=== PATIENT | male | born 1955 | race Caucasian/White ===

== ENCOUNTER → 2018-08-11 06:55 | Outpatient (CLI) | payer OTHER, SELFPAY ==
--- NOTE | 2018-08-11 07:05 | CT_ITS ---
STUDY: LOW DOSE CT LUNG CANCER SCREENING REASON FOR EXAM: Male, 63 years old. Previous smoker. 30 pack year smoking history RADIATION DOSAGE (If Supplied By Facility): CTDIvol = ( 4.02 ) mGy, DLP = ( 146.97 ) mGycm TECHNIQUE: No contrast was administered. Low dose technique was utilized (average mAS-38 and kVp 120). 1.25 mm axial source images with a slice interval of 1.25-mm were reconstructed in lung windows. 2.5 mm axial source images with a slice interval of 2.5-mm were reconstructed in lung windows. 5.0 mm axial source images with a slice interval of 5.0-mm were reconstructed in soft tissue windows. Nodule measured using lung windows on PACS and/or independent workstation with automated measurement of minimum and maximum diameter. Nodule measurement reported as average diameter rounded to the nearest whole number. Growth is defined as an increase ins size of greater than 1.5 mm. COMPARISON: None. NODULES: There is a 2.2 cm x 1.2 cm slightly irregular nodular density in the anterior aspect of the left lower lobe as seen on axial image #202. This abuts the pleural surface. This most likely represents a focal area of scarring. Emphysema: Hyperinflation. Mild degree of emphysematous changes more prominent in the upper lobes. Aorta: Atherosclerotic plaques. Coronary arteries: Coronary artery calcification. Mediastinal nodes: Small mediastinal lymph nodes. Other chest and abdominal findings: Mildly dilated esophagus with the fluid or debris in the mid esophagus. CT/Low Dose CT Lung Screening IMPRESSION: Lung-RADS category 4A - Screening at 3 months with LDCT or evaluation with PET/CT may be used. IMPORTANT NOTES FOR USE: ACR Lung-RADS Version 1.0 Assessment Categories Release Date: November 15, 2013 Category: Coded 0-4 bases on nodule(s) with highest degree of suspicion. Negative screen is defined as categories 1 and 2; a positive screen is defined as categories 3 and 4. Category 3 and 4A nodules that are unchanged on interval CT should be coded as category 2, and individuals returned to screening in 12 months. Category 4X: Category 3 or 4 nodules with additional imaging findings that increase the suspicion of lung cancer, such as spiculation, GGN that doubles in size in 1 year, enlarged lymph notes, etc. Category Modifiers: S (significant finding unrelated to lung cancer) and C (prior history of treated lung cancer) may be added to the 0-4 Lung-RADS Electronically Signed: Pedro Finley MD at 9:40 EST Tel [phone], Service support ,
--- OUTSIDE RECORDS SUMMARY | 2018-10-13 07:10 | XMS RPT_ITS ---
:1955 Author Organization [facility] Care Team Providers Name Role Phone Tee Mahmood Attending Unavailable Tee Mahmood Referring Unavailable LJ TAYLOR Primary Care Unavailable PROBLEMS PROBLEMS No Problem Records FoundPROCEDURES PROCEDURES No Procedure Records FoundRESULTS RESULTS LOW DOSE CT LUNG Observed: 08/11/2018 Status: F Source: [place] SCREENING 7:05 AM [facility] REPOSITORY [facility] Imaging Services [address] [place] [address] Lung Screening MR#: [id number] Acct: [id number] Name: TL ANN Rep #: [id number] : 1955 M 63 From: Pedro Finley MD PCP: Lj Taylor MD Status: [facility] Study: Low Dose CT Lung Screening Date of Exam: 08/11/18 Exam# [id number] Ordering Dr: Tee Mahmood MD STUDY: LOW DOSE CT LUNG CANCER SCREENING REASON FOR EXAM: Male, 63 years old. Previous smoker. 30 pack year smoking history RADIATION DOSAGE (If Supplied By Facility): CTDIvol = ( 4.02 ) mGy, DLP = ( 146.97 ) mGycm TECHNIQUE: No contrast was administered. Low dose technique was utilized (average mAS-38 and kVp 120). 1.25 mm axial source images with a slice interval of 1.25- mm were reconstructed in lung windows. 2.5 mm axial source images with a slice interval of 2.5-mm were reconstructed in lung windows. 5.0 mm axial source images with a slice interval of 5.0-mm were reconstructed in soft tissue windows. Nodule measured using lung windows on PACS and/or independent workstation with automated measurement of minimum and maximum diameter. Nodule measurement reported as average diameter rounded to the nearest whole number. Growth is defined as an increase ins size of greater than 1.5 mm. COMPARISON: None. NODULES: There is a 2.2 cm x 1.2 cm slightly irregular nodular density in the anterior aspect of the left lower lobe as seen on axial image #202. This abuts the pleural surface. This most likely represents a focal area of scarring. Emphysema: Hyperinflation. Mild degree of emphysematous changes more prominent in the upper lobes. Aorta: Atherosclerotic plaques. Coronary arteries: Coronary artery calcification. Mediastinal nodes: Small mediastinal lymph nodes. Other chest and abdominal findings: Mildly dilated esophagus with the fluid or debris in the mid esophagus. CT/Low Dose CT Lung Screening IMPRESSION: Lung-RADS category 4A - Screening at 3 months with LDCT or evaluation with PET/CT may be used. IMPORTANT NOTES FOR USE: ACR Lung-RADS Version 1.0 Assessment Categories Release Date: November 15, 2013 Category: Coded 0-4 bases on nodule(s) with highest degree of suspicion. Negative screen is defined as categories 1 and 2; a positive screen is defined as categories 3 and 4. Category 3 and 4A nodules that are unchanged on interval CT should be coded as category 2, and individuals returned to screening in 12 months. Category 4X: Category 3 or 4 nodules with additional imaging findings that increase the suspicion of lung cancer, such as spiculation, GGN that doubles in size in 1 year, enlarged lymph notes, etc. Category Modifiers: S (significant finding unrelated to lung cancer) and C (prior history of treated lung cancer) may be added to the 0-4 Lung-RADS Electronically Signed: Pedro Finley MD at 9:40 EST Tel [phone], Service support , CC: Tee Mahmood MD; Lj Taylor MD Window Cutter: Signed ALLERGIES ALLERGIES DATE TYPE / CODE NAME / CODE REACTION SEVERITY SOURCE 05/05/2015 Drug Sulfa Rash Unknown [place] [facility] Allergy/416 ([facility] 299784(SNOM Antibiotics)/F[address]) 6274924(RXNORM) 05/05/2015 Drug shellfish Nausea/Vom/Diar Unknown [facility]/416 [id number] [facility] Repository ED CT) ENCOUNTERS ENCOUNTERS ADMIT/DISCHARGE ACCOUNT ADMITTING ENCOUNTER LOCATION SOURCE NUMBER CLASS 08/11/2018 [id number] Ambulatory [facility] [place] 3 [facility] ing:CT Repository PAYERS PAYERS ENCOUNTER GUARANTOR PAYER SUBSCRIBER SOURCE 08/11/2018 TL Martin Primary TL Miller [id number] Insurance:MEDICAL SETHDOB[id number] Number: [place]ository [place] [id number]: [id number] Date:[id number] [address] [address] [address]CU: 08/11/2018 Secondary NOT GIVENUNK [place] Insurance:SELF PAY [facility] Number: Effective Repository Date:2018-07-30
== END ==
PROVIDERS: Family Provider Family Medicine; PCP Family Medicine; Referring Provider Internal Medicine Pulmonary Disease; Visit Provider Internal Medicine Pulmonary Disease
DX: Z87.891 Personal history of nicotine dependence (principal); Z12.2 Encounter for screening for malignant neoplasm of respiratory organs
CPT/HCPCS: G0297

== ENCOUNTER → 2019-02-08 16:47 | Outpatient (CLI) | payer OTHER, SELFPAY ==
--- NOTE | 2019-02-08 16:51 | CT_ITS ---
STUDY: CT CHEST WITHOUT CONTRAST REASON FOR EXAM: Male, 63 years old. Lung nodule follow-up RADIATION DOSAGE (If Supplied By Facility): CTDIvol = ( 18.98 ) mGy, DLP = ( 692.30 ) mGycm TECHNIQUE: Transaxial imaging was performed without the administration of intravenous contrast material. Individualized dose optimization techniques were used for this CT. COMPARISON: 08/11/2018. FINDINGS: Lung windows show underlying emphysema with bleb formation in both upper lobes. Stable appearance of a previously described 2.2 x 1.2 cm irregular nodular density in the anterior aspect of the left lower lobe best seen on axial image 91. No other noncalcified mass or nodule noted. No organized infiltrate. There are scattered interstitial changes in the lung bases. Soft tissue windows show normal-appearing thyroid gland. There are scattered subcentimeter axillary and mediastinal lymph nodes. There are calcified coronary vessels. No pleural or pericardial effusions. There are multi-level degenerative changes of the thoracic spine. Cuts through the upper abdomen show fatty infiltration of the liver without a discrete lesion. CT/Chest without Contrast IMPRESSION: Stable appearance of a 2.2 x 1.2 cm irregular nodule in the anterior segment of the left lower lobe best seen on axial image 91. Another six-month follow-up is recommended to assure stability. No new suspicious mass or nodule. No organized infiltrate or effusion Calcified coronary vessels Degenerative bony changes Fatty liver Electronically Signed: Miles Mosley MD at 7:36 EDT , Service support ,
== END ==
PROVIDERS: Family Provider Family Medicine; PCP Family Medicine; Referring Provider Internal Medicine Pulmonary Disease; Visit Provider Internal Medicine Pulmonary Disease
DX: R91.1 Solitary pulmonary nodule (principal)
CPT/HCPCS: 71250

== ENCOUNTER → 2020-07-13 09:35 | Outpatient (CLI) | payer OTHER, SELFPAY ==
[2015-05-05 07:43] VITALS: BMI 29.0
[2020-07-13 12:05] LABS: Absolute Lymphocyte Count 1.88 X10^3/uL (0.83-4.51); Absolute Neutrophil Count 5.4 X10^3/uL (2.0-7.7); Basophil# 0.02 X10^3/uL; Basophil% 0.3 % (0-1); Eosinophil# 0.11 X10^3/uL; Eosinophils% 1.4 % (0-5); Hematocrit 39.3 % (40-54); Hemoglobin 12.6 g/dL (13.0-16.5); Lymphocyte # 1.88 X10^3/ul (4.0); Lymphocyte % 23.8 % (19-41); Mean Corp Hgb Conc 32.1 g/dL (32-36); Mean Corpuscular Hgb 30.1 pg (27.0-32.0); Mean Corpuscular Volume 93.8 fL (80-94); Monocyte% 6.3 % (0-10); NRBC Flagged by Analyzer 0 % (0-5); Neutrophil # 5.35 X10^3/uL (2.7-7.7); Neutrophil % 67.8 % (47-70); Platelet Count 320 K/mm3 (150-450); RBC Distribution Width CV 14.3 % (11.6-14.6); RBC Distribution Width SD 48.5 fl (35.1-43.9); Red Blood Count 4.19 M/mm3 (4.6-6.2); White Blood Count 7.9 K/mm3 (4.4-11.0)
[2020-07-13 12:11] LABS: ALB/GLOB Ratio 0.9 RATIO (0.9-2.4); AST(SGOT) 23 U/L (15-37); Alanine Aminotransfer ALT/SGPT 37 U/L (16-61); Albumin, Serum 3.6 g/dL (3.2-5.0); Alkaline Phosphatase 58 U/L (45-117); Anion Gap 4 (5-15); BUN 16 mg/dL (7-18); BUN/Creat Ratio 15.7 RATIO (10-20); Calcium,Total 8.7 mg/dL (8.5-10.1); Chloride 109 mmol/L (98-107); Cholesterol 180 mg/dL (200); Creatinine, Serum 1.02 mg/dL (0.70-1.30); EST Glomerular Filtration Rate 77 mL/min (>60); Est Glom Filt Rate - Afr Amer 94 mL/min (>60); Globulin 4.1 g/dL (2.2-4.2); Glucose 89 mg/dL (74-106); High Density Lipoprotein 36 mg/dL; Potassium 4.1 mmol/L (3.5-5.1); Protein, Total 7.7 g/dL (6.4-8.2); Sodium Level 139 mmol/L (136-145); Triglycerides 147 mg/dL; Very Low Density Lipoprotein 29 mg/dL (5-40)
[2020-07-13 12:21] LABS: Microalbumin,Random Urine 19.7 mg/L (NO RANGE EST.); Microalbumin:Creatinine Ratio 10.4 mg/g CRE (<30 mg/g CRE)
[2020-07-17 10:44] LABS: Ferritin 42 ng/mL (26-388)
== END ==
PROVIDERS: PCP Family Medicine; Referring Provider Family Medicine; Visit Provider Family Medicine
DX: I10 Essential (primary) hypertension (principal); K52.9 Noninfective gastroenteritis and colitis, unspecified; D64.9 Anemia, unspecified
CPT/HCPCS: 36415; 80053; 80061; 82043; 82570; 82728; 85025

== ENCOUNTER → 2020-08-24 07:04 | Outpatient (CLI) | payer OTHER, SELFPAY ==
--- NOTE | 2020-08-24 07:09 | CT_ITS ---
STUDY: CT MAXILLOFACIAL SINUSES REASON FOR EXAM: Male, 65 years old. --BENIGN NEOPLASM OF MAXILLARY SINUS RADIATION DOSAGE (If Supplied By Facility): CTDIvol = ( 33.06 ) mGy, DLP = ( 800.79 ) mGycm TECHNIQUE: The patient was scanned in a multi detector CT scanner. High resolution axial imaging was performed without the administration of intravenous contrast material. Sagittal and coronal images were reconstructed. Individualized dose optimization techniques were used for this CT. COMPARISON: None. FINDINGS: Calcified atherosclerotic plaques of the carotid bifurcations bilaterally. FRONTAL SINUSES: Normal aeration, without mucosal inflammatory disease. ETHMOIDAL SINUSES: Partial resection of the ethmoid sinuses with evidence of a partial opacification of the ethmoid sinuses more prominent superiorly. There is also evidence of a 2 cm x 1.8 cm x 1.8 cm rounded soft tissue mass in the superior anterior aspect of the right ethmoid sinus. MAXILLARY SINUSES: There is evidence of prior resection of the medial brown of the maxillary sinuses bilaterally. There is a 2.7 cm x 1.9 cm x 1.8 cm rounded soft tissue mass arising from the medial wall of the right maxillary sinus extending into the right nasal cavity. There is mucosal thickening of both maxillary sinuses. SPHENOIDAL SINUSES: Mucosal thickening of the right sphenoid sinus. There is patency of the bilateral maxillary infundibuli with normal uncinate processes, ethmoid bullae, and hiatus semilunaris. Normal bilateral middle turbinates. Normal bilateral inferior turbinates. There is a left sided nasal septal deviation, but without a nasal septal spur. There is patency of the bilateral nasal airways. The visualized bilateral orbital contents are normal. CT/Sinus/Facial Bone IMPRESSION: 2.7 cm x 1.9 cm 1.8 cm rounded soft tissue mass arising from the medial wall of the right maxillary sinus extending into the right nasal cavity. 2 cm x 1.8 cm x 1.8 cm soft tissue mass in the superior anterior aspect of the right ethmoid sinus. Electronically Signed: Pedro Finley MD at 8:37 EST , Service support ,
== END ==
PROVIDERS: PCP Family Medicine; Referring Provider Otolaryngology; Visit Provider Otolaryngology
DX: D14.0 Benign neoplasm of middle ear, nasal cavity and accessory sinuses (principal)
CPT/HCPCS: 70486

== ENCOUNTER → 2020-09-15 13:00 | Outpatient (CLI) | payer OTHER, SELFPAY ==
--- NOTE | 2020-09-20 09:28 | EKG12_ITS ---
Test Reason : PREOP Blood Pressure : / mmHG Vent. Rate : 073 BPM Atrial Rate : 073 BPM P-R Int : 152 ms QRS Dur : 134 ms QT Int : 434 ms P-R-T Axes : 067 049 068 degrees QTc Int : 478 ms Normal sinus rhythm Left bundle branch block Abnormal ECG Confirmed by YULIA BAY, CLAUS ([id number]), supervising film or videotape editor ANDRADE AVALOS ([id number]) on 09/21/2020 1:04:24 PM Referred By: Zechariah Ramey Confirmed By:CLAUS BENDER MD
[2020-09-20 10:51] LABS: Anion Gap 6 (5-15); BUN 15 mg/dL (7-18); BUN/Creat Ratio 13.2 RATIO (10-20); Calcium,Total 8.9 mg/dL (8.5-10.1); Chloride 108 mmol/L (98-107); Creatinine, Serum 1.14 mg/dL (0.70-1.30); EST Glomerular Filtration Rate 68 mL/min (>60); Est Glom Filt Rate - Afr Amer 82 mL/min (>60); Ferritin 37 ng/mL (26-388); Glucose 92 mg/dL (74-106); Sodium Level 142 mmol/L (136-145)
== END ==
PROVIDERS: PCP Family Medicine; Referring Provider Otolaryngology; Visit Provider Otolaryngology
DX: D14.0 Benign neoplasm of middle ear, nasal cavity and accessory sinuses (principal); D64.9 Anemia, unspecified; Z20.828 Contact with and (suspected) exposure to other viral communicable diseases
CPT/HCPCS: 36415; 80048; 82728; 87426; 93005; C9803

== ENCOUNTER → 2020-10-16 06:46 | Outpatient (CLI) | payer OTHER, SELFPAY ==
[2020-09-27 15:52] VITALS: BMI 34.5
--- NOTE | 2020-10-16 06:47 | ECHOD_ITS ---
Reason For Study: Arrhythmia Left Ventricle Normal LV size. Left ventricular systolic function is normal. The estimated ejection fraction is 55 %. Stage 1 diastolic dysfunction. No regional wall motion abnormalities noted. Right Ventricle Normal RV size. Normal systolic function. Atria Normal left atrium. Normal right atrium. Mitral Valve Normal mitral valve. Tricuspid Valve Normal tricuspid valve. Aortic Valve Normal aortic valve. Pulmonic Valve Normal pulmonic valve. Great Vessels Normal aortic root. The pulmonary artery is normal size. Normal inferior vena cava. Pericardium/Pleural No pericardial effusion. MMode/2D Measurements & Calculations LVIDd: 4.6 cm IVSd: 1.3 cm Ao root diam: 3.2 cm LVIDs: 3.1 cm LVPWd: 1.1 cm RVDd: 4.0 cm FS: 31.1 % LAV(MOD-bp): 58.0 ml LVAd ap4: 30.3 cm2 SV(MOD-sp4): 50.5 ml LAV(MOD-bp) Indexed: 26.1 ml/m2 EDV(MOD-sp4): 91.4 ml LAV(MOD-sp2): 56.4 ml EDV(sp4-el): 93.3 ml LAV(MOD-sp4): 53.6 ml LVAs ap4: 18.4 cm2 ESV(MOD-sp4): 40.9 ml ESV(sp4-el): 40.3 ml EF(MOD-sp4): 55.3 % EF(sp4-el): 56.8 % SV(sp4-el): 53.0 ml LA dimension(2D): 4.1 cm LA A4 area: 18.9 cm2 RA A4 area: 14.3 cm2 Doppler Measurements & Calculations MV E max aly: 85.6 cm/sec Lat Peak E' Aly: 7.6 cm/sec Med Peak E' Aly: 5.4 cm/sec MV A max aly: 102.6 cm/sec E/E' lat: 11.3 E/E' med: 16.0 MV E/A: 0.83 Ao V2 max: 165.6 cm/sec LV V1 max: 103.1 cm/sec PA V2 max: 121.3 cm/sec Ao max P.0 mmHg LV V1 max P.2 mmHg Ao V2 mean: 120.0 cm/sec Ao mean P.2 mmHg Ao V2 VTI: 37.5 cm ECHO/Echo Complete Interpretation Summary Normal LV size. Left ventricular systolic function is normal. The estimated ejection fraction is 55 %. Stage 1 diastolic dysfunction. Ordering Physician: Eric Buenrostro Referring Physician: Zechariah Vasquez Performed By: Hiral Hernandez, THERESA, RVT
--- NOTE | 2020-10-16 16:47 | STRESSREP ---
Stress Test Report Pharmacologic myocardial perfusion stress test. 65-year-old man with a history of left bundle branch block. Stress protocol: Resting EKG demonstrates normal sinus rhythm with a rate of 67 bpm and left bundle branch block noted. Resting blood pressure is 132/86 mmHg. 0.4 mg of regadenoson was infused per usual protocol followed by rapid intravenous saline flush injection continuous EKG monitoring was performed. The maximum heart rate attained was 90 bpm which was 58% of max impacted heart rate the maximum workload was 1 metabolic equivalent. At rest there were no ST or T wave changes noted to suggest abnormal flow reserve and at peak infusion nonspecific ST changes were noted with did not meet the criteria for ischemia. The final blood pressure was 118/80 mmHg. Myocardial perfusion protocol. 14.1 mCi of technetium 99m sestamibi was injected at rest. 0.4 mg of regadenoson was infused per usual protocol. At peak infusion 44.6 mCi of technetium 99m sestamibi was injected stress images were obtained stress and rest images were reconstructed and compared in the short axis vertical long and horizontal long axis. Gated images were also obtained per Perfusion SPECT analysis: Review of the images demonstrate normal uptake of tracer with a defect noted in the inferior wall on the stress images and present also on the rest images to a similar extent. On the stress images as well as the resting images there was normal perfusion noted in all areas namely the anterior wall septum and lateral wall. A previous inferior wall infarct cannot be completely excluded. Gated SPECT analysis: The gated ejection fraction was 49%. Conclusion: Pharmacologic myocardial perfusion stress test with no obvious ischemia noted. Previous inferior infarct cannot be completely excluded. Low normal ejection fraction.
== END ==
PROVIDERS: PCP Family Medicine; Referring Provider Internal Medicine Cardiovascular Disease; Visit Provider Internal Medicine Cardiovascular Disease
DX: Z01.810 Encounter for preprocedural cardiovascular examination (principal); I44.7 Left bundle-branch block, unspecified; R94.31 Abnormal electrocardiogram [ECG] [EKG]
CPT/HCPCS: 78452; 93017; 93306; A9500; A4216; J2785

== ENCOUNTER 2020-11-10 08:49 | Day surgery (SDC) | payer OTHER, SELFPAY ==
[2020-09-27 15:52] VITALS: BMI 34.5
[2020-11-10] VITALS (7 sets, daily range): BP systolic 101–143; BP diastolic 65–77; PULSE 84–99; RESP 16; TEMP 36.2–36.8; O2SAT 92–99; BMI 34.4
--- NOTE | 2020-11-10 | MASS_PTH ---
[id number] U#:[id number] AGE/SX: 65/M ROOM: RE11/10/[address]: Dr. Zechariah Ramey MD : 1955 BED: DIS: 11/10/2020 SPEC #: [id number] RECD: 11/10/20 11:13 STATUS: ARMIDA RE #: [id number] HERBER: 11/10/20 00:[address]: Zechariah Ramey DEPT: SURGICAL PATHOLOGY RECD BY: Marlin Norton ENTERED: 11/10/20 12:27 SP TYPE: Mass OTHR DR: Dr. Zechariah Vasquez MD Tissues: A - Maxilla, NOS B - Skin of face, NOS C - Skin of face, NOS D - Ethmoid sinus, NOS E - Ethmoid sinus, NOS F - LIPOMA OF CORD Procedures: Decalcification bone/plaque Frozen Section (charge) Frozen Section Add'l ([facility]) Surgery Specimen Level III Surgery Specimen Level IV HEADER OPERATION: Maxillectomy, excision lipoma PRE-OP DIAGNOSIS: Benign neoplasm of maxillary sinus; chronic ethmoid sinusitis; lipoma of head and neck; lesion left cheek TISSUE SUBMITTED: A - Right maxillary mass, FS, B - Left cheek lesion, FS, C - New deep margin, FS, D - Right sinus contents, E - Left sinus contents, F - Forehead lipoma FROZEN SECTION DIAGNOSIS A. Right maxillary mass, biopsy: Consistent with benign sinonasal polyp. AM:rohini 11/10/2020 B. Left cheek lesion, biopsy: Basal cell carcinoma. Deep margin is positive for tumor. :rohini 11/10/2020 C. New deep margin: New deep margin is negative for tumor. : 11/10/2020 Case has been reviewed in consultation with Dr. Olivo who concurs with the above diagnosis. IDC:AM MICROSCOPIC DIAGNOSIS A. Right maxillary mass, biopsy: Consistent with benign mucosal polyp. See comment. B. Left cheek lesion, biopsy: Basal cell carcinoma. See comment. C. New deep margin: Focal area of residual basal cell carcinoma. New deep margin is negative for tumor. D. Right sinus contents: Fragments of respiratory mucosa with mild chronic inflammation and bone. E. Left sinus contents: Fragments of respiratory mucosa with mild chronic inflammation and bone. F. Forehead lipoma, biopsy: Mature adipose tissue, consistent with lipoma. :rohini 11/14/2020 COMMENT A. The specimen also shows a portion of bone in the deeper portion of the polyp. B. The tumor is present at the deep resection margin. Case has been reviewed in consultation with Dr. Olivo who concurs with the above diagnosis. IDC:AM MICROSCOPIC DESCRIPTION Slides are reviewed. GROSS DESCRIPTION A - Received fresh for frozen section consultation labeled with the patient's name is a specimen designated right maxillary mass. The specimen consists of a polypoid fragment of glistening, valadez tissue measuring 3.5 x 3.5 x 1.5 cm. Digital Marketing Coordinator sections are submitted for frozen section consultation in two cassettes. The remainder of the specimen is submitted in its entirety in cassettes 3 & 4. / AM: 11/10/20 B - Received fresh for frozen section diagnosis labeled with the patient's name is a specimen designated left cheek lesion. The specimen consists of a piece of valadez-white skin ellipse measuring 1.5 x 0.6 x 0.3 cm. The specimen is inked, serially sectioned and submitted entirely for frozen section diagnosis in one cassette. / SJ: 11/10/20 C - Received fresh for frozen section diagnosis labeled with the patient's name is a specimen designated ink side is the margin, unmarked in deep margin. The specimen consists of a piece of valadez soft tissue measuring 1 x 0.7 x 0.2 cm. The deep margin is inked blue. The specimen is serially sectioned and submitted entirely for frozen section diagnosis in one cassette. / SJ: 11/10/20 D - Received in fixative is one container labeled with the patient's name and designated right sinus contents. The specimen consists of multiple irregular fragments of hemorrhagic soft tissue mixed with fragments of bone that in aggregate measure 4 x 4 x 1.5 cm. Digital Marketing Coordinator tissue is submitted in two cassettes after decalcification. / :rohini 11/13/20 E - Received in fixative is one container labeled with the patient's name and designated left sinus contents. The specimen consists of multiple fragments of hemorrhagic soft tissue mixed with possible fragments of bone that in aggregate measure 4 x 5 x 1 cm. Digital Marketing Coordinator tissue is submitted in two cassettes after short decalcification. / :rohini 11/13/20 F Received in fixative is one container labeled with the patient's name and designated forehead lipoma. The specimen consists of an ovoid piece of valadez-yellow adipose tissue measuring 2.5 x 2 x 0.6 cm. Sections reveal yellow adipose cut surfaces without area of hemorrhage, cystic degeneration or necrosis. The entire specimen is submitted in two cassettes. / SJ:rohini 11/13/20 TC:0 CPT: 36482 x3, 66362 x1, 47681 x5, 97722, 10476 x2
[2020-11-10] MEDS: Lactated Ringers 1,000 ML 100 ML IV (09:32)
[2020-11-10] MEDS: Lidocaine 1% /Epi 1:100 (20ml) 20 ML Vial ×2 (11:00→12:15)
[2020-11-10] MEDS: Oxymetazoline 0.05% 1 SPRAY SPRAY.BTL 15 SPRAY (11:00)
[2020-11-10] MEDS: Lidocaine 4% 50 ML Bottle (11:00)
--- NOTE | 2020-11-10 13:08 | PCM.OPRPT ---
Problem List (1) Chronic ethmoidal sinusitis Status: Chronic (2) Polyp of nasal cavity Status: Acute (3) Chronic maxillary sinusitis Status: Chronic (4) Benign lipomatous neoplasm of skin and subcutaneous tissue of head, face and neck Status: Acute (5) Basal cell carcinoma, face Status: Acute Report of Operation Date of Procedure: 11/10/20 Pre-Operative Diagnosis: Mass of right maxillary sinus, nasal polyps, chronic bilateral ethmoid sinusitis, lipoma right forehead, basal cell carcinoma of left cheek Post-Operative Diagnosis: Same Surgery/Procedure Performed:: Right maxillary antrostomy with tissue removal, bilateral endoscopic total ethmoidectomy with navigational guidance, excision of lipoma 3 x 4 cm of right forehead, excision of basal cell carcinoma of left cheek 1 x 2 cm Description of Surgical Findings:: Heber is a 65-year-old male with a distant history of nasal polyposis who presents with a CT finding showing a bone eroding mass of the right maxillary sinus as well as chronic ethmoid sinus disease. Additionally he was noted to have a lipoma of the right forehead and intraoperative notation of a suspicious skin lesion of the left cheek was noted and permission for excision from his was obtained which proved to be a basal cell carcinoma. Operative treatment was advised for alleviation of his chronic sinus disease as well as evaluation of his destructive sinus mass and he was agreeable to proceed. The risks, alternatives, potential complications, and benefits were discussed at length and any questions answered to the patient and/or caregiver's satisfaction. Witnessed informed consent was obtained in the office, and the patient and/or caregiver was agreeable to proceed. Procedure went as follows: The patient was identified in the preoperative holding and brought to the operating room, was placed under general anesthesia and intubated. When appropriate anesthesia was obtained, the navigational head gear was placed and confirmed to be operational in accordance with the nurse transplant's directions. Pledgets soaked in a 50-50 mixture of oxymetazoline and 4% topical lidocaine were placed to decongest the nasal mucosa. These were then removed and beginning on the left side using a 0? endoscope the nasal cavity examined. The insertion of the middle turbinate and uncinate process was then injected with 1% lidocaine with 100,000 epinephrine for a total of 2 mL, and a similar injection was then carried on the contralateral side. Beginning on the right side the mass obstructing the maxillary sinus ostia was gently freed using a [place] elevator and resected revealing a polypoid mass encompassing the fractured remnant of the middle turbinate and extending into the maxillary sinus ostium producing a 3 x 4 x 2 cm mass that was sent for pathologic evaluation. This was determined to be a benign polyp. During removal there was noted to be a mucocele within the substance of this mass which was evacuated of thick inspissated secretions. Attention was then turned to the left side for the ethmoidectomy. There was noted to be extensive scarring and obstruction of the ostiomeatal complex and the maxillary sinus ostia. Dense fibrotic bone and entrapped polyps were encountered and removed under navigation with the microdebrider. There is no to be obstruction of the frontal nasal recess and this was additionally opened and thick trapped secretions suctioned from the frontal sinus. Pledgets were then placed for hemostasis and attention returned to the right side. There is no to be similar dense sclerosis and polyps involving the ethmoid sinus which was then again opened. There was noted to be an old and healed dehiscence of periorbital fat high along the insertion of the middle turbinate and care was taken to avoid traumatic injury to this area and no operative treatment in this location was performed to reduce the risk of intraorbital hemorrhage. The frontal sinus was again then evaluated and determined to be patent once the inferior scarring and polyps were removed. The middle turbinate had been previously fractured and with scarred with dense sclerosis and this was removed to prevent further obstruction and the posterior vascular supply was then cauterized with suction electrocautery for hemostasis. A seal hemostatic agent was then applied bilaterally completing this portion of the procedure. A new sterile drape was then applied and the planned vision sites of the face were then injected with 1% lidocaine with 1 100,000 epinephrine for a total of 4 mL. Beginning with the suspicious left facial lesion this was then incised excised in an ellipse 1 x 2 cm in size and sent for frozen section evaluation. This revealed a basal cell carcinoma with a involved deep margin and secondary deeper resection was then carried out and confirmed to be negative for deeper disease. Hemostasis achieved with bipolar cautery. The wound was then closed deeply with interrupted 4-0 Vicryl sutures followed by interrupted 5-0 Monocryl to the skin. This completed the resection of the facial skin cancer. Finally the lipoma over the right forehead was then incised in a 4 cm incision. The skin was then undermined in the frontalis muscle transected to allow for visualization of the underlying lipomatous mass. This is noted to be directly over the periosteum and was then dissected from its surrounding capsule producing a large flat lipomatous that was disc-shaped 3 x 4 x 1.5 cm in size. Hemostasis was then achieved through the use of bipolar cautery. The frontalis muscle was then reapproximated with interrupted 4-0 Vicryl sutures as well as the skin. A 5-0 Monocryl subcuticular stitch was then placed followed by benzoin and Steri-Strips completing the closure. An NG tube was then placed to decompress the stomach and the patient returned to anesthesia, revived and extubated having tolerated the procedure well. Type of Anesthesia:: General Anesthesiologist: Percy Pillai Special Medications: none Specimen's removed: sinus mass and contents, skin lesion of face, lipoma of forehead Drains: none Estimated Blood Loss (mL): 400 mL Fluids Replaced: 1200 mL Grafts/Implants Used: none - Complications none - Admit VTE Documentation VTE Present on Admission: No VTE Mechan Device Prophylaxis: SCD's VTE Pharm Prophylaxis ordered?: No
--- NOTE | 2020-11-10 13:23 | DCINST_ITS ---
- Discharge Diagnoses Current Active Problems: Current Active and Chronic Problems (Last Reviewed 09/27/20 @ 16:[address] Eric Buenrostro MD) Chronic ethmoidal sinusitis (Chronic) Polyp of nasal cavity (Acute) Chronic maxillary sinusitis (Chronic) Benign lipomatous neoplasm of skin and subcutaneous tissue of head, face and neck (Acute) Basal cell carcinoma, face (Acute) You will use the following diet at home:: No restrictions Your food should be the consistency of: Regular Discharge Activity: Return to Normal Activity, May not drive while taking narcotic pain medications. Call your doctor if your incision/area has: Sudden Increased Bleeding, Foul Smelling Discharge Call your doctor if you observe: Fever of 101 or Higher, Uncontrolled pain Allergies/Adverse Reactions: Allergies shellfish derived Allergy (Verified 11/10/20 09:24) Nausea/Vom/Diarrhea Medications to take at Discharge Ascorbic Acid [Vitamin C] 2 g PO DAILY 05/05/15 Bisoprol/Hydrochlorothiazide [Ziac 5/6.25 MG Tablet] 1 tab PO DAILY 05/05/15 Multivit-Min/FA/Lycopen/Lutein [Centrum Silver Tablet] 1 ea PO DAILY 05/05/15 Cholecalciferol (Vitamin D3) [Vitamin D3] 2,000 unit PO DAILY 09/15/20 Gabapentin [Neurontin] 600 mg PO BIDCM 09/15/20 Sulfasalazine [Azulfidine] 1,000 mg PO BID 09/15/20 fluticasone fur. 100 mcg-umeclid 62.5 mcg-vilant 25 mcg inhalat.powder 1 ea INHALATION DAILY 09/27/20 Primary Care Physician: Zechariah Vasquez MD [Primary Care Provider] - Test Results: Test results from this visit will be discussed in further detail at your follow- up appointment, if applicable. Please Follow Up With: Zechariah Ramey MD When: 2 weeks
== END 2020-11-10 15:01 | disposition home or self-care (01) ==
LOC: SDC 08:54 → AC 08:59
PROVIDERS: PCP Family Medicine; Referring Provider Otolaryngology; Visit Provider Otolaryngology
PROC: (CPT 11642; principal; 2020-11-10 10:05)
DX: C44.319 Basal cell carcinoma of skin of other parts of face (principal); D14.0 Benign neoplasm of middle ear, nasal cavity and accessory sinuses; J32.2 Chronic ethmoidal sinusitis; D17.0 Benign lipomatous neoplasm of skin and subcutaneous tissue of head, face and neck; K58.0 Irritable bowel syndrome with diarrhea; J30.1 Allergic rhinitis due to pollen; F41.9 Anxiety disorder, unspecified; F32.9 Major depressive disorder, single episode, unspecified; I10 Essential (primary) hypertension; I44.7 Left bundle-branch block, unspecified; Z87.891 Personal history of nicotine dependence; G47.30 Sleep apnea, unspecified; Z79.899 Other long term (current) drug therapy; Z79.51 Long term (current) use of inhaled steroids; J34.1 Cyst and mucocele of nose and nasal sinus
CPT/HCPCS: 11642; 21012; 31255; 31267; 88304; 88305; 88311; 88331; 88332; J7120; J2405

== ENCOUNTER → 2021-01-15 11:30 | Outpatient (CLI) | payer OTHER, SELFPAY ==
[2020-11-10 09:26] VITALS: BMI 34.4
[2021-01-15 15:23] LABS: Absolute Lymphocyte Count 1.58 X10^3/uL (0.83-4.51); Absolute Neutrophil Count 5.4 X10^3/uL (2.0-7.7); Basophil# 0.03 X10^3/uL; Basophil% 0.4 % (0-1); Eosinophil# 0.24 X10^3/uL; Eosinophils% 3.1 % (0-5); Hematocrit 40.5 % (40-54); Hemoglobin 12.5 g/dL (13.0-16.5); Lymphocyte # 1.58 X10^3/ul (0.83-4.51); Lymphocyte % 20.4 % (19-41); Mean Corp Hgb Conc 30.9 g/dL (32-36); Mean Corpuscular Hgb 27.9 pg (27.0-32.0); Mean Corpuscular Volume 90.4 fL (80-94); Mean Platelet Vol. 11.2 fl (6.2-12.0); Monocyte# 0.51 X10^3/uL; Monocyte% 6.6 % (0-10); NRBC Flagged by Analyzer 0 % (0-5); Neutrophil # 5.35 X10^3/uL (2.7-7.7); Neutrophil % 69.2 % (47-70); Platelet Count 290 K/mm3 (150-450); RBC Distribution Width CV 15.3 % (11.6-14.6); RBC Distribution Width SD 51.1 fl (35.1-43.9); Red Blood Count 4.48 M/mm3 (4.6-6.2); White Blood Count 7.7 K/mm3 (4.4-11.0)
[2021-01-15 15:52] LABS: ALB/GLOB Ratio 0.9 RATIO (0.9-2.4); AST(SGOT) 40 U/L (15-37); Alanine Aminotransfer ALT/SGPT 50 U/L (16-61); Albumin, Serum 3.6 g/dL (3.2-5.0); Alkaline Phosphatase 69 U/L (45-117); Anion Gap 7 (5-15); BUN 21 mg/dL (7-18); BUN/Creat Ratio 17.9 RATIO (10-20); Calcium,Total 8.7 mg/dL (8.5-10.1); Chloride 107 mmol/L (98-107); Cholesterol 214 mg/dL (200); Creatinine, Serum 1.17 mg/dL (0.70-1.30); EST Glomerular Filtration Rate 66 mL/min (>60); Est Glom Filt Rate - Afr Amer 80 mL/min (>60); Ferritin 13 ng/mL (26-388); Globulin 4.2 g/dL (2.2-4.2); Glucose 90 mg/dL (74-106); High Density Lipoprotein 42 mg/dL; PSA,Total - Annual Screen 1.08 ng/mL (0.00-4.00); Potassium 4.1 mmol/L (3.5-5.1); Protein, Total 7.8 g/dL (6.4-8.2); Sodium Level 139 mmol/L (136-145); Triglycerides 137 mg/dL; Very Low Density Lipoprotein 27 mg/dL (5-40)
[2021-01-15 16:11] LABS: Hepatitis C Antibody Non-Reactive (Nonreactive); Vitamin B12 424 pg/mL (211-911)
== END ==
PROVIDERS: PCP Family Medicine; Visit Provider Family Medicine
DX: J43.9 Emphysema, unspecified (principal); I10 Essential (primary) hypertension; K52.9 Noninfective gastroenteritis and colitis, unspecified; Z11.59 Encounter for screening for other viral diseases; Z12.5 Encounter for screening for malignant neoplasm of prostate
CPT/HCPCS: 36415; 80053; 80061; 82607; 82728; 84153; 84443; 85025; 86803; G0103

== ENCOUNTER → 2021-02-09 12:51 | Outpatient (CLI) | payer OTHER, SELFPAY ==
[2020-11-10 09:26] VITALS: BMI 34.4
--- NOTE | 2021-02-09 12:58 | CT_ITS ---
STUDY: LOW DOSE CT LUNG CANCER SCREENING REASON FOR EXAM: Male, 65 years old. TOBACCO USE. The patient smoked 1 pack per day for 35 years. RADIATION DOSAGE (If Supplied By Facility): CTDIvol = ( 3.18 ) mGy, DLP = ( 108.01 ) mGycm TECHNIQUE: No contrast was administered. Low dose technique was utilized (average mAS-38 and kVp 120). 1.25 mm axial source images with a slice interval of 1.25-mm were reconstructed in lung windows. 2.5 mm axial source images with a slice interval of 2.5-mm were reconstructed in lung windows. 5.0 mm axial source images with a slice interval of 5.0-mm were reconstructed in soft tissue windows. Nodule measured using lung windows on PACS and/or independent workstation with automated measurement of minimum and maximum diameter. Nodule measurement reported as average diameter rounded to the nearest whole number. Growth is defined as an increase ins size of greater than 1.5 mm. COMPARISON: Comparison is made with prior study dated 02/08/2019. NODULES: No suspicious nodules seen. Emphysema: Hyperinflation. Emphysematous changes. Minimal scarring in the lateral anterior aspect of the lingular segment of the left upper lobe. This is essentially unchanged and most likely represents area of scarring rather than a true nodule. Mild scarring is also seen along the medial aspect of the right middle lobe. Endobronchial lesion: None Aorta: Atherosclerotic plaques. Coronary arteries: Coronary artery calcification. Mediastinal nodes: Small mediastinal benign appearing lymph nodes. Other chest and abdominal findings: CT/Low Dose CT Lung Screening IMPRESSION: Lung-RADS category 2 - Continue annual screening with LDCT in 12 months. IMPORTANT NOTES FOR USE: ACR Lung-RADS Version 1.1 Assessment Categories Release Date: 2018 Category: Coded 0-4 bases on nodule(s) with highest degree of suspicion. Negative screen is defined as categories 1 and 2; a positive screen is defined as categories 3 and 4. Category 3 and 4A nodules that are unchanged on interval CT should be coded as category 2, and individuals returned to screening in 12 months. Category 4X: Category 3 or 4 nodules with additional imaging findings that increase the suspicion of lung cancer, such as spiculation, GGN that doubles in size in 1 year, enlarged lymph notes, etc. Category Modifiers: S (significant finding unrelated to lung cancer) Electronically Signed: Pedro Finley MD at 13:49 EDT , Service support ,
== END ==
PROVIDERS: PCP Family Medicine; Referring Provider Internal Medicine Pulmonary Disease; Visit Provider Internal Medicine Pulmonary Disease
DX: Z87.891 Personal history of nicotine dependence (principal)
CPT/HCPCS: 71271

== ENCOUNTER → 2021-03-21 16:42 | Outpatient (CLI) | payer OTHER, SELFPAY | PROVIDERS: PCP Family Medicine; Visit Provider Family Medicine | DX: Z71.89 Other specified counseling (principal) | CPT/HCPCS: 87635; U0005; U0003 ==

== ENCOUNTER → 2022-02-14 | Outpatient (CLI) | payer MEDICARE, SELFPAY ==
--- NOTE | 2022-02-14 07:47 | CT_ITS ---
STUDY: LOW DOSE CT LUNG CANCER SCREENING REASON FOR EXAM: Male, 66 years old. Z87.891 RADIATION DOSAGE (If Supplied By Facility): CTDIvol = ( 4.02 ) mGy, DLP = ( 140.94 ) mGycm TECHNIQUE: No contrast was administered. Low dose technique was utilized (average mAS-38 and kVp 120). 1.25 mm axial source images with a slice interval of 1.25-mm were reconstructed in lung windows. 2.5 mm axial source images with a slice interval of 2.5-mm were reconstructed in lung windows. 5.0 mm axial source images with a slice interval of 5.0-mm were reconstructed in soft tissue windows. COMPARISON: Comparison is made with prior study dated 02/09/2021. NODULES: No suspicious nodules are seen. Emphysema: Stable linear scar in the right lung apex. Stable minimal linear scarring in the lingular segment of the left upper lobe. Stable linear scarring in the medial anterior aspect of the right middle lobe. Hyperinflation. Emphysematous changes. Endobronchial lesion: None Aorta: Atherosclerotic plaque calcification of the aortic arch is CORONARY ARTERIES: Coronary artery calcification is seen. Heart: Unremarkable Pulmonary artery: Unremarkable Mediastinal nodes: Small benign-appearing mediastinal lymph nodes. Other chest and abdominal findings: CT/Low Dose CT Lung Screening IMPRESSION: Lung-RADS category 2 - Continue annual screening with LDCT in 12 months. IMPORTANT NOTES FOR USE: ACR Lung-RADS Version 1.1 Assessment Categories Release Date: 2018 Category: Coded 0-4 bases on nodule(s) with highest degree of suspicion. Negative screen is defined as categories 1 and 2; a positive screen is defined as categories 3 and 4. Category 3 and 4A nodules that are unchanged on interval CT should be coded as category 2, and individuals returned to screening in 12 months. Category 4X: Category 3 or 4 nodules with additional imaging findings that increase the suspicion of lung cancer, such as spiculation, GGN that doubles in size in 1 year, enlarged lymph notes, etc. Category Modifiers: S (significant finding unrelated to lung cancer) Electronically Signed: Pedro Finley MD at 12:13 EDT ,
== END | disposition home or self-care (01) ==
PROVIDERS: PCP Family Medicine; Referring Provider Internal Medicine Pulmonary Disease; Visit Provider Internal Medicine Pulmonary Disease
DX: Z87.891 Personal history of nicotine dependence (principal)
CPT/HCPCS: 71271

== ENCOUNTER → 2023-01-09 | Outpatient (CLI) | payer MEDICARE, SELFPAY ==
--- NOTE | 2023-01-09 13:40 | RAD_ITS ---
INDICATION: COUGH EXAMINATION/TECHNIQUE: X-RAY - XR Chest 2 Views COMPARISON: FINDINGS: LINES/DEVICES: None. LUNGS: No consolidation. Minimal reticular opacities in the right lung base likely scarring. No pneumothorax. MEDIASTINUM: Aorta is atherosclerotic. CARDIAC SILHOUETTE: Not enlarged. BONES AND SOFT TISSUES: Degenerative changes dorsal spine. RAD/Chest PA and Lateral IMPRESSION: No evidence of active intrathoracic disease. Electronically Signed: Shaneka Eubanks MD at 16:26 EDT ,
== END | disposition home or self-care (01) ==
LOC: MTRAD 13:32
PROVIDERS: PCP Family Medicine; Referring Provider Internal Medicine Pulmonary Disease; Visit Provider Internal Medicine Pulmonary Disease
DX: R05.9 Cough, unspecified (principal)
CPT/HCPCS: 71046

== ENCOUNTER → 2023-01-28 | Outpatient (CLI) | payer MEDICARE, SELFPAY ==
[2023-01-28 17:41] LABS: Hematocrit 44.5 % (40-54); Hemoglobin 13.9 g/dL (13.0-16.5); Mean Corp Hgb Conc 31.2 g/dL (32-36); Mean Corpuscular Hgb 30.3 pg (27.0-32.0); Mean Corpuscular Volume 96.9 fL (80-94); Mean Platelet Vol. 11.1 fl (6.2-12.0); Platelet Count 237 K/mm3 (150-450); RBC Distribution Width CV 15.4 % (11.6-14.6); RBC Distribution Width SD 55.3 fl (35.1-43.9); Red Blood Count 4.59 M/mm3 (4.6-6.2); White Blood Count 11.3 K/mm3 (4.4-11.0)
[2023-01-28 18:18] LABS: ALB/GLOB Ratio 0.9 RATIO (0.9-2.4); AST(SGOT) 93 U/L (15-37); Alanine Aminotransfer ALT/SGPT 188 U/L (16-61); Albumin, Serum 3.4 g/dL (3.2-5.0); Alkaline Phosphatase 54 U/L (45-117); Anion Gap 6 (5-15); BUN 20 mg/dL (7-18); BUN/Creat Ratio 17.7 RATIO (10-20); Calcium,Total 8.4 mg/dL (8.5-10.1); Chloride 107 mmol/L (98-107); Creatinine, Serum 1.13 mg/dL (0.70-1.30); EST Glomerular Filtration Rate 68 mL/min (>60); Est Glom Filt Rate - Afr Amer 83 mL/min (>60); Globulin 3.6 g/dL (2.2-4.2); Glucose 91 mg/dL (74-106); Potassium 4.4 mmol/L (3.5-5.1); Sodium Level 138 mmol/L (136-145); Thyroid Stim Hormone (TSH) 1.87 uIU/mL (0.358-3.74)
== END | disposition home or self-care (01) ==
LOC: MFPLAB 15:14
PROVIDERS: PCP Family Medicine; Visit Provider Family Medicine
DX: I48.91 Unspecified atrial fibrillation (principal)
CPT/HCPCS: 36415; 80053; 83735; 84443; 85027

== ENCOUNTER → 2023-03-20 | Outpatient (CLI) | payer MEDICARE, SELFPAY ==
[2023-03-20 16:33] LABS: ALB/GLOB Ratio 0.8 RATIO (0.9-2.4); AST(SGOT) 36 U/L (15-37); Alanine Aminotransfer ALT/SGPT 44 U/L (16-61); Albumin, Serum 3.3 g/dL (3.2-5.0); Alkaline Phosphatase 61 U/L (45-117); Anion Gap 6 (5-15); BUN 19 mg/dL (7-18); BUN/Creat Ratio 17.3 RATIO (10-20); Calcium,Total 8.7 mg/dL (8.5-10.1); Chloride 109 mmol/L (98-107); EST Glomerular Filtration Rate 70 mL/min (>60); Est Glom Filt Rate - Afr Amer 85 mL/min (>60); Globulin 4.3 g/dL (2.2-4.2); Glucose 88 mg/dL (74-106); Protein, Total 7.6 g/dL (6.4-8.2); Sodium Level 138 mmol/L (136-145)
== END | disposition home or self-care (01) ==
LOC: MFPLAB 13:40
PROVIDERS: PCP Family Medicine; Visit Provider Physician Assistant Medical
DX: I10 Essential (primary) hypertension (principal); I48.0 Paroxysmal atrial fibrillation
CPT/HCPCS: 36415; 80053

== ENCOUNTER → 2023-04-17 | Outpatient (CLI) | payer MEDICARE, SELFPAY ==
--- NOTE | 2023-04-17 07:57 | ECHOD_ITS ---
Reason For Study: LBBB Procedure This was a 2D Doppler, Color Flow transthoracic echocardiogram. Exam performed in department. Left Ventricle Normal LV size. The left ventricular ejection fraction is 40 %. Septal motion consistent with bundle branch block. There is moderate global hypokinesis of the left ventricle. Right Ventricle Normal RV size. Normal systolic function. Atria Normal left atrium. Normal right atrium. Mitral Valve Normal mitral valve. Tricuspid Valve Normal tricuspid valve. Aortic Valve The aortic valve is not well visualized. Pulmonic Valve The pulmonic valve is not well visualized. Great Vessels Normal aortic root. The pulmonary artery is normal size. Normal inferior vena cava. Pericardium/Pleural No pericardial effusion. MMode/2D Measurements & Calculations LVIDd: 5.0 cm IVSd: 1.3 cm Ao root diam: 3.5 cm LVIDs: 3.6 cm LVPWd: 0.91 cm LA dimension: 4.5 cm RVDd: 4.0 cm FS: 27.6 % LAV(MOD-bp): 58.0 ml LA A4 area: 17.6 cm2 RA A4 area: 18.1 cm2 LAV(MOD-bp) Indexed: 25.5 ml/m2 LAV(MOD-sp2): 63.9 ml LAV(MOD-sp4): 47.1 ml Time Measurements MV dec time: 0.14 sec Doppler Measurements & Calculations MV E max aly: 92.5 cm/sec Lat Peak E' Aly: 9.2 cm/sec Med Peak E' Aly: 7.3 cm/sec MV A max aly: 83.2 cm/sec E/E' lat: 10.1 E/E' med: 12.6 MV E/A: 1.1 MV V2 max: 106.1 cm/sec MV P1/2t max aly: 105.1 cm/sec Ao V2 max: 158.5 cm/sec MV max P.5 mmHg MV P1/2t: 49.9 msec Ao max P.0 mmHg MV V2 mean: 63.2 cm/sec MV dec slope: 616.2 cm/sec2 Ao V2 mean: 114.4 cm/sec MV mean P.8 mmHg MVA(P1/2t): 4.4 cm2 Ao mean P.9 mmHg MV V2 VTI: 32.2 cm Ao V2 VTI: 38.9 cm AV (velocity ratio): 0.78 LV V1 max: 131.0 cm/sec PA V2 max: 102.5 cm/sec LV V1 max P.9 mmHg LV V1 mean P.1 mmHg LV V1 mean: 96.3 cm/sec LV V1 VTI: 30.4 cm ECHO/Echo Complete Interpretation Summary Normal LV size. There is moderate global hypokinesis of the left ventricle. The left ventricular ejection fraction is 40 %. Septal motion consistent with bundle branch block. Compared to previous study, the left ventricular systolic function has worsened .. Ordering Physician: Mariangel Rider Referring Physician: Zechariah Vasquez Performed By: Michael Wagner RCS
== END | disposition home or self-care (01) ==
PROVIDERS: PCP Family Medicine; Referring Provider Physician Assistant Medical; Visit Provider Physician Assistant Medical
DX: I44.7 Left bundle-branch block, unspecified (principal); I48.0 Paroxysmal atrial fibrillation
CPT/HCPCS: 93306

== ENCOUNTER → 2023-05-01 | Outpatient (CLI) | payer MEDICARE, SELFPAY ==
[2023-05-01 15:41] LABS: Anion Gap 5 (5-15); BUN 19 mg/dL (7-18); BUN/Creat Ratio 16.4 RATIO (10-20); Calcium,Total 8.8 mg/dL (8.5-10.1); Chloride 105 mmol/L (98-107); Creatinine, Serum 1.16 mg/dL (0.70-1.30); EST Glomerular Filtration Rate 66 mL/min (>60); Est Glom Filt Rate - Afr Amer 80 mL/min (>60); Glucose 100 mg/dL (74-106); Potassium 3.9 mmol/L (3.5-5.1); Sodium Level 137 mmol/L (136-145)
== END | disposition home or self-care (01) ==
LOC: MTLAB 11:57
PROVIDERS: PCP Family Medicine; Referring Provider Physician Assistant Medical; Visit Provider Physician Assistant Medical
DX: I48.0 Paroxysmal atrial fibrillation (principal)
CPT/HCPCS: 36415; 80048

== ENCOUNTER → 2023-10-24 | Outpatient (CLI) | payer MEDICARE, SELFPAY ==
[2023-10-24 15:59] LABS: Erythrocyte Sedimentation Rate 35 mm/hr (0-20)
[2023-10-24 16:01] LABS: Absolute Lymphocyte Count 1.65 X10^3/uL (0.83-4.51); Absolute Neutrophil Count 6.9 X10^3/uL (2.0-7.7); Basophil# 0.03 X10^3/uL; Basophil% 0.3 % (0-1); Eosinophil# 0.26 X10^3/uL; Eosinophils% 2.7 % (0-5); Hemoglobin 13.1 g/dL (13.0-16.5); Lymphocyte # 1.65 X10^3/ul (0.83-4.51); Lymphocyte % 16.9 % (19-41); Mean Corp Hgb Conc 30.5 g/dL (32-36); Mean Corpuscular Hgb 29.3 pg (27.0-32.0); Mean Corpuscular Volume 96.2 fL (80-94); Mean Platelet Vol. 11.2 fl (6.2-12.0); Monocyte# 0.87 X10^3/uL; Monocyte% 8.9 % (0-10); NRBC Flagged by Analyzer 0 % (0-5); Neutrophil # 6.91 X10^3/uL (2.7-7.7); Neutrophil % 70.8 % (47-70); Platelet Count 309 K/mm3 (150-450); RBC Distribution Width CV 14.6 % (11.6-14.6); RBC Distribution Width SD 51.8 fl (35.1-43.9); Red Blood Count 4.47 M/mm3 (4.6-6.2); White Blood Count 9.8 K/mm3 (4.4-11.0)
[2023-10-24 16:38] LABS: ALB/GLOB Ratio 0.9 RATIO (0.9-2.4); AST(SGOT) 32 U/L (15-37); Alanine Aminotransfer ALT/SGPT 41 U/L (16-61); Albumin, Serum 3.6 g/dL (3.2-5.0); Alkaline Phosphatase 49 U/L (45-117); Anion Gap 5 (5-15); BUN 22 mg/dL (7-18); BUN/Creat Ratio 17.7 RATIO (10-20); Chloride 107 mmol/L (98-107); Creatinine, Serum 1.24 mg/dL (0.70-1.30); EST Glomerular Filtration Rate 61 mL/min (>60); Est Glom Filt Rate - Afr Amer 74 mL/min (>60); Glucose 84 mg/dL (74-106); Magnesium 1.9 mg/dL (1.6-2.6); PSA,Total - Annual Screen 0.81 ng/mL (0.00-4.00); Potassium 4.3 mmol/L (3.5-5.1); Protein, Total 7.6 g/dL (6.4-8.2); Sodium Level 138 mmol/L (136-145)
[2023-10-27 09:07] LABS: ANTINUCLEAR ANTIBODIES DIRECT Negative (Negative)
== END | disposition home or self-care (01) ==
LOC: MFPLAB 12:13
PROVIDERS: PCP Family Medicine; Visit Provider Family Medicine
DX: I48.0 Paroxysmal atrial fibrillation (principal); K52.9 Noninfective gastroenteritis and colitis, unspecified; Z12.5 Encounter for screening for malignant neoplasm of prostate
CPT/HCPCS: 36415; 80053; 83735; 84153; 84443; 85025; 85652; 86038; 86140; G0103

== ENCOUNTER → 2024-04-29 | Outpatient (CLI) | payer MEDICARE, SELFPAY ==
[2024-04-29 15:51] LABS: Anion Gap 7 (5-15); BUN 16 mg/dL (7-18); BUN/Creat Ratio 16.9 RATIO (10-20); Calcium,Total 8.9 mg/dL (8.5-10.1); Chloride 107 mmol/L (98-107); Creatinine, Serum 0.94 mg/dL (0.70-1.30); EST Glomerular Filtration Rate 84 mL/min (>60); Est Glom Filt Rate - Afr Amer 101 mL/min (>60); Glucose 93 mg/dL (74-106); Potassium 3.8 mmol/L (3.5-5.1); Sodium Level 137 mmol/L (136-145)
[2024-04-29 18:05] LABS: Absolute Lymphocyte Count 1.38 X10^3/uL (0.83-4.51); Absolute Neutrophil Count 6.8 X10^3/uL (2.0-7.7); Basophil# 0.05 X10^3/uL; Basophil% 0.5 % (0-1); Eosinophil# 0.19 X10^3/uL; Hematocrit 39.2 % (40-54); Hemoglobin 12.1 g/dL (13.0-16.5); Lymphocyte # 1.38 X10^3/ul (0.83-4.51); Lymphocyte % 14.6 % (19-41); Mean Corp Hgb Conc 30.9 g/dL (32-36); Mean Corpuscular Hgb 28.9 pg (27.0-32.0); Mean Corpuscular Volume 93.6 fL (80-94); Mean Platelet Vol. 10.7 fl (6.2-12.0); Monocyte# 0.96 X10^3/uL; Monocyte% 10.1 % (0-10); NRBC Flagged by Analyzer 0 % (0-5); Platelet Count 321 K/mm3 (150-450); RBC Distribution Width CV 14.2 % (11.6-14.6); RBC Distribution Width SD 48.4 fl (35.1-43.9); Red Blood Count 4.19 M/mm3 (4.6-6.2); White Blood Count 9.5 K/mm3 (4.4-11.0)
== END | disposition home or self-care (01) ==
PROVIDERS: PCP Family Medicine; Referring Provider Family Medicine; Visit Provider Family Medicine
DX: J43.9 Emphysema, unspecified (principal); I10 Essential (primary) hypertension
CPT/HCPCS: 36415; 80048; 85025

== ENCOUNTER → 2024-08-12 | Outpatient (CLI) | payer MEDICARE, SELFPAY ==
[2024-08-12 12:26] LABS: ALB/GLOB Ratio 0.7 RATIO (0.9-2.4); AST(SGOT) 27 U/L (15-37); Alanine Aminotransfer ALT/SGPT 34 U/L (16-61); Albumin, Serum 3.3 g/dL (3.2-5.0); Alkaline Phosphatase 48 U/L (45-117); Anion Gap 9 (5-15); BUN 13 mg/dL (7-18); BUN/Creat Ratio 13.4 RATIO (10-20); Calcium,Total 8.5 mg/dL (8.5-10.1); Chloride 102 mmol/L (98-107); Creatinine, Serum 0.97 mg/dL (0.70-1.30); EST Glomerular Filtration Rate 81 mL/min (>60); Est Glom Filt Rate - Afr Amer 98 mL/min (>60); Globulin 4.5 g/dL (2.2-4.2); Glucose 130 mg/dL (74-106); Potassium 3.4 mmol/L (3.5-5.1); Protein, Total 7.8 g/dL (6.4-8.2); Sodium Level 137 mmol/L (136-145)
[2024-08-12 12:38] LABS: Erythrocyte Sedimentation Rate 40 mm/hr (0-20)
[2024-08-12 12:56] LABS: Absolute Lymphocyte Count 1.25 X10^3/uL (0.83-4.51); Absolute Neutrophil Count 12.5 X10^3/uL (2.0-7.7); Basophil# 0.01 X10^3/uL; Basophil% 0.1 % (0-1); Eosinophil# 0.14 X10^3/uL; Eosinophils% 0.9 % (0-5); Hemoglobin 12.4 g/dL (13.0-16.5); Lymphocyte # 1.25 X10^3/ul (0.83-4.51); Lymphocyte % 8.4 % (19-41); Mean Corpuscular Hgb 27.4 pg (27.0-32.0); Mean Corpuscular Volume 88.5 fL (80-94); Mean Platelet Vol. 10.1 fl (6.2-12.0); Monocyte# 0.89 X10^3/uL; NRBC Flagged by Analyzer 0 % (0-5); Neutrophil # 12.45 X10^3/uL (2.7-7.7); Platelet Count 351 K/mm3 (150-450); RBC Distribution Width CV 15.2 % (11.6-14.6); RBC Distribution Width SD 49.3 fl (35.1-43.9); Red Blood Count 4.52 M/mm3 (4.6-6.2); White Blood Count 14.8 K/mm3 (4.4-11.0)
== END | disposition home or self-care (01) ==
LOC: MFPLAB 10:04
PROVIDERS: PCP Family Medicine; Visit Provider Internal Medicine Gastroenterology
DX: K51.90 Ulcerative colitis, unspecified, without complications (principal)
CPT/HCPCS: 36415; 80053; 85025; 85652; 86140

== ENCOUNTER → 2024-08-20 | Outpatient (CLI) | payer MEDICARE, SELFPAY ==
--- NOTE | 2024-08-20 08:00 | CT_ITS ---
PROCEDURE: ABDOMEN/PELVIS WITH CONTRAST REASON FOR EXAM: Diagnosis of ulcerative colitis. TECHNIQUE: Abdomen and pelvis CT with intravenous contrast. Oral contrast was also used. IV CONTRAST: 100 mL of Isovue-300 was injected intravenously. COMPARISON: None. FINDINGS: Lung bases: Clear coronary artery calcification. Liver: Diffuse fatty infiltration. Hepatomegaly. Gallbladder: Unremarkable. Spleen: Unremarkable. Pancreas: Unremarkable. Adrenals: Unremarkable. Kidneys: Unremarkable. Bladder: Unremarkable. Reproductive Organs: Unremarkable. Bowel: Sigmoid colon diverticula with wall thickening and adjacent inflammatory changes. No evidence of perforation or abscess. Small hiatal hernia. Appendix: Normal. Lymph nodes: No suspicious lymph node enlargement. Vasculature: Mild diffuse atherosclerotic calcifications are noted. Peritoneum / Retroperitoneum: No ascites. No free air. Bones: Degenerative changes of the spine. There is evidence of a lower anterior abdominal wall hernia with a neck of the hernia measuring 3.9 cm. Fat is seen within it. CT/Abdomen/Pelvis WITH Contrast IMPRESSION: Fatty infiltration of the liver and hepatomegaly. Inflammatory changes with the diverticulosis seen in the sigmoid colon suggesti ve of acute non complicated sigmoid diverticulitis. One or more dose reduction techniques were used (e.g., Automated exposure contr ol, adjustment of the mA and/or kV according to patient size, use of iterative reconstruction technique). Reading Location: [place] [id number]
== END | disposition home or self-care (01) ==
LOC: CT 07:59
PROVIDERS: PCP Family Medicine; Referring Provider Internal Medicine Gastroenterology; Visit Provider Internal Medicine Gastroenterology
DX: K51.80 Other ulcerative colitis without complications (principal)
CPT/HCPCS: 74177; Q9967

== ENCOUNTER → 2024-10-29 | Outpatient (CLI) | payer MEDICARE, SELFPAY ==
[2024-10-29 17:53] LABS: Absolute Lymphocyte Count 1.23 X10^3/uL (0.83-4.51); Absolute Neutrophil Count 9.3 X10^3/uL (2.0-7.7); Basophil# 0.03 X10^3/uL; Basophil% 0.3 % (0-1); Eosinophil# 0.33 X10^3/uL; Eosinophils% 2.8 % (0-5); Erythrocyte Sedimentation Rate 123 mm/hr (0-20); Hematocrit 40.1 % (40-54); Hemoglobin 12.4 g/dL (13.0-16.5); Lymphocyte # 1.23 X10^3/ul (0.83-4.51); Lymphocyte % 10.3 % (19-41); Mean Corp Hgb Conc 30.9 g/dL (32-36); Mean Corpuscular Hgb 24.9 pg (27.0-32.0); Mean Corpuscular Volume 80.5 fL (80-94); Mean Platelet Vol. 10.8 fl (6.2-12.0); Monocyte# 0.98 X10^3/uL; Monocyte% 8.2 % (0-10); NRBC Flagged by Analyzer 0 % (0-5); Neutrophil # 9.34 X10^3/uL (2.7-7.7); Neutrophil % 78.1 % (47-70); Platelet Count 510 K/mm3 (150-450); RBC Distribution Width CV 16.1 % (11.6-14.6); RBC Distribution Width SD 46.7 fl (35.1-43.9); Red Blood Count 4.98 M/mm3 (4.6-6.2)
[2024-10-29 18:37] LABS: ALB/GLOB Ratio 0.8 RATIO (0.9-2.4); AST(SGOT) 29 U/L (<=37); Alanine Aminotransfer ALT/SGPT 17 U/L (<=46); Albumin, Serum 3.5 g/dL (3.4-4.8); Alkaline Phosphatase 49 U/L (40-129); Anion Gap 14 (5-15); BUN 22 mg/dL (4-19); Calcium,Total 8.9 mg/dL (7.6-11.0); Carbon Dioxide 21.1 mmol/L (21.0-32.0); Chloride 101 mmol/L (98-108); Creatinine, Serum 1.28 mg/dL (0.70-1.20); EST Glomerular Filtration Rate 60 (>60); Globulin 4.3 g/dL (2.2-4.2); Glucose 122 mg/dL (70-99); Lipase 29 U/L (13-75); Potassium 3.9 mmol/L (3.3-5.1); Protein, Total 7.9 g/dL (5.9-8.4); Sodium Level 136 mmol/L (133-145); Thyroid Stim Hormone (TSH) 0.812 uIU/mL (0.300-4.200); Total Bilirubin 0.55 mg/dL (0.00-1.30)
== END | disposition home or self-care (01) ==
PROVIDERS: PCP Family Medicine; Referring Provider Family Medicine; Visit Provider Family Medicine
DX: I48.0 Paroxysmal atrial fibrillation (principal); K50.10 Crohn's disease of large intestine without complications
CPT/HCPCS: 36415; 80053; 83690; 84439; 84443; 85025; 85652; 86140

== ENCOUNTER → 2024-11-04 | Outpatient (CLI) | payer MEDICARE, SELFPAY ==
[2024-11-08 02:07] LABS: Pancreatic Elastase, Fecal 335 (>200)
== END | disposition home or self-care (01) ==
LOC: LABSPEC 10:39
PROVIDERS: PCP Family Medicine; Referring Provider Family Medicine; Visit Provider Family Medicine
DX: R19.7 Diarrhea, unspecified (principal)
CPT/HCPCS: 82653

== ENCOUNTER → 2024-11-11 | Outpatient (CLI) | payer MEDICARE, SELFPAY ==
--- NOTE | 2024-11-11 16:15 | RAD_ITS ---
PROCEDURE: CHEST PA AND LATERAL 11/11/2024 REASON FOR EXAM: COPD TECHNIQUE: Frontal and lateral views of the chest. COMPARISON: 01/09/2023 FINDINGS: Cardiomediastinal silhouette is within normal limits. No focal consolidation, sizeable pleural effusion or pneumothorax. Mild prominence of the basilar interstitial lung markings. Emphysema. RAD/Chest PA and Lateral IMPRESSION: Bibasilar interstitial prominence, similar to prior. Findings may relate to mi ld interstitial edema, interstitial lung disease or less likely an infectious/inflammatory process. Findings could be further a ssessed with CT if indicated. Reading Location: [place]
== END | disposition home or self-care (01) ==
LOC: MTRAD 16:13
PROVIDERS: PCP Family Medicine; Referring Provider Internal Medicine Pulmonary Disease; Visit Provider Internal Medicine Pulmonary Disease
DX: J44.9 Chronic obstructive pulmonary disease, unspecified (principal)
CPT/HCPCS: 71046

== ENCOUNTER → 2024-11-30 | Outpatient (CLI) | payer MEDICARE, SELFPAY ==
[2024-11-30 15:25] LABS: Absolute Lymphocyte Count 1.25 X10^3/uL (0.83-4.51); Absolute Neutrophil Count 14.7 X10^3/uL (2.0-7.7); Basophil# 0.02 X10^3/uL; Basophil% 0.1 % (0-1); Eosinophil# 0.01 X10^3/uL; Eosinophils% 0.1 % (0-5); Hematocrit 40.4 % (40-54); Hemoglobin 12.3 g/dL (13.0-16.5); Lymphocyte # 1.25 X10^3/ul (0.83-4.51); Lymphocyte % 7.6 % (19-41); Mean Corp Hgb Conc 30.4 g/dL (32-36); Mean Corpuscular Hgb 24.6 pg (27.0-32.0); Monocyte# 0.39 X10^3/uL; Monocyte% 2.4 % (0-10); NRBC Flagged by Analyzer 0 % (0-5); Neutrophil # 14.68 X10^3/uL (2.7-7.7); Neutrophil % 89.3 % (47-70); POSITIVE MORPHOLOGY YES; Platelet Count 340 K/mm3 (150-450); RBC Distribution Width CV 21.6 % (11.6-14.6); RBC Distribution Width SD 58.6 fl (35.1-43.9); Red Blood Count 4.99 M/mm3 (4.6-6.2); White Blood Count 16.4 K/mm3 (4.4-11.0)
[2024-11-30 15:51] LABS: Differential Indicated SCAN CRITERIA MET
[2024-11-30 15:53] LABS: ALB/GLOB Ratio 1.1 RATIO (0.9-2.4); AST(SGOT) 39 U/L (<=37); Alanine Aminotransfer ALT/SGPT 42 U/L (<=46); Albumin, Serum 3.4 g/dL (3.4-4.8); Alkaline Phosphatase 63 U/L (40-129); Anion Gap 15 (5-15); BUN 38 mg/dL (4-19); BUN/Creat Ratio 31.7 RATIO (10-20); Calcium,Total 9.4 mg/dL (7.6-11.0); Carbon Dioxide 23.4 mmol/L (21.0-32.0); Chloride 104 mmol/L (98-108); EST Glomerular Filtration Rate 65 (>60); Glucose 133 mg/dL (70-99); Magnesium 1.7 mg/dL (1.5-2.2); Pro- Brain NATRIURETIC PEPTIDE 8363 pg/mL (<=900); Protein, Total 6.4 g/dL (5.9-8.4); Sodium Level 142 mmol/L (133-145); Total Bilirubin 0.63 mg/dL (0.00-1.30)
[2024-11-30 17:15] LABS: Anisocytosis 1+; Platelet Estimate A (ADEQ); Polychromasia 1+
[2024-12-02 12:08] LABS: CRP, High Sensitivity 32.52 mg/L (0.00-3.00)
== END | disposition home or self-care (01) ==
LOC: MTLAB 13:39
PROVIDERS: PCP Family Medicine; Referring Provider Family Medicine; Visit Provider Family Medicine
DX: I50.811 Acute right heart failure (principal); R60.0 Localized edema
CPT/HCPCS: 36415; 80053; 83735; 83880; 84443; 85025; 86141

== ENCOUNTER 2024-12-13 17:39 | Inpatient (IN) | payer MEDICARE, SELFPAY ==
[2024-12-13] VITALS (22 sets, daily range): BP systolic 93–126; BP diastolic 59–111; PULSE 117–153; RESP 16–34; TEMP 36.7–36.8; O2SAT 88–98; BMI 32.5
--- NOTE | 2024-12-13 17:50 | EKG12_ITS ---
Test Reason : AFIB Blood Pressure : */* mmHG Vent. Rate : 138 BPM Atrial Rate : * BPM P-R Int : * ms QRS Dur : 130 ms QT Int : 334 ms P-R-T Axes : * 78 225 degrees QTcB Int : 506 ms Atrial fibrillation with rapid ventricular response Non-specific intra-ventricular conduction block T wave abnormality, consider inferior ischemia Abnormal ECG Confirmed by Basil Hunter ([id number]), film editor CARTER AKINS ([id number]) on 12/20/2024 12:58:14 PM Referred By: Confirmed By: Basil Hunter
--- NOTE | 2024-12-13 17:51 | CT_ITS ---
PROCEDURE: CTA ABD/PELVIS W/WO CONTRAST 12/13/2024 REASON FOR EXAM: ABD PAIN TECHNIQUE: CTA imaging of the abdomen and pelvis with intravenous contrast. Multiplanar and multisequence images were obtained. 3D post processing was performed CONTRAST: Isovue 370 VOLUME: 100 cc mL Not Provided Gauge IV One or more dose reduction techniques were used (e.g., Automated exposure control, adjustment of the mA and/or kV according to patient size, use of iterative reconstruction technique). RADIATION DOSE SUMMARY: CTDlvol: 72 mGy DLP: 1242 mGycm COMPARISON: CT of the abdomen and pelvis dated 08/20/2024 FINDINGS: Aorta: Mild mixed calcified and soft plaque identified. No abdominal aortic aneurysm. Iliac Arteries: Scattered atherosclerotic plaque. No aneurysm or significant stenosis. Celiac: Normal. SMA: Mild mixed calcified and soft plaque identified. ABHAY : Normal. Right Renal: Mild mixed calcified and soft plaque identified. Left Renal: Mild mixed calcified and soft plaque identified. Other Findings: The liver, gallbladder, spleen, pancreas, bilateral adrenal glands and bilateral kidneys are grossly unremarkable. Urinary bladder and prostate gland are grossly unremarkable. Evaluation of the bowel loops are limited due to lack of oral contrast. Stomach is unremarkable. There is focal wall thickening of the proximal small bowel within the left mid abdomen with subtle adjacent stranding. Sigmoid diverticulosis with focal wall thickening and adjacent stranding, consistent with acute sigmoid diverticulitis. There is a adjacent air-fluid collection measuring approximately 3.9 x 4 cm in size, concerning for an abscess. This is best appreciated on series 2, image number 124. There is a small fat and fluid containing umbilical hernia. There are multilevel degenerative changes at the spine. CT/CTA Abd/Pelvis W/WO Contrast IMPRESSION: No evidence of abdominal aortic aneurysm or dissection. Acute sigmoid diverticulitis with an adjacent 4 cm abscess formation. Colonosc opy is recommended upon resolution to exclude malignancy. Prominent loop of proximal small bowel within the left abdomen with subtle wall thickening and adjacent stranding, this may represent reactive inflammation secondary to acute sigmoid diverticulitis versu s superimposed enteritis. Partial obstruction can not be completely excluded. Small fluid and fat containing umbilical hernia, similar in appearance to the p rior study. Red Alert: Acute sigmoid diverticulitis with abscess formation. The critical information above was relayed directly by me by telephone to Jesús Frances on 12/13/2024 at 7:29 pm with readback verification. Reading Location: [facility]
[2024-12-13] MEDS: Ondansetron 4 MG/2 ML Vial IV (17:56)
[2024-12-13] MEDS: HYDROmorphone 1 MG/ML Syringe IV (17:57)
[2024-12-13] MEDS: Metoprolol Tartrate 5 MG/5 ML Vial IV ×3 (17:58→18:18)
[2024-12-13] MEDS: 0.9% Normal Saline (500mL Bag) 500 ML 1000 ML IV (17:59)
[2024-12-13 18:14] LABS: Absolute Lymphocyte Count 1.89 X10^3/uL (0.83-4.51); Absolute Neutrophil Count 8.5 X10^3/uL (2.0-7.7); Basophil# 0.04 X10^3/uL; Basophil% 0.4 % (0-1); Eosinophil# 0.11 X10^3/uL; Hemoglobin 15.1 g/dL (13.0-16.5); Lymphocyte # 1.89 X10^3/ul (0.83-4.51); Lymphocyte % 16.7 % (19-41); Mean Corp Hgb Conc 30.2 g/dL (32-36); Mean Corpuscular Hgb 24.8 pg (27.0-32.0); Mean Platelet Vol. 10.4 fl (6.2-12.0); Monocyte# 0.75 X10^3/uL; Monocyte% 6.6 % (0-10); NRBC Flagged by Analyzer 0 % (0-5); Neutrophil # 8.46 X10^3/uL (2.7-7.7); Neutrophil % 74.8 % (47-70); POSITIVE MORPHOLOGY YES; Platelet Count 444 K/mm3 (150-450); RBC Distribution Width CV 21.9 % (11.6-14.6); RBC Distribution Width SD 61.8 fl (35.1-43.9); White Blood Count 11.3 K/mm3 (4.4-11.0)
--- NOTE | 2024-12-13 18:22 | ED.VIS.GI ---
HPI HPI - GI History of Present Illness Chief Complaint: Abd Pain Informant: patient and EMS Narrative Narrative: Presents worsening generalized abdominal pain for the past 3 hours. Nausea without vomiting. Had a bowel movement during this time that was normal. Denies fevers. Status post fentanyl by EMS pain still an 8. He denies any abdominal surgeries. Has known abdominal hernia followed by his PCP. He has not been referred to surgery. Has history of atrial fibrillation followed by electrophysiology in [place]. He is on Eliquis twice a day with compliance. He states this past week had cardioversion which lasted for 2 days. He does not feel the palpitations or racing heart. Denies lightheaded symptoms. He is on metoprolol. Denies chest pains or shortness of breath. Denies any back pain. Prior similar symptoms: No PFSH PFSH Medical History PAF (paroxysmal atrial fibrillation) Emphysema/COPD Obstructive sleep apnea Depression Essential (primary) hypertension Obesity Benign neoplasm of maxillary sinus Left bundle branch block (LBBB) Home Medications ?Medication ?Instructions ?Recorded ?Last Taken ?Type ascorbic acid (vitamin C) 500 mg 2 gm PO DAILY general health 05/05/15 05/04/15 08:00 History tablet fluticasone fur. 100 mcg-umeclid 1 ea inhalation DAILY breathing 09/27/20 Unknown History 62.5 mcg-vilant 25 mcg inhalat.powder apixaban 5 mg tablet (Eliquis) 5 mg PO BID blood thinner 03/20/23 Unknown History albuterol sulfate 2.5 mg/3 mL 2.5 mg inhalation TID PRN PRN 12/13/24 Unknown History (0.083 %) solution for nebulization bronchospasm balsalazide 750 mg capsule 2,250 mg PO TID ULCERATIVE COLITIS 12/13/24 Unknown History dofetilide 250 mcg capsule 250 mcg PO Q12H heart 12/13/24 12/13/24 09:00 History ipratropium bromide 21 mcg (0.03 1 - 2 spray intranasal Q6H PRN PRN 12/13/24 Unknown History %) nasal spray allergy symptoms metoprolol succinate 50 mg 50 mg PO Q12H blood pressure 12/13/24 Unknown History tablet,extended release 24 hr potassium chloride 20 mEq 40 meq PO DAILY potassium 12/13/24 Unknown History tablet,extended release(part/cryst) (Klor-Con M) sacubitril 24 mg-valsartan 26 mg 1 tab PO Q12.TCU heart 12/13/24 Unknown History tablet (Entresto) spironolactone 25 mg tablet 25 mg PO DAILY diuretic 12/13/24 Unknown History Allergy/AdvReac Type Severity Reaction Status Date / Time shellfish derived Allergy Nausea/Vom/ Verified 12/13/24 17:40 Diarrhea Family History Father Hypertension Colon cancer Mother Breast cancer Social History Smoking Status: Former smoker quit date: 07/21/06 pack-years: 30 alcohol intake: current alcohol intake frequency: holidays/special occasions only ROS ROS ED Constitutional Constitutional ED: Denies chills, fever(s) or sweats ENT ENT ED: Denies sore throat Cardiovascular Cardiovascular: Denies chest pain, leg edema, palpitations or racing heartbeat Respiratory/Chest Respiratory/Chest: Denies cough, dyspnea or dyspnea on exertion Gastrointestinal Gastrointestinal: Reports abdominal pain and nausea; Denies diarrhea or vomiting Genitourinary Genitourinary ED: Denies dysuria, hematuria or urinary frequency Musculoskeletal Musculoskeletal: Denies back pain, extremity pain or neck pain Integumentary Denies rash or wounds Neurologic Neurologic: Denies headache(s), paresthesias or weakness EXAM Physical Exam Const Vital Signs: 12/13/24 17:40 12/13/24 17:46 12/13/24 18:21 Temperature 98.3 F 98.3 F Temperature Source Oral Oral Pulse Rate 137 H 145 H 136 H Respiratory Rate 18 16 Blood Pressure 117/103 H 126/111 H Blood Pressure Mean 107 116 Pulse Ox 97 Oxygen Delivery Method Room Air Oxygen Flow Rate (L/min) 12/13/24 18:35 12/13/24 18:41 12/13/24 18:42 Temperature Temperature Source Pulse Rate 149 H 120 H Respiratory Rate 27 H Blood Pressure 114/89 H 114/89 H Blood Pressure Mean 97 97 Pulse Ox 88 95 Oxygen Delivery Method Room Air Nasal Cannula Oxygen Flow Rate (L/min) 2 12/13/24 18:43 12/13/24 18:59 12/13/24 19:29 Temperature 98.3 F 98.3 F Temperature Source Oral Oral Pulse Rate 117 H 134 H 142 H Respiratory Rate 27 H 17 22 H Blood Pressure 114/89 H 106/82 H 108/77 Blood Pressure Mean 97 90 87 Pulse Ox 95 98 97 Oxygen Delivery Method Nasal Cannula Room Air Oxygen Flow Rate (L/min) 2 2 12/13/24 20:00 12/13/24 20:06 Temperature 98.3 F Temperature Source Oral Pulse Rate 128 H 147 H Respiratory Rate 25 H 19 H Blood Pressure 109/86 H 109/86 H Blood Pressure Mean 93 93 Pulse Ox 97 Oxygen Delivery Method Room Air Oxygen Flow Rate (L/min) Positive well nourished and well developed Constitutional Narrative: Uncomfortable nontoxic. General Appearance ED: well developed HEENT Reports moist mucous membranes normocephalic and atraumatic Eyes General Eye ED: Yes normal appearance of both eyes Neck full ROM Chest Wall Chest: Negative for tenderness Resp normal respiratory effort and normal air movement Effort and Inspection: symmetric chest movement; Negative for respiratory distress Cardio no murmurs Rate: tachycardic Rhythm: abnormal rhythm Peripheral Pulses: pulses 2+ throughout GI normal to inspection, nondistended, normoactive bowel sounds GI Narrative: Generalized abdominal tenderness however seem to be more tender on the left side. There is a reducible umbilical hernia. Palpation: Negative for guarding or rebound tenderness present Extremity normal to inspection General Extremety ED: Negative for edema or tenderness General Extremity: Negative for edema Neuro oriented x3 and no sensory deficits noted Sensorium / Orientation: awake and alert Skin no rashes or lesions noted and no wounds MDM MDM MDM Narrative Medical decision making narrative: Interventions / MDM: Differential diagnosis: Complicated diverticulitis with abscess, A-fib with RVR, abdominal pain Diagnosis considered but do not suspect: Abdominal vascular occlusion however CT negative. Incarcerated hernia however CT negative. My EKG interpretation: A-fib RVR rate of 138, no ST changes. Imaging independently reviewed and interpreted by myself: CT angiogram abdomen pelvis: Acute complicated diverticulitis left lower quadrant with a 4 cm abscess and discussed with radiology. Fat-containing hernia. Reports some small bowel enteritis. No occlusion or dissection of the arteries. This was in discussion with radiology. External documents reviewed: CT abdomen pelvis July 2024 outpatient reported diverticulitis. Per patient and family ordered by GI Dr. Sevilla secondary to inability to complete colonoscopy. They suspected ulcerative colitis and not infectious. No pain at that time. He is treated with steroids. Since then intermittently been on steroids last till yesterday for pulmonary issue. Test considered but not ordered:N/A ED course: Patient A-fib RVR is asymptomatic with his no lightheaded symptoms. Compliant with his Eliquis. But sudden severe generalized abdominal pain. IV established IV Dilaudid Zofran ordered with fluids. IV Lopressor up to 3 doses also ordered for his RVR. He sent directly to CT for angiogram to rule out any thrombus. 1824: After 3 doses Lopressor per nursing heart rate still 130s. Blood pressure 120 systolic. Will dose with IV Cardizem bolus plan for drip if needed. Pain is improving per nursing. 1854: Pain is improving currently seems more in left lower quadrant. After Cardizem bolus heart rate 110s to 130s. Systolic pressure 106. I will order a Cardizem drip. Labs white count 11.3 normal lipase normal liver enzymes. Creatinine 1.41. Fluids were given. Lactic acid pending. CT results are pending. 1929: Lactic acid returned at 2.0. CT and discussed with radiologist concerns for complicated diverticulitis 4 cm abscess no perforations. Fat-containing abdominal hernia. No occlusion or dissection of the vessels. Zosyn will be ordered. 1947: I spoke with on-call surgeon Dr. Harris, discussed patient's history and findings. Discussed his A-fib with RVR on blood thinners. He reports admission to medicine plan on a drain tube when he is more stable and can be off anticoagulants. At this time with his RVR, agrees to start heparin drip and hold Eliquis at this time for planning. He will see him in the morning as a consult. Will discuss with hospitalist for admission. 1999: I spoke with hospitalist Dr. Hester updated. Patient be admitted to ICU. 2034: Awaiting transfer up to ICU. Nursing reporting patient want something to relax. I will order him 1 mg of IV Ativan. Re-evaluation: stable Disposition discussed with patient/family/significant other: Patient and family Case discussed with consulting clinician: General Surgery, hospitalist This note was generated with [employer]be[employer] software. It may contain incorrect words, spelling, and punctuation that were not noted in checking the note before signing. Lab Data Attestation: I reviewed the patient's lab results. Labs: Laboratory Results - last 24 hr 12/13/24 12/13/24 12/13/24 17:47 18:30 20:00 WBC 11.3 H RBC 6.10 Hgb 15.1 Hct 50.0 MCV 82.0 MCH 24.8 L MCHC 30.2 L RDW Std Deviation 61.8 H RDW Coeff of Sea 21.9 H Plt Count 444 MPV 10.4 Immature Gran % (Auto) 0.500 Neut % (Auto) 74.8 H Lymph % (Auto) 16.7 L [place] % (Auto) 6.6 Eos % (Auto) 1.0 Baso % (Auto) 0.4 Absolute Neuts (auto) 8.5 H Absolute Lymphs (auto) 1.89 Nucleated RBC % 0 Platelet Estimate SLT INC Anisocytosis 2+ PT 14.6 INR 1.1 APTT 30.7 Sodium 140 Potassium 4.8 Chloride 101 Carbon Dioxide 24.4 Anion Gap 15 BUN 36 H Creatinine 1.41 H Est GFR (MDRD) Non-Af 53 L BUN/Creatinine Ratio 25.2 H Glucose 133 H Lactic Acid 2.0 Calcium 10.4 Total Bilirubin 0.66 AST 30 ALT 29 Alkaline Phosphatase 61 Total Protein 7.5 Albumin 3.8 Globulin 3.7 Albumin/Globulin Ratio 1.0 Lipase 25 Radiography Diagnostic Testing: Clinical Impression(s) from Imaging Studies Abdomen/Pelvis CTA 12/13/24 17:51 IMPRESSION: No evidence of abdominal aortic aneurysm or dissection. Acute sigmoid diverticulitis with an adjacent 4 cm abscess formation. Colonoscopy is recommended upon resolution to exclude malignancy. Prominent loop of proximal small bowel within the left abdomen with subtle wall thickening and adjacent stranding, this may represent reactive inflammation secondary to acute sigmoid diverticulitis versus superimposed enteritis. Partial obstruction can not be completely excluded. Small fluid and fat containing umbilical hernia, similar in appearance to the prior study. Red Alert: Acute sigmoid diverticulitis with abscess formation. The critical information above was relayed directly by me by telephone to Oswaldo Frances on 12/13/2024 at 7:29 pm with readback verification. 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
[2024-12-13 18:26] LABS: Differential Indicated SCAN CRITERIA MET
[2024-12-13 18:30] LABS: AST(SGOT) 30 U/L (<=37); Alanine Aminotransfer ALT/SGPT 29 U/L (<=46); Albumin, Serum 3.8 g/dL (3.4-4.8); Alkaline Phosphatase 61 U/L (40-129); Anion Gap 15 (5-15); BUN 36 mg/dL (4-19); BUN/Creat Ratio 25.2 RATIO (10-20); Calcium,Total 10.4 mg/dL (7.6-11.0); Carbon Dioxide 24.4 mmol/L (21.0-32.0); Chloride 101 mmol/L (98-108); Creatinine, Serum 1.41 mg/dL (0.70-1.20); EST Glomerular Filtration Rate 53 (>60); Globulin 3.7 g/dL (2.2-4.2); Glucose 133 mg/dL (70-99); Lipase 25 U/L (13-75); Potassium 4.8 mmol/L (3.3-5.1); Protein, Total 7.5 g/dL (5.9-8.4); Sodium Level 140 mmol/L (133-145); Total Bilirubin 0.66 mg/dL (0.00-1.30)
[2024-12-13] MEDS: dilTIAZem 25 MG/5 ML Vial 20 MG IV BOLUS (18:32)
[2024-12-13 19:15] LABS: Anisocytosis 2+; Platelet Estimate SLT INC (ADEQ)
[2024-12-13] MEDS: Diltiazem 125 MG in Dextrose 5%-Water (100mL Bag) 100 ML IV (19:29)
[2024-12-13] MEDS: Piperacil/Tazobactam 4.5 GM in 0.9% Normal Saline (100mL MB+) 100 ML IV (20:04)
[2024-12-13] MEDS: 0.9% Normal Saline (1000mL) 1,000 ML 100 ML IV (20:04)
--- NOTE | 2024-12-13 20:06 | ED.RN ---
Unable to obtain patient weight d/t bed not working. Pharmacy called and asked for weight on pt for medication reasons, Dr. Frances stated to this RN that we can use patient's estimated weight d/t bed not working and patient weighing himself this morning.
--- NOTE | 2024-12-13 20:17 | PCM.HP.STD ---
HPI - General General Date of Admission: 12/13/24 Date of Service: 12/13/24 Chief Complaint: abdominal pain HPI Narrative TL ANN, is a 69 M who presents to the emergency room with chief complaint of left lower quadrant abdominal pain. Patient states it was the worst pain he has experienced. Patient has a recent past medical history of new onset atrial fibrillation and was in sinus rhythm for 2 days after this but is now in atrial fibrillation with rapid ventricular response. Patient admits to having nausea but no vomiting and has had a normal bowel movement earlier today his last oral intake was a hamburger earlier in the day. He states the onset of abdominal pain began around 1:00 this afternoon and has gotten worse since and he came to the emergency room for further evaluation. CT scan reveals a diverticulitis with a [address] Ford was consulted by ER physician and plans to do a drain procedure. Patient will be admitted to the intensive care unit for diverticulitis with abscess and atrial fibrillation with RVR. Currently pain is controlled after receiving Dilaudid in the emergency room and is on Cardizem drip and heparin drip. [facility] Medical History PAF (paroxysmal atrial fibrillation) Emphysema/COPD Obstructive sleep apnea Depression Essential (primary) hypertension Obesity Benign neoplasm of maxillary sinus Left bundle branch block (LBBB) Home Medications ?Medication ?Instructions ?Recorded ?Last Taken ?Type ascorbic acid (vitamin C) 500 mg 2 gm PO DAILY 05/05/15 05/04/15 08:00 History tablet tnzxcspw-[id number] acid 0.4 1 ea PO DAILY 05/05/15 05/04/15 08:00 History mg-lycopene 300 mcg-lutein 250 mcg tablet cholecalciferol (vitamin D3) 50 2,000 unit PO DAILY 09/15/20 Unknown History mcg (2,000 unit) capsule gabapentin 600 mg tablet 600 mg PO BIDCM 09/15/20 11/10/20 06:00 History sulfasalazine 500 mg tablet 1,000 mg PO BID IBS 09/15/20 Unknown History fluticasone fur. 100 mcg-umeclid 1 ea inhalation DAILY 09/27/20 Unknown History 62.5 mcg-vilant 25 mcg inhalat.powder apixaban 5 mg tablet (Eliquis) mg PO 03/20/23 Unknown History hydrochlorothiazide 12.5 mg tablet mg PO 03/20/23 Unknown History metoprolol tartrate 100 mg tablet mg PO 03/20/23 Unknown History Allergy/AdvReac Type Severity Reaction Status Date / Time shellfish derived Allergy Nausea/Vom/ Verified 12/13/24 17:40 Diarrhea Family History Father Hypertension Colon cancer Mother Breast cancer Social History Smoking Status: Former smoker quit date: 07/21/06 pack-years: 30 alcohol intake: current alcohol intake frequency: holidays/special occasions only ROS Constitutional Constitutional: Denies chills or fever(s) Eyes Eyes: Denies blurry vision ENT HEENT: Denies abnormal hearing Cardiovascular Cardiovascular: Denies chest pain Respiratory/Chest Respiratory/Chest: Reports shortness of breath with exertion Gastrointestinal Gastrointestinal: Reports abdominal pain and nausea; Denies constipation, diarrhea or vomiting Genitourinary Genitourinary: Denies dysuria Musculoskeletal Musculoskeletal: Denies back pain Integumentary Integumentary: Denies jaundice Neurologic Neurologic: Denies abnormal gait Psychiatric Psychiatric: Denies anxiety Vital Signs Vital Signs Vital Signs: 12/13/24 17:40 12/13/24 17:46 12/13/24 18:21 Temperature 98.3 F 98.3 F Temperature Source Oral Oral Pulse Rate 137 H 145 H 136 H Respiratory Rate 18 16 Blood Pressure 117/103 H 126/111 H Blood Pressure Mean 107 116 Pulse Ox 97 Oxygen Delivery Method Room Air Oxygen Flow Rate (L/min) 12/13/24 18:35 12/13/24 18:41 12/13/24 18:42 Temperature Temperature Source Pulse Rate 149 H 120 H Respiratory Rate 27 H Blood Pressure 114/89 H 114/89 H Blood Pressure Mean 97 97 Pulse Ox 88 95 Oxygen Delivery Method Room Air Nasal Cannula Oxygen Flow Rate (L/min) 2 12/13/24 18:43 12/13/24 18:59 12/13/24 19:29 Temperature 98.3 F 98.3 F Temperature Source Oral Oral Pulse Rate 117 H 134 H 142 H Respiratory Rate 27 H 17 22 H Blood Pressure 114/89 H 106/82 H 108/77 Blood Pressure Mean 97 90 87 Pulse Ox 95 98 97 Oxygen Delivery Method Nasal Cannula Room Air Oxygen Flow Rate (L/min) 2 2 12/13/24 20:00 12/13/24 20:06 Temperature 98.3 F Temperature Source Oral Pulse Rate 128 H 147 H Respiratory Rate 25 H 19 H Blood Pressure 109/86 H 109/86 H Blood Pressure Mean 93 93 Pulse Ox 97 Oxygen Delivery Method Room Air Oxygen Flow Rate (L/min) Physical Exam Const oriented x3 General Appearance: cooperative and well developed HEENT normocephalic and head/scalp atraumatic Eyes PERRL Neck no lymphadenopathy Lymph Lymphatic: no lymphadenopathy noted Resp normal respiratory effort, normal air movement and clear to auscultation bilaterally Cardio S1 normal heart sound and S2 normal heart sound Rate: tachycardic Rhythm: abnormal rhythm irregularly irregular GI Inspection: abdominal distention Palpation: tender LLQ Extremity normal capillary refill Skin General Skin Exam: turgor normal Neuro CN's II-XII intact bilaterally, no focal motor deficits and no sensory deficits noted Psych cooperative and affect normal Results Lab / Micro Data 12/13/24 17:47 12/13/24 17:47 Labs: Laboratory Results - last 24 hr 12/13/24 17:47: WBC 11.3 H, RBC 6.10, Hgb 15.1, Hct 50.0, MCV 82.0, MCH 24.8 L, MCHC 30.2 L, RDW Std Deviation 61.8 H, RDW Coeff of Sea 21.9 H, Plt Count 444, MPV 10.4, Immature Gran % (Auto) 0.500, Neut % (Auto) 74.8 H, Lymph % (Auto) 16.7 L, [place] % (Auto) 6.6, Eos % (Auto) 1.0, Baso % (Auto) 0.4, Absolute Neuts (auto) 8.5 H, Absolute Lymphs (auto) 1.89, Nucleated RBC % 0, Platelet Estimate SLT INC, Anisocytosis 2+, Sodium 140, Potassium 4.8, Chloride 101, Carbon Dioxide 24.4, Anion Gap 15, BUN 36 H, Creatinine 1.41 H, Est GFR (MDRD) Non-Af 53 L, BUN/Creatinine Ratio 25.2 H, Glucose 133 H, Calcium 10.4, Total Bilirubin 0.66, AST 30, ALT 29, Alkaline Phosphatase 61, Total Protein 7.5, Albumin 3.8, Globulin 3.7, Albumin/Globulin Ratio 1.0, Lipase 12/13/24 18:30: Lactic Acid 2.0 Imaging Radiology Impression Abdomen/Pelvis CTA 12/13/24 17:51 IMPRESSION: No evidence of abdominal aortic aneurysm or dissection. Acute sigmoid diverticulitis with an adjacent 4 cm abscess formation. Colonoscopy is recommended upon resolution to exclude malignancy. Prominent loop of proximal small bowel within the left abdomen with subtle wall thickening and adjacent stranding, this may represent reactive inflammation secondary to acute sigmoid diverticulitis versus superimposed enteritis. Partial obstruction can not be completely excluded. Small fluid and fat containing umbilical hernia, similar in appearance to the prior study. Red Alert: Acute sigmoid diverticulitis with abscess formation. The critical information above was relayed directly by me by telephone to Oswaldo Frances on 12/13/2024 at 7:29 pm with readback verification. Reading [facility] Assessment & Plan Assessment/Plan (1) Atrial fibrillation with RVR: (2) Abdominal pain: (3) Colonic diverticular abscess: (4) Diverticulitis: (5) Essential (primary) hypertension: PLAN: Plan 1 diverticulitis with abscess?admit patient to the intensive care unit-consult Dr. Harris for surgical management, continue IV Zosyn and Dilaudid 1 mg IV every 2 hours as needed pain, IV normal saline at a rate of 125 cc/h, repeat CBC, CMP and coag panel in the a.m. will maintain patient is n.p.o. except for oral medications for time being. Will add as needed Zofran for nausea 2. Atrial fibrillation with rapid ventricular response?patient has been on Tikosyn and was cardioverted last weekend at the [facility] in [place] but has only maintained sinus rhythm for 2 days. Currently will target rate control less than 120 bpm using Cardizem drip and consult cardiology for further cardiology management 3. Hypertension?we will continue home medications 4. History of sleep apnea patient will be on oxygen and may add CPAP if necessary 5. DVT prophylaxis?patient is heparinized Charges/Coding Visit Charges Inpatient E&M: 71974 Init Hosp L2
[2024-12-13 20:25] LABS: International Normalized Ratio 1.1; Prothrombin Time (Protime)PT. 14.6 SECONDS (11.7-14.9)
[2024-12-13 20:26] LABS: Partial Thromboplast Time 30.7 Seconds (24.1-36.2)
[2024-12-13] MEDS: Lorazepam 2 MG/ML WCH Syringe 1 MG IV (20:47)
[2024-12-13] MEDS: 0.9% Normal Saline (1000mL) 1,000 ML 125 ML IV (21:18)
[2024-12-13] MEDS: HEPARIN/D5w 25,000 UNITS 25,000 UNITS/250 ML IV.SOLN. 15 UNITS CONT INF (21:24)
[2024-12-13] MEDS: Metoprolol Tartrate 50 MG Tablet PO (21:28)
[2024-12-13 22:34] LABS: Reflex Lactate? Y
[2024-12-13] MEDS: Dofetilide 250 MCG Capsule PO (22:35)
[2024-12-13] MEDS: 0.9% Saline Lock 10 ML Syringe IV (22:42)
[2024-12-13 23:22] LABS: Lactic Acid 1.5 mmol/L (0.0-2.0)
[2024-12-14] VITALS (30 sets, daily range): BP systolic 86–153; BP diastolic 51–85; PULSE 73–147; RESP 16–96; TEMP 36.3–37.2; O2SAT 93–100; BMI 32.8
[2024-12-14] MEDS: HYDROmorphone 1 MG/ML Syringe IV ×2 (01:33→07:33)
[2024-12-14 03:44] LABS: Absolute Lymphocyte Count 1.23 X10^3/uL (0.83-4.51); Absolute Neutrophil Count 14.7 X10^3/uL (2.0-7.7); Basophil# 0.04 X10^3/uL; Basophil% 0.2 % (0-1); Hemoglobin 13.6 g/dL (13.0-16.5); Lymphocyte # 1.23 X10^3/ul (0.83-4.51); Lymphocyte % 7.4 % (19-41); Mean Corp Hgb Conc 30.9 g/dL (32-36); Mean Corpuscular Hgb 24.8 pg (27.0-32.0); Mean Corpuscular Volume 80.3 fL (80-94); Mean Platelet Vol. 10.1 fl (6.2-12.0); Monocyte# 0.62 X10^3/uL; Monocyte% 3.7 % (0-10); NRBC Flagged by Analyzer 0 % (0-5); Neutrophil # 14.66 X10^3/uL (2.7-7.7); Neutrophil % 88.2 % (47-70); POSITIVE MORPHOLOGY YES; Platelet Count 380 K/mm3 (150-450); RBC Distribution Width CV 21.5 % (11.6-14.6); RBC Distribution Width SD 60.3 fl (35.1-43.9); Red Blood Count 5.48 M/mm3 (4.6-6.2); White Blood Count 16.6 K/mm3 (4.4-11.0)
[2024-12-14 03:58] LABS: Differential Indicated SCAN CRITERIA MET
[2024-12-14 03:59] LABS: AST(SGOT) 26 U/L (<=37); Alanine Aminotransfer ALT/SGPT 25 U/L (<=46); Albumin, Serum 3.2 g/dL (3.4-4.8); Alkaline Phosphatase 45 U/L (40-129); Anion Gap 13 (5-15); BUN 32 mg/dL (4-19); BUN/Creat Ratio 21.7 RATIO (10-20); Calcium,Total 9.3 mg/dL (7.6-11.0); Carbon Dioxide 23.8 mmol/L (21.0-32.0); Chloride 104 mmol/L (98-108); Creatinine, Serum 1.47 mg/dL (0.70-1.20); EST Glomerular Filtration Rate 51 (>60); Estimated Creatinine Clearance 55.39 ml/min (50-250); Globulin 3.2 g/dL (2.2-4.2); Glucose 167 mg/dL (70-99); Potassium 5.3 mmol/L (3.3-5.1); Protein, Total 6.3 g/dL (5.9-8.4); Sodium Level 141 mmol/L (133-145); Total Bilirubin 1.05 mg/dL (0.00-1.30)
[2024-12-14 04:00] LABS: Partial Thromboplast Time 65.7 Seconds (24.1-36.2)
--- NOTE | 2024-12-14 04:03 | CPS ---
Patient requested CPAP use due to normally wearing one at home HS, family is to bring in patients home PAP 12/14/24
[2024-12-14 04:06] LABS: International Normalized Ratio 1.2; Prothrombin Time (Protime)PT. 15.8 SECONDS (11.7-14.9)
[2024-12-14 04:30] LABS: Anisocytosis 2+; Differential Comment SCANNED; Ovalocyte 1+; Platelet Estimate ADEQUATE (ADEQ); Target Cells RARE
[2024-12-14] MEDS: 0.9% Normal Saline (1000mL) 1,000 ML 125 ML IV (04:45)
[2024-12-14] MEDS: 0.9% Saline Lock 10 ML Syringe IV (04:46)
[2024-12-14] MEDS: Diltiazem 125 MG in Dextrose 5%-Water (100mL Bag) 100 ML 10 MG IV (04:46)
[2024-12-14] MEDS: Piperacil/Tazobactam 3.375 GM in 0.9% Normal Saline (50mL MB+) 50 ML IV ×3 (05:06→21:31)
[2024-12-14] MEDS: Ipratropium/Albuterol Sulfate 3 ML AMPUL.NEB INHALATION (06:53)
[2024-12-14] MEDS: Budesonide Respules 0.5 MG/2 ML AMPUL.NEB. INHALATION (06:53)
--- NOTE | 2024-12-14 07:22 | ECHOLC_ITS ---
Reason For Study Reason For Study: AFib/Flutter Procedure This was a limited 2D transthoracic echocardiogram. The study was technically difficult. Contrast injection was performed. Exam performed portable in ICU/CCU. Left Ventricle Moderately dilated left ventricle. The estimated ejection fraction is 35-40 %. Right Ventricle Normal right ventricle. Mitral Valve The mitral valve is structurally normal. No prolapse or stenosis seen. Tricuspid Valve Normal tricuspid valve. Aortic Valve Trisinus/trileaflet aortic valve. Pulmonic Valve The pulmonic valve is not well visualized. Great Vessels The aortic root is not well visualized. Pericardium/Pleural No pericardial effusion. Medication Diluted definity 1ml given slow IV push to enhance endocardial definition. MMode/2D Measurements & Calculations LVIDd: 4.9 cm IVSd: 0.98 cm LAV(MOD-sp4): 66.8 ml LVIDs: 4.1 cm LVPWd: 0.93 cm FS: 16.3 % LVAd ap4: 46.1 cm2 LVAd ap2: 41.0 cm2 SV(MOD-sp4): 77.5 ml LVLd ap4: 9.4 cm LVLd ap2: 8.4 cm SI(MOD-sp4): 35.1 ml/m2 EDV(MOD-sp4): 182.8 ml EDV(MOD-sp2): 165.1 ml EDV(sp4-el): 190.9 ml EDV(sp2-el): 169.6 ml LVAs ap4: 31.0 cm2 LVAs ap2: 28.9 cm2 LVLs ap4: 7.7 cm LVLs ap2: 7.4 cm ESV(MOD-sp4): 105.3 ml ESV(MOD-sp2): 93.0 ml ESV(sp4-el): 106.3 ml ESV(sp2-el): 95.5 ml EF(MOD-sp4): 42.4 % EF(MOD-sp2): 43.7 % EF(sp4-el): 44.3 % SV(MOD-sp2): 72.2 ml SV(sp4-el): 84.6 ml LA A4 area: 21.7 cm2 SI(MOD-sp2): 32.6 ml/m2 RA A4 area: 19.0 cm2 Doppler Measurements & Calculations MR max fuad: 508.6 cm/sec MR max P.5 mmHg ECHO/Echo Limited w/Contrast Interpretation Summary The estimated ejection fraction is 35-40 %. Moderate LV systolic dysfunction Paradoxical septal motion/secondary to left bundle branch block Limited study No significant valvular abnormality Overall similar EF in comparison to previous echocardiogram Definity used/contrast echo Ordering Physician: Jaziel Lundberg Performed By: Michael Wagner RCS
[2024-12-14] MEDS: Potassium Chloride Oral Tablet 20 MEQ 40 MEQ PO (07:33)
[2024-12-14] MEDS: SACUBITRIL/VALSARTAN 24/26 MG TABLET 1 EACH PO ×2 (07:33→21:31)
[2024-12-14] MEDS: Gabapentin 600 MG Tablet PO (07:33)
[2024-12-14] MEDS: Dofetilide 250 MCG Capsule PO ×2 (07:34→21:31)
[2024-12-14] MEDS: Spironolactone 25 MG Tablet PO (07:34)
[2024-12-14] MEDS: Metoprolol Tartrate 50 MG Tablet PO ×2 (07:34→21:31)
[2024-12-14] MEDS: Ondansetron 4 MG/2 ML Vial IV (07:42)
--- NOTE | 2024-12-14 09:44 | PCM.CONS.C ---
HPI Consult Data Date of Consult: 01/22/25 HPI Narrative HPI Narrative: TL ANN, is a 69 M who presents [facility] Medical History (Updated 12/30/24 @ 00:01 by Background Mike) LV dysfunction Chronic anticoagulation Abnormal electrocardiogram PAF (paroxysmal atrial fibrillation) Emphysema/COPD Obstructive sleep apnea Depression Essential (primary) hypertension Obesity Benign neoplasm of maxillary sinus Left bundle branch block (LBBB) Home Medications ?Medication ?Instructions ?Recorded ?Last Taken ?Type ascorbic acid (vitamin C) 500 mg 2 gm PO DAILY general health 05/05/15 05/04/15 08:00 History tablet fluticasone fur. 100 mcg-umeclid 1 ea inhalation DAILY breathing 09/27/20 Unknown History 62.5 mcg-vilant 25 mcg inhalat.powder apixaban 5 mg tablet (Eliquis) 5 mg PO BID blood thinner 03/20/23 Unknown History albuterol sulfate 2.5 mg/3 mL 2.5 mg inhalation TID PRN PRN 12/13/24 Unknown History (0.083 %) solution for nebulization bronchospasm balsalazide 750 mg capsule 2,250 mg PO TID ULCERATIVE COLITIS 12/13/24 Unknown History dofetilide 250 mcg capsule 250 mcg PO Q12H heart 12/13/24 12/13/24 09:00 History ipratropium bromide 21 mcg (0.03 1 - 2 spray intranasal Q6H PRN PRN 12/13/24 Unknown History %) nasal spray allergy symptoms metoprolol succinate 50 mg 50 mg PO Q12H blood pressure 12/13/24 Unknown History tablet,extended release 24 hr potassium chloride 20 mEq 40 meq PO DAILY potassium 12/13/24 Unknown History tablet,extended release(part/cryst) (Klor-Con M) sacubitril 24 mg-valsartan 26 mg 1 tab PO Q12.TCU heart 12/13/24 Unknown History tablet (Entresto) spironolactone 25 mg tablet 25 mg PO DAILY diuretic 12/13/24 Unknown History dapagliflozin propanediol 10 mg 10 mg PO DAILY Heart failure 12/18/24 Unknown History tablet (Farxiga) furosemide 40 mg tablet 40 mg PO BID diuretic 12/18/24 Unknown History Allergy/AdvReac Type Severity Reaction Status Date / Time shellfish derived Allergy Nausea/Vom/ Verified 12/13/24 17:40 Diarrhea Family History Father Hypertension Colon cancer Mother Breast cancer Surgical History (Updated 12/15/24 @ 12:[address] Gianfranco Oropeza MD) H/O sinus surgery Social History Smoking Status: Former smoker quit date: 07/21/06 pack-years: 30 alcohol intake: current alcohol intake frequency: holidays/special occasions only Risk Stratification Risk Stratification Applicable: No Objective Data Vital Signs: Vital Signs Temp Pulse Resp BP Pulse Ox O2 Del Method O2 Flow Rate 97.3 F L 85 22 H 111/82 H 99 Nasal Cannula 3 12/14/24 04:00 12/14/24 07:34 12/14/24 07:00 12/14/24 07:34 12/14/24 07:00 12/14/24 08:20 12/14/24 07:00 Oxygen Flow Rate (L/min) 3 Oxygen Delivery Method Nasal Cannula Weight: 229 lb 11.547 oz Body Mass Index (BMI) 32.8 Intake & Output: Intake and Output for Last 24 Hours 12/12/24 12/13/24 12/14/24 23:59 23:59 23:59 Intake Total 811.25 / 826.25 1181.08 / 1181.08 Output Total 200 / 200 Balance 811.25 / 826.25 981.08 / 981.08 Lab / Micro Data 12/22/24 05:39 12/22/24 05:39 Labs: Laboratory Results - last 24 hr 12/13/24 17:47: WBC 11.3 H, RBC 6.10, Hgb 15.1, Hct 50.0, MCV 82.0, MCH 24.8 L, MCHC 30.2 L, RDW Std Deviation 61.8 H, RDW Coeff of Sea 21.9 H, Plt Count 444, MPV 10.4, Immature Gran % (Auto) 0.500, Neut % (Auto) 74.8 H, Lymph % (Auto) 16.7 L, [place] % (Auto) 6.6, Eos % (Auto) 1.0, Baso % (Auto) 0.4, Absolute Neuts (auto) 8.5 H, Absolute Lymphs (auto) 1.89, Nucleated RBC % 0, Platelet Estimate SLT INC, Anisocytosis 2+, Sodium 140, Potassium 4.8, Chloride 101, Carbon Dioxide 24.4, Anion Gap 15, BUN 36 H, Creatinine 1.41 H, Est GFR (MDRD) Non-Af 53 L, BUN/Creatinine Ratio 25.2 H, Glucose 133 H, Calcium 10.4, Total Bilirubin 0.66, AST 30, ALT 29, Alkaline Phosphatase 61, Total Protein 7.5, Albumin 3.8, Globulin 3.7, Albumin/Globulin Ratio 1.0, Lipase 25 12/13/24 18:30: Lactic Acid 2.0 12/13/24 20:00: PT 14.6, INR 1.1, APTT 30.7 12/13/24 22:41: Lactic Acid 1.5 12/14/24 03:24: WBC 16.6 H, RBC 5.48, Hgb 13.6, Hct 44.0, MCV 80.3, MCH 24.8 L, MCHC 30.9 L, RDW Std Deviation 60.3 H, RDW Coeff of Sea 21.5 H, Plt Count 380, MPV 10.1, Immature Gran % (Auto) 0.500, Neut % (Auto) 88.2 H, Lymph % (Auto) 7.4 L, [place] % (Auto) 3.7, Eos % (Auto) 0.0, Baso % (Auto) 0.2, Absolute Neuts (auto) 14.7 H, Absolute Lymphs (auto) 1.23, Nucleated RBC % 0, Differential Comment SCANNED, Platelet Estimate ADEQUATE, Anisocytosis 2+, Target Cells RARE, Ovalocytes 1+, PT 15.8 H, INR 1.2, APTT 65.7 H, Sodium 141, Potassium 5.3 H, Chloride 104, Carbon Dioxide 23.8, Anion Gap 13, BUN 32 H, Creatinine 1.47 H, Estim Creat Clear Calc 55.39, Est GFR (MDRD) Non-Af 51 L, BUN/Creatinine Ratio 21.7 H, Glucose 167 H, Calcium 9.3, Total Bilirubin 1.05, AST 26, ALT 25, Alkaline Phosphatase 45, Total Protein 6.3, Albumin 3.2 L, Globulin 3.2, Albumin/Globulin Ratio 1.0 Cardiology Labs/Tests 12/13/24 17:47: WBC 11.3 H, RBC 6.10, Hgb 15.1, Hct 50.0, MCV 82.0, MCH 24.8 L, MCHC 30.2 L, Plt Count 444, MPV 10.4, Immature Gran % (Auto) 0.500, Neut % (Auto) 74.8 H, Lymph % (Auto) 16.7 L, [place] % (Auto) 6.6, Eos % (Auto) 1.0, Baso % (Auto) 0.4, Absolute Neuts (auto) 8.5 H, Nucleated RBC % 0, Sodium 140, Potassium 4.8, Chloride 101, Carbon Dioxide 24.4, Anion Gap 15, BUN 36 H, Creatinine 1.41 H, Est GFR (MDRD) Non-Af 53 L, BUN/Creatinine Ratio 25.2 H, Glucose 133 H, Calcium 10.4, Total Bilirubin 0.66 12/13/24 18:30: Lactic Acid 2.0 12/13/24 20:00: PT 14.6, INR 1.1, APTT 30.7 12/13/24 22:41: Lactic Acid 1.5 12/14/24 03:24: WBC 16.6 H, RBC 5.48, Hgb 13.6, Hct 44.0, MCV 80.3, MCH 24.8 L, MCHC 30.9 L, Plt Count 380, MPV 10.1, Immature Gran % (Auto) 0.500, Neut % (Auto) 88.2 H, Lymph % (Auto) 7.4 L, [place] % (Auto) 3.7, Eos % (Auto) 0.0, Baso % (Auto) 0.2, Absolute Neuts (auto) 14.7 H, Nucleated RBC % 0, PT 15.8 H, INR 1.2, APTT 65.7 H, Sodium 141, Potassium 5.3 H, Chloride 104, Carbon Dioxide 23.8, Anion Gap 13, BUN 32 H, Creatinine 1.47 H, Est GFR (MDRD) Non-Af 51 L, BUN/Creatinine Ratio 21.7 H, Glucose 167 H, Calcium 9.3, Total Bilirubin 1.05 Rhythm: EKG: ECHO: Stress Test: Cardiac Cath: PCI: CT Surgery: Holter monitor: EPS: PPM: CXR: Chest CT Scan: Radiography Diagnostic Testing: Radiology Impression Abdomen/Pelvis CTA 12/13/24 17:51 IMPRESSION: No evidence of abdominal aortic aneurysm or dissection. Acute sigmoid diverticulitis with an adjacent 4 cm abscess formation. Colonoscopy is recommended upon resolution to exclude malignancy. Prominent loop of proximal small bowel within the left abdomen with subtle wall thickening and adjacent stranding, this may represent reactive inflammation secondary to acute sigmoid diverticulitis versus superimposed enteritis. Partial obstruction can not be completely excluded. Small fluid and fat containing umbilical hernia, similar in appearance to the prior study. Red Alert: Acute sigmoid diverticulitis with abscess formation. The critical information above was relayed directly by me by telephone to Oswaldo Farnces on 12/13/2024 at 7:29 pm with readback verification. Reading Location: [facility]
--- NOTE | 2024-12-14 10:05 | CASEMGMT ---
RN?CM?ANIMAL CONTROL LICENSING WORKER?CM?to room to meet with patient for initial transition planning/care coordination?assessment.?RN?CM?introduced self and role at [facility].? Pt voices understanding and consents to?assessment?at this time.? Pt resting in bed in no distress at this time.? @ bedside. Pt is A/O at this time and answers all questions appropriately.?? Care providers, pharmacy, and demographics verified/updated at this time. Strata: 2 PCP: Dr Zechariah Vasquez Specialists: Dr Carreno-GI, Dr Mahmood-pulmonology, Dr Gillespie- claims support specialist @ [facility]. Pt also sees a energy advisor there for CHF. Pt plans to f/u @ [facility] after discharge. Preferred Pharmacy: [facility] Retail pharmacy @ discharge. Insurance: [employer] Prescription Benefit:?yes LNOK: Bridgette Living Arrangements: Lives w/ in 2-story home w/basement and 4 steps to enter. Does okay w/the stairs. Independent w/ADL's. and pt share home mgnt tasks. Transportation:?Pt states drives self and states no transportation concerns at this time. also drives. ? DME: States has the following DME:?cane, BP machine, CPAP, nebulizer. No home O2. If home o2 is needed @ dc, [employer] is 1st preference. ?Pt and state no need for further DME at this time.? Pt and wish for pt to return home and states has no concerns with going home at time of discharge.??CM?to follow for any discharge planning/needs.? Pt and voice no further concerns/needs at this time.? Advised them to ask for?CM?if any further questions/concerns/needs arise.? They voice understanding. PLAN: Home Follow for possible home o2 @ dc. ?? Dayday BSN?RN?CM
--- NOTE | 2024-12-14 10:22 | CON.PCM.CA_ITS ---
<Statement entered by Jaziel Lundberg MD - 12/17/24 15:34> Pt seen & evaluated w/DARA. I personally interviewed & exam the pt. I was involved in all aspects of pt's orders, interpretation of results & treatment Assessment & Plan Assessment/Plan (1) Colonic diverticular abscess: (2) PAF (paroxysmal atrial fibrillation): (3) Chronic anticoagulation: (4) Atrial fibrillation with RVR: PLAN: Cardiac care plan recommendation 69-year-old patient admitted with a left lower quadrant abdominal pain. Patient has acute sigmoid diverticulitis with abscess formation with the plan of drainage surgically From cardiac standpoint patient currently on heparin. In addition to dofetilide/Tikosyn for atrial fibrillation. Low-dose diuretic Lasix 20 mg. Apixaban has been on hold. Cardiac care plan will be to review the records from [facility] where he had an echocardiogram and seen by the stockholder. We also ordered limited echocardiogram to assess and evaluate for LV function. Patient and family would like to follow-up with the cardiology team following surgical drainage of the abscess and once he is stable Will continue to monitor and follow-up clinically. Jaziel Lundberg MD,[facility] HPI Consult Data Date of Consult: 12/19/24 HPI Narrative Reason for Consultation: Abdominal pain with diverticulitis/A-fib with RVR. HPI Narrative: TL ANN, is a 69 M who presents [facility] Medical History (Updated 12/18/24 @ 15:[address] Jaziel Lundberg MD) PAF (paroxysmal atrial fibrillation) Emphysema/COPD Obstructive sleep apnea Depression Essential (primary) hypertension Obesity Benign neoplasm of maxillary sinus Left bundle branch block (LBBB) Home Medications ?Medication ?Instructions ?Recorded ?Last Taken ?Type ascorbic acid (vitamin C) 500 mg 2 gm PO DAILY general health 05/05/15 05/04/15 08:00 History tablet fluticasone fur. 100 mcg-umeclid 1 ea inhalation DAILY breathing 09/27/20 Unknown History 62.5 mcg-vilant 25 mcg inhalat.powder apixaban 5 mg tablet (Eliquis) 5 mg PO BID blood thinn er 03/20/23 Unknown History albuterol sulfate 2.5 mg/3 mL 2.5 mg inhalation TID ND N PRN 12/13/24 Unknown History (0.083 %) solution for nebulization bronchospasm balsalazide 750 mg capsule 2,250 mg PO TID ULCERATIVE COLITIS 12/13/24 Unknown History dofetilide 250 mcg capsule 250 mcg PO Q12H heart 12/1312/13/24 09:00 History ipratropium bromide 21 mcg (0.03 1 - 2 spray intranasa l Q6H PRN PRN 12/13/24 Unknown History %) nasal spray allergy symptoms metoprolol succinate 50 mg 50 mg PO Q12H blood pressur e 12/13/24 Unknown History tablet,extended release 24 hr potassium chloride 20 mEq 40 meq PO DAILY potassium Unknown History tablet,extended release(part/cryst) (Klor-Con M) sacubitril 24 mg-valsartan 26 mg 1 tab PO Q12.TCU hear t 12/13/24 Unknown History tablet (Entresto) spironolactone 25 mg tablet 25 mg PO DAILY diuretic Unknown History dapagliflozin propanediol 10 mg 10 mg PO DAILY Heart f ailure 12/18/24 Unknown History tablet (Farxiga) furosemide 40 mg tablet 40 mg PO BID diuretic Unknown History Allergy/AdvReac Type Severity Reaction Status Date / Time shellfish derived Allergy Nausea/Vom/ Verified 12/13/24 17:40 Diarrhea Family History Father Hypertension Colon cancer Mother Breast cancer Surgical History (Updated 12/15/24 @ 12:[address] Gianfranco Oropeza MD) H/O sinus surgery Social History Smoking Status: Former smoker quit date: 07/21/06 pack-years: 30 alcohol intake: current alcohol intake frequency: holidays/special occasions only Physical Exam Cardio Cardio Narrative: Patient seen and evaluated at bedside family were at bedside as well as the nursing staff The underlying cardiac rhythm is sinus rhythm. And been stable hemodynamically Cardiac exam S1-S2 is regular Chest exam clear auscultation bilateral Abdomen distended with the diffuse generalized tenderness Examination of lower extremity no lower extremity edema. Risk Stratification Risk Stratification Applicable: No Objective Data Vital Signs: Vital Signs Temp Pulse Resp BP Pulse Ox O2 Del Method O2 Flow Rate 98.9 F 88 95 H 148/72 H 95 Nasal Cannula 3 12/14/24 08:00 12/14/24 10:00 12/14/24 10:00 12/14/24 10:00 12/14/24 10:00 12/14/24 10:00 12/14/24 10:00 Oxygen Flow Rate (L/min) 3 Oxygen Delivery Method Nasal Cannula Weight: 229 lb 11.547 oz Body Mass Index (BMI) 32.8 Intake & Output: Intake and Output for Last 24 Hours 12/12/24 12/13/24 12/14/24 23:59 23:59 23:59 Intake Total 811.25 / 826.25 1824.83 / 1824.83 Output Total 200 / 200 Balance 811.25 / 826.25 1624.83 / 1624.83 Lab / Micro Data 12/19/24 03:10 12/19/24 03:10 Labs: Laboratory Results - last 24 hr 12/13/24 17:47: WBC 11.3 H, RBC 6.10, Hgb 15.1, Hct 50.0, MCV 82.0, MCH 24.8 L, MCHC 30.2 L, RDW Std Deviation 61.8 H, RDW Coeff of Sea 21.9 H, Plt Count 444, MPV 10.4, Immature Gran % (Auto) 0.500, Neut % (Auto) 74.8 H, Lymph % (Auto) 16.7 L, [place] % (Auto) 6.6, Eos % (Auto) 1.0, Baso % (Auto) 0.4, Absolute Neuts (auto) 8.5 H, Absolute Lymphs (auto) 1.89, Nucleated RBC % 0, Platelet Estimate SLT INC, Anisocytosis 2+, Sodium 140, Potassium 4.8, Chloride 101, Carbon Dioxide 24.4, Anion Gap 15, BUN 36 H, Creatinine 1.41 H, Est GFR (MDRD) Non-Af 53 L, BUN/Creatinine Ratio 25.2 H, Glucose 133 H, Calcium 10.4, Total Bilirubin 0.66, AST 30, ALT 29, Alkaline Phosphatase 61, Total Protein 7.5, Albumin 3.8, Globulin 3.7, Albumin/Globulin Ratio 1.0, Lipase 12/13/24 18:30: Lactic Acid 2.0 12/13/24 20:00: PT 14.6, INR 1.1, APTT 30.7 12/13/24 22:41: Lactic Acid 1.5 12/14/24 03:24: WBC 16.6 H, RBC 5.48, Hgb 13.6, Hct 44.0, MCV 80.3, MCH 24.8 L, MCHC 30.9 L, RDW Std Deviation 60.3 H, RDW Coeff of Sea 21.5 H, Plt Count 380, MPV 10.1, Immature Gran % (Auto) 0.500, Neut % (Auto) 88.2 H, Lymph % (Auto) 7.4 L, [place] % (Auto) 3.7, Eos % (Auto) 0.0, Baso % (Auto) 0.2, Absolute Neuts (auto) 14.7 H, Absolute Lymphs (auto) 1.23, Nucleated RBC % 0, Differential Comment SCANNED, Platelet Estimate ADEQUATE, Anisocytosis 2+, Target Cells RARE, Ovalocytes 1+, PT 15.8 H, INR 1.2, APTT 65.7 H, Sodium 141, Potassium 5.3 H, Chloride 104, Carbon Dioxide 23.8, Anion Gap 13, BUN 32 H, Creatinine 1.47 H, Estim Creat Clear Calc 55.39, Est GFR (MDRD) Non-Af 51 L, BUN/Creatinine Ratio 21.7 H, Glucose 167 H, Calcium 9.3, Total Bilirubin 1.05, AST 26, ALT 25, Alkaline Phosphatase 45, Total Protein 6.3, Albumin 3.2 L, Globulin 3.2, Albumin/Globulin Ratio 1.0 Cardiology Labs/Tests 12/13/24 17:47: WBC 11.3 H, RBC 6.10, Hgb 15.1, Hct 50.0, MCV 82.0, MCH 24.8 L, MCHC 30.2 L, Plt Count 444, MPV 10.4, Immature Gran % (Auto) 0.500, Neut % (Auto) 74.8 H, Lymph % (Auto) 16.7 L, [place] % (Auto) 6.6, Eos % (Auto) 1.0, Baso % (Auto) 0.4, Absolute Neuts (auto) 8.5 H, Nucleated RBC % 0, Sodium 140, Potassium 4.8, Chloride 101, Carbon Dioxide 24.4, Anion Gap 15, BUN 36 H, C reatinine 1.41 H, Est GFR (MDRD) Non-Af 53 L, BUN/Creatinine Ratio 25.2 H, G lucose 133 H, Calcium 10.4, Total Bilirubin 0.66 12/13/24 18:30: Lactic Acid 2.0 12/13/24 20:00: PT 14.6, INR 1.1, APTT 30.7 12/13/24 22:41: Lactic Acid 1.5 12/14/24 03:24: WBC 16.6 H, RBC 5.48, Hgb 13.6, Hct 44.0, MCV 80.3, MCH 24.8 L, MCHC 30.9 L, Plt Count 380, MPV 10.1, Immature Gran % (Auto) 0.500, Neut % (Auto) 88.2 H, Lymph % (Auto) 7.4 L, [place] % (Auto) 3.7, Eos % (Auto) 0.0, Baso % (Auto) 0.2, Absolute Neuts (auto) 14.7 H, Nucleated RBC % 0, PT 15.8 H, INR 1.2, APTT 65.7 H, Sodium 141, Potassium 5.3 H, Chloride 104, Carbon Dioxide 23.8, Anion Gap 13, BUN 32 H, Creatinine 1.47 H, Est GFR (MDRD) Non-Af 51 L, B UN/Creatinine Ratio 21.7 H, Glucose 167 H, Calcium 9.3, Total Bilirubin 1.05 Rhythm: EKG: ECHO: Stress Test: Cardiac Cath: PCI: CT Surgery: Holter monitor: EPS: PPM: CXR: Chest CT Scan: Radiography Diagnostic Testing: Radiology Impression Abdomen/Pelvis CTA 12/13/24 17:51 IMPRESSION: No evidence of abdominal aortic aneurysm or dissection. Acute sigmoid diverticulitis with an adjacent 4 cm abscess formation. Colonoscopy is recommended upon resolution to exclude malignancy. Prominent loop of proximal small bowel within the left abdomen with subtle wall thickening and adjacent stranding, this may represent reactive inflammation secondary to acute sigmoid diverticulitis versus superimposed enteritis. Partial obstruction can not be completely excluded. Small fluid and fat containing umbilical hernia, similar in appearance to the prior study. Red Alert: Acute sigmoid diverticulitis with abscess formation. The critical information above was relayed directly by me by telephone to Oswaldo Frances on 12/13/2024 at 7:29 pm with readback verification. Reading Location: [facility]
[2024-12-14 10:27] LABS: Partial Thromboplast Time 64.8 Seconds (24.1-36.2)
[2024-12-14] MEDS: proCHLORPERazine 10 MG/2 ML Vial 5 MG IV (11:00)
[2024-12-14] MEDS: Pantoprazole Sodium 40 MG in 0.9% Normal Saline (100mL MB+) 100 ML 330 MG IV (11:00)
[2024-12-14] MEDS: HYDROmorphone 1 MG/ML Syringe 0.5 MG IV ×2 (11:11→21:40)
--- NOTE | 2024-12-14 11:33 | PCM.PN.HOSP ---
Reason for Visit Reason for Visit: Diagnoses Essential (primary) hypertension (12/13/24) Unspecified atrial fibrillation (12/13/24) Diverticulitis of large intestine with perforation and abscess without bleeding (12/13/24) Diverticulitis of intestine, part unspecified, without perforation or abscess without bleeding (12/13/24) Unspecified abdominal pain (12/13/24) Subjective Subjective Saw patient at bedside this morning, present. Patient was sitting back in bed fairly comfortably and conversing normally. He did have nausea noted during our encounter with intermittent belching. Noted that his left lower quadrant pain has been well-controlled with pain medication. Stated that Zofran has been helpful for his nausea. Denied any palpitations currently. No other new concerns today. Objective Data Objective Data Vital Signs: Vital Signs Temp Pulse Resp BP Pulse Ox O2 Del Method O2 Flow Rate 98.9 F 88 95 H 148/72 H 95 Nasal Cannula 3 12/14/24 08:00 12/14/24 10:00 12/14/24 10:00 12/14/24 10:00 12/14/24 10:00 12/14/24 10:00 12/14/24 10:00 Oxygen Flow Rate (L/min) 3 Oxygen Delivery Method Nasal Cannula Weight: 104.2 kg Body Mass Index (BMI) 32.8 Intake & Output: Intake and Output for Last 24 Hours 12/12/24 12/13/24 12/14/24 23:59 23:59 23:59 Intake Total 811.25 / 826.25 2028.08 / 2028.08 Output Total 200 / 200 Balance 811.25 / 826.25 1828.08 / 1828.08 Lab / Micro Data 12/14/24 03:24 12/14/24 03:24 Labs: Laboratory Results - last 24 hr 12/13/24 17:47: WBC 11.3 H, RBC 6.10, Hgb 15.1, Hct 50.0, MCV 82.0, MCH 24.8 L, MCHC 30.2 L, RDW Std Deviation 61.8 H, RDW Coeff of Sea 21.9 H, Plt Count 444, MPV 10.4, Immature Gran % (Auto) 0.500, Neut % (Auto) 74.8 H, Lymph % (Auto) 16.7 L, [place] % (Auto) 6.6, Eos % (Auto) 1.0, Baso % (Auto) 0.4, Absolute Neuts (auto) 8.5 H, Absolute Lymphs (auto) 1.89, Nucleated RBC % 0, Platelet Estimate SLT INC, Anisocytosis 2+, Sodium 140, Potassium 4.8, Chloride 101, Carbon Dioxide 24.4, Anion Gap 15, BUN 36 H, Creatinine 1.41 H, Est GFR (MDRD) Non-Af 53 L, BUN/Creatinine Ratio 25.2 H, Glucose 133 H, Calcium 10.4, Total Bilirubin 0.66, AST 30, ALT 29, Alkaline Phosphatase 61, Total Protein 7.5, Albumin 3.8, Globulin 3.7, Albumin/Globulin Ratio 1.0, Lipase 25 12/13/24 18:30: Lactic Acid 2.0 12/13/24 20:00: PT 14.6, INR 1.1, APTT 30.7 12/13/24 22:41: Lactic Acid 1.5 12/14/24 03:24: WBC 16.6 H, RBC 5.48, Hgb 13.6, Hct 44.0, MCV 80.3, MCH 24.8 L, MCHC 30.9 L, RDW Std Deviation 60.3 H, RDW Coeff of Sea 21.5 H, Plt Count 380, MPV 10.1, Immature Gran % (Auto) 0.500, Neut % (Auto) 88.2 H, Lymph % (Auto) 7.4 L, [place] % (Auto) 3.7, Eos % (Auto) 0.0, Baso % (Auto) 0.2, Absolute Neuts (auto) 14.7 H, Absolute Lymphs (auto) 1.23, Nucleated RBC % 0, Differential Comment SCANNED, Platelet Estimate ADEQUATE, Anisocytosis 2+, Target Cells RARE, Ovalocytes 1+, PT 15.8 H, INR 1.2, APTT 65.7 H, Sodium 141, Potassium 5.3 H, Chloride 104, Carbon Dioxide 23.8, Anion Gap 13, BUN 32 H, Creatinine 1.47 H, Estim Creat Clear Calc 55.39, Est GFR (MDRD) Non-Af 51 L, BUN/Creatinine Ratio 21.7 H, Glucose 167 H, Calcium 9.3, Total Bilirubin 1.05, AST 26, ALT 25, Alkaline Phosphatase 45, Total Protein 6.3, Albumin 3.2 L, Globulin 3.2, Albumin/Globulin Ratio 1.0 12/14/24 10:02: APTT 64.8 H Radiography Diagnostic Testing: Radiology Impression Abdomen/Pelvis CTA 12/13/24 17:51 IMPRESSION: No evidence of abdominal aortic aneurysm or dissection. Acute sigmoid diverticulitis with an adjacent 4 cm abscess formation. Colonoscopy is recommended upon resolution to exclude malignancy. Prominent loop of proximal small bowel within the left abdomen with subtle wall thickening and adjacent stranding, this may represent reactive inflammation secondary to acute sigmoid diverticulitis versus superimposed enteritis. Partial obstruction can not be completely excluded. Small fluid and fat containing umbilical hernia, similar in appearance to the prior study. Red Alert: Acute sigmoid diverticulitis with abscess formation. The critical information above was relayed directly by me by telephone to Oswaldo Frances on 12/13/2024 at 7:29 pm with readback verification. Reading Location: [facility] Physical Exam Const alert, oriented x3 and no apparent distress Constitutional Narrative: Pleasant elderly male, class I obesity, sitting back in bed fairly comfortably, intermittently nauseous during our encounter but otherwise conversing normally. General Appearance: cooperative and comfortable HEENT normocephalic, head/scalp atraumatic, hearing grossly normal bilaterally, nasal mucous membranes and turbinates normal and moist oral mucous membranes Eyes PERRL, EOMs intact bilaterally and conjunctivae normal Neck full ROM Chest inspection of chest normal Resp normal respiratory effort, normal air movement, no use of accessory muscles and clear to auscultation bilaterally Cardio regular rate, regular rhythm, no murmurs and peripheral pulses 2+ throughout GI GI Narrative: Mild to moderate LLQ tenderness to palpation. Abdomen otherwise soft and nondistended. No guarding or rebound tenderness. Back/Spine normal ROM Extremity normal to inspection, full ROM and no pedal edema Skin no rashes or lesions noted Psych mental status grossly normal Assessment & Plan Assessment/Plan (1) Diverticulitis: (2) Colonic diverticular abscess: (3) Atrial fibrillation with RVR: PLAN: Plan Patient is a 69-year-old male who presented to [facility] ED on 12/13/2024 with worsening abdominal pain. 1. Sigmoid diverticulitis with abscess ? General Surgery following. CT abdomen pelvis on admit showed acute sigmoid diverticulitis with an adjacent 4 cm abscess formation. Per surgery, planning for IR drain placement for the abscess tomorrow. Continue n.p.o. status and IV Zosyn for now. Continue symptom control with IV pain and nausea medications as needed. 2. Paroxysmal A-fib with RVR ? Cardiology following. Follows with cardiology EP in [place]; completed Tikosyn loading followed by cardioversion there last week. Unfortunately was only in sinus rhythm for 2 days before going back into A-fib. Was in A-fib with RVR on arrival here. Placed on Cardizem drip and converted back to normal sinus rhythm by morning of 12/14, Cardizem drip discontinued. Continue home Tikosyn. IV Lopressor added as needed for now. Continue heparin drip for anticoagulation. Per cardiology, limited echo ordered to assess and evaluate LV function. 3. History of HFrEF, hypertension ? Follows with cardiology in [place]. Last echo in 2022 showed EF 40%. Repeat limited echo ordered here as above. Continue home Tikosyn and Toprol as noted above. Other home BP medications on hold for now, will restart as able. 4. Mild acute hypoxia in setting of COPD ? Not on home oxygen, requiring up to 3 L nasal cannula to maintain appropriate oxygen saturations here. Breathing comfortably and lung sounds clear. Suspect primarily secondary to poor respiratory excursion in setting of abdominal pain from abscess as above. Continue incentive spirometry. Continue home inhalers. Wean supplemental oxygen as able. 5. Class I obesity with KIM ? BMI 33 on admit. Encouraged weight loss. Continue CPAP at night and with naps. DVT prophylaxis: Not indicated, on heparin drip CODE STATUS: Full code, verified Expected disposition: Home, TBD Total clinical time spent by myself addressing the patient's medical issues, reviewing all the data, and collaborating with patient's care team: 35 minutes. Charges/Coding Visit Charges Inpatient E&M: 27647 Subs Hosp L2
--- NOTE | 2024-12-14 11:43 | EX.PCM.CON.S ---
Assessment & Plan Assessment/Plan (1) Colonic diverticular abscess: PLAN: The patient has diverticulitis with an abscess that is 4 cm. He is on Eliquis and took this yesterday at 6 AM. He is currently on a heparin drip for anticoagulation due to the A-fib with RVR and he is also on a Cardizem drip. He is currently being rate controlled. I will order a IR drain of the abscess as soon as he can be off of his anticoagulation. Continue antibiotics and n.p.o. Delano Harris MD Pager: [facility] [address] [place] [address] [address] [place], [address] [place] [address] Office: HPI Consult Data Date of Consult: 12/14/24 HPI Narrative HPI Narrative: TL ANN, is a 69 M who presents with abdominal pain. Patient is abdominal pain is in left lower quadrant. He denies fevers or chills. He is also in A-fib with RVR. [facility] Medical History PAF (paroxysmal atrial fibrillation) Emphysema/COPD Obstructive sleep apnea Depression Essential (primary) hypertension Obesity Benign neoplasm of maxillary sinus Left bundle branch block (LBBB) Home Medications ?Medication ?Instructions ?Recorded ?Last Taken ?Type ascorbic acid (vitamin C) 500 mg 2 gm PO DAILY general health 05/05/15 05/04/15 08:00 History tablet fluticasone fur. 100 mcg-umeclid 1 ea inhalation DAILY breathing 09/27/20 Unknown History 62.5 mcg-vilant 25 mcg inhalat.powder apixaban 5 mg tablet (Eliquis) 5 mg PO BID blood thinner 03/20/23 Unknown History albuterol sulfate 2.5 mg/3 mL 2.5 mg inhalation TID PRN PRN 12/13/24 Unknown History (0.083 %) solution for nebulization bronchospasm balsalazide 750 mg capsule 2,250 mg PO TID ULCERATIVE COLITIS 12/13/24 Unknown History dofetilide 250 mcg capsule 250 mcg PO Q12H heart 12/13/24 12/13/24 09:00 History ipratropium bromide 21 mcg (0.03 1 - 2 spray intranasal Q6H PRN PRN 12/13/24 Unknown History %) nasal spray allergy symptoms metoprolol succinate 50 mg 50 mg PO Q12H blood pressure 12/13/24 Unknown History tablet,extended release 24 hr potassium chloride 20 mEq 40 meq PO DAILY potassium 12/13/24 Unknown History tablet,extended release(part/cryst) (Klor-Con M) sacubitril 24 mg-valsartan 26 mg 1 tab PO Q12.TCU heart 12/13/24 Unknown History tablet (Entresto) spironolactone 25 mg tablet 25 mg PO DAILY diuretic 12/13/24 Unknown History Allergy/AdvReac Type Severity Reaction Status Date / Time shellfish derived Allergy Nausea/Vom/ Verified 12/13/24 17:40 Diarrhea Family History Father Hypertension Colon cancer Mother Breast cancer Social History Smoking Status: Former smoker quit date: 07/21/06 pack-years: 30 alcohol intake: current alcohol intake frequency: holidays/special occasions only Physical Exam Const alert and oriented x3 HEENT normocephalic Eyes PERRL Lymph Lymphatic: no lymphadenopathy noted Resp normal respiratory effort Cardio Rate: tachycardic GI soft to palpation Palpation: tender LLQ; Negative for guarding Extremity normal to inspection Neuro CN's II-XII intact bilaterally Lab / Micro Data 12/14/24 03:24 12/14/24 03:24 Labs: Laboratory Results - last 24 hr 12/13/24 17:47: WBC 11.3 H, RBC 6.10, Hgb 15.1, Hct 50.0, MCV 82.0, MCH 24.8 L, MCHC 30.2 L, RDW Std Deviation 61.8 H, RDW Coeff of Sea 21.9 H, Plt Count 444, MPV 10.4, Immature Gran % (Auto) 0.500, Neut % (Auto) 74.8 H, Lymph % (Auto) 16.7 L, [place] % (Auto) 6.6, Eos % (Auto) 1.0, Baso % (Auto) 0.4, Absolute Neuts (auto) 8.5 H, Absolute Lymphs (auto) 1.89, Nucleated RBC % 0, Platelet Estimate SLT INC, Anisocytosis 2+, Sodium 140, Potassium 4.8, Chloride 101, Carbon Dioxide 24.4, Anion Gap 15, BUN 36 H, Creatinine 1.41 H, Est GFR (MDRD) Non-Af 53 L, BUN/Creatinine Ratio 25.2 H, Glucose 133 H, Calcium 10.4, Total Bilirubin 0.66, AST 30, ALT 29, Alkaline Phosphatase 61, Total Protein 7.5, Albumin 3.8, Globulin 3.7, Albumin/Globulin Ratio 1.0, Lipase 25 12/13/24 18:30: Lactic Acid 2.0 12/13/24 20:00: PT 14.6, INR 1.1, APTT 30.7 12/13/24 22:41: Lactic Acid 1.5 12/14/24 03:24: WBC 16.6 H, RBC 5.48, Hgb 13.6, Hct 44.0, MCV 80.3, MCH 24.8 L, MCHC 30.9 L, RDW Std Deviation 60.3 H, RDW Coeff of Sea 21.5 H, Plt Count 380, MPV 10.1, Immature Gran % (Auto) 0.500, Neut % (Auto) 88.2 H, Lymph % (Auto) 7.4 L, [place] % (Auto) 3.7, Eos % (Auto) 0.0, Baso % (Auto) 0.2, Absolute Neuts (auto) 14.7 H, Absolute Lymphs (auto) 1.23, Nucleated RBC % 0, Differential Comment SCANNED, Platelet Estimate ADEQUATE, Anisocytosis 2+, Target Cells RARE, Ovalocytes 1+, PT 15.8 H, INR 1.2, APTT 65.7 H, Sodium 141, Potassium 5.3 H, Chloride 104, Carbon Dioxide 23.8, Anion Gap 13, BUN 32 H, Creatinine 1.47 H, Estim Creat Clear Calc 55.39, Est GFR (MDRD) Non-Af 51 L, BUN/Creatinine Ratio 21.7 H, Glucose 167 H, Calcium 9.3, Total Bilirubin 1.05, AST 26, ALT 25, Alkaline Phosphatase 45, Total Protein 6.3, Albumin 3.2 L, Globulin 3.2, Albumin/Globulin Ratio 1.0 12/14/24 10:02: APTT 64.8 H Imaging Radiology Impression Abdomen/Pelvis CTA 05/26/25 17:51 IMPRESSION: No evidence of abdominal aortic aneurysm or dissection. Acute sigmoid diverticulitis with an adjacent 4 cm abscess formation. Colonoscopy is recommended upon resolution to exclude malignancy. Prominent loop of proximal small bowel within the left abdomen with subtle wall thickening and adjacent stranding, this may represent reactive inflammation secondary to acute sigmoid diverticulitis versus superimposed enteritis. Partial obstruction can not be completely excluded. Small fluid and fat containing umbilical hernia, similar in appearance to the prior study. Red Alert: Acute sigmoid diverticulitis with abscess formation. The critical information above was relayed directly by me by telephone to Oswaldo Frances on 12/13/2024 at 7:29 pm with readback verification. Reading Location: [facility]
[2024-12-14] MEDS: HEPARIN/D5w 25,000 UNITS 25,000 UNITS/250 ML IV.SOLN. 15 UNITS CONT INF (14:16)
[2024-12-15] VITALS (21 sets, daily range): BP systolic 86–140; BP diastolic 61–82; PULSE 79–160; RESP 17–25; TEMP 2.6–37.2; O2SAT 95–100; BMI 32.8
[2024-12-15 02:40] LABS: Hematocrit 43.6 % (40-54); Hemoglobin 13.1 g/dL (13.0-16.5); Mean Platelet Vol. 10.2 fl (6.2-12.0); POSITIVE MORPHOLOGY YES; Platelet Count 350 K/mm3 (150-450); RBC Distribution Width CV 21.6 % (11.6-14.6); RBC Distribution Width SD 63.8 fl (35.1-43.9); Red Blood Count 5.25 M/mm3 (4.6-6.2); White Blood Count 19.4 K/mm3 (4.4-11.0)
--- NOTE | 2024-12-15 02:44 | NURSING ---
Heparin gtt stopped at 0230 for drain placement this morning 12/15/24.
[2024-12-15 03:13] LABS: Anion Gap 10 (5-15); BUN 27 mg/dL (4-19); BUN/Creat Ratio 21.1 RATIO (10-20); Calcium,Total 9.3 mg/dL (7.6-11.0); Carbon Dioxide 26.4 mmol/L (21.0-32.0); Chloride 105 mmol/L (98-108); Creatinine, Serum 1.27 mg/dL (0.70-1.20); EST Glomerular Filtration Rate 60 (>60); Glucose 158 mg/dL (70-99); Potassium 5.1 mmol/L (3.3-5.1); Sodium Level 142 mmol/L (133-145)
[2024-12-15 03:20] LABS: Scan Indicated on CBC? Y/N YES- FLAGS NOTED
[2024-12-15 03:21] LABS: Partial Thromboplast Time 113.6 Seconds (24.1-36.2)
[2024-12-15] MEDS: Piperacil/Tazobactam 3.375 GM in 0.9% Normal Saline (50mL MB+) 50 ML IV ×3 (06:13→21:26)
--- NOTE | 2024-12-15 07:20 | PCM.PN.SRG ---
Subjective Subjective Patient reports pain is about the same as it was yesterday Objective Data Objective Data Vital Signs: Vital Signs Temp Pulse Resp BP Pulse Ox O2 Del Method O2 Flow Rate 96.8 F L 98 19 H 122/73 H 97 CPAP 3 12/15/24 05:00 12/15/24 05:00 12/15/24 05:00 12/15/24 05:00 12/15/24 05:00 12/15/24 05:00 12/15/24 05:00 FiO2 3 12/15/24 01:48 Oxygen Flow Rate (L/min) 3 Oxygen Delivery Method CPAP Weight: 228 lb 12.8 oz Body Mass Index (BMI) 32.8 Intake & Output: Intake and Output for Last 24 Hours 12/13/24 12/14/24 12/15/24 23:59 23:59 23:59 Intake Total 811.25 / 826.25 2125.83 / 2125.83 233.5 / 233.5 Output Total 1175 / 1575 600 / 600 Balance 811.25 / 826.25 950.83 / 550.83 -366.5 / -366.5 Lab / Micro Data 12/15/24 02:30 12/15/24 02:30 Labs: Laboratory Results - last 24 hr 12/14/24 10:02: APTT 64.8 H 12/15/24 02:30: WBC 19.4 H, RBC 5.25, Hgb 13.1, Hct 43.6, MCV 83.0, MCH 25.0 L, MCHC 30.0 L, RDW Std Deviation 63.8 H, RDW Coeff of Sea 21.6 H, Plt Count 350, MPV 10.2, APTT 113.6 H*, Sodium 142, Potassium 5.1, Chloride 105, Carbon Dioxide 26.4, Anion Gap 10, BUN 27 H, Creatinine 1.27 H, Estim Creat Clear Calc 64.50, Est GFR (MDRD) Non-Af 60, BUN/Creatinine Ratio 21.1 H, Glucose 158 H, Calcium 9.3 Radiography Diagnostic Testing: Radiology Impression Echocardiogram 12/14/24 07:22 Interpretation Summary The estimated ejection fraction is 35-40 %. Moderate LV systolic dysfunction Paradoxical septal motion/secondary to left bundle branch block Limited study No significant valvular abnormality Overall similar EF in comparison to previous echocardiogram Definity used/contrast echo Ordering Physician: Jaziel Lundberg Performed By: Michael Wagner RCS Physical Exam Const oriented x3 and no apparent distress Resp normal respiratory effort Cardio regular rhythm Rate: tachycardic GI soft to palpation Palpation: tender LLQ Assessment & Plan Assessment/Plan (1) Colonic diverticular abscess: PLAN: Patient reports the pain is about the same as yesterday. Heparin was stopped at 2 AM for drainage this morning. Patient is having an IR drain into his diverticular abscess. Continue antibiotics and n.p.o. Delano Harris MD Pager: [facility] [address] [place] [address] [address] [place] [address] Office:
[2024-12-15] MEDS: Diltiazem 125 MG in Dextrose 5%-Water (100mL Bag) 100 ML IV (08:44)
[2024-12-15] MEDS: Potassium Chloride Oral Tablet 20 MEQ 40 MEQ PO (08:52)
[2024-12-15] MEDS: Gabapentin 600 MG Tablet PO ×2 (08:55→17:24)
[2024-12-15] MEDS: Spironolactone 25 MG Tablet PO (09:00)
[2024-12-15] MEDS: SACUBITRIL/VALSARTAN 24/26 MG TABLET 1 EACH PO (09:00)
[2024-12-15] MEDS: Pantoprazole Sodium 40 MG in 0.9% Normal Saline (100mL MB+) 100 ML 330 MG IV (09:01)
[2024-12-15] MEDS: hydroCHLOROthiazide 25 MG Tablet PO (09:01)
[2024-12-15] MEDS: Metoprolol Tartrate 50 MG Tablet PO (09:01)
[2024-12-15] MEDS: Dofetilide 250 MCG Capsule PO (09:02)
[2024-12-15] MEDS: Metoprolol Tartrate 5 MG/5 ML Vial IV (09:13)
--- NOTE | 2024-12-15 09:40 | PN_ITS ---
Progress Note The patient was unable to have IR drain placed today due to bowel. I discussed performing a laparoscopic drainage of this abscess with washout. I also discussed performing a sigmoid colectomy with likely colostomy. I would like to take the patient and try to wash the abscess out and see if this will heal to try to avoid colostomy. If the abscess contains stool I may have to do a sigmoid resection today. Unfortunately the patient went into A-fib RVR with a heart rate of 170 so I am unable to take him to the OR immediately. He is starting back on his Cardizem drip and receiving a dose of metoprolol. Once his heart rate is reasonable I will take him for laparoscopic washout with possible bowel resection. I discussed having to perform a colostomy as well. I discussed the risks of the surgery such as bleeding, infection, injury other organs. I also discussed the possibility of having to place a colostomy. The patient is also only saturating 85% on room air and I informed the patient that he would likely return to the ICU intubated after surgery. The patient understands and is in agreement. The patient and his are both in agreement with surgery. Continue to hold the heparin for surgery Delano Harris MD Pager: [facility] [address] [place] [address], [address] [place] [address] Office:
[2024-12-15] MEDS: HYDROmorphone 1 MG/ML Syringe 0.5 MG IV (09:41)
[2024-12-15] MEDS: 0.9% Saline Lock 10 ML Syringe IV (09:45)
[2024-12-15] MEDS: Amiodarone 150 MG in Dextrose 5%-Water (100mL Bag) 100 ML 600 MG IV BOLUS (10:09)
[2024-12-15] MEDS: Amiodarone 360 MG in Dextrose 5% Viaflo Bag 192.8 ML 33.3 MG CONT INF (10:21)
[2024-12-15] MEDS: Lactated Ringers 1,000 ML 500 ML IV (10:43)
--- NOTE | 2024-12-15 11:15 | PCM.PN.HOSP ---
Reason for Visit Reason for Visit: Diagnoses Essential (primary) hypertension (12/13/24) Unspecified atrial fibrillation (12/13/24) Diverticulitis of large intestine with perforation and abscess without bleeding (12/13/24) Diverticulitis of intestine, part unspecified, without perforation or abscess without bleeding (12/13/24) Unspecified abdominal pain (12/13/24) Subjective Subjective Saw patient at bedside this morning, present. Patient was sitting back comfortably in bed, conversing normally and in no acute distress. He had some minimal lower abdominal pain this morning. Stated his belching and nausea were improved today from yesterday. However, he had gone back into A-fib with RVR and his heart rate was in the 130s to 140s when I saw him. He denied any palpitations or lightheadedness/dizziness. No other acute concerns at this time. Objective Data Objective Data Vital Signs: Vital Signs Temp Pulse Resp BP Pulse Ox O2 Del Method O2 Flow Rate 97 F L 148 H 20 H 86/73 L 96 CPAP 3 12/15/24 11:00 12/15/24 11:00 12/15/24 11:00 12/15/24 11:00 12/15/24 11:00 12/15/24 11:00 12/15/24 11:00 FiO2 3 12/15/24 01:48 Oxygen Flow Rate (L/min) 3 Oxygen Delivery Method CPAP Weight: 103.782 kg Body Mass Index (BMI) 32.8 Intake & Output: Intake and Output for Last 24 Hours 12/13/24 12/14/24 12/15/24 23:59 23:59 23:59 Intake Total 811.25 / 826.25 2125.83 / 2125.83 490.75 / 490.75 Output Total 1175 / 1575 600 / 600 Balance 811.25 / 826.25 950.83 / 550.83 -109.25 / -109.25 Lab / Micro Data 12/15/24 02:30 12/15/24 02:30 Labs: Laboratory Results - last 24 hr 12/15/24 02:30: WBC 19.4 H, RBC 5.25, Hgb 13.1, Hct 43.6, MCV 83.0, MCH 25.0 L, MCHC 30.0 L, RDW Std Deviation 63.8 H, RDW Coeff of Sea 21.6 H, Plt Count 350, MPV 10.2, APTT 113.6 H*, Sodium 142, Potassium 5.1, Chloride 105, Carbon Dioxide 26.4, Anion Gap 10, BUN 27 H, Creatinine 1.27 H, Estim Creat Clear Calc 64.50, Est GFR (MDRD) Non-Af 60, BUN/Creatinine Ratio 21.1 H, Glucose 158 H, Calcium 9.3 Radiography Diagnostic Testing: Radiology Impression Echocardiogram 12/14/24 07:22 Interpretation Summary The estimated ejection fraction is 35-40 %. Moderate LV systolic dysfunction Paradoxical septal motion/secondary to left bundle branch block Limited study No significant valvular abnormality Overall similar EF in comparison to previous echocardiogram Definity used/contrast echo Ordering Physician: Jaziel Lundberg Performed By: Michael Wagner, [facility] Physical Exam Const alert, oriented x3 and no apparent distress Constitutional Narrative: Pleasant elderly male, class I obesity, mildly fatigued appearing but otherwise sitting back comfortably in bed, conversing normally, in no acute distress. General Appearance: cooperative and comfortable HEENT normocephalic, head/scalp atraumatic, hearing grossly normal bilaterally, nasal mucous membranes and turbinates normal and moist oral mucous membranes Eyes PERRL, EOMs intact bilaterally and conjunctivae normal Neck full ROM Chest inspection of chest normal Resp normal respiratory effort, normal air movement, no use of accessory muscles and clear to auscultation bilaterally Cardio no murmurs and peripheral pulses 2+ throughout Cardio Narrative: A-fib with RVR. GI GI Narrative: Mild LLQ tenderness to palpation. Abdomen otherwise soft and nondistended. No guarding or rebound tenderness. Back/Spine normal ROM Extremity normal to inspection, full ROM and no pedal edema Skin no rashes or lesions noted Psych mental status grossly normal Assessment & Plan Assessment/Plan (1) Diverticulitis: (2) Colonic diverticular abscess: (3) Atrial fibrillation with RVR: PLAN: Plan Patient is a 69-year-old male who presented to [facility] ED on 12/13/2024 with worsening abdominal pain. 1. Sigmoid diverticulitis with abscess ? General Surgery following. CT abdomen pelvis on admit showed acute sigmoid diverticulitis with an adjacent 4 cm abscess formation. Per surgery, planning for IR drain placement for the abscess this afternoon. Continue n.p.o. status and IV Zosyn for now. Continue symptom control with IV pain and nausea medications as needed. 2. Paroxysmal A-fib with RVR ? Cardiology following. Follows with cardiology EP in [place]; completed Tikosyn loading followed by cardioversion there last week. Unfortunately was only in sinus rhythm for 2 days before going back into A-fib. Was in A-fib with RVR on arrival here. Placed on Cardizem drip and converted back to normal sinus rhythm by morning of 12/14. Echo 12/14 showed moderately dilated LV, EF 35 to 40%, no other abnormalities and stable from previous. Unfortunately went back into A-fib with RVR on morning of 12/15. Per cardiology, given amiodarone bolus and started on amiodarone drip. Tikosyn, Cardizem and metoprolol discontinued. Continue heparin drip for anticoagulation. Continue cardiac monitoring. 3. History of HFrEF, hypertension ? Follows with cardiology in [place]. Last echo in 2022 showed EF 40%. Repeat echo on 12/14 as noted above with no change from previous. Treated with amiodarone drip as above. Holding home Entresto and spironolactone. 4. Mild acute hypoxia in setting of COPD ? Global Sales Manager following. Not on home oxygen, requiring up to 3 L nasal cannula to maintain appropriate oxygen saturations here. Breathing comfortably and lung sounds clear. Suspect primarily secondary to poor respiratory excursion in setting of abdominal pain from abscess as above. Continue incentive spirometry. Continue home inhalers. Wean supplemental oxygen as able. 5. Class I obesity with KIM ? BMI 33 on admit. Encouraged weight loss. Continue CPAP at night and with naps. DVT prophylaxis: Not indicated, on heparin drip CODE STATUS: Full code, verified Expected disposition: Home, TBD Total clinical time spent by myself addressing the patient's medical issues, reviewing all the data, and collaborating with patient's care team: 35 minutes. Charges/Coding Visit Charges Inpatient E&M: 64566 Subs Hosp L2
--- NOTE | 2024-12-15 11:54 | EX.PCM.CONCC ---
Assessment & Plan Assessment/Plan (1) Atrial fibrillation with RVR: (2) Colonic diverticular abscess: PLAN: Plan RECOMMENDATIONS: 1. Continue antimicrobial therapy as ordered. 2. Tentative plans for surgical intervention at some point today. 3. Rate/rhythm control strategy per cardiology recommendations. 4. Supplemental oxygen, if needed, to maintain saturations at or above 90%. 5. Continue PAP therapy with naps and nightly. IMPRESSIONS: 1. Abdominal pain in the setting of diverticular abscess Tentative plans for surgical intervention. Maintain n.p.o. status for now. Continue empiric antibiotics. 2. Paroxysmal atrial fibrillation with RVR Continue rate/rhythm control strategy per cardiology recommendations. 3. History of COPD/obstructive sleep apnea Continue supplemental oxygen, if needed, to maintain saturations at or above 90%. Recommend continuing PAP therapy with naps and nightly. We will be available to assist with weaning from invasive mechanical ventilatory support, following surgery. 4. History of heart failure with reduced ejection fraction/obesity/hypertension Complicates care, management, recovery and prognosis. Continue to hold home antihypertensives. This note was generated with [employer] dictation software. It may contain incorrect words, spelling, and punctuation that were not noted in checking the note before signing. HPI Consult Data Date of Consult: 12/15/24 HPI Narrative Reason for Consultation: Critical care management HPI Narrative: The patient is a 69-year-old male, with a history as outlined below, who presented to the emergency department on December 13 with progressive abdominal discomfort, primarily in the left upper lower quadrant. The patient has a known history of COPD and obstructive sleep apnea, followed by Dr. Mahmood on an outpatient basis. The patient reported that he does not utilize supplemental oxygen on a regular basis. In addition to the aforementioned, the patient has a medical history significant for paroxysmal atrial fibrillation with RVR, heart failure with reduced ejection fraction and hypertension. On presentation to the emergency department, the patient was documented to be afebrile hemodynamically stable. He was, nevertheless, notably tachycardic. Laboratory evaluation revealed a white blood cell count of 11,000. Hemoglobin and platelet count were stable. Chemistry profile was notable for a creatinine of 1.4 with a lactate of 2.0. CT abdomen/pelvis demonstrated acute sigmoid diverticulitis with adjacent 4 cm abscess formation. The patient in the emergency department was noted to be in atrial fibrillation with RVR. In light of the aforementioned findings, cardiology was consulted along with general surgery. The patient has been placed on antimicrobial therapy. At the present time, the patient remains in atrial fibrillation with RVR. However, his hemodynamic status is stable. There are tentative plans for surgical intervention at some point today. [facility] Medical History PAF (paroxysmal atrial fibrillation) Emphysema/COPD Obstructive sleep apnea Depression Essential (primary) hypertension Obesity Benign neoplasm of maxillary sinus Left bundle branch block (LBBB) Home Medications ?Medication ?Instructions ?Recorded ?Last Taken ?Type ascorbic acid (vitamin C) 500 mg 2 gm PO DAILY general health 05/05/15 05/04/15 08:00 History tablet fluticasone fur. 100 mcg-umeclid 1 ea inhalation DAILY breathing 09/27/20 Unknown History 62.5 mcg-vilant 25 mcg inhalat.powder apixaban 5 mg tablet (Eliquis) 5 mg PO BID blood thinner 03/20/23 Unknown History albuterol sulfate 2.5 mg/3 mL 2.5 mg inhalation TID PRN PRN 12/13/24 Unknown History (0.083 %) solution for nebulization bronchospasm balsalazide 750 mg capsule 2,250 mg PO TID ULCERATIVE COLITIS 12/13/24 Unknown History dofetilide 250 mcg capsule 250 mcg PO Q12H heart 12/13/24 12/13/24 09:00 History ipratropium bromide 21 mcg (0.03 1 - 2 spray intranasal Q6H PRN PRN 12/13/24 Unknown History %) nasal spray allergy symptoms metoprolol succinate 50 mg 50 mg PO Q12H blood pressure 12/13/24 Unknown History tablet,extended release 24 hr potassium chloride 20 mEq 40 meq PO DAILY potassium 12/13/24 Unknown History tablet,extended release(part/cryst) (Klor-Con M) sacubitril 24 mg-valsartan 26 mg 1 tab PO Q12.TCU heart 12/13/24 Unknown History tablet (Entresto) spironolactone 25 mg tablet 25 mg PO DAILY diuretic 12/13/24 Unknown History Allergy/AdvReac Type Severity Reaction Status Date / Time shellfish derived Allergy Nausea/Vom/ Verified 12/13/24 17:40 Diarrhea Family History Father Hypertension Colon cancer Mother Breast cancer Social History Smoking Status: Former smoker quit date: 07/21/06 pack-years: 30 alcohol intake: current alcohol intake frequency: holidays/special occasions only ROS ROS Narrative 10 systems were reviewed with pertinent positives as noted in the HPI above. Physical Exam Const alert, oriented x3 and no apparent distress General Appearance: cooperative HEENT normocephalic, head/scalp atraumatic and moist oral mucous membranes Eyes PERRL, EOMs intact bilaterally and conjunctivae normal Neck supple General: trachea midline Chest inspection of chest normal Resp normal respiratory effort Auscultation: Negative for rales, rhonchi or wheezes Cardio S1 normal heart sound and S2 normal heart sound Rate: tachycardic Rhythm: abnormal rhythm GI soft to palpation GI Narrative: There is mild tenderness noted in the left upper lower quadrant. Extremity no clubbing, cyanosis or edema Skin no rashes or lesions noted Neuro CN's II-XII intact bilaterally, moves all extremities and no focal motor deficits Psych cooperative and affect normal Lab / Micro Data 12/15/24 02:30 12/15/24 02:30 Labs: Laboratory Results - last 24 hr 12/15/24 02:30: WBC 19.4 H, RBC 5.25, Hgb 13.1, Hct 43.6, MCV 83.0, MCH 25.0 L, MCHC 30.0 L, RDW Std Deviation 63.8 H, RDW Coeff of Sea 21.6 H, Plt Count 350, MPV 10.2, APTT 113.6 H*, Sodium 142, Potassium 5.1, Chloride 105, Carbon Dioxide 26.4, Anion Gap 10, BUN 27 H, Creatinine 1.27 H, Estim Creat Clear Calc 64.50, Est GFR (MDRD) Non-Af 60, BUN/Creatinine Ratio 21.1 H, Glucose 158 H, Calcium 9.3 Imaging Radiology Impression Echocardiogram 12/14/24 07:22 Interpretation Summary The estimated ejection fraction is 35-40 %. Moderate LV systolic dysfunction Paradoxical septal motion/secondary to left bundle branch block Limited study No significant valvular abnormality Overall similar EF in comparison to previous echocardiogram Definity used/contrast echo Ordering Physician: Jaziel Lundberg Performed By: Michael Wagner RCS Charges/Coding Visit Charges Inpatient E&M: 76056 Init Hosp L3
--- NOTE | 2024-12-15 12:22 | PCM.PRE.AN2 ---
ASA Classification* ASA Classification ASA Classification: 4 Assessment & Plan Anesthesia* Anesthesia Assessment Anesthesia Assessment: Discussed sedation and/or anesthesia options, risks, benefits, and alternatives with patient/parents/legal guardian/POA. Questions invited. The patient/parents/legal guardian/POA seems to understand and agrees to proceed with anesthesia plan. Reviewed the physical assessment, medical history, allergy history and patient home medications list prior to surgery/procedure/anesthetic and documented any changes. Performed airway and anesthesia risk assessments. Anesthesia Type Anesthesia Type: General History Source History Obtained from:: Patient and Chart Anesthesia Focused Assessment* Temperature: 98.0 F Pulse Rate: 135 Blood Pressure: 107/79 Respiratory Rate: 20 Pulse Ox: 99 Oxygen Flow Rate (L/min): 3 Fraction of Inspired Oxygen (FIO2): 98 Airway Assessment Mouth opens: >3 cm Mallampati Score: IV Teeth Condition: Partial (Upper partials out.) Neck Range of motion (ROM): Limited ROM (Slight decrease in extension) Focused Labs Anesthesia Preop lab: CBC WBC 19.4 K/mm3 (4.4-11.0) H 12/15/24 02:30 12/15/24 RBC 5.25 M/mm3 (4.6-6.2) 12/15/24 02:30 12/15/24 Hgb 13.1 g/dL (13.0-16.5) 12/15/24 02:30 12/15/24 Hct 43.6 % (40-54) 12/15/24 02:30 12/15/24 Plt Count 350 K/mm3 (150-450) 12/15/24 02:30 12/15/24 CHEMISTRY Potassium 5.1 mmol/L (3.3-5.1) 12/15/24 02:30 12/15/24 Sodium 142 mmol/L (133-145) 12/15/24 02:30 12/15/24 Magnesium 1.7 mg/dL (1.5-2.2) 11/30/24 13:42 11/30/24 BUN 27 mg/dL (4-19) H 12/15/24 02:30 12/15/24 Creatinine 1.27 mg/dL (0.70-1.20) H 12/15/24 02:30 12/15/24 Glucose 158 mg/dL (70-99) H 12/15/24 02:30 12/15/24 TSH 1.110 uIU/mL (0.300-4.200) 11/30/24 13:42 11/30/24 COAG PT 15.8 SECONDS (11.7-14.9) H 12/14/24 03:24 12/14/24 Pre-Assessment Diagnosis/Proposed Procedure Planned Operative Procedure(s): Laparoscopic washout of diverticular abscess. Possible bowel resection. Possible colostomy. Anesthesia History Anesthesia History - sizing sprayer: Anesthesia History - sizing sprayer Hx Hospitalization No 11/06/20 13:59 Any Problems With Anesthesia No 11/06/20 13:59 Cholinesterase deficiency No 11/06/20 13:59 You/Your Family Experience No 11/06/20 13:59 fever (hyperthermia) with Relationship Recent Exposure to Contagious No 11/10/20 09:26 Disease Does patient have nerve No 11/06/20 13:59 stimulator Patient instructed to have device shut off --Does patient have Pacemaker or ICD? When Was Last Pacemaker Check QUESTION #4 FULL TEXT: You/Your Family Experience fever (hyperthermia) with Anesthesia Last Oral Intake Last Oral intake: Last Oral Intake NPO since Meds taken in AM with sips of water? Meds patient instructed to take am of surgery Any additional information?: Yes NPO since: 00:00 Meds taken in AM with sips of water?: Yes PONV PONV - sizing sprayer: PONV - sizing sprayer Female HX of Motion Sickness HX of N/V After Surgery Non-Smoker Duration of Surgery greater than 60 minutes Number of Risk Factors PONV Score Height & Weight Height & Weight: Anesthesia: Height & Weight Height 5 ft 10 in 12/14/24 09:40 Weight: 103.782 kg 12/15/24 05:00 Body Mass Index (BMI) 32.8 12/15/24 05:00 Respiratory Assessment Respiratory Assessment - sizing sprayer: Respiratory Tract Infection Hx - sizing sprayer Hx Respiratory Tract Infection No 11/06/20 13:59 STOP Sleep Apnea STOP Sleep Apnea - sizing sprayer: STOP Sleep Apnea - sizing sprayer Hx Hypertension Yes 12/13/24 21:07 Hx Sleep Apnea Yes 12/13/24 21:07 CPAP Yes 12/13/24 21:07 BIPAP No 12/13/24 21:07 Do you snore loudly (louder than talking or can be heard Do you often feel tired/ fatigued/ sleepy during daytime? Has anyone observed you stop breathing during sleep? STOP Results Positive 12/13/24 21:07 QUESTION #5 FULL TEXT : Do you snore loudly (louder than talking or can be heard through closed doors)? Tobacco Use History Tobacco Use History - sizing sprayer: Tobacco Use History - sizing sprayer Tobacco Use Smoking Status Former smoker 12/13/24 21:07 Hx Tobacco Use No 12/13/24 21:07 Years Smoking Packs Smoked per Day Smoking Cessation Date was No - quit smoking greater 12/13/24 21:07 within the last 15 years than 15 years ago Hx Smoking Cessation Date Hx Smoking Cessation Counseling Hematologic Medial History Hematologic Hx - sizing sprayer: Hematologic Medical Hx - global mobility specialist Hx of Blood Transfusion No 12/13/24 21:07 Hx of Transfusion in last 3 No 12/13/24 21:07 Months Date of Last Transfusion (if within last 3 months) Ever experience any problems No 12/13/24 21:07 with transfusion(s)? Specify any problems Hx of Preganancy in last 3 N/A 12/13/24 21:07 Months Nurse Filling Out Transfusion [email or web address] 12/13/24 21:07 & Questions: Date: 12/13/24 12/13/24 21:07 Time: 21:12 12/13/24 21:07 Patient unable to answer at this time (ie. confused, unrespo /Reproduction History /Reproductive History - sizing sprayer: /Reproductive Hx- sizing sprayer Hx Now Gestational Age (in weeks): EDC: Hx Hx Para Hx Section SAB Active Medications Active Medications: Current Medications Generic Name Dose Route Start Last Admin Trade Name Freq PRN Reason Stop Dose Admin Albuterol/Ipratropium 3 ml 12/14/24 09:56 Ipratropium/Albuterol Sulfate 3 Ml Ampul.Neb INHALATION Q6H.RT PRN sob Budesonide 0.5 mg 12/14/24 06:00 12/14/24 06:53 Budesonide Respules 0.5 Mg/2 Ml Ampul.Neb. INHALATION 0.5 mg Q12H.RT ALDO Administration Gabapentin 600 mg 12/14/24 08:00 12/15/24 08:55 Gabapentin 600 Mg Tablet PO 600 mg BIDCM ALDO Administration Heparin Sodium (Porcine) 0 unit 12/13/24 21:20 Heparin Injection (Vial) 5,000 Unit/Ml Vial IV UD PRN dose adjustment Protocol Hydrochlorothiazide 25 mg 12/14/24 10:00 12/15/24 09:01 Hydrochlorothiazide 25 Mg Tablet PO 25 mg DAILY ALDO Administration Protocol Hydromorphone HCl 0.5 mg 12/14/24 07:47 12/15/24 09:41 Hydromorphone 1 Mg/Ml Syringe IV 0.5 mg Q3H PRN PRN Administration Pain Score 6-10 Heparin Sodium/Dextrose 25,000 units in 250 mls @ 15 mls/hr 12/13/24 19:50 12/15/24 05:53 CONT INF Not Given .[id number] ALDO Protocol As Directed Piperacillin Sod/Tazobactam 50 mls @ 12.5 mls/hr 12/14/24 06:00 12/15/24 09:52 Sod 3.375 gm/ Sodium Chloride IV Infused Q8 ALDO Infusion Sodium Chloride 250 mls @ 15 mls/hr 12/13/24 21:08 IV .[id number] PRN Saline Flush Sodium Chloride 250 mls @ 15 mls/hr 12/13/24 21:08 IV .[id number] PRN Additional IVPB Infusion Pantoprazole Sodium 40 mg/ 100 mls @ 330 mls/hr 12/14/24 10:00 12/15/24 09:20 Sodium Chloride IV Infused Q24 ALDO Infusion Amiodarone HCl 360 mg/ 200 mls @ 33.333 mls/hr 12/15/24 09:30 12/15/24 10:21 Dextrose CONT INF 12/15/24 15:29 1 mg/min .Q6H ALDO 33.3 mls/hr Administration 1 MG/MIN Amiodarone HCl 360 mg/ 200 mls @ 16.667 mls/hr 12/15/24 15:30 Dextrose CONT INF 12/16/24 09:29 .Q12H ALDO 0.5 MG/MIN Lactated Ringer's 1,000 mls @ 500 mls/hr 12/15/24 10:45 12/15/24 10:43 IV 12/15/24 12:44 500 mls/hr .Q2H ALDO Administration Metoprolol Tartrate 50 mg 12/13/24 22:00 12/15/24 09:01 Metoprolol Tartrate 50 Mg Tablet PO 50 mg BID ALDO Administration Protocol Metoprolol Tartrate 5 mg 12/14/24 09:55 12/15/24 09:13 Metoprolol Tartrate 5 Mg/5 Ml Vial IV 5 mg Q6H PRN Administration tachycardia Protocol Ondansetron HCl 4 mg 12/14/24 09:57 Ondansetron 4 Mg/2 Ml Vial IV Q6H PRN PRN NAUSEA/VOMITING Potassium Chloride 40 meq 12/14/24 08:00 12/15/24 08:52 Potassium Chloride Oral Tablet 20 Meq PO 40 meq DAILYCM ALDO Administration Prochlorperazine Edisylate 5 mg 12/14/24 09:56 12/14/24 11:00 Prochlorperazine 10 Mg/2 Ml Vial IV 5 mg Q6H PRN PRN Administration BREAKTHROUGH NAUSEA Sodium Chloride 10 - 40 ml 12/13/24 21:08 12/15/24 09:45 0.9% Saline Lock 10 Ml Syringe IV 20 ml UD PRN Administration SALINE FLUSH Spironolactone 25 mg 12/14/24 10:00 12/15/24 09:00 Spironolactone 25 Mg Tablet PO 25 mg DAILY ALDO Administration Protocol [facility] Medical History PAF (paroxysmal atrial fibrillation) Emphysema/COPD Obstructive sleep apnea Depression Essential (primary) hypertension Obesity Benign neoplasm of maxillary sinus Left bundle branch block (LBBB) Home Medications ?Medication ?Instructions ?Recorded ?Last Taken ?Type ascorbic acid (vitamin C) 500 mg 2 gm PO DAILY general health 05/05/15 05/04/15 08:00 History tablet fluticasone fur. 100 mcg-umeclid 1 ea inhalation DAILY breathing 09/27/20 Unknown History 62.5 mcg-vilant 25 mcg inhalat.powder apixaban 5 mg tablet (Eliquis) 5 mg PO BID blood thinner 03/20/23 Unknown History albuterol sulfate 2.5 mg/3 mL 2.5 mg inhalation TID PRN PRN 12/13/24 Unknown History (0.083 %) solution for nebulization bronchospasm balsalazide 750 mg capsule 2,250 mg PO TID ULCERATIVE COLITIS 12/13/24 Unknown History dofetilide 250 mcg capsule 250 mcg PO Q12H heart 12/13/24 12/13/24 09:00 History ipratropium bromide 21 mcg (0.03 1 - 2 spray intranasal Q6H PRN PRN 12/13/24 Unknown History %) nasal spray allergy symptoms metoprolol succinate 50 mg 50 mg PO Q12H blood pressure 12/13/24 Unknown History tablet,extended release 24 hr potassium chloride 20 mEq 40 meq PO DAILY potassium 12/13/24 Unknown History tablet,extended release(part/cryst) (Klor-Con M) sacubitril 24 mg-valsartan 26 mg 1 tab PO Q12.TCU heart 12/13/24 Unknown History tablet (Entresto) spironolactone 25 mg tablet 25 mg PO DAILY diuretic 12/13/24 Unknown History Allergy/AdvReac Type Severity Reaction Status Date / Time shellfish derived Allergy Nausea/Vom/ Verified 12/13/24 17:40 Diarrhea Family History Father Hypertension Colon cancer Mother Breast cancer Surgical History (Updated 12/15/24 @ 12:[address] Gianfranco Oropeza MD) H/O sinus surgery Social History Smoking Status: Former smoker quit date: 07/21/06 pack-years: 30 alcohol intake: current alcohol intake frequency: holidays/special occasions only Review of Systems (Anesthesia) ROS Narrative System reviewed and no additional complaints, except as documented.
[2024-12-15] MEDS: Bupiv/Epi 0.25% 30 ML Vial (13:45)
--- NOTE | 2024-12-15 13:59 | PCM.OPRPT ---
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: Yes Shank Maker: Andrei Feliciano Tasks completed by engineer first assistant: Opening and Closing Type of Anesthesia: General/Regional RN Documented Start/Stop Times: Operation Date: 12/15/24 13:00 Case Time Anesthesia Start 12/15/24 12:46 Into Room 12/15/24 12:46 Procedure Start 12/15/24 13:17 Procedure End 12/15/24 13:52 Procedure Start Time: 13:17 Procedure Stop Time: 13:52 Select all DRAINS/GRAFTS/IMPLANTS that apply: Drains Drain details: AMY to bulb suction Estimated Blood Loss: 10 Specimen collected: No Description of surgery: Patient was brought to the operating room and general anesthesia was induced. The patient converted into sinus rhythm during induction. Abraham catheter was placed into the bladder. The abdomen was prepped and draped in usual sterile fashion. A midline incision was made superior to the umbilicus and deepened to the fascia which was elevated and incised. A port was placed into the abdomen it was insufflated 15 mmHg. Another 5 mm port was placed in the right lower quadrant and right upper quadrant. Using atraumatic graspers the small bowel loops were fanned out of the way and released from the adhesions. This was all done bluntly. The abscess cavity was encountered and suctioned dry. It was inspected and it appeared to be walled off with no communication to the colon. There was no stool encountered. The purulent material was suctioned and the interloop abscesses were cleared and suctioned dry. The cavity was irrigated as well as the abdomen with several liters of fluid. Suction was applied and there was no stool leaking from the abscess cavity. A 15 [place] Citizen round drain was placed through the right lower quadrant incision and into the abscess cavity. It was sutured to the skin. Next the abdomen was allowed to desufflate and the ports were removed. The midline fascia was closed with interrupted 0 Vicryl sutures. The skin was injected with local anesthetic and closed with interrupted 4-0 Monocryl sutures. Steri-Strips and bandages were applied. Patient was taken back to ICU in stable condition. Surgical Findings: Diverticular abscess with purulent material. Complications Complications: No Admit VTE Documentation VTE Mechan Device Prophylaxis: SCD's
--- NOTE | 2024-12-15 14:26 | PCM.POST.ANE ---
Anesthesia: Postop Eval I Current Vital Signs Temperature: 36.7 F Pulse Rate: 82 Blood Pressure: 114/74 Respiratory Rate: 18 Pulse Ox: 100 Oxygen Delivery Method: Nasal Cannula Oxygen Flow Rate (L/min): 2 Assessment Airway patent: Yes Spontaneous unlabored respirations: Yes Mental status: Awake and Calm nausea: No Vomiting: No Anesthesia Complication: No Fluid Hydration Crystalloid volume administer (ml): 800 Total IV fluid infused: 800 Progress Note Anesthesia document: Postop Eval 1 completed: Yes
[2024-12-15] MEDS: Dextrose 5%-Lactated Ringers 1,000 ML 75 ML IV (15:05)
--- NOTE | 2024-12-15 17:18 | PN.CARD_ITS ---
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 I discussed in detail with the patient and family the finding of echocardiogram With EF in the range of 35-40% moderate left ventricular systolic dysfunction Patient has paradoxical septal motion secondary to chronic left bundle branch block As well I stopped the Tikosyn and will continue on anticoagulation with heparin as well surgical recommendation to start at night 8 hours post laparoscopy to minimize risk of bleeding. From cardiac standpoint we will review the records from [facility] Will review all his medication we will continue on amiodarone as well as Eliquis once he is stable and cleared by the vascular surgeon to resume the anticoagulation Also will set up to follow-up with EP for further plan of management of the A- fib. Objective Data Vital Signs: Vital Signs Temp Pulse Resp BP Pulse Ox O2 Del Method O2 Flow Rate 96.6 F L 79 18 119/65 98 Nasal Cannula 3 12/15/24 14:27 12/15/24 14:27 12/15/24 14:27 12/15/24 14:27 12/15/24 14:27 12/15/24 14:27 12/15/24 14:27 FiO2 98 12/15/24 12:25 Oxygen Flow Rate (L/min) 3 Oxygen Delivery Method Nasal Cannula Weight: 228 lb 12.8 oz Body Mass Index (BMI) 32.8 Intake & Output: Intake and Output for Last 24 Hours 12/13/24 12/14/24 12/15/24 23:59 23:59 23:59 Intake Total 811.25 / 826.25 2125.83 / 2125.83 1581.77 / 1581.77 Output Total 1175 / 1575 780 / 780 Balance 811.25 / 826.25 950.83 / 550.83 801.77 / 801.77 Lab / Micro Data 12/15/24 02:30 12/15/24 02:30 Labs: Laboratory Results - last 24 hr 12/15/24 02:30: WBC 19.4 H, RBC 5.25, Hgb 13.1, Hct 43.6, MCV 83.0, MCH 25.0 L, MCHC 30.0 L, RDW Std Deviation 63.8 H, RDW Coeff of Sea 21.6 H, Plt Count 350, MPV 10.2, APTT 113.6 H*, Sodium 142, Potassium 5.1, Chloride 105, Carbon Dioxide 26.4, Anion Gap 10, BUN 27 H, Creatinine 1.27 H, Estim Creat Clear Calc 64.50, Est GFR (MDRD) Non-Af 60, BUN/Creatinine Ratio 21.1 H, Glucose 158 H, Calcium 9.3 Cardiology Labs/Tests 12/15/24 02:30: WBC 19.4 H, RBC 5.25, Hgb 13.1, Hct 43.6, MCV 83.0, MCH 25.0 L, MCHC 30.0 L, Plt Count 350, MPV 10.2, APTT 113.6 H*, Sodium 142, Potassium 5.1, Chloride 105, Carbon Dioxide 26.4, Anion Gap 10, BUN 27 H, Creatinine 1.27 H, Est GFR (MDRD) Non-Af 60, BUN/Creatinine Ratio 21.1 H, Glucose 158 H, Calcium 9.3 Rhythm: EKG: ECHO: Stress Test: Cardiac Cath: PCI: CT Surgery: Holter monitor: EPS: PPM: CXR: Chest CT Scan: Radiography Diagnostic Testing: Radiology Impression Echocardiogram 12/14/24 07:22 Interpretation Summary The estimated ejection fraction is 35-40 %. Moderate LV systolic dysfunction Paradoxical septal motion/secondary to left bundle branch block Limited study No significant valvular abnormality Overall similar EF in comparison to previous echocardiogram Definity used/contrast echo Ordering Physician: Jaziel Lundberg Performed By: Michael Wagner RCS Physical Exam Cardio Cardio Narrative: Seen and evaluated at bedside along with the nursing staff Family were at bedside He had the drainage from the exploratory laparoscopic, drainage of the diverticular abscess Reviewed the urban redevelopment specialist, current lab result Cardiac exam S1-S2 is regular Chest exam is clear to auscultation bilaterally Abdomen mildly distended with diffuse tenderness Examination lower extremity no lower extremity edema. Assessment & Plan Assessment/Plan (1) Atrial fibrillation with RVR: (2) Abdominal pain: (3) Diverticulitis: (4) PAF (paroxysmal atrial fibrillation): (5) Essential (primary) hypertension: (6) Abnormal electrocardiogram: PLAN: Cardiac care plan and recommendations; 69-year-old patient with history of atrial fibrillation and RVR. Patient has diverticular abscess/colonic Underwent exploratory laparoscopic drainage of the diverticular abscess by the surgical team. Has atrial fibrillation, patient is on antibiotic with piperacillin He was on treatment with Tikosyn/dofetilide which he discontinued As his echocardiogram is abnormal with ejection fraction in the range of 35-40%. Would recommend sotalol for the paroxysmal A-fib In addition would recommend follow-up with EP to discuss further plan In regard to his anticoagulation long-term once he is stable and cleared by the surgical team to resume Eliquis 5 mg twice daily. Patient to follow-up with the cardiac team as an outpatient Also I requested the records from [facility] also requested the records from [facility] regarding the EP plan and follow-up. Jaziel Lundbreg MD,FACC,[facility]
--- NOTE | 2024-12-15 20:52 | CPS ---
Patient stated he will call if breathing tx is needed
[2024-12-15 22:40] LABS: Partial Thromboplast Time 28.9 Seconds (24.1-36.2)
[2024-12-16] VITALS (42 sets, daily range): BP systolic 80–117; BP diastolic 57–95; PULSE 89–159; RESP 13–32; TEMP 36.4–36.8; O2SAT 90–100; BMI 33.0
[2024-12-16] MEDS: Metoprolol Tartrate 5 MG/5 ML Vial IV ×2 (03:30→21:18)
[2024-12-16] MEDS: HEPARIN/D5w 25,000 UNITS 25,000 UNITS/250 ML IV.SOLN. 15 UNITS CONT INF (03:43)
[2024-12-16] MEDS: Dextrose 5%-Lactated Ringers 1,000 ML 75 ML IV (03:43)
[2024-12-16 03:47] LABS: Hematocrit 39.7 % (40-54); Hemoglobin 11.8 g/dL (13.0-16.5); Mean Corp Hgb Conc 29.7 g/dL (32-36); Mean Corpuscular Hgb 24.8 pg (27.0-32.0); Mean Corpuscular Volume 83.6 fL (80-94); Mean Platelet Vol. 10.3 fl (6.2-12.0); POSITIVE MORPHOLOGY YES; Platelet Count 311 K/mm3 (150-450); RBC Distribution Width CV 21.3 % (11.6-14.6); RBC Distribution Width SD 63.8 fl (35.1-43.9); Red Blood Count 4.75 M/mm3 (4.6-6.2); White Blood Count 14.8 K/mm3 (4.4-11.0)
[2024-12-16 03:58] LABS: Scan Indicated on CBC? Y/N YES- FLAGS NOTED
[2024-12-16 04:04] LABS: Anion Gap 12 (5-15); BUN 24 mg/dL (4-19); BUN/Creat Ratio 20.5 RATIO (10-20); Calcium,Total 8.8 mg/dL (7.6-11.0); Carbon Dioxide 23.1 mmol/L (21.0-32.0); Chloride 111 mmol/L (98-108); Creatinine, Serum 1.19 mg/dL (0.70-1.20); EST Glomerular Filtration Rate 65 (>60); Glucose 152 mg/dL (70-99); Potassium 4.2 mmol/L (3.3-5.1); Sodium Level 146 mmol/L (133-145)
[2024-12-16 04:17] LABS: Partial Thromboplast Time 98.3 Seconds (24.1-36.2)
[2024-12-16] MEDS: Piperacil/Tazobactam 3.375 GM in 0.9% Normal Saline (50mL MB+) 50 ML IV ×3 (05:48→21:10)
[2024-12-16] MEDS: Metoprolol Tartrate 50 MG Tablet PO (05:58)
--- NOTE | 2024-12-16 06:56 | PCM.PN.INT ---
Assessment & Plan Assessment/Plan (1) Atrial fibrillation with RVR: (2) Colonic diverticular abscess: PLAN: Plan RECOMMENDATIONS: 1. Continue antimicrobial therapy as ordered. 2. Continue routine postoperative care per general surgery recommendations. 3. Rate/rhythm control strategy per cardiology recommendations. 4. Supplemental oxygen, if needed, to maintain saturations at or above 90%. 5. Continue PAP therapy with naps and nightly. 6. We will follow peripherally and be available if any issues arise. IMPRESSIONS: 1. Abdominal pain in the setting of diverticular abscess The patient is postoperative day #1 following exploratory laparoscopy with drainage of abscess. The patient did well postoperatively and was able to be extubated. He is doing remarkably well from a respiratory perspective. Continue supplemental oxygen, if needed, along with PAP therapy with sleep, due to his history of sleep apnea. 2. Paroxysmal atrial fibrillation with RVR Continue rate/rhythm control strategy per cardiology recommendations. 3. History of COPD/obstructive sleep apnea Continue supplemental oxygen, if needed, to maintain saturations at or above 90%. Recommend continuing PAP therapy with naps and nightly. 4. History of heart failure with reduced ejection fraction/obesity/hypertension Complicates care, management, recovery and prognosis. Continue to hold home antihypertensives. This note was generated with [email or web address] dictation software. It may contain incorrect words, spelling, and punctuation that were not noted in checking the note before signing. Subjective Subjective The patient was seen and examined at the bedside this morning. Events from the last 24 hours have been reviewed. The patient is currently afebrile, hemodynamically stable and maintaining appropriate oxygen saturations on 2 L/min via nasal cannula. The patient was tolerant of his home PAP therapy overnight. He did quite well yesterday with surgery and was able to be extubated postprocedure. No overnight events were noted. The patient's, however, he is again in atrial fibrillation with RVR. White blood cell count is elevated at 15,000. Hemoglobin and platelet count are stable. Creatinine is within normal limits. Potassium is within normal limits at 4.2. Objective Data Objective Data The patient's most recent lab work, culture data and imaging studies have all been personally reviewed. Surface echocardiogram demonstrated a moderately dilated LV with an ejection fraction of 35 to 40%. Vital Signs: Vital Signs Temp Pulse Resp BP Pulse Ox O2 Del Method O2 Flow Rate 97.7 F L 124 H 16 104/66 94 CPAP 2 12/16/24 03:22 12/16/24 06:08 12/16/24 03:22 12/16/24 06:08 12/16/24 06:50 12/16/24 06:50 12/16/24 06:50 FiO2 98 12/15/24 12:25 Oxygen Flow Rate (L/min) 2 Oxygen Delivery Method CPAP Weight: 229 lb 14.4 oz Body Mass Index (BMI) 33.0 Intake & Output: Intake and Output for Last 24 Hours 12/14/24 12/15/24 12/16/24 23:59 23:59 23:59 Intake Total 2125.83 / 2125.83 1631.77 / 1631.77 1009.5 / 1009.5 Output Total 1175 / 1575 1740 / 2190 790 / 790 Balance 950.83 / 550.83 -108.23 / -558.23 219.5 / 219.5 Lab / Micro Data Attestation: I reviewed the patient's lab results. 12/16/24 03:40 12/16/24 03:40 Labs: Laboratory Results - last 24 hr 12/15/24 21:30: APTT 28.9 12/16/24 03:40: WBC 14.8 H, RBC 4.75, Hgb 11.8 L, Hct 39.7 L, MCV 83.6, MCH 24.8 L, MCHC 29.7 L, RDW Std Deviation 63.8 H, RDW Coeff of Sea 21.3 H, Plt Count 311, MPV 10.3, APTT 98.3 H*, Sodium 146 H, Potassium 4.2, Chloride 111 H, Carbon Dioxide 23.1, Anion Gap 12, BUN 24 H, Creatinine 1.19, Estim Creat Clear Calc 68.70, Est GFR (MDRD) Non-Af 65, BUN/Creatinine Ratio 20.5 H, Glucose 152 H, Calcium 8.8 Physical Exam Const alert, oriented x3 and no apparent distress General Appearance: cooperative HEENT normocephalic, head/scalp atraumatic and moist oral mucous membranes Eyes PERRL, EOMs intact bilaterally and conjunctivae normal Neck supple General: trachea midline Chest inspection of chest normal Resp normal respiratory effort Auscultation: Negative for rales, rhonchi or wheezes Cardio S1 normal heart sound and S2 normal heart sound Rate: tachycardic Rhythm: abnormal rhythm GI soft to palpation and non-tender Extremity no clubbing, cyanosis or edema Skin no rashes or lesions noted Neuro CN's II-XII intact bilaterally, moves all extremities and no focal motor deficits Psych cooperative and affect normal Charges/Coding Visit Charges Inpatient E&M: 58965 Subs Hosp L2
[2024-12-16] MEDS: Digoxin 250 MCG/ML Ampul 125 MCG IV ×3 (07:44→21:18)
[2024-12-16 08:42] LABS: Magnesium 2.1 mg/dL (1.5-2.2)
[2024-12-16] MEDS: Lactated Ringers 1,000 ML 500 ML IV (09:00)
[2024-12-16] MEDS: Amiodarone 150 MG in Dextrose 5%-Water (100mL Bag) 100 ML 600 MG IV BOLUS (09:23)
[2024-12-16] MEDS: Amiodarone 360 MG in Dextrose 5% Viaflo Bag 192.8 ML 16.7 MG CONT INF (09:59)
--- NOTE | 2024-12-16 10:00 | RAD_ITS ---
EXAM: XR Abdomen, 1 View CLINICAL INDICATION: R/O ILLEUS TECHNIQUE: Frontal supine view of the abdomen/pelvis. COMPARISON: No relevant prior studies available. FINDINGS: GASTROINTESTINAL TRACT: Unremarkable. No dilation. BONES/JOINTS: Unremarkable. No acute fracture. RAD/Abdomen Single View (Portable) IMPRESSION: Nonobstructive bowel gas pattern. Reading [facility]
--- NOTE | 2024-12-16 10:35 | PCM.PN.HOSP ---
Reason for Visit Reason for Visit: Diagnoses Essential (primary) hypertension (12/13/24) Paroxysmal atrial fibrillation (12/13/24) Unspecified atrial fibrillation (12/13/24) Diverticulitis of large intestine with perforation and abscess without bleeding (12/13/24) Diverticulitis of intestine, part unspecified, without perforation or abscess without bleeding (12/13/24) Unspecified abdominal pain (12/13/24) Abnormal electrocardiogram [ECG] [EKG] (12/13/24) Subjective Subjective Saw patient at bedside this morning. Dr. Ramírez also at bedside. Patient was sitting back comfortably in bed, conversing normally in no acute distress. Did report some abdominal distention but only mild abdominal pain currently. Denied any nausea. Heart rate continues to be in the 130s to 140s but he denies any palpitations. No other acute concerns at this time. Objective Data Objective Data Vital Signs: Vital Signs Temp Pulse Resp BP Pulse Ox O2 Del Method O2 Flow Rate 97.7 F L 142 H 23 H 103/70 98 Nasal Cannula 2 12/16/24 03:22 12/16/24 09:59 12/16/24 09:59 12/16/24 09:59 12/16/24 09:59 12/16/24 09:59 12/16/24 09:59 FiO2 98 12/15/24 12:25 Oxygen Flow Rate (L/min) 2 Oxygen Delivery Method Nasal Cannula Weight: 104.281 kg Body Mass Index (BMI) 33.0 Intake & Output: Intake and Output for Last 24 Hours 12/14/24 12/15/24 12/16/24 23:59 23:59 23:59 Intake Total 2125.83 / 2125.83 1631.77 / 1631.77 1059.5 / 1059.5 Output Total 1175 / 1575 1740 / 2190 790 / 790 Balance 950.83 / 550.83 -108.23 / -558.23 269.5 / 269.5 Lab / Micro Data 12/16/24 03:40 12/16/24 03:40 Labs: Laboratory Results - last 24 hr 12/15/24 21:30: APTT 28.9 12/16/24 03:40: WBC 14.8 H, RBC 4.75, Hgb 11.8 L, Hct 39.7 L, MCV 83.6, MCH 24.8 L, MCHC 29.7 L, RDW Std Deviation 63.8 H, RDW Coeff of Sea 21.3 H, Plt Count 311, MPV 10.3, APTT 98.3 H*, Sodium 146 H, Potassium 4.2, Chloride 111 H, Carbon Dioxide 23.1, Anion Gap 12, BUN 24 H, Creatinine 1.19, Estim Creat Clear Calc 68.70, Est GFR (MDRD) Non-Af 65, BUN/Creatinine Ratio 20.5 H, Glucose 152 H, Calcium 8.8, Magnesium 2.1 Radiography Diagnostic Testing: Radiology Impression KUB X-Ray 12/16/24 10:00 IMPRESSION: Nonobstructive bowel gas pattern. Reading Location: [facility] Physical Exam Const alert, oriented x3 and no apparent distress Constitutional Narrative: Pleasant elderly male, class I obesity, mildly fatigued appearing but otherwise sitting back comfortably in bed, conversing normally, in no acute distress. Stable. General Appearance: cooperative and comfortable HEENT normocephalic, head/scalp atraumatic, hearing grossly normal bilaterally, nasal mucous membranes and turbinates normal and moist oral mucous membranes Eyes PERRL, EOMs intact bilaterally and conjunctivae normal Neck full ROM Chest inspection of chest normal Resp normal respiratory effort and no use of accessory muscles Resp Narrative: Breathing comfortably on 2 L nasal cannula at rest. Mildly decreased breath sounds at bilateral lung bases, otherwise good air movement throughout with no wheezing or crackles noted. Cardio no murmurs and peripheral pulses 2+ throughout Cardio Narrative: A-fib with RVR. GI GI Narrative: Drain in place with serosanguineous fluid noted. Moderate abdominal distention but abdomen otherwise soft and only mildly tender to palpation. Back/Spine normal ROM Extremity normal to inspection, full ROM and no pedal edema Skin no rashes or lesions noted Psych mental status grossly normal Assessment & Plan Assessment/Plan (1) Diverticulitis: (2) Colonic diverticular abscess: (3) Atrial fibrillation with RVR: PLAN: Plan Patient is a 69-year-old male who presented to [facility] ED on 12/13/2024 with worsening abdominal pain. 1. Sigmoid diverticulitis with abscess ? General Surgery following. CT abdomen pelvis on admit showed acute sigmoid diverticulitis with an adjacent 4 cm abscess formation. S/p exploratory laparoscopy with drainage of abscess, washout and drain placement with surgery on 12/15. Patient tolerated procedure well. Per surgery, will remain n.p.o. for now and noted that patient will have poor bowel absorption at this point so will hold p.o. medications for now as well. Continue IV Zosyn. Continue symptom control with IV pain and nausea medications as needed. 2. Paroxysmal A-fib with RVR ? Cardiology following. Follows with cardiology EP in [place]; completed Tikosyn loading followed by cardioversion there last week. Unfortunately was only in sinus rhythm for 2 days before going back into A-fib. Was in A-fib with RVR on arrival here. Placed on Cardizem drip and converted back to normal sinus rhythm by morning of 12/14. Echo 12/14 showed moderately dilated LV, EF 35 to 40%, no other abnormalities and stable from previous. Unfortunately went back into A-fib with RVR on morning of 12/15. Per cardiology, given amiodarone bolus and started on amiodarone drip. Tikosyn, Cardizem and metoprolol discontinued. Patient unfortunately has remained in A-fib with RVR despite the amiodarone, so we will discontinue amiodarone today and restart Cardizem drip with Cardizem bolus. Continue heparin drip for anticoagulation. Continue cardiac monitoring. 3. History of HFrEF, hypertension ? Follows with cardiology in [place]. Last echo in 2022 showed EF 40%. Repeat echo on 12/14 as noted above with no change from previous. Treating with cardizem drip as above. Holding home Entresto and spironolactone. 4. Mild acute hypoxia in setting of COPD ? [employer] following. Not on home oxygen, requiring up to 3 L nasal cannula to maintain appropriate oxygen saturations here. Breathing comfortably and lung sounds clear. Suspect primarily secondary to poor respiratory excursion in setting of abdominal pain from abscess as above. Continue incentive spirometry. Continue home inhalers. Wean supplemental oxygen as able. 5. Class I obesity with KIM ? BMI 33 on admit. Encouraged weight loss. Continue CPAP at night and with naps. DVT prophylaxis: Not indicated, on heparin drip CODE STATUS: Full code, verified Expected disposition: Home, TBD Total clinical time spent by myself addressing the patient's medical issues, reviewing all the data, and collaborating with patient's care team: 35 minutes. Charges/Coding Visit Charges Inpatient E&M: 52086 Subs Hosp L2
[2024-12-16] MEDS: Pantoprazole Sodium 40 MG in 0.9% Normal Saline (100mL MB+) 100 ML 330 MG IV (10:49)
--- NOTE | 2024-12-16 11:14 | PN.SURG_ITS ---
Subjective Subjective Patient seen and evaluated during AM rounds. He is found resting in bed. A CPAP is initially in place but patient is able to remove his mask and his sats maintain in the mid 90s while conversing. Nursing reported increased abdominal distention which patient seems to agree with, however, he also remarks that his pain is much better today. He denies an appetite. Objective Data Objective Data Vital Signs: Vital Signs Temp Pulse Resp BP Pulse Ox O2 Del Method O2 Flow Rate 97.7 F L 142 H 23 H 103/70 98 Nasal Cannula 2 12/16/24 03:22 12/16/24 09:59 12/16/24 09:59 12/16/24 09:59 12/16/24 09:59 12/16/24 09:59 12/16/24 09:59 FiO2 98 12/15/24 12:25 Oxygen Flow Rate (L/min) 2 Oxygen Delivery Method Nasal Cannula Weight: 229 lb 14.4 oz Body Mass Index (BMI) 33.0 Intake & Output: Intake and Output for Last 24 Hours 12/14/24 12/15/24 12/16/24 23:59 23:59 23:59 Intake Total 2125.83 / 2125.83 1631.77 / 1631.77 2162.5 / 2162.5 Output Total 1175 / 1575 1740 / 2190 790 / 790 Balance 950.83 / 550.83 -108.23 / -558.23 1372.5 / 1372.5 Lab / Micro Data 12/16/24 03:40 12/16/24 03:40 Labs: Laboratory Results - last 24 hr 12/15/24 21:30: APTT 28.9 12/16/24 03:40: WBC 14.8 H, RBC 4.75, Hgb 11.8 L, Hct 39.7 L, MCV 83.6, MCH 24.8 L, MCHC 29.7 L, RDW Std Deviation 63.8 H, RDW Coeff of Sea 21.3 H, Plt Count 311, MPV 10.3, APTT 98.3 H*, Sodium 146 H, Potassium 4.2, Chloride 111 H, Carbon Dioxide 23.1, Anion Gap 12, BUN 24 H, Creatinine 1.19, Estim Creat Clear Calc 68.70, Est GFR (MDRD) Non-Af 65, BUN/Creatinine Ratio 20.5 H, Glucose 152 H, Calcium 8.8, Magnesium 2.1 Radiography Diagnostic Testing: Radiology Impression KUB X-Ray 12/16/24 10:00 IMPRESSION: Nonobstructive bowel gas pattern. Reading Location: [facility] Physical Exam Const oriented x3 Constitutional Narrative: Mild distress from abdominal distention Resp Resp Narrative: Mildly tachypneic Cardio Cardio Narrative: A-fib with RVR noted on telemetry GI GI Narrative: At least moderate abdominal distention with tympany on percussion of the epigastrium. Patient confirms mild tenderness about his port site incisions which remain covered with operative dressings. Nursing reports approximately 50 mL of seropurulent drainage from right lower quadrant abdominal drain. Assessment & Plan Assessment/Plan (1) Colonic diverticular abscess: PLAN: Patient is postoperative day 1 from diagnostic laparoscopy with peritoneal drainage secondary to not being amenable to percutaneous drainage by IR. Reportedly reverted to normal sinus rhythm during the case but once again this A-fib with RVR this morning. Actively receiving amiodarone bolus to try to cardiovert. From an abdominal standpoint patient appears to be manifesting a postoperative ileus which is unsurprising given both his intraoperative findings reported by Dr. Harris as well as the peritoneal contamination. Abdominal distention and tympany characterize patient's abdominal exam and while KUB was read as nonobstructive bowel gas pattern there is a significant gastric bubble shown on the plain film. Therefore I have asked for institution of aspiration precautions and will have a low threshold to place nasogastric tube if patient expresses severe nausea or vomiting. Also recommending transition/holding of any oral medications as enteral absorption will be variable if not questionable. Continue n.p.o. status, IV antibiotics, and mobilize as allowed by cardiopulmonary status. Basil Ramírez MD General Surgery Endocrine Surgery Pager: [facility] [address] [place] [address] Office: [phone] Charges/Coding Visit Charges Inpatient E&M: 41165 Subs Hosp L2
[2024-12-16] MEDS: Diltiazem 125 MG in Dextrose 5%-Water (100mL Bag) 100 ML IV (11:47)
[2024-12-16] MEDS: dilTIAZem 25 MG/5 ML Vial 10 MG IV BOLUS (11:47)
[2024-12-16 14:12] LABS: Partial Thromboplast Time 171.6 Seconds (24.1-36.2)
--- NOTE | 2024-12-16 15:41 | PCM.PN.CARD ---
Subjective Subjective Patient seen and evaluated at bedside and daughter were at bedside. He has diverticular abscess underwent laparoscopic drainage by the CTS Symptoms with abdominal pain with mild distention Objective Data Vital Signs: Vital Signs Temp Pulse Resp BP Pulse Ox O2 Del Method O2 Flow Rate 97.5 F L 149 H 24 H 91/76 92 Nasal Cannula 2 12/16/24 12:54 12/16/24 14:15 12/16/24 14:15 12/16/24 14:15 12/16/24 14:15 12/16/24 14:15 12/16/24 14:15 FiO2 98 12/15/24 12:25 Oxygen Flow Rate (L/min) 2 Oxygen Delivery Method Nasal Cannula Weight: 229 lb 14.4 oz Body Mass Index (BMI) 33.0 Intake & Output: Intake and Output for Last 24 Hours 12/14/24 12/15/24 12/16/24 23:59 23:59 23:59 Intake Total 2125.83 / 2125.83 1631.77 / 1631.77 2412.89 / 2412.89 Output Total 1175 / 1575 1740 / 2190 1144 / 1144 Balance 950.83 / 550.83 -108.23 / -558.23 1268.89 / 1268.89 Lab / Micro Data 12/16/24 03:40 12/16/24 03:40 Labs: Laboratory Results - last 24 hr 12/15/24 21:30: APTT 28.9 12/16/24 03:40: WBC 14.8 H, RBC 4.75, Hgb 11.8 L, Hct 39.7 L, MCV 83.6, MCH 24.8 L, MCHC 29.7 L, RDW Std Deviation 63.8 H, RDW Coeff of Sea 21.3 H, Plt Count 311, MPV 10.3, APTT 98.3 H*, Sodium 146 H, Potassium 4.2, Chloride 111 H, Carbon Dioxide 23.1, Anion Gap 12, BUN 24 H, Creatinine 1.19, Estim Creat Clear Calc 68.70, Est GFR (MDRD) Non-Af 65, BUN/Creatinine Ratio 20.5 H, Glucose 152 H, Calcium 8.8, Magnesium 2.1 12/16/24 13:30: APTT 171.6 H* Cardiology Labs/Tests 12/15/24 21:30: APTT 28.9 12/16/24 03:40: WBC 14.8 H, RBC 4.75, Hgb 11.8 L, Hct 39.7 L, MCV 83.6, MCH 24.8 L, MCHC 29.7 L, Plt Count 311, MPV 10.3, APTT 98.3 H*, Sodium 146 H, Potassium 4.2, Chloride 111 H, Carbon Dioxide 23.1, Anion Gap 12, BUN 24 H, Creatinine 1.19, Est GFR (MDRD) Non-Af 65, BUN/Creatinine Ratio 20.5 H, Glucose 152 H, Calcium 8.8, Magnesium 2.1 12/16/24 13:30: APTT 171.6 H* Rhythm: EKG: ECHO: Stress Test: Cardiac Cath: PCI: CT Surgery: Holter monitor: EPS: PPM: CXR: Chest CT Scan: Radiography Diagnostic Testing: Radiology Impression KUB X-Ray 12/16/24 10:00 IMPRESSION: Nonobstructive bowel gas pattern. Reading Location: [facility] Physical Exam Cardio Cardio Narrative: Cardiac rhythm is A-fib with RVR Cardiac exam S1-S2 is irregular Chest exam is clear to auscultation bilateral Abdomen distended. Examination lower extremity no lower extremity edema. Assessment & Plan Assessment/Plan (1) Diverticulitis: (2) Left bundle branch block (LBBB): (3) Atrial fibrillation with RVR: PLAN: Cardiac care plan recommendations 69-year-old patient with colonic diverticular abscess Underwent, exploratory laparoscopic drainage of abscess and washout. Patient seen and evaluated today at bedside daughter and nursing staff Complain of mild abdominal pain quality assurance monitor body showed underlying A-fib with RVR Has been on calcium channel kleber with Cardizem Patient is n.p.o. as per surgical team From cardiac standpoint we will continue the Cardizem, beta-kleber and added digoxin as IV. I reviewed the record from the EP/at [facility] Which showed EF in the range of 35%. Patient currently on heparin Will continue to monitor and follow-up clinically.
[2024-12-16] MEDS: 0.9% Saline Lock 10 ML Syringe IV (16:04)
[2024-12-16] MEDS: Diltiazem 125 MG in Dextrose 5%-Water (100mL Bag) 100 ML 10 MG IV (22:34)
[2024-12-16 22:56] LABS: Partial Thromboplast Time 34.5 Seconds (24.1-36.2)
[2024-12-16] MEDS: Heparin Injection (Vial) 5,000 UNIT/ML VIAL IV (23:06)
[2024-12-17] VITALS (36 sets, daily range): BP systolic 85–125; BP diastolic 51–107; PULSE 102–142; RESP 15–32; TEMP 36–37; O2SAT 85–99; BMI 33.6
[2024-12-17] MEDS: Dextrose 5%-Lactated Ringers 1,000 ML 75 ML IV ×2 (01:06→15:30)
[2024-12-17] MEDS: Digoxin 250 MCG/ML Ampul 125 MCG IV ×2 (03:33→09:28)
[2024-12-17 05:10] LABS: Hematocrit 38.7 % (40-54); Hemoglobin 11.6 g/dL (13.0-16.5); Mean Corpuscular Hgb 24.6 pg (27.0-32.0); Mean Corpuscular Volume 82.2 fL (80-94); Mean Platelet Vol. 10.3 fl (6.2-12.0); POSITIVE MORPHOLOGY YES; Platelet Count 288 K/mm3 (150-450); RBC Distribution Width CV 20.9 % (11.6-14.6); RBC Distribution Width SD 61.2 fl (35.1-43.9); Red Blood Count 4.71 M/mm3 (4.6-6.2)
[2024-12-17] MEDS: Piperacil/Tazobactam 3.375 GM in 0.9% Normal Saline (50mL MB+) 50 ML IV ×3 (05:20→22:10)
[2024-12-17] MEDS: 0.9% Saline Lock 10 ML Syringe IV (05:21)
[2024-12-17] MEDS: Metoprolol Tartrate 5 MG/5 ML Vial IV (05:25)
[2024-12-17 05:34] LABS: Partial Thromboplast Time 44.9 Seconds (24.1-36.2)
[2024-12-17 05:40] LABS: Anion Gap 9 (5-15); BUN 16 mg/dL (4-19); BUN/Creat Ratio 16.8 RATIO (10-20); Calcium,Total 8.5 mg/dL (7.6-11.0); Carbon Dioxide 22.2 mmol/L (21.0-32.0); Chloride 109 mmol/L (98-108); Creatinine, Serum 0.95 mg/dL (0.70-1.20); EST Glomerular Filtration Rate 86 (>60); Estimated Creatinine Clearance 86.26 ml/min (50-250); Glucose 125 mg/dL (70-99); Potassium 3.9 mmol/L (3.3-5.1); Sodium Level 140 mmol/L (133-145)
[2024-12-17 05:45] LABS: Scan Indicated on CBC? Y/N YES- FLAGS NOTED
--- NOTE | 2024-12-17 07:31 | PN.SURG_ITS ---
Subjective Subjective Patient is currently in A-fib with RVR. He reports he has passed flatus. He denies nausea or vomiting. Objective Data Objective Data Vital Signs: Vital Signs Temp Pulse Resp BP Pulse Ox O2 Del Method O2 Flow Rate 98.0 F 131 H 21 H 102/81 H 94 Nasal Cannula 2 12/17/24 03:00 12/17/24 07:00 12/17/24 07:00 12/17/24 07:00 12/17/24 07:00 12/17/24 07:00 12/17/24 07:00 FiO2 98 12/15/24 12:25 Oxygen Flow Rate (L/min) 2 Oxygen Delivery Method Nasal Cannula Weight: 234 lb 9.149 oz Body Mass Index (BMI) 33.6 Intake & Output: Intake and Output for Last 24 Hours 12/15/24 12/16/24 12/17/24 23:59 23:59 23:59 Intake Total 1631.77 / 1631.77 2625.41 / 2635.41 1207 / 1207 Output Total 1740 / 2190 1653 / 1653 800 / 800 Balance -108.23 / -558.23 972.41 / 982.41 407 / 407 Lab / Micro Data 12/17/24 04:59 12/17/24 04:59 Labs: Laboratory Results - last 24 hr 12/16/24 03:40: Magnesium 2.1 12/16/24 13:30: APTT 171.6 H* 12/16/24 22:32: APTT 34.5 12/17/24 04:59: WBC 13.0 H, RBC 4.71, Hgb 11.6 L, Hct 38.7 L, MCV 82.2, MCH 24.6 L, MCHC 30.0 L, RDW Std Deviation 61.2 H, RDW Coeff of Sea 20.9 H, Plt Count 288, MPV 10.3, APTT 44.9 H, Sodium 140, Potassium 3.9, Chloride 109 H, Carbon Dioxide 22.2, Anion Gap 9, BUN 16, Creatinine 0.95, Estim Creat Clear Calc 86.26, Est GFR (MDRD) Non-Af 86, BUN/Creatinine Ratio 16.8, Glucose 125 H, Calcium 8.5 Radiography Diagnostic Testing: Radiology Impression KUB X-Ray 12/16/24 10:00 IMPRESSION: Nonobstructive bowel gas pattern. Reading Location: [facility] Physical Exam Const oriented x3 and no apparent distress Resp normal respiratory effort GI soft to palpation Inspection: abdominal distention Assessment & Plan Assessment/Plan (1) Colonic diverticular abscess: PLAN: Patient is postoperative day 2 from laparoscopic drainage of abscess. Patient began to pass flatus. He went back into A-fib RVR yesterday. He does not report an appetite. His abdomen is softer than it was yesterday but still distended. I would like to wait until he becomes less distended before starting a diet. He is okay for p.o. meds. Continue antibiotics. Delano Harris MD Pager: [facility] [address] [place] [address], [address] [place] [address] Office:
[2024-12-17] MEDS: HEPARIN/D5w 25,000 UNITS 25,000 UNITS/250 ML IV.SOLN. 12 UNITS CONT INF (07:58)
[2024-12-17] MEDS: Pantoprazole Sodium 40 MG in 0.9% Normal Saline (100mL MB+) 100 ML 330 MG IV (09:26)
[2024-12-17] MEDS: Diltiazem 125 MG in Dextrose 5%-Water (100mL Bag) 100 ML 15 MG IV ×2 (10:26→18:31)
--- NOTE | 2024-12-17 11:51 | PCM.PN.HOSP ---
Reason for Visit Reason for Visit: Diagnoses Essential (primary) hypertension (12/13/24) Left bundle-branch block, unspecified (12/13/24) Paroxysmal atrial fibrillation (12/13/24) Unspecified atrial fibrillation (12/13/24) Diverticulitis of large intestine with perforation and abscess without bleeding (12/13/24) Diverticulitis of intestine, part unspecified, without perforation or abscess without bleeding (12/13/24) Unspecified abdominal pain (12/13/24) Abnormal electrocardiogram [ECG] [EKG] (12/13/24) Subjective Subjective Saw patient at bedside this morning, daughter present. Patient was sitting up comfortably in bedside chair, conversing normally, in no acute distress. Noted that he has been passing gas and his abdomen feels slightly less distended today than yesterday. Patient continues to be in A-fib with RVR though his heart rate was in the 100s to 120s more consistently when I saw him. He continues to deny any palpitations. No other new concerns today. Objective Data Objective Data Vital Signs: Vital Signs Temp Pulse Resp BP Pulse Ox O2 Del Method O2 Flow Rate 96.8 F L 102 H 22 H 96/66 97 Nasal Cannula 2 12/17/24 08:42 12/17/24 10:26 12/17/24 10:26 12/17/24 10:26 12/17/24 10:26 12/17/24 08:00 12/17/24 10:26 FiO2 98 12/15/24 12:25 Oxygen Flow Rate (L/min) 2 Oxygen Delivery Method Nasal Cannula Weight: 106.4 kg Body Mass Index (BMI) 33.6 Intake & Output: Intake and Output for Last 24 Hours 12/15/24 12/16/24 12/17/24 23:59 23:59 23:59 Intake Total 1631.77 / 1631.77 2625.41 / 2635.41 1418.52 / 1418.52 Output Total 1740 / 2190 1653 / 1653 800 / 800 Balance -108.23 / -558.23 972.41 / 982.41 618.52 / 618.52 Lab / Micro Data 12/17/24 04:59 12/17/24 04:59 Labs: Laboratory Results - last 24 hr 12/16/24 13:30: APTT 171.6 H* 12/16/24 22:32: APTT 34.5 12/17/24 04:59: WBC 13.0 H, RBC 4.71, Hgb 11.6 L, Hct 38.7 L, MCV 82.2, MCH 24.6 L, MCHC 30.0 L, RDW Std Deviation 61.2 H, RDW Coeff of Sea 20.9 H, Plt Count 288, MPV 10.3, APTT 44.9 H, Sodium 140, Potassium 3.9, Chloride 109 H, Carbon Dioxide 22.2, Anion Gap 9, BUN 16, Creatinine 0.95, Estim Creat Clear Calc 86.26, Est GFR (MDRD) Non-Af 86, BUN/Creatinine Ratio 16.8, Glucose 125 H, Calcium 8.5 Physical Exam Const alert, oriented x3 and no apparent distress Constitutional Narrative: Pleasant elderly male, class I obesity, mildly fatigued appearing but otherwise sitting back comfortably in bed, conversing normally, in no acute distress. Stable. General Appearance: cooperative and comfortable HEENT normocephalic, head/scalp atraumatic, hearing grossly normal bilaterally, nasal mucous membranes and turbinates normal and moist oral mucous membranes Eyes PERRL, EOMs intact bilaterally and conjunctivae normal Neck full ROM Chest inspection of chest normal Resp normal respiratory effort and no use of accessory muscles Resp Narrative: Breathing comfortably on 2 L nasal cannula at rest. Mildly decreased breath sounds at bilateral lung bases, otherwise good air movement throughout with no wheezing or crackles noted. Stable. Cardio no murmurs and peripheral pulses 2+ throughout Cardio Narrative: A-fib with RVR. GI GI Narrative: Drain in place with serosanguineous fluid noted. Mild to moderate abdominal distention but abdomen otherwise soft and only mildly tender to palpation. Improving. Back/Spine normal ROM Extremity normal to inspection, full ROM and no pedal edema Skin no rashes or lesions noted Psych mental status grossly normal Assessment & Plan Assessment/Plan (1) Diverticulitis: (2) Colonic diverticular abscess: (3) Atrial fibrillation with RVR: PLAN: Plan Patient is a 69-year-old male who presented to [facility] ED on 12/13/2024 with worsening abdominal pain. 1. Sigmoid diverticulitis with abscess ? General Surgery following. CT abdomen pelvis on admit showed acute sigmoid diverticulitis with an adjacent 4 cm abscess formation. S/p exploratory laparoscopy with drainage of abscess, washout and drain placement with surgery on 12/15. Patient tolerated procedure well. Slowly improving and is passing flatus. Will remain n.p.o. but patient is okay for p.o. medications at this time. Will continue IV Zosyn. Continue symptom control with IV pain and nausea medications as needed. 2. Paroxysmal A-fib/flutter with RVR ? Cardiology following. Follows with cardiology EP in [place]; completed Tikosyn loading followed by cardioversion there last week. Unfortunately was only in sinus rhythm for 2 days before going back into A-fib. Was in A-fib with RVR on arrival here. Echo 12/14 showed moderately dilated LV, EF 35 to 40%, no other abnormalities and stable from previous. Patient's heart rate has been difficult to control while here. Was on amiodarone for time but this was discontinued on 12/16 as it was ineffective. Patient currently on Cardizem drip and IV Lopressor every 8 hours, and he completed 4 doses of IV digoxin on 12/17. Remains in A-fib/flutter but rate is improved from previous days. Continue heparin drip for anticoagulation. Continue cardiac monitoring. Appreciate cardiology recommendations. 3. History of HFrEF, hypertension ? Follows with cardiology in [place]. Last echo in 2022 showed EF 40%. Repeat echo on 12/14 as noted above with no change from previous. Treating as above. Holding home Entresto and spironolactone. 4. Mild acute hypoxia in setting of COPD ? [employer] following. Not on home oxygen, requiring up to 3 L nasal cannula to maintain appropriate oxygen saturations here. Breathing comfortably and lung sounds clear. Suspect primarily secondary to poor respiratory excursion in setting of abdominal pain from abscess as above. Continue incentive spirometry. Continue home inhalers. Wean supplemental oxygen as able. 5. Class I obesity with KIM ? BMI 33 on admit. Encouraged weight loss. Continue CPAP at night and with naps. DVT prophylaxis: Not indicated, on heparin drip CODE STATUS: Full code, verified Expected disposition: Home, TBD Total clinical time spent by myself addressing the patient's medical issues, reviewing all the data, and collaborating with patient's care team: 35 minutes. Charges/Coding Visit Charges Inpatient E&M: 92082 Subs Hosp L2
[2024-12-17 12:52] LABS: Partial Thromboplast Time 60.5 Seconds (24.1-36.2)
--- NOTE | 2024-12-17 14:18 | CASEMGMT ---
Addendum entered by Ngoc Watkins 12/17/24 14:31: SEKOU COLBERT updated by hospitalist that patient will be here through the weekend. No green sheet placed on chart, CM to follow-up with patient on Friday for discharge planning. CM will continue to follow this patient and plan for a safe discharge. Original Note: SEKOU COLBERT reviewed therapy notes, patient ambulated 200ft SBA with FWW. SEKOU COLBERT in to discuss with patient and family. Patient states he prefers [employer] for DME and will decide if he would like walker at discharge. Will monitor for home oxygen at discharge. Patient denies need for HHC or outpatient therapy. Green sheet placed on chart for possible walker and home oxygen at discharge.
[2024-12-17 19:28] LABS: Partial Thromboplast Time 60.5 Seconds (24.1-36.2)
[2024-12-18] VITALS (34 sets, daily range): BP systolic 87–129; BP diastolic 55–117; PULSE 114–150; RESP 19–30; TEMP 36.4–36.9; O2SAT 86–100; BMI 33.1
[2024-12-18] MEDS: Diltiazem 125 MG in Dextrose 5%-Water (100mL Bag) 100 ML 15 MG IV ×2 (05:04→12:46)
[2024-12-18] MEDS: Piperacil/Tazobactam 3.375 GM in 0.9% Normal Saline (50mL MB+) 50 ML IV ×3 (05:20→21:46)
[2024-12-18 05:40] LABS: Hematocrit 39.7 % (40-54); Hemoglobin 11.8 g/dL (13.0-16.5); Mean Corp Hgb Conc 29.7 g/dL (32-36); Mean Corpuscular Hgb 24.5 pg (27.0-32.0); Mean Corpuscular Volume 82.4 fL (80-94); Mean Platelet Vol. 10.7 fl (6.2-12.0); POSITIVE MORPHOLOGY YES; Platelet Count 284 K/mm3 (150-450); RBC Distribution Width SD 61.9 fl (35.1-43.9); Red Blood Count 4.82 M/mm3 (4.6-6.2); White Blood Count 13.5 K/mm3 (4.4-11.0)
[2024-12-18 05:41] LABS: Scan Indicated on CBC? Y/N YES- FLAGS NOTED
--- NOTE | 2024-12-18 05:49 | PCM.PN.SRG ---
Subjective Subjective Patient seen and evaluated on rounds this morning. He states that he is doing well. He states that he had a bowel movement along with a significant amount of flatus. He states his belly seems much softer than yesterday. Otherwise he is doing well clinically Objective Data Objective Data Vital Signs: Vital Signs Temp Pulse Resp BP Pulse Ox O2 Del Method O2 Flow Rate 98.6 F 120 H 24 H 129/117 H 93 Bi-pap 3 12/17/24 17:00 12/18/24 03:00 12/18/24 03:00 12/18/24 01:00 12/18/24 03:00 12/18/24 01:00 12/18/24 01:00 FiO2 98 12/15/24 12:25 Oxygen Flow Rate (L/min) 3 Oxygen Delivery Method Bi-pap Weight: 231 lb 1.6 oz Body Mass Index (BMI) 33.1 Intake & Output: Intake and Output for Last 24 Hours 12/16/24 12/17/24 12/18/24 23:59 23:59 23:59 Intake Total 2625.41 / 2635.41 2761.62 / 2761.62 152.75 / 152.75 Output Total 1653 / 1653 1720 / 1720 Balance 972.41 / 982.41 1041.62 / 1041.62 152.75 / 152.75 Lab / Micro Data 12/18/24 05:30 12/17/24 04:59 Labs: Laboratory Results - last 24 hr 12/17/24 04:59: WBC 13.0 H, RBC 4.71, Hgb 11.6 L, Hct 38.7 L, MCV 82.2, MCH 24.6 L, MCHC 30.0 L, RDW Std Deviation 61.2 H, RDW Coeff of Sea 20.9 H, Plt Count 288, MPV 10.3 12/17/24 12:15: APTT 60.5 H 12/17/24 18:30: APTT 60.5 H 12/18/24 05:30: WBC 13.5 H, RBC 4.82, Hgb 11.8 L, Hct 39.7 L, MCV 82.4, MCH 24.5 L, MCHC 29.7 L, RDW Std Deviation 61.9 H, RDW Coeff of Sea 21.0 H, Plt Count 284, MPV 10.7 Physical Exam Narrative He is alert and oriented x 3. He is in no acute distress. Abdomen is soft and still somewhat distended. Minimal discomfort with palpation. AMY drain with serosanguineous output. Incisions appear to be clean dry and intact. Assessment & Plan Assessment/Plan (1) Colonic diverticular abscess: PLAN: Plan The patient is a 69-year-old male who presented with diverticulitis with abscess. This abscess was not amenable to percutaneous drainage and so a laparoscopic drainage procedure was performed several days ago. Patient seems to be improving clinically from a surgical standpoint. He has passed gas and had a bowel movement indicating the early return of bowel function. He is still somewhat distended. We will begin a trial of clear liquid diet. Our plan is to advance his diet slowly. Will continue AMY drain. Appreciate medical management. Will continue to follow.
[2024-12-18] MEDS: HEPARIN/D5w 25,000 UNITS 25,000 UNITS/250 ML IV.SOLN. 12 UNITS CONT INF (05:52)
[2024-12-18] MEDS: Dextrose 5%-Lactated Ringers 1,000 ML 75 ML IV ×2 (05:53→19:40)
[2024-12-18] MEDS: Metoprolol Tartrate 5 MG/5 ML Vial IV ×2 (05:53→21:52)
[2024-12-18 06:07] LABS: Anion Gap 9 (5-15); BUN 11 mg/dL (4-19); BUN/Creat Ratio 13.7 RATIO (10-20); Calcium,Total 7.6 mg/dL (7.6-11.0); Chloride 111 mmol/L (98-108); Creatinine, Serum 0.81 mg/dL (0.70-1.20); EST Glomerular Filtration Rate 94 (>60); Estimated Creatinine Clearance 101.43 ml/min (50-250); Glucose 124 mg/dL (70-99); Potassium 3.9 mmol/L (3.3-5.1); Sodium Level 141 mmol/L (133-145)
[2024-12-18 06:32] LABS: Partial Thromboplast Time 40.2 Seconds (24.1-36.2)
--- NOTE | 2024-12-18 09:44 | PCM.PN.HOSP ---
Reason for Visit Reason for Visit: Diagnoses Essential (primary) hypertension (12/13/24) Left bundle-branch block, unspecified (12/13/24) Paroxysmal atrial fibrillation (12/13/24) Unspecified atrial fibrillation (12/13/24) Diverticulitis of large intestine with perforation and abscess without bleeding (12/13/24) Diverticulitis of intestine, part unspecified, without perforation or abscess without bleeding (12/13/24) Unspecified abdominal pain (12/13/24) Abnormal electrocardiogram [ECG] [EKG] (12/13/24) Subjective Subjective Saw patient at bedside this morning. Patient sitting back comfortably in bed, conversing normally, in no acute distress. Was seen by general surgery this morning and started on a clear liquid diet. States he feels slightly improved from a bowel standpoint compared to yesterday. Continues to deny any palpitations. No other new concerns this morning. Objective Data Objective Data Vital Signs: Vital Signs Temp Pulse Resp BP Pulse Ox O2 Del Method O2 Flow Rate 98.4 F 121 H 23 H 89/59 L 91 CPAP 3 12/18/24 08:00 12/18/24 09:00 12/18/24 09:00 12/18/24 09:00 12/18/24 09:00 12/18/24 09:00 12/18/24 09:00 FiO2 98 12/15/24 12:25 Oxygen Flow Rate (L/min) 3 Oxygen Delivery Method CPAP Weight: 104.825 kg Body Mass Index (BMI) 33.1 Intake & Output: Intake and Output for Last 24 Hours 12/16/24 12/17/24 12/18/24 23:59 23:59 23:59 Intake Total 2625.41 / 2635.41 2761.62 / 2761.62 1253.15 / 1253.15 Output Total 1653 / 1653 1720 / 1720 800 / 800 Balance 972.41 / 982.41 1041.62 / 1041.62 453.15 / 453.15 Lab / Micro Data 12/18/24 05:30 12/18/24 05:30 Labs: Laboratory Results - last 24 hr 12/17/24 04:59: WBC 13.0 H, RBC 4.71, Hgb 11.6 L, Hct 38.7 L, MCV 82.2, MCH 24.6 L, MCHC 30.0 L, RDW Std Deviation 61.2 H, RDW Coeff of Sea 20.9 H, Plt Count 288, MPV 10.3 12/17/24 12:15: APTT 60.5 H 12/17/24 18:30: APTT 60.5 H 12/18/24 05:30: WBC 13.5 H, RBC 4.82, Hgb 11.8 L, Hct 39.7 L, MCV 82.4, MCH 24.5 L, MCHC 29.7 L, RDW Std Deviation 61.9 H, RDW Coeff of Sea 21.0 H, Plt Count 284, MPV 10.7, APTT 40.2 H, Sodium 141, Potassium 3.9, Chloride 111 H, Carbon Dioxide 21.0, Anion Gap 9, BUN 11, Creatinine 0.81, Estim Creat Clear Calc 101.43, Est GFR (MDRD) Non-Af 94, BUN/Creatinine Ratio 13.7, Glucose 124 H, Calcium 7.6 Physical Exam Const alert, oriented x3 and no apparent distress Constitutional Narrative: Pleasant elderly male, class I obesity, mildly fatigued appearing but otherwise sitting back comfortably in bed, conversing normally, in no acute distress. Stable. General Appearance: cooperative and comfortable HEENT normocephalic, head/scalp atraumatic, hearing grossly normal bilaterally, nasal mucous membranes and turbinates normal and moist oral mucous membranes Eyes PERRL, EOMs intact bilaterally and conjunctivae normal Neck full ROM Chest inspection of chest normal Resp normal respiratory effort and no use of accessory muscles Resp Narrative: Breathing comfortably on 3 L nasal cannula at rest. Mildly decreased breath sounds at bilateral lung bases, otherwise good air movement throughout with no wheezing or crackles noted. Stable. Cardio no murmurs and peripheral pulses 2+ throughout Cardio Narrative: A-fib with RVR. GI GI Narrative: Drain in place with serosanguineous fluid noted. Mild abdominal distention but abdomen otherwise soft and only mildly tender to palpation. Improving. Back/Spine normal ROM Extremity normal to inspection, full ROM and no pedal edema Skin no rashes or lesions noted Psych mental status grossly normal Assessment & Plan Assessment/Plan (1) Diverticulitis: (2) Colonic diverticular abscess: (3) Atrial fibrillation with RVR: PLAN: Plan Patient is a 69-year-old male who presented to [facility] ED on 12/13/2024 with worsening abdominal pain. 1. Sigmoid diverticulitis with abscess ? General Surgery following. CT abdomen pelvis on admit showed acute sigmoid diverticulitis with an adjacent 4 cm abscess formation. S/p exploratory laparoscopy with drainage of abscess, washout and drain placement with surgery on 12/15. Patient tolerated procedure well. Slowly improving and is passing flatus. Initiated on clear liquid diet on 12/18. Continue IV Zosyn. Continue symptom control with IV pain and nausea medications as needed. 2. Paroxysmal A-fib/flutter with RVR ? Cardiology following. Follows with cardiology EP in [place]; completed Tikosyn loading followed by cardioversion there last week. Unfortunately was only in sinus rhythm for 2 days before going back into A-fib. Was in A-fib with RVR on arrival here. Echo 12/14 showed moderately dilated LV, EF 35 to 40%, no other abnormalities and stable from previous. Patient's heart rate has been difficult to control while here. Was on amiodarone for time but this was discontinued on 12/16 as it was ineffective. Completed 4 doses of IV digoxin on 12/17. Patient currently on Cardizem drip, IV Lopressor every 8 hours and IV digoxin daily. Remains in A-fib/flutter but rate is somewhat improved from previous days. Continue heparin drip for anticoagulation. Continue cardiac monitoring. Appreciate cardiology recommendations. 3. History of HFrEF, hypertension ? Follows with cardiology in [place]. Last echo in 2022 showed EF 40%. Repeat echo on 12/14 as noted above with no change from previous. Treating as above. Holding home Entresto and spironolactone. 4. Mild acute hypoxia in setting of COPD ? [employer] following. Not on home oxygen, requiring up to 3 L nasal cannula to maintain appropriate oxygen saturations here. Breathing comfortably and lung sounds clear. Suspect primarily secondary to poor respiratory excursion in setting of abdominal pain from abscess as above. Continue incentive spirometry. Continue home inhalers. Wean supplemental oxygen as able. 5. Class I obesity with KIM ? BMI 33 on admit. Encouraged weight loss. Continue CPAP at night and with naps. DVT prophylaxis: Not indicated, on heparin drip CODE STATUS: Full code, verified Expected disposition: Home, TBD Total clinical time spent by myself addressing the patient's medical issues, reviewing all the data, and collaborating with patient's care team: 35 minutes. Charges/Coding Visit Charges Inpatient E&M: 50606 Subs Hosp L2
[2024-12-18] MEDS: Digoxin 250 MCG/ML Ampul 125 MCG IV (10:21)
[2024-12-18] MEDS: Ensure Plus High Protein 120 ML LIQUID PO (10:22)
[2024-12-18] MEDS: Pantoprazole Sodium 40 MG in 0.9% Normal Saline (100mL MB+) 100 ML 330 MG IV (10:22)
[2024-12-18 13:29] LABS: Partial Thromboplast Time 34.7 Seconds (24.1-36.2)
[2024-12-18] MEDS: Heparin Injection (Vial) 5,000 UNIT/ML VIAL IV ×2 (13:35→20:22)
[2024-12-18] MEDS: Furosemide 40 MG/4 ML Vial IV ×2 (13:47→18:08)
[2024-12-18] MEDS: 0.9% Saline Lock 10 ML Syringe IV ×4 (13:47→21:50)
--- NOTE | 2024-12-18 15:11 | PCM.PN.CARD ---
Subjective Subjective Patient seen and evaluated at bedside at bedside Lying in bed, abdomen still distended Less discomfort and less abdominal pain. Objective Data Vital Signs: Vital Signs Temp Pulse Resp BP Pulse Ox O2 Del Method O2 Flow Rate 98.0 F 128 H 22 H 113/81 H 98 Nasal Cannula 2 12/18/24 11:00 12/18/24 14:00 12/18/24 13:00 12/18/24 14:00 12/18/24 14:00 12/18/24 14:00 12/18/24 14:00 FiO2 98 12/15/24 12:25 Oxygen Flow Rate (L/min) 2 Oxygen Delivery Method Nasal Cannula Weight: 231 lb 1.6 oz Body Mass Index (BMI) 33.1 Intake & Output: Intake and Output for Last 24 Hours 12/16/24 12/17/24 12/18/24 23:59 23:59 23:59 Intake Total 2625.41 / 2635.41 2761.62 / 2761.62 1731.45 / 1731.45 Output Total 1653 / 1653 1720 / 1720 1130 / 1130 Balance 972.41 / 982.41 1041.62 / 1041.62 601.45 / 601.45 Lab / Micro Data 12/18/24 05:30 12/18/24 05:30 Labs: Laboratory Results - last 24 hr 12/17/24 18:30: APTT 60.5 H 12/18/24 05:30: WBC 13.5 H, RBC 4.82, Hgb 11.8 L, Hct 39.7 L, MCV 82.4, MCH 24.5 L, MCHC 29.7 L, RDW Std Deviation 61.9 H, RDW Coeff of Sea 21.0 H, Plt Count 284, MPV 10.7, APTT 40.2 H, Sodium 141, Potassium 3.9, Chloride 111 H, Carbon Dioxide 21.0, Anion Gap 9, BUN 11, Creatinine 0.81, Estim Creat Clear Calc 101.43, Est GFR (MDRD) Non-Af 94, BUN/Creatinine Ratio 13.7, Glucose 124 H, Calcium 7.6 12/18/24 12:56: APTT 34.7 Cardiology Labs/Tests 12/17/24 18:30: APTT 60.5 H 12/18/24 05:30: WBC 13.5 H, RBC 4.82, Hgb 11.8 L, Hct 39.7 L, MCV 82.4, MCH 24.5 L, MCHC 29.7 L, Plt Count 284, MPV 10.7, APTT 40.2 H, Sodium 141, Potassium 3.9, Chloride 111 H, Carbon Dioxide 21.0, Anion Gap 9, BUN 11, Creatinine 0.81, Est GFR (MDRD) Non-Af 94, BUN/Creatinine Ratio 13.7, Glucose 124 H, Calcium 7.6 12/18/24 12:56: APTT 34.7 Rhythm: EKG: ECHO: Stress Test: Cardiac Cath: PCI: CT Surgery: Holter monitor: EPS: PPM: CXR: Chest CT Scan: Physical Exam Cardio Cardio Narrative: Cardiac examination; review of cardiac telemetry showed atrial flutter with rapid ventricular rate On cardiac exam S1-S2 is irregular Chest exam mildly diminished air entry bilateral Examination of the abdomen distended with mild generalized tenderness on palpation. Examination lower extremity no lower extremity edema. Assessment & Plan Assessment/Plan (1) PAF (paroxysmal atrial fibrillation): (2) Essential (primary) hypertension: (3) Diverticulitis: (4) Atrial flutter with rapid ventricular response: PLAN: 69-year-old patient with history of diverticulitis With abscess underwent exploratory laparoscopic drainage and washout by the surgical team. Patient has atrial flutter with variable ventricular rate and has been seen by the EP And was on Tikosyn on which I discontinued due to reduced LV function Ejection fraction in the range of 35-40% Patient has a chronic left bundle branch block Paroxysmal atrial fibrillation He has been on rate control using Cardizem beta-kleber and digoxin still he had a very fast ventricular rate of around 120?130. Cardiac care plan; I discontinued the Cardizem I started on amiodarone IV as per protocol Will continue on the Lopressor IV as well as the digoxin. Patient has a distended abdomen with diverticulitis and abscess. Will not be a good candidate for a TAYLOR at this point we will continue for rate control In addition I discussed guideline directed medical therapy for the reduced EF he had a moderate LV dysfunction ejection fraction the range of 35-40% To start on Entresto he has been on Entresto before in addition to Aldactone and Farxiga. Once he is stable and completed treatment for the diverticular abscess patient to follow-up with the EP for continuation of cardiac care. I explained this in detail to the patient and the family his daughter is a ICU nurse.
[2024-12-18] MEDS: Amiodarone 150 MG in Dextrose 5%-Water (100mL Bag) 100 ML 600 MG IV BOLUS (15:30)
[2024-12-18] MEDS: Amiodarone 360 MG in Dextrose 5% Viaflo Bag 192.8 ML 33.3 MG CONT INF (15:51)
[2024-12-18 19:56] LABS: Partial Thromboplast Time 32.2 Seconds (24.1-36.2)
[2024-12-18] MEDS: Amiodarone 360 MG in Dextrose 5% Viaflo Bag 192.8 ML 16.7 MG CONT INF (21:45)
[2024-12-19] VITALS (31 sets, daily range): BP systolic 91–133; BP diastolic 56–100; PULSE 109–160; RESP 16–33; TEMP 36.4–36.6; O2SAT 90–99; BMI 32.5
[2024-12-19 03:23] LABS: Hematocrit 36.6 % (40-54); Hemoglobin 11.2 g/dL (13.0-16.5); Mean Corp Hgb Conc 30.6 g/dL (32-36); Mean Corpuscular Hgb 24.6 pg (27.0-32.0); Mean Corpuscular Volume 80.4 fL (80-94); Mean Platelet Vol. 10.2 fl (6.2-12.0); POSITIVE MORPHOLOGY YES; Platelet Count 290 K/mm3 (150-450); RBC Distribution Width CV 20.3 % (11.6-14.6); RBC Distribution Width SD 58.8 fl (35.1-43.9); Red Blood Count 4.55 M/mm3 (4.6-6.2); White Blood Count 14.6 K/mm3 (4.4-11.0)
[2024-12-19 03:42] LABS: Partial Thromboplast Time 62.5 Seconds (24.1-36.2)
[2024-12-19 03:45] LABS: Scan Indicated on CBC? Y/N YES- FLAGS NOTED
[2024-12-19 04:02] LABS: Anion Gap 11 (5-15); BUN 9 mg/dL (4-19); BUN/Creat Ratio 10.3 RATIO (10-20); Calcium,Total 7.9 mg/dL (7.6-11.0); Carbon Dioxide 23.9 mmol/L (21.0-32.0); Chloride 100 mmol/L (98-108); Creatinine, Serum 0.91 mg/dL (0.70-1.20); EST Glomerular Filtration Rate 90 (>60); Estimated Creatinine Clearance 90.28 ml/min (50-250); Glucose 135 mg/dL (70-99); Potassium 3.2 mmol/L (3.3-5.1); Sodium Level 135 mmol/L (133-145)
[2024-12-19] MEDS: HEPARIN/D5w 25,000 UNITS 25,000 UNITS/250 ML IV.SOLN. 16 UNITS CONT INF (04:10)
[2024-12-19] MEDS: Piperacil/Tazobactam 3.375 GM in 0.9% Normal Saline (50mL MB+) 50 ML IV ×3 (05:10→20:44)
[2024-12-19] MEDS: Metoprolol Tartrate 5 MG/5 ML Vial IV ×3 (05:13→20:41)
--- NOTE | 2024-12-19 08:43 | PCM.PN.HOSP ---
Reason for Visit Reason for Visit: Diagnoses Essential (primary) hypertension (12/13/24) Left bundle-branch block, unspecified (12/13/24) Paroxysmal atrial fibrillation (12/13/24) Unspecified atrial fibrillation (12/13/24) Unspecified atrial flutter (12/13/24) Diverticulitis of large intestine with perforation and abscess without bleeding (12/13/24) Diverticulitis of intestine, part unspecified, without perforation or abscess without bleeding (12/13/24) Unspecified abdominal pain (12/13/24) Abnormal electrocardiogram [ECG] [EKG] (12/13/24) Subjective Subjective Saw patient at bedside this morning. Patient was about to work with therapy when I saw him. Stated he a bit better today than yesterday after eating some fluid off with the IV Lasix. Has been tolerating the clear liquid diet well. No other new concerns today. Objective Data Objective Data Vital Signs: Vital Signs Temp Pulse Resp BP Pulse Ox O2 Del Method O2 Flow Rate 97.8 F 133 H 26 H 131/91 H 97 Nasal Cannula 2 12/19/24 03:00 12/19/24 08:00 12/19/24 08:00 12/19/24 08:00 12/19/24 08:00 12/19/24 08:00 12/19/24 08:00 FiO2 98 12/15/24 12:25 Oxygen Flow Rate (L/min) 2 Oxygen Delivery Method Nasal Cannula Weight: 103.328 kg Body Mass Index (BMI) 32.5 Intake & Output: Intake and Output for Last 24 Hours 12/17/24 12/18/24 12/19/24 23:59 23:59 23:59 Intake Total 2761.62 / 2761.62 3367.05 / 3383.75 245.83 / 245.83 Output Total 1720 / 1720 4710 / 4740 387 / 387 Balance 1041.62 / 1041.62 -1342.95 / -1356.25 -141.17 / -141.17 Lab / Micro Data 12/19/24 03:10 12/19/24 03:10 Labs: Laboratory Results - last 24 hr 12/18/24 12:56: APTT 34.7 12/18/24 19:35: APTT 32.2 12/19/24 03:10: WBC 14.6 H, RBC 4.55 L, Hgb 11.2 L, Hct 36.6 L, MCV 80.4, MCH 24.6 L, MCHC 30.6 L, RDW Std Deviation 58.8 H, RDW Coeff of Sea 20.3 H, Plt Count 290, MPV 10.2, APTT 62.5 H, Sodium 135, Potassium 3.2 L, Chloride 100, Carbon Dioxide 23.9, Anion Gap 11, BUN 9, Creatinine 0.91, Estim Creat Clear Calc 90.28, Est GFR (MDRD) Non-Af 90, BUN/Creatinine Ratio 10.3, Glucose 135 H, Calcium 7.9 Physical Exam Const alert, oriented x3 and no apparent distress Constitutional Narrative: Pleasant elderly male, class I obesity, mildly fatigued appearing but otherwise sitting back comfortably in bed, conversing normally, in no acute distress. Stable. General Appearance: cooperative and comfortable HEENT normocephalic, head/scalp atraumatic, hearing grossly normal bilaterally, nasal mucous membranes and turbinates normal and moist oral mucous membranes Eyes PERRL, EOMs intact bilaterally and conjunctivae normal Neck full ROM Chest inspection of chest normal Resp normal respiratory effort and no use of accessory muscles Resp Narrative: Breathing comfortably on 2 L nasal cannula at rest. Mildly decreased breath sounds at bilateral lung bases, otherwise good air movement throughout with no wheezing or crackles noted. Stable. Cardio no murmurs and peripheral pulses 2+ throughout Cardio Narrative: A-fib with RVR. GI GI Narrative: Drain in place with serosanguineous fluid noted. Mild abdominal distention but abdomen otherwise soft and only mildly tender to palpation. Improving. Back/Spine normal ROM Extremity normal to inspection, full ROM and no pedal edema Skin no rashes or lesions noted Psych mental status grossly normal Assessment & Plan Assessment/Plan (1) Diverticulitis: (2) Colonic diverticular abscess: (3) Atrial fibrillation with RVR: PLAN: Plan Patient is a 69-year-old male who presented to [facility] ED on 12/13/2024 with worsening abdominal pain. 1. Sigmoid diverticulitis with abscess ? General Surgery following. CT abdomen pelvis on admit showed acute sigmoid diverticulitis with an adjacent 4 cm abscess formation. S/p exploratory laparoscopy with drainage of abscess, washout and drain placement with surgery on 12/15. Patient tolerated procedure well. Slowly improving and is passing flatus. Initiated on clear liquid diet on 12/18. Continue IV Zosyn. Continue symptom control with IV pain and nausea medications as needed. 2. Paroxysmal A-fib/flutter with RVR ? Cardiology following. Follows with cardiology EP in [place]; completed Tikosyn loading followed by cardioversion there last week. Unfortunately was only in sinus rhythm for 2 days before going back into A-fib. Was in A-fib with RVR on arrival here. Echo 12/14 showed moderately dilated LV, EF 35 to 40%, no other abnormalities and stable from previous. Patient's heart rate has been difficult to control while here. Completed 4 doses of IV digoxin on 12/17. Currently treating with IV amiodarone, IV Lopressor every 8 hours and IV digoxin daily. Remains in A-fib/flutter but rate is somewhat improved from previous days. Continue heparin drip for anticoagulation. Continue cardiac monitoring. Appreciate cardiology recommendations. 3. History of HFrEF, hypertension ? Follows with cardiology in [place]. Last echo in 2022 showed EF 40%. Repeat echo on 12/14 as noted above with no change from previous. Lasix had been held for several days with borderline low blood pressures but patient weight was increasing and she appeared more volume overloaded with slightly worsening oxygen requirements. Started on IV Lasix 40 mg twice daily on 12/18 with good urine output; will continue this through 12/19 and plan to resume home p.o. Lasix 40 mg daily on 12/20. Per cardiology recommendations, will start Entresto at low-dose on 12/19. Continue to monitor closely. 4. Mild acute hypoxia in setting of COPD ? 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 Not on home oxygen, requiring up to 3 L nasal cannula to maintain appropriate oxygen saturations here. Breathing comfortably and lung sounds clear. Suspect primarily secondary to poor respiratory excursion in setting of abdominal pain from abscess as above. Continue incentive spirometry. Continue home inhalers. Wean supplemental oxygen as able. 5. Class I obesity with KIM ? BMI 33 on admit. Encouraged weight loss. Continue CPAP at night and with naps. DVT prophylaxis: Not indicated, on heparin drip CODE STATUS: Full code, verified Expected disposition: Home, TBD Total clinical time spent by myself addressing the patient's medical issues, reviewing all the data, and collaborating with patient's care team: 35 minutes. Charges/Coding Visit Charges Inpatient E&M: 18964 Subs Hosp L2
[2024-12-19] MEDS: Potassium Chloride Oral Tablet 20 MEQ 40 MEQ PO (09:22)
[2024-12-19] MEDS: SACUBITRIL/VALSARTAN 24/26 MG TABLET 1 EACH PO ×2 (09:23→20:41)
[2024-12-19] MEDS: Digoxin 250 MCG/ML Ampul 125 MCG IV (09:23)
[2024-12-19] MEDS: Furosemide 40 MG/4 ML Vial IV ×2 (09:23→17:42)
[2024-12-19] MEDS: Pantoprazole Sodium 40 MG in 0.9% Normal Saline (100mL MB+) 100 ML 330 MG IV (09:25)
[2024-12-19] MEDS: Amiodarone 360 MG in Dextrose 5% Viaflo Bag 192.8 ML 16.7 MG CONT INF ×2 (09:26→20:22)
[2024-12-19 10:52] LABS: Partial Thromboplast Time 54.7 Seconds (24.1-36.2)
--- NOTE | 2024-12-19 13:23 | PN.CARD_ITS ---
Subjective Subjective Seen and evaluated at bedside Discussed with the nursing staff his abdominal pain and distention is improving gradually. However on the monitor and storage bin tender he still had an atrial flutter with RVR. Rate of around 140s. Objective Data Vital Signs: Vital Signs Temp Pulse Resp BP Pulse Ox O2 Del Method O2 Flow Rate 97.8 F 147 H 21 H 98/82 H 90 Room Air 2.5 12/19/24 09:00 12/19/24 10:00 12/19/24 10:00 12/19/24 10:00 12/19/24 10:40 12/19/24 10:00 12/19/24 10:40 FiO2 98 12/15/24 12:25 Oxygen Flow Rate (L/min) 2.5 Oxygen Delivery Method Room Air Weight: 227 lb 12.8 oz Body Mass Index (BMI) 32.5 Intake & Output: Intake and Output for Last 24 Hours 12/17/24 12/18/24 12/19/24 23:59 23:59 23:59 Intake Total 2761.62 / 2761.62 3367.05 / 3383.75 1544.47 / 1544.47 Output Total 1720 / 1720 4710 / 4740 387 / 387 Balance 1041.62 / 1041.62 -1342.95 / -1356.25 1157.47 / 1157.47 Lab / Micro Data 12/19/24 03:10 12/19/24 03:10 Labs: Laboratory Results - last 24 hr 12/18/24 12:56: APTT 34.7 12/18/24 19:35: APTT 32.2 12/19/24 03:10: WBC 14.6 H, RBC 4.55 L, Hgb 11.2 L, Hct 36.6 L, MCV 80.4, MCH 24.6 L, MCHC 30.6 L, RDW Std Deviation 58.8 H, RDW Coeff of Sea 20.3 H, Plt Count 290, MPV 10.2, APTT 62.5 H, Sodium 135, Potassium 3.2 L, Chloride 100, Carbon Dioxide 23.9, Anion Gap 11, BUN 9, Creatinine 0.91, Estim Creat Clear Calc 90.28, Est GFR (MDRD) Non-Af 90, BUN/Creatinine Ratio 10.3, Glucose 135 H, Calcium 7.9 12/19/24 09:47: APTT Cancelled 12/19/24 10:35: APTT 54.7 H Cardiology Labs/Tests 12/18/24 12:56: APTT 34.7 12/18/24 19:35: APTT 32.2 12/19/24 03:10: WBC 14.6 H, RBC 4.55 L, Hgb 11.2 L, Hct 36.6 L, MCV 80.4, MCH 24.6 L, MCHC 30.6 L, Plt Count 290, MPV 10.2, APTT 62.5 H, Sodium 135, Potassium 3.2 L, Chloride 100, Carbon Dioxide 23.9, Anion Gap 11, BUN 9, Creatinine 0.91, Est GFR (MDRD) Non-Af 90, BUN/Creatinine Ratio 10.3, Glucose 135 H, Calcium 7.9 12/19/24 09:47: APTT Cancelled 12/19/24 10:35: APTT 54.7 H Rhythm: EKG: ECHO: Stress Test: Cardiac Cath: PCI: CT Surgery: Holter monitor: EPS: PPM: CXR: Chest CT Scan: Physical Exam Cardio Cardio Narrative: Cardiac rhythm revealed atrial flutter with rapid ventricular rate Cardiac exam S1-S2 is regular Chest exam diminished air entry bilateral Observation abdomen abdomen is still distended With mild tenderness Examination lower extremity no lower extremity edema noted. Assessment & Plan Assessment/Plan (1) Atrial flutter with rapid ventricular response: (2) Colonic diverticular abscess: (3) Diverticulitis: (4) Left bundle branch block (LBBB): PLAN: 69-year-old patient seen and evaluated today at bedside in ICU Patient had sigmoid diverticulitis with abscess Seen and followed by surgery Status post exploratory laparoscopy with drainage of the abscess and washout. From cardiac standpoint patient has paroxysmal atrial flutter/A-fib with RVR. And it was difficult to control the ventricular rate on multiple medication Patient does have a history of moderate LV dysfunction. He received IV digoxin, amiodarone as well as IV Lopressor. Prior to that he did not respond well to the IV Cardizem. Not a good choice due to the negative inotropic effect. Patient also has chronic left bundle branch block. EF in the range of 35-40% and has been seen and followed by the distributor publications here in [place] where he had synchronized cardioversion. And has been on Tikosyn. Tikosyn discontinued due to reduced LV function moderate. Patient currently on IV beta-kleber, IV digoxin and IV amiodarone in addition to heparin. Cardiac care plan; Will consider TAYLOR guided synchronized cardioversion Patient to be transferred back to the distributor publications to discuss further plan Also will need evaluation and workup for myocardial ischemia possible Lexiscan sestamibi which can be set up following discharge as an outpatient. In regards to the atrial fibrillation Will continue the current medication.
--- NOTE | 2024-12-19 14:09 | PCM.PN.SRG ---
Subjective Subjective Patient seen and evaluated on rounds earlier today. Patient states that he has been tolerating a clear liquid diet thus far. He does admit that he has been pretty cautious in terms of eating/drinking. He denies any nausea or vomiting. He does admit to passing flatus to a fairly sizable extent. He denies any other symptoms or problems. Objective Data Objective Data Vital Signs: Vital Signs Temp Pulse Resp BP Pulse Ox O2 Del Method O2 Flow Rate 97.8 F 147 H 21 H 98/82 H 90 Room Air 2.5 12/19/24 09:00 12/19/24 10:00 12/19/24 10:00 12/19/24 10:00 12/19/24 10:40 12/19/24 10:12/19/24 10:40 FiO2 98 12/15/24 12:25 Oxygen Flow Rate (L/min) 2.5 Oxygen Delivery Method Room Air Weight: 227 lb 12.8 oz Body Mass Index (BMI) 32.5 Intake & Output: Intake and Output for Last 24 Hours 12/17/24 12/18/24 12/19/24 23:59 23:59 23:59 Intake Total 2761.62 / 2761.62 3367.05 / 3383.75 1544.47 / 1544.47 Output Total 1720 / 1720 4710 / 4740 387 / 387 Balance 1041.62 / 1041.62 -1342.95 / -1356.25 1157.47 / 1157.47 Lab / Micro Data 12/19/24 03:10 12/19/24 03:10 Labs: Laboratory Results - last 24 hr 12/18/24 19:35: APTT 32.2 12/19/24 03:10: WBC 14.6 H, RBC 4.55 L, Hgb 11.2 L, Hct 36.6 L, MCV 80.4, MCH 24.6 L, MCHC 30.6 L, RDW Std Deviation 58.8 H, RDW Coeff of Sea 20.3 H, Plt Count 290, MPV 10.2, APTT 62.5 H, Sodium 135, Potassium 3.2 L, Chloride 100, Carbon Dioxide 23.9, Anion Gap 11, BUN 9, Creatinine 0.91, Estim Creat Clear Calc 90.28, Est GFR (MDRD) Non-Af 90, BUN/Creatinine Ratio 10.3, Glucose 135 H, Calcium 7.9 12/19/24 09:47: APTT Cancelled 12/19/24 10:35: APTT 54.7 H Physical Exam Narrative He is alert and oriented x 3. He is in no acute distress. Abdomen is soft, nontender and nondistended. Incision dressings clean dry and intact. Assessment & Plan Assessment/Plan (1) Colonic diverticular abscess: PLAN: Plan The patient is a 69-year-old male who presented with diverticulitis with abscess. This abscess was not amenable to percutaneous drainage and so a laparoscopic drainage procedure was performed several days ago. Patient seems to be improving clinically from a surgical standpoint. He has continued to pass flatus indicating the early return of bowel function. He has tolerated clear liquid diet thus far. Our plan is to advance his diet slowly. Will advance to full liquid diet. Will continue AMY drain. Appreciate medical management. Will continue to follow.
[2024-12-19] MEDS: 0.9% Saline Lock 10 ML Syringe IV (17:42)
[2024-12-19 18:03] LABS: Partial Thromboplast Time 49.8 Seconds (24.1-36.2)
[2024-12-19] MEDS: HEPARIN/D5w 25,000 UNITS 25,000 UNITS/250 ML IV.SOLN. 17 UNITS CONT INF (22:04)
[2024-12-20] VITALS (21 sets, daily range): BP systolic 95–123; BP diastolic 61–100; PULSE 117–146; RESP 18–36; TEMP 36.5–36.6; O2SAT 94–98; BMI 33.2
[2024-12-20 00:59] LABS: Partial Thromboplast Time 61.6 Seconds (24.1-36.2)
[2024-12-20 04:15] LABS: Hematocrit 38.9 % (40-54); Hemoglobin 11.6 g/dL (13.0-16.5); Mean Corp Hgb Conc 29.8 g/dL (32-36); Mean Corpuscular Hgb 24.3 pg (27.0-32.0); Mean Corpuscular Volume 81.4 fL (80-94); Mean Platelet Vol. 10.6 fl (6.2-12.0); POSITIVE MORPHOLOGY YES; Platelet Count 338 K/mm3 (150-450); RBC Distribution Width CV 20.7 % (11.6-14.6); RBC Distribution Width SD 59.7 fl (35.1-43.9); Red Blood Count 4.78 M/mm3 (4.6-6.2); White Blood Count 15.1 K/mm3 (4.4-11.0)
[2024-12-20 04:34] LABS: Partial Thromboplast Time 52.9 Seconds (24.1-36.2)
[2024-12-20 04:39] LABS: Scan Indicated on CBC? Y/N YES- FLAGS NOTED
[2024-12-20 04:47] LABS: Anion Gap 14 (5-15); BUN 12 mg/dL (4-19); BUN/Creat Ratio 11.5 RATIO (10-20); Calcium,Total 8.1 mg/dL (7.6-11.0); Carbon Dioxide 21.5 mmol/L (21.0-32.0); Chloride 100 mmol/L (98-108); Creatinine, Serum 1.02 mg/dL (0.70-1.20); EST Glomerular Filtration Rate 79 (>60); Estimated Creatinine Clearance 79.98 ml/min (50-250); Glucose 96 mg/dL (70-99); Potassium 3.3 mmol/L (3.3-5.1); Sodium Level 136 mmol/L (133-145)
[2024-12-20] MEDS: Piperacil/Tazobactam 3.375 GM in 0.9% Normal Saline (50mL MB+) 50 ML IV ×3 (05:23→21:25)
[2024-12-20] MEDS: Metoprolol Tartrate 5 MG/5 ML Vial IV ×2 (05:26→17:02)
--- NOTE | 2024-12-20 05:26 | EKG12_ITS ---
Test Reason : AM EKG Blood Pressure : */* mmHG Vent. Rate : 151 BPM Atrial Rate : * BPM P-R Int : * ms QRS Dur : 126 ms QT Int : 316 ms P-R-T Axes : * 72 244 degrees QTcB Int : 500 ms Critical Test Result: High HR Atrial fibrillation with rapid ventricular response Left bundle branch block Abnormal ECG When compared with ECG of 15-Dec-2024 07:25, MANUAL COMPARISON REQUIRED DATA IS UNCONFIRMED Confirmed by Basil Hunter [id number]), script editor BILL LÓPEZ ([id number]) on 12/21/2024 8:06:25 AM Referred By: JOANNE Confirmed By: Basil Hunter
--- NOTE | 2024-12-20 05:55 | EKG12_ITS ---
Test Reason : Blood Pressure : */* mmHG Vent. Rate : 156 BPM Atrial Rate : * BPM P-R Int : * ms QRS Dur : 124 ms QT Int : 324 ms P-R-T Axes : * 67 220 degrees QTcB Int : 522 ms Critical Test Result: High HR Atrial fibrillation with rapid ventricular response Non-specific intra-ventricular conduction delay Minimal voltage criteria for LVH, may be normal variant ( [place] product ) ST & T wave abnormality, consider inferolateral ischemia Abnormal ECG When compared with ECG of 14-Dec-2024 01:22, MANUAL COMPARISON REQUIRED DATA IS UNCONFIRMED Confirmed by Basil Hunter ([id number]), editorial assistant CARTER AKINS ([id number]) on 12/20/2024 1:21:57 PM Referred By: Toño Confirmed By: Basil Hunter
--- NOTE | 2024-12-20 08:16 | NURSING ---
Patient had IV infiltrate overnight with amiodarone. Warm compress was given by no hyaluronidase was ordered or given. IV removed at 0544 and area marked with skin marker. Dayswoody BAY notified to see if we should still order hyaluronidase since it has been longer than one hour since infiltration. MD asked RN to contact pharmacist for further instructions. Pharmacist, Madeline, looked into it and stated that since it's been longer than one hour, it doesn't seem to show any benefit of giving hyaluronidase. Pharmacist stated to continue warm compresses.
--- NOTE | 2024-12-20 08:36 | PN.CARD_ITS ---
Subjective Subjective Patient resting comfortably in bed. Reports he has been passing gas for 3 days but has not had a bowel movement. He has not taking oral by his report. Patient's heart rate remains in the 120?140 range on IV amiodarone at 0.5 and dig 0.125 daily IV. He is also receiving IV Lopressor every 8 hours 5 mg. I did discuss treatment options with the hospitalist team. Objective Data Vital Signs: Vital Signs Temp Pulse Resp BP Pulse Ox O2 Del Method O2 Flow Rate 98 F 136 H 18 98/61 97 CPAP 2 12/19/24 23:00 12/20/24 05:26 12/20/24 03:00 12/20/24 03:00 12/20/24 03:00 12/20/24 04:00 12/19/24 19:20 FiO2 98 12/15/24 12:25 Oxygen Flow Rate (L/min) 2 Oxygen Delivery Method CPAP Weight: 231 lb 11.293 oz Body Mass Index (BMI) 33.2 Intake & Output: Intake and Output for Last 24 Hours 12/18/24 12/19/24 12/20/24 23:59 23:59 23:59 Intake Total 3367.05 / 3383.75 2729.83 / 2746.53 230.42 / 230.42 Output Total 4710 / 4740 1087 / 1587 700 / 700 Balance -1342.95 / -1356.25 1642.83 / 1159.53 -469.58 / -469.58 Lab / Micro Data 12/20/24 04:05 12/20/24 04:05 Labs: Laboratory Results - last 24 hr 12/19/24 09:47: APTT Cancelled 12/19/24 10:35: APTT 54.7 H 12/19/24 17:20: APTT 49.8 H 12/20/24 00:12: APTT 61.6 H 12/20/24 04:05: WBC 15.1 H, RBC 4.78, Hgb 11.6 L, Hct 38.9 L, MCV 81.4, MCH 24.3 L, MCHC 29.8 L, RDW Std Deviation 59.7 H, RDW Coeff of Sea 20.7 H, Plt Count 338, MPV 10.6, Differential Comment , APTT 52.9 H, Sodium 136, Potassium 3.3, Chloride 100, Carbon Dioxide 21.5, Anion Gap 14, BUN 12, Creatinine 1.02, Estim Creat Clear Calc 79.98, Est GFR (MDRD) Non-Af 79, BUN/Creatinine Ratio 11.5, Glucose 96, Calcium 8.1 Rhythm Strip Rhythm Strip: A-fib Rate: 130 Cardiology Labs/Tests 12/19/24 09:47: APTT Cancelled 12/19/24 10:35: APTT 54.7 H 12/19/24 17:20: APTT 49.8 H 12/20/24 00:12: APTT 61.6 H 12/20/24 04:05: WBC 15.1 H, RBC 4.78, Hgb 11.6 L, Hct 38.9 L, MCV 81.4, MCH 24.3 L, MCHC 29.8 L, Plt Count 338, MPV 10.6, APTT 52.9 H, Sodium 136, Potassium 3.3, Chloride 100, Carbon Dioxide 21.5, Anion Gap 14, BUN 12, Creatinine 1.02, Est GFR (MDRD) Non-Af 79, BUN/Creatinine Ratio 11.5, Glucose 96, Calcium 8.1 Rhythm: EKG: ECHO: Stress Test: Cardiac Cath: PCI: CT Surgery: Holter monitor: EPS: PPM: CXR: Chest CT Scan: Physical Exam Const alert and oriented x3 HEENT normocephalic Eyes EOMs intact bilaterally Neck no JVD Resp normal respiratory effort Auscultation: diminished lung sounds bilateral lower Cardio Cardio Narrative: Distant heart tones Rate: tachycardic Rhythm: abnormal rhythm irregularly irregular Heart Sounds: S1 normal and S2 normal; Negative for click, gallop or murmur GI GI Narrative: Mildly distended with faint bowel sounds. Extremity no pedal edema Neuro Neuro Narrative: Alert and oriented x 3 Psych Memory / Cognition: cognition grossly intact Assessment & Plan Assessment/Plan (1) Atrial fibrillation with RVR: PLAN: Patient's heart rate remains elevated. He reports to me he was recently cardioverted in the last 2 weeks after being on Tikosyn for [address] [facility]. He had been on Eliquis until his admission and was converted over to full dose IV heparin. The patient was not able to take p.o. medical therapy he was placed on IV amiodarone and the Tikosyn was discontinued. Patient's heart rate remains in the 120?140 range he reports that intermittently in his home environment it gets up to 150 and he notices it at that point in time and catches it on a [employer] mobile device. The patient also carries a history of mild LV dysfunction EF 35 to 40% he is on Entresto. At this point in time the patient is not on oral anticoagulant therapy due to his recent abscess and diverticulitis surgical intervention. Hemodynamically he is stable he is expected to have a heart rate in the 0100- 0120 range given his overall situation. I would recommend we defer elective direct-current cardioversion until he has recovered from his abdominal surgery, his white count has returned to normal, and he is back on oral anticoagulation therapy. (2) Chronic anticoagulation: PLAN: Patient is on IV heparin at this point in time. He should be converted back to his Eliquis 5 mg twice daily when he is able to take oral medical therapy and it is cleared by the surgical team. (3) LV dysfunction: PLAN: Patient is he is known to be in the 35 to 40% range by echo. 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 He should be continued on the Entresto as blood pressure will tolerate. Should also be continued on beta- kleber therapy and should be placed back on oral metoprolol once he is able to take oral meds. PLAN: Plan 1. We will continue to monitor with you. 2. Once able to take oral medications we will need to start to transition him back to oral metoprolol, oral amiodarone or switch him back to his Tikosyn dose, and reinstitute Eliquis when cleared by the surgical team. Charges/Coding Visit Charges Inpatient E&M: 66105 [facility] L3
[2024-12-20] MEDS: Amiodarone 360 MG in Dextrose 5% Viaflo Bag 192.8 ML 16.7 MG CONT INF (08:46)
--- NOTE | 2024-12-20 08:51 | PN.HOSP_ITS ---
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 HR has remained consistently in the 140s. Patient states that it normally is in the 140s when he checks in the AM at home. Denies chest pain, palpitations. Objective Data Objective Data Vital Signs: Vital Signs Temp Pulse Resp BP Pulse Ox O2 Del Method O2 Flow Rate 36.6 C 136 H 18 98/61 95 Room Air 2 12/19/24 23:00 12/20/24 05:26 12/20/24 03:00 12/20/24 03:00 12/20/24 08:32 12/20/24 08:32 12/19/24 19:20 FiO2 98 12/15/24 12:25 Oxygen Flow Rate (L/min) 2 Oxygen Delivery Method Room Air Weight: 105.1 kg Body Mass Index (BMI) 33.2 Intake & Output: Intake and Output for Last 24 Hours 12/18/24 12/19/24 12/20/24 23:59 23:59 23:59 Intake Total 3367.05 / 3383.75 2729.83 / 2746.53 319.64 / 319.64 Output Total 4710 / 4740 1087 / 1587 700 / 700 Balance -1342.95 / -1356.25 1642.83 / 1159.53 -380.36 / -380.36 Lab / Micro Data 12/20/24 04:05 12/20/24 04:05 Labs: Laboratory Results - last 24 hr 12/19/24 09:47: APTT Cancelled 12/19/24 10:35: APTT 54.7 H 12/19/24 17:20: APTT 49.8 H 12/20/24 00:12: APTT 61.6 H 12/20/24 04:05: WBC 15.1 H, RBC 4.78, Hgb 11.6 L, Hct 38.9 L, MCV 81.4, MCH 24.3 L, MCHC 29.8 L, RDW Std Deviation 59.7 H, RDW Coeff of Sea 20.7 H, Plt Count 338, MPV 10.6, Differential Comment , APTT 52.9 H, Sodium 136, Potassium 3.3, Chloride 100, Carbon Dioxide 21.5, Anion Gap 14, BUN 12, Creatinine 1.02, Estim Creat Clear Calc 79.98, Est GFR (MDRD) Non-Af 79, BUN/Creatinine Ratio 11.5, Glucose 96, Calcium 8.1 Rhythm Strip Rhythm Strip: A-fib Rate: 130 Physical Exam Const alert and no apparent distress HEENT head/scalp atraumatic and moist oral mucous membranes Resp normal respiratory effort, no retractions, no use of accessory muscles and clear to auscultation bilaterally Cardio Cardio Narrative: irregularly irregular. GI non-tender Auscultation: hypoactive bowel sounds Extremity normal to inspection and full ROM Neuro Sensorium / Orientation: awake and alert Psych affect normal Assessment & Plan Assessment/Plan (1) Diverticulitis: PLAN: Sigmoid diverticulitis with abscess General Surgery following. CT abdomen pelvis on admit showed acute sigmoid diverticulitis with an adjacent 4 cm abscess formation. S/p exploratory laparoscopy with drainage of abscess, washout and drain placement with surgery on 12/15. Patient tolerated procedure well. Slowly improving and is passing flatus. Initiated on clear liquid diet on 12/18. Continue IV Zosyn. Continue symptom control with IV pain and nausea medications as needed. on Full liquid diet. (2) Atrial fibrillation with RVR: PLAN: Cardiology following. Follows with cardiology EP in [place]; completed Tikosyn loading followed by cardioversion there last week. Unfortunately was only in sinus rhythm for 2 days before going back into A-fib. Was in A-fib with RVR on arrival here. Echo 12/14 showed moderately dilated LV, EF 35 to 40%, no other abnormalities and stable from previous. DW Dr. Hunter, continue amiodarone gtt, add PO amiodarone, resume metoprolol and start at 25 PO q6h (metoprolol 50 BID had not been given since 12/16) on heparin gtt PLAN: Plan Chronic conditions: * History of HFrEF, hypertension? Follows with cardiology in [place]. Last echo in 2022 showed EF 40%. Repeat echo on 12/14 as noted above with no change from previous. Lasix had been held for several days with borderline low blood pressures but patient weight was increasing and she appeared more volume overloaded with slightly worsening oxygen requirements. Started on IV Lasix 40 mg twice daily on 12/18 with good urine output; will continue this through 12/19 and plan to resume home p.o. Lasix 40 mg daily on 12/20. Per cardiology recommendations, will start Entresto at low-dose on 12/19. Continue to monitor closely. * Mild acute hypoxia in setting of COPD? 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 Not on home oxygen, requiring up to 3 L nasal cannula to maintain appropriate oxygen saturations here. Breathing comfortably and lung sounds clear. Suspect primarily secondary to poor respiratory excursion in setting of abdominal pain from abscess as above. Continue incentive spirometry. Continue home inhalers. Wean supplemental oxygen as able. * Class I obesity with KIM? BMI 33 on admit. Encouraged weight loss. Continue CPAP at night and with naps. DVT prophylaxis: Not indicated, on heparin drip
[2024-12-20] MEDS: SACUBITRIL/VALSARTAN 24/26 MG TABLET 1 EACH PO ×2 (10:19→21:19)
[2024-12-20] MEDS: Furosemide 40 MG Tablet PO ×2 (10:19→18:40)
[2024-12-20] MEDS: Potassium Chloride Oral Tablet 20 MEQ 40 MEQ PO (10:19)
[2024-12-20] MEDS: 0.9% Saline Lock 10 ML Syringe IV ×3 (10:20→17:02)
[2024-12-20] MEDS: Digoxin 250 MCG/ML Ampul 125 MCG IV (10:22)
--- NOTE | 2024-12-20 10:26 | PN.SURG_ITS ---
Subjective Subjective Patient seen and evaluated on rounds this morning. He denies any new issues or complaints. He states that he is still passing flatus and has tolerated a full liquid diet. He states that he has been up and ambulating. He remains with A- fib with elevated heart rate Objective Data Objective Data Vital Signs: Vital Signs Temp Pulse Resp BP Pulse Ox O2 Del Method O2 Flow Rate 98 F 145 H 22 H 104/71 96 Room Air 2 12/19/24 23:00 12/20/24 10:12/20/24 10:12/20/24 10:12/20/24 10:12/20/24 10:00 12/19/24 19:20 FiO2 98 12/15/24 12:25 Oxygen Flow Rate (L/min) 2 Oxygen Delivery Method Room Air Weight: 231 lb 11.293 oz Body Mass Index (BMI) 33.2 Intake & Output: Intake and Output for Last 24 Hours 12/18/24 12/19/24 12/20/24 23:59 23:59 23:59 Intake Total 3367.05 / 3383.75 2729.83 / 2746.53 390.24 / 390.24 Output Total 4710 / 4740 1087 / 1587 700 / 700 Balance -1342.95 / -1356.25 1642.83 / 1159.53 -309.76 / -309.76 Lab / Micro Data 12/20/24 04:05 12/20/24 04:05 Labs: Laboratory Results - last 24 hr 12/19/24 10:35: APTT 54.7 H 12/19/24 17:20: APTT 49.8 H 12/20/24 00:12: APTT 61.6 H 12/20/24 04:05: WBC 15.1 H, RBC 4.78, Hgb 11.6 L, Hct 38.9 L, MCV 81.4, MCH 24.3 L, MCHC 29.8 L, RDW Std Deviation 59.7 H, RDW Coeff of Sea 20.7 H, Plt Count 338, MPV 10.6, Differential Comment , APTT 52.9 H, Sodium 136, Potassium 3.3, Chloride 100, Carbon Dioxide 21.5, Anion Gap 14, BUN 12, Creatinine 1.02, Estim Creat Clear Calc 79.98, Est GFR (MDRD) Non-Af 79, BUN/Creatinine Ratio 11.5, Glucose 96, Calcium 8.1 Rhythm Strip Rhythm Strip: A-fib Rate: 130 Physical Exam Narrative He is alert and oriented x 3. He is in no acute distress. Abdomen is soft and still somewhat distended. Mild appropriate tenderness to palpation. AMY drain with mostly serous output although after stripping the drain there was some purulent tinged output in the tubing Assessment & Plan Assessment/Plan (1) Colonic diverticular abscess: PLAN: Plan The patient is a 69-year-old male who presented with diverticulitis with abscess. This abscess was not amenable to percutaneous drainage and so a laparoscopic drainage procedure was performed several days ago. Patient seems to be improving clinically from a surgical standpoint. He has continued to pass flatus indicating the early return of bowel function. He has tolerated clear liquid diet thus far. Our plan is to advance his diet slowly. Will keep diet at a full liquid diet per patient request. Will continue AMY drain. Appreciate medical management. Will continue to follow.
[2024-12-20] MEDS: Pantoprazole Sodium 40 MG in 0.9% Normal Saline (100mL MB+) 100 ML 330 MG IV (10:29)
[2024-12-20 10:55] LABS: Partial Thromboplast Time 34.4 Seconds (24.1-36.2)
[2024-12-20] MEDS: Heparin Injection (Vial) 5,000 UNIT/ML VIAL IV (11:10)
[2024-12-20] MEDS: HEPARIN/D5w 25,000 UNITS 25,000 UNITS/250 ML IV.SOLN. 20 UNITS CONT INF (12:52)
[2024-12-20] MEDS: Metoprolol Tartrate 25 MG Tablet PO ×3 (14:33→23:19)
[2024-12-20] MEDS: Amiodarone 200 MG Tablet PO (15:33)
[2024-12-20 17:52] LABS: Partial Thromboplast Time 30.7 Seconds (24.1-36.2)
[2024-12-20] MEDS: APIXABAN 5 MG TABLET PO (18:41)
[2024-12-20] MEDS: traZODone 50 MG Tablet PO (23:19)
[2024-12-21] VITALS (16 sets, daily range): BP systolic 93–135; BP diastolic 61–105; PULSE 94–139; RESP 18–21; TEMP 36.1–36.6; O2SAT 93–98; BMI 34.4
--- NOTE | 2024-12-21 02:36 | PCM.HOSP.N ---
Hospitalist Note Patient with persistent RVR recurrence. BP low normal range. Will give an additional digoxin IV x 1 now.
[2024-12-21] MEDS: Digoxin 250 MCG/ML Ampul IV (02:57)
[2024-12-21] MEDS: 0.9% Saline Lock 10 ML Syringe IV ×5 (03:08→13:00)
[2024-12-21] MEDS: Metoprolol Tartrate 25 MG Tablet PO (05:04)
[2024-12-21] MEDS: Amiodarone 200 MG Tablet PO (05:04)
[2024-12-21] MEDS: Piperacil/Tazobactam 3.375 GM in 0.9% Normal Saline (50mL MB+) 50 ML IV ×3 (05:06→23:21)
[2024-12-21 05:44] LABS: Absolute Lymphocyte Count 1.13 X10^3/uL (0.83-4.51); Absolute Neutrophil Count 11.9 X10^3/uL (2.0-7.7); Basophil# 0.01 X10^3/uL; Basophil% 0.1 % (0-1); Eosinophil# 0.06 X10^3/uL; Eosinophils% 0.4 % (0-5); Hematocrit 40.5 % (40-54); Hemoglobin 12.4 g/dL (13.0-16.5); Lymphocyte # 1.13 X10^3/ul (0.83-4.51); Lymphocyte % 8.2 % (19-41); Mean Corp Hgb Conc 30.6 g/dL (32-36); Mean Corpuscular Hgb 24.5 pg (27.0-32.0); Mean Corpuscular Volume 79.9 fL (80-94); Mean Platelet Vol. 10.4 fl (6.2-12.0); Monocyte# 0.55 X10^3/uL; NRBC Flagged by Analyzer 0 % (0-5); Neutrophil # 11.88 X10^3/uL (2.7-7.7); Neutrophil % 85.8 % (47-70); POSITIVE MORPHOLOGY YES; Platelet Count 399 K/mm3 (150-450); RBC Distribution Width CV 20.7 % (11.6-14.6); RBC Distribution Width SD 57.9 fl (35.1-43.9); Red Blood Count 5.07 M/mm3 (4.6-6.2); White Blood Count 13.8 K/mm3 (4.4-11.0)
[2024-12-21 05:49] LABS: Differential Indicated SCAN CRITERIA MET
[2024-12-21 06:29] LABS: Anion Gap 14 (5-15); BUN 12 mg/dL (4-19); BUN/Creat Ratio 11.5 RATIO (10-20); Calcium,Total 8.1 mg/dL (7.6-11.0); Carbon Dioxide 22.1 mmol/L (21.0-32.0); Chloride 102 mmol/L (98-108); Creatinine, Serum 1.03 mg/dL (0.70-1.20); EST Glomerular Filtration Rate 78 (>60); Estimated Creatinine Clearance 81.21 ml/min (50-250); Glucose 108 mg/dL (70-99); Potassium 3.6 mmol/L (3.3-5.1); Sodium Level 138 mmol/L (133-145)
[2024-12-21 06:35] LABS: Anisocytosis 2+; Differential Comment SCANNED
[2024-12-21] MEDS: Metoprolol Tartrate 5 MG/5 ML Vial IV ×2 (06:47→13:00)
--- NOTE | 2024-12-21 08:09 | PCM.PN.HOSP ---
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 Has been tolerating some liquids, but had not had any yet today. Objective Data Objective Data Vital Signs: Vital Signs Temp Pulse Resp BP Pulse Ox O2 Del Method O2 Flow Rate 36.3 C L 135 H 20 H 121/105 H 95 CPAP 2 12/21/24 05:01 12/21/24 06:47 12/21/24 05:01 12/21/24 06:47 12/21/24 06:45 12/21/24 06:45 12/21/24 06:45 FiO2 98 12/15/24 12:25 Oxygen Flow Rate (L/min) 2 Oxygen Delivery Method CPAP Weight: 108.7 kg Body Mass Index (BMI) 34.4 Intake & Output: Intake and Output for Last 24 Hours 12/19/24 12/20/24 12/21/24 23:59 23:59 23:59 Intake Total 2729.83 / 2746.53 1059.58 / 1059.58 170 / 170 Output Total 1087 / 1587 2325 / 2325 400 / 400 Balance 1642.83 / 1159.53 -1265.42 / -1265.42 -230 / -230 Lab / Micro Data 12/21/24 05:30 12/21/24 05:30 Labs: Laboratory Results - last 24 hr 12/20/24 10:35: APTT 34.4 12/20/24 17:30: APTT 30.7 12/21/24 05:30: WBC 13.8 H, RBC 5.07, Hgb 12.4 L, Hct 40.5, MCV 79.9 L, MCH 24.5 L, MCHC 30.6 L, RDW Std Deviation 57.9 H, RDW Coeff of Sea 20.7 H, Plt Count 399, MPV 10.4, Immature Gran % (Auto) 1.500 H, Neut % (Auto) 85.8 H, Lymph % (Auto) 8.2 L, [place] % (Auto) 4.0, Eos % (Auto) 0.4, Baso % (Auto) 0.1, Absolute Neuts (auto) 11.9 H, Absolute Lymphs (auto) 1.13, Nucleated RBC % 0, Differential Comment SCANNED, Anisocytosis 2+, Sodium 138, Potassium 3.6, Chloride 102, Carbon Dioxide 22.1, Anion Gap 14, BUN 12, Creatinine 1.03, Estim Creat Clear Calc 81.21, Est GFR (MDRD) Non-Af 78, BUN/Creatinine Ratio 11.5, Glucose 108 H, Calcium 8.1 Rhythm Strip Rhythm Strip: A-fib Rate: 130 Physical Exam Const alert and no apparent distress HEENT head/scalp atraumatic and moist oral mucous membranes Neck no lymphadenopathy Resp normal respiratory effort, no retractions, no use of accessory muscles and clear to auscultation bilaterally Cardio regular rate, regular rhythm, S1 normal heart sound and S2 normal heart sound GI non-tender GI Narrative: distended. Auscultation: hypoactive bowel sounds Assessment & Plan Assessment/Plan (1) Diverticulitis: PLAN: Sigmoid diverticulitis with abscess General Surgery following. CT abdomen pelvis on admit showed acute sigmoid diverticulitis with an adjacent 4 cm abscess formation. S/p exploratory laparoscopy with drainage of abscess, washout and drain placement with surgery on 12/15. Patient tolerated procedure well. Slowly improving and is passing flatus. Initiated on full liquid diet Continue IV pip/tazo. Continue symptom control with IV pain and nausea medications as needed. on Full liquid diet. AXR showing SBO, however, patient endorses flatus. Continue FLD, unless needs changed by GS. (2) Atrial fibrillation with RVR: PLAN: Cardiology following. Follows with cardiology EP in [place]; completed Tikosyn loading followed by cardioversion there last week. Unfortunately was only in sinus rhythm for 2 days before going back into A-fib. Was in A-fib with RVR on arrival here. Echo 12/14 showed moderately dilated LV, EF 35 to 40%, no other abnormalities and stable from previous. Cardiology DC digoxin, change metoprolol tartrate to succinate 50 BID, continue amiodarone 400 BID. Now off amiodarone gtt. on Apixaban PLAN: Plan Chronic conditions: History of HFrEF, hypertension? Follows with cardiology in [place]. Last echo in 2022 showed EF 40%. Repeat echo on 12/14 as noted above with no change from previous. Lasix had been held for several days with borderline low blood pressures but patient weight was increasing and she appeared more volume overloaded with slightly worsening oxygen requirements. Started on IV Lasix 40 mg twice daily on 12/18 with good urine output; will continue this through 12/19 and plan to resume home p.o. Lasix 40 mg daily on 12/20. Per cardiology recommendations, will start Entresto at low-dose on 12/19. Continue to monitor closely. Class I obesity with KIM? BMI 33 on admit. Encouraged weight loss. Continue CPAP at night and with naps. DVT prophylaxis: Not indicated, as already anticoagulated. Charges/Coding Visit Charges Inpatient E&M: 27757 Subs Hosp L2
--- NOTE | 2024-12-21 08:21 | PCM.PN.CARD ---
Subjective Subjective I was called early this morning the patient's heart rate began in the 140 range. We gave him an additional 200 mg of amiodarone and his heart rate has now come down in the 105?110 range still remaining in atrial fibrillation. The patient was sleeping with his CPAP machine in place. Upon awakening he denies any shortness of breath or palpitations. I did have a discussion with his yesterday concerning his evaluation and treatment options discussed at [facility]. They are to follow-up there with his EP physician Dr. Gillespie after he is discharged from [facility]. Objective Data Vital Signs: Vital Signs Temp Pulse Resp BP Pulse Ox O2 Del Method O2 Flow Rate 97.4 F L 135 H 20 H 121/105 H 95 CPAP 2 12/21/24 05:01 12/21/24 06:47 12/21/24 05:01 12/21/24 06:47 12/21/24 06:45 12/21/24 06:45 12/21/24 06:45 FiO2 98 12/15/24 12:25 Oxygen Flow Rate (L/min) 2 Oxygen Delivery Method CPAP Weight: 239 lb 10.279 oz Body Mass Index (BMI) 34.4 Intake & Output: Intake and Output for Last 24 Hours 12/19/24 12/20/24 12/21/24 23:59 23:59 23:59 Intake Total 2729.83 / 2746.53 1059.58 / 1059.58 170 / 170 Output Total 1087 / 1587 2325 / 2325 400 / 400 Balance 1642.83 / 1159.53 -1265.42 / -1265.42 -230 / -230 Lab / Micro Data Attestation: I reviewed the patient's lab results. 12/21/24 05:30 12/21/24 05:30 Labs: Laboratory Results - last 24 hr 12/20/24 10:35: APTT 34.4 12/20/24 17:30: APTT 30.7 12/21/24 05:30: WBC 13.8 H, RBC 5.07, Hgb 12.4 L, Hct 40.5, MCV 79.9 L, MCH 24.5 L, MCHC 30.6 L, RDW Std Deviation 57.9 H, RDW Coeff of Sea 20.7 H, Plt Count 399, MPV 10.4, Immature Gran % (Auto) 1.500 H, Neut % (Auto) 85.8 H, Lymph % (Auto) 8.2 L, [place] % (Auto) 4.0, Eos % (Auto) 0.4, Baso % (Auto) 0.1, Absolute Neuts (auto) 11.9 H, Absolute Lymphs (auto) 1.13, Nucleated RBC % 0, Differential Comment SCANNED, Anisocytosis 2+, Sodium 138, Potassium 3.6, Chloride 102, Carbon Dioxide 22.1, Anion Gap 14, BUN 12, Creatinine 1.03, Estim Creat Clear Calc 81.21, Est GFR (MDRD) Non-Af 78, BUN/Creatinine Ratio 11.5, Glucose 108 H, Calcium 8.1 Rhythm Strip Rhythm Strip: A-fib Rate: 110 Cardiology Labs/Tests 12/20/24 10:35: APTT 34.4 12/20/24 17:30: APTT 30.7 12/21/24 05:30: WBC 13.8 H, RBC 5.07, Hgb 12.4 L, Hct 40.5, MCV 79.9 L, MCH 24.5 L, MCHC 30.6 L, Plt Count 399, MPV 10.4, Immature Gran % (Auto) 1.500 H, Neut % (Auto) 85.8 H, Lymph % (Auto) 8.2 L, [place] % (Auto) 4.0, Eos % (Auto) 0.4, Baso % (Auto) 0.1, Absolute Neuts (auto) 11.9 H, Nucleated RBC % 0, Sodium 138, Potassium 3.6, Chloride 102, Carbon Dioxide 22.1, Anion Gap 14, BUN 12, Creatinine 1.03, Est GFR (MDRD) Non-Af 78, BUN/Creatinine Ratio 11.5, Glucose 108 H, Calcium 8.1 Rhythm: EKG: ECHO: Stress Test: Cardiac Cath: PCI: CT Surgery: Holter monitor: EPS: PPM: CXR: Chest CT Scan: Physical Exam Const alert and oriented x3 HEENT normocephalic Eyes EOMs intact bilaterally Neck no JVD Resp normal respiratory effort and clear to auscultation bilaterally Cardio Rate: tachycardic Rhythm: abnormal rhythm irregularly irregular Heart Sounds: S1 normal and S2 normal; Negative for click, gallop or murmur Extremity no pedal edema Neuro Neuro Narrative: Alert and oriented x 3 Psych mental status grossly normal Assessment & Plan Assessment/Plan (1) Atrial fibrillation with RVR: PLAN: Patient remains in atrial fibrillation. He had an episode last evening where his heart rate was up in the 140 range. We gave an additional dose of Lanoxin and amiodarone which brought his heart rate down in the 105-110 bpm range. The patient continues to have elevated white blood cell count suggesting he still has yet to clear his infection from his diverticular abscess. This will drive his heart rate. At this point in time we will continue amiodarone at 400 mg twice daily. The patient was reinstituted on Eliquis 5 mg twice daily which he appears to be tolerating without incident. Given his blood pressures improved I would recommend we discontinue the Lanoxin due to the potential interaction with amiodarone. He needs beta-kleber therapy to treat his LV dysfunction. In his home environment he is on metoprolol succinate 50 mg p.o. twice daily we will reinstitute this dose today. I did discuss this plan with the patient's yesterday. She informed me that Dr. Gillespie, his EP physician at [facility], was planning on radiofrequency ablation for his atrial fibrillation at some point in time in the future. (2) LV dysfunction: PLAN: Will reinstitute metoprolol tartrate 50 mg twice daily today. Continue his Entresto. The patient was not on spironolactone in his home environment he however he was on furosemide 40 mg twice daily. 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 The patient is being evaluated through the [facility] heart center. (3) Colonic diverticular abscess: PLAN: The patient continues on IV antibiotic therapy. Long-term treatment and management per the surgical team and primary service. PLAN: Plan 1. Recommend discontinue the Lanoxin. 2. Will change metoprolol to tartrate to metoprolol succinate 50 mg twice daily to get back on his home dose. 3. Continue with amiodarone 400 mg twice daily until day of discharge. At that time we will decrease amiodarone to 200 mg twice daily. 4. Patient will follow-up with his EP service at [facility] after discharge. Charges/Coding Visit Charges Inpatient E&M: 40700 Subs Hosp L2
--- NOTE | 2024-12-21 08:45 | PN.SURG_ITS ---
Subjective Subjective Patient evaluated resting comfortably in bed. He has been passing flatus. His last bowel movement he believes was on Friday. He states he does not have much of an appetite. He notes the food is too sweet. He denies abdominal pain. AMY drain continues to put out thick purulent material. Objective Data Objective Data Vital Signs: Vital Signs Temp Pulse Resp BP Pulse Ox O2 Del Method O2 Flow Rate 97.4 F L 135 H 20 H 121/105 H 95 CPAP 2 12/21/24 05:01 12/21/24 06:47 12/21/24 05:01 12/21/24 06:47 12/21/24 06:45 12/21/24 06:45 12/21/24 06:45 FiO2 98 12/15/24 12:25 Oxygen Flow Rate (L/min) 2 Oxygen Delivery Method CPAP Weight: 239 lb 10.279 oz Body Mass Index (BMI) 34.4 Intake & Output: Intake and Output for Last 24 Hours 12/19/24 12/20/24 12/21/24 23:59 23:59 23:59 Intake Total 2729.83 / 2746.53 1059.58 / 1059.58 170 / 170 Output Total 1087 / 1587 2325 / 2325 400 / 400 Balance 1642.83 / 1159.53 -1265.42 / -1265.42 -230 / -230 Lab / Micro Data 12/21/24 05:30 12/21/24 05:30 Labs: Laboratory Results - last 24 hr 12/20/24 10:35: APTT 34.4 12/20/24 17:30: APTT 30.7 12/21/24 05:30: WBC 13.8 H, RBC 5.07, Hgb 12.4 L, Hct 40.5, MCV 79.9 L, MCH 24.5 L, MCHC 30.6 L, RDW Std Deviation 57.9 H, RDW Coeff of Sea 20.7 H, Plt Count 399, MPV 10.4, Immature Gran % (Auto) 1.500 H, Neut % (Auto) 85.8 H, Lymph % (Auto) 8.2 L, [place] % (Auto) 4.0, Eos % (Auto) 0.4, Baso % (Auto) 0.1, Absolute Neuts (auto) 11.9 H, Absolute Lymphs (auto) 1.13, Nucleated RBC % 0, Differential Comment SCANNED, Anisocytosis 2+, Sodium 138, Potassium 3.6, Chloride 102, Carbon Dioxide 22.1, Anion Gap 14, BUN 12, Creatinine 1.03, Estim Creat Clear Calc 81.21, Est GFR (MDRD) Non-Af 78, BUN/Creatinine Ratio 11.5, G lucose 108 H, Calcium 8.1 Rhythm Strip Rhythm Strip: A-fib Rate: 110 Physical Exam GI GI Narrative: Abdomen- distended, nontender. AMY drain intact with minimal amount of purulent fluid noted within the bulb. Incisions c/d/i. No erythema or infection noted. Assessment & Plan Assessment/Plan (1) Colonic diverticular abscess: PLAN: I am following this patient in conjunction with Dr. Ramírez in Dr. Rivera's absence. He has independently evaluated this patient. Labs reviewed. WBC decreasing. Continue IV antibiotics Obtain KUB Recommend ambulating in the hallways at least 3 times if not contraindicated from cardiology. Possible repeat CT scan of the ab/pel prior to discharge We will continue to monitor this patient Charges/Coding Visit Charges Inpatient E&M: 24741 Subs Hosp L1 (no charge; post-op)
--- NOTE | 2024-12-21 09:36 | RAD_ITS ---
PROCEDURE: ABD INC DECUB AND/OR ERECT 12/21/2024 REASON FOR EXAM: ABDOMINAL DISTENTION. TECHNIQUE: Supine and upright. COMPARISON: KUB dated 12/16/2024. CTA abdomen and pelvis dated 12/13/2024. FINDINGS: Bowel gas: Multiple dilated loops of small bowel with air-fluid levels are demonstrated. No signs of free air. Calcifications: Unremarkable Bones: Multilevel spondylosis. Mild scoliosis. Other: No other significant findings. RAD/Abd Inc Decub and/or Erect IMPRESSION: Findings consistent with small-bowel obstruction. Reading Location: [place] [id number]
[2024-12-21] MEDS: Potassium Chloride Oral Tablet 20 MEQ 40 MEQ PO (10:09)
[2024-12-21] MEDS: Furosemide 40 MG Tablet PO ×2 (10:09→18:35)
[2024-12-21] MEDS: SACUBITRIL/VALSARTAN 24/26 MG TABLET 1 EACH PO ×2 (10:09→23:23)
[2024-12-21] MEDS: Amiodarone 200 MG Tablet 400 MG PO ×2 (10:09→23:23)
[2024-12-21] MEDS: Metoprolol(XL)Succ 50 MG Tablet PO ×2 (10:09→23:23)
[2024-12-21] MEDS: APIXABAN 5 MG TABLET PO ×2 (10:10→23:23)
[2024-12-21] MEDS: Pantoprazole Sodium 40 MG in 0.9% Normal Saline (100mL MB+) 100 ML 330 MG IV (10:10)
[2024-12-21] MEDS: 0.9% Normal Saline (250mL Bag) 250 ML 15 ML IV (10:15)
--- NOTE | 2024-12-21 14:52 | EKG12_ITS ---
Test Reason : A-FIB RVR Blood Pressure : */* mmHG Vent. Rate : 140 BPM Atrial Rate : * BPM P-R Int : * ms QRS Dur : 140 ms QT Int : 350 ms P-R-T Axes : * 76 265 degrees QTcB Int : 534 ms Critical Test Result: High HR Atrial fibrillation with rapid ventricular response Non-specific intra-ventricular conduction block Minimal voltage criteria for LVH, may be normal variant ( Ambia product ) NS T WAVE ABNORMALITY Abnormal ECG When compared with ECG of 21-Dec-2024 15:08, MANUAL COMPARISON REQUIRED DATA IS UNCONFIRMED Confirmed by Basil Hunter ([id number]), editorial clerk CARTER AKINS ([id number]) on 12/22/2024 8:12:35 AM Referred By: Confirmed By: Basil Hunter
--- NOTE | 2024-12-21 15:01 | CT_ITS ---
PROCEDURE: ABDOMEN/PELVIS WITH CONTRAST 12/21/2024 REASON FOR EXAM: F/U GASTRIC AND SMALL BOWEL DISTENTION TECHNIQUE: Abdomen and pelvis CT with intravenous and oral contrast. Coronal and Sagittal reconstruction series were provided. PATIENT PREPARATION: Per protocol CONTRAST: 97 mL Isovue 370 One or more dose reduction techniques were used (e.g., Automated exposure control, adjustment of the mA and/or kV according to patient size, use of iterative reconstruction technique. RADIATION DOSE SUMMARY: CTDlvol: 20.1 mGy DLP: 1093 mGycm COMPARISON: Abdominal radiographs 12/21/2024, CTA abdomen and pelvis on 12/13/2024 FINDINGS: Lung bases: Bibasilar consolidation with volume loss. There is linear scarring or atelectasis at the lung bases. Multivessel coronary calcifications. Liver: Unremarkable Gallbladder: Unremarkable Spleen: Unremarkable Pancreas: Mildly atrophic. Adrenals: Unremarkable Kidneys: No hydronephrosis or stone. There is a 1.1 cm hypodensity at the upper pole of the left kidney which measures 35 Hounsfield units in attenuation. Bladder: Unremarkable Reproductive Organs: Unremarkable Bowel: Prominent loops of small bowel measure up to 4.0 cm in diameter. There is no abrupt focal transition point. The cecum measures up to 7.0 cm in diameter and rectum measures 5.5 cm in diameter. Appendix appears unremarkable. Colonic diverticulosis. Peritoneal cavity: There is a drain entering at the right abdominal wall and terminating in the left anterior pelvis. The drain traverses in close proximity and potentially through a loop of small bowel (series 2, images 86-90). There is a heterogeneous collection containing air just proximal to the tip of the drain measuring 2.8 x 3.1 x 1.9 cm (AP x TR x CC; series 2, image 98), in similar location to a collection which measured 4.0 x 3.[address] dated 12/13/2024. There are additional foci of extraluminal air lateral to the drain tip. Additionally, there are new hypodense collections with peripheral enhancement in the mid abdomen. There appears to be communication between these collections with a narrow neck measuring 8 mm in diameter (sagittal image 105). Overall this collection measures 8.2 x 3.0 x 3.2 cm (AP x TR x CC). The anterior aspect of this collection is approximately 2.0 cm from the traversing drain tube (sagittal image 100). Lymph nodes: No significant lymphadenopathy. Vasculature: Diffuse atherosclerotic calcifications are noted. Bones: Degenerative changes of the spine. Abdominal wall: Unchanged fat and fluid containing umbilical hernia. Fat containing inguinal hernias, [id number]-[id number]-right. CT/Abdomen/Pelvis WITH Contrast IMPRESSION: 1. Interval placement of a surgical drain, with slight decrease in size of the abscess near the drain tip, which now measures up to 3.1 cm (previously 4.0 cm on 12/13/2024). Of note, the drain tip is located slightly lateral to the residual collection. Additionally, the drain courses in close proximity and potentially through a lo op of small bowel, though indentation on the bowel wall could appear similar. Correlate with drain output and consider short inte rval repeat CT or fluoroscopy. 2. There is a new hypodense collection with rim enhancement in the mid abdomen measuring up to 8.2 cm in size, concerning for a new developing abscess. The drain tube traverses 2 cm anterior to this collect ion. 3. Mild dilation of the small bowel and prominent distention of the large stan l, without abrupt transition point. Findings are favored to be the result of ileus. 4. Indeterminate lesion at the upper pole of the left kidney measuring 1.1 cm. Recommend dedicated renal CT or MRI when clinically appropriate. 5. Bibasilar consolidation may be the result of atelectasis or infection. [place] Alert: New fluid collection, concern for tube coursing through small bow el The critical information above was relayed directly by me by telephone to Basil Ramírez on 12/21/2024 at 11:44 pm with readback verification. Reading Location: [id number]
[2024-12-22] VITALS (7 sets, daily range): BP systolic 96–121; BP diastolic 69–100; PULSE 122–149; RESP 16–18; TEMP 36.5–36.6; O2SAT 94–95; BMI 33.1
--- NOTE | 2024-12-22 00:23 | PN.HOSP_ITS ---
Hospitalist Note RN updated that Dr. Ramírez is reviewing imaging that they had ordered with concerns for new abscess. 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
--- NOTE | 2024-12-22 02:47 | EKG12_ITS ---
Test Reason : ARRYTH Blood Pressure : */* mmHG Vent. Rate : 92 BPM Atrial Rate : 92 BPM P-R Int : 144 ms QRS Dur : 138 ms QT Int : 398 ms P-R-T Axes : 63 73 -59 degrees QTcB Int : 492 ms Normal sinus rhythm Left bundle branch block Abnormal ECG When compared with ECG of 20-Dec-2024 05:26, Sinus rhythm has replaced Atrial fibrillation Vent. rate has decreased by 59 bpm Inverted T waves have replaced nonspecific T wave abnormality in Inferior leads Confirmed by Basil Hunter ([id number]), business editor CARTER AKINS ([id number]) on 12/22/2024 8:13:06 AM Referred By: Confirmed By: Basil Hunter
--- NOTE | 2024-12-22 03:05 | PCM.HOSP.N ---
Hospitalist Note Patient with recurrent PAF RVR, from Cardiology last note had been effective to administer additional dose amiodarone, will trial.
[2024-12-22] MEDS: Amiodarone 200 MG Tablet PO (03:23)
[2024-12-22] MEDS: Piperacil/Tazobactam 3.375 GM in 0.9% Normal Saline (50mL MB+) 50 ML IV ×2 (05:16→15:28)
[2024-12-22 06:25] LABS: Absolute Lymphocyte Count 1.21 X10^3/uL (0.83-4.51); Absolute Neutrophil Count 14.1 X10^3/uL (2.0-7.7); Basophil# 0.05 X10^3/uL; Basophil% 0.3 % (0-1); Eosinophil# 0.04 X10^3/uL; Eosinophils% 0.2 % (0-5); Hematocrit 39.2 % (40-54); Hemoglobin 11.9 g/dL (13.0-16.5); Lymphocyte # 1.21 X10^3/ul (0.83-4.51); Lymphocyte % 7.5 % (19-41); Mean Corp Hgb Conc 30.4 g/dL (32-36); Mean Corpuscular Hgb 24.6 pg (27.0-32.0); Mean Corpuscular Volume 81.2 fL (80-94); Mean Platelet Vol. 10.7 fl (6.2-12.0); Monocyte# 0.56 X10^3/uL; Monocyte% 3.5 % (0-10); NRBC Flagged by Analyzer 0 % (0-5); Neutrophil # 14.08 X10^3/uL (2.7-7.7); Neutrophil % 87.1 % (47-70); POSITIVE MORPHOLOGY YES; Platelet Count 449 K/mm3 (150-450); RBC Distribution Width CV 20.3 % (11.6-14.6); RBC Distribution Width SD 59.3 fl (35.1-43.9); Red Blood Count 4.83 M/mm3 (4.6-6.2); White Blood Count 16.2 K/mm3 (4.4-11.0)
[2024-12-22 06:26] LABS: Differential Indicated SCAN CRITERIA MET
[2024-12-22 06:48] LABS: Anion Gap 14 (5-15); BUN 15 mg/dL (4-19); BUN/Creat Ratio 13.5 RATIO (10-20); Calcium,Total 8.2 mg/dL (7.6-11.0); Carbon Dioxide 22.6 mmol/L (21.0-32.0); Chloride 100 mmol/L (98-108); Creatinine, Serum 1.11 mg/dL (0.70-1.20); EST Glomerular Filtration Rate 71 (>60); Estimated Creatinine Clearance 74.04 ml/min (50-250); Glucose 115 mg/dL (70-99); Potassium 3.8 mmol/L (3.3-5.1); Sodium Level 136 mmol/L (133-145)
[2024-12-22 06:58] LABS: Anisocytosis 1+
--- NOTE | 2024-12-22 08:54 | PCM.PN.HOSP ---
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 Abdomen feeling worse, especially when he has a gas bubble. Concerned about swelling and redness in right antecubital fossa. Objective Data Objective Data Vital Signs: Vital Signs Temp Pulse Resp BP Pulse Ox O2 Del Method O2 Flow Rate 36.5 C L 145 H 16 110/69 95 Room Air 2 12/22/24 03:22 12/22/24 03:27 12/22/24 03:22 12/22/24 03:22 12/22/24 03:22 12/22/24 03:22 12/21/24 06:45 FiO2 98 12/15/24 12:25 Oxygen Flow Rate (L/min) 2 Oxygen Delivery Method Room Air Weight: 104.893 kg Body Mass Index (BMI) 33.1 Intake & Output: Intake and Output for Last 24 Hours 12/20/24 12/21/24 12/22/24 23:59 23:59 23:59 Intake Total 1059.58 / 1059.58 385.00 / 385.00 Output Total 2325 / 2325 900 / 900 Balance -1265.42 / -1265.42 -515.00 / -515.00 Lab / Micro Data 12/22/24 05:39 12/22/24 05:39 Labs: Laboratory Results - last 24 hr 12/22/24 05:39: WBC 16.2 H, RBC 4.83, Hgb 11.9 L, Hct 39.2 L, MCV 81.2, MCH 24.6 L, MCHC 30.4 L, RDW Std Deviation 59.3 H, RDW Coeff of Sea 20.3 H, Plt Count 449, MPV 10.7, Immature Gran % (Auto) 1.400 H, Neut % (Auto) 87.1 H, Lymph % (Auto) 7.5 L, [place] % (Auto) 3.5, Eos % (Auto) 0.2, Baso % (Auto) 0.3, Absolute Neuts (auto) 14.1 H, Absolute Lymphs (auto) 1.21, Nucleated RBC % 0, Anisocytosis 1+, Sodium 136, Potassium 3.8, Chloride 100, Carbon Dioxide 22.6, Anion Gap 14, BUN 15, Creatinine 1.11, Estim Creat Clear Calc 74.04, Est GFR (MDRD) Non-Af 71, BUN/Creatinine Ratio 13.5, Glucose 115 H, Calcium 8.2 Radiography Diagnostic Testing: Radiology Impression Abdomen X-Ray 12/21/24 09:36 IMPRESSION: Findings consistent with small-bowel obstruction. Reading Location: [facility] Abdomen/Pelvis CT 12/21/24 15:01 IMPRESSION: 1. Interval placement of a surgical drain, with slight decrease in size of the abscess near the drain tip, which now measures up to 3.1 cm (previously 4.0 cm on 12/13/2024). Of note, the drain tip is located slightly lateral to the residual collection. Additionally, the drain courses in close proximity and potentially through a loop of small bowel, though indentation on the bowel wall could appear similar. Correlate with drain output and consider short interval repeat CT or fluoroscopy. 2. There is a new hypodense collection with rim enhancement in the mid abdomen measuring up to 8.2 cm in size, concerning for a new developing abscess. The drain tube traverses 2 cm anterior to this collection. 3. Mild dilation of the small bowel and prominent distention of the large bowel, without abrupt transition point. Findings are favored to be the result of ileus. 4. Indeterminate lesion at the upper pole of the left kidney measuring 1.1 cm. Recommend dedicated renal CT or MRI when clinically appropriate. 5. Bibasilar consolidation may be the result of atelectasis or infection. [place] Alert: New fluid collection, concern for tube coursing through small bowel The critical information above was relayed directly by me by telephone to Basil Ramírez on 12/21/2024 at 11:44 pm with readback verification. Reading Location: [facility] Rhythm Strip Rhythm Strip: A-fib Rate: 110 Physical Exam Const alert and no apparent distress HEENT head/scalp atraumatic and moist oral mucous membranes Resp normal respiratory effort, no retractions, no use of accessory muscles and clear to auscultation bilaterally Cardio regular rate, regular rhythm, S1 normal heart sound and S2 normal heart sound GI GI Narrative: distended. TTP Auscultation: hypoactive bowel sounds Extremity Extremity Narrative: redness and palpable cord in right antecubital fossa. Neuro Sensorium / Orientation: awake and alert Psych affect normal Assessment & Plan Assessment/Plan (1) Diverticulitis: PLAN: Sigmoid diverticulitis with abscess General Surgery following. CT abdomen pelvis on admit showed acute sigmoid diverticulitis with an adjacent 4 cm abscess formation. S/p exploratory laparoscopy with drainage of abscess, washout and drain placement with surgery on 12/15. Patient tolerated procedure well. Slowly improving and is passing flatus. Repeat CT showed that the previous abscess slightly decrease and drain tip slightly lateral to abscess. Now new hypodense collection w rim enhance in the mid abdomen measuring up to 8.2cm Continue IV pip/tazo. Continue symptom control with IV pain and nausea medications as needed. NPO. TPN and PICC ordered. Reviewed CXR post PICC placement, Left sided PICC above the RA. OK to use PICC line. DW Dr. Rivera, pt needs surgery. He discussed with the patient, and given the complexity and potential for colostomy reversal, pt would prefer to go to tertiary facility. Patient requesting [facility] given his history and previously established at [facility]. I recommended Dr. Rivera initiate the transfer to more easily discuss the findings with the surgical service. He agreed and would initiate the calls. (2) Atrial fibrillation with RVR: PLAN: Cardiology following. Follows with cardiology EP in [place]; completed Tikosyn loading followed by cardioversion there last week. Unfortunately was only in sinus rhythm for 2 days before going back into A-fib. Was in A-fib with RVR on arrival here. Echo 12/14 showed moderately dilated LV, EF 35 to 40%, no other abnormalities and stable from previous. Cardiology DC digoxin, change metoprolol tartrate to succinate 50 BID, continue amiodarone 400 BID. Now off amiodarone gtt. Stop apixaban and restart heparin gtt given new findings of (3) Superficial venous thrombosis of arm: PLAN: in RUE. Preliminary US confirms this (formal read pending) Supportive mgmt. PLAN: Plan Chronic conditions: History of HFrEF, hypertension? Follows with cardiology in [place]. Last echo in 2022 showed EF 40%. Repeat echo on 12/14 as noted above with no change from previous. Lasix had been held for several days with borderline low blood pressures but patient weight was increasing and she appeared more volume overloaded with slightly worsening oxygen requirements. Started on IV Lasix 40 mg twice daily on 12/18 with good urine output; will continue this through 12/19 and plan to resume home p.o. Lasix 40 mg daily on 12/20. Per cardiology recommendations, will start Entresto at low-dose on 12/19. Continue to monitor closely. Class I obesity with KIM? BMI 33 on admit. Encouraged weight loss. Continue CPAP at night and with naps. DVT prophylaxis: Not indicated, as already anticoagulated. Greater than 60 minutes of which greater than 50 the time was discussing with the patient at bedside about CAT scan findings, need for n.p.o. status, SVT, need for TPN and PICC line. Also, remainder of the time was discussing with specialists (cardiology and surgery). Charges/Coding Visit Charges Inpatient E&M: 48844 Subs Hosp L3
--- NOTE | 2024-12-22 09:15 | PCM.PN.CARD ---
Subjective Subjective Patient transiently reverted into sinus rhythm yesterday. Early this a.m. he developed diarrhea and rereverted back into atrial fibrillation. Currently his atrial fibs on telemetry with a heart rate heart rate of 112. Heart rates have been running as high as 130?140. The patient reports this is common for him he has been going in and out of atrial fibrillation for 2 years. The heart rate is uncommon for him. However he is currently infected and there is still a lot of inflammation in his abdominal cavity. I did discuss this with the surgical team this morning. And we will switch him from Eliquis back to heparin in anticipation of some potential procedure need to be done. The patient has evidence of small bowel obstruction on x-ray. Objective Data Vital Signs: Vital Signs Temp Pulse Resp BP Pulse Ox O2 Del Method O2 Flow Rate 97.7 F L 145 H 16 110/69 95 Room Air 2 12/22/24 03:22 12/22/24 03:27 12/22/24 03:22 12/22/24 03:22 12/22/24 03:22 12/22/24 03:22 12/21/24 06:45 FiO2 98 12/15/24 12:25 Oxygen Flow Rate (L/min) 2 Oxygen Delivery Method Room Air Weight: 231 lb 4 oz Body Mass Index (BMI) 33.1 Intake & Output: Intake and Output for Last 24 Hours 12/20/24 12/21/24 12/22/24 23:59 23:59 23:59 Intake Total 1059.58 / 1059.58 385.00 / 385.00 50 / 50 Output Total 2325 / 2325 900 / 900 Balance -1265.42 / -1265.42 -515.00 / -515.00 50 / 50 Lab / Micro Data 12/22/24 05:39 12/22/24 05:39 Labs: Laboratory Results - last 24 hr 12/22/24 05:39: WBC 16.2 H, RBC 4.83, Hgb 11.9 L, Hct 39.2 L, MCV 81.2, MCH 24.6 L, MCHC 30.4 L, RDW Std Deviation 59.3 H, RDW Coeff of Sea 20.3 H, Plt Count 449, MPV 10.7, Immature Gran % (Auto) 1.400 H, Neut % (Auto) 87.1 H, Lymph % (Auto) 7.5 L, [place] % (Auto) 3.5, Eos % (Auto) 0.2, Baso % (Auto) 0.3, Absolute Neuts (auto) 14.1 H, Absolute Lymphs (auto) 1.21, Nucleated RBC % 0, Anisocytosis 1+, Sodium 136, Potassium 3.8, Chloride 100, Carbon Dioxide 22.6, Anion Gap 14, BUN 15, Creatinine 1.11, Estim Creat Clear Calc 74.04, Est GFR (MDRD) Non-Af 71, BUN/Creatinine Ratio 13.5, Glucose 115 H, Calcium 8.2 Rhythm Strip Rhythm Strip: A-fib Rate: 112 Cardiology Labs/Tests 12/22/24 05:39: WBC 16.2 H, RBC 4.83, Hgb 11.9 L, Hct 39.2 L, MCV 81.2, MCH 24.6 L, MCHC 30.4 L, Plt Count 449, MPV 10.7, Immature Gran % (Auto) 1.400 H, Neut % (Auto) 87.1 H, Lymph % (Auto) 7.5 L, [place] % (Auto) 3.5, Eos % (Auto) 0.2, Baso % (Auto) 0.3, Absolute Neuts (auto) 14.1 H, Nucleated RBC % 0, Sodium 136, Potassium 3.8, Chloride 100, Carbon Dioxide 22.6, Anion Gap 14, BUN 15, Creatinine 1.11, Est GFR (MDRD) Non-Af 71, BUN/Creatinine Ratio 13.5, Glucose 115 H, Calcium 8.2 Rhythm: EKG: ECHO: Stress Test: Cardiac Cath: PCI: CT Surgery: Holter monitor: EPS: PPM: CXR: Chest CT Scan: Radiography Diagnostic Testing: Radiology Impression Abdomen X-Ray 12/21/24 09:36 IMPRESSION: Findings consistent with small-bowel obstruction. Reading Location: [facility]--1 Abdomen/Pelvis CT 12/21/24 15:01 IMPRESSION: 1. Interval placement of a surgical drain, with slight decrease in size of the abscess near the drain tip, which now measures up to 3.1 cm (previously 4.0 cm on 12/13/2024). Of note, the drain tip is located slightly lateral to the residual collection. Additionally, the drain courses in close proximity and potentially through a loop of small bowel, though indentation on the bowel wall could appear similar. Correlate with drain output and consider short interval repeat CT or fluoroscopy. 2. There is a new hypodense collection with rim enhancement in the mid abdomen measuring up to 8.2 cm in size, concerning for a new developing abscess. The drain tube traverses 2 cm anterior to this collection. 3. Mild dilation of the small bowel and prominent distention of the large bowel, without abrupt transition point. Findings are favored to be the result of ileus. 4. Indeterminate lesion at the upper pole of the left kidney measuring 1.1 cm. Recommend dedicated renal CT or MRI when clinically appropriate. 5. Bibasilar consolidation may be the result of atelectasis or infection. [place] Alert: New fluid collection, concern for tube coursing through small bowel The critical information above was relayed directly by me by telephone to Basil Ramírez on 12/21/2024 at 11:44 pm with readback verification. Reading Location: [id number] Physical Exam Const alert and oriented x3 HEENT normocephalic Eyes EOMs intact bilaterally Resp normal respiratory effort Auscultation: diminished lung sounds bilateral lower Cardio Cardio Narrative: Distant heart tones Rate: tachycardic Rhythm: abnormal rhythm irregularly irregular Heart Sounds: S1 normal and S2 normal; Negative for click, gallop or murmur Extremity General Extremity: edema Neuro Neuro Narrative: Alert and oriented x 3 Psych mental status grossly normal Assessment & Plan Assessment/Plan (1) LV dysfunction: PLAN: Patient's EF known to be in the 35 to 40% range. Currently his primary issue is his tachycardia up in the 130-140 range. His blood pressure is borderline and therefore we will hold his Entresto temporarily so that we can increase his metoprolol for better rate control. He will continue on the amiodarone. (2) Chronic anticoagulation: PLAN: Patient has been on Eliquis long-term. However despite restarting it he has now developed an ileus so we will discontinue the oral Eliquis and put him back on IV heparin in case further intervention is needed from a surgical perspective. (3) Atrial fibrillation with RVR: PLAN: Patient transiently went into sinus rhythm yesterday. He is now back in atrial fibrillation with a rapid ventricular response. I would recommend that given his rapid ventricular response it is more important for his LV function that we control the rate then it is for him to be on Entresto. By stopping the Entresto we should have blood pressure enough to be able to increase his metoprolol. PLAN: Plan 1. Hold Entresto. 2. Increase metoprolol to metoprolol tartrate 50 mg every 6 hours with hold parameters for blood pressure and heart rate. 3. Will hold Eliquis and replace with heparin IV. 4. Once hemodynamics stabilized would recommend decreasing metoprolol back to metoprolol succinate 50 mg twice daily and reinstituting of the Entresto. 5. Continue amiodarone 400 mg p.o. twice daily. At discharge the dose will need to be decreased to 200 mg twice daily. 6. 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 7. Dr. June will be taken over the inpatient service tomorrow. Charges/Coding Visit Charges Inpatient E&M: 05277 [facility] Hosp L3
[2024-12-22] MEDS: Potassium Chloride Oral Tablet 20 MEQ 40 MEQ PO (10:29)
[2024-12-22] MEDS: Furosemide 40 MG Tablet PO ×2 (10:30→17:45)
[2024-12-22] MEDS: Amiodarone 200 MG Tablet 400 MG PO ×2 (10:30→20:05)
[2024-12-22] MEDS: SACUBITRIL/VALSARTAN 24/26 MG TABLET 1 EACH PO (10:30)
[2024-12-22] MEDS: Pantoprazole Sodium 40 MG in 0.9% Normal Saline (100mL MB+) 100 ML 330 MG IV (10:31)
--- NOTE | 2024-12-22 11:41 | VDUE_ITS ---
Reason For Study Reason For Study: Right antecubital pain Right Proximal Left Proximal Right jugular vein is spontaneous, widely patent, Left subclavian vein is spontaneous, widely patent, phasic, with no intraluminal echogenicity noted. phasic, with no intraluminal echogenicity noted. Right subclavian vein is spontaneous, widely patent, phasic, with no intraluminal echogenicity noted. Right Lower Arm Right radial vein is compressible. Right ulnar vein is compressible. Right Arm Right axillary vein is spontaneous, patent, phasic, competent, compressible and demonstrates augmentation. Right brachial vein is compressible. Acute superfical vein thrombosis is noted in the right cephalic vein from prox bicep to antecube. Right basilic vein is compressible. Procedure This was a unilateral right upper extremity venous doppler examination. Exam performed portable in patient room. A preliminary report was called and/or faxed to Tami SAPP. VL/Venous Duplex US, Unilateral Interpretation Summary Deep veins of the right upper extremity are patent and compressible segmentally . There is no evidence of deep vein thrombosis. Acute superficial thrombophlebitis is noted in the right cephalic v ein from the proximal bicep to the antecubital space. The right basilic vein is patent and compressible. The left subclavian vein is patent. Ordering Physician: Zechariah Plasencia Referring Physician: Zechariah Vasquez MD Performed By: Ngoc Cortez RVT ???
[2024-12-22] MEDS: Metoprolol(XL)Succ 50 MG Tablet PO (12:46)
--- NOTE | 2024-12-22 14:15 | RAD_ITS ---
PROCEDURE: CXR FOR PICC LINE PLACEMENT 12/22/2024 REASON FOR EXAM: PICC LINE PLACEMENT TECHNIQUE: 1 views of the chest, AP upright portable. COMPARISON: 11/11/2024 chest. FINDINGS: Lungs: Subsegmental atelectasis and/or infiltrate in the lower lobes. Pleura: No pleural effusions, thickening, or pneumothorax. Heart: Normal in size and configuration. Mediastinum/[place]: Unremarkable. Great vessels: Unremarkable. Bones/soft tissues: Unremarkable. Therapeutic devices: A left PICC line has been inserted, tip projecting over the superior vena cava. Cardiac monitoring leads overlie the chest wall. RAD/CXR for Line Placement IMPRESSION: Successful placement of left PICC line. Concern for subsegmental atelectasis and/or infiltrate in the bilateral lower l obes. Reading Location: [place] [id number]
--- NOTE | 2024-12-22 14:49 | PN.SURG_ITS ---
Subjective Subjective Events of the past [address] scan obtained late yesterday afternoon because of increasing white count and abdominal distention and this showed further progression of intra-abdominal abscess. He now has 2 abscesses each measuring about 4-4 and half centimeters each. Apparently yesterday the output was somewhat purulent and then overnight nursing noted that this became more feculent in its appearance. Patient denies any significant clinical change from his standpoint. He still complaining of pain but this is not been any worse than previous few days Objective Data Objective Data Vital Signs: Vital Signs Temp Pulse Resp BP Pulse Ox O2 Del Method O2 Flow Rate 97.7 F L 132 H 18 121/100 H 95 Room Air 2 12/22/24 10:24 12/22/24 12:46 12/22/24 10:24 12/22/24 12:43 12/22/24 10:24 12/22/24 10:39 12/21/24 06:45 FiO2 98 12/15/24 12:25 Oxygen Flow Rate (L/min) 2 Oxygen Delivery Method Room Air Weight: 231 lb 4 oz Body Mass Index (BMI) 33.1 Intake & Output: Intake and Output for Last 24 Hours 12/20/24 12/21/24 12/22/24 23:59 23:59 23:59 Intake Total 1059.58 / 1059.58 385.00 / 385.00 200 / 200 Output Total 2325 / 2325 900 / 900 Balance -1265.42 / -1265.42 -515.00 / -515.00 200 / 200 Lab / Micro Data 12/22/24 05:39 12/22/24 05:39 Labs: Laboratory Results - last 24 hr 12/22/24 05:39: WBC 16.2 H, RBC 4.83, Hgb 11.9 L, Hct 39.2 L, MCV 81.2, MCH 24.6 L, MCHC 30.4 L, RDW Std Deviation 59.3 H, RDW Coeff of Sea 20.3 H, Plt Count 449, MPV 10.7, Immature Gran % (Auto) 1.400 H, Neut % (Auto) 87.1 H, Lymph % (Auto) 7.5 L, [place] % (Auto) 3.5, Eos % (Auto) 0.2, Baso % (Auto) 0.3, Absolute Neuts (auto) 14.1 H, Absolute Lymphs (auto) 1.21, Nucleated RBC % 0, Anisocytosis 1+, Sodium 136, Potassium 3.8, Chloride 100, Carbon Dioxide 22.6, Anion Gap 14, BUN 15, Creatinine 1.11, Estim Creat Clear Calc 74.04, Est GFR (MDRD) Non-Af 71, BUN/Creatinine Ratio 13.5, Glucose 115 H, Calcium 8.2 Radiography Diagnostic Testing: Radiology Impression Abdomen/Pelvis CT 12/21/24 15:01 IMPRESSION: 1. Interval placement of a surgical drain, with slight decrease in size of the abscess near the drain tip, which now measures up to 3.1 cm (previously 4.0 cm on 12/13/2024). Of note, the drain tip is located slightly lateral to the residual collection. Additionally, the drain courses in close proximity and potentially through a loop of small bowel, though indentation on the bowel wall could appear similar. Correlate with drain output and consider short interval repeat CT or fluoroscopy. 2. There is a new hypodense collection with rim enhancement in the mid abdomen measuring up to 8.2 cm in size, concerning for a new developing abscess. The drain tube traverses 2 cm anterior to this collection. 3. Mild dilation of the small bowel and prominent distention of the large bowel, without abrupt transition point. Findings are favored to be the result of ileus. 4. Indeterminate lesion at the upper pole of the left kidney measuring 1.1 cm. Recommend dedicated renal CT or MRI when clinically appropriate. 5. Bibasilar consolidation may be the result of atelectasis or infection. Davis Alert: New fluid collection, concern for tube coursing through small bowel The critical information above was relayed directly by me by telephone to Basil Ramírez on 12/21/2024 at 11:44 pm with readback verification. Reading Location: [id number] Chest X-Ray 12/22/24 14:15 IMPRESSION: Successful placement of left PICC line. Concern for subsegmental atelectasis and/or infiltrate in the bilateral lower lobes. Reading Location: [facility] Rhythm Strip Rhythm Strip: A-fib Rate: 112 Physical Exam Narrative He is alert and oriented x 3. He has no acute distress. Abdomen is soft and distended. No erythema. Incisions appear clean dry and intact. He does have an umbilical hernia that is unremarkable. AMY drain with feculent output. Assessment & Plan Assessment/Plan (1) Colonic diverticular abscess: PLAN: Plan The patient is a 69-year-old male with a history of Crohn's disease who presented with sigmoid diverticulitis with colonic abscess. This was not amenable to percutaneous drainage. Patient underwent a laparoscopic washout procedure with Dr. Harris. Over the weekend patient was doing fairly well and was regaining bowel function. However, patient has been having a slowly increasing white count and abdomen seemed more distended yesterday. A CT scan was obtained. This showed progression of his abscesses despite recent drainage procedure. AMY drain output now becoming feculent. Patient received Eliquis yesterday. Due to the feculent output we felt that surgery would be most definitive by way of Venkat procedure. We discussed that his surgery may be quite complex given the amount of inflammation and his history of Crohn's disease as well as recent steroid use. We did discuss option of transfer to a tertiary center/colorectal surgeon. Patient has well-established with [facility] and the patient, his and myself all felt that mutually this may be in his best interest. I discussed this with hospitalist. I reached out to [facility] transfer line and began the transfer process. I am currently awaiting a callback from one of their surgeons. In the meantime we are recommending starting TPN through PICC line for nutrition.
--- NOTE | 2024-12-22 15:34 | CASEMGMT ---
Tertiary Insurance review for hospitals In-network with?[employer] [facility] insurance if transfer is recommended is as follows: [facility], [facility], [facility], [facility], [facility], , [place], [facility], [facility], and [place]. Liz Pulliam, Discharge Planning Asst.
[2024-12-22] MEDS: [UNRECOGNIZED DRUG - OTHER] IV (16:46)
[2024-12-22] MEDS: TRACE ELEMENTS IV (16:46)
[2024-12-22] MEDS: MULTIVITAMINS IV (16:46)
[2024-12-22] MEDS: 0.9% Saline Lock 10 ML Syringe IV ×2 (16:56→20:28)
--- NOTE | 2024-12-22 17:47 | PCM.DC.SUM ---
Providers Date of Admission: 12/13/24 Primary Care Physician: Dr. Zechariah Vasquez MD Consultations 12/13/24 21:01 Consult: General Surgery Routine Consulting Provider: Delano Harris Reason for Consult: Diverticulitis with abscess EMERGENT Consult: Yes MD Notified: Yes Date Notified: 12/13/24 Time Notified: 20:31 Method of Notification: ED Physician Initiated 12/14/24 06:36 Consult: Cardiology Routine Consulting Provider: [facility] Reason for Consult: afib RVR EMERGENT Consult: No MD Notified: Yes Date Notified: 12/14/24 Time Notified: 06:36 Method of Notification: Verbal 12/15/24 11:23 Consult: [employer] / Pulmonary Medicine Routine Consulting Provider: [employer]/Pulmonary Med Reason for Consult: diverticulitis w/ abscess, afib w/ rvr w/ borderline BP EMERGENT Consult: No Notified: Yes Date Notified: 12/15/24 Time Notified: 11:23 Method of Notification: Verbal Reason For Visit: DIVERTICULITIS WITH ABSCESS AFIB RVR Diagnosis Discharge Diagnosis (1) Diverticulitis: Status: Acute Code(s): K57.92 - Diverticulitis of intestine, part unspecified, without perforation or abscess without bleeding Plan: Sigmoid diverticulitis with abscess General Surgery following. CT abdomen pelvis on admit showed acute sigmoid diverticulitis with an adjacent 4 cm abscess formation. S/p exploratory laparoscopy with drainage of abscess, washout and drain placement with surgery on 12/15. Patient tolerated procedure well. Slowly improving and is passing flatus. Repeat CT showed that the previous abscess slightly decrease and drain tip slightly lateral to abscess. Now new hypodense collection w rim enhance in the mid abdomen measuring up to 8.2cm Continue IV pip/tazo. Continue symptom control with IV pain and nausea medications as needed. NPO. TPN and PICC ordered. Reviewed CXR post PICC placement, Left sided PICC above the RA. OK to use PICC line. DW Dr. Rivera, pt needs surgery. He discussed with the patient, and given the complexity and potential for colostomy reversal, pt would prefer to go to tertiary facility. Patient requesting [facility] given his history and previously established at [facility]. I recommended Dr. Rivera initiate the transfer to more easily discuss the findings with the surgical service. He agreed and would initiate the calls. (2) Atrial fibrillation with RVR: Status: Acute Code(s): I48.91 - Unspecified atrial fibrillation Plan: Cardiology following. Follows with cardiology EP in [place]; completed Tikosyn loading followed by cardioversion there last week. Unfortunately was only in sinus rhythm for 2 days before going back into A-fib. Was in A-fib with RVR on arrival here. Echo 12/14 showed moderately dilated LV, EF 35 to 40%, no other abnormalities and stable from previous. Cardiology DC digoxin, change metoprolol tartrate to succinate 50 BID, continue amiodarone 400 BID. Now off amiodarone gtt. Stop apixaban and restart heparin gtt given new findings of (3) Superficial venous thrombosis of arm: Status: Acute Code(s): I82.619 - Acute embolism and thrombosis of superficial veins of unspecified upper extremity Plan: in RUE. Preliminary US confirms this (formal read pending) Supportive mgmt. Plan Chronic conditions: History of HFrEF, hypertension? Follows with cardiology in [place]. Last echo in 2022 showed EF 40%. Repeat echo on 12/14 as noted above with no change from previous. Lasix had been held for several days with borderline low blood pressures but patient weight was increasing and she appeared more volume overloaded with slightly worsening oxygen requirements. Started on IV Lasix 40 mg twice daily on 12/18 with good urine output; will continue this through 12/19 and plan to resume home p.o. Lasix 40 mg daily on 12/20. Per cardiology recommendations, will start Entresto at low-dose on 12/19. Continue to monitor closely. Class I obesity with KIM? BMI 33 on admit. Encouraged weight loss. Continue CPAP at night and with naps. DVT prophylaxis: Not indicated, as already anticoagulated. Greater than 60 minutes of which greater than 50 the time was discussing with the patient at bedside about CAT scan findings, need for n.p.o. status, SVT, need for TPN and PICC line. Also, remainder of the time was discussing with specialists (cardiology and surgery). Medications at Discharge Home Medications ascorbic acid (vitamin C) 500 mg tablet 2 gm PO DAILY general health 05/05/15 fluticasone fur. 100 mcg-umeclid 62.5 mcg-vilant 25 mcg inhalat.powder 1 ea inhalation DAILY breathing 09/27/20 apixaban 5 mg tablet (Eliquis) 5 mg PO BID blood thinner 03/20/23 albuterol sulfate 2.5 mg/3 mL (0.083 %) solution for nebulization 2.5 mg inhalation TID PRN PRN bronchospasm 12/13/24 balsalazide 750 mg capsule 2,250 mg PO TID ULCERATIVE COLITIS 12/13/24 dofetilide 250 mcg capsule 250 mcg PO Q12H heart 12/13/24 ipratropium bromide 21 mcg (0.03 %) nasal spray 1 - 2 spray intranasal Q6H PRN PRN allergy symptoms 12/13/24 metoprolol succinate 50 mg tablet,extended release 24 hr 50 mg PO Q12H blood pressure 12/13/24 potassium chloride 20 mEq tablet,extended release(part/cryst) (Klor-Con M) 40 meq PO DAILY potassium 12/13/24 sacubitril 24 mg-valsartan 26 mg tablet (Entresto) 1 tab PO Q12.TCU heart 12/13/24 spironolactone 25 mg tablet 25 mg PO DAILY diuretic 12/13/24 dapagliflozin propanediol 10 mg tablet (Farxiga) 10 mg PO DAILY Heart failure 12/18/24 furosemide 40 mg tablet 40 mg PO BID diuretic 12/18/24 Hospital Course Operations - (Exploratory laparoscopy with drainage of abscess and washout) Procedures 2-D Echocardiogram and PICC line placement Summary of Care Provided Minutes Spent on Discharge: 60 Hospital Course: This is a 69-year-old male presents with abdominal pain. Was found to have diverticulitis with an abscess. Patient admitted to the intensive care unit started on IV pip-tazo. Patient underwent an exploratory laparoscopy with drainage of the abscess and washout 2 days later on 15 December. While he was here did develop atrial fibrillation with RVR and was seen by cardiology. Heart rate remained difficult to control then cardiology was further managing that. Did have some success with rhythm control on the third but then he reverted back to atrial fibrillation. Patient had a subsequent CAT scan that showed improvement of the abscess but missed placement of the drain as it was no longer in the abscess and the fluid being drained from the AMY appeared brown and feculent in appearance. Patient also noted to have a larger abscess. Patient had a conversation with surgery and elected to be transferred because of concern for eventual reversal of what ever surgery he could potentially have such as having a colostomy. Patient was excepted at [facility] where he has been well-established with his the cardiology team they are aware he is had very difficult to control atrial elation previously on Tikosyn. They were able to get him up the same day so patient will be discharged to their in stable condition. Additionally why he was here he had an infiltration of his right antecubital IV and subsequent imaging showed an SVT. Discussed with he and his that is conservative management for that. And patient was started on TPN and had a PICC line placed because of him not having much eaten currently being NPO. Weight / BMI Weight Weight: 104.893 kg Body Mass Index (BMI) 33.1 ABG / Lab / Microbiology Data 12/22/24 05:39 12/22/24 05:39 Laboratory: Laboratory Results - last 24 hr 12/22/24 05:39: WBC 16.2 H, RBC 4.83, Hgb 11.9 L, Hct 39.2 L, MCV 81.2, MCH 24.6 L, MCHC 30.4 L, RDW Std Deviation 59.3 H, RDW Coeff of Sea 20.3 H, Plt Count 449, MPV 10.7, Immature Gran % (Auto) 1.400 H, Neut % (Auto) 87.1 H, Lymph % (Auto) 7.5 L, [place]rentiss % (Auto) 3.5, Eos % (Auto) 0.2, Baso % (Auto) 0.3, Absolute Neuts (auto) 14.1 H, Absolute Lymphs (auto) 1.21, Nucleated RBC % 0, Anisocytosis 1+, Sodium 136, Potassium 3.8, Chloride 100, Carbon Dioxide 22.6, Anion Gap 14, BUN 15, Creatinine 1.11, Estim Creat Clear Calc 74.04, Est GFR (MDRD) Non-Af 71, BUN/Creatinine Ratio 13.5, Glucose 115 H, Calcium 8.2 Radiography Diagnostic Testing: Radiology Impression Abdomen/Pelvis CT 12/21/24 15:01 IMPRESSION: 1. Interval placement of a surgical drain, with slight decrease in size of the abscess near the drain tip, which now measures up to 3.1 cm (previously 4.0 cm on 12/13/2024). Of note, the drain tip is located slightly lateral to the residual collection. Additionally, the drain courses in close proximity and potentially through a loop of small bowel, though indentation on the bowel wall could appear similar. Correlate with drain output and consider short interval repeat CT or fluoroscopy. 2. There is a new hypodense collection with rim enhancement in the mid abdomen measuring up to 8.2 cm in size, concerning for a new developing abscess. The drain tube traverses 2 cm anterior to this collection. 3. Mild dilation of the small bowel and prominent distention of the large bowel, without abrupt transition point. Findings are favored to be the result of ileus. 4. Indeterminate lesion at the upper pole of the left kidney measuring 1.1 cm. Recommend dedicated renal CT or MRI when clinically appropriate. 5. Bibasilar consolidation may be the result of atelectasis or infection. [place]inkler Alert: New fluid collection, concern for tube coursing through small bowel The critical information above was relayed directly by me by telephone to Basil Ramírez on 12/21/2024 at 11:44 pm with readback verification. Reading Location: [id number] Chest X-Ray 12/22/24 14:15 IMPRESSION: Successful placement of left PICC line. Concern for subsegmental atelectasis and/or infiltrate in the bilateral lower lobes. Reading Location: [facility] D/C Instructions DC O2, CPAP, BIPAP Needs Home O2 Discharge instructions: No Meaningful Use Info Meaningful Use Meaningful Use Diagnoses (Choose all that apply): None applicable Ischemic Stroke Statin Dosing Therapy Reference: STATIN DOSE THERAPY REFERENCE: * Patients > 75 years receive moderate or high dose statin therapy. * Patients 75 years or YOUNGER should receive HIGH intensity statin dose unless contraindicated. You will be required to document reason for non-treatment if statin daily dose does not meet guidelines. HIGH DOSE STATIN THERAPY DAILY Atorvastatin > than or = to 40 mg Rosuvastatin > than or = to 20 mg Amlodipine + Atorvastatin > than or = to 2.5/40 mg Ezetimibe + Simvastatin 10/80 mg Simvastatin 80mg Discharge Plan Admission Admit Date/Time: 12/13/24 20:27 Primary Reason for Your Visit: Diverticulitis Attending Provider: Zechariah Plasencia Primary Care Provider: Zechariah Vasquez Consulting Providers: Delano Harris; Zhang Hester; Leyda Moore; Harrison Morris; Joss Cooper; Kareem Tellez; Pancho Costa; Eric Buenrostro; Jaziel Lundberg; Basil Hunter; Cecile June; Bharathi Gray; Ike Dawkins; Etienne Hernandez NP; Mariangel Rider; Ciro Benson; Aaron Hardin; Almas Casanova; Ramana Ford; Montana Leone; Greg Lennon; Gibran Huizar; Hugh Doss; Ani Smith; Jak Corrigan; Alfie Loyola; Danny Prescott; Jagruti Bunch; Renee Hrenandez; Danyell Yang; Clemente Chao; Charles Carrington; Jesus Sheffield; Tyrell Vasquez; Kelly Mix; Fabiola Markham; Scooby Beasley; Varinder Medel; Leno Scherer; Eric Gutierrez Discharge Orders/Prescriptions Prescriptions: No Action Eliquis 5 mg tablet 5 mg PO BID Patient Comments: TAKE 1 TABLET BY MOUTH TWICE A DAY FOR 90 DAYS ascorbic acid (vitamin C) 500 MG tablet 2 gm PO DAILY [id number] 100-62.5-25 mcg blister with device 1 ea INHALATION DAILY albuterol sulfate 2.5 mg /3 mL (0.083 %) solution for nebulization 2.5 mg inhalation TID PRN PRN (Reason: bronchospasm) dofetilide 250 mcg capsule 250 mcg PO Q12H metoprolol succinate 50 mg tablet extended release 24 hr 50 mg PO Q12H potassium chloride [Klor-Con M20] 20 mEq tablet,ER particles/crystals 40 meq PO DAILY Entresto 24-26 mg tablet 1 tab PO Q12.TCU spironolactone 25 mg tablet 25 mg PO DAILY ipratropium bromide 21 mcg (0.03 %) spray,non-aerosol 1 - 2 spray INTRANASAL Q6H PRN PRN (Reason: allergy symptoms) balsalazide 750 mg capsule 2,250 mg PO TID dapagliflozin propanediol [Farxiga] 10 mg tablet 10 mg PO DAILY furosemide 40 mg tablet 40 mg PO BID Referrals / Follow Up: Zechariah Vasquez MD [Primary Care Provider] - Disposition Disposition (needs filled in before D/C Order can be placed): Acute Care Hospital Charges/Coding Visit Charges Inpatient E&M: 91867 Disch Hosp >30min
[2024-12-22 18:01] LABS: International Normalized Ratio 1.4; Prothrombin Time (Protime)PT. 17.9 SECONDS (11.7-14.9)
[2024-12-22 18:02] LABS: Partial Thromboplast Time 34.4 Seconds (24.1-36.2)
== END 2024-12-22 20:50 | disposition short-term general hospital (02) | DRG 357 ==
LOC: ED 19:18 → ICU 20:28 → PCU 12-20 06:56 → ICU 12-21 14:54 → PCU 12-21 14:57
PROVIDERS: Family Medicine; Hospitalist; Internal Medicine Cardiovascular Disease; Internal Medicine Critical Care Medicine; Internal Medicine Interventional Cardiology; Surgery; Admitting Provider Family Medicine; Emergency Provider Emergency Medicine; PCP Family Medicine
PROC: 0DTJ4ZZ Resection of Appendix, Percutaneous Endoscopic Approach (ICD-10-PCS; CPT 44970; principal; 2024-12-15 12:40)
DX: K57.20 Diverticulitis of large intestine with perforation and abscess without bleeding (principal); I48.92 Unspecified atrial flutter; K56.7 Ileus, unspecified; K91.89 Other postprocedural complications and disorders of digestive system; J44.9 Chronic obstructive pulmonary disease, unspecified; I10 Essential (primary) hypertension; E66.811 Obesity, class 1; G47.33 Obstructive sleep apnea (adult) (pediatric); I48.0 Paroxysmal atrial fibrillation; Z79.01 Long term (current) use of anticoagulants; Z79.51 Long term (current) use of inhaled steroids; Z68.33 Body mass index [BMI] 33.0-33.9, adult; Z79.899 Other long term (current) drug therapy; Z87.891 Personal history of nicotine dependence
CPT/HCPCS: 36415; 36569; 71045; 74018; 74019; 74174; 74177; 80048; 80053; 83605; 83690; 83735; 85025; 85027; 85610; 85730; 93005; 93308; 93971; 94640; 94660; 94762; 97116; 97162; 97166; 97530; 97535; 97803; 99285; Q9957; Q9967; A4216; C8924; J1938; J2405

== ENCOUNTER → 2025-03-28 | Outpatient (CLI) | payer MEDICARE, SELFPAY ==
--- NOTE | 2025-03-28 10:04 | CDU_ITS ---
Reason For Study Reason For Study: Bilateral Carotid Bruits Rt. Velocities/BP Lt. Velocities/BP Prox CCA 123.4/30.1 cm/sec. Prox CCA 157.8/28.3 cm/sec. Mid CCA 177.8/30.1 cm/sec. Mid CCA 176.0/30.8 cm/sec. Dist CCA 221.9/35.2 cm/sec. Dist CCA 165.6/28.3 cm/sec. Prox ICA 171.0/32.0 cm/sec. Prox ICA 223.2/42.8 cm/sec. Mid ICA 224.5/43.0 cm/sec. Mid ICA 142.3/33.4 cm/sec. Dist ICA 78.5/17.1 cm/sec. Dist ICA 113.8/33.4 cm/sec. Rt. ICA/CCA = 1.3. Lt. ICA/CCA = 1.3. Prox ECA 159.7/14.5 cm/sec. Prox ECA 235.0/19.2 cm/sec. Rt. Vert. 41.6/13.4 cm/sec. Lt. Vert. 91.1/27.2 cm/sec. Right Extracranial There is heterogeneous, irregular atherosclerotic plaque noted in the right common carotid artery. There is heterogeneous, irregular atherosclerotic plaque noted in the right internal carotid artery. There is heterogeneous, irregular atherosclerotic plaque noted in the right external carotid artery. Antegrade flow is noted in the right vertebral artery. Left Extracranial There is heterogeneous, irregular atherosclerotic plaque noted in the left common carotid artery. There is heterogeneous, irregular atherosclerotic plaque noted in the left internal carotid artery. There is heterogeneous, irregular atherosclerotic plaque noted in the left external carotid artery. Abnormal waveform morphology noted. Procedure Carotid Duplex [id number]. This is a Carotid Duplex examination using B-mode, color flow and specral Doppler. The exam was diagnostic. Exam performed in department. VL/Carotid Duplex Ultrasound Interpretation Summary Moderate (50-69%) stenosis right extracranial internal carotid. Moderate (50-69%) stenosis left extracranial internal carotid. Patent and antegrade vertebrals bilaterally. Abnormal waveforms bilateral. Ordering Physician: Basil Hunter Referring Physician: Zechariah Vasquez Performed By: Roger Shearer RVT and Student
== END | disposition home or self-care (01) ==
PROVIDERS: PCP Family Medicine; Referring Provider Internal Medicine Cardiovascular Disease; Visit Provider Internal Medicine Cardiovascular Disease
DX: R09.89 Other specified symptoms and signs involving the circulatory and respiratory systems (principal)
CPT/HCPCS: 93880

== ENCOUNTER → 2025-04-06 | Outpatient (CLI) | payer MEDICARE, SELFPAY ==
--- NOTE | 2025-04-06 10:41 | ECHOLC_ITS ---
Reason For Study Reason For Study: AFib/Flutter Procedure This was a limited 2D transthoracic echocardiogram. Contrast injection was performed. Exam performed in department. Left Ventricle Normal LV size. Left ventricular systolic function is normal. The estimated ejection fraction is 53 %. No regional wall motion abnormalities noted. Right Ventricle Normal RV size. Normal systolic function. Atria Normal left atrium. Normal right atrium. Mitral Valve Normal mitral valve. Tricuspid Valve Normal tricuspid valve. Aortic Valve The aortic valve is not well visualized. Great Vessels Normal aortic root. Pericardium/Pleural No pericardial effusion. Medication 22 gauge I.V. with prn adaptor inserted into right arm. Diluted definity 1ml given slow IV push to enhance endocardial definition. MMode/2D Measurements & Calculations LVIDd: 4.5 cm IVSd: 0.97 cm LAV(MOD- bp): 65.8 ml LVIDs: 3.6 cm LVPWd: 1.2 cm LAV(MOD- bp) Indexed: 30.8 ml/m2 FS: 18.6 % LAV(MOD- sp2): 78.5 ml LAV(MOD- sp4): 54.9 ml SV(MOD- sp4): 73.5 ml LVAd ap4: 41.3 cm2 LVAd ap2: 42.1 cm2 LVLd ap4: 9.3 cm LVLd ap2: 9.0 cm SI(MOD- sp4): 34.4 ml/m2 EDV(MOD-sp4): 149.3 ml EDV(MOD-sp2): 163.1 ml EDV(sp4-el): 156.1 ml EDV(sp2-el): 167.0 ml LVAs ap4: 26.5 cm2 LVAs ap2: 26.9 cm2 LVLs ap4: 7.7 cm LVLs ap2: 7.8 cm ESV(MOD-sp4): 75.8 ml ESV(MOD-sp2): 74.6 ml ESV(sp4-el): 77.8 ml ESV(sp2-el): 78.4 ml EF(MOD-sp4): 49.2 % EF(MOD-sp2): 54.2 % EF(sp4-el): 50.2 % SV(MOD-sp2): 88.4 ml SV(sp4-el): 78.4 ml LA A4 area: 20.1 cm2 SI(MOD-sp2): 41.4 ml/m2 RA A4 area: 18.6 cm2 ECHO/Echo Limited w/Contrast Interpretation Summary Normal LV size. Left ventricular systolic function is normal. The estimated ejection fraction is 53 %. Contrast injection was performed. Structurally normal valves. Ordering Physician: Basil Hunter Referring Physician: Basil Hunter Performed By: Michael Wagner RCS
== END | disposition home or self-care (01) ==
LOC: CVS 10:37
PROVIDERS: PCP Family Medicine; Referring Provider Internal Medicine Cardiovascular Disease; Visit Provider Internal Medicine Cardiovascular Disease
DX: R60.0 Localized edema (principal)
CPT/HCPCS: 93308; Q9957; A4216; C8924

== ENCOUNTER → 2025-06-03 | Outpatient (CLI) | payer MEDICARE, SELFPAY ==
[2025-06-03 18:04] LABS: Hematocrit 37.7 % (40-54); Hemoglobin 11.7 g/dL (13.0-16.5); Immature Granulocytes Count 0.020 X10^3/uL (0.0-0.0); Mean Corp Hgb Conc 31.0 g/dL (32-36); Mean Corpuscular Volume 83.2 fL (80-94); Mean Platelet Vol. 11.0 fl (6.2-12.0); NRBC Flagged by Analyzer 0 % (0-5); Platelet Count 291 K/mm3 (150-450); RBC Distribution Width CV 18.6 % (11.6-14.6); RBC Distribution Width SD 56.6 fl (35.1-43.9); Red Blood Count 4.53 M/mm3 (4.6-6.2); White Blood Count 8.2 K/mm3 (4.4-11.0)
--- OUTSIDE RECORDS SUMMARY | 2025-06-03 18:05 | XMS RPT_ITS | CCD ---
Author Organization [facility] Care Team Providers Care [place] Name Role Phone Adeline Zambrano MD Primary Care Provider MELYSSA MAGDALENO Referring Unavailable ADELINE ZAMBRANO Primary Care Unavailable MELYSSA MAGDALENO Attending Unavailable MELYSSA MAGDALENO Attending Unavailable MELYSSA MAGDALENO Referring Unavailable ADELINE ZAMBRANO Primary Care Unavailable MELYSSA MAGDALENO Attending Unavailable MELYSSA MAGDALENO Referring Unavailable ADELINE ZAMBRANO Primary Care Unavailable Dr. Zechariah Siddiqui Primary Care Provider Dr. Zechariah Siddiqui Referring Provider Adry ROTH, PA Mariangel Kendrick Attending Provider Dr. Eric Buenrostro Attending Provider Dr. Eric Buenrostro Referring Provider Adeline Zambrano MD Primary Care Provider Dr. Zechariah Siddiqui MD Primary Care Provider Dr. Samuel Carreno MD Attending Provider Dr. Samuel Carreno MD Referring Provider Dr. Zechariah Siddiqui MD Attending Provider Dr. Zechariah Siddiqui MD Referring Provider Dr. Tee Mahmood MD, V Attending Provider Dr. Tee Mahmood MD, V Referring Provider [phone] Dr. Zechariah Siddiqui MD Primary Care Provider Dr. Samuel Carreno MD Attending Provider Dr. Oswaldo Frances DO Emergency Provider Kacie BAY, Dr. Holcomb Admit Provider Kacie BAY, Dr. Holcomb Attending Provider Kacie BAY, Dr. Holcomb Other Provider Pdero BAY, Dr. Apple Primary Care Provider Pedro BAY, Dr. Apple Attending Provider Pedro BAY, Dr. Apple Referring Provider Ela BAY, Dr. Tee Bro Attending Provider Ela BAY, Dr. Tee Bro Referring Provider Yvrose GILLIS, Dr. Chacon Emergency Provider Kacie BAY, Dr. Holcomb Admit Provider Kacie BAY, Dr. Holcomb Attending Provider Kacie BAY, Dr. Holcomb Other Provider Steven BAY, Dr. Wick Other Provider Teresa BAY, Dr. Crabtree Other Provider Unavailable Arturo BAY, Dr. Terry Other Provider Kenneth BAY, Dr. Coreas Other Provider Geoff BAY, Dr. Serna Other Provider Julissa BAY, Dr. Deleon Other Provider Unavailable Porter BAY, Dr. Reyes Other Provider Toño BAY, Dr. Sheriff Other Provider Dale BAY, Dr. Gracia Other Provider Slade BAY, Dr. Huber Other Provider Isaac BAY, Dr. Garvin Other Provider Juancho BAY, Dr. Ramires Other Provider Mary RECORDS MANAGEMENT MANAGER-C, Etienne Nguyen Other Provider Mariangel Salazar Other Provider Ciro Cheney Other Provider Lashawn BAY, Dr. Walker Other Provider Jocelyne BAY, Dr. Coburn Other Provider Logan BAY, Dr. Boles Other Provider Vasu GILLSI, Dr. Boyle Other Provider Citlalli BAY, Dr. Greg Coffey Other Provider Bhupendra BAY, Dr. Leary Other Provider Selam BAY, Dr. Reese Other Provider Sarah BAY, Dr. Law Other Provider [phone] Shekhar BAY, Dr. Benedict Other Provider Nir BAY, Dr. Judge Other Provider Kenyon BAY, Dr. Delgado Other Provider [phone] Alivia BAY, Dr. Chand Other Provider Mary BAY, Dr. Duran Other Provider Unavailabl emma Yang MD, Dr. Child Other Provider [phone] Jeremie BAY, Dr. Cornejo Other Provider Zeb BAY, Dr. Soto Other Provider [phone] Yohannes BAY, Dr. Lee Other Provider Pedro GILLIS, Dr. Santillan Other Provider [phone] Maria Del Rosario BAY, Dr. Mendoza Other Provider [phone] Shahrzad BAY, Dr. Hicks Other Provider Dr. Scooby Beasley DO Other Provider Gianfranco BAY, Dr. Reeder Other Provider Gilmer BAY, Dr. Burr Other Provider Dr. Eric Gutierrez DO Other Provider [phone] Dr. Zechariah Plasencia DO Attending Provider Toño BAY, Dr. Sheriff Attending Provider Dr. Eric Gutierrez DO Attending Provider Steven BAY, Dr. Wick Attending Provider Dr. Montana Leone DO Attending Provider [phone] Desiree BAY, Dr. Gracia Attending Provider Nicole BAY, Dr. Adeline Viramontes Attending Provider Dale BAY, Dr. Gracia Attending Provider Dr. Zechariah Plasencia DO Other Provider 1([facility])[phone] Perfecto BAY, Dr. Marie James Attending Provider Mariposa KAM, Bianka Attending Provider Self, Self Primary Care Provider Unavailabl e SELF, SELF Primary Care Unavailable SIRINVARAVONG, NATEE Referring Unavailable HARZMAN, BARBARA E Admitting Unavailable HARZMAN, BARBARA E Attending Unavailable ADELINE RIVERA Referring Unavailable CONSULT, SICU Consulting Unavailable HARZMAN, BARBARA E Admitting Unavailable HARZMAN, BARBARA E Attending Unavailable ERNESTO SANTAMARIA Attending Unavailable ERIK, BAR R Admitting Unavailable CONSULT, CARDIOLOGY - HEART FAILURE Consulting Unavailable SELF, SELF Primary Care Unavailable ERIK, BAR R Referring Unavailable SELF, SELF Referring Unavailable ESTEFANIA PENA Attending Unavailable ZECHARIAH SIDDIQUI Primary Care Unavailable SELF, SELF Referring Unavailable ERIK, BAR R Attending Unavailable Unavailable Primary Care Provider UnavailDr. Zechariah Wagoner MD Primary Care Provider 1([facility])[phone] Dr. Zechariah Siddiqui MD Attending Provider Dr. Zechariah Siddiqui MD Referring Provider [phone] Jaziel Lundberg MD Other Provider 1([facility])[phone] Jaziel Lundberg MD Attending Provider 1([facility])[phone] Dr. Zechariah Plasencia DO Referring Provider 1([facility])[phone] Dr. Delano Harris MD Referring Provider Catherine BAY, Dr. Dedrick Viramontes Attending Provider 1([facility])[phone] Pedro BAY, Dr. Apple Primary Care Physician Yvrose GILLIS, Dr. Chacon Emergency Department Physician Kacie BAY, Dr. Holcomb Admitting Physician Kacie BAY, Dr. Holcomb Nurse Practitioner Steven BAY, Dr. Wick Nurse Practitioner Teresa BAY, Dr. Crabtree Nurse Practitioner Unavailabl e Arturo BAY, Dr. Terry Nurse Practitioner Kenneth BAY, Dr. Coreas Nurse Practitioner Geoff BAY, Dr. Serna Nurse Practitioner Julissa BAY, Dr. Deleon Nurse Practitioner Unavaila milo Buenrostro MD, Dr. Reyes Nurse Practitioner Toño BAY, Dr. Sheriff Nurse Practitioner Dale BAY, Dr. Gracia Nurse Practitioner Slade BAY, Dr. Huber Nurse Practitioner Isaac BAY, Dr. Garvin Nurse Practitioner Juancho BAY, Dr. Ramires Nurse Practitioner [facility] RECORDS MANAGEMENT MANAGER-C, Etienne Nguyen Nurse Practitioner Mariangel Salazar Nurse Practitioner Ciro Cheney Nurse Practitioner Lashawn BAY, Dr. Walker Nurse Practitioner Jocelyne BAY, Dr. Coburn Nurse Practitioner Logan BAY, Dr. Boles Nurse Practitioner Vasu GILLIS, Dr. Boyle Nurse Practitioner [phone] Citlalli BAY, Dr. Greg Coffey Nurse Practitioner Bhupendra BAY, Dr. Leary Nurse Practitioner Selam BAY, Dr. Reese Nurse Practitioner Sarah BAY, Dr. Law Nurse Practitioner Shekhar BAY, Dr. Benedict Nurse Practitioner Nir BAY, Dr. Judge Nurse Practitioner [phone] Kenyon BAY, Dr. Delgado Nurse Practitioner Alivia BAY, Dr. Chand Nurse Practitioner Mary BAY, Dr. Duran Nurse Practitioner Unavail able Celia BAY, Dr. Child Nurse Practitioner Jeremie BAY, Dr. Cornejo Nurse Practitioner Zeb BAY, Dr. Soto Nurse Practitioner Yohannes BAY, Dr. Lee Nurse Practitioner Pedro GILLIS, Dr. Santillan Nurse Practitioner Maria Del Rosario BAY, Dr. Mendoza Nurse Practitioner Shahrzad BAY, Dr. Hicks Nurse Practitioner Ramos GILLIS, Dr. Almodovar Nurse Practitioner [phone] Gianfranco BAY, Dr. Reeder Nurse Practitioner Gilmer BAY, Dr. Burr Nurse Practitioner Matt GILLIS, Dr. Reyes Nurse Practitioner Erinn GILLIS, Dr. Apple Attending Physician Dr. Zechariah Plasencia DO Nurse Practitioner Dr. Basil Hunter MD Attending Physician Bianka Monge PA-C Attending Physician Nicole BAY, Dr. Adeline Viramontes Attending Physician Catherine BAY, Dr. Dedrick Viramontes Attending Physician Dr. Zechariah Plasencia DO Referring Provider Dr. Zechariah Siddiqui MD Referring Provider [phone] Dale BAY, Dr. Gracia Referring Provider Dr. Zechariah Kline MD Attending Physician Porter BAY, Dr. Reyes Attending Physician Sibilia, Tee V Attending Unavailable Sibilia, Tee V Referring Unavailable Siddiqui, Zechariah Primary Care Unavailable Siddiqui, Zechariah Primary Care Unavailable Siddiqui, Zechariah Referring Unavailable Siddiqui, Zechariah Attending Unavailable Siddiqui, Zechariah Primary Care Unavailable Jaziel Lundberg Attending Unavailable Siddiqui, Zechariah Primary Care Unavailable Raisa, Zechariah Attending Unavailable Dale, Basil Referring Unavailable Siddiqui, Zechariah Referring Unavailable Siddiqui, Zechariah Attending Unavailable Siddiqui, Zechariah Primary Care Unavailable Dale, Basil Referring Unavailable Dale, Basil Attending Unavailable Siddiqui, Zechariah Primary Care Unavailable Samuel Carreno Attending Unavailable Siddiqui, Zechariah Primary Care Unavailable Jabour, Vincent Referring Unavailable Zechariah Plasencia Attending Unavailable Delano Harris Consulting Unavailable Siddiqui, Zechariah Primary Care Unavailable Zhang Hester Admitting Unavailable Zhang Hester Consulting Unavailable Leyda Moore Consulting Unavailable Harrison Morris Consulting Unavailable Joss Cooper Consulting Unavailable Kareem Tellez Consulting Unavailable Pancho Costa Consulting Unavailable Eric Buenrostro Consulting Unavailable Jaziel Lundberg Consulting Unavailable Basil Hunter Consulting Unavailable Cecile June Consulting UnavailBharathi Shipley Consulting Unavailable Ike Dawkins Consulting Unavailable Mary RECORDS MANAGEMENT MANAGER, Etienne Nguyen Consulting Unavailable Mariangel Salazar Consulting Unavail able Ciro Benson Consulting Unavailable Aaron Hardin Consulting Unavailable Almas Casanova Consulting Unavailable Ramana Ford Consulting Unavailable Montana Leone Consulting Unavailable Greg Lennon Consulting Unavailable Gibran Huizar Consulting Unavailable Hugh Doss Consulting Unavailable Ani Smith Consulting UnavailJak Martin Consulting Unavailable Alfie Loyola Consulting Unavailable Danny Prescott Consulting Unavailable Jagruti Bunch Consulting Unavailable Renee Hernandez Consulting Unavailable Danyell Yang Consulting Unavailable Jeremie Cleemnte Consulting Unavailable Charles Carrington Consulting Unavailable Jesus Sheffield Consulting Unavailable Tyrell Vasquez Consulting Unavailable Kelly Mix Consulting Unavailable Fabiola Markham Consulting Unavailable Scooby Beasley Consulting Unavailable Varinder Medel Consulting Unavailable Leno Scherer Consulting Unavailable Eric Gutierrez Consulting Unavailable Siddiqui, Zechariah Primary Care Unavailable Siddiqui, Zechariah Referring Unavailable Siddiqui, Zechariah Attending Unavailable Delano Harris Consulting Unavailable Siddiqui, Zechariah Primary Care Unavailable Belal, Farouk Attending Unavailable Zhang Hester Admitting Unavailable Zhang Hester Consulting Unavailable Leyda Moore Consulting Unavailable Harrison Morris Consulting Unavailable Joss Cooper Consulting Unavailable Kareem Tellez Consulting Unavailable Pancho Costa Consulting Unavailable Porter, Hardesty Consulting Unavailable Toño, Demiank Consulting Unavailable Basil Hunter Consulting Unavailable Cecile June Consulting UnavailBharathi Shipley Consulting Unavailable Ike Dawknis Consulting Unavailable Mary ORELLANA, Etienne Nguyen Consulting Unavailable Mariangel Salazar Consulting Unavail able Ciro Benson Consulting Unavailable Aaron Hardin Consulting Unavailable Almas Casanova Consulting Unavailable Ramana Ford Consulting Unavailable Montana Leone Consulting Unavailable Greg Lennon Consulting Unavailable Gibran Huizar Consulting Unavailable Hugh Doss Consulting Unavailable Ani Smith Consulting UnavailJak Martin Consulting Unavailable Alfie Loyola Consulting Unavailable Danny Prescott Consulting Unavailable Jagruti Bunch Consulting Unavailable Renee Hernandez Consulting Unavailable Danyell Yang Consulting Unavailable Clemente Chao Consulting Unavailable Charles Carrington Consulting Unavailable Jesus Sheffield Consulting Unavailable Tyrell Vasquez Consulting Unavailable Kelly Mix Consulting Unavailable Fabiola Markham Consulting Unavailable Scooby Beasley Consulting Unavailable Varinder Medel Consulting Unavailable Leno Scherer Consulting Unavailable Eric Gutierrez Consulting Unavailable Eric Gutierrez Attending Unavailable Basil Hunter Referring Unavailable Park Newton Attending Unavailable Siddiqui, Zechariah Primary Care Unavailable Zechariah Plasencia Attending Unavailable Erinn, Zechariah Consulting Unavailable Adeline Rivera Attending Unavailable Basil Hunter Attending Unavailable Siddiqui, Zechariah Primary Care Unavailable Siddiqui, Zechariah Referring Unavailable Eric Buenrostro Attending Unavailable Siddiqui, Zechariah Primary Care Unavailable Basil Hunter Attending Unavailable Samuel Carreno Attending Unavailable Siddiqui, Zechariah Primary Care Unavailable Bianka Roberts Attending Unavailable Zhang Hester Attending Unavailable Zhang Hester Consulting Unavailable Siddiqui, Zechariah Primary Care Unavailable Kacie, Zhang Admitting Unavailable Delano Harris Attending Unavailable Montana Leone Attending Unavailable Delano Harris Referring Unavailable Basil Ramírez Attending Unavailable Erinn, Zechariah Referring Unavailable Basil Hunter Referring Unavailable Basil Hunter Attending Unavailable Zechariah Siddiqui Primary Care Unavailable Pedro BAY, Dr. Apple Primary Care Physician Dr. Basil Hunter MD Attending Physician Park Junior Attending Physician Allergies Allergy Classification Reported Allergen(s) Allergy Type Date of Onset Reaction(s) Facility (3 sources) Shellfish; Translations: [shellfish derived] Allergy to substance Nausea/Vom/Diar [facility] Medications Current Medications Medication Drug Class(es) Dates Sig (Normalized) Sig (Original) acetaminophen 325 mg oral tablet (17 sources) Start: 12-24-2024 End: 01-08-2025 take 650 mg by mouth every six hours as needed Start: 11-10-2020 End: 03-20-2023 take 1 tablet by mouth every four hours as needed for pain Acetaminophen 500 MG tablet Discontinued 500 mg PO EVERY 4 HOURS NEEDED as needed for Pain Score 1-5/10 0 November 10, 2020 12:00am March 20, 2023 11:54am albuterol 0.83 mg/ml inhalat ion solution (15 sources) beta2-Adrenergic Agonist Start: 12-13-2024 End: 01-08-2025 Start: 12-13-2024 Albuterol Sulf ate 2.5 mg /3 mL (0.083 %) solution for nebulization Active 1 INHALATION 3 TIMES DAILY NEEDED as needed for bronchospasm December 13, 2024 12:00am Start: 12-13-2024 End: 12-13-2024 Albuterol Sulfate 90 mcg/act uation HFA aerosol inhaler Discontinued INHALATION December 13, 2024 12:00am December 13, 2024 9:32pm SOB Start: 11-11-2024 take 2.5 mg by inhal ation three times daily as needed Albuterol Sulfate 2.5 mg /3 mL (0.083 %) solution for nebulization Active 2.5 mg INHALATION 3 TIMES DAILY NEEDED as needed for bronchospasm December 13, 2024 12:00am Complies with drug therapy amiodarone hydrochloride 200 mg oral tablet (14 sources) Antiarrhythmic Start: 03-03-2025 End: 03-07-2025 take 1 tablet by mouth once daily Amiodarone 200 mg tablet Active 200 mg PO daily 90 3 March 07, 2025 9:53am Complies with drug therapy Start: 01-08-2025 End: 01-07-2025 Start: 12-31-2024 End: 03-09-2025 Start: 12-24-2024 End: 12-31-2024 Start: 12-23-2024 End: 12-24-2024 apixaban 5 mg oral tablet (15 sources) Factor Xa Inhibitor Start: 03-20-2023 End: 01-08-2025 take 1 tablet by mouth twice daily Apixaban (Eliquis) 5 mg tablet Active 5 mg PO TWICE A DAY March 20, 2023 12:00am blood thinner Complies with drug therapy ascorbic acid 500 mg oral tablet (19 sources) Vitamin C Start: 05-05-2015 Ascorbic Acid (Vitamin C) 500 MG tablet Active 2 NMA PO DAILY May 05, 2015 12:00am general health Complies with drug therapy Start: 05-05-2015 take 2 g by mouth once daily A scorbic Acid (Vitamin C) Active 2 G PO DAILY May 05, 2015 12:00am Ascorbic Acid 10 0 mg tablet Take 2,000 mg by mouth once daily. 0 Active Comment on above: Take 2,000 mg by dilcia th once daily. calcium polycarbophil 625 mg oral tablet (2 sources) Start: End: dapagliflozin 10 mg oral tablet (7 sources) Sodium-Glucose Cotransporter 2 Inhibitor Start: take 1 tablet by mouth once daily Dapagliflozin Propanediol (Farxiga) 10 mg tablet Active 10 mg PO DAILY December 18, 2024 12:00am Heart failure Complies with drug therapy Drug or medicament (substance) (2 sources) 30 actuat fluticasone furoate 0.1 mg/actuat / umeclidinium 0.0625 mg/actuat / vilanterol 0.025 mg/actuat dry powder inhaler (20 sources) Anticholinergic, Corticosteroid, beta2-Adrenergic Agonist Start: take 1 puff(s) by inhalation once daily Trelegy Ellipta 100-62.5-25 MCG/ACT Aerosol Powder, breath activated inhaler Inhale 1 puff daily. 10/25/2024 Active Start: 10-25-2024 Start: 05-06-2022 take 1 puff(s) by in halation once daily TREKAREN ELLIPTA 100-62.5-25 mcg inhalation powder Inhale 1 Puff as instructed once daily. 0 05/06/2022 Active Start: 09-27-2020 Fluticasone-Um eclidin-Vilanter 100-62.5-25 mcg blister with device Active 1 NMA INHALATION DAILY September 27, 2020 4:55pm breathing Complies with drug therapy Start: 09-27-2020 Start: 09-27-2020 Start: 09-27-2020 Fluticasone-Um eclidin-Vilanter 100-62.5-25 mcg blister with device Active 1 NMA INHALATION DAILY September 27, 2020 4:55pm Start: 09-27-2020 Fluticasone-Um eclidin-Vilanter Active 1 EACH INHALATION DAILY September 27, 2020 4:55pm Start: 09-27-2020 Fluticasone-Um eclidin-Vilanter Active 1 EA INHALATION DAILY September 27, 2020 4:55pm Start: 09-15-2020 End: 09-27-2020 Start: 09-15-2020 End: 09-27-2020 take 1 dose by inhalation once daily Srtvgayqhoe-Azfdqulnp-Fgmzcidr 1 EACH blister with device Discontinued 1 NMA IH DAILY September 15, 2020 1:00am September 27, 2020 4:56pm Start: 09-15-2020 End: 09-27-2020 Nlirwagtfez-Xdsbfzjjt-Ghhlul er Discontinued 1 EACH IH DAILY September 15, 2020 1:00am September 27, 2020 4:56pm Comment on above: Inhale 1 Puff as ins tructed once daily. gabapentin 100 mg oral capsule (20 sources) Anti-epileptic Agent Start: take 2 capsules by mouth three times daily Gabapentin 100 mg capsule Active 200 mg PO THREE TIMES A DAY March 03, 2025 12:00am Complies with drug therapy Start: 12-24-2024 End: 01-08-2025 Start: 09-15-2020 End: 12-13-2024 take 1 tablet by mouth twice daily at mealtime Gabapentin 600 MG tablet Discontinued 600 mg PO TWICE DAILY WITH MEALS September 15, 2020 1:00am December 13, 2024 9:35pm take 1 tablet by dilcia th once daily gabapentin (NEURONTIN) 600 mg tablet Take 600 mg by mouth once daily. 0 Active Comment on above: Take 600 mg by mouth once daily. ipratropium bromide 0.021 mg/actuat metered dose nasal spray (9 sources) Anticholinergic Start: 12-13-2024 Ipratropium [place] 21 mcg (0.03 %) spray,non-aerosol Active 1 - 2 NMA INTRANASAL EVERY 6 HOURS NEEDED as needed for allergy symptoms December 13, 2024 12:00am Complies with drug therapy Start: 05-27-2024 End: 01-08-2025 loperamide hydrochloride 2 mg oral capsule (6 sources) Opioid Agonist Start: 03-03-2025 take 1 mg by mouth once daily as needed Loperamide 2 mg capsule Active mg PO DAILY as needed March 03, 2025 12:00am Complies with drug therapy Start: 01-07-2025 End: 01-07-2025 Turgehfq-Fni-Zw-Lycopen-Lute in (7 sources) Start: 05-05-2015 Cwogdugv-Aig-Hu-Lycopen-Lute in Active 1 EACH PO DAILY May 05, 2015 12:00am Start: 05-05-2015 Bhwmtvog-Psi-J e-Vsxpjyn-Btkvjr Active 1 EA PO DAILY May 05, 2015 12:00am microencapsulated potassium chloride 20 meq extended release oral tablet (8 sources) Start: 12-09-2024 Potassium Chlo ride (Klor-Con M20) 20 mEq tablet,ER particles/crystals Active 40 meq PO DAILY December 13, 2024 12:00am potassium Complies with drug therapy Start: 12-09-2024 rosuvastatin calcium 40 mg oral tablet (1 source) HMG-CoA Reductase Inhibitor Start: 05-06-2025 take 1 tablet by mouth once daily Rosuvastatin 40 mg tablet Active 40 mg PO daily 30 5 May 06, 2025 12:00am Complies with drug therapy sacubitril 24 mg / valsartan 26 mg oral tablet (9 sources) Angiotensin 2 Receptor Kleber Start: 12-13-2024 End: 10-13-2025 Sacubitril-Valsart an (Entresto) 24-26 mg tablet Active 1 {tbl} PO Q12 180 3 May 02, 2025 3:22pm heart Complies with drug therapy Start: 12-09-2024 Start: 12-09-2024 take 1 tablet by dilcia th every twelve hours sacubitril-valsartan 24-26 MG tablet Take 1 tablet by mouth every 12 hours. 60 tablet 3 12/09/2024 Active Completed/Discontinued Medications Medication Drug Class(es) Dates Sig (Normalized) Sig (Original) acetaminophen 325 mg / HYDROcodone bitartrate 5 mg oral tablet (15 sources) Opioid Agonist Start: 11-10-2020 End: 11-15-2020 Hydrocodone-Acetami nophen 1 TABLET tablet Discontinued 1 {tbl} PO EVERY 6 HOURS NEEDED as needed for Pain Score 6-10 10 5 0 November 10, 2020 November 14, 2020 12:00am November 15, 2020 12:03am Chronic ethmoidal sinusitis Chronic maxillary sinusitis Chronic ethmoidal sinusitis Chronic maxillary sinusitis Start: 11-10-2020 End: 11-15-2020 Start: 11-10-2020 End: 11-15-2020 take 1 tablet by mouth every six hours as needed Hydrocodone-Acetaminophen Discontinued 1 TABLET PO EVERY 6 HOURS NEEDED 10 5 November 10, 2020 November 15, 2020 12:03am aspirin 81 mg chewable tablet (3 sources) Platelet Aggregation Inhibitor, Nonsteroidal Anti-inflammatory Drug take 1 tablet by mouth once daily aspirin 81 mg chewable tablet Take 81 mg by mouth once daily. 0 Active Comment on above: Take 81 mg by mouth once daily. balsalazide disodium 750 mg oral capsule (8 sources) Aminosalicylate Start: 11-16-19 End: 03-03-20 take 1 capsule by mouth three times daily Balsalazide 750 mg capsule Discontinued 2250 mg PO THREE TIMES A DAY December 13, 2024 12:00am March 03, 2025 10:16am ULCERATIVE COLITIS Start: 11-15-2024 End: 03-03-2025 bisoprolol fumarate 10 mg / hydroCHLOROthiazide 6.25 mg oral tablet (18 sources) Thiazide Diuretic, beta-Adrenergic Kleber Start: 05-06-2022 take 1 tablet by mouth once daily bisoprolol-hydroCHLOROthiazide (ZIAC) 10-6.25 mg per tablet Take 1 tablet by mouth once daily. 0 05/06/2022 Active Start: 05-05-2015 End: 03-20-2023 Bisoprolol-Hydrochlorothiazi de 1 TAB tablet Discontinued 1 NMA PO DAILY May 05, 2015 12:00am March 20, 2023 11:54am Start: 05-05-2015 End: 03-20-2023 Start: 05-05-2015 End: 03-20-2023 take 1 tablet by mouth once daily Bisoprolol-Hydrochlorothiazide Discontin ued 1 TAB PO DAILY May 05, 2015 12:00am March 20, 2023 11:54am Comment on above: Take 1 tablet by dilcia th once daily. budesonide 3 mg delayed release oral capsule (3 sources) Corticosteroid Start: 12-23-2024 End: 12-30-2024 Start: 11-10-2024 End: 01-04-2025 take 3 capsules by mouth once daily budesonide [address] Particles capsule EC Take 3 capsules by mouth daily. 11/10/2024 01/04/2025 Discontinued (Stop Taking at Discharge) 120 actuat budesonide 0.16 mg/actuat / formoterol fumarate 0.0048 mg/actuat / glycopyrrolate 0.009 mg/actuat metered dose inhaler (1 source) Corticosteroid, beta2-Adrenergic Agonist Start: 01-04-2025 End: 01-08-2025 calcium chloride 0.0014 meq/ ml / potassium chloride 0.004 meq/ml / sodium chloride 0.103 meq/ml / sodium lactate 0.028 meq/ml injectable solution (10 sources) Start: 01-05-2025 End: 01-07-2025 Start: 12-28-2024 End: 12-28-2024 Start: 12-22-2024 End: 12-26-2024 cefepime 2000 mg injection (4 sources) Cephalosporin Antibacterial Start: 01-02-2025 End: 01-04-2025 take 2 g intravenously every eight hours Start: 12-29-2024 End: 12-30-2024 take 2 g intravenously every eight hours cefTRIAXone 2000 mg injection (1 source) Cephalosporin Antibacterial Start: 12-30-2024 End: 01-02-2025 take 2 g intravenously every twenty-four hours cholecalciferol 0.05 mg oral capsule (18 sources) Vitamin D Start: 09-15-2020 End: 12-13-2024 take 1 capsule by mouth once daily Cholecalciferol (Vitamin D3) 2,000 UNIT capsule Discontinued 2000 U PO DAILY September 15, 2020 1:00am December 13, 2024 9:33pm Comment on above: Take 50 capsules by mouth once daily. ciprofloxacin 500 mg oral tablet (1 source) Quinolone Antimicrobial Start: 01-04-2025 End: 01-07-2025 CPAP (3 sources) CPAP daily at bedtime. 0 Active Comment on above: daily at bedtime. cyclobenzaprine hydrochloride 10 mg oral tablet (1 source) Muscle Relaxant Start: 01-04-2025 End: 01-08-2025 1 ml diphenhydrAMINE hydrochloride 50 mg/ml cartridge (2 sources) Histamine-1 Receptor Antagonist Start: 12-28-2024 End: 12-28-2024 Start: 12-23-2024 End: 12-24-2024 take 25 mg intravenously every six hours as needed dofetilide 0.25 mg oral capsule (8 sources) Antiarrhythmic Start: 12-09-2024 End: 03-03-2025 take 1 capsule by mouth every twelve hours Dofetilide 250 mcg capsule Discontinued 250 ug PO Q12H December 13, 2024 12:00am March 03, 2025 10:16am heart FOLIC ACID/MULTIVIT-MIN/ LUTEIN (CENTRUM SILVER ORAL) (3 sources) FOLIC ACID/MULTIVIT-MIN/L UTEIN (CENTRUM SILVER ORAL) Take by mouth. 0 Active Comment on above: Take by mouth. furosemide 40 mg oral tablet (9 sources) Loop Diuretic Start: 05-06-2025 take 1 tablet by mouth once Furosemide 40 mg tablet Discontinued 40 mg PO ONCE May 06, 2025 2:02pm diuretic Start: 12-09-2024 End: 05-06-2025 take 1 tablet by mouth twice daily Furosemide 40 mg tablet Discontinued 40 mg PO TWICE A DAY 180 3 May 02, 2025 3:22pm May 06, 2025 2:03pm diuretic 1000 ml glucose 100 mg/ml injection (1 source) Start: 12-24-2024 End: 01-08-2025 250 ml glucose 50 mg/ml / sodium chloride 4.5 mg/ml injection (1 source) Start: 12-23-2024 End: 12-24-2024 250 ml heparin sodium, porcine 100 unt/ml injection (1 source) Unfractionated Heparin, Anti-coagulant Start: 12-23-2024 End: 01-03-2025 hydroCHLOROthiazide 12.5 mg oral tablet (12 sources) Thiazide Diuretic Start: 03-20-2023 End: 12-13-2024 Hydrochlorothiazide 12.5 mg tablet Discontinued mg PO March 20, 2023 12:00am December 13, 2024 9:35pm Start: 03-20-2023 End: 12-13-2024 Start: 03-20-2023 Hydrochlorothi azide Active MG PO March 20, 2023 12:00am 1 ml HYDROmorphone hydrochloride 1 mg/ml cartridge (1 source) Opioid Agonist Start: 12-27-2024 End: 01-02-2025 take 0.5 mg intravenously every four hours as needed ibuprofen 200 mg oral tablet (15 sources) Nonsteroidal Anti-inflammatory Drug Start: 11-10-2020 End: 03-20-2023 take 2 tablets by mouth every six hours as needed for pain Ibuprofen 200 MG tablet Discontinued 400 mg PO EVERY 6 HOURS NEEDED as needed for Pain Score 4-10/10 0 November 10, 2020 12:00am March 20, 2023 11:55am Start: 11-10-2020 End: 03-20-2023 take 400 mg by mouth every six hours as needed Ibuprofen Discontinued 400 MG PO EVERY 6 HOURS NEEDED November 10, 2020 12:00am March 20, 2023 11:55am lidocaine 0.04 mg/mg medicated patch (1 source) Antiarrhythmic, Amide Local Anesthetic Start: 01-02-2025 End: 01-08-2025 50 ml magnesium sulfate 80 mg/ml injection (4 sources) Start: 01-03-2025 End: 01-03-2025 Start: 01-02-2025 End: 01-02-2025 Start: 12-24-2024 End: 12-31-2024 MEDICATION, NON-DATABASE (3 sources) take 1 tablet by mouth once daily MEDICATION, NON-DATABASE Take 1 tablet by mouth once daily. Pt states takes a BP med daily-unsure name 0 Active Comment on above: Take 1 tablet by dilcia th once daily. Pt states takes a BP med daily-unsure name 24 hr metoprolol succinate 25 mg extended release oral tablet (20 sources) beta-Adrenergic Kleber Start: take 2 tablets by mouth every twenty-four hours Metoprolol Succinate 25 mg tablet extended release 24 hr Discontinued 12.5 mg PO ONCE May 06, 2025 2:03pm Start: 03-03-2025 End: 05-06-2025 take 1 tablet by mouth twice daily Metoprolol Succinate 25 mg tablet extended release 24 hr Discontinued 25 mg PO TWICE A DAY March 03, 2025 12:00am May 06, 2025 2:03pm Start: 01-05-2025 End: 01-08-2025 Start: 12-31-2024 End: 01-05-2025 Start: 12-28-2024 End: 01-08-2025 Start: 12-28-2024 End: 12-28-2024 Start: 12-28-2024 End: 12-29-2024 Start: 12-23-2024 End: 12-24-2024 Start: 12-23-2024 End: 12-23-2024 Start: 12-23-2024 End: 12-23-2024 Start: 12-09-2024 End: 03-03-2025 take 1 tablet by mouth every twelve hours Metoprolol Succinate 50 mg tablet extended release 24 hr Discontinued 50 mg PO Q12H December 13, 2024 12:00am March 03, 2025 10:17am blood pressure Start: 03-20-2023 End: 12-13-2024 Metoprolol Tartrate 100 mg t ablet Discontinued mg PO March 20, 2023 12:00am December 13, 2024 9:36pm Start: 03-20-2023 End: 12-13-2024 Start: 03-20-2023 Metoprolol Tar trate Active MG PO March 20, 2023 12:00am metroNIDAZOLE 500 mg oral ta blet (2 sources) Nitroimidazole Antimicrobial Start: 01-04-2025 End: 01-07-2025 Start: 12-29-2024 End: 01-02-2025 Xgtdlnbc-Nyv-Rw-Lycopen-Lute in 1 EACH tablet (6 sources) Start: 05-05-2015 End: 12-13-2024 Yxjptpqd-Hpx-Kb-Lycopen-Lute in 1 EACH tablet Discontinued 1 NMA PO DAILY May 05, 2015 12:00am December 13, 2024 9:36pm Start: 05-05-2015 Vyoonlfe-Brg-O n-Lnceqka-Hyhzrm 1 EACH tablet Active 1 NMA PO DAILY May 05, 2015 12:00am oxyCODONE hydrochloride 5 mg oral tablet (2 sources) Opioid Agonist Start: 12-24-2024 End: 01-08-2025 take 5 mg by mouth every four hours as needed pantoprazole 40 mg delayed release oral tablet (2 sources) Proton Pump Inhibitor Start: 12-31-2024 End: 01-08-2025 Start: 12-30-2024 End: 12-31-2024 piperacillin 4000 mg / tazobactam 500 mg injection (1 source) Penicillin-class Antibacterial, beta Lactamase Inhibitor Start: 12-23-2024 End: 12-28-2024 PNV/iron/folic acid ( WOEERES-AZHL-IZ ORAL) (3 sources) take 1 tablet by mouth once daily PNV/iron/folic acid ( PIZZZVI-IWON-MN ORAL) Take 1 tablet by mouth once daily. 0 Active Comment on above: Take 1 tablet by dilcia th once daily. polyethylene glycol 3350 936973 mg / potassium chloride 2970 mg / sodium bicarbonate 6740 mg / sodium chloride 5860 mg / sodium sulfate 08815 mg powder for oral solution (1 source) Osmotic Laxative Start: 05-24-2022 End: 05-24-2022 peg 3350-Electrolytes (GOLYTELY) 236-22.74-6.74 -5.86 gram suspension Indications: History of colonic polyps Take 4,000 mL by mouth one time only for 1 dose. Refer to printed prep instructions from your provider. 4000 mL 0 05/24/2022 05/24/2022 Comment on above: Take 4,000 mL by dilcia th one time only for 1 dose. Refer to printed prep instructions from your provider. potassium citrate 15 meq extended release oral tablet (6 sources) Start: 12-13-2024 End: 12-13-2024 Potassium Citrate 15 mEq tablet extended release Discontinued meq PO December 13, 2024 12:00am December 13, 2024 9:36pm potassium Start: 12-13-2024 End: 12-13-2024 predniSONE 10 mg oral tablet (3 sources) Start: 11-10-2024 End: 12-30-2024 20 ml sodium chloride 9 mg/m l injection (4 sources) Start: 01-07-2025 End: 01-07-2025 Start: 12-29-2024 End: 12-29-2024 Start: 12-22-2024 End: 01-08-2025 spironolactone 25 mg oral tablet (8 sources) Aldosterone Antagonist Start: 12-10-2024 End: 05-06-2025 take 1 tablet by mouth once daily Spironolactone 25 mg tablet Discontinued 25 mg PO DAILY December 13, 2024 12:00am May 06, 2025 2:02pm diuretic sulfaSALAzine 500 mg oral tablet (19 sources) Aminosalicylate Start: 12-23-2024 End: 12-23-2024 Start: 09-15-2020 End: 12-13-2024 take 1 tablet by mouth twice daily Sulfasalazine 500 MG tablet Discontinued 1000 mg PO TWICE A DAY September 15, 2020 1:00am December 13, 2024 9:37pm IBS Start: 09-15-2020 take 1000 mg by mout h twice daily Sulfasalazine Active 1000 MG PO TWICE A DAY September 15, 2020 1:00am Start: 07-02-2016 take 1 tablet by dilcia th four times daily sulfaSALAzine (AZULFIDINE) 500 mg tablet Take 1 tablet by mouth four times daily. 120 tablet 11 07/02/2016 Active Comment on above: Take 1 tablet by dilcia th four times daily. thiamine hydrochloride 100 m g/ml injectable solution (1 source) Start: 12-25-2024 End: 12-31-2024 tiZANidine 4 mg oral tablet (1 source) Central alpha-2 Adrenergic Agonist Start: 01-02-2025 End: 01-04-2025 (20 sources) Start: 01-04-2025 End: 01-05-2025 Start: 01-03-2025 End: 01-04-2025 Start: 01-03-2025 End: 01-03-2025 Start: 01-02-2025 End: 01-03-2025 Start: 01-01-2025 End: 01-02-2025 Start: 12-31-2024 End: 01-01-2025 Start: 12-30-2024 End: 12-31-2024 Start: 12-29-2024 End: 12-30-2024 Start: 12-29-2024 End: 12-29-2024 Start: 12-28-2024 End: 12-28-2024 Start: 12-28-2024 End: 12-29-2024 Start: 12-28-2024 End: 12-28-2024 Start: 12-28-2024 End: 12-28-2024 Start: 12-27-2024 End: 12-28-2024 Start: 12-26-2024 End: 12-27-2024 Start: 12-25-2024 End: 12-26-2024 Start: 12-24-2024 End: 12-25-2024 Start: 12-24-2024 End: 12-24-2024 Start: 12-24-2024 End: 01-08-2025 take 10 mg intravenously every four hours as needed [Order 1 Start] Name: Prochlorperazine (COMPAZINE) injection 10 mg Signed Summary: 10 mg, Intravenous, EVERY 4 HOURS NEEDED, Starting on Fri12/24/24 at 0831, Until 01/08/25 at 0054, Nausea / Vomiting, 2nd line, Maximum 40mg/day. For IV route: Give undiluted by slow IV push at a rate of 5 mg/min. [Order 1 End] [Order 2 Start] Name: Prochlorperazine (COMPAZINE) tablet 10 mg Signed Summary: 10 mg, Oral, EVERY 4 HOURS NEEDED, Starting on Fri12/24/24 at 0831, Until 01/08/25 at 0054, Nausea / Vomiting, 2nd line, Max dose 40 mg/day. [Order 2 End] Start: 12-24-2024 End: 01-08-2025 [Order 1 Start] Name: Naloxo ne (NARCAN) injection 0.1 mg Signed Summary: 0.1 mg, Intravenous, SEE ADMIN INSTRUCTIONS, Starting on Fri12/24/24 at 0831, Until 01/08/25 at 0054, If RR 8/min and/or drowsiness abates. Contact provider. If no response is noted after 2 doses, consider other causes of respiratory depression. [Order 1 End] [Order 2 Start] Name: Naloxone (NARCAN) injection 0.4 mg Signed Summary: 0.4 mg, Intravenous, SEE ADMIN INSTRUCTIONS, Starting on Fri12/24/24 at 0831, Until Fri01/08/25 at 0054, If patient APNEIC and difficult to arouse: Give naloxone 0.4 mg q2 minutes until RR> 8/min and call a 'code blue'. If no response is noted after 2 doses, consider other causes of respiratory depression. [Order 2 End] Start: 12-24-2024 End: 12-24-2024 Start: 12-24-2024 End: 01-08-2025 apply 7.5 g by subcutaneous injection once [Order 1 Start] Name: Insulin regular (HUMULIN R;NOVOLIN R) injection Signed Summary: Subcutaneous, EVERY 6 HOURS, First dose on Fri12/24/24 at 0600, Until Discontinued, Correction factor parameters most appropriate for NPO or tube feeding patients: Blood glucose under 60 = call H.O.; 151 - 200 = 2 units; 201 - 250 = 4 units; 251 - 300 = 6 units; 301 - 350 = 8 units; 351 - 400 = 10 units; Over 400 = call H.O. An initial vial will be sent from the pharmacy without prompting. Replacement vials require a MAR request when needed. Call pharmacy to coordinate expedited delivery if an emergent dose is needed for hyperglycemia treatment. [Order 1 End] [Order 2 Start] Name: BLOOD GLUCOSE (POC DEVICE) Signed Summary: Routine, EVERY 6 HOURS, First occurrence on Fri12/24/24 at 0600, If any Blood Glucose (POC) is greater than 300mg/dl, then repeat Blood Glucose (POC) in 2 hours. If the initial blood glucose was greater than 300mg/dl and if second blood glucose is greater than 200mg/dl, then notify Second Rigger. [Order 2 End] [Order 3 Start] Name: BLOOD GLUCOSE (POC DEVICE) UDPRN Signed Summary: Routine, PRN, Starting on Fri12/24/24 at 0355, Until Specified, For all Blood Glucose LESS THAN 80 mg/dL, treat per Hypoglycemia in Non- Adults Clinical Practice Guideline (CPG) and recheck glucose 15 min after treatment. Repeat per CPG until glucose GREATER THAN 80 mg/dL. Once glucose IS GREATER THAN 80 mg/dL, recheck Blood Glucose every 1 hour x2, then resume as previously ordered. For Blood Glucose LESS THAN 80 mg/dL on admission OR LESS than 45 mg/dL at any time, obtain POC Blood Glucose every 4 hours for 6 occurrences AFTER treating per CPG. Obtain blood glucose for symptoms of hypoglycemia: sweating, shaking, fatigue, rapid pulse, slow thinking & dizziness. Notify physician w/results. Obtain blood glucose for symptoms of hyperglycemia: excessive thirst, blurred vision, excessive urination & tiredness. Notify physician w/results. If patient NPO, obtain POC Blood Glucose prior to administration of any insulin products. [Order 3 End] [Order 4 Start] Name: COMMUNICATION ORDER FOR NURSING CARE: For Blood Glucose LESS THAN 80 mg/dl Signed Summary: Routine, CONTINUOUS, Starting on Fri12/24/24 at 0356, Until Specified, For Blood Glucose LESS THAN 80 mg/dl, follow Hypoglycemia in Non- Adults Clinical Practice Guideline (CPG) [Order 4 End] [Order 5 Start] Name: Dextrose 50% injection 7.5-25 g Signed Summary: 7.5-25 g, Intravenous, ADMINISTER DIRECTED, Starting on Fri12/24/24 at 0355, Until 01/08/25 at 0054, Blood glucose <80 mg/dL, For patients who are not alert, are NPO, or are on IV insulin infusion administer as directed per Hypoglycemia in Non- Adults Clinical Practice Guideline. For Blood Glucose: 60-79 mg/dL administer 7.5 gm (15ml); 45-59 mg/dL administer 12.5 gm (25ml); less than 45mg/dL administer 25gm (50ml). ++ If additional dextrose 50% needed, contact pharmacy or obtain from [facility] cart ++ [Order 5 End] [Order 6 Start] Name: glucose (GLUTOSE) 40 % oral gel 1-2 Tube Signed Summary: 1-2 Tube, Oral, ADMINISTER DIRECTED, Starting on Fri12/24/24 at 0355, Until 01/08/25 at 0054, Blood glucose <80 mg/dL, For patients who are alert, able to tolerate PO intake and with intact cognitive status administer as directed per Hypoglycemia in Non- Adults Clinical Practice Guideline. For Blood Glucose: 60-79 mg/dL administer 1 tube; 45-59 mg/dl administer 1.5 tubes; less than 45 mg/dL administer 2 tubes. Each tube of 37.5g delivers 15g of carbohydrate. [Order 6 End] [Order 7 Start] Name: NOTIFY PHYSICIAN, Blood Glucose LESS THAN 80 mg/dl Signed Summary: Routine, CONTINUOUS, Starting on Fri12/24/24 at 0356, Until Specified, Who to Notify: Second Rigger, For all Blood Glucose LESS THAN 80 mg/dl, notify Second Rigger after treatment per Hypoglycemia in Non- Adults Clinical Practice Guideline [Order 7 End] Start: 12-24-2024 End: 12-24-2024 Start: 12-23-2024 End: 12-23-2024 Start: 12-22-2024 End: 01-08-2025 take 4 mg intravenously every six hours as needed [Order 1 Start] Name: Ondansetron 4mg/2ml (ZOFRAN) injection 4 mg Signed Summary: 4 mg, Intravenous, EVERY 6 HOURS NEEDED, Starting on Fri12/22/24 at 2326, Until 01/08/25 at 0054, Nausea / Vomiting [Order 1 End] [Order 2 Start] Name: Ondansetron (ZOFRAN) tablet 4 mg Signed Summary: 4 mg, Oral, EVERY 6 HOURS NEEDED, Starting on Fri12/22/24 at 2326, Until 01/08/25 at 0054, Nausea / Vomiting [Order 2 End] Start: 05-05-2015 End: 12-13-2024 (2 sources) Start: 01-07-2025 End: 01-07-2025 Start: 12-29-2024 End: 12-29-2024 (1 source) Start: 12-24-2024 End: 12-25-2024 take 250 mL intravenously every twenty-four hours (1 source) Start: 12-24-2024 End: 12-26-2024 Problems Active Problems Problem Classification Problem Date Documented Da te Episodic/Chronic Cardiac dysrhythmias (20 sources) Paroxysmal atrial fibrillation; Translations: [Paroxysmal atrial fibrillation] Onset: 12-07-2024 03-20-2023 Chronic Chronic obstructive pulmonary disease and bronchiectasis (3 sources) Chronic obstructive lung disease; Translations: [Chronic obstructive pulmonary disease, unspecified] Onset: 11-16-2024 12-08-2024 Chronic Conduction disorders (20 sources) Left bundle branch block; Translations: [Left bundle-branch block, unspecified] Onset: 01-11-2025 09-26-2020 Chronic Congestive heart failure; nonhypertensive (11 sources) Heart failure with reduced ejection fraction; Translations: [Unspecified systolic (congestive) heart failure] Onset: 12-04-2024 12-08-2024 Chronic Diverticulosis and diverticulitis (20 sources) Diverticulitis; Translations: [Diverticulitis of intestine, part unspecified, without perforation or abscess without bleeding] Onset: 12-22-2024 12-13-2024 Chronic Essential hypertension (20 sources) Essential hypertension; Translations: [Essential (primary) hypertension] Onset: 12-07-2024 11-10-2020 Chronic Noninfectious gastroenteritis (1 source) Idiopathic colitis; Translations: [Noninfective gastroenteritis and colitis, unspecified] Episodic Occlusion or stenosis of precerebral arteries (4 sources) Bilateral stenosis of carotid arteries; Translations: [Occlusion and stenosis of bilateral carotid arteries] 03-29-2025 Chronic Other aftercare (11 sources) Long-term current use of anticoagulant; Translations: [patient flow coordinator (current) use of anticoagulants] 12-13-2024 Episodic Other aftercare (2 sources) Taking high risk medication; Translations: [Other opera singer (current) drug therapy] Onset: 12-07-2024 12-08-2024 Episodic Other aftercare (2 sources) Patient encounter status; Translations: [Encounter for therapeutic drug level monitoring] Onset: 12-08-2024 12-08-2024 Episodic Other aftercare (2 sources) Other opera singer (current) drug therapy; Translations: [Other opera singer (current) drug therapy] Onset: 12-07-2024 Episodic Other and ill-defined heart disease (9 sources) Left ventricular cardiac dysfunction; Translations: [Heart disease, unspecified] 12-20-2024 Chronic Other and ill-defined heart disease (1 source) Heart disease, unspecified; Translations: [Heart disease, unspecified] Onset: 01-11-2025 Chronic Other and unspecified benign neoplasm (7 sources) Benign neoplasm of skin of head and neck; Translations: [Benign lipomatous neoplasm of skin and subcutaneous tissue of head, face and neck] 11-10-2020 Episodic Other and unspecified benign neoplasm (15 sources) Benign neoplasm of maxillary sinus; Translations: [Benign neoplasm of middle ear, nasal cavity and accessory sinuses] 09-26-2020 Episodic Other and unspecified benign neoplasm (2 sources) History of polyp of colon; Translations: [Personal history of colonic polyps] Episodic Other and unspecified benign neoplasm (1 source) Personal history of colonic polyps; Translations: [History of colonic polyps] Onset: 07-26-2022 Episodic Other and unspecified benign neoplasm (8 sources) Lipoma of head and neck; Translations: [Benign lipomatous neoplasm of skin and subcutaneous tissue of head, face and neck] 11-10-2020 Episodic Other circulatory disease (6 sources) Carotid bruit; Translations: [Other specified symptoms and signs involving the circulatory and respiratory systems] 03-03-2025 Episodic Other circulatory disease (1 source) Other specified symptoms and signs involving the circulatory and respiratory systems; Translations: [Other specified symptoms and signs involving the circulatory and respiratory systems] Onset: 04-12-2025 Episodic Other gastrointestinal disorders (3 sources) Perforation of colon; Translations: [Perforation of intestine (nontraumatic)] Onset: 12-24-2024 01-04-2025 Episodic Other gastrointestinal disorders (2 sources) Perforation of intestine (nontraumatic); Translations: [Perforation of intestine (nontraumatic)] Onset: 12-22-2024 Episodic Other infections; including parasitic (1 source) Disorder due to infection; Translations: [Unspecified infectious disease] 01-04-2025 Episodic Other infections; including parasitic (2 sources) Unspecified infectious disease; Translations: [Unspecified infectious disease] Onset: 12-22-2024 Episodic Other non-epithelial cancer of skin (15 sources) Basal cell carcinoma of face; Translations: [Basal cell carcinoma of skin of unspecified parts of face] 11-10-2020 Episodic Other upper respiratory disease (15 sources) Polyp of nasal cavity; Translations: [Polyp of nasal cavity] 11-10-2020 Episodic Other upper respiratory infections (20 sources) Chronic maxillary sinusitis; Translations: [Chronic maxillary sinusitis] 11-10-2020 Chronic Phlebitis; thrombophlebitis and thromboembolism (9 sources) Thrombosis of vein of upper limb; Translations: [Acute embolism and thrombosis of superficial veins of unspecified upper extremity] 12-22-2024 Episodic Regional enteritis and ulcerative colitis (7 sources) Ulcerative pancolitis; Translations: [Ulcerative (chronic) pancolitis without complications] Onset: 08-30-2024 Chronic Residual codes; unclassified (1 source) Family history of cancer of colon; Translations: [Family history of malignant neoplasm of digestive organs] Episodic Residual codes; unclassified (2 sources) Acquired absence of other specified parts of digestive tract; Translations: [Acquired absence of other specified parts of digestive tract] Onset: 01-26-2025 Episodic Residual codes; unclassified (1 source) Localized edema; Translations: [Localized edema] Onset: 04-19-2025 Episodic Past or Other Problems Problem Classification Problem Date Documented Da te Episodic/Chronic Abdominal pain (12 sources) Abdominal pain; Translations: [Unspecified abdominal pain] Onset: 5 12-13-2024 Episodic Other aftercare (1 source) patient flow coordinator (current) use of anticoagulants; Translations: [patient flow coordinator (current) use of anticoagulants] Onset: 5 Episodic Other gastrointestinal disorders (1 source) Diarrhea, unspecified; Translations: [Diarrhea, unspecified] Onset: 5 Episodic Other screening for suspected conditions (not mental disorders or infectious disease) (20 sources) Electrocardiogram abnormal; Translations: [Abnormal electrocardiogram [ECG] [EKG]] Onset: 3 09-26-2020 Episodic Results Test Name Value Interpretation Reference Range Facility MR/[facility] 05-05-2025 MR/BMS.BVS Normal [facility] Echo Limited w/Contraston Echo Limited w/Contrast Normal [facility] Limited echocardiogram repor tOrdered By: Eric Buenrostro on 04-06-2025 Study report [facility] [address] [place] [address] Echo Limited w/Contrast 04/06/25 1046 MR#: [id number] Acct: [id number] Name: CONRAD OCONNELL Rep #:[id number] : 1955 [id number] From: Eric Montejo Attending Dr: Dr. Basil Hunter MD Status: REG CLI Ordering Dr: Basil Hunter MD Date: 04/06/25 Location: [facility] Sex: M C Admitted: Reason For Study Reason For Study: AFib/Flutter Procedure This was a limited 2D transthoracic echocardiogram. Contrast injection was performed. Exam performed in department. Left Ventricle Normal LV size. Left ventricular systolic function is normal. The estimated ejection fraction is 53 %. No regional wall motion abnormalities noted. Right Ventricle Normal RV size. Normal systolic function. Atria Normal left atrium. Normal right atrium. Mitral Valve Normal mitral valve. Tricuspid Valve Normal tricuspid valve. Aortic Valve The aortic valve is not well visualized. Great Vessels Normal aortic root. Pericardium/Pleural No pericardial effusion. Medication 22 gauge I.V. with prn adaptor inserted into right arm. Diluted definity 1ml given slow IV push to enhance endocardial definition. MMode/2D Measurements & Calculations LVIDd: 4.5 cm IVSd: 0.97 cm LAV(MOD-bp): 65.8 ml LVIDs: 3.6 cm LVPWd: 1.2 cm LAV(MOD-bp) Indexed: 30.8 ml/m2 FS: 18.6 % LAV(MOD-sp2): 78.5 ml LAV(MOD-sp4): 54.9 ml SV(MOD-sp4): 73.5 ml LVAd ap4: 41.3 cm2 LVAd ap2: 42.1 cm2 LVLd ap4: 9.3 cm LVLd ap2: 9.0 cm SI(MOD-sp4): 34.4 ml/m2 EDV(MOD-sp4): 149.3 ml EDV(MOD-sp2): 163.1 ml EDV(sp4-el): 156.1 ml EDV(sp2-el): 167.0 ml LVAs ap4: 26.5 cm2 LVAs ap2: 26.9 cm2 LVLs ap4: 7.7 cm LVLs ap2: 7.8 cm ESV(MOD-sp4): 75.8 ml ESV(MOD-sp2): 74.6 ml ESV(sp4-el): 77.8 ml ESV(sp2-el): 78.4 ml EF(MOD-sp4): 49.2 % EF(MOD-sp2): 54.2 % EF(sp4-el): 50.2 % SV(MOD-sp2): 88.4 ml SV(sp4-el): 78.4 ml LA A4 area: 20.1 cm2 SI(MOD-sp2): 41.4 ml/m2 RA A4 area: 18.6 cm2 ECHO/Echo Limited w/Contrast Interpretation Summary Normal LV size. Left ventricular systolic function is normal. The estimated ejection fraction is 53 %. Contrast injection was performed. Structurally normal valves. Ordering Physician: Basil Hunter Referring Physician: Basil Hunter Performed By: Michael Wagner RCS 04/06/25 1135 Date _ Eric Buenrostro MD CC: Dr. Zechariah Siddiqui MD; Dr. Basil Hunter MD ~ Date Dictated: 04/06/25 1046 Date Transcribed: 04/06/25 113 Physician Anesthesiologist: Signed [facility] Work Phone: Carotid Duplex Ultrasoundon 03-28-2025 Carotid Duplex Ultrasound Normal [facility] Duplex ultrasound of carotid artery reportOrdered By: Zechariah Kline on 03-28-2025 Study report [facility] [address] [place] [address] Carotid Duplex Ultrasound 03/28/25 1005 MR#: [id number] Acct: [id number] Name: CONRAD OCONNELL Rep #:[id number] : 1955 69 From: Zechariah Montejo Attending Dr: Dr. Basil Hunter MD Status: REG CLI Ordering Dr: Basil Hunter MD Date: 03/28/25 Location: [facility] Sex: M C Admitted: Reason For Study Reason For Study: Bilateral Carotid Bruits Rt. Velocities/BP Lt. Velocities/BP Prox CCA 123.4/30.1 cm/sec. Prox CCA 157.8/28.3 cm/sec. Mid CCA 177.8/30.1 cm/sec. Mid CCA 176.0/30.8 cm/sec. Dist CCA 221.9/35.2 cm/sec. Dist CCA 165.6/28.3 cm/sec. Prox ICA 171.0/32.0 cm/sec. Prox ICA 223.2/42.8 cm/sec. Mid ICA 224.5/43.0 cm/sec. Mid ICA 142.3/33.4 cm/sec. Dist ICA 78.5/17.1 cm/sec. Dist ICA 113.8/33.4 cm/sec. Rt. ICA/CCA = 1.3. Lt. ICA/CCA = 1.3. Prox ECA 159.7/14.5 cm/sec. Prox ECA 235.0/19.2 cm/sec. Rt. Vert. 41.6/13.4 cm/sec. Lt. Vert. 91.1/27.2 cm/sec. Right Extracranial There is heterogeneous, irregular atherosclerotic plaque noted in the right common carotid artery. There is heterogeneous, irregular atherosclerotic plaque noted in the right internal carotid artery. There is heterogeneous, irregular atherosclerotic plaque noted in the right external carotid artery. Antegrade flow is noted in the right vertebral artery. Left Extracranial There is heterogeneous, irregular atherosclerotic plaque noted in the left common carotid artery. There is heterogeneous, irregular atherosclerotic plaque noted in the left internal carotid artery. There is heterogeneous, irregular atherosclerotic plaque noted in the left external carotid artery. Abnormal waveform morphology noted. Procedure Carotid Duplex 61655. This is a Carotid Duplex examination using B-mode, color flow and specral Doppler. The exam was diagnostic. Exam performed in department. VL/Carotid Duplex Ultrasound Interpretation Summary Moderate (50-69%) stenosis right extracranial internal carotid. Moderate (50-69%) stenosis left extracranial internal carotid. Patent and antegrade vertebrals bilaterally. Abnormal waveforms bilateral. Ordering Physician: Basil Hunter Referring Physician: Zechariah Siddiqui Performed By: Roger Shearer RVT and Student 03/28/25 1403 Date _ Zechariah Kline MD CC: Dr. Zechariah Siddiqui MD; Dr. Basil Hunter MD ~ Date Dictated: 03/28/25 1005 Date Transcribed: 03/28/25 140 Physician Anesthesiologist: Signed [facility] Work Phone: Cardiology Visit Reporton Cardiology Visit Report Normal [facility] GLUCOSE POCon 01-08-2025 Glucose [Mass/Vol] 80 mg/dL 70 - 179 mg/dL [facility] POC Sample Type CAPBL [facility] CARDIAC RHYTHMon 01-07-2025 [facility] CBC,PLATELETSon 01-07-2025 Erythrocyte distribution width (RBC) [Ratio] 19.6 % High 10.9 - 14.3 % [facility] Hematocrit (Bld) [Volume fraction] 27.8 % Low 39.6 - 48.8 % [facility] Hemoglobin (Bld) [Mass/Vol] 8.1 g/dL Low 13.4 - 16.8 g/dL [facility] Interpretation and review of laboratory results Abnormal [facility] MCH (RBC) [Entitic mass] 23.8 pg Low 26. 1 - 33.[address] [facility] MCHC (RBC) [Mass/Vol] 29.1 g/dL Low 31.9 - 36.5 g/dL [facility] MCV (RBC) [Entitic vol] 81.8 fL 79.0 - 94.[address] [facility] Platelet mean volume (Bld) [Entitic vol] 10.3 fL 8.7 - 12.[address] [facility] Platelets (Bld) [#/Vol] 454 10*3/uL High 146 - 337 K/uL [facility] RBC (Bld) [#/Vol] 3.4 10*6/uL Low [facility] WBC (Bld) [#/Vol] 8.69 10*3/uL 3.73 - 10. 10 K/uL [facility] Hematocrit (Bld) [Volume fraction] 27.8 % Low 39.6-48.[address] [facility] Comment on above: Performed By: #### X M #### [facility] (DEFAULT) [address] [place] [address] Hemoglobin (Bld) [Mass/Vol] 8.1 g/dL Low 13.4-16.[address] [facility] Comment on above: Performed By: #### X M #### [facility] (DEFAULT) [address] [address] MCV (RBC) [Entitic vol] 81.8 fL Normal 79.0-94.[address] [facility] Comment on above: Performed By: #### X M #### [facility] (DEFAULT) [address] [address] Mean Cell Hgb 23.8 pg Low 26.1-33.[address] [facility] Comment on above: Performed By: #### X M #### [facility] (DEFAULT) [address] [address] Mean Cell Hgb Conc 29.1 g/dL Low 31.9-36.5 [facility] Comment on above: Performed By: #### X M #### [facility] (DEFAULT) [address] [address] Platelet mean volume (Bld) [Entitic vol] 10.3 fL Normal 8.7-12.[address] [facility] Comment on above: Performed By: #### X M #### [facility] (DEFAULT) [address] [address] Platelets (Bld) [#/Vol] 454 10*3/uL High 146-[address] [facility] Comment on above: Performed By: #### X M #### [facility] (DEFAULT) [address] [address] RBC (Bld) [#/Vol] 3.40 10*6/uL Low 4.38-5.[address] [facility] Comment on above: Performed By: #### X M #### [facility] (DEFAULT) [address] [address] RBC Distribution 19.6 % High 10.9-14.3 [facility] Comment on above: Performed By: #### X M #### [facility] (DEFAULT) [address] [place] [address] WBC (Bld) [#/Vol] 8.69 10*3/uL Normal 3.73-10.[address] [facility] Comment on above: Performed By: #### X M #### [facility] (DEFAULT) [address] [place] [address] CHEM 7 (LYTES,BUN,CREA,GLUC) on 01-07-2025 Anion gap [Moles/Vol] 11 mmol/L 7 - 17 mmol/L [facility] Chloride [Moles/Vol] 109 mmol/L High 98 - 10 8 mmol/L [facility] CO2 [Moles/Vol] 23 mmol/L 21 - 31 mmol/L [facility] Creatinine [Mass/Vol] 0.88 mg/dL 0.70 - 1.30 mg/dL [facility] eGFR, CKD-EPI, Male - PINF [facility] Glucose [Mass/Vol] 93 mg/dL 70 - 179 mg/dL [facility] Interpretation and review of laboratory results Abnormal [facility] Osmolality Calc [Osmolality] 294 [facility] Potassium [Moles/Vol] 4.2 mmol/L 3.5 - 5.0 mmol/L [facility] Sodium [Moles/Vol] 139 mmol/L 135 - 145 mmol/L [facility] Urea nitrogen [Mass/Vol] 22 mg/dL 7 - 25 mg/d L [facility] Urea nitrogen/Creatinine [Mass ratio] 25 mg/mg [facility] Anion gap [Moles/Vol] 11 mmol/L Normal 7-17 [facility] Comment on above: Performed By: #### T RXN, TRXNP #### [facility] (DEFAULT) [address] [place] [address] Chloride [Moles/Vol] 109 mmol/L High 98-[address] [facility] Comment on above: Performed By: #### T RXN, TRXNP #### [facility] (DEFAULT) [address] [place] [address] CO2 [Moles/Vol] 23 mmol/L Normal 21-31 [facility] Comment on above: Performed By: #### T RXN, TRXNP #### [facility] (DEFAULT) [address] [place] [address] Creatinine [Mass/Vol] 0.88 mg/dL Normal 0.70-1.30 [facility] Comment on above: Performed By: #### T RXN, TRXNP #### [facility] (DEFAULT) [address] [place] [address] eGFR, CKD-EPI, Male > Normal >=[address] [facility] Comment on above: Result Comment: Repo rted eGFR is based on the CKD-EPI 2020 equation using creatinine, age, and sex. Performed By: #### T RXN, TRXNP #### [facility] (DEFAULT) [address] [place] [address] Glucose [Mass/Vol] 93 mg/dL Normal Nonfastin -179 mg/dL; Fastin-[address] [facility] Comment on above: Performed By: #### T RXN, TRXNP #### [facility] (DEFAULT) [address] [place] [address] Osmolality [Osmolality] 294 mosm/kg Normal 278-[address] [facility] Comment on above: Performed By: #### T RXN, TRXNP #### [facility] (DEFAULT) [address] [place] [address] Potassium [Moles/Vol] 4.2 mmol/L Normal 3.5-5.0 [facility] Comment on above: Performed By: #### T RXN, TRXNP #### [facility] (DEFAULT) [address] [place] [address] Sodium [Moles/Vol] 139 mmol/L Normal 135-145 [facility] Comment on above: Performed By: #### T RXN, TRXNP #### [facility] (DEFAULT) [address] [place] [address] Urea nitrogen [Mass/Vol] 22 mg/dL Normal 02-[address] [facility] Comment on above: Performed By: #### T RXN, TRXNP #### [facility] (DEFAULT) [address] [place] [address] Urea nitrogen/Creatinine [Mass ratio] 25 mg/mg Normal [facility] Comment on above: Performed By: #### T RXN, TRXNP #### [facility] (DEFAULT) [address] [address] [address] CARDIAC PULMONARY VENOGRA [facility] 01-07-2025 CT CARDIAC PULMONARY VENOGRAM [facility] CT Report Name: CONRAD OCONNELL : 1955 Scan Date: 2025-01-07 11:52:44 Electronically signed by Yaneth Cosby 13:03:05 VITALS = HEIGHT: 69 in (175.26 cm) WEIGHT: 230.00 lbs (104.33 kgs) BSA: 2.19 m^2 BMI: 34 kg/m^2 BP: 97 / 67 mmHg BASELINE HR: 103 BPM FINAL = PULMONARY VEIN CT 69yoM with atrial arrhythmias referred for CT pulmonary venogram to assess left atrial (LA) and pulmonary vein (PV) anatomy prior to cardioversion. 1. No LA, RA or KATINA thrombus by first pass or delayed images. 2. Normal pulmonary venous anatomy with 4 PV draining to the LA. No evidence of PV stenosis. 3. Additional incidental findings noted below. Cardiac Findings: -\X09\Coronary calcification is seen. However, the study is not optimized for coronary calcification detection or for luminal stenosis evaluation. -\X09\No aortic valve or mitral annular calcification. -\X09\Moderate atherosclerosis of the thoracic descending aorta. -\X09\The ascending aorta is normal in size measuring 34 x 34 mm at the pulmonary artery (PA) bifurcation. -\X09\The main PA measures 28 mm in diameter which is normal. -\X09\No pericardial thickening, effusion or calcification. Extra-Cardiac Findings (Limited Field of View): -\X09\Chest Wall/Bone: Degenerative disease of thoracic spine. -\X09\Mediastinum/Hil a: No adenopathy. -\X09\Pleural Spaces: Right pleural effusion. -\X09\Lung Parenchyma: No large nodules or masses. STUDY QUALITY: Study quality is good. SCAN INFO = TEST TYPE: Venogram SCANNER IT SPECIALIST: [employer] SCANNER MODEL: NAEOTOM Enmotus DOSE REDUCTION ALGORITHM: Helical with dose modulation SCAN COVERAGE ZONE: Pulmonary Veins/KATINA EKG GATED: No GENERAL ---- CONTRAST AGENT ---- CONTRAST AGENT USED?: Yes TYPE: Omnipaque 350 DOSE: 50 ml RATE: 4 ml/s ROUTE: IV BOLUS TECHNIQUE: Biphasic SCAN DELAY TIME METHOD: Bolus Track SERUM CREATININE: 0.88 mg/dL GFR: 90.73 ml/min/1.73m^2 CREATININE DATE: CT CONTRAST REACTION: None RADIATION DOSE ---- DLP: 99 SETUP ---- DATE OF EVENT: SCAN TYPE: Clinical PATIENT TYPE: Inpatient REASON(S) FOR SCAN: EP procedure planning REFERRING PHYSICIAN: 1) Bianka Bunch ATTENDING PHYSICIAN: YANETH COSBY TECHNOLOGIST: Swathi Doty = Patient Account [id number] CPT Codes 78191 ICD10 Codes I48.0 Report generated by [employer], a product of [employer] Normal [facility] Chest>Heart.atrium.left+Pulm onary veins CT angiogram and 3D reconstruction W contrast Stone 01-07-[address] [facility] Radiology Study observation (narrative) [facility] Chest>Heart.atrium.left+Pulm onary veins CT angiogram and 3D reconstruction W contrast IVOrdered By: Yaneth Cosby on 01-07-2025 [facility] Work Phone: GLUCOSE POCon 01-07-2025 Glucose [Mass/Vol] 79 mg/dL 70 - 179 mg/dL [facility] Glucose [Mass/Vol] 122 mg/dL 70 - 179 mg/dL [facility] Glucose [Mass/Vol] 88 mg/dL 70 - 179 mg/dL [facility] POC Sample Type CAPBL [facility] Glucose [Mass/Vol] 100 mg/dL 70 - 179 mg/dL [facility] POC Sample Type CAPBL [facility] IONIZED CALCIUM, WHOLE BLOOD on 01-07-2025 Calcium.ionized (Bld) [Moles/Vol] 4.69 mg/dL 4.60 - 5.30 mg/dL [facility] Interpretation and review of laboratory results Normal [facility] ICA 4.69 mg/dL Normal 4.60-5.[address] [facility] Comment on above: Performed By: #### X M #### [facility] (DEFAULT) [address] [address] MAGNESIUMon 01-07-2025 Magnesium [Mass/Vol] 1.9 mg/dL 1.6 - 2 .6 mg/dL [facility] Magnesium [Mass/Vol] 1.9 mg/dL Normal 1.6-2.[address] [facility] Comment on above: Performed By: #### T RXN, TRXNP #### [facility] (DEFAULT) [address] [place] [address] No Panel Informationon 01-07 POC Sample Type CAPBL [facility] Interpretation and review of laboratory results Normal [facility] PHOSPHATE, INORGANICon 01-07 Phosphate [Mass/Vol] 3.6 mg/dL 2.2 - 4 .6 mg/dL [facility] Phosphorous 3.6 mg/dL Normal 2.2-4.[address] [facility] Comment on above: Performed By: #### T RXN, TRXNP #### [facility] (DEFAULT) [address] [place] [address] PT,INR,PTTon 01-07-2025 aPTT Coag (PPP) [Time] 43.5 s High [facility] INR Coag (Bld) [Relative time] 1.6 {INR} High 0.9 - 1.1 [facility] Interpretation and review of laboratory results Abnormal [facility] PT Coag (PPP) [Time] 19 s High [facility] aPTT Coag (Bld) [Time] 43.5 s High 24.0-34.3 [facility] Comment on above: Performed By: #### X M #### [facility] (DEFAULT) [address] [place] [address] INR Coag (PPP) [Relative time] 1.6 {INR} High 0.9-1.[address] [facility] Comment on above: Performed By: #### X M #### [facility] (DEFAULT) [address] [place] [address] PT Coag (PPP) [Time] 19.0 s High 11.9-14.[address] [facility] Comment on above: Performed By: #### X M #### [facility] (DEFAULT) [address] [place] [address] CBC,PLATELETSon 01-06-2025 Erythrocyte distribution width (RBC) [Ratio] 19.8 % High 10.9 - 14.3 % [facility] Hematocrit (Bld) [Volume fraction] 25.4 % Low 39.6 - 48.8 % [facility] Hemoglobin (Bld) [Mass/Vol] 7.6 g/dL Low 13.4 - 16.8 g/dL [facility] Interpretation and review of laboratory results Abnormal [facility] MCH (RBC) [Entitic mass] 24.2 pg Low 26. 1 - 33.[address] [facility] MCHC (RBC) [Mass/Vol] 29.9 g/dL Low 31.9 - 36.5 g/dL [facility] MCV (RBC) [Entitic vol] 80.9 fL 79.0 - 94.[address] [facility] Platelet mean volume (Bld) [Entitic vol] 10.3 fL 8.7 - 12.[address] [facility] Platelets (Bld) [#/Vol] 417 10*3/uL High 146 - 337 K/uL [facility] RBC (Bld) [#/Vol] 3.14 10*6/uL Low [facility] WBC (Bld) [#/Vol] 10.61 10*3/uL High 3.73 - 10 .10 K/uL [facility] Hematocrit (Bld) [Volume fraction] 25.4 % Low 39.6-48.[address] [facility] Comment on above: Performed By: #### X M #### [facility] (DEFAULT) [address] [place] [address] Hemoglobin (Bld) [Mass/Vol] 7.6 g/dL Low 13.4-16.[address] [facility] Comment on above: Performed By: #### X M #### [facility] (DEFAULT) [address] [place] [address] MCV (RBC) [Entitic vol] 80.9 fL Normal 79.0-94.5 [facility] Comment on above: Performed By: #### X M #### [facility] (DEFAULT) [address] [place] [address] Mean Cell Hgb 24.2 pg Low 26.1-33.[address] [facility] Comment on above: Performed By: #### X M #### [facility] (DEFAULT) [address] [place] [address] Mean Cell Hgb Conc 29.9 g/dL Low 31.9-36.5 [facility] Comment on above: Performed By: #### X M #### [facility] (DEFAULT) [address] [place] [address] Platelet mean volume (Bld) [Entitic vol] 10.3 fL Normal 8.7-12.[address] [facility] Comment on above: Performed By: #### X M #### [facility] (DEFAULT) [address] [place] [address] Platelets (Bld) [#/Vol] 417 10*3/uL High 146-[address] [facility] Comment on above: Performed By: #### X M #### [facility] (DEFAULT) [address] [place] [address] RBC (Bld) [#/Vol] 3.14 10*6/uL Low 4.38-5.[address] [facility] Comment on above: Performed By: #### X M #### [facility] (DEFAULT) [address] [place] [address] RBC Distribution 19.8 % High 10.9-14.3 [facility] Comment on above: Performed By: #### X M #### [facility] (DEFAULT) [address] [place] [address] WBC (Bld) [#/Vol] 10.61 10*3/uL High 3.73-10.[address] [facility] Comment on above: Performed By: #### X M #### [facility] (DEFAULT) [address] [place] [address] CHEM 7 (LYTES,BUN,CREA,GLUC) on 01-06-2025 Anion gap [Moles/Vol] 11 mmol/L 7 - 17 mmol/L [facility] Chloride [Moles/Vol] 108 mmol/L 98 - 10 8 mmol/L [facility] CO2 [Moles/Vol] 22 mmol/L 21 - 31 mmol/L [facility] Creatinine [Mass/Vol] 0.75 mg/dL 0.70 - 1.30 mg/dL [facility] eGFR, CKD-EPI, [facility] - [facility] Glucose [Mass/Vol] 91 mg/dL 70 - 179 mg/dL [facility] Osmolality Calc [Osmolality] [facility] Potassium [Moles/Vol] 4.4 mmol/L 3.5 - 5.0 mmol/L [facility] Sodium [Moles/Vol] 137 mmol/L 135 - 145 mmol/L [facility] Urea nitrogen [Mass/Vol] 21 mg/dL 7 - 25 mg/d [facility] Urea nitrogen/Creatinine [Mass ratio] 28 mg/mg [facility] Anion gap [Moles/Vol] 11 mmol/L Normal 7-17 [facility] Comment on above: Performed By: #### T RXN, TRXNP #### [facility] (DEFAULT) [address] [place] [address] Chloride [Moles/Vol] 108 mmol/L Normal 98-[address] [facility] Comment on above: Performed By: #### T RXN, TRXNP #### [facility] (DEFAULT) [address] [place] [address] CO2 [Moles/Vol] 22 mmol/L Normal 21-31 [facility] Comment on above: Performed By: #### T RXN, TRXNP #### [facility] (DEFAULT) [address] [place] [address] Creatinine [Mass/Vol] 0.75 mg/dL Normal 0.70-1.30 [facility] Comment on above: Performed By: #### T RXN, TRXNP #### [facility] (DEFAULT) [address] [place] [address] eGFR, CKD-EPI, Male > Normal >=[address] [facility] Comment on above: Result Comment: Repo rted eGFR is based on the CKD-EPI 2020 equation using creatinine, age, and sex. Performed By: #### T RXN, TRXNP #### [facility] (DEFAULT) [address] [place] [address] Glucose [Mass/Vol] 91 mg/dL Normal Nonfastin -179 mg/dL; Fastin-[address] [facility] Comment on above: Performed By: #### T RXN, TRXNP #### [facility] (DEFAULT) [address] [place] [address] Osmolality [Osmolality] 290 mosm/kg Normal 278-[address] [facility] Comment on above: Performed By: #### T RXN, TRXNP #### [facility] (DEFAULT) [address] [place] [address] Potassium [Moles/Vol] 4.4 mmol/L Normal 3.5-5.0 [facility] Comment on above: Performed By: #### T RXN, TRXNP #### [facility] (DEFAULT) [address] [place] [address]76 Sodium [Moles/Vol] 137 mmol/L Normal 135-145 [facility] Comment on above: Performed By: #### T RXN, TRXNP #### [facility] (DEFAULT) [address] [place] [address] Urea nitrogen [Mass/Vol] 21 mg/dL Normal 7-[address] [facility] Comment on above: Performed By: #### T RXN, TRXNP #### [facility] (DEFAULT) [address] [place] [address]776 Urea nitrogen/Creatinine [Mass ratio] 28 mg/mg Normal [facility] Comment on above: Performed By: #### T RXN, TRXNP #### [facility] (DEFAULT) [address] [place] [address] GLUCOSE POCon 01-06-2025 Glucose [Mass/Vol] 77 mg/dL 70 - 179 mg/dL [facility] POC Sample Type [facility] Glucose [Mass/Vol] 93 mg/dL 70 - 179 mg/dL [facility] Glucose [Mass/Vol] 95 mg/dL 70 - 179 mg/dL [facility]OC [facility] Glucose [Mass/Vol] 86 mg/dL 70 - 179 mg/dL [facility] POC Sample Type CAPBL [facility] Glucose [Mass/Vol] 73 mg/dL 70 - 179 mg/dL [facility] POC Sample Type CAPBL [facility] IONIZED CALCIUM, WHOLE BLOOD on 01-06-2025 Calcium.ionized (Bld) [Moles/Vol] 4.74 mg/dL 4.60 - 5.30 mg/dL [facility] Interpretation and review of laboratory results Normal [facility] ICA 4.74 mg/dL Normal 4.60-5.[address] [facility] Comment on above: Performed By: #### X M #### [facility] (DEFAULT) [address] [place] [address] MAGNESIUMon 01-06-2025 Magnesium [Mass/Vol] 1.8 mg/dL 1.6 - 2 .6 mg/dL [facility] Magnesium [Mass/Vol] 1.8 mg/dL Normal 1.6-2.[address] [facility] Comment on above: Performed By: #### T RXN, TRXNP #### [facility] (DEFAULT) [address] [place] [address]341 No Panel Informationon 01-06 Interpretation and review of laboratory results Normal [facility] PHOSPHATE, INORGANICon 01-06 Phosphate [Mass/Vol] 3.6 mg/dL 2.2 - 4 .6 mg/dL [facility] Phosphorous 3.6 mg/dL Normal 2.2-4.[address] [facility] Comment on above: Performed By: #### T RXN, TRXNP #### [facility] (DEFAULT) [address] [place] [address]658 PT,INR,PTTon 01-06-2025 aPTT Coag (PPP) [Time] 48.2 s High [facility] INR Coag (Bld) [Relative time] 1.7 {INR} High 0.9 - 1.1 [facility] Interpretation and review of laboratory results Abnormal [facility] PT Coag (PPP) [Time] 19.9 s High [facility] aPTT Coag (Bld) [Time] 48.2 s High 24.0-34.3 [facility] Comment on above: Performed By: #### X M #### [facility] (DEFAULT) [address] [place] [address]345 INR Coag (PPP) [Relative time] 1.7 {INR} High 0.9-1.[address] [facility] Comment on above: Performed By: #### X M #### [facility] (DEFAULT) [address] [place] [address]131 PT Coag (PPP) [Time] 19.9 s High 11.9-14.[address] [facility] Comment on above: Performed By: #### X M #### [facility] (DEFAULT) [address] [place] [address] 38052 ANAEROBE CULTUREOrdered By: Diana Siddiqui on 01-05-2025 Bacteria identified Cx Nom (Unsp spec) No anaerobic growth [facility] CBC,PLATELETSon 01-05-2025 Erythrocyte distribution width (RBC) [Ratio] 19.9 % High 10.9 - 14.3 % [facility] Hematocrit (Bld) [Volume fraction] 24.5 % Low 39.6 - 48.8 % [facility] Hemoglobin (Bld) [Mass/Vol] 7.3 g/dL Low 13.4 - 16.8 g/dL [facility] Interpretation and review of laboratory results Abnormal [facility] MCH (RBC) [Entitic mass] 24.1 pg Low 26. 1 - 33.[address] [facility] MCHC (RBC) [Mass/Vol] 29.8 g/dL Low 31.9 - 36.5 g/dL [facility] MCV (RBC) [Entitic vol] 80.9 fL 79.0 - 94.[address] [facility] Platelet mean volume (Bld) [Entitic vol] 10.8 fL 8.7 - 12.[address] [facility] Platelets (Bld) [#/Vol] 417 10*3/uL High 146 - 337 K/uL [facility] RBC (Bld) [#/Vol] 3.03 10*6/uL Low [facility] WBC (Bld) [#/Vol] 13.47 10*3/uL High 3.73 - 10 .10 K/uL [facility] Hematocrit (Bld) [Volume fraction] 24.5 % Low 39.6-48.[address] [facility] Comment on above: Performed By: #### C UMA SMART TRIG IPB #### [facility] (DEFAULT) [address] [place] [address] Hemoglobin (Bld) [Mass/Vol] 7.3 g/dL Low 13.4-16.[address] [facility] Comment on above: Performed By: #### C HM7UMA TRIG, IPB #### [facility] (DEFAULT) [address] [place] [address] MCV (RBC) [Entitic vol] 80.9 fL Normal 79.0-94.[address] [facility] Comment on above: Performed By: #### C HM7, MGO, TRIG, IPB #### [facility] (DEFAULT) [address] [place] [address]111 Mean Cell Hgb 24.1 pg Low 26.1-33.[address] [facility] Comment on above: Performed By: #### C HM7, MGO, TRIG, IPB #### [facility] (DEFAULT) [address] [place] [address] 27133 Mean Cell Hgb Conc 29.8 g/dL Low 31.9-36.5 [facility] Comment on above: Performed By: #### C HM7, MGO, TRIG, IPB #### [facility] (DEFAULT) [address] [place] [address] 19977 Platelet mean volume (Bld) [Entitic vol] 10.8 fL Normal 8.7-12.[address] [facility] Comment on above: Performed By: #### C HM7, MGO, TRIG, IPB #### [facility] (DEFAULT) [address] [place] [address] Platelets (Bld) [#/Vol] 417 10*3/uL High 146-[address] [facility] Comment on above: Performed By: #### C HM7, MGO, TRIG, IPB #### [facility] (DEFAULT) [address] [place] [address] RBC (Bld) [#/Vol] 3.03 10*6/uL Low 4.38-5.[address] [facility] Comment on above: Performed By: #### C HM7, MGO, TRIG, IPB #### [facility] (DEFAULT) [address] [place] [address] 35857 RBC Distribution 19.9 % High 10.9-14.3 [facility] Comment on above: Performed By: #### C HM7, MGO, TRIG, IPB #### [facility] (DEFAULT) [address] [place] [address] WBC (Bld) [#/Vol] 13.47 10*3/uL High 3.73-10.[address] [facility] Comment on above: Performed By: #### C HM7, MGO, TRIG, IPB #### [facility] (DEFAULT) [address] [place] [address] CHEM 7 (LYTES,BUN,CREA,GLUC) on 01-05-2025 Anion gap [Moles/Vol] 14 mmol/L 7 - 17 mmol/L [facility] Chloride [Moles/Vol] 108 mmol/L 98 - 10 8 mmol/L [facility] CO2 [Moles/Vol] 20 mmol/L Low 21 - 31 mmol/L [facility] Creatinine [Mass/Vol] 0.81 mg/dL 0.70 - 1.30 mg/dL [facility] eGFR, CKD-EPI, Male - PINF [facility] Glucose [Mass/Vol] 108 mg/dL 70 - 179 mg/dL [facility] Interpretation and review of laboratory results Abnormal [facility] Osmolality Calc [Osmolality] 291 [facility] Potassium [Moles/Vol] 4.6 mmol/L 3.5 - 5.0 mmol/L [facility] Sodium [Moles/Vol] 137 mmol/L 135 - 145 mmol/L [facility] Urea nitrogen [Mass/Vol] 20 mg/dL 7 - 25 mg/d L [facility] Urea nitrogen/Creatinine [Mass ratio] 25 mg/mg [facility] Anion gap [Moles/Vol] 14 mmol/L Normal 7-17 [facility] Comment on above: Performed By: #### I PB, MGO, CHM7 ####[facility] (DEFAULT)[address] [place] [address] Chloride [Moles/Vol] 108 mmol/L Normal 98-[address] [facility] Comment on above: Performed By: #### I UMA MOISE CHM7 ####[facility] (DEFAULT)[address] [place] [address] CO2 [Moles/Vol] 20 mmol/L Low 21-31 [facility] Comment on above: Performed By: #### UMA BLACKMAN CHM7 ####[facility] (DEFAULT)[address] [place] [address] Creatinine [Mass/Vol] 0.81 mg/dL Normal 0.70-1.30 [facility] Comment on above: Performed By: #### I UMA MOISE CHM7 ####[facility] (DEFAULT)[address] [place] [address], [place] [address] eGFR, CKD-EPI, Male > Normal >=[address] [facility] Comment on above: Result Comment: Repo rted eGFR is based on the CKD-EPI 2020 equation using creatinine, age, and sex. Performed By: #### I UMA MOISE CHM7 ####[facility] (DEFAULT)[address] [place] [address] Glucose [Mass/Vol] 108 mg/dL Normal Nonfastin -179 mg/dL; Fastin-[address] [facility] Comment on above: Performed By: #### UMA BLACKMAN CHM7 ####[facility] (DEFAULT)[address] [place] [address] Osmolality [Osmolality] 291 mosm/kg Normal 278-[address] [facility] Comment on above: Performed By: #### UMA BLACKMAN CHM7 ####[facility] (DEFAULT)[address] [place] [address] Potassium [Moles/Vol] 4.6 mmol/L Normal 3.5-5.0 [facility] Comment on above: Performed By: #### I UMA MOISE CHM7 ####[facility] (DEFAULT)[address] [facility] [place] [address] Sodium [Moles/Vol] 137 mmol/L Normal 135-145 [facility] Comment on above: Performed By: #### I PB, MGO, CHM7 ####[facility] (DEFAULT)[address] [facility] [place] [address] Urea nitrogen [Mass/Vol] 20 mg/dL Normal 7-[address] [facility] Comment on above: Performed By: #### I PB, MGO, CHM7 ####[facility] (DEFAULT)[address] [facility] [place] [address] Urea nitrogen/Creatinine [Mass ratio] 25 mg/mg Normal [facility] Comment on above: Performed By: #### I PB, MGO, CHM7 ####[facility] (DEFAULT)[address] [place] [address] GLUCOSE POCon 01-05-2025 Glucose [Mass/Vol] 116 mg/dL 70 - 179 mg/dL [facility] POC Sample Type [facility] Glucose [Mass/Vol] 115 mg/dL 70 - 179 mg/dL [facility] POC Sample Type [facility] Glucose [Mass/Vol] 96 mg/dL 70 - 179 mg/dL [facility] Glucose [Mass/Vol] 101 mg/dL 70 - 179 mg/dL [facility] IONIZED CALCIUM, WHOLE BLOOD on 01-05-2025 Calcium.ionized (Bld) [Moles/Vol] 4.31 mg/dL Low 4.60 - 5.30 mg/dL [facility] Interpretation and review of laboratory results Abnormal [facility] ICA 4.31 mg/dL Low 4.60-5.[address] [facility] Comment on above: Performed By: #### X M #### [facility] (DEFAULT) [address] [place] [address] MAGNESIUMon 01-05-2025 Magnesium [Mass/Vol] 1.9 mg/dL 1.6 - 2 .6 mg/dL [facility] Magnesium [Mass/Vol] 1.9 mg/dL Normal 1.6-2.[address] [facility] Comment on above: Performed By: #### I UMA MOISE CHM7 ####[facility] (DEFAULT)[address] [place] [address] No Panel Informationon 01-05 Interpretation and review of laboratory results Normal [facility] POC Sample Type [facility] PHOSPHATE, INORGANICon 01-05 Phosphate [Mass/Vol] 3.5 mg/dL 2.2 - 4 .6 mg/dL [facility] Phosphorous 3.5 mg/dL Normal 2.2-4.[address] [facility] Comment on above: Performed By: #### I UMA MOISE CHM7 ####[facility] (DEFAULT)[address] [place] [address] PT,INR,PTTon 01-05-2025 aPTT Coag (PPP) [Time] 38.4 s High [facility] INR Coag (Bld) [Relative time] 1.2 {INR} High 0.9 - 1.1 [facility] Interpretation and review of laboratory results Abnormal [facility] PT Coag (PPP) [Time] 15.5 s High [facility] aPTT Coag (Bld) [Time] 38.4 s High 24.0-34.3 [facility] Comment on above: Performed By: #### G AS5L #### [facility] (DEFAULT) [address] [place] [address] INR Coag (PPP) [Relative time] 1.2 {INR} High 0.9-1.[address] [facility] Comment on above: Performed By: #### G AS5L #### [facility] (DEFAULT) [address] [address] PT Coag (PPP) [Time] 15.5 s High 11.9-14.[address] [facility] Comment on above: Performed By: #### G AS5L #### [facility] (DEFAULT) [address] [address] SURG PATH REQUESTOrdered By: Pricilla Mckenna on 01-05-[address] [facility] Work Phone: Clinical History w3bsxTHwFLDqqFGiHVXx N vapxgZyGHJiaYRbM2Krck krCIljCC4lTT6heWngyMO xoFMaGTRbSmIdf5pvs325 rSYsk5cxGEJDghemhOl5l UoxD08ws1A4TekeO0prNW QwXGdyZWVuMFxibHVlMDt 9XHBhcGVydzEyMjQwXHBh fVCgrQI6VYIuXL9ecgfrL XxnEQocUNUoeeY7BTUppO HfK7PcTQYnLC1sudtoEPY 4HUrtDWOaNDH3AmGuGTKe p7Dcxpy5AcQgwEq8x3glX OSgZQCbsVnqi0jhGMZ5SI TwrWRrA9ssbY3fMKSlPC9 fnbrnm2mfJNihSZtwIXWa vLG9giS3UQGqbGKrL5Ewf V5vULGmLSRfphYtnYqqfC 6eIvHmZCgxGzNuGIOvNE8 fVlGyD31ez83yaUQmFb1t BJQzm12qEVAHBEGrZNewP SezwK0vfEehZJ6sF6E1CX 2vfX9qYIHzmpWid5MpayH gYXRyaWFsIGZpYnJpbGxh aAukpp1fH48BYN7mA0NWD pDDZZ5jY91mRUFfUX78lL TzZIe3eWJxgWCqf2dpgd8 kM02sN1BozJj7EOCtJAYf dCBmYWlsdXJlLiBVbGNlc oX9nYCnLUQjeLb5sAHlKS xwYXJ9 [facility] Work Phone: For Immediate Release to Patient's MyChart? Yes Yes [facility] Work Phone: Gross Description h7zzeEPwRSRzp9qmQXCj b GFuZzEwMzNcZnRuYmpcdW MxIHtccnRmMVxlcGljMTE zGMFlUC8mwUozaHe7cPwr UNSjkwP6qSFkSUjry9izZ YG4m8pcyhfgUUVgSWrvTz 9udHRibHtcZjAgQXJpYWw 0vI96XXXgjK4knIOlYZg2 XHBhcGVydzEyMjQwXHBhc NHzxEF3HFIdEY8sanotAJ egVCojBCRbqgU1QJRxfWV eE0BiYVPiDC3dfzrzZBS8 RStcSNNrPDK5YlGuQFCmb 7Hncng2KiKxfLLrGJyfdY FpblxmczIwICAgIFRoZSB xoKOmxD7drzWkYPNeLLYs A9OkjoXdBBhjPZNiquZvP ZQfj4Mictz8JDcfWgByIE CiL11rrWHdlfCgyhV1vVI iDBYrYGNpTUYqOI15Y5Dk bmFtZSBhbmQgYWNjZXNza M2rEP50tCVbcx5qEPAeyg stGYWnSJ9eULf3GMQkWMb lIHNwZWNpbWVuIGlzIGRl s3dfarK6BEOmValcidRgo U7nSVYiMNWiy02rxHH4sq BvZiBhIDEyLjMgeCAzLjQ mY09uqM4pJNmtmCE3BBYa p0SsxPReyOElJvMtpRNsw BNuy4alcVPnahDzuVfqKE Plsa1cVEgnf3WnHmDmJWM pcyBkaWZmdXNlbHkgZGFy ulPfpeR6TQLjg5rtXRCgb 79cSWK0XOVmf4n3gEPbLL yck3bfjzNrWPIQdUXyh1R oT3fyVJ5kpOUbs2VmnqNu QXHkZPN0vAArjEQak0DeK GlzIGdyYXktdGFuLCBnbG hmlMMoiM8pRZmulLdvxeI nlJ2xYL50FXAdcgG0bXMz sjStfPtxoWSgb5nsoqSmu aZair1nGDbfS5BtyDOznU OkzS9dPKvjUKbnBF65kZW pZWQuICBSUyAzXHBhclxw GOCfrNe9XmIauVinJfAjT DCyf0YylHOddsdmbDPdCU TcNSPwSQJxI3Iyk32xxRA vG3zimiJjhWQvOOIaTNSk UQFoLL9oi76ud8RrkGeew nRlMrJzaPEbuZTcl9kxeG AgXHBhclxsaTBcbGluMFx pWCVaRc7xSPv9FVKqWDij IHNwZWNpbWVuIGlzIGRlc 2tqizO0ZOJjUjcwGIRnFc QrbcJyJ07xu2cxmNLqb9L dDXHdGz65QSsfBy2xRJTc OWyiMZTwKK9dkDAxINRvD 32lfrAyj9Hjh25yuBxcBm 43HDnlRAAQlHKan3Hbe4W hbCBzdXJmYWNlIGlzIGdy PWhiMkTly81iSDPoLlR3f 7TakOKzy20fKHI3DQWik1 g8jIKmA5G6oYXaYUVjLSH fMEHkf28iYZRtFJO4xHGb HCTiipXdLXMcTiI9IFVqG YEheSX9jyBka631mpBrWX GkRlJydGI6kAvplGKoejF fHxNlY18pVnUaoWK3gVPl bmVhcmVzdCBzdGFwbGUgb NLfC9wcGuEzPEebKBAwNX QqlWDuFOytLC5aMH2uTGS yZXZlYWxpbmcgYSBncmF5 QTWywhlwU7gaf0AqiodjX hJowlZrxcQocQ8lJC27XM QwcSZgJGHumLJcz6BqZXY SUyAzXHBhclxwYXJcbGk3 XcAxfKoyGmNrHCZpo2Czy HRlczpccGFyIEIxLCByZX SiG5Ola17xlGKrG6zersD rfNMvSLLkLPY7uuXde405 cmFsIGRlZmVjdFxwYXIgQ vSmKGPqulDzhYJfWII7uG 9genJgEjJujJDuxGYuo8f lbCAgXHBhclxsaTBcbGlu FKhnWNQeZy1gtHFkZNRdX DXhyOZusM6swtTsnqCgGW YmI24lsVQbVZHpt7djycC nNH5wDEZcgbSoy9YgVW6r SDRitN83IZayR78gLLR1j 215IGNvbXByaXNlZCBvZi IoFZQsRNO3EKPtVuSipWW iLKafXJ14AE5eHYZppw5o qkJcTWauFBGhUWX9FU1jU EknTO51JWYiMLDhIfAhwG DxkwXgoOMgLEZveeGdk6j wfxC7eKLpDLA9yGCpkSAw JSXcgBJyXZd5DQPuWPIhM SEsD90lt65zVeBvTZeie0 GxMTMsb4G3IM8mTPXcSRB qQSKur5MyUNN9idUvM5Zv hTUqL9HemI83BR2iECuxg XM8QB1irvctFJ6gRZ5iZW GmnVknHIRhq8MmoQPsPEZ cRK1ehO0mJTUmbH8lWHVg NUWwFSHap1VkqXGgVFgeT wMsADi6XJZsoueax2XmXX U7lMUrHKzqmUYfNIapQSO hVLG6iTOgtUKrUX5qRYbn XTTwAGTnFZBtAGVqG33rc 44rXzIwYRuvx4JiRPUpd5 H6FZ4xQTAePKOolZInlS1 xmyYslwSgfPEjAITjKO2u UJXjOWBuPCcwgpy1dANwV aQ2kCCsxIMkm1YnPXtsQF dyYXktdGFuLCBnbGlzdGV nvB2iQKecbEoxwtUbcA3c QY19QWKdcfV6sYRvqzQec VvtxHXoz8oldzOjlfXky6 UnoEiwlnyqJdZ5xCRvyWf fLYNzCKCreJA3IIfrcM9k cZIlfNFtUBXha5VtbrOyl udkS38pc22oacO4SPIqfv BkaWZmdXNlIGRpdmVydGl etVgkONewbFtptC4sPCEs dCnwYlIyCnDiLFXfKEZ8m GVuZGluZyBpbnRvIHRoZS OzyjJ2qnK8NUQxIMdihIA jSJllfBtonpWgMQiob4Ju OQPly0A5GG4lTNIfHJLur HBlbmRpeCBpcyAzLjggeC OvCqGgL73sDU8dELAcR7X gm33gAMW0nhLdECGmXGtx XN4boQ91HYL8IHYjsBKlM YmmWUFuFHjlpUzoz7f4mF MuUHFzphWvqO84ATj5hGK jLnIwP7m0rDqdHHMzOPPo oPP8PMxdlYBccBNceJ8uy ZDlOjB5JAE1jpkyLX38RU LwWVaxCEjrxTLpUIOjk8B kXffjCRd2qOBdMB6pVSZg IGFyZSBpZGVudGlmaWVkL iAgUlMgOFxwYXJccGFyXG xpNzIwXGxpbjcyMCBDYXN jMYX1HFN7SYLzcwLBDSic wuGoAOT9yP6cHM5fgufvb iBccGFyIEMyLUMzLCBhYn AmLEGgWCVeqgIYNU9MNTv fFWs0TLA1cES5eWHfFABv vfGQClweuqKmUG4tAWHgd A11m8z9WYTuQ75jh86mZO UgjcCHZrpiJQUeCB8ejXq gXHBhciBDOCwgdHdvIGx5 tORlFZ5qHYPaVRIhjUAaL YimDUxygN2sTOSzwyTNCR QsLTEhPY7jbTk9UWjcKtm LVLCzWbS3TAYzQeIhINIr ia29XVR6GuIdw6Y9IJWaV sBrQPDyPL3jhZkgHZPxBR 3cYUThN1kkbI6zywe1QdU fESTbXdR5GHSgtbY4Jzk0 XNBgSPdnr8uob3YfYJFdV Ma0dWrzCfRqFUOno7cmym BcZmNoYXJzZXQwIEFyaWF hW977i9kda9efiaOikDF7 CXNoXCB3MSynfaHjmeX8P YkekNGtDnI3QIzjzcEjOE qiopBdmcKlOqk2ARCoK85 1NTZ1tSqxj6mhHRM9SIQj OPSfAhKfCi4vgGEqS607L VMyEOQCWQWynPc1KYPsxc QvgiVzqENTm782O407a6w iPGIsgcChbSlHppqhf1rr V989WOAkqBPthvJlSlZgO QQyyGJxjWX5RUWsMM3xyi bdHUyqMUibYBPfmmJ0PSP glVZgK0FhFOOgQQ8prbvm VHB5RLfzMJMeVSH0GzEuB KIht4Pwdbr5XkBmib8beu 68TZF8f9JxlTdsECE3XIB 8NnSdNj8ftVIwGPQgTV9i DlJzjLKrEVDnjh86lTudD WgkglNpaU9eXsBzFXKdwO LbVTHnIT5zsDArDKMcuP4 ucmxjXHBnYnJkcmhlYWRc dJubpnTsSv1qzDycZUU6M LpgR9nylZ8tFbP8CGylW3 zrkX6jYQq9PMcafCK4SFB rzI8hRC8olagoi9mzIDbc QKkiXPQwedL8brG5TLNjt QYpH4QxpT7tBLUvNW1mzc irq3efVTB6OSxfWJNtMEH 0FvXvKWAhx9Lrqui4CiSo c4WizQHmTUtsI60pi369N UYlvqPuJ0eykVKotbuhbZ ItfbxhFZgaarG9QCMhHNI sYWluXGYxXGZzMjJcbGFu ZzEwMzNcaGljaFxmMVxkY ySxNUOhKRusE3suDmQyXr MgWtPRio9tn2MuLTTwhbL 4rHhlHDOaz5Jff9SpZiOC X343fCWIDA31eS2rLGTgv GFyfX0= [facility] Work Phone: Microscopic Description d2xaoNOoJIEnkSXd ZjIyM FUnDNCyw6czLKZhfYFaIg EwMzNcZnRuYmpcdWMxXGR rFkUhh4huh814oDZpl9ho KKCaFmC9oJWzJYGorCXqF 580KYKvAGsrp3vnz8SnME IjnITdy2N4BINZbjeqnPw 4fLshX98cz9Y8MvtpG4vg EIZoNKXxP8YpJZ3hURRgL wb7BUA3UFC3LBCgRRIlH8 TsCL5cXGNasJTkXGu4y5g dmQyoZXUtYVV8z0zvNUfs xuYbPY0ffz1fqVk5a2aoz zEgRGVmYXVsdCBQYXJhZ3 RwuDalMb5elNs3eWbkJiz wKTB7Cyw2SH5tcd13pfx0 cHtiFTLzwnoxIiZ6KDzeD XBfyxjwYCp0CKoiMOZgvI U0BAPukYSzT7FlJDLiNK9 acxt2EXL7EOadAKItOdS2 NDBcaGVhZGVyeTcyMFxmb 769JYK9RrOqKY2lF3Bub0 F9tV8hqIKuLPLmsKWbZlF yUIBtjl0aoIJiCEijl0Yz PAW4bwA1kSZukQQjFASvG P40Iydzo9EzNxlwZVQ9BK OrduRpe1Bdi7rbLhMwfaT dR7jmV4FzNNCiEECrICHm EzAfkmDdt8Gxd7DjlBQrx Kh7t0biEZKaXVWrfPjcx9 njDXG5KVImF4Y5rWJzc0l rIPseLANxzWY9tnP5BPSh gARiL8CduK0bUTRkRY4lw pg5z1rdBPP1PRfwMAYlOs R0prV1XOWsaTYzXYLdaPr sFFxaq741KYQ1LbFbUOKg d6HjB1BbfLvnX91arJajG 66gPSSqpUregL9duAnjiB 5cZjBcZnMyNFxxbFxwbGF pblxmMVxmczIwXGxhbmcx QFMdEZshV1kxNoBjOVFfu FfmOLzof0OxAKCnCADvBz NmGDQwjICnq0Hme8WaOlU fiXRimR7ceZrfwzG6BLXy uJGrXy6hrCQkHkEygBIuc Q== [facility] Work Phone: Pathologic Diagnosis n6aivZXrJWXnxRMcWDY wN ejpquObWBNkvNBmY6Pjlh hzYLidXI0cSK5buPqdkBB uqQJlXDWcEsOff9fjs560 aVTwf7xbTQLLroyqyAz0x 9jbQHMBjI1ht7g3lO06TU JadL0eeAZjWYwfriZqZRm tyvPempSiTre6BDZ3oIkl ZuysyJM7iXHxwPM7IFymd 6SgiQkusOfkEMP6YVZ8AM S1SfhneLP2rBLkoZxgtBY fUN6sj8enlLG6qlXoKYE3 hCvexSH6nAxeecwbv0nug LS7rUE0AMjroPZ3XAiyLj AyO0qzNEIsaA9xD55yU0i sZXZlbGpjMFxsZXZlbHN0 BAB5QXPtl1glFUNryEPnh NIiZaCdZNekCvd5e4ezPC MszK44iYLfoiK4sDbiCOl mczIwXGxpMzYwXGZpMTgw fXtcbGlzdGxldmVsXGxld eAchqDoPgSbzAJ7RXazQy HeYbVcoDR9WCuzYkDhaQR 7HOvneOEeuDR0BSrmpPX9 ROc7BQh2TRewKPqzKaq1r QklwTD2GKtleH1iEWAbA3 4qGbGqPvRnGP81ZAulp4P gWJMpnPsuFIFnuA3sMiBc XGxldmVsbmZjbjIzXGxld zMheyIiFIiojtSzb1Esoz PvrXN2SVczqpMcfNR2hDx dJRAjR1C0Y535VNsxsmMj lhWaXjEoaot7BHRhSYFiX fS9c9kuzDQ8kPB6URuhqM B3IBchRyPuV6wcFDOvaM8 sW16kJ7ivITKkfFewWFyy TOUcaKN3YBY9KADyk7zuL XZlbHRleHRcJzAxXCdiNz e1b5fkZSLquJ90mZBwtwK 7fVxmMVxmczIwfXtcbGlz dGxldmVsXGxldmVsbmZjM jTzjYR2PDqkReSsBmEyeZ L2BHyvRcLawXW3VUocnDB apAQ6NEjntVE2ZLn4VQh7 BTgfSNsiUdz5xMjgxKI7X WscyJ7tXGVkD12wQpZoUh VoYY36FWwwf3DlAFHtvEz mHNCvnY2jQaJeJOaflkBg bmZjbjIzXGxldmVsamMwX KplzaJzo0DvnmYfkDD7LK nvewTdzAS9jPgpPOOeB8L 7U278VOmbnpAoddMePjKp cot4JKTxHNUyTqD3c1zbv AQ5pPM0PZkyxLZ6BTyuVv EeS3zrMSVvmD3lA11oN1i sZXZlbGpjMFxsZXZlbHN0 HRO3SLNlh9gwAIYcvKApg SYgOjVySWbzUyy0a8wlJE WhwP55hNOojtG9xVbnKMl mczIwfXtcbGlzdGxldmVs UEmpswNraqYnUeQeaJF7T AipHlPzRzDfxYW6YCugIx GiyPY1UMjzlIGduTA7JMk ezZF6DWa1QFg2IXtzNNsm Rtx0vEzpmRH9LGxowS7mM AUgD20xWbOpYfKyKQ20MS diy5UiAPKtfRknPJImtX8 mYzIzXGxldmVsbmZjbjIz XGxldmVsamMwXGxldmVsc 5NaarFtbEF8AZqtygUysF M0iNxpURMcK8G4I891JBk wldHpqtXqJsSfikt1DRHd ISKyPfN0gRjhgWoeoNury LD9fTM5EEI8TGT3WKuhjW lzdHRlbXBsYXRlaWQtMXt xnCpdvL4zlELpZ78srMfu dZb4SoGtGEanuPoupPzue mVsXGxldmVsbmZjMjNcbG U8CRbwKgDcVhEpqLR9TCq gGnVqtIN7DNsdzLQecXM9 IOqfsMC6GQh4AOe1MZjzM EqtVfq9iRyiiHP0WCodoG 8gWCJxX13lClXvYfXdTGp hdUE7BXxpcJY7RF10LNli l3RhSARmiCnnSGKtvQ2uH zIzXGxldmVsbmZjbjIzXG cujlBlphHtAWoeulHjc3L hlgIfmSS3NJlllwYaiKI0 uFqmPVGgW0Q3R858KNxud jBolzMhSdJicwu1HAPeUG ClTzG6e2otzFI7oWE6MYk erBN5XZhtNtFnN6ljHUNj kO0sV59tC0agHXWyqBcpJ SykEXYjlLX2VOY1FRWaf1 xsZXZlbHRleHRcJzAxXCd nSza8m4mhXGTelC67dWZf knG8mDhbFXrldaTrsWrif GlzdGxldmVsXGxldmVsbm HwSgXnpGT6AMunLxMiJtQ ibAA8ZTylEbVkvVM4JVxk iEEmkNJ1OZrrmDY3WPm8H Ud0LPpyLBrdWjj7cVgouO V8ITiboU1gAYSxQ16vUvV lMrPzSZ61CLskf7JeSFCn oVtrABRpoG1rKtRxEQlsn mVsbmZjbjIzXGxldmVsam ScCVxajaFax0BpdhNylUO 2FJaircWpvPA5lNxaCECj G2T7G436SEgstqMrfiIuR pMytyu1VNAiKXKtYsR9x6 hkdZP0mNR6QZunaXT3RHp vZkTrL0sjFIKccD7sR94t V9hcOBNyeWscVYwnRXRim OP2RJA9VVAvt6heUFGekC UaaJJtBvGnFLwdNfh1f7j rFROaeR12vHPqydV1lQov MVxmczIwfXtcbGlzdGxld mVsXGxldmVsbmZjMjNcbG U3FDtuGgSuMwVglEK4JIk vYvMdmTO1XCproGVfdGA9 JMzmmTO9OHt1CTm6DKivP MooHvh7wDyorPL2VMvvuG 6qHCUbX37eLvJcFiFpJG3 9URtkw2XeGADxyTmsGCWj cP1jXwEhWIrqcuFvfgAqt jIzXGxldmVsamMwXGxldm Ogg9IvclXgsFH3GAckbxI xwCT4zBiqAQZtB4K7J786 PVqufnMvxpKmXfCrsnu1A QOaJGYkMfT3h8lemYL3lL R1QJrllKS3GAjvBwImA8x kSASexP2xU47qS6nfGICw kTypWFaeWOTxrJF0UJY1J AJrv3plKXIkqUSkdPSyYr PiUHiwClm2o6gwUVThpH4 7oLXvwoT5qOxrTZxndqPi bD09OTecw7SuyLnbmXbqB Cx2VTZpIMzpEYsxc7V7VV 0sgGV8CAqsNFN7EZkvc6A eDZ6oZBo8DHeus3LklBVv fMW4XFznp7KuRVQgiSatC NTvzO9wOxCeZJbwlgVqbc ZjbjIzXGxldmVsamMwXGx gyrMie6OqpaKmvLB2XWdz nuWuxAM3eLeuRXNpE6C8D 317XGxldmVsbnVtYmVycz k8VROvPHPeZfWkmCssWwL uItqqMWP5k4abwSK8yQP6 QUgocPF2YDkbYwUnB3plZ DQynF3dP86sH1lqBQYzfN tbEHsvGEXkuEU0WIB3BCT ii2hbCTGkqBKttZWpEsGq PChsRqm3u2cbZGFweK50e GBkpvG0sFlpOJmtdpVbhN tcbGlzdGxldmVsXGxldmV mcuNgDzVuhAE9UAhrWcSj IkNgiNY7XMuyXyJwmVU5W WkbeXXjvGK9DCvxfKK4HS o9LUi3KKraZXbjJxx7aYh gsEW0FFrvnM8qDTEfC85c UfQqYhTgMT95AZuni6PuN QYzpAiuOSMhtM5mFsKdOD xldmVsbmZjbjIzXGxldmV dymSpJRimhbQsx8HxnzBw oXM8ZVpzxlDfmJF0sEerC AQbG5N5H431GFdslqGqut RfZmMvcwn6BMItTTMwTiH 1u5qhjSD5jSJ7WNvykKW3 IVxjEmSkA3kzJEKnnH1yP 92dZ2coMBPrlDqgADorQJ XhvFQ3IOM1HMCsb0hkLYD lbHRleHRcJzAxXCdiNzt9 f5kgXJUddW05xBRbpzC4s VxmMVxmczIwfXtcbGlzdG xldmVsXGxldmVsbmZjMjN epVT9JRbuQaPwGyHsbDB2 SMyiHxZopHI8ZHmghQRdm HS2KBieqKB1IXe8TZj5UJ kpBUodGvh5oAkepTQ7DQn xaT3nCDCmN48tOiVhNkMr HA93JEmlm7FhJWClvVamQ BZbcV7rSdHgBXpvpfQqog ZjbjIzXGxldmVsamMwXGx sxsNyh9KztcSgjJX2QEaz dyHyfLR4uOxtXVThQ5J3E 317XGxldmVsbnVtYmVycz p7JMXqCNQjJnH4d7olxIR 1oHN9QVyenWB4KFphGvIv W7ezCZWnvB5iY24bN5nnR TDjxIvpMYklNOScgVO2PP C7XJAbz7usFMErnKZbtYP hLqMeBAzjEbi4e3afVVXf vV60fZOpfaR1kCsgVTugd zIwfXtcbGlzdGxldmVsXG sxqyGdzcJpReEcfRH7JMh tLoQlNzIvxIB7BZyqGvSu hLH5CCfdnNWbrEW4WHodq IY0ZPg2FAp6QRoqYPgoEc d5gTppxNZ9QQeikA7oVPM lH28vMbHbYfNjXR93bBez KnropFP3k5ZchsVnGCW8C INoJQjyYeokoFZ6q2Whyz EnKMKggOdrvVpqKKM5TEA 4VRH2PrtlzWG5o4AahhKc NWRnw1EumQZusUUrsBmfD ayvsZX6z3BdrmFvLBTyrZ joyMcpNVDcOSQoHJH4APm pw8TsvvYhcqypPTGbnC46 JZccjhE4o3kwXGyng0Thu aHysbcoRNtbyRG3eKT9Im z2YpQ5TTEljNntiP46REW usDFiV387edWoTVldR690 XHBhcGVydzEyMjQwXHBhc BUwjIX3MPAxDC4zklvmCI pmVSozPFNgxfG0JHSjkIZ iU0FdDERxQJ4kccpjGBL3 SZjfCIUpJTQ2UwQhWEMhi 0Mlsny0CqIpdCHlPMpehO YocqbaKOMbGaAoJ9KeHRF tBMFqQTrxCTBfj3PiCEDl FOp7hjUzFOQfjOSkk6oyd jpccGFyXGxpMzYwXGZpMT lmGFbvesK9DMgbdzBeeLw 1aLRpaAexuU5jYyozdrMd HDUvZCUPk9Z3oU5nEG4bZ NcqacFapK6wr7t4bTAclQ Gwz8YwYPQvmd3qLLubBQT aRTGmo46uCHLcskGbGIN7 uXIjPJ0iPA5zS1EbyFoqy spln4Huj3Dgh7FxoPQqfg DlGE9nVNNjz89nAN9dLYM zEdIey8brYNPzwcIYt7Ig cCllJVLsHNpfN8pobnHcP 2VsbCByZWFjdGlvblxwYX JmSe2inOLdx2CkmSBfIx1 dvq1fuDf0jWIjNVIsxsWG SUoepEt7CDQnr5DzYJfti Vcay5sqFQ8nAN4yeCdjze RfK9dukEVdZSwwIOUyWup wXGxpbjkwXGxzMFxwYXJc tBrhRWlsqaCoUz0gF18qw DqoEb44JCpnBBpqCMOvXS VsjUOdw2kauqpxkZSsGSo pMzYwXGZpMTgwXGxpbjM2 FKcxmyNsnMf9fEGywGuax A6vWwtsqwVlGPAoPPMVj3 U4gH4hMN1zITacPTZcAFe xwKlcYllmaq33aoSvOVKe o0NzDQXxhASgqL7epipeB VE8oTAvXL7lIN3hB4OnmR tnvbvqt6Zke2Swk1YeeMF jvcVpVS5sGQIud58wDL7x GZBmWwLek2kbLTStntPCh GSkyUNms6ZyFAEtCB1dEM JytxJVthUvnGBsv8RiFJY upy2yoNSxbOVtUQDwaWBt SO5vO6L7rDZcDRNsirRir STpaVNzrCPvu7RqmRQjcN srOA2rvMazWLRuaNi7YVv maTBcbGluOTBcbHMwXHBh clxsaTBcbGluMCBDLiBDb 8tinjrphQ06ZKbdN74fGX E7q309ThjxHCHleVbfJuK cZmkxODBcbGluMzYwXGxz Z8hdtSMfAFbgwXRbfjlmL ADwIhUmG4PqNBOcdxWsn0 7ef6UnU50me13bb3j2rNV ylLWzxyYaO0OeNBMwCSpw ZWFzZSwgcnVwdHVyZWQgZ Yj6ZKT2nRI6kBa3pNFvw8 w7rSEuQIAsDGFajZ3dkOQ zNEUpU7BcazheMIhqIwGr yyUoVrrksu69xsZmDMCzb 9UxBJLfdKIuyA4wq1qkHt FccGFyXGNmMCBTbWFsbCB zm8xymJW9pSNiUIJjxBRg EBIavl7zjVCrxcHnokVvB pxkso33zoGfXXOqz0ZdSL ZrdMGkvP3uo3ruKcItfHI yXGNmMCBBcHBlbmRpeCB3 dFXyNLNnNeFhTCBwyC5wA MAmVzbsgQUcVKCyi59ad3 YgdGhlIHRpcFxjZjFccGF eGNIkVQVHbxPfkAXpm3Ns FKVroc4dnHLraGHhESThS 2YxXHBhclxjZjAgVHdvIC hbTGGsGM4vH69vzIfhsAc yny5lXFOfE9YiUWGgia6= [facility] Work Phone: Professional Interpretation Performed at: a1vcpZElWMIrpOUlVcDeH WJaXVNmx0ocPMIpxYQhVw EwMzNcZnRuYmpcdWMxXGR eVwYve4scd763yGNmm5ua WIOtOxR6zQJhEURapCOqZ 391FXAiQSxna8fns8IgYA CekBEcz0E0VCKIyscrtPr 7sPnuT49ui3V1BpzqP5ht ZCGhQXVqN5GaBD1jVNQxJ vy4XFU3MIH5LBOfNAXaN6 YbKR6qJXKtuKUjRMv6g8d htCteZCXbXOU1q9vrJRso leIgFH2owj5rnXe0k9rfj zEgRGVmYXVsdCBQYXJhZ3 NeaUmrVl8ztPw1rEahFbu dEVO9Hhz0KT8tfj52hlk1 eZvsWETpgrfpQfK8VWmjY ZNznsegRUb3WPnqPXWgoL L7WJHgiDAbU1UtVQMvSB3 kgvb2FVP5PMkfCWGfNcD3 NDBcaGVhZGVyeTcyMFxmb 174MQH3VmDiYY0wW6Qpe2 Z6aM3gdTRoUGVsbSLvQvE wSXEysi3bxQNvKSmdh9Mq AGM1kaH3yMSxcSJfUAAuD X51Qzbql4IsMrxdHRM4CA GqjyHqe3Tze5qgPtUilwR iX6taH4DaYJRzVNQiVFBc DmYxcgVbo8Dvn4ApaADzn Re1q9erYDWzQERnsLiai3 odLPD5NEWbI2N0wFVck8r rZNrjJLTdyZI9gvM6WCAf zKBoC4KpnS8lRBTpJW4xj no8h8kaDDW2XXlpPKTzFg Z5akL0KGFpoLQcFAByeKe iJWyjr490DFL5IuTxAEUn t6TsQ1LlbYijE77ozGgtQ 14iOLWppMdpqO4laJsvzH 5cZjBcZnMyNFxwYXJkXHB sYWluXGYxXGZzMjJcbGFu ZzEwMzNcaGljaFxmMVxkY gLrYCSkHEabI6ftMgHqDe BxEjEAG8UyO7UHWvDMJB9 ZPMhZXGvmQ7XIJFFVDAUI BS9HH6SXLNiPRd6XRWXGB xxhrMGiAHCqSHEDBPH9MC JkyBkaEXVrBCMmrdMIq5l 5cOD5zdnqU5uprkQ6KbVh MFxwYXJ9 [facility] Work Phone: [facility] Work Phone: TRANSFUSION RXN - PATH INTER PRETATIONOrdered By: Jonaatn Perry on 01-05-2025 BKR DX CODE See Comment [facility] Work Phone: Interpreted By Jonatan Perry MD [facility] Work Phone: Laboratory Results [facility] Work Phone: Pathophysiology Circulatory overload is at least, in part, secondary to infusion of blood products resulting in cardiogenic pulmonary edema. [facility] Work Phone: Recommendations TACO may be moderate d by slow infusion of blood products, limiting the infusion of oncotic fluids such as plasma, and the judicious use of diuretics. [facility] Work Phone: Signs and Symptoms The signs and symptoms are suggestive of Transfusion-Associate d Circulatory Overload (TACO). [facility] Work Phone: [facility] Work Phone: [facility] Work Phone: CBC,PLATELETSon 01-04-2025 Erythrocyte distribution width (RBC) [Ratio] 20 % High 10.9 - 14.3 % [facility] Hematocrit (Bld) [Volume fraction] 25.8 % Low 39.6 - 48.8 % [facility] Hemoglobin (Bld) [Mass/Vol] 7.6 g/dL Low 13.4 - 16.8 g/dL [facility] Interpretation and review of laboratory results Abnormal [facility] MCH (RBC) [Entitic mass] 24.4 pg Low 26. 1 - 33.[address] [facility] MCHC (RBC) [Mass/Vol] 29.5 g/dL Low 31.9 - 36.5 g/dL [facility] MCV (RBC) [Entitic vol] 83 fL 79.0 - 94.[address] [facility] Platelet mean volume (Bld) [Entitic vol] 10.5 fL 8.7 - 12.[address] [facility] Platelets (Bld) [#/Vol] 432 10*3/uL High 146 - 337 K/uL [facility] RBC (Bld) [#/Vol] 3.11 10*6/uL Low [facility] WBC (Bld) [#/Vol] 15.4 10*3/uL High 3.73 - 10. 10 K/uL [facility] Hematocrit (Bld) [Volume fraction] 25.8 % Low 39.6-48.[address] [facility] Comment on above: Performed By: #### X M #### [facility] (DEFAULT) [address] [address] Hemoglobin (Bld) [Mass/Vol] 7.6 g/dL Low 13.4-16.[address] [facility] Comment on above: Performed By: #### X M #### [facility] (DEFAULT) [address] [address] MCV (RBC) [Entitic vol] 83.0 fL Normal 79.0-94.5 [facility] Comment on above: Performed By: #### X M #### [facility] (DEFAULT) [address] [place] [address] Mean Cell Hgb 24.4 pg Low 26.1-33.[address] [facility] Comment on above: Performed By: #### X M #### [facility] (DEFAULT) [address] [place] [address] 9[address] Mean Cell Hgb Conc 29.5 g/dL Low 31.9-36.5 [facility] Comment on above: Performed By: #### X M #### [facility] (DEFAULT) [address] [place] [address] Platelet mean volume (Bld) [Entitic vol] 10.5 fL Normal 8.7-12.[address] [facility] Comment on above: Performed By: #### X M #### [facility] (DEFAULT) [address] [place] [address] Platelets (Bld) [#/Vol] 432 10*3/uL High 146-[address] [facility] Comment on above: Performed By: #### X M #### [facility] (DEFAULT) [address] [place] [address] RBC (Bld) [#/Vol] 3.11 10*6/uL Low 4.38-5.[address] [facility] Comment on above: Performed By: #### X M #### [facility] (DEFAULT) [address] [place] [address] RBC Distribution 20.0 % High 10.9-14.3 [facility] Comment on above: Performed By: #### X M #### [facility] (DEFAULT) [address] [place] [address] WBC (Bld) [#/Vol] 15.40 10*3/uL High 3.73-10.[address] [facility] Comment on above: Performed By: #### X M #### [facility] (DEFAULT) [address] [place] [address] Erythrocyte distribution width (RBC) [Ratio] 19.9 % High 10.9 - 14.3 % [facility] Hematocrit (Bld) [Volume fraction] 23.8 % Low 39.6 - 48.8 % [facility] Hemoglobin (Bld) [Mass/Vol] 6.9 g/dL Critically low 13.4 - 16.8 g/dL [facility] Interpretation and review of laboratory results Abnormal [facility] MCH (RBC) [Entitic mass] 23.9 pg Low 26. 1 - 33.[address] [facility] MCHC (RBC) [Mass/Vol] 29 g/dL Low 31.9 - 36.5 g/dL [facility] MCV (RBC) [Entitic vol] 82.4 fL 79.0 - 94.[address] [facility] Platelet mean volume (Bld) [Entitic vol] 10.4 fL 8.7 - 12.[address] [facility] Platelets (Bld) [#/Vol] 371 10*3/uL High 146 - 337 K/uL [facility] RBC (Bld) [#/Vol] 2.89 10*6/uL Low [facility] WBC (Bld) [#/Vol] 13.82 10*3/uL High 3.73 - 10 .10 K/uL [facility] Hematocrit (Bld) [Volume fraction] 23.8 % Low 39.6-48.[address] [facility] Comment on above: Performed By: #### X M #### [facility] (DEFAULT) [address] [address] Hemoglobin (Bld) [Mass/Vol] 6.9 g/dL Critically low 13.4-16.[address] [facility] Comment on above: Result Comment: This result has been called to Joshua Sanchez RN by [email or web address] on 01/04/2025 04:18:00, and has been read back. Performed By: #### X M #### [facility] (DEFAULT) [address] [address] MCV (RBC) [Entitic vol] 82.4 fL Normal 79.0-94.[address] [facility] Comment on above: Performed By: #### X M #### [facility] (DEFAULT) [address] [address] Mean Cell Hgb 23.9 pg Low 26.1-33.[address] [facility] Comment on above: Performed By: #### X M #### [facility] (DEFAULT) [address] [address] Mean Cell Hgb Conc 29.0 g/dL Low 31.9-36.5 [facility] Comment on above: Performed By: #### X M #### [facility] (DEFAULT) [address] [address] Platelet mean volume (Bld) [Entitic vol] 10.4 fL Normal 8.7-12.[address] [facility] Comment on above: Performed By: #### X M #### [facility] (DEFAULT) [address] [address] Platelets (Bld) [#/Vol] 371 10*3/uL High 146-[address] [facility] Comment on above: Performed By: #### X M #### [facility] (DEFAULT) [address] [address] RBC (Bld) [#/Vol] 2.89 10*6/uL Low 4.38-5.[address] [facility] Comment on above: Performed By: #### X M #### [facility] (DEFAULT) [address] [address] RBC Distribution 19.9 % High 10.9-14.3 [facility] Comment on above: Performed By: #### X M #### [facility] (DEFAULT) [address] [address] WBC (Bld) [#/Vol] 13.82 10*3/uL High 3.73-10.[address] [facility] Comment on above: Performed By: #### X M #### [facility] (DEFAULT) [address] [place] [address] CHEM 7 (LYTES,BUN,CREA,GLUC) on 01-04-2025 Anion gap [Moles/Vol] 13 mmol/L 7 - 17 mmol/L [facility] Chloride [Moles/Vol] 109 mmol/L High 98 - 10 8 mmol/L [facility] CO2 [Moles/Vol] 18 mmol/L Low 21 - 31 mmol/L [facility] Creatinine [Mass/Vol] 0.69 mg/dL Low 0.70 - 1.30 mg/dL [facility] eGFR, CKD-EPI, Male - PINF [facility] Glucose [Mass/Vol] 100 mg/dL 70 - 179 mg/dL [facility] Interpretation and review of laboratory results Abnormal [facility] Osmolality Calc [Osmolality] 289 [facility] Potassium [Moles/Vol] 4.9 mmol/L 3.5 - 5.0 mmol/L [facility] Sodium [Moles/Vol] 135 mmol/L 135 - 145 mmol/L [facility] Urea nitrogen [Mass/Vol] 24 mg/dL 7 - 25 mg/d L [facility] Urea nitrogen/Creatinine [Mass ratio] 35 mg/mg [facility] Anion gap [Moles/Vol] 13 mmol/L Normal -17 [facility] Comment on above: Performed By: #### H [facility] #### [facility] (DEFAULT) [address] [place] [address] Chloride [Moles/Vol] 109 mmol/L High 98-[address] [facility] Comment on above: Performed By: #### H [facility] #### [facility] (DEFAULT) [address] [place] [address] CO2 [Moles/Vol] 18 mmol/L Low 21-31 [facility] Comment on above: Performed By: #### H [facility] #### [facility] (DEFAULT) [address] [address] Creatinine [Mass/Vol] 0.69 mg/dL Low 0.70-1.30 [facility] Comment on above: Performed By: #### H EMO #### [facility] (DEFAULT) [address] [place] [address] eGFR, CKD-EPI, Male > Normal >=[address] [facility] Comment on above: Result Comment: Repo rted eGFR is based on the CKD-EPI 2020 equation using creatinine, age, and sex. Performed By: #### H EMOGC #### [facility] (DEFAULT) [address] [place] [address] Glucose [Mass/Vol] 100 mg/dL Normal Nonfastin -179 mg/dL; Fastin-[address] [facility] Comment on above: Performed By: #### H EMO #### [facility] (DEFAULT) [address] [place] [address] Osmolality [Osmolality] 289 mosm/kg Normal 278-[address] [facility] Comment on above: Performed By: #### H EMOGC #### [facility] (DEFAULT) [address] [address] Potassium [Moles/Vol] 4.9 mmol/L Normal 3.5-5.0 [facility] Comment on above: Performed By: #### H EMO #### [facility] (DEFAULT) [address] [address] Sodium [Moles/Vol] 135 mmol/L Normal 135-145 [facility] Comment on above: Performed By: #### H EMOGC #### [facility] (DEFAULT) [address] [address] Urea nitrogen [Mass/Vol] 24 mg/dL Normal 7-[address] [facility] Comment on above: Performed By: #### H EMOGC #### [facility] (DEFAULT) [address] [address] Urea nitrogen/Creatinine [Mass ratio] 35 mg/mg Normal [facility] Comment on above: Performed By: #### H [facility] #### [facility] (DEFAULT) [address] [place] [address] GLUCOSE POCon 01-04-2025 Glucose [Mass/Vol] 108 mg/dL 70 - 179 mg/dL [facility] POC Sample Type CAPBL [facility] Glucose [Mass/Vol] 93 mg/dL 70 - 179 mg/dL [facility] POC Sample Type CAPBL [facility] Glucose [Mass/Vol] 99 mg/dL 70 - 179 mg/dL [facility] POC Sample [facility] Glucose [Mass/Vol] 108 mg/dL 70 - 179 mg/dL [facility] POC Sample Type [facility] HEMOGLOBIN & HEMATOCRITon Hematocrit (Bld) [Volume fraction] 23.8 % Low 39.6 - 48.8 % [facility] Hemoglobin (Bld) [Mass/Vol] 6.9 g/dL Critically low 13.4 - 16.8 g/dL [facility] Interpretation and review of laboratory results Abnormal [facility] Hematocrit (Bld) [Volume fraction] 23.8 % Low 39.6-48.[address] [facility] Comment on above: Performed By: #### X M #### [facility] (DEFAULT) [address] [place] [address] Hemoglobin (Bld) [Mass/Vol] 6.9 g/dL Critically low 13.4-16.[address] [facility] Comment on above: Result Comment: This result has been called to Joshua Sanchez RN by [email or web address] on 01/04/2025 05:12:17, and has been read back. Performed By: #### X M #### [facility] (DEFAULT) [address] [place] [address] IONIZED CALCIUM, WHOLE BLOOD on 01-04-2025 Calcium.ionized (Bld) [Moles/Vol] 4.64 mg/dL 4.60 - 5.30 mg/dL [facility] Interpretation and review of laboratory results Normal [facility] ICA 4.64 mg/dL Normal 4.60-5.[address] [facility] Comment on above: Performed By: #### G AS5L #### [facility] (DEFAULT) [address] [place] [address] MAGNESIUMon 01-04-2025 Magnesium [Mass/Vol] 2.3 mg/dL 1.6 - 2 .6 mg/dL [facility] Magnesium [Mass/Vol] 2.3 mg/dL Normal 1.6-2.[address] [facility] Comment on above: Performed By: #### H [facility] #### [facility] (DEFAULT) [address] [place] [address] NT-PRO B-TYPE NATRIURETIC PE PTIDEon 01-04-2025 Interpretation and review of laboratory results Abnormal [facility] Natriuretic peptide.B prohormone N-Terminal IA [Mass/Vol] 1435 pg/mL High NINF - 540 pg/mL [facility] Natriuretic peptide B (Bld) [Mass/Vol] 1435 pg/mL High <=[address] [facility] Comment on above: Performed By: #### X M #### [facility] (DEFAULT) [address] [place] [address] No Panel Informationon 01-04 Interpretation and review of laboratory results Normal [facility] PHOSPHATE, INORGANICon 01-04 Phosphate [Mass/Vol] 3.9 mg/dL 2.2 - 4 .6 mg/dL [facility] Phosphorous 3.9 mg/dL Normal 2.2-4.[address] [facility] Comment on above: Performed By: #### H [facility] #### [facility] (DEFAULT) [address] [place] [address] PREPARE TO TRANSFUSE RED BLO OD CELLSon 01-04-2025 ABO/RH(D) TYPE Positive [facility] BLOOD COMPONENT TYPE Red Cells, Leukoreduced [facility] EXPIRATION DATE [id number] [facility] Product ABO/RH(D) Positive [facility] Product ABO/RH(D) NUMBER 5100 [facility] PRODUCT CODE [id number] [facility] UNIT NUMBER [id number] [facility] UNIT STATUS transfused [facility] PT,INR,PTTon 01-04-2025 aPTT Coag (PPP) [Time] 47.1 s High [facility] INR Coag (Bld) [Relative time] 1.4 {INR} High 0.9 - 1.1 [facility] Interpretation and review of laboratory results Abnormal [facility] PT Coag (PPP) [Time] 17.2 s High [facility] aPTT Coag (Bld) [Time] 47.1 s High 24.0-34.3 [facility] Comment on above: Performed By: #### T RXSonia TRXNP #### [facility] (DEFAULT) [address] [place] [address] INR Coag (PPP) [Relative time] 1.4 {INR} High 0.9-1.[address] [facility] Comment on above: Performed By: #### T RXSonia, TRXNP #### [facility] (DEFAULT) [address] [place] [address] PT Coag (PPP) [Time] 17.2 s High 11.9-14.[address] [facility] Comment on above: Performed By: #### T RXSonia, TRXNP #### [facility] (DEFAULT) [address] [place] [address] Portable XR Chest Viewson RADIOLOGY RADIOLOGY [facility] Radiology Study observation (narrative) [facility] Portable XR Chest ViewsOrder ed By: Ursula Toney on 01-04-2025 [facility] Work Phone: TRANSFUSION REACTION BATTERY on 01-04-2025 ABO/RH(D) TYPE Positive [facility] BKR HEMOLYSIS CHECK Negative [facility] CLERICAL CHECK PASS [facility] ANDRES, POLY Negative [facility] ABO/RH(D) TYPE Positive Normal [facility] Comment on above: Result Comment: @ 13:15 by PW: [id number] called to and read back by Dr. Mahnaz Oneil 01/04/25 1305 Renée Warren Performed By: #### T RXN, TRXNP #### [facility] (DEFAULT) [address] [place] [address] BKR HEMOLYSIS CHECK Negative Normal [facility] Comment on above: Performed By: #### T RXN, TRXNP #### [facility] (DEFAULT) [address] [place] [address] CLERICAL CHECK PASS Normal [facility] Comment on above: Performed By: #### T RXN, TRXNP #### [facility] (DEFAULT) [address] [place] [address] ANDRES, POLY Negative Normal [facility] Comment on above: Performed By: #### T RXN, TRXNP #### [facility] (DEFAULT) [address] [place] [address] TRANSFUSION RXN - PATH INTER PRETATIONon 01-04-2025 BKR DX CODE See Comment Normal [facility] Comment on above: Order Comment: E87.7 1 Result Comment: E87. 71 Performed By: #### T RXN, TRXNP #### [facility] (DEFAULT) [address] [place] [address] Interpreted By Jonatan Perry MD [facility] Comment on above: Order Comment: E87.7 1 Performed By: #### T RXN, TRXNP #### [facility] (DEFAULT) [address] [place] [address] Laboratory Results [facility] Comment on above: Order Comment: E87.7 1 Result Comment: The clerical check showed no errors, no hemolysis was observed, and the direct antiglobulin test was negative. There is no laboratory evidence of acute hemolytic transfusion reaction. \X09\ Performed By: #### T RXN, TRXNP #### [facility] (DEFAULT) [address] [place] [address] Pathophysiology Circulatory overload is at least, in part, secondary to infusion of blood products resulting in cardiogenic pulmonary edema. [facility] Comment on above: Order Comment: E87.7 1 Performed By: #### T RXN, TRXNP #### [facility] (DEFAULT) [address] [place] [address] Recommendations TACO may be moderate d by slow infusion of blood products, limiting the infusion of oncotic fluids such as plasma, and the judicious use of diuretics. [facility] Comment on above: Order Comment: E87.7 1 Performed By: #### T RXN, TRXNP #### [facility] (DEFAULT) [address] [place] [address] Signs and Symptoms The signs and symptoms are suggestive of Transfusion-Associate d Circulatory Overload (TACO). [facility] Comment on above: Order Comment: E87.7 1 Performed By: #### T RXN, TRXNP #### [facility] (DEFAULT) [address] [place] [address] TYPE AND SCREENon 01-04-2025 ABO/RH(D) TYPE Positive [facility] Specimen Expiration 01/07/2025 23:59 [facility] ABO/RH(D) TYPE Positive Normal [facility] Comment on above: Performed By: #### A CARMEN #### [facility] (DEFAULT) [address] [place] [address] Specimen Expiration 01/07/2025 23:[address] [facility] Comment on above: Performed By: #### A CARMEN #### [facility] (DEFAULT) [address] [place], [place] [id number] XR CHEST 1 VIEW PORTABLEon 0 01-04-2025 XR CHEST 1 VIEW PORTABLE EXAM: XR CHEST 1 VIEW PORTABLE, 01/04/2025 10:48 AM COMPARISON: 01/02/2025 CLINICAL INDICATIONS: dyspnea RELEVANT CLINICAL HISTORY: FINDINGS: (Adequate technique) Implanted Devices: Stable left PICC. Thorax: No acute findings in the chest. IMPRESSION: No acute cardiopulmonary disease Normal [facility] CBC,PLATELETSon 01-03-2025 Erythrocyte distribution width (RBC) [Ratio] 19.8 % High 10.9 - 14.3 % [facility] Hematocrit (Bld) [Volume fraction] 24.2 % Low 39.6 - 48.8 % [facility] Hemoglobin (Bld) [Mass/Vol] 7.2 g/dL Low 13.4 - 16.8 g/dL [facility] Interpretation and review of laboratory results Abnormal [facility] MCH (RBC) [Entitic mass] 24.2 pg Low 26. 1 - 33.[address] [facility] MCHC (RBC) [Mass/Vol] 29.8 g/dL Low 31.9 - 36.5 g/dL [facility] MCV (RBC) [Entitic vol] 81.5 fL 79.0 - 94.[address] [facility] Platelet mean volume (Bld) [Entitic vol] 10.6 fL 8.7 - 12.[address] [facility] Platelets (Bld) [#/Vol] 397 10*3/uL High 146 - 337 K/uL [facility] RBC (Bld) [#/Vol] 2.97 10*6/uL Low [facility] WBC (Bld) [#/Vol] 14.25 10*3/uL High 3.73 - 10 .10 K/uL [facility] Hematocrit (Bld) [Volume fraction] 24.2 % Low 39.6-48.[address] [facility] Comment on above: Performed By: #### X M #### [facility] (DEFAULT) [address] [place] [address] Hemoglobin (Bld) [Mass/Vol] 7.2 g/dL Low 13.4-16.[address] [facility] Comment on above: Performed By: #### X M #### [facility] (DEFAULT) [address] [place] [address] MCV (RBC) [Entitic vol] 81.5 fL Normal 79.0-94.5 [facility] Comment on above: Performed By: #### X M #### [facility] (DEFAULT) [address] [place] [address] Mean Cell Hgb 24.2 pg Low 26.1-33.[address] [facility] Comment on above: Performed By: #### X M #### [facility] (DEFAULT) [address] [place] [address]35[address] Mean Cell Hgb Conc 29.8 g/dL Low 31.9-36.5 [facility] Comment on above: Performed By: #### X M #### [facility] (DEFAULT) [address] [place] [address] Platelet mean volume (Bld) [Entitic vol] 10.6 fL Normal 8.7-12.[address] [facility] Comment on above: Performed By: #### X M #### [facility] (DEFAULT) [address] [place] [address] Platelets (Bld) [#/Vol] 397 10*3/uL High 146-[address] [facility] Comment on above: Performed By: #### X M #### [facility] (DEFAULT) [address] [place] [address] RBC (Bld) [#/Vol] 2.97 10*6/uL Low 4.38-5.[address] [facility] Comment on above: Performed By: #### X M #### [facility] (DEFAULT) [address] [place] [address] RBC Distribution 19.8 % High 10.9-14.3 [facility] Comment on above: Performed By: #### X M #### [facility] (DEFAULT) [address] [place] [address] WBC (Bld) [#/Vol] 14.25 10*3/uL High 3.73-10.[address] [facility] Comment on above: Performed By: #### X M #### [facility] (DEFAULT) [address] [place] [address] CHEM 7 (LYTES,BUN,CREA,GLUC) on 01-03-2025 Anion gap [Moles/Vol] 11 mmol/L 7 - 17 mmol/L [facility] Chloride [Moles/Vol] 109 mmol/L High 98 - 10 8 mmol/L [facility] CO2 [Moles/Vol] 21 mmol/L 21 - 31 mmol/L [facility] Creatinine [Mass/Vol] 0.66 mg/dL Low 0.70 - 1.30 mg/dL [facility] eGFR, CKD-EPI, Male - PINF [facility] Glucose [Mass/Vol] 114 mg/dL 70 - 179 mg/dL [facility] Osmolality Calc [Osmolality] 291 [facility] Potassium [Moles/Vol] 4.7 mmol/L 3.5 - 5.0 mmol/L [facility] Sodium [Moles/Vol] 136 mmol/L 135 - 145 mmol/L [facility] Urea nitrogen [Mass/Vol] 22 mg/dL 7 - 25 mg/d L [facility] Urea nitrogen/Creatinine [Mass ratio] 33 mg/mg [facility] Anion gap [Moles/Vol] 11 mmol/L Normal 7-17 [facility] Comment on above: Performed By: #### T RIG, CHM7, MGO, PALB, IPB ####[facility] (DEFAULT)[address] [facility] [place] [address] Chloride [Moles/Vol] 109 mmol/L High 98-[address] [facility] Comment on above: Performed By: #### T RIG, CHM7, MGO, PALB, IPB ####[facility] (DEFAULT)[address] [facility] [place] [address] CO2 [Moles/Vol] 21 mmol/L Normal 21-31 [facility] Comment on above: Performed By: #### T RIG, CHM7, MGO, PALB, IPB ####[facility] (DEFAULT)[address] [place] [address] Creatinine [Mass/Vol] 0.66 mg/dL Low 0.70-1.30 [facility] Comment on above: Performed By: #### T RIG, CHM7, MGO, PALB, IPB ####[facility] (DEFAULT)[address] [place] [address] eGFR, CKD-EPI, Male > Normal >=[address] [facility] Comment on above: Result Comment: Repo rted eGFR is based on the CKD-EPI 2020 equation using creatinine, age, and sex. Performed By: #### T RIG, CHM7, MGO, PALB, IPB ####[facility] (DEFAULT)[address] [place] [address] Glucose [Mass/Vol] 114 mg/dL Normal Nonfastin -179 mg/dL; Fastin-[address] [facility] Comment on above: Performed By: #### T RIG, CHM7, MGO, PALB, IPB ####[facility] (DEFAULT)[address] [place] [address] Osmolality [Osmolality] 291 mosm/kg Normal 278-[address] [facility] Comment on above: Performed By: #### T RIG, CHM7, MGO, PALB, IPB ####[facility] (DEFAULT)[address] [place] [address] Potassium [Moles/Vol] 4.7 mmol/L Normal 3.5-5.0 [facility] Comment on above: Performed By: #### T RIG, CHM7, MGO, PALB, IPB ####[facility] (DEFAULT)[address] [place] [address] Sodium [Moles/Vol] 136 mmol/L Normal 135-145 [facility] Comment on above: Performed By: #### T RIG, CHM7, MGO, PALB, IPB ####[facility] (DEFAULT)[address] [place] [address] Urea nitrogen [Mass/Vol] 22 mg/dL Normal 7-[address] [facility] Comment on above: Performed By: #### T RIG, CHM7, MGO, PALB, IPB ####[facility] (DEFAULT)[address] [place] [address] Urea nitrogen/Creatinine [Mass ratio] 33 mg/mg Normal [facility] Comment on above: Performed By: #### T RIG, CHM7, MGO, PALB, IPB ####[facility] (DEFAULT)[address] [place] [address] GLUCOSE POCon 01-03-2025 Glucose [Mass/Vol] 133 mg/dL 70 - 179 mg/dL [facility] POC Sample Type [facility] Glucose [Mass/Vol] 126 mg/dL 70 - 179 mg/dL [facility] POC Sample Type [facility] Glucose [Mass/Vol] 103 mg/dL 70 - 179 mg/dL [facility] POC Sample Type [facility] Glucose [Mass/Vol] 126 mg/dL 70 - 179 mg/dL [facility] POC Sample Type [facility] IONIZED CALCIUM, WHOLE BLOOD on 01-03-2025 Calcium.ionized (Bld) [Moles/Vol] 4.61 mg/dL 4.60 - 5.30 mg/dL [facility] Interpretation and review of laboratory results Normal [facility] ICA 4.61 mg/dL Normal 4.60-5.[address] [facility] Comment on above: Performed By: #### A CARMEN #### [facility] (DEFAULT) [address] [place] [address] MAGNESIUMon 01-03-2025 Magnesium [Mass/Vol] 2.2 mg/dL 1.6 - 2 .6 mg/dL [facility] Magnesium [Mass/Vol] 2.2 mg/dL Normal 1.6-2.[address] [facility] Comment on above: Performed By: #### G AS5L #### [facility] (DEFAULT) [address] [id number] No Panel Informationon 01-03 Interpretation and review of laboratory results Abnormal [facility] Interpretation and review of laboratory results Normal [facility] PHOSPHATE, INORGANICon 01-03 Phosphate [Mass/Vol] 2.6 mg/dL 2.2 - 4 .6 mg/dL [facility] Phosphorous 2.6 mg/dL Normal 2.2-4.[address] [facility] Comment on above: Performed By: #### T RIG, CHM7, MGO, PALB, IPB ####[facility] (DEFAULT)[address] [place] [address] PREALBUMINon 01-03-2025 Prealbumin [Mass/Vol] 18 mg/dL 17 - 3 4 mg/dL [facility] Prealbumin [Mass/Vol] 18 mg/dL Normal 17-34 [facility] Comment on above: Performed By: #### G AS5L #### [facility] (DEFAULT) [address] [place] [address] PT,INR,PTTon 01-03-2025 aPTT Coag (PPP) [Time] 43.3 s High [facility] INR Coag (Bld) [Relative time] 1.2 {INR} High 0.9 - 1.1 [facility] Interpretation and review of laboratory results Abnormal [facility] PT Coag (PPP) [Time] 15.1 s High [facility] aPTT Coag (Bld) [Time] 43.3 s High 24.0-34.3 [facility] Comment on above: Performed By: #### S URGP #### [facility] (DEFAULT) [address] [place] [address] INR Coag (PPP) [Relative time] 1.2 {INR} High 0.9-1.[address] [facility] Comment on above: Performed By: #### S URGP #### [facility] (DEFAULT) [address] [place] [address] PT Coag (PPP) [Time] 15.1 s High 11.9-14.[address] [facility] Comment on above: Performed By: #### S URGP #### [facility] (DEFAULT) [address] [place] [address] TRIGLYCERIDEon 01-03-2025 Triglyceride [Mass/Vol] 155 mg/dL High NINF - 150 mg/dL [facility] Triglyceride [Mass/Vol] 155 mg/dL High <[address] [facility] Comment on above: Result Comment: [<15 0 mg/dL: Desirable] [150-199 mg/dL: Borderline] [200-499 mg/dL: High] [>500 mg/dL: Very High] Performed By: #### T CECILIA, MACOM7, MGO, PALB, IPB ####[facility] (DEFAULT)[address] [place] [address] CBC,PLATELETSon 01-02-2025 Erythrocyte distribution width (RBC) [Ratio] 19.9 % High 10.9 - 14.3 % [facility] Hematocrit (Bld) [Volume fraction] 27.4 % Low 39.6 - 48.8 % [facility] Hemoglobin (Bld) [Mass/Vol] 8.2 g/dL Low 13.4 - 16.8 g/dL [facility] Interpretation and review of laboratory results Abnormal [facility] MCH (RBC) [Entitic mass] 24.3 pg Low 26. 1 - 33.[address] [facility] MCHC (RBC) [Mass/Vol] 29.9 g/dL Low 31.9 - 36.5 g/dL [facility] MCV (RBC) [Entitic vol] 81.3 fL 79.0 - 94.[address] [facility] Platelet mean volume (Bld) [Entitic vol] 10.2 fL 8.7 - 12.[address] [facility] Platelets (Bld) [#/Vol] 462 10*3/uL High 146 - 337 K/uL [facility] RBC (Bld) [#/Vol] 3.37 10*6/uL Low [facility] WBC (Bld) [#/Vol] 17.83 10*3/uL High 3.73 - 10 .10 K/uL [facility] Hematocrit (Bld) [Volume fraction] 27.4 % Low 39.6-48.[address] [facility] Comment on above: Performed By: #### X M #### [facility] (DEFAULT) [address] [place] [address] Hemoglobin (Bld) [Mass/Vol] 8.2 g/dL Low 13.4-16.[address] [facility] Comment on above: Performed By: #### X M #### [facility] (DEFAULT) [address] [address] MCV (RBC) [Entitic vol] 81.3 fL Normal 79.0-94.5 [facility] Comment on above: Performed By: #### X M #### [facility] (DEFAULT) [address] [address] Mean Cell Hgb 24.3 pg Low 26.1-33.[address] [facility] Comment on above: Performed By: #### X M #### [facility] (DEFAULT) [address] [address] Mean Cell Hgb Conc 29.9 g/dL Low 31.9-36.5 [facility] Comment on above: Performed By: #### X M #### [facility] (DEFAULT) [address] [address] Platelet mean volume (Bld) [Entitic vol] 10.2 fL Normal 8.7-12.[address] [facility] Comment on above: Performed By: #### X M #### [facility] (DEFAULT) [address] [address] Platelets (Bld) [#/Vol] 462 10*3/uL High 146-[address] [facility] Comment on above: Performed By: #### X M #### [facility] (DEFAULT) [address] [address] RBC (Bld) [#/Vol] 3.37 10*6/uL Low 4.38-5.[address] [facility] Comment on above: Performed By: #### X M #### [facility] (DEFAULT) [address] [address] RBC Distribution 19.9 % High 10.9-14.3 [facility] Comment on above: Performed By: #### X M #### [facility] (DEFAULT) [address] [place] [address] WBC (Bld) [#/Vol] 17.83 10*3/uL High 3.73-10.[address] [facility] Comment on above: Performed By: #### X M #### [facility] (DEFAULT) [address] [place] [address] CHEM 7 (LYTES,BUN,CREA,GLUC) on 01-02-2025 Anion gap [Moles/Vol] 12 mmol/L 7 - 17 mmol/L [facility] Chloride [Moles/Vol] 109 mmol/L High 98 - 10 8 mmol/L [facility] CO2 [Moles/Vol] 20 mmol/L Low 21 - 31 mmol/L [facility] Creatinine [Mass/Vol] 0.74 mg/dL 0.70 - 1.30 mg/dL [facility] eGFR, CKD-EPI, Male - PINF [facility] Glucose [Mass/Vol] 120 mg/dL 70 - 179 mg/dL [facility] Interpretation and review of laboratory results Abnormal [facility] Osmolality Calc [Osmolality] 292 [facility] Potassium [Moles/Vol] 4.4 mmol/L 3.5 - 5.0 mmol/L [facility] Sodium [Moles/Vol] 137 mmol/L 135 - 145 mmol/L [facility] Urea nitrogen [Mass/Vol] 20 mg/dL 7 - 25 mg/d L [facility] Urea nitrogen/Creatinine [Mass ratio] 27 mg/mg [facility] Anion gap [Moles/Vol] 12 mmol/L Normal 7-17 [facility] Comment on above: Performed By: #### X M #### [facility] (DEFAULT) [address] [place] [address] Chloride [Moles/Vol] 109 mmol/L High 98-[address] [facility] Comment on above: Performed By: #### X M #### [facility] (DEFAULT) [address] [place] [address] CO2 [Moles/Vol] 20 mmol/L Low 21-31 [facility] Comment on above: Performed By: #### X M #### [facility] (DEFAULT) [address] [place] [address] Creatinine [Mass/Vol] 0.74 mg/dL Normal 0.70-1.30 [facility] Comment on above: Performed By: #### X M #### [facility] (DEFAULT) [address] [place] [address]285 eGFR, CKD-EPI, Male > Normal >=[address] [facility] Comment on above: Result Comment: Repo rted eGFR is based on the CKD-EPI 2020 equation using creatinine, age, and sex. Performed By: #### X M #### [facility] (DEFAULT) [address] [place] [address] Glucose [Mass/Vol] 120 mg/dL Normal Nonfastin -179 mg/dL; Fastin-[address] [facility] Comment on above: Performed By: #### X M #### [facility] (DEFAULT) [address] [place] [address] Osmolality [Osmolality] 292 mosm/kg Normal 278-[address] [facility] Comment on above: Performed By: #### X M #### [facility] (DEFAULT) [address] [place] [address] Potassium [Moles/Vol] 4.4 mmol/L Normal 3.5-5.0 [facility] Comment on above: Performed By: #### X M #### [facility] (DEFAULT) [address] [place] [address] Sodium [Moles/Vol] 137 mmol/L Normal 135-145 [facility] Comment on above: Performed By: #### X M #### [facility] (DEFAULT) [address] [place] [address] Urea nitrogen [Mass/Vol] 20 mg/dL Normal 7-[address] [facility] Comment on above: Performed By: #### X M #### [facility] (DEFAULT) [address] [place] [address] Urea nitrogen/Creatinine [Mass ratio] 27 mg/mg Normal [facility] Comment on above: Performed By: #### X M #### [facility] (DEFAULT) [address] [place] [address] GLUCOSE POCon 01-02-2025 Glucose [Mass/Vol] 130 mg/dL 70 - 179 mg/dL [facility] POC Sample Type [facility] Glucose [Mass/Vol] 148 mg/dL 70 - 179 mg/dL [facility] POC Sample Type [facility] Glucose [Mass/Vol] 128 mg/dL 70 - 179 mg/dL [facility] Glucose [Mass/Vol] 81 mg/dL 70 - 179 mg/dL [facility] IONIZED CALCIUM, WHOLE BLOOD on 01-02-2025 Calcium.ionized (Bld) [Moles/Vol] 4.44 mg/dL Low 4.60 - 5.30 mg/dL [facility] Interpretation and review of laboratory results Abnormal [facility] ICA 4.44 mg/dL Low 4.60-5.[address] [facility] Comment on above: Performed By: #### A CARMEN #### [facility] (DEFAULT) [address] [place] [address] MAGNESIUMon 01-02-2025 Magnesium [Mass/Vol] 1.7 mg/dL 1.6 - 2 .6 mg/dL [facility] Magnesium [Mass/Vol] 1.7 mg/dL Normal 1.6-2.[address] [facility] Comment on above: Performed By: #### X M #### [facility] (DEFAULT) [address] [place] [address] No Panel Informationon 01-02 POC Sample Type [facility] Interpretation and review of laboratory results Normal [facility] PHOSPHATE, INORGANICon 01-02 Phosphate [Mass/Vol] 2.5 mg/dL 2.2 - 4 .6 mg/dL [facility] Phosphorous 2.5 mg/dL Normal 2.2-4.[address] [facility] Comment on above: Performed By: #### X M #### [facility] (DEFAULT) [address] [place] [address] PT,INR,PTTOrdered By: Janeth Nguyen on 01-02-2025 aPTT Coag (PPP) [Time] 80.1 s High [facility] INR Coag (Bld) [Relative time] 1.2 {INR} High 0.9 - 1.1 [facility] Interpretation and review of laboratory results Abnormal [facility] PT Coag (PPP) [Time] 15.1 s High [facility] PT,INR,PTTon 01-02-2025 aPTT Coag (Bld) [Time] 80.1 s High 24.0-34.3 [facility] Comment on above: Performed By: #### X M #### [facility] (DEFAULT) [address] [place] [address] INR Coag (PPP) [Relative time] 1.2 {INR} High 0.9-1.[address] [facility] Comment on above: Performed By: #### X M #### [facility] (DEFAULT) [address] [place] [address] PT Coag (PPP) [Time] 15.1 s High 11.9-14.[address] [facility] Comment on above: Performed By: #### X M #### [facility] (DEFAULT) [address] [place] [phone] PTTOrdered By: Hiral gold on 01-02-2025 aPTT Coag (PPP) [Time] 131.4 s High [facility] Interpretation and review of laboratory results Abnormal [facility] PTTon 01-02-2025 aPTT Coag (Bld) [Time] 131.4 s High 24.0-34.3 [facility] Comment on above: Order Comment: Colle ct fluids or tissues in a sterile container. If collecting swabs, must be collected in a Port-A-Cul tube. Please add to specimen [id number] Performed By: #### A CARMEN #### [facility] (DEFAULT) [address] [address] aPTT Coag (PPP) [Time] 92.8 s High [facility] Interpretation and review of laboratory results Abnormal [facility] aPTT Coag (Bld) [Time] 92.8 s High 24.0-34.3 [facility] Comment on above: Order Comment: After initiation a PTT should be checked every 6 hours from time of last dose change or, if dose has not changed, 6 hours after last PTT result posted.? The frequent monitoring should occur until PTT in goal range for two consecutive lab draws without dose changes at which time PTTs may be checked no less frequently than every 12 hours.? If dose requires a change, PTT should be monitored at least every 6 hours until titration is no longer indicated, then as directed above.? If PTT above goal range refer to medication administration instructions. Performed By: #### S URGP #### [facility] (DEFAULT) [address] [address] Portable XR Chest Viewson RADIOLOGY RADIOLOGY [facility] Radiology Study observation (narrative) [facility] Portable XR Chest ViewsOrder ed By: Chris Lora on 01-02-2025 [facility] Work Phone: XR CHEST 1 VIEW PORTABLEon 0 01-02-2025 XR CHEST 1 VIEW PORTABLE EXAM: XR CHEST 1 VIEW PORTABLE, 01/02/2025 10:27 AM COMPARISON: November 11, 2024 CLINICAL INDICATIONS: Cough with increasing WBC RELEVANT CLINICAL HISTORY: FINDINGS: (Adequate technique) Implanted Devices: Left upper extremity PICC with tip in the lower SVC. Thorax: The lungs are generally well-aerated with no consolidation. No significant pleural effusion. No pneumothorax. Heart size is within normal limits. No other change compared to the prior study. IMPRESSION: No consolidation. Normal [facility] BACTERIAL CULTURE AND DIRECT SMEAR, LESION, TISSUE, DEVICEOrdered By: Yolanda Moore on 01-01-2025 Bacteria identified Cx Nom (Unsp spec) NO GROWTH DAY [address] [facility] Bacteria identified Cx Nom ( Unsp spec)Ordered By: Yolanda Moore on 01-01-2025 Microscopic observation Other stain Nom (Unsp spec) Neutrophils, Rare [facility] Microscopic observation Other stain Nom (Unsp spec) No organisms seen [facility] CBC,PLATELETSon 01-01-2025 Erythrocyte distribution width (RBC) [Ratio] 19.9 % High 10.9 - 14.3 % [facility] Hematocrit (Bld) [Volume fraction] 25.7 % Low 39.6 - 48.8 % [facility] Hemoglobin (Bld) [Mass/Vol] 7.5 g/dL Low 13.4 - 16.8 g/dL [facility] Interpretation and review of laboratory results Abnormal [facility] MCH (RBC) [Entitic mass] 24.1 pg Low 26. 1 - 33.[address] [facility] MCHC (RBC) [Mass/Vol] 29.2 g/dL Low 31.9 - 36.5 g/dL [facility] MCV (RBC) [Entitic vol] 82.6 fL 79.0 - 94.[address] [facility] Platelet mean volume (Bld) [Entitic vol] 10.3 fL 8.7 - 12.[address] [facility] Platelets (Bld) [#/Vol] 408 10*3/uL High 146 - 337 K/uL [facility] RBC (Bld) [#/Vol] 3.11 10*6/uL Low [facility] WBC (Bld) [#/Vol] 14.58 10*3/uL High 3.73 - 10 .10 K/uL [facility] Hematocrit (Bld) [Volume fraction] 25.7 % Low 39.6-48.[address] [facility] Comment on above: Performed By: #### S URGP #### [facility] (DEFAULT) [address] [place] [address] Hemoglobin (Bld) [Mass/Vol] 7.5 g/dL Low 13.4-16.[address] [facility] Comment on above: Performed By: #### S URGP #### [facility] (DEFAULT) [address] [place] [address] MCV (RBC) [Entitic vol] 82.6 fL Normal 79.0-94.5 [facility] Comment on above: Performed By: #### S URGP #### [facility] (DEFAULT) [address] [place] [address] Mean Cell Hgb 24.1 pg Low 26.1-33.[address] [facility] Comment on above: Performed By: #### S URGP #### [facility] (DEFAULT) [address] [place] [address] Mean Cell Hgb Conc 29.2 g/dL Low 31.9-36.5 [facility] Comment on above: Performed By: #### S URGP #### [facility] (DEFAULT) [address] [place] [address] Platelet mean volume (Bld) [Entitic vol] 10.3 fL Normal 8.7-12.[address] [facility] Comment on above: Performed By: #### S URGP #### [facility] (DEFAULT) [address] [place] [address] Platelets (Bld) [#/Vol] 408 10*3/uL High 146-[address] [facility] Comment on above: Performed By: #### S URGP #### [facility] (DEFAULT) [address] [place] [address] RBC (Bld) [#/Vol] 3.11 10*6/uL Low 4.38-5.[address] [facility] Comment on above: Performed By: #### S URGP #### [facility] (DEFAULT) [address] [place] [address]83 RBC Distribution 19.9 % High 10.9-14.3 [facility] Comment on above: Performed By: #### S URGP #### [facility] (DEFAULT) [address] [place] [address] WBC (Bld) [#/Vol] 14.58 10*3/uL High 3.73-10.[address] [facility] Comment on above: Performed By: #### S URGP #### [facility] (DEFAULT) [address] [place] [address] CHEM 7 (LYTES,BUN,CREA,GLUC) on 01-01-2025 Anion gap [Moles/Vol] 11 mmol/L 7 - 17 mmol/L [facility] Chloride [Moles/Vol] 110 mmol/L High 98 - 10 8 mmol/L [facility] CO2 [Moles/Vol] 20 mmol/L Low 21 - 31 mmol/L [facility] Creatinine [Mass/Vol] 0.89 mg/dL 0.70 - 1.30 mg/dL [facility] eGFR, CKD-EPI, Male - PINF [facility] Glucose [Mass/Vol] 97 mg/dL 70 - 179 mg/dL [facility] Interpretation and review of laboratory results Abnormal [facility] Osmolality Calc [Osmolality] 292 [facility] Potassium [Moles/Vol] 4.3 mmol/L 3.5 - 5.0 mmol/L [facility] Sodium [Moles/Vol] 137 mmol/L 135 - 145 mmol/L [facility] Urea nitrogen [Mass/Vol] 24 mg/dL 7 - 25 mg/d L [facility] Urea nitrogen/Creatinine [Mass ratio] 27 mg/mg [facility] Anion gap [Moles/Vol] 11 mmol/L Normal 7-17 [facility] Comment on above: Performed By: #### X M #### [facility] (DEFAULT) [address] [place] [address] Chloride [Moles/Vol] 110 mmol/L High 98-[address] [facility] Comment on above: Performed By: #### X M #### [facility] (DEFAULT) [address] [address] CO2 [Moles/Vol] 20 mmol/L Low 21-31 [facility] Comment on above: Performed By: #### X M #### [facility] (DEFAULT) [address] [place] [address] Creatinine [Mass/Vol] 0.89 mg/dL Normal 0.70-1.30 [facility] Comment on above: Performed By: #### X M #### [facility] (DEFAULT) [address] [place] [address]16 eGFR, CKD-EPI, Male > Normal >=[address] [facility] Comment on above: Result Comment: Repo rted eGFR is based on the CKD-EPI 2020 equation using creatinine, age, and sex. Performed By: #### X M #### [facility] (DEFAULT) [address] [place] [address] Glucose [Mass/Vol] 97 mg/dL Normal Nonfastin -179 mg/dL; Fastin-[address] [facility] Comment on above: Performed By: #### X M #### [facility] (DEFAULT) [address] [place] [address]09 Osmolality [Osmolality] 292 mosm/kg Normal 278-[address] [facility] Comment on above: Performed By: #### X M #### [facility] (DEFAULT) [address] [place] [address] Potassium [Moles/Vol] 4.3 mmol/L Normal 3.5-5.0 [facility] Comment on above: Performed By: #### X M #### [facility] (DEFAULT) [address] [place] [address] Sodium [Moles/Vol] 137 mmol/L Normal 135-145 [facility] Comment on above: Performed By: #### X M #### [facility] (DEFAULT) [address] [place] [address] Urea nitrogen [Mass/Vol] 24 mg/dL Normal 7-[address] [facility] Comment on above: Performed By: #### X M #### [facility] (DEFAULT) [address] [place] [address] Urea nitrogen/Creatinine [Mass ratio] 27 mg/mg Normal [facility] Comment on above: Performed By: #### X M #### [facility] (DEFAULT) [address] [place] [address] GLUCOSE POCon 01-01-2025 Glucose [Mass/Vol] 107 mg/dL 70 - 179 mg/dL [facility] Glucose [Mass/Vol] 112 mg/dL 70 - 179 mg/dL [facility] Glucose [Mass/Vol] 104 mg/dL 70 - 179 mg/dL [facility] POC Sample Type [facility] Glucose [Mass/Vol] 103 mg/dL 70 - 179 mg/dL [facility] POC Sample Type [facility] IONIZED CALCIUM, WHOLE BLOOD on 01-01-2025 Calcium.ionized (Bld) [Moles/Vol] 4.4 mg/dL Low 4.60 - 5.30 mg/dL [facility] Interpretation and review of laboratory results Abnormal [facility] ICA 4.40 mg/dL Low 4.60-5.[address] [facility] Comment on above: Performed By: #### X M #### [facility] (DEFAULT) [address] [place] [address] MAGNESIUMon 01-01-2025 Magnesium [Mass/Vol] 2 mg/dL 1.6 - 2 .6 mg/dL [facility] Magnesium [Mass/Vol] 2.0 mg/dL Normal 1.6-2.[address] [facility] Comment on above: Performed By: #### X M #### [facility] (DEFAULT) [address] [place] [address] No Panel Informationon 01-01 POC Sample Type [facility] Interpretation and review of laboratory results Normal [facility] PHOSPHATE, INORGANICon 01-01 Phosphate [Mass/Vol] 3.1 mg/dL 2.2 - 4 .6 mg/dL [facility] Phosphorous 3.1 mg/dL Normal 2.2-4.[address] [facility] Comment on above: Performed By: #### X M #### [facility] (DEFAULT) [address] [place] [address] PT,INR,PTTon 01-01-2025 aPTT Coag (PPP) [Time] 102.1 s High [facility] INR Coag (Bld) [Relative time] 1.2 {INR} High 0.9 - 1.1 [facility] Interpretation and review of laboratory results Abnormal [facility] PT Coag (PPP) [Time] 15.1 s High [facility] aPTT Coag (Bld) [Time] 102.1 s High 24.0-34.3 [facility] Comment on above: Performed By: #### P TPTT ####[facility] (DEFAULT)[address] [place] [address] [place] [address] INR Coag (PPP) [Relative time] 1.2 {INR} High 0.9-1.[address] [facility] Comment on above: Performed By: #### P TPTT ####[facility] (DEFAULT)[address] [place] [address] PT Coag (PPP) [Time] 15.1 s High 11.9-14.[address] [facility] Comment on above: Performed By: #### P TPTT ####[facility] (DEFAULT)[address] [place] [id number] PTTOrdered By: Basil Pena on 01-01-2025 aPTT Coag (PPP) [Time] 43.3 s High [facility] Interpretation and review of laboratory results Abnormal [facility] PTTon 01-01-2025 aPTT Coag (Bld) [Time] 43.3 s High 24.0-34.3 [facility] Comment on above: Order Comment: After initiation a PTT should be checked every 6 hours from time of last dose change or, if dose has not changed, 6 hours after last PTT result posted.? The frequent monitoring should occur until PTT in goal range for two consecutive lab draws without dose changes at which time PTTs may be checked no less frequently than every 12 hours.? If dose requires a change, PTT should be monitored at least every 6 hours until titration is no longer indicated, then as directed above.? If PTT above goal range refer to medication administration instructions. Performed By: #### X M #### [facility] (DEFAULT) [address] [place] [address] aPTT Coag (PPP) [Time] 109.8 s High [facility] Interpretation and review of laboratory results Abnormal [facility] aPTT Coag (Bld) [Time] 109.8 s High 24.0-34.3 [facility] Comment on above: Order Comment: After initiation a PTT should be checked every 6 hours from time of last dose change or, if dose has not changed, 6 hours after last PTT result posted.? The frequent monitoring should occur until PTT in goal range for two consecutive lab draws without dose changes at which time PTTs may be checked no less frequently than every 12 hours.? If dose requires a change, PTT should be monitored at least every 6 hours until titration is no longer indicated, then as directed above.? If PTT above goal range refer to medication administration instructions. Performed By: #### X M #### [facility] (DEFAULT) [address] [place] [address] CBC,PLATELETSon 12-31-2024 Erythrocyte distribution width (RBC) [Ratio] 20.3 % High 10.9 - 14.3 % [facility] Hematocrit (Bld) [Volume fraction] 22.5 % Low 39.6 - 48.8 % [facility] Hemoglobin (Bld) [Mass/Vol] 6.6 g/dL Critically low 13.4 - 16.8 g/dL [facility] Interpretation and review of laboratory results Abnormal [facility] MCH (RBC) [Entitic mass] 23.9 pg Low 26. 1 - 33.[address] [facility] MCHC (RBC) [Mass/Vol] 29.3 g/dL Low 31.9 - 36.5 g/dL [facility] MCV (RBC) [Entitic vol] 81.5 fL 79.0 - 94.[address] [facility] Platelet mean volume (Bld) [Entitic vol] 10.5 fL 8.7 - 12.[address] [facility] Platelets (Bld) [#/Vol] 475 10*3/uL High 146 - 337 K/uL [facility] RBC (Bld) [#/Vol] 2.76 10*6/uL Low [facility] WBC (Bld) [#/Vol] 12.72 10*3/uL High 3.73 - 10 .10 K/uL [facility] Hematocrit (Bld) [Volume fraction] 22.5 % Low 39.6-48.[address] [facility] Comment on above: Performed By: #### C HM7, MGO, TRIG, IPB #### [facility] (DEFAULT) [address] [place] [address] Hemoglobin (Bld) [Mass/Vol] 6.6 g/dL Critically low 13.4-16.[address] [facility] Comment on above: Result Comment: This result has been called to Isrrael Judge RN by [email or web address] on 12/31/2024 06:12:57, and has been read back. Performed By: #### C HM7, MGO, TRIG, IPB #### [facility] (DEFAULT) [address] [place] [address]26 MCV (RBC) [Entitic vol] 81.5 fL Normal 79.0-94.[address] [facility] Comment on above: Performed By: #### C HM7, MGO, TRIG, IPB #### [facility] (DEFAULT) [address] [place] [address] 31437 Mean Cell Hgb 23.9 pg Low 26.1-33.[address] [facility] Comment on above: Performed By: #### C HM7, MGO, TRIG, IPB #### [facility] (DEFAULT) [address] [place] [address] 54020 Mean Cell Hgb Conc 29.3 g/dL Low 31.9-36.5 [facility] Comment on above: Performed By: #### C HM7, MGO, TRIG, IPB #### [facility] (DEFAULT) [address] [place] [address] 30744 Platelet mean volume (Bld) [Entitic vol] 10.5 fL Normal 8.7-12.[address] [facility] Comment on above: Performed By: #### C HM7, MGO, TRIG, IPB #### [facility] (DEFAULT) [address] [place] [address] 76303 Platelets (Bld) [#/Vol] 475 10*3/uL High 146-[address] [facility] Comment on above: Performed By: #### C HM7, MGO, TRIG, IPB #### [facility] (DEFAULT) [address] [place] [address] 05094 RBC (Bld) [#/Vol] 2.76 10*6/uL Low 4.38-5.[address] [facility] Comment on above: Performed By: #### C HM7, MGO, TRIG, IPB #### [facility] (DEFAULT) [address] [place] [address] 38381 RBC Distribution 20.3 % High 10.9-14.3 [facility] Comment on above: Performed By: #### C HM7, MGO, TRIG, IPB #### [facility] (DEFAULT) [address] [place] [address] 75901 WBC (Bld) [#/Vol] 12.72 10*3/uL High 3.73-10.[address] [facility] Comment on above: Performed By: #### C HM7, MGO, TRIG, IPB #### [facility] (DEFAULT) [address] [place] [address] 52461 CHEM 7 (LYTES,BUN,CREA,GLUC) on 12-31-2024 Anion gap [Moles/Vol] 13 mmol/L 7 - 17 mmol/L [facility] Chloride [Moles/Vol] 106 mmol/L 98 - 10 8 mmol/L [facility] CO2 [Moles/Vol] 24 mmol/L 21 - 31 mmol/L [facility] Creatinine [Mass/Vol] 0.88 mg/dL 0.70 - 1.30 mg/dL [facility] eGFR, CKD-EPI, Male - PINF [facility] Glucose [Mass/Vol] 139 mg/dL 70 - 179 mg/dL [facility] Interpretation and review of laboratory results Abnormal [facility] Osmolality Calc [Osmolality] 298 [facility] Potassium [Moles/Vol] 3.9 mmol/L 3.5 - 5.0 mmol/L [facility] Sodium [Moles/Vol] 139 mmol/L 135 - 145 mmol/L [facility] Urea nitrogen [Mass/Vol] 26 mg/dL High 7 - 25 mg/d L [facility] Urea nitrogen/Creatinine [Mass ratio] 30 mg/mg [facility] Anion gap [Moles/Vol] 13 mmol/L Normal 7-17 [facility] Comment on above: Performed By: #### H EMO #### [facility] (DEFAULT) [address] [place] [address] 56392 Chloride [Moles/Vol] 106 mmol/L Normal 98-[address] [facility] Comment on above: Performed By: #### H EMO #### [facility] (DEFAULT) [address] [place] [address] 85939 CO2 [Moles/Vol] 24 mmol/L Normal 21-31 [facility] Comment on above: Performed By: #### H EMO #### [facility] (DEFAULT) [address] [place] [address] 48847 Creatinine [Mass/Vol] 0.88 mg/dL Normal 0.70-1.30 [facility] Comment on above: Performed By: #### H EMO #### [facility] (DEFAULT) [address] [place] [address] 17579 eGFR, CKD-EPI, Male > Normal >=[address] [facility] Comment on above: Result Comment: Repo rted eGFR is based on the CKD-EPI 2020 equation using creatinine, age, and sex. Performed By: #### H EMOGC #### [facility] (DEFAULT) [address] [place] [address] 51119 Glucose [Mass/Vol] 139 mg/dL Normal Nonfastin -179 mg/dL; Fastin-[address] [facility] Comment on above: Performed By: #### H EMOGC #### [facility] (DEFAULT) [address] [place] [address] 62082 Osmolality [Osmolality] 298 mosm/kg Normal 278-[address] [facility] Comment on above: Performed By: #### H EMOKYLE #### [facility] (DEFAULT) [address] [place] [address] Potassium [Moles/Vol] 3.9 mmol/L Normal 3.5-5.0 [facility] Comment on above: Performed By: #### H EMOGC #### [facility] (DEFAULT) [address] [place] [address] Sodium [Moles/Vol] 139 mmol/L Normal 135-145 [facility] Comment on above: Performed By: #### H EMOGC #### [facility] (DEFAULT) [address] [place] [address] Urea nitrogen [Mass/Vol] 26 mg/dL High 7-[address] [facility] Comment on above: Performed By: #### H EMOGC #### [facility] (DEFAULT) [address] [place] [address] Urea nitrogen/Creatinine [Mass ratio] 30 mg/mg Normal [facility] Comment on above: Performed By: #### H EMO #### [facility] (DEFAULT) [address] [place] [address] 94135 GLUCOSE POCon 12-31-2024 Glucose [Mass/Vol] 115 mg/dL 70 - 179 mg/dL [facility] POC Sample Type [facility] Glucose [Mass/Vol] 108 mg/dL 70 - 179 mg/dL [facility] POC Sample Type [facility] Glucose [Mass/Vol] 107 mg/dL 70 - 179 mg/dL [facility] POC Sample Type [facility] IONIZED CALCIUM, WHOLE BLOOD on 12-31-2024 Calcium.ionized (Bld) [Moles/Vol] 4.57 mg/dL Low 4.60 - 5.30 mg/dL [facility] Interpretation and review of laboratory results Abnormal [facility] ICA 4.57 mg/dL Low 4.60-5.[address] [facility] Comment on above: Performed By: #### S URGP #### [facility] (DEFAULT) [address] [place] [address] MAGNESIUMon 12-31-2024 Magnesium [Mass/Vol] 2 mg/dL 1.6 - 2 .6 mg/dL [facility] Magnesium [Mass/Vol] 2.0 mg/dL Normal 1.6-2.[address] [facility] Comment on above: Performed By: #### H EMOGC #### [facility] (DEFAULT) [address] [place] [address] No Panel InformationOrdered By: System Discharge on 12-31-2024 [facility] No Panel Informationon 12-31 Interpretation and review of laboratory results Normal [facility] PHOSPHATE, INORGANICon 12-31 Phosphate [Mass/Vol] 3.5 mg/dL 2.2 - 4 .6 mg/dL [facility] Phosphorous 3.5 mg/dL Normal 2.2-4.[address] [facility] Comment on above: Performed By: #### H EMO #### [facility] (DEFAULT) [address] [place] [address] PREPARE TO TRANSFUSE RED BLO OD CELLSon 12-31-2024 ABO/RH(D) TYPE Positive [facility] BLOOD COMPONENT TYPE Red Cells, Leukoreduced [facility] EXPIRATION DATE [id number] [facility] Product ABO/RH(D) Positive [facility] Product ABO/RH(D) NUMBER 5100 [facility] PRODUCT CODE [id number] [facility] UNIT NUMBER [id number] [facility] UNIT STATUS transfused [facility] PT,INR,PTTOrdered By: Chris Rios on 06-13-2025 aPTT Coag (PPP) [Time] 89.6 s High [facility] INR Coag (Bld) [Relative time] 1.2 {INR} High 0.9 - 1.1 [facility] Interpretation and review of laboratory results Abnormal [facility] PT Coag (PPP) [Time] 15 s High [facility] PT,INR,PTTon 12-31-2024 aPTT Coag (Bld) [Time] 89.6 s High 24.0-34.3 [facility] Comment on above: Performed By: #### S URGP #### [facility] (DEFAULT) [address] [place] [address] 21403 INR Coag (PPP) [Relative time] 1.2 {INR} High 0.9-1.[address] [facility] Comment on above: Performed By: #### S URGP #### [facility] (DEFAULT) [address] [place] [address] 99463 PT Coag (PPP) [Time] 15.0 s High 11.9-14.[address] [facility] Comment on above: Performed By: #### S URGP #### [facility] (DEFAULT) [address] [place] [address] 51219 PTTOrdered By: Jayden Hope on 12-31-2024 aPTT Coag (PPP) [Time] 122.2 s High [facility] Interpretation and review of laboratory results Abnormal [facility] PTTon 12-31-2024 aPTT Coag (Bld) [Time] 122.2 s High 24.0-34.3 [facility] Comment on above: Order Comment: After initiation a PTT should be checked every 6 hours from time of last dose change or, if dose has not changed, 6 hours after last PTT result posted.? The frequent monitoring should occur until PTT in goal range for two consecutive lab draws without dose changes at which time PTTs may be checked no less frequently than every 12 hours.? If dose requires a change, PTT should be monitored at least every 6 hours until titration is no longer indicated, then as directed above.? If PTT above goal range refer to medication administration instructions. Performed By: #### H EMO #### [facility] (DEFAULT) [address] [place] [address] 16929 aPTT Coag (PPP) [Time] 63.9 s High [facility] Interpretation and review of laboratory results Abnormal [facility] aPTT Coag (Bld) [Time] 63.9 s High 24.0-34.3 [facility] Comment on above: Order Comment: After initiation a PTT should be checked every 6 hours from time of last dose change or, if dose has not changed, 6 hours after last PTT result posted.? The frequent monitoring should occur until PTT in goal range for two consecutive lab draws without dose changes at which time PTTs may be checked no less frequently than every 12 hours.? If dose requires a change, PTT should be monitored at least every 6 hours until titration is no longer indicated, then as directed above.? If PTT above goal range refer to medication administration instructions. Performed By: #### X M #### [facility] (DEFAULT) [address] [address] ANAEROBE CULTUREon Bacteria identified Cx Nom (Unsp spec) No anaerobic growth Normal [facility] Comment on above: Order Comment: Colle ct fluids or tissues in a sterile container. If collecting swabs, must be collected in a Port-A-Cul tube. Please add to specimen [id number] Performed By: #### A CARMEN #### [facility] (DEFAULT) [address] [place] [address] 17192 BACTERIAL CULTURE AND DIRECT SMEAR, LESION, TISSUE, DEVICEon 12-30-2024 Bacteria identified Cx Nom (Unsp spec) NO GROWTH DAY 2 OF [address] [facility] Comment on above: Performed By: #### X M #### [facility] (DEFAULT) [address] [place] [address] 33026 Microscopic observation Gram stain Nom (Unsp spec) Normal [facility] Comment on above: Result Comment: Neut rophils, Rare No organisms seen Performed By: #### X M #### [facility] (DEFAULT) [address] [place] [address] CBC,PLATELETSon 12-30-2024 Erythrocyte distribution width (RBC) [Ratio] 20 % High 10.9 - 14.3 % [facility] Hematocrit (Bld) [Volume fraction] 24.8 % Low 39.6 - 48.8 % [facility] Hemoglobin (Bld) [Mass/Vol] 7.5 g/dL Low 13.4 - 16.8 g/dL [facility] Interpretation and review of laboratory results Abnormal [facility] MCH (RBC) [Entitic mass] 24.4 pg Low 26. 1 - 33.[address] [facility] MCHC (RBC) [Mass/Vol] 30.2 g/dL Low 31.9 - 36.5 g/dL [facility] MCV (RBC) [Entitic vol] 80.5 fL 79.0 - 94.[address] [facility] Platelet mean volume (Bld) [Entitic vol] 10.3 fL 8.7 - 12.[address] [facility] Platelets (Bld) [#/Vol] 544 10*3/uL High 146 - 337 K/uL [facility] RBC (Bld) [#/Vol] 3.08 10*6/uL Low [facility] WBC (Bld) [#/Vol] 13.36 10*3/uL High 3.73 - 10 .10 K/uL [facility] CHEM 7 (LYTES,BUN,CREA,GLUC) on 12-30-2024 Anion gap [Moles/Vol] 13 mmol/L 7 - 17 mmol/L [facility] Chloride [Moles/Vol] 104 mmol/L 98 - 10 8 mmol/L [facility] CO2 [Moles/Vol] 27 mmol/L 21 - 31 mmol/L [facility] Creatinine [Mass/Vol] 0.92 mg/dL 0.70 - 1.30 mg/dL [facility] eGFR, CKD-EPI, Male 89 - PINF [facility] Glucose [Mass/Vol] 102 mg/dL 70 - 179 mg/dL [facility] Osmolality Calc [Osmolality] 297 [facility] Potassium [Moles/Vol] 3.7 mmol/L 3.5 - 5.0 mmol/L [facility] Sodium [Moles/Vol] 140 mmol/L 135 - 145 mmol/L [facility] Urea nitrogen [Mass/Vol] 25 mg/dL 7 - 25 mg/d L [facility] Urea nitrogen/Creatinine [Mass ratio] 27 mg/mg [facility] DRAINAGE BY CATHETER PERITON EAL/RETROPERITONEAL PERCUTANEOUS W/ IMAGINon 12-30-2024 DRAINAGE BY CATHETER PERITONEAL/RETROPERITONE AL PERCUTANEOUS W/ IMAGIN EXAM: IR DRAINAGE BY CATHETER PERITONEAL/RETROPERIT GARCIA PERCUTANEOUS W/ IMAGIN, 12/30/2024 16:22 PM CLINICAL INDICATIONS: Abdominal collection. B99.9:Infection MEDICATIONS: 4:01 PM 12/30/24 midazolam (VERSED) injection 10 mg Ordered and Given 0.5 mg Given Rate: 0 Route: Intravenous; 4:01 PM 12/30/24 fentaNYL (SUBLIMAZE) injection 300 mcg Ordered and Given 25 mcg Given Rate: 0 Route: Intravenous; 4:08 PM 12/30/24 midazolam (VERSED) injection 10 mg Given 0.5 mg Given Rate: 0 Route: Intravenous; 4:08 PM 12/30/24 fentaNYL (SUBLIMAZE) injection 300 mcg Given 25 mcg Given Rate: 0 Route: Intravenous; OPERATORS: Oc Smith M.D. (Attending) and Isak Thompson DO (Resident) CONSENT: Following discussion of the risks, benefits and alternatives of the procedure, written informed consent was obtained. SEDATION: I performed Moderate Sedation which included the presence of a nurse that assisted in monitoring the patient's level of consciousness and physiologic status. After administration of sedative medication(s), I spent 15 minutes of continuous mwyw-bp-eley time with the patient. TIME OUT: Prior to the procedure a time out was performed in the presence of the patient and all personnel involved in this case. The patient identity, procedure type, procedure side/site, and allergies were verified. TECHNIQUE: Position: The patient was placed on the CT table in supine position, and initial axial images through the region of interest in abdomen were obtained. A radiopaque marker was then placed, and the patient rescanned to confirm position. Preparation: Time out was performed. The patient was then prepped and draped in sterile fashion. Local anesthesia was provided using 2% Lidocaine. Procedure/Findings: A 5Fx7cm Cook Yueh trocar needle was advanced using CT fluoroscopic guidance into the collection. An aspirate was obtained from the collection and sent to the laboratory for culture. A guidewire was then passed through the needle, and the tract was dilated over the wire. An 8 Salvadorean drain was then placed over the wire, and additional images were obtained to confirm positioning of the catheter within the collection. The catheter was sutured to the skin with a single stitch, and connected to a straight drain. Post-Procedure: Post-procedure images demonstrate the pigtail of the catheter within the collection. The patient tolerated the procedure well, with no immediate complications. IMPRESSION: Successful CT-guided placement of an 8-Salvadorean drain into an abdominal collection. Oc Smith M.D. was in the room and participated during all ngo portions of this procedure. Table formatting from the original result was not included. TabSyss TabSyss Time Date Event Details User 3:37 PM 12/30/24 Timeout: Sign-in Signed by Pamela Laboy RN at 12/30/2024 3:37 PM KM 3:59 PM 12/30/24 Timeout: TimeOut Signed by Pamela Laboy RN at 12/30/2024 3:59 PM KM 4:01 PM 12/30/24 midazolam (VERSED) injection 10 mg Ordered and Given 0.5 mg Given Rate: 0 Route: Intravenous KM 4:01 PM 12/30/24 fentaNYL (SUBLIMAZE) injection 300 mcg Ordered and Given 25 mcg Given Rate: 0 Route: Intravenous KM 4:08 PM 12/30/24 midazolam (VERSED) injection 10 mg Given 0.5 mg Given Rate: 0 Route: Intravenous KM 4:08 PM 12/30/24 fentaNYL (SUBLIMAZE) injection 300 mcg Given 25 mcg Given Rate: 0 Route: Intravenous KM 4:13 PM 12/30/24 Timeout: Sign-out Signed by Pamela Laboy RN at 12/30/2024 4:24 PM KM Physician Physician Time Date Event Details User 3:31 PM 12/30/24 Oc Smith MD - Arrived Role: Primary Service: Interventional Radiology (Panel 1) 3:37 PM 12/30/24 Timeout: Sign-in Signed by Pamela Laboy RN at 12/30/2024 3:37 PM KM 3:59 PM 12/30/24 Timeout: TimeOut Signed by Pamela Laboy RN at 12/30/2024 3:59 PM KM 4:13 PM 12/30/24 Oc Smith MD - Departed Role: Primary Service: Interventional Radiology (Panel 1) 4:13 PM 12/30/24 Timeout: Sign-out Signed by Pamela Laboy RN at 12/30/2024 4:24 PM KM Normal [facility] RADIOLOGY RADIOLOGY [facility] Rad[facility] 12-31-19 [facility] GLUCOSE POCon 12-30-2024 Glucose [Mass/Vol] 113 mg/dL 70 - 179 mg/dL [facility] POC Sample Type [facility] Glucose [Mass/Vol] 126 mg/dL 70 - 179 mg/dL [facility] POC Sample Type [facility] Glucose [Mass/Vol] 137 mg/dL 70 - 179 mg/dL [facility] POC Sample Type [facility] IONIZED CALCIUM, WHOLE BLOOD Ordered By: Andres Ramsey on 12-30-2024 Calcium.ionized (Bld) [Moles/Vol] 4.53 mg/dL Low 4.60 - 5.30 mg/dL [facility] Interpretation and review of laboratory results Abnormal [facility] MAGNESIUMon 12-30-2024 Magnesium [Mass/Vol] 2.5 mg/dL 1.6 - 2 .6 mg/dL [facility] No Panel Informationon 12-30 Interpretation and review of laboratory results Normal [facility] PHOSPHATE, INORGANICon 12-30 Phosphate [Mass/Vol] 3.3 mg/dL 2.2 - 4 .6 mg/dL [facility] PT,INR,PTTon 12-30-2024 aPTT Coag (PPP) [Time] 119.6 s High [facility] INR Coag (Bld) [Relative time] 1.2 {INR} High 0.9 - 1.1 [facility] Interpretation and review of laboratory results Abnormal [facility] PT Coag (PPP) [Time] 14.9 s High [facility] PTTOrdered By: Michelle clarke on 12-30-2024 aPTT Coag (PPP) [Time] 66.2 s High [facility] Interpretation and review of laboratory results Abnormal [facility] PTTon 12-30-2024 aPTT Coag (Bld) [Time] 66.2 s High 24.0-34.3 [facility] Comment on above: Order Comment: After initiation a PTT should be checked every 6 hours from time of last dose change or, if dose has not changed, 6 hours after last PTT result posted.? The frequent monitoring should occur until PTT in goal range for two consecutive lab draws without dose changes at which time PTTs may be checked no less frequently than every 12 hours.? If dose requires a change, PTT should be monitored at least every 6 hours until titration is no longer indicated, then as directed above.? If PTT above goal range refer to medication administration instructions. Performed By: #### P TT ####[facility] (DEFAULT)[address] [place] [address] CBC,PLATELETSon 12-29-2024 Hematocrit (Bld) [Volume fraction] 24.8 % Low 39.6-48.[address] [facility] Comment on above: Performed By: #### G AS5L #### [facility] (DEFAULT) [address] [place] [address]275 Hemoglobin (Bld) [Mass/Vol] 7.5 g/dL Low 13.4-16.[address] [facility] Comment on above: Performed By: #### G AS5L #### [facility] (DEFAULT) [address] [place] [address] 48664 MCV (RBC) [Entitic vol] 80.5 fL Normal 79.0-94.[address] [facility] Comment on above: Performed By: #### G AS5L #### [facility] (DEFAULT) [address] [place] [address] 80694 Mean Cell Hgb 24.4 pg Low 26.1-33.[address] [facility] Comment on above: Performed By: #### G AS5L #### [facility] (DEFAULT) [address] [place] [address] 65713 Mean Cell Hgb Conc 30.2 g/dL Low 31.9-36.5 [facility] Comment on above: Performed By: #### G AS5L #### [facility] [facility] (DEFAULT) [address] [place] [address] 84641 Platelet mean volume (Bld) [Entitic vol] 10.3 fL Normal 8.7-12.[address] [facility] Comment on above: Performed By: #### G AS5L #### [facility] (DEFAULT) [address] [place] [address] 26007 Platelets (Bld) [#/Vol] 544 10*3/uL High 146-[address] [facility] Comment on above: Performed By: #### G AS5L #### [facility] (DEFAULT) [address] [place] [address] 56248 RBC (Bld) [#/Vol] 3.08 10*6/uL Low 4.38-5.[address] [facility] Comment on above: Performed By: #### G AS5L #### [facility] (DEFAULT) [address] [place] [address] 77008 RBC Distribution 20.0 % High 10.9-14.3 [facility] Comment on above: Performed By: #### G AS5L #### [facility] (DEFAULT) [address] [place] [address] 97950 WBC (Bld) [#/Vol] 13.36 10*3/uL High 3.73-10.[address] [facility] Comment on above: Performed By: #### G AS5L #### [facility] (DEFAULT) [address] [place] [address] 14215 Erythrocyte distribution width (RBC) [Ratio] 20 % High 10.9 - 14.3 % [facility] Hematocrit (Bld) [Volume fraction] 24.2 % Low 39.6 - 48.8 % [facility] Hemoglobin (Bld) [Mass/Vol] 7.2 g/dL Low 13.4 - 16.8 g/dL [facility] Interpretation and review of laboratory results Abnormal [facility] MCH (RBC) [Entitic mass] 24.3 pg Low 26. 1 - 33.[address] [facility] MCHC (RBC) [Mass/Vol] 29.8 g/dL Low 31.9 - 36.5 g/dL [facility] MCV (RBC) [Entitic vol] 81.8 fL 79.0 - 94.[address] [facility] Platelet mean volume (Bld) [Entitic vol] 10.5 fL 8.7 - 12.[address] [facility] Platelets (Bld) [#/Vol] 476 10*3/uL High 146 - 337 K/uL [facility] RBC (Bld) [#/Vol] 2.96 10*6/uL Low [facility] WBC (Bld) [#/Vol] 12.91 10*3/uL High 3.73 - 10 .10 K/uL [facility] Hematocrit (Bld) [Volume fraction] 24.2 % Low 39.6-48.[address] [facility] Comment on above: Performed By: #### S URGP #### [facility] (DEFAULT) [address] [place] [address] 18477 Hemoglobin (Bld) [Mass/Vol] 7.2 g/dL Low 13.4-16.[address] [facility] Comment on above: Performed By: #### S URGP #### [facility] (DEFAULT) [address] [place] [address] 11383 MCV (RBC) [Entitic vol] 81.8 fL Normal 79.0-94.[address] [facility] Comment on above: Performed By: #### S URGP #### [facility] (DEFAULT) [address] [place] [address] 51085 Mean Cell Hgb 24.3 pg Low 26.1-33.[address] [facility] Comment on above: Performed By: #### S URGP #### [facility] (DEFAULT) [address] [place] [address] 64619 Mean Cell Hgb Conc 29.8 g/dL Low 31.9-36.5 [facility] Comment on above: Performed By: #### S URGP #### [facility] (DEFAULT) [address] [place] [address] 07178 Platelet mean volume (Bld) [Entitic vol] 10.5 fL Normal 8.7-12.[address] [facility] Comment on above: Performed By: #### S URGP #### [facility] (DEFAULT) [address] [place] [address] 36329 Platelets (Bld) [#/Vol] 476 10*3/uL High 146-[address] [facility] Comment on above: Performed By: #### S URGP #### [facility] (DEFAULT) [address] [place] [address] 44781 RBC (Bld) [#/Vol] 2.96 10*6/uL Low 4.38-5.[address] [facility] Comment on above: Performed By: #### S URGP #### [facility] (DEFAULT) [address] [address] RBC Distribution 20.0 % High 10.9-14.3 [facility] Comment on above: Performed By: #### S URGP #### [facility] (DEFAULT) [address] [address] WBC (Bld) [#/Vol] 12.91 10*3/uL High 3.73-10.[address] [facility] Comment on above: Performed By: #### S URGP #### [facility] (DEFAULT) [address] [place] [address] 57545 CHEM 7 (LYTES,BUN,CREA,GLUC) on 12-29-2024 Anion gap [Moles/Vol] 13 mmol/L Normal 7-17 [facility] Comment on above: Performed By: #### X M #### [facility] (DEFAULT) [address] [place] [address] 66601 Chloride [Moles/Vol] 104 mmol/L Normal 98-[address] [facility] Comment on above: Performed By: #### X M #### [facility] (DEFAULT) [address] [place] [address] 78150 CO2 [Moles/Vol] 27 mmol/L Normal 21-31 [facility] Comment on above: Performed By: #### X M #### [facility] (DEFAULT) [address] [place] [address] 83790 Creatinine [Mass/Vol] 0.92 mg/dL Normal 0.70-1.30 [facility] Comment on above: Performed By: #### X M #### [facility] (DEFAULT) [address] [place] [address] 74953 GFR/1.73 sq M.predicted among non-blacks MDRD (S/P/Bld) [Vol rate/Area] 89 mL/min/{1.73_m2} Normal >=[address] [facility] Comment on above: Result Comment: Repo rted eGFR is based on the CKD-EPI 2020 equation using creatinine, age, and sex. Performed By: #### X M #### [facility] (DEFAULT) [address] [place] [address] 44700 Glucose [Mass/Vol] 102 mg/dL Normal Nonfastin -179 mg/dL; Fastin-[address] [facility] Comment on above: Performed By: #### X M #### [facility] (DEFAULT) [address] [place] [address] 10272 Osmolality [Osmolality] 297 mosm/kg Normal 278-[address] [facility] Comment on above: Performed By: #### X M #### [facility] (DEFAULT) [address] [place] [address] 03255 Potassium [Moles/Vol] 3.7 mmol/L Normal 3.5-5.0 [facility] Comment on above: Performed By: #### X M #### [facility] (DEFAULT) [address] [place] [address] 33594 Sodium [Moles/Vol] 140 mmol/L Normal 135-145 [facility] Comment on above: Performed By: #### X M #### [facility] (DEFAULT) [address] [place] [address] 82874 Urea nitrogen [Mass/Vol] 25 mg/dL Normal 7-[address] [facility] Comment on above: Performed By: #### X M #### [facility] (DEFAULT) [address] [place] [address] 20537 Urea nitrogen/Creatinine [Mass ratio] 27 mg/mg Normal [facility] Comment on above: Performed By: #### X M #### [facility] (DEFAULT) [address] [place] [address] 23804 Anion gap [Moles/Vol] 13 mmol/L 7 - 17 mmol/L [facility] Chloride [Moles/Vol] 105 mmol/L 98 - 10 8 mmol/L [facility] CO2 [Moles/Vol] 25 mmol/L 21 - 31 mmol/L [facility] Creatinine [Mass/Vol] 0.95 mg/dL 0.70 - 1.30 mg/dL [facility] eGFR, CKD-EPI, Male 86 - PINF [facility] Glucose [Mass/Vol] 138 mg/dL 70 - 179 mg/dL [facility] Osmolality Calc [Osmolality] 296 [facility] Potassium [Moles/Vol] 3.8 mmol/L 3.5 - 5.0 mmol/L [facility] Sodium [Moles/Vol] 139 mmol/L 135 - 145 mmol/L [facility] Urea nitrogen [Mass/Vol] 21 mg/dL 7 - 25 mg/d L [facility] Urea nitrogen/Creatinine [Mass ratio] 22 mg/mg [facility] Anion gap [Moles/Vol] 13 mmol/L Normal 7-17 [facility] Comment on above: Performed By: #### X M #### [facility] (DEFAULT) [address] [place] [address] 14221 Chloride [Moles/Vol] 105 mmol/L Normal 98-[address] [facility] Comment on above: Performed By: #### X M #### [facility] (DEFAULT) [address] [place] [address] CO2 [Moles/Vol] 25 mmol/L Normal 21-31 [facility] Comment on above: Performed By: #### X M #### [facility] (DEFAULT) [address] [place] [address] Creatinine [Mass/Vol] 0.95 mg/dL Normal 0.70-1.30 [facility] Comment on above: Performed By: #### X M #### [facility] (DEFAULT) [address] [place] [address] GFR/1.73 sq M.predicted among non-blacks MDRD (S/P/Bld) [Vol rate/Area] 86 mL/min/{1.73_m2} Normal >=[address] [facility] Comment on above: Result Comment: Repo rted eGFR is based on the CKD-EPI 2020 equation using creatinine, age, and sex. Performed By: #### X M #### [facility] (DEFAULT) [address] [place] [address] 45982 Glucose [Mass/Vol] 138 mg/dL Normal Nonfastin -179 mg/dL; Fastin-[address] [facility] Comment on above: Performed By: #### X M #### [facility] (DEFAULT) [address] [place] [address] 41773 Osmolality [Osmolality] 296 mosm/kg Normal 278-[address] [facility] Comment on above: Performed By: #### X M #### [facility] (DEFAULT) [address] [place] [address] 37715 Potassium [Moles/Vol] 3.8 mmol/L Normal 3.5-5.0 [facility] Comment on above: Performed By: #### X M #### [facility] (DEFAULT) [address] [place] [address] 35398 Sodium [Moles/Vol] 139 mmol/L Normal 135-145 [facility] Comment on above: Performed By: #### X M #### [facility] (DEFAULT) [address] [place] [address] 42177 Urea nitrogen [Mass/Vol] 21 mg/dL Normal 7-[address] [facility] Comment on above: Performed By: #### X M #### [facility] (DEFAULT) [address] [place] [address] 76851 Urea nitrogen/Creatinine [Mass ratio] 22 mg/mg Normal [facility] Comment on above: Performed By: #### X M #### [facility] (DEFAULT) [address] [place] [address] ABDOMEN/PELVIS WITH CONTR Madhu 12-29-2024 CT ABDOMEN/PELVIS WITH CONTRAST EXAM: CT ABDOMEN/PELVIS WITH CONTRAST, 12/29/2024 15:03 PM COMPARISON: CT abdomen pelvis dated December 13, 2024. CLINICAL INDICATIONS: assess for intra abominal abscess. IV contrast TECHNIQUE: CT scanning was performed of the abdomen and pelvis following the administration of intravenous contrast. PROTOCOL: Standard. CONTRAST: iohexol (OMNIPAQUE) 350 MG/ML injection 1-171 mL; Route of Administration: Intravenous; Dose: 110 mL. FINDINGS: Lung Bases: Small bilateral pleural effusions and compressive basilar atelectasis. Liver: Normal. Gallbladder: Normal. Bile Ducts: Normal in caliber. Spleen: Normal. Pancreas: Normal. Adrenals: Normal. Right Kidney: Normal size and enhancement without hydronephrosis. Left Kidney: Normal size and enhancement without hydronephrosis. Gastrointestinal: Normal stomach. Enteric tube terminates within the distal gastric body. 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 No evidence of anastomotic dehiscence or leak. Surgical drain extends through the left mid abdomen terminating in the right lower quadrant. Multiple dilated inflamed small bowel loops scattered throughout the abdomen. Moderate edema and inflammation scattered throughout the abdomen with multiple peripheral enhancing fluid collections. Notable collections described below: * Dominant collection in the anterior right mid abdomen measuring 7 x 4 x 2.8 cm (series 2, image 58 and series 4, image 30). * Partially organized peripheral enhancing mesenteric fluid collections measuring up to 3.2 x 4.8 x 3.6 cm (series 6, image 135). Peritoneum/retroperit oneum: Mild ascites. Fluid collections described above. Minimal pneumoperitoneum. Lymph nodes: No abdominopelvic adenopathy. Vasculature: Nonaneurysmal abdominal aorta with moderate calcified atherosclerosis. Patent portal, splenic, and superior mesenteric veins. Bladder: Moderate distention with internal air likely related to recent catheterization. Pelvic Organs: Normal. Body Wall: Ventral abdominal wall surgical changes. Bones: No suspicious osseous lesions. IMPRESSION: Moderate abdominal inflammation with multiple peripheral enhancing fluid collections concerning for abscesses. Surgical drain does not traverse or terminate within the fluid collections. No apparent anastomotic dehiscence or perforation. Reactive small bowel inflammation and ileus. Normal [facility] CT Abdomen and Pelvis W cont rast Stone 12-29-2024 RADIOLOGY RADIOLOGY [facility] Radiology Study observation (narrative) [facility] ECHOCARDIOGRAM LIMITED/FOLLO WUPon 12-29-2024 ECHOCARDIOGRAM LIMITED/FOLLOWUP Normal left ventricular size. Global LV dysfunction. EF 35%. Normal right ventricular size and function. No significant valvular disease identified. Table formatting from the original result was not included. Images from the original result were not included. [facility] Facility [facility] Patient Information Patient Name Conrad Oconnell Legal Sex Male Indication for Exam Priority: Routine Dx: Atrial fibrillation, unspecified type [I48.91 (ICD-10-CM)] Order Question Reason for Exam worsening A-fib Interpretation Summary Result History is available. Normal left ventricular size. Global LV dysfunction. EF 35%. Normal right ventricular size and function. No significant valvular disease identified. Findings Left Ventricle Chamber size is normal. Normal wall thickness. Global hypokinesis. Abnormal septal motion consistent with left bundle branch block. Ejection fraction is moderately reduced (30 - 35%). Diastolic function could not be determined. Right Ventricle Chamber size is normal. Systolic function is normal. Left Atrium Chamber size is normal. Right Atrium Chamber size is normal. Septum The atrial septum is normal. Mitral Valve Normal appearing leaflets. Leaflet mobility is normal. No regurgitation. No valve stenosis. Aortic Valve Trileaflet valve. Leaflet mobility is normal. No regurgitation. No stenosis. Tricuspid Valve Normal leaflets. Leaflet mobility is normal. Trace regurgitation. No stenosis. Pulmonic Valve Trace regurgitation. No stenosis. Aorta No dilation to extent seen. Pericardium No pericardial effusion. IVC/SVC The inferior vena cava is normal in size. The inferior vena cava structure is normal. Reading Providers Reading Role Read Date Jonatan Rogers MD [facility] [place] 12/29/2024 Left Heart Measurements LV - Systole LVIDD 4.54 cm IVS 0.8 cm LVIDS 3.75 cm PW 0.99 cm LV RWT 0.44 LV Mass Index 61.4 g/m2 LV EDV BP 155 mL LV ESV BP 99 mL BP EF 36 % LV stroke volume BP (ml) 56 mL LV stroke volume index BP 25.69 mL/m2 LV - Diastole MV pk E faud 1.08 m/s e' septal pk fuad 0.09 m/s e' lateral pk fuad 0.17 m/s Avg e' pk fuad 0.13 m/s E/e' septal ratio 12.05 E/e' lateral ratio 6.55 Avg E/e' ratio 9.3 Doppler Measurements - Mitral Valve Stenosis MV pk E fuad 1.08 m/s PISA-MS MV pk E fuad 1.08 m/s Vitals Height Weight BSA (Calculated - sq m) BP Pulse 1.753 m (5' 9.02) 103.4 kg (227 lb 15.3 oz) 2.18 m2 131/63 118 Performing Staff Ngoc Shi RDCS Study Details A limited echocardiography study (including limited spectral Doppler and microbubbles) was performed. Contrast indication: evaluation of left ventricle contiguous segments and evaluation of left ventricle apex. Imaging system used: Tapomat. Indications Indications for study: atrial fib / atrial flutter. Exam Details Performed Procedure Technologist Supporting Staff Performing Physician ECHOCARDIOGRAM LIMITED/FOLLOWUP STUDY DETAILS BILLING Ngoc Shi RDCS Appointment Date/Status Modality Department 12/29/2024 Arrived ECHO TESTING, [facility] ECHOCARDIOGRAPHY ROSS Begin Exam End Exam Begin Exam Questionnaires 12/29/2024 10:44 AM 12/29/2024 11:21 AM [facility] CARD TIMEOUT CHECKLIST Signed at 1138 EDT External Results Report There is an external results report available. Patient Release Status: This result is viewable by the patient in [employer] [facility] ECHOCARDIOGRAM LIMITED/FOLLOWUP: Patient Communication Released Not seen ABN Associated with this Order There is no ABN associated with this order. Normal [facility] GLUCOSE POCon 12-29-2024 Glucose [Mass/Vol] 126 mg/dL 70 - 179 mg/dL [facility] POC Sample Type [facility] Glucose [Mass/Vol] 128 mg/dL 70 - 179 mg/dL [facility] POC Sample Type [facility] Glucose [Mass/Vol] 135 mg/dL 70 - 179 mg/dL [facility] POC Sample Type [facility] Glucose [Mass/Vol] 124 mg/dL 70 - 179 mg/dL [facility] POC Sample Type [facility] Glucose [Mass/Vol] 151 mg/dL 70 - 179 mg/dL [facility] POC Sample Type [facility] IONIZED CALCIUM, WHOLE BLOOD on 12-29-2024 ICA 4.53 mg/dL Low 4.60-5.[address] [facility] Comment on above: Performed By: #### A CARMEN #### [facility] (DEFAULT) [address] [place] [address] 98186 ICA 4.67 mg/dL Normal 4.60-5.[address] [facility] Comment on above: Performed By: #### I CA ####[facility] (DEFAULT)[address] [place] [address] 65594 IONIZED CALCIUM, WHOLE BLOOD Ordered By: Elaine Castillo on 12-29-2024 Calcium.ionized (Bld) [Moles/Vol] 4.67 mg/dL 4.60 - 5.30 mg/dL [facility] Interpretation and review of laboratory results Normal [facility] MAGNESIUMon 12-29-2024 Magnesium [Mass/Vol] 2.5 mg/dL Normal 1.6-2.[address] [facility] Comment on above: Performed By: #### X M #### [facility] (DEFAULT) [address] [place] [address] 86789 Interpretation and review of laboratory results Abnormal [facility] Magnesium [Mass/Vol] 2.9 mg/dL High 1.6 - 2 .6 mg/dL [facility] Magnesium [Mass/Vol] 2.9 mg/dL High 1.6-2.[address] [facility] Comment on above: Performed By: #### C HM7, MGO, TRIG, IPB #### [facility] (DEFAULT) [address] [place] [address] 78115 No Panel Informationon 12-29 Interpretation and review of laboratory results Normal [facility] PHOSPHATE, INORGANICon 12-29 Phosphorous 3.3 mg/dL Normal 2.2-4.[address] [facility] Comment on above: Performed By: #### X M #### [facility] (DEFAULT) [address] [place] [address] 25595 Phosphate [Mass/Vol] 2.8 mg/dL 2.2 - 4 .6 mg/dL [facility] Phosphorous 2.8 mg/dL Normal 2.2-4.[address] [facility] Comment on above: Performed By: #### X M #### [facility] (DEFAULT) [address] [place] [address] 82424 PT,INR,PTTon 12-29-2024 aPTT Coag (Bld) [Time] 119.6 s High 24.0-34.3 [facility] Comment on above: Performed By: #### A CARMEN #### [facility] (DEFAULT) [address] [place] [address] 38215 INR Coag (PPP) [Relative time] 1.2 {INR} High 0.9-1.[address] [facility] Comment on above: Performed By: #### A CARMEN #### [facility] (DEFAULT) [address] [place] [address] 70905 PT Coag (PPP) [Time] 14.9 s High 11.9-14.[address] [facility] Comment on above: Performed By: #### A CARMEN #### [facility] (DEFAULT) [address] [place] [address] 50862 aPTT Coag (Bld) [Time] 108.3 s High 24.0-34.3 [facility] Comment on above: Performed By: #### X M #### [facility] (DEFAULT) [address] [place] [address] 18134 INR Coag (PPP) [Relative time] 1.2 {INR} High 0.9-1.[address] [facility] Comment on above: Result Comment: Resu lts inconsistent with previous results Performed By: #### X M #### [facility] (DEFAULT) [address] [place] [address] PT Coag (PPP) [Time] 14.9 s High 11.9-14.[address] [facility] Comment on above: Performed By: #### X M #### [facility] (DEFAULT) [address] [place] [address] 33004 PT,INR,PTTOrdered By: Gena Magdaleno on 12-29-2024 aPTT Coag (PPP) [Time] 108.3 s High [facility] INR Coag (Bld) [Relative time] 1.2 {INR} High 0.9 - 1.1 [facility] Interpretation and review of laboratory results Abnormal [facility] PT Coag (PPP) [Time] 14.9 s High [facility] PTTon 12-29-2024 aPTT Coag (PPP) [Time] 84 s High [facility] Interpretation and review of laboratory results Abnormal [facility] aPTT Coag (Bld) [Time] 84.0 s High 24.0-34.3 [facility] Comment on above: Order Comment: After initiation a PTT should be checked every 6 hours from time of last dose change or, if dose has not changed, 6 hours after last PTT result posted.? The frequent monitoring should occur until PTT in goal range for two consecutive lab draws without dose changes at which time PTTs may be checked no less frequently than every 12 hours.? If dose requires a change, PTT should be monitored at least every 6 hours until titration is no longer indicated, then as directed above.? If PTT above goal range refer to medication administration instructions. Performed By: #### X M #### [facility] (DEFAULT) [address] [place] [address] 67770 aPTT Coag (PPP) [Time] 87.8 s High [facility] Interpretation and review of laboratory results Abnormal [facility] aPTT Coag (Bld) [Time] 87.8 s High 24.0-34.3 [facility] Comment on above: Order Comment: After initiation a PTT should be checked every 6 hours from time of last dose change or, if dose has not changed, 6 hours after last PTT result posted.? The frequent monitoring should occur until PTT in goal range for two consecutive lab draws without dose changes at which time PTTs may be checked no less frequently than every 12 hours.? If dose requires a change, PTT should be monitored at least every 6 hours until titration is no longer indicated, then as directed above.? If PTT above goal range refer to medication administration instructions. Performed By: #### S URGP #### [facility] (DEFAULT) [address] [place] [address] 16068 TRIGLYCERIDEon 12-29-2024 Triglyceride [Mass/Vol] 145 mg/dL NINF - 150 mg/dL [facility] Triglyceride [Mass/Vol] 145 mg/dL Normal <[address] [facility] Comment on above: Result Comment: [<15 0 mg/dL: Desirable] [150-199 mg/dL: Borderline] [200-499 mg/dL: High] [>500 mg/dL: Very High] Performed By: #### X M #### [facility] (DEFAULT) [address] [place] [address] 57014 TYPE AND SCREENon 12-29-2024 ABO/RH(D) TYPE Positive [facility] Specimen Expiration 01/01/2025 23:59 [facility] ABO/RH(D) TYPE Positive Normal [facility] Comment on above: Performed By: #### A CARMEN #### [facility] (DEFAULT) [address] [place] [address] 64319 Specimen Expiration 01/01/2025 23:[address] [facility] Comment on above: Performed By: #### A CARMEN #### [facility] (DEFAULT) [address] Heart limitedOrdered By: Jonatan Rogers on 12-29-2024 Avg e' pk fuad 0.13 m/s [facility] Work Phone: [phone] Avg E/e' ratio 9.3 [facility] Work Phone: [phone] Body surface area Derived from formula 2.[address] [facility] Work Phone: [phone] BP EF 36 % [facility] Work Phone: [phone] E wave decelartion time 157 msec O [facility] Work Phone: [phone] e' lateral pk fuad 0.165 m/s [facility] Work Phone: [phone] e' lateral pk fuad 0.17 m/s [facility] [facility] Work Phone: [phone] e' septal pk fuad 0.0896 m/s [facility] Work Phone: [phone] e' septal pk fuad 0.09 m/s [facility] Work Phone: [phone] E/e' lateral ratio 6.55 [facility] Work Phone: [phone] E/e' septal ratio 12.05 [facility] Work Phone: [phone] EF SP [address]CH 38 [facility] Work Phone: [phone] FS 17 % [facility] Work Phone: [phone] [facility] Work Phone: [phone] LV EDV BP [address] [facility] Work Phone: [phone] LV EDV SP 2CH [address] [facility] Work Phone: [phone] LV EDV SP 4CH [address] [facility] Work Phone: LV ESV BP 99 mL [facility] Work Phone: LV ESV SP 2CH [facility]: [facility] 133.[facility]: LV Mass Index 61.4 g/m2 [facility] Work Phone: LV RWT 0.44 [facility] Work Phone: LV stroke volume BP (ml) 56 mL [facility] Work Phone: LV stroke volume index BP 25.69 mL/m2 [facility] Work Phone: LVIDD 4.54 cm [facility] Work Phone: LVIDS 3.[address] [facility] Work Phone: MV pk E fuad 1.08 m/s [facility] Work Phone: [facility] ECHO LV BIPLANE SYSTOLIC VOLUME INDEX 45.41 mL/m2 [facility] Work Phone: [facility] LV BP DIASTOLIC VOLUME INDEX 71.1 mL/m2 [facility] Work Phone: PW 0.[address] [facility] Work Phone: [facility] Work Phone: US Heart limitedon [facility] Radiology Study observation (narrative) [facility] BASIC METABOLIC PANELon 12-19 Anion gap [Moles/Vol] 12 mmol/L 7 - 17 mmol/L [facility] Calcium [Mass/Vol] 8 mg/dL Low 8.6 - 10. 5 mg/dL [facility] Chloride [Moles/Vol] 106 mmol/L 98 - 10 8 mmol/L [facility] CO2 [Moles/Vol] 27 mmol/L 21 - 31 mmol/L [facility] Creatinine [Mass/Vol] 0.83 mg/dL 0.70 - 1.30 mg/dL [facility] eGFR, CKD-EPI, Male - PINF [facility] Glucose [Mass/Vol] 131 mg/dL 70 - 179 mg/dL [facility] Interpretation and review of laboratory results Abnormal [facility] Osmolality Calc [Osmolality] 299 [facility] Potassium [Moles/Vol] 3.8 mmol/L 3.5 - 5.0 mmol/L [facility] Sodium [Moles/Vol] 141 mmol/L 135 - 145 mmol/L [facility] Urea nitrogen [Mass/Vol] 20 mg/dL 7 - 25 mg/d L [facility] Urea nitrogen/Creatinine [Mass ratio] 24 mg/mg [facility] Anion gap [Moles/Vol] 12 mmol/L Normal 7-17 [facility] Comment on above: Performed By: #### X M #### [facility] (DEFAULT) [address] [place] [address] 34080 Calcium [Mass/Vol] 8.0 mg/dL Low 8.6-10.5 [facility] Comment on above: Performed By: #### X M #### [facility] (DEFAULT) [address] [place] [address] 45433 Chloride [Moles/Vol] 106 mmol/L Normal 98-[address] [facility] Comment on above: Performed By: #### X M #### [facility] (DEFAULT) [address] [place] [address] 79776 CO2 [Moles/Vol] 27 mmol/L Normal 21-31 [facility] Comment on above: Performed By: #### X M #### [facility] (DEFAULT) [address] [place] [address] 24062 Creatinine [Mass/Vol] 0.83 mg/dL Normal 0.70-1.30 [facility] Comment on above: Performed By: #### X M #### [facility] (DEFAULT) [address] [place] [address] 34505 eGFR, CKD-EPI, Male > Normal >=[address] [facility] Comment on above: Result Comment: Repo rted eGFR is based on the CKD-EPI 2020 equation using creatinine, age, and sex. Performed By: #### X M #### [facility] (DEFAULT) [address] [place] [address] 03815 Glucose [Mass/Vol] 131 mg/dL Normal Nonfastin -179 mg/dL; Fastin-[address] [facility] Comment on above: Performed By: #### X M #### [facility] (DEFAULT) [address] [place] [address] 23918 Osmolality [Osmolality] 299 mosm/kg Normal 278-[address] [facility] Comment on above: Performed By: #### X M #### [facility] (DEFAULT) [address] [place] [address] 81433 Potassium [Moles/Vol] 3.8 mmol/L Normal 3.5-5.0 [facility] Comment on above: Performed By: #### X M #### [facility] (DEFAULT) [address] [place] [address] 59207 Sodium [Moles/Vol] 141 mmol/L Normal 135-145 [facility] Comment on above: Performed By: #### X M #### [facility] (DEFAULT) [address] [place] [address] 46045 Urea nitrogen [Mass/Vol] 20 mg/dL Normal 7-[address] [facility] Comment on above: Performed By: #### X M #### [facility] (DEFAULT) [address] [place] [address] 12747 Urea nitrogen/Creatinine [Mass ratio] 24 mg/mg Normal [facility] Comment on above: Performed By: #### X M #### [facility] (DEFAULT) [address] [place] [address] CBC,PLATELETSon 12-28-2024 Erythrocyte distribution width (RBC) [Ratio] 19.9 % High 10.9 - 14.3 % [facility] Hematocrit (Bld) [Volume fraction] 24.9 % Low 39.6 - 48.8 % [facility] Hemoglobin (Bld) [Mass/Vol] 7.4 g/dL Low 13.4 - 16.8 g/dL [facility] Interpretation and review of laboratory results Abnormal [facility] MCH (RBC) [Entitic mass] 24.5 pg Low 26. 1 - 33.[address] [facility] MCHC (RBC) [Mass/Vol] 29.7 g/dL Low 31.9 - 36.5 g/dL [facility] MCV (RBC) [Entitic vol] 82.5 fL 79.0 - 94.[address] [facility] Platelet mean volume (Bld) [Entitic vol] 10.3 fL 8.7 - 12.[address] [facility] Platelets (Bld) [#/Vol] 480 10*3/uL High 146 - 337 K/uL [facility] RBC (Bld) [#/Vol] 3.02 10*6/uL Low [facility] WBC (Bld) [#/Vol] 13.91 10*3/uL High 3.73 - 10 .10 K/uL [facility] CHEM 7 (LYTES,BUN,CREA,GLUC) on 12-28-2024 Anion gap [Moles/Vol] 12 mmol/L 7 - 17 mmol/L [facility] Chloride [Moles/Vol] 104 mmol/L 98 - 10 8 mmol/L [facility] CO2 [Moles/Vol] 31 mmol/L 21 - 31 mmol/L [facility] Creatinine [Mass/Vol] 0.96 mg/dL 0.70 - 1.30 mg/dL [facility] eGFR, CKD-EPI, Male 85 - PINF [facility] Glucose [Mass/Vol] 114 mg/dL 70 - 179 mg/dL [facility] Osmolality Calc [Osmolality] 302 [facility] Potassium [Moles/Vol] 3.9 mmol/L 3.5 - 5.0 mmol/L [facility] Sodium [Moles/Vol] 143 mmol/L 135 - 145 mmol/L [facility] Urea nitrogen [Mass/Vol] 21 mg/dL 7 - 25 mg/d L [facility] Urea nitrogen/Creatinine [Mass ratio] 22 mg/mg [facility] COPPERon 12-28-2024 Copper [Mass/Vol] 87 [facility] GLUCOSE POCon 12-28-2024 Glucose [Mass/Vol] 142 mg/dL 70 - 179 mg/dL [facility] POC [facility]ucose [Mass/Vol] 120 mg/dL 70 - 179 mg/dL [facility] POC Sample Type [facility] Glucose [Mass/Vol] 131 mg/dL 70 - 179 mg/dL [facility] POC Sample Type [facility] HIGH SENSITIVITY TROPONIN I - SINGLE ORDERon 12-28-2024 Interpretation and review of laboratory results Normal [facility] Troponin I.cardiac High sensitivity method [Mass/Vol] 5 ng/L NINF - 53 ng/L [facility] hs-Troponin I 5 ng/L Normal <[address] [facility] Comment on above: Order Comment: Acute Coronary Syndrome (ACS): Initial Evaluation and Management:[email or web address] Performed By: #### L [email or web address] ####[facility] (DEFAULT)[address] [place] [address]57 IONIZED CALCIUM, WHOLE BLOOD on 12-28-2024 Calcium.ionized (Bld) [Moles/Vol] 4.79 mg/dL 4.60 - 5.30 mg/dL [facility] Interpretation and review of laboratory results Normal [facility] MAGNESIUMon 12-28-2024 Interpretation and review of laboratory results Normal [facility] Magnesium [Mass/Vol] 1.8 mg/dL 1.6 - 2 .6 mg/dL [facility] Magnesium [Mass/Vol] 1.8 mg/dL Normal 1.6-2.[address] [facility] Comment on above: Performed By: #### X M #### [facility] (DEFAULT) [address] [place] [address] 23285 Interpretation and review of laboratory results Normal [facility] Magnesium [Mass/Vol] 2.2 mg/dL 1.6 - 2 .6 mg/dL [facility] No Panel Informationon 12-28 [facility] PHOSPHATE, INORGANICon 12-28 Interpretation and review of laboratory results Normal [facility] Phosphate [Mass/Vol] 3 mg/dL 2.2 - 4 .6 mg/dL [facility] Phosphorous 3.0 mg/dL Normal 2.2-4.[address] [facility] Comment on above: Performed By: #### X M #### [facility] (DEFAULT) [address] [address] Interpretation and review of laboratory results Abnormal [facility] Phosphate [Mass/Vol] 2 mg/dL Low 2.2 - 4 .6 mg/dL [facility] PT,INR,PTTon 12-28-2024 aPTT Coag (PPP) [Time] 67.1 s High [facility] INR Coag (Bld) [Relative time] 1.1 {INR} 0.9 - 1.1 [facility] Interpretation and review of laboratory results Abnormal [facility] PT Coag (PPP) [Time] 14.3 s High [facility] PTTon 12-28-2024 aPTT Coag (PPP) [Time] 67.4 s High [facility] Interpretation and review of laboratory results Abnormal [facility] aPTT Coag (Bld) [Time] 67.4 s High 24.0-34.3 [facility] Comment on above: Order Comment: After initiation a PTT should be checked every 6 hours from time of last dose change or, if dose has not changed, 6 hours after last PTT result posted.? The frequent monitoring should occur until PTT in goal range for two consecutive lab draws without dose changes at which time PTTs may be checked no less frequently than every 12 hours.? If dose requires a change, PTT should be monitored at least every 6 hours until titration is no longer indicated, then as directed above.? If PTT above goal range refer to medication administration instructions. Performed By: #### X M #### [facility] (DEFAULT) [address] [address] aPTT Coag (Bld) [Time] 84.6 s High 24.0-34.3 [facility] Comment on above: Order Comment: E87.7 1 Performed By: #### T RXN, TRXNP #### [facility] (DEFAULT) [address] [address] aPTT Coag (PPP) [Time] 50.4 s High [facility] Interpretation and review of laboratory results Abnormal [facility] aPTT Coag (Bld) [Time] 50.4 s High 24.0-34.3 [facility] Comment on above: Order Comment: After initiation a PTT should be checked every 6 hours from time of last dose change or, if dose has not changed, 6 hours after last PTT result posted.? The frequent monitoring should occur until PTT in goal range for two consecutive lab draws without dose changes at which time PTTs may be checked no less frequently than every 12 hours.? If dose requires a change, PTT should be monitored at least every 6 hours until titration is no longer indicated, then as directed above.? If PTT above goal range refer to medication administration instructions. Performed By: #### X M #### [facility] (DEFAULT) [address] [place] [address] PTTOrdered By: Niyah Montgomery on 12-28-2024 aPTT Coag (PPP) [Time] 84.6 s High [facility] Interpretation and review of laboratory results Abnormal [facility]BDOMEN 1 VIEW PORTABLEon 12-28-2024 XR ABDOMEN 1 VIEW PORTABLE EXAM: XR ABDOMEN 1 VIEW PORTABLE, 12/28/2024 11:25 AM COMPARISON: XR ABDOMEN 1 VIEW PORTABLE December 28, 2024 CLINICAL INDICATIONS: eval for change in gastric bubble FINDINGS: Tubes: NG tube in the stomach with its tip and sidehole in the mid gastric body Bowel gas pattern: Interval decompression of the stomach since the prior exam. No dilated loops of small or large bowel seen on this study. No visible free air. Abnormal calcifications/Radiop acities: None. Bones: Osseous structures reveal degenerative changes in the visualized spine and the pelvic bones. Other findings: None. IMPRESSION: 1. Interval decompression of the stomach. NG tube in the stomach with its tip and sidehole in the gastric body in an appropriate position Normal [facility] XR ABDOMEN 1 VIEW PORTABLE EXAM: XR ABDOMEN 1 VIEW PORTABLE, 12/28/2024 05:49 AM COMPARISON: XR ABDOMEN 1 VIEW PORTABLE December 27, 2024 CLINICAL INDICATIONS: NG placement FINDINGS: Tubes: Gastric tube tip terminates in the expected region of the mid stomach. Bowel gas pattern: Gaseous distention of the stomach. Nonobstructive bowel gas pattern. No visible free air. Abnormal calcifications/Radiop acities: None. Bones: No acute abnormality. Other findings: None. IMPRESSION: 1. Gastric tube tip terminates in the expected region of the mid stomach. 2. Gaseous distention of the stomach. Normal [facility] XR Abdomen Single viewon RADIOLOGY RADIOLOGY [facility]) [facility] Radiology Study [facility] (narrative) [facility] Abdomen Single viewOrdere d By: Arun Chatterjee on 12-28-2024 [facility] Work Phone: XR Abdomen Single viewOrdere d By: Basil Wagner on 12-28-2024 [facility] ZINC, SERUMon 12-28-2024 Interpretation and review of laboratory results Abnormal [facility] Zinc [Mass/Vol] 52 Low [facility] CBC,PLATELETSon 12-27-2024 Hematocrit (Bld) [Volume fraction] 24.9 % Low 39.6-48.[address] [facility] Comment on above: Performed By: #### T RXSonia, TRXNP #### [facility] (DEFAULT) [address] [place] [address] 35791 Hemoglobin (Bld) [Mass/Vol] 7.4 g/dL Low 13.4-16.[address] [facility] Comment on above: Performed By: #### T RXN, TRXNP #### [facility] (DEFAULT) [address] [place] [address] 10359 MCV (RBC) [Entitic vol] 82.5 fL Normal 79.0-94.[address] [facility] Comment on above: Performed By: #### T RXN, TRXNP #### [facility] (DEFAULT) [address] [place] [address] 29811 Mean Cell Hgb 24.5 pg Low 26.1-33.[address] [facility] Comment on above: Performed By: #### T RXN, TRXNP #### [facility] (DEFAULT) [address] [place] [address] 37660 Mean Cell Hgb Conc 29.7 g/dL Low 31.9-36.5 [facility] Comment on above: Performed By: #### T RXN, TRXNP #### [facility] (DEFAULT) [address] [place] [address] 97327 Platelet mean volume (Bld) [Entitic vol] 10.3 fL Normal 8.7-12.[address] [facility] Comment on above: Performed By: #### T RXN, TRXNP #### [facility] (DEFAULT) [address] [place] [address] 81095 Platelets (Bld) [#/Vol] 480 10*3/uL High 146-[address] [facility] Comment on above: Performed By: #### T RXN, TRXNP #### [facility] (DEFAULT) [address] [place] [address] 60589 RBC (Bld) [#/Vol] 3.02 10*6/uL Low 4.38-5.[address] [facility] Comment on above: Performed By: #### T RXN, TRXNP #### [facility] (DEFAULT) [address] [place] [address] 21926 RBC Distribution 19.9 % High 10.9-14.3 [facility] Comment on above: Performed By: #### T RXN, TRXNP #### [facility] (DEFAULT) [address] [place] [address] 98406 WBC (Bld) [#/Vol] 13.91 10*3/uL High 3.73-10.[address] [facility] Comment on above: Performed By: #### T RXN, TRXNP #### [facility] (DEFAULT) [address] [place] [address] 55627 Erythrocyte distribution width (RBC) [Ratio] 20 % High 10.9 - 14.3 % [facility] Hematocrit (Bld) [Volume fraction] 23.5 % Low 39.6 - 48.8 % [facility] Hemoglobin (Bld) [Mass/Vol] 7.3 g/dL Low 13.4 - 16.8 g/dL [facility] Interpretation and review of laboratory results Abnormal [facility] MCH (RBC) [Entitic mass] 25.9 pg Low 26. 1 - 33.[address] [facility] MCHC (RBC) [Mass/Vol] 31.1 g/dL Low 31.9 - 36.5 g/dL [facility] MCV (RBC) [Entitic vol] 83.3 fL 79.0 - 94.[address] [facility] Platelet mean volume (Bld) [Entitic vol] 10.8 fL 8.7 - 12.[address] [facility] Platelets (Bld) [#/Vol] 393 10*3/uL High 146 - 337 K/uL [facility] RBC (Bld) [#/Vol] 2.82 10*6/uL Low [facility] WBC (Bld) [#/Vol] 14.13 10*3/uL High 3.73 - 10 .10 K/uL [facility] Hematocrit (Bld) [Volume fraction] 23.5 % Low 39.6-48.[address] [facility] Comment on above: Performed By: #### X M #### [facility] (DEFAULT) [address] [address] Hemoglobin (Bld) [Mass/Vol] 7.3 g/dL Low 13.4-16.[address] [facility] Comment on above: Performed By: #### X M #### [facility] (DEFAULT) [address] [place] [address] 29047 MCV (RBC) [Entitic vol] 83.3 fL Normal 79.0-94.[address] [facility] Comment on above: Performed By: #### X M #### [facility] (DEFAULT) [address] [place] [address] 00447 Mean Cell Hgb 25.9 pg Low 26.1-33.[address] [facility] Comment on above: Performed By: #### X M #### [facility] (DEFAULT) [address] [place] [address] 81518 Mean Cell Hgb Conc 31.1 g/dL Low 31.9-36.5 [facility] Comment on above: Performed By: #### X M #### [facility] (DEFAULT) [address] [place] [address] 00958 Platelet mean volume (Bld) [Entitic vol] 10.8 fL Normal 8.7-12.[address] [facility] Comment on above: Performed By: #### X M #### [facility] (DEFAULT) [address] [place] [address] 42905 Platelets (Bld) [#/Vol] 393 10*3/uL High 146-[address] [facility] Comment on above: Performed By: #### X M #### [facility] (DEFAULT) [address] [place] [address] 11145 RBC (Bld) [#/Vol] 2.82 10*6/uL Low 4.38-5.[address] [facility] Comment on above: Performed By: #### X M #### [facility] (DEFAULT) [address] [place] [address] 24850 RBC Distribution 20.0 % High 10.9-14.3 [facility] Comment on above: Performed By: #### X M #### [facility] (DEFAULT) [address] [place] [address] 18455 WBC (Bld) [#/Vol] 14.13 10*3/uL High 3.73-10.[address] [facility] Comment on above: Performed By: #### X M #### [facility] (DEFAULT) [address] [place] [address] 58606 CHEM 7 (LYTES,BUN,CREA,GLUC) on 12-27-2024 Anion gap [Moles/Vol] 12 mmol/L Normal 7-17 [facility] Comment on above: Performed By: #### X M #### [facility] (DEFAULT) [address] [place] [address] 74254 Chloride [Moles/Vol] 104 mmol/L Normal 98-[address] [facility] Comment on above: Performed By: #### X M #### [facility] (DEFAULT) [address] [place] [address] 86479 CO2 [Moles/Vol] 31 mmol/L Normal 21-31 [facility] Comment on above: Performed By: #### X M #### [facility] (DEFAULT) [address] [place] [address] 15980 Creatinine [Mass/Vol] 0.96 mg/dL Normal 0.70-1.30 [facility] Comment on above: Performed By: #### X M #### [facility] (DEFAULT) [address] [place] [address] 14903 GFR/1.73 sq M.predicted among non-blacks MDRD (S/P/Bld) [Vol rate/Area] 85 mL/min/{1.73_m2} Normal >=[address] [facility] Comment on above: Result Comment: Repo rted eGFR is based on the CKD-EPI 2020 equation using creatinine, age, and sex. Performed By: #### X M #### [facility] (DEFAULT) [address] [place] [address] 09559 Glucose [Mass/Vol] 114 mg/dL Normal Nonfastin -179 mg/dL; Fastin-[address] [facility] Comment on above: Performed By: #### X M #### [facility] (DEFAULT) [address] [place] [address] 62323 Osmolality [Osmolality] 302 mosm/kg Normal 278-[address] [facility] Comment on above: Performed By: #### X M #### [facility] (DEFAULT) [address] [place] [address] 23406 Potassium [Moles/Vol] 3.9 mmol/L Normal 3.5-5.0 [facility] Comment on above: Performed By: #### X M #### [facility] (DEFAULT) [address] [place] [address] 42445 Sodium [Moles/Vol] 143 mmol/L Normal 135-145 [facility] Comment on above: Performed By: #### X M #### [facility] (DEFAULT) [address] [place] [address] Urea nitrogen [Mass/Vol] 21 mg/dL Normal 7-[address] [facility] Comment on above: Performed By: #### X M #### [facility] (DEFAULT) [address] [place] [address] Urea nitrogen/Creatinine [Mass ratio] 22 mg/mg Normal [facility] Comment on above: Performed By: #### X M #### [facility] (DEFAULT) [address] [place] [address] Anion gap [Moles/Vol] 11 mmol/L 7 - 17 mmol/L [facility] Chloride [Moles/Vol] 103 mmol/L 98 - 10 8 mmol/L [facility] CO2 [Moles/Vol] 31 mmol/L 21 - 31 mmol/L [facility] Creatinine [Mass/Vol] 1.05 mg/dL 0.70 - 1.30 mg/dL [facility] eGFR, CKD-EPI, Male 76 - PINF [facility] Glucose [Mass/Vol] 121 mg/dL 70 - 179 mg/dL [facility] Osmolality Calc [Osmolality] 299 [facility] Potassium [Moles/Vol] 4.2 mmol/L 3.5 - 5.0 mmol/L [facility] Sodium [Moles/Vol] 141 mmol/L 135 - 145 mmol/L [facility] Urea nitrogen [Mass/Vol] 20 mg/dL 7 - 25 mg/d L [facility] Urea nitrogen/Creatinine [Mass ratio] 19 mg/mg [facility] Anion gap [Moles/Vol] 11 mmol/L Normal 7-17 [facility] Comment on above: Performed By: #### X M #### [facility] (DEFAULT) [address] [place] [address] 18250 Chloride [Moles/Vol] 103 mmol/L Normal 98-[address] [facility] Comment on above: Performed By: #### X M #### [facility] (DEFAULT) [address] [place] [address] 47252 CO2 [Moles/Vol] 31 mmol/L Normal 21-31 [facility] Comment on above: Performed By: #### X M #### [facility] (DEFAULT) [address] [place] [address] 62710 Creatinine [Mass/Vol] 1.05 mg/dL Normal 0.70-1.30 [facility] Comment on above: Performed By: #### X M #### [facility] (DEFAULT) [address] [place] [address] 68987 GFR/1.73 sq M.predicted among non-blacks MDRD (S/P/Bld) [Vol rate/Area] 76 mL/min/{1.73_m2} Normal >=[address] [facility] Comment on above: Result Comment: Repo rted eGFR is based on the CKD-EPI 2020 equation using creatinine, age, and sex. Performed By: #### X M #### [facility] (DEFAULT) [address] [place] [address] 14696 Glucose [Mass/Vol] 121 mg/dL Normal Nonfastin -179 mg/dL; Fastin-[address] [facility] Comment on above: Performed By: #### X M #### [facility] (DEFAULT) [address] [place] [address] Osmolality [Osmolality] 299 mosm/kg Normal 278-[address] [facility] Comment on above: Performed By: #### X M #### [facility] (DEFAULT) [address] [address] Potassium [Moles/Vol] 4.2 mmol/L Normal 3.5-5.0 [facility] Comment on above: Performed By: #### X M #### [facility] (DEFAULT) [address] [place] [address] 51487 Sodium [Moles/Vol] 141 mmol/L Normal 135-145 [facility] Comment on above: Performed By: #### X M #### [facility] (DEFAULT) [address] [place] [address] 80948 Urea nitrogen [Mass/Vol] 20 mg/dL Normal 7-[address] [facility] Comment on above: Performed By: #### X M #### [facility] (DEFAULT) [address] [place] [address] 76117 Urea nitrogen/Creatinine [Mass ratio] 19 mg/mg Normal [facility] Comment on above: Performed By: #### X M #### [facility] (DEFAULT) [address] [address] GLUCOSE POCon 12-27-2024 Glucose [Mass/Vol] 121 mg/dL 70 - 179 mg/dL [facility] POC Sample Type CAPBL [facility] Glucose [Mass/Vol] 118 mg/dL 70 - 179 mg/dL [facility] POC Sample Type CAPBL [facility] Glucose [Mass/Vol] 112 mg/dL 70 - 179 mg/dL [facility] POC Sample Type VENO [facility] Glucose [Mass/Vol] 115 mg/dL 70 - 179 mg/dL [facility] POC Sample Type CAPBL [facility] IONIZED CALCIUM, WHOLE BLOOD on 12-27-2024 ICA 4.79 mg/dL Normal 4.60-5.[address] [facility] Comment on above: Performed By: #### H [facility] #### [facility] (DEFAULT) [address] [place] [address]39 ICA 4.36 mg/dL Low 4.60-5.[address] [facility] Comment on above: Performed By: #### X M #### [facility] (DEFAULT) [address] [place] [address]151 IONIZED CALCIUM, WHOLE BLOOD Ordered By: Bryan Andrade on 12-27-2024 Calcium.ionized (Bld) [Moles/Vol] 4.36 mg/dL Low 4.60 - 5.30 mg/dL [facility] Interpretation and review of laboratory results Abnormal [facility] MAGNESIUMon 12-27-2024 Magnesium [Mass/Vol] 2.2 mg/dL Normal 1.6-2.[address] [facility] Comment on above: Performed By: #### X M #### [facility] (DEFAULT) [address] [place] [address] Magnesium [Mass/Vol] 2.5 mg/dL 1.6 - 2 .6 mg/dL [facility] Magnesium [Mass/Vol] 2.5 mg/dL Normal 1.6-2.[address] [facility] Comment on above: Performed By: #### C HM7, MGO, TRIG, IPB #### [facility] (DEFAULT) [address] [place] [address] No Panel Informationon 12-27 Interpretation and review of laboratory results Normal [facility] PHOSPHATE, INORGANICon 12-27 Phosphorous 2.0 mg/dL Low 2.2-4.[address] [facility] Comment on above: Performed By: #### X M #### [facility] (DEFAULT) [address] [place] [address]57 Phosphate [Mass/Vol] 3.6 mg/dL 2.2 - 4 .6 mg/dL [facility] Phosphorous 3.6 mg/dL Normal 2.2-4.[address] [facility] Comment on above: Performed By: #### C HM7, MGO, TRIG, IPB #### [facility] (DEFAULT) [address] [place] [address] PREALBUMINon 12-27-2024 Interpretation and review of laboratory results Abnormal [facility] Prealbumin [Mass/Vol] 8 mg/dL Low 17 - 3 4 mg/dL [facility] Prealbumin [Mass/Vol] 8 mg/dL Low 17-34 [facility] Comment on above: Performed By: #### X M #### [facility] (DEFAULT) [address] [place] [address]31 PT,INR,PTTon 12-27-2024 aPTT Coag (Bld) [Time] 67.1 s High 24.0-34.3 [facility] Comment on above: Performed By: #### X M #### [facility] (DEFAULT) [address] [place] [address]84 INR Coag (PPP) [Relative time] 1.1 {INR} Normal 0.9-1.[address] [facility] Comment on above: Performed By: #### X M #### [facility] (DEFAULT) [address] [place] [address] 87356 PT Coag (PPP) [Time] 14.3 s High 11.9-14.[address] [facility] Comment on above: Performed By: #### X M #### [facility] (DEFAULT) [address] [place] [address] 44664 aPTT Coag (PPP) [Time] 120.8 s High [facility] INR Coag (Bld) [Relative time] 1.2 {INR} High 0.9 - 1.1 [facility] Interpretation and review of laboratory results Abnormal [facility] PT Coag (PPP) [Time] 15.2 s High [facility] aPTT Coag (Bld) [Time] 120.8 s High 24.0-34.3 [facility] Comment on above: Performed By: #### H EMOGC #### [facility] (DEFAULT) [address] [place] [address]79 INR Coag (PPP) [Relative time] 1.2 {INR} High 0.9-1.[address] [facility] Comment on above: Performed By: #### H EMOGC #### [facility] (DEFAULT) [address] [place] [address] 92372 PT Coag (PPP) [Time] 15.2 s High 11.9-14.[address] [facility] Comment on above: Performed By: #### H EMOGC #### [facility] (DEFAULT) [address] [place] [address] PTTOrdered By: Andres Meade on on 12-27-2024 aPTT Coag (PPP) [Time] 117.3 s High [facility] Interpretation and review of laboratory results Abnormal [facility] PTTon 12-27-2024 aPTT Coag (Bld) [Time] 117.3 s High 24.0-34.3 [facility] Comment on above: Order Comment: E87.7 1 Performed By: #### T RXN, TRXNP #### [facility] (DEFAULT) [address] [place] [address] 61544 aPTT Coag (PPP) [Time] 69.6 s High [facility] Interpretation and review of laboratory results Abnormal [facility] aPTT Coag (Bld) [Time] 69.6 s High 24.0-34.3 [facility] Comment on above: Order Comment: After initiation a PTT should be checked every 6 hours from time of last dose change or, if dose has not changed, 6 hours after last PTT result posted.? The frequent monitoring should occur until PTT in goal range for two consecutive lab draws without dose changes at which time PTTs may be checked no less frequently than every 12 hours.? If dose requires a change, PTT should be monitored at least every 6 hours until titration is no longer indicated, then as directed above.? If PTT above goal range refer to medication administration instructions. Performed By: #### X M #### [facility] (DEFAULT) [address] [address] aPTT Coag (Bld) [Time] 74.9 s High 24.0-34.3 [facility] Comment on above: Order Comment: After initiation a PTT should be checked every 6 hours from time of last dose change or, if dose has not changed, 6 hours after last PTT result posted.? The frequent monitoring should occur until PTT in goal range for two consecutive lab draws without dose changes at which time PTTs may be checked no less frequently than every 12 hours.? If dose requires a change, PTT should be monitored at least every 6 hours until titration is no longer indicated, then as directed above.? If PTT above goal range refer to medication administration instructions. Performed By: #### X M #### [facility] (DEFAULT) [address] [place] [address] PTTOrdered By: Geovanni Hoffman on 12-27-2024 aPTT Coag (PPP) [Time] 74.9 s High [facility] Interpretation and review of laboratory results Abnormal [facility] SELENIUMon 12-27-2024 Selenium (Bld) [Mass/Vol] 156 ng/mL 150 - 241 ng/mL [facility] TRIGLYCERIDEon 12-27-2024 Interpretation and review of laboratory results Abnormal [facility] Triglyceride [Mass/Vol] 487 mg/dL High NINF - 150 mg/dL [facility] Triglyceride [Mass/Vol] 487 mg/dL High <[address] [facility] Comment on above: Result Comment: [<15 0 mg/dL: Desirable] [150-199 mg/dL: Borderline] [200-499 mg/dL: High] [>500 mg/dL: Very High] Performed By: #### C HM7, MGO, TRIG, IPB #### [facility] (DEFAULT) [address] [address] VITAMIN D (25-HYDROXY,TOTAL) on 12-27-2024 Interpretation and review of laboratory results Normal [facility] Vitamin D+Metabolites [Mass/Vol] 31.7 ng/mL 30.0 - 100.0 ng/mL [facility] XR ABDOMEN 1 VIEW PORTABLEon 12-27-2024 XR ABDOMEN 1 VIEW PORTABLE EXAM: XR ABDOMEN 1 VIEW PORTABLE, 12/27/2024 12:33 PM COMPARISON: XR ABDOMEN 1 VIEW PORTABLE December 26, 2024 CLINICAL INDICATIONS: high NGT output, eval position FINDINGS: Tubes: Enteric tube terminates within the gastric body. Bowel gas pattern: No abnormal bowel dilatation. No visible free air. Abnormal calcifications/Radiop acities: None. Bones: No acute abnormality. Other findings: None. IMPRESSION: Enteric tube terminates in the gastric body. Normal [facility] XR Abdomen Single viewon RADIOLOGY RADIOLOGY [facility] Radiology Study observation (narrative) [facility] XR Abdomen Single viewOrdere d By: Lisa Mckeon on 12-27-2024 [facility] Work Phone: C REACTIVE PROTEINOrdered By : Delano Hughes on 12-26-2024 CRP High sensitivity method [Mass/Vol] 299.7 mg/L High NINF - 10.00 mg/L [facility] Interpretation and review of laboratory results Abnormal [facility] C REACTIVE PROTEINon 025 CRP [Mass/Vol] 299.70 mg/L High <10.00 [facility] Comment on above: Performed By: #### X M #### [facility] (DEFAULT) [address] [address] CALCIUMon 12-26-2024 Calcium [Mass/Vol] 7.7 mg/dL Low 8.6 - 10. 5 mg/dL [facility] Calcium [Mass/Vol] 7.7 mg/dL Low 8.6-10.5 [facility] Comment on above: Performed By: #### X M #### [facility] (DEFAULT) [address] [address] CBC,PLATELETSon 12-26-2024 Erythrocyte distribution width (RBC) [Ratio] 19.9 % High 10.9 - 14.3 % [facility] Hematocrit (Bld) [Volume fraction] 29.1 % Low 39.6 - 48.8 % [facility] Hemoglobin (Bld) [Mass/Vol] 8.8 g/dL Low 13.4 - 16.8 g/dL [facility] Interpretation and review of laboratory results Abnormal [facility] MCH (RBC) [Entitic mass] 24.6 pg Low 26. 1 - 33.[address] [facility] MCHC (RBC) [Mass/Vol] 30.2 g/dL Low 31.9 - 36.5 g/dL [facility] MCV (RBC) [Entitic vol] 81.3 fL 79.0 - 94.[address] [facility] Platelet mean volume (Bld) [Entitic vol] 10.4 fL 8.7 - 12.[address] [facility] Platelets (Bld) [#/Vol] 412 10*3/uL High 146 - 337 K/uL [facility] RBC (Bld) [#/Vol] 3.58 10*6/uL Low [facility] WBC (Bld) [#/Vol] 20.39 10*3/uL High 3.73 - 10 .10 K/uL [facility] Hematocrit (Bld) [Volume fraction] 29.1 % Low 39.6-48.[address] [facility] Comment on above: Performed By: #### X M #### [facility] (DEFAULT) [address] [place] [address] Hemoglobin (Bld) [Mass/Vol] 8.8 g/dL Low 13.4-16.[address] [facility] Comment on above: Performed By: #### X M #### [facility] (DEFAULT) [address] [place] [address] MCV (RBC) [Entitic vol] 81.3 fL Normal 79.0-94.[address] [facility] Comment on above: Performed By: #### X M #### [facility] (DEFAULT) [address] [address] Mean Cell Hgb 24.6 pg Low 26.1-33.[address] [facility] Comment on above: Performed By: #### X M #### [facility] (DEFAULT) [address] [address] Mean Cell Hgb Conc 30.2 g/dL Low 31.9-36.5 [facility] Comment on above: Performed By: #### X M #### [facility] (DEFAULT) [address] [address] Platelet mean volume (Bld) [Entitic vol] 10.4 fL Normal 8.7-12.[address] [facility] Comment on above: Performed By: #### X M #### [facility] (DEFAULT) [address] [address] Platelets (Bld) [#/Vol] 412 10*3/uL High 146-[address] [facility] Comment on above: Performed By: #### X M #### [facility] (DEFAULT) [address] [address] RBC (Bld) [#/Vol] 3.58 10*6/uL Low 4.38-5.[address] [facility] Comment on above: Performed By: #### X M #### [facility] (DEFAULT) [address] [address] RBC Distribution 19.9 % High 10.9-14.3 [facility] Comment on above: Performed By: #### X M #### [facility] (DEFAULT) [address] [address] WBC (Bld) [#/Vol] 20.39 10*3/uL High 3.73-10.[address] [facility] Comment on above: Performed By: #### X M #### [facility] (DEFAULT) [address] [place] [address] CHEM 7 (LYTES,BUN,CREA,GLUC) on 12-26-2024 Anion gap [Moles/Vol] 14 mmol/L 7 - 17 mmol/L [facility] Chloride [Moles/Vol] 100 mmol/L 98 - 10 8 mmol/L [facility] CO2 [Moles/Vol] 25 mmol/L 21 - 31 mmol/L [facility] Creatinine [Mass/Vol] 1.48 mg/dL High 0.70 - 1.30 mg/dL [facility] eGFR, CKD-EPI, Male 50 Low - [facility]F [facility] Glucose [Mass/Vol] 130 mg/dL 70 - 179 mg/dL [facility] Osmolality Calc [Osmolality] 288 [facility] Potassium [Moles/Vol] 3.8 mmol/L 3.5 - 5.0 mmol/L [facility] Sodium [Moles/Vol] 135 mmol/L 135 - 145 mmol/L [facility] Urea nitrogen [Mass/Vol] 21 mg/dL 7 - 25 mg/d L [facility] Urea nitrogen/Creatinine [Mass ratio] 14 mg/mg [facility] Anion gap [Moles/Vol] 14 mmol/L Normal 7-17 [facility] Comment on above: Performed By: #### X M #### [facility] (DEFAULT) [address] [place] [address] Chloride [Moles/Vol] 100 mmol/L Normal 98-[address] [facility] Comment on above: Performed By: #### X M #### [facility] (DEFAULT) [address] [place] [address] CO2 [Moles/Vol] 25 mmol/L Normal 21-31 [facility] Comment on above: Performed By: #### X M #### [facility] (DEFAULT) [address] [place] [address] Creatinine [Mass/Vol] 1.48 mg/dL High 0.70-1.30 [facility] Comment on above: Performed By: #### X M #### [facility] (DEFAULT) [address] [place] [address] GFR/1.73 sq M.predicted among non-blacks MDRD (S/P/Bld) [Vol rate/Area] 50 mL/min/{1.73_m2} Low >=[address] [facility] Comment on above: Result Comment: Repo rted eGFR is based on the CKD-EPI 2020 equation using creatinine, age, and sex. Performed By: #### X M #### [facility] (DEFAULT) [address] [place] [address]168 Glucose [Mass/Vol] 130 mg/dL Normal Nonfastin -179 mg/dL; Fastin-[address] [facility] Comment on above: Performed By: #### X M #### [facility] (DEFAULT) [address] [place] [address]234 Osmolality [Osmolality] 288 mosm/kg Normal 278-[address] [facility] Comment on above: Performed By: #### X M #### [facility] (DEFAULT) [address] [place] [address] Potassium [Moles/Vol] 3.8 mmol/L Normal 3.5-5.0 [facility] Comment on above: Performed By: #### X M #### [facility] (DEFAULT) [address] [place] [address] 10982 Sodium [Moles/Vol] 135 mmol/L Normal 135-145 [facility] Comment on above: Performed By: #### X M #### [facility] (DEFAULT) [address] [place] [address] 12094 Urea nitrogen [Mass/Vol] 21 mg/dL Normal 7-[address] [facility] Comment on above: Performed By: #### X M #### [facility] (DEFAULT) [address] [place] [address] 66037 Urea nitrogen/Creatinine [Mass ratio] 14 mg/mg Normal [facility] Comment on above: Performed By: #### X M #### [facility] (DEFAULT) [address] [place] [address]68 GLUCOSE POCon 12-26-2024 Glucose [Mass/Vol] 119 mg/dL 70 - 179 mg/dL [facility] POC Sample Type CAPBL [facility] Glucose [Mass/Vol] 140 mg/dL 70 - 179 mg/dL [facility]OC [facility] Glucose [Mass/Vol] 149 mg/dL 70 - 179 mg/dL [facility] POC Sample Type CAPBL [facility] MAGNESIUMon 12-26-2024 Magnesium [Mass/Vol] 2.1 mg/dL 1.6 - 2 .6 mg/dL [facility] Magnesium [Mass/Vol] 2.1 mg/dL Normal 1.6-2.[address] [facility] Comment on above: Performed By: #### X M #### [facility] (DEFAULT) [address] [place], [place] [id number] No Panel Informationon 12-26 Interpretation and review of laboratory results Abnormal [facility] Interpretation and review of laboratory results Normal [facility] PHOSPHATE, INORGANICon 12-26 Phosphate [Mass/Vol] 3 mg/dL 2.2 - 4 .6 mg/dL [facility] Phosphorous 3.0 mg/dL Normal 2.2-4.[address] [facility] Comment on above: Performed By: #### X M #### [facility] (DEFAULT) [address] [place] [address] PTTon 12-26-2024 aPTT Coag (PPP) [Time] 96.5 s High [facility] Interpretation and review of laboratory results Abnormal [facility] aPTT Coag (Bld) [Time] 96.5 s High 24.0-34.3 [facility] Comment on above: Order Comment: After initiation a PTT should be checked every 6 hours from time of last dose change or, if dose has not changed, 6 hours after last PTT result posted.? The frequent monitoring should occur until PTT in goal range for two consecutive lab draws without dose changes at which time PTTs may be checked no less frequently than every 12 hours.? If dose requires a change, PTT should be monitored at least every 6 hours until titration is no longer indicated, then as directed above.? If PTT above goal range refer to medication administration instructions. Performed By: #### X M #### [facility] (DEFAULT) [address] [address] aPTT Coag (PPP) [Time] 89.8 s High [facility] Interpretation and review of laboratory results Abnormal [facility] aPTT Coag (Bld) [Time] 89.8 s High 24.0-34.3 [facility] Comment on above: Order Comment: After initiation a PTT should be checked every 6 hours from time of last dose change or, if dose has not changed, 6 hours after last PTT result posted.? The frequent monitoring should occur until PTT in goal range for two consecutive lab draws without dose changes at which time PTTs may be checked no less frequently than every 12 hours.? If dose requires a change, PTT should be monitored at least every 6 hours until titration is no longer indicated, then as directed above.? If PTT above goal range refer to medication administration instructions. Performed By: #### X M #### [facility] (DEFAULT) [address] [place] [address] aPTT Coag (PPP) [Time] 72.3 s High [facility] Interpretation and review of laboratory results Abnormal [facility] aPTT Coag (Bld) [Time] 72.3 s High 24.0-34.3 [facility] Comment on above: Order Comment: After initiation a PTT should be checked every 6 hours from time of last dose change or, if dose has not changed, 6 hours after last PTT result posted.? The frequent monitoring should occur until PTT in goal range for two consecutive lab draws without dose changes at which time PTTs may be checked no less frequently than every 12 hours.? If dose requires a change, PTT should be monitored at least every 6 hours until titration is no longer indicated, then as directed above.? If PTT above goal range refer to medication administration instructions. Performed By: #### X M #### [facility] (DEFAULT) [address] [address] aPTT Coag (PPP) [Time] 51.1 s High [facility] Interpretation and review of laboratory results Abnormal [facility] aPTT Coag (Bld) [Time] 51.1 s High 24.0-34.3 [facility] Comment on above: Order Comment: After initiation a PTT should be checked every 6 hours from time of last dose change or, if dose has not changed, 6 hours after last PTT result posted.? The frequent monitoring should occur until PTT in goal range for two consecutive lab draws without dose changes at which time PTTs may be checked no less frequently than every 12 hours.? If dose requires a change, PTT should be monitored at least every 6 hours until titration is no longer indicated, then as directed above.? If PTT above goal range refer to medication administration instructions. Performed By: #### S URGP #### [facility] (DEFAULT) [address] [place] [address] XR ABDOMEN 1 VIEW PORTABLEon 12-26-2024 XR ABDOMEN 1 VIEW PORTABLE EXAM: XR ABDOMEN 1 VIEW PORTABLE, 12/26/2024 11:46 AM COMPARISON: CT ANGIO ABDOMEN/PELVIS (OUTSIDE IMAGE) December 13, 2024 CLINICAL INDICATIONS: confirm NGT FINDINGS: Tubes: NG tube tip and sidehole are in the stomach. Bowel gas pattern: Normal. No visible free air. Abnormal calcifications/Radiop acities: None. Bones: No acute abnormality. Other findings: None. IMPRESSION: Gastric drainage tube tip and sidehole in the stomach. Normal [facility] XR Abdomen Single viewon RADIOLOGY RADIOLOGY [facility] Radiology Study observation (narrative) [facility] XR Abdomen Single viewOrdere d By: Iris Resendez on 12-26-2024 [facility] Work Phone: C REACTIVE PROTEINon 025 CRP [Mass/Vol] 168.42 mg/L High <10.00 [facility] Comment on above: Performed By: #### T RXN, TRXNP #### [facility] (DEFAULT) [address] [address] CALCIUMon 12-25-2024 Calcium [Mass/Vol] 7.6 mg/dL Low 8.6-10.5 [facility] Comment on above: Performed By: #### T RXN, TRXNP #### [facility] (DEFAULT) [address] [address] LORAINE AURIS SCREEN BY PCRO rdered By: Lv Diaz on 12-25-2024 Loraine auris Screen by PCR Not detected Not Detected [facility] Interpretation and review of laboratory results Normal [facility] CBC,PLATELETSon 12-25-2024 Hematocrit (Bld) [Volume fraction] 34.1 % Low 39.6-48.[address] [facility] Comment on above: Performed By: #### A CARMEN #### [facility] (DEFAULT) [address] [place] [address] Hemoglobin (Bld) [Mass/Vol] 10.4 g/dL Low 13.4-16.[address] [facility] Comment on above: Performed By: #### A CARMEN #### [facility] (DEFAULT) [address] [place] [address] MCV (RBC) [Entitic vol] 81.2 fL Normal 79.0-94.5 [facility] Comment on above: Performed By: #### A CARMEN #### [facility] (DEFAULT) [address] [place] [address] Mean Cell Hgb 24.8 pg Low 26.1-33.[address] [facility] Comment on above: Performed By: #### A CARMEN #### [facility] (DEFAULT) [address] [place] [address] Mean Cell Hgb Conc 30.5 g/dL Low 31.9-36.5 [facility] Comment on above: Performed By: #### A CARMEN #### [facility] [facility] (DEFAULT) [address] [place] [address] 81825 Platelet mean volume (Bld) [Entitic vol] 10.2 fL Normal 8.7-12.[address] [facility] Comment on above: Performed By: #### A CARMEN #### [facility] (DEFAULT) [address] [place] [address] 00693 Platelets (Bld) [#/Vol] 476 10*3/uL High 146-[address] [facility] Comment on above: Performed By: #### A CARMEN #### [facility] (DEFAULT) [address] [address] RBC (Bld) [#/Vol] 4.20 10*6/uL Low 4.38-5.[address] [facility] Comment on above: Performed By: #### A CARMEN #### [facility] (DEFAULT) [address] [place] [address] 77162 RBC Distribution 20.2 % High 10.9-14.3 [facility] Comment on above: Performed By: #### A CARMEN #### [facility] (DEFAULT) [address] [place] [address] 48259 WBC (Bld) [#/Vol] 20.88 10*3/uL High 3.73-10.[address] [facility] Comment on above: Performed By: #### A CARMEN #### [facility] (DEFAULT) [address] [place] [address] 80353 CHEM 7 (LYTES,BUN,CREA,GLUC) on 12-25-2024 Anion gap [Moles/Vol] 13 mmol/L Normal 7-17 [facility] Comment on above: Performed By: #### T RXN, TRXNP #### [facility] (DEFAULT) [address] [place] [address] 12978 Chloride [Moles/Vol] 103 mmol/L Normal 98-[address] [facility] Comment on above: Performed By: #### T RXN, TRXNP #### [facility] (DEFAULT) [address] [place] [address] 50568 CO2 [Moles/Vol] 24 mmol/L Normal 21-31 [facility] Comment on above: Performed By: #### T RXN, TRXNP #### [facility] (DEFAULT) [address] [place] [address] 15479 Creatinine [Mass/Vol] 1.43 mg/dL High 0.70-1.30 [facility] Comment on above: Performed By: #### T RXN, TRXNP #### [facility] (DEFAULT) [address] [place] [address] 23785 GFR/1.73 sq M.predicted among non-blacks MDRD (S/P/Bld) [Vol rate/Area] 52 mL/min/{1.73_m2} Low >=[address] [facility] Comment on above: Result Comment: Repo rted eGFR is based on the CKD-EPI 2020 equation using creatinine, age, and sex. Performed By: #### T RXN, TRXNP #### [facility] (DEFAULT) [address] [place] [address] 34945 Glucose [Mass/Vol] 150 mg/dL Normal Nonfastin -179 mg/dL; Fastin-[address] [facility] Comment on above: Performed By: #### T RXN, TRXNP #### [facility] (DEFAULT) [address] [place] [address] 72011 Osmolality [Osmolality] 290 mosm/kg Normal 278-[address] [facility] Comment on above: Performed By: #### T RXN, TRXNP #### [facility] (DEFAULT) [address] [address] Potassium [Moles/Vol] 3.7 mmol/L Normal 3.5-5.0 [facility] Comment on above: Performed By: #### T RXN, TRXNP #### [facility] (DEFAULT) [address] [address] Sodium [Moles/Vol] 136 mmol/L Normal 135-145 [facility] Comment on above: Performed By: #### T RXN, TRXNP #### [facility] (DEFAULT) [address] [address] Urea nitrogen [Mass/Vol] 18 mg/dL Normal 7-[address] [facility] Comment on above: Performed By: #### T RXN, TRXNP #### [facility] (DEFAULT) [address] [address] Urea nitrogen/Creatinine [Mass ratio] 13 mg/mg Normal [facility] Comment on above: Performed By: #### T RXN, TRXNP #### [facility] (DEFAULT) [address] [address] COPPERon 12-25-2024 Copper 87 mcg/dL Normal 73-[address] [facility] Comment on above: Result Comment: ADDITIONAL INFORMATION This test was developed and its performance characteristics determined by [facility] in a manner consistent with CLIA requirements. This test has not been cleared or approved by the U.S. Food and Drug Administration. Test Performed by: [facility] [address] [place] [address] Assessment Director: Tahmina Mosquera Ph.D.; CLIA# [id number] Performed By: #### X M #### [facility] (DEFAULT) [address] [place] [address] 27050 GLUCOSE POCon 12-25-2024 Glucose [Mass/Vol] 99 mg/dL 70 - 179 mg/dL [facility] POC Sample Type CAPBL [facility] Glucose [Mass/Vol] 132 mg/dL 70 - 179 mg/dL [facility] POC Sample Type [facility] Glucose [Mass/Vol] 138 mg/dL 70 - 179 mg/dL [facility] POC Sample Type CAPBL [facility] MAGNESIUMon 12-25-2024 Magnesium [Mass/Vol] 2.2 mg/dL Normal 1.6-2.[address] [facility] Comment on above: Performed By: #### T RXN, TRXNP #### [facility] (DEFAULT) [address] [place] [address]15 PHOSPHATE, INORGANICon 12-25 Phosphorous 4.4 mg/dL Normal 2.2-4.[address] [facility] Comment on above: Performed By: #### T RXN, TRXNP #### [facility] (DEFAULT) [address] [place] [address] 31475 PREALBUMINon 12-25-2024 Prealbumin [Mass/Vol] 8 mg/dL Low 17-34 [facility] Comment on above: Order Comment: If no t done in last 48 hours. Performed By: #### X M #### [facility] (DEFAULT) [address] [place] [address] 56261 PT,INR,PTTon 12-25-2024 aPTT Coag (PPP) [Time] 49.1 s High [facility] INR Coag (Bld) [Relative time] 1.2 {INR} High 0.9 - 1.1 [facility] Interpretation and review of laboratory results Abnormal [facility] PT Coag (PPP) [Time] 15.1 s High [facility] aPTT Coag (Bld) [Time] 49.1 s High 24.0-34.3 [facility] Comment on above: Performed By: #### X M #### [facility] (DEFAULT) [address] [place] [address] 95886 INR Coag (PPP) [Relative time] 1.2 {INR} High 0.9-1.[address] [facility] Comment on above: Performed By: #### X M #### [facility] (DEFAULT) [address] [place] [address] 26931 PT Coag (PPP) [Time] 15.1 s High 11.9-14.[address] [facility] Comment on above: Performed By: #### X M #### [facility] (DEFAULT) [address] [place] [address] 08637 aPTT Coag (Bld) [Time] 67.7 s High 24.0-34.3 [facility] Comment on above: Performed By: #### X M #### [facility] (DEFAULT) [address] [place] [address] 70052 INR Coag (PPP) [Relative time] 1.4 {INR} High 0.9-1.[address] [facility] Comment on above: Performed By: #### X M #### [facility] (DEFAULT) [address] [place] [address] 15344 PT Coag (PPP) [Time] 16.7 s High 11.9-14.[address] [facility] Comment on above: Performed By: #### X M #### [facility] (DEFAULT) [address] [place] [address] 49782 PTTOrdered By: Bakari barone 12-25-2024 aPTT Coag (PPP) [Time] 121.7 s High [facility] Interpretation and review of laboratory results Abnormal [facility] PTTon 12-25-2024 aPTT Coag (Bld) [Time] 121.7 s High 24.0-34.3 [facility] Comment on above: Order Comment: After initiation a PTT should be checked every 6 hours from time of last dose change or, if dose has not changed, 6 hours after last PTT result posted.? The frequent monitoring should occur until PTT in goal range for two consecutive lab draws without dose changes at which time PTTs may be checked no less frequently than every 12 hours.? If dose requires a change, PTT should be monitored at least every 6 hours until titration is no longer indicated, then as directed above.? If PTT above goal range refer to medication administration instructions. Performed By: #### X M #### [facility] (DEFAULT) [address] [address] aPTT Coag (PPP) [Time] 80 s High [facility] Interpretation and review of laboratory results Abnormal [facility] aPTT Coag (Bld) [Time] 80.0 s High 24.0-34.3 [facility] Comment on above: Order Comment: After initiation a PTT should be checked every 6 hours from time of last dose change or, if dose has not changed, 6 hours after last PTT result posted.? The frequent monitoring should occur until PTT in goal range for two consecutive lab draws without dose changes at which time PTTs may be checked no less frequently than every 12 hours.? If dose requires a change, PTT should be monitored at least every 6 hours until titration is no longer indicated, then as directed above.? If PTT above goal range refer to medication administration instructions. Performed By: #### X M #### [facility] (DEFAULT) [address] [address] SELENIUMon 12-25-2024 SELENIUM 156 ng/mL Normal 150-[address] [facility] Comment on above: Result Comment: ADDITIONAL INFORMATION This test was developed and its performance characteristics determined by [facility] in a manner consistent with CLIA requirements. This test has not been cleared or approved by the U.S. Food and Drug Administration. Test Performed by: [facility] [employer] [address] Assessment Director: Tahmina Mosquera Ph.D.; CLIA# [id number] Performed By: #### S URGP #### [facility] (DEFAULT) [address] [address] TRIGLYCERIDEon 12-25-2024 Triglyceride [Mass/Vol] 120 mg/dL Normal <[address] [facility] Comment on above: Result Comment: [<15 0 mg/dL: Desirable] [150-199 mg/dL: Borderline] [200-499 mg/dL: High] [>500 mg/dL: Very High] Performed By: #### T RXN, TRXNP #### [facility] (DEFAULT) [address] [place] [address] 27040 VITAMIN D (25-HYDROXY,TOTAL) on 12-25-2024 25-OH Vitamin D Total 31.7 ng/mL Normal 30.0-100.0 [facility] Comment on above: Order Comment: Vitam in D values have been shown to be falsely decreased in lipemic samples and should be interpreted with caution. Result Comment: <10 Deficiency 10-29 Insufficiency 30-100 Optimal Level >100 Possible Toxicity Performed By: #### X M #### [facility] (DEFAULT) [address] [place] [address] 67486 ZINC, SERUMon 12-25-2024 ZINC, SERUM 52 mcg/dL Low 60-[address] [facility] Comment on above: Result Comment: ADDITIONAL INFORMATION This test was developed and its performance characteristics determined by [facility] in a manner consistent with CLIA requirements. This test has not been cleared or approved by the U.S. Food and Drug Administration. Test Performed by: [facility] [employer] [address] Assessment Director: Tahmina Mosquera Ph.D.; CLIA# [id number] Performed By: #### X M #### [facility] (DEFAULT) [address] [place] [address] 58470 ARTERIAL BLOOD GAS (FULL CELESTE EL)on 12-24-2024 Base Excess -3.0 mmol/L Normal -3.0-3.[address] [facility] Comment on above: Performed By: #### X M #### [facility] (DEFAULT) [address] [place] [address] 08642 Carboxyhemoglobin 1.5 % Normal <=1.5 [facility] Comment on above: Performed By: #### X M #### [facility] (DEFAULT) [address] [place] [address] 59479 Glucose [Mass/Vol] 137 mg/dL Normal Nonfastin g Glucose: 70-[address] [facility] Comment on above: Performed By: #### X M #### [facility] (DEFAULT) [address] [place] [address] 44891 HCO3 (Bld) [Moles/Vol] 24 mmol/L Normal 22-28 [facility] Comment on above: Performed By: #### X M #### [facility] (DEFAULT) [address] [place] [address] 07260 Hematocrit (Bld) [Volume fraction] 39 % Low 40-[address] [facility] Comment on above: Performed By: #### X M #### [facility] (DEFAULT) [address] [place] [address] 73508 Hemoglobin (Bld) [Mass/Vol] 12.5 g/dL Low 13.4-16.[address] [facility] Comment on above: Performed By: #### X M #### [facility] (DEFAULT) [address] [place] [address] 06761 Ionized Calcium, Whole Blood 4.48 mg/dL Low 4.60-5.[address] [facility] Comment on above: Performed By: #### X M #### [facility] (DEFAULT) [address] [place] [address] 42409 Lactate, Whole Blood 0.5 mmol/L Normal 0.5-1.[address] [facility] Comment on above: Performed By: #### X M #### [facility] (DEFAULT) [address] [place] [address] 22116 Methemoglobin 1.1 % Normal <=1.[address] [facility] Comment on above: Performed By: #### X M #### [facility] (DEFAULT) [address] [place] [address] 82306 Oxygen saturation in Blood 94 % Normal 94-[address] [facility] Comment on above: Performed By: #### X M #### [facility] (DEFAULT) [address] [place] [address] 24927 Oxyhemoglobin 91 % Low 94-[address] [facility] Comment on above: Performed By: #### X M #### [facility] (DEFAULT) [address] [place] [address] 06381 pCO2 52 mm Hg High 32-[address] [facility] Comment on above: Performed By: #### X M #### [facility] (DEFAULT) [address] [place] [address] 20757 pH, Arterial 7.28 Low 7.35-7.[address] [facility] Comment on above: Performed By: #### X M #### [facility] (DEFAULT) [address] [place] [address] 36877 pO2 84 mm Hg Normal 83-[address] [facility] Comment on above: Performed By: #### X M #### [facility] (DEFAULT) [address] [place] [address] 56582 Potassium [Moles/Vol] 4.1 mmol/L Normal 3.5-5.0 [facility] Comment on above: Performed By: #### X M #### [facility] (DEFAULT) [address] [place] [address] 99623 Sodium [Moles/Vol] 139 mmol/L Normal 135-145 [facility] Comment on above: Performed By: #### X M #### [facility] (DEFAULT) [address] [place] [address] 65247 Specimen type Nom (Spec) Arterial Normal [facility] Comment on above: Performed By: #### X M #### [facility] (DEFAULT) [address] [place] [address] 30061 Base Excess -0.9 mmol/L Normal -3.0-3.[address] [facility] Comment on above: Performed By: #### X M #### [facility] (DEFAULT) [address] [place] [address] 81139 Carboxyhemoglobin 1.5 % Normal <=1.5 [facility] Comment on above: Performed By: #### X M #### [facility] (DEFAULT) [address] [place] [address] 09186 Glucose [Mass/Vol] 101 mg/dL Normal Nonfastin g Glucose: 70-[address] [facility] Comment on above: Performed By: #### X M #### [facility] (DEFAULT) [address] [place] [address] 96395 HCO3 (Bld) [Moles/Vol] 24 mmol/L Normal 22-28 [facility] Comment on above: Performed By: #### X M #### [facility] (DEFAULT) [address] [place] [address] 73211 Hematocrit (Bld) [Volume fraction] 35 % Low 40-[address] [facility] Comment on above: Performed By: #### X M #### [facility] (DEFAULT) [address] [place] [address] 40525 Hemoglobin (Bld) [Mass/Vol] 11.2 g/dL Low 13.4-16.[address] [facility] Comment on above: Performed By: #### X M #### [facility] (DEFAULT) [address] [place] [address] 57560 Ionized Calcium, Whole Blood 4.64 mg/dL Normal 4.60-5.[address] [facility] Comment on above: Performed By: #### X M #### [facility] (DEFAULT) [address] [place] [address] 05125 Lactate, Whole Blood 0.7 mmol/L Normal 0.5-1.[address] [facility] Comment on above: Performed By: #### X M #### [facility] (DEFAULT) [address] [place] [address] 77015 Methemoglobin 1.1 % Normal <=1.[address] [facility] Comment on above: Performed By: #### X M #### [facility] (DEFAULT) [address] [place] [address] 62170 Oxygen saturation in Blood 99 % High 94-[address] [facility] Comment on above: Performed By: #### X M #### [facility] (DEFAULT) [address] [place] [address] 63660 Oxyhemoglobin 97 % Normal 94-[address] [facility] Comment on above: Performed By: #### X M #### [facility] (DEFAULT) [address] [place] [address] 87556 pCO2 41 mm Hg Normal 32-[address] [facility] Comment on above: Performed By: #### X M #### [facility] (DEFAULT) [address] [place] [address] 03932 pH, Arterial 7.38 Normal 7.35-7.[address] [facility] Comment on above: Performed By: #### X M #### [facility] (DEFAULT) [address] [place] [address] 62897 pO2 194 mm Hg High 83-[address] [facility] Comment on above: Performed By: #### X M #### [facility] (DEFAULT) [address] [place] [address] 27006 Potassium [Moles/Vol] 3.7 mmol/L Normal 3.5-5.0 [facility] Comment on above: Performed By: #### X M #### [facility] (DEFAULT) [address] [place] [address] 92021 Sodium [Moles/Vol] 139 mmol/L Normal 135-145 [facility] Comment on above: Performed By: #### X M #### [facility] (DEFAULT) [address] [place] [address] 92756 Specimen type Nom (Spec) Arterial Normal [facility] Comment on above: Performed By: #### X M #### [facility] (DEFAULT) [address] [place] [address] 99261 ARTERIAL BLOOD GAS PLUS LACT ATEon 12-24-2024 Base Excess -5.6 mmol/L Low -3.0-3.[address] [facility] Comment on above: Performed By: #### X M #### [facility] (DEFAULT) [address] [place] [address] 32396 HCO3 (Bld) [Moles/Vol] 20 mmol/L Low 22-28 [facility] Comment on above: Performed By: #### X M #### [facility] (DEFAULT) [address] [place] [address] 49635 Lactate, Whole Blood 1.1 mmol/L Normal 0.5-1.[address] [facility] Comment on above: Performed By: #### X M #### [facility] (DEFAULT) [address] [place] [address] 82530 Oxygen saturation in Blood 97 % Normal 94-[address] [facility] Comment on above: Performed By: #### X M #### [facility] (DEFAULT) [address] [address] pCO2 35 mm Hg Normal 32-[address] [facility] Comment on above: Performed By: #### X M #### [facility] (DEFAULT) [address] [address] pH, Arterial 7.36 Normal 7.35-7.[address] [facility] Comment on above: Performed By: #### X M #### [facility] (DEFAULT) [address] [address] pO2 85 mm Hg Normal 83-[address] [facility] Comment on above: Performed By: #### X M #### [facility] (DEFAULT) [address] [place] [address] 71648 Specimen type Nom (Spec) Arterial Normal [facility] Comment on above: Performed By: #### X M #### [facility] (DEFAULT) [address] [place] [address] 10186 Base Excess -3.9 mmol/L Low -3.0-3.[address] [facility] Comment on above: Performed By: #### G AS5L #### [facility] (DEFAULT) [address] [place] [address] 88971 HCO3 (Bld) [Moles/Vol] 22 mmol/L Normal 22-28 [facility] Comment on above: Performed By: #### G AS5L #### [facility] (DEFAULT) [address] [place] [address] 14191 Lactate, Whole Blood 1.1 mmol/L Normal 0.5-1.[address] [facility] Comment on above: Performed By: #### G AS5L #### [facility] (DEFAULT) [address] [place] [address] 58598 Oxygen saturation in Blood 93 % Low 94-[address] [facility] Comment on above: Performed By: #### G AS5L #### [facility] (DEFAULT) [address] [place] [address] 56207 pCO2 43 mm Hg Normal 32-[address] [facility] Comment on above: Performed By: #### G AS5L #### [facility] (DEFAULT) [address] [place] [address] 71029 pH, Arterial 7.32 Low 7.35-7.[address] [facility] Comment on above: Performed By: #### G AS5L #### [facility] (DEFAULT) [address] [place] [address] 62338 pO2 73 mm Hg Low 83-[address] [facility] Comment on above: Performed By: #### G AS5L #### [facility] (DEFAULT) [address] [address] Specimen type Nom (Spec) Arterial Normal [facility] Comment on above: Performed By: #### G AS5L #### [facility] (DEFAULT) [address] [address] LORAINE AURIS SCREEN BY PCRo n 12-24-2024 Loraine auris Screen by PCR Not detected Normal Not Detected [facility] Comment on above: Order Comment: This test was performed using a real-time PCR assay. This test was developed, and its performance characteristics determined by [facility]. It has not been cleared or approved by the FDA. The laboratory is regulated under CLIA as qualified to perform high-complexity testing. This test is used for clinical purposes. It should not be regarded as investigational or for research. Performed By: #### X M #### [facility] (DEFAULT) [address] [address] CBC,PLATELETSon 12-24-2024 Hematocrit (Bld) [Volume fraction] 42.5 % Normal 39.6-48.[address] [facility] Comment on above: Performed By: #### X M #### [facility] (DEFAULT) [address] [address] Hemoglobin (Bld) [Mass/Vol] 12.6 g/dL Low 13.4-16.[address] [facility] Comment on above: Performed By: #### X M #### [facility] (DEFAULT) [address] [address] MCV (RBC) [Entitic vol] 82.2 fL Normal 79.0-94.[address] [facility] Comment on above: Performed By: #### X M #### [facility] (DEFAULT) [address] [address] Mean Cell Hgb 24.4 pg Low 26.1-33.[address] [facility] Comment on above: Performed By: #### X M #### [facility] (DEFAULT) [address] [place] [address] 89582 Mean Cell Hgb Conc 29.6 g/dL Low 31.9-36.5 [facility] Comment on above: Performed By: #### X M #### [facility] (DEFAULT) [address] [place] [address] 25997 Platelet mean volume (Bld) [Entitic vol] 10.7 fL Normal 8.7-12.[address] [facility] Comment on above: Performed By: #### X M #### [facility] (DEFAULT) [address] [place] [address] 18665 Platelets (Bld) [#/Vol] 663 10*3/uL High 146-[address] [facility] Comment on above: Performed By: #### X M #### [facility] (DEFAULT) [address] [place] [address] 36253 RBC (Bld) [#/Vol] 5.17 10*6/uL Normal 4.38-5.[address] [facility] Comment on above: Performed By: #### X M #### [facility] (DEFAULT) [address] [place] [address] 11602 RBC Distribution 20.9 % High 10.9-14.3 [facility] Comment on above: Performed By: #### X M #### [facility] (DEFAULT) [address] [place] [address] 07468 WBC (Bld) [#/Vol] 27.10 10*3/uL High 3.73-10.[address] [facility] Comment on above: Performed By: #### X M #### [facility] (DEFAULT) [address] [place] [address] 64232 CHEM 7 (LYTES,BUN,CREA,GLUC) on 12-24-2024 Anion gap [Moles/Vol] 14 mmol/L Normal 7-17 [facility] Comment on above: Performed By: #### X M #### [facility] (DEFAULT) [address] [place] [address] 79685 Chloride [Moles/Vol] 106 mmol/L Normal 98-[address] [facility] Comment on above: Performed By: #### X M #### [facility] (DEFAULT) [address] [place] [address] 80185 CO2 [Moles/Vol] 22 mmol/L Normal 21-31 [facility] Comment on above: Performed By: #### X M #### [facility] (DEFAULT) [address] [place] [address] 17270 Creatinine [Mass/Vol] 1.05 mg/dL Normal 0.70-1.30 [facility] Comment on above: Performed By: #### X M #### [facility] (DEFAULT) [address] [place] [address] 72362 GFR/1.73 sq M.predicted among non-blacks MDRD (S/P/Bld) [Vol rate/Area] 76 mL/min/{1.73_m2} Normal >=[address] [facility] Comment on above: Result Comment: Repo rted eGFR is based on the CKD-EPI 2020 equation using creatinine, age, and sex. Performed By: #### X M #### [facility] (DEFAULT) [address] [place] [address] 46632 Glucose [Mass/Vol] 156 mg/dL Normal Nonfastin -179 mg/dL; Fastin-[address] [facility] Comment on above: Performed By: #### X M #### [facility] (DEFAULT) [address] [place] [address] 83104 Osmolality [Osmolality] 293 mosm/kg Normal 278-[address] [facility] Comment on above: Performed By: #### X M #### [facility] (DEFAULT) [address] [place] [address] 20470 Potassium [Moles/Vol] 4.2 mmol/L Normal 3.5-5.0 [facility] Comment on above: Performed By: #### X M #### [facility] (DEFAULT) [address] [place] [address] Sodium [Moles/Vol] 138 mmol/L Normal 135-145 [facility] Comment on above: Performed By: #### X M #### [facility] (DEFAULT) [address] [place] [address] Urea nitrogen [Mass/Vol] 13 mg/dL Normal 7-[address] [facility] Comment on above: Performed By: #### X M #### [facility] (DEFAULT) [address] [place] [address] Urea nitrogen/Creatinine [Mass ratio] 12 mg/mg Normal [facility] Comment on above: Performed By: #### X M #### [facility] (DEFAULT) [address] [place] [address] ECHOCARDIOGRAM LIMITED/FOLLO Fletcher 12-24-2024 ECHOCARDIOGRAM LIMITED/FOLLOWUP ? Limited to reassess EF. ? Rhythm is sinus. ? Left Ventricle: Chamber size is normal. Wall motion abnormality: Anteroseptal wall. Inferoseptal wall. The ejection fraction is 40 - 45% by visual estimate. Ejection fraction is mildly reduced. ? Right ventricle not well visualized. Chamber size is normal. Systolic function is normal. ? Valves not assessed. ? In direct comparison to the TTE from 12/07/24, the LVEF has improved. Table formatting from the original result was not included. Images from the original result were not included. [facility] Facility [facility] Patient Information Patient Name Conrad Oconnell Legal Sex Male Indication for Exam Priority: STAT Dx: Atrial fibrillation, unspecified type [I48.91 (ICD-10-CM)] Order Question Reason for Exam currently in Afib RVR, history of HFrEF, last know EF 35% in 11/2024 Interpretation Summary Result History is available. ? Limited to reassess EF. ? Rhythm is sinus. ? Left Ventricle: Chamber size is normal. Wall motion abnormality: Anteroseptal wall. Inferoseptal wall. The ejection fraction is 40 - 45% by visual estimate. Ejection fraction is mildly reduced. ? Right ventricle not well visualized. Chamber size is normal. Systolic function is normal. ? Valves not assessed. ? In direct comparison to the TTE from 12/07/24, the LVEF has improved. Findings Left Ventricle Chamber size is normal. Wall motion abnormality: Anteroseptal wall. Inferoseptal wall. The ejection fraction is 44%. Ejection fraction by modified Leger's rule is mildly reduced. Unable to assess diastolic function. Right Ventricle Right ventricle not well visualized. Chamber size is normal. Systolic function is normal. Left Atrium Chamber size is normal. Right Atrium Chamber size is normal. Septum Atrial septum not assessed. Mitral Valve Normal appearing leaflets. Leaflet mobility is normal. Annular calcification. Mitral valve function not assessed. Aortic Valve Aortic valve not well visualized. Trileaflet valve. Leaflet mobility is normal. Aortic valve function not assessed. Tricuspid Valve Tricuspid valve not well visualized. Tricuspid valve function not assessed. Pulmonic Valve Pulmonic valve not assessed. Aorta Aorta not assessed. Pericardium No pericardial effusion. IVC/SVC Inferior vena cava not assessed. Pulmonary Artery Pulmonary artery not assessed. Reading Providers Reading Role Read Date Greg Justice MD [facility] [place] 12/24/2024 Wall Scoring Score Index: 1.56 The following segments are akinetic: basal anteroseptal, basal inferoseptal, mid anteroseptal and mid inferoseptal. The following segments are hypokinetic: apical septal. The following segments are normal: basal anterior, basal inferior, basal inferolateral, basal anterolateral, mid anterior, mid inferior, mid inferolateral, mid anterolateral, apical anterior, apical inferior and apical lateral. Other segments could not be evaluated. Left Heart Measurements LV - Systole LV EDV BP 162 mL LV ESV BP 90 mL BP EF 44 % LV stroke volume BP (ml) 72 mL LV stroke volume index BP 33.49 mL/m2 LV - Diastole MV pk E fuad 0.79 m/s e' septal pk fuad 0.09 m/s e' lateral pk fuad 0.09 m/s Avg e' pk fuad 0.09 m/s E/e' septal ratio 8.86 E/e' lateral ratio 8.64 Avg E/e' ratio 8.75 Left Atrium LA ESV SP 4CH (MOD) 44 mL LA ESV SP 2CH (MOD) 75 mL LA ESV BP (MOD) index 27 mL/m2 Right Heart Measurements RV - Doppler TAPSE 2.36 cm RV S' 13.5 cm/s Right Atrium RA vol index 4CH (MOD) 20 mL/m2 Doppler Measurements - Mitral Valve Stenosis MV pk E fuad 0.79 m/s MV stenosis pressure 1/2 time 25 ms MV valve area p 1/2 method 8.8 cm2 PISA-MS MV pk E fuad 0.79 m/s Vitals Height Weight BSA (Calculated - sq m) BP Pulse 1.753 m (5' 9.02) 99.8 kg (220 lb) 2.15 m2 116/59 98 Performing Staff Di Pettit RDCS Study Details A limited echocardiography study (including microbubbles) was performed. Overall study quality was fair. Contrast indication: evaluation of left ventricle apex. Imaging system used: [employer]. Indications Indications for study: atrial fib / atrial flutter. Exam Details Performed Procedure Technologist Supporting Staff Performing Physician ECHOCARDIOGRAM LIMITED/FOLLOWUP STUDY DETAILS BILLING Di Pettit RDCS Appointment Date/Status Modality Department 12/24/2024 Arrived ECHO TESTING, [facility] ECHOCARDIOGRAPHY ROSS Begin Exam End Exam Begin Exam Questionnaires 12/24/2024 11:48 AM 12/24/2024 12:19 PM [facility] CARD TIMEOUT CHECKLIST Signed at 1310 EDT External Results Report There is an external results report available. Patient Release Status: This result is viewable by the patient (more content not included)... Normal [facility] HEPATIC FUNCTION PANELon Albumin [Mass/Vol] 2.6 g/dL Low 3.5-5.0 [facility] Comment on above: Performed By: #### X M #### [facility] (DEFAULT) [address] [place] [address] 98132 ALP [Catalytic activity/Vol] 49 U/L Normal 32-[address] [facility] Comment on above: Performed By: #### X M #### [facility] (DEFAULT) [address] [place] [address] 52734 ALT [Catalytic activity/Vol] 15 U/L Normal 10-[address] [facility] Comment on above: Performed By: #### X M #### [facility] (DEFAULT) [address] [place] [address] 94767 AST [Catalytic activity/Vol] 25 U/L Normal 10-[address] [facility] Comment on above: Performed By: #### X M #### [facility] (DEFAULT) [address] [place] [address] 26594 Bilirubin [Mass/Vol] 0.6 mg/dL Normal <1.[address] [facility] Comment on above: Performed By: #### X M #### [facility] (DEFAULT) [address] [place] [address] 65576 Bilirubin.indirect [Mass/Vol] 0.3 mg/dL High <0.[address] [facility] Comment on above: Performed By: #### X M #### [facility] (DEFAULT) [address] [place] [address] 51763 Protein [Mass/Vol] 6.0 g/dL Low 6.4-8.3 [facility] Comment on above: Performed By: #### X M #### [facility] (DEFAULT) [address] [place] [address] 87823 IONIZED CALCIUM, WHOLE BLOOD on 12-24-2024 ICA 4.76 mg/dL Normal 4.60-5.[address] [facility] Comment on above: Performed By: #### H EMO #### [facility] (DEFAULT) [address] [place] [address] 72032 MAGNESIUMon 12-24-2024 Magnesium [Mass/Vol] 2.8 mg/dL High 1.6-2.[address] [facility] Comment on above: Performed By: #### X M #### [facility] (DEFAULT) [address] [place] [address] 24424 PHOSPHATE, INORGANICon 12-24 Phosphorous 5.3 mg/dL High 2.2-4.[address] [facility] Comment on above: Performed By: #### X M #### [facility] (DEFAULT) [address] [place] [address] 68699 PT,INR,PTTon 12-24-2024 aPTT Coag (Bld) [Time] 23.3 s Low 24.0-34.3 [facility] Comment on above: Result Comment: Spec imen integrity checked. Results inconsistent with previous results Performed By: #### X M #### [facility] (DEFAULT) [address] [place] [address] 67460 INR Coag (PPP) [Relative time] 1.2 {INR} High 0.9-1.[address] [facility] Comment on above: Performed By: #### X M #### [facility] (DEFAULT) [address] [place] [address] 32843 PT Coag (PPP) [Time] 15.1 s High 11.9-14.[address] [facility] Comment on above: Performed By: #### X M #### [facility] (DEFAULT) [address] [place] [address] 87260 PTTon 12-24-2024 aPTT Coag (Bld) [Time] 62.1 s High 24.0-34.3 [facility] Comment on above: Order Comment: After initiation a PTT should be checked every 6 hours from time of last dose change or, if dose has not changed, 6 hours after last PTT result posted.? The frequent monitoring should occur until PTT in goal range for two consecutive lab draws without dose changes at which time PTTs may be checked no less frequently than every 12 hours.? If dose requires a change, PTT should be monitored at least every 6 hours until titration is no longer indicated, then as directed above.? If PTT above goal range refer to medication administration instructions. Result Comment: Resu lts inconsistent with previous results Performed By: #### C HM7, MGO, TRIG, IPB #### [facility] (DEFAULT) [address] [place] [address] 60346 SURG PATH REQUESTon 12-25-19 25 Case Report Normal [facility] Comment on above: Result Comment: Surg ical Pathology Report Case: [id number] Authorizing Provider: Barbara Call MD Collected: 12/24/2024 01:44 AM Ordering Location: [facility] Received: 12/24/2024 10:20 AM Pathologist: Pricilla Mckenna MD Specimens: A) - SURG PATH, Jejunum B) - SURG PATH, Ileum C) - SURG PATH, Colon Performed By: #### S URGP #### [facility] (DEFAULT) [address] [place] [address] Clinical History Pre-Op. Colon perforation. Medial History: Longstanding persistent atrial fibrillation. COPD. KIM. Benign essential hypertension. Congestive heart failure. Ulcerative colitis. Normal [facility] Comment on above: Performed By: #### S URGP #### [facility] (DEFAULT) [address] [place] [address] Gross Description Normal [facility] Comment on above: Result Comment: The specimens are received in three properly labeled containers with the patient's name and accession number. A. The specimen is designated jejunum and consists of a 12.3 x 3.4 cm in diameter segment of small bowel and the serosal surface is diffusely dark cardoso-brown, congested with adhesions. The specimen is opened and the mucosa is cardoso-valadez, glistening with redundant circumferential folds and no discrete lesion is identified. RS 3 Cassettes: A1, resection margins A2-A3, random section of small bowel B. The specimen is designated ileum and consists of a 13.5 x 3.3 cm in diameter segment of small bowel. The serosal surface is cardoso-brown, diffusely congested with scattered adhesions and there is a 1.3 x 0.8 cm transmural defect which is 3.5 cm from the nearest staple margin. The specimen is opened revealing a cardoso-valadez, glistening and redundant folded mucosa. RS 3 Cassettes: B1, resection margins B2, transmural defect B3, random sections of small bowel C. The specimen is designated colon and consists of a total colectomy comprised of a 5.8 x 3.2 cm segment of terminal ileum, 84.0 x 4.5 to 6.7 cm in diameter colon with attached appendix and pericolonic adipose tissue. The serosal surface is cardoso-valadez, glistening and near the distal descending colon the serosa is diffusely congested with white-green exudate and indurated pericolonic adipose tissue. The specimen is opened and the majority of the mucosa is cardoso-valadez, glistening with redundant circumferential folds and sectioning through the distal indurated descending colon reveals diffuse diverticula with underlying abscess extending into the indurated, white-yellow adipose tissue. The appendix is 3.8 x 0.6 cm and sectioned to reveal an intact appendiceal wall with a pinpoint lumen. Within the distal pericolonic fat two, 0.6 cm cardoso-valadez possible lymph nodes are identified. RS 8 Cassettes: C1, resection margin C2-C3, abscess C4-C5, diverticula C6, random uninvolved colon C7, appendix C8, two lymph nodes Lab Use Only: JobID [id number] Grosser for this case was: Jonatan Alexander Performed By: #### S URGP #### [facility] (DEFAULT) [address] [place] [address] Microscopic Description A microscopic examination was performed. [facility] Comment on above: Performed By: #### S URGP #### [facility] (DEFAULT) [address] [place] [address] Pathologic Diagnosis [facility] Comment on above: Result Comment: A. S mall bowel, jejunum, excision: Portion of jejunum with fibrous serosal adhesions, and acute and organizing subserosal inflammation and fibrosis Foreign body giant cell reaction No mucosal abnormalities Negative for dysplasia or malignancy B. Small bowel, ileum, excision: Portion of ileum with fibrous serosal adhesions, acute and organizing subserosal inflammation and fibrosis Submucosal edema No mucosal abnormalities Negative for dysplasia or malignancy C. Colon, total colectomy: Portion of colon with diverticular disease, ruptured diverticulitis with shayna-colonic abscess, and fibrous serosal adhesions Small bowel with acute serositis and fibrous serosal adhesions Appendix with fibroadipose obliteration of the tip No mucosal abnormalities Two (2) benign lymph nodes at 1836 EDT Performed By: #### S URGP #### [facility] (DEFAULT) [address] [address] Professional Interpretation Performed at: [facility] Comment on above: Result Comment: [facility] For Immediate Release to [facility] Yes [address] [address] Performed By: #### S URGP #### [facility] (DEFAULT) [address] [place] [address] 20796 ABORH TYPE RECONFIRMATIONon 12-23-2024 ABO/RH(D) TYPE Positive Normal [facility] Comment on above: Performed By: #### T YPEC #### [facility] (DEFAULT) [address] [place] [address] 48578 Basic Metabolic Profile (BMP )on 12-23-2024 BUN Normal 4-19 [facility] Comment on above: Result Comment: Canc elled via OM: Order cancelled - Patient discharged Performed By: #### L 500.2500, L100.0100 ####[facility] [address] [place], [address] BUN/CRE Normal 10-20 [facility] Comment on above: Result Comment: Canc elled via OM: Order cancelled - Patient discharged Performed By: #### L 500.2500, L100.0100 ####[facility] [address] [place], [address] Calcium Normal 7.6-11.0 [facility] Comment on above: Result Comment: Canc elled via OM: Order cancelled - Patient discharged Performed By: #### L 500.2500, L100.0100 ####[facility] [address] [place], [address] CL Normal 98-108 [facility] Comment on above: Result Comment: Canc elled via OM: Order cancelled - Patient discharged Performed By: #### L 500.2500, L100.0100 ####[facility] [address] [place], [address] CO2 Normal 21.0-32.0 [facility] Comment on above: Result Comment: Canc elled via OM: Order cancelled - Patient discharged Performed By: #### L 500.2500, L100.0100 ####[facility] [address] [place], [address] CREAT,SERUM Normal 0.70-1.20 [facility] Comment on above: Result Comment: Canc elled via OM: Order cancelled - Patient discharged Performed By: #### L 500.2500, L100.0100 ####[facility] [address] [place], [address] eGFR Normal >60 [facility] Comment on above: Result Comment: Canc elled via OM: Order cancelled - Patient discharged Performed By: #### L 500.2500, L100.0100 ####[facility] [address] [place], [address] GAP Normal 5-15 [facility] Comment on above: Result Comment: Canc elled via OM: Order cancelled - Patient discharged Performed By: #### L 500.2500, L100.0100 ####[facility] [address] [place], [address] GLU Normal 70-99 [facility] Comment on above: Result Comment: Canc elled via OM: Order cancelled - Patient discharged Performed By: #### L 500.2500, L100.0100 ####[facility] [address] [place], [address] Potassium Normal 3.3-5.1 [facility] Comment on above: Result Comment: Canc elled via OM: Order cancelled - Patient discharged Performed By: #### L 500.2500, L100.0100 ####[facility] [address] [place], [address] Basic Metabolic Profile (BMP) Normal 133-145 [facility] Comment on above: Result Comment: Canc elled via OM: Order cancelled - Patient discharged Performed By: #### L 500.2500, L100.0100 ####[facility] [address] [place], [address] C REACTIVE PROTEINon 12-23- 025 CRP [Mass/Vol] 160.67 mg/L High <10.00 [facility] Comment on above: Performed By: #### G AS5L #### [facility] (DEFAULT) [address] [place] [address] CALCIUMon 12-23-2024 Calcium [Mass/Vol] 7.8 mg/dL Low 8.6-10.5 [facility] Comment on above: Performed By: #### G AS5L #### [facility] (DEFAULT) [address] [place] [address] CBC W/Diff, Automatedon Absolute Neut Normal 2.0-7.7 [facility] Comment on above: Result Comment: Canc elled via OM: Order cancelled - Patient discharged Performed By: #### L 500.2500, L100.0100 ####[facility] [address] [place], [address] HCT Normal 40-54 [facility] Comment on above: Result Comment: Canc elled via OM: Order cancelled - Patient discharged Performed By: #### L 500.2500, L100.0100 ####[facility] [address] [place], [address] HGB Normal 13.0-16.5 [facility] Comment on above: Result Comment: Canc elled via OM: Order cancelled - Patient discharged Performed By: #### L 500.2500, L100.0100 ####[facility] [address] [place], [address] MCH Normal 27.0-32.0 [facility] Comment on above: Result Comment: Canc elled via OM: Order cancelled - Patient discharged Performed By: #### L 500.2500, L100.0100 ####[facility] [address] [place], [address] MCHC Normal 32-36 [facility] Comment on above: Result Comment: Canc elled via OM: Order cancelled - Patient discharged Performed By: #### L 500.2500, L100.0100 ####[facility] [address] [place], [address] MCV Normal 80-94 [facility] Comment on above: Result Comment: Canc elled via OM: Order cancelled - Patient discharged Performed By: #### L 500.2500, L100.0100 ####[facility] [address] [place], [address] NEUT% Normal 47-70 [facility] Comment on above: Result Comment: Canc elled via OM: Order cancelled - Patient discharged Performed By: #### L 500.2500, L100.0100 ####[facility] [address] [place], [address] PLT Normal 150-450 [facility] Comment on above: Result Comment: Canc elled via OM: Order cancelled - Patient discharged Performed By: #### L 500.2500, L100.0100 ####[facility] [address] [place], [address] RBC Normal 4.6-6.2 [facility] Comment on above: Result Comment: Canc elled via OM: Order cancelled - Patient discharged Performed By: #### L 500.2500, L100.0100 ####[facility] [address] [place], [address] RDW CV Normal 11.6-14.6 [facility] Comment on above: Result Comment: Canc elled via OM: Order cancelled - Patient discharged Performed By: #### L 500.2500, L100.0100 ####[facility] [address] [place], [address] RDW SD Normal 35.1-43.9 [facility] Comment on above: Result Comment: Canc elled via OM: Order cancelled - Patient discharged Performed By: #### L 500.2500, L100.0100 ####[facility] [address] [place], [address] WBC Normal 4.4-11.0 [facility] Comment on above: Result Comment: Canc elled via OM: Order cancelled - Patient discharged Performed By: #### L 500.2500, L100.0100 ####[facility] [facility] [address] [place], [address] CBC,PLATELETSon 12-23-2024 Hematocrit (Bld) [Volume fraction] 36.7 % Low 39.6-48.[address] [facility] Comment on above: Performed By: #### X M #### [facility] (DEFAULT) [address] [place] [address] 58371 Hemoglobin (Bld) [Mass/Vol] 10.8 g/dL Low 13.4-16.[address] [facility] Comment on above: Performed By: #### X M #### [facility] (DEFAULT) [address] [place] [address] 96216 MCV (RBC) [Entitic vol] 81.4 fL Normal 79.0-94.[address] [facility] Comment on above: Performed By: #### X M #### [facility] (DEFAULT) [address] [place] [address] 98088 Mean Cell Hgb 23.9 pg Low 26.1-33.[address] [facility] Comment on above: Performed By: #### X M #### [facility] (DEFAULT) [address] [place] [address] 82102 Mean Cell Hgb Conc 29.4 g/dL Low 31.9-36.5 [facility] Comment on above: Performed By: #### X M #### [facility] (DEFAULT) [address] [place] [address] 29259 Platelet mean volume (Bld) [Entitic vol] 10.3 fL Normal 8.7-12.[address] [facility] Comment on above: Performed By: #### X M #### [facility] (DEFAULT) [address] [place] [address] 03050 Platelets (Bld) [#/Vol] 398 10*3/uL High 146-[address] [facility] Comment on above: Performed By: #### X M #### [facility] (DEFAULT) [address] [place] [address] 01244 RBC (Bld) [#/Vol] 4.51 10*6/uL Normal 4.38-5.[address] [facility] Comment on above: Performed By: #### X M #### [facility] (DEFAULT) [address] [place] [address] 76902 RBC Distribution 20.1 % High 10.9-14.3 [facility] Comment on above: Performed By: #### X M #### [facility] (DEFAULT) [address] [place] [address] 12205 WBC (Bld) [#/Vol] 11.94 10*3/uL High 3.73-10.[address] [facility] Comment on above: Performed By: #### X M #### [facility] (DEFAULT) [address] [place] [address] 31685 CHEM 7 (LYTES,BUN,CREA,GLUC) on 12-23-2024 Anion gap [Moles/Vol] 15 mmol/L Normal 7-17 [facility] Comment on above: Performed By: #### G AS5L #### [facility] (DEFAULT) [address] [place] [address] 17554 Chloride [Moles/Vol] 103 mmol/L Normal 98-[address] [facility] Comment on above: Performed By: #### G AS5L #### [facility] (DEFAULT) [address] [place] [address] 30241 CO2 [Moles/Vol] 24 mmol/L Normal 21-31 [facility] Comment on above: Performed By: #### G AS5L #### [facility] (DEFAULT) [address] [place] [address] 36554 Creatinine [Mass/Vol] 0.88 mg/dL Normal 0.70-1.30 [facility] Comment on above: Performed By: #### G AS5L #### [facility] (DEFAULT) [address] [place] [address] 77467 eGFR, CKD-EPI, Male > Normal >=[address] [facility] Comment on above: Result Comment: Repo rted eGFR is based on the CKD-EPI 2020 equation using creatinine, age, and sex. Performed By: #### G AS5L #### [facility] (DEFAULT) [address] [place] [address] 90782 Glucose [Mass/Vol] 81 mg/dL Normal Nonfastin -179 mg/dL; Fastin-[address] [facility] Comment on above: Performed By: #### G AS5L #### [facility] (DEFAULT) [address] [place] [address] 68436 Osmolality [Osmolality] 288 mosm/kg Normal 278-[address] [facility] Comment on above: Performed By: #### G AS5L #### [facility] (DEFAULT) [address] [place] [address] 07202 Potassium [Moles/Vol] 3.6 mmol/L Normal 3.5-5.0 [facility] Comment on above: Performed By: #### G AS5L #### [facility] (DEFAULT) [address] [place] [address] 67170 Sodium [Moles/Vol] 138 mmol/L Normal 135-145 [facility] Comment on above: Performed By: #### G AS5L #### [facility] (DEFAULT) [address] [place] [address] 13072 Urea nitrogen [Mass/Vol] 15 mg/dL Normal 7-[address] [facility] Comment on above: Performed By: #### G AS5L #### [facility] (DEFAULT) [address] [place] [address] 98549 Urea nitrogen/Creatinine [Mass ratio] 17 mg/mg Normal [facility] Comment on above: Performed By: #### G AS5L #### [facility] (DEFAULT) [address] [place] [address] 66261 MAGNESIUMon 12-23-2024 Magnesium [Mass/Vol] 2.0 mg/dL Normal 1.6-2.[address] [facility] Comment on above: Performed By: #### G AS5L #### [facility] (DEFAULT) [address] [place] [address] 83792 PHOSPHATE, INORGANICon 12-23 Phosphorous 2.7 mg/dL Normal 2.2-4.[address] [facility] Comment on above: Performed By: #### G AS5L #### [facility] (DEFAULT) [address] [place] [address] 01164 PTTon 12-23-2024 aPTT Coag (Bld) [Time] 35.5 s High 24.0-34.3 [facility] Comment on above: Order Comment: After initiation a PTT should be checked every 6 hours from time of last dose change or, if dose has not changed, 6 hours after last PTT result posted.? The frequent monitoring should occur until PTT in goal range for two consecutive lab draws without dose changes at which time PTTs may be checked no less frequently than every 12 hours.? If dose requires a change, PTT should be monitored at least every 6 hours until titration is no longer indicated, then as directed above.? If PTT above goal range refer to medication administration instructions. Performed By: #### X M #### [facility] (DEFAULT) [address] [place] [address] 56976 aPTT Coag (Bld) [Time] 31.4 s Normal 24.0-34.3 [facility] Comment on above: Order Comment: Colle ct fluids or tissues in a sterile container. If collecting swabs, must be collected in a Port-A-Cul tube. Please add to specimen [id number] Performed By: #### A CARMEN #### [facility] (DEFAULT) [address] [place] [address] 73423 SEDIMENTATION RATE, AUTOMATE Don 12-23-2024 ESR Westergren 115 mm/hr High <[address] [facility] Comment on above: Performed By: #### X M #### [facility] (DEFAULT) [address] [place] [address] 23478 TYPE AND SCREENon 12-23-2024 ABO/RH(D) TYPE Positive Normal [facility] Comment on above: Performed By: #### X M #### [facility] (DEFAULT) [address] [place] [address] 53877 Specimen Expiration 12/26/2024 23:[address] [facility] Comment on above: Performed By: #### X M #### [facility] (DEFAULT) [address] [place] [address] 80226 12 Lead EKGon 12-22-2024 12 Lead EKG Normal [facility] Absolute lymphocyte countOrd ered By: Zechariah Plasencia on 12-22-2024 Lymphocytes Auto (Unsp spec) [#/Vol] 1.21 10*3/uL 0.83-4.51 [facility] Absolute neutrophil countOrd ered By: Zechariah Plasencia on 12-22-2024 Neutrophils (Bld) [#/Vol] 14.1 10*3/uL High 2.0-7.7 [facility] Activated partial thrombopla stin time (aPTT) in platelet poor plasma by coagulation aOrdered By: Zechariah Plasencia on 12-22-2024 aPTT Coag (PPP) [Time] 34.4 s 24.1-36.2 [facility] Anion gap in Serum or Plasma Ordered By: Zechariah Plasencia on 12-22-2024 Anion gap [Moles/Vol] 14 mmol/L 5-15 [facility] Automated lymphocyte count a s percentage of total leukocytesOrdered By: Zechariah Plasencia on 12-22-2024 Lymphocytes/100 WBC Auto (Unsp spec) 7.5 % Low 19-41 [facility] BUN/creatinine ratioOrdered By: Zechariah Plasencia on 12-22-2024 Urea nitrogen/Creatinine [Mass ratio] 13.5 mg/mg 10- [facility] Basic Metabolic Profile (BMP )on 12-22-2024 BUN/CRE 13.5 RATIO Normal 10-20 [facility] Comment on above: Performed By: #### L 500.2500, L100.0100 ####[facility] [address] [place], [address] Calcium [Mass/Vol] 8.2 mg/dL Normal 7.6-11.0 [facility] Comment on above: Performed By: #### L 500.2500, L100.0100 ####[facility] [address] [place], [address] Chloride [Moles/Vol] 100 mmol/L Normal 98-[address] [facility] Comment on above: Performed By: #### L 500.2500, L100.0100 ####[facility] [address] [place], [address] CO2 [Moles/Vol] 22.6 mmol/L Normal 21.0-32.0 [facility] Comment on above: Performed By: #### L 500.2500, L100.0100 ####[facility] [address] [place], [address] Creatinine [Mass/Vol] 1.11 mg/dL Normal 0.70-1.20 [facility] Comment on above: Performed By: #### L 500.2500, L100.0100 ####[facility] [address] [place], [address] ECRCL 74.04 ml/min Normal 50-250 [facility] Comment on above: Performed By: #### L 500.2500, L100.0100 ####[facility] [address] [place], [address] GAP 14 Normal 5-15 [facility] Comment on above: Performed By: #### L 500.2500, L100.0100 ####[facility] [address] [place], [address] GFR/1.73 sq M.predicted among non-blacks MDRD (S/P/Bld) [Vol rate/Area] 71 mL/min/{1.73_m2} Normal >60 [facility] Comment on above: Result Comment: mL/m in/1.73m2 CKD-EPI Creatinine Equation (2020) Performed By: #### L 500.2500, L100.0100 ####[facility] [address] [place], [address] Glucose [Mass/Vol] 115 mg/dL High 70-99 [facility] Comment on above: Performed By: #### L 500.2500, L100.0100 ####[facility] [address] [place], [address] Potassium [Moles/Vol] 3.8 mmol/L Normal 3.3-5.1 [facility] Comment on above: Performed By: #### L 500.2500, L100.0100 ####[facility] [address] [place], [address] Sodium [Moles/Vol] 136 mmol/L Normal 133-145 [facility] Comment on above: Performed By: #### L 500.2500, L100.0100 ####[facility] [address] [place], [address] Urea nitrogen [Mass/Vol] 15 mg/dL Normal 4-19 [facility] Comment on above: Performed By: #### L 500.2500, L100.0100 ####[facility] [address] [place], [address] Basophil percentageOrdered B y: Zechariah Plasencia on 12-22-2024 Basophils/100 WBC (Bld) 0.3 % 0-1 [facility] CALCIUMon 12-22-2024 Calcium [Mass/Vol] 8.2 mg/dL Low 8.6-10.5 [facility] Comment on above: Performed By: #### X M #### [facility] (DEFAULT) [address] [place] [address] 87911 CBC W/Diff, Automatedon Anisocytosis Ql (Bld) 1+ Normal [facility] Comment on above: Performed By: #### L 500.2500, L100.0100 ####[facility] [address] [place], [place], [address] CBC,PLATELETSon 12-22-2024 Hematocrit (Bld) [Volume fraction] 38.0 % Low 39.6-48.[address] [facility] Comment on above: Performed By: #### H EMOGC #### [facility] (DEFAULT) [address] [place] [address] 06022 Hemoglobin (Bld) [Mass/Vol] 11.4 g/dL Low 13.4-16.[address] [facility] Comment on above: Performed By: #### H EMO #### [facility] (DEFAULT) [address] [place] [address] 05221 MCV (RBC) [Entitic vol] 81.7 fL Normal 79.0-94.[address] [facility] Comment on above: Performed By: #### H EMOGC #### [facility] (DEFAULT) [address] [place] [address] 24145 Mean Cell Hgb 24.5 pg Low 26.1-33.[address] [facility] Comment on above: Performed By: #### H EMOGC #### [facility] (DEFAULT) [address] [place] [address] 36070 Mean Cell Hgb Conc 30.0 g/dL Low 31.9-36.5 [facility] Comment on above: Performed By: #### H EMOGC #### [facility] (DEFAULT) [address] [place] [address] 70160 Platelet mean volume (Bld) [Entitic vol] 10.4 fL Normal 8.7-12.[address] [facility] Comment on above: Performed By: #### H EMOGC #### [facility] (DEFAULT) [address] [place] [address] 76800 Platelets (Bld) [#/Vol] 421 10*3/uL High 146-[address] [facility] Comment on above: Performed By: #### H EMOGC #### [facility] (DEFAULT) [address] [place] [address] 36210 RBC (Bld) [#/Vol] 4.65 10*6/uL Normal 4.38-5.[address] [facility] Comment on above: Performed By: #### H EMOGC #### [facility] (DEFAULT) [address] [place] [address] 89944 RBC Distribution 20.2 % High 10.9-14.3 [facility] Comment on above: Performed By: #### H EMOGC #### [facility] (DEFAULT) [address] [place] [address] 31114 WBC (Bld) [#/Vol] 13.08 10*3/uL High 3.73-10.[address] [facility] Comment on above: Performed By: #### H EMOGC #### [facility] (DEFAULT) [address] [place] [address] 43657 CHEM 7 (LYTES,BUN,CREA,GLUC) on 12-22-2024 Anion gap [Moles/Vol] 17 mmol/L Normal 7-17 [facility] Comment on above: Performed By: #### X M #### [facility] (DEFAULT) [address] [place] [address] 43307 Chloride [Moles/Vol] 103 mmol/L Normal 98-[address] [facility] Comment on above: Performed By: #### X M #### [facility] (DEFAULT) [address] [place] [address] 11717 CO2 [Moles/Vol] 23 mmol/L Normal 21-31 [facility] Comment on above: Performed By: #### X M #### [facility] (DEFAULT) [address] [place] [address] 94033 Creatinine [Mass/Vol] 0.99 mg/dL Normal 0.70-1.30 [facility] Comment on above: Performed By: #### X M #### [facility] (DEFAULT) [address] [place] [address] 87066 GFR/1.73 sq M.predicted among non-blacks MDRD (S/P/Bld) [Vol rate/Area] 81 mL/min/{1.73_m2} Normal >=[address] [facility] Comment on above: Result Comment: Repo rted eGFR is based on the CKD-EPI 2020 equation using creatinine, age, and sex. Performed By: #### X M #### [facility] (DEFAULT) [address] [place] [address] 24334 Glucose [Mass/Vol] 81 mg/dL Normal Nonfastin -179 mg/dL; Fastin-[address] [facility] Comment on above: Performed By: #### X M #### [facility] (DEFAULT) [address] [place] [address] 11116 Osmolality [Osmolality] 290 mosm/kg Normal 278-[address] [facility] Comment on above: Performed By: #### X M #### [facility] (DEFAULT) [address] [place] [address] 64755 Potassium [Moles/Vol] 3.6 mmol/L Normal 3.5-5.0 [facility] Comment on above: Performed By: #### X M #### [facility] (DEFAULT) [address] [place] [address] 91918 Sodium [Moles/Vol] 139 mmol/L Normal 135-145 [facility] Comment on above: Performed By: #### X M #### [facility] (DEFAULT) [address] [place] [address] Urea nitrogen [Mass/Vol] 16 mg/dL Normal 7-[address] [facility] Comment on above: Performed By: #### X M #### [facility] (DEFAULT) [address] [place] [address] Urea nitrogen/Creatinine [Mass ratio] 16 mg/mg Normal [facility] Comment on above: Performed By: #### X M #### [facility] (DEFAULT) [address] [place] [address] CXR for Line Placementon CXR for Line Placement Normal [facility] Carbon dioxide, total [Moles /volume] in Central venous bloodOrdered By: Zechariah Plasencia on 12-22-2024 CO2 [Moles/Vol] 22.6 mmol/L 21.0-32.0 [facility] Chloride assayOrdered By: Shady Plasencia on 12-22-2024 Chloride [Moles/Vol] 100 mmol/L 98-[address] [facility] Electrocardiogram reportOrde red By: Basil Hunter on 12-22-2024 EKG study [facility] Work Phone: [phone] EKG study [facility] Work Phone: [phone] Eosinophil percentageOrdered By: Zechariah Plasencia on 12-22-2024 Eosinophils/100 WBC (Bld) 0.2 % 0-5 [facility] Erythrocyte distribution wid th ratioOrdered By: Zechariah Plasencia on 12-22-2024 Erythrocyte distribution width (RBC) [Ratio] 20.3 % High 11.6-14.6 [facility] Erythrocyte distribution wid th standard deviationOrdered By: Zechariah lPasencia on 12-22-2024 Erythrocyte distribution width (RBC) [Ratio] 59.3 fl High 35.1-43.9 [facility] Glomerular filtration rate ( GFR) estimation/1.73 sq m using serum, plasma, or whole bOrdered By: Zechariah Plasencia on 12-22-2024 GFR/1.73 sq M.predicted among non-blacks MDRD (S/P/Bld) [Vol rate/Area] 71 mL/min/{1.73_m2} >60 [facility] Comment on above: mL/min/1.73m2 CKD-EP I Creatinine Equation (2020) Hematocrit Auto (Bld) [Volum e fraction]Ordered By: Zechariah Plasencia on 12-22-2024 Hematocrit (Bld) [Volume fraction] 39.2 % Low 40-54 [facility] Hemoglobin measurementOrdere d By: Zechariah Plasencia on 12-22-2024 Hemoglobin (Bld) [Mass/Vol] 11.9 g/dL Low 13.0-16.5 [facility] Immature granulocytes/100 WB C Auto (Bld)Ordered By: Zechariah Plasencia on 12-22-2024 Immature granulocytes/100 WBC (Bld) 1.400 % High 0.0-0.9 [facility] Comment on above: IG% - Immature Granu locytes (promyelocytes, myelocytes and metamyelocytes) > 1% indicates that a LEFT SHIFT is Present. International normalized rat io (INR) calculationOrdered By: Zechariah Plasencia on 12-22-2024 INR Coag (Bld) [Relative time] 1.4 {INR} [facility] Laboratory - Hematology and Cell countsOrdered By: Zechariah Plasencia on 12-22-2024 Anisocytosis Ql (Bld) 1+ [facility] MAGNESIUMon 12-22-2024 Magnesium [Mass/Vol] 2.0 mg/dL Normal 1.6-2.[address] [facility] Comment on above: Performed By: #### X M #### [facility] (DEFAULT) [address] [place] [address] 59187 MCV (mean corpuscular volume ) determinationOrdered By: Zechariah Plasencia on 12-22-2024 MCV (RBC) [Entitic vol] 81.2 fL 80-94 [facility] Mean corpuscular hemoglobin (MCH) determinationOrdered By: Zechariah Plasencia on 12-22-2024 MCH (RBC) [Entitic mass] 24.6 pg Low 27.0-32.0 [facility] Mean corpuscular hemoglobin concentration (MCHC) determinationOrdered By: Zechariah Plasencia on 12-22-2024 MCHC (RBC) [Mass/Vol] 30.4 g/dL Low 32-36 [facility] Mean platelet volume determi nationOrdered By: Zechariah Plasencia on 12-22-2024 Platelet mean volume (Bld) [Entitic vol] 10.7 fL 6.2-12.0 [facility] Monocyte percentageOrdered B y: Zechariah Plasencia on 12-22-2024 Monocytes/100 WBC (Bld) 3.5 % 0-10 [facility] Neutrophil percentageOrdered By: Zechariah Plasencia on 12-22-2024 Neutrophils/100 WBC (Bld) 87.1 % High 47-70 [facility] No Panel InformationOrdered By: Zechariah Plasencia on 12-22-2024 1+ [facility] Nucleated red blood cell per centageOrdered By: Zechariah Plasencia on 12-22-2024 Nucleated RBC/100 WBC (Bld) [Ratio] 0 % 0-5 [facility] PHOSPHATE, INORGANICon 12-22 Phosphorous 2.5 mg/dL Normal 2.2-4.[address] [facility] Comment on above: Performed By: #### X M #### [facility] (DEFAULT) [address] [address] PT,INR,PTTon 12-22-2024 aPTT Coag (Bld) [Time] 30.7 s Normal 24.0-34.3 [facility] Comment on above: Performed By: #### X M #### [facility] (DEFAULT) [address] [place] [address] 93630 INR Coag (PPP) [Relative time] 1.4 {INR} High 0.9-1.[address] [facility] Comment on above: Performed By: #### X M #### [facility] (DEFAULT) [address] [place] [address] 31256 PT Coag (PPP) [Time] 17.3 s High 11.9-14.[address] [facility] Comment on above: Performed By: #### X M #### [facility] (DEFAULT) [address] [place] [address] Partial Thromboplast Timeon 12-22-2024 aPTT Coag (Bld) [Time] 34.4 s Normal 24.1-36.2 [facility] Comment on above: Performed By: #### L 300.3900, L300.4310 ####[facility] [address] [place], [address] Platelet countOrdered By: Shady Plasencia on 12-22-2024 Platelets (Bld) [#/Vol] 449 10*3/uL 150-450 [facility] Potassium measurement (mass/ volume)Ordered By: Zechariah Plasencia on 12-22-2024 Potassium (Unsp spec) [Mass/Vol] 3.8 mmol/L 3.3-5.1 [facility] Prothrombin Time w/INRon INR Coag (PPP) [Relative time] 1.4 {INR} Normal [facility] Comment on above: Performed By: #### L 300.3900, L300.4310 ####[facility] [address] [place], [address] PT Coag (PPP) [Time] 17.9 s High 11.7-14.[address] [facility] Comment on above: Performed By: #### L 300.3900, L300.4310 ####[facility] [address] [place], [address] Prothrombin timeOrdered By: Zechariah Plasencia on 12-22-2024 PT Coag (PPP) [Time] 17.9 s High 11.7-14.[address] [facility] RBC Auto (Bld) [#/Vol]Ordere d By: Zechariah Plasencia on 12-22-2024 RBC (Bld) [#/Vol] 4.83 10*6/uL 4.6-6.2 [facility] Serum creatinine measurement (mass/volume)Ordered By: Zechariah Plasencia on 12-22-2024 Creatinine [Mass/Vol] 1.11 mg/dL 0.70-1.20 [facility] Serum glucose measurement (m ass/volume)Ordered By: Zechariah Plasencia on 12-22-2024 Glucose [Mass/Vol] 115 mg/dL High 70-99 [facility] Serum or plasma calcium tremayne urement (mass/volume)Ordered By: Zechariah Plasencia on 12-22-2024 Calcium [Mass/Vol] 8.2 mg/dL 7.6-11.0 [facility] Serum or plasma urea nitroge n measurement (mass/volume)Ordered By: Zechariah Plasencia on 12-22-2024 Urea nitrogen [Mass/Vol] 15 mg/dL 4-19 [facility] Sodium levelOrdered By: Zechariah Plasencia on 12-22-2024 Sodium [Moles/Vol] 136 mmol/L 133-145 [facility] Venous Duplex US, Unilateral on 12-22-2024 Venous Duplex US, Unilateral Normal [facility] [facility] Venous duplex ultrasound rep ortOrdered By: Dedrick Alexander on 12-22-2024 US Vein [facility] Other Phone: White blood cell (WBC) count Ordered By: Zechariah Plasencia on 12-22-2024 WBC (Bld) [#/Vol] 16.2 10*3/uL High 4.4-11.0 [facility] 12 Lead EKGon 12-21-2024 12 Lead EKG Normal [facility] Abd Inc Decub and/or Erecton 12-21-2024 Abd Inc Decub and/or Erect Normal [facility] Abdomen/Pelvis WITH Contrast on 12-21-2024 Abdomen/Pelvis WITH Contrast Normal [facility] Basic Metabolic Profile (BMP )on 12-21-2024 BUN/CRE 11.5 RATIO Normal 10-20 [facility] Comment on above: Performed By: #### L 500.2500, L100.0100 ####[facility] [address] [place], [address] Calcium [Mass/Vol] 8.1 mg/dL Normal 7.6-11.0 [facility] Comment on above: Performed By: #### L 500.2500, L100.0100 ####[facility] [address] [place], [address] Chloride [Moles/Vol] 102 mmol/L Normal 98-[address] [facility] Comment on above: Performed By: #### L 500.2500, L100.0100 ####[facility] [address] [place], [address] CO2 [Moles/Vol] 22.1 mmol/L Normal 21.0-32.0 [facility] Comment on above: Performed By: #### L 500.2500, L100.0100 ####[facility] [address] [place], [address] Creatinine [Mass/Vol] 1.03 mg/dL Normal 0.70-1.20 [facility] Comment on above: Performed By: #### L 500.2500, L100.0100 ####[facility] [address] [place], [address] ECRCL 81.21 ml/min Normal 50-250 [facility] Comment on above: Performed By: #### L 500.2500, L100.0100 ####[facility] [address] [place], [address] GAP 14 Normal 5-15 [facility] Comment on above: Performed By: #### L 500.2500, L100.0100 ####[facility] [address] [place], [address] GFR/1.73 sq M.predicted among non-blacks MDRD (S/P/Bld) [Vol rate/Area] 78 mL/min/{1.73_m2} Normal >60 [facility] Comment on above: Result Comment: mL/m in/1.73m2 CKD-EPI Creatinine Equation (2020) Performed By: #### L 500.2500, L100.0100 ####[facility] [address] [place], [address] Glucose [Mass/Vol] 108 mg/dL High 70-99 [facility] Comment on above: Performed By: #### L 500.2500, L100.0100 ####[facility] [address] [place], [address] Potassium [Moles/Vol] 3.6 mmol/L Normal 3.3-5.1 [facility] Comment on above: Performed By: #### L 500.2500, L100.0100 ####[facility] [address] [place], [address] Sodium [Moles/Vol] 138 mmol/L Normal 133-145 [facility] Comment on above: Performed By: #### L 500.2500, L100.0100 ####[facility] [address] [place], [address] Urea nitrogen [Mass/Vol] 12 mg/dL Normal 4-19 [facility] Comment on above: Performed By: #### L 500.2500, L100.0100 ####[facility] [address] [place], [address] Blood manual differential co mment interpretation (narrative result)Ordered By: Zechariah Plasencia on 12-21-2024 Manual differential comment Kwasi (Bld) [Interp] SCANNED [facility] CBC W/Diff, Automatedon 06- Anisocytosis Ql (Bld) 2+ Normal [facility] Comment on above: Performed By: #### L 500.2500, L100.0100 ####[facility] [address] [place], [address] SMEAR COMMENT SCANNED Normal [facility] Comment on above: Performed By: #### L 500.2500, L100.0100 ####[facility] [address] [place], [address] Electrocardiogram reportOrde red By: Basil Hunter on 12-21-2024 EKG study [facility] Work Phone: [phone] Lead EKGon 12-20-2024 12 Lead EKG Normal [facility] 12 Lead EKG Normal [facility] Basic Metabolic Profile (BMP )on 12-20-2024 BUN/CRE 11.5 RATIO Normal 10-20 [facility] Comment on above: Performed By: #### L 500.2500, L100.0500, L100.4500 ####[facility] [address] [place], [address] Calcium [Mass/Vol] 8.1 mg/dL Normal 7.6-11.0 [facility] Comment on above: Performed By: #### L 500.2500, L100.0500, L100.4500 ####[facility] [address] [place], [address] Chloride [Moles/Vol] 100 mmol/L Normal 98-[address] [facility] Comment on above: Performed By: #### L 500.2500, L100.0500, L100.4500 ####[facility] [address] [place], [address] CO2 [Moles/Vol] 21.5 mmol/L Normal 21.0-32.0 [facility] Comment on above: Performed By: #### L 500.2500, L100.0500, L100.4500 ####[facility] [address] [place], [address] Creatinine [Mass/Vol] 1.02 mg/dL Normal 0.70-1.20 [facility] Comment on above: Performed By: #### L 500.2500, L100.0500, L100.4500 ####[facility] [address] [place], [address] ECRCL 79.98 ml/min Normal 50-250 [facility] Comment on above: Performed By: #### L 500.2500, L100.0500, L100.4500 ####[facility] [address] [place], [address] GAP 14 Normal 5-15 [facility] Comment on above: Performed By: #### L 500.2500, L100.0500, L100.4500 ####[facility] [address] [place], [address] GFR/1.73 sq M.predicted among non-blacks MDRD (S/P/Bld) [Vol rate/Area] 79 mL/min/{1.73_m2} Normal >60 [facility] Comment on above: Result Comment: mL/m in/1.73m2 CKD-EPI Creatinine Equation (2020) Performed By: #### L 500.2500, L100.0500, L100.4500 ####[facility] [address] [place], [address] Glucose [Mass/Vol] 96 mg/dL Normal 70-99 [facility] Comment on above: Performed By: #### L 500.2500, L100.0500, L100.4500 ####[facility] [address] [place], [address] Potassium [Moles/Vol] 3.3 mmol/L Normal 3.3-5.1 [facility] Comment on above: Performed By: #### L 500.2500, L100.0500, L100.4500 ####[facility] [address] [place], [address] Sodium [Moles/Vol] 136 mmol/L Normal 133-145 [facility] Comment on above: Performed By: #### L 500.2500, L100.0500, L100.4500 ####[facility] [address] [place], [address] Urea nitrogen [Mass/Vol] 12 mg/dL Normal 4-19 [facility] Comment on above: Performed By: #### L 500.2500, L100.0500, L100.4500 ####[facility] [address] [place], [address] CBC-Complete Blood Cnt No Di ffon 12-20-2024 Erythrocyte distribution width (RBC) [Ratio] 20.7 % High 11.6-14.6 [facility] Comment on above: Performed By: #### L 500.2500, L100.0500, L100.4500 ####[facility] [address] [place], [address] Hematocrit (Bld) [Volume fraction] 38.9 % Low 40-54 [facility] Comment on above: Performed By: #### L 500.2500, L100.0500, L100.4500 ####[facility] [address] [place], [address] Hemoglobin (Bld) [Mass/Vol] 11.6 g/dL Low 13.0-16.5 [facility] Comment on above: Performed By: #### L 500.2500, L100.0500, L100.4500 ####[facility] [address] [place], [address] MCH (RBC) [Entitic mass] 24.3 pg Low 27.0-32.0 [facility] Comment on above: Performed By: #### L 500.2500, L100.0500, L100.4500 ####[facility] [address] [place], [address] MCHC (RBC) [Mass/Vol] 29.8 g/dL Low 32-36 [facility] Comment on above: Performed By: #### L 500.2500, L100.0500, L100.4500 ####[facility] [address] [place], [address] MCV (RBC) [Entitic vol] 81.4 fL Normal 80-94 [facility] Comment on above: Performed By: #### L 500.2500, L100.0500, L100.4500 ####[facility] [address] [place], [address] Platelet mean volume (Bld) [Entitic vol] 10.6 fL Normal 6.2-12.0 [facility] Comment on above: Performed By: #### L 500.2500, L100.0500, L100.4500 ####[facility] [address] [place], [address] Platelets (Bld) [#/Vol] 338 10*3/uL Normal 150-450 [facility] Comment on above: Performed By: #### L 500.2500, L100.0500, L100.4500 ####[facility] [address] [place], [address] RBC (Bld) [#/Vol] 4.78 10*6/uL Normal 4.6-6.2 [facility] Comment on above: Performed By: #### L 500.2500, L100.0500, L100.4500 ####[facility] [address] [place], [address] RDW SD 59.7 fl High 35.1-43.9 [facility] Comment on above: Performed By: #### L 500.2500, L100.0500, L100.4500 ####[facility] [address] [place], [address] WBC (Bld) [#/Vol] 15.1 10*3/uL High 4.4-11.0 [facility] Comment on above: Performed By: #### L 500.2500, L100.0500, L100.4500 ####[facility] [address] [place], [address] Differential Commenton 12-20 SMEAR COMMENT Normal [facility] Comment on above: Result Comment: 2+ A NISOCYTOSIS1+ POLYCHROMASIARARE TEAR DROP CELLS Performed By: #### L 500.2500, L100.0500, L100.4500 ####[facility] [address] [place], [address] Electrocardiogram reportOrde red By: Basil Hunter on 12-20-2024 EKG study [facility] Work Phone: [phone] EKG study [facility] Work Phone: [phone] Partial Thromboplast Timeon 12-20-2024 aPTT Coag (Bld) [Time] 30.7 s Normal 24.1-36.2 [facility] Comment on above: Order Comment: Comme nts: heparin drip Performed By: #### L 300.4310 ####[facility] [address] [place], [address] aPTT Coag (Bld) [Time] 34.4 s Normal 24.1-36.2 [facility] Comment on above: Performed By: #### L 300.4310 ####[facility] [address] [place], [address] aPTT Coag (Bld) [Time] 52.9 s High 24.1-36.2 [facility] Comment on above: Performed By: #### L 300.4310 ####[facility] [address] [place], [address] aPTT Coag (Bld) [Time] 61.6 s High 24.1-36.2 [facility] Comment on above: Order Comment: Comme nts: Heparin gtt Performed By: #### L 300.4310 ####[facility] [address] [place], [address] Amiodaroneon 12-19-2024 AMIODARONE Normal [facility] Comment on above: Result Comment: Canc elled via OM: Ordered/Entered in error Performed By: #### L 3300.1150 ####[facility] [address] [place], [address] Noramiodarone Normal [facility] Comment on above: Result Comment: Canc elled via OM: Ordered/Entered in error Performed By: #### L 3300.1150 ####[facility] [address] [place], [address] Basic Metabolic Profile (BMP )on 12-19-2024 BUN/CRE 10.3 RATIO Normal 10-20 [facility] Comment on above: Performed By: #### L 100.0500, L500.2500 ####[facility] [address] [place], [address] Calcium [Mass/Vol] 7.9 mg/dL Normal 7.6-11.0 [facility] Comment on above: Performed By: #### L 100.0500, L500.2500 ####[facility] [address] [place], [address] Chloride [Moles/Vol] 100 mmol/L Normal 98-[address] [facility] Comment on above: Performed By: #### L 100.0500, L500.2500 ####[facility] [address] [place], [address] CO2 [Moles/Vol] 23.9 mmol/L Normal 21.0-32.0 [facility] Comment on above: Performed By: #### L 100.0500, L500.2500 ####[facility] [address] [place], [address] Creatinine [Mass/Vol] 0.91 mg/dL Normal 0.70-1.20 [facility] Comment on above: Performed By: #### L 100.0500, L500.2500 ####[facility] [address] [place], [address] ECRCL 90.28 ml/min Normal 50-250 [facility] Comment on above: Performed By: #### L 100.0500, L500.2500 ####[facility] [address] [place], [address] GAP 11 Normal 5-15 [facility] Comment on above: Performed By: #### L 100.0500, L500.2500 ####[facility] [address] [place], [address] GFR/1.73 sq M.predicted among non-blacks MDRD (S/P/Bld) [Vol rate/Area] 90 mL/min/{1.73_m2} Normal >60 [facility] Comment on above: Result Comment: mL/m in/1.73m2 CKD-EPI Creatinine Equation (2020) Performed By: #### L 100.0500, L500.2500 ####[facility] [address] [place], [address] Glucose [Mass/Vol] 135 mg/dL High 70-99 [facility] Comment on above: Performed By: #### L 100.0500, L500.2500 ####[facility] [address] [place], [address] Potassium [Moles/Vol] 3.2 mmol/L Low 3.3-5.1 [facility] Comment on above: Performed By: #### L 100.0500, L500.2500 ####[facility] [address] [place], [address] Sodium [Moles/Vol] 135 mmol/L Normal 133-145 [facility] Comment on above: Performed By: #### L 100.0500, L500.2500 ####[facility] [address] [place], [address] Urea nitrogen [Mass/Vol] 9 mg/dL Normal 4-19 [facility] Comment on above: Performed By: #### L 100.0500, L500.2500 ####[facility] [address] [place], [address] CBC-Complete Blood Cnt No Di ffon 12-19-2024 Erythrocyte distribution width (RBC) [Ratio] 20.3 % High 11.6-14.6 [facility] Comment on above: Performed By: #### L 100.0500, L500.2500 ####[facility] [address] [place], [address] Hematocrit (Bld) [Volume fraction] 36.6 % Low 40-54 [facility] Comment on above: Performed By: #### L 100.0500, L500.2500 ####[facility] [address] [place], [address] Hemoglobin (Bld) [Mass/Vol] 11.2 g/dL Low 13.0-16.5 [facility] Comment on above: Performed By: #### L 100.0500, L500.2500 ####[facility] [address] [place], [address] MCH (RBC) [Entitic mass] 24.6 pg Low 27.0-32.0 [facility] Comment on above: Performed By: #### L 100.0500, L500.2500 ####[facility] [address] [place], [address] MCHC (RBC) [Mass/Vol] 30.6 g/dL Low 32-36 [facility] Comment on above: Performed By: #### L 100.0500, L500.2500 ####[facility] [address] [place], [address] MCV (RBC) [Entitic vol] 80.4 fL Normal 80-94 [facility] Comment on above: Performed By: #### L 100.0500, L500.2500 ####[facility] [address] [place], [address] Platelet mean volume (Bld) [Entitic vol] 10.2 fL Normal 6.2-12.0 [facility] Comment on above: Performed By: #### L 100.0500, L500.2500 ####[facility] [address] [place], [address] Platelets (Bld) [#/Vol] 290 10*3/uL Normal 150-450 [facility] Comment on above: Performed By: #### L 100.0500, L500.2500 ####[facility] [address] [place], [address] RBC (Bld) [#/Vol] 4.55 10*6/uL Low 4.6-6.2 [facility] Comment on above: Performed By: #### L 100.0500, L500.2500 ####[facility] [address] [place], [address] RDW SD 58.8 fl High 35.1-43.9 [facility] Comment on above: Performed By: #### L 100.0500, L500.2500 ####[facility] [address] [place], [address] WBC (Bld) [#/Vol] 14.6 10*3/uL High 4.4-11.0 [facility] Comment on above: Performed By: #### L 100.0500, L500.2500 ####[facility] [address] [place], [address] Partial Thromboplast Timeon 12-19-2024 aPTT Coag (Bld) [Time] 49.8 s High 24.1-36.2 [facility] Comment on above: Performed By: #### L 300.4310 ####[facility] [address] [place], [address] aPTT Coag (Bld) [Time] 54.7 s High 24.1-36.2 [facility] Comment on above: Order Comment: RYAN Dooley PREVIOUS SPECIMEN REJECTED DUE TOQNS. 12/19/24 1004 Performed By: #### L 300.4310 ####[facility] [address] [place], [address] aPTT Coag (Bld) [Time] 62.5 s High 24.1-36.2 [facility] Comment on above: Performed By: #### L 300.4310 ####[facility] [address] [place], [address] Basic Metabolic Profile (BMP )on 12-18-2024 BUN/CRE 13.7 RATIO Normal 10-20 [facility] Comment on above: Performed By: #### L 100.0500, L500.2500 ####[facility] [address] [place], [address] Calcium [Mass/Vol] 7.6 mg/dL Normal 7.6-11.0 [facility] Comment on above: Performed By: #### L 100.0500, L500.2500 ####[facility] [address] [place], [address] Chloride [Moles/Vol] 111 mmol/L High 98-[address] [facility] Comment on above: Performed By: #### L 100.0500, L500.2500 ####[facility] [address] [place], [address] CO2 [Moles/Vol] 21.0 mmol/L Normal 21.0-32.0 [facility] Comment on above: Performed By: #### L 100.0500, L500.2500 ####[facility] [address] [place], [address] Creatinine [Mass/Vol] 0.81 mg/dL Normal 0.70-1.20 [facility] Comment on above: Performed By: #### L 100.0500, L500.2500 ####[facility] [address] [place], [address] ECRCL 101.43 ml/min Normal 50-250 [facility] Comment on above: Performed By: #### L 100.0500, L500.2500 ####[facility] [address] [place], [address] GAP 9 Normal 5-15 [facility] Comment on above: Performed By: #### L 100.0500, L500.2500 ####[facility] [address] [place], [address] GFR/1.73 sq M.predicted among non-blacks MDRD (S/P/Bld) [Vol rate/Area] 94 mL/min/{1.73_m2} Normal >60 [facility] Comment on above: Result Comment: mL/m in/1.73m2 CKD-EPI Creatinine Equation (2020) Performed By: #### L 100.0500, L500.2500 ####[facility] [address] [place], [address] Glucose [Mass/Vol] 124 mg/dL High 70-99 [facility] Comment on above: Performed By: #### L 100.0500, L500.2500 ####[facility] [address] [place], [address] Potassium [Moles/Vol] 3.9 mmol/L Normal 3.3-5.1 [facility] Comment on above: Result Comment: Hemo lysis present, Results??could be affected.?? Performed By: #### L 100.0500, L500.2500 ####[facility] [address] [place], [address] Sodium [Moles/Vol] 141 mmol/L Normal 133-145 [facility] Comment on above: Performed By: #### L 100.0500, L500.2500 ####[facility] [address] [place], [address] Urea nitrogen [Mass/Vol] 11 mg/dL Normal 4-19 [facility] Comment on above: Performed By: #### L 100.0500, L500.2500 ####[facility] [address] [place], [address] CBC-Complete Blood Cnt No Di ffon 12-18-2024 Erythrocyte distribution width (RBC) [Ratio] 21.0 % High 11.6-14.6 [facility] Comment on above: Performed By: #### L 100.0500, L500.2500 ####[facility] [address] [place], [address] Hematocrit (Bld) [Volume fraction] 39.7 % Low 40-54 [facility] Comment on above: Performed By: #### L 100.0500, L500.2500 ####[facility] [address] [place], [address] Hemoglobin (Bld) [Mass/Vol] 11.8 g/dL Low 13.0-16.5 [facility] Comment on above: Performed By: #### L 100.0500, L500.2500 ####[facility] [address] [place], [address] MCH (RBC) [Entitic mass] 24.5 pg Low 27.0-32.0 [facility] Comment on above: Performed By: #### L 100.0500, L500.2500 ####[facility] [address] [place], [address] MCHC (RBC) [Mass/Vol] 29.7 g/dL Low 32-36 [facility] Comment on above: Performed By: #### L 100.0500, L500.2500 ####[facility] [address] [place], [place], [address] MCV (RBC) [Entitic vol] 82.4 fL Normal 80-94 [facility] Comment on above: Performed By: #### L 100.0500, L500.2500 ####[facility] [address] [place], [address] Platelet mean volume (Bld) [Entitic vol] 10.7 fL Normal 6.2-12.0 [facility] Comment on above: Performed By: #### L 100.0500, L500.2500 ####[facility] [address] [place], [address] Platelets (Bld) [#/Vol] 284 10*3/uL Normal 150-450 [facility] Comment on above: Performed By: #### L 100.0500, L500.2500 ####[facility] [address] [place], [address] RBC (Bld) [#/Vol] 4.82 10*6/uL Normal 4.6-6.2 [facility] Comment on above: Performed By: #### L 100.0500, L500.2500 ####[facility] [address] [place], [address] RDW SD 61.9 fl High 35.1-43.9 [facility] Comment on above: Performed By: #### L 100.0500, L500.2500 ####[facility] [address] [place], [address] WBC (Bld) [#/Vol] 13.5 10*3/uL High 4.4-11.0 [facility] Comment on above: Performed By: #### L 100.0500, L500.2500 ####[facility] [address] [place], [address] Partial Thromboplast Timeon 12-18-2024 aPTT Coag (Bld) [Time] 32.2 s Normal 24.1-36.2 [facility] Comment on above: Performed By: #### L 300.4310 ####[facility] [address] [place], [address] aPTT Coag (Bld) [Time] 34.7 s Normal 24.1-36.2 [facility] Comment on above: Order Comment: Comme nts: Heparin gtt Performed By: #### L 300.4310 ####[facility] [address] [place], [address] aPTT Coag (Bld) [Time] 40.2 s High 24.1-36.2 [facility] Comment on above: Performed By: #### L 300.4310 ####[facility] [address] [place], [address] Basic Metabolic Profile (BMP )on 12-17-2024 BUN/CRE 16.8 RATIO Normal 10-20 [facility] Comment on above: Performed By: #### L 100.0500, L500.2500 ####[facility] [address] [place], [address] Calcium [Mass/Vol] 8.5 mg/dL Normal 7.6-11.0 [facility] Comment on above: Performed By: #### L 100.0500, L500.2500 ####[facility] [address] [place], [address] Chloride [Moles/Vol] 109 mmol/L High 98-[address] [facility] Comment on above: Performed By: #### L 100.0500, L500.2500 ####[facility] [address] [place], [address] CO2 [Moles/Vol] 22.2 mmol/L Normal 21.0-32.0 [facility] Comment on above: Performed By: #### L 100.0500, L500.2500 ####[facility] [address] [place], [address] Creatinine [Mass/Vol] 0.95 mg/dL Normal 0.70-1.20 [facility] Comment on above: Performed By: #### L 100.0500, L500.2500 ####[facility] [address] [place], [address] ECRCL 86.26 ml/min Normal 50-250 [facility] Comment on above: Performed By: #### L 100.0500, L500.2500 ####[facility] [address] [place], [address] GAP 9 Normal 5-15 [facility] Comment on above: Performed By: #### L 100.0500, L500.2500 ####[facility] [address] [place], [address] GFR/1.73 sq M.predicted among non-blacks MDRD (S/P/Bld) [Vol rate/Area] 86 mL/min/{1.73_m2} Normal >60 [facility] Comment on above: Result Comment: mL/m in/1.73m2 CKD-EPI Creatinine Equation (2020) Performed By: #### L 100.0500, L500.2500 ####[facility] [address] [place], [address] Glucose [Mass/Vol] 125 mg/dL High 70-99 [facility] Comment on above: Performed By: #### L 100.0500, L500.2500 ####[facility] [address] [place], [address] Potassium [Moles/Vol] 3.9 mmol/L Normal 3.3-5.1 [facility] Comment on above: Performed By: #### L 100.0500, L500.2500 ####[facility] [address] [place], [address] Sodium [Moles/Vol] 140 mmol/L Normal 133-145 [facility] Comment on above: Performed By: #### L 100.0500, L500.2500 ####[facility] [address] [place], [address] Urea nitrogen [Mass/Vol] 16 mg/dL Normal 4-19 [facility] Comment on above: Performed By: #### L 100.0500, L500.2500 ####[facility] [address] [place], [address] CBC-Complete Blood Cnt No Di ffon 12-17-2024 Erythrocyte distribution width (RBC) [Ratio] 20.9 % High 11.6-14.6 [facility] Comment on above: Performed By: #### L 100.0500, L500.2500 ####[facility] [address] [place], [address] Hematocrit (Bld) [Volume fraction] 38.7 % Low 40-54 [facility] Comment on above: Performed By: #### L 100.0500, L500.2500 ####[facility] [address] [place], [address] Hemoglobin (Bld) [Mass/Vol] 11.6 g/dL Low 13.0-16.5 [facility] Comment on above: Performed By: #### L 100.0500, L500.2500 ####[facility] [address] [place], [address] MCH (RBC) [Entitic mass] 24.6 pg Low 27.0-32.0 [facility] Comment on above: Performed By: #### L 100.0500, L500.2500 ####[facility] [address] [place], [address] MCHC (RBC) [Mass/Vol] 30.0 g/dL Low 32-36 [facility] Comment on above: Performed By: #### L 100.0500, L500.2500 ####[facility] [address] [place], [address] MCV (RBC) [Entitic vol] 82.2 fL Normal 80-94 [facility] Comment on above: Performed By: #### L 100.0500, L500.2500 ####[facility] [address] [place], [address] Platelet mean volume (Bld) [Entitic vol] 10.3 fL Normal 6.2-12.0 [facility] Comment on above: Performed By: #### L 100.0500, L500.2500 ####[facility] [address] [place], [address] Platelets (Bld) [#/Vol] 288 10*3/uL Normal 150-450 [facility] Comment on above: Performed By: #### L 100.0500, L500.2500 ####[facility] [address] [place], [address] RBC (Bld) [#/Vol] 4.71 10*6/uL Normal 4.6-6.2 [facility] Comment on above: Performed By: #### L 100.0500, L500.2500 ####[facility] [address] [place], [address] RDW SD 61.2 fl High 35.1-43.9 [facility] Comment on above: Performed By: #### L 100.0500, L500.2500 ####[facility] [address] [place], [address] WBC (Bld) [#/Vol] 13.0 10*3/uL High 4.4-11.0 [facility] Comment on above: Performed By: #### L 100.0500, L500.2500 ####[facility] [address] [place], [address] Partial Thromboplast Timeon 12-17-2024 aPTT Coag (Bld) [Time] 60.5 s High 24.1-36.2 [facility] Comment on above: Order Comment: This specimen has been REJECTED due to Laboratory criteria:Quanity Not Sufficient.ICU has been notified of need of recollection.12/17/242033 Luis M R Canchola Result Comment: This specimen has been REJECTED due to Laboratory criteria:Quanity Not Sufficient.ICU has been notified of need of recollection.12/17/242033 Luis M R Canchola Performed By: #### L 300.4310 ####[facility] [address] [place], [address] aPTT Coag (Bld) [Time] 60.5 s High 24.1-36.2 [facility] Comment on above: Performed By: #### L 300.4310 ####[facility] [address] [place], [address] aPTT Coag (Bld) [Time] 44.9 s High 24.1-36.2 [facility] Comment on above: Performed By: #### L 300.4310 ####[facility] [address] [place], [address] Abdomen Single View (Portabl e)on 12-16-2024 Abdomen Single View (Portable) Normal [facility] Basic Metabolic Profile (BMP )on 12-16-2024 BUN/CRE 20.5 RATIO High 10-20 [facility] Comment on above: Performed By: #### L 100.0500, L500.2500 ####[facility] [address] [place], [address] Calcium [Mass/Vol] 8.8 mg/dL Normal 7.6-11.0 [facility] Comment on above: Performed By: #### L 100.0500, L500.2500 ####[facility] [address] [place], [address] Chloride [Moles/Vol] 111 mmol/L High 98-[address] [facility] Comment on above: Performed By: #### L 100.0500, L500.2500 ####[facility] [address] [place], [address] CO2 [Moles/Vol] 23.1 mmol/L Normal 21.0-32.0 [facility] Comment on above: Performed By: #### L 100.0500, L500.2500 ####[facility] [address] [place], [address] Creatinine [Mass/Vol] 1.19 mg/dL Normal 0.70-1.20 [facility] Comment on above: Performed By: #### L 100.0500, L500.2500 ####[facility] [address] [place], [address] ECRCL 68.70 ml/min Normal 50-250 [facility] Comment on above: Performed By: #### L 100.0500, L500.2500 ####[facility] [address] [place], [address] GAP 12 Normal 5-15 [facility] Comment on above: Performed By: #### L 100.0500, L500.2500 ####[facility] [address] [place], [address] GFR/1.73 sq M.predicted among non-blacks MDRD (S/P/Bld) [Vol rate/Area] 65 mL/min/{1.73_m2} Normal >60 [facility] Comment on above: Result Comment: mL/m in/1.73m2 CKD-EPI Creatinine Equation (2020) Performed By: #### L 100.0500, L500.2500 ####[facility] [address] [place], [address] Glucose [Mass/Vol] 152 mg/dL High 70-99 [facility] Comment on above: Performed By: #### L 100.0500, L500.2500 ####[facility] [address] [place], [address] Potassium [Moles/Vol] 4.2 mmol/L Normal 3.3-5.1 [facility] Comment on above: Performed By: #### L 100.0500, L500.2500 ####[facility] [address] [place], [address] Sodium [Moles/Vol] 146 mmol/L High 133-145 [facility] Comment on above: Performed By: #### L 100.0500, L500.2500 ####[facility] [address] [place], [address] Urea nitrogen [Mass/Vol] 24 mg/dL High 4-19 [facility] Comment on above: Performed By: #### L 100.0500, L500.2500 ####[facility] [address] [place], [address] CBC-Complete Blood Cnt No Di ffon 12-16-2024 Erythrocyte distribution width (RBC) [Ratio] 21.3 % High 11.6-14.6 [facility] Comment on above: Performed By: #### L 100.0500, L500.2500 ####[facility] [address] [place], [address] Hematocrit (Bld) [Volume fraction] 39.7 % Low 40-54 [facility] Comment on above: Performed By: #### L 100.0500, L500.2500 ####[facility] [address] [place], [address] Hemoglobin (Bld) [Mass/Vol] 11.8 g/dL Low 13.0-16.5 [facility] Comment on above: Performed By: #### L 100.0500, L500.2500 ####[facility] [address] [place], [address] MCH (RBC) [Entitic mass] 24.8 pg Low 27.0-32.0 [facility] Comment on above: Performed By: #### L 100.0500, L500.2500 ####[facility] [address] [place], [address] MCHC (RBC) [Mass/Vol] 29.7 g/dL Low 32-36 [facility] Comment on above: Performed By: #### L 100.0500, L500.2500 ####[facility] [address] [place], [address] MCV (RBC) [Entitic vol] 83.6 fL Normal 80-94 [facility] Comment on above: Performed By: #### L 100.0500, L500.2500 ####[facility] [address] [place], [address] Platelet mean volume (Bld) [Entitic vol] 10.3 fL Normal 6.2-12.0 [facility] Comment on above: Performed By: #### L 100.0500, L500.2500 ####[facility] [address] [place], [address] Platelets (Bld) [#/Vol] 311 10*3/uL Normal 150-450 [facility] Comment on above: Performed By: #### L 100.0500, L500.2500 ####[facility] [address] [place], [address] RBC (Bld) [#/Vol] 4.75 10*6/uL Normal 4.6-6.2 [facility] Comment on above: Performed By: #### L 100.0500, L500.2500 ####[facility] [address] [place], [address] RDW SD 63.8 fl High 35.1-43.9 [facility] Comment on above: Performed By: #### L 100.0500, L500.2500 ####[facility] [address] [place], [address] WBC (Bld) [#/Vol] 14.8 10*3/uL High 4.4-11.0 [facility] Comment on above: Performed By: #### L 100.0500, L500.2500 ####[facility] [address] [place], [address] Magnesiumon 12-16-2024 Magnesium [Mass/Vol] 2.1 mg/dL Normal 1.5-2.[address] [facility] Comment on above: Performed By: #### L 501.5200 ####[facility] [address] [place], [address] Magnesium measurement (mass/ volume)Ordered By: Montana Leone on 12-16-2024 Magnesium (Unsp spec) [Mass/Vol] 2.1 mg/dL 1.5-2.2 [facility] Partial Thromboplast Timeon 12-16-2024 aPTT Coag (Bld) [Time] 34.5 s Normal 24.1-36.2 [facility] Comment on above: Performed By: #### L 300.4310 ####[facility] [address] [place], [address] aPTT Coag (Bld) [Time] 171.6 s Invalid Interpretation Code 24.1-36.2 [facility] Comment on above: Result Comment: CRIT ICAL VALUE CALLED TO FELIPE MUNOZ12/16/24 Gabrielle Goldman.RESULTS READ BACK BY SAME. Performed By: #### L 300.4310 ####[facility] [address] [place], [address] aPTT Coag (Bld) [Time] 98.3 s Invalid Interpretation Code 24.1-36.2 [facility] Comment on above: Result Comment: CRIT ICAL VALUE CALLED TO EMMIE DILLON12/16/24 0417 [place].RESULTS READ BACK BY SAME. Performed By: #### L 300.4310 ####[facility] [address] [place], [address] Basic Metabolic Profile (BMP )on 12-15-2024 BUN/CRE 21.1 RATIO High 10-20 [facility] Comment on above: Performed By: #### L 100.0500, L500.2500 ####[facility] [address] [place], [address] Calcium [Mass/Vol] 9.3 mg/dL Normal 7.6-11.0 [facility] Comment on above: Performed By: #### L 100.0500, L500.2500 ####[facility] [address] [place], [address] Chloride [Moles/Vol] 105 mmol/L Normal 98-[address] [facility] Comment on above: Performed By: #### L 100.0500, L500.2500 ####[facility] [address] [place], [address] CO2 [Moles/Vol] 26.4 mmol/L Normal 21.0-32.0 [facility] Comment on above: Performed By: #### L 100.0500, L500.2500 ####[facility] [address] [place], [address] Creatinine [Mass/Vol] 1.27 mg/dL High 0.70-1.20 [facility] Comment on above: Performed By: #### L 100.0500, L500.2500 ####[facility] [address] [place], [address] ECRCL 64.50 ml/min Normal 50-250 [facility] Comment on above: Performed By: #### L 100.0500, L500.2500 ####[facility] [address] [place], [address] GAP 10 Normal 5-15 [facility] Comment on above: Performed By: #### L 100.0500, L500.2500 ####[facility] [address] [place], [address] GFR/1.73 sq M.predicted among non-blacks MDRD (S/P/Bld) [Vol rate/Area] 60 mL/min/{1.73_m2} Normal >60 [facility] Comment on above: Result Comment: mL/m in/1.73m2 CKD-EPI Creatinine Equation (2020) Performed By: #### L 100.0500, L500.2500 ####[facility] [address] [place], [address] Glucose [Mass/Vol] 158 mg/dL High 70-99 [facility] Comment on above: Performed By: #### L 100.0500, L500.2500 ####[facility] [address] [place], [address] Potassium [Moles/Vol] 5.1 mmol/L Normal 3.3-5.1 [facility] Comment on above: Result Comment: Hemo lysis present, Results??could be affected.?? Performed By: #### L 100.0500, L500.2500 ####[facility] [address] [place], [address] Sodium [Moles/Vol] 142 mmol/L Normal 133-145 [facility] Comment on above: Performed By: #### L 100.0500, L500.2500 ####[facility] [address] [place], [address] Urea nitrogen [Mass/Vol] 27 mg/dL High 4-19 [facility] Comment on above: Performed By: #### L 100.0500, L500.2500 ####[facility] [address] [place], [address] CBC-Complete Blood Cnt No Di ffon 12-15-2024 Erythrocyte distribution width (RBC) [Ratio] 21.6 % High 11.6-14.6 [facility] Comment on above: Performed By: #### L 100.0500, L500.2500 ####[facility] [address] [place], [address] Hematocrit (Bld) [Volume fraction] 43.6 % Normal 40-54 [facility] Comment on above: Performed By: #### L 100.0500, L500.2500 ####[facility] [address] [place], [address] Hemoglobin (Bld) [Mass/Vol] 13.1 g/dL Normal 13.0-16.5 [facility] Comment on above: Performed By: #### L 100.0500, L500.2500 ####[facility] [address] [place], [address] MCH (RBC) [Entitic mass] 25.0 pg Low 27.0-32.0 [facility] Comment on above: Performed By: #### L 100.0500, L500.2500 ####[facility] [address] [place], [address] MCHC (RBC) [Mass/Vol] 30.0 g/dL Low 32-36 [facility] Comment on above: Performed By: #### L 100.0500, L500.2500 ####[facility] [address] [place], [address] MCV (RBC) [Entitic vol] 83.0 fL Normal 80-94 [facility] Comment on above: Performed By: #### L 100.0500, L500.2500 ####[facility] [address] [place], [address] Platelet mean volume (Bld) [Entitic vol] 10.2 fL Normal 6.2-12.0 [facility] Comment on above: Performed By: #### L 100.0500, L500.2500 ####[facility] [address] [place], [address] Platelets (Bld) [#/Vol] 350 10*3/uL Normal 150-450 [facility] Comment on above: Performed By: #### L 100.0500, L500.2500 ####[facility] [address] [place], [address] RBC (Bld) [#/Vol] 5.25 10*6/uL Normal 4.6-6.2 [facility] Comment on above: Performed By: #### L 100.0500, L500.2500 ####[facility] [address] [place], [address] RDW SD 63.8 fl High 35.1-43.9 [facility] Comment on above: Performed By: #### L 100.0500, L500.2500 ####[facility] [address] [place], [address] WBC (Bld) [#/Vol] 19.4 10*3/uL High 4.4-11.0 [facility] Comment on above: Performed By: #### L 100.0500, L500.2500 ####[facility] [address] [place], [address] Consultation - Intensiviston 12-15-2024 Consultation - Manager Occupational Normal [facility] MR/POSTOP.ANEon 12-15-2024 MR/POSTOP.ANE Normal [facility] Operative Reporton Operative Report Normal [facility] Partial Thromboplast Timeon 12-15-2024 aPTT Coag (Bld) [Time] 28.9 s Normal 24.1-36.2 [facility] Comment on above: Performed By: #### L 300.4310 ####[facility] [address] [place], [address] aPTT Coag (Bld) [Time] 113.6 s Invalid Interpretation Code 24.1-36.2 [facility] Comment on above: Result Comment: CRIT ICAL VALUE CALLED TO [id number]/28/25 0321 [place] Johnson.RESULTS READ BACK BY SAME. Performed By: #### L 300.4310 ####[facility] [address] [place], [address] Bilirubin, totalOrdered By: Zhang Hester on 12-14-2024 Bilirubin [Mass/Vol] 1.05 mg/dL 0.00-1.[address] [facility] CBC W/Diff, Automatedon 11-19 Anisocytosis Ql (Bld) 2+ Normal [facility] Comment on above: Performed By: #### L 500.4050, L100.0100, L300.3900 ####[facility] [address] [place], [address] OVALOCYTE 1+ Normal [facility] Comment on above: Performed By: #### L 500.4050, L100.0100, L300.3900 ####[facility] [address] [place], [address] PLT EST ADEQUATE Normal ADEQ [facility] Comment on above: Performed By: #### L 500.4050, L100.0100, L300.3900 ####[facility] [address] [place], [address] SMEAR COMMENT SCANNED Normal [facility] Comment on above: Performed By: #### L 500.4050, L100.0100, L300.3900 ####[facility] [address] [place], [address] TARGET CELLS RARE Normal [facility] Comment on above: Performed By: #### L 500.4050, L100.0100, L300.3900 ####[facility] [address] [place], [address] Comprehensive Metabolic Prof oron 12-14-2024 Albumin [Mass/Vol] 3.2 g/dL Low 3.4-4.8 [facility] Comment on above: Performed By: #### L 500.4050, L100.0100, L300.3900 ####[facility] [address] [place], [address] Albumin/Globulin [Mass ratio] 1.0 {ratio} Normal 0.9-2.4 [facility] Comment on above: Performed By: #### L 500.4050, L100.0100, L300.3900 ####[facility] [address] [place], [address] ALK PHOS 45 U/L Normal 40-129 [facility] Comment on above: Performed By: #### L 500.4050, L100.0100, L300.3900 ####[facility] [address] [place], [address] ALT [Catalytic activity/Vol] 25 U/L Normal <=46 [facility] Comment on above: Performed By: #### L 500.4050, L100.0100, L300.3900 ####[facility] [address] [place], [address] AST [Catalytic activity/Vol] 26 U/L Normal <=37 [facility] Comment on above: Performed By: #### L 500.4050, L100.0100, L300.3900 ####[facility] [address] [place], [address] Bilirubin [Mass/Vol] 1.05 mg/dL Normal 0.00-1.[address] [facility] Comment on above: Performed By: #### L 500.4050, L100.0100, L300.3900 ####[facility] [address] [place], [address] BUN/CRE 21.7 RATIO High 10-20 [facility] Comment on above: Performed By: #### L 500.4050, L100.0100, L300.3900 ####[facility] [address] [place], [address] Calcium [Mass/Vol] 9.3 mg/dL Normal 7.6-11.0 [facility] Comment on above: Performed By: #### L 500.4050, L100.0100, L300.3900 ####[facility] [address] [place], [address] Chloride [Moles/Vol] 104 mmol/L Normal 98-[address] [facility] Comment on above: Performed By: #### L 500.4050, L100.0100, L300.3900 ####[facility] [address] [place], [address] CO2 [Moles/Vol] 23.8 mmol/L Normal 21.0-32.0 [facility] Comment on above: Performed By: #### L 500.4050, L100.0100, L300.3900 ####[facility] [address] [place], [address] Creatinine [Mass/Vol] 1.47 mg/dL High 0.70-1.20 [facility] Comment on above: Performed By: #### L 500.4050, L100.0100, L300.3900 ####[facility] [address] [place], [address] ECRCL 55.39 ml/min Normal 50-250 [facility] Comment on above: Performed By: #### L 500.4050, L100.0100, L300.3900 ####[facility] [address] [place], [address] GAP 13 Normal 5-15 [facility] Comment on above: Performed By: #### L 500.4050, L100.0100, L300.3900 ####[facility] [address] [place], [address] GFR/1.73 sq M.predicted among non-blacks MDRD (S/P/Bld) [Vol rate/Area] 51 mL/min/{1.73_m2} Low >60 [facility] Comment on above: Result Comment: mL/m in/1.73m2 CKD-EPI Creatinine Equation (2020) Performed By: #### L 500.4050, L100.0100, L300.3900 ####[facility] [address] [place], [address] Globulin (S) [Mass/Vol] 3.2 g/dL Normal 2.2-4.2 [facility] Comment on above: Performed By: #### L 500.4050, L100.0100, L300.3900 ####[facility] [address] [place], [address] Glucose [Mass/Vol] 167 mg/dL High 70-99 [facility] Comment on above: Performed By: #### L 500.4050, L100.0100, L300.3900 ####[facility] [address] [place], [address] Potassium [Moles/Vol] 5.3 mmol/L High 3.3-5.1 [facility] Comment on above: Performed By: #### L 500.4050, L100.0100, L300.3900 ####[facility] [address] [place], [address] Sodium [Moles/Vol] 141 mmol/L Normal 133-145 [facility] Comment on above: Performed By: #### L 500.4050, L100.0100, L300.3900 ####[facility] [address] [place], [address] T PROT 6.3 g/dL Normal 5.9-8.4 [facility] Comment on above: Performed By: #### L 500.4050, L100.0100, L300.3900 ####[facility] [address] [place], [address] Urea nitrogen [Mass/Vol] 32 mg/dL High 4-19 [facility] Comment on above: Performed By: #### L 500.4050, L100.0100, L300.3900 ####[facility] [address] [place], [address] Consultation - Cardiologyon 12-14-2024 Consultation - Cardiology Normal [facility] Consultation - Cardiology Normal [facility] Consultation - Surgicalon Consultation - Surgical Normal [facility] Echo Limited w/Contraston Echo Limited w/Contrast Normal [facility] - Chemistry and C hemistry - challengeOrdered By: Zhang Hester on 12-14-2024 AST [Catalytic activity/Vol] 26 U/L <38 [facility] Limited echocardiogram repor tOrdered By: Jaziel Lundberg on 12-14-2024 Study report [facility] Work Phone: No Panel InformationOrdered By: Zhang Hester on 12-14-2024 26 U/L <38 [facility] Ovalocyte detectionOrdered B y: Zhang Hester on 12-14-2024 Ovalocytes LM Ql (Bld) 1+ [facility] Partial Thromboplast Timeon 12-14-2024 aPTT Coag (Bld) [Time] 64.8 s High 24.1-36.2 [facility] Comment on above: Performed By: #### L 300.4310 ####[facility] [address] [place], [address] aPTT Coag (Bld) [Time] 65.7 s High 24.1-36.2 [facility] Comment on above: Performed By: #### L 300.4310 ####[facility] [address] [place], [address] Platelet estimateOrdered By: Zhang Hester on 12-14-2024 Platelets LM Ql (Bld) ADEQUATE ADEQ [facility] Prothrombin Time w/INRon INR Coag (PPP) [Relative time] 1.2 {INR} Normal [facility] Comment on above: Performed By: #### L 500.4050, L100.0100, L300.3900 ####[facility] [address] [place], [address] PT Coag (PPP) [Time] 15.8 s High 11.7-14.[address] [facility] Comment on above: Performed By: #### L 500.4050, L100.0100, L300.3900 ####[facility] [address] [place], [address] Serum globulin measurementOr dered By: Zhang Hester on 12-14-2024 Globulin (S) [Mass/Vol] 3.2 g/dL 2.2-4.2 [facility] Serum or plasma alanine pitt otransferase (ALT) measurementOrdered By: Zhang Hester on 12-14-2024 ALT [Catalytic activity/Vol] 25 U/L <47 [facility] Serum or plasma albumin tremayne urement (mass/volume)Ordered By: Zhang Hester on 12-14-2024 Albumin [Mass/Vol] 3.2 g/dL Low 3.4-4.8 [facility] Serum or plasma albumin/glob ulin mass ratioOrdered By: Zhang Hester on 12-14-2024 Albumin/Globulin [Mass ratio] 1.0 {ratio} 0.9-2.4 [facility] Serum or plasma alkaline david sphatase measurementOrdered By: Zhang Hester on 12-14-2024 ALP [Catalytic activity/Vol] 45 U/L 40-129 [facility] Target cell detectionOrdered By: Zhang Hester on 12-14-2024 Target cells LM Ql (Bld) RARE [facility] Total proteinOrdered By: Andie Hester on 12-14-2024 Protein [Mass/Vol] 6.3 g/dL 5.9-8.4 [facility] 12 Lead EKGon 12-13-2024 12 Lead EKG Normal [facility] Absolute lymphocyte countOrd ered By: Oswaldo Frances on 12-13-2024 Lymphocytes Auto (Unsp spec) [#/Vol] 1.89 10*3/uL 0.83-4.51 [facility] Absolute neutrophil countOrd ered By: Oswaldo Frances on 12-13-2024 Neutrophils (Bld) [#/Vol] 8.5 10*3/uL High 2.0-7.7 [facility] Activated partial thrombopla stin time (aPTT) in platelet poor plasma by coagulation aOrdered By: Oswaldo Frances on 12-13-2024 aPTT Coag (PPP) [Time] 30.7 s 24.1-36.2 [facility] Anion gap in Serum or Plasma Ordered By: Oswaldo Frances on 12-13-2024 Anion gap [Moles/Vol] 15 mmol/L 5-15 [facility] Automated lymphocyte count a s percentage of total leukocytesOrdered By: Oswaldo Frances on 12-13-2024 Lymphocytes/100 WBC Auto (Unsp spec) 16.7 % Low 19-41 [facility] BUN/creatinine ratioOrdered By: Oswaldo Frances on 12-13-2024 Urea nitrogen/Creatinine [Mass ratio] 25.2 mg/mg High 10-20 [facility] Basophil percentageOrdered B y: Oswaldo Frances on 12-13-2024 Basophils/100 WBC (Bld) 0.4 % 0-1 [facility] Bilirubin, totalOrdered By: Oswaldo Frances on 12-13-2024 Bilirubin [Mass/Vol] 0.66 mg/dL 0.00-1.[address] [facility] CBC W/Diff, Automatedon 11-19 Anisocytosis Ql (Bld) 2+ Normal [facility] Comment on above: Performed By: #### L 501.2450, L100.0100, L500.4050, L503.6005 ####[facility] [address] [place], [address] PLT EST SLT INC Normal ADEQ [facility] Comment on above: Performed By: #### L 501.2450, L100.0100, L500.4050, L503.6005 ####[facility] [address] [place], [address] CTA Abd/Pelvis W/WO Contrast on 12-13-2024 CTA Abd/Pelvis W/WO Contrast Normal [facility] Carbon dioxide, total [Moles /volume] in Central venous bloodOrdered By: Oswaldo Frances on 12-13-2024 CO2 [Moles/Vol] 24.4 mmol/L 21.0-32.0 [facility] Chloride assayOrdered By: Joo Frances on 12-13-2024 Chloride [Moles/Vol] 101 mmol/L 98-[address] [facility] Comprehensive Metabolic Prof ilon 12-13-2024 Albumin [Mass/Vol] 3.8 g/dL Normal 3.4-4.8 [facility] Comment on above: Performed By: #### L 501.2450, L100.0100, L500.4050, L503.6005 ####[facility] [address] [place], [address] Albumin/Globulin [Mass ratio] 1.0 {ratio} Normal 0.9-2.4 [facility] Comment on above: Performed By: #### L 501.2450, L100.0100, L500.4050, L503.6005 ####[facility] [address] [place], [address] ALK PHOS 61 U/L Normal 40-129 [facility] Comment on above: Performed By: #### L 501.2450, L100.0100, L500.4050, L503.6005 ####[facility] [address] [place], [address] ALT [Catalytic activity/Vol] 29 U/L Normal <=46 [facility] Comment on above: Performed By: #### L 501.2450, L100.0100, L500.4050, L503.6005 ####[facility] [address] [place], [address] AST [Catalytic activity/Vol] 30 U/L Normal <=37 [facility] Comment on above: Performed By: #### L 501.2450, L100.0100, L500.4050, L503.6005 ####[facility] [address] [place], [address] Bilirubin [Mass/Vol] 0.66 mg/dL Normal 0.00-1.[address] [facility] Comment on above: Performed By: #### L 501.2450, L100.0100, L500.4050, L503.6005 ####[facility] [address] [place], [address] BUN/CRE 25.2 RATIO High 10-20 [facility] Comment on above: Performed By: #### L 501.2450, L100.0100, L500.4050, L503.6005 ####[facility] [address] [place], [address] Calcium [Mass/Vol] 10.4 mg/dL Normal 7.6-11.0 [facility] Comment on above: Performed By: #### L 501.2450, L100.0100, L500.4050, L503.6005 ####[facility] [address] [place], [address] Chloride [Moles/Vol] 101 mmol/L Normal 98-[address] [facility] Comment on above: Performed By: #### L 501.2450, L100.0100, L500.4050, L503.6005 ####[facility] [address] [place], [address] CO2 [Moles/Vol] 24.4 mmol/L Normal 21.0-32.0 [facility] Comment on above: Performed By: #### L 501.2450, L100.0100, L500.4050, L503.6005 ####[facility] [address] [place], [address] Creatinine [Mass/Vol] 1.41 mg/dL High 0.70-1.20 [facility] Comment on above: Performed By: #### L 501.2450, L100.0100, L500.4050, L503.6005 ####[facility] [address] [place], [address] GAP 15 Normal 5-15 [facility] Comment on above: Performed By: #### L 501.2450, L100.0100, L500.4050, L503.6005 ####[facility] [address] [place], [address] GFR/1.73 sq M.predicted among non-blacks MDRD (S/P/Bld) [Vol rate/Area] 53 mL/min/{1.73_m2} Low >60 [facility] Comment on above: Result Comment: mL/m in/1.73m2 CKD-EPI Creatinine Equation (2020) Performed By: #### L 501.2450, L100.0100, L500.4050, L503.6005 ####[facility] [address] [place], [address] Globulin (S) [Mass/Vol] 3.7 g/dL Normal 2.2-4.2 [facility] Comment on above: Performed By: #### L 501.2450, L100.0100, L500.4050, L503.6005 ####[facility] [address] [place], [address] Glucose [Mass/Vol] 133 mg/dL High 70-99 [facility] Comment on above: Performed By: #### L 501.2450, L100.0100, L500.4050, L503.6005 ####[facility] [address] [place], [address] Potassium [Moles/Vol] 4.8 mmol/L Normal 3.3-5.1 [facility] Comment on above: Performed By: #### L 501.2450, L100.0100, L500.4050, L503.6005 ####[facility] [address] [place], [address] Sodium [Moles/Vol] 140 mmol/L Normal 133-145 [facility] Comment on above: Performed By: #### L 501.2450, L100.0100, L500.4050, L503.6005 ####[facility] [address] [place], [address] T PROT 7.5 g/dL Normal 5.9-8.4 [facility] Comment on above: Performed By: #### L 501.2450, L100.0100, L500.4050, L503.6005 ####[facility] [address] [place], [address] Urea nitrogen [Mass/Vol] 36 mg/dL High 4-19 [facility] Comment on above: Performed By: #### L 501.2450, L100.0100, L500.4050, L503.6005 ####[facility] [address] [place], [address] Emergency Department Summary on 12-13-2024 Emergency Department Summary Normal [facility] Eosinophil percentageOrdered By: Oswaldo Frances on 12-13-2024 Eosinophils/100 WBC (Bld) 1.0 % 0-5 [facility] Erythrocyte distribution wid th ratioOrdered By: Oswaldo Frances on 12-13-2024 Erythrocyte distribution width (RBC) [Ratio] 21.9 % High 11.6-14.6 [facility] Erythrocyte distribution wid th standard deviationOrdered By: Oswaldo Frances on 12-13-2024 Erythrocyte distribution width (RBC) [Ratio] 61.8 fl High 35.1-43.9 [facility] Glomerular filtration rate ( GFR) estimation/1.73 sq m using serum, plasma, or whole bOrdered By: Oswaldo Frances on 12-13-2024 GFR/1.73 sq M.predicted among non-blacks MDRD (S/P/Bld) [Vol rate/Area] 53 mL/min/{1.73_m2} Low >60 [facility] Comment on above: mL/min/1.73m2 CKD-EP I Creatinine Equation (2020) Hematocrit Auto (Bld) [Volum e fraction]Ordered By: Oswaldo Frances on 12-13-2024 Hematocrit (Bld) [Volume fraction] 50.0 % 40-54 [facility] Hemoglobin measurementOrdere d By: Oswaldo Frances on 12-13-2024 Hemoglobin (Bld) [Mass/Vol] 15.1 g/dL 13.0-16.5 [facility] Immature granulocytes/100 WB C Auto (Bld)Ordered By: Oswaldo Frances on 12-13-2024 Immature granulocytes/100 WBC (Bld) 0.500 % 0.0-0.9 [facility] Comment on above: IG% - Immature Granu locytes (promyelocytes, myelocytes and metamyelocytes) > 1% indicates that a LEFT SHIFT is Present. International normalized rat io (INR) calculationOrdered By: Oswaldo Frances on 12-13-2024 INR Coag (Bld) [Relative time] 1.1 {INR} [facility] Laboratory - Chemistry and C hemistry - challengeOrdered By: Oswaldo Frances on 12-13-2024 AST [Catalytic activity/Vol] 30 U/L <38 [facility] Laboratory - Hematology and Cell countsOrdered By: Oswaldo Frances on 12-13-2024 Anisocytosis Ql (Bld) 2+ [facility] Lactic Acidon 12-13-2024 Lactate [Moles/Vol] 1.5 mmol/L Normal 0.0-2.0 [facility] Comment on above: Performed By: #### L 503.6005 ####[facility] [address] [place], [address] Lactate [Moles/Vol] 2.0 mmol/L Normal 0.0-2.0 [facility] Comment on above: Order Comment: Y Result Comment: Crit ical Result(s) Called at: 1910 by:??GRAZYNA AGUIRRE Results read back by same. Performed By: #### L 501.2450, L100.0100, L500.4050, L503.6005 ####[facility] [address] [place], [address] Lactic acid measurementOrder ed By: Oswaldo Frances on 12-13-2024 Lactate [Moles/Vol] 1.5 mmol/L 0.0-2.0 [facility] Lactate [Moles/Vol] 2.0 mmol/L 0.0-2.0 [facility] Comment on above: Critical Result(s) C alled at: 1910 by: GRAZYNA MCKEON TO DAVE FLORES Results read back by same. Lipaseon 12-13-2024 Lipase [Catalytic activity/Vol] 25 U/L Normal 13-75 [facility] Comment on above: Result Comment: Plea se note:LIPASE revised reference range effective 22.New Lipase methodology. Expected to produce lower valuesthan the previous assay method.NEW Reference Range: 13 - 75 U/L Performed By: #### L 501.2450, L100.0100, L500.4050, L503.6005 ####[facility] [address] [place], [address] Lipase measurementOrdered By : Oswaldo Frances on 12-13-2024 Lipase [Catalytic activity/Vol] 25 U/L 13-75 [facility] Comment on above: Please note:LIPASE r evised reference range effective 22. New Lipase methodology. Expected to produce lower values than the previous assay method. NEW Reference Range: 13 - 75 U/L MCV (mean corpuscular volume ) determinationOrdered By: Oswaldo Frances on 12-13-2024 MCV (RBC) [Entitic vol] 82.0 fL 80-94 [facility] Mean corpuscular hemoglobin (MCH) determinationOrdered By: Oswaldo Frances on 12-13-2024 MCH (RBC) [Entitic mass] 24.8 pg Low 27.0-32.0 [facility] Mean corpuscular hemoglobin concentration (MCHC) determinationOrdered By: Oswaldo Frances on 12-13-2024 MCHC (RBC) [Mass/Vol] 30.2 g/dL Low 32-36 [facility] Mean platelet volume determi nationOrdered By: Oswaldo Frances on 12-13-2024 Platelet mean volume (Bld) [Entitic vol] 10.4 fL 6.2-12.0 [facility] Monocyte percentageOrdered B y: Oswaldo Frances on 12-13-2024 Monocytes/100 WBC (Bld) 6.6 % 0-10 [facility] Neutrophil percentageOrdered By: Oswaldo Frances on 12-13-2024 Neutrophils/100 WBC (Bld) 74.8 % High 47-70 [facility] Nucleated red blood cell per centageOrdered By: Oswaldo Frances on 12-13-2024 Nucleated RBC/100 WBC (Bld) [Ratio] 0 % 0-5 [facility] Partial Thromboplast Timeon 12-13-2024 aPTT Coag (Bld) [Time] 30.7 s Normal 24.1-36.2 [facility] Comment on above: Performed By: #### L 300.3900, L300.4310 ####[facility] [address] [facility] [place], [place], [address] Platelet countOrdered By: Joo Frances on 12-13-2024 Platelets (Bld) [#/Vol] 444 10*3/uL 150-450 [facility] Platelet estimateOrdered By: Oswaldo Frances on 12-13-2024 Platelets LM Ql (Bld) SLT INC ADEQ [facility] Potassium measurement (mass/ volume)Ordered By: Oswaldo Frances on 12-13-2024 Potassium (Unsp spec) [Mass/Vol] 4.8 mmol/L 3.3-5.1 [facility] Prothrombin Time w/INRon INR Coag (PPP) [Relative time] 1.1 {INR} Normal [facility] Comment on above: Performed By: #### L 300.3900, L300.4310 ####[facility] [address] [place], [address] Prothrombin timeOrdered By: Oswaldo Frances on 12-13-2024 PT Coag (PPP) [Time] 14.6 s Normal 11.7-14.[address] [facility] Comment on above: Performed By: #### L 300.3900, L300.4310 ####[facility] [address] [place], [place], [address] RBC Auto (Bld) [#/Vol]Ordere d By: Oswaldo Frances on 12-13-2024 RBC (Bld) [#/Vol] 6.10 10*6/uL 4.6-6.2 [facility] Serum creatinine measurement (mass/volume)Ordered By: Oswaldo Frances on 12-13-2024 Creatinine [Mass/Vol] 1.41 mg/dL High 0.70-1.20 [facility] Serum globulin measurementOr dered By: Oswaldo Frances on 12-13-2024 Globulin (S) [Mass/Vol] 3.7 g/dL 2.2-4.2 [facility] Serum glucose measurement (m ass/volume)Ordered By: Oswaldo Frances on 12-13-2024 Glucose [Mass/Vol] 133 mg/dL High 70-99 [facility] Serum or plasma alanine pitt otransferase (ALT) measurementOrdered By: Oswaldo Frances on 12-13-2024 ALT [Catalytic activity/Vol] 29 U/L <47 [facility] Serum or plasma albumin tremayne urement (mass/volume)Ordered By: Oswaldo Frances on 12-13-2024 Albumin [Mass/Vol] 3.8 g/dL 3.4-4.8 [facility] Serum or plasma albumin/glob ulin mass ratioOrdered By: Oswaldo Frances on 12-13-2024 Albumin/Globulin [Mass ratio] 1.0 {ratio} 0.9-2.4 [facility] Serum or plasma alkaline david sphatase measurementOrdered By: Oswaldo Le on 12-13-2024 ALP [Catalytic activity/Vol] 61 U/L 40-129 [facility] Serum or plasma calcium tremayne urement (mass/volume)Ordered By: Oswaldo Frances on 12-13-2024 Calcium [Mass/Vol] 10.4 mg/dL 7.6-11.0 [facility] Serum or plasma urea nitroge n measurement (mass/volume)Ordered By: Oswaldo Frances on 12-13-2024 Urea nitrogen [Mass/Vol] 36 mg/dL High 4-19 [facility] Sodium levelOrdered By: Oswaldo Frances on 12-13-2024 Sodium [Moles/Vol] 140 mmol/L 133-145 [facility] Total proteinOrdered By: Edilberto Frances on 12-13-2024 Protein [Mass/Vol] 7.5 g/dL 5.9-8.4 [facility] White blood cell (WBC) count Ordered By: Oswaldo Frances on 12-13-2024 WBC (Bld) [#/Vol] 11.3 10*3/uL High 4.4-11.0 [facility] CBC,PLATELETSon 12-09-2024 Hematocrit (Bld) [Volume fraction] 41.5 % Normal 39.6-48.[address] [facility] Comment on above: Performed By: #### UMA HENRY TRIG, IPB #### [facility] (DEFAULT) [address] [address] Hemoglobin (Bld) [Mass/Vol] 12.4 g/dL Low 13.4-16.[address] [facility] Comment on above: Performed By: #### UMA HENRY TRIG IPB #### [facility] (DEFAULT) [address] [address] MCV (RBC) [Entitic vol] 82.0 fL Normal 79.0-94.[address] [facility] Comment on above: Performed By: #### Dillon HMCristhian MGO TRIG, IPB #### [facility] (DEFAULT) [address] [place] [address] Mean Cell Hgb 24.5 pg Low 26.1-33.[address] [facility] Comment on above: Performed By: #### C HM7, MGO, TRIG, IPB #### U [facility] (DEFAULT) [address] [place] [address] 57497 Mean Cell Hgb Conc 29.9 g/dL Low 31.9-36.5 [facility] Comment on above: Performed By: #### C HM7, MGO, TRIG, IPB #### [facility] (DEFAULT) [address] [place] [address] Platelet mean volume (Bld) [Entitic vol] 9.9 fL Normal 8.7-12.[address] [facility] Comment on above: Performed By: #### C HM7, MGO, TRIG, IPB #### [facility] (DEFAULT) [address] [place] [address] 27678 Platelets (Bld) [#/Vol] 297 10*3/uL Normal 146-[address] [facility] Comment on above: Performed By: #### C HM7, MGO, TRIG, IPB #### [facility] (DEFAULT) [address] [place] [address]60 RBC (Bld) [#/Vol] 5.06 10*6/uL Normal 4.38-5.[address] [facility] Comment on above: Performed By: #### C HM7, MGO, TRIG, IPB #### U [facility] (DEFAULT) [address] [place] [address] 13301 RBC Distribution 21.6 % High 10.9-14.3 [facility] Comment on above: Performed By: #### C HM7, MGO, TRIG, IPB #### U [facility] (DEFAULT) [address] [place] [address] 56596 WBC (Bld) [#/Vol] 12.14 10*3/uL High 3.73-10.[address] [facility] Comment on above: Performed By: #### C HM7, MGO, TRIG, IPB #### U [facility] (DEFAULT) [address] [place] [address] 32067 CHEM 6 (LYTES, BUN CREA)on 0 - Anion gap [Moles/Vol] 17 mmol/L Normal 7-17 [facility] Comment on above: Performed By: #### X M #### [facility] (DEFAULT) [address] [place] [address] 55065 Chloride [Moles/Vol] 99 mmol/L Normal 98-[address] [facility] Comment on above: Performed By: #### X M #### [facility] (DEFAULT) [address] [place] [address] 62057 CO2 [Moles/Vol] 27 mmol/L Normal 21-31 [facility] Comment on above: Performed By: #### X M #### [facility] (DEFAULT) [address] [place] [address] 53285 Creatinine [Mass/Vol] 1.27 mg/dL Normal 0.70-1.30 [facility] Comment on above: Performed By: #### X M #### U [facility] (DEFAULT) [address] [place] [address] 03562 GFR/1.73 sq M.predicted among non-blacks MDRD (S/P/Bld) [Vol rate/Area] 60 mL/min/{1.73_m2} Normal >=[address] [facility] Comment on above: Result Comment: Repo rted eGFR is based on the CKD-EPI 2020 equation using creatinine, age, and sex. Performed By: #### X M #### U [facility] (DEFAULT) [address] [place] [address]1582 Potassium [Moles/Vol] 3.9 mmol/L Normal 3.5-5.0 [facility] Comment on above: Performed By: #### X M #### [facility] (DEFAULT) [address] [place] [address] 74268 Sodium [Moles/Vol] 139 mmol/L Normal 135-145 [facility] Comment on above: Performed By: #### X M #### [facility] (DEFAULT) [address] [place] [address] 45083 Urea nitrogen [Mass/Vol] 34 mg/dL High 7-[address] [facility] Comment on above: Performed By: #### X M #### [facility] (DEFAULT) [address] [place] [address] 13930 Urea nitrogen/Creatinine [Mass ratio] 27 mg/mg Normal [facility] Comment on above: Performed By: #### X M #### [facility] (DEFAULT) [address] [place] [address] 70876 FERRITINon 12-09-2024 Ferritin [Mass/Vol] 36.8 ng/mL Normal 10.5-307.[address] [facility] Comment on above: Performed By: #### X M #### [facility] (DEFAULT) [address] [place] [address] 57705 IRON/IRON BINDING/TRANSFERRI Non 12-09-2024 Iron [Mass/Vol] 32 ug/dL Low 40-174 [facility] Comment on above: Performed By: #### C HM7, MGO, TRIG, IPB #### [facility] (DEFAULT) [address] [place] [address] 37151 Iron Saturation 8 % Low 20-55 [facility] Comment on above: Performed By: #### C HM7, MGO, TRIG, IPB #### [facility] (DEFAULT) [address] [place] [address] 55473 Total Iron Binding Capacity 390 mcg/dL Normal 250-[address] [facility] Comment on above: Performed By: #### C HM7, MGO, TRIG, IPB #### [facility] (DEFAULT) [address] [place] [address] 28083 Transferrin [Mass/Vol] 312 mg/dL Normal 200-400 [facility] Comment on above: Performed By: #### C HM7, MGO, TRIG, IPB #### U [facility] (DEFAULT) [address] [place] [address] 33888 MAGNESIUMon - Magnesium [Mass/Vol] 2.2 mg/dL Normal 1.6-2.[address] [facility] Comment on above: Performed By: #### C HM7, MGO, TRIG, IPB #### U [facility] (DEFAULT) [address] [place] [address]404 CHEM 6 (LYTES, BUN CREA)on 0 - Anion gap [Moles/Vol] 14 mmol/L Normal 7-17 [facility] Comment on above: Performed By: #### X M #### [facility] (DEFAULT) [address] [place] [address]001 Chloride [Moles/Vol] 100 mmol/L Normal 98-[address] [facility] Comment on above: Performed By: #### X M #### [facility] (DEFAULT) [address] [place] [address] 67655 CO2 [Moles/Vol] 30 mmol/L Normal 21-31 [facility] Comment on above: Performed By: #### X M #### [facility] (DEFAULT) [address] [place] [address]187 Creatinine [Mass/Vol] 1.29 mg/dL Normal 0.70-1.30 [facility] Comment on above: Performed By: #### X M #### [facility] (DEFAULT) [address] [place] [address]64 GFR/1.73 sq M.predicted among non-blacks MDRD (S/P/Bld) [Vol rate/Area] 59 mL/min/{1.73_m2} Low >=[address] [facility] Comment on above: Result Comment: Repo rted eGFR is based on the CKD-EPI 2020 equation using creatinine, age, and sex. Performed By: #### X M #### [facility] (DEFAULT) [address] [place] [address] Potassium [Moles/Vol] 3.9 mmol/L Normal 3.5-5.0 [facility] Comment on above: Performed By: #### X M #### [facility] (DEFAULT) [address] [place] [address] 36053 Sodium [Moles/Vol] 140 mmol/L Normal 135-145 [facility] Comment on above: Performed By: #### X M #### U [facility] (DEFAULT) [address] [place] [address] 52599 Urea nitrogen [Mass/Vol] 34 mg/dL High 7-[address] [facility] Comment on above: Performed By: #### X M #### U [facility] (DEFAULT) [address] [place] [address] 9[address]25 Urea nitrogen/Creatinine [Mass ratio] 26 mg/mg Normal [facility] Comment on above: Performed By: #### X M #### U [facility] (DEFAULT) [address] [place] [address] ANGIO CARDIAC WITH SARAVIA RY ARTERIESon 12-08-2024 CT ANGIO CARDIAC WITH CORONARY ARTERIES [facility] CT Report Name: CONRAD OCONNELL : 1955 Scan Date: 2024-12-08 16:05:42 Electronically signed by Cesar Spivey 18:37:51 VITALS = HEIGHT: 69.02 in (175.30 cm) WEIGHT: 230.91 lbs (104.74 kgs) BSA: 2.20 m^2 BMI: 34 kg/m^2 BP: 113 / 60 mmHg BASELINE HR: 64 BPM HEART RHYTHM: PACs FINAL = Mild-moderate non-obstructive coronary artery disease. === 69 yo M hx UC, HTN, LBBB, AF/AFL s/p DCCV, with HFrEF CORONARY CT === STUDY QUALITY: Study quality is adequate. CALCIUM SCORING: Total coronary artery calcium score 411. FLETCHER percentile based on age, gender, and race is 67. DOMINANCE: Right dominant coronary artery system. LM: The LM is normal. LAD: Scattered calcific plaque <25% stenosis along the mid segment. LCX: Luminal irregularities. Mild intramyocardial bridging of the distal segment. RCA: Partially calcified plaque most notably along the mid segment 25-49% stenosis. RIGHT PDA: Luminal irregularities. OTHER FINDINGS: Aortic atherosclerosis/calci fications. Trivial pericardial effusion. Mediastinal adenopathy. CALCIUM SCORING TABLE = . ---------. Number of Lesions Pattern of Calcium Volume Total Score +-------+ -------+ -------+--------+---- ---------+ LM 0 LAD 135 LCx 0 RCA 276 Ramus '-------+ -------+ -------+--------+---- ---------' SCAN INFO = TEST TYPE: Calcium score, Coronary CT Angiography SCANNER IT SPECIALIST: [employer] SCANNER MODEL: NAEOTOM Alpha DOSE REDUCTION ALGORITHM: Helical with dose modulation, Other... OTHER, SPECIFY:: High Resolution SCAN COVERAGE ZONE: Coronary Arteries EKG GATED: Yes GENERAL ---- CONTRAST AGENT ---- CONTRAST AGENT USED?: Yes TYPE: Omnipaque 350 DOSE: 120 ml RATE: 7 ml/s ROUTE: IV BOLUS TECHNIQUE: Triphasic SCAN DELAY TIME METHOD: Bolus Track SERUM CREATININE: 1.29 mg/dL GFR: 58.36 ml/min/1.73m^2 CREATININE DATE: CT CONTRAST REACTION: None MEDICATION ADMINISTERED DURING SCAN ---- TYPE: Nitroglycerin, sublingual NITROGLYCERIN, TOTAL DOSE: 0.4 mg RADIATION DOSE ---- DLP: 1139 SETUP ---- DATE OF EVENT: SCAN TYPE: Clinical PATIENT TYPE: Inpatient REASON(S) FOR SCAN: Suspected symptomatic CAD REFERRING PHYSICIAN: 1) DIPIKA VALENCIA FELLOW: Meño Mathis NURSE: Liz Jacobs ATTENDING PHYSICIAN: CESAR SPIVEY TECHNOLOGIST: Tri Canchola = Patient Account [id number] CPT Codes 03153, 69892 ICD10 Codes I42.9 Report generated by [employer], a product of [employer] Normal [facility] EP CARDIOVERSION EXTERNALon 12-08-2024 EP CARDIOVERSION EXTERNAL Conrad Oconnell is a 69 y.o. male who presented to EP lab for DCCV of persistent Atrial fibrillation. he is currently anticoagulated with eliquis, no missed doses. EF by Echo is 35%. Successful DCCV of afib with 200J x1. No complications. Brevital 40mg was used for the procedure. Recommendations: Continue anticoagulation without break for at least 4 weeks or longer as indicated Continue inpatient tikosyn load. If EF does not improve with GDMT and sinus rhythm, consider BUSINESS INTEGRATION MANAGER-D. Table formatting from the original result was not included. Conrad Oconnell EP Procedure - EPS/Ablation/Device Ordering Physician: HOLLY VENEGAS Order #: [id number] Study Date: 12/08/2024 Patient Information Name MRN Description Heber Oconnell [id number] 69 y.o. male Physicians Panel Physicians Referring Physician Case Authorizing Physician Ike Dawkins MD (Primary) Holly Venegas APRN-OFFSET LABEL REWINDER Procedures Cardioversion Pre Procedure Diagnosis Paroxysmal A-fib [I48.0] Post Procedure Diagnosis Paroxysmal A-fib [I48.0] Indications Persistent atrial fibrillation [I48.19 (ICD-10-CM)] Conclusion Conrad Oconnell is a 69 y.o. male who presented to EP lab for DCCV of persistent Atrial fibrillation. he is currently anticoagulated with eliquis, no missed doses. EF by Echo is 35%. Successful DCCV of afib with 200J x1. No complications. Brevital 40mg was used for the procedure. Recommendations: Continue anticoagulation without break for at least 4 weeks or longer as indicated Continue inpatient tikosyn load. If EF does not improve with GDMT and sinus rhythm, consider BUSINESS INTEGRATION MANAGER-D. Consent The procedure was explained including the potential risks of infection, heart perforation, re-operation, and other risks pertinent to procedure. Informed consent and permission to proceed was given. Cardioversion/Defibri llation Arrhythmia Type: atrial fibrillation. Method of Cardioversion: synchronous cardioversion. The arrhythmia was terminated. Energy shock delivered: 200 joules. Time shock delivered: 09:56 EDT. Post cardioversion rhythm: sinus rhythm. *junctional beats occasionally Implants No implant documentation for this case. Measurements BSA: 2.22 m2 Complications Complications documented before study signed (12/08/2024 8:28 PM) No complications were associated with this study. Documented by Ike Dawkins MD - 12/08/2024 10:00 AM Electrophysiology Lab Attending Physician Statement and Signature I personally preformed and/or personally supervised and was present for this entire procedure, including the review and interpretation of all electrophysiologic tracings acquired during the course of this study. The medications listed have been ordered by me, and have been administered under my direct supervision. Signed at 1000 EDT ABN Associated with this Order There is no ABN associated with this order. Normal [facility] MAGNESIUMon 12-08-2024 Magnesium [Mass/Vol] 2.1 mg/dL Normal 1.6-2.[address] [facility] Comment on above: Performed By: #### X M #### [facility] (DEFAULT) [address] [address] CBC,PLATELETSon 12-07-2024 Hematocrit (Bld) [Volume fraction] 43.7 % Normal 39.6-48.[address] [facility] Comment on above: Performed By: #### S URGP #### U [facility] (DEFAULT) [address] [place] [address] 08493 Hemoglobin (Bld) [Mass/Vol] 12.8 g/dL Low 13.4-16.[address] [facility] Comment on above: Performed By: #### S URGP #### [facility] (DEFAULT) [address] [address] MCV (RBC) [Entitic vol] 83.4 fL Normal 79.0-94.[address] [facility] Comment on above: Performed By: #### S URGP #### U [facility] (DEFAULT) [address] [place] [address] 48021 Mean Cell Hgb 24.4 pg Low 26.1-33.[address] [facility] Comment on above: Performed By: #### S URGP #### [facility] (DEFAULT) [address] [place] [address] 77149 Mean Cell Hgb Conc 29.3 g/dL Low 31.9-36.5 [facility] Comment on above: Performed By: #### S URGP #### [facility] (DEFAULT) [address] [place] [address] 72219 Platelet mean volume (Bld) [Entitic vol] 10.5 fL Normal 8.7-12.[address] [facility] Comment on above: Performed By: #### S URGP #### [facility] (DEFAULT) [address] [place] [address] 28659 Platelets (Bld) [#/Vol] 323 10*3/uL Normal 146-[address] [facility] Comment on above: Performed By: #### S URGP #### [facility] (DEFAULT) [address] [place] [address] 37540 RBC (Bld) [#/Vol] 5.24 10*6/uL Normal 4.38-5.[address] [facility] Comment on above: Performed By: #### S URGP #### [facility] (DEFAULT) [address] [place] [address] 04321 RBC Distribution 22.3 % High 10.9-14.3 [facility] Comment on above: Performed By: #### S URGP #### [facility] (DEFAULT) [address] [place] [address] 74434 WBC (Bld) [#/Vol] 14.34 10*3/uL High 3.73-10.[address] [facility] Comment on above: Performed By: #### S URGP #### [facility] (DEFAULT) [address] [place] [address] 00623 CHEM 6 (LYTES, BUN CREA)on 0 12-07-2024 Anion gap [Moles/Vol] 16 mmol/L Normal 7-17 [facility] Comment on above: Performed By: #### T RXN, TRXNP #### [facility] (DEFAULT) [address] [place] [address] 54882 Chloride [Moles/Vol] 99 mmol/L Normal 98-[address] [facility] Comment on above: Performed By: #### T RXN, TRXNP #### [facility] (DEFAULT) [address] [place] [address] 97116 CO2 [Moles/Vol] 32 mmol/L High 21-31 [facility] Comment on above: Performed By: #### T RXN, TRXNP #### [facility] (DEFAULT) [address] [place] [address] 52689 Creatinine [Mass/Vol] 1.37 mg/dL High 0.70-1.30 [facility] Comment on above: Performed By: #### T RXN, TRXNP #### [facility] (DEFAULT) [address] [place] [address] 87403 GFR/1.73 sq M.predicted among non-blacks MDRD (S/P/Bld) [Vol rate/Area] 55 mL/min/{1.73_m2} Low >=[address] [facility] Comment on above: Result Comment: Repo rted eGFR is based on the CKD-EPI 2020 equation using creatinine, age, and sex. Performed By: #### T RXN, TRXNP #### [facility] (DEFAULT) [address] [place] [address] 26824 Potassium [Moles/Vol] 4.5 mmol/L Normal 3.5-5.0 [facility] Comment on above: Performed By: #### T RXN, TRXNP #### [facility] (DEFAULT) [address] [place] [address] 34197 Sodium [Moles/Vol] 142 mmol/L Normal 135-145 [facility] Comment on above: Performed By: #### T RXN, TRXNP #### [facility] (DEFAULT) [address] [place] [address] Urea nitrogen [Mass/Vol] 35 mg/dL High 7-[address] [facility] Comment on above: Performed By: #### T RXN, TRXNP #### [facility] (DEFAULT) [address] [place] [address] Urea nitrogen/Creatinine [Mass ratio] 26 mg/mg Normal [facility] Comment on above: Performed By: #### T RXN, TRXNP #### [facility] (DEFAULT) [address] [place] [address]129 ECHOCARDIOGRAMon 12-07-2024 Echocardiography Rhythm is afib. The left ventricular chamber size is normal. There is moderate global hypokinesis. Estimated LVEF 35%. Abnormal septal motion consistent with LBBB. The right ventricular chamber size is normal. RV systolic function is mildly reduced. Mild mitral regurgitation. Table formatting from the original result was not included. Images from the original result were not included. [facility] Facility [facility] Patient Information Patient Name Conrad Oconnell Legal Sex Male Indication for Exam Priority: Routine Dx: Acute on chronic systolic heart failure [I50.23 (ICD-10-CM)] Order Question Reason for Exam acute on chronic heart failure Interpretation Summary Result History is available. Rhythm is afib. The left ventricular chamber size is normal. There is moderate global hypokinesis. Estimated LVEF 35%. Abnormal septal motion consistent with LBBB. The right ventricular chamber size is normal. RV systolic function is mildly reduced. Mild mitral regurgitation. Findings Left Ventricle Chamber size is normal. Normal wall thickness. Global hypokinesis. Abnormal septal motion consistent with left bundle branch block. The ejection fraction is 35%. Ejection fraction is moderately reduced. Supraventricular dysrhythmias hamper diastology evaluation. Right Ventricle Chamber size is normal. Systolic function is mildly reduced. Left Atrium Chamber size is mildly enlarged. Right Atrium Chamber size is enlarged. Septum The atrial septum is normal. Mitral Valve Normal appearing leaflets. Leaflet mobility is normal. Mild regurgitation. No valve stenosis. Aortic Valve Trileaflet valve. Leaflet mobility is normal. No regurgitation. No stenosis. Tricuspid Valve Normal leaflets. Leaflet mobility is normal. Trace regurgitation. No stenosis. Pulmonary artery systolic pressure (PASP) is unable to be estimated. Pulmonic Valve Trace regurgitation. No stenosis. Aorta No dilation to extent seen. SOV: 2.79 cm. STJ: 2.57 cm. Ascendin.49 cm. Pericardium No pericardial effusion. IVC/SVC The inferior vena cava is normal in size. The inferior vena cava structure is normal. The diameter is >21 mm and decreases <50% during inspiration. Reading Providers Reading Role Read Date Otis Alicia MD Echo [place] 12/07/2024 Wall Scoring Score Index: 2.00 The left ventricular wall motion is globally hypokinetic. Left Heart Measurements LV - Systole LVIDD 4.98 cm IVS 1.11 cm LVIDS 4.01 cm PW 0.89 cm LV RWT 0.36 LV Mass Index 81.4 g/m2 LV EDV BP 136 mL LV ESV BP 89 mL BP EF 35 % LV stroke volume BP (ml) 47 mL LV stroke volume index BP 21.17 mL/m2 LV - Diastole MV pk E fuad 0.92 m/s e' septal pk fuad 0.04 m/s E/e' septal ratio 24.21 LV - HCM AV LVOT peak gradient 3 mmHg Left Atrium LA ESV SP 4CH (MOD) 63 mL LA ESV SP 2CH (MOD) 83 mL LA ESV BP (MOD) index 35 mL/m2 Right Heart Measurements RV - 2D RV basal diam 3.93 cm RV mid diam 2.69 cm RV long diam 7.69 cm RV - Doppler TAPSE 1.04 cm RV S' 9.63 cm/s Right Atrium RA vol index 4CH (MOD) 35.14 mL/m2 EST RAP 8 mmHg RA area 4CH (MOD) 24.75 cm2 Great Vessels Aortic Root - End Diastolic Sinus 2.79 cm STJ 2.57 cm Ascending aorta 2.49 cm Inferior Vena Cava IVC ostium 2.11 cm Doppler Measurements - Aortic Valve Stenosis LVOT diameter 1.99 cm LVOT area 3.11 cm2 LVOT peak fuad 0.8 m/s LVOT peak VTI 14.98 cm Stroke Volume 47 cm/mL Stroke volume index 21 Ao peak fuad 0.97 m/s Ao VTI 17.98 cm AV peak gradient 4 mmHG AV mean gradient 2 mmHg DI (VTI) 0.83 m/2 DI (Vmax) 0.82 NIALL (continuity Vmax) 2.56 cm2 NIALL index (continuity Vmax) 1.15 m/s NIALL (continuity VTI) 2.59 cm2 NIALL index (continuity VTI) 1.17 cm2/m2 LVOT stroke volume 47 cm3 LVOT stroke volume index 20.98 ml/m2 Doppler Measurements - Mitral Valve Stenosis MV pk E fuad 0.92 m/s MV VTI 17.38 cm MV peak gradient 5 mmHg MV mean gradient 2 mmHg MV valve area by continuity eq 2.68 cm2 PISA-MS MV pk E fuad 0.92 m/s Doppler Measurements - Tricuspid Valve Stenosis IVC ostium 2.11 cm Regurgitation EST RAP 8 mmHg Doppler Measurements - Pulmonic Valve Stenosis PV PK FUAD 0.76 m/s PV peak gradient 2 mmHg PV mean gradient 1 mmHg RVOT peak fuad 0.54 m/s RVOT peak VTI 8.95 cm RVOT peak gradient 1 mmHg Vitals Height Weight BSA (Calculated - sq m) BP Pulse 1.753 m (5' 9) 107.5 kg (237 lb) 2.22 m2 112/71 120 Performing Staff ABELINO Mccullough Study Details A complete echocardiography study (including color flow Doppler, spectral Doppler and M-mode) was pe (more content not included)... Normal [facility] HEMOGLOBIN A1Con 12-07-2024 Glucose [Mass/Vol] 128 mg/dL Normal [facility] Comment on above: Performed By: #### A CARMEN #### [facility] (DEFAULT) [address] [place] [address] Hemoglobin A1C HPLC 6.1 % High 4.7-5.[address] [facility] Comment on above: Performed By: #### A CARMEN #### [facility] [facility] (DEFAULT) [address] [id number] HEPATIC FUNCTION PANELon Albumin [Mass/Vol] 3.5 g/dL Normal 3.5-5.0 [facility] Comment on above: Performed By: #### C HM7, MGO, TRIG, IPB #### [facility] (DEFAULT) [address] [place] [address] [id number] ALP [Catalytic activity/Vol] 46 U/L Normal 32-[address] [facility] Comment on above: Performed By: #### C HM7, MGO, TRIG, IPB #### [facility] (DEFAULT) [address] [place] [address] 79581 ALT [Catalytic activity/Vol] 31 U/L Normal 10-[address] [facility] Comment on above: Performed By: #### C HM7, MGO, TRIG, IPB #### [facility] (DEFAULT) [address] [place] [address] 70534 AST [Catalytic activity/Vol] 32 U/L Normal 10-[address] [facility] Comment on above: Performed By: #### C HM7, MGO, TRIG, IPB #### [facility] (DEFAULT) [address] [place] [address] 61533 Bilirubin [Mass/Vol] 1.0 mg/dL Normal <1.[address] [facility] Comment on above: Performed By: #### C HM7, MGO, TRIG, IPB #### [facility] (DEFAULT) [address] [place] [address] 58291 Bilirubin.indirect [Mass/Vol] 0.3 mg/dL High <0.[address] [facility] Comment on above: Performed By: #### C HM7, MGO, TRIG, IPB #### [facility] (DEFAULT) [address] [place] [address] 11462 Protein [Mass/Vol] 6.3 g/dL Low 6.4-8.3 [facility] Comment on above: Performed By: #### C HM7, MGO, TRIG, IPB #### [facility] (DEFAULT) [address] [place] [address] 53901 LIPID PANEL W CALCULATED LDL on 12-07-2024 Calculated LDL Cholesterol 74 mg/dL Normal 0-[address] [facility] Comment on above: Result Comment: [<10 0 mg/dL: Optimal] [100-129 mg/dL: Near Optimal] [130-159 mg/dL: Borderline High] [160-189 mg/dL: High] [>189 mg/dL: Very High] Performed By: #### T RXN, TRXNP #### [facility] (DEFAULT) [address] [place] [address] 36514 Cholesterol [Mass/Vol] 142 mg/dL Normal <200 [facility] Comment on above: Result Comment: [<20 0 mg/dL: Desirable] [200-239 mg/dL: Borderline High] [>239 mg/dL: High] Performed By: #### T RXN, TRXNP #### [facility] (DEFAULT) [address] [place] [address] 78044 Cholesterol in HDL [Mass/Vol] 34 mg/dL Low >=[address] [facility] Comment on above: Result Comment: [<40 mg/dL: Low (High Risk)] [>59 mg/dL: High (Low Risk)] Performed By: #### T RXN, TRXNP #### [facility] (DEFAULT) [address] [place] [address] 75756 Non HDL Cholesterol 108 mg/dL Normal <[address] [facility] Comment on above: Performed By: #### T RXN, TRXNP #### [facility] (DEFAULT) [address] [place] [address] 80971 Total Cholesterol/HDL Ratio 4.2 Normal <4.[address] [facility] Comment on above: Performed By: #### T RXN, TRXNP #### [facility] (DEFAULT) [address] [place] [address] 13227 Triglyceride [Mass/Vol] 169 mg/dL High <150 [facility] Comment on above: Result Comment: [<15 0 mg/dL: Desirable] [150-199 mg/dL: Borderline] [200-499 mg/dL: High] [>500 mg/dL: Very High] Performed By: #### T RXN, TRXNP #### [facility] (DEFAULT) [address] [place] [address] 24404 MAGNESIUMon 12-07-2024 Magnesium [Mass/Vol] 2.2 mg/dL Normal 1.6-2.[address] [facility] Comment on above: Performed By: #### T RXN, TRXNP #### [facility] (DEFAULT) [address] [place] [address] 86134 NT-PRO B-TYPE NATRIURETIC PE PTIDEon 12-07-2024 Natriuretic peptide B (Bld) [Mass/Vol] 6725 pg/mL High <=[address] [facility] Comment on above: Performed By: #### T RXN, TRXNP #### [facility] (DEFAULT) [address] [place] [address] 94084 TSHon 12-07-2024 TSH 1.587 uIU/mL Normal 0.550-4.[address] [facility] Comment on above: Performed By: #### X M #### U [facility] (DEFAULT) [address] [place] [address] 58287 CRP, High Sensitivity [id number] on 12-02-2024 CRP, HIGH SENS 32.52 mg/L High 0.00-3.00 [facility] Comment on above: Result Comment: Resu lts confirmed ondilution. Relative Risk for Future Cardiovascular Event Low <1.00 Average 1.00 - 3.00 High >3.00Performed at: CB - [facility] [address] [id number] Director: Samuel Page PhD, Phone: [phone] Performed By: #### L 6345.3888, P278.9668 ####[facility] [address] [place], [address] Absolute lymphocyte countOrd ered By: Zechariah Siddiqui on 11-30-2024 Lymphocytes Auto (Unsp spec) [#/Vol] 1.25 10*3/uL 0.83-4.51 [facility] Absolute neutrophil countOrd ered By: Zechariah Siddiqui on 11-30-2024 Neutrophils (Bld) [#/Vol] 14.7 10*3/uL High 2.0-7.7 [facility] Anion gap in Serum or Plasma Ordered By: Zechariah Siddiqui on 11-30-2024 Anion gap [Moles/Vol] 15 mmol/L 5-15 [facility] Automated lymphocyte count a s percentage of total leukocytesOrdered By: Zechariah Siddiqui on 11-30-2024 Lymphocytes/100 WBC Auto (Unsp spec) 7.6 % Low 19-41 [facility] BUN/creatinine ratioOrdered By: Zechariah Siddiqui on 11-30-2024 Urea nitrogen/Creatinine [Mass ratio] 31.7 mg/mg High 10-20 [facility] Basophil percentageOrdered B y: Zechariah Siddiqui on 11-30-2024 Basophils/100 WBC (Bld) 0.1 % 0-1 [facility] Bilirubin, totalOrdered By: Zechariah Siddiqui on 11-30-2024 Bilirubin [Mass/Vol] 0.63 mg/dL 0.00-1.[address] [facility] Blood polychromasia detectio n by light microscopyOrdered By: Zechariah Siddiqui on 11-30-2024 Polychromasia LM Ql (Bld) 1+ [facility] C-reactive protein measureme nt by high sensitivity methodOrdered By: Zechariah Siddiqui on 11-30-2024 C-reactive protein measurement by high sensitivity method 32.52 mg/L High 0.00-3.00 [facility] Comment on above: Results confirmed on dilution. Relative Risk for Future Cardiovascular Event Low <1.00 Average 1.00 - 3.00 High >3.00Performed at: [facility] [address] [id number] Director: Samuel Page PhD, Phone: [phone] CBC W/Diff, Automatedon 11-18 Anisocytosis Ql (Bld) 1+ Normal [facility] Comment on above: Order Comment: Order Date: 11/30/24Order Info: [id number] - CBCDComments: cc copy all to cardiollogist to Dr. Carbone at [facility] Performed By: #### L 501.5200, L100.0100, L500.4050 ####[facility] [address] [place], [address] PLT EST A Normal ADEQ [facility] Comment on above: Order Comment: Order Date: 11/30/24Order Info: [id number] - CBCDComments: cc copy all to cardiollogist to Dr. Carbone at [facility] Performed By: #### L 501.5200, L100.0100, L500.4050 ####[facility] [address] [place], [address] POLYCHROMASIA 1+ Normal [facility] Comment on above: Order Comment: Order Date: 11/30/24Order Info: [id number] - CBCDComments: cc copy all to cardiollogist to Dr. Carbone at [facility] Performed By: #### L 501.5200, L100.0100, L500.4050 ####[facility] [address] [place], [address] Carbon dioxide, total [Moles /volume] in Central venous bloodOrdered By: Zechariah Siddiqui on 11-30-2024 CO2 [Moles/Vol] 23.4 mmol/L 21.0-32.0 [facility] Chloride assayOrdered By: Shady Siddiqui on 11-30-2024 Chloride [Moles/Vol] 104 mmol/L 98-[address] [facility] Comprehensive Metabolic Prof ilon 11-30-2024 Albumin [Mass/Vol] 3.4 g/dL Normal 3.4-4.8 [facility] Comment on above: Order Comment: Order Date: 11/30/24Order Info: [id number] - CMPOrder Info: [id number] - MGComments: cc [facility] Info: 3016-3 - TSHcc copy all to cardiollogist to Dr. Carbone at [facility] Performed By: #### L 501.5200, L100.0100, L500.4050 ####[facility] [address] [place], [address] Albumin/Globulin [Mass ratio] 1.1 {ratio} Normal 0.9-2.4 [facility] Comment on above: Order Comment: Order Date: 11/30/24Order Info: [id number] - CMPOrder Info: [id number] - MGComments: [facility] - TSHcc copy all to cardiollogist to Dr. Carbone at [facility] Performed By: #### L 501.5200, L100.0100, L500.4050 ####[facility] [address] [place], [address] ALK PHOS 63 U/L Normal 40-129 [facility] Comment on above: Order Comment: Order Date: 11/30/24Order Info: [id number] - CMPOrder Info: - MGComments: cc copy all [facility] Info: 3 - TSHcc copy all to cardiollogist to Dr. Carbone at [facility] Performed By: #### L 501.5200, L100.0100, L500.4050 ####[facility] [address] [place], [address] ALT [Catalytic activity/Vol] 42 U/L Normal <=46 [facility] Comment on above: Order Comment: Order Date: 11/30/24Order Info: [id number] - CMPOrder Info: - MGComments: cc copy [facility]: 3 - TSHcc copy all to cardiollogist to Dr. Carbone at [facility] Performed By: #### L 501.5200, L100.0100, L500.4050 ####[facility] [address] [place], [address] AST [Catalytic activity/Vol] 39 U/L High <=37 [facility] Comment on above: Order Comment: Order Date: 11/30/24Order Info: [id number] - CMPOrder Info: - MGComments: cc copy all [facility] Info: 3015-09 - TSHcc copy all to cardiollogist to Dr. Carbone at [facility] Performed By: #### L 501.5200, L100.0100, L500.4050 ####[facility] [address] [place], [address] Bilirubin [Mass/Vol] 0.63 mg/dL Normal 0.00-1.[address] [facility] Comment on above: Order Comment: Order Date: 11/30/24Order Info: [id number] - CMPOrder Info: - MGComments: cc copy all to cardiollogist to Dr[facility] Carbone at [facility] Info: 3015-09 - TSHcc copy all to cardiollogist to Dr. Carbone at [facility] Performed By: #### L 501.5200, L100.0100, L500.4050 ####[facility] [address] [place], [address] BUN/CRE 31.7 RATIO High 10-20 [facility] Comment on above: Order Comment: Order Date: 11/30/24Order Info: [id number] - CMPOrder Info: - MGComments: cc copy all to cardiollogist to Dr. Carbone at [facility] Info: 3015-09 - TSHcc copy all to cardiollogist to Dr. Carbone at [facility] Performed By: #### L 501.5200, L100.0100, L500.4050 ####[facility] [address] [place], [address] Calcium [Mass/Vol] 9.4 mg/dL Normal 7.6-11.0 [facility] Comment on above: Order Comment: Order Date: 11/30/24Order Info: [id number] - CMPOrder Info: - MGComments: cc copy all to cardiollogist to Dr. Carbone at [facility] Info: [id number] copy all to cardiollogist to Dr. Carbone at [facility] Performed By: #### L 501.5200, L100.0100, L500.4050 ####[facility] [address] [place], [address] Chloride [Moles/Vol] 104 mmol/L Normal 98-[address] [facility] Comment on above: Order Comment: Order Date: 11/30/24Order Info: 07 - CMPOrder Info: - MGComments: cc copy all [facility] Info: [id number] [facility] copy all to cardiollogist to Dr. Carbone at [facility] Performed By: #### L 501.5200, L100.0100, L500.4050 ####[facility] [address] [place], [address] CO2 [Moles/Vol] 23.4 mmol/L Normal 21.0-32.0 [facility] Comment on above: Order Comment: Order Date: 11/30/24Order Info: [id number] - CMPOrder Info: - MGComments: cc copy all [facility] Info: [id number] [facility] copy all to cardiollogist to Dr. Carbone at [facility] Performed By: #### L 501.5200, L100.0100, L500.4050 ####[facility] [address] [place], [address] Creatinine [Mass/Vol] 1.20 mg/dL Normal 0.70-1.20 [facility] Comment on above: Order Comment: Order Date: 11/30/24Order Info: [id number] - CMPOrder Info: - MGComments: cc copy all [facility] Info: 3015-09 - TSHcc copy all to cardiollogist to Dr. Carbone at [facility] Performed By: #### L 501.5200, L100.0100, L500.4050 ####[facility] [address] [place], [address] GAP 15 Normal 5-15 [facility] Comment on above: Order Comment: Order Date: 11/30/24Order Info: [id number] - CMPOrder Info: - MGComments: cc copy all [facility]ollog[facility] Info: 3016-3 - TSHcc copy all to cardiollogist to Dr. Carbone at [facility] Performed By: #### L 501.5200, L100.0100, L500.4050 ####[facility] [address] [place], [address] GFR/1.73 sq M.predicted among non-blacks MDRD (S/P/Bld) [Vol rate/Area] 65 mL/min/{1.73_m2} Normal >60 [facility] Comment on above: Order Comment: Order Date: 11/30/24Order Info: [id number] - CMPOrder Info: - MGComments: cc copy all to cardiollogist to Dr. Carbone at [facility] Info: 30112-21 - TSHcc copy all to cardiollogist to Dr. Carbone at [facility] Result Comment: mL/m in/1.73m2 CKD-EPI Creatinine Equation (2020) Performed By: #### L 501.5200, L100.0100, L500.4050 ####[facility] [address] [place], [address] Globulin (S) [Mass/Vol] 3.0 g/dL Normal 2.2-4.2 [facility] Comment on above: Order Comment: Order Date: 11/30/24Order Info: [id number] - CMPOrder Info: - MGComments: cc copy all [facility]ollog[facility] Info: 3016-3 - TSHcc copy all to cardiollogist to Dr. Carbone at [facility] Performed By: #### L 501.5200, L100.0100, L500.4050 ####[facility] [address] [place], [address] Glucose [Mass/Vol] 133 mg/dL High 70-99 [facility] Comment on above: Order Comment: Order Date: 11/30/24Order Info: [id number] - CMPOrder Info: - MGComments: cc copy all [facility] Info: [id number] TSHcc copy all to cardiollogist to Dr. Carbone at [facility] Performed By: #### L 501.5200, L100.0100, L500.4050 ####[facility] [address] [place], [address] Potassium [Moles/Vol] 4.0 mmol/L Normal 3.3-5.1 [facility] Comment on above: Order Comment: Order Date: 11/30/24Order Info: [id number] - CMPOrder Info: - MGComments: cc copy all [facility] Info: [id number] TSHcc copy all to cardiollogist to Dr. Carbone at [facility] Performed By: #### L 501.5200, L100.0100, L500.4050 ####[facility] [address] [place], [address] Sodium [Moles/Vol] 142 mmol/L Normal 133-145 [facility] Comment on above: Order Comment: Order Date: 11/30/24Order Info: [id number] - CMPOrder Info: - MGComments: cc copy all [facility] Info: 3015-09 TSHcc copy all to cardiollogist to Dr. Carbone at [facility] Performed By: #### L 501.5200, L100.0100, L500.4050 ####[facility] [address] [place], [place], [address] T PROT 6.4 g/dL Normal 5.9-8.4 [facility] Comment on above: Order Comment: Order Date: 11/30/24Order Info: [id number] - CMPOrder Info: - MGComments: cc copy all to cardiollogist to Dr[facility] Info: 3016-3 - TSHcc copy all to cardiollogist to Dr[facility] Carbone at [facility] Performed By: #### L 501.5200, L100.0100, L500.4050 ####[facility] [address] [place], [place], [address] Urea nitrogen [Mass/Vol] 38 mg/dL High 4-19 [facility] Comment on above: Order Comment: Order Date: 11/30/24Order Info: [id number] - CMPOrder Info: - MGComments: cc copy all [facility] Info: 3016-3 - TSHcc copy all to cardiollogist to Dr. Carbone at [facility] Performed By: #### L 501.5200, L100.0100, L500.4050 ####[facility] [address] [place], [place], [address] Eosinophil percentageOrdered By: Zechariah Siddiqui on 11-30-2024 Eosinophils/100 WBC (Bld) 0.1 % 0-5 [facility] Erythrocyte distribution wid th ratioOrdered By: Zechariah Siddiqui on 11-30-2024 Erythrocyte distribution width (RBC) [Ratio] 21.6 % High 11.6-14.6 [facility] Erythrocyte distribution wid th standard deviationOrdered By: Zechariah Siddiqui on 11-30-2024 Erythrocyte distribution width (RBC) [Ratio] 58.6 fl High 35.1-43.9 [facility] Glomerular filtration rate ( GFR) estimation/1.73 sq m using serum, plasma, or whole bOrdered By: Zechariah Siddiqui on 11-30-2024 GFR/1.73 sq M.predicted among non-blacks MDRD (S/P/Bld) [Vol rate/Area] 65 mL/min/{1.73_m2} >60 [facility] Comment on above: mL/min/1.73m2 CKD-EP I Creatinine Equation (2020) Hematocrit Auto (Bld) [Volum e fraction]Ordered By: Zechariah Siddiqui on 11-30-2024 Hematocrit (Bld) [Volume fraction] 40.4 % 40-54 [facility] Hemoglobin measurementOrdere d By: Zechariah Siddiqui on 11-30-2024 Hemoglobin (Bld) [Mass/Vol] 12.3 g/dL Low 13.0-16.5 [facility] Immature granulocytes/100 WB C Auto (Bld)Ordered By: Zechariah Siddiqui on 11-30-2024 Immature granulocytes/100 WBC (Bld) 0.500 % 0.0-0.9 [facility] Comment on above: IG% - Immature Granu locytes (promyelocytes, myelocytes and metamyelocytes) > 1% indicates that a LEFT SHIFT is Present. L503.7505on 11-30-2024 Natriuretic peptide B (Bld) [Mass/Vol] 8363 pg/mL High <=900 [facility] Comment on above: Order Comment: Order Date: 11/30/24Order Info: [id number] - CMPOrder Info: [id number] - MGComments: cc copy all [facility] Info: 3016-3 - TSH Result Comment: Hear t Failure Unlikely: < 300 pg/mLHeart Failure Likely< 50 Years: > 450 pg/mL50-75 Years: > 900 pg/mL>75 Years: > 1800 pg/mL Performed By: #### L 3100.7870, L503.7505 ####[facility] [address] [place], [place], [id number] Laboratory - Chemistry and C hemistry - challengeOrdered By: Zechariah Siddiqui on 11-30-2024 AST [Catalytic activity/Vol] 39 U/L High <38 [facility] Laboratory - Hematology and Cell countsOrdered By: Zechariah Siddiqui on 11-30-2024 Anisocytosis Ql (Bld) 1+ [facility] MCV (mean corpuscular volume ) determinationOrdered By: Zechariah Siddiqui on 11-30-2024 MCV (RBC) [Entitic vol] 81.0 fL 80-94 [facility] Magnesiumon 11-30-2024 Magnesium [Mass/Vol] 1.7 mg/dL Normal 1.5-2.[address] [facility] Comment on above: Order Comment: Order Date: 11/30/24Order Info: [id number] - CMPOrder Info: [id number] - MGComments: cc copy all [facility] Info: 3016-3 - TSH Performed By: #### L 501.5200, L100.0100, L500.4050 ####[facility] [address] [place], [address] Magnesium measurement (mass/ volume)Ordered By: Zechariah Siddiqui on 11-30-2024 Magnesium (Unsp spec) [Mass/Vol] 1.7 mg/dL 1.5-2.2 [facility] Mean corpuscular hemoglobin (MCH) determinationOrdered By: Zechariah Siddiqui on 11-30-2024 MCH (RBC) [Entitic mass] 24.6 pg Low 27.0-32.0 [facility] Mean corpuscular hemoglobin concentration (MCHC) determinationOrdered By: Zechariah Siddiqui on 11-30-2024 MCHC (RBC) [Mass/Vol] 30.4 g/dL Low 32-36 [facility] Mean platelet volume determi nationOrdered By: Zechariah Siddiqui on 11-30-2024 Platelet mean volume (Bld) [Entitic vol] 11.0 fL 6.2-12.0 [facility] Monocyte percentageOrdered B y: Zechariah Siddiqui on 11-30-2024 Monocytes/100 WBC (Bld) 2.4 % 0-10 [facility] Natriuretic peptide.B prohor kt N-Terminal [Mass/volume] in Serum or PlasmaOrdered By: Zechariah Siddiqui on 11-30-2024 Natriuretic peptide.B prohormone N-Terminal [Mass/Vol] 8363 pg/mL High <900 [facility] Comment on above: Heart Failure Unlike ly: < 300 pg/mLHeart Failure Likely< 50 Years: > 450 pg/mL50-75 Years: > 900 pg/mL>75 Years: > 1800 pg/mL Neutrophil percentageOrdered By: Zechariah Siddiqui on 11-30-2024 Neutrophils/100 WBC (Bld) 89.3 % High 47-70 [facility] No Panel InformationOrdered By: Zechariah Siddiqui on 11-30-2024 1+ [facility] 39 U/L High <38 [facility] Nucleated red blood cell per centageOrdered By: Zechariah Siddiqui on 11-30-2024 Nucleated RBC/100 WBC (Bld) [Ratio] 0 % 0-5 [facility] Platelet countOrdered By: Shady Siddiqui on 11-30-2024 Platelets (Bld) [#/Vol] 340 10*3/uL 150-450 [facility] Platelet estimateOrdered By: Zechariah Siddiqui on 11-30-2024 Platelets LM Ql (Bld) A ADEQ [facility] Potassium measurement (mass/ volume)Ordered By: Zechariah Siddiqui on 11-30-2024 Potassium (Unsp spec) [Mass/Vol] 4.0 mmol/L 3.3-5.1 [facility] RBC Auto (Bld) [#/Vol]Ordere d By: Zechariah Siddiqui on 11-30-2024 RBC (Bld) [#/Vol] 4.99 10*6/uL 4.6-6.2 [facility] Serum creatinine measurement (mass/volume)Ordered By: Zechariah Siddiqui on 11-30-2024 Creatinine [Mass/Vol] 1.20 mg/dL 0.70-1.20 [facility] Serum globulin measurementOr dered By: Zechariah Siddiqui on 11-30-2024 Globulin (S) [Mass/Vol] 3.0 g/dL 2.2-4.2 [facility] Serum glucose measurement (m ass/volume)Ordered By: Zechariah Siddiqui on 11-30-2024 Glucose [Mass/Vol] 133 mg/dL High 70-99 [facility] Serum or plasma alanine pitt otransferase (ALT) measurementOrdered By: Zechariah Siddiqui on 11-30-2024 ALT [Catalytic activity/Vol] 42 U/L <47 [facility] Serum or plasma albumin tremayne urement (mass/volume)Ordered By: Zechariah Siddiqui on 11-30-2024 Albumin [Mass/Vol] 3.4 g/dL 3.4-4.8 [facility] Serum or plasma albumin/glob ulin mass ratioOrdered By: Zechariah Siddiqui on 11-30-2024 Albumin/Globulin [Mass ratio] 1.1 {ratio} 0.9-2.4 [facility] Serum or plasma alkaline david sphatase measurementOrdered By: Zechariah Siddiqui on 11-30-2024 ALP [Catalytic activity/Vol] 63 U/L 40-129 [facility] Serum or plasma calcium tremayne urement (mass/volume)Ordered By: Zechariah Siddiqui on 11-30-2024 Calcium [Mass/Vol] 9.4 mg/dL 7.6-11.0 [facility] Serum or plasma urea nitroge n measurement (mass/volume)Ordered By: Zechariah Siddiqui on 11-30-2024 Urea nitrogen [Mass/Vol] 38 mg/dL High 4-19 [facility] Sodium levelOrdered By: Zechariah Siddiqui on 11-30-2024 Sodium [Moles/Vol] 142 mmol/L 133-145 [facility] TSH DL <= 0.005 mIU/L QnOrde red By: Zechariah Siddiqui on 11-30-2024 TSH Qn 1.110 uIU/mL 0.300-4.200 [facility] Thyroid Stim Hormone (TSH)on 11-30-2024 TSH 1.110 uIU/mL Normal 0.300-4.200 [facility] Comment on above: Order Comment: Order Date: 11/30/24Order Info: [id number] - CMPOrder Info: [id number] - MGComments: cc copy all to cardiollogist to Dr. Carbone at [facility] Info: 3016-3 - TSH Performed By: #### L 501.9520 ####[facility] [address] [place], [address] Total proteinOrdered By: Carolyn Siddiqui on 11-30-2024 Protein [Mass/Vol] 6.4 g/dL 5.9-8.4 [facility] White blood cell (WBC) count Ordered By: Zechariah Siddiqui on 11-30-2024 WBC (Bld) [#/Vol] 16.4 10*3/uL High 4.4-11.0 [facility] Misc.on 11-21-2024 [facility] Misc. 4 COMMENT Normal . [facility] Comment on above: Result Comment: Test Ordered: 192603 OmegaCheck(TM) (EPA+DPA+DHA)OmegaCheck(TM) 4.8 [L ] % by wt CLHRT Reference Range: >5.4Relative Risk: MODIncreasing blood levels of long-chain n-3 fatty acids areassociated with a lower risk of sudden cardiac (1).Based on the top (75th percentile) and bottom (25thpercentile) quartiles of the CHL reference population, thefollowing risk categories were established for OmegaCheck:A cut-off of >=5.5% by wt defines a population at lowrelative risk, 3.8-5.4% by wt defines a population atmoderate relative risk, and <=3.7% by wt defines apopulation at high relative risk of sudden cardiac .The totality of the scientific evidence demonstrates thatwhen consumption of fish oils is limited to 3 g/day or lessof EPA and DHA, there is no significant risk for increasedbleeding time beyond the normal range. A daily dosage of 1gram of EPA and DHA lowers the circulating triglycerides byabout 7-10% within 2 to 3 weeks. (Reference: 1-Paulino et al.NEJ. 2002; 346: 1841-4897).Effective November 12, 2024, 209789 OmegaCheck(TM) (EPA+DPA+DHA) will be made non-orderable. No replacement number is available. For further information, please contact your local [facility] Student Counselor.Arachidonic Acid/EPA Ratio 22.6 CLHRT Reference Range: 3.7-40.7Omega-6/[place]-3 Ratio 8.3 CLHRT Reference Range: 3.7-14.4Omega-3 total 4.8 % by wt CLHRT Reference Range: .EPA 0.6 % by wt CLHRT Reference Range: 0.2-2.3DPA 1.3 % by wt CLHRT Reference Range: 0.8-1.8DHA 3.0 % by wt CLHRT Reference Range: 1.4-5.1Omega-6 total 39.9 % by wt CLHRT Reference Range: .[facility] measures a number of omega-6 fatty acidswith AA and LA being the two most abundant forms reported.Arachidonic Acid 13.3 % by wt CLHRT Reference Range: 8.6-15.6Linoleic Acid 22.3 % by wt CLHRT Reference Range: 18.6-29.5This test is performed by a Liquid Chromatography-TandemMass Spectrometry (LC/MS/MS) method. This test was developedand its performance characteristics determined by the[facility] It has not been cleared or approvedby the U.S. FDA. The [facility] is regulated underClinical Laboratory Improvement Amendments (CLIA) asqualified to perform high-complexity testing. This test isused for clinical purposes. It should not be regarded asinvestigational or for research.Performed at: [address] [id number] Director: Angelo Lau MD, Phone: [phone] at: [address] [id number] Director: Samuel Page PhD, Phone: [phone] Performed By: #### L 501.5825, H147.0098, L101.6281, L3410.9997 ####[facility] [address] [place], [place], [id number] Chest PA and Lateralon 11-11 Chest PA and Lateral Normal [facility] L7000.0750on 11-08-2024 P ELASTASE,FECA 335 Normal >200 [facility] Comment on above: Result Comment: Resu lt Units: ug Elast./g Severe Pancreatic Insufficiency: <100 Moderate Pancreatic Insufficiency: 100 - 200 Normal: >200Performed at: [facility] [address] [id number] Director: Jaden Sofia MD, Phone: [phone] Performed By: #### L 7000.0750 ####[facility] [address] [place], [place], [id number] Stool pancreatic elastase me asurement (mass/mass)Ordered By: Zechariah Siddiqui on 11-04-2024 Elastase.pancreatic (Stl) [Mass/Mass] 335 >200 [facility] Comment on above: Result Units: ug Jannet st./g Severe Pancreatic Insufficiency: <100 Moderate Pancreatic Insufficiency: 100 - 200 Normal: >200Performed at: [facility] - [facility] [address] [id number] Director: Jaden Sofia MD, Phone: [phone] Absolute lymphocyte countOrd ered By: Zechariah Siddiqui on 10-29-2024 Lymphocytes Auto (Unsp spec) [#/Vol] 1.23 10*3/uL 0.83-4.51 [facility] Absolute neutrophil countOrd ered By: Zechariah Siddiqui on 10-29-2024 Neutrophils (Bld) [#/Vol] 9.3 10*3/uL High 2.0-7.7 [facility] Anion gap in Serum or Plasma Ordered By: Zechariah Siddiqui on 10-29-2024 Anion gap [Moles/Vol] 14 mmol/L 5-15 [facility] Automated lymphocyte count a s percentage of total leukocytesOrdered By: Zechariah Siddiqui on 10-29-2024 Lymphocytes/100 WBC Auto (Unsp spec) 10.3 % Low 19-41 [facility] BUN/creatinine ratioOrdered By: Zechariah Siddiqui on 10-29-2024 Urea nitrogen/Creatinine [Mass ratio] 17.0 mg/mg 10-20 [facility] Basophil percentageOrdered B y: Zechariah Siddiqui on 10-29-2024 Basophils/100 WBC (Bld) 0.3 % 0-1 [facility] Bilirubin, totalOrdered By: Zechariah Siddiqui on 10-29-2024 Bilirubin [Mass/Vol] 0.55 mg/dL 0.00-1.[address] [facility] CBC W/Diff, Automatedon 10-19 Absolute Neut 9.3 X10 3/uL High 2.0-7.7 [facility] Comment on above: Order Comment: Order Date: 10/29/24Order Info: [id number] - CBCD Performed By: #### L 100.0100, L501.9520, L506.0400, L500.4050 ####[facility] [address] [place], [address] Erythrocyte distribution width (RBC) [Ratio] 16.1 % High 11.6-14.6 [facility] Comment on above: Order Comment: Order Date: 10/29/24Order Info: [id number] - CBCD Performed By: #### L 100.0100, L501.9520, L506.0400, L500.4050 ####[facility] [address] [place], [address] Hematocrit (Bld) [Volume fraction] 40.1 % Normal 40-54 [facility] Comment on above: Order Comment: Order Date: 10/29/24Order Info: [id number] - CBCD Performed By: #### L 100.0100, L501.9520, L506.0400, L500.4050 ####[facility] [address] [place], [address] Hemoglobin (Bld) [Mass/Vol] 12.4 g/dL Low 13.0-16.5 [facility] Comment on above: Order Comment: Order Date: 10/29/24Order Info: [id number] - CBCD Performed By: #### L 100.0100, L501.9520, L506.0400, L500.4050 ####[facility] [address] [place], [address] MCH (RBC) [Entitic mass] 24.9 pg Low 27.0-32.0 [facility] Comment on above: Order Comment: Order Date: 10/29/24Order Info: [id number] - CBCD Performed By: #### L 100.0100, L501.9520, L506.0400, L500.4050 ####[facility] [address] [place], [address] MCHC (RBC) [Mass/Vol] 30.9 g/dL Low 32-36 [facility] Comment on above: Order Comment: Order Date: 10/29/24Order Info: 0184-1 - CBCD Performed By: #### L 100.0100, L501.9520, L506.0400, L500.4050 ####[facility] [address] [place], [address] MCV (RBC) [Entitic vol] 80.5 fL Normal 80-94 [facility] Comment on above: Order Comment: Order Date: 10/29/24Order Info: 018-1 - CBCD Performed By: #### L 100.0100, L501.9520, L506.0400, L500.4050 ####[facility] [address] [place], [address] Neutrophils/100 WBC (Bld) 78.1 % High 47-70 [facility] Comment on above: Order Comment: Order Date: 10/29/24Order Info: 018- - CBCD Performed By: #### L 100.0100, L501.9520, L506.0400, L500.4050 ####[facility] [address] [place], [address] Platelets (Bld) [#/Vol] 510 10*3/uL High 150-450 [facility] Comment on above: Order Comment: Order Date: 10/29/24Order Info: [id number] - CBCD Performed By: #### L 100.0100, L501.9520, L506.0400, L500.4050 ####[facility] [address] [place], [address] RBC (Bld) [#/Vol] 4.98 10*6/uL Normal 4.6-6.2 [facility] Comment on above: Order Comment: Order Date: 10/29/24Order Info: [id number] - CBCD Performed By: #### L 100.0100, L501.9520, L506.0400, L500.4050 ####[facility] [address] [place], [address] RDW SD 46.7 fl High 35.1-43.9 [facility] Comment on above: Order Comment: Order Date: 10/29/24Order Info: [id number] - CBCD Performed By: #### L 100.0100, L501.9520, L506.0400, L500.4050 ####[facility] [address] [place], [address] WBC (Bld) [#/Vol] 12.0 10*3/uL High 4.4-11.0 [facility] Comment on above: Order Comment: Order Date: 10/29/24Order Info: [id number] - CBCD Performed By: #### L 100.0100, L501.9520, L506.0400, L500.4050 ####[facility] [address] [place], [address] CRPon 10-29-2024 C-REACTIVE PROT 171.00 mg/L High 0.0-3.0 [facility] Comment on above: Order Comment: Order Date: 10/29/24Order Info: [id number] - CMPOrder Info: [id number] - TSHOrder Info: 3024-7 - T4F Performed By: #### L 501.2450, L501.6710, L101.9900, L3410.9998 ####[facility] [address] [place], [address] CRP [Mass/Vol]Ordered By: Shady Siddiqui on 10-29-2024 C-Reactive Protein Extended Range 171.00 mg/L High 0.0-3.0 [facility] Carbon dioxide, total [Moles /volume] in Central venous bloodOrdered By: Zechariah Siddiqui on 10-29-2024 CO2 [Moles/Vol] 21.1 mmol/L 21.0-32.0 [facility] Chloride assayOrdered By: Shady Siddiqui on 10-29-2024 Chloride [Moles/Vol] 101 mmol/L 98-[address] [facility] Comprehensive Metabolic Prof ilon 10-29-2024 Albumin [Mass/Vol] 3.5 g/dL Normal 3.4-4.8 [facility] Comment on above: Order Comment: Order Date: 10/29/24Order Info: [id number] - CMPOrder Info: 3 - TSHOrder Info: 302-7 - T4F Performed By: #### L 100.0100, L501.9520, L506.0400, L500.4050 ####[facility] [address] [place], [address] Albumin/Globulin [Mass ratio] 0.8 {ratio} Low 0.9-2.4 [facility] Comment on above: Order Comment: Order Date: 10/29/24Order Info: 0786-1 - CMPOrder Info: [id number] - TSHOrder Info: 3024-7 - T4F Performed By: #### L 100.0100, L501.9520, L506.0400, L500.4050 ####[facility] [address] [place], [address] ALK PHOS 49 U/L Normal 40-129 [facility] Comment on above: Order Comment: Order Date: 10/29/24Order Info: [id number] - CMPOrder Info: [id number] - TSHOrder Info: 3024-7 - T4F Performed By: #### L 100.0100, L501.9520, L506.0400, L500.4050 ####[facility] [address] [place], [address] ALT [Catalytic activity/Vol] 17 U/L Normal <=46 [facility] Comment on above: Order Comment: Order Date: 10/29/24Order Info: [id number] - CMPOrder Info: [id number] - TSHOrder Info: 3024-7 - T4F Performed By: #### L 100.0100, L501.9520, L506.0400, L500.4050 ####[facility] [address] [place], [address] AST [Catalytic activity/Vol] 29 U/L Normal <=37 [facility] Comment on above: Order Comment: Order Date: 10/29/24Order Info: [id number] - CMPOrder Info: 3 - TSHOrder Info: 3024-7 - T4F Performed By: #### L 100.0100, L501.9520, L506.0400, L500.4050 ####[facility] [address] [place], [address] Bilirubin [Mass/Vol] 0.55 mg/dL Normal 0.00-1.[address] [facility] Comment on above: Order Comment: Order Date: 10/29/24Order Info: [id number] - CMPOrder Info: 3 - TSHOrder Info: 3027 - T4F Performed By: #### L 100.0100, L501.9520, L506.0400, L500.4050 ####[facility] [address] [place], [address] BUN/CRE 17.0 RATIO Normal 10-20 [facility] Comment on above: Order Comment: Order Date: 10/29/24Order Info: [id number] - CMPOrder Info: 3 - TSHOrder Info: 3024-7 - T4F Performed By: #### L 100.0100, L501.9520, L506.0400, L500.4050 ####[facility] [address] [place], [address] Calcium [Mass/Vol] 8.9 mg/dL Normal 7.6-11.0 [facility] Comment on above: Order Comment: Order Date: 10/29/24Order Info: 0786-1 - CMPOrder Info: 3 - TSHOrder Info: 3024-7 - T4F Performed By: #### L 100.0100, L501.9520, L506.0400, L500.4050 ####[facility] [address] [place], [address] Chloride [Moles/Vol] 101 mmol/L Normal 98-[address] [facility] Comment on above: Order Comment: Order Date: 10/29/24Order Info: 0786-1 - CMPOrder Info: [id number] - TSHOrder Info: 3027 - T4F Performed By: #### L 100.0100, L501.9520, L506.0400, L500.4050 ####[facility] [address] [place], [address] CO2 [Moles/Vol] 21.1 mmol/L Normal 21.0-32.0 [facility] Comment on above: Order Comment: Order Date: 10/29/24Order Info: [id number] - CMPOrder Info: 3 - TSHOrder Info: 3027 - T4F Performed By: #### L 100.0100, L501.9520, L506.0400, L500.4050 ####[facility] [address] [place], [address] Creatinine [Mass/Vol] 1.28 mg/dL High 0.70-1.20 [facility] Comment on above: Order Comment: Order Date: 10/29/24Order Info: [id number] - CMPOrder Info: 3 - TSHOrder Info: 3024-7 - T4F Performed By: #### L 100.0100, L501.9520, L506.0400, L500.4050 ####[facility] [address] [place], [address] GAP 14 Normal 5-15 [facility] Comment on above: Order Comment: Order Date: 10/29/24Order Info: 0786-1 - CMPOrder Info: [id number] - TSHOrder Info: 3024-7 - T4F Performed By: #### L 100.0100, L501.9520, L506.0400, L500.4050 ####[facility] [address] [place], [address] GFR/1.73 sq M.predicted among non-blacks MDRD (S/P/Bld) [Vol rate/Area] 60 mL/min/{1.73_m2} Normal >60 [facility] Comment on above: Order Comment: Order Date: 10/29/24Order Info: 785- - CMPOrder Info: [id number] - TSHOrder Info: 3024-7 - T4F Result Comment: mL/m in/1.73m2 CKD-EPI Creatinine Equation (2020) Performed By: #### L 100.0100, L501.9520, L506.0400, L500.4050 ####[facility] [address] [place], [address] Globulin (S) [Mass/Vol] 4.3 g/dL High 2.2-4.2 [facility] Comment on above: Order Comment: Order Date: 10/29/24Order Info: 785- - CMPOrder Info: 3 - TSHOrder Info: 3024-7 - T4F Performed By: #### L 100.0100, L501.9520, L506.0400, L500.4050 ####[facility] [address] [place], [address] Glucose [Mass/Vol] 122 mg/dL High 70-99 [facility] Comment on above: Order Comment: Order Date: 10/29/24Order Info: 07- - CMPOrder Info: [id number] - TSHOrder Info: 3024-7 - T4F Performed By: #### L 100.0100, L501.9520, L506.0400, L500.4050 ####[facility] [address] [place], [address] Potassium [Moles/Vol] 3.9 mmol/L Normal 3.3-5.1 [facility] Comment on above: Order Comment: Order Date: 10/29/24Order Info: [id number] - CMPOrder Info: 3 - TSHOrder Info: 3024-7 - T4F Performed By: #### L 100.0100, L501.9520, L506.0400, L500.4050 ####[facility] [address] [place], [address] Sodium [Moles/Vol] 136 mmol/L Normal 133-145 [facility] Comment on above: Order Comment: Order Date: 10/29/24Order Info: 07- - CMPOrder Info: [id number] - TSHOrder Info: 3024-7 - T4F Performed By: #### L 100.0100, L501.9520, L506.0400, L500.4050 ####[facility] [address] [place], [address] T PROT 7.9 g/dL Normal 5.9-8.4 [facility] Comment on above: Order Comment: Order Date: 10/29/24Order Info: 07 - CMPOrder Info: 3 - TSHOrder Info: 3024-7 - T4F Performed By: #### L 100.0100, L501.9520, L506.0400, L500.4050 ####[facility] [address] [place], [address] Urea nitrogen [Mass/Vol] 22 mg/dL High 4-19 [facility] Comment on above: Order Comment: Order Date: 10/29/24Order Info: [id number] - CMPOrder Info: 3 - TSHOrder Info: 3024-7 - T4F Performed By: #### L 100.0100, L501.9520, L506.0400, L500.4050 ####[facility] [address] [place], [place], [address] Eosinophil percentageOrdered By: Zechariah Siddiqui on 10-29-2024 Eosinophils/100 WBC (Bld) 2.8 % 0-5 [facility] Erythrocyte Sed Rateon 10-29 SED RATE 123 mm/hr High 0-20 [facility] Comment on above: Order Comment: Order Date: 10/29/24Order Info: 0184-1 - CBCD Performed By: #### L 501.2450, L501.6710, L101.9900, L3410.9998 ####[facility] [address] [place], [place], [id number] Erythrocyte distribution wid th (RBC) [Ratio]Ordered By: Zechariah Siddiqui on 10-29-2024 Erythrocyte distribution width (RBC) [Entitic vol] 46.7 fL High 35.1-43.9 [facility] Erythrocyte distribution wid th ratioOrdered By: Zechariah Siddiqui on 10-29-2024 Erythrocyte distribution width (RBC) [Ratio] 16.1 % High 11.6-14.6 [facility] Erythrocyte distribution wid th standard deviationOrdered By: Zechariah Siddiqui on 10-29-2024 Erythrocyte distribution width (RBC) [Ratio] 46.7 fl High 35.1-43.9 [facility] Erythrocyte sedimentation ra teOrdered By: Zechariah Siddiqui on 10-29-2024 ESR (Bld) [Velocity] 123 mm/h High 0-[address] [facility] GFR/1.73 sq M.predicted aparna g non-blacks MDRD (S/P/Bld) [Vol rate/Area]Ordered By: Zechariah Siddiqui on 10-29-2024 Estimated GFR (MDRD) Non-Af Amer 60 >60 [facility] Comment on above: mL/min/1.73m2 CKD-EP I Creatinine Equation (2020) Glomerular filtration rate ( GFR) estimation/1.73 sq m using serum, plasma, or whole bOrdered By: Zechariah Siddiqui on 10-29-2024 GFR/1.73 sq M.predicted among non-blacks MDRD (S/P/Bld) [Vol rate/Area] 60 mL/min/{1.73_m2} >60 [facility] Comment on above: mL/min/1.73m2 CKD-EP I Creatinine Equation (2020) Hematocrit Auto (Bld) [Volum e fraction]Ordered By: Zechariah Siddiqui on 10-29-2024 Hematocrit (Bld) [Volume fraction] 40.1 % 40-54 [facility] Hemoglobin measurementOrdere d By: Zechariah Siddiqui on 10-29-2024 Hemoglobin (Bld) [Mass/Vol] 12.4 g/dL Low 13.0-16.5 [facility] Immature granulocytes/100 WB C Auto (Bld)Ordered By: Zechariah Siddiqui on 10-29-2024 Immature granulocytes/100 WBC (Bld) 0.300 % 0.0-0.9 [facility] Comment on above: IG% - Immature Granu locytes (promyelocytes, myelocytes and metamyelocytes) > 1% indicates that a LEFT SHIFT is Present. Laboratory - Chemistry and C hemistry - challengeOrdered By: Zechariah Siddiqui on 10-29-2024 AST [Catalytic activity/Vol] 29 U/L <38 [facility] Lipaseon 10-29-2024 Lipase [Catalytic activity/Vol] 29 U/L Normal 13-75 [facility] Comment on above: Order Comment: Order Date: 10/29/24Order Info: [id number] - CMPOrder Info: [id number] - TSHOrder Info: 3024-7 - T4F Result Comment: Liliana zhu note:LIPASE revised reference range effective 22.New Lipase methodology. Expected to produce lower valuesthan the previous assay method.NEW Reference Range: 13 - 75 U/L Performed By: #### L 501.2450, L501.6710, L101.9900, L3410.9998 ####[facility] [address], [place], [id number] Lipase measurementOrdered By : Zechariah Siddiqui on 10-29-2024 Lipase [Catalytic activity/Vol] 29 U/L 13-75 [facility] Comment on above: Please note:LIPASE r evised reference range effective 22. New Lipase methodology. Expected to produce lower values than the previous assay method. NEW Reference Range: 13 - 75 U/L Lymphocytes Auto (Unsp spec) [#/Vol]Ordered By: Zechariah Siddiqui on 10-29-2024 Lymphocytes (Bld) [#/Vol] 1.23 10*3/uL 0.83-4.51 [facility] Lymphocytes/100 WBC Auto (Un sp spec)Ordered By: Zechariah Siddiqui on 10-29-2024 Lymphocytes/100 WBC (Bld) 10.3 % Low 19-41 [facility] MCV (mean corpuscular volume ) determinationOrdered By: Zechariah Siddiqui on 10-29-2024 MCV (RBC) [Entitic vol] 80.5 fL 80-94 [facility] Mean corpuscular hemoglobin (MCH) determinationOrdered By: Zechariah Siddiqui on 10-29-2024 MCH (RBC) [Entitic mass] 24.9 pg Low 27.0-32.0 [facility] Mean corpuscular hemoglobin concentration (MCHC) determinationOrdered By: Zechariah Siddiqui on 10-29-2024 MCHC (RBC) [Mass/Vol] 30.9 g/dL Low 32-36 [facility] Mean platelet volume determi nationOrdered By: Zechariah Siddiqui on 10-29-2024 Platelet mean volume (Bld) [Entitic vol] 10.8 fL 6.2-12.0 [facility] Monocyte percentageOrdered B y: Zechariah Siddiqui on 10-29-2024 Monocytes/100 WBC (Bld) 8.2 % 0-10 [facility] Neutrophil percentageOrdered By: Zechariah Siddiqui on 10-29-2024 Neutrophils/100 WBC (Bld) 78.1 % High 47-70 [facility] No Panel InformationOrdered By: Zechariah Siddiqui on 10-29-2024 29 U/L <38 [facility] Nucleated red blood cell per centageOrdered By: Zechariah Siddiqui on 10-29-2024 Nucleated RBC/100 WBC (Bld) [Ratio] 0 % 0-5 [facility] Platelet countOrdered By: Shady Siddiqui on 10-29-2024 Platelets (Bld) [#/Vol] 510 10*3/uL High 150-450 [facility] Potassium (Unsp spec) [Mass/ Vol]Ordered By: Zechariah Siddiqui on 10-29-2024 Potassium [Moles/Vol] 3.9 mmol/L 3.3-5.1 [facility] Potassium measurement (mass/ volume)Ordered By: Zechariah Siddiqui on 10-29-2024 Potassium (Unsp spec) [Mass/Vol] 3.9 mmol/L 3.3-5.1 [facility] RBC Auto (Bld) [#/Vol]Ordere d By: Zechariah Siddiqui on 10-29-2024 RBC (Bld) [#/Vol] 4.98 10*6/uL 4.6-6.2 [facility] Serum creatinine measurement (mass/volume)Ordered By: Zechariah Siddiqui on 10-29-2024 Creatinine [Mass/Vol] 1.28 mg/dL High 0.70-1.20 [facility] Serum globulin measurementOr dered By: Zechariah Siddiqui on 10-29-2024 Globulin (S) [Mass/Vol] 4.3 g/dL High 2.2-4.2 [facility] Serum glucose measurement (m ass/volume)Ordered By: Zechariah Siddiqui on 10-29-2024 Glucose [Mass/Vol] 122 mg/dL High 70-99 [facility] Serum or plasma C reactive p rotein measurement (mass/volume)Ordered By: Zechariah Siddiqui on 10-29-2024 CRP [Mass/Vol] 171.00 mg/L High 0.0-3.0 [facility] Serum or plasma alanine pitt otransferase (ALT) measurementOrdered By: Zechariah Siddiqui on 10-29-2024 ALT [Catalytic activity/Vol] 17 U/L <47 [facility] Serum or plasma albumin tremayne urement (mass/volume)Ordered By: Zechariah Siddiqui on 10-29-2024 Albumin [Mass/Vol] 3.5 g/dL 3.4-4.8 [facility] Serum or plasma albumin/glob ulin mass ratioOrdered By: Zechariah Siddiqui on 10-29-2024 Albumin/Globulin [Mass ratio] 0.8 {ratio} Low 0.9-2.4 [facility] Serum or plasma alkaline david sphatase measurementOrdered By: Zechariah Siddiqui on 10-29-2024 ALP [Catalytic activity/Vol] 49 U/L 40-129 [facility] Serum or plasma calcium tremayne urement (mass/volume)Ordered By: Zechariah Siddiqui on 10-29-2024 Calcium [Mass/Vol] 8.9 mg/dL 7.6-11.0 [facility] Serum or plasma urea nitroge n measurement (mass/volume)Ordered By: Zechariah Siddiqui on 10-29-2024 Urea nitrogen [Mass/Vol] 22 mg/dL High 4-19 [facility] Sodium levelOrdered By: Zechariah Siddiqui on 10-29-2024 Sodium [Moles/Vol] 136 mmol/L 133-145 [facility] T4 Free Directon 10-29-2024 T4 FREE DIRECT 1.20 ng/dL Normal 0.76-1.46 [facility] Comment on above: Order Comment: Order Date: 10/29/24Order Info: [id number] - CMPOrder Info: [id number] - TSHOrder Info: [id number] - T4F Performed By: #### L 100.0100, L501.9520, L506.0400, L500.4050 ####[facility] [address] [place], [place], [address] T4 freeOrdered By: Zechariah nguyen on 10-29-2024 Free T4 [Mass/Vol] 1.20 ng/dL 0.76-1.46 [facility] TSH DL <= 0.005 mIU/L QnOrde red By: Zechariah Siddiqui on 10-29-2024 Thyroid Stimulating Hormone (TSH) 0.812 uIU/mL 0.300-4.200 [facility] TSH Qn 0.812 uIU/mL 0.300-4.200 [facility] Thyroid Stim Hormone (TSH)on 10-29-2024 TSH 0.812 uIU/mL Normal 0.300-4.200 [facility] Comment on above: Order Comment: Order Date: 10/29/24Order Info: [id number] - CMPOrder Info: [id number] - TSHOrder Info: [id number] - T4F Performed By: #### L 100.0100, L501.9520, L506.0400, L500.4050 ####[facility] [address] [place], [place], [id number] Total proteinOrdered By: Carolyn Siddiqui on 10-29-2024 Protein [Mass/Vol] 7.9 g/dL 5.9-8.4 [facility] White blood cell (WBC) count Ordered By: Zechariah Siddiqui on 10-29-2024 WBC (Bld) [#/Vol] 12.0 10*3/uL High 4.4-11.0 [facility] Abdomen/Pelvis WITH Contrast on 08-20-2024 Abdomen/Pelvis WITH Contrast Normal [facility] Absolute lymphocyte countOrd ered By: Samuel Carreno on 08-12-2024 Lymphocytes Auto (Unsp spec) [#/Vol] 1.25 10*3/uL 0.83-4.51 [facility] Absolute neutrophil countOrd ered By: Samuel Carreno on 08-12-2024 Neutrophils (Bld) [#/Vol] 12.5 10*3/uL High 2.0-7.7 [facility] Albumin to globulin ratioOrd ered By: Samuel Carreno on 08-12-2024 Albumin/Globulin [Mass ratio] 0.7 {ratio} Low 0.9-2.4 [facility] Automated lymphocyte count a s percentage of total leukocytesOrdered By: Samuel Carreno on 08-12-2024 Lymphocytes/100 WBC Auto (Unsp spec) 8.4 % Low 19-41 [facility] Basophil percentageOrdered B y: Samuel Carreno on 08-12-2024 Basophils/100 WBC (Bld) 0.1 % 0-1 [facility] Bilirubin, totalOrdered By: Samuel Carreno on 08-12-2024 Bilirubin [Mass/Vol] 0.40 mg/dL 0.20-1.[address] [facility] Comment on above: For patients on eltr ombopag therapy, use of Dimension Dittmer TBIL is not recommended. Blood urea nitrogen (BUN)/cr eatinine ratioOrdered By: Samuel Carreno on 08-12-2024 Urea nitrogen/Creatinine [Mass ratio] 13.4 mg/mg 10-20 [facility] C-reactive protein measureme nt by high sensitivity methodOrdered By: Samuel Carreno on 08-12-2024 C-Reactive Protein Extended Range 41.80 mg/L High 0.0-3.0 [facility] Comment on above: C-Reactive Protein ( CRP) provides useful information for thediagnosis, therapy and monitoring of inflammatory processesand associated diseases. For the evaluation of Relative Riskfor Cardiovascular Disease, a High Sensitivity CRP (HSCRP)should be ordered. C-reactive protein measurement by high sensitivity method 41.80 mg/L High 0.0-3.0 [facility] Comment on above: C-Reactive Protein ( CRP) provides useful information for thediagnosis, therapy and monitoring of inflammatory processesand associated diseases. For the evaluation of Relative Riskfor Cardiovascular Disease, a High Sensitivity CRP (HSCRP)should be ordered. CBC W/Diff, Automatedon 07-22 Absolute Lymph 1.25 X10 3/uL Normal 0.83-4.51 [facility] Comment on above: Performed By: #### L 100.0100, L500.4050, L501.6710, L101.9900 ####[facility] [address] [place], [address] Absolute Neut 12.5 X10 3/uL High 2.0-7.7 [facility] Comment on above: Performed By: #### L 100.0100, L500.4050, L501.6710, L101.9900 ####[facility] [address] [place], [address] Basophils/100 WBC (Bld) 0.1 % Normal 0-1 [facility] Comment on above: Performed By: #### L 100.0100, L500.4050, L501.6710, L101.9900 ####[facility] [address] [place], [address] Eosinophils/100 WBC (Bld) 0.9 % Normal 0-5 [facility] Comment on above: Performed By: #### L 100.0100, L500.4050, L501.6710, L101.9900 ####[facility] [address] [place], [address] Erythrocyte distribution width (RBC) [Ratio] 15.2 % High 11.6-14.6 [facility] Comment on above: Performed By: #### L 100.0100, L500.4050, L501.6710, L101.9900 ####[facility] [address] [place], [address] Hematocrit (Bld) [Volume fraction] 40.0 % Normal 40-54 [facility] Comment on above: Performed By: #### L 100.0100, L500.4050, L501.6710, L101.9900 ####[facility] [address] [place], [address] Hemoglobin (Bld) [Mass/Vol] 12.4 g/dL Low 13.0-16.5 [facility] Comment on above: Performed By: #### L 100.0100, L500.4050, L501.6710, L101.9900 ####[facility] [address] [place], [address] IG% 0.600 Normal 0.0-0.9 [facility] Comment on above: Result Comment: IG% - Immature Granulocytes (promyelocytes, myelocytes andmetamyelocytes) > 1% indicates that a LEFT SHIFT is Present. Performed By: #### L 100.0100, L500.4050, L501.6710, L101.9900 ####[facility] [address] [place], [address] Lymphocytes/100 WBC (Bld) 8.4 % Low 19-41 [facility] Comment on above: Performed By: #### L 100.0100, L500.4050, L501.6710, L101.9900 ####[facility] [address] [place], [address] MCH (RBC) [Entitic mass] 27.4 pg Normal 27.0-32.0 [facility] Comment on above: Performed By: #### L 100.0100, L500.4050, L501.6710, L101.9900 ####[facility] [address] [place], [address] MCHC (RBC) [Mass/Vol] 31.0 g/dL Low 32-36 [facility] Comment on above: Performed By: #### L 100.0100, L500.4050, L501.6710, L101.9900 ####[facility] [address] [place], [address] MCV (RBC) [Entitic vol] 88.5 fL Normal 80-94 [facility] Comment on above: Performed By: #### L 100.0100, L500.4050, L501.6710, L101.9900 ####[facility] [address] [place], [address] Monocytes/100 WBC (Bld) 6.0 % Normal 0-10 [facility] Comment on above: Performed By: #### L 100.0100, L500.4050, L501.6710, L101.9900 ####[facility] [address] [place], [address] Neutrophils/100 WBC (Bld) 84.0 % High 47-70 [facility] Comment on above: Performed By: #### L 100.0100, L500.4050, L501.6710, L101.9900 ####[facility] [address] [place], [address] Nucleated RBC (Bld) [#/Vol] 0 10*3/uL Normal 0-5 [facility] Comment on above: Performed By: #### L 100.0100, L500.4050, L501.6710, L101.9900 ####[facility] [address] [place], [address] Platelet mean volume (Bld) [Entitic vol] 10.1 fL Normal 6.2-12.0 [facility] Comment on above: Performed By: #### L 100.0100, L500.4050, L501.6710, L101.9900 ####[facility] [address] [place], [address] Platelets (Bld) [#/Vol] 351 10*3/uL Normal 150-450 [facility] Comment on above: Performed By: #### L 100.0100, L500.4050, L501.6710, L101.9900 ####[facility] [address] [place], [address] RBC (Bld) [#/Vol] 4.52 10*6/uL Low 4.6-6.2 [facility] Comment on above: Performed By: #### L 100.0100, L500.4050, L501.6710, L101.9900 ####[facility] [address] [place], [address] RDW SD 49.3 fl High 35.1-43.9 [facility] Comment on above: Performed By: #### L 100.0100, L500.4050, L501.6710, L101.9900 ####[facility] [address] [place], [address] WBC (Bld) [#/Vol] 14.8 10*3/uL High 4.4-11.0 [facility] Comment on above: Performed By: #### L 100.0100, L500.4050, L501.6710, L101.9900 ####[facility] [address] [place], [address] CRPon 08-12-2024 C-REACTIVE PROT 41.80 mg/L High 0.0-3.0 [facility] Comment on above: Result Comment: C-Re active Protein (CRP) provides useful information for thediagnosis, therapy and monitoring of inflammatory processesand associated diseases. For the evaluation of Relative Riskfor Cardiovascular Disease, a High Sensitivity CRP (HSCRP)should be ordered. Performed By: #### L 100.0100, L500.4050, L501.6710, L101.9900 ####[facility] [address] [place], [address] Carbon dioxide measurementOr dered By: Samuel Carreno on 08-12-2024 CO2 [Moles/Vol] 26.0 mmol/L 21.0-32.0 [facility] Chloride measurementOrdered By: Samuel Carreno on 08-12-2024 Chloride [Moles/Vol] 102 mmol/L 98-[address] [facility] Comprehensive Metabolic Prof ilon 08-12-2024 Albumin [Mass/Vol] 3.3 g/dL Normal 3.2-5.0 [facility] Comment on above: Performed By: #### L 100.0100, L500.4050, L501.6710, L101.9900 ####[facility] [address] [place], [address] Albumin/Globulin [Mass ratio] 0.7 {ratio} Low 0.9-2.4 [facility] Comment on above: Performed By: #### L 100.0100, L500.4050, L501.6710, L101.9900 ####[facility] [address] [place], [address] ALK P 48 U/L Normal 45-117 [facility] Comment on above: Performed By: #### L 100.0100, L500.4050, L501.6710, L101.9900 ####[facility] [address] [place], [address] ALT [Catalytic activity/Vol] 34 U/L Normal 16-61 [facility] Comment on above: Performed By: #### L 100.0100, L500.4050, L501.6710, L101.9900 ####[facility] [address] [place], [address] AST [Catalytic activity/Vol] 27 U/L Normal 15-37 [facility] Comment on above: Performed By: #### L 100.0100, L500.4050, L501.6710, L101.9900 ####[facility] [address] [place], [address] Bilirubin [Mass/Vol] 0.40 mg/dL Normal 0.20-1.[address] [facility] Comment on above: Result Comment: For patients on eltrombopag therapy, use of Dimension Dittmer TBIL is not recommended. Performed By: #### L 100.0100, L500.4050, L501.6710, L101.9900 ####[facility] [address] [place], [address] BUN/CRE 13.4 RATIO Normal 10-20 [facility] Comment on above: Performed By: #### L 100.0100, L500.4050, L501.6710, L101.9900 ####[facility] [address] [place], [address] CA,Total 8.5 mg/dL Normal 8.5-10.1 [facility] Comment on above: Performed By: #### L 100.0100, L500.4050, L501.6710, L101.9900 ####[facility] [address] [place], [address] Chloride [Moles/Vol] 102 mmol/L Normal 98-[address] [facility] Comment on above: Performed By: #### L 100.0100, L500.4050, L501.6710, L101.9900 ####[facility] [address] [place], [address] CO2 [Moles/Vol] 26.0 mmol/L Normal 21.0-32.0 [facility] Comment on above: Performed By: #### L 100.0100, L500.4050, L501.6710, L101.9900 ####[facility] [address] [place], [address] Creatinine [Mass/Vol] 0.97 mg/dL Normal 0.70-1.30 [facility] Comment on above: Result Comment: The validity of the calculated GFR GFRAA in patients over70 years has not been determined. Clinical correlation isessential. Performed By: #### L 100.0100, L500.4050, L501.6710, L101.9900 ####[facility] [address] [place], [address] EST GFR - AA 98 mL/min Normal >60 [facility] Comment on above: Result Comment: Afri can Kosovan GFR Calc Performed By: #### L 100.0100, L500.4050, L501.6710, L101.9900 ####[facility] [address] [place], [address] GAP 9 Normal 5-15 [facility] Comment on above: Performed By: #### L 100.0100, L500.4050, L501.6710, L101.9900 ####[facility] [address] [place], [address] GFR/1.73 sq M.predicted among non-blacks MDRD (S/P/Bld) [Vol rate/Area] 81 mL/min/{1.73_m2} Normal >60 [facility] Comment on above: Result Comment: Non- GFR Calc Performed By: #### L 100.0100, L500.4050, L501.6710, L101.9900 ####[facility] [address] [place], [address] Globulin (S) [Mass/Vol] 4.5 g/dL High 2.2-4.2 [facility] Comment on above: Performed By: #### L 100.0100, L500.4050, L501.6710, L101.9900 ####[facility] [address] [place], [address] Glucose [Mass/Vol] 130 mg/dL High 74-106 [facility] Comment on above: Result Comment: Fast ing Glucose result greater than or equal to 126 mg/dLsuggests DIABETES MELLITUS per A.D.A. criteria. Performed By: #### L 100.0100, L500.4050, L501.6710, L101.9900 ####[facility] [address] [place], [address] Potassium [Moles/Vol] 3.4 mmol/L Low 3.5-5.1 [facility] Comment on above: Performed By: #### L 100.0100, L500.4050, L501.6710, L101.9900 ####[facility] [address] [place], [address] Sodium [Moles/Vol] 137 mmol/L Normal 136-145 [facility] Comment on above: Performed By: #### L 100.0100, L500.4050, L501.6710, L101.9900 ####[facility] [address] [place], [address] T PROT 7.8 g/dL Normal 6.4-8.2 [facility] Comment on above: Performed By: #### L 100.0100, L500.4050, L501.6710, L101.9900 ####[facility] [address] [place], [address] Urea nitrogen [Mass/Vol] 13 mg/dL Normal 7-18 [facility] Comment on above: Performed By: #### L 100.0100, L500.4050, L501.6710, L101.9900 ####[facility] [address] [place], [address] Eosinophil percentageOrdered By: Samuel Carreno on 08-12-2024 Eosinophils/100 WBC (Bld) 0.9 % 0-5 [facility] Erythrocyte Sed Rateon 08-12 SED RATE 40 mm/hr High 0-20 [facility] Comment on above: Performed By: #### L 100.0100, L500.4050, L501.6710, L101.9900 ####[facility] [address] [place], [address] Erythrocyte distribution wid th (RBC) [Ratio]Ordered By: Samuel Carreno on 08-12-2024 Erythrocyte distribution width (RBC) [Entitic vol] 49.3 fL High 35.1-43.9 [facility] Erythrocyte distribution wid th ratioOrdered By: Samuel Carreno on 08-12-2024 Erythrocyte distribution width (RBC) [Ratio] 15.2 % High 11.6-14.6 [facility] Erythrocyte distribution wid th standard deviationOrdered By: Samuel Carreno on 08-12-2024 Erythrocyte distribution width (RBC) [Ratio] 49.3 fl High 35.1-43.9 [facility] Erythrocyte sedimentation ra teOrdered By: Samuel Carreno on 08-12-2024 ESR (Bld) [Velocity] 40 mm/h High 0-[address] [facility] Estimated glomerular filtrat ion rate (GFR) AmericanOrdered By: Samuel Carreno on 08-12-2024 Estimated GFR (MDRD) Amer 98 mL/min >60 [facility] Comment on above: GFR Calc Glomerular filtration rate ( GFR) estimationOrdered By: Samuel Carreno on 08-12-2024 Estimated GFR (MDRD) Non-Af Amer 81 mL/min >60 [facility] Comment on above: Non- GFR Calc GFR/1.73 sq M.predicted among non-blacks MDRD (S/P/Bld) [Vol rate/Area] 81 mL/min/{1.73_m2} >60 [facility] Comment on above: Non- GFR Calc Glucose measurementOrdered B y: Samuel Carreno on 08-12-2024 Glucose [Mass/Vol] 130 mg/dL High 74-106 [facility] Comment on above: Fasting Glucose resu lt greater than or equal to 126 mg/dL suggests DIABETES MELLITUS per A.D.A. criteria. Hematocrit Auto (Bld) [Volum e fraction]Ordered By: Samuel Carreno on 08-12-2024 Hematocrit (Bld) [Volume fraction] 40.0 % 40-54 [facility] Hemoglobin measurementOrdere d By: Samuel Carreno on 08-12-2024 Hemoglobin (Bld) [Mass/Vol] 12.4 g/dL Low 13.0-16.5 [facility] Immature granulocytes/100 WB C Auto (Bld)Ordered By: Samuel Carreno on 08-12-2024 Immature granulocytes/100 WBC (Bld) 0.600 % 0.0-0.9 [facility] Comment on above: IG% - Immature Granu locytes (promyelocytes, myelocytes and metamyelocytes) > 1% indicates that a LEFT SHIFT is Present. Laboratory - Chemistry and C hemistry - challengeOrdered By: Samuel Carreno on 08-12-2024 AST [Catalytic activity/Vol] 27 U/L 15-37 [facility] Lymphocytes Auto (Unsp spec) [#/Vol]Ordered By: Samuel Carreno on 08-12-2024 Lymphocytes (Bld) [#/Vol] 1.25 10*3/uL 0.83-4.51 [facility] Lymphocytes/100 WBC Auto (Un sp spec)Ordered By: Samuel Carreno on 08-12-2024 Lymphocytes/100 WBC (Bld) 8.4 % Low 19-41 [facility] MCV (mean corpuscular volume ) determinationOrdered By: Samuel Carreno on 08-12-2024 MCV (RBC) [Entitic vol] 88.5 fL 80-94 [facility] Mean corpuscular hemoglobin (MCH) determinationOrdered By: Samuel Carreno on 08-12-2024 MCH (RBC) [Entitic mass] 27.4 pg 27.0-32.0 [facility] Mean corpuscular hemoglobin concentration (MCHC) determinationOrdered By: Samuel Carreno on 08-12-2024 MCHC (RBC) [Mass/Vol] 31.0 g/dL Low 32-36 [facility] Mean platelet volume determi nationOrdered By: Samuel Carreno on 08-12-2024 Platelet mean volume (Bld) [Entitic vol] 10.1 fL 6.2-12.0 [facility] Monocyte percentageOrdered B y: Samuel Carreno on 08-12-2024 Monocytes/100 WBC (Bld) 6.0 % 0-10 [facility] Neutrophil percentageOrdered By: Samuel Carreno on 08-12-2024 Neutrophils/100 WBC (Bld) 84.0 % High 47-70 [facility] Nucleated red blood cell per centageOrdered By: Samuel Carreno on 08-12-2024 Nucleated RBC/100 WBC (Bld) [Ratio] 0 % 0-5 [facility] Platelet countOrdered By: Indira Carreno on 08-12-2024 Platelets (Bld) [#/Vol] 351 10*3/uL 150-450 [facility] Potassium measurementOrdered By: Samuel Carreno on 08-12-2024 Potassium [Moles/Vol] 3.4 mmol/L Low 3.5-5.1 [facility] RBC Auto (Bld) [#/Vol]Ordere d By: Samuel Carreno on 08-12-2024 RBC (Bld) [#/Vol] 4.52 10*6/uL Low 4.6-6.2 [facility] Serum anion gap measurementO rdered By: Samuel Carreno on 08-12-2024 Anion gap [Moles/Vol] 9 mmol/L 5-15 [facility] Serum globulin measurementOr dered By: Samuel Carreno on 08-12-2024 Globulin (S) [Mass/Vol] 4.5 g/dL High 2.2-4.2 [facility] Serum or plasma alanine pitt otransferase (ALT) measurementOrdered By: Samuel Carreno on 08-12-2024 ALT [Catalytic activity/Vol] 34 U/L 16-61 [facility] [facility] Serum or plasma albumin tremayne urement (mass/volume)Ordered By: Samuel Carreno on 08-12-2024 Albumin [Mass/Vol] 3.3 g/dL 3.2-5.0 [facility] Serum or plasma alkaline david sphatase measurementOrdered By: Samuel Carreno on 08-12-2024 ALP [Catalytic activity/Vol] 48 U/L 45-117 [facility] Serum or plasma calcium tremayne urement (mass/volume)Ordered By: Samuel Carreno on 08-12-2024 Calcium [Mass/Vol] 8.5 mg/dL 8.5-10.1 [facility] Serum or plasma creatinine m easurement (mass/volume)Ordered By: Samuel Carreno on 08-12-2024 Creatinine [Mass/Vol] 0.97 mg/dL 0.70-1.30 [facility] Comment on above: The validity of the calculated GFR & GFRAA in patients over 70 years has not been determined. Clinical correlation is essential. Serum or plasma urea nitroge n measurement (mass/volume)Ordered By: Samuel Carreno on 08-12-2024 Urea nitrogen [Mass/Vol] 13 mg/dL 7-18 [facility] Sodium levelOrdered By: Chris Carreno on 08-12-2024 Sodium [Moles/Vol] 137 mmol/L 136-145 [facility] Total proteinOrdered By: Michael Carreno on 08-12-2024 Protein [Mass/Vol] 7.8 g/dL 6.4-8.2 [facility] White blood cell (WBC) count Ordered By: Samuel Carreno on 08-12-2024 WBC (Bld) [#/Vol] 14.8 10*3/uL High 4.4-11.0 [facility] Absolute lymphocyte countOrd ered By: Zechariah Siddiqui on 10-24-2023 Lymphocytes Auto (Unsp spec) [#/Vol] 1.65 10*3/uL 0.83-4.51 [facility] Automated lymphocyte count a s percentage of total leukocytesOrdered By: Zechariah Siddiqui on 10-24-2023 Lymphocytes/100 WBC Auto (Unsp spec) 16.9 % 19-41 [facility] Basophil percentageOrdered B y: Zechariah Siddiqui on 10-24-2023 Basophils/100 WBC (Bld) 0.3 % 0-1 [facility] Bilirubin [Mass/Vol] 0.50 mg/dL 0.20-1.[address] [facility] Comment on above: For patients on eltr ombopag therapy, use of Dimension Dittmer TBIL is not recommended. Chloride [Moles/Vol] 107 mmol/L 98-[address] [facility] Eosinophils/100 WBC (Bld) 2.7 % 0-5 [facility] Glucose [Mass/Vol] 84 mg/dL 74-106 [facility] Hemoglobin (Bld) [Mass/Vol] 13.1 g/dL 13.0-16.5 [facility] Monocytes/100 WBC (Bld) 8.9 % 0-10 [facility] Neutrophils (Bld) [#/Vol] 6.9 10*3/uL 2.0-7.7 [facility] Neutrophils/100 WBC (Bld) 70.8 % 47-70 [facility] Potassium [Moles/Vol] 4.3 mmol/L 3.5-5.1 [facility] Protein [Mass/Vol] 7.6 g/dL 6.4-8.2 [facility] Sodium [Moles/Vol] 138 mmol/L 136-145 [facility] WBC (Bld) [#/Vol] 9.8 10*3/uL 4.4-11.0 [facility] Determination of erythrocyte mean corpuscular volume (MCV)Ordered By: Zechariah Siddiqui on 10-24-2023 MCV (RBC) [Entitic vol] 96.2 fL 80-94 [facility] Erythrocyte distribution wid th ratioOrdered By: Zechariah Siddiqui on 10-24-2023 Erythrocyte distribution width (RBC) [Ratio] 14.6 % 11.6-14.6 [facility] Erythrocyte distribution wid th standard deviationOrdered By: Zechariah Siddiqui on 10-24-2023 Erythrocyte distribution width (RBC) [Entitic vol] 51.8 fL 35.1-43.9 [facility] Erythrocyte sedimentation ra teOrdered By: Zechariah Siddiqui on 10-24-2023 ESR (Bld) [Velocity] 35 mm/h 0-[address] [facility] Hematocrit Auto (Bld) [Volum e fraction]Ordered By: Zechariah Siddiqui on 10-24-2023 Hematocrit (Bld) [Volume fraction] 43.0 % 40-54 [facility] Immature granulocytes/100 WB C Auto (Bld)Ordered By: Zechariah Siddiqui on 10-24-2023 Immature granulocytes/100 WBC (Bld) 0.400 % 0.0-0.9 [facility] Comment on above: IG% - Immature Granu locytes (promyelocytes, myelocytes and metamyelocytes) > 1% indicates that a LEFT SHIFT is Present. Laboratory - Chemistry and C hemistry - challengeOrdered By: Zechariah Siddiqui on 10-24-2023 Albumin/Globulin [Mass ratio] 0.9 {ratio} 0.9-2.4 [facility] ALP [Catalytic activity/Vol] 49 U/L 45-117 [facility] ALT [Catalytic activity/Vol] 41 U/L 16-61 [facility] CO2 [Moles/Vol] 26.0 mmol/L 21.0-32.0 [facility] Globulin (S) [Mass/Vol] 4.0 g/dL 2.2-4.2 [facility] Magnesium [Mass/Vol] 1.9 mg/dL 1.6-2.[address] [facility] Urea nitrogen/Creatinine [Mass ratio] 17.7 mg/mg 10-20 [facility] Laboratory - Hematology and Cell countsOrdered By: Zechariah Siddiqui on 10-24-2023 MCH (RBC) [Entitic mass] 29.3 pg 27.0-32.0 [facility] MCHC (RBC) [Mass/Vol] 30.5 g/dL 32-36 [facility] Nucleated RBC/100 WBC (Bld) [Ratio] 0 % 0-5 [facility] Platelet mean volume (Bld) [Entitic vol] 11.2 fL 6.2-12.0 [facility] Platelets (Bld) [#/Vol] 309 10*3/uL 150-450 [facility] No Panel InformationOrdered By: Zechariah Siddiqui on 10-24-2023 Anti-Nuclear Antibody Screen Negative Negative [facility] Comment on above: Performed at: [address] [id number] Director: Samuel Page PhD, Phone: [phone] C-Reactive Protein Extended Range 15.00 mg/L 0.0-3.0 [facility] Comment on above: C-Reactive Protein ( CRP) provides useful information for thediagnosis, therapy and monitoring of inflammatory processesand associated diseases. For the evaluation of Relative Riskfor Cardiovascular Disease, a High Sensitivity CRP (HSCRP)should be ordered. Estimated GFR (MDRD) Amer 74 mL/min >60 [facility] Comment on above: GFR Calc Estimated GFR (MDRD) Non-Af Amer 61 mL/min >60 [facility] Comment on above: Non- GFR Calc Prostate Specific Antigen Screen 0.81 ng/mL 0.00-4.00 [facility] Comment on above: This test was perfor med using the TPSA assay method for [employer] chemistry system. Values obtained with differentassay methods cannot be used interchangably.When changing PSA assays in the course of monitoring apatient, additional sequential testing should be carriedout to confirm baseline values. RBC Auto (Bld) [#/Vol]Ordere d By: Zechariah Siddiqui on 10-24-2023 RBC (Bld) [#/Vol] 4.47 10*6/uL 4.6-6.2 [facility] Serum or plasma calcium tremayne urement (mass/volume)Ordered By: Zechariah Siddiqui on 10-24-2023 Calcium [Mass/Vol] 9.0 mg/dL 8.5-10.1 [facility] Serum or plasma creatinine m easurement (mass/volume)Ordered By: Zechariah Siddiqui on 10-24-2023 Creatinine [Mass/Vol] 1.24 mg/dL 0.70-1.30 [facility] Comment on above: The validity of the calculated GFR & GFRAA in patients over 70 years has not been determined. Clinical correlation is essential. Serum or plasma thyroid stim ulating hormone (TSH) measurement (units/volume)Ordered By: Zechariah Siddiqui on 10-24-2023 TSH Qn 3.60 uIU/mL 0.358-3.74 [facility] Serum or plasma urea nitroge n measurement (mass/volume)Ordered By: Zechariah Siddiqui on 10-24-2023 Urea nitrogen [Mass/Vol] 22 mg/dL 7-18 [facility] Thin prep Papanicolaou smear with manual screeningOrdered By: Zechariah Siddiqui on 10-24-2023 Thin prep Papanicolaou smear with manual screening 3.6 g/dL 3.2-5.0 [facility] Thin prep Papanicolaou smear with manual screening 32 U/L 15-37 [facility] Thin prep Papanicolaou smear with manual screening 5 5-15 [facility] Basophil percentageOrdered B y: Mariangel Rider on 05-01-2023 Chloride [Moles/Vol] 105 mmol/L 98-[address] [facility] Glucose [Mass/Vol] 100 mg/dL 74-106 [facility] Comment on above: Fasting Glucose resu lt from 100 to 125 mg/dL suggests IMPAIRED HOMEOSTASIS per A.D.A. criteria. Potassium [Moles/Vol] 3.9 mmol/L 3.5-5.1 [facility] Sodium [Moles/Vol] 137 mmol/L 136-145 [facility] Laboratory - Chemistry and C hemistry - challengeOrdered By: Mariangel Rider on 05-01-2023 CO2 [Moles/Vol] 27.0 mmol/L 21.0-32.0 [facility] Urea nitrogen/Creatinine [Mass ratio] 16.4 mg/mg 10- [facility] No Panel InformationOrdered By: Mariangel Rider on 05-01-2023 Estimated GFR (MDRD) Amer 80 mL/min >60 [facility] Comment on above: GFR Calc Estimated GFR (MDRD) Non-Af Amer 66 mL/min >60 [facility] Comment on above: Non- GFR Calc Serum or plasma calcium tremayne urement (mass/volume)Ordered By: Mariangel Rider on 05-01-2023 Calcium [Mass/Vol] 8.8 mg/dL 8.5-10.1 [facility] Serum or plasma creatinine m easurement (mass/volume)Ordered By: Mariangel Rider on 05-01-2023 Creatinine [Mass/Vol] 1.16 mg/dL 0.70-1.30 [facility] Comment on above: The validity of the calculated GFR & GFRAA in patients over 70 years has not been determined. Clinical correlation is essential. Serum or plasma urea nitroge n measurement (mass/volume)Ordered By: Mariangel Rider on 05-01-2023 Urea nitrogen [Mass/Vol] 19 mg/dL 7-18 [facility] Thin prep Papanicolaou smear with manual screeningOrdered By: Mariangel Rider on 05-01-2023 Thin prep Papanicolaou smear with manual screening 5 5-15 [facility] Basophil percentageOrdered B y: Mariangel Rider on 03-20-2023 Bilirubin [Mass/Vol] 0.50 mg/dL 0.20-1.[address] [facility] Comment on above: For patients on eltr ombopag therapy, use of Dimension Dittmer TBIL is not recommended. Chloride [Moles/Vol] 109 mmol/L 98-[address] [facility] Glucose [Mass/Vol] 88 mg/dL 74-106 [facility] Potassium [Moles/Vol] 4.0 mmol/L 3.5-5.1 [facility] Protein [Mass/Vol] 7.6 g/dL 6.4-8.2 [facility] Sodium [Moles/Vol] 138 mmol/L 136-145 [facility] Laboratory - Chemistry and C hemistry - challengeOrdered By: Mariangel Rider on 03-20-2023 ALP [Catalytic activity/Vol] 61 U/L 45-117 [facility] ALT [Catalytic activity/Vol] 44 U/L 16-61 [facility] CO2 [Moles/Vol] 23.0 mmol/L 21.0-32.0 [facility] Globulin (S) [Mass/Vol] 4.3 g/dL 2.2-4.2 [facility] Urea nitrogen/Creatinine [Mass ratio] 17.3 mg/mg 10-20 [facility] No Panel InformationOrdered By: Mariangel Rider on 03-20-2023 Estimated GFR (MDRD) Amer 85 mL/min >60 [facility] Comment on above: GFR Calc Estimated GFR (MDRD) Non-Af Amer 70 mL/min >60 [facility] Comment on above: Non- GFR Calc Serum or plasma albumin tremayne urement (mass/volume)Ordered By: Mariangel Rider on 03-20-2023 Albumin [Mass/Vol] 3.3 g/dL 3.2-5.0 [facility] Serum or plasma albumin/glob ulin mass ratioOrdered By: Mariangel Rider on 03-20-2023 Albumin/Globulin [Mass ratio] 0.8 {ratio} 0.9-2.4 [facility] Serum or plasma calcium tremayne urement (mass/volume)Ordered By: Mariangel Rider on 03-20-2023 Calcium [Mass/Vol] 8.7 mg/dL 8.5-10.1 [facility] Serum or plasma creatinine m easurement (mass/volume)Ordered By: Mariangel Rider on 03-20-2023 Creatinine [Mass/Vol] 1.10 mg/dL 0.70-1.30 [facility] Comment on above: The validity of the calculated GFR & GFRAA in patients over 70 years has not been determined. Clinical correlation is essential. Serum or plasma urea nitroge n measurement (mass/volume)Ordered By: Mariangel Rider on 03-20-2023 Urea nitrogen [Mass/Vol] 19 mg/dL 7-18 [facility] Thin prep Papanicolaou smear with manual screeningOrdered By: Mariangel Rider on 03-20-2023 Thin prep Papanicolaou smear with manual screening 36 U/L 15-37 [facility] Thin prep Papanicolaou smear with manual screening 6 5-15 [facility] Basophil percentageOrdered B y: Zechariah Siddiqui on 01-28-2023 Bilirubin [Mass/Vol] 0.40 mg/dL 0.20-1.[address] [facility] Comment on above: For patients on eltr ombopag therapy, use of Dimension Dittmer TBIL is not recommended. Chloride [Moles/Vol] 107 mmol/L 98-[address] [facility] Glucose [Mass/Vol] 91 mg/dL 74-106 [facility] Potassium [Moles/Vol] 4.4 mmol/L 3.5-5.1 [facility] Protein [Mass/Vol] 7.0 g/dL 6.4-8.2 [facility] Sodium [Moles/Vol] 138 mmol/L 136-145 [facility] WBC (Bld) [#/Vol] 11.3 10*3/uL 4.4-11.0 [facility] Blood erythrocytes count (nu mber/volume)Ordered By: Zechariah Siddiqui on 01-28-2023 RBC (Bld) [#/Vol] 4.59 10*6/uL 4.6-6.2 [facility] Blood hemoglobin measurement (mass/volume)Ordered By: Zechariah Siddiqui on 01-28-2023 Hemoglobin (Bld) [Mass/Vol] 13.9 g/dL 13.0-16.5 [facility] Blood platelet mean volumeOr dered By: Zechariah Siddiqui on 01-28-2023 Platelet mean volume (Bld) [Entitic vol] 11.1 fL 6.2-12.0 [facility] Determination of erythrocyte mean corpuscular volume (MCV)Ordered By: Zechariah Siddiqui on 01-28-2023 MCV (RBC) [Entitic vol] 96.9 fL 80-94 [facility] Hematocrit Auto (Bld) [Volum e fraction]Ordered By: Zechariah Siddiqui on 01-28-2023 Hematocrit (Bld) [Volume fraction] 44.5 % 40-54 [facility] Laboratory - Chemistry and C hemistry - challengeOrdered By: Zechariah Siddiqui on 01-28-2023 ALP [Catalytic activity/Vol] 54 U/L 45-117 [facility] ALT [Catalytic activity/Vol] 188 U/L 16-61 [facility] CO2 [Moles/Vol] 25.0 mmol/L 21.0-32.0 [facility] Globulin (S) [Mass/Vol] 3.6 g/dL 2.2-4.2 [facility] Magnesium [Mass/Vol] 2.0 mg/dL 1.6-2.[address] [facility] Urea nitrogen/Creatinine [Mass ratio] 17.7 mg/mg 10-20 [facility] Laboratory - Hematology and Cell countsOrdered By: Zechariah Siddiqui on 01-28-2023 Erythrocyte distribution width (RBC) [Entitic vol] 55.3 fL 35.1-43.9 [facility] Erythrocyte distribution width (RBC) [Ratio] 15.4 % 11.6-14.6 [facility] MCH (RBC) [Entitic mass] 30.3 pg 27.0-32.0 [facility] MCHC Auto (RBC) [Mass/Vol]Or dered By: Zechariah Siddiqui on 01-28-2023 MCHC (RBC) [Mass/Vol] 31.2 g/dL 32-36 [facility] No Panel InformationOrdered By: Zechariah Siddiqui on 01-28-2023 Estimated GFR (MDRD) Amer 83 mL/min >60 [facility] Comment on above: GFR Calc Estimated GFR (MDRD) Non-Af Amer 68 mL/min >60 [facility] Comment on above: Non- GFR Calc Thyroid Stimulating Hormone (TSH) 1.87 uIU/mL 0.358-3.74 [facility] Platelets bldOrdered By: Carolyn Siddiqui on 01-28-2023 Platelets (Bld) [#/Vol] 237 10*3/uL 150-450 [facility] Serum or plasma albumin tremayne urement (mass/volume)Ordered By: Zechariah Siddiqui on 01-28-2023 Albumin [Mass/Vol] 3.4 g/dL 3.2-5.0 [facility] Serum or plasma albumin/glob ulin mass ratioOrdered By: Zechariah Siddiqui on 01-28-2023 Albumin/Globulin [Mass ratio] 0.9 {ratio} 0.9-2.4 [facility] Serum or plasma calcium tremayne urement (mass/volume)Ordered By: Zechariah Siddiqui on 01-28-2023 Calcium [Mass/Vol] 8.4 mg/dL 8.5-10.1 [facility] Serum or plasma creatinine m easurement (mass/volume)Ordered By: Zechariah Siddiqui on 01-28-2023 Creatinine [Mass/Vol] 1.13 mg/dL 0.70-1.30 [facility] Comment on above: The validity of the calculated GFR & GFRAA in patients over 70 years has not been determined. Clinical correlation is essential. Serum or plasma urea nitroge n measurement (mass/volume)Ordered By: Zechariah Siddiqui on 01-28-2023 Urea nitrogen [Mass/Vol] 20 mg/dL 7-18 [facility] Thin prep Papanicolaou smear with manual screeningOrdered By: Zechariah Siddiqui on 01-28-2023 Thin prep Papanicolaou smear with manual screening 93 U/L 15-37 [facility] Thin prep Papanicolaou smear with manual screening 6 5-15 [facility] CNOVon 08-02-2022 CNOV Office Visit (GENSWS ) CONRAD OCONNELL ([id number]) 1955 [place] Date Time Provider Department 08/02/22 3:45 PM MELYSSA MAGDALENO During your visit today, we recorded the following information about you: Temperature Pulse Blood pressure Weight 97.9 degrees 91/minute 122/72 113.4 kg Height 1.727 m Melyssa Magdaleno MD 08/03/2022 3:36 PM Signed Conrad Oconnell 1955 REFERRING PHYSICIAN: Melyssa Magdaleno MD CHIEF COMPLAINT: Follow Up (colonoscopy) HPI: The patient is a 67 year old male is s/p colonoscopy on 07/26/2022. He was noted to have an area of erythema of sigmoid colon. Pathology reveals - FINAL DIAGNOSIS A. Colon, cecal polyp, biopsy: -Tubular adenoma. B. Colon, sigmoid polyps (x4), biopsy: -Tubular adenoma. -Fragments of inflammatory type polyp. C. Colon, sigmoid, biopsy: -Colonic mucosa with no diagnostic abnormality. D. Colon, sigmoid mass, biopsy: -Fragments of colonic mucosa with granulation tissue and hyperplastic change, see comment. 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 He denies abdominal pain, he denies diarrhea. PAST MEDICAL HISTORY Diagnosis Date Anal or rectal pain Cellulitis and abscess of leg, except foot Emphysema/COPD (HCC) Hypertension IBD (inflammatory bowel disease) Sleep apnea PAST SURGICAL HISTORY Procedure Laterality Date COLONOSCOPY FLX DX W/COLLJ SPEC WHEN PFRMD 05/05/2015 Colonoscopy COLONOSCOPY FLX DX W/COLLJ SPEC WHEN PFRMD 06/08/2021 repeat in 1 year COLONOSCOPY SCREENING 07/26/2022 SINUS SURGERY HX 10/2020 SKIN BIOPSY HX Current Outpatient Medications Medication Sig TRELEGY ELLIPTA 100-62.5-25 mcg inhalation powder Inhale 1 Puff as instructed once daily. bisoprolol-hydroCHLOR Othiazide (ZIAC) 10-6.25 mg per tablet Take 1 tablet by mouth once daily. Cholecalciferol, Vitamin D3, 50 mcg (2,000 unit) cap Take 50 capsules by mouth once daily. gabapentin (NEURONTIN) 600 mg tablet Take 600 mg by mouth once daily. PNV/iron/folic acid ( [id number] ORAL) Take 1 tablet by mouth once daily. CPAP daily at bedtime. sulfaSALAzine (AZULFIDINE) 500 mg tablet Take 1 tablet by mouth four times daily. Ascorbic Acid 100 mg tablet Take 2,000 mg by mouth once daily. MEDICATION, NON-DATABASE Take 1 tablet by mouth once daily. Pt states takes a BP med daily-unsure name FOLIC ACID/MULTIVIT-MIN/LUT EIN (CENTRUM SILVER ORAL) Take by mouth. aspirin 81 mg chewable tablet Take 81 mg by mouth once daily. ALLERGIES: Patient has no known allergies. REVIEW OF SYSTEMS: Denies fevers PHYSICAL EXAMINATION: General: The patient is 67 year old male, well nourished, well hydrated in no acute distress. The patient is oriented to time, place, and person. VITALS: Blood pressure 122/72, pulse 91, temperature 36.6 ?C (97.9 ?F), height 172.7 cm (5' 8), weight 113.4 kg (250 lb), SpO2 98 %. Body mass index is 38.01 kg/m?. Head: Normal cephalic, atraumatic Eyes: pupils are equally round, sclera are clear/anicteric Neck is supple with no tracheal deviation Respiratory: Normal respiratory excursion and pattern. Abdominal exam: benign Extremities: no clubbing, cyanosis or edema. Neuro: non focal Psych: normal mood Assessment IMPRESSION: segmental colitis in sigmoid colon only PLAN: I have discussed the above with the patient. Patient to follow up with Dr. Emery for his colitis. The patient acknowledges the above I have answered all questions to the patient?s satisfaction and the patient has no further questions. I have confirmed and edited as necessary, the PFSH and ROS obtained by others. . Diagnoses: (K52.9) Idiopathic colitis (primary encounter diagnosis) Return to Clinic: The patient will require follow up surveillance colonoscopy in 5 years. HM updated and recall letter generated. Medical Decision Making: Problems: Low: Stable chronic illness Medical Decision Making Level: 2 - Straightforward Melyssa Magdaleno MD Referring Provider: MELYSSA MAGDALENO [[id number]] Allergies As of Date: 08/02/2022 (No Known Allergies) Date Reviewed: 08/02/2022 Reviewed by: Sandra Mera LPN - Fully Assessed Reason for Visit: Follow Up [171] Cmt: colonoscopy Primary Visit Diagnosis:Idiopathic colitis [K52.9] Prescriptions as of 08/03/2022 - TRELEGY ELLIPTA 100-62.5-25 mcg inhalation powder Inhale 1 Puff as instructed once daily. - bisoprolol-hydroCHLOR Othiazide (ZIAC) 10-6.25 mg per tablet Take 1 tablet by mouth once daily. - Cholecalciferol, Vitamin D3, 50 mcg (2,000 unit) cap Take 50 capsules by mouth once daily. - gabapentin (NEURONTIN) 600 mg tablet Take 600 mg by mouth once daily. - PNV/iron/folic acid ( [id number] ORAL) Take 1 tablet by mouth once daily. - CPAP d (more content not included)... Normal [facility] SURGICAL PATHOLOGYon 023 Case Report Surgical Pathology Report Case: [id number] Authorizing Provider: Melyssa Magdaleno MD Collected: 07/26/2022 09:07 AM Ordering Location: Ambulatory Surgery Received: 07/26/2022 02:01 PM Pathologist: Geovanni Liz MD Specimens: A) - CECUM POLYP B) - SIGMOID COLON POLYP, Sigmoid colon Polyp'S x4 C) - SIGMOID COLON BIOPSY, bx of mucosa of the sigmoid colon D) - SIGMOID COLON BIOPSY, bx of mass of the sigmoid colon [facility] Diagnosis Comment D. The changes seen in the biopsy are non-specific but may represent an inflammatory type polyp in the appropriate setting. No neoplasm is seen. The endoscopic impression of moderately erythematous mucosa, inflammatory changes, and a questionable mass lesion is noted. The specimen may not be treasury representative of the clinically suspected lesion; clinical and endoscopic correlation is recommended. [facility] FINAL DIAGNOSIS A. Colon, cecal polyp, biopsy: -Tubular adenoma. B. Colon, sigmoid polyps (x4), biopsy: -Tubular adenoma. -Fragments of inflammatory type polyp. C. Colon, sigmoid, biopsy: -Colonic mucosa with no diagnostic abnormality. D. Colon, sigmoid mass, biopsy: -Fragments of colonic mucosa with granulation tissue and hyperplastic change, see comment. [facility] Gross Description A. CECUM POLYP Received in formalin is one segment of valadez polypoid tissue measuring 0.8 x 0.6 x 0.3 cm. No stalk is noted. The line of resection is noted. The specimen is bisected and totally submitted in formalin in one cassette. B. SIGMOID COLON POLYP Received in formalin are multiple segments of valadez-red polypoid tissue ranging in size from 0.7 x 0.5 x 0.4 cm to 0.2 x 0.2 x 0.2 cm. No stalks are noted. The lines of resection are noted. The larger specimens are bisected. The remaining specimens are not sectioned. Totally submitted in formalin and one cassette. C. SIGMOID COLON BIOPSY Received in formalin is one piece of valadez, soft tissue measuring 0.3 x 0.2 x 0.2 cm. Totally submitted in one cassette. D. SIGMOID COLON BIOPSY Received in formalin are multiple pieces of valadez, soft tissue aggregating to 1.1 x 0.2 x 0.2 cm. Totally submitted in one cassette. Gross examination performed at [facility] [place] [address] TTN 07/26/2022 11:20 PM [facility] Performing Lab Diagnostic interpretation performed at [facility] [place] [address] CLIA# [id number] Body Work Auto Trimmer: Louie Lewis M.D. [facility] COLONOSCOPY SCREENINGon [facility] Colonoscopyon 07-26-2022 Colonoscopy [facility] Gastrointestinal Endoscopy Patient Name: Conrad Oconnell Procedure Date: 07/26/2022 7:50 AM Date of : 1955 Admit Type: Outpatient Age: 67 Gender: Male Note Status: Finalized Procedure: Colonoscopy Indications: High risk colon cancer surveillance: Personal history of colonic polyps Providers: Melyssa Magdaleno MD Patient Profile: Refer to note in patient chart for documentation of history and physical. Last Colonoscopy: 2019. Referring Physician: Melyssa Magdaleno MD Medicines: Midazolam 9 mg IV, Fentanyl 175 micrograms IV, Diphenhydramine 50 mg IV Complications: No immediate complications. Requesting Provider: Procedure: Pre-Anesthesia Assessment: - Prior to the procedure, a History and Physical was performed, and patient medications and allergies were reviewed. The patient is competent. The risks and benefits of the procedure and the sedation options and risks were discussed with the patient. All questions were answered and informed consent was obtained. Patient identification and proposed procedure were verified by the physician in the pre-procedure area. Mental Status Examination: alert and oriented. Airway Examination: normal oropharyngeal airway and neck mobility. Respiratory Examination: clear to auscultation. CV Examination: normal. Prophylactic Antibiotics: The patient does not require prophylactic antibiotics. Prior Anticoagulants: The patient has taken no anticoagulant or antiplatelet agents. ASA Grade Assessment: II - A patient with mild systemic disease. After reviewing the risks and benefits, the patient was deemed in satisfactory condition to undergo the procedure. The anesthesia plan was to use moderate sedation / analgesia (conscious sedation). Immediately prior to administration of medications, the patient was re-assessed for adequacy to receive sedatives. The heart rate, respiratory rate, oxygen saturations, blood pressure, adequacy of pulmonary ventilation, and response to care were monitored throughout the procedure. The physical status of the patient was re-assessed after the procedure. After I obtained informed consent, the scope was passed under direct vision. Throughout the procedure, the patient's blood pressure, pulse, and oxygen saturations were monitored continuously.The colonoscopy was performed without difficulty. The patient tolerated the procedure well. The appendiceal orifice and the rectum were photographed. The Colonoscope was introduced through the anus and advanced to the cecum, identified by the appendiceal orifice, ileocecal valve and palpation. The colonoscopy was performed without difficulty. The patient tolerated the procedure well. The quality of the bowel preparation was adequate to identify polyps 6 mm and larger in size and suboptimal. There was still retained fecal material which required lavage and aspiration to visualize the brown adequately. This was done, but took some time, however, the brown were visualized adequately. Moderate Sedation: The administration of moderate sedation was initiated at 08:58 AM. Moderate (conscious) sedation was personally administered by the endoscopist. The following parameters were monitored: oxygen saturation, heart rate, blood pressure, respiratory rate, EKG, adequacy of pulmonary ventilation, and response to care. Total physician intraservice time was 50 minutes. Findings: The perianal and digital rectal examinations were normal. Non-bleeding internal hemorrhoids were found. A localized area of moderately erythematous mucosa was found in the sigmoid colon. There were inflammatory changes with congested mucosa. Difficult to determine if mucosa was a mass or not due to the inflamed nature and therefore biopsies were taken with cold grasper forceps. This was biopsied with a cold jumbo forceps for histology. Verification of patient identification for the specimen was done by the nurse. Estimated blood loss was minimal. Four sessile and semi-pendunculated polyps were found in the sigmoid colon. The polyps were 3 to 15 mm in size. These polyps were removed with a hot snare. Resection and retrieval were complete. Verification of patient identification for the specimen was done by the nurse. Estimated blood loss was minimal. A 7 to 10 mm polyp was found in the cecum. The polyp was sessile. The polyp was removed with a hot snare. Resection and retrieval were complete. Verification of patient identification for the specimen was done by the nurse. Estimated blood loss was minimal. Impression: - Non-bleeding internal hemorrhoids. - One 8 to 11 mm polyp in the sigmoid colon, removed with a cold snare. Resected and retrieved. Clip (MR conditional) was placed. Clip safety belt installer: Camalize SL. Recommendation: - Repeat colonoscopy date to be determined after pending pathology results are reviewed for surveillance. (more content not included)... [facility] HISTORY PHYSICALon HISTORY PHYSICAL HNO ID: [id number] Author: Melyssa Magdaleno MD Service: General Surgery Author Type: Physician Type: HANDP Filed: 07/26/2022 7:57 AM Note Text: HISTORY AND PHYSICAL Conrad Oconnell 1955 REFERRING PHYSICIAN: Melyssa Magdaleno MD CHIEF COMPLAINT: Consult (Colonoscopy ) HPI: The patient is a 67 year old male referred for endoscopy. Conrad notes history of ulcerative colitis, diagnosed around 2014. He is presently on sulfasalazine He has a colonoscopy last year, but he had a poor colon cleansing preparation. He was found to have multiple tubular adenomas. The patient denies blood in stools, denies abdominal pain, and denies changes in bowel habits. The patient states that his father had colon cancer, diagnosed around the age of 60. PAST MEDICAL HISTORY Diagnosis Date Anal or rectal pain Cellulitis and abscess of leg, except foot Emphysema/COPD (HCC) Hypertension IBD (inflammatory bowel disease) Sleep apnea PAST SURGICAL HISTORY Procedure Laterality Date COLONOSCOPY FLX DX W/COLLJ SPEC WHEN PFRMD 05/05/2015 Colonoscopy COLONOSCOPY FLX DX W/COLLJ SPEC WHEN PFRMD 06/08/2021 repeat in 1 year SINUS SURGERY HX 10/2020 SKIN BIOPSY HX Current Outpatient Medications Medication Sig TRELEGY ELLIPTA 100-62.5-25 mcg inhalation powder Inhale 1 Puff as instructed once daily. bisoprolol-hydroCHLOR Othiazide (ZIAC) 10-6.25 mg per tablet Take 1 tablet by mouth once daily. Cholecalciferol, Vitamin D3, 50 mcg (2,000 unit) cap Take 50 capsules by mouth once daily. gabapentin (NEURONTIN) 600 mg tablet Take 600 mg by mouth once daily. PNV/iron/folic acid ( NNVZLML-PIVE-WW ORAL) Take 1 tablet by mouth once daily. CPAP daily at bedtime. sulfaSALAzine (AZULFIDINE) 500 mg tablet Take 1 tablet by mouth four times daily. Ascorbic Acid 100 mg tablet Take 2,000 mg by mouth once daily. MEDICATION, NON-DATABASE Take 1 tablet by mouth once daily. Pt states takes a BP med daily-unsure name FOLIC ACID/MULTIVIT-MIN/LUT EIN (CENTRUM SILVER ORAL) Take by mouth. aspirin 81 mg chewable tablet Take 81 mg by mouth once daily. ALLERGIES: Patient has no known allergies. PERSONAL HISTORY: Social History Tobacco Use Smoking status: Former Packs/day: 1.00 Years: 35.00 Pack years: 35.00 Types: Cigarettes Smokeless tobacco: Never Vaping Use Vaping Use: Never used Substance Use Topics Alcohol use: Yes Comment: occasionally FAMILY HISTORY Problem Relation Age of Onset other (lung cancer) Mother Colon Cancer Father The review of systems data was entered by the nurse and reviewed by nj Nursing Notes: Sandra Mera LPN 05/24/2022 3:18 PM Signed REVIEW OF SYSTEMS: General: The patient denies fatigue, denies weight loss, denies weight gain, denies feeling hot, and denies feelings of cold. Eyes: The patient denies glaucoma, denies eye injury/surgery, wears glasses or contacts. Ear/Nose/Throat: The patient notes allergies, denies hayfever, denies ear infections, and denies bloody noses. Cardiovascular: The patient denies chest pain, denies heart disease, denies high blood pressure,denies cardiac stent, denies prior heart attack, denies irregular heart beat, denies high cholesterol, denies poor circulation, denies heart failure, other cardiac issues, denies claudication, denies cold feet, denies peripheral arterial stent. Respiratory: The patient denies tuberculosis, denies pneumonia, denies frequent cough, denies pulmonary embolism, denies shortness of breath, and denies coughing up blood, notes other lung problems. Gastrointestinal: The patient denies difficulty swallowing, denies acid reflux, denies ulcers, denies vomiting, denies jaundice/hepatitis, denies gallbladder problems, denies black or tarry stools, denies hemorrhoids, denies bleeding from rectum, denies diverticulitis, denies constipation, denies diarrhea, denies loss of stool control, and denies hernias. Kidney/Bladder: The patient denies kidney stones, denies urine infections, and denies bloody urine. Skin: The patient denies a history of skin cancer, denies bleeding/changing moles, and denies a history of skin rash. Neurologic: The patient denies a history of epilepsy/convulsions, denies headaches, denies head/spinal injuries, and denies stroke/TIA. Psychiatric: The patient denies psychiatric medications, denies depression, and denies voices, denies substance abuse. Endocrine: The patient denies thyroid disorders, denies diabetes, and denies hormonal problems. Hematologic: The patient denies a history of bruising, denies bleeding, and denies anemia, denies blood clots. Infections: The patient denies a history of measles and mumps, denies rheumatic fever, and denies sexually transmitted diseases. Musculoskeletal: The patient denies back pain/injury, denies back problems, denies sciatica, denies knee/foot trouble, denies arthritis, or denies gout. When was patient's l (more content not included)... [facility] NURSING PROGon 07-26-2022 NURSING PROG HNO ID: [id number] Author: Opal Pandey RN Service: ? Author Type: Registered Nurse Type: Nursing Progress Note Filed: 07/26/2022 10:29 AM Note Text: No air passed in restroom either, return to [place] 2, sitting on edge of bed, given water to sip due to complaint of dry mouth. Denies pain at this time. [facility] NURSING PROG HNO ID: [id number] Author: Opal Pandey RN Service: ? Author Type: Registered Nurse Type: Nursing Progress Note Filed: 07/26/2022 10:25 AM Note Text: Ambulated without difficulty, no air was passed. Will try sitting on toilet for a few minutes. Still no pain or cramping reported. [facility] NURSING PROG HNO ID: [id number] Author: Opal Pandey RN Service: ? Author Type: Registered Nurse Type: Nursing Progress Note Filed: 07/26/2022 10:24 AM Note Text: Abdomen remains distended and firm to light palpation, patient denies pain but has not passed any air rectally yet. Patient alert and awake, will ambulate in hallway and stop and sit on toilet to see if movement or change of positions aids in air removal. [facility] NURSING PROG HNO ID: [id number] Author: Opal Pandey RN Service: ? Author Type: Registered Nurse Type: Nursing Progress Note Filed: 07/26/2022 10:12 AM Note Text: Arrived in phase II via cart left lateral position eyes open alert to event and self, skin warm and dry, respirations regular and unlabored, abdomen is rounded, firm and distended, warm blanket was applied in procedure room, patient denies pain, reports abdomen feels tight only, encouraged to pass air rectally as able, continues to lay on left side. [facility] SURGICAL PATHOLOGYon 023 CASE REPORT Normal [facility] Comment on above: Order Comment: Speci men Type: TISSUE SPECIMEN Ordering Facility: [facility] Address: [address] [place] [id number] Result Comment: Surg [facility] Pathology Report Case: [id number] Authorizing Provider: Melyssa Magdaleno MD Collected: 07/26/2022 09:07 AM Ordering Location: Ambulatory Surgery Received: 07/26/2022 02:01 PM Pathologist: Geovanni Liz MD Specimens: A) - CECUM POLYP B) - SIGMOID COLON POLYP, Sigmoid colon Polyp'S x4 C) - SIGMOID COLON BIOPSY, bx of mucosa of the sigmoid colon D) - SIGMOID COLON BIOPSY, bx of mass of the sigmoid colon Performed By: #### S #### [facility] CLIA [id number] [address] [place] [address] DIAGNOSIS COMMENT D. The changes seen in the biopsy are non-specific but may represent an inflammatory type polyp in the appropriate setting. No neoplasm is seen. The endoscopic impression of moderately erythematous mucosa, inflammatory changes, and a questionable mass lesion is noted. The specimen may not be treasury representative of the clinically suspected lesion; clinical and endoscopic correlation is recommended. [facility] Comment on above: Order Comment: Speci men Type: TISSUE SPECIMEN Ordering Facility: [facility] Address: [address] [place] [address] Performed By: #### S #### [facility] CLIA [id number] [address] [place] [address] FINAL DIAGNOSIS Normal [facility] Comment on above: Order Comment: Speci men Type: TISSUE SPECIMEN Ordering Facility: [facility] Address: [address] [address] Result Comment: A. C olon, cecal polyp, biopsy: -Tubular adenoma. B. Colon, sigmoid polyps (x4), biopsy: -Tubular adenoma. -Fragments of inflammatory type polyp. C. Colon, sigmoid, biopsy: -Colonic mucosa with no diagnostic abnormality. D. Colon, sigmoid mass, biopsy: -Fragments of colonic mucosa with granulation tissue and hyperplastic change, see comment. Performed By: #### S #### [facility] CLIA [id number] [address] [place] [address] FINAL PERFORMING LAB Normal [facility] Comment on above: Order Comment: Speci men Type: TISSUE SPECIMEN Ordering Facility: [facility] Address: [address] [address] Result Comment: Diag nostic interpretation performed at [facility], [address] [place], [place] [id number] CLIA# [id number] Body Work Auto Trimmer: Louie Lewis M.D. Performed By: #### S #### [facility] [place] [id number] [address] [place] [address] OF [facility] GROSS DESCRIPTION A. CECUM POLYP Normal [facility] Comment on above: Order Comment: Speci men Type: TISSUE SPECIMEN Ordering Facility: [facility] Address: [address] [facility] [id number] Result Comment: Rece ived in formalin is one segment of valdaez polypoid tissue measuring 0.8 x 0.6 x 0.3 cm. No stalk is noted. The line of resection is noted. The specimen is bisected and totally submitted in formalin in one cassette. B. SIGMOID COLON POLYP Received in formalin are multiple segments of valadez-red polypoid tissue ranging in size from 0.7 x 0.5 x 0.4 cm to 0.2 x 0.2 x 0.2 cm. No stalks are noted. The lines of resection are noted. The larger specimens are bisected. The remaining specimens are not sectioned. Totally submitted in formalin and one cassette. C. SIGMOID COLON BIOPSY Received in formalin is one piece of valadez, soft tissue measuring 0.3 x 0.2 x 0.2 cm. Totally submitted in one cassette. D. SIGMOID COLON BIOPSY Received in formalin are multiple pieces of valadez, soft tissue aggregating to 1.1 x 0.2 x 0.2 cm. Totally submitted in one cassette. Gross examination performed at [facility], [address] [place] [address] TTN 07/26/2022 11:20 PM Performed By: #### S #### [facility] IA [id number] [address] [place] [address] OF [facility] Pamela 05-24-2022 CNOV Office Visit (GENSWS ) CONRAD OCONNELL ([id number]) 1955 M Date Time Provider Department 05/24/22 3:15 PM MELYSSA MAGDALENO During your visit today, we recorded the following information about you: Temperature Pulse Blood pressure Weight 97.5 degrees 110/minute 138/78 113.9 kg Height 1.753 m Sandra Mera LPN 05/24/2022 3:18 PM Signed REVIEW OF SYSTEMS: General: The patient denies fatigue, denies weight loss, denies weight gain, denies feeling hot, and denies feelings of cold. Eyes: The patient denies glaucoma, denies eye injury/surgery, wears glasses or contacts. Ear/Nose/Throat: The patient notes allergies, denies hayfever, denies ear infections, and denies bloody noses. Cardiovascular: The patient denies chest pain, denies heart disease, denies high blood pressure,denies cardiac stent, denies prior heart attack, denies irregular heart beat, denies high cholesterol, denies poor circulation, denies heart failure, other cardiac issues, denies claudication, denies cold feet, denies peripheral arterial stent. Respiratory: The patient denies tuberculosis, denies pneumonia, denies frequent cough, denies pulmonary embolism, denies shortness of breath, and denies coughing up blood, notes other lung problems. Gastrointestinal: The patient denies difficulty swallowing, denies acid reflux, denies ulcers, denies vomiting, denies jaundice/hepatitis, denies gallbladder problems, denies black or tarry stools, denies hemorrhoids, denies bleeding from rectum, denies diverticulitis, denies constipation, denies diarrhea, denies loss of stool control, and denies hernias. Kidney/Bladder: The patient denies kidney stones, denies urine infections, and denies bloody urine. Skin: The patient denies a history of skin cancer, denies bleeding/changing moles, and denies a history of skin rash. Neurologic: The patient denies a history of epilepsy/convulsions, denies headaches, denies head/spinal injuries, and denies stroke/TIA. Psychiatric: The patient denies psychiatric medications, denies depression, and denies voices, denies substance abuse. Endocrine: The patient denies thyroid disorders, denies diabetes, and denies hormonal problems. Hematologic: The patient denies a history of bruising, denies bleeding, and denies anemia, denies blood clots. Infections: The patient denies a history of measles and mumps, denies rheumatic fever, and denies sexually transmitted diseases. Musculoskeletal: The patient denies back pain/injury, denies back problems, denies sciatica, denies knee/foot trouble, denies arthritis, or denies gout. When was patient's last Mammogram screening? N/A Last Colonoscopy: 2020 GABY Thurston MD 05/24/2022 3:31 PM Signed Bowel Preparation Instructions for: Golytely, Nulytely, Trilyte or Colyte (polyethylene glycol 3350 and electrolytes) IF YOU DO NOT FOLLOW THESE DIRECTIONS, YOUR COLONOSCOPY WILL BE CANCELLED. Ngo Instructions: Your bowel must be empty so that your doctor can clearly view your colon. Follow all of the instructions in this handout EXACTLY as they are written. Do NOT eat any solid food the ENTIRE day before your colonoscopy. Drink only clear liquids. Buy your bowel preparation at least 5 days before your colonoscopy. TRANSPORTATION on the Day of Your Exam A responsible person MUST be present with you at Check In prior to your colonoscopy and REMAIN in the endoscopy area until you are discharged. You are NOT ALLOWED to drive, take a taxi or bus, or leave the Endoscopy Center ALONE. If you do not have a responsible cement mixer driver (family member or friend) with you to take you home, your exam cannot be done with sedation and will be cancelled. Please bring a list of all of your current medications, including any Over-the Counter medications with you. Medications If you take insulin, diabetic medications or blood thinners such as Coumadin (warfarin), Plavix (clopidogrel), Ticlid (ticlopidine hydrochloride), Agrylin (anagrelide), Xarelto (Rivaroxaban), Pradaxa (Dabigatran), Eliquis (Apixaban), and Effient (Prasugrel). You MUST call the doctors who orders those medicines for instructions on altering the dosage before your colonoscopy. All other medications should be taken the day of the exam with a sip of water including ASPIRIN. Five (5) Days Before Your Colonoscopy Do NOT take medicines that stop diarrhea - such as Imodium, Kaopectate, or Pepto Bismol. Do NOT take fiber supplements - such as Metamucil, Citrucel, or Perdiem. Do NOT take products that contain iron - such as multi-vitamins (the label lists what is in the products). Do NOT take Vitamin E. Buy the prescription bowel preparation solution at your local pharmacy or drugstore pharmacy. 06/2019 Bowel Preparation Instructions for: Golytely, Nulytely, Trilyte or Colyte (polyethylene g (more content not included)... Normal [facility] Vital Signs Date Time Vital Sign Value Performing Clinician Facility 05-06-2025 14:07-0400 Body temperature 98.2 [degF] Dr. Zechariah Siddiqui MD Work Phone: [phone] [place] [address] 05-06-2025 14:07-0400 Body weight 99.[address] Zechariah Siddiqui MD Work Phone: [phone] [place] [address] 05-06-2025 14:07-0400 Diastolic blood pressure 67 mm[Hg] Dr. Zechariah Siddiqui MD Work Phone: [facility] 05-06-2025 14:07-0400 Heart rate 71 /min Dr. Zechariah Siddiqui MD Work Phone: [facility] 05-06-2025 14:07-0400 Respiratory rate 16 /min Dr. Zechariah Siddiqui MD Work Phone: [phone] [place] [address] 05-06-2025 14:07-0400 SaO2% (BldA) [Mass fraction] 97 % Dr. Zechariah Siddiqui MD Work Phone: [facility] 05-06-2025 14:07-0400 Systolic blood pressure 119 mm[Hg] Dr. Zechariah Siddiqui MD Work Phone: [facility] 03-03-2025 10:14-0400 Body height 177.[address] Zechariah Siddiqui MD Work Phone: [facility] 03-03-2025 10:14-0400 Body mass index (BMI) [Ratio] 31.4 kg/m2 Dr. Zechariah Siddiqui MD Work Phone: [facility] 03-03-2025 10:14-0400 Body weight 99.[address] Zechariah Siddiqui MD Work Phone: [facility] 03-03-2025 10:14-0400 Diastolic blood pressure 68 mm[Hg] Dr. Zechariah Siddiqui MD Work Phone: [facility] 03-03-2025 10:14-0400 Heart rate 63 /min Dr. Zechariah Siddiqui MD Work Phone: [facility] 03-03-2025 10:14-0400 Respiratory rate 18 /min Dr. Zechariah Siddiqui MD Work Phone: [facility] 03-03-2025 10:14-0400 SaO2% (BldA) [Mass fraction] 94 % Dr. Zechariah Siddiqui MD Work Phone: [facility] 03-03-2025 10:14-0400 Systolic blood pressure 112 mm[Hg] Dr. Zechariah Siddiqui MD Work Phone: [facility] 01-07-2025 16:38-0400 Body temperature 97.5 [degF] Barbara Call MD Work Phone: [facility] 01-07-2025 16:38-0400 Diastolic blood pressure 56 mm[Hg] Barbara Call MD Work Phone: [facility] 01-07-2025 16:38-0400 Heart rate 72 /min Barbara Call MD Work Phone: [facility] 01-07-2025 16:38-0400 Respiratory rate 18 /min Barbara Call MD Work Phone: [facility] 01-07-2025 16:38-0400 SaO2% (BldA) [Mass fraction] 97 % Barbara Call MD Work Phone: [facility] 01-07-2025 16:38-0400 Systolic blood pressure 114 mm[Hg] Barbara Call MD Work Phone: [facility] 01-04-2025 17:00-0400 Body mass index (BMI) [Ratio] 33.95 kg/m2 Barbara Call MD Work Phone: [facility] 01-04-2025 17:00-0400 Body weight 104.33 kg Barbara Call MD Work Phone: [facility] 12-29-2024 10:00-0400 Body height 175.3 cm Barbara Call MD Work Phone: [facility] 12-22-2024 20:01-0400 Body temperature 97.8 [degF] Dr. Zechariah Siddiqui MD Work Phone: [facility] 12-22-2024 20:01-0400 Diastolic blood pressure 78 mm[Hg] Dr. Zechariah Siddiqui MD Work Phone: [facility] 12-22-2024 20:01-0400 Heart rate 123 /min Dr. Zechariah Siddiqui MD Work Phone: [facility] 12-22-2024 20:01-0400 Respiratory rate 17 /min Dr. Zechariah Siddiqui MD Work Phone: [facility] 12-22-2024 20:01-0400 SaO2% (BldA) [Mass fraction] 95 % Dr. Zechariah Siddiqui MD Work Phone: [facility] 12-22-2024 20:01-0400 Systolic blood pressure 96 mm[Hg] Dr. Zechariah Siddiqui MD Work Phone: [facility] 12-22-2024 11:55-0400 Body height 177.[address] Zechariah Siddiqui MD Work Phone: [facility] 12-22-2024 11:55-0400 Body weight 104.[address] Zechariah Siddiqui MD Work Phone: [facility] 12-22-2024 06:00-0400 Body mass index (BMI) [Ratio] 33.1 kg/m2 Dr. Zechariah Siddiqui MD Work Phone: 9(749)210-288470 [place] [address] 12-21-2024 06:45-0400 Inhaled oxygen flow rate 2 L/min Dr. Zechariah Siddiqui MD Work Phone: 7(168)[phone] [place] [address] 12-15-2024 12:25-0400 Inhaled oxygen concentration 98 % Dr. Zechariah Siddiqui MD Work Phone: 3(083)195-350702 [place] [address] 12-13-2024 20:32-0400 Body temperature 98.3 [degF] Dr. Zechariah Siddiqui MD Work Phone: 8(345)046-435202 [place] [address] 12-13-2024 20:32-0400 Diastolic blood pressure 68 mm[Hg] Dr. Zechariah Siddiqui MD Work Phone: 7(636)320-223602 [place] [address] 12-13-2024 20:32-0400 Heart rate 149 /min Dr. Zechariah Siddiqui MD Work Phone: 6(951)285-264202 [place] [address] 12-13-2024 20:32-0400 Respiratory rate 23 /min Dr. Zechariah Siddiqui MD Work Phone: 3(217)250-675302 [place] [address] 12-13-2024 20:32-0400 SaO2% (BldA) [Mass fraction] 95 % Dr. Zechariah Siddiqui MD Work Phone: 4(566)764-129602 [place] [address] 12-13-2024 20:32-0400 Systolic blood pressure 93 mm[Hg] Dr. Zechariah Siddiqui MD Work Phone: 9(658)951-725802 [place] [address] 12-13-2024 20:06-0400 Body height 175.[address] Zechariah Siddiqui MD Work Phone: 5(487)443-709702 [place] [address] 12-13-2024 18:59-0400 Inhaled oxygen flow rate 2 L/min Dr. Zechariah Siddiqui MD Work Phone: 4(292)641-232602 [place] [address] 03-20-2023 11:35-0400 Body height 175.[address] Zechariah Siddiqui Work Phone: 9(991)737-710502 [place] [address] 03-20-2023 11:35-0400 Body mass index (BMI) [Ratio] 35.9 kg/m2 Dr. Zechariah Siddiqui Work Phone: [facility] 03-20-2023 11:35-0400 Body weight 110.[address] Zechariah Siddiqui Work Phone: [facility] 03-20-2023 11:35-0400 Diastolic blood pressure 85 mm[Hg] Dr. Zechariah Siddiqui Work Phone: [facility] 03-20-2023 11:35-0400 Heart rate 128 /min Dr. Zechariah Siddiqui Work Phone: [facility] 03-20-2023 11:35-0400 Respiratory rate 22 /min Dr. Zechariah Siddiqui Work Phone: [facility] 03-20-2023 11:35-0400 SaO2% (BldA) [Mass fraction] 97 % Dr. Zechariah Siddiqui Work Phone: [facility] 03-20-2023 11:35-0400 Systolic blood pressure 146 mm[Hg] Dr. Zechariah Siddiqui Work Phone: [facility] 08-02-2022 15:37-0500 Body height 172.7 cm Melyssa Magdaleno MD Work Phone: [facility] 08-02-2022 15:37-0500 Body temperature 97.9 [degF] Melyssa Magdaleno MD Work Phone: [facility] 08-02-2022 15:37-0500 Body weight 113.4 kg Melyssa Magdaleno MD Work Phone: [facility] 08-02-2022 15:37-0500 Diastolic blood pressure 72 mm[Hg] Melyssa Magdaleno MD Work Phone: [facility] 08-02-2022 15:37-0500 Heart rate 91 /min Melyssa Magdalneo MD Work Phone: [facility] 08-02-2022 15:37-0500 SaO2% (BldA) [Mass fraction] 98 % Melyssa Magdaleno MD Work Phone: [facility] 01-13-2023 15:37-0500 Systolic blood pressure 122 mm[Hg] Melyssa Magdaleno MD Work Phone: [facility] 07-26-2022 10:43-0500 Diastolic blood pressure 76 mm[Hg] Melyssa Magdaleno MD Work Phone: [facility] 07-26-2022 10:43-0500 Heart rate 68 /min Melyssa Magdaleno MD Work Phone: [facility] 07-26-2022 10:43-0500 Respiratory rate 16 /min Melyssa Magdaleno MD Work Phone: [facility] 07-26-2022 10:43-0500 SaO2% (BldA) [Mass fraction] 96 % Melyssa Magdaleno MD Work Phone: [facility] 07-26-2022 10:43-0500 Systolic blood pressure 162 mm[Hg] Melyssa Magdaleno MD Work Phone: [facility] 07-26-2022 08:01-0500 Body temperature 97.59 [degF] Melsysa Magdaleno MD Work Phone: [facility] 07-26-2022 08:01-0500 Body weight 113.9 kg Melyssa Magdaleno MD Work Phone: [facility] 05-24-2022 15:16-0400 Body height 175.3 cm Melyssa Magdaleno MD Work Phone: [facility] 05-24-2022 15:16-0400 Body temperature 97.5 [degF] Melyssa Magdaleno MD Work Phone: [facility] 05-24-2022 15:16-0400 Body weight 113.85 kg Melyssa Magdaleno MD Work Phone: [facility] 05-24-2022 15:16-0400 Diastolic blood pressure 78 mm[Hg] Melyssa Magdaleno MD Work Phone: [facility] 05-24-2022 15:16-0400 Heart rate 110 /min Melyssa Magdaleno MD Work Phone: [facility] 05-24-2022 15:16-0400 SaO2% (BldA) [Mass fraction] 94 % Melyssa Magdaleno MD Work Phone: [facility] 05-24-2022 15:16-0400 Systolic blood pressure 138 mm[Hg] Melyssa Magdaleno MD Work Phone: [facility] Encounters Encounter Date Encounter Type Care Provider Facility Start: 05-06-2025 End: 05-06-2025 Patient encounter procedure Park ROTH -[facility] Work Phone: Start: 05-06-2025 End: 05-06-2025 ambulatory [facility] Facility:[facility] Start: 04-06-2025 Non-patient / Non-visit Dr. Pasha BAY -[facility] Start: 04-06-2025 End: 04-06-[address] Zechariah Siddiqui MD Work Phone: -Cardiovascular Services Start: 04-06-2025 End: 04-06-[address] Basil Hunter MD -Cardiovascular Services Work Phone: Start: 04-06-2025 End: 04-06-2025 ambulatory Basil Hunter Facility:[facility] Start: 03-28-2025 Non-patient / Non-visit Dr. Zechariah amin MD -[facility] Start: 03-28-2025 End: 03-28-[address] Zechariah Siddiqui MD Work Phone: -Cardiovascular Services Start: 03-28-2025 End: 03-28-[address] Basil Hunter MD -Cardiovascular Services Work Phone: Start: 03-28-2025 End: 03-28-2025 ambulatory Basil Hunter Facility:[facility] Start: 03-03-2025 End: 03-03-[address] Basil Hunter MD -[facility] Work Phone: Start: 03-03-2025 End: 03-03-2025 Dr. Basil Hunter MD -[facility] Work Phone: Start: 03-03-2025 End: 03-03-[address] Zechariah Siddiqui MD Work Phone: -[facility] Start: 01-26-2025 ambulatory SELF SELF Facility:[facility] Start: 01-10-2025 ambulatory SELF SELF Facility:[facility] Start: 12-27-2024 Evaluation and management of inpatient SELF SELF Facility:[facility] Start: 12-22-2024 End: 01-07-2025 Evaluation and management of inpatient Barbara Call MD Work Phone: [id number] Start: 12-22-2024 Non-patient / Non-visit Dr. Adeline Rivera MD [facility] Start: 12-22-2024 Dr. Adeline Rivera MD [facility] Start: 12-22-2024 Non-patient / Non-visit Dr. Basil Hunter MD [facility] Start: 12-22-2024 Dr. Basil Hunter MD [facility] Start: 12-22-2024 Non-patient / Non-visit Dr. Zechariah darnell [facility] Work Phone: Start: 12-22-2024 Dr. Marie Grove MD [facility] Work Phone: Start: 12-21-2024 Non-patient / Non-visit Bianka sepulveda PA-C -[facility]: [facility]-21-[facility] Start: 12-21-2024 Non-patient / Non-visit Dr. Zechariah darnell [facility] Work Phone: Start: 12-21-2024 Dr. Marie Grove MD [facility] Work Phone: Start: 12-20-2024 Dr. Adeline Rivera MD [facility] Start: 12-20-2024 Dr. Zechariah Plasencia [facility] Work Phone: Start: 12-19-2024 Dr. Adeline Rivera MD [facility] Start: 12-19-2024 Dr. Eric Gutierrez [facility] Work Phone: Start: 12-18-2024 Dr. Jaziel Lundberg MD [facility] Start: 12-18-2024 Dr. Eric Gutierrez [facility] Work Phone: Start: 12-18-2024 Dr. Adeline Rivera MD [facility] Start: 12-17-2024 Dr. Eric Gutierrez [facility] Work Phone: Start: 12-17-2024 Dr. Delano Harris MD -[facility] Start: 12-16-2024 Dr. Jaziel Lundberg MD [facility] Start: 12-16-2024 Dr. Basil Ramírez MD [facility] Start: 12-16-2024 Dr. Montana Leone DO [facility] Start: 12-15-2024 Dr. Jaizel Lundberg MD [facility] Start: 12-15-2024 Dr. Montana Leone DO [facility] Start: 12-15-2024 Dr. Del[address] Harris MD [facility] Start: 12-14-2024 Dr. Del[address] Harris MD [facility] Start: 12-14-2024 End: 12-16-2024 ambulatory Home Lea RN [employer] [facility] Start: 12-14-2024 Dr. Jaziel Lundberg MD [facility] Start: 12-13-2024 End: 12-22-2024 Evaluation and management of inpatient Dr. Zhang Hester MD -Intensive Care Unit Work Phone: Start: 12-13-2024 Non-patient / Non-visit Dr. Zhang malik MD [facility] Work Phone: Start: 12-13-2024 End: 12-22-2024 Dr. Zechariah Plasencia DO -[facility] Work Phone: Start: 12-13-2024 ambulatory Delano Smith lity:[facility] Start: 12-07-2024 End: 12-09-2024 Evaluation and management of inpatient ERNESTO A MENDOTA Facility:[facility] Start: 12-02-2024 ambulatory SELF SELF Facility:[facility] Start: 11-30-2024 End: 11-30-[address] Zechariah Siddiqui MD Work Phone: [facility] Work Phone: Start: 11-30-2024 End: 11-30-[address] Zechariah Siddiqui MD -Laboratory [place] Work Phone: Start: 11-30-2024 End: 11-30-2024 Dr. Zechariah Siddiqui MD -[facility] [place] Work Phone: Start: 11-30-2024 End: 11-30-2024 ambulatory Zechariah Madison Facility:[facility] Start: 11-11-2024 End: 11-11-[address] Tee Mahmood MD -Radiology [place] Work Phone: Start: 11-11-2024 End: 11-11-2024 Dr. Tee Mahmood MD -Radiology [facility] Work Phone: Start: 11-11-2024 End: 11-11-2024 ambulatory Tee Mahmood Facility:[facility] Start: 11-04-2024 End: 11-04-[address] Zechariah Siddiqui MD -[facility]atory [place] Work Phone: Start: 11-04-2024 End: 11-04-2024 Dr. Zechariah Siddiqui MD -Laboratory [facility] Work Phone: Start: 11-04-2024 End: 11-04-2024 ambulatory Zechariah Siddiqui Facility:[facility] Start: 10-29-2024 End: 10-29-[address] Zechariah Siddiqui MD Work Phone: [facility] Work Phone: Start: 10-29-2024 End: 10-29-[address] Zechariah Siddiqui MD -Laboratory, [facility] Start: 10-29-2024 End: 10-29-2024 Dr. Zechariah Siddiqui MD -Laboratory [facility] Start: 10-29-2024 End: 10-29-2024 ambulatory Zechariah Siddiqui Facility:[facility] Start: 08-20-2024 End: 08-20-[address] Samuel Carreno MD -Cat Scan, [facility] Work Phone: Start: 08-20-2024 End: 08-20-2024 ambulatory Samuel Carreno Facility:[facility] Start: 08-12-2024 End: 08-12-[address] [facility] Start: 08-12-2024 End: 08-12-2024 [facility] Start: 10-24-2023 End: 10-24-2023 ambulatory [facility] Work Phone: Start: 10-24-2023 End: 10-24-2023 Patient encounter procedure [facility] Start: 05-01-2023 End: 05-01-[address] Zechariah Siddiqui Work Phone: [facility] Work Phone: Start: 05-01-2023 End: 05-01-[address] Zechariah Siddiqui Work Phone: [facility] Work Phone: Start: 04-17-2023 Non-patient / Non-visit Dr. Shady Siddiqui Work Phone: [facility] Start: 04-17-2023 End: 04-17-[address] Zechariah Siddiqui Work Phone: [facility] Work Phone: Start: 04-17-2023 End: 04-17-[address] Zechariah Siddiqui Work Phone: [facility] Work Phone: Start: 03-20-2023 End: 03-20-[address] Zechariah Siddiqui Work Phone: [facility] Work Phone: Start: 03-20-2023 End: 03-20-[address] Zechariah Siddiqui Work Phone: [facility] Start: 03-20-2023 End: 03-20-[address] Zechariah Siddiqui Work Phone: [facility] Work Phone: Start: 01-28-2023 End: 01-28-2023 ambulatory [facility] Work Phone: Start: 01-28-2023 End: 01-28-2023 Patient encounter procedure [facility] Start: 01-09-2023 End: 01-09-2023 ambulatory [facility] Work Phone: Start: 01-09-2023 End: 01-09-2023 Patient encounter procedure [facility] Start: 08-02-2022 End: 08-02-2022 ambulatory MELYSSA MAGDALENO Facility:[facility] Start: 08-02-2022 End: 08-02-2022 Patient encounter procedure Melyssa Magdaleno MD Work Phone: General Surgery Comment on above: Idiopathic colitis ( Primary Dx) Start: 07-26-2022 End: 07-26-2022 ambulatory MELYSSA MAGDALENO Facility:[facility] Start: 07-26-2022 End: 07-26-2022 Subsequent hospital visit by physician Melyssa Magadleno MD Work Phone: Ambulatory Surgery Comment on above: History of colonic p olyps [Z86.010] Start: 05-24-2022 End: 05-24-2022 ambulatory MELYSSA MAGDALENO Facility:[facility] Start: 05-24-2022 End: 05-24-2022 Patient encounter procedure Melyssa Magdaleno MD Work Phone: General Surgery Comment on above: History of colonic p olyps; Ulcerative pancolitis without complication (HCC); Family history of colon cancer in father Start: 02-14-2022 End: 02-14-2022 Patient encounter procedure [facility]-Cat Scan, [facility] Start: 09-26-2020 Patient encounter status [facility] Start: 09-26-[address] Zechariah sepulveda MD Work Phone: [facility] Procedures Date Procedure Procedure Detail Performing Clinician Start: 01-07-2025 Glucose measurement, reed Call MD Work Phone: Start: 01-07-2025 CARDIAC RHYTHM (SCANNED) Other Other OT Start: 01-07-2025 End: 01-07-2025 Glucose measurement, blood Barbara barone MD Work Phone: Start: 01-07-2025 Ct heart contrast ev al cardiac structure&morph Bianka Bunch ANTHROPOLOGY AND ARCHEOLOGY INSTRUCTOR-OFFSET LABEL REWINDER Work Phone: Start: 01-07-2025 Glucose measurement, blood Barbara Call MD Work Phone: Start: 01-07-2025 Assay of magnesium Gayathri Mejia [facility] Work Phone: Start: 01-06-2025 Glucose measurement, blood Barbara Call MD Work Phone: Start: 01-06-2025 End: 01-06-2025 Glucose measurement, blood Barbara barone MD Work Phone: Start: 01-06-2025 Glucose measurement, blood Barbara Call MD Work Phone: Start: 01-06-2025 Assay of magnesium Gayathri Mejia [facility] Work Phone: Start: 01-06-2025 Glucose measurement, blood Barbara Call MD Work Phone: Start: 01-05-2025 Glucose measurement, blood Barbara Call MD Work Phone: Start: 01-05-2025 Glucose measurement, reed Call MD Work Phone: Start: 01-05-2025 Glucose measurement, blood Barbara Call MD Work Phone: Start: 01-05-2025 Glucose measurement, blood Barbara Call MD Work Phone: Start: 01-05-2025 Assay of magnesium Gayathri Mejia [facility] Work Phone: Start: 01-05-2025 Glucose measurement, blood Barbara Call MD Work Phone: Start: 01-04-2025 Glucose measurement, blood Barbara Call MD Work Phone: Start: 01-04-2025 Glucose measurement, blood Barbara Call MD Work Phone: Start: 01-04-2025 Blood count complete automated Mahnaz A Boxwell ANTHROPOLOGY AND ARCHEOLOGY INSTRUCTOR-OFFSET LABEL REWINDER Work Phone: Start: 01-04-2025 Radiologic exam ches t single view Mahnaz Wander Boxwell ANTHROPOLOGY AND ARCHEOLOGY INSTRUCTOR-OFFSET LABEL REWINDER Work Phone: Start: 01-04-2025 Bld bank phys svcs i nvstgj tfuj rxn reprt Mahnaz Wander Boxwell ANTHROPOLOGY AND ARCHEOLOGY INSTRUCTOR-OFFSET LABEL REWINDER Work Phone: Start: 01-04-2025 End: 01-04-2025 Transfusion of packed red blood cells Mahnaz Viramontes Boxwell ANTHROPOLOGY AND ARCHEOLOGY INSTRUCTOR-OFFSET LABEL REWINDER Work Phone: Start: 01-04-2025 Antibody screen Barbara perez MD Work Phone: Start: 01-04-2025 Antibody screen SELF SE LF Comment on above: Performed By: #### A CARMEN #### [facility] ([facility]) [address] [place] [address] Start: 01-04-2025 Blood typing serologic abo Italo Rasmussen MD Work Phone: Start: 01-04-2025 Glucose measurement, blood Barbara Call MD Work Phone: Start: 01-04-2025 PREPARE TO TRANSFUSE RED BLOOD CELLS Mahnazjulee Espinalwell ANTHROPOLOGY AND ARCHEOLOGY INSTRUCTOR-OFFSET LABEL REWINDER Work Phone: Start: 01-04-2025 End: 01-04-2025 Assay of magnesium Daniela R Aristeo [facility] Work Phone: Start: 01-03-2025 Glucose measurement, blood Barbara Call MD Work Phone: Start: 01-03-2025 End: 01-03-2025 Glucose measurement, blood Barbara barone MD Work Phone: Start: 01-03-2025 Glucose measurement, blood Barbara Call MD Work Phone: Start: 01-03-2025 Assay of magnesium Gayathri Mejia [facility] Work Phone: Start: 01-02-2025 Glucose measurement, blood Barbara Call MD Work Phone: Start: 01-02-2025 Thromboplastin time partial plasma/whole blood Armen Cortes MD Work Phone: Start: 01-02-2025 Glucose measurement, blood Barbara Call MD Work Phone: Start: 01-02-2025 Glucose measurement, blood Barbara Call MD Work Phone: Start: 01-02-2025 Radiologic exam ches t single view Lisbeth Aly MD Work Phone: Start: 01-02-2025 Thromboplastin time partial plasma/whole blood Armen Cortes MD Work Phone: Start: 01-02-2025 Glucose measurement, blood Barbara Call MD Work Phone: Start: 01-02-2025 Assay of magnesium Gayathri Mejia [facility] Work Phone: Start: 01-02-2025 Glucose measurement, blood Barbara Call MD Work Phone: Start: 01-01-2025 Thromboplastin time partial plasma/whole blood Armen Cortes MD Work Phone: Start: 01-01-2025 Glucose measurement, blood Barbara Call MD Work Phone: Start: 01-01-2025 Glucose measurement, blood Barbara Call MD Work Phone: Start: 01-01-2025 Thromboplastin time partial plasma/whole blood Armen Cortes MD Work Phone: Start: 01-01-2025 Glucose measurement, blood Barbara Call MD Work Phone: Start: 01-01-2025 Assay of magnesium Gayathri Mejia [facility] Work Phone: Start: 12-31-2024 Glucose measurement, blood Barbara Call MD Work Phone: Start: 12-31-2024 Thromboplastin time partial plasma/whole blood Armen Cortes MD Work Phone: Start: 12-31-2024 Glucose measurement, blood Barbara Call MD Work Phone: Start: 12-31-2024 Glucose measurement, blood Barbara Call MD Work Phone: Start: 12-31-2024 Thromboplastin time partial plasma/whole blood Armen Cortes MD Work Phone: Start: 12-31-2024 End: 12-31-2024 Transfusion of packed red blood cells Mahnaz Valadez ANTHROPOLOGY AND ARCHEOLOGY INSTRUCTOR-OFFSET LABEL REWINDER Work Phone: Start: 12-31-2024 Glucose measurement, blood Barbara Call MD Work Phone: Start: 12-31-2024 Assay of magnesium Gayathri Mejia [facility] Work Phone: Start: 12-30-2024 Glucose measurement, blood Barbara Call MD Work Phone: Start: 12-30-2024 End: 12-30-2024 Culture bacterial any source anaerobic iso&id Mahnaz Valadez ANTHROPOLOGY AND ARCHEOLOGY INSTRUCTOR-OFFSET LABEL REWINDER Work Phone: Start: 12-30-2024 Img-guide fluid mckay xn drainag cath periton perpati Smith MD Work Phone: Start: 12-30-2024 GENERAL PROCEDURE Isak Thompson DO Work Phone: Start: 12-30-2024 Glucose measurement, blood Barbara Call MD Work Phone: Start: 12-30-2024 Thromboplastin time partial plasma/whole blood Armen Cortes MD Work Phone: Start: 12-29-2024 Assay of magnesium Gayathri Mejia [facility] Work Phone: Start: 12-29-2024 Glucose measurement, blood Barbara Call MD Work Phone: Start: 12-29-2024 Glucose measurement, blood Barbara Call MD Work Phone: Start: 12-29-2024 Ct abdomen & pelvis w/contrast material Anselmo Galeana MD Work Phone: Start: 12-29-2024 Thromboplastin time partial plasma/whole blood Armen Cortes MD Work Phone: Start: 12-29-2024 Glucose measurement, blood Barbara Call MD Work Phone: Start: 12-29-2024 Transthoracic echocardiography Tori Steen MD Start: 12-29-2024 Antibody screen Barbara perez MD Work Phone: Start: 12-29-2024 Antibody screen SELF SE LF Comment on above: Performed By: #### A CARMEN #### [facility] ([facility]) [address] [place] [address] Start: 12-29-2024 Blood typing serologic abo Anselmo Galeana MD Work Phone: Start: 12-29-2024 PREPARE TO TRANSFUSE RED BLOOD CELLS Mahnaz Valadez ANTHROPOLOGY AND ARCHEOLOGY INSTRUCTOR-OFFSET LABEL REWINDER Work Phone: Start: 12-29-2024 Thromboplastin time partial plasma/whole blood Armen Cortes MD Work Phone: Start: 12-29-2024 Glucose measurement, blood Barbara Call MD Work Phone: Start: 12-29-2024 Assay of magnesium Gayathri la R Aristeo [facility] Work Phone: Start: 12-29-2024 Glucose measurement, blood Barbara Call MD Work Phone: Start: 12-28-2024 Assay of magnesium Sukhwinder Dominguez MD Start: 12-28-2024 Glucose measurement, blood Barbara Call MD Work Phone: Start: 12-28-2024 Thromboplastin time partial plasma/whole blood Armen Cortes MD Work Phone: Start: 12-28-2024 Basic metabolic pane l calcium total Tori Steen MD Start: 12-28-2024 Radiologic exam abdo men 1 view Marily Hill MD, MPH Work Phone: Start: 12-28-2024 Assay of troponin quantitative Tori Steen MD Start: 12-28-2024 Glucose measurement, blood Barbara Call MD Work Phone: Start: 12-28-2024 Thromboplastin time partial plasma/whole blood Armen Cortes MD Work Phone: Start: 12-28-2024 Glucose measurement, blood Barbara Call MD Work Phone: Start: 12-28-2024 Radiologic exam abdo men 1 view Italo Rasmussen MD Work Phone: Start: 12-28-2024 Thromboplastin time partial plasma/whole blood Armen Cortes MD Work Phone: Start: 12-27-2024 Assay of magnesium Gayathri Mejia [facility] Work Phone: Start: 12-27-2024 Glucose measurement, blood Barbara Call MD Work Phone: Start: 12-27-2024 Thromboplastin time partial plasma/whole blood Armen Cortes MD Work Phone: Start: 12-27-2024 Glucose measurement, blood Barbara Call MD Work Phone: Start: 12-27-2024 Radiologic exam abdo men 1 view Marily Hill MD, MPH Work Phone: Start: 12-27-2024 Thromboplastin time partial plasma/whole blood Armen Cortes MD Work Phone: Start: 12-27-2024 Glucose measurement, blood Barbara Call MD Work Phone: Start: 12-27-2024 Glucose measurement, blood Barbara Call MD Work Phone: Start: 12-27-2024 Thromboplastin time partial plasma/whole blood Armen oCrtes MD Work Phone: Start: 12-27-2024 Prealbumin Daniela R W adriana [facility] Work Phone: Start: 12-27-2024 Assay of magnesium Gayathri donell Alberts [facility] Work Phone: Start: 12-26-2024 Glucose measurement, blood Barbara Call MD Work Phone: Start: 12-26-2024 Thromboplastin time partial plasma/whole blood Armen Cortes MD Work Phone: Start: 12-26-2024 Glucose measurement, blood Barbara Call MD Work Phone: Start: 12-26-2024 Thromboplastin time partial plasma/whole blood Armen Cortes MD Work Phone: Start: 12-26-2024 Radiologic exam abdo men 1 view Marisabel Sanders MD Work Phone: Start: 12-26-2024 Glucose measurement, blood Barbara Call MD Work Phone: Start: 12-26-2024 Thromboplastin time partial plasma/whole blood Armen Crotes MD Work Phone: Start: 12-26-2024 Glucose measurement, blood Barbara Call MD Work Phone: Start: 12-26-2024 Assay of magnesium Gayathri donell Alberts [facility] Work Phone: Start: 12-26-2024 C-reactive protein Rosita Fields MD Work Phone: Start: 12-25-2024 Glucose measurement, blood Barbara Call MD Work Phone: Start: 12-25-2024 Prothrombin time Mauilk Solano MD Work Phone: Start: 12-25-2024 Glucose measurement, blood Barbara Call MD Work Phone: Start: 12-25-2024 Thromboplastin time partial plasma/whole blood Armen Cortes MD Work Phone: Start: 12-25-2024 Glucose measurement, blood Barbara Call MD Work Phone: Start: 12-25-2024 Thromboplastin time partial plasma/whole blood Armen Cortes MD Work Phone: Start: 12-25-2024 Glucose measurement, blood Barbara Call MD Work Phone: Start: 12-25-2024 Assay of magnesium Gayathri Mejia [facility] Work Phone: Start: 12-25-2024 C-reactive protein Rosita Fields MD Work Phone: Start: 12-25-2024 Glucose measurement, blood Barbara Call MD Work Phone: Start: 12-24-2024 Thromboplastin time partial plasma/whole blood Armen Cortes MD Work Phone: Start: 12-24-2024 Glucose measurement, blood Barbara Call MD Work Phone: Start: 12-24-2024 Transthoracic echocardiography Marisabel Cheema ANTHROPOLOGY AND ARCHEOLOGY INSTRUCTOR-OFFSET LABEL REWINDER Work Phone: Start: 12-24-2024 Glucose measurement, blood Barbara Call MD Work Phone: Start: 12-24-2024 Gases blood ph direc t tremayne xcpt pulse oximitry Di Lovett MD Work Phone: Start: 12-24-2024 Gases blood ph direc t tremayne xcpt pulse oximitry Rosita Fields MD Work Phone: Start: 12-24-2024 Assay of magnesium Leni Solano MD Work Phone: Start: 12-24-2024 LORAINE AURIS SCREEN BY PCR Maulik Solano MD Work Phone: Start: 12-24-2024 Hepatic function panel Maulik Solano MD Work Phone: Start: 12-24-2024 Glucose measurement, blood Barbara Call MD Work Phone: Start: 12-24-2024 Calcium ionized Paresh Elizondo MD Work Phone: Start: 12-24-2024 Level v surg patholo gy gross&microscopic exam Barbara Call MD Work Phone: Start: 12-24-2024 Calcium ionized Casa Cazares MD Work Phone: Start: 12-24-2024 End: 12-24-2024 Colct tot abdl w/o prctect w/ileost/ileopxts Barbara Call MD Work Phone: Start: 12-23-2024 Glucose measurement, blood Barbara Call MD Work Phone: Start: 12-23-2024 Glucose measurement, blood Barbara Call MD Work Phone: Start: 12-23-2024 Glucose measurement, blood Barbara Call MD Work Phone: Start: 12-23-2024 Thromboplastin time partial plasma/whole blood Armen Cortes MD Work Phone: Start: 12-23-2024 ABORH TYPE RECONFIRMATION Alanna Willson DO Work Phone: Start: 12-23-2024 Glucose measurement, blood Barbara Call MD Work Phone: Start: 12-23-2024 Antibody screen SELF SE LF Comment on above: Performed By: #### X M #### [facility] (DEFAULT) [address] [place] [address] Start: 12-23-2024 Blood typing serologic abo Jordana Magdaleno MD Work Phone: Start: 12-23-2024 Sedimentation rate r bc automated Mahnaz A [employer] ANTHROPOLOGY AND ARCHEOLOGY INSTRUCTOR-OFFSET LABEL REWINDER Work Phone: Start: 12-23-2024 Assay of magnesium Armen caballero MD Work Phone: Start: 12-23-2024 C-reactive protein Ivett ica A [employer] ANTHROPOLOGY AND ARCHEOLOGY INSTRUCTOR-OFFSET LABEL REWINDER Work Phone: Start: 12-22-2024 Assay of magnesium Armen caballero MD Work Phone: Start: 12-22-2024 Calculation of inter national normalized ratio Dr. Zechariah Siddiqui MD Work Phone: Start: 12-22-2024 Plain chest X-ray Dr. Emma Siddiqui MD Work Phone: Start: 12-22-2024 Blood count smear mc rscp w/mnl difrntl wbc count Dr. Zechariah Siddiqui MD Work Phone: Start: 12-22-[address] Zechariah Siddiqui MD Work Phone: Start: 12-22-2024 Mean corpuscular hem oglobin concentration determination Dr. Zechariah Siddiqui MD Work Phone: Start: 12-22-2024 Nucleated red blood cell count procedure Dr. Zechariah Siddiqui MD Work Phone: Start: 12-22-2024 Platelet mean volume determination Dr. Zechariah Siddiqui MD Work Phone: Start: 12-21-2024 Computed tomography of abdomen and pelvis with contrast Dr. Zechariah Siddiqui MD Work Phone: Start: 12-21-2024 Plain X-ray abdomen Dr. Zechariah Siddiqui MD Work Phone: Start: 12-16-2024 Plain X-ray abdomen Dr. Zechariah Siddiqui MD Work Phone: Start: 12-15-[address] Zechariah Siddiqui MD Work Phone: Start: 12-13-[address] Shady Siddiqui MD Work Phone: Start: 12-13-2024 Computed tomography of abdomen and pelvis with contrast Dr. Zechariah Siddiqui MD Work Phone: Start: 12-13-2024 Triacylglycerol lipa se measurement Dr. Zechariah Siddiqui MD Work Phone: Start: 12-07-2024 Lipid 1996 panel - S deysi or Plasma Home Lea RN Start: 11-30-2024 Blood count smear mc rscp w/mnl difrntl wbc count Dr. Zechariah Siddiqui MD Work Phone: Start: 11-30-2024 Mean corpuscular hem oglobin concentration determination Dr. Zechariah Siddiqui MD Work Phone: Start: 11-30-2024 Nucleated red blood cell count procedure Dr. Zechariah Siddiqui MD Work Phone: Start: 11-30-2024 Platelet mean volume determination Dr. Zechariah Siddiqui MD Work Phone: Start: 11-11-2024 X-ray of chest, PA a nd lateral views Dr. Zechariah Siddiqui MD Work Phone: Start: 10-29-2024 Blood count smear mc rscp w/mnl difrntl wbc count Dr. Zechariah Siddiqui MD Work Phone: Start: 10-29-2024 Mean corpuscular hem oglobin concentration determination Dr. Zechariah Siddiqui MD Work Phone: Start: 10-29-2024 Nucleated red blood cell count procedure Dr. Zechariah Siddiqui MD Work Phone: Start: 10-29-2024 Platelet mean volume determination Dr. Zechariah Siddiqui MD Work Phone: Start: 10-29-[address] Zechariah watkins MD Work Phone: Comment on above: Test Ordered: [id number] OmegaCheck(TM) (EPA+DPA+DHA)OmegaCheck(TM) 4.8 [L ] % by wt CLHRT Reference Range: >5.4Relative Risk: MODIncreasing blood levels of long-chain n-3 fatty acids areassociated with a lower risk of sudden cardiac (1).Based on the top (75th percentile) and bottom (25thpercentile) quartiles of the CHL reference population, thefollowing risk categories were established for OmegaCheck:A cut-off of >=5.5% by wt defines a population at lowrelative risk, 3.8-5.4% by wt defines a population atmoderate relative risk, and <=3.7% by wt defines apopulation at high relative risk of sudden cardiac .The totality of the scientific evidence demonstrates thatwhen consumption of fish oils is limited to 3 g/day or lessof EPA and DHA, there is no significant risk for increasedbleeding time beyond the normal range. A daily dosage of 1gram of EPA and DHA lowers the circulating triglycerides byabout 7-10% within 2 to 3 weeks. (Reference: 1-Paulino et al.NE. 2002; 346: 1150-0231).Effective November 12, 2024, 501621 OmegaCheck(TM) (EPA+DPA+DHA) will be made non-orderable. No replacement number is available. For further information, please contact your local [facility] Student Counselor.Arachidonic Acid/EPA Ratio 22.6 CLHRT Reference Range: 3.7-40.7Omega-6/[place]-3 Ratio 8.3 CLHRT Reference Range: 3.7-14.4Omega-3 total 4.8 % by wt CLHRT Reference Range: .EPA 0.6 % by wt CLHRT Reference Range: 0.2-2.3DPA 1.3 % by wt CLHRT Reference Range: 0.8-1.8DHA 3.0 % by wt CLHRT Reference Range: 1.4-5.1Omega-6 total 39.9 % by wt CLHRT Reference Range: .[facility] measures a number of omega-6 fatty acidswith AA and LA being the two most abundant forms reported.Arachidonic Acid 13.3 % by wt CLHRT Reference Range: 8.6-15.6Linoleic Acid 22.3 % by wt CLHRT Reference Range: 18.6-29.5This test is performed by a Liquid Chromatography-TandemMass Spectrometry (LC/MS/MS) method. This test was developedand its performance characteristics determined by the[facility] It has not been cleared or approvedby the U.S. FDA. The [facility] is regulated underClinical Laboratory Improvement Amendments (CLIA) asqualified to perform high-complexity testing. This test isused for clinical purposes. It should not be regarded asinvestigational or for research.Performed at: [facility] [address] [place] [address] [id number] Director: Angelo Lau MD, Phone: [phone] at: [address] [id number] Director: Samuel Page PhD, Phone: [phone] Start: 10-29-2024 Tri[address]ol lipa se measurement Dr. Zechariah Siddiqui MD Work Phone: Start: 08-20-2024 Computed tomography of abdomen and pelvis with contrast Dr. Zechariah Siddiqui MD Work Phone: Start: 08-12-2024 Measurement of renal function Dr. Zechariah Siddiqui MD Work Phone: Comment on above: GFR Calc Start: 01-09-2023 Plain chest X-ray Start: 07-26-2022 Level iv surg pathol ogy gross&microscopic exam Melyssa Magdaleno MD Work Phone: Start: 07-26-2022 Colonoscopy flx dx w /collj spec when pfrmd Melyssa Magdaleno MD Work Phone: Start: 07-26-2022 Colonoscopy Melyssa Magdaleno MD Work Phone: Start: 02-14-2022 CT of chest Start: 06-08-2021 Colonoscopy Melyssa Magdaleno MD Work Phone: Plan of Treatment Date Care Activity Detail Author Start: 12-07-2029 [facility] Start: 07-26-2027 Colonoscopy COLONOSCOPY [facility] Start: 07-26-2027 COLORECTAL CANCER SCREENING COLORECTAL CANCER SCREENING [facility] Start: 01-07-2026 Finding of potassium level (finding) [facility] Start: 06-15-2025 End: 06-15-2025 ambulatory [facility] Start: 06-15-2025 End: 06-15-2025 Patient encounter procedure 06/15/2025 10:00 AM EST Office Visit [facility] [address] [place] [phone] [facility] Start: 05-06-2025 Hepatic function panel [facility] Start: 04-19-2025 End: 04-19-2025 ambulatory [facility] Start: 04-19-2025 End: 04-19-2025 Patient encounter procedure 04/19/2025 9:30 AM EDT Office Visit [facility] [address] [place] [phone] Mahnaz Lovett, ANTHROPOLOGY AND ARCHEOLOGY INSTRUCTOR-OFFSET LABEL REWINDER [address] [place] [id number] [facility] Start: 03-21-[address] [facility] Start: 03-03-2025 Evaluation of diagnostic study results [facility] Start: 01-26-2025 End: 01-26-2025 ambulatory [facility] Start: 01-07-2025 End: 01-07-2026 HOLTER MONITOR - ANNEALER HELPER [facility] Start: 12-22-2024 Patient discharge [facility] Start: 12-22-2024 [facility] Start: 12-22-2024 Administration of total parenteral nutrition [facility] Start: 12-22-2024 Patient referral to dietitian [facility] Start: 12-21-2024 [facility] Start: 12-20-2024 Care planning and problem solving actions [facility] Start: 12-20-2024 [facility] Start: 12-19-2024 [facility] Start: 12-18-2024 Care planning and problem solving actions [facility] Start: 12-18-2024 Care planning and problem solving actions [facility] Start: 12-18-2024 [facility] Start: 12-17-2024 [facility] Start: 12-16-2024 Referral for physical therapy [facility] Start: 12-16-2024 Referral to occupational therapist [facility] Start: 12-16-2024 Referral to service [facility] Start: 12-16-2024 Care planning and problem solving actions [facility] Start: 12-16-2024 Inhalation therapy procedure [facility] Start: 12-15-2024 End: 12-16-2024 [facility] Start: 12-15-2024 Consultation [facility] Start: 12-14-2024 Care planning and problem solving actions [facility] Start: 12-14-2024 Referral to rn float [facility] Start: 12-14-2024 Continuous positive airway pressure ventilation treatment [facility] Start: 12-13-2024 Following clinical pathway protocol [facility] Start: 12-13-2024 Ambulation without limitation [facility] Start: 12-13-2024 Assessment of risk of venous thromboembolism [facility] Start: 12-13-2024 Insertion of catheter into peripheral vein [facility] Start: 12-13-2024 Measuring intake and output [facility] Start: 12-13-2024 Providing care according to standard [facility] Start: 12-13-2024 Referral to general surgeon [facility] Start: 12-13-2024 Vital signs measurements [facility] Start: 12-13-2024 [facility] Start: 12-13-2024 Verification routine [facility] Start: 12-13-2024 Admission procedure [facility] Start: 12-13-2024 Hospital admission, emergency, from emergency room, medical nature [facility] Start: 12-13-2024 End: 12-14-2024 [facility] Start: 03-21-2024 COVID-19 VACCINE () COVID-19 VACCINE () [facility] Start: 03-21-2024 [facility] Start: 03-21-2023 Covid-19 Vaccine ( season) Covid-19 Vaccine ( season) [facility] Start: 03-21-2023 Influenza vaccination Influenza Vaccine (#1) [facility] Start: 07-21-2022 ADVANCE DIRECTIVE DISCUSSION ADVANCE DIRECTIVE DISCUSSION [facility] Start: 07-21-2022 DEPRESSION ASSESSMENT DEPRESSION ASSESSMENT [facility] Start: 06-08-2022 Colonoscopy COLONOSCOPY [facility] Start: 06-08-2022 COLORECTAL CANCER SCREENING COLORECTAL CANCER SCREENING [facility] Start: 06-08-2022 Screening for malignant neoplasm of colon [facility] Start: 07-21-2021 ADVANCE DIRECTIVE DISCUSSION ADVANCE DIRECTIVE DISCUSSION [facility] Start: 07-21-2021 DEPRESSION ASSESSMENT DEPRESSION ASSESSMENT [facility] Start: 2018 Abdominal aortic aneurysm screening [facility] Start: 2013 RSV Vaccine (1 - 1-dose 60+ series) RSV Vaccine (1 - 1-dose 60+ series) [facility] Start: 2013 RSV VACCINE (1 - Risk 60-74 years 1-dose series) RSV VACCINE (1 - Risk 60-74 years 1-dose series) [facility] Start: 2013 [facility] Start: 2003 Zoster vaccine hzv live for subcutaneous use ZOSTER (SHINGLES) VACCINE (1 of 2) [facility] Start: 2003 [facility] Start: 1998 COLOGUARD (FIT-DNA) COLOGUARD (FIT-DNA) [facility] Start: [address] COLONOGRAPHY [facility] Start: 1998 DIABETES SCREEN DIABETES SCREEN [facility] Start: 1998 Diabetes Screening Diabetes Screening [facility] Start: 1998 FECAL OCCULT BLOOD FECAL OCCULT BLOOD [facility] Start: 1998 SIGMOIDOSCOPY SIGMOIDOSCOPY [facility] Start: 1988 Lipid 1996 panel - Serum or Plasma Lipid Screening [facility] Start: 1988 LIPID SCREEN LIPID SCREEN [facility] Start: 1972 Pneumococcal vaccination [facility] Start: 1972 SHINGRIX VACCINE (1 of 2) SHINGRIX VACCINE (1 of 2) [facility] Start: 1972 Third diphtheria, tetanus and acellular pertussis (DTaP) vaccination [facility] Start: 1972 Urine microalbumin profile [facility] Start: 1971 HEPATITIS C SCREENING HEPATITIS C SCREENING [facility] Start: 1959 PNEUMOCOCCAL: 65+ (1 - PCV) PNEUMOCOCCAL: 65+ (1 - PCV) [facility] Start: 1953 ABDOMINAL AORTIC ANEURYSM SCREENING ABDOMINAL AORTIC ANEURYSM SCREENING [facility] Start: [address] [facility] Start: [address] [facility] Ephys evl trnsptl tx atrial fib isolat pulm vein ABLATION SCHED INTERCARDIAC A-FIB TRANSEPTAL BY PULM VEIN ISOLATION W/EP EVAL (31612) Atrial fibrillation, unspecified type OS ROSS EP End: 01-07-[address] [facility] Patient referral [facility] Work Phone: End: 05-24-2023 Screening colonoscopy COLONOSCOPY SCREENING Endoscopy Routine History of colonic polyps 1 Occurrences starting 05/24/2022 until 05/24/2023 [facility] Work Phone: Comment on above: 1 Occurrences starting 05/24/2022 until 05/24/2023 End: 01-04-2025 Standard ECG [facility] Carotid arteries [facility] Carotid [facility] Heart [facility] Heart limited [facility] Immunizations Immunization Date Immunization Notes Care Provider Fa cility 05-17-2022 influenza virus vacc ine, unspecified formulation Melyssa Magdaleno MD Work Phone: [facility] Payers Date Payer Category Payer Self-pay [id number] 2022 Medicare (Managed Care) 1.2. [id number] 2021 Medicare [id number] 2021 Private Health Insurance [id number] 1953 Unknown [id number] 2.16.840.1.163064.3.579.2.5 94 1953 Unknown [id number] 2.16.840.1.220336.3.579.2.5 94 1953 Unknown [id number] 2..840.1.320076.3.579.2.5 94 1953 Unknown [id number] 2.840.1.095766.3.579.2.5 94 1953 Unknown [id number] 2.840.1.999642.3.579.2.5 94 1953 Unknown [id number] 2.16.840.1.073232.3.579.2.5 94 Medicare [id number] Private Health Insurance [facility] [id number] Unknown [id number] Unknown [id number] 2.16.840.1.991823.3.579.2.4 62 Unknown [id number] 2.16.840.1.473522.3.579.2.4 62 Unknown [id number] 2.16.840.1.984115.3.579.2.4 62 Unknown [id number] 2.16.840.1.623022.3.579.2.4 62 Unknown [id number] 2.16.840.1.438592.3.579.2.4 62 Unknown [id number] 2.16.840.1.992830.3.579.2.4 62 Unknown [id number] 2.16.840.1.260350.3.579.2.4 62 Unknown [id number] 2.16.840.1.668633.3.579.2.4 62 Unknown [id number] 2.16.840.1.659475.3.579.2.4 62 Unknown [id number] 2.16.840.1.390224.3.579.2.4 62 Unknown [id number] 2.16.840.1.014280.3.579.2.4 62 Unknown [id number] 2.16.840.1.109315.3.579.2.4 62 Unknown [id number] 2.16.840.1.442984.3.579.2.4 62 Unknown [id number] 2.16.840.1.317691.3.579.2.4 62 Unknown [id number] 2.16.840.1.922581.3.579.2.4 62 Unknown [id number] 2.16.840.1.117059.3.579.2.4 62 Unknown [id number] 2.16.840.1.617060.3.579.2.4 62 Unknown [id number] 2.16.840.1.277566.3.579.2.4 62 Unknown [id number] 2.16.840.1.893591.3.579.2.4 62 Unknown [id number] 2.16.840.1.332463.3.579.2.4 62 Unknown [id number] 2.16.840.1.931565.3.579.2.4 62 Unknown [id number] 2.16.840.1.520180.3.579.2.4 62 Unknown [id number] 2.16.840.1.562304.3.579.2.4 62 Unknown [id number] 2.16.840.1.693173.3.579.2.4 62 Unknown [id number] 2.16.840.1.079775.3.579.2.4 62 Unknown [id number] 2.16.840.1.191136.3.579.2.4 62 Unknown [id number] 2.16.840.1.210497.3.579.2.4 62 Unknown [id number] 2.16.840.1.561199.3.579.2.4 62 Unknown [id number] 2.16.840.1.134401.3.579.2.4 62 Unknown [id number] 2.16.840.1.081752.3.579.2.4 62 Unknown [id number] 2.16.840.1.041094.3.579.2.4 62 Unknown [id number] 2.16.840.1.343798.3.579.2.4 62 Unknown [id number] 2.16.840.1.605364.3.579.2.4 62 Unknown [id number] 2.16.840.1.898127.3.579.2.4 62 Unknown [id number] 2.16.840.1.385953.3.579.2.4 62 Unknown [id number] 2.16.840.1.018119.3.579.2.4 62 Unknown [id number] 2.16.840.1.681189.3.579.2.4 62 Unknown [id number] 2.16.840.1.317544.3.579.2.4 62 Unknown [id number] 2.16.840.1.555971.3.579.2.4 62 Unknown [id number] 2.16.840.1.195295.3.579.2.4 62 Unknown [id number] 2.16.840.1.691556.3.579.2.4 62 Unknown [id number] 2.16.840.1.647380.3.579.2.4 62 Social History Date Type Detail Facility Start: 11-06-2020 End: 03-20-2023 Tobacco smoking status DCIS Unknown if ever smoked [facility] Start: 11-06-[address] [facility] Start: 1955 Sex Assigned At Male [facility] Start: 05-24-2022 End: 12-13-2024 Tobacco smoking status NHIS Ex-smoker [facility] End: 07-21-2005 History of tobacco use Current smoker [facility] End: 07-21-2005 History of tobacco use Cigarette Smoker [facility] Start: 05-24-2022 End: 12-07-2024 Cigarettes smoked current (pack per day) - Reported 1 [facility] Start: 05-24-2022 End: 12-07-2024 Tobacco use and exposure Smokeless tobacco non-user [facility] Start: 05-24-2022 End: 07-26-2022 Alcohol intake Current drinker of alcohol (finding) [facility] Start: 06-08-2021 [facility] Start: 1955 Sex Assigned At Not on file [facility] Start: 05-14-2022 End: 05-24-2022 Exposure to SARS-CoV-2 (event) Not sure [facility] Start: 07-26-2022 End: 12-07-[address] [facility] National Score (1-10 0), lower number is lower risk Not on file [facility] Start: 11-04-2024 End: 11-23-2024 Sex Male (finding) [facility] Start: 12-07-2024 End: 01-04-2025 Alcoholic beverage intake Ex-drinker (finding) [facility] Start: 12-01-2024 Gender identity Identifies as male gender (finding) [facility] Start: 12-01-2024 Sexual orientation Heterosexual (fin david) [facility] Medical Equipment Procedure Code Equipment Code Equipment Origin al Text Equipment Identifier Dates FESS (functional endoscopic sinus surgery) SEALANT,FLOSEAL HEMOSTATIC 5ML FDA Start: 11-10-2020 FESS (functional endoscopic sinus surgery) SEALANT,FLOSEAL HEMOSTATIC 5ML FDA Start: 11-10-2020 FESS (functional endoscopic sinus surgery) SEALANT,FLOSEAL HEMOSTATIC 5ML FDA Start: 11-10-2020 FESS (functional endoscopic sinus surgery) SEALANT,FLOSEAL HEMOSTATIC 5ML FDA Start: 11-10-2020 FESS (functional endoscopic sinus surgery) SEALANT,FLOSEAL HEMOSTATIC 5ML FDA Start: 11-10-2020 FESS (functional endoscopic sinus surgery) SEALANT,FLOSEAL HEMOSTATIC 5ML FDA Start: 11-10-2020 FESS (functional endoscopic sinus surgery) SEALANT,FLOSEAL HEMOSTATIC 5ML FDA Start: 11-10-2020 FESS (functional endoscopic sinus surgery) SEALANT,FLOSEAL HEMOSTATIC 5ML FDA Start: 11-10-2020 FESS (functional endoscopic sinus surgery) SEALANT,FLOSEAL HEMOSTATIC 5ML FDA Start: 11-10-2020 FESS (functional endoscopic sinus surgery) SEALANT,FLOSEAL HEMOSTATIC 5ML FDA Start: 11-10-2020 FESS (functional endoscopic sinus surgery) FDA Start: 11-10-2020 FESS (functional endoscopic sinus surgery) FDA Start: 11-10-2020 FESS (functional endoscopic sinus surgery) SEALANT,FLOSEAL HEMOSTATIC 5ML FDA Start: 11-10-2020 FESS (functional endoscopic sinus surgery) SEALANT,FLOSEAL HEMOSTATIC 5ML FDA Start: 11-10-2020 FESS (functional endoscopic sinus surgery) SEALANT,FLOSEAL HEMOSTATIC 5ML FDA Start: 11-10-2020 Goals Date Patient Goal Desired Activity /State Functional Status Date Assessment Result Facility 12-22-2024 Are you deaf, or do you have serious difficulty hearing No [facility] 12-22-2024 Are you blind, or do you have serious difficulty seeing, even when wearing glasses No [facility] 12-22-2024 Do you have serious difficulty walking or climbing stairs No [facility] 12-22-2024 Do you have difficul ty dressing or bathing No [facility] 12-22-2024 Because of a physica l, mental, or emotional condition, do you have difficulty doing errands alone such as visiting a physician's office or shopping No [facility] 12-22-2024 Functional status With Assist of 1 [facility] Work Phone: 12-22-2024 Functional status Ambulates;Bath room Privilege [facility] Work Phone: 12-07-2024 Are you deaf, or do you have serious difficulty hearing No 12/07/2024 11:00 AM Machelle Sandhu, SEKOU No [facility] 12-07-2024 Are you blind, or do you have serious difficulty seeing, even when wearing glasses No 12/07/2024 11:00 AM Machelle Sandhu, SEKOU No [facility] 12-07-2024 Do you have serious difficulty walking or climbing stairs No 12/07/2024 11:00 AM Machelle Sandhu, SEKOU No [facility] 12-07-2024 Do you have difficul ty dressing or bathing No 12/07/2024 11:00 AM Machelle Sandhu, SEKOU [facility] 12-07-2024 Because of a physica l, mental, or emotional condition, do you have difficulty doing errands alone such as visiting a physician's office or shopping No 12/07/2024 11:00 AM Machelle Sandhu, SEKOU No [facility] Mental Status Date Assessment Result Facility 12-22-2024 Because of a physica l, mental, or emotional condition, do you have serious difficulty concentrating, remembering, or making decisions No [facility] 12-22-2024 Cognitive function Voice/Name [facility] Work Phone: 12-07-2024 Because of a physica l, mental, or emotional condition, do you have serious difficulty concentrating, remembering, or making decisions No 12/07/2024 11:00 AM Machelle Sandhu, SEKOU No [facility] Clinical Notes 05-24-2022 to 05-06-2025 Note Date & Type Note Facility 05-06-2025 Progress note [facility] 05-06-2025 Progress note Note Date/Time May 06, 2025 2:37pm [facility] [address] [place] [address] OFFICE VISIT Date of Service: 05/06/25 MR#: [id number] Acct: [id number] Name: CONRAD OCONNELL Rep #: [id number] : [id number] Provider: IRA Joyner Age/Sex: 70/M Location[place] [facility] [place] Status: Signed Intake Vital Signs 03/03/25 10:14 05/06/25 14:07 Height 5 ft 10 in Weight: 219 lb BP 119/67 Blood Pressure Location Lt brachial Position Sitting Respiration 16 Pulse 71 Pulse Source Monitor Temp 98.2 F Temp Source Temporal Pulse Oximetry (%) 97 Oxygen Delivery Method room air Intake Visit Reasons: Carotid Artery Stenosis Is patient in pain?: No Allergies shellfish derived Allergy (Verified 05/06/25 14:08) Nausea/Vom/Diarrhea Medications ?Medication ?Instructions ?Recorded ?Confirmed ?Type ascorbic acid (vitamin C) 500 mg 2 gm PO DAILY general health 05/05/15 05/06/25 History tablet fluticasone fur. 100 mcg-umeclid 1 ea inhalation DAILY breathing 09/27/20 05/06/25 History 62.5 mcg-vilant 25 mcg inhalat.powder apixaban 5 mg tablet (Eliquis) 5 mg PO BID blood thinn er 03/20/23 05/06/25 History albuterol sulfate 2.5 mg/3 mL 2.5 mg inhalation TID [place] N PRN 12/13/24 05/06/25 History (0.083 %) solution for nebulization bronchospasm ipratropium bromide 21 mcg (0.03 1 - 2 spray intranasa l Q6H PRN PRN 12/13/24 05/06/25 History %) nasal spray allergy symptoms potassium chloride 20 mEq 40 meq PO DAILY potassium 05/06/25 History tablet,extended release(part/cryst) (Klor-Con M) dapagliflozin propanediol 10 mg 10 mg PO DAILY Heart f ailure 12/18/24 05/06/25 History tablet (Farxiga) gabapentin 100 mg capsule 200 mg PO TID 03/03/2505/06 History loperamide 2 mg capsule mg PO DAILY PRN 03/03/25 History amiodarone 200 mg tablet 200 mg PO QDAY #90 tabs 02/1805/06/25 Rx sacubitril 24 mg-valsartan 26 mg 1 tab PO Q12.TCU hear t #180 tabs 05/02/25 05/06/25 Rx tablet (Entresto) furosemide 40 mg tablet 40 mg PO ONCE diuretic 05/0605/06/25 History metoprolol succinate 25 mg 12.5 mg PO ONCE 05/06/25 History tablet,extended release 24 hr rosuvastatin 40 mg tablet 40 mg PO QDAY #30 tabs 05/0605/06/25 Rx Have you fallen in the past year?: No PFSH Medical History LV dysfunction Chronic anticoagulation Abnormal electrocardiogram PAF (paroxysmal atrial fibrillation) Emphysema/COPD Obstructive sleep apnea Depression Essential (primary) hypertension Obesity Benign neoplasm of maxillary sinus Left bundle branch block (LBBB) Surgical History H/O sinus surgery Family History Father Hypertension Colon cancer Mother Breast cancer Social History Smoking Status: Former smoker quit date: 07/21/06 pack-years: 30 alcohol intake: current alcohol intake frequency: holidays/special occasions only HPI HPI HPI: CONRAD OCONNELL, is a 70 M who presents to the office today for evaluation of carotid artery disease as referred from the [facility]. He had carotid duplex 03/28/25 which demonstrated moderate 50-69% stenosis bilaterally. He reports no history of CVA/TIA and does not endorse any concerning focal neurologic symptoms within the last year. He denies any prior knowledge of carotid disease or prior carotid interventions. He also denies any upper or lower extremity claudication and any vertigo, syncope/presyncope, vision changesor other symptoms with upper extremity activity. He does currently take Eliquis due to Afib though notes he has been in NSR sinceAugust so he is hoping to get off the Eliquis pending discussion with cardiology. He had colectomy secondary to Crohn's disease and recurrent abscesses at [facility] in December, and overall he has been feeling and doing much better since then. ROS General General: No weight change, appetite, fatigue, colon cancer, breast cancer or weakness HEENT HEENT: No difficulty swallowing, eye injury, eye surgery, swollen glands or hoarseness Endo Endocrine: No thyroid disease, diabetes mellitus, thyroid cancer, Hair loss, heat intolerance or cold intolerance Skin Skin: No rash or changing moles Musc Musculoskeletal: No back problems, arthritis, rheumatoid arthritis, gout or joint pain Cardio Cardiovascular: Yes heart disease and high blood pressure; No murmur, pacemaker, atrial fibrillation, heart attack, heart stent, palpitations, shortness of breath with exertion or chest pain Psych Psychiatric: No depression, anxiety or hearing voices Resp Respiratory: No shortness of breath, Yes sleep apnea, No cough, Yes COPD, No asthma, Yes emphysema and No wheezing Gastro Gastrointestinal: No abdominal pain, No nausea or vomiting, No diarrhea, No constipation, No blood in stool, No acid reflux, No hemorrhoids, No ulcers, No gallbladder problem and No black,tarry stools Chris Hematologic: Yes blood thinners, No blood disorders, No bleeding, No anemia and No blood clots Neuro Neurologic: No system reviewed and no additional complaints, except as documented, No as per HPI, No abnormal gait, No abnormal hearing, No abnormal movements, No abnormal speech, No behavioral changes, No burning sensations, No confusion, No convulsions, No disequilibrium, No dizziness, No localized weakness, No frequent falls, No headache(s), No lack of coordination, No loss ofvision, No memory loss, Yes numbness, No other visual disturbances, No radicularpain, No restless legs, No sensory deficit, No syncope, Yes tingling, No tremor(s), No weakness and No other Exam Const General: cooperative, healthy appearing, comfortable and no acute distress Orientation: alert, awake and oriented x3 HENMT Head: normocephalic and atraumatic Ears: hearing grossly normal bilaterally and external ears normal Nose: external nose normal Eyes General: appearance normal, both eyes and all related structures EOM: EOM intact bilaterally Neck Neck: normal visual inspection and trachea midline Resp Effort & Inspection: normal respiratory effort, able to speak in complete sentences, no grunting, not labored, no respiratory distress and no retractions Cardio Rate: regular rate Rhythm: regular rhythm Bruits: carotid bruit bilaterally Skin General: no rashes or lesions noted Wounds: no wounds Neuro General: moves all extremities, no focal motor deficits and CN's II-XI intact bilaterally Speech: speech normal Psych Appearance: grossly normal Mental Status: mental status grossly normal Affect: normal affect Speech and Movement: speech and movement normal Attitude: cooperative Coding Level of Care Code Off vis,new,level 3 Diagnoses Bilateral carotid artery stenosis I65.23 Assessment and Plan Assessment and Plan (1) Bilateral carotid artery stenosis: Status: Acute Plan: He has asymptomatic moderate 50-69% bilateral internal carotid stenosis which isbelow the threshold for surgical intervention. Recommend continued surveillance with repeat carotid ultrasound every 6 months. He is currently anticoagulated with Eliquis; if this is discontinued, I recommend starting ASA 81mg daily. I also recommend initiating a high-intensity statin, we discussed the benefits with respect to arterial disease as well as the possible adverse effects and he is agreeable to try. Will start [id number] daily. Will check LFTs in 6 weeks. Plan for return to the office in 1 year, sooner as needed. Orders: Orders Carotid Duplex Ultrasound 6 Months IRA Joyner I65.23 - Occlusion and stenosis of bilateral carotid arteries Liver Profile Today IRA Joyner R94.39 - Abnormal result of other cardiovascular function study Medications: New rosuvastatin 40 mg PO QDAY 30 tabs 5RF IRA Joyner Changed From furosemide 40 mg PO BID 180 tabs 3RF diuretic To furosemide 40 mg PO ONCE IRA Mullen Clinical Quality Measures Falls Risk Screening/Assistive Devices Have you fallen in the past year?: No 05/06/25 1601 <Electronically signed by Park ROTH> Date _ Park ROTH 05/09/25 1109<Electronically signed by Zechariah Kline MD> Cosigner Signature: Date (if applicable) Zechariah Kline MD CC: Dr. Zechariah Siddiqui MD; Dr. Basil Hunter MD ~ [facility] Work Phone: 1(578) 788-519308-14-2025 Evaluation note* Diagnosis Onset Date Resolution Status Admit Date Atrial fibrillation with RVR acute March 03, 2025 10:09am Bilateral carotid bruits acute March 03, 2025 10:09am HFrEF (heart failure with reduced ejection fraction) acute Augus t 2024 10:09am Bilateral carotid artery stenosis acute May 06 1:45pm Elma Osen [facility] Work Phone: 1(206) 672-758206-20-2025 Miscellaneous Notes* Nursing Notes - Rhiannon Doshi RN - 01/07/2025 10:22 PM EDT AVS reviewed with patient and . All questions answered at this time with patient and stating understanding. Pt to crab picker medications from home pharmacy, [facility] in [place]. Reinforced with patient need to contact rn float outpatient as soon as possible to discuss long-term follow-up. Patient discharged to home with home health care. SUKHJINDER faxed to [facility] and report called. * Nursing Notes - Bianka Ann RN - 01/07/2025 6:14 PM EDT PICC line removed per protocol, no bleeding from site. * Plan of Care - Bianka Ann RN - 01/07/2025 6:14 PM EDT Problem: Adult Inpatient Plan of Care Goal: Plan of Care Review 01/07/20251813 by Bianka Ann RN Outcome: Adequate for Discharge 01/07/2025 0916 by Bianka Ann RN Outcome: Progressing Goal: Patient-Specific Goal (Individualized) 01/07/20251813 by Bianka Ann RN Outcome: Adequate for Discharge 01/07/2025 0916 by Bianka Ann RN Outcome: Progressing Goal: Absence of Hospital-Acquired Illness or Injury Outcome: Adequate for Discharge Goal: Optimal Comfort and Wellbeing 01/07/2025 1814 by Bianka Ann RN Outcome: Adequate for Discharge 01/07/2025 0916 by Bianka Ann RN Outcome: Progressing Goal: Readiness for Transition of Care Outcome: Adequate for Discharge Problem: OT - ADLs Goal: Lower Body Dressing - Patient will complete lower body dressing tasks with standby assistanceusing adaptive equipment/compensatory strategies as needed for improved ability to complete self-care activities. Outcome: Adequate for Discharge Goal: Grooming - Patient will complete grooming in standing with contact guard assistance for improved ability to safely complete ADLs. Outcome: Adequate for Discharge Goal: Toileting - Patient will complete toileting task with minimal assistance and adaptive equipment as needed for improved ability to safely complete self- care activities. Outcome: Adequate for Discharge Problem: OT - Transfers Goal: Transfers Supine -> Sit - Patient will perform supine to/from sit with flat bed & no rail and minimal assistance to improve participation in ADLs. Outcome: Adequate for Discharge Goal: Transfers Toilet/ Bedside Commode - Patient will transfer to/from toilet/bedside commode withminimal assistance for improved ability to safely complete ADLs. Outcome: Adequate for Discharge Problem: OT - Endurance Goal: Endurance Functional Task Standing - Patient will engage in standing functional task for 6-8 minutes with contact guard assistance to improve activity tolerance necessary for safe ADL completion at recommended discharge destination. Outcome: Adequate for Discharge Problem: PT - General Goals Goal: Supine <-> Sit Transfers - Patient will perform supine to/from sit transfers with modified independence and with use of hospital bed features in order to improve functional mobility and safety. Outcome: Adequate for Discharge Goal: Sit <-> Stand Transfers - Patient will perform sit to/from stand transfers with modified independence and least restrictive device in order to improve functional mobility and safety. Outcome: Adequate for Discharge Goal: Ambulation - Patient will ambulate 150 feet with modified independence and least restrictive device to improve ability to safely navigate home and community. Outcome: Adequate for Discharge Goal: Stairs - Patient will ascend/descend 3 stairs with modified independence, least restrictive device, and single railing(s) to improve ability to safely navigate home and community. Outcome: Adequate for Discharge Problem: Infection Goal: Absence of Infection Signs and Symptoms 01/07/2025 1814 by Bianka Ann RN Outcome: Adequate for Discharge 01/07/2025 0916 by Bianka Ann RN Outcome: Progressing Problem: Anemia Goal: Anemia Symptom Improvement 01/07/2025 1814 by Bianka Ann RN Outcome: Adequate for Discharge 01/07/2025 0916 by Bianka Ann RN Outcome: Progressing Problem: Dysrhythmia Goal: Normalized Cardiac Rhythm Outcome: Adequate for Discharge * Nursing Notes - Alejandro Ventura RN - 01/07/2025 2:28 PM EDT 01/07/25 1428 Patient Choice for Post-Acute Providers Resumption of care? No Establishing care? Yes Level of care for choice Home Health Care Preferred geographic region Discussed and honored Source of list Aidin Method of delivery In Person Is the provider part of a joint venture or have a financial relationship with discharging hospital?No [facility] Devin Sutton RN, BSN, ACM Clinical Imaging Science Professor * Nursing Notes - Alejandro Ventura RN - 01/07/2025 2:24 PM EDT 01/07/25 1423 Final Discharge Planning Discharge Disposition Nursing Home Facility Services at Discharge DME Final DME Other (comment) CM/SW AVS Portion Completed Yes Community Agency Name(s) For Handoff [facility] Phone For Handoff Fax For Handoff Additional Community Agency Name(s) no Plan Plan Discharge to home with home health. Patient will follow up with Dr. Call as an outpatient. Patient will arrange for transportation at [facility]. Nursing will call report. Walter vac deliveredto the bedside on 01/06/2025. Patient/Family In Agreement With Plan yes Devin Sutton RN, BSN, ACM Clinical Imaging Science Professor * Nursing Notes - Daniela Martines RN - 01/07/2025 2:00 PM EDT Images from the original note were not included. WOC/ET Nursing Consult/Evaluation Note Evaluated Conrad Oconnell for wounds located on midline surgical wound with wound vac therapy and RUQIleostomy with teaching. 69 yo M with h/o HTN, HPL, CAD, HFrEF (EF 40-45%), obesity (BMI 33.6), AF s/p DCCV on tikosyn and eliquis, KIM, COPD, and UC on prednisone 10 mg daily who presented with perforated diverticulitis, s/p washout and drain placement 12/15, c/b c/f uncontrolled perforation/leak, s/p open TAC/end ileostomy, SBR x 2, and UHR 12/24. Postop course c/b AF RVR leading to ICU re-admission 12/27. Description of stoma: Pouch intact from 01/05/25 with no signs of leakage. 100 ml of dark brown thin liquid effluent emptied from pouch. Pouch removed with adhesive remover. Stoma is round, pink and moist, protruding from skin level. Measures 35 mm. MCJ intact. Peristomal skin dry and intact. Cleansed with warm water andclothes. Instruction given during whole procedure with patient. Patient asking appropriate questions. Questions answered. Convatec soft convex pouch cut to fit per patient and applied with heat of hand. Date Date INTRODUCTION / POD 12/27/2412/28 Introduce self and role of WOC team 12/28 12/31 12/30 01/07 Assess pouch and stoma, change pouch if leaking. If ileal conduit, make sure urine is being produced from both stents 12/28 12/31 12/30 01/07 Drop off supplies, teaching information-remove food chart from folder for urostomy patients Set up time/appt for pouch change and lesson POD 2- patient and/or family Date Date LESSON ONE / POD 12/27/2401/07 Pouch change with lesson 12/27/2401/07 Assess stoma, skin and muco cutaneous junction 12/27/2401/07 Demonstrate and teach back how to empty pouch 12/30 revised 12/29 Prescription typed-take image for chart 12/28 01/07 12/29 Signs and symptoms of problems, Interventions, when to call MD 01/07 12/30 Review factors related to medication 12/28 01/07 12/30 Instruct patient on HHC, WOC contact information 12/28 01/07 12/29 12/31 Discuss dietary and fluid guidelines for ostomy Review how to order supplies Date Date LESSON TWO / POD 12/30 01/07 12/29 12/31 Assess pouch adherence and stoma 01/07 12/29 Review signs and symptoms of problems, interventions, when to call MD 01/07 12/31 Review prescription, ordering supplies, WOC follow up (clinic or with MD) Review night drainage connection (urostomy) 01/07 12/29 12/31 Discuss management of gas and odor- 01/07 12/29 Review dietary and fluid guideline 12/30 01/07 12/29 12/31 Discuss convexity and belt if needed Date Date LESSON THREE / POD 01/03 01/07 01/05/ Pouch change with lesson, patient/family assisting 01/03 01/05 Have patient perform most aspects of pouch change-removing, cleansing, cutting, applying if possible 01/03 01/05 Review night drainage, dietary guidelines, signs and symptoms of problems, in If patient has questions regarding ostomies, can call the [place] WO / ET nursing office, . If patient needs to schedule an outpatient appointment with the WO/ ET nurse, they can call at the outpatient ostomy clinic at the [facility]. Ileostomy: Change pouch 1-2x week and as needed. Remove pouch with water moistened wash cloth (do not use bath wipes) or adhesive remover. Cleanse around stoma with water moistened wash cloth and gently pat dry. Apply a Convatec soft convex #[id number]. Pre-warm pouch in hands. Cut pouch to fit stoma. Use heat of the hand for 1 minute over pouch to ensure seal. Please check pouch often and empty of flatus or stool when 1/3-1/2 full. Empty and measure output. Change pouch when leaking- DO NOT REINFORCE WITH TAPE. Ostomy appliance belt fit: Once the hooks are fastened, the belt should be adjusted so that there'sapprox. enough room to fit two fingers between the belt and the skin. It can be removed while patient is resting or sleeping but is okay to be worn at all times. Supplies are in the room. Description of wound: Removed dressing with adhesive remover and normal saline. All components accounted for. Wound base with moist, red granulation tissue with small area of brown necrosed tissue surrounding intact sutures found centrally. Shayna-wound skin is dry intact. Wound edges open with scant serosanguinous drainage, no odor. Wound and periwound cleansed with Vashe and gauze. Skin barrier film to shayna-wound skin. Transparent tape to superior wound edges to frame wound to protect skin. Stoma ring to distal wound edges and to fill umbilical area to protect skin and assist with seal. Restore silver contact layer x 1 to fill wound bed to protect sutures and for antimicrobial properties. Green home vac foam x 2to fill. Secured with transparent drape. NPWT @-125mmHg. Good seal, no alarms or leaks present. Newcannister changed 01/07, change every 7 days. Patient tolerated the dressing change with PO premedication. Recommendation: continue VAC dressing change MWF per WOC team. Next dressing change 01/10/25. Supply list- - med Black foam - skin barrier spray - silver contact layer - Adhesive remover spray - 2 stoma ring - Vashe wound cleanser ( at bedside) When patient discharges home with a home wound vac, change management manager to home vac immediately prior to discharge. Send patient home with box of supplies including fuel quality tech. Home vac is delivered fully charged. VAC SAFETY ALERT: 1. If wound vac is not functioning greater than 2 hours, remove wound vac dressing and replace withwet to moist gauze until wound can be seen / vac replaced by WOC/RN, RECORDS MANAGEMENT MANAGER or M.D. (heavy moist foam can destroy vital wound bed tissue) 2. If note fresh bright blood (sanguineous drainage) in vac tubing or canister, remove wound vac dressing, contact physician and apply pressure, do not reapply wound vac until wound no longer bleeds (wound vac suction will not allow a clot to form) Optimize nutrition to improve skin and wound outcomes. Increase protein intake as tolerated. Consider supplemental zinc, vitamin C (or multivitamin) to promote wound healing. Bed Surface: Standard mattress Discharge Recommendations: Patient may continue care as described above at discharge. See image(s) below: Luis Skin Assessment: Luis Risk Assessment Sensory Perception: 4-->no impairment Moisture: 3-->occasionally moist Activity: 3-->walks occasionally Mobility: 3-->slightly limited Nutrition: 3-->adequate Friction and Shear: 3-->no apparent problem Luis Score: 19 Luis Score: Luis Score: 19 Body mass index is 33.95 kg/m . Total time spent in assessment and treatment of patient: 90 minutes spent providing patient care. LABS: Albumin Date Value Ref Range Status 12/24/2024 2.6 (L) 3.5 - 5.0 g/dL Final Prealbumin Date Value Ref Range Status 01/03/2025 18 17 - 34 mg/dL Final Wound Documentation: 01/07/25 1000 General Pain Documentation (Adult, OB, Peds) Presence of Pain not present: non-verbal indicator of pain/discomfort Presence of Pain Score (Auto-calculated) 0 Wound Surgical Open Surgical Incision 12/24/24 011 Anterior;Midline Abdomen Date First Assessed/Time First Assessed: 12/24/24112 Primary Wound Type: Surgical Secondary WoundType - Surgical: Open Surgical Incision Incision Type: midline Incision Closure/Dressing: Gauze;ABDWound Description: Fascia closed skin open an... Wound Image Dressing Status Changed/New Closure Sutures Assessment Moist;Red;Granulating Shayna-Wound Assessment Blanchable;Dry;Intact Non-staged Wound Description Full thickness Drainage Amount Small Drainage Characteristics/Odor Bleeding Controlled;Sanguinous;No Odor Treatment Applied wound cleanser, cleansed with $$ Dressing Applied silver contact layer;foam;transparent film Periwound Care Applied wound cleanser, cleansed with;barrier film;hydrocolloid barrier Date Dressing Changed 01/07/25 Negative Pressure Wound Therapy 12/28/24 113 Midline Abdomen Placement Date/Time: 12/28/241134 Inserted by: charmaine Wound Location Orientation: Midline Location: Abdomen Dressing Type foam, black;transparent dressing;other (see comments) (green home wound vac foam) Number of Foam Pieces Used 2 (1 silver contact layer) Cycle Continuous;On Target Pressure (mmHg) 125 Date Dressing Changed 01/07/25 Canister Changed Yes Output (mL) 0 mL Ostomy 12/24/24313 RLQ ileostomy Placement Date/Time: 12/24/24313 Present On Admission : no Ostomy Type: ileostomy Location: RLQ Ileostomy Type: ileostomy Wound Image Stoma Appearance moist;pink;protruding above skin level Peristomal Assessment clean;dry;intact Stomal Appliance changed;1-piece;intact;per protocol/policy Date Appliance Changed 01/07/25 Treatment cleansed with water;convex wafer Stoma Function stool;flatus Tolerance no signs/symptoms of discomfort Stool Output (mL) 100 Plan Problem ileostomy, marked;surgical wound Current Plan home NPWT;lesson, fourth;silver contact;WOC to change Supportive Measures optimize nutrition WOCT Visit Frequency Mon;Fri;Fri Last Date Seen 01/07/25 RN notified of assessment and plan. Please page #[phone] or reconsult with any further needs. Daniela Martines RN * Nursing Notes - Bianka Ann RN - 01/07/2025 10:24 AM EDT paged and messaged via [facility] re: tele orders. * Plan of Care - Bianka Ann RN - 01/07/2025 9:16 AM EDT Problem: Adult Inpatient Plan of Care Goal: Plan of Care Review Outcome: Progressing Goal: Patient-Specific Goal (Individualized) Outcome: Progressing Goal: Optimal Comfort and Wellbeing Outcome: Progressing Problem: Infection Goal: Absence of Infection Signs and Symptoms Outcome: Progressing Problem: Anemia Goal: Anemia Symptom Improvement Outcome: Progressing * Nursing Notes - Rhiannon Doshi RN - 01/07/2025 3:39 AM EDT Patient blood pressure 83/61 MAP 68 and HR 116. Patient asymptomatic at this time. Italo Rasmussen MD notified of vital signs. * Plan of Care - Rhiannon Doshi RN - 01/07/2025 2:35 AM EDT Problem: Adult Inpatient Plan of Care Goal: Plan of Care Review Outcome: Progressing Flowsheets (Taken 01/07/2025 0235) Progress: improving Plan of Care Reviewed With: patient Goal: Absence of Hospital-Acquired Illness or Injury Outcome: Progressing Goal: Optimal Comfort and Wellbeing Outcome: Progressing Goal: Readiness for Transition of Care Outcome: Progressing Problem: Infection Goal: Absence of Infection Signs and Symptoms Outcome: Progressing Problem: Dysrhythmia Goal: Normalized Cardiac Rhythm Outcome: Not Progressing * Plan of Care - Meghan Beltran Mba, RN - 01/06/2025 5:20 PM EDT Problem: Adult Inpatient Plan of Care Goal: Plan of Care Review Outcome: Progressing Goal: Patient-Specific Goal (Individualized) Outcome: Progressing Goal: Absence of Hospital-Acquired Illness or Injury Outcome: Progressing Goal: Optimal Comfort and Wellbeing Outcome: Progressing Goal: Readiness for Transition of Care Outcome: Progressing Problem: Infection Goal: Absence of Infection Signs and Symptoms Outcome: Progressing Intervention: Prevent or Manage Infection Flowsheets (Taken 01/06/2025 0837) Fever Reduction/Comfort Measures: lightweight bedding lightweight clothing Problem: Dysrhythmia Goal: Normalized Cardiac Rhythm Outcome: Not Progressing Intervention: Monitor and Manage Cardiac Rhythm Effect Flowsheets Taken 01/06/2025 1719 Dysrhythmia Management: (Cardioversion and CT scheduled for tomorrow) other (see comments) Taken 01/06/2025 0837 VTE Prevention/Management: On - SCD N/A - Pt. Ambulating (NO orders for mechanical/pharmacological VTE prophylaxis) * Plan of Care - Fausto Carvajal MD - 01/06/2025 12:49 PM EDT ELECTROPHYSIOLOGY PLAN OF CARE: The patient remains in atrial fibrillation this morning with poorly controlled rates to the 140s and some soft blood pressures overnight. The patient states that he has been feeling OK but endorsessome lightheadedness, mainly with changes in position. He attributes this to the metoprolol. He is anxious to get home, but is willing to stay in house for cardioversion. Briefly, the patient was admitted on 12/22 for colonic perforation in the setting of underlying UC. He had been seen by our team on 12/23 regarding his home dofetilide dosing. At the time of our initial assessment, the patient was in atrial fibrillation, after having brief quaker of sinus rhythms/p DCCV and tikosyn loading on 12/[address] Valencia. At the time of our team's initial assessment, we had recommended that his home dofetilide be switched to amiodarone 200mg for rate control in the setting of contraindications to additional AV adriana blockers with upcoming surgery and anticipated temporary discontinuation of his anticoagulation. 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 During his ICU stay, the patient had atrial fibrillation with RVR and received several amiodarone boluses with eventual conversion to normal sinus rhythm as of 12/27.He had a recurrence of atrial fibrillation with RVR overnight on 12/28, treated with amiodarone gtt and eventually converted to sinus rhythm. It appears that he had converted to sinus rhythm before 12/31 and was off of telemetry from 12/31 until recurrence was noted on 01/05. The patient's anticoagulation had been resumed with heparin on the and transitioned to his home eliquis on the . Given that this patient has had several recurrent episodes of atrial fibrillation with intermittentdisruption in his anticoagulation during his hospitalization, we will need clearance of his left atrial appendage prior to cardioversion. I discussed with the patient that, since he has been loaded on amiodarone and is recovered from his acute illness, it would be reasonable to attempt to restore sinus rhythm at this time. Ultimately, he will likely need ablation, which can only be performed as an outpatient. The patient and his voiced understanding and he is willing to undergo attempted DCCV tomorrow if his appendage is clear of thrombus. All questions answered. -- CTPV in the AM -- DCCV if no KATINA thrombus -- Continue amiodarone 200mg daily -- Continue eliquis 5mg BID -- 2 week monitor on discharge -- EP follow up for a fib ablation -- Remainder of care per primary team Fausto Carvajal MD, [facility] Cardiovascular Medicine Fellow [facility] [email or web address] * Plan of Care - Zhang Zelaya RN - 01/06/2025 1:29 AM EDT Problem: Adult Inpatient Plan of Care Goal: Plan of Care Review Outcome: Progressing Goal: Patient-Specific Goal (Individualized) Outcome: Progressing Goal: Absence of Hospital-Acquired Illness or Injury Outcome: Progressing Goal: Optimal Comfort and Wellbeing Outcome: Progressing Goal: Readiness for Transition of Care Outcome: Progressing Problem: Infection Goal: Absence of Infection Signs and Symptoms Outcome: Progressing Problem: Anemia Goal: Anemia Symptom Improvement Outcome: Progressing * Nursing Notes - Zhang Zelaya RN - 01/06/2025 12:27 AM EDT Valery Puckett MD K10E, 1038/A, Anish, Info: Patient has a BP of 75/56 and HR of 130 but a recheck of 82/54 and a HR of 106. Patient denied chest pain, SOB or any other symptoms, Zhang Zelaya RN, Ph: [phone] Zhang Zelaya RN * Plan of Care - Meghan Beltran Mba, RN - 01/05/2025 7:39 PM EDT Problem: Adult Inpatient Plan of Care Goal: Plan of Care Review Outcome: Progressing Goal: Patient-Specific Goal (Individualized) Outcome: Progressing Goal: Absence of Hospital-Acquired Illness or Injury Outcome: Progressing Goal: Optimal Comfort and Wellbeing Outcome: Progressing Goal: Readiness for Transition of Care Outcome: Progressing Problem: Infection Goal: Absence of Infection Signs and Symptoms Outcome: Progressing Intervention: Prevent or Manage Infection Flowsheets (Taken 01/05/2025 1938) Fever Reduction/Comfort Measures: lightweight bedding lightweight clothing Problem: Dysrhythmia Goal: Normalized Cardiac Rhythm Intervention: Monitor and Manage Cardiac Rhythm Effect Flowsheets (Taken 01/05/2025 0845) VTE Prevention/Management: On - SCD N/A - Pt. Ambulating (NO orders for mechanical/pharmacological VTE prophylaxis) Note: Metoprolol given as directed per provider. * Nursing Notes - Meghan Beltran Mba, RN - 01/05/2025 7:36 PM EDT Images from the original note were not included. A dual assessment of skin condition was performed by this keno writer / runner and SEKOU Mcfadden. Skin Assessment: Skin not within defined limits. - Photo taken and uploaded into notes in [facility]: Yes Incisions from surgery, Buttocks red, blanchable Luis Score: 19 LDA Added:No Meghan Beltran Mba, RN * Nursing Notes - Nadeen Frias RN - 01/05/2025 6:28 PM EDT Leena BAY:K10E, 1038 Anish, Afib with RVR, HR fluctuates 110-140's, BP 98/58, bedside nurse has beenpushing Lopressor as ordered, not improved, are we doing anything like drips, does he need close monitoring? please advise. Thanks [phone] * Plan of Care - Yamilka Zambrano RD - 01/05/2025 1:25 PM EDT Problem: Parenteral Nutrition Goal: Effective Intravenous Nutrition Therapy Delivery Outcome: Completed Nutrition Recommendations and Plan of Care: Continue with Regular/Low Fiber Diet as tolerated. Pt declines any further ONS at this time. Monitor/encourage PO intake. Monitor GI function, skin integrity, weight changes, and labs. RD to continue to follow. * Nursing Notes - Meghan Beltran Mba, RN - 01/05/2025 11:45 AM EDT Patient's VS at 11:21 01/05/25 1121 Vital Signs Temp 97.4 F (36.3 C) Temp source Oral Pulse (Heart Rate) 113 Heart Rate Source Monitor Resp Rate 16 BP 97/66 MAP (mmHg) 77 mmHg BP Method Automatic BP Location Right arm BP Position Lying O2 Sat (%) 95 % LOC/Significant Event RASS (Cruz Agitation-Sedation Scale) 0-->alert and calm Re-checked after 15 minutes 01/05/25 1137 Vital Signs Pulse (Heart Rate) 118 BP 100/59 MAP (mmHg) 73 mmHg Patient asymptomatic at the moment. Denies any pain, nausea or SOB. Provider notified. Patient VS re-checked at 1314: 01/05/25 1314 Vital Signs Temp 99 F (37.2 C) Temp source Oral Pulse (Heart Rate) 146 Heart Rate Source Monitor Resp Rate 16 BP 104/80 MAP (mmHg) 88 mmHg BP Method Automatic BP Location Right arm BP Position Lying O2 Sat (%) 96 % Provider notified. EKG showcased Afib with RVR. Patient asymptomatic. Tele started for the patient. 5mg of Metoprolol IV given at 13:33. HR at around 14:00 currently at the 120s. Provider notified. Patient's VS [id number]: 01/05/25 1425 Vital Signs Temp 98.4 F (36.9 C) Temp source Oral Pulse (Heart Rate) 127 Heart Rate Source Monitor Resp Rate 18 BP 102/63 MAP (mmHg) 77 mmHg BP Method Automatic BP Location Right arm BP Position Lying O2 Sat (%) 96 % Provider notified. Another 5 mg of IV metoprolol given at 1434 per provider's request. Current VS at 1511 01/05/25 1511 Vital Signs Pulse (Heart Rate) 135 Heart Rate Source Monitor BP 91/58 MAP (mmHg) 68 mmHg Provider notified. * Nursing Notes - Yessica Martinez RN - 01/05/2025 10:15 AM EDT Images from the original note were not included. WOC/ET Nursing Consult/Evaluation Note Evaluated Conrad Oconnell for wound vac placement to midline abdominal incision. Patient currently being followed for RLQ Ileostomy established on 12/23/24. See H&P and surgery notes for more information. Description of wound: Removed dressing with adhesive remover and normal saline. All components accounted for. Wound base with moist, red granulation tissue with small area of brown necrosed tissue surrounding intact sutures found centrally. Shayna-wound skin is dry intact. Wound edges open with scant serosanguinous drainage, no odor. Wound and periwound cleansed with Vashe and gauze. Skin barrier film to shayna-wound skin. Transparent tape to superior wound edges to frame wound to protect skin. Stoma ring to distal wound edges and to fill umbilical area to protect skin and assist with seal. Restore silver contact layer x 1 to fill wound bed to protect sutures and for antimicrobial properties. Black foam x 2 to fill.Secured with transparent drape. NPWT @-125mmHg. Good seal, no alarms or leaks present. New cannister changed 01/03, change every 7 days. Patient tolerated the dressing change with PO premedication. Recommendation: continue VAC dressing change MWF per WOC team. Next dressing change 01/07/25. Supply list- - med Black foam - skin barrier spray - silver contact layer - Adhesive remover spray - 2 stoma ring - Vashe wound cleanser ( at bedside) Patient and educated on wound vac application and indications/therapies. When patient discharges home with a home wound vac, change management manager to home vac immediately prior to discharge. Send patient home with box of supplies including fuel quality tech. Home vac is delivered fully charged. Patient was approved for Rotec vac. To switch to home vac bedside RN will need to change track pad of dressing and apply track pad from supplies in home vac box. Page [phone] for assistance if needed. VAC SAFETY ALERT: 1. If wound vac is not functioning greater than 2 hours, remove wound vac dressing and replace withwet to moist gauze until wound can be seen / vac replaced by WOC/RN, RECORDS MANAGEMENT MANAGER or M.D. (heavy moist foam can destroy vital wound bed tissue) 2. If note fresh bright blood (sanguineous drainage) in vac tubing or canister, remove wound vac dressing, contact physician and apply pressure, do not reapply wound vac until wound no longer bleeds (wound vac suction will not allow a clot to form) Description of stoma: Pouch intact from 01/03/25 with no signs of leakage. Pouch with small amount of mushy brown effluentpresent, flatus present in pouch. Patient participated in pouch emptying this date. Pouch removed with adhesive remover. Stoma is round, pink and moist, protruding from skin level. Measures 38 mm. MCJ intact, small area of slough to distal portion. Peristomal skin dry and intact. Cleansed with warmwater and dried .Patient hands on with pouch change this date, had some trouble with pouch placement due to not being able to see. Patient asking appropriate questions. Convatec soft convex pouch cutto fit per patient and applied with heat of hand. Patient given a traced pouch to practice cutting with ostomy scissors, patient able to cut pouch with ostomy scissors. Patient states he feels comfortable with ostomy care in future. WOC team to follow. Date Date INTRODUCTION / POD 12/27/2412/28 Introduce self and role of WOC team 12/28 12/31 12/30 Assess pouch and stoma, change pouch if leaking. If ileal conduit, make sure urine is being produced from both stents 12/28 12/31 12/30 Drop off supplies, teaching information-remove food chart from folder for urostomy patients Set up time/appt for pouch change and lesson POD 2- patient and/or family Date Date LESSON ONE / POD 12/27/2412/29 Pouch change with lesson 12/27/2412/29 Assess stoma, skin and muco cutaneous junction 12/27/2412/30 Demonstrate and teach back how to empty pouch 12/30 revised 12/29 Prescription typed-take image for chart 12/28 12/29 Signs and symptoms of problems, Interventions, when to call MD 12/30 Review factors related to medication 12/28 12/30 Instruct patient on HHC, WOC contact information 12/28 12/29 12/31 Discuss dietary and fluid guidelines for ostomy Review how to order supplies Date Date LESSON TWO / POD 12/30 12/29 12/31 Assess pouch adherence and stoma 12/29 Review signs and symptoms of problems, interventions, when to call MD 12/31 Review prescription, ordering supplies, WOC follow up (clinic or with MD) Review night drainage connection (urostomy) 12/29 12/31 Discuss management of gas and odor- 12/29 Review dietary and fluid guideline 12/30 12/29 12/31 Discuss convexity and belt if needed Date Date LESSON THREE / POD 01/03 01/05/ Pouch change with lesson, patient/family assisting 01/03 01/05 Have patient perform most aspects of pouch change-removing, cleansing, cutting, applying if possible 01/03 01/05 Review night drainage, dietary guidelines, signs and symptoms of problems, in If patient has questions regarding ostomies, can call the [place] WO / ET nursing office, . If patient needs to schedule an outpatient appointment with the WOC/ ET nurse, they can call at the outpatient ostomy clinic at the [facility]. Ileostomy: Change pouch 1-2x week and as needed. Remove pouch with water moistened wash cloth (do not use bath wipes) or adhesive remover. Cleanse around stoma with water moistened wash cloth and gently pat dry. Apply a Convatec soft convex #[id number]. Pre-warm pouch in hands. Cut pouch to fit stoma. Use heat of the hand for 1 minute over pouch to ensure seal. Please check pouch often and empty of flatus or stool when 1/3-1/2 full. Empty and measure output. Change pouch when leaking- DO NOT REINFORCE WITH TAPE. Ostomy appliance belt fit: Once the hooks are fastened, the belt should be adjusted so that there'sapprox. enough room to fit two fingers between the belt and the skin. It can be removed while patient is resting or sleeping but is okay to be worn at all times. Supplies are in the room. Optimize nutrition to improve skin and wound outcomes. Increase protein intake as tolerated. Consider supplemental zinc, vitamin C (or multivitamin) to promote wound healing. Bed Surface: Standard mattress Discharge Recommendations: Patient may continue care as described above at discharge. See image(s) below: Luis Skin Assessment: Luis Risk Assessment Sensory Perception: 4-->no impairment Moisture: 3-->occasionally moist Activity: 3-->walks occasionally Mobility: 3-->slightly limited Nutrition: 3-->adequate Friction and Shear: 3-->no apparent problem Luis Score: 19 Luis Score: Luis Score: 19 Body mass index is 33.95 kg/m . Total time spent in assessment and treatment of patient: 65 minutes spent providing patient care. LABS: Albumin Date Value Ref Range Status 12/24/2024 2.6 (L) 3.5 - 5.0 g/dL Final Prealbumin Date Value Ref Range Status 01/03/2025 18 17 - 34 mg/dL Final Wound Documentation: 01/05/25 0930 Wound Surgical Open Surgical Incision 12/24/24 011 Anterior;Midline Abdomen Date First Assessed/Time First Assessed: 12/24/24112 Primary Wound Type: Surgical Secondary WoundType - Surgical: Open Surgical Incision Incision Type: midline Incision Closure/Dressing: Gauze;ABDWound Description: Fascia closed skin open an... Wound Image Dressing Status Changed/New;New drainage Assessment Bleeding;Drainage;Granulating;Moist;[place];Red;Slough Shayna-Wound Assessment Blanchable;Clean;Dry;Intact Non-staged Wound Description Full thickness Drainage Amount Small Drainage Characteristics/Odor Serosanguinous;No Odor;Bleeding Controlled Treatment Applied wound cleanser, cleansed with $$ Dressing Applied foam;transparent film Periwound Care Applied wound cleanser, cleansed with;barrier film;hydrocolloid barrier Date Dressing Changed 01/05/25 Negative Pressure Wound Therapy 12/28/24 1135 Midline Abdomen Placement Date/Time: 12/28/24 113 Inserted by: charmaine Wound Location Orientation: Midline Location: Abdomen NPWT Unit Type subsequent non-disposable >50 sq cm Dressing Type foam, black;transparent dressing Number of Foam Pieces Used 2 (2 black 1 silver contact layer) Cycle Continuous;On Target Pressure (mmHg) 125 Date Dressing Changed 01/05/25 Canister Changed No Ostomy 12/24/24313 RLQ ileostomy Placement Date/Time: 12/24/24313 Present On Admission : no Ostomy Type: ileostomy Location: RLQ Ileostomy Type: ileostomy Wound Image Stoma Appearance moist;pink;protruding above skin level Peristomal Assessment clean;dry;intact Stomal Appliance 1-piece;intact;changed;per protocol/policy Date Appliance Changed 01/05/25 Treatment cleansed with water;convex wafer;skin barrier ring Stoma Function flatus;stool Tolerance no signs/symptoms of discomfort;assisted with application change;assisted with stoma care Stool Output (mL) 50 Plan WOCT Visit Frequency Mon;Wed;Fri Last Date Seen 01/05/25 RN notified of assessment and plan. Please page [phone] or reconsult with any further needs. Yessica Martinez RN * Plan of Care - Lesa Barboza RN - 01/05/2025 6:05 AM EDT Problem: Parenteral Nutrition Goal: Effective Intravenous Nutrition Therapy Delivery Outcome: Progressing Problem: Infection Goal: Absence of Infection Signs and Symptoms Outcome: Progressing * Plan of Care - Meghan Beltran Mba, RN - 01/04/2025 7:31 PM EDT Problem: Adult Inpatient Plan of Care Goal: Plan of Care Review Outcome: Progressing Goal: Patient-Specific Goal (Individualized) Outcome: Progressing Goal: Absence of Hospital-Acquired Illness or Injury Outcome: Progressing Goal: Optimal Comfort and Wellbeing Outcome: Progressing Goal: Readiness for Transition of Care Outcome: Progressing Problem: Parenteral Nutrition Goal: Effective Intravenous Nutrition Therapy Delivery Outcome: Progressing Intervention: Optimize Intravenous Nutrition Delivery Flowsheets (Taken 01/04/2025 0850) Medication Review/Management: medications reviewed Intervention: Optimize Nutrition, Fluid and Electrolyte Intake Flowsheets (Taken 01/04/2025 1930) Fluid/Electrolyte Management: fluids provided Glycemic Management: blood glucose monitored Problem: Infection Goal: Absence of Infection Signs and Symptoms Outcome: Not Progressing Intervention: Prevent or Manage Infection Flowsheets Taken 01/04/2025 1930 Infection Management: aseptic technique maintained Taken 01/04/2025 0850 Fever Reduction/Comfort Measures: lightweight bedding lightweight clothing Problem: Anemia Goal: Anemia Symptom Improvement Outcome: Progressing Intervention: Monitor and Manage Anemia Flowsheets (Taken 01/04/2025 0850) Safety Promotion/Fall Prevention: assistive device/personal items within reach clutter-free environment maintained fall prevention program maintained nonskid shoes/slippers when out of bed room organization consistent safety round/check completed mobility aid in reach Note: 1 unit of blood attempted to be administered. Hgb re-checked and back WDL * Nursing Notes - Ramya Farrell RN - 01/04/2025 2:34 PM EDT 01/04/25 1434 Patient Choice for Post-Acute Providers Resumption of care? No Establishing care? Yes Level of care for choice Home Health Care Preferred geographic region Discussed and honored Source of list Aidin List was provided to Patient Method of delivery In Person Is the provider part of a joint venture or have a financial relationship with discharging hospital?No Met with patient at bedside to discuss Aidin generated list of available home healthcare providers.Discussed HH services to be provided, expectation of HH services, confirmed pt is homebound and answered all questions. Patient agreeable to have the below agency provide SN/PT/OT services: [address] [place] [address] SNOW Calle, RN Post-Acute Associate Professor Of History * Nursing Notes - Alejandro Ventura RN - 01/04/2025 1:43 PM EDT 01/04/25 1341 Outlier Review Reviewing for: Outlier Meeting Medical Necessity: Yes Medical Necessity Summary: Per primary team today: Notified by Nursing of subjective dyspnea without hypoxia during first 45 minutes of blood transfusion. Nursing stopped transfusion, supplemental oxygen was applied, EKG and CXR ordered. I arrived to bedside as EKG being initiated. He was hemodynamically stable and 98% on 2lnc. Exam, as documented above, was notable for expiratory wheezing. Pt had just received prn albuterol and was already feeling some symptomatic relief. Home maintenance inhaler was noted to be discontinued on 12/28, reordered. Sent blood/labs for eval transfusion reaction. CXR with no acute process. EKG NSR. Repeat CBC with Hgb >7. Pro-BNP pending. Dispo planning is likely home with HH. Wound vac is ordered. HH referrals are pending. DME referral for ostomy supplies is pending. Barrier(s) Comments: No barriers Intervention: Discussion with team Devin Sutton RN, BSN, ACM Clinical Imaging Science Professor * Plan of Care - Mahnaz Valadez APRN-OFFSET LABEL REWINDER - 01/04/2025 11:49 AM EDT COLORECTAL SURGERY UPDATED PLAN OF CARE NOTE Patient Name: Conrad Oconnell 69 y.o. male Date of Evaluation: 01/04/2025, 11:50 AM ASSESSMENT: Vital Signs: Reviewed: BP 125/59 (BP Location: Right arm, BP Position: Lying) Pulse 86 Temp 98.3 F (36.8 C) (Oral) Resp 18 Ht 1.753 m (5' 9.02) Wt 102.3 kg (225 lb 8 oz) SpO2 98% BMI 33.29 kg/m Smoking Status Former Constitutional: Lying in bed in no acute distress HEENT: Normocephalic, atraumatic, anicteric sclera Neck: Supple Neurological: Awake, alert, follows commands, moves all extremities spontaneously, no gross motor or sensory deficits Cardiovascular: Regular pulse, bilateral radial pulses +2, well perfused with warm extremities, no peripheral edema Pulmonary: Respirations easy and regular, no accessory muscle use, expiratory wheezing noted to auscultation bilaterally GI: Abdomen rounded, soft, non-distended, non-tender to palpation - no rebound, guarding or peritonitis. Stoma pink and above skin level, brown stool in pouch Integumentary: Skin, pink, warm and dry, no obvious rashes or lesions UPDATED PLAN OF CARE: Notified by Nursing of subjective dyspnea without hypoxia during first 45 minutes of blood transfusion. Nursing stopped transfusion, supplemental oxygen was applied, EKG and CXR ordered. I arrived tobedside as EKG being initiated. He was hemodynamically stable and 98% on 2lnc. Exam, as documented above, was notable for expiratory wheezing. Pt had just received prn albuterol and was already feeling some symptomatic relief. Home maintenance inhaler was noted to be discontinued on 12/28, reordered. Sent blood/labs for eval transfusion reaction. CXR with no acute process. EKG NSR. Repeat CBC withHgb >7. Pro-BNP pending. Patient discussed with colorectal team, plan of care discussed, and they are in agreement. Eli Valadez CNP Department of Surgery, Division of Colorectal Surgery For patients located in or [facility] please page [phone] * Nursing Notes - Meghan Beltran Mba, RN - 01/04/2025 10:40 AM EDT Patient had blood products given starting at 0751AM, at around 0815 AM Patient started developing SOB-,Transfusion stopped. RT called for breathing treatment. Provider notified. Charge nurse at the moment notified. VS at 0815 AM after stopping the transfusion: 01/04/25 0815 Vital Signs Temp 97.7 F (36.5 C) Temp source Oral Pulse (Heart Rate) 104 Resp Rate 22 BP (!) 174/92 MAP (mmHg) (!) 125 mmHg BP Method Automatic BP Location Right arm BP Position Lying O2 Sat (%) 98 % Patient stated they felt better after the breathing treatment. EKG started- NSR. VS at 0845 AM: 01/04/25 0845 Vital Signs Pulse (Heart Rate) 93 Resp Rate 20 BP 130/64 MAP (mmHg) 89 mmHg BP Method Automatic BP Location Right arm BP Position Lying O2 Sat (%) 98 % Flow (L/min) 0 Patient appears asymptomatic at the moment. Blood, Post-transfusion reaction paper and labs for post-transfusion reaction returned to the bloodbank. * Plan of Care - Vipin Nguyen OT - 01/04/2025 10:21 AM EDT Problem: OT - ADLs Goal: Grooming - Patient will complete grooming in standing with contact guard assistance for improved ability to safely complete ADLs. Outcome: Progressing Problem: OT - Transfers Goal: Transfers Supine -> Sit - Patient will perform supine to/from sit with flat bed & no rail and minimal assistance to improve participation in ADLs. Outcome: Progressing Goal: Transfers Toilet/ Bedside Commode - Patient will transfer to/from toilet/bedside commode withminimal assistance for improved ability to safely complete ADLs. Outcome: Progressing Problem: OT - Endurance Goal: Endurance Functional Task Standing - Patient will engage in standing functional task for 6-8 minutes with contact guard assistance to improve activity tolerance necessary for safe ADL completion at recommended discharge destination. Outcome: Progressing * Plan of Care - Alfie Carmona PT - 01/03/2025 11:26 AM EDT Problem: PT - General Goals Goal: Supine <-> Sit Transfers - Patient will perform supine to/from sit transfers with modified independence and with use of hospital bed features in order to improve functional mobility and safety. Outcome: Progressing Goal: Sit <-> Stand Transfers - Patient will perform sit to/from stand transfers with modified independence and least restrictive device in order to improve functional mobility and safety. Outcome: Progressing Goal: Ambulation - Patient will ambulate 150 feet with modified independence and least restrictive device to improve ability to safely navigate home and community. Outcome: Progressing Problem: PT - General Goals Goal: Stairs - Patient will ascend/descend 3 stairs with modified independence, least restrictive device, and single railing(s) to improve ability to safely navigate home and community. Outcome: Ongoing * Plan of Care - Vipin Nguyen OT - 01/03/2025 11:07 AM EDT Problem: OT - Transfers Goal: Transfers Supine -> Sit - Patient will perform supine to/from sit with flat bed & no rail and minimal assistance to improve participation in ADLs. Outcome: Progressing Problem: OT - Endurance Goal: Endurance Functional Task Standing - Patient will engage in standing functional task for 6-8 minutes with contact guard assistance to improve activity tolerance necessary for safe ADL completion at recommended discharge destination. Outcome: Progressing * Nursing Notes - Yessica Martinez RN - 01/03/2025 11:00 AM EDT Images from the original note were not included. WOC/ET Nursing Consult/Evaluation Note Evaluated Conrad Oconnell for wound vac placement to midline abdominal incision. Patient currently being followed for RLQ Ileostomy established on 12/23/24. See H&P and surgery notes for more information. Description of wound: Removed dressing with adhesive remover and normal saline. All components accounted for. Wound base with moist, red granulation tissue with small area of brown necrosed tissue surrounding intact sutures found centrally. Shayna-wound skin is dry intact. Wound edges open with scant serosanguinous drainage, no odor. Of note cannister with creamy brown drainage not consistent with cleansed wound. Wound and periwound cleansed with Vashe and gauze. Skin barrier film to shayna-wound skin. Transparent tape to superior wound edges to frame wound to protect skin. Stoma ring to distal wound edges and to fillumbilical area to protect skin and assist with seal. Restore silver contact layer x 1 to fill woundbed to protect sutures and for antimicrobial properties. Black foam x 2 to fill. Secured with transparent drape. NPWT @-125mmHg. Good seal, no alarms or leaks present. New cannister today, change every 7 days. Patient tolerated the dressing change with PO premedication. Recommendation: continue VAC dressing change MWF per WOC team. Next dressing change 01/05/25. Supply list- - med Black foam - skin barrier spray - silver contact layer - Adhesive remover spray - 2 stoma ring - Vashe wound cleanser ( at bedside) Patient and educated on wound vac application and indications/therapies. When patient discharges home with a home wound vac, change management manager to home vac prior to discharge. Send patient home with box of supplies including fuel quality tech. Home vac is delivered fully charged. VAC SAFETY ALERT: 1. If wound vac is not functioning greater than 2 hours, remove wound vac dressing and replace withwet to moist gauze until wound can be seen / vac replaced by WOC/RN, RECORDS MANAGEMENT MANAGER or M.D. (heavy moist foam can destroy vital wound bed tissue) 2. If note fresh bright blood (sanguineous drainage) in vac tubing or canister, remove wound vac dressing, contact physician and apply pressure, do not reapply wound vac until wound no longer bleeds (wound vac suction will not allow a clot to form) Description of stoma: Pouch intact from 12/31/24 with no signs of leakage. Pouch with small amount of mushy brown effluentpresent. Pouch removed with adhesive remover. Stoma is round, pink and moist, protruding from skin level. Measures 38 mm. MCJ intact, small area of slough tp distal portion. Peristomal skin dry and intact. Cleansed with warm water and clothes.Patient hands on with pouch change this date, had some trouble with pouch placement due to not being able to see. Patient asking appropriate questions. Convate soft convex pouch cut to fit per patient and applied with heat of hand. Patient given a traced pouch to practice cutting with ostomy scissors, patient fingers too large for scissors. Patient states he feels comfortable with ostomy care in future. WOC team to follow. Date Date INTRODUCTION / POD 12/27/2412/28 Introduce self and role of WOC team 12/28 12/31 12/30 Assess pouch and stoma, change pouch if leaking. If ileal conduit, make sure urine is being produced from both stents 12/28 12/31 12/30 Drop off supplies, teaching information-remove food chart from folder for urostomy patients Set up time/appt for pouch change and lesson POD 2- patient and/or family Date Date LESSON ONE / POD 12/27/2412/29 Pouch change with lesson 12/27/2412/29 Assess stoma, skin and muco cutaneous junction 12/27/2412/30 Demonstrate and teach back how to empty pouch 12/30 revised 12/29 Prescription typed-take image for chart 12/28 12/29 Signs and symptoms of problems, Interventions, when to call MD 12/30 Review factors related to medication 12/28 12/30 Instruct patient on HHC, WOC contact information 12/28 12/29 12/31 Discuss dietary and fluid guidelines for ostomy Review how to order supplies Date Date LESSON TWO / POD 12/30 12/29 12/31 Assess pouch adherence and stoma 12/29 Review signs and symptoms of problems, interventions, when to call MD 12/31 Review prescription, ordering supplies, WOC follow up (clinic or with MD) Review night drainage connection (urostomy) 12/29 12/31 Discuss management of gas and odor- 12/29 Review dietary and fluid guideline 12/30 12/29 12/31 Discuss convexity and belt if needed Date Date LESSON THREE / POD 01/03 Pouch change with lesson, patient/family assisting 01/03 Have patient perform most aspects of pouch change-removing, cleansing, cutting, applying if possible 01/03 Review night drainage, dietary guidelines, signs and symptoms of problems, in If patient has questions regarding ostomies, can call the [place] WO / ET nursing office, . If patient needs to schedule an outpatient appointment with the WO/ ET nurse, they can call [phone] at the outpatient ostomy clinic at the [facility]. Ileostomy: Change pouch 1-2x week and as needed. Remove pouch with water moistened wash cloth (do not use bath wipes) or adhesive remover. Cleanse around stoma with water moistened wash cloth and gently pat dry. Apply a Convatec soft convex #[id number]. Pre-warm pouch in hands. Cut pouch to fit stoma. Use heat of the hand for 1 minute over pouch to ensure seal. Please check pouch often and empty of flatus or stool when 1/3-1/2 full. Empty and measure output. Change pouch when leaking- DO NOT REINFORCE WITH TAPE. Ostomy appliance belt fit: Once the hooks are fastened, the belt should be adjusted so that there'sapprox. enough room to fit two fingers between the belt and the skin. It can be removed while patient is resting or sleeping but is okay to be worn at all times. Supplies are in the room. Optimize nutrition to improve skin and wound outcomes. Increase protein intake as tolerated. Consider supplemental zinc, vitamin C (or multivitamin) to promote wound healing. Bed Surface: Standard mattress Discharge Recommendations: Patient may continue care as described above at discharge. See image(s) below: Luis Skin Assessment: Luis Risk Assessment Sensory Perception: 3-->slightly limited Moisture: 3-->occasionally moist Activity: 3-->walks occasionally Mobility: 3-->slightly limited Nutrition: 3-->adequate Friction and Shear: 3-->no apparent problem Luis Score: 18 Luis Score: Luis Score: 18 Body mass index is 33.29 kg/m . Total time spent in assessment and treatment of patient: 65 minutes spent providing patient care. LABS: Albumin Date Value Ref Range Status 12/24/2024 2.6 (L) 3.5 - 5.0 g/dL Final Prealbumin Date Value Ref Range Status 01/03/2025 18 17 - 34 mg/dL Final Wound Documentation: 01/03/25 1030 Wound Surgical Open Surgical Incision 12/24/24 011 Anterior;Midline Abdomen Date First Assessed/Time First Assessed: 12/24/24112 Primary Wound Type: Surgical Secondary WoundType - Surgical: Open Surgical Incision Incision Type: midline Incision Closure/Dressing: Gauze;ABDWound Description: Fascia closed skin open an... Wound Image Dressing Status Changed/New Assessment Bleeding;Drainage;Granulating;Moist;[place];Red;Slough Shayna-Wound Assessment Blanchable;Clean;Dry;Intact Non-staged Wound Description Full thickness Wound Length (cm) 14 cm Wound Width (cm) 6 cm Wound Surface Area (cm^2) 84 cm^2 Wound Depth (cm) 2 cm Wound Volume (cm^3) 168 cm^3 Drainage Amount Small Drainage Characteristics/Odor Serosanguinous;No Odor Treatment Applied wound cleanser, cleansed with $$ Dressing Applied foam;silver contact layer;transparent film Periwound Care Applied wound cleanser, cleansed with;barrier film;hydrocolloid barrier Date Dressing Changed 01/03/25 Negative Pressure Wound Therapy 12/28/24 1135 Midline Abdomen Placement Date/Time: 12/28/24 113 Inserted by: charmaine Wound Location Orientation: Midline Location: Abdomen NPWT Unit Type subsequent non-disposable >50 sq cm Dressing Type foam, black;transparent dressing Number of Foam Pieces Used 2 (2 black 1 siver contact layer) Cycle Continuous;On Target Pressure (mmHg) 125 Date Dressing Changed 01/03/25 Canister Changed Yes Output (mL) 50 mL Ostomy 12/24/24313 RLQ ileostomy Placement Date/Time: 12/24/24313 Present On Admission : no Ostomy Type: ileostomy Location: RLQ Ileostomy Type: ileostomy Wound Image Stoma Appearance moist;pink;protruding above skin level Peristomal Assessment clean;dry;intact Stomal Appliance 1-piece;changed;per protocol/policy Date Appliance Changed 01/03/25 Treatment cleansed with water;convex wafer Stoma Function flatus;stool Tolerance no signs/symptoms of discomfort;assisted with application change;assisted with stoma care Stool Output (mL) 25 Plan Current Plan lesson, fourth;ostomy prescription done;NPWT;silver contact;WOC to change Visit Type Consult with RN Supportive Measures optimize nutrition Teaching Material Provided NPWT;wet to moint gauze WOCT Visit Frequency Mon;Fri;Fri Last Date Seen 01/03/25 RN notified of assessment and plan. Please page #[phone] or reconsult with any further needs. Yessica Martinez RN * Nursing Notes - Bonita Campos RN - 01/02/2025 5:42 AM EDT Pt with alert from Sepsis BPA. Had increase in WBC, has had increased pain in R abd/flank area overnight, rating pain 5-6/10, improved with oxycodone and heat packs. Pt associated pain with possiblemuscle strain with increasing activity. Dr Aly notified. Will be coming to bedside to see pt with rounds soon. * Plan of Care - Alfie Carmona, PT - 01/01/2025 9:07 AM EDT Problem: PT - General Goals Goal: Supine <-> Sit Transfers - Patient will perform supine to/from sit transfers with modified independence and with use of hospital bed features in order to improve functional mobility and safety. Outcome: Progressing Goal: Sit <-> Stand Transfers - Patient will perform sit to/from stand transfers with modified independence and least restrictive device in order to improve functional mobility and safety. Outcome: Progressing Goal: Ambulation - Patient will ambulate 150 feet with modified independence and least restrictive device to improve ability to safely navigate home and community. Outcome: Progressing Problem: PT - General Goals Goal: Stairs - Patient will ascend/descend 3 stairs with modified independence, least restrictive device, and single railing(s) to improve ability to safely navigate home and community. Outcome: Ongoing * Plan of Care - Vipin Ngyuen OT - 01/01/2025 9:00 AM EDT Problem: OT - Transfers Goal: Transfers Supine -> Sit - Patient will perform supine to/from sit with flat bed & no rail and minimal assistance to improve participation in ADLs. Outcome: Progressing Goal: Transfers Toilet/ Bedside Commode - Patient will transfer to/from toilet/bedside commode withminimal assistance for improved ability to safely complete ADLs. Outcome: Progressing Problem: OT - Endurance Goal: Endurance Functional Task Standing - Patient will engage in standing functional task for 6-8 minutes with contact guard assistance to improve activity tolerance necessary for safe ADL completion at recommended discharge destination. Outcome: Progressing * Nursing Notes - Aleena Levy RN - 12/31/2024 1:29 PM EDT 1329 Attempted to call report to Yonis Mora. Pt has not yet been assigned an RN for this patient.This RN left name and phone number for someone to call. * Nursing Notes - Daniela Martines RN - 12/31/2024 12:07 PM EDT Images from the original note were not included. WOC/ET Nursing Consult/Evaluation Note Evaluated Conrad Oconnell for wounds located on midline abdomen and LUQ Ileostomy. 69 yo M with h/o HTN, HPL, CAD, HFrEF (EF 40-45%), obesity (BMI 33.6), AF s/p DCCV on tikosyn and eliquis, KIM, COPD, and UC on prednisone 10 mg daily who presented with perforated diverticulitis, s/p washout and drain placement 12/15, c/b c/f uncontrolled perforation/leak, s/p open TAC/end ileostomy, SBR x 2, and UHR 12/24. Postop course c/b AF RVR leading to ICU re-admission 12/27. Description of stoma: Pouch intact from 12/29/24 with no signs of leakage. However, pouch is starting to lift near midlinedue to recent drainage tube placement. 150 ml of dark brown thin liquid effluent emptied from pouch. Pouch removed wit adhesive remover.Stoma is round, pink and moist, protruding from skin level. Measures 38 mm. MCJ intact. Peristomal skin dry and intact. Cleansed with warm water and clothes. Instruction given during whole procedure with patient. Patient asking appropriate questions. Convate soft convex pouch cut to fit per patient and applied with heat of hand. Patient given a traced pouch to practice cutting with ostomy scissors, patient does not like scissors. Patient states he feels comfortable with ostomy care in future. WOC team to follow. Date Date INTRODUCTION / POD 12/27/2412/28 Introduce self and role of WOC team 12/28 12/31 12/30 Assess pouch and stoma, change pouch if leaking. If ileal conduit, make sure urine is being produced from both stents 12/28 12/31 12/30 Drop off supplies, teaching information-remove food chart from folder for urostomy patients Set up time/appt for pouch change and lesson POD 2- patient and/or family Date Date LESSON ONE / POD 12/27/2412/29 Pouch change with lesson 12/27/2412/29 Assess stoma, skin and muco cutaneous junction 12/27/2412/30 Demonstrate and teach back how to empty pouch 12/30 revised 12/29 Prescription typed-take image for chart 12/28 12/29 Signs and symptoms of problems, Interventions, when to call MD 12/30 Review factors related to medication 12/28 12/30 Instruct patient on C, WOC contact information 12/28 12/29 12/31 Discuss dietary and fluid guidelines for ostomy Review how to order supplies Date Date LESSON TWO / POD 12/30 12/29 12/31 Assess pouch adherence and stoma 12/29 Review signs and symptoms of problems, interventions, when to call MD 12/31 Review prescription, ordering supplies, WOC follow up (clinic or with MD) Review night drainage connection (urostomy) 12/29 12/31 Discuss management of gas and odor- 12/29 Review dietary and fluid guideline 12/30 12/29 12/31 Discuss convexity and belt if needed Date Date LESSON THREE / POD Pouch change with lesson, patient/family assisting Have patient perform most aspects of pouch change-removing, cleansing, cutting, applying if possible Review night drainage, dietary guidelines, signs and symptoms of problems, in If patient has questions regarding ostomies, can call the [place] WO / ET nursing office, . If patient needs to schedule an outpatient appointment with the WO/ ET nurse, they can call at the outpatient ostomy clinic at the [facility]. Ileostomy: Change pouch 1-2x week and as needed. Remove pouch with water moistened wash cloth (do not use bath wipes) or adhesive remover. Cleanse around stoma with water moistened wash cloth and gently pat dry. Apply a Convatec soft convex #[id number]. Pre-warm pouch in hands. Cut pouch to fit stoma. Use heat of the hand for 1 minute over pouch to ensure seal. Please check pouch often and empty of flatus or stool when 1/3-1/2 full. Empty and measure output. Change pouch when leaking- DO NOT REINFORCE WITH TAPE. Ostomy appliance belt fit: Once the hooks are fastened, the belt should be adjusted so that there'sapprox. enough room to fit two fingers between the belt and the skin. It can be removed while patient is resting or sleeping but is okay to be worn at all times. Supplies are in the room. Description of wound: Midline abdomen: wound vac removed with adhesive remover. Cleansed wound with VASHE wound cleanser and gauze. Wound bed moist, red/pink. Black sutures noticed in base centrally intact. Granulating and subcutaneous fat noted. Periwound dry and intact. Cavilon skin barrier to periwound. 2 stoma ringapplied to umbilical area to assist with seal. Transparent tape to wound edges to protect skin. Silv er contact layer to base to cover sutures. Black foam x 2 to fill depth and cover wound base. Covered with transparent tape. Trac pad attached, good seal obtained. Therapy initiated at 125 mmHg. Recommend MWF dressing changes. Next dressing change Friday, January 03, 2025. 1 med black foam 1silver contact layer Wound cleanser 2 stoma ring Barrier film Adhesive remover VAC SAFETY ALERT: 1. If wound vac is not functioning greater than 2 hours, remove wound vac dressing and replace withwet to moist gauze until wound can be seen / vac replaced by WOC/RN, RECORDS MANAGEMENT MANAGER or M.D. (heavy moist foam can destroy vital wound bed tissue) 2. If note fresh bright blood (sanguineous drainage) in vac tubing or canister, remove wound vac dressing, contact physician and apply pressure, do not reapply wound vac until wound no longer bleeds (wound vac suction will not allow a clot to form) Bed Surface: Standard mattress with KALANI pump Discharge Recommendations: Patient may continue care as described above at discharge. See image(s) below: Luis Skin Assessment: Luis Risk Assessment Sensory Perception: 3-->slightly limited Moisture: 3-->occasionally moist Activity: 2-->chairfast Mobility: 3-->slightly limited Nutrition: 3-->adequate Friction and Shear: 3-->no apparent problem Luis Score: 17 Luis Score: Luis Score: 17 Body mass index is 33.29 kg/m . Total time spent in assessment and treatment of patient: 50 minutes spent providing patient care. LABS: Albumin Date Value Ref Range Status 12/24/2024 2.6 (L) 3.5 - 5.0 g/dL Final Prealbumin Date Value Ref Range Status 12/27/2024 8 (L) 17 - 34 mg/dL Final Wound Documentation: 12/31/24 1109 Wound Surgical 12/24/24 0113 Anterior;Midline Abdomen Date First Assessed/Time First Assessed: 12/24/24 011 Primary Wound Type: Surgical Incision Type: midline Incision Closure/Dressing: Gauze;ABD Wound Description: Fascia closed skin open and packed with 1 kerlex roll damp Wound Location Orientat... Wound Image Dressing Status Changed/New Closure Sutures Assessment Moist;[place];Red;Painful;Subcutaneous Fat;Granulating Shayna-Wound Assessment Clean;Dry;Intact Non-staged Wound Description Full thickness Drainage Amount Scant Drainage Characteristics/Odor Serosanguinous;No Odor Treatment Applied wound cleanser, cleansed with;other (see comment) (VASHE) $$ Dressing Applied silver contact layer;foam;transparent film Periwound Care Applied wound cleanser, cleansed with;barrier film Date Dressing Changed 12/31/24 Negative Pressure Wound Therapy 12/28/24 113 Midline Abdomen Placement Date/Time: 12/28/241134 Inserted by: charmaine Wound Location Orientation: Midline Location: Abdomen Dressing Type foam, black;transparent dressing Number of Foam Pieces Used 2 (2 black, 1 Ag) Cycle Continuous Target Pressure (mmHg) 125 Date Dressing Changed 12/31/24 Canister Changed No Ostomy 12/24/24313 RLQ ileostomy Placement Date/Time: 12/24/24313 Present On Admission : no Ostomy Type: ileostomy Location: RLQ Ileostomy Type: ileostomy Wound Image Stoma Appearance moist;protruding above skin level;pink;[place] appearance;round Peristomal Assessment dry;intact Stomal Appliance changed;1-piece;intact;per protocol/policy Date Appliance Changed 12/31/24 Treatment cleansed with water Stoma Function stool Tolerance no signs/symptoms of discomfort Stool Output (mL) 175 Plan Problem ileostomy, marked;surgical wound Current Plan lesson, third;needs teaching;NPWT;silver contact;WOC to change Supportive Measures optimize nutrition;turn every 2 hours Teaching Material Provided other (see comment) (reviewed dietary, emptying and changing) WOCT Visit Frequency Mon;Wed;Fri Last Date Seen 12/31/24 RN notified of assessment and plan. Please page #[phone] or reconsult with any further needs. Daniela Martines RN * Nursing Notes - Daniela Maritnes RN - 12/31/2024 10:18 AM EDT WOC/ET Nursing Consult Note: attempted visit, patient needs to be premedicated for wound vac dressing change. Will see at later time after medicated. * Plan of Care - Isrrael Judge RN - 12/31/2024 4:52 AM EDT Problem: Adult Inpatient Plan of Care Goal: Plan of Care Review Outcome: Progressing Goal: Patient-Specific Goal (Individualized) Outcome: Progressing Goal: Absence of Hospital-Acquired Illness or Injury Outcome: Progressing Goal: Optimal Comfort and Wellbeing Outcome: Progressing Goal: Readiness for Transition of Care Outcome: Progressing * Nursing Notes - Barbara Martinez RN - 12/30/2024 6:50 PM EDT On admission to [facility], from another [facility] inpatient unit a dual RN initial assessment of skin conditionwas performed by Barbara Martinez RN and Fe Dorado RN. Skin Assessment: Skin not within defined limits. - Photo taken and uploaded into notes in [facility]IS: Existing LDA on Drains/tubes/surgical wound Luis Score: 16 LDA Added:No Barbara Martinez RN * Nursing Notes - Barbara Martinez RN - 12/30/2024 6:45 PM EDT Received patient from SICU. Alert and oriented x4. Drains secured. NG to LWS. Cont. TPN/IV Amio infusing. VSS. Denies needs at this time.Barbara Martinez RN * Plan of Care - Virginia White RD - 12/30/2024 6:30 PM EDT Problem: Parenteral Nutrition Goal: Effective Intravenous Nutrition Therapy Delivery Outcome: Progressing Note: Recommendation and POC Recommend to continue with current TPN regimen. Tolerating well. Continue with current additives Discussed with iCU team and discontinued accu checks and SSI Will cont to monitor return of GI function. Recommend to transition to EN when appropriate along with p.o diet since pt may not be able to meet nutritional needs just with p.o diet. Recommend to start @ 20 mL/h and advance as tolerated to goal regimen of : EN formula: Vital AF 1.2 @ 80 mL/h to provide 2304 kcal/d ~ 30 kcal/kg and 144 G/d protein ~ 1.9 G/kg - 77 kg. Recommend adding MVI with minerals, 2000 units vitamin D when off PN Add Calcium citrate ~ 1200 mg ( in divided doses) prior to discharge Ileostomy diet education prior to discharge Monitor Vitamin B 12 status and treat as needed * Nursing Notes - Pamela Laboy RN - 12/30/2024 4:22 PM EDT Procedure completed with IR Attending Luis of CT guided peritoneal/retroperitoneal drain placement. Samples obtained intra-procedure and sent to lab for analysis. Post procedure patient to travel to [facility] for post procedure monitoring. See post procedure orders for nursing care and drain care. * Nursing Notes - Daniela Martines RN - 12/30/2024 2:56 PM EDT WOC/ET Nursing Consult/Evaluation Note Evaluated Conrad Oconnell for Ileostomy located in RLQ. 69 yo M with h/o HTN, HPL, CAD, HFrEF (EF 40-45%), obesity (BMI 33.6), AF s/p DCCV on tikosyn and eliquis, KIM, COPD, and UC on prednisone 10 mg daily who presented with perforated diverticulitis, s/p washout and drain placement 12/15, c/b c/f uncontrolled perforation/leak, s/p open TAC/end ileostomy, SBR x 2, and UHR 12/24. Postop course c/b AF RVR leading to ICU re-admission 12/27. Description of stoma: Pouch intact from 12/29/24 with no signs of leakage. 50 ml of dark red/brown thick liquid effluent noted in pouch. Stoma is round, pink and moist, protruding from skin level. Patient states he prefers the Convatec closure on pouch. Patient given a traced pouch to practice cutting with ostomy scissors, patient states he does not like scissors. Given another pouch to cut with hospital scissors. Patient states he prefers. Patient states he feels comfortable with ostomy care in future. WOC team to follow. Date Date INTRODUCTION / POD 12/27/2412/28 Introduce self and role of WOC team 12/28 12/30 Assess pouch and stoma, change pouch if leaking. If ileal conduit, make sure urine is being produced from both stents 12/28 12/30 Drop off supplies, teaching information-remove food chart from folder for urostomy patients Set up time/appt for pouch change and lesson POD 2- patient and/or family Date Date LESSON ONE / POD 12/27/2412/29 Pouch change with lesson 12/27/2412/29 Assess stoma, skin and muco cutaneous junction 12/27/2412/30 Demonstrate and teach back how to empty pouch 12/30 revised 12/29 Prescription typed-take image for chart 12/28 12/29 Signs and symptoms of problems, Interventions, when to call MD 12/30 Review factors related to medication 12/28 12/30 Instruct patient on HHC, WOC contact information 12/28 12/29 Discuss dietary and fluid guidelines for ostomy Review how to order supplies Date Date LESSON TWO / POD 12/30 12/29 Assess pouch adherence and stoma 12/29 Review signs and symptoms of problems, interventions, when to call MD Review prescription, ordering supplies, WOC follow up (clinic or with MD) Review night drainage connection (urostomy) 12/29 Discuss management of gas and odor- 12/29 Review dietary and fluid guideline 12/30 12/29 Discuss convexity and belt if needed Date Date LESSON THREE / POD Pouch change with lesson, patient/family assisting Have patient perform most aspects of pouch change-removing, cleansing, cutting, applying if possible Review night drainage, dietary guidelines, signs and symptoms of problems, in If patient has questions regarding ostomies, can call the [place] WO / ET nursing office, . If patient needs to schedule an outpatient appointment with the WOC/ ET nurse, they can call at the outpatient ostomy clinic at the [facility]. Ileostomy: Change pouch 1-2x week and as needed. Remove pouch with water moistened wash cloth (do not use bath wipes) or adhesive remover. Cleanse around stoma with water moistened wash cloth and gently pat dry. Apply a Convatec soft convex #[id number]. Pre-warm pouch in hands. Cut pouch to fit stoma. Use heat of the hand for 1 minute over pouch to ensure seal. Please check pouch often and empty of flatus or stool when 1/3-1/2 full. Empty and measure output. Change pouch when leaking- DO NOT REINFORCE WITH TAPE. Ostomy appliance belt fit: Once the hooks are fastened, the belt should be adjusted so that there'sapprox. enough room to fit two fingers between the belt and the skin. It can be removed while patient is resting or sleeping but is okay to be worn at all times. Supplies are in the room. Luis Skin Assessment: Luis Risk Assessment Sensory Perception: 3-->slightly limited Moisture: 3-->occasionally moist Activity: 2-->chairfast Mobility: 3-->slightly limited Nutrition: 3-->adequate Friction and Shear: 2-->potential problem Luis Score: 16 Luis Score: Luis Score: 16 Body mass index is 33.65 kg/m . Total time spent in assessment and treatment of patient: 30 minutes spent providing patient care. LABS: Albumin Date Value Ref Range Status 12/24/2024 2.6 (L) 3.5 - 5.0 g/dL Final Prealbumin Date Value Ref Range Status 12/27/2024 8 (L) 17 - 34 mg/dL Final Ostomy Documentation: 12/30/24 1415 Ostomy 12/24/24313 RLQ ileostomy Placement Date/Time: 12/24/24313 Present On Admission : no Ostomy Type: ileostomy Location: RLQ Ileostomy Type: ileostomy Stoma Appearance moist;pink;protruding above skin level Peristomal Assessment TRISTAN Stomal Appliance 1-piece;intact;not leaking Stoma Function stool;other (see comments) (dark bloody) Tolerance no signs/symptoms of discomfort Stool Output (mL) 50 Plan Problem ileostomy, marked;surgical wound Current Plan lesson, third;silver contact;WOC to change;NPWT Supportive Measures optimize nutrition;turn every 2 hours;position off wound WOCT Visit Frequency Fri Last Date Seen 12/30/24 RN notified of assessment and plan. Please page #[phone] or reconsult with any further needs. Daniela Martines RN * Plan of Care - Bonita Coronado RN - 12/30/2024 11:02 AM EDT Patient has been placed on IR's CT schedule for today 12/30, time:TBD. Please turn off heparin drip and continue to keep patient NPO. Thanks * Plan of Care - Nicole Moreno RN - 12/30/2024 12:29 AM EDT Problem: Adult Inpatient Plan of Care Goal: Plan of Care Review Outcome: Progressing Goal: Patient-Specific Goal (Individualized) Outcome: Progressing Goal: Absence of Hospital-Acquired Illness or Injury Outcome: Progressing Goal: Optimal Comfort and Wellbeing Outcome: Progressing Goal: Readiness for Transition of Care Outcome: Progressing Problem: Parenteral Nutrition Goal: Effective Intravenous Nutrition Therapy Delivery Outcome: Progressing * Nursing Notes - Daniela Martines RN - 12/29/2024 1:01 PM EDT Images from the original note were not included. WOC/ET Nursing Consult/Evaluation Note Evaluated Conrad Oconnell for ostomy located in RLQ Ileostomy. 69 yo M with h/o HTN, HPL, CAD, HFrEF (EF 40-45%), obesity (BMI 33.6), AF s/p DCCV on tikosyn and eliquis, KIM, COPD, and UC on prednisone 10 mg daily who presented with perforated diverticulitis, s/p washout and drain placement 12/15, c/b c/f uncontrolled perforation/leak, s/p open TAC/end ileostomy, SBR x 2, and UHR 12/24. Postop course c/b AF RVR leading to ICU re-admission 12/27. Description of stoma: Pouch intact from 12/27/24 with no signs of leakage. 25 ml of dark red/brown liquid effluent noted inpouch. Removed pouch with adhesive remover. Cleansed stoma and peristomal skin with warm water and wash cloth. Stoma measures 38 mm. Stoma is round, pink and moist, protruding from skin level. MCJ intact. Peristomal skin dry and intact. [facility] soft convex #[id number] cut off center to fitdue to midline wound and applied with heat of hand. Reviewed new Ileostomy book with patient. Highlighted areas regarding ostomy clinic and information, when to call doctor, s/s of dehydration, high ileostomy output and diet modifications/restrictions. Demonstrated pouch change with patient and reviewed when to change and empty pouch. Answered all patient questions to the best of this nurses ability. Left a traced pouch for patient to cut at bedside as homework. Patient given a few samples and practiced opening and closing pouches. Patient states he prefers the [facility] closure on pouch. WOC team to follow. Date Date INTRODUCTION / POD 12/27/2412/28 Introduce self and role of WOC team 12/28 Assess pouch and stoma, change pouch if leaking. If ileal conduit, make sure urine is being produced from both stents 12/28 Drop off supplies, teaching information-remove food chart from folder for urostomy patients Set up time/appt for pouch change and lesson POD 2- patient and/or family Date Date LESSON ONE / POD 12/27/2412/29 Pouch change with lesson 12/27/2412/29 Assess stoma, skin and muco cutaneous junction 12/27/24 Demonstrate and teach back how to empty pouch 12/29 Prescription typed-take image for chart 12/28 12/29 Signs and symptoms of problems, Interventions, when to call MD Review factors related to medication 12/28 Instruct patient on HHC, WOC contact information 12/28 12/29 Discuss dietary and fluid guidelines for ostomy Review how to order supplies Date Date LESSON TWO / POD 12/29 Assess pouch adherence and stoma 12/29 Review signs and symptoms of problems, interventions, when to call MD Review prescription, ordering supplies, WOC follow up (clinic or with MD) Review night drainage connection (urostomy) 12/29 Discuss management of gas and odor- 12/29 Review dietary and fluid guideline 12/29 Discuss convexity and belt if needed Date Date LESSON THREE / POD Pouch change with lesson, patient/family assisting Have patient perform most aspects of pouch change-removing, cleansing, cutting, applying if possible Review night drainage, dietary guidelines, signs and symptoms of problems, in If patient has questions regarding ostomies, can call the [place] WO / ET nursing office, . If patient needs to schedule an outpatient appointment with the WO/ ET nurse, they can call [phone] at the outpatient ostomy clinic at the [facility]. Ileostomy: Change pouch 1-2x week and as needed. Remove pouch with water moistened wash cloth (do not use bath wipes) or adhesive remover. Cleanse around stoma with water moistened wash cloth and gently pat dry. Apply a Convatec soft convex #[id number]. Pre-warm pouch in hands. Cut pouch to fit stoma. Use heat of the hand for 1 minute over pouch to ensure seal. Please check pouch often and empty of flatus or stool when 1/3-1/2 full. Empty and measure output. Change pouch when leaking- DO NOT REINFORCE WITH TAPE. Ostomy appliance belt fit: Once the hooks are fastened, the belt should be adjusted so that there'sapprox. enough room to fit two fingers between the belt and the skin. It can be removed while patient is resting or sleeping but is okay to be worn at all times. Supplies are in the room. See image(s) below: Luis Skin Assessment: Luis Risk Assessment Sensory Perception: 4-->no impairment Moisture: 4-->rarely moist Activity: 2-->chairfast Mobility: 3-->slightly limited Nutrition: 2-->probably inadequate Friction and Shear: 2-->potential problem Luis Score: 17 Luis Score: Luis Score: 17 Body mass index is 33.65 kg/m . Total time spent in assessment and treatment of patient: 30 minutes spent providing patient care. LABS: Albumin Date Value Ref Range Status 12/24/2024 2.6 (L) 3.5 - 5.0 g/dL Final Prealbumin Date Value Ref Range Status 12/27/2024 8 (L) 17 - 34 mg/dL Final Ostomy Documentation: 12/29/24 1000 Ostomy 12/24/24313 RLQ ileostomy Placement Date/Time: 06/06/25 0314 Present On Admission : no Ostomy Type: ileostomy Location: RLQ Ileostomy Type: ileostomy Stoma Appearance moist;pink;protruding above skin level Peristomal Assessment TRISTAN Stomal Appliance 1-piece;intact;not leaking Stoma Function bowel sweat;stool;other (see comments) (dark red/brown effluent) Tolerance no signs/symptoms of discomfort Stool Output (mL) 25 Plan Problem ileostomy, marked Current Plan lesson, second;needs teaching;NPWT;pouched;WOC to change;Convexity Supportive Measures optimize nutrition;turn every 2 hours;position off wound;bed therapy Teaching Material Provided other (see comment) (reviewed new ileostomy book) WOCT Visit Frequency Mary;Fri Last Date Seen 12/29/24 RN notified of assessment and plan. Please page #[phone] or reconsult with any further needs. Daniela Martines RN * Plan of Care - Justo Oates MD, PhD - 12/28/2024 6:35 PM EDT Cardiology/EP plan of care: Briefly, patient is 69M with history of long-standing persistent AF, HFrEF/?NICM (?tachycardia-mediated), UC, HTN, KIM, currently admitted to SICU on the colorectal surgery service, with multiple acute surgical issues including admission for perforated sigmoid diverticulitis, now s/p exploratory laparotomy, washout, AMY drain placement on 12/15, S/p exploratory laparotomy, TAC/EI, SBR x2, serosal injury repair, AMY placement 12/24. EP has been following for management of AF and were treating with amiodarone gtt with plan to transition to PO amiodarone, when able. Patient converted to NSR on 12/27 and our team signed off, but I have been re-engaged this evening due to recurrence of AF. Patient's HRs ~120s, he is on RA, with labs significant for Hgb 7.4 (appears to have down-trended throughout the recent course of this hospitalization). His telemetry is suggestive of AF. Primary team has increased his amiodarone gtt rate to 1 mg/min, which is reasonable. I would treat AF RVR as a bystander to his acute illness. - For now, would make no further changes; will defer to surgical team to identify and treat underlying causes (e.g. pain, anxiety, anemia, hypovolemia, infection, etc.) - Can check Mg and try IV Mg 4g bolus, which the literature has shown can have some rate-controlling properties - If HRs sustained >140s but otherwise hemodynamically stable, could consider IV metoprolol 5mg - If HRs >140s and he becomes hemodynamically unstable, would follow ACLS algorithms - EP will touch base again tomorrow - If questions or concerns, feel free to reach out to on-call business manager college or university Justo Oates MD, PhD Cardiovascular Medicine Fellow, PGY-[address] [facility] * Nursing Notes - Daniela Martines RN - 12/28/2024 3:24 PM EDT Images from the original note were not included. WOC/ET Nursing Consult/Evaluation Note Evaluated Conrad Oconnell for wound vac placement to midline abdominal incision. Patient currently being followed for RLQ Ileostomy established on 12/23/24. See H&P and surgery notes for more information. Description of wound: Removed dressing with adhesive remover and normal saline. All components accounted for. Wound measures 14.5 x 5.5 x 4 cm. Wound base moist, red with small area of brown necrosed tissue surrounding intact sutures found centrally. Shayna-wound skin is dry / intact. Wound edges open with scant serosanguinous drainage, no odor. Wound cleansed with normal saline and gauze. Skin barrier film to shayna-wound skin. Transparent tape to superior wound edges to frame wound to protect skin. Stoma ring to distal wound edges and to fill umbilical area to protect skin and assist with seal. Restore silver contact layer x 1 to fill wound bed to protect sutures and for antimicrobial properties. Black foam x 1 to fill. Secured with transparent drape. Continuous suction @125mmHg. Good seal. New cannister today, change every 7 days. Patient tolerated the dressing change with IV premedication. Recommendation: VAC dressing change Friday and Friday. Change next week to [facility] changed per WO nursing team. Next dressing change 12/31/24. Continuous suction @ 125 mmHg Supply list- - med Black foam -skin barrier spray -Adhesive remover spray -2 stoma ring -Normal saline OR Anasept Patient and educated on wound vac application and indications/therapies. When patient discharges home with a home wound vac, change management manager to home vac prior to discharge. Send patient home with box of supplies including fuel quality tech. Home vac is delivered fully charged. VAC SAFETY ALERT: 1. If wound vac is not functioning greater than 2 hours, remove wound vac dressing and replace withwet to moist gauze until wound can be seen / vac replaced by WOC/RN, RECORDS MANAGEMENT MANAGER or M.D. (heavy moist foam can destroy vital wound bed tissue) 2. If note fresh bright blood (sanguineous drainage) in vac tubing or canister, remove wound vac dressing, contact physician and apply pressure, do not reapply wound vac until wound no longer bleeds (wound vac suction will not allow a clot to form) RLQ Ileostomy: pouch intact from 12/27/24 with no signs of leakage. Stoma is pink and moist, protruding from skin level. Scant serosanguinous bowel sweat noted in bag. Reviewed new Ileostomy book with patient and . Highlighted areas regarding ostomy clinic and information, when to call doctor, s/s of dehydration, high ileostomy output and diet modifications/restrictions. Also reviewed when to change and empty pouch. Answered all patient and questions to the best of this nurses ability. WOC team to follow. Date Date INTRODUCTION / POD 12/27/2412/28 Introduce self and role of WOC team 12/28 Assess pouch and stoma, change pouch if leaking. If ileal conduit, make sure urine is being produced from both stents 12/28 Drop off supplies, teaching information-remove food chart from folder for urostomy patients Set up time/appt for pouch change and lesson POD 2- patient and/or family Date Date LESSON ONE / POD 12/27/24 Pouch change with lesson 12/27/24 Assess stoma, skin and muco cutaneous junction 12/27/24 Demonstrate and teach back how to empty pouch Prescription typed-take image for chart 12/28 Signs and symptoms of problems, Interventions, when to call MD Review factors related to medication 12/28 Instruct patient on HHC, WOC contact information 12/28 Discuss dietary and fluid guidelines for ostomy Review how to order supplies Date Date LESSON TWO / POD Assess pouch adherence and stoma Review signs and symptoms of problems, interventions, when to call MD Review prescription, ordering supplies, WOC follow up (clinic or with MD) Review night drainage connection (urostomy) Discuss management of gas and odor- Review dietary and fluid guideline Discuss convexity and belt if needed Date Date LESSON THREE / POD Pouch change with lesson, patient/family assisting Have patient perform most aspects of pouch change-removing, cleansing, cutting, applying if possible Review night drainage, dietary guidelines, signs and symptoms of problems, in If patient has questions regarding ostomies, can call the [place] WO / ET nursing office, . If patient needs to schedule an outpatient appointment with the WOC/ ET nurse, they can call [phone] at the outpatient ostomy clinic at the [facility]. Ileostomy: Change pouch 1-2x week and as needed. Remove pouch with water moistened wash cloth (do not use bath wipes). Cleanse around stoma with water moistened wash cloth and gently pat dry. Can useColoplast flat unfiltered pouch with 2 stoma ring until patient starts having flatus and stool. Once he has flatus and stool use a Coloplast soft convex 1 piece pouch #[id number]. Pre-warm pouch in hands. Cut pouch to fit stoma. Use heat of the hand for 1 minute over pouch to ensure seal. Please check pouch often and empty of flatus or stool when 1/3-1/2 full. Empty and measure output. Change pouch when leaking- DO NOT REINFORCE WITH TAPE. Ostomy appliance belt fit: Once the hooks are fastened, the belt should be adjusted so that there'sapprox. enough room to fit two fingers between the belt and the skin. It can be removed while patient is resting or sleeping but is okay to be worn at all times. Supplies are in the room. Bed Surface: Standard ICU mattress Discharge Recommendations: Patient may continue care as described above at discharge. See image(s) below: Luis Skin Assessment: Luis Risk Assessment Sensory Perception: 4-->no impairment Moisture: 3-->occasionally moist Activity: 2-->chairfast Mobility: 3-->slightly limited Nutrition: 2-->probably inadequate Friction and Shear: 2-->potential problem Luis Score: 16 Luis Score: Luis Score: 16 Body mass index is 33.65 kg/m . Total time spent in assessment and treatment of patient: 50 minutes spent providing patient care. LABS: Albumin Date Value Ref Range Status 12/24/2024 2.6 (L) 3.5 - 5.0 g/dL Final Prealbumin Date Value Ref Range Status 12/27/2024 8 (L) 17 - 34 mg/dL Final Wound Documentation: 12/28/24 1133 Wound Surgical 12/24/24 011 Anterior;Midline Abdomen Date First Assessed/Time First Assessed: 12/24/24112 Primary Wound Type: Surgical Incision Type: midline Incision Closure/Dressing: Gauze;ABD Wound Description: Fascia closed skin open and packed with 1 kerlex roll damp Wound Location Orientat... Wound Image Dressing Status Changed/New Closure Sutures Assessment Moist;Subcutaneous Fat;[place] Shayna-Wound Assessment Clean;Dry;Intact Non-staged Wound Description Full thickness Drainage Amount Scant Drainage Characteristics/Odor Serosanguinous;No Odor Treatment Applied saline, irrigated/cleansed with $$ Dressing Applied silver contact layer;foam;transparent film Periwound Care Applied saline, cleansed with;barrier film Date Dressing Changed 12/28/24 Negative Pressure Wound Therapy 12/28/241134 Midline Abdomen Placement Date/Time: 12/28/241134 Inserted by: charmaine Wound Location Orientation: Midline Location: Abdomen NPWT Unit Type initial non-disposable >50 sq cm $$ Initial Non- Disposable Unit > 50 initial non-disposable >50 sq cm Dressing Type foam, black;transparent dressing Number of Foam Pieces Used 1 (1 Ag, 1 black) Cycle Continuous;On Target Pressure (mmHg) 125 Date Dressing Changed 12/28/24 Canister Changed Yes Ostomy 12/24/24313 RLQ ileostomy Placement Date/Time: 12/24/24313 Present On Admission : no Ostomy Type: ileostomy Location: RLQ Ileostomy Type: ileostomy Stoma Appearance moist;pink;protruding above skin level Peristomal Assessment TRISTAN Stomal Appliance 1-piece;intact;not leaking Stoma Function bowel sweat Tolerance no signs/symptoms of discomfort Plan Problem ileostomy, marked;surgical wound Current Plan lesson, second;needs teaching;NPWT;silver contact;WOC to change Visit Type Consult with RN Supportive Measures bed therapy;position off wound;turn every 2 hours;optimize nutrition Teaching Material Provided other (see comment) ( and patient educated on wound vac placement and Ileostomy care) WOCT Visit Frequency Wed;Mary;Fri Last Date Seen 12/28/24 RN notified of assessment and plan. Please page [phone] or reconsult with any further needs. Daniela Martines RN * Plan of Care - Yuliya Saavedra RN - 12/27/2024 7:27 PM EDT Problem: Adult Inpatient Plan of Care Goal: Plan of Care Review Outcome: Progressing Goal: Patient-Specific Goal (Individualized) Outcome: Progressing Goal: Absence of Hospital-Acquired Illness or Injury Outcome: Progressing Goal: Optimal Comfort and Wellbeing Outcome: Progressing Goal: Readiness for Transition of Care Outcome: Progressing Problem: Parenteral Nutrition Goal: Effective Intravenous Nutrition Therapy Delivery Outcome: Progressing Problem: OT - ADLs Goal: Lower Body Dressing - Patient will complete lower body dressing tasks with standby assistanceusing adaptive equipment/compensatory strategies as needed for improved ability to complete self-care activities. Outcome: Progressing Goal: Grooming - Patient will complete grooming in standing with contact guard assistance for improved ability to safely complete ADLs. Outcome: Progressing Goal: Toileting - Patient will complete toileting task with minimal assistance and adaptive equipment as needed for improved ability to safely complete self- care activities. Outcome: Progressing Problem: OT - Transfers Goal: Transfers Supine -> Sit - Patient will perform supine to/from sit with flat bed & no rail and minimal assistance to improve participation in ADLs. Outcome: Progressing Goal: Transfers Toilet/ Bedside Commode - Patient will transfer to/from toilet/bedside commode withminimal assistance for improved ability to safely complete ADLs. Outcome: Progressing Problem: OT - Endurance Goal: Endurance Functional Task Standing - Patient will engage in standing functional task for 6-8 minutes with contact guard assistance to improve activity tolerance necessary for safe ADL completion at recommended discharge destination. Outcome: Progressing Problem: PT - General Goals Goal: Supine <-> Sit Transfers - Patient will perform supine to/from sit transfers with modified independence and with use of hospital bed features in order to improve functional mobility and safety. Outcome: Progressing Goal: Sit <-> Stand Transfers - Patient will perform sit to/from stand transfers with modified independence and least restrictive device in order to improve functional mobility and safety. Outcome: Progressing Goal: Ambulation - Patient will ambulate 150 feet with modified independence and least restrictive device to improve ability to safely navigate home and community. Outcome: Progressing Goal: Stairs - Patient will ascend/descend 3 stairs with modified independence, least restrictive device, and single railing(s) to improve ability to safely navigate home and community. Outcome: Progressing * Nursing Notes - Markel Martines RN - 12/27/2024 2:25 PM EDT Images from the original note were not included. WOC/ET Nursing Consult/Evaluation Note Evaluated Conrad Oconenll for ileostomy located in RLQ. Description of stoma: Stoma, measuring 1 1/2, moist, pink and budded. MCJ intact. Small amount of serosanguinous drainage in pouch. Shayna stomal skin intact. Pouch removed, area cleansed with water. Coloplast flat pouch applied and cut off center to accommodate midline wound.Pouch affixed with heat of hand. Patient daughter at bedside. Reviewed ostomy education with patient and family. Discussed pouch emptying, stoma measuring and pouch change frequency. WOC service will continue to follow. Recommendation and/or education: Date Date INTRODUCTION / POD 12/27/24 Introduce self and role of WOC team Assess pouch and stoma, change pouch if leaking. If ileal conduit, make sure urine is being produced from both stents Drop off supplies, teaching information-remove food chart from folder for urostomy patients Set up time/appt for pouch change and lesson POD 2- patient and/or family Date Date LESSON ONE / POD 12/27/24 Pouch change with lesson 12/27/24 Assess stoma, skin and muco cutaneous junction 12/27/24 Demonstrate and teach back how to empty pouch Prescription typed-take image for chart Signs and symptoms of problems, Interventions, when to call MD Review factors related to medication Instruct patient on HHC, WOC contact information Discuss dietary and fluid guidelines for ostomy Review how to order supplies Date Date LESSON TWO / POD Assess pouch adherence and stoma Review signs and symptoms of problems, interventions, when to call MD Review prescription, ordering supplies, WOC follow up (clinic or with MD) Review night drainage connection (urostomy) Discuss management of gas and odor- Review dietary and fluid guideline Discuss convexity and belt if needed Date Date LESSON THREE / POD Pouch change with lesson, patient/family assisting Have patient perform most aspects of pouch change-removing, cleansing, cutting, applying if possible Review night drainage, dietary guidelines, signs and symptoms of problems, interventions, when to call MD See image(s) below: Luis Skin Assessment: Luis Risk Assessment Sensory Perception: 4-->no impairment Moisture: 3-->occasionally moist Activity: 2-->chairfast Mobility: 2-->very limited Nutrition: 3-->adequate Friction and Shear: 2-->potential problem Luis Score: 16 Luis Score: Luis Score: 16 Body mass index is 33.55 kg/m . Total time spent in assessment and treatment of patient: 40 minutes spent providing patient care. LABS: Albumin Date Value Ref Range Status 12/24/2024 2.6 (L) 3.5 - 5.0 g/dL Final Prealbumin Date Value Ref Range Status 12/27/2024 8 (L) 17 - 34 mg/dL Final Ostomy Documentation: 12/27/24 1424 Ostomy 12/24/244 RLQ ileostomy Placement Date/Time: 12/24/24313 Present On Admission : no Ostomy Type: ileostomy Location: RLQ Ileostomy Type: ileostomy Wound Image Stoma Appearance moist;pink;round Peristomal Assessment intact Stomal Appliance 1-piece;changed Date Appliance Changed 12/27/24 Treatment cleansed with water;wafer barrier over peristomal skin Stoma Function serosanguineous Tolerance no signs/symptoms of discomfort Plan WOCT Visit Frequency Fri;Fri;Mary;Fri Last Date Seen 12/27/24 RN notified of assessment and plan. Please page [phone] or reconsult with any further needs. Markel Martines RN * Plan of Care - Renaldo Salinas MD - 12/27/2024 12:13 PM EDT Pt is currently in SICU with multiple acute surgical issues including S/p exploratory laparotomy, washout, AMY drain placement on 12/15, S/p exploratory laparotomy, TAC/EI, SBR x2, serosal injury repair, AMY placement 12/24 and pressor requirement. Tele reviewed, he is currently in NSR. Recommend that amiodarone be continued and transitioned to oral 200mg whenever feasible. Tikosyn will be discontinued. Recommend starting AC with heparin whenever feasible. This should be transitioned back to his home eliquis prior to discharge. Pt can undergo 14 day MCT and EP follow-up after discharge. We have placed these orders. EP will sign off. Reengage if needed. * Nursing Notes - Markel Martines RN - 12/27/2024 11:20 AM EDT WOC/ET Nursing Consult Note: attempted visit, patient up in chair at this time. Will see at later time. * Plan of Care - Ngoc Lozada OT - 12/27/2024 9:20 AM EDT Problem: OT - ADLs Goal: Lower Body Dressing - Patient will complete lower body dressing tasks with standby assistanceusing adaptive equipment/compensatory strategies as needed for improved ability to complete self-care activities. Outcome: Ongoing Goal: Grooming - Patient will complete grooming in standing with contact guard assistance for improved ability to safely complete ADLs. Outcome: Ongoing Goal: Toileting - Patient will complete toileting task with minimal assistance and adaptive equipment as needed for improved ability to safely complete self- care activities. Outcome: Ongoing Problem: OT - Transfers Goal: Transfers Supine -> Sit - Patient will perform supine to/from sit with flat bed & no rail and minimal assistance to improve participation in ADLs. Outcome: Ongoing Goal: Transfers Toilet/ Bedside Commode - Patient will transfer to/from toilet/bedside commode withminimal assistance for improved ability to safely complete ADLs. Outcome: Ongoing Problem: OT - Endurance Goal: Endurance Functional Task Standing - Patient will engage in standing functional task for 6-8 minutes with contact guard assistance to improve activity tolerance necessary for safe ADL completion at recommended discharge destination. Outcome: Ongoing * Plan of Care - Di Leon PT - 12/27/2024 9:20 AM EDT Problem: PT - General Goals Goal: Supine <-> Sit Transfers - Patient will perform supine to/from sit transfers with modified independence and with use of hospital bed features in order to improve functional mobility and safety. Outcome: Ongoing Goal: Sit <-> Stand Transfers - Patient will perform sit to/from stand transfers with modified independence and least restrictive device in order to improve functional mobility and safety. Outcome: Ongoing Goal: Ambulation - Patient will ambulate 150 feet with modified independence and least restrictive device to improve ability to safely navigate home and community. Outcome: Ongoing Goal: Stairs - Patient will ascend/descend 3 stairs with modified independence, least restrictive device, and single railing(s) to improve ability to safely navigate home and community. Outcome: Ongoing * Plan of Care - Shereen Vines RN - 12/27/2024 7:20 AM EDT Problem: Adult Inpatient Plan of Care Goal: Plan of Care Review Outcome: Progressing Goal: Patient-Specific Goal (Individualized) Outcome: Progressing Goal: Absence of Hospital-Acquired Illness or Injury Outcome: Progressing Goal: Optimal Comfort and Wellbeing Outcome: Progressing Goal: Readiness for Transition of Care Outcome: Progressing * Plan of Care - Moses Llanos RN - 12/27/2024 2:01 AM EDT Problem: Adult Inpatient Plan of Care Goal: Plan of Care Review Outcome: Progressing Goal: Patient-Specific Goal (Individualized) Outcome: Progressing Goal: Absence of Hospital-Acquired Illness or Injury Outcome: Progressing Goal: Optimal Comfort and Wellbeing Outcome: Progressing Goal: Readiness for Transition of Care Outcome: Progressing Problem: Parenteral Nutrition Goal: Effective Intravenous Nutrition Therapy Delivery Outcome: Progressing * Plan of Care - Shereen Vines RN - 12/26/2024 7:35 AM EDT Problem: Adult Inpatient Plan of Care Goal: Plan of Care Review Outcome: Progressing Goal: Patient-Specific Goal (Individualized) Outcome: Progressing Goal: Absence of Hospital-Acquired Illness or Injury Outcome: Progressing Goal: Optimal Comfort and Wellbeing Outcome: Progressing Goal: Readiness for Transition of Care Outcome: Progressing Problem: Parenteral Nutrition Goal: Effective Intravenous Nutrition Therapy Delivery Outcome: Progressing * Plan of Care - Shereen Vines RN - 12/25/2024 7:15 AM EDT Problem: Adult Inpatient Plan of Care Goal: Plan of Care Review Outcome: Progressing Goal: Patient-Specific Goal (Individualized) Outcome: Progressing Goal: Absence of Hospital-Acquired Illness or Injury Outcome: Progressing Goal: Optimal Comfort and Wellbeing Outcome: Progressing Goal: Readiness for Transition of Care Outcome: Progressing Problem: Parenteral Nutrition Goal: Effective Intravenous Nutrition Therapy Delivery Outcome: Progressing * Plan of Care - Virginia White RD - 12/24/2024 4:25 PM EDT Problem: Parenteral Nutrition Goal: Effective Intravenous Nutrition Therapy Delivery Outcome: Progressing Note: Recommendations and Plan of Care: Recommend to initiate ClinimixE using Clinimix E 4.25/10 @ 40mL/hr + 250mL Clinolipid (990kcal, 41gprotein, 96g CHO) PN Calculator Base formula: Day 2 Day 3 Goal Dextrose 70% 100 g 200 g 275 g Amino Acid (Travasol 10%) 55 g 100 g 130 g Fish Oil Fat Emulsion (SMOFLIPID) 20% 25 g 55 g 65 g Daily Total Volume 960 mL 1920 mL 95 mL Infusion Rate 40 mL/hr 80 mL/hr 2280 mL/hr Energy: 2105 Kcal/day 27 Kcal/kg/day - 77 kg Protein: 130 Gms/day 1.7 Gms/kg/day - 77 kg IVF + PN @ 100 ml/h Pl add 10 mg Zinc and 80 mcg Se to custom TPN daily. Will add 100 mg Thiamine x 7 days. Monitor for refeeding Add Zn, Se, Cu and Vitamin D levels with am labs Will monitor return of bowel function and assist with transition as indicated * Nursing Notes - Alejandro Landeros RN - 12/24/2024 11:22 AM EDT Images from the original note were not included. WOC/ET Nursing Consult/Evaluation Note Evaluated Conrad Oconnell for new right upper quadrant end ileostomy. Patient visited at bedside and is in significant pain. Primary nurse present, as is operating room surgical technologist. Patient and , Bridgette, agreeable to ostomy site assessment and pouch change. Description of stoma: Existing pouch is removed and skin cleansed with water, then pat dry. Stoma is protuberant, edematous, and pink in color. Mucocutaneous junction is approximated, without signs of separation. Os is slightly medial facing. Stoma measures 1 3/8 round. A one-piece Coloplast flat pouch were cut to size and applied with ostomy paste ring. Warm blanket provided. Patient too uncomfortable to participate in education at this time, patient's acting as teachable co-learner. Recommendation and/or education: Discussed the following topics with patient and : -Frequency of pouch changes. -When to empty and how frequently. -Normal vs abnormal stomal findings -Stool quality / quantity. -Steps for ostomy pouch change. -How to measure the stoma, and cut a new pouch to size. Date Date INTRODUCTION / POD 12/24 Introduce self and role of WOC team 12/24 Assess pouch and stoma, change pouch if leaking. If ileal conduit, make sure urine is being produced from both stents 12/24 Drop off supplies, teaching information-remove food chart from folder for urostomy patients 12/24 Set up time/appt for pouch change and lesson POD 2- patient and/or family Date Date LESSON ONE / POD 6/6 Pouch change with lesson 12/24 Assess stoma, skin and muco cutaneous junction Demonstrate and teach back how to empty pouch Prescription typed-take image for chart Signs and symptoms of problems, Interventions, when to call MD Review factors related to medication Instruct patient on HHC, WOC contact information Discuss dietary and fluid guidelines for ostomy Review how to order supplies Date Date LESSON TWO / POD Assess pouch adherence and stoma Review signs and symptoms of problems, interventions, when to call MD Review prescription, ordering supplies, WOC follow up (clinic or with MD) Review night drainage connection (urostomy) Discuss management of gas and odor- Review dietary and fluid guideline Discuss convexity and belt if needed Date Date LESSON THREE / POD Pouch change with lesson, patient/family assisting Have patient perform most aspects of pouch change-removing, cleansing, cutting, applying if possible Review night drainage, dietary guidelines, signs and symptoms of problems, interventions, when to call MD See image(s) below: Luis Skin Assessment: Luis Risk Assessment Sensory Perception: 4-->no impairment Moisture: 4-->rarely moist Activity: 1-->bedfast Mobility: 3-->slightly limited Nutrition: 2-->probably inadequate Friction and Shear: 3-->no apparent problem Luis Score: 17 Luis Score: Luis Score: 17 Body mass index is 32.59 kg/m . Total time spent in assessment and treatment of patient: 30 minutes spent providing patient care. LABS: Albumin Date Value Ref Range Status 12/24/2024 2.6 (L) 3.5 - 5.0 g/dL Final No results found for: PREALBUMIN Ostomy Documentation: 12/24/24 1104 Ostomy 12/24/24313 RLQ ileostomy Placement Date/Time: 12/24/24313 Present On Admission : no Ostomy Type: ileostomy Location: RLQ Ileostomy Type: ileostomy Wound Image Stoma Appearance pink;moist;protruding above skin level Peristomal Assessment clean;dry;intact Stomal Appliance (S) 1-piece;changed Date Appliance Changed 12/24/24 Treatment cleansed with water Stoma Function serosanguineous (Bowel Sweat) Tolerance signs/symptoms of discomfort;did not assist with appliance change;did not assist with stoma care Stool Output (mL) 5 Plan Problem ileostomy, marked Current Plan needs teaching Visit Type Consult with RN Supportive Measures bed therapy;elevate extremitiy;position off wound;optimize nutrition;turn every2 hours Teaching Material Provided about your dressing change;other (see comment) (Introductory lesson provided to patient and Bridgette; Patient's pain precluded effective teaching. Requires reinforcement.) WOCT Visit Frequency Mon;Mary Last Date Seen 12/24/24 RN notified of assessment and plan. Please page #[phone] or reconsult with any further needs. * Op Note - Barbara Call MD - 12/24/2024 7:29 AM EDT Pre-op Diagnosis: History of ulcerative colitis with perforation of the sigmoid colon from ulcerative colitis versus diverticulitis Post-op Diagnosis: History of ulcerative colitis with perforation of the sigmoid colon from ulcerative colitis versus diverticulitis Procedure: Open total abdominal colectomy with end ileostomy Small bowel resection x2 Small bowel serosal defect repair x1 Primary umbilical hernia repair AMY drain placement Staff: Barbara Call MD, who was present and scrubbed throughout the procedure Assist: Dr. ARMEN Cortes, resident Service: Colorectal Surgery Anesthesia: General endotracheal Anesthesiologist: Tomás Joiner DO Wrecker Operator Assisting: Chris Cazares MD; Katherine Elizondo MD EBL: Minimal Complication: None Counts: Reported as correct. No foreign bodies identified on inspection of the anus Specimens: Colon, ileum, jejunum INTRAOPERATIVE FINDINGS Significantly inflamed sigmoid colon with contained perforation involving small bowel leading to enterotomy x3 requiring SBR x2. Serosal defect repaired. AMY drain in pelvis. Statement of Medical Necessity Mr. Oconnell is a 69 y.o. male with a history of ulcerative colitis for several years. It sounds like he has not been on biologic therapy. He presented to an outside facility about a week ago with concern for perforated sigmoid diverticulitis. He underwent laparoscopy and washout with drain placement.In the last couple of days the drain became feculent and they requested transfer to [facility].. Deya also had a history of cardiac disease including atrial fibrillation with rapid ventricular response which he has been in at the time of transfer and at the time of surgery. We did have Cardiologysee him after his arrival here and then proceeded to surgery. Given his ulcerative colitis we recommended total colectomy. The risks, benefits and alternatives of surgery were explained to him and he desired to proceed. Operation After informed consent was obtained, Mr. Oconnell was brought to the operating room. he was put to sleep and then positioned supine on the operating table. Pressure points were padded. Sequential compression devices were applied. The abdomen was prepped and draped in the usual sterile fashion. We created a midline incision carried this down sharply through the fascia. On entering the abdomenthere was not feculent nor purulent diffuse peritonitis. He did have multiple loops of small bowel stuck in the left lower quadrant which we mobilized. Two of these were very adherent to the area of inflammation over the sigmoid. In mobilizing the bluntly off the sigmoid we did I identified the pus within the abscess cavity. We did remove his existing AMY drain. Once we had completely mobilized the small bowel there were two areas of extensive inflammation with serosal defects and small enterotomies which were incidental and inherent to the procedure . Afterthe colectomy portion we resected these with PRETTY staplers and then performed a epfi-yc-eiys functional end-to-end stapled anastomosis and closed the mesenteric defect of each with 3-0 Vicryl suture. There was also one small area of serosal defect which was again was incidental and inherent to the lysis of adhesions which we oversewed with 3- 0 Vicryl. Once we had freed the small bowel we proceeded with the dissection of the colon. We were able to reach her hand down the right side of the pelvis and identify normal upper rectum. We divided that with a green load of the PRETTY 80 stapler. We then proceeded with medial to lateral mobilization of the very inflamed sigmoid colon which was stuck to the left anterior lower abdominal sidewall. We also inc ised the white line of Toldt and came from that proximally as well. Eventually we are able to mobilize this off of the sidewall. We took down its mesentery using the LigaSure device. We came through the midpoint of the very inflamed mesentery. We left about an inch of inflamed mesentery in the retroperitoneum as well. We then proceeded with the total colectomy taking down the splenic flexure in the mesentery of the descending colon. We then took the omentum off the transverse colon and completely mobilized the right colon as well. We divided all the mesentery of the colon at roughly its midpoint and then divided the ileum with a blue load of the Endo-PRETTY stapler just proximal to the ileocecal valve. We took care to leave the ileocolic vessels intact in case he is able to have a proctectomy and J-pouch in the future. I think that will depend substantially on how he recovers but also on what the final pathology as from today's resection. We then irrigated the abdomen. We placed a 19 [place] Surya drain in the pelvis given the existing infection. We created a opening in the right upper quadrant at a previously marked stoma site and brought out the terminal ileum through this taking care not to twist it. We then switched to the closing tray and closed the fascia with running 1. PDS suture. We left the skin open given the contamination. We then matured the ileostomy as an end ileostomy with interrupted 3-0 Vicryl sutures in an everted fashion. The patient tolerated the procedure well. he was covered with dry dressings and taken to the recovery room. * Plan of Care - Rosita Fields MD - 12/24/2024 4:36 AM EDT SICU Handoff Conrad Oconnell is a 69 y.o. male who was admitted to the SICU 12/24/24 at 0400 (specify time). Primary Team: CRS Transfer from location: [] Floor [] OSH [] ED [x] OR [] PACU Was patient triaged with the fellow or DARA prior to transfer: [x] Yes [] No Was primary provider or surgeon present: [x] Yes [] No If transferring from OR, was anesthesia provider present: [x] Yes [] No [] N/a Was checklist used: [x] Yes [] No Mode of handoff: [x] Bedside Patient's family or NOK has been notified patient has been transferred to the SICU w/in one hour oftransfer: [x] Yes: If yes, by who - CRS (primary team) [] No: If no, please enter reason and plan for notification Rosita Fields MD Surgical ICU Provider Department of Surgery Division of Critical Care, Trauma and Burn * Plan of Care - Armen Cortes MD - 12/24/2024 4:08 AM EDT Plan of care update - Now s/p open TAC w/ EI, SBRx2 w/ serosal injury repair x1 and primary UHR - AMY drain in pelvis - Abraham to remain overnight - Fascia closed, skin open packed with dry dressing and ABD w/ tape - WTD dressing changes BID - Remain NPO overnight, IVF - Abx for at least 4 days - OK to resume heparin gtt in 6 hrs - Continue prednisone 10mg daily for now - if remains hypotensive, consider stress dose steroids ARMEN Cortes MD PGY4 General Surgery *[id number] * Brief Op Note - Armen Cortes MD - 12/24/2024 4:05 AM EDT Conrad Oconnell ([id number]) PRE OPERATIVE DIAGNOSIS Colon perforation [K63.1] POST OPERATIVE DIAGNOSIS Colon perforation [K63.1] PROCEDURE PERFORMED Open total abdominal colectomy with end ileostomy Small bowel resection x2 Small bowel serosal injury repair x1 Primary umbilical hernia repair AMY drain placement PRIMARY CLOSURE No - fascia closed INTRAOPERATIVE FINDINGS Significantly inflamed sigmoid colon with contained perforation involving small bowel leading to enterotomy x3 requiring SBR x2. Serosal injury repaired. AMY drain in pelvis. SURGEON Surgeons and Role: * Barbara Call MD - Primary ANESTHESIOLOGIST Anesthesiologist: Tomás Joiner DO Wrecker Operator Assisting: Chris Cazares MD; Katherine Elizondo MD SURGICAL STAFF Heavy Truck Mechanic: Amita Westbrook RN Resident Assisting: Di Early MD; Armen Cortes MD Underground Utility Locator: Carla Mejia COMPLICATIONS None ESTIMATED BLOOD LOSS 100 ml SPECIMENS ID Type Source Tests Collected by Time Destination 1 : Jejunum Permanent SURG PATH SURG PATH REQUEST Barbara Call MD 12/24/2024 0144 2 : Ileum Permanent SURG PATH SURG PATH REQUEST Barbara Call MD 12/24/2024 0146 3 : Colon Permanent SURG PATH SURG PATH REQUEST Barbara Call MD 12/24/2024 0238 No, this procedure was not performed with the intent to treat rectal cancer. ARMEN Cortes MD December 24, 2024 4:05 AM Cosigned by Barbara Call MD at 12/25/2024 10:42 AM EDT * Plan of Care - Yaneth Mena RN - 12/23/2024 11:23 PM EDT Problem: Adult Inpatient Plan of Care Goal: Plan of Care Review Outcome: Progressing Goal: Patient-Specific Goal (Individualized) Outcome: Progressing Goal: Absence of Hospital-Acquired Illness or Injury Outcome: Progressing Goal: Optimal Comfort and Wellbeing Outcome: Progressing Goal: Readiness for Transition of Care Outcome: Progressing * Plan of Care - Lisbeth Aguilera RN - 12/23/2024 4:33 PM EDT Problem: Adult Inpatient Plan of Care Goal: Plan of Care Review Outcome: Progressing Goal: Patient-Specific Goal (Individualized) Outcome: Progressing Goal: Absence of Hospital-Acquired Illness or Injury Outcome: Progressing Goal: Optimal Comfort and Wellbeing Outcome: Progressing Goal: Readiness for Transition of Care Outcome: Progressing * Nursing Notes - Agatha Orta RN - 12/23/2024 10:04 AM EDT WOC/ET Nursing Note: Patient seen for pre-op stoma marking. Assessed in sitting and lying positions. Marked with an X using a permanent marker. Marked in patients upper quadrants; within rectus muscle, within field of vision, and on flat pouching surfaces. Patient would prefer a higher location so it can be under his shirt and not in the way of his pants or where he can't see. Marked on the highest portion of the rounding so patient could see the castellano. Patient with appropriate questions about what it would entail after, discussed pouching, frequency, emptying and basic information. Patientwith a better understanding. Patient mentioned he had been searching on [employer] for information, reiterated that patient is getting an ileostomy not to be confused with a colostomy when doing research. Patient very kind and thankful. Will follow for teaching after ostomy created. 30 minutes spent providing patient care. * Plan of Care - Armen Cortes MD - 12/23/2024 12:18 AM EDT Plan of Care 69M HTN/HLD, CAD c/b HFrEF (EF 35%), persistent afib/aflutter s/p DCCV (12/08/24) on tikosyn and Eliquis, KIM, COPD, UC (on budesonide and pred 10mg daily) who presents with perforated diverticulitis s/p dx lap, washout, AMY drain placement on 12/15. Patient initially presented to the OSH ED on 12/13 with acute diffuse abd pain. Imaging was concerning for acute diverticulitis with an adjacent 4cm abscess. IR was unable to place a drain given location, so patient was subsequently taken to the OR on 12/15 for lap washout with AMY drain placement. Patient was admitted to the SICU for a few days thereafter where abd pain worsened with onset of flatus. Patient was also noted to have worsening leukocytosis and abd distension. Repeat CTAP on 12/21 showed a decreased 3.1 from 4cm abscess but a new 8.2cm abscess adjacent to the pre-existing AMY (however, upon imaging review, unclear whether adjacent inflammation vs well-formed abscess). AMY output was also noted to be feculent. Given patient's comorbidit ies, patient was transferred to [facility] for further evaluation. Patient currently denies any symptoms including fevers, nausea, vomiting. Reports minimal pain. Continues to pass flatus and is now having diarrhea. Last Eliquis dose was ~36 hrs ago (6/3 PM). UC waspreviously controlled with sulfasalazine alone, but patient was started on budesonide and prednisone 10mg daily in Jul this year after incomplete colonoscopy showed severe UC (per patient) requiring of the remainder of the procedure. Last full colon[facility] per chart review in 2022 ([facility] with tubular adenomas noted from a localized area of erythematous mucosa and 3-15mm sessile/semi- pedunculated sigmoid polyps x4 with a 7-10mm cecal polyp. Reports family history of CRC. Denies any additional prior intraabd surgical history. Patient afebrile, initially w/ normal HR but since been in afib w/ RVR w/ HR in 110-130s, but normotensive. Well-appearing, abd minimally tender or distended. RLQ AMY w/ feculent drainage. Lap incisions covered w/ steri strips, c/d/I. PLAN: - NPO, gentle IVF given EF 35% - Zosyn - Cardiology consult given ongoing afib w/ RVR and recent admission for RVR. In meantime, will resume OSH cards recs: - Metoprolol increased to tartrate 50mg q6h with hold parameters - decrease back to home dose once HR improves - Started on amio load - was on 400mg BID with plans to discharge on 200mg BID - Hold Eliquis, start hep gtt in meantime but will need to hold prior to OR - Will likely need OR this admission - sigmoidectomy vs TAC pending further investigation of UC Patient discussed with CRS attending product consultant, Dr. Call. ARMEN Cortes MD PGY4 General Surgery Pager [phone] * Nursing Notes - Gaurang Coombs RN - 12/23/2024 12:00 AM EDT On admission to [facility], from outside facility a dual RN initial assessment of skin condition was performed by Gaurang Coombs RN and Ilda Brody RN. Skin Assessment: Skin not within defined limits. - Pressure Injury suspected: Yes Bruises, laparoscopic sites and AMY drainage noted. Luis Score: 20 LDA Added:No Gaurang Coombs RN [facility] History of Present illness Narrative* Alejandro Ventura RN - 01/07/2025 2:27 PM EDT Care Management Progress Note Uploaded AVS, SUKHJINDER, HH order and wound vac order to HH referral. * Lisbeth Aly MD - 01/07/2025 11:10 AM EDT Colorectal Surgery Daily Progress Note Attending: Barbara Call MD Length of Stay: 16 Surgery: s/p open total abdominal colectomy with EI, SBR x2, repair of serosal tear, umbilical hernia repair with AMY placement on 12/24 Subjective/Interval events: AFHDS, tolerating a regular diet and having appropriate ileostomy output. Remains in afib with RVR (HR 110's). O:BP 97/67 (BP Location: Right arm, BP Position: Lying) Pulse 103 Temp 98 F (36.7 C) (Oral) Resp 18 Ht 1.753 m (5' 9.02) Wt 104.3 kg (230 lb) Comment: bed SpO2 96% BMI 33.95 kg/m Smoking Status Former 01/06 0700 - 01/07 0659 In: 1100.7 [P.O.:200; I.V.:900.7] Out: 1275 [Urine:900] PE: General: NAD, lying in bed Pulm: Respirations easy and non labored Abd: soft, nontender, non distended. Stoma pink and protruding above skin level with brown stool inostomy appliance, midline abdominal incision with wound vac with adequate seal Labs: WBC/Hgb/Hct/Plts: 8.69/8.1/27.8/454 (01/08 332) Bun/Creat/Cl/CO2/Glucose: 22/0.88/109/23/88 (01/08 332-01/07 605) Na/K+/Phos/Mg/Ca: 139/4.2/3.6/1.9/-- (01/08 332) A/P: Conrad Oconnell is a 69 y.o. male with a PMH of long-standing persistent Afib (on metop 50 BID), HFrEF 2/2 rate uncontrolled Afib (LVEF reportedly 40% at OSH echo), COPD, Ulcerative Colitis, HTN, and KIM. He was admitted to an OSH on 12/13/24 with perforated sigmoid diverticulitis s/p underwent exp lap with drainage of abscess, washout and drain placement on 12/15 c/b Afib with RVR requiring an ICU admission. On 12/17, he developed worsening abdominal pain with distention and CT showed a new hypodense rim enhancing collection c/f new abscess & feculent output from AMY drain. He was transferred to [facility] for further management in the setting of worsening intra-abdominal abscesses and is now s/p open total abdominal colectomy with EI, SBR x2, repair of serosal tear, unbilical hernia repair with AMY placement on 12/24. Today's Plan Plan for CTPV f/b cardioversion per EP Holter monitor x 2 weeks ordered for discharge Follow-up EP for plan post-cardioversion Continue amiodarone 200mg and Eliquis 5mg BID and metoprolol XR 50mg daily Will go home with home wound vac Ulcerative colitis: not on biologics, stop home prednisone, no indication for home budesonide Colonic perforation: 2/2 sigmoid diverticulitis vs Ulcerative colitis Intra-abdominal abscess: likely 2/2 the above. S/p surgery (see above) Path pending +ROBF DIET NPO with meds Calorie counts, encourage po intake Stop TPN tonight CT A/P (12/30) abscesses with adjacent inflammation, surgical drain not in place to the collections,no c/f perforation, reactive small bowel inflammation and ileus IR consulted, appreciate assistance: s/p drain placement 12/30 Cultures: (IR aspirate 12/30): gram stain negative ATB (empiric): zosyn (12/23-12/28), cefepime (12/30, 01/02-01/04) Ceftriaxone (12/30- 01/01), flagyl (12/30- 01/07), PO cipro/flagyl (01/04-current). Original EoT was 01/07 Ceftriaxone changed back to cefepime given worsening WBC count Wound care: wound vac (MWF) WOCN consult for new ostomy AMY drain removed 01/04 Discontinue IR drain 01/05 Protein calorie malnutrition: Lining Layer consulted, appreciate recommendations DIET NPO with meds Add oral supplements with calorie counts Discontinue TPN 01/05 Thiamine for risk of refeeding EoT 12/31 NICM (POA): per chart review possibly 2/2 afib tachycardia mediated Chronic systolic HFrEF (POA) HTN (POA) Non obstructive CAD (POA) Persistent A fib (POA) s/p DCCV 12/08 on eliquis, chadsvasc 3 Coagulopathy: 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 EP consulted, appreciate recommendations - signed off Previously on amiodarone infusion, transitioned to po Home metoprolol dosin mg BID Metoprolol 25mg BID initiated - will discharge on this dosage Troponin negative Echo: Normal left ventricular size. Global LV dysfunction. EF 35%. Normal right ventricular size and function. No significant valvular disease identified. Home Tikosyn discontinued Holding home furosemide & Aldactone Heparin gtt discontinued 01/03, transitioned to home Eliquis Can undergo 14day MCT and EP follow up after discharge (orders placed) Acute pain: multimodal pain regimen: scheduled tylenol, gabapentin, lidocaine patch Prn Oxycodone, Shock: possibly septic 2/2 intra-abdominal abscess r/t colonic perforation with diverticulitis vs cardiogenic given hx of heart failure - resolved Weaned off pressors, HDS, lactate normalized. TTE as discussed above Fluid resuscitation as needed. Acute respiratory failure - resolved. COPD: not on home oxygen. Continue home trelegy ellipta (TI) with prn albuterol. RT please do not discontinue KIM: nocturnal Cpap MJ: resolved, baseline sCr 0.9, peaked at 1.48, now trending down. Urine output adequate. Monitor. Diabetes, type 2: Hgb A1c 6.1 (12/07), holding Dapagliflozin (for cardiac GDMT), will resume closer to discharge. SSI as needed, accuchecks Q6h Acute Blood Loss Anemia vs Precipitous Drop in Hemoglobin Likely Secondary to Fluid Resuscitation: baseline hgb 12.4, minimal EBL, likely related to ongoing resuscitation and fluid shifting. Possible Transfusion Associated Circulatory overload: Hgb 6.9 on 01/04, started blood transfusion but developed subjective SOB with expiratory wheezing. Transfusion stopped, sent to lab for evaluation Current hgb stable. Low concern for active bleeding. Daily CBC. Complexity. Obesity, class I Body mass index is 33.95 kg/m . - Follow with PCP for dietary and lifestyle modifications. Malnutrition - Severe Protein-Calorie Malnutrition (01/05/2025 1:18 PM) secondary to Acute Illness / Injury (01/05/2025 1:18 PM) - Reviewed and agree with police commissioner's recommendations. Wound Documentation Wound Surgical Open Surgical Incision 12/24/24 011 Anterior;Midline Abdomen (Active) Date First Assessed/Time First Assessed: 12/24/24112 Primary Wound Type: Surgical Secondary WoundType - Surgical: Open Surgical Incision Incision Type: midline Incision Closure/Dressing: Gauze;ABDWound Description: Fascia closed skin open an... Any conditions listed below are present on admission unless otherwise specified. .None Routine Hospital Care Fall Risk: Assessed for patient fall risk and discussed safety measures during rounding. Diet: DIET NPO with meds DVT prophylaxis: Lazara Abraham: None Code status: Full CENTRAL LINES: Central Line LDAs Active Central Line Access Devices Name Placement date Placement time Site Days PICC Line - Double Lumen 12/22/24520 basilic vein (medial side of arm), left 12/22/24 05 -- 16 Central Line Indications: TPN If patient has multiple lines, please choose the answers of the next two questions to correlate with the lines listed above in descending order Can line/s be removed today? Select all that apply Line 1, no cannot be removed Dressing/s Clean/Dry/Intact?: Select all that apply Line 1, Dressing clean, dry, intact and No line currently in place Patient seen with colorectal team, plan of care discussed, and they are in agreement. Lisbeth Aly MD For patients located in or [facility] please page [phone] * Arturo Thao MD - 01/06/2025 9:55 AM EDT Colorectal Surgery Daily Progress Note Attending: Barbara Call MD Length of Stay: 15 Surgery: s/p open total abdominal colectomy with EI, SBR x2, repair of serosal tear, umbilical hernia repair with AMY placement on 12/24 Subjective/Interval events: HDS, AF. He went into afib RVR last night. He is on amiodarone and metop. EP is following O:BP 105/60 (BP Location: Right arm, BP Position: Lying) Pulse 115 Temp 97.8 F (36.6 C) (Oral) Resp 18 Ht 1.753 m (5' 9.02) Wt 104.3 kg (230 lb) Comment: bed SpO2 95% BMI 33.95 kg/m Smoking Status Former 01/05 07 - 01/06 659 In: 1407.3 [P.O.:300; I.V.:15.6] Out: 1945 [Urine:1625] PE: General: NAD, lying in bed Pulm: Respirations easy and non labored Abd: soft, nontender, non distended. Stoma pink and protruding above skin level with brown stool inostomy appliance, IR drain with serous drainage, midline abdominal incision with wound vac with adequate seal Labs: WBC/Hgb/Hct/Plts: 10.61/7.6/25.4/417 (01/07 548) Bun/Creat/Cl/CO2/Glucose: 21/0.75/108/22/91 (01/07 548) Na/K+/Phos/Mg/Ca: 137/4.4/3.6/1.8/-- (01/07 548) A/P: Conrad Oconnell is a 69 y.o. male with a PMH of long-standing persistent Afib (on metop 50 BID), HFrEF 2/2 rate uncontrolled Afib (LVEF reportedly 40% at OSH echo), COPD, Ulcerative Colitis, HTN, and KIM. He was admitted to an OSH on 12/13/24 with perforated sigmoid diverticulitis s/p underwent exp lap with drainage of abscess, washout and drain placement on 12/15 c/b Afib with RVR requiring an ICU admission. On 12/17, he developed worsening abdominal pain with distention and CT showed a new hypodense rim enhancing collection c/f new abscess & feculent output from AMY drain. He was transferred to [facility] for further management in the setting of worsening intra-abdominal abscesses and is now s/p open total abdominal colectomy with EI, SBR x2, repair of serosal tear, unbilical hernia repair with AMY placement on 12/24. Today's Plan NPO Please be careful with IV fluids. He has hx of heart failure Follow-up EP plan for the afib RVR Dispo planning Ulcerative colitis: not on biologics, stop home prednisone, no indication for home budesonide Colonic perforation: 2/2 sigmoid diverticulitis vs Ulcerative colitis Intra-abdominal abscess: likely 2/2 the above. S/p surgery (see above) Path pending +ROBF DIET NPO with meds Calorie counts, encourage po intake Stop TPN tonight CT A/P (12/30) abscesses with adjacent inflammation, surgical drain not in place to the collections,no c/f perforation, reactive small bowel inflammation and ileus IR consulted, appreciate assistance: s/p drain placement 12/30 Cultures: (IR aspirate 12/30): gram stain negative ATB (empiric): zosyn (12/23-12/28), cefepime (12/30, 01/02-01/04) Ceftriaxone (12/30- 01/01), flagyl (12/30- 01/07), PO cipro/flagyl (01/04-current). Original EoT was 01/07 Ceftriaxone changed back to cefepime given worsening WBC count Wound care: wound vac (MWF) WOCN consult for new ostomy AMY drain removed 01/04 Discontinue IR drain 01/05 Protein calorie malnutrition: Lining Layer consulted, appreciate recommendations DIET NPO with meds Add oral supplements with calorie counts Discontinue TPN 01/05 Thiamine for risk of refeeding EoT 12/31 NICM (POA): per chart review possibly 2/2 afib tachycardia mediated Chronic systolic HFrEF (POA) HTN (POA) Non obstructive CAD (POA) Persistent A fib (POA) s/p DCCV 12/08 on eliquis, chadsvasc 3 Coagulopathy: on 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 EP consulted, appreciate recommendations - signed off Previously on amiodarone infusion, transitioned to po Home metoprolol dosin mg BID Metoprolol 25mg BID initiated - will discharge on this dosage Troponin negative Echo: Normal left ventricular size. Global LV dysfunction. EF 35%. Normal right ventricular size and function. No significant valvular disease identified. Home Tikosyn discontinued Holding home furosemide & Aldactone Heparin gtt discontinued 01/03, transitioned to home Eliquis Can undergo 14day MCT and EP follow up after discharge (orders placed) Acute pain: multimodal pain regimen: scheduled tylenol, gabapentin, lidocaine patch Prn Oxycodone, Shock: possibly septic 2/2 intra-abdominal abscess r/t colonic perforation with diverticulitis vs cardiogenic given hx of heart failure - resolved Weaned off pressors, HDS, lactate normalized. TTE as discussed above Fluid resuscitation as needed. Acute respiratory failure - resolved. COPD: not on home oxygen. Continue home trelegy ellipta (TI) with prn albuterol. RT please do not discontinue KIM: nocturnal Cpap MJ: resolved, baseline sCr 0.9, peaked at 1.48, now trending down. Urine output adequate. Monitor. Diabetes, type 2: Hgb A1c 6.1 (12/07), holding Dapagliflozin (for cardiac GDMT), will resume closer to discharge. SSI as needed, accuchecks Q6h Acute Blood Loss Anemia vs Precipitous Drop in Hemoglobin Likely Secondary to Fluid Resuscitation: baseline hgb 12.4, minimal EBL, likely related to ongoing resuscitation and fluid shifting. Possible Transfusion Associated Circulatory overload: Hgb 6.9 on 01/04, started blood transfusion but developed subjective SOB with expiratory wheezing. Transfusion stopped, sent to lab for evaluation Current hgb stable. Low concern for active bleeding. Daily CBC. Complexity. Obesity, class I Body mass index is 33.95 kg/m . - Follow with PCP for dietary and lifestyle modifications. Malnutrition - Severe Protein-Calorie Malnutrition (01/05/2025 1:18 PM) secondary to Acute Illness / Injury (01/05/2025 1:18 PM) - Reviewed and agree with police commissioner's recommendations. Wound Documentation Wound Surgical Open Surgical Incision 12/24/24112 Anterior;Midline Abdomen (Active) Date First Assessed/Time First Assessed: 12/24/24112 Primary Wound Type: Surgical Secondary WoundType - Surgical: Open Surgical Incision Incision Type: midline Incision Closure/Dressing: Gauze;ABDWound Description: Fascia closed skin open an... Any conditions listed below are present on admission unless otherwise specified. .None Routine Hospital Care Fall Risk: Assessed for patient fall risk and discussed safety measures during rounding. Diet: DIET NPO with meds DVT prophylaxis: Jacquelinequis Abraham: None Code status: Full CENTRAL LINES: Central Line LDAs Active Central Line Access Devices Name Placement date Placement time Site Days PICC Line - Double Lumen 12/22/24520 basilic vein (medial side of arm), left 12/22/24 0521 -- 15 Central Line Indications: TPN If patient has multiple lines, please choose the answers of the next two questions to correlate with the lines listed above in descending order Can line/s be removed today? Select all that apply Line 1, no cannot be removed Dressing/s Clean/Dry/Intact?: Select all that apply Line 1, Dressing clean, dry, intact and No line currently in place Patient seen with colorectal team, plan of care discussed, and they are in agreement. Arturo Thao MD For patients located in or [facility] please page [phone] * Alejandro Ventura RN - 01/05/2025 2:24 PM EDT Care Management Progress Note Received message back from [employer] [facility] who advised they received the order but not supporting documentation. Faxed supporting documentation to [phone] and faxed documentation to Thanh at [email or web address] per his request. Per Thanh, he received the documentation and uploaded the documents to the order. * Alejandro Ventura RN - 01/05/2025 1:19 PM EDT Care Management Progress Note Sent message to [employer] [facility] Thanh requesting an update on the status of home wound vac, awaiting response. * Yamilka Zambrano, RD - 01/05/2025 10:12 AM EDT NUTRITION FOLLOW-UP Nutrition Recommendations and Plan of Care: Continue with Regular/Low Fiber Diet as tolerated. Pt declines any further ONS at this time. Monitor/encourage PO intake. Monitor GI function, skin integrity, weight changes, and labs. RD to continue to follow. Per A/P, Conrad Oconnell is a 69 y.o. male with a PMH of long-standing persistent Afib (on metop 50 BID), HFrEF 2/2 rate uncontrolled Afib (LVEF reportedly 40% at OSH echo), COPD, Ulcerative Colitis, HTN, and KIM. He was admitted to an OSH on 12/13/24 with perforated sigmoid diverticulitis s/p underwent exp lap with drainage of abscess, washout and drain placement on 12/15 c/b Afib with RVR requiringan ICU admission. On 12/17, he developed worsening abdominal pain with distention and CT showed a new hypodense rim enhancing collection c/f new abscess & feculent output from AMY drain. He was transferred to [facility] for further management in the setting of worsening intra-abdominal abscesses and is now s/p open total abdominal colectomy with EI, SBR x2, repair of serosal tear, unbilical hernia repair with AMY placement on 12/24. Nutrition History/Assessment: Diet advanced to clear liquids 12/31 and regular 01/01. TPN halved 01/03. Plans to stop PN today. Visited pt at bedside this afternoon. Pt endorses weight loss 2/2 acute illness and frequent periods of NPO status. Reports he went at least a week without any nutrition (including PN). Per review of previous RD notes, appears pt had close to nothing to eat 12/13-12/24 (~10 days). Pt reports UBW of 254#. Per 's previous reports, pt's UBW is ~227-228# when without fluid. Pt reports any issues with appetite/intake prior to initial admission. Reports he has a good appetite now. Declines ONS stating heis going home tomorrow. Reports he will eat lots of protein at home (I.e., fish). Nutrition Focused Physical Exam: Nutrition Focused Physical Exam Completed?: completed Subcutaneous Fat Loss: Orbital Region (Orbital Fat Pads): mild Cheek Region (Buccal Fat Pads): mild Upper Arm Region (Triceps): moderate Thoracic and Lumbar Region (Ribs, Lower Back, Midaxillary Line): WDL Muscle Wasting: Hinduism Region (Temporalis Muscle): mild Clavicle Bone Region (Pectoralis Major, Trapezius Muscles): mild Shoulder and Acromion Process Region (Deltoid Muscle): moderate Dorsal Hand (Interosseous Muscle): deferred Scapular Bone Region (Trapezius, Supraspinatus, Infraspinatus Muscles): deferred Anterior Thigh and Patellar Region (Quadriceps Muscles): mild Posterior Calf Region (Gastrocnemius Muscle): moderate % PO Intake per docflowsheets: Breakfast Lunch Dinner 01/01 --- 0% 50% 01/02 25% 25% 25% 01/03 25% 75% --- 01/04 --- 100% --- has no known allergies. Current Diet Orders Procedures DIET REGULAR No Carbonated Beverages; Low Fiber Standing Status: Standing Number of Occurrences: 1 Additional Modifier:: No Carbonated Beverages Additional Modifier:: Low Fiber Ht: 5' 9 Current Wt: 104.3 kg (230#) Admit Wt: 102 kg (224 lb 14.4 oz) IBW: 72.7 kg (160#) %IBW: 143% BMI: 33.95 Weight History: Using admit wt, pt with significant 8% weight loss x 1 month. Using CBW, pt with significant 6% weight loss x 1 month. However, pt's reports the higher weight is r/t fluid. Wt Readings from Last 20 Encounters: 01/04/25 104.3 kg (230 lb) 12/22/24 104.9 kg - OSH 12/09/24 103.1 kg (227 lb 6.4 oz) 12/02/24 110.7 kg (244 lb 1.6 oz) meds reviewed: Scheduled: Reviewed, includes Cipro, insulin, Protonix Continuous: Reviewed, includes TPN Labs reviewed: Sodium Date Value Ref Range Status 01/05/2025 137 135 - 145 mmol/L Final Potassium Date Value Ref Range Status 01/05/2025 4.6 3.5 - 5.0 mmol/L Final Chloride Date Value Ref Range Status 01/05/2025 108 98 - 108 mmol/L Final CO2 Date Value Ref Range Status 01/05/2025 20 (L) 21 - 31 mmol/L Final BUN Date Value Ref Range Status 01/05/2025 20 7 - 25 mg/dL Final Creatinine Date Value Ref Range Status 01/05/2025 0.81 0.70 - 1.30 mg/dL Final Magnesium Date Value Ref Range Status 01/05/2025 1.9 1.6 - 2.6 mg/dL Final Phosphorous Date Value Ref Range Status 01/05/2025 3.5 2.2 - 4.6 mg/dL Final Albumin Date Value Ref Range Status 12/24/2024 2.6 (L) 3.5 - 5.0 g/dL Final Prealbumin Date Value Ref Range Status 01/03/2025 18 17 - 34 mg/dL Final C Reactive Protein Date Value Ref Range Status 12/26/2024 299.70 (H) <10.00 mg/L Final Glucose (POC Device) Date Value Ref Range Status 01/05/2025 101 Nonfasting Glucose: 70-179 mg/dL Final Hemoglobin A1C HPLC Date Value Ref Range Status 12/07/2024 6.1 (H) 4.7 - 5.6 % Final WBC/Hgb/Hct/Plts: 13.47/7.3/24.5/417 (01/05 534) Lab Results Component Value Date GLUCOSE 101 01/05/2025 GLUCOSE 108 01/05/2025 GLUCOSE 96 01/05/2025 GLUCOSE 93 01/04/2025 GLUCOSE 99 01/04/2025 GLUCOSE 108 01/04/2025 Lab Results Component Value Date HGBA1C 6.1 (H) 12/07/2024 Lab Results Component Value Date VCHQ14YHS 31.7 12/25/2024 Lab Results Component Value Date ZNCSERUM 52 (L) 12/25/2024 Lab Results Component Value Date SELENIUM 156 12/25/2024 GI: Last bm: 01/03 (Type 6-- fluffy pieces); hypoactive bowel sounds; tender abdomen +ileostomy; output past 3 24 hours: 525/435/355 mL/day Enteral access: none Skin: Luis Score: 19 Edema- 1+(trace): L/R hand, generalized and 2+(mild): BLE, L arm Active Wounds: Wound Surgical Open Surgical Incision 12/24/24 0113 Anterior;Midline Abdomen (12) I/O: +5.5L net since admit Estimated Nutrition Needs: Weight Used: 73 kg (IBW) EEN: 8710-8660 kcal/day (28-33 kcal/kg) EPN: 102-131 g/day (1.4-1.8 g/kg) EFN: 2190 mL/day (30 mL/kg) Malnutrition Statement: Does the patient meet criteria for malnutrition: Yes Etiology of Malnutrition: Acute Illness / Injury Malnutrition Severity: Severe Protein-Calorie Malnutrition as evidenced by clinical characteristics: Energy intake: Less than or equal to 50% energy intake compared to estimated needs for greater thanor equal to 5 days Loss of Subcutaneous Fat Loss: Mild Loss of Muscle Mass Loss: Moderate *Based on The Academy and ASPEN Indicators to Diagnose Malnutrition (AAIM) criteria (2012) Yamilka Zambrano MS, RD, LD, [facility] Pager #[phone] * Alejandro Ventura RN - 01/05/2025 8:47 AM EDT Care Management Progress Note Submitted wound vac order to [facility] provider. Met with patient to review discharge and needs. Advised patient of wound vac order. Discussed otherdischarge needs. Reviewed choice of DME providers for ostomy supplies, patient has no preference. Reserved [facility] and advised [facility] of likely discharge plan. Patient also had no preference of DME providers for walker. Ordered walker from [facility]. No other needs identified at this time. Placed my contact information in patients AVS with instructions for the patient to call this CM if he has any issues after discharge with ostomy supplies, wound vac or HH. * Daniela Alberts [facility] - 01/05/2025 8:37 AM EDT Department of Pharmacy TPN Consult Note Patient: Conrad Oconnell Room/Bed: 1038/A TPN will stop on 01/05 PM. Please contact pharmacy with any questions. Name: Daniela Alberts RPH Phone: [phone] Date/Time: 01/05/2025 8:37 AM * Bianka Bunch, ANTHROPOLOGY AND ARCHEOLOGY INSTRUCTOR-OFFSET LABEL REWINDER - 01/05/2025 7:03 AM EDT Colorectal Surgery Daily Progress Note Attending: Barbara Call MD Length of Stay: 14 Surgery: s/p open total abdominal colectomy with EI, SBR x2, repair of serosal tear, umbilical hernia repair with AMY placement on 12/24 Subjective/Interval events: HDS, AF. Hgb dropped yesterday morning, received blood transfusion but developed SOB with expiratory wheezing and no hypoxia.EKG obtained, CXR w/o acute process. Wheezing relieved with prn albuterol. RBC discontinued, sent to blood bank for evaluation. Feeling good this morning. Frustrated and anxious to go home. Tolerating PO without NV, states appetite is good and heis taking in good po intake. Having ostomy function, pain controlled on current regimen. O:BP 139/65 (BP Location: Right arm, BP Position: Lying) Pulse 85 Temp 97.7 F (36.5 C) (Oral) Resp 16 Ht 1.753 m (5' 9.02) Wt 104.3 kg (230 lb) Comment: bed SpO2 96% BMI 33.95 kg/m Smoking Status Former 01/04 0700 - 01/05 0659 In: 1061.4 [P.O.:600] Out: 3080 [Urine:2725] PE: General: NAD, lying in bed Pulm: Respirations easy and non labored Abd: soft, nontender, non distended. Stoma pink and protruding above skin level with brown stool inostomy appliance, IR drain with serous drainage, midline abdominal incision with wound vac with adequate seal Labs: WBC/Hgb/Hct/Plts: 13.47/7.3/24.5/417 (01/05 534) Bun/Creat/Cl/CO2/Glucose: 20/0.81/108/20/101 (01/05 534-01/05 0545) Na/K+/Phos/Mg/Ca: 137/4.6/3.5/1.9/-- (01/05 1648) A/P: Conrad Oconnell is a 69 y.o. male with a PMH of long-standing persistent Afib (on metop 50 BID), HFrEF 2/2 rate uncontrolled Afib (LVEF reportedly 40% at OSH echo), COPD, Ulcerative Colitis, HTN, and KIM. He was admitted to an OSH on 12/13/24 with perforated sigmoid diverticulitis s/p underwent exp lap with drainage of abscess, washout and drain placement on 12/15 c/b Afib with RVR requiring an ICU admission. On 12/17, he developed worsening abdominal pain with distention and CT showed a new hypodense rim enhancing collection c/f new abscess & feculent output from AMY drain. He was transferred to [facility] for further management in the setting of worsening intra-abdominal abscesses and is now s/p open total abdominal colectomy with EI, SBR x2, repair of serosal tear, unbilical hernia repair with AMY placement on 12/24. Today's Plan Continue regular diet Continue calorie counts, encourage po intake Stop TPN Discontinue IR drain Continue ATB Dispo planning Ulcerative colitis: not on biologics, stop home prednisone, no indication for home budesonide Colonic perforation: 2/2 sigmoid diverticulitis vs Ulcerative colitis Intra-abdominal abscess: likely 2/2 the above. S/p surgery (see above) Path pending +ROBF DIET REGULAR No Carbonated Beverages; Low Fiber Parenteral Nutrition Custom +/- Lipids (Central TPN) Calorie counts, encourage po intake Stop TPN tonight CT A/P (12/30) abscesses with adjacent inflammation, surgical drain not in place to the collections,no c/f perforation, reactive small bowel inflammation and ileus IR consulted, appreciate assistance: s/p drain placement 12/30 Cultures: (IR aspirate 12/30): gram stain negative ATB (empiric): zosyn (12/23-12/28), cefepime (12/30, 01/02-01/04) Ceftriaxone (12/30- 01/01), flagyl (12/30- 01/07), PO cipro/flagyl (6/17-current). Original EoT was 01/07 Ceftriaxone changed back to cefepime given worsening WBC count Wound care: wound vac (MWF) WOCN consult for new ostomy AMY drain removed 01/04 Discontinue IR drain 01/05 Protein calorie malnutrition: Lining Layer consulted, appreciate recommendations DIET REGULAR No Carbonated Beverages; Low Fiber Parenteral Nutrition Custom +/- Lipids (Central TPN) Add oral supplements with calorie counts Discontinue TPN 01/05 Thiamine for risk of refeeding EoT 12/31 NICM (POA): per chart review possibly 2/2 afib tachycardia mediated Chronic systolic HFrEF (POA) HTN (POA) Non obstructive CAD (POA) Persistent A fib (POA) s/p DCCV 12/08 on eliquis, chadsvasc 3 Coagulopathy: on alf anticoagulation (POA) Long-standing persistent Atrial fibrillation (POA): s/p DCCV on 11/18, on eliquis and tikosyn at home, [id number] = 3. EP consulted, appreciate recommendations - signed off Previously on amiodarone infusion, transitioned to po Home metoprolol dosin mg BID Metoprolol 25mg BID initiated - will discharge on this dosage Troponin negative Echo: Normal left ventricular size. Global LV dysfunction. EF 35%. Normal right ventricular size and function. No significant valvular disease identified. Home Tikosyn discontinued Holding home furosemide & Aldactone Heparin gtt discontinued 01/03, transitioned to home Eliquis Can undergo 14day MCT and EP follow up after discharge (orders placed) Acute pain: multimodal pain regimen: scheduled tylenol, gabapentin, lidocaine patch Prn Oxycodone, Shock: possibly septic 2/2 intra-abdominal abscess r/t colonic perforation with diverticulitis vs cardiogenic given hx of heart failure - resolved Weaned off pressors, HDS, lactate normalized. TTE as discussed above Fluid resuscitation as needed. Acute respiratory failure - resolved. COPD: not on home oxygen. Continue home trelegy ellipta (TI) with prn albuterol. RT please do not discontinue KIM: nocturnal Cpap MJ: resolved, baseline sCr 0.9, peaked at 1.48, now trending down. Urine output adequate. Monitor. Diabetes, type 2: Hgb A1c 6.1 (12/07), holding Dapagliflozin (for cardiac GDMT), will resume closer to discharge. SSI as needed, accuchecks Q6h Acute Blood Loss Anemia vs Precipitous Drop in Hemoglobin Likely Secondary to Fluid Resuscitation: baseline hgb 12.4, minimal EBL, likely related to ongoing resuscitation and fluid shifting. Possible Transfusion Associated Circulatory overload: Hgb 6.9 on 01/04, started blood transfusion but developed subjective SOB with expiratory wheezing. Transfusion stopped, sent to lab for evaluation Current hgb stable. Low concern for active bleeding. Daily CBC. Complexity. Hypocalcemia - Continue to monitor and replete. Obesity, class I Body mass index is 33.95 kg/m . - Follow with PCP for dietary and lifestyle modifications. Wound Documentation Wound Surgical Open Surgical Incision 12/24/24 011 Anterior;Midline Abdomen (Active) Date First Assessed/Time First Assessed: 12/24/24112 Primary Wound Type: Surgical Secondary WoundType - Surgical: Open Surgical Incision Incision Type: midline Incision Closure/Dressing: Gauze;ABDWound Description: Fascia closed skin open an... Any conditions listed below are present on admission unless otherwise specified. .None Routine Hospital Care Fall Risk: Assessed for patient fall risk and discussed safety measures during rounding. Diet: DIET REGULAR No Carbonated Beverages; Low Fiber Parenteral Nutrition Custom +/- Lipids (Central TPN) DVT prophylaxis: Lazara Abraham: None Code status: Full CENTRAL LINES: Central Line LDAs Active Central Line Access Devices Name Placement date Placement time Site Days PICC Line - Double Lumen 12/22/24 05 basilic vein (medial side of arm), left 12/22/24 05 -- 14 Central Line Indications: TPN If patient has multiple lines, please choose the answers of the next two questions to correlate with the lines listed above in descending order Can line/s be removed today? Select all that apply Line 1, no cannot be removed Dressing/s Clean/Dry/Intact?: Select all that apply Line 1, Dressing clean, dry, intact and No line currently in place Patient seen with colorectal team, plan of care discussed, and they are in agreement. DANIAL Carballo For patients located in or [facility] please page [phone] * Alejandro Ventura RN - 01/04/2025 3:15 PM EDT Care Management Progress Note Received message that [facility] is out of network for patients home wound vac. Updated primary team. Checking with [facility] about them being in network. * Alejandro Ventura RN - 01/04/2025 12:44 PM EDT Care Management Progress Note Submitted wound vac order via [facility] along with supporting documentation * Daniela Alberts [facility] - 01/04/2025 12:01 PM EDT Department of Pharmacy TPN Consult Note Patient: Conrad Oconnell Room/Bed: [facility] Recommendation: Chemistries, intake/output, glycemic control, and medications reviewed. Electrolytes replacement outside TPN ordered: Not applicable. Current maintenance IV fluids: None Will continue decreased TPN today with the plan to stop TPN tomorrow if tolerating diet. With potassium and phosphate continuing to trend up, I will decrease the potassium phosphate in the TPN from 40 mmol to 20 mmol. I will also balance the chloride:acetate by increasing sodium acetate to 50 mEq from 25 mEq. Pharmacy will continue to follow. TPN Formula: Current Rate: continuous TPN at 50 mL/hr. (volume 1200 mL) Rate for new bag this evening at 2200: cycled TPN over 50 hours. (volume 1200 mL) TPN Goal Volume: 1200 mL Lipid: SMOFlipid given daily See current IS order for electrolyte components and administration details. Please refer to most recent dietitian consult note for nutritional assessment and formula including macronutrient recommendations. . Assessment: Lab Values: Albumin Date Value Ref Range Status 12/24/2024 2.6 (L) 3.5 - 5.0 g/dL Final Prealbumin Date Value Ref Range Status 01/03/2025 18 17 - 34 mg/dL Final BUN Date Value Ref Range Status 01/04/2025 24 7 - 25 mg/dL Final Creatinine Date Value Ref Range Status 01/04/2025 0.69 (L) 0.70 - 1.30 mg/dL Final Glucose Date Value Ref Range Status 01/04/2025 100 Nonfastin-179 mg/dL; Fastin-99 mg/dL Final Glucose (POC Device) Date Value Ref Range Status 01/04/2025 108 Nonfasting Glucose: 70-179 mg/dL Final 01/03/2025 103 Nonfasting Glucose: 70-179 mg/dL Final Hemoglobin A1C HPLC Date Value Ref Range Status 12/07/2024 6.1 (H) 4.7 - 5.6 % Final Sodium Date Value Ref Range Status 01/04/2025 135 135 - 145 mmol/L Final 01/03/2025 136 135 - 145 mmol/L Final Chloride Date Value Ref Range Status 01/04/2025 109 (H) 98 - 108 mmol/L Final 01/03/2025 109 (H) 98 - 108 mmol/L Final Potassium Date Value Ref Range Status 01/04/2025 4.9 3.5 - 5.0 mmol/L Final 01/03/2025 4.7 3.5 - 5.0 mmol/L Final CO2 Date Value Ref Range Status 01/04/2025 18 (L) 21 - 31 mmol/L Final 01/03/2025 21 21 - 31 mmol/L Final Phosphorous Date Value Ref Range Status 01/04/2025 3.9 2.2 - 4.6 mg/dL Final 01/03/2025 2.6 2.2 - 4.6 mg/dL Final Calcium Date Value Ref Range Status 12/28/2024 8.0 (L) 8.6 - 10.5 mg/dL Final 12/26/2024 7.7 (L) 8.6 - 10.5 mg/dL Final ICA Date Value Ref Range Status 01/04/2025 4.64 4.60 - 5.30 mg/dL Final 01/03/2025 4.61 4.60 - 5.30 mg/dL Final Magnesium Date Value Ref Range Status 01/04/2025 2.3 1.6 - 2.6 mg/dL Final 01/03/2025 2.2 1.6 - 2.6 mg/dL Final Triglycerides Date Value Ref Range Status 01/03/2025 155 (H) <150 mg/dL Final Comment: [<150 mg/dL: Desirable] [150-199 mg/dL: Borderline] [200-499 mg/dL: High] [>500 mg/dL: Very High] 12/29/2024 145 <150 mg/dL Final Comment: [<150 mg/dL: Desirable] [150-199 mg/dL: Borderline] [200-499 mg/dL: High] [>500 mg/dL: Very High] Bilirubin Total Date Value Ref Range Status 12/24/2024 0.6 <1.5 mg/dL Final 12/07/2024 1.0 <1.5 mg/dL Final Fluid Management (24 hrs): I/O last 3 completed shifts: In: 2971.5 [P.O.:686; I.V.:28.2; TPN:1833.9; IV Piggyback:423.4] Out: 2064 [Urine:1530; Drains:50; Other:50] Pharmacy will continue to follow. Name: Daniela Alberts RPH Phone: [phone] Date/Time: 01/04/2025 12:01 PM * Alejandro Ventura RN - 01/04/2025 10:51 AM EDT Care Management Progress Note Initiated wound vac order. Requested wound measurements from [facility]. HH choice still pending. * Vipin Nguyen OT - 01/04/2025 10:21 AM EDT Acute Occupational Therapy Treatment Prior Gross Functional Mobility: independent Current AM-PAC score(s): CURRENT AM-PAC Activity Raw Score: 16 Based on the above AM-PAC score(s), and OT clinical judgment, discharge destination recommendation is: Home with Home Health Barriers to discharge home: Patient needs assistance with functional mobility, Patient needs assistance with ADLs Mobility equipment available at home: straight cane ADL equipment available at home: Equipment recommendations for discharge: to be determined Equipment issued: Current therapy frequency recommendation(s) in acute: 5 times a week Precautions and Weightbearing Status: Wound vac, AMY drain (ostomy) Patient Safety Communication Prior to Visit: Nursing Subjective: Patient agreeable to all therapy directed tasks this date but reports had a breathing issue this AM Pain: General Pain Documentation (Adult, OB, Peds) Presence of Pain: denies pain/discomfort Presence of Pain Score (Auto-calculated): 0 Objective/Observation: Vitals/Vitals Responses to Treatment: WNL O2 Device: room air Cognition Overall Cognitive Status: Within Functional Limits Arousal/Alertness: Appropriate responses to stimuli Orientation Level: Oriented X4 ADL Assessment/Intervention: ADLs: Grooming Assistance: Stand by Grooming Location: edge of bed Grooming Deficit: Increased time to complete, Activity tolerance, Oral care Grooming Skilled Rationale (Verbal/Tactile/Visual/Demonstration): Facilitate positioning, Supervision, Setup Extremity Assessments: See OT Evaluation flowsheet for Extremity Measurement updates. Balance: Sitting Balance Static Sitting-Level of Assistance: Modified independent Dynamic Sitting-Level of Assistance: Supervision Sitting Balance Skilled Intervention/Details: pt sat EOB for ~15 minutes with no LOB Standing Balance Static Standing-Level of Assistance: Stand-by assist, Supervision Dynamic Standing-Level of Assistance: Stand-by assist Standing-Balance Support: Gait belt, Front-wheeled walker Skilled Rationale: Verbal cues, Hand placement Standing Balance Skilled Intervention/Details: pt tolerated standing for ~4 minutes this date before requiring a seated rest break Skin and Edema: Mobility Assessment/Intervention: Supine to Sit Mobility Treasure Level: Supine->Sit: stand-by assist Bed Features/Set-up: Supine->Sit: Head of bed elevated, Use of bed rail Skilled Rationale: Verbal cues, Hand placement, Positioning, Sequencing Transfer Assessment/Intervention: Sit to Stand Transfer Treasure Level: Sit->Stand: contact guard assist Assistive Device: Sit->Stand: gait belt, front-wheeled walker Skilled Rationale: Verbal cues, Hand placement Skilled Intervention/Details: Sit->Stand: x 2 from EOB Outcome Score(s): CURRENT AM-PAC Daily Activity Inpatient Short Form Putting on/Taking Off Lower Body Clothin - A Lot of Assistance Bathin - A Lot of Assistance Toiletin - A Lot of Assistance Putting on/Taking Off Upper Body Clothin - A Little Assistance Groomin - A Little Assistance Eatin - No Assistance CURRENT AM-PAC Activity Raw Score: 16 CURRENT AM-PAC Activity Functional Limitation/Modifier: 53.32% Currently Impaired in Daily Activity- CK Interventions: Assessment & Plan: Pt continues to present with deficits in self care, functional mobility, balance, endurance and requires continued skilled OT services to address functional deficits and maximize safety and independence in ADLs for optimal independence in self care and functional mobility. Patient Instruction/Education this session: Learners: Patient Education provided: Activity outside of therapy Teaching method: Audiovisual Learner response: Applies knowledge Learning preferences: Auditory Plan for next session: standing tolerance, LB dressing tasks and training Acute OT Goals Plan of Care by Vipin Nguyen OT at 01/04/2025 10:21 AM Version 1 of 1 Problem: OT - ADLs Goal: Grooming - Patient will complete grooming in standing with contact guard assistance for improved ability to safely complete ADLs. Outcome: Progressing Problem: OT - Transfers Goal: Transfers Supine -> Sit - Patient will perform supine to/from sit with flat bed & no rail and minimal assistance to improve participation in ADLs. Outcome: Progressing Goal: Transfers Toilet/ Bedside Commode - Patient will transfer to/from toilet/bedside commode withminimal assistance for improved ability to safely complete ADLs. Outcome: Progressing Problem: OT - Endurance Goal: Endurance Functional Task Standing - Patient will engage in standing functional task for 6-8 minutes with contact guard assistance to improve activity tolerance necessary for safe ADL completion at recommended discharge destination. Outcome: Progressing OT treatment consisted of the following to work and progress towards the above goal(s): OT Evaluation and Treatment Time Therapeutic Activity Time Entry: 25 Treating Therapist: Vipin Nguyen OT Additional Details: OT Co-Eval/Treatment Information Co-evaluation/co-treatment performed?: No simultaneous skilled care performed PPE used during patient interaction: gloves Patient location at end of session: edge of bed Alarms on at end of session: RN aware Needs in reach. Time In: 1021 Time Out: 1055 Total Visit Time: 34 minutes Total Treatment Time (skilled, billable minutes): 25 minutes Upon discontinuation of Acute Care Occupational Therapy Services or patient discharge from the hospital this note represents the current Occupational Therapy Discharge Summary. * Mahnaz Valadez ANTHROPOLOGY AND ARCHEOLOGY INSTRUCTOR-OFFSET LABEL REWINDER - 01/04/2025 7:40 AM EDT Colorectal Surgery Daily Progress Note Attending: Barbara Call MD Length of Stay: 13 Surgery: s/p open total abdominal colectomy with EI, SBR x2, repair of serosal tear, umbilical hernia repair with AMY placement on 12/24 Subjective/Interval events: HDS, AF. Pain controlled. Tolerating PO without NV, poor appetite, calorie counts not available. Ostomy output 435 ml, brown stool. O:BP 137/66 (BP Location: Right arm, BP Position: Lying) Pulse 77 Temp 97.8 F (36.6 C) (Oral) Resp 18 Ht 1.753 m (5' 9.02) Wt 102.3 kg (225 lb 8 oz) SpO2 98% BMI 33.29 kg/m Smoking Status Former 01/03 0700 - 01/04 0659 In: 2971.5 [P.O.:686; I.V.:28.2] Out: 2064 [Urine:1530; Drains:50] PE: General: NAD, lying in bed Pulm: Respirations easy and non labored Abd: soft, nontender, non distended. Stoma pink and protruding above skin level with brown stool inostomy appliance, AMY with serosanguineous drainage, midline abdominal incision with wound vac with adequate seal Labs: WBC/Hgb/Hct/Plts: 13.82/6.9/23.8/371 (01/04 0402-01/04 453) Bun/Creat/Cl/CO2/Glucose: --/--/--/--/108 (01/04 453) A/P: Conrad Oconnell is a 69 y.o. male with a PMH of long-standing persistent Afib (on metop 50 BID), HFrEF 2/2 rate uncontrolled Afib (LVEF reportedly 40% at OSH echo), COPD, Ulcerative Colitis, HTN, and KIM. He was admitted to an OSH on 12/13/24 with perforated sigmoid diverticulitis s/p underwent exp lap with drainage of abscess, washout and drain placement on 12/15 c/b Afib with RVR requiring an ICU admission. On 12/17, he developed worsening abdominal pain with distention and CT showed a new hypodense rim enhancing collection c/f new abscess & feculent output from AMY drain. He was transferred to [facility] for further management in the setting of worsening intra-abdominal abscesses and is now s/p open total abdominal colectomy with EI, SBR x2, repair of serosal tear, unbilical hernia repair with AMY placement on 12/24. Today's Plan Follow up AM labs not resulted by time of rounds TPN: continue at reduced dose Calorie counts Antibiotics: change to PO cipro/flagyl. Discontinue cefepime Hold tizanadine while on cipro 2/2 drug interactions. Start flexeril instead Transfuse 1 prbc Remove AMY, continue IR drain Ulcerative colitis: not on biologics, stop home prednisone, no indication for home budesonide Colonic perforation: 2/2 sigmoid diverticulitis vs Ulcerative colitis Intra-abdominal abscess: likely 2/2 the above. S/p surgery (see above) Path pending +ROBF DIET REGULAR No Carbonated Beverages; Low Fiber Parenteral Nutrition Custom +/- Lipids (Central TPN) CT A/P (12/30) abscesses with adjacent inflammation, surgical drain not in place to the collections,no c/f perforation, reactive small bowel inflammation and ileus IR consulted, appreciate assistance: s/p drain placement 12/30 Cultures: (IR aspirate 12/30): gram stain negative ATB (empiric): zosyn (12/23-12/28), cefepime (12/30, 01/02-01/04) Ceftriaxone (12/30- 01/01), flagyl (12/30- 01/07), PO cipro/flagyl (01/04-current). Original EoT was 01/07 Ceftriaxone changed back to cefepime given worsening WBC count Wound care: wound vac (MWF) WOCN consult for new ostomy AMY drain to bulb suction IR drain (12/30) Protein calorie malnutrition: Lining Layer consulted, appreciate recommendations DIET REGULAR No Carbonated Beverages; Low Fiber Parenteral Nutrition Custom +/- Lipids (Central TPN) Add oral supplements with calorie counts Continue TPN until adequate PO - will half this evening 01/03 with goal to stop tomorrow with good po intake. 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 EP consulted, appreciate recommendations - signed off Previously on amiodarone infusion, transitioned to po Home metoprolol dosin mg BID Metoprolol 25mg BID initiated - will discharge on this dosage Troponin negative Echo: Normal left ventricular size. Global LV dysfunction. EF 35%. Normal right ventricular size and function. No significant valvular disease identified. Home Tikosyn discontinued Holding home furosemide & Aldactone Heparin gtt discontinued 01/03, transitioned to home Eliquis Can undergo 14day MCT and EP follow up after discharge (orders placed) Acute pain: multimodal pain regimen: scheduled tylenol, gabapentin, lidocaine patch Prn Oxycodone, Shock: possibly septic 2/2 intra-abdominal abscess r/t colonic perforation with diverticulitis vs cardiogenic given hx of heart failure - resolved Weaned off pressors, HDS, lactate normalized. TTE as discussed above Fluid resuscitation as needed. Acute respiratory failure - resolved. COPD: not on home oxygen. Continue home trelegy ellipta (TI) with prn albuterol. RT please do not discontinue KIM: nocturnal Cpap MJ: resolved, baseline sCr 0.9, peaked at 1.48, now trending down. Urine output adequate. Monitor. Diabetes, type 2: Hgb A1c 6.1 (12/07), holding Dapagliflozin (for cardiac GDMT), will resume closer to discharge. SSI as needed, accuchecks Q6h Acute Blood Loss Anemia vs Precipitous Drop in Hemoglobin Likely Secondary to Fluid Resuscitation: baseline hgb 12.4, minimal EBL, likely related to ongoing resuscitation and fluid shifting. Last transfusion 12/31. Current hgb stable. Low concern for active bleeding. Daily CBC. Complexity. Obesity, class I Body mass index is 33.29 kg/m . - Follow with PCP for dietary and lifestyle modifications. Wound Documentation Wound Surgical 12/24/24 011 Anterior;Midline Abdomen (Active) Date First Assessed/Time First Assessed: 12/24/24112 Primary Wound Type: Surgical Incision Type: midline Incision Closure/Dressing: Gauze;ABD Wound Description: Fascia closed skin open and packed with 1 kerlex roll damp Wound Location Orientat... Any conditions listed below are present on admission unless otherwise specified. .None Routine Hospital Care Fall Risk: Assessed for patient fall risk and discussed safety measures during rounding. Diet: DIET REGULAR No Carbonated Beverages; Low Fiber Parenteral Nutrition Custom +/- Lipids (Central TPN) DVT prophylaxis: Eliquis Abraham: None Code status: Full CENTRAL LINES: Central Line LDAs Active Central Line Access Devices Name Placement date Placement time Site Days PICC Line - Double Lumen 12/22/24 05 basilic vein (medial side of arm), left 12/22/24 0521 -- 13 Central Line Indications: TPN If patient has multiple lines, please choose the answers of the next two questions to correlate with the lines listed above in descending order Can line/s be removed today? Select all that apply Line 1, no cannot be removed Dressing/s Clean/Dry/Intact?: Select all that apply Line 1, Dressing clean, dry, intact and No line currently in place Patient seen with colorectal team, plan of care discussed, and they are in agreement. DANIAL Farah For patients located in or [facility] please page [phone] * DANIAL Carballo - 01/03/2025 1:57 PM EDT Colorectal Surgery Daily Progress Note Attending: Barbara Call MD Length of Stay: 12 Surgery: s/p open total abdominal colectomy with EI, SBR x2, repair of serosal tear, umbilical hernia repair with AMY placement on 12/24 Subjective/Interval events: AFHDS, pain improved this morning. Tolerating a low fiber diet w/o nausea or vomiting. C/o decreased appetite and does not like the food choices he has been given. Ileostomy functioning. O:BP 96/52 (BP Location: Right arm, BP Position: Lying) Pulse 65 Temp 98.1 F (36.7 C) (Oral) Resp 16 Ht 1.753 m (5' 9.02) Wt 102.3 kg (225 lb 8 oz) SpO2 95% BMI 33.29 kg/m Smoking Status Former 01/02 0700 - 01/03 0659 In: 3419.2 [P.O.:350; I.V.:342.7] Out: 1765 [Urine:1175; Drains:25] PE: General: NAD, lying in bed Pulm: Respirations easy and non labored Abd: soft, nontender, non distended. Stoma pink and protruding above skin level with stool in ostomy appliance, AMY with serosanguineous drainage, midline abdominal incision with wound vac with good seal and serous output Labs: WBC/Hgb/Hct/Plts: 14.25/7.2/24.2/397 (01/03 139) Bun/Creat/Cl/CO2/Glucose: 22/0.66/109/21/114 (01/03 139) Na/K+/Phos/Mg/Ca: 136/4.7/2.6/2.2/-- (01/03 139) A/P: Conrad Oconnell is a 69 y.o. male with a PMH of long-standing persistent Afib (on metop 50 BID), HFrEF 2/2 rate uncontrolled Afib (LVEF reportedly 40% at OSH echo), COPD, Ulcerative Colitis, HTN, and KIM. He was admitted to an OSH on 12/13/24 with perforated sigmoid diverticulitis s/p underwent exp lap with drainage of abscess, washout and drain placement on 12/15 c/b Afib with RVR requiring an ICU admission. On 12/17, he developed worsening abdominal pain with distention and CT showed a new hypodense rim enhancing collection c/f new abscess & feculent output from AMY drain. He was transferred to [facility] for further management in the setting of worsening intra-abdominal abscesses and is now s/p open total abdominal colectomy with EI, SBR x2, repair of serosal tear, unbilical hernia repair with AMY placement on 12/24. Today's Plan Low fiber diet Add oral supplements, calorie counts Wean TPN this evening - will consider stopping tomorrow if better po intake Discontinue heparin gtt Resume home Eliquis Continue cefepime Ulcerative colitis: not on biologics, stop home prednisone, no indication for home budesonide Colonic perforation: 2/2 sigmoid diverticulitis vs Ulcerative colitis Intra-abdominal abscess: likely 2/2 the above. S/p surgery (see above) Path pending +ROBF Parenteral Nutrition Custom +/- Lipids (Central TPN) DIET REGULAR No Carbonated Beverages; Low Fiber Parenteral Nutrition Custom +/- Lipids (Central TPN) CT A/P (12/30) abscesses with adjacent inflammation, surgical drain not in place to the collections,no c/f perforation, reactive small bowel inflammation and ileus IR consulted, appreciate assistance: s/p drain placement 12/30 Cultures: (IR aspirate 12/30): gram stain NGTD ATB: zosyn (12/23-12/28), cefepime (12/30, 01/02-current) Ceftriaxone (12/30-01/01), flagyl (12/30- 01/07) Ceftriaxone changed back to cefepime given worsening WBC count Wound care: wound vac WOCN consult for new ostomy AMY drain to bulb suction Protein calorie malnutrition: Lining Layer consulted, appreciate recommendations Parenteral Nutrition Custom +/- Lipids (Central TPN) DIET REGULAR No Carbonated Beverages; Low Fiber Parenteral Nutrition Custom +/- Lipids (Central TPN) Add oral supplements with calorie counts Continue TPN until adequate PO - will half this evening 01/03 with goal to stop tomorrow with good po intake. Thiamine for risk of refeeding EoT 12/31 NICM (POA): per chart review possibly 2/2 afib tachycardia mediated Chronic systolic HFrEF (POA) HTN (POA) Non obstructive CAD (POA) Persistent A fib (POA) s/p DCCV 12/08 on eliquis, chadsvasc 3 Coagulopathy: on alf anticoagulation (POA) Long-standing persistent Atrial fibrillation (POA): s/p DCCV on 11/18, on eliquis and tikosyn at home, [id number] = 3. EP consulted, appreciate recommendations - signed off Previously on amiodarone infusion, transitioned to po Home metoprolol dosin mg BID Metoprolol 25mg BID initiated - will discharge on this dosage Troponin negative Echo: Normal left ventricular size. Global LV dysfunction. EF 35%. Normal right ventricular size and function. No significant valvular disease identified. Home Tikosyn discontinued Holding home furosemide & Aldactone Heparin gtt discontinued 01/03, transitioned to home Lazara Can undergo 14day MCT and EP follow up after discharge (orders placed) Acute pain: multimodal pain regimen: scheduled tylenol, gabapentin, lidocaine patch Prn Oxycodone, Shock: possibly septic 2/2 intra-abdominal abscess r/t colonic perforation with diverticulitis vs cardiogenic given hx of heart failure - resolved Weaned off pressors, HDS, lactate normalized. TTE as discussed above Fluid resuscitation as needed. Acute respiratory failure - resolved. COPD: not on home oxygen. Continue home trelegy ellipta with prn albuterol KIM: nocturnal Cpap MJ: resolved, baseline sCr 0.9, peaked at 1.48, now trending down. Urine output adequate. Monitor. Diabetes, type 2: Hgb A1c 6.1 (12/07), holding Dapagliflozin (for cardiac GDMT), will resume closer to discharge. SSI as needed, accuchecks Q6h Acute Blood Loss Anemia vs Precipitous Drop in Hemoglobin Likely Secondary to Fluid Resuscitation: baseline hgb 12.4, minimal EBL, likely related to ongoing resuscitation and fluid shifting. Last transfusion 12/31. Current hgb stable. Low concern for active bleeding. Daily CBC. Complexity. Obesity, class I Body mass index is 33.29 kg/m . - Follow with PCP for dietary and lifestyle modifications. Wound Documentation Wound Surgical 12/24/24 0113 Anterior;Midline Abdomen (Active) Date First Assessed/Time First Assessed: 12/24/24 011 Primary Wound Type: Surgical Incision Type: midline Incision Closure/Dressing: Gauze;ABD Wound Description: Fascia closed skin open and packed with 1 kerlex roll damp Wound Location Orientat... Any conditions listed below are present on admission unless otherwise specified. .None Routine Hospital Care Fall Risk: Assessed for patient fall risk and discussed safety measures during rounding. Diet: Parenteral Nutrition Custom +/- Lipids (Central TPN) DIET REGULAR No Carbonated Beverages; Low Fiber Parenteral Nutrition Custom +/- Lipids (Central TPN) DVT prophylaxis: Eliquis Abraham: None Code status: Full CENTRAL LINES: Central Line LDAs Active Central Line Access Devices Name Placement date Placement time Site Days PICC Line - Double Lumen 12/22/24 0521 basilic vein (medial side of arm), left 12/22/24 0521 -- 12 Central Line Indications: TPN If patient has multiple lines, please choose the answers of the next two questions to correlate with the lines listed above in descending order Can line/s be removed today? Select all that apply Line 1, no cannot be removed Dressing/s Clean/Dry/Intact?: Select all that apply Line 1, Dressing clean, dry, intact and No line currently in place Patient seen with colorectal team, plan of care discussed, and they are in agreement. DANIAL Carballo For patients located in or [facility] please page [phone] * Yamilka Zambrano RD - 01/03/2025 11:27 AM EDT Brief Nutrition Note: Pt last assessed by RD 12/30. Please refer to RD note 12/30 for full nutrition assessment. Pt remainson full PN to meet 100% of needs. Diet advanced to clear liquids 12/31 and regular 01/01. Pt consuming 25% of most meals. Putting 225-560 mL/day out of ileostomy in past 3 days. Per discussion with team, plans to order kcal counts and ONS. Team would like to start weaning PN. This RD has discussed recommendations to not completely stop PN until pt eating adequately. Please change current PN regimen to 140/65/30 SMOF in 1200 mL to provide 1036 kcal and 65 g PRO, meeting ~50% pt's minimum kcal needs and ~65% of pt's minimum PRO needs. This RD to follow-up on PO intake and ability to further wean PN as able. Estimated Nutrition Needs: Weight Used: 73 kg (IBW) EEN: 4854-6077 kcal/day (28-33 kcal/kg) EPN: 102-131 g/day (1.4-1.8 g/kg) EFN: 2190 mL/day (30 mL/kg) + ileostomy output Yamilka Zambrano MS, RD, LD, CSNC Pager #[phone] * Alfie Carmona, PT - 01/03/2025 11:27 AM EDT Acute Physical Therapy Treatment Prior Gross Functional Mobility: independent Current AM-PAC score(s): CURRENT AM-PAC Mobility Raw Score: 18 Based on the above AM-PAC score(s) and PT clinical judgment, patient is a good candidate for discharge to Home with Home Health (initial 24/ supervision/assist, pt stated works from home and available to help as needed and daughter an ICU nurse) Barriers to discharge home: Patient needs assistance with functional mobility Mobility equipment available at home: straight cane ADL equipment available at home: Equipment needed for discharge: 2 wheeled walker Current therapy frequency recommendation in acute: PT Therapy Frequency: 5 times a week Activity Recommendations for outside of rehab session: x1 with 2ww/gait belt to chair/toilet Precautions and Weightbearing Status: Existing Precautions/Restrictions: abdominal, fall Wound vac, AMY drain Patient Safety Communication Prior to Visit: Nursing Subjective: Pt working with OT in the hallway upon PT arrival, agreeable to PT Pain: General Pain Documentation (Adult, OB, Peds) Presence of Pain: reports pain/discomfort Pain Location: abdomen, flank, right DVPRS (Defense and Veterans Pain Rating Scale) DVPRS: Rest: 5- moderate pain DVPRS: Activity: 8- severe pain Objective/Observation: Vitals/Vitals Responses to Treatment: no adverse reaction to session spo2 98% HR 75 Cognition Overall Cognitive Status: Within Functional Limits Arousal/Alertness: Appropriate responses to stimuli Orientation Level: Oriented X4 Following Commands: Follows all commands and directions without difficulty Safety Judgment: Good awareness of safety precautions Awareness of Errors: Assistance required to correct errors made Deficits: Fully aware of deficits Cognition Comments: cooperative with tx, cues for pacing Extremity Assessments: See PT Evaluation flowsheet for Extremity Measurement updates. Skin and Edema: Balance: Sitting Balance Static Sitting-Level of Assistance: Modified independent Dynamic Sitting-Level of Assistance: Supervision Skilled Rationale: Positioning, Full extension to upright positioning/posture Sitting Balance Skilled Intervention/Details: no lob EOB Standing Balance Static Standing-Level of Assistance: Contact guard, Stand-by assist Dynamic Standing-Level of Assistance: Minimum assistance Standing-Balance Support: Gait belt, Front-wheeled walker Skilled Rationale: Positioning, Sequencing, Hand placement, Full extension to upright positioning/posture Standing Balance Skilled Intervention/Details: challenged standing balance with ue support, cues for posture, wt shifting and stepping strategies Mobility Assessment/Intervention: Rolling/Turning Mobility Treasure Level: Rolling/Turning: contact guard assist Bed Features/Set-up: Rolling/Turning: Head of bed elevated, Use of bed rail Skilled Rationale: Positioning, Hand placement, Sequencing Skilled Intervention/Details: Rolling/Turning: cues for log rolling Scooting Bridging Mobility Treasure Level: Scooting/Bridging: moderate assist (50% patient effort) Bed Features/Set-up: Scooting/Bridging: Flat, Friction reducing device Skilled Rationale: Sequencing, Hand placement, Positioning Skilled Intervention/Details: Scooting/Bridging: pt able to help with LE and cues for techniques toboost hob Sit to Supine Mobility Treasure Level: Sit->Supine: contact guard assist Bed Features/Set-up: Sit->Supine: Head of bed elevated, Use of bed rail Skilled Rationale: Positioning, Sequencing, Hand placement Skilled Intervention/Details: Sit->Supine: cues for reverse log roll Transfer Assessment/Intervention: Sit to Stand Transfer Treasure Level: Sit->Stand: minimum assist (75% patient effort) (Min/Cga) Assistive Device: Sit->Stand: gait belt, front-wheeled walker Skilled Rationale: Hand placement, Sequencing, Positioning Skilled Intervention/Details: Sit->Stand: x 2 from EOB Stand to Sit Transfer Treasure Level: Stand->Sit: contact guard assist Assistive Device: Stand->Sit: gait belt, front-wheeled walker Skilled Rationale: Controlled descent for sitting, Hand placement Gait/Functional Mobility Assessment/Intervention: Gait Assessment Treasure Level: Gait: (Min/Cga) Assistive Device: Gait: gait belt, front-wheeled walker Ambulation Distance (Feet): 95 Gait Deviations Identified: decreased zachery, decreased gait speed, decreased weight shifting, flexed posture, decreased step length Gait Skilled Rationale: verbal, upright posture, reduce lateral weight shift, increase step length Skilled Intervention/Details - Gait: cues for posture, pacing, standing rest breaks, no overt lob noted Stairs Assessment/Intervention: Outcome Score(s): CURRENT AM-PAC Basic Mobility Inpatient Short Form Turning over in bed: 3 - A Little Assistance Moving from lying on back to sittin - A Little Assistance Moving to and from bed to chair: 3 - A Little Assistance Sitting/standing from chair: 3 - A Little Assistance Walk in hospital room: 3 - A Little Assistance Climbing 3-5 steps with a railin - A Little Assistance [facility]RENT [facility] Mobility Raw Score: 18 [facility]RENT [facility] Mobility Functional Limitation: 46.58% Impaired in Basic Mobility Interventions: Intervention 1 Intervention Name: Performed seated and supine ther ex mandy LE, seated leg ext, ankle PF/DF, hip abd, hip flexion x 10, supine quads set, ankle pumps, gluteal sets as tolerated with verbal cues for form and rest breaks to improve ROM, mobility and strength Assessment & Plan: Today's PT treatment session focused on: Balance, Posture, Transfers, Gait/Locomotion, Aerobic capacity/endurance. Pt demonstrates progression towards goals and PT POC adjusted to allow for progression. At this time, patient's deficits that contribute to impaired functional mobility include: Decreased ambulation distance/endurance, Limited standing tolerance, Difficulty with transfers, Decreased functional mobility. Pt would benefit from continued skilled PT to address noted deficits,improve safe functional mobility and return to prior level of function. Patient Instruction/Education this session: Learners: Patient Education provided: Adaptive equipment use, Activity outside of therapy, Balance training, Bed mobility, Discharge recommendations, Energy conservation strategies, Fall precautions, Gait training safety, Home exercise program Teaching method: Verbal Education/Instruction, Demonstration Learner response: Applies knowledge Learning preferences: Auditory, Visual Learning considerations: Pain/discomfort Plan for next session: gait, balance, stairs as able Acute PT Goals Plan of Care by Alfie Carmona PT at 01/03/2025 11:26 AM Version 1 of 1 Problem: PT - General Goals Goal: Supine <-> Sit Transfers - Patient will perform supine to/from sit transfers with modified independence and with use of hospital bed features in order to improve functional mobility and safety. Outcome: Progressing Goal: Sit <-> Stand Transfers - Patient will perform sit to/from stand transfers with modified independence and least restrictive device in order to improve functional mobility and safety. Outcome: Progressing Goal: Ambulation - Patient will ambulate 150 feet with modified independence and least restrictive device to improve ability to safely navigate home and community. Outcome: Progressing Problem: PT - General Goals Goal: Stairs - Patient will ascend/descend 3 stairs with modified independence, least restrictive device, and single railing(s) to improve ability to safely navigate home and community. Outcome: Ongoing PT treatment consisted of the following to progress towards the above goal(s): PT Evaluation and Treatment Time Therapeutic Exercise Time Entry: 10 Therapeutic Activity Time Entry: 4 Gait Training Time Entry: 9 Treating Therapist: Alfie Carmona PT Additional Details: PT Co-Eval/Treatment Information Co-evaluation/co-treatment performed?: Yes, combination of simultaneous billable and individual billable skilled care was necessary due to medical complexity and functional deficits Other discipline: OT Rationale for need to co-eval/treat: postural control Co-treatment goal focus: balance, mobility, transfer, endurance PPE used during patient interaction: gloves Patient location at end of session: bed with head of bed elevated Alarms on at end of session: none, RN aware Needs in reach. Time In: 1125 Time Out: 1148 Total Visit Time: 23 minutes Total Treatment Time (skilled, billable minutes): 23 minutes Upon discontinuation of Acute Care Physical Therapy Services or patient discharge from the hospitalthis note represents the current Physical Therapy Discharge Summary. * Vipin Nguyen OT - 01/03/2025 11:07 AM EDT Acute Occupational Therapy Treatment Prior Gross Functional Mobility: independent Current AM-PAC score(s): CURRENT AM-PAC Activity Raw Score: 16 Based on the above AM-PAC score(s), and OT clinical judgment, discharge destination recommendation is: Home with Home Health Barriers to discharge home: Patient needs assistance with functional mobility, Patient needs assistance with ADLs Mobility equipment available at home: straight cane ADL equipment available at home: Equipment recommendations for discharge: to be determined Equipment issued: Current therapy frequency recommendation(s) in acute: 5 times a week Precautions and Weightbearing Status: Wound vac, AMY drain Patient Safety Communication Prior to Visit: Nursing Subjective: Patient agreeable to all therapy directed tasks this date Pain: General Pain Documentation (Adult, OB, Peds) Presence of Pain: reports pain/discomfort Pain Location: abdomen, flank, right DVPRS (Defense and Veterans Pain Rating Scale) DVPRS: Rest: 5- moderate pain DVPRS: Activity: 5- moderate pain Objective/Observation: Vitals/Vitals Responses to Treatment: WNL O2 Device: room air Cognition Overall Cognitive Status: Within Functional Limits Arousal/Alertness: Appropriate responses to stimuli Orientation Level: Oriented X4 Following Commands: Follows all commands and directions without difficulty Extremity Assessments: See OT Evaluation flowsheet for Extremity Measurement updates. Balance: Sitting Balance Static Sitting-Level of Assistance: Modified independent Dynamic Sitting-Level of Assistance: Supervision Skilled Rationale: Positioning, Full extension to upright positioning/posture Standing Balance Static Standing-Level of Assistance: Contact guard Dynamic Standing-Level of Assistance: Minimum assistance Standing-Balance Support: Gait belt, Front-wheeled walker Skilled Rationale: Positioning, Sequencing Skin and Edema: Mobility Assessment/Intervention: Supine to Sit Mobility Treasure Level: Supine->Sit: minimum assist (75% patient effort) Bed Features/Set-up: Supine->Sit: Head of bed elevated, Use of bed rail Transfer Assessment/Intervention: Sit to Stand Transfer Treasure Level: Sit->Stand: minimum assist (75% patient effort) Assistive Device: Sit->Stand: gait belt, front-wheeled walker Skilled Rationale: Verbal cues, Hand placement, Sequencing Skilled Intervention/Details: Sit->Stand: x 1 from EOB Functional Mobility: Functional Mobility Treasure Level: Functional Mobility/Gait: contact guard assist Assistive Device: Functional Mobility/Gait: gait belt, front-wheeled walker Functional Mobility Distance: Distance needed for common household mobility Functional Mobility Deficits: Activity tolerance, Balance, Pain Outcome Score(s): [facility] Daily Activity Inpatient Short Form Putting on/Taking Off Lower Body Clothin - A Lot of Assistance Bathin - A Lot of Assistance Toiletin - A Lot of Assistance Putting on/Taking Off Upper Body Clothin - A Little Assistance Groomin - A Little Assistance Eatin - No Assistance [facility] Activity Raw Score: 16 [facility] Activity Functional Limitation/Modifier: 53.32% Currently Impaired in Daily Activity- CK Interventions: Assessment & Plan: Pt continues to present with deficits in self care, functional mobility, balance, endurance and requires continued skilled OT services to address functional deficits and maximize safety and independence in ADLs for optimal independence in self care and functional mobility. Patient Instruction/Education this session: Learners: Patient Education provided: Activity outside of therapy Plan for next session: functional transfers Acute OT Goals Plan of Care by Vipin Nguyen OT at 01/03/2025 11:07 AM Version 1 of 1 Problem: OT - Transfers Goal: Transfers Supine -> Sit - Patient will perform supine to/from sit with flat bed & no rail and minimal assistance to improve participation in ADLs. Outcome: Progressing Problem: OT - Endurance Goal: Endurance Functional Task Standing - Patient will engage in standing functional task for 6-8 minutes with contact guard assistance to improve activity tolerance necessary for safe ADL completion at recommended discharge destination. Outcome: Progressing OT treatment consisted of the following to work and progress towards the above goal(s): OT Evaluation and Treatment Time Therapeutic Activity Time Entry: 23 Treating Therapist: Vipin Nguyen OT Additional Details: OT Co-Eval/Treatment Information Co-evaluation/co-treatment performed?: No simultaneous skilled care performed PPE used during patient interaction: gloves Patient location at end of session: edge of bed Alarms on at end of session: (PT present in room) Needs in reach. Time In: 1107 Time Out: 1130 Total Visit Time: 23 minutes Total Treatment Time (skilled, billable minutes): 23 minutes Upon discontinuation of Acute Care Occupational Therapy Services or patient discharge from the hospital this note represents the current Occupational Therapy Discharge Summary. * DANIAL Dong - 01/03/2025 10:40 AM EDT Interventional Radiology Progress Note: Procedure: Percutaneous image guided intra-abdominal drain placement on 12/30/24 (Dr. Smith) Pertinent IR History: Patient is a 69 y.o. male with a pertinent past medical history of HTN, HPL, CAD, HFrEF, AF, KIM, COPD, and UC who presented with perforated diverticulitis, s/p washout and drain placement 12/15, c/b c/f uncontrolled perforation/leak, s/p open TAC/end ileostomy, SBR x 2, and UHR 12/24. Postop course c/b AF RVR leading to ICU re-admission 12/27. IR consulted for intraabdominal abscess aspiration and drain placement. Subjective: Patient resting in bed with Cpap on, denies pain at drain site. Output in drainage bag is serous colored. Educated that once output is less than 15 ml per day for a couple days it can be considered for removal. Past Medical History: Diagnosis Date Congestive heart failure COPD (chronic obstructive pulmonary disease) Essential hypertension, benign Longstanding persistent atrial fibrillation KIM (obstructive sleep apnea) Ulcerative colitis No Known Allergies ROS: General: Denies fevers or confusion Cardiac: Denies chest pain and heart palpitations Pulmonary: Denies SOB GI: Denies nausea, vomiting and abdominal pain : Denies flank pain, dysuria and hematuria MSK: Denies neuropathy Objective: Blood pressure 96/52, pulse 65, temperature 98.1 F (36.7 C), temperature source Oral, resp. rate 16, height 1.753 m (5' 9.02), weight 102.3 kg (225 lb 8 oz), SpO2 95%. Exam: General: no acute distress, alert and oriented Chest: Symmetric expansion, non-labored Abdomen: soft, mildly tender Drains: abdominal drain with dressing dry and intact, draining serous colored fluid into the collection bag Skin: intact, dry, normal color Intake/Output Summary (Last 24 hours) at 01/03/2025 1322 Last data filed at 01/03/2025 1216 Gross per 24 hour Intake 3626.93 ml Output 1695 ml Net 1931.93 ml Drain Output: 30 ml Laboratory: Lab Results Component Value Date/Time INR 1.2 (H) 01/03/2025 01:39 AM WBC 14.25 (H) 01/03/2025 01:39 AM PLATELET 397 (H) 01/03/2025 01:39 AM HGB 7.2 (L) 01/03/2025 01:39 AM CREATSERUM 0.66 (L) 01/03/2025 01:39 AM GFR >90 01/03/2025 01:39 AM Fluid Culture: pending, NGTD Impression and Plan: Day 4 post percutaneous drain placement for intra-abdominal fluid collection posterior to colostomy. We recommend continued routine drain care to include the following: Flush the drain with 10 cc of sterile saline q 8hrs. Change the dressing at least qod. Recommend repeat imaging when output is <15 ml a day for 48 hours to assure clearance of the collection and evaluate for removal. Recommend follow up for management/removal with primary surgical team, if not planning to follow recommend placing an AMB Referral for IR at discharge for drain management. Please send patient home with extra bags - these can be obtained from Distribution WD#[id number] Please send patient home with rx for all needed tube site care supplies. This includes split gauze 4x4 #30, Paper tape #3, Saline syringes #30, refills #3. We encourage primary team to notify IR should we be of further assistance in the care of this patient. DANIAL Dong 01/03/2025 1:22 PM Please contact VIR resident product consultant for questions * Alejandro Ventura RN - 01/03/2025 10:18 AM EDT Care Management Progress Note Initiated DME referral for ostomy supplies. Requested [facility] initiate HH referrals for wound vac dressing changes. * Daniela Alberts [facility] - 01/03/2025 9:27 AM EDT Department of Pharmacy TPN Consult Note Patient: Conrad Oconnell Room/Bed: [facility] Recommendation: Chemistries, intake/output, glycemic control, and medications reviewed. Electrolytes replacement outside TPN ordered: Magnesium 4 gm IVPB and sodium phosphate 15 mmol IVPBalready ordered by team Current maintenance IV fluids: None Patient is tolerating ~ 25% of his meals. Calorie counts and oral supplements will be added today. I will start weaning the TPN per surgery and RD recs (see note on 01/03). I will reduce the sodium tomaintain the same concentration and will remove 20 mEq of potassium chloride with the upward trend in potassium. Pharmacy will continue to follow. TPN Formula: Current Rate: continuous TPN at 95 mL/hr. (volume 2280 mL) Rate for new bag this evening at 2200: continuous TPN at 50 mL/hr. (volume 1200 mL) TPN Goal Volume: 1200 mL Lipid: SMOFlipid given daily See current IHIS order for electrolyte components and administration details. Please refer to most recent dietitian consult note for nutritional assessment and formula including macronutrient recommendations. . Assessment: Lab Values: Albumin Date Value Ref Range Status 12/24/2024 2.6 (L) 3.5 - 5.0 g/dL Final Prealbumin Date Value Ref Range Status 01/03/2025 18 17 - 34 mg/dL Final BUN Date Value Ref Range Status 01/03/2025 22 7 - 25 mg/dL Final Creatinine Date Value Ref Range Status 01/03/2025 0.66 (L) 0.70 - 1.30 mg/dL Final Glucose Date Value Ref Range Status 01/03/2025 114 Nonfastin-179 mg/dL; Fastin-99 mg/dL Final Glucose (POC Device) Date Value Ref Range Status 01/02/2025 148 Nonfasting Glucose: 70-179 mg/dL Final 01/02/2025 130 Nonfasting Glucose: 70-179 mg/dL Final Hemoglobin A1C HPLC Date Value Ref Range Status 12/07/2024 6.1 (H) 4.7 - 5.6 % Final Sodium Date Value Ref Range Status 01/03/2025 136 135 - 145 mmol/L Final 01/02/2025 137 135 - 145 mmol/L Final Chloride Date Value Ref Range Status 01/03/2025 109 (H) 98 - 108 mmol/L Final 01/02/2025 109 (H) 98 - 108 mmol/L Final Potassium Date Value Ref Range Status 01/03/2025 4.7 3.5 - 5.0 mmol/L Final 01/02/2025 4.4 3.5 - 5.0 mmol/L Final CO2 Date Value Ref Range Status 01/03/2025 21 21 - 31 mmol/L Final 01/02/2025 20 (L) 21 - 31 mmol/L Final Phosphorous Date Value Ref Range Status 01/03/2025 2.6 2.2 - 4.6 mg/dL Final 01/02/2025 2.5 2.2 - 4.6 mg/dL Final Calcium Date Value Ref Range Status 12/28/2024 8.0 (L) 8.6 - 10.5 mg/dL Final 12/26/2024 7.7 (L) 8.6 - 10.5 mg/dL Final ICA Date Value Ref Range Status 01/03/2025 4.61 4.60 - 5.30 mg/dL Final 01/02/2025 4.44 (L) 4.60 - 5.30 mg/dL Final Magnesium Date Value Ref Range Status 01/03/2025 2.2 1.6 - 2.6 mg/dL Final 01/02/2025 1.7 1.6 - 2.6 mg/dL Final Triglycerides Date Value Ref Range Status 01/03/2025 155 (H) <150 mg/dL Final Comment: [<150 mg/dL: Desirable] [150-199 mg/dL: Borderline] [200-499 mg/dL: High] [>500 mg/dL: Very High] 12/29/2024 145 <150 mg/dL Final Comment: [<150 mg/dL: Desirable] [150-199 mg/dL: Borderline] [200-499 mg/dL: High] [>500 mg/dL: Very High] Bilirubin Total Date Value Ref Range Status 12/24/2024 0.6 <1.5 mg/dL Final 12/07/2024 1.0 <1.5 mg/dL Final Fluid Management (24 hrs): I/O last 3 completed shifts: In: 3419.2 [P.O.:350; I.V.:342.7; TPN:2250.4; IV Piggyback:476.2] Out: 1765 [Urine:1175; Drains:25; Other:40] Pharmacy will continue to follow. Name: Daniela Alberts RPH Phone: [phone] Date/Time: 01/03/2025 9:54 AM * Lisbeth Aly MD - 01/02/2025 9:59 AM EDT Colorectal Surgery Daily Progress Note Attending: Barbara Call MD Length of Stay: 11 Surgery: s/p open total abdominal colectomy with EI, SBR x2, repair of serosal tear, umbilical hernia repair with AMY placement on 12/24 Subjective/Interval events: AFHDS, feeling well this morning overall. Reports having sharp R-sided abdominal pain that feels like muscle strain. Also notes having a dry cough, no chest pain or difficulty breathing. No nausea. Ileostomy functioning. WBC increased to 17.8 from 14.6 yesterday after narrowing abx to Ceftriaxone/Flagyl. O:BP 114/58 (BP Location: Right arm, BP Position: Lying) Pulse 78 Temp 99 F (37.2 C) (Oral) Resp 20 Ht 1.753 m (5' 9.02) Wt 102.3 kg (225 lb 8 oz) SpO2 97% BMI 33.29 kg/m Smoking Status Former 01/01 07 - 01/02 0659 In: 3791.4 [P.O.:530; I.V.:400.6] Out: 2209 [Urine:1625] PE: General: NAD, lying in bed Pulm: Respirations easy and non labored Abd: soft, appropriately tender, non distended. Stoma pink and protruding above skin level with stool in ostomy appliance, AMY with serosanguineous drainage, midline abdominal incision with wound vac with good seal and serous output Labs: WBC/Hgb/Hct/Plts: 17.83/8.2/27.4/462 (01/02 413) Bun/Creat/Cl/CO2/Glucose: 20/0.74/109/20/128 (01/02 413-01/02 509) Na/K+/Phos/Mg/Ca: 137/4.4/2.5/1.7/-- (01/02 413) A/P: Conrad Oconnell is a 69 y.o. male with a PMH of long-standing persistent Afib (on metop 50 BID), HFrEF 2/2 rate uncontrolled Afib (LVEF reportedly 40% at OSH echo), COPD, Ulcerative Colitis, HTN, and KIM. He was admitted to an OSH on 12/13/24 with perforated sigmoid diverticulitis s/p underwent exp lap with drainage of abscess, washout and drain placement on 12/15 c/b Afib with RVR requiring an ICU admission. On 12/17, he developed worsening abdominal pain with distention and CT showed a new hypodense rim enhancing collection c/f new abscess & feculent output from AMY drain. He was transferred to [facility] for further management in the setting of worsening intra-abdominal abscesses and is now s/p open total abdominal colectomy with EI, SBR x2, repair of serosal tear, unbilical hernia repair with AMY placement on 12/24. Today's Plan Continue regular diet, will wean TPN when PO intake adequate (anticipate tomorrow) CXR to evaluate cough/leukocytosis Broaden antibiotics back to Cefepime Lidocaine patch for R-sided abdominal pain Ulcerative colitis: not on biologics, stop home prednisone, no indication for home budesonide Colonic perforation: 2/2 sigmoid diverticulitis vs Ulcerative colitis Intra-abdominal abscess: likely 2/2 the above. S/p surgery (see above) Path pending +ROBF NG discontinued POD 7 Parenteral Nutrition Custom +/- Lipids (Central TPN) DIET REGULAR No Carbonated Beverages Parenteral Nutrition Custom +/- Lipids (Central TPN) CT A/P (12/30) abscesses with adjacent inflammation, surgical drain not in place to the collections,no c/f perforation, reactive small bowel inflammation and ileus IR consulted, appreciate assistance: s/p drain placement 12/30 Cultures: (IR aspirate 12/30): gram stain NGTD ATB: zosyn (12/23-12/28), cefepime (12/30-12/30) Ceftriaxone/flagyl (12/31-01/07 7d) Wound care: wound vac WOCN consult for new ostomy AMY drain to bulb suction Protein calorie malnutrition: Lining Layer consulted, appreciate recommendations Parenteral Nutrition Custom +/- Lipids (Central TPN) DIET REGULAR No Carbonated Beverages Parenteral Nutrition Custom +/- Lipids (Central TPN) Continue TPN until adequate PO Thiamine for risk of refeeding EoT 12/31 NICM (POA): per chart review possibly 2/2 afib tachycardia mediated Chronic systolic HFrEF (POA) HTN (POA) Non obstructive CAD (POA) Persistent A fib (POA) s/p DCCV 12/08 on eliquis, chadsvasc 3 Coagulopathy: on alf anticoagulation (POA) Long-standing persistent Atrial fibrillation (POA): s/p DCCV on 11/18, on eliquis and tikosyn at home, [id number] = 3. EP consulted, appreciate recommendations - signed off Back in RVR overnight 12/28, transferred back to ICU - received additional amio boluses and gtt increased to 1mg/min - continue infusion Troponin negative Echo: Normal left ventricular size. Global LV dysfunction. EF 35%. Normal right ventricular size and function. No significant valvular disease identified. Transitioned to PO amiodarone and metoprolol on 12/31 Home Tikosyn discontinued Holding home furosemide & Aldactone Resume home metoprolol at 25mg BID at discharge Continue heparin gtt for anticoagulation, will resume home Eliquis closer to discharge. Can undergo 14day MCT and EP follow up after discharge (orders placed) Acute pain: multimodal pain regimen: Prn Oxycodone, prn dilaudid for breakthrough (will dc once taking PO) Shock: possibly septic 2/2 intra-abdominal abscess r/t colonic perforation with diverticulitis vs cardiogenic given hx of heart failure - resolved Weaned off pressors, HDS, lactate normalized. TTE as discussed above Fluid resuscitation as needed. Acute respiratory failure - resolved. COPD: not on home oxygen. Continue home trelegy ellipta with prn albuterol KIM: nocturnal Cpap MJ: resolved, baseline sCr 0.9, peaked at 1.48, now trending down. Urine output adequate. Monitor. Diabetes, type 2: Hgb A1c 6.1 (12/07), holding Dapagliflozin (for cardiac GDMT), will resume closer to discharge. SSI as needed, accuchecks Q6h Acute Blood Loss Anemia vs Precipitous Drop in Hemoglobin Likely Secondary to Fluid Resuscitation: baseline hgb 12.4, minimal EBL, likely related to ongoing resuscitation and fluid shifting. Current hgb stable. Low concern for active bleeding. Daily CBC. Continue heparin gtt Last transfusion 12/31 Complexity. Hypocalcemia - Continue to monitor and replete. Obesity, class I Body mass index is 33.29 kg/m . - Follow with PCP for dietary and lifestyle modifications. Wound Documentation Wound Surgical 12/24/24 0113 Anterior;Midline Abdomen (Active) Date First Assessed/Time First Assessed: 12/24/24 011 Primary Wound Type: Surgical Incision Type: midline Incision Closure/Dressing: Gauze;ABD Wound Description: Fascia closed skin open and packed with 1 kerlex roll damp Wound Location Orientat... Any conditions listed below are present on admission unless otherwise specified. .None Routine Hospital Care Fall Risk: Assessed for patient fall risk and discussed safety measures during rounding. Diet: Parenteral Nutrition Custom +/- Lipids (Central TPN) DIET REGULAR No Carbonated Beverages Parenteral Nutrition Custom +/- Lipids (Central TPN) DVT prophylaxis: heparin gtt Abraham: None Code status: Full CENTRAL LINES: Central Line LDAs Active Central Line Access Devices Name Placement date Placement time Site Days PICC Line - Double Lumen 12/22/24520 basilic vein (medial side of arm), left 12/22/24520 -- 11 Central Line Indications: TPN If patient has multiple lines, please choose the answers of the next two questions to correlate with the lines listed above in descending order Can line/s be removed today? Select all that apply Line 1, no cannot be removed Dressing/s Clean/Dry/Intact?: Select all that apply Line 1, Dressing clean, dry, intact and No line currently in place Patient seen with colorectal team, plan of care discussed, and they are in agreement. Lisbeth Aly MD For patients located in or [facility] please page [phone] * Amanda Meza, [facility] - 01/02/2025 9:27 AM EDT Department of Pharmacy TPN Consult Note Patient: Conrad Oconnell Room/Bed: [facility]/ Recommendation: Chemistries, intake/output, glycemic control, and medications reviewed. Electrolytes replacement outside TPN ordered: Not applicable. Current maintenance IV fluids: None No changes made to next TPN bag starting tonight at 2200. Pharmacy will continue to follow. TPN Formula: Current Rate: continuous TPN at 95 mL/hr. (volume 2280 mL) Rate for new bag this evening at 2200: continuous TPN at 95 mL/hr. (volume 2280 mL) TPN Goal Volume: 2280 mL Lipid: SMOFlipid given daily See current IHIS order for electrolyte components and administration details. Please refer to most recent dietitian consult note for nutritional assessment and formula including macronutrient recommendations. . Assessment: Lab Values: Albumin Date Value Ref Range Status 12/24/2024 2.6 (L) 3.5 - 5.0 g/dL Final Prealbumin Date Value Ref Range Status 12/27/2024 8 (L) 17 - 34 mg/dL Final BUN Date Value Ref Range Status 01/02/2025 20 7 - 25 mg/dL Final Creatinine Date Value Ref Range Status 01/02/2025 0.74 0.70 - 1.30 mg/dL Final Glucose Date Value Ref Range Status 01/02/2025 120 Nonfastin-179 mg/dL; Fastin-99 mg/dL Final Glucose (POC Device) Date Value Ref Range Status 01/02/2025 128 Nonfasting Glucose: 70-179 mg/dL Final 01/02/2025 81 Nonfasting Glucose: 70-179 mg/dL Final Hemoglobin A1C HPLC Date Value Ref Range Status 12/07/2024 6.1 (H) 4.7 - 5.6 % Final Sodium Date Value Ref Range Status 01/02/2025 137 135 - 145 mmol/L Final 01/01/2025 137 135 - 145 mmol/L Final Chloride Date Value Ref Range Status 01/02/2025 109 (H) 98 - 108 mmol/L Final 01/01/2025 110 (H) 98 - 108 mmol/L Final Potassium Date Value Ref Range Status 01/02/2025 4.4 3.5 - 5.0 mmol/L Final 01/01/2025 4.3 3.5 - 5.0 mmol/L Final CO2 Date Value Ref Range Status 01/02/2025 20 (L) 21 - 31 mmol/L Final 01/01/2025 20 (L) 21 - 31 mmol/L Final Phosphorous Date Value Ref Range Status 01/02/2025 2.5 2.2 - 4.6 mg/dL Final 01/01/2025 3.1 2.2 - 4.6 mg/dL Final Calcium Date Value Ref Range Status 12/28/2024 8.0 (L) 8.6 - 10.5 mg/dL Final 12/26/2024 7.7 (L) 8.6 - 10.5 mg/dL Final ICA Date Value Ref Range Status 01/02/2025 4.44 (L) 4.60 - 5.30 mg/dL Final 01/01/2025 4.40 (L) 4.60 - 5.30 mg/dL Final Magnesium Date Value Ref Range Status 01/02/2025 1.7 1.6 - 2.6 mg/dL Final 01/01/2025 2.0 1.6 - 2.6 mg/dL Final Triglycerides Date Value Ref Range Status 12/29/2024 145 <150 mg/dL Final Comment: [<150 mg/dL: Desirable] [150-199 mg/dL: Borderline] [200-499 mg/dL: High] [>500 mg/dL: Very High] 12/27/2024 487 (H) <150 mg/dL Final Comment: [<150 mg/dL: Desirable] [150-199 mg/dL: Borderline] [200-499 mg/dL: High] [>500 mg/dL: Very High] Bilirubin Total Date Value Ref Range Status 12/24/2024 0.6 <1.5 mg/dL Final 12/07/2024 1.0 <1.5 mg/dL Final Fluid Management (24 hrs): I/O last 3 completed shifts: In: 3791.4 [P.O.:530; I.V.:400.6; TPN:2468; IV Piggyback:392.8] Out: 2208 [Urine:1625; Other:24] Pharmacy will continue to follow. Name: Amanda Meza RPH Date/Time: 01/02/2025 9:27 AM * Arturo Thao MD - 01/01/2025 7:36 PM EDT Colorectal Surgery Daily Progress Note Attending: Barbara Call MD Length of Stay: 10 Surgery: s/p open total abdominal colectomy with EI, SBR x2, repair of serosal tear, umbilical hernia repair with AMY placement on 12/24 Subjective/Interval events: NAEON O:BP 109/51 (BP Location: Right arm, BP Position: Lying) Pulse 75 Temp 97.5 F (36.4 C) (Axillary) Resp 20 Ht 1.753 m (5' 9.02) Wt 102.3 kg (225 lb 8 oz) SpO2 98% BMI 33.29 kg/m Smoking Status Former 12/31 07 - 01/01 0659 In: 3782.6 [P.O.:250; I.V.:495.8] Out: 2009 [Urine:1210; Drains:15] PE: General: NAD, lying in bed Pulm: Respirations easy and non labored Abd:soft, appropriately tender, non distended. Stoma pink and protruding above skin level with melenic stool in ostomy appliance, AMY with serosanguineous drainage, midline abdominal incision with wound vac with good seal, NG to LWS with rust/ thin bilious output Labs: WBC/Hgb/Hct/Plts: 14.58/7.5/25.7/408 (01/01 358) Bun/Creat/Cl/CO2/Glucose: 24/0.89/110/20/112 (01/01 358-01/02 1708) Na/K+/Phos/Mg/Ca: 137/4.3/3.1/2.0/-- (01/01 358) A/P: Conrad Oconnell is a 69 y.o. male with a PMH of long-standing persistent Afib (on metop 50 BID), HFrEF 2/2 rate uncontrolled Afib (LVEF reportedly 40% at OSH echo), COPD, Ulcerative Colitis, HTN, and KIM. He was admitted to an OSH on 12/13/24 with perforated sigmoid diverticulitis s/p underwent exp lap with drainage of abscess, washout and drain placement on 12/15 c/b Afib with RVR requiring an ICU admission. On 12/17, he developed worsening abdominal pain with distention and CT showed a new hypodense rim enhancing collection c/f new abscess & feculent output from AMY drain. He was transferred to [facility] for further management in the setting of worsening intra-abdominal abscesses and is now s/p open total abdominal colectomy with EI, SBR x2, repair of serosal tear, unbilical hernia repair with AMY placement on 12/24. Today's Plan REGULAR DIET HOLD ON TRANSITIONING TO ELIQUIS Ulcerative colitis: not on biologics, stop home prednisone, no indication for home budesonide Colonic perforation: 2/2 sigmoid diverticulitis vs Ulcerative colitis Intra-abdominal abscess: likely 2/2 the above. S/p surgery (see above) Path pending +ROBF NG discontinued POD 7 Parenteral Nutrition Custom +/- Lipids (Central TPN) Parenteral Nutrition Custom +/- Lipids (Central TPN) DIET REGULAR No Carbonated Beverages CT A/P (12/30) abscesses with adjacent inflammation, surgical drain not in place to the collections,no c/f perforation, reactive small bowel inflammation and ileus IR consulted, appreciate assistance: s/p drain placement 12/30 Cultures: (IR aspirate 12/30): gram stain NGTD ATB: zosyn (12/23-12/28), cefepime (12/30-12/30) Ceftriaxone/flagyl (12/31-01/07 7d) Wound care: wound vac WOCN consult for new ostomy AMY drain to bulb suction Protein calorie malnutrition: Lining Layer consulted, appreciate recommendations Parenteral Nutrition Custom +/- Lipids (Central TPN) Parenteral Nutrition Custom +/- Lipids (Central TPN) DIET REGULAR No Carbonated Beverages Continue TPN until ROBF Thiamine for risk of refeeding EoT 12/31 NICM (POA): per chart review possibly 2/2 afib tachycardia mediated Chronic systolic HFrEF (POA) HTN (POA) Non obstructive CAD (POA) Persistent A fib (POA) s/p DCCV 12/08 on eliquis, chadsvasc 3 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 EP consulted, appreciate recommendations - signed off Back in RVR overnight 12/28, transferred back to ICU - received additional amio boluses and gtt increased to 1mg/min - continue infusion Troponin negative Echo: Normal left ventricular size. Global LV dysfunction. EF 35%. Normal right ventricular size and function. No significant valvular disease identified. Transitioned to PO amiodarone and metoprolol on 12/31 Home Tikosyn discontinued Holding home furosemide & Aldactone Resume home metoprolol at 25mg BID at discharge Continue heparin gtt for anticoagulation, will resume home Eliquis closer to discharge. Can undergo 14day MCT and EP follow up after discharge (orders placed) Acute pain: multimodal pain regimen: Prn Oxycodone, prn dilaudid for breakthrough (will dc once taking PO) Shock: possibly septic 2/2 intra-abdominal abscess r/t colonic perforation with diverticulitis vs cardiogenic given hx of heart failure - resolved Weaned off pressors, HDS, lactate normalized. TTE as discussed above Fluid resuscitation as needed. Acute respiratory failure - resolved. COPD: not on home oxygen. Continue home trelegy ellipta with prn albuterol KIM: nocturnal Cpap MJ: resolved, baseline sCr 0.9, peaked at 1.48, now trending down. Urine output adequate. Monitor. Diabetes, type 2: Hgb A1c 6.1 (12/07), holding Dapagliflozin (for cardiac GDMT), will resume closer to discharge. SSI as needed, accuchecks Q6h Acute Blood Loss Anemia vs Precipitous Drop in Hemoglobin Likely Secondary to Fluid Resuscitation: baseline hgb 12.4, minimal EBL, likely related to ongoing resuscitation and fluid shifting. Current hgb stable. Low concern for active bleeding. Daily CBC. Continue heparin gtt Last transfusion 12/31 Complexity. Hypocalcemia - Continue to monitor and replete. Obesity, class I Body mass index is 33.29 kg/m . - Follow with PCP for dietary and lifestyle modifications. Wound Documentation Wound Surgical 12/24/24 011 Anterior;Midline Abdomen (Active) Date First Assessed/Time First Assessed: 12/24/24112 Primary Wound Type: Surgical Incision Type: midline Incision Closure/Dressing: Gauze;ABD Wound Description: Fascia closed skin open and packed with 1 kerlex roll damp Wound Location Orientat... Any conditions listed below are present on admission unless otherwise specified. .None Routine Hospital Care Fall Risk: Assessed for patient fall risk and discussed safety measures during rounding. Diet: Parenteral Nutrition Custom +/- Lipids (Central TPN) Parenteral Nutrition Custom +/- Lipids (Central TPN) DIET REGULAR No Carbonated Beverages DVT prophylaxis: heparin gtt Abraham: None Code status: Full CENTRAL LINES: Central Line LDAs Active Central Line Access Devices Name Placement date Placement time Site Days PICC Line - Double Lumen 12/22/24 05 basilic vein (medial side of arm), left 12/22/24 05 -- 10 Central Line Indications: TPN If patient has multiple lines, please choose the answers of the next two questions to correlate with the lines listed above in descending order Can line/s be removed today? Select all that apply Line 1, no cannot be removed Dressing/s Clean/Dry/Intact?: Select all that apply Line 1, Dressing clean, dry, intact and No line currently in place Patient seen with colorectal team, plan of care discussed, and they are in agreement. Arturo Thao MD For patients located in or [facility] please page [phone] * Alfie Carmona, PT - 01/01/2025 9:07 AM EDT Acute Physical Therapy Treatment Prior Gross Functional Mobility: independent Current AM-PAC score(s): CURRENT AM-PAC Mobility Raw Score: 17 Based on the above AM-PAC score(s) and PT clinical judgment, patient is a good candidate for discharge to Home with Home Health (initial 10/02 supervision/assist, pt stated works from home and available to help as needed and daughter an ICU nurse) Barriers to discharge home: Patient needs assistance with functional mobility Mobility equipment available at home: straight cane ADL equipment available at home: Equipment needed for discharge: 2 wheeled walker Current therapy frequency recommendation in acute: PT Therapy Frequency: 5 times a week Activity Recommendations for outside of rehab session: x1 with 2ww/gait belt to chair/toilet Precautions and Weightbearing Status: Existing Precautions/Restrictions: abdominal, fall Wound vac, AMY drain Patient Safety Communication Prior to Visit: Nursing Subjective: Pt supine in bed, stated hasn't been up, agreeable to PT Pain: General Pain Documentation (Adult, OB, Peds) Presence of Pain: reports pain/discomfort Pain Location: abdomen DVPRS (Defense and Veterans Pain Rating Scale) DVPRS: Rest: 5- moderate pain DVPRS: Activity: 5- moderate pain Objective/Observation: Vitals/Vitals Responses to Treatment: no adverse reaction to session Cognition Overall Cognitive Status: Within Functional Limits Arousal/Alertness: Appropriate responses to stimuli Orientation Level: Oriented X4 Following Commands: Follows multistep commands without difficulty Safety Judgment: Good awareness of safety precautions Awareness of Errors: Assistance required to correct errors made Deficits: Fully aware of deficits Cognition Comments: cues for pacing/safety, cooperative with tx Extremity Assessments: See PT Evaluation flowsheet for Extremity Measurement updates. Skin and Edema: Balance: Sitting Balance Static Sitting-Level of Assistance: Supervision Dynamic Sitting-Level of Assistance: Standby Skilled Rationale: Positioning, Hand placement, Full extension to upright positioning/posture Sitting Balance Skilled Intervention/Details: no lob EOB and armed chair Standing Balance Static Standing-Level of Assistance: Contact guard Dynamic Standing-Level of Assistance: Minimum assistance Standing-Balance Support: Gait belt, Front-wheeled walker Skilled Rationale: Positioning, Sequencing, Hand placement, Full extension to upright positioning/posture Standing Balance Skilled Intervention/Details: challenged standing balance with ue support, cues for posture, wt shifting and stepping strategies Mobility Assessment/Intervention: Rolling/Turning Mobility Treasure Level: Rolling/Turning: contact guard assist Bed Features/Set-up: Rolling/Turning: Head of bed elevated, Use of bed rail Skilled Rationale: Positioning, Sequencing, Hand placement Skilled Intervention/Details: Rolling/Turning: cues for log rolling Supine to Sit Mobility Treasure Level: Supine->Sit: contact guard assist Bed Features/Set-up: Supine->Sit: Head of bed elevated, Use of bed rail Skilled Rationale: Technique of activity, Hand placement, Sequencing, Positioning Skilled Intervention/Details: Supine->Sit: x1 L side cues for log roll Sit to Supine Mobility Skilled Intervention/Details: Sit->Supine: Pt sitting in armed chair at end of session Transfer Assessment/Intervention: Sit to Stand Transfer Treasure Level: Sit->Stand: minimum assist (75% patient effort) Assistive Device: Sit->Stand: gait belt, front-wheeled walker Skilled Rationale: Hand placement, Sequencing, Positioning Skilled Intervention/Details: Sit->Stand: x2 EOB cues for hand placement Stand to Sit Transfer Treasure Level: Stand->Sit: contact guard assist Assistive Device: Stand->Sit: gait belt, front-wheeled walker Skilled Rationale: Controlled descent for sitting, Hand placement Bed-Chair Transfer Treasure Level: Bed<->Chair: minimum assist (75% patient effort) Physical Assist: Bed<->Chair: 1 person + 1 person to manage equipment Assistive Device: Bed<->Chair: gait belt, front-wheeled walker Skilled Rationale: Sequencing, Positioning, Hand placement Gait/Functional Mobility Assessment/Intervention: Gait Assessment Treasure Level: Gait: minimum assist (75% patient effort) Physical Assist: Gait: 1 person + 1 person to manage equipment Assistive Device: Gait: gait belt, front-wheeled walker Ambulation Distance (Feet): 50 Gait Deviations Identified: decreased zachery, decreased gait speed, flexed posture, decreased weight shifting, decreased step length Gait Skilled Rationale: verbal, reduce lateral weight shift, upright posture, increase step length Skilled Intervention/Details - Gait: cues for posture, pacing, standing rest break and safety with turning with lines Stairs Assessment/Intervention: Outcome Score(s): CURRENT AM-PAC Basic Mobility Inpatient Short Form Turning over in bed: 3 - A Little Assistance Moving from lying on back to sittin - A Little Assistance Moving to and from bed to chair: 3 - A Little Assistance Sitting/standing from chair: 3 - A Little Assistance Walk in hospital room: 3 - A Little Assistance Climbing 3-5 steps with a railin - A Lot of Assistance [facility] Mobility Raw Score: 17 [facility] Mobility Functional Limitation: 50.57% Impaired in Basic Mobility Interventions: Assessment & Plan: Pt has been showing improvement with functional mobility/transfers this date and able to demonstrate improvement in sit to stand and progressed ambulation with wheeled walker up to 50 ft with gait belt and Min A with cues, no lob noted. Pt would benefit with cont skilled PT to continue to work on strengthening, balance/gait/steps training to maximize safety and return to PLOF and decrease risk offalling Patient Instruction/Education this session: Learners: Patient Education provided: Adaptive equipment use, Activity outside of therapy, Balance training, Bed mobility, Discharge recommendations, Energy conservation strategies, Fall precautions, Gait training safety, Home exercise program, Precautions/weight bearing status Teaching method: Verbal Education/Instruction, Demonstration Learner response: Applies knowledge Learning preferences: Auditory, Visual Learning considerations: Pain/discomfort Plan for next session: gait training, functional transfers, balance/stairs Acute PT Goals Plan of Care by Alfie Carmona PT at 01/01/2025 9:07 AM Version 1 of 1 Problem: PT - General Goals Goal: Supine <-> Sit Transfers - Patient will perform supine to/from sit transfers with modified independence and with use of hospital bed features in order to improve functional mobility and safety. Outcome: Progressing Goal: Sit <-> Stand Transfers - Patient will perform sit to/from stand transfers with modified independence and least restrictive device in order to improve functional mobility and safety. Outcome: Progressing Goal: Ambulation - Patient will ambulate 150 feet with modified independence and least restrictive device to improve ability to safely navigate home and community. Outcome: Progressing Problem: PT - General Goals Goal: Stairs - Patient will ascend/descend 3 stairs with modified independence, least restrictive device, and single railing(s) to improve ability to safely navigate home and community. Outcome: Ongoing PT treatment consisted of the following to progress towards the above goal(s): PT Evaluation and Treatment Time Therapeutic Activity Time Entry: 14 Gait Training Time Entry: 13 Treating Therapist: Alfie Carmona PT Additional Details: PT Co-Eval/Treatment Information Co-evaluation/co-treatment performed?: Yes, simultaneous billable skilled care was necessary due tomedical complexity and functional deficits Other discipline: OT Rationale for need to co-eval/treat: postural control (pain) Co-treatment goal focus: balance, mobility, transfer PPE used during patient interaction: gloves Patient location at end of session: chair Alarms on at end of session: none, RN aware Needs in reach. Time In: 899 Time Out: 926 Total Visit Time: 27 minutes Total Treatment Time (skilled, billable minutes): 27 minutes Upon discontinuation of Acute Care Physical Therapy Services or patient discharge from the hospitalthis note represents the current Physical Therapy Discharge Summary. * Vipin Nguyen OT - 01/01/2025 9:00 AM EDT Acute Occupational Therapy Treatment Prior Gross Functional Mobility: independent Current AM-PAC score(s): CURRENT AM-PAC Activity Raw Score: 16 Based on the above AM-PAC score(s), and OT clinical judgment, discharge destination recommendation is: Home with Home Health Barriers to discharge home: Patient needs assistance with functional mobility, Patient needs assistance with ADLs Mobility equipment available at home: straight cane ADL equipment available at home: Equipment recommendations for discharge: to be determined Equipment issued: Current therapy frequency recommendation(s) in acute: 5 times a week Precautions and Weightbearing Status: OT Existing Precautions/Restrictions: abdominal Wound vac, AMY drain Patient Safety Communication Prior to Visit: Nursing Subjective: Pt motivated to participate Pain: General Pain Documentation (Adult, OB, Peds) Presence of Pain: reports pain/discomfort Pain Location: abdomen DVPRS (Defense and Veterans Pain Rating Scale) DVPRS: Rest: 5- moderate pain DVPRS: Activity: 5- moderate pain Objective/Observation: Vitals/Vitals Responses to Treatment: WNL O2 Device: room air Cognition Overall Cognitive Status: Within Functional Limits Arousal/Alertness: Appropriate responses to stimuli Orientation Level: Oriented X4 Extremity Assessments: See OT Evaluation flowsheet for Extremity Measurement updates. Balance: Sitting Balance Static Sitting-Level of Assistance: Supervision Dynamic Sitting-Level of Assistance: Standby Standing Balance Static Standing-Level of Assistance: Contact guard Dynamic Standing-Level of Assistance: Minimum assistance Standing-Balance Support: Gait belt, Front-wheeled walker Skilled Rationale: Verbal cues, Hand placement, Sequencing Skin and Edema: Mobility Assessment/Intervention: Supine to Sit Mobility Treasure Level: Supine->Sit: stand-by assist Bed Features/Set-up: Supine->Sit: Head of bed elevated, Use of bed rail Skilled Rationale: Verbal cues, Hand placement Skilled Intervention/Details: Supine->Sit: cues for log roll Transfer Assessment/Intervention: Sit to Stand Transfer Treasure Level: Sit->Stand: minimum assist (75% patient effort) Assistive Device: Sit->Stand: gait belt, front-wheeled walker Skilled Rationale: Verbal cues, Hand placement, Sequencing Skilled Intervention/Details: Sit->Stand: x 2 from EOB Bed-Chair Transfer Treasure Level: Bed<->Chair: minimum assist (75% patient effort) Assistive Device: Bed<->Chair: gait belt, front-wheeled walker, armed chair Skilled Rationale: Sequencing, Verbal cues, Hand placement Skilled Intervention/Details: Bed<->Chair: cues for navigating environment with lines and walker Functional Mobility: Functional Mobility Treasure Level: Functional Mobility/Gait: contact guard assist Assistive Device: Functional Mobility/Gait: gait belt, front-wheeled walker Functional Mobility Distance: Distance needed for common household mobility Functional Mobility Deficits: Activity tolerance, Balance Functional Mobility Skilled Rationale: Cues for increased safety Skilled Intervention/Details - Functional Mobility/Gait: pt able to walk short distance but took 3 standing rest breaks during Outcome Score(s): [facility]RENT [facility] Daily Activity Inpatient Short Form Putting on/Taking Off Lower Body Clothin - A Lot of Assistance Bathin - A Lot of Assistance Toiletin - A Lot of Assistance Putting on/Taking Off Upper Body Clothin - A Little Assistance Groomin - A Little Assistance Eatin - No Assistance [facility] Activity Raw Score: 16 CURRENT [facility] Activity Functional Limitation/Modifier: 53.32% Currently Impaired in Daily Activity- CK Interventions: Assessment & Plan: Pt continues to present with deficits in self care, functional mobility, balance, endurance and requires continued skilled OT services to address functional deficits and maximize safety and independence in ADLs for optimal independence in self care and functional mobility. Patient Instruction/Education this session: Learners: Patient Education provided: Activity outside of therapy Plan for next session: functional transfers, standing tolerance Acute OT Goals Plan of Care by Vipin Nguyen OT at 01/01/2025 9:00 AM Version 1 of 1 Problem: OT - Transfers Goal: Transfers Supine -> Sit - Patient will perform supine to/from sit with flat bed & no rail and minimal assistance to improve participation in ADLs. Outcome: Progressing Goal: Transfers Toilet/ Bedside Commode - Patient will transfer to/from toilet/bedside commode withminimal assistance for improved ability to safely complete ADLs. Outcome: Progressing Problem: OT - Endurance Goal: Endurance Functional Task Standing - Patient will engage in standing functional task for 6-8 minutes with contact guard assistance to improve activity tolerance necessary for safe ADL completion at recommended discharge destination. Outcome: Progressing OT treatment consisted of the following to work and progress towards the above goal(s): OT Evaluation and Treatment Time Therapeutic Activity Time Entry: 27 Treating Therapist: Vipin Nguyen OT Additional Details: OT Co-Eval/Treatment Information Co-evaluation/co-treatment performed?: Yes, simultaneous billable skilled care was necessary due tomedical complexity and functional deficits Other discipline: PT Rationale for need to co-eval/treat: coordination Co-treatment goal focus: endurance PPE used during patient interaction: gloves Patient location at end of session: chair, RN aware Alarms on at end of session: none Needs in reach. Time In: 0900 Time Out: 926 Total Visit Time: 27 minutes Total Treatment Time (skilled, billable minutes): 27 minutes Upon discontinuation of Acute Care Occupational Therapy Services or patient discharge from the hospital this note represents the current Occupational Therapy Discharge Summary. * Amanda Meza [facility] - 01/01/2025 8:21 AM EDT Department of Pharmacy TPN Consult Note Patient: Conrad Oconnell Room/Bed: [facility]/A Recommendation: Chemistries, intake/output, glycemic control, and medications reviewed. Electrolytes replacement outside TPN ordered: Not applicable. Current maintenance IV fluids: None Chloride up to 110 today. Will decrease sodium chloride 120>100 and increase sodium acetate 25>45. Pharmacy will continue to follow. TPN Formula: Current Rate: continuous TPN at 95 mL/hr. (volume 2280 mL) Rate for new bag this evening at 2200: continuous TPN at 95 mL/hr. (volume 2280 mL) TPN Goal Volume: 2280 mL Lipid: SMOFlipid given daily See current IHIS order for electrolyte components and administration details. Please refer to most recent dietitian consult note for nutritional assessment and formula including macronutrient recommendations. . Assessment: Lab Values: Albumin Date Value Ref Range Status 12/24/2024 2.6 (L) 3.5 - 5.0 g/dL Final Prealbumin Date Value Ref Range Status 12/27/2024 8 (L) 17 - 34 mg/dL Final BUN Date Value Ref Range Status 01/01/2025 24 7 - 25 mg/dL Final Creatinine Date Value Ref Range Status 01/01/2025 0.89 0.70 - 1.30 mg/dL Final Glucose Date Value Ref Range Status 01/01/2025 97 Nonfastin-179 mg/dL; Fastin-99 mg/dL Final Glucose (POC Device) Date Value Ref Range Status 01/01/2025 104 Nonfasting Glucose: 70-179 mg/dL Final 12/31/2024 103 Nonfasting Glucose: 70-179 mg/dL Final Hemoglobin A1C HPLC Date Value Ref Range Status 12/07/2024 6.1 (H) 4.7 - 5.6 % Final Sodium Date Value Ref Range Status 01/01/2025 137 135 - 145 mmol/L Final 12/31/2024 139 135 - 145 mmol/L Final Chloride Date Value Ref Range Status 01/01/2025 110 (H) 98 - 108 mmol/L Final 12/31/2024 106 98 - 108 mmol/L Final Potassium Date Value Ref Range Status 01/01/2025 4.3 3.5 - 5.0 mmol/L Final 12/31/2024 3.9 3.5 - 5.0 mmol/L Final CO2 Date Value Ref Range Status 01/01/2025 20 (L) 21 - 31 mmol/L Final 12/31/2024 24 21 - 31 mmol/L Final Phosphorous Date Value Ref Range Status 01/01/2025 3.1 2.2 - 4.6 mg/dL Final 12/31/2024 3.5 2.2 - 4.6 mg/dL Final Calcium Date Value Ref Range Status 12/28/2024 8.0 (L) 8.6 - 10.5 mg/dL Final 12/26/2024 7.7 (L) 8.6 - 10.5 mg/dL Final ICA Date Value Ref Range Status 01/01/2025 4.40 (L) 4.60 - 5.30 mg/dL Final 12/31/2024 4.57 (L) 4.60 - 5.30 mg/dL Final Magnesium Date Value Ref Range Status 01/01/2025 2.0 1.6 - 2.6 mg/dL Final 12/31/2024 2.0 1.6 - 2.6 mg/dL Final Triglycerides Date Value Ref Range Status 12/29/2024 145 <150 mg/dL Final Comment: [<150 mg/dL: Desirable] [150-199 mg/dL: Borderline] [200-499 mg/dL: High] [>500 mg/dL: Very High] 12/27/2024 487 (H) <150 mg/dL Final Comment: [<150 mg/dL: Desirable] [150-199 mg/dL: Borderline] [200-499 mg/dL: High] [>500 mg/dL: Very High] Bilirubin Total Date Value Ref Range Status 12/24/2024 0.6 <1.5 mg/dL Final 12/07/2024 1.0 <1.5 mg/dL Final Fluid Management (24 hrs): I/O last 3 completed shifts: In: 3782.6 [P.O.:250; I.V.:495.8; Blood:1387.5; TPN:1391.1; IV Piggyback:258.3] Out: 2009 [Urine:1210; Emesis:300; Drains:15; Other:260] Pharmacy will continue to follow. Name: Amanda Meza [facility] Date/Time: 01/01/2025 8:21 AM * Mahnaz Valadez, ANTHROPOLOGY AND ARCHEOLOGY INSTRUCTOR-OFFSET LABEL REWINDER - 12/31/2024 1:03 PM EDT Colorectal Surgery Daily Progress Note Attending: Barbara Call MD Length of Stay: 9 Surgery: s/p open total abdominal colectomy with EI, SBR x2, repair of serosal tear, umbilical hernia repair with AMY placement on 12/24 Subjective/Interval events: HDS, AF. Pain controlled. NPO with TPN and NG, output 700 ml. No N/V orprn antiemetics. Ostomy output 600 ml. Drain placed in IR yesterday, cultures sent. Hgb slow downward trend 6.6 from 7.5 O:BP 116/58 Pulse 70 Temp 98.3 F (36.8 C) (Oral) Resp 23 Ht 1.753 m (5' 9.02) Wt 102.3 kg (225 lb 8 oz) SpO2 96% BMI 33.29 kg/m Smoking Status Former 12/30 0700 - 12/31 0559 In: 3782.3 [I.V.:1007.1] Out: 2850 [Urine:1450; Drains:50] PE: General: NAD, lying in bed Pulm: Respirations easy and non labored Abd:soft, appropriately tender, non distended. Stoma pink and protruding above skin level with melenic stool in ostomy appliance, AMY with serosanguineous drainage, midline abdominal incision with wound vac with good seal, NG to LWS with rust/ thin bilious output Labs: WBC/Hgb/Hct/Plts: 12.72/6.6/22.5/475 (12/31 526) Bun/Creat/Cl/CO2/Glucose: 26/0.88/106/24/108 (12/31 526-12/31 1236) Na/K+/Phos/Mg/Ca: 139/3.9/3.5/2.0/-- (12/31 526) A/P: Conrad Oconnell is a 69 y.o. male with a PMH of long-standing persistent Afib (on metop 50 BID), HFrEF 2/2 rate uncontrolled Afib (LVEF reportedly 40% at OSH echo), COPD, Ulcerative Colitis, HTN, and KIM. He was admitted to an OSH on 12/13/24 with perforated sigmoid diverticulitis s/p underwent exp lap with drainage of abscess, washout and drain placement on 12/15 c/b Afib with RVR requiring an ICU admission. On 12/17, he developed worsening abdominal pain with distention and CT showed a new hypodense rim enhancing collection c/f new abscess & feculent output from AMY drain. He was transferred to [facility] for further management in the setting of worsening intra-abdominal abscesses and is now s/p open total abdominal colectomy with EI, SBR x2, repair of serosal tear, unbilical hernia repair with AMY placement on 12/24. Today's Plan Remove NG Clear liquid diet Convert IV medications to PO where able: converted amiodarone and metoprolol to PO Follow up cultures PTOT Transfuse 1 prbc Antibiotic stop date placed Ulcerative colitis: not on biologics, stop home prednisone, no indication for home budesonide Colonic perforation: 2/2 sigmoid diverticulitis vs Ulcerative colitis Intra-abdominal abscess: likely 2/2 the above. S/p surgery (see above) Path pending +ROBF NG discontinued POD 7 Parenteral Nutrition Custom +/- Lipids (Central TPN) DIET CLEAR LIQUID No Carbonated Beverages; Oral Supplement Parenteral Nutrition Custom +/- Lipids (Central TPN) CT A/P (12/30) abscesses with adjacent inflammation, surgical drain not in place to the collections,no c/f perforation, reactive small bowel inflammation and ileus IR consulted, appreciate assistance: s/p drain placement 12/30 Cultures: (IR aspirate 12/30): gram stain NGTD ATB: zosyn (12/23-12/28), cefepime (12/30-12/30) Ceftriaxone/flagyl (12/31-01/07 7d) Wound care: wound vac WOCN consult for new ostomy AMY drain to bulb suction Protein calorie malnutrition: Lining Layer consulted, appreciate recommendations Parenteral Nutrition Custom +/- Lipids (Central TPN) DIET CLEAR LIQUID No Carbonated Beverages; Oral Supplement Continue TPN until ROBF Thiamine for risk of refeeding EoT 12/31 NICM (POA): per chart review possibly 2/2 afib tachycardia mediated Chronic systolic HFrEF (POA) HTN (POA) Non obstructive CAD (POA) Persistent A fib (POA) s/p DCCV 12/08 on eliquis, chadsvasc 3 Coagulopathy: on alf anticoagulation (POA) Long-standing persistent Atrial fibrillation (POA): s/p DCCV on 11/18, on eliquis and tikosyn at home, [id number] = 3. EP consulted, appreciate recommendations - signed off Back in RVR overnight 12/28, transferred back to ICU - received additional amio boluses and gtt increased to 1mg/min - continue infusion Troponin negative Echo: Normal left ventricular size. Global LV dysfunction. EF 35%. Normal right ventricular size and function. No significant valvular disease identified. Transitioned to PO amiodarone and metoprolol on 12/31 Home Tikosyn discontinued Holding home furosemide & Aldactone Resume home metoprolol at 25mg BID at discharge Continue heparin gtt for anticoagulation, will resume home Eliquis closer to discharge. Can undergo 14day MCT and EP follow up after discharge (orders placed) Acute pain: multimodal pain regimen: Prn Oxycodone, prn dilaudid for breakthrough (will dc once taking PO) Shock: possibly septic 2/2 intra-abdominal abscess r/t colonic perforation with diverticulitis vs cardiogenic given hx of heart failure - resolved Weaned off pressors, HDS, lactate normalized. TTE as discussed above Fluid resuscitation as needed. Acute respiratory failure - resolved. COPD: not on home oxygen. Continue home trelegy ellipta with prn albuterol KIM: nocturnal Cpap MJ: resolved, baseline sCr 0.9, peaked at 1.48, now trending down. Urine output adequate. Monitor. Diabetes, type 2: Hgb A1c 6.1 (12/07), holding Dapagliflozin (for cardiac GDMT), will resume closer to discharge. SSI as needed, accuchecks Q6h Acute Blood Loss Anemia vs Precipitous Drop in Hemoglobin Likely Secondary to Fluid Resuscitation: baseline hgb 12.4, minimal EBL, likely related to ongoing resuscitation and fluid shifting. Current hgb stable. Low concern for active bleeding. Daily CBC. Continue heparin gtt Last transfusion 12/31 Complexity. Hypocalcemia - Continue to monitor and replete. Obesity, class I Body mass index is 33.29 kg/m . - Follow with PCP for dietary and lifestyle modifications. Wound Documentation Wound Surgical 12/24/24 011 Anterior;Midline Abdomen (Active) Date First Assessed/Time First Assessed: 12/24/24112 Primary Wound Type: Surgical Incision Type: midline Incision Closure/Dressing: Gauze;ABD Wound Description: Fascia closed skin open and packed with 1 kerlex roll damp Wound Location Orientat... Any conditions listed below are present on admission unless otherwise specified. .None Routine Hospital Care Fall Risk: Assessed for patient fall risk and discussed safety measures during rounding. Diet: Parenteral Nutrition Custom +/- Lipids (Central TPN) DIET CLEAR LIQUID No Carbonated Beverages; Oral Supplement DVT prophylaxis: heparin gtt Abraham: None Code status: Full CENTRAL LINES: Central Line LDAs Active Central Line Access Devices Name Placement date Placement time Site Days PICC Line - Double Lumen 12/22/24520 basilic vein (medial side of arm), left 12/22/24 05 -- 9 Central Line Indications: TPN If patient has multiple lines, please choose the answers of the next two questions to correlate with the lines listed above in descending order Can line/s be removed today? Select all that apply Line 1, no cannot be removed Dressing/s Clean/Dry/Intact?: Select all that apply Line 1, Dressing clean, dry, intact and No line currently in place Patient seen with colorectal team, plan of care discussed, and they are in agreement. DANIAL Farah For patients located in or [facility] please page [phone] * Darius Acosta - 12/31/2024 9:51 AM EDT Progression of Care Note Expected Discharge Date: Medical Milestones Remaining: Patient underwent open total abdominal colectomy with end ileostomy 12/24/24. Protein calorie malnutrition-Patient remains on TPN Assessment and Discharge Plan as of 12/31/2024 9:51 AM CM will continue to follow the medical team in planning discharge. Patient's discharge disposition pending PT/OT evaluation. Anticipated Services at Discharge: DME, Outpatient infusion/line care Barriers to Discharge: Other Explanation of Barriers: Medical Stability. Patient is currently on IV antibiotics. Darius KEVIN (Ed.) RN Clinical Imaging Science Professor * Chano Santiago OT - 12/31/2024 8:13 AM EDT Occupational Therapy Attempt Note 12/31/2024 OT Therapy Completed: Attempted Attempted Reason: Patient is not medically optimized to tolerate therapy program (low Hgb) Chano Santiago OT Time In: 0812 Time Out: 08 Total Visit Time: 0 minutes Total Treatment Time (skilled, billable minutes): 0 minutes * Zina Diaen PT - 12/31/2024 7:55 AM EDT Physical Therapy Attempt Note 12/31/2024 PT Therapy Completed: Attempted Attempted Reason: Patient is not medically optimized to tolerate therapy program (hgb 6.6) Zina Diane PT Time In: 0755 Time Out: 0755 Total Visit Time: 0 minutes Total Treatment Time (skilled, billable minutes): 0 minutes * Virginia White RD - 12/30/2024 6:13 PM EDT Nutrition Support F/U Recommendation and POC Recommend to continue with current TPN regimen. Tolerating well. Continue with current additives Discussed with iCU team and discontinued accu checks and SSI Will cont to monitor return of GI function. Recommend to transition to EN when appropriate along with p.o diet since pt may not be able to meet nutritional needs just with p.o diet. Recommend to start @ 20 mL/h and advance as tolerated to goal regimen of : EN formula: Vital AF 1.2 @ 80 mL/h to provide 2304 kcal/d ~ 30 kcal/kg and 144 G/d protein ~ 1.9 G/kg - 77 kg. Recommend adding MVI with minerals, 2000 units vitamin D when off PN Add Calcium citrate ~ 1200 mg ( in divided doses) prior to discharge Ileostomy diet education prior to discharge Monitor Vitamin B 12 status and treat as needed 69 y.o. with a history of HTN/HLD, CAD c/b HFrEF (EF 35%), persistent afib/aflutter s/p DCCV (12/08/24) on tikosyn and eliquis, KIM, COPD, UC (on budesonide and pred 10mg daily) who presents with perforated diverticulitis s/p ex lap, washout, AMY drain placement on 12/15, briefly admitted to SICU for a few days afterwards for close hemodynamic monitoring. Repeat CTAP 12/21 demonstrated decreased 3.1 from 4cm abscess but a new 8.2cm abscess adjacent to AMY tract. In afib w/ RVR, normotensive earlier today. Now s/p exploratory laparotomy, TAC/EI, SBR x2, serosal injury repair, AMY placement 12/24 Current TPN order: 275 g/d dextrose /130 g/d AA /65 g/d IVFE SMOF @ 95 mL/h to provide 2105 kcal/d ~ 27 Kcal/kg and 130 G/d protein 1.7 G/kg 77 kg Additives: MVI 10 mL, TE 1 mL, Zn 10 mg and Se 80 mcg Diet : NPO, plan for IR for abscess drainage today GI: Last Bowel Movement: 12/30/24 Ileostomy output for past three 24 hours: 0/0/275 mL NG output for past three 24 hour periods: 3800/2250/2500 mL I/O: UOP for past three 24 hour periods: 2850/2600/2285 mL Skin: Luis Score: 16 Labs: Na/K+/Phos/Mg/Ca: 140/3.7/3.3/2.5/-- (12/30 2355) Bun/Creat/Cl/CO2/Glucose: 25/0.92/104/27/126 (12/30 2355-12/30 1153) WBC/Hgb/Hct/Plts: 13.36/7.5/24.8/544 (12/30 2355) Lab Results Component Value Date GLUCOSE 126 12/30/2024 GLUCOSE 102 12/29/2024 GLUCOSE 137 12/29/2024 GLUCOSE 126 12/29/2024 GLUCOSE 128 12/29/2024 GLUCOSE 135 12/29/2024 Lab Results Component Value Date PREALBUMIN 8 (L) 12/27/2024 PREALBUMIN 8 (L) 12/25/2024 Lab Results Component Value Date CRP 299.70 (H) 12/26/2024 CRP 168.42 (H) 12/25/2024 CRP 160.67 (H) 12/23/2024 Lab Results Component Value Date TRIG 145 12/29/2024 TRIG 487 (H) 12/27/2024 Lab Results Component Value Date ALT 15 12/24/2024 AST 25 12/24/2024 ALKPHOS 49 12/24/2024 BILITOTAL 0.6 12/24/2024 BILIDIRECT 0.3 (H) 12/24/2024 Lab Results Component Value Date ZNCSERUM 52 (L) 12/25/2024 Scheduled Meds: Acetaminophen 650 mg Oral Q8H cefTRIAXone 2 g Intravenous Q24H Gabapentin 200 mg Oral TID Insulin regular Subcutaneous Q6H Iohexol 50 mL Intravenous Once Ipratropium 2 spray Nasal BID metoprolol 5 mg Intravenous Q6H metroNIDAZOLE 500 mg Intravenous Q8H Naloxone 0.1 mg Intravenous See admin instructions Or Naloxone 0.4 mg Intravenous See admin instructions Pantoprazole 40 mg Intravenous Daily thiamine 100 mg Intravenous Daily Continuous Infusions: amiodarone 1 mg/min (12/30/24 1751) heparin Stopped (12/30/24 1057) Parenteral Nutrition Custom +/- Lipids (Central TPN) 95 mL/hr at 12/30/24 1751 Parenteral Nutrition Custom +/- Lipids (Central TPN) Nutrition Focused Physical Exam: Nutrition Focused Physical Exam Completed?: deferred Reason For Deferral: Pt just came back from procedure and is asleep Malnutrition Statement: Does the patient meet criteria for malnutrition: Unable to assess *Based on [employer] and [employer] Indicators to Diagnose Malnutrition (AAIM) criteria (2012) RD to follow Virginia White MS, RD [facility] [phone] * Cristina Mendoza V, [facility] - 12/30/2024 11:36 AM EDT Department of Pharmacy TPN Consult Note Patient: Conrad Oconnell Room/Bed: [facility] Recommendation: Chemistries, intake/output, glycemic control, and medications reviewed. Electrolytes replacement outside TPN ordered: Potassium chloride IV 40 meq given Current maintenance IV fluids: None Increased potassium in TPn with addition of KCl 20 meq. Pharmacy will continue to follow. TPN Formula: Current Rate: continuous TPN at 95 mL/hr. (volume 2280 mL) Rate for new bag this evening at 2200: continuous TPN at 95 mL/hr. (volume 2280 mL) TPN Goal Volume: 2280 mL Lipid: SMOFlipid given daily See current IHIS order for electrolyte components and administration details. Please refer to most recent dietitian consult note for nutritional assessment and formula including macronutrient recommendations. . Assessment: Lab Values: Albumin Date Value Ref Range Status 12/24/2024 2.6 (L) 3.5 - 5.0 g/dL Final Prealbumin Date Value Ref Range Status 12/27/2024 8 (L) 17 - 34 mg/dL Final BUN Date Value Ref Range Status 12/29/2024 25 7 - 25 mg/dL Final Creatinine Date Value Ref Range Status 12/29/2024 0.92 0.70 - 1.30 mg/dL Final Glucose Date Value Ref Range Status 12/29/2024 102 Nonfastin-179 mg/dL; Fastin-99 mg/dL Final Glucose (POC Device) Date Value Ref Range Status 12/29/2024 137 Nonfasting Glucose: 70-179 mg/dL Final 12/29/2024 126 Nonfasting Glucose: 70-179 mg/dL Final Hemoglobin A1C HPLC Date Value Ref Range Status 12/07/2024 6.1 (H) 4.7 - 5.6 % Final Sodium Date Value Ref Range Status 12/29/2024 140 135 - 145 mmol/L Final 12/29/2024 139 135 - 145 mmol/L Final Chloride Date Value Ref Range Status 12/29/2024 104 98 - 108 mmol/L Final 12/29/2024 105 98 - 108 mmol/L Final Potassium Date Value Ref Range Status 12/29/2024 3.7 3.5 - 5.0 mmol/L Final 12/29/2024 3.8 3.5 - 5.0 mmol/L Final CO2 Date Value Ref Range Status 12/29/2024 27 21 - 31 mmol/L Final 12/29/2024 25 21 - 31 mmol/L Final Phosphorous Date Value Ref Range Status 12/29/2024 3.3 2.2 - 4.6 mg/dL Final 12/29/2024 2.8 2.2 - 4.6 mg/dL Final Calcium Date Value Ref Range Status 12/28/2024 8.0 (L) 8.6 - 10.5 mg/dL Final 12/26/2024 7.7 (L) 8.6 - 10.5 mg/dL Final ICA Date Value Ref Range Status 12/29/2024 4.53 (L) 4.60 - 5.30 mg/dL Final 12/29/2024 4.67 4.60 - 5.30 mg/dL Final Magnesium Date Value Ref Range Status 12/29/2024 2.5 1.6 - 2.6 mg/dL Final 12/29/2024 2.9 (H) 1.6 - 2.6 mg/dL Final Triglycerides Date Value Ref Range Status 12/29/2024 145 <150 mg/dL Final Comment: [<150 mg/dL: Desirable] [150-199 mg/dL: Borderline] [200-499 mg/dL: High] [>500 mg/dL: Very High] 12/27/2024 487 (H) <150 mg/dL Final Comment: [<150 mg/dL: Desirable] [150-199 mg/dL: Borderline] [200-499 mg/dL: High] [>500 mg/dL: Very High] Bilirubin Total Date Value Ref Range Status 12/24/2024 0.6 <1.5 mg/dL Final 12/07/2024 1.0 <1.5 mg/dL Final Fluid Management (24 hrs): I/O last 3 completed shifts: In: 3738.5 [I.V.:1153.4; NG/GT:80; TPN:2278.3; IV Piggyback:226.8] Out: 5115 [Urine:2285; Drains:25; Other:2530] Pharmacy will continue to follow. Name: Cristina Mendoza RPH Phone: [phone] Date/Time: 12/30/2024 11:37 AM * Mahnaz Valadez, ANTHROPOLOGY AND ARCHEOLOGY INSTRUCTOR-OFFSET LABEL REWINDER - 12/30/2024 8:07 AM EDT Colorectal Surgery Daily Progress Note Attending: Barbara Call MD Length of Stay: 8 Surgery: s/p open total abdominal colectomy with EI, SBR x2, repair of serosal tear, umbilical hernia repair with AMY placement on 12/24 Subjective/Interval events: HDS, AF. HR 120's yesterday, was given additional dose of IV metoprololovernight now with HR 70's NSR. Pain controlled. Remains NPO with NG in place: 2.5L output. On TPN.No N/V or prn antiemetics. AROBF: ostomy output: [address] completed yesterday noting abscesses with adjacent inflammation, surgical drain not in place to the collections, no c/f perforation, reactive small bowel inflammation and ileus O:BP 126/57 Pulse 79 Temp 97.7 F (36.5 C) (Oral) Resp 17 Ht 1.753 m (5' 9.02) Wt 103.4 kg (227 lb 15.3 oz) SpO2 100% BMI 33.65 kg/m Smoking Status Former 12/29 0700 - 12/30 0659 In: 3738.5 [I.V.:1153.4] Out: 5115 [Urine:2285; Drains:25] PE: General: NAD, lying in bed Pulm: Respirations easy and non labored Abd:soft, appropriately tender, mildly distended. Stoma pink and protruding above skin level with melenic stool in ostomy appliance, AMY with serosanguineous drainage, midline abdominal incision with wound vac with good seal, NG to LWS with rust/bilious output Labs: WBC/Hgb/Hct/Plts: 13.36/7.5/24.8/544 (12/30 2355) Bun/Creat/Cl/CO2/Glucose: 25/0.92/104/27/102 (12/30 2355) Na/K+/Phos/Mg/Ca: 140/3.7/3.3/2.5/-- (12/30 2355) A/P: Cnorad Oconnell is a 69 y.o. male with a PMH of long-standing persistent Afib (on metop 50 BID), HFrEF 2/2 rate uncontrolled Afib (LVEF reportedly 40% at OSH echo), COPD, Ulcerative Colitis, HTN, and KIM. He was admitted to an OSH on 12/13/24 with perforated sigmoid diverticulitis s/p underwent exp lap with drainage of abscess, washout and drain placement on 12/15 c/b Afib with RVR requiring an ICU admission. On 12/17, he developed worsening abdominal pain with distention and CT showed a new hypodense rim enhancing collection c/f new abscess & feculent output from AMY drain. He was transferred to [facility] for further management in the setting of worsening intra-abdominal abscesses and is now s/p open total abdominal colectomy with EI, SBR x2, repair of serosal tear, unbilical hernia repair with AMY placement on 12/24. Today's Plan AROBF IR c/s eval for drain vs aspiration of abscess Continue antibiotics- could de escalate to ceftriaxone/flagyl, stop date TBD PPI for GI ppx and melena Discontinue prednisone OK to downgrade to PCU Ulcerative colitis: not on biologics, stop home prednisone, no indication for home budesonide Colonic perforation: 2/2 sigmoid diverticulitis vs Ulcerative colitis Intra-abdominal abscess: likely 2/2 the above. S/p surgery (see above) Path pending +ROBF NG for decompression: continue given high output and until more consistent ROBF. Confirmed gastric position on KUB 12/28 CT A/P (12/30) abscesses with adjacent inflammation, surgical drain not in place to the collections,no c/f perforation, reactive small bowel inflammation and ileus DIET NPO with meds Parenteral Nutrition Custom +/- Lipids (Central TPN) ATB: zosyn (12/23-12/28), cefepime (12/30-current)- de escalate where able Wound care: wound vac WOCN consult for new ostomy AMY drain to bulb suction IR consulted, appreciate assistance Protein calorie malnutrition: Lining Layer consulted, appreciate recommendations DIET NPO with meds Parenteral Nutrition Custom +/- Lipids (Central TPN) Continue TPN until ROBF Thiamine for risk of refeeding EoT 12/31 NICM (POA): per chart review possibly 2/2 afib tachycardia mediated Chronic systolic HFrEF (POA) HTN (POA) Non obstructive CAD (POA) Persistent A fib (POA) s/p DCCV 12/08 on eliquis, chadsvasc 3 Coagulopathy: on alf anticoagulation (POA) Long-standing persistent Atrial fibrillation (POA): s/p DCCV on 11/18, on eliquis and tikosyn at home, [id number] = 3. EP consulted, appreciate recommendations - signed off Back in RVR overnight 12/28, transferred back to ICU - received additional amio boluses and gtt increased to 1mg/min - continue infusion Continue scheduled IV metoprolol Troponin negative Echo: Normal left ventricular size. Global LV dysfunction. EF 35%. Normal right ventricular size and function. No significant valvular disease identified. Will transition to oral amio when feasible Home Tikosyn discontinued Resume home metoprolol at 25mg BID at discharge Continue heparin gtt for anticoagulation, will resume home Eliquis closer to discharge. Can undergo 14day MCT and EP follow up after discharge (orders placed) Holding home furosemide & Aldactone Acute pain: multimodal pain regimen: Prn Oxycodone, prn dilaudid for breakthrough Shock: possibly septic 2/2 intra-abdominal abscess r/t colonic perforation with diverticulitis vs cardiogenic given hx of heart failure - resolved Weaned off pressors, HDS, lactate normalized. TTE as discussed above Fluid resuscitation as needed. Acute respiratory failure - resolved. COPD: not on home oxygen. Continue home trelegy ellipta with prn albuterol KIM: nocturnal Cpap MJ: resolved, baseline sCr 0.9, peaked at 1.48, now trending down. Urine output adequate. Monitor. Diabetes, type 2: Hgb A1c 6.1 (12/07), holding Dapagliflozin (for cardiac GDMT), will resume closer to discharge. SSI as needed, accuchecks Q6h Acute Blood Loss Anemia vs Precipitous Drop in Hemoglobin Likely Secondary to Fluid Resuscitation: baseline hgb 12.4, minimal EBL, likely related to ongoing resuscitation and fluid shifting. Current hgb stable. Low concern for active bleeding. Daily CBC. Complexity. Hypocalcemia - Continue to monitor and replete. Obesity, class I Body mass index is 33.65 kg/m . - Follow with PCP for dietary and lifestyle modifications. Wound Documentation Wound Surgical 12/24/24 0113 Anterior;Midline Abdomen (Active) Date First Assessed/Time First Assessed: 12/24/24 0113 Primary Wound Type: Surgical Incision Type: midline Incision Closure/Dressing: Gauze;ABD Wound Description: Fascia closed skin open and packed with 1 kerlex roll damp Wound Location Orientat... Any conditions listed below are present on admission unless otherwise specified. .None Routine Hospital Care Fall Risk: Assessed for patient fall risk and discussed safety measures during rounding. Diet: DIET NPO with meds Parenteral Nutrition Custom +/- Lipids (Central TPN) DVT prophylaxis: SQH/Lovenox Abraham: None Code status: Full CENTRAL LINES: Central Line LDAs Active Central Line Access Devices Name Placement date Placement time Site Days PICC Line - Double Lumen 12/22/24520 basilic vein (medial side of arm), left 12/22/24520 -- 8 Central Line Indications: TPN If patient has multiple lines, please choose the answers of the next two questions to correlate with the lines listed above in descending order Can line/s be removed today? Select all that apply Line 1, no cannot be removed Dressing/s Clean/Dry/Intact?: Select all that apply Line 1, Dressing clean, dry, intact and No line currently in place Patient seen with colorectal team, plan of care discussed, and they are in agreement. DANIAL Farah For patients located in or [facility] please page [phone] * Kary Lewiselisha Bella - 12/30/2024 7:45 AM EDT SICU Daily Progress Note CURRENT ADMISSION/HOSPITALIZATION SUMMARY: SICU Attending Today: Marily Hill MD, MPH SICU Team: CARDOSO: 1st call [phone] [facility] Code status: Full Code Hospital days: LOS: 8 days HOSPITAL COURSE [place]: Conrad Oconnell is a 69 y.o. with a history of HTN/HLD, CAD c/b HFrEF (EF 35%), persistent afib/aflutter s/p DCCV (12/08/24) on tikosyn and eliquis, KIM, COPD, UC (on budesonide and pred 10mg daily) whopresents with perforated diverticulitis s/p ex lap, washout, AMY drain placement on 12/15, briefly admitted to SICU for a few days afterwards for close hemodynamic monitoring. Repeat CTAP 12/21 demonstrated decreased 3.1 from 4cm abscess but a new 8.2cm abscess adjacent to AMY tract. In afib w/ RVR, normotensive earlier today. Now s/p exploratory laparotomy, TAC/EI, SBR x2, serosal injury repair, AMY placement 12/24 She/he was admitted to the [facility] on 12/24/24 from OR d/t pressor requirements SICU ADMISSION: Conrad Oconnell was admitted to the SICU on 12/24/25 due to pressor requirements. His admission was complicated by post-operative ileus. He was briefly stepped down from the ICU (12/27) for clinical improvement, but was re-admitted (12/28) for Afib with RVR. LAST 24 HOURS Afib w/RVR Touched base with EP Ok to switch amiodarone and metoprolol to PO once able to tolerate meds PO Aim to keep Mg at 3.0 Keep Afib meds IV until able to tolerate PO Back in NSR Plan to be net -500 mL or less to prevent hypovolemia NGT to wall suction Monitor Ostomy output CT A/P showed worsening Abscesses Started Cefepime and Metronidazole Replete Mg (goal 3.0) SUMMARY OF PLAN FOR 12/30/2024 Downgrade to PCU status today Plan for IR today for abscess drainage Converted to NSR Stop Prednisone 10mg 4mg IV mg bolus to keep Mg >= 3.0 Switch to Ceftriaxone/Flagyl Discontinue Accuchecks Start IV PPI Fluid Balance goal: Net 0 to -500 ACTIVE CRITICAL CARE PROBLEMS SURGICAL: S/p exploratory laparotomy, washout, AMY drain placement on 12/15 S/p exploratory laparotomy, TAC/EI, SBR x2, serosal injury repair, AMY placement 12/24 6 Days Post-Op AMY to bulb suction, empty q8hr Completed 4 days postop Zosyn (12/24-12/28) NEURO: Acute post-operative pain Scheduled Tylenol Gabapentin 200 mg TID 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 Cardiogenic Septic likely 2/2 intraabdominal abscesses related to colonic perforation with diverticulitis v. UC, now resolving Weaned off levo, hemodynamically stable Continue to monitor Gentle resuscitation if needed given low EF AFIB (chronic s/p DCCV 11/18, on eliquis and tikosyn) Intermittent Afib with RVR thought to be secondary to Hypovolemia in s/o large NGT output and UOP (net negative 3.5 L on 12/27). Plan to treat manage with amiodarone, IVF, IV metoprolol. Fluid Balance goal: Net 0 to -500 mL per day. Currently in NSR (12/30) [id number] Score: 3 EP Recs Outpatient follow up for AF ablation. Amiodarone ggt to 1 mg/min PRN: 5 mg IV metoprolol push Keep Magnesium at 3.0 OK to switch med to PO when pt can tolerate PO meds If unstable, follow ACLS Hold home entresto, tikosyn, SGLT Continue hep gtt 12/28: Cardiac workup Troponin normal Echo consistent w/prior HFrEF Most recent TTE (12/24/2024)- improved EF compared to previous scan (40-45%) Hold home furosemide, aldactone Repeat echo 12/28 consistent with prior RESPIRATORY: Acute hypoxia, resolved Most recent ABG: pH/PCO2/PO2/HCO3: 7.36/35/85/20 (12/24 06) Room air unless sats drop COPD (POA) Continue home trelegy ellipta Continue home PRN albuterol KIM (POA) On nocturnal CPAP GI: Intra abdominal Abscesses Intra abdominal fluid collection seen on CT A/P on 12/29. Consult IR for Drainage Ceftriaxone and Flagyl (EOT ?) Risk for protein calorie malnutrition Diet:DIET NPO with meds Parenteral Nutrition Clinimix Prealbumin: 8 Nutrition plan: TPN @ 95 mL/hr No tube feeds for now given lack of bowel function Post-operative Ileus, improving Holding TF NGT for gastric decompression Abdominal XR showed NGT crossing midline (post-pyloric) Repositioned NGT (12/27) NGT to wall suction - ~2.5L out overnight Start IV PPI CTM Last Bowel Movement: 12/23/24 Bowel regimen: Pending ROBF Ulcerative Colitis 12/30- Hold home prednisone Hold home budesonide RENAL/: MJ, improved: Baseline creatinine: 0.9, current Cr 0.92 UOP at 0.9 cc/kg/hr; continue to monitor LABS Recent Labs 12/28/24 1250 12/28/24 1955 12/29/24 00112/29/24 2356 SODIUM 141 -- 139 140 POTASSIUM 3.8 -- 3.8 3.7 CHLORIDE 106 -- 105 104 CO2 27 -- 25 27 BUN 20 -- 21 25 CREATSERUM 0.83 -- 0.95 0.92 CALCIUM 8.0* -- -- -- MAGNESIUM -- < > 2.9* 2.5 PHOSPHORUS 3.0 -- 2.8 3.3 ICA -- -- 4.67 4.53* < > = values in this interval not displayed. ENDO: Risk for Stress Hyperglycemia: SSI Pre-diabetes - Hgba1c 6.1 (12/07/24) Hold home dapagliflozin LABS Recent Labs 12/29/24 1139 12/29/24 1724 12/29/24 2340 12/29/24 2356 GLUCOSE 128 126 137 102 HEME: Acute blood loss anemia superimposed on anemia of chronic disease Baseline HgB: 12.4 (12/09) Currently 7.5 no concern for active bleeding Will monitor for now Transfuse for HgB<7 LABS Recent Labs 12/29/241412/29/24 2356 HGB 7.2* 7.5* HCT 24.2* 24.8* PLATELET 476* 544* INR 1.2* 1.2* ID: Intra-Abdominal Abscesses IR today for potential Drainage Started Cefepime/Flagyl - 12/29 Switched to Ceftriaxone/Flagyl - EOT per Primary Septic Shock, resolved Secondary to intraabdominal abscesses related to colonic perforation WBC downtrending Completed 4 days course on 12/28 LABS Recent Labs 12/27/24 2345 12/29/24 0015 12/29/24 2356 WBC 13.91* 12.91* 13.36* Temp (24hrs), Av.8 F (36.6 C), Min:97.6 F (36.4 C), Max:98.3 F (36.8 C) Antibiotic Time Out Completed [x] Yes [] No [] N/a Cultures: None Antibiotics: Zosyn (12/22-12/28) Cefepime (12/29) Ceftriaxone/Flagyl (12/30-?) CHRONIC MEDICAL PROBLEMS Complexity. Hypocalcemia - Continue to monitor and replete. Obesity, class I Body mass index is 33.65 kg/m . - Follow with PCP for dietary and lifestyle modifications. Wound Documentation Wound Surgical 12/24/24 0113 Anterior;Midline Abdomen (Active) Date First Assessed/Time First Assessed: 12/24/24 011 Primary Wound Type: Surgical Incision Type: midline Incision Closure/Dressing: Gauze;ABD Wound Description: Fascia closed skin open and packed with 1 kerlex roll damp Wound Location Orientat... Any conditions listed below are present on admission unless otherwise specified. COPD Without Exacerbation Anemia of Chronic Disease ICU CENTRAL LINES & CHECKLIST ICU Checklist: Stress Ulcer Prophylaxis: IV protonix DVT Prophylaxis: Heparin gtt for A-Fib Type/Screen Current: Yes Fall Risk: Assessed for patient fall risk and discussed safety measures during rounding. Labs to be discontinued 12/30/2024 : None Advanced Care Planning: Full code A-G Bundle: [x] Assess pain Presence of Pain: denies pain/discomfort Presence of Pain Score (Auto-calculated): 0 [] Both SAT & SBT B = SAT/SBT Eligibility, Safety Screen & Outcomes (Document Daily in ICU) Is/Was patient receiving continuous sedative/opioid IV medications today?: No - Only receiving medsfor analgesia (Not for sedation) Is/Was patient receiving mechanical ventilation today?: No [x] Choice of analgesia/ sedation See neuro [x] Delirium Overall CAM-ICU: Negative [x] Early mobility PT/OT consulted?: Yes CURRENT AM-PAC Mobility Raw Score: 13 CURRENT AM-PAC Mobility Functional Limitation: 64.91% Impaired in Basic Mobility [x] Family Engagement Primary Emergency Contact: Bridegtte Oconnell Last updated: 12/30 per CRS [x] Get lines out Paula: no Abraham: none Rectal tube: None Enteral access: NGT (placed 12/26) Drains: AMY Drain (placed postop) CENTRAL LINES: Central Line LDAs Active Central Line Access Devices Name Placement date Placement time Site Days PICC Line - Double Lumen 12/22/24 05 basilic vein (medial side of arm), left 12/22/24 05 -- 8 Central Line Daily Indication(s) and Daily Review of Necessity 12/30/2024: If multiple lines, pleaseuse order shown above as reference when selecting line to be removed Invasive hemodynamic monitoring and Medication requiring central venous administration Central Line De-escalation Plan: TPN PHYSICAL EXAM Physical Exam Constitutional: General: He is not in acute distress. Appearance: Normal appearance. HENT: Head: Normocephalic and atraumatic. Eyes: Pupils: Pupils are equal, round, and reactive to light. Cardiovascular: Rate and Rhythm: Normal rate and regular rhythm. Comments: Afib with RVR Pulmonary: Effort: Pulmonary effort is normal. Breath sounds: Normal breath sounds. Abdominal: General: Abdomen is flat. There is no distension. Palpations: Abdomen is soft. Tenderness: There is no abdominal tenderness. Comments: Midline dressing without strikethrough RUQ ileostomy pink at level of skin RLQ AMY SS RLQ tenderness to palpation Musculoskeletal: General: Normal range of motion. Skin: General: Skin is warm and dry. Capillary Refill: Capillary refill takes less than 2 seconds. Neurological: Mental Status: He is alert and oriented to person, place, and time. Psychiatric: Mood and Affect: Mood normal. Behavior: Behavior normal. Heber Oconnell has a high probability of clinically significant imminent life- threatening deteriorationwhich could result in multi-organ failure. I have personally spent 35 minutes exclusive of procedures providing critical care services, including obtaining history, reviewing clinical history, active mediations, outreach consultant recommendations, interpreting vital signs, laboratory and microbiology results, and radiographic studies, developing and discussing management plan with other providers, as well as frequent evaluations to assess response to treatment. Kary Bella [facility] Department of Surgery Division of Critical Care, Trauma, and Burn Phone number: [phone] [facility] and [facility] [employer] Link Cosigned by Marily Hill MD, MPH at 12/30/2024 4:23 PM EDT Associated attestation - Marily Hill MD, MPH - 12/30/2024 4:23 PM EDT Images from the original note were not included. I have seen and examined this patient with the medical student on 12/30/2024. I personally obtained ngo and critical portions of the history and physical exam. I reviewed the medical student's documentation and discussed the patient with them. I agree with the medical decision making as documented below. I personally read and reviewed any images obtained in the last 24 hours. In brief, this is a 69 yo M with h/o HTN, HPL, CAD, HFrEF (EF 40-45%), obesity (BMI 33.6), AF s/p DCCV on tikosyn and eliquis, KIM, COPD, and UC on prednisone 10 mg daily who presented with perforated diverticulitis, s/p washout and drain placement 12/15, c/b c/f uncontrolled perforation/leak, s/p open TAC/end ileostomy, SBR x 2, and UHR 12/24. Postop course c/b AF RVR leading to ICU re- admission 12/27. Summary of plans for the day: -- Downgrade to PCU today -- Awaiting IR procedure today -- Minimizing PO meds in setting of ileus, NGT to LIWS Neuro: -- Multimodal management of acute pain -- Delirium precautions for metabolic encephalopathy Pulm: -- On RA - routine pulmonary toilet -- Home breztri and ipratropium for h/o COPD -- Nocturnal CPAP for h/o KIM CV: -- Converted to NSR with metop this morning - cardiology EP following, on amio and IV metop, hep gtt, goal Mg > 3; holding home eliquis, dofetilide -- Holding home sacubitril-valsartan for h/o HTN and CAD -- Holding home lasix and spirinolactone for h/o HFrEF GI: -- Perforated diverticulitis, s/p washout and drain placement 12/15, c/b c/f uncontrolled perforation/leak, s/p open TAC/end ileostomy, SBR x 2, and UHR 12/24 - c/b ileus with NGT OP 2.5L/24 hours, AROBF in ostomy (only sweat in bag) -- CT A/P yesterday with multiple intraabdominal abscesses - IR consulted -- Holding home prednisone and budesonide for h/o UC -- TPN for nutritional support in s/o severe protein calorie malnutrition (prealbumin 8) and postoperative ileus : -- Urinating spontaneously, UOP adequate, Cr WNL, net neg 1.3L/24 hours -- Hypocalcemia repletion (iCa 4.5) H: -- Systemic AC as above -- Hgb 7.5 (7.2) - CTM acute blood loss anemia E: -- SSI for stress hyperglycemia ID: -- AF, WBC 13.3 (12.9), CT A/P yesterday with multiple intraabdominal abscesses - IR drainage pending, cefepime/flagyl started yesterday Marily Hill MD MPH invoice control clerk Division of Trauma, Critical Care, Burn * Anselmo Galeana Jr., MD - 12/29/2024 2:59 PM EDT SICU Daily Progress Note CURRENT ADMISSION/HOSPITALIZATION SUMMARY: SICU Attending Today: Marily Hill MD, MPH SICU Team: CARDOSO: 1st call [phone] [facility] Code status: Full Code Hospital days: LOS: 7 days [facility] [place]: Conrad Oconnell is a 69 y.o. with a history of HTN/HLD, CAD c/b HFrEF (EF 35%), persistent afib/aflutter s/p DCCV (12/08/24) on tikosyn and eliquis, KIM, COPD, UC (on budesonide and pred 10mg daily) whopresents with perforated diverticulitis s/p ex lap, washout, AMY drain placement on 12/15, briefly admitted to SICU for a few days afterwards for close hemodynamic monitoring. Repeat CTAP 12/21 demonstrated decreased 3.1 from 4cm abscess but a new 8.2cm abscess adjacent to AMY tract. In afib w/ RVR, normotensive earlier today. Now s/p exploratory laparotomy, TAC/EI, SBR x2, serosal injury repair, AMY placement 12/24 She/he was admitted to the [facility] on 12/24/24 from OR d/t pressor requirements SICU ADMISSION: Conrad Oconnell was admitted to the SICU on 12/24/25 due to pressor requirements. His admission was complicated by post-operative ileus. He was briefly stepped down from the ICU (12/27) for clinical improvement, but was re-admitted (12/28) for Afib with RVR. LAST 24 HOURS Afib w/RVR Increased amiodarone ggt to 1 mg/min 2x amiodarone bolus Net -178 mL (Goal between 0 and -500) Amiodarone bolus overnight 8 mg IV Mg per EP NGT to wall suction Thin, dark ostomy output Normal Troponin Echo showed EF 35% consistent with prior on (12/07/2024) Repleted Mg: Goal 3.0 SUMMARY OF PLAN FOR 12/29/2024 Afib w/RVR Discuss plan for Amiodarone titration with EP Keep IV Metoprolol Plan to be net -500 mL or less today NGT to wall suction Monitor Ostomy output CTM ileus CT A/P Per CRS Replete Mg (goal 3.0) ACTIVE CRITICAL CARE PROBLEMS SURGICAL: S/p exploratory laparotomy, washout, AMY drain placement on 12/15 S/p exploratory laparotomy, TAC/EI, SBR x2, serosal injury repair, AMY placement 12/24 4 Days Post-Op AMY to bulb suction, empty q8hr Continue zosyn 4d EOT 12/28 NEURO: Acute post-operative pain Scheduled Tylenol Gabapentin 200 mg TID 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 Cardiogenic Septic likely 2/2 intraabdominal abscesses related to colonic perforation with diverticulitis v. UC, now resolving Weaned off levo, hemodynamically stable Continue to monitor Gentle resuscitation if needed given low EF AFIB (chronic s/p DCCV 11/18, on eliquis and tikosyn) Afib with RVR thought to be secondary to Hypovolemia in s/o large NGT output and UOP (net negative 3.5 L on 12/27). Plan to treat manage with amiodarone, IVF, IV metoprolol. [id number] Score: 3 Most recent ECG: Atrial fibrillation EP consulted Received amio 150mg in OR, addl amio 150mg ordered postop Outpatient follow up for AF ablation. Was in NSR until 12/28 Afib w/RVR 12/28 Overnight gave 25 mg PO metoprolol, no change Amiodarone Bolus Increase amiodarone ggt to 1 mg/min Fluid bolus 5 mg IV metoprolol Hold home entresto, tikosyn, SGLT Hold home metoprolol in the setting of requiring pressors Continue hep gtt Echo EF - 35% Trop wnl Follow up medications with EP HFrEF Most recent TTE (12/24/2024)- improved EF compared to previous scan (40-45%) Hold home furosemide, aldactone Limit IVF if possible Repeat echo 12/28 in s/o Hypovolemia causing Afib with RVR RESPIRATORY: Acute hypoxia, resolved Most recent ABG: pH/PCO2/PO2/HCO3: 7.36/35/85/20 (12/24 613) Room air unless sats drop COPD (POA) Continue home trelegy ellipta Continue home PRN albuterol KIM (POA) On nocturnal CPAP GI: Risk for protein calorie malnutrition Diet:DIET NPO with meds Parenteral Nutrition Clinimix Prealbumin: 8 Nutrition plan: TPN @ 95 mL/hr No tube feeds for now given lack of bowel function Post-operative Ileus Holding TF NGT for gastric decompression Abdominal XR showed NGT crossing midline (post-pyloric) Repositioned NGT (12/27) NGT to wall suction - ~2.9L out overnight CTM Last Bowel Movement: 12/23/24 Bowel regimen: Pending ROBF Ulcerative Colitis Continue home prednisone Hold home budesonide RENAL/: MJ, improved: Baseline creatinine: 0.9, current Cr 0.96 UOP at 1.1 cc/kg/hr; continue to monitor LABS Recent Labs 12/27/24 2345 12/28/24 1250 12/28/24 1955 12/29/24 0015 SODIUM 143 141 -- 139 POTASSIUM 3.9 3.8 -- 3.8 CHLORIDE 104 106 -- 105 CO2 31 27 -- 25 BUN 21 20 -- 21 CREATSERUM 0.96 0.83 -- 0.95 CALCIUM -- 8.0* -- -- MAGNESIUM 2.2 -- 1.8 2.9* PHOSPHORUS 2.0* 3.0 -- 2.8 ICA 4.79 -- -- 4.67 ENDO: Risk for Stress Hyperglycemia: SSI Pre-diabetes - Hgba1c 6.1 (12/07/24) Hold home dapagliflozin LABS Recent Labs 12/29/24 0013 12/29/24 0015 12/29/24 0610 12/29/24 1139 GLUCOSE 151 138 135 128 HEME: Acute blood loss anemia superimposed on anemia of chronic disease Baseline HgB: 12.4 (12/09) Currently 7.4 no concern for active bleeding Will monitor for now Transfuse for HgB<7 LABS Recent Labs 12/27/24 2345 12/29/24 0015 HGB 7.4* 7.2* HCT 24.9* 24.2* PLATELET 480* 476* INR 1.1 1.2* ID: Septic Shock, resolved Secondary to intraabdominal abscesses related to colonic perforation WBC downtrending Continue zosyn, now with source control, stop date of 12/28 LABS Recent Labs 12/27/24 0024 12/27/24 2345 12/29/24 0015 WBC 14.13* 13.91* 12.91* Temp (24hrs), Av.8 F (36.6 C), Min:97.6 F (36.4 C), Max:98.1 F (36.7 C) Antibiotic Time Out Completed [x] Yes [] No [] N/a Cultures: None Antibiotics: Zosyn (12/22-12/28) CHRONIC MEDICAL PROBLEMS Complexity. Obesity, class I Body mass index is 33.65 kg/m . - Follow with PCP for dietary and lifestyle modifications. Wound Documentation Wound Surgical 12/24/24 0113 Anterior;Midline Abdomen (Active) Date First Assessed/Time First Assessed: 12/24/24 011 Primary Wound Type: Surgical Incision Type: midline Incision Closure/Dressing: Gauze;ABD Wound Description: Fascia closed skin open and packed with 1 kerlex roll damp Wound Location Orientat... Any conditions listed below are present on admission unless otherwise specified. COPD Without Exacerbation Anemia of Chronic Disease ICU CENTRAL LINES & CHECKLIST ICU Checklist: Stress Ulcer Prophylaxis: n/a DVT Prophylaxis: Heparin gtt for A-Fib Type/Screen Current: No, order pended 12/27 Fall Risk: Assessed for patient fall risk and discussed safety measures during rounding. Labs to be discontinued 12/29/2024 : None Advanced Care Planning: Full code A-G Bundle: [x] Assess pain Presence of Pain: reports pain/discomfort Presence of Pain Score (Auto-calculated): 0 [] Both SAT & SBT B = SAT/SBT Eligibility, Safety Screen & Outcomes (Document Daily in ICU) Is/Was patient receiving continuous sedative/opioid IV medications today?: No - Only receiving medsfor analgesia (Not for sedation) Is/Was patient receiving mechanical ventilation today?: No [x] Choice of analgesia/ sedation See neuro [x] Delirium Overall CAM-ICU: Negative [x] Early mobility PT/OT consulted?: Yes CURRENT AM-PAC Mobility Raw Score: 17 CURRENT AM-PAC Mobility Functional Limitation: 50.57% Impaired in Basic Mobility [x] Family Engagement Primary Emergency Contact: Bridgette Oconnell Last updated: 12/24, primary team [x] Get lines out Paula: no Abraham: none Rectal tube: None Enteral access: NGT (placed 12/26) Drains: AMY Drain (placed postop) CENTRAL LINES: Central Line LDAs Active Central Line Access Devices Name Placement date Placement time Site Days PICC Line - Double Lumen 12/22/24520 basilic vein (medial side of arm), left 12/22/24520 -- 7 Central Line Daily Indication(s) and Daily Review of Necessity 12/29/2024: If multiple lines, pleaseuse order shown above as reference when selecting line to be removed Invasive hemodynamic monitoring and Medication requiring central venous administration Central Line De-escalation Plan: TPN PHYSICAL EXAM Physical Exam Constitutional: General: He is not in acute distress. Appearance: Normal appearance. HENT: Head: Normocephalic and atraumatic. Eyes: Pupils: Pupils are equal, round, and reactive to light. Cardiovascular: Rate and Rhythm: Tachycardia present. Rhythm irregular. Comments: Afib with RVR Pulmonary: Effort: Pulmonary effort is normal. Breath sounds: Normal breath sounds. Abdominal: General: Abdomen is flat. There is distension. Palpations: Abdomen is soft. Tenderness: There is no abdominal tenderness. Comments: Midline dressing without strikethrough RUQ ileostomy pink at level of skin RLQ AMY SS RLQ tenderness to palpation Musculoskeletal: General: Normal range of motion. Skin: General: Skin is warm and dry. Capillary Refill: Capillary refill takes less than 2 seconds. Neurological: Mental Status: He is alert and oriented to person, place, and time. Psychiatric: Mood and Affect: Mood normal. Behavior: Behavior normal. Heber Oconnell has a high probability of clinically significant imminent life- threatening deteriorationwhich could result in multi-organ failure. I have personally spent 35 minutes exclusive of procedures providing critical care services, including obtaining history, reviewing clinical history, active mediations, outreach consultant recommendations, interpreting vital signs, laboratory and microbiology results, and radiographic studies, developing and discussing management plan with other providers, as well as frequent evaluations to assess response to treatment. Anselmo Galeana Jr., MD SICU Department of Surgery Division of Critical Care, Trauma, and Burn Phone number: [phone] SICU and [facility] [employer] Link Cosigned by Marily Hill MD, MPH at 12/29/2024 5:54 PM EDT Associated attestation - Marily Hill MD, MPH - 12/29/2024 5:54 PM EDT Images from the original note were not included. I have seen and examined this patient with the medical student on 12/29/2024. I personally obtained ngo and critical portions of the history and physical exam. I reviewed the medical student's documentation and discussed the patient with them. I agree with the medical decision making as documented below. I personally read and reviewed any images obtained in the last 24 hours. In brief, this is a 69 yo M with h/o HTN, HPL, CAD, HFrEF (EF 40-45%), obesity (BMI 33.6), AF s/p DCCV on tikosyn and eliquis, KIM, COPD, and UC on prednisone 10 mg daily who presented with perforated diverticulitis, s/p washout and drain placement 12/15, c/b c/f uncontrolled perforation/leak, s/p open TAC/end ileostomy, SBR x 2, and UHR 12/24. Postop course c/b AF RVR leading to ICU re- admission 12/27. Summary of plans for the day: -- If HR > 120 then increase IV metop, maintain amio gtt and discuss transition off gtt with cards EP -- CT A/P with IV per CRS Neuro: -- Multimodal management of acute pain -- Delirium precautions for metabolic encephalopathy Pulm: -- On RA - routine pulmonary toilet -- Home breztri and ipratropium for h/o COPD -- Nocturnal CPAP for h/o KIM CV: -- Worsening AF RVR prompting ICU re-admission 12/27 - cardiology EP re-engaged, on amio and IV metop, hep gtt, goal Mg > 3; holding home eliquis, dofetilide -- Holding home sacubitril-valsartan for h/o HTN and CAD -- Holding home lasix and spirinolactone for h/o HFrEF GI: -- Perforated diverticulitis, s/p washout and drain placement 12/15, c/b c/f uncontrolled perforation/leak, s/p open TAC/end ileostomy, SBR x 2, and UHR 12/24 - c/b ileus with NGT OP 2.3 from 3.8L/24 hours, AROBF in ostomy (only sweat in bag), CT A/P with IV per CRS today -- Home prednisone for h/o UC, holding budesonide -- TPN for nutritional support in s/o severe protein calorie malnutrition (prealbumin 8) and postoperative ileus : -- Urinating spontaneously, UOP adequate, Cr normalized, net neg 178/24 hours - goal net even to -500 H: -- Systemic AC as above -- Hgb 7.2 (7.4) - CTM acute blood loss anemia E: -- SSI for stress hyperglycemia ID: -- AF, WBC 12.9 (13.9) - CT A/P as above Conrad Oconnell has a high probability of clinically significant imminent life- threatening deterioration which could result in multi-organ failure. I have personally spent 35 minutes (CPT code(s) 98375) exclusive of procedures and teaching providing critical care services, including obtaining history, reviewing clinical history, active mediations, outreach consultant recommendations, interpreting vital signs, laboratory and microbiology results, and radiographic studies, developing and discussing management plan with other providers, as well as frequent evaluations to assess response to treatment. Marily Hill MD MPH invoice control clerk Division of Trauma, Critical Care, Burn * Cristina Mendoza V, [facility] - 12/29/2024 1:11 PM EDT Department of Pharmacy TPN Consult Note Patient: Conrad Oconnell Room/Bed: [facility]/A Recommendation: Chemistries, intake/output, glycemic control, and medications reviewed. Electrolytes replacement outside TPN ordered: Potassium 40 meq given Current maintenance IV fluids: None No changes made to next TPN bag starting tonight at 2200. Pharmacy will continue to follow. TPN Formula: Current Rate: continuous TPN at 95 mL/hr. (volume 2280mL) Rate for new bag this evening at 2200: continuous TPN at 95 mL/hr. (volume 2280 mL) TPN Goal Volume: 2280 mL Lipid: SMOFlipid given daily See current IHIS order for electrolyte components and administration details. Please refer to most recent dietitian consult note for nutritional assessment and formula including macronutrient recommendations. . Assessment: Lab Values: Albumin Date Value Ref Range Status 12/24/2024 2.6 (L) 3.5 - 5.0 g/dL Final Prealbumin Date Value Ref Range Status 12/27/2024 8 (L) 17 - 34 mg/dL Final BUN Date Value Ref Range Status 12/29/2024 21 7 - 25 mg/dL Final Creatinine Date Value Ref Range Status 12/29/2024 0.95 0.70 - 1.30 mg/dL Final Glucose Date Value Ref Range Status 12/29/2024 138 Nonfastin-179 mg/dL; Fastin-99 mg/dL Final Glucose (POC Device) Date Value Ref Range Status 12/29/2024 128 Nonfasting Glucose: 70-179 mg/dL Final 12/29/2024 135 Nonfasting Glucose: 70-179 mg/dL Final Hemoglobin A1C HPLC Date Value Ref Range Status 12/07/2024 6.1 (H) 4.7 - 5.6 % Final Sodium Date Value Ref Range Status 12/29/2024 139 135 - 145 mmol/L Final 12/28/2024 141 135 - 145 mmol/L Final Chloride Date Value Ref Range Status 12/29/2024 105 98 - 108 mmol/L Final 12/28/2024 106 98 - 108 mmol/L Final Potassium Date Value Ref Range Status 12/29/2024 3.8 3.5 - 5.0 mmol/L Final 12/28/2024 3.8 3.5 - 5.0 mmol/L Final CO2 Date Value Ref Range Status 12/29/2024 25 21 - 31 mmol/L Final 12/28/2024 27 21 - 31 mmol/L Final Phosphorous Date Value Ref Range Status 12/29/2024 2.8 2.2 - 4.6 mg/dL Final 12/28/2024 3.0 2.2 - 4.6 mg/dL Final Calcium Date Value Ref Range Status 12/28/2024 8.0 (L) 8.6 - 10.5 mg/dL Final 12/26/2024 7.7 (L) 8.6 - 10.5 mg/dL Final ICA Date Value Ref Range Status 12/29/2024 4.67 4.60 - 5.30 mg/dL Final 12/27/2024 4.79 4.60 - 5.30 mg/dL Final Magnesium Date Value Ref Range Status 12/29/2024 2.9 (H) 1.6 - 2.6 mg/dL Final 12/28/2024 1.8 1.6 - 2.6 mg/dL Final Triglycerides Date Value Ref Range Status 12/29/2024 145 <150 mg/dL Final Comment: [<150 mg/dL: Desirable] [150-199 mg/dL: Borderline] [200-499 mg/dL: High] [>500 mg/dL: Very High] 12/27/2024 487 (H) <150 mg/dL Final Comment: [<150 mg/dL: Desirable] [150-199 mg/dL: Borderline] [200-499 mg/dL: High] [>500 mg/dL: Very High] Bilirubin Total Date Value Ref Range Status 12/24/2024 0.6 <1.5 mg/dL Final 12/07/2024 1.0 <1.5 mg/dL Final Fluid Management (24 hrs): I/O last 3 completed shifts: In: 4691.8 [I.V.:2065.1; NG/GT:20; TPN:2105.2; IV Piggyback:499.6] Out: 4870 [Urine:2600; Other:2270] Pharmacy will continue to follow. Name: Cristina Mendoza [facility] Phone: [phone] Date/Time: 12/29/2024 1:11 PM * Kary Bella - 12/29/2024 6:52 AM EDT SICU Daily Progress Note CURRENT ADMISSION/HOSPITALIZATION SUMMARY: SICU Attending Today: Marily Hill MD, MPH SICU Team: CARDOSO: 1st call [phone] SICU and [facility] QGenda Link Code status: Full Code Hospital days: LOS: 7 days [facility]PITAL COURSE [place]: Conrad Oconnell is a 69 y.o. with a history of HTN/HLD, CAD c/b HFrEF (EF 35%), persistent afib/aflutter s/p DCCV (12/08/24) on tikosyn and eliquis, KIM, COPD, UC (on budesonide and pred 10mg daily) whopresents with perforated diverticulitis s/p ex lap, washout, AMY drain placement on 12/15, briefly admitted to SICU for a few days afterwards for close hemodynamic monitoring. Repeat CTAP 12/21 demonstrated decreased 3.1 from 4cm abscess but a new 8.2cm abscess adjacent to AMY tract. In afib w/ RVR, normotensive earlier today. Now s/p exploratory laparotomy, TAC/EI, SBR x2, serosal injury repair, AMY placement 12/24 She/he was admitted to the [facility] on 12/24/24 from OR d/t pressor requirements SICU ADMISSION: Conrad Oconnell was admitted to the SICU on 12/24/25 due to pressor requirements. His admission was complicated by post-operative ileus. He was briefly stepped down from the ICU (12/27) for clinical improvement, but was re-admitted (12/28) for Afib with RVR. LAST 24 HOURS Afib w/RVR Increased amiodarone ggt to 1 mg/min 2x amiodarone bolus Net -178 mL (Goal between 0 and -500) Amiodarone bolus overnight 8 mg IV Mg per EP NGT to wall suction Thin, dark ostomy output Normal Troponin Echo showed EF 35% consistent with prior on (12/07/2024) Repleted Mg: Goal 3.0 SUMMARY OF PLAN FOR 12/29/2024 Afib w/RVR Discuss plan for Amiodarone titration with EP Keep IV Metoprolol Plan to be net -500 mL or less today NGT to wall suction Monitor Ostomy output CT A/P Per CRS Replete Mg (goal 3.0) ACTIVE CRITICAL CARE PROBLEMS SURGICAL: S/p exploratory laparotomy, washout, AMY drain placement on 12/15 S/p exploratory laparotomy, TAC/EI, SBR x2, serosal injury repair, AMY placement 12/24 5 Days Post-Op AMY to bulb suction, empty q8hr Completed Zosyn 12/24-12/28 NEURO: Acute post-operative pain Scheduled Tylenol Gabapentin 200 mg TID 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 Plan to treat manage with amiodarone, IVF, IV metoprolol. [id number] Score: 3 Most recent ECG: Atrial fibrillation EP consulted Received amio 150mg in OR, addl amio 150mg ordered postop Outpatient follow up for AF ablation. Was in NSR until 12/28 Afib w/RVR 12/28 Plan to continue metoprolol IV 2x Amiodarone Bolus Keep amiodarone ggt to 1 mg/min 5 mg IV metoprolol prn Titrate IVF to net 0 to -500 Normal troponin 12/28 Hold home entresto, tikosyn, SGLT Continue hep gtt [place] back with EP to discuss amiodarone wean HFrEF, EF 35% Most recent TTE (12/24/2024)- improved EF compared to previous scan (40-45%) Repeat echo 12/28 in s/o Hypovolemia causing Afib with RVR Echo showed EF 35%, consistent with scan (12/07/2024) Hold home furosemide, aldactone Titrate IVF to net 0 or -500 Shock: Septic v. Cardiogenic, Resolved Septic likely 2/2 intraabdominal abscesses related to colonic perforation with diverticulitis v. UC Weaned off levo, hemodynamically stable Continue to monitor RESPIRATORY: Acute hypoxia, resolved Most recent ABG: pH/PCO2/PO2/HCO3: 7.36/35/85/20 (12/24 613) Room air unless sats drop COPD (POA) Continue home trelegy ellipta Continue home PRN albuterol KIM (POA) On nocturnal CPAP GI: Risk for protein calorie malnutrition Diet:DIET NPO with meds Parenteral Nutrition Clinimix Prealbumin: 8 Nutrition plan: TPN @ 95 mL/hr No tube feeds for now given lack of bowel function Post-operative Ileus Holding TF NGT for gastric decompression Abdominal XR showed NGT crossing midline (post-pyloric) Repositioned NGT (12/27) CT A/P 12/29 per primary NGT to wall suction Last Bowel Movement: 12/23/24 Bowel regimen: Pending ROBF Ulcerative Colitis Continue home prednisone Hold home budesonide RENAL/: MJ, improved: Baseline creatinine: 0.9, current Cr 0.95 UOP at 1.1 cc/kg/hr; continue to monitor LABS Recent Labs 12/27/24 2345 12/28/24 1250 12/28/24 1955 12/29/24 0015 SODIUM 143 141 -- 139 POTASSIUM 3.9 3.8 -- 3.8 CHLORIDE 104 106 -- 105 CO2 31 27 -- 25 BUN 21 20 -- 21 CREATSERUM 0.96 0.83 -- 0.95 CALCIUM -- 8.0* -- -- MAGNESIUM 2.2 -- 1.8 2.9* PHOSPHORUS 2.0* 3.0 -- 2.8 ICA 4.79 -- -- 4.67 Electrolyte disturbances Hypomagnesemia Hypophosphatemia Replete as needed IV Mg to maintain Mg >3.0 ENDO: Risk for Stress Hyperglycemia: SSI Pre-diabetes - Hgba1c 6.1 (12/07/24) Hold home dapagliflozin LABS Recent Labs 12/29/24 0013 12/29/24 0015 12/29/24 0610 12/29/24 1139 GLUCOSE 151 138 135 128 HEME: Acute blood loss anemia superimposed on anemia of chronic disease Baseline HgB: 12.4 (12/09) Currently 7.2 no concern for active bleeding Type and screen ordered Transfuse for HgB<7 LABS Recent Labs 12/27/24 2345 12/29/24 0015 HGB 7.4* 7.2* HCT 24.9* 24.2* PLATELET 480* 476* INR 1.1 1.2* ID: Septic Shock, resolved Secondary to intraabdominal abscesses related to colonic perforation WBC downtrending Continue zosyn, now with source control, stop date of 12/28 LABS Recent Labs 12/27/24 0024 12/27/24 2345 12/29/24 0015 WBC 14.13* 13.91* 12.91* Temp (24hrs), Av.8 F (36.6 C), Min:97.6 F (36.4 C), Max:98.1 F (36.7 C) Antibiotic Time Out Completed [x] Yes [] No [] N/a Cultures: None Antibiotics: Zosyn (12/22-12/28) CHRONIC MEDICAL PROBLEMS Complexity. Obesity, class I Body mass index is 33.65 kg/m . - Follow with PCP for dietary and lifestyle modifications. Wound Documentation Wound Surgical 12/24/24 0113 Anterior;Midline Abdomen (Active) Date First Assessed/Time First Assessed: 12/24/24 0113 Primary Wound Type: Surgical Incision Type: midline Incision Closure/Dressing: Gauze;ABD Wound Description: Fascia closed skin open and packed with 1 kerlex roll damp Wound Location Orientat... Any conditions listed below are present on admission unless otherwise specified. COPD Without Exacerbation Anemia of Chronic Disease ICU CENTRAL LINES & CHECKLIST ICU Checklist: Stress Ulcer Prophylaxis: n/a DVT Prophylaxis: Heparin gtt for A-Fib Type/Screen Current: Yes Fall Risk: Assessed for patient fall risk and discussed safety measures during rounding. Labs to be discontinued 12/29/2024 : None Advanced Care Planning: Full code A-G Bundle: [x] Assess pain Presence of Pain: reports pain/discomfort Presence of Pain Score (Auto-calculated): 0 [x] Both SAT & SBT B = SAT/SBT Eligibility, Safety Screen & Outcomes (Document Daily in ICU) Is/Was patient receiving continuous sedative/opioid IV medications today?: No - Only receiving medsfor analgesia (Not for sedation) Is/Was patient receiving mechanical ventilation today?: No [x] Choice of analgesia/ sedation See neuro [x] Delirium Overall CAM-ICU: Negative [x] Early mobility PT/OT consulted?: Yes CURRENT AM-PAC Mobility Raw Score: 17 CURRENT AM-PAC Mobility Functional Limitation: 50.57% Impaired in Basic Mobility [x] Family Engagement Primary Emergency Contact: Bridgette Oconnell Last updated: 12/29, during rounds [x] Get lines out [place]: no Abraham: none Rectal tube: None Enteral access: NGT (placed 12/26) Drains: AMY Drain (placed postop) CENTRAL LINES: Central Line LDAs Active Central Line Access Devices Name Placement date Placement time Site Days PICC Line - Double Lumen 12/22/24520 basilic vein (medial side of arm), left 12/22/24 05 -- 7 Central Line Daily Indication(s) and Daily Review of Necessity 12/29/2024: If multiple lines, pleaseuse order shown above as reference when selecting line to be removed Invasive hemodynamic monitoring and Medication requiring central venous administration Central Line De-escalation Plan: TPN PHYSICAL EXAM Physical Exam Vitals reviewed. Constitutional: General: He is not in acute distress. Appearance: Normal appearance. HENT: Head: Normocephalic and atraumatic. Eyes: Pupils: Pupils are equal, round, and reactive to light. Cardiovascular: Rate and Rhythm: Tachycardia present. Rhythm irregular. Comments: Afib with RVR Pulmonary: Effort: Pulmonary effort is normal. Breath sounds: Normal breath sounds. Abdominal: General: Abdomen is flat. There is distension. Palpations: Abdomen is soft. Tenderness: There is abdominal tenderness. Comments: Midline dressing without strikethrough RUQ ileostomy pink at level of skin Dark red output in ostomy bag RLQ AMY SS LLQ and LUQ tenderness to palpation Left side of abdomen is more tense than right Musculoskeletal: General: Normal range of motion. Skin: General: Skin is warm and dry. Capillary Refill: Capillary refill takes less than 2 seconds. Neurological: Mental Status: He is alert and oriented to person, place, and time. Psychiatric: Mood and Affect: Mood normal. Behavior: Behavior normal. Heber Oconnell has a high probability of clinically significant imminent life- threatening deteriorationwhich could result in multi-organ failure. I have personally spent 35 minutes exclusive of procedures providing critical care services, including obtaining history, reviewing clinical history, active mediations, outreach consultant recommendations, interpreting vital signs, laboratory and microbiology results, and radiographic studies, developing and discussing management plan with other providers, as well as frequent evaluations to assess response to treatment. Kary Bella [facility] Department of Surgery Division of Critical Care, Trauma, and Burn Phone number: [phone] [facility] and Enio [facility] Kevona Link Cosigned by Marily Hill MD, MPH at 12/29/2024 5:54 PM EDT Associated attestation - Marily Hill MD, MPH - 12/29/2024 5:54 PM EDT Images from the original note were not included. See attestation from same-day resident note. Marily Hill MD MPH invoice control clerk Division of Trauma, Critical Care, Burn Pager [phone] * Bianka Aroldo Bunch, [facility] - 12/29/2024 5:51 AM EDT Colorectal Surgery Daily Progress Note Attending: Barbara Call MD Length of Stay: 7 Surgery: s/p open total abdominal colectomy with EI, SBR x2, repair of serosal tear, umbilical hernia repair with AMY placement on 12/24 Subjective/Interval events: Transferred back to ICU level of care yesterday due to RVR. HR better controlled overnight. Received amio boluses x2 and gtt increased back to 1 mg/min. Remains HDS. Feeling ok this morning. NG remains in place. 2.2L in 24h. No gas, scant amount of stool in ostomy appliance. AROBF. NPO with TPN. Pain well controlled on current regimen. O:BP 113/65 Pulse 121 Temp 97.9 F (36.6 C) (Oral) Resp 21 Ht 1.753 m (5' 9.02) Wt 103.4 kg (227 lb 15.3 oz) SpO2 97% BMI 33.65 kg/m Smoking Status Former 12/28 0700 - 12/29 0659 In: 4691.8 [I.V.:6.1] Out: 4870 [Urine:2600] PE: General: NAD, lying in bed Pulm: Respirations easy and non labored Abd:soft, appropriately tender, mildly distended. Stoma pink and protruding above skin level with serosanguineous drainage in ostomy appliance, AMY with serosanguineous drainage, midline abdominal dressing D/I. Labs: WBC/Hgb/Hct/Plts: 12.91/7.2/24.2/476 (12/29 14) Bun/Creat/Cl/CO2/Glucose: 21/0.95/105/25/138 (12/29 001) Na/K+/Phos/Mg/Ca: 139/3.8/2.8/2.9/8.0 (12/28 1250-12/29 14) A/P: Conrad Oconnell is a 69 y.o. male with a PMH of long-standing persistent Afib (on metop 50 BID), HFrEF 2/2 rate uncontrolled Afib (LVEF reportedly 40% at OSH echo), COPD, Ulcerative Colitis, HTN, and KIM. He was admitted to an OSH on 12/13/24 with perforated sigmoid diverticulitis s/p underwent exp lap with drainage of abscess, washout and drain placement on 12/15 c/b Afib with RVR requiring an ICU admission. On 12/17, he developed worsening abdominal pain with distention and CT showed a new hypodense rim enhancing collection c/f new abscess & feculent output from AMY drain. He was transferred to [facility] for further management in the setting of worsening intra-abdominal abscesses and is now s/p open total abdominal colectomy with EI, SBR x2, repair of serosal tear, unbilical hernia repair with AMY placement on 12/24. Today's Plan AROBF Initiate metoprolol IV Q6h CT A/P w/ contrast to r/o abscess OK to downgrade to PCU Ulcerative colitis: not on biologics, continue home prednisone, holding home budesonide Bowel perforation: 2/2 sigmoid diverticulitis vs Ulcerative colitis Intra-abdominal abscess: 2/2 bowel perforation, unclear etiology S/p surgery (see above) Path pending AROBF NG for decompression, resuscitation if needed for high output CT A/P with contrast pending DIET NPO with meds Parenteral Nutrition Custom +/- Lipids (Central TPN) ATB: zosyn (12/23-12/28) Wound care: BID WTD dressing change, wound vac placement today WOCN consult for new ostomy AMY drain to bulb suction Protein calorie malnutrition: Lining Layer consulted, appreciate recommendations DIET NPO with meds Parenteral Nutrition Custom +/- Lipids (Central TPN) Continue TPN until ROBF Thiamine for risk of refeeding Long-standing persistent Atrial fibrillation (POA): s/p DCCV on 11/18, on eliquis and tikosyn at home, [id number] = 3. EP consulted, appreciate recommendations - signed off Back in RVR overnight 12/28, transferred back to ICU - received additional amio boluses and gtt increased to 1mg/min - continue infusion Add scheduled IV metoprolol Troponin negative Echo pending Will transition to oral amio 200 mg daily when feasible Discontinue home Tikosyn resume home metoprolol at 25mg BID at discharge Continue heparin gtt for anticoagulation, will resume home Eliquis closer to discharge. Can undergo 14day MCT and EP follow up after discharge (orders placed) Acute pain: multimodal pain regimen: scheduled tylenol, gabapentin Prn Oxycodone, prn dilaudid for breakthrough Shock: possibly septic 2/2 intra-abdominal abscess r/t colonic perforation with diverticulitis vs cardiogenic given hx of heart failure - resolved Weaned off pressors, HDS, lactate normalized. Most recent TTE with improvement in EF Fluid resuscitation as needed. Acute respiratory failure - resolved. COPD: continue home trelegy ellipta with prn albuterol KIM: nocturnal Cpap MJ: resolved, baseline sCr 0.9, peaked at 1.48, now trending down. Urine output adequate. Monitor. Diabetes, type 2: Hgb A1c 6.1 (12/07), holding Dapagliflozin, will resume closer to discharge. SSI as needed, accuchecks Q6h Acute Blood Loss Anemia vs Precipitous Drop in Hemoglobin Likely Secondary to Fluid Resuscitation: baseline hgb 12.4, minimal EBL, likely related to ongoing resuscitation and fluid shifting. Current hgb stable. Low concern for active bleeding. Daily CBC. Complexity. Obesity, class I Body mass index is 33.65 kg/m . - Follow with PCP for dietary and lifestyle modifications. Wound Documentation Wound Surgical 12/24/24 0113 Anterior;Midline Abdomen (Active) Date First Assessed/Time First Assessed: 12/24/24 0113 Primary Wound Type: Surgical Incision Type: midline Incision Closure/Dressing: Gauze;ABD Wound Description: Fascia closed skin open and packed with 1 kerlex roll damp Wound Location Orientat... Any conditions listed below are present on admission unless otherwise specified. .None Other Co-morbidities HFrEF: TTE (12/24/2024) with improvement in EF (40-45%) Holding home furosemide & Aldactone Monitor Fall Risk: Assessed for patient fall risk and discussed safety measures during rounding. Diet: DIET NPO with meds Parenteral Nutrition Custom +/- Lipids (Central TPN) DVT prophylaxis: SQH/Lovenox Abraham: None Code status: Full Central lines: Yes or No CENTRAL LINES: Central Line LDAs Active Central Line Access Devices Name Placement date Placement time Site Days PICC Line - Double Lumen 12/22/24520 basilic vein (medial side of arm), left 12/22/24 05 -- 7 Central Line Indications: TPN If patient has multiple lines, please choose the answers of the next two questions to correlate with the lines listed above in descending order Can line/s be removed today? Select all that apply No line in place at this time Dressing/s Clean/Dry/Intact?: Select all that apply No line currently in place Patient seen with colorectal team, plan of care discussed, and they are in agreement. DANIAL Carballo Please be aware there has been a pager change. Please page #[phone] for [facility] patients and #[phone] for and [facility]. * Kary Bella - 12/28/2024 8:04 AM EDT SICU Daily Progress Note CURRENT ADMISSION/HOSPITALIZATION SUMMARY: SICU Attending Today: Marily Hill MD, MPH SICU Team: CARDOSO: 1st call [phone] SICU and [facility] SICU QGenda Link Code status: Full Code Hospital days: LOS: 6 days HOSPITAL COURSE [place]: Conrad Oconnell is a 69 y.o. with a history of HTN/HLD, CAD c/b HFrEF (EF 35%), persistent afib/aflutter s/p DCCV (12/08/24) on tikosyn and eliquis, KIM, COPD, UC (on budesonide and pred 10mg daily) whopresents with perforated diverticulitis s/p ex lap, washout, AMY drain placement on 12/15, briefly admitted to SICU for a few days afterwards for close hemodynamic monitoring. Repeat CTAP 12/21 demonstrated decreased 3.1 from 4cm abscess but a new 8.2cm abscess adjacent to AMY tract. In afib w/ RVR, normotensive earlier today. Now s/p exploratory laparotomy, TAC/EI, SBR x2, serosal injury repair, AMY placement 12/24 She/he was admitted to the [facility] on 12/24/24 from OR d/t pressor requirements SICU ADMISSION: Conrad Oconnell was admitted to the SICU on 12/24/25 due to pressor requirements. His admission was complicated by post-operative ileus. He was briefly stepped down from the ICU (12/27) for clinical improvement, but was re-admitted (12/28) for Afib with RVR. LAST 24 HOURS Pain is much better controlled No ostomy output or gas NGT for post-operative Ileus: net out 3.8 L Abdominal XR 0800 showed large gastric bubble Went back into Afib with RVR overnight Received 25 mg PO Metoprolol with no improvement Repleted Phosphorous SUMMARY OF PLAN FOR 12/28/2024 Afib w/RVR Increased amiodarone ggt to 1 mg/min Amiodarone bolus (check with pharmacy on loading dose) Fluid bolus titrated base on NGT output Plan to be net -500 mL or less today NGT to wall suction Fluid bolus prn based on NGT output AROBF: keep NPO EOT (12/28) for Zosyn Add troponin and Echo Re-check Phos in PM ACTIVE CRITICAL CARE PROBLEMS SURGICAL: S/p exploratory laparotomy, washout, AMY drain placement on 12/15 S/p exploratory laparotomy, TAC/EI, SBR x2, serosal injury repair, AMY placement 12/24 4 Days Post-Op AMY to bulb suction, empty q8hr Continue zosyn 4d EOT 12/28 NEURO: Acute post-operative pain Scheduled Tylenol Gabapentin 200 mg TID 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 Cardiogenic Septic likely 2/2 intraabdominal abscesses related to colonic perforation with diverticulitis v. UC, now resolving Weaned off levo, hemodynamically stable Continue to monitor Gentle resuscitation if needed given low EF AFIB (chronic s/p DCCV 11/18, on eliquis and tikosyn) Afib with RVR thought to be secondary to Hypovolemia in s/o large NGT output and UOP (net negative 3.5 L on 12/27). Plan to treat manage with amiodarone, IVF, IV metoprolol. [id number] Score: 3 Most recent ECG: Atrial fibrillation EP consulted Received amio 150mg in OR, addl amio 150mg ordered postop Outpatient follow up for AF ablation. Was in NSR until 12/28 Afib w/RVR 12/28 Overnight gave 25 mg PO metoprolol, no change Amiodarone Bolus Increase amiodarone ggt to 1 mg/min Fluid bolus 5 mg IV metoprolol Hold home entresto, tikosyn, SGLT Hold home metoprolol in the setting of requiring pressors Continue hep gtt Get Echo Follow troponin HFrEF Most recent TTE (12/24/2024)- improved EF compared to previous scan (40-45%) Hold home furosemide, aldactone Limit IVF if possible Repeat echo 12/28 in s/o Hypovolemia causing Afib with RVR RESPIRATORY: Acute hypoxia, resolved Most recent ABG: pH/PCO2/PO2/HCO3: 7.36/35/85/20 (12/24 06) Room air unless sats drop COPD (POA) Continue home trelegy ellipta Continue home PRN albuterol KIM (POA) On nocturnal CPAP GI: Risk for protein calorie malnutrition Diet:DIET NPO with meds Parenteral Nutrition Clinimix Prealbumin: 8 Nutrition plan: TPN @ 95 mL/hr No tube feeds for now given lack of bowel function Post-operative Ileus Holding TF NGT for gastric decompression Abdominal XR showed NGT crossing midline (post-pyloric) Repositioned NGT (12/27) NGT to wall suction Last Bowel Movement: 12/23/24 Bowel regimen: Pending ROBF Ulcerative Colitis Continue home prednisone Hold home budesonide RENAL/: MJ, improved: Baseline creatinine: 0.9, current Cr 0.96 UOP at 1.1 cc/kg/hr; continue to monitor LABS Recent Labs 12/26/24 0008 12/27/24 0024 12/27/24 0142 12/27/24 2345 SODIUM 135 -- 141 143 POTASSIUM 3.8 -- 4.2 3.9 CHLORIDE 100 -- 103 104 CO2 25 -- 31 31 BUN 21 -- 20 21 CREATSERUM 1.48* -- 1.05 0.96 CALCIUM 7.7* -- -- -- MAGNESIUM 2.1 2.5 -- 2.2 PHOSPHORUS 3.0 3.6 -- 2.0* ICA -- 4.36* -- 4.79 ENDO: Risk for Stress Hyperglycemia: SSI Pre-diabetes - Hgba1c 6.1 (12/07/24) Hold home dapagliflozin LABS Recent Labs 12/27/24 1731 12/27/24 2326 12/27/24 2345 12/28/24 0615 GLUCOSE 118 121 114 131 HEME: Acute blood loss anemia superimposed on anemia of chronic disease Baseline HgB: 12.4 (12/09) Currently 7.4 no concern for active bleeding Will monitor for now Transfuse for HgB<7 LABS Recent Labs 12/27/24 0024 12/27/24 0142 12/27/24 2345 HGB 7.3* -- 7.4* HCT 23.5* -- 24.9* PLATELET 393* -- 480* INR -- 1.2* 1.1 ID: Septic Shock, resolved Secondary to intraabdominal abscesses related to colonic perforation WBC downtrending Continue zosyn, now with source control, stop date of 12/28 LABS Recent Labs 12/26/24 0008 12/27/24 0024 12/27/24 2345 WBC 20.39* 14.13* 13.91* Temp (24hrs), Av.9 F (36.6 C), Min:97.3 F (36.3 C), Max:99.2 F (37.3 C) Antibiotic Time Out Completed [x] Yes [] No [] N/a Cultures: None Antibiotics: Zosyn (12/22-12/28) CHRONIC MEDICAL PROBLEMS Complexity. Hypophosphatemia - Continue to monitor and replete. Obesity, class I Body mass index is 33.65 kg/m . - Follow with PCP for dietary and lifestyle modifications. Wound Documentation Wound Surgical 12/24/24 0113 Anterior;Midline Abdomen (Active) Date First Assessed/Time First Assessed: 12/24/24 0113 Primary Wound Type: Surgical Incision Type: midline Incision Closure/Dressing: Gauze;ABD Wound Description: Fascia closed skin open and packed with 1 kerlex roll damp Wound Location Orientat... Any conditions listed below are present on admission unless otherwise specified. COPD Without Exacerbation Anemia of Chronic Disease ICU CENTRAL LINES & CHECKLIST ICU Checklist: Stress Ulcer Prophylaxis: n/a DVT Prophylaxis: Heparin gtt for A-Fib Type/Screen Current: No, order pended 12/27 Fall Risk: Assessed for patient fall risk and discussed safety measures during rounding. Labs to be discontinued 12/28/2024 : None Advanced Care Planning: Full code A-G Bundle: [x] Assess pain Presence of Pain: reports pain/discomfort Presence of Pain Score (Auto-calculated): 0 [] Both SAT & SBT B = SAT/SBT Eligibility, Safety Screen & Outcomes (Document Daily in ICU) Is/Was patient receiving continuous sedative/opioid IV medications today?: No - Only receiving medsfor analgesia (Not for sedation) Is/Was patient receiving mechanical ventilation today?: No [x] Choice of analgesia/ sedation See neuro [x] Delirium Overall CAM-ICU: Negative [x] Early mobility PT/OT consulted?: Yes CURRENT AM-PAC Mobility Raw Score: 17 CURRENT AM-PAC Mobility Functional Limitation: 50.57% Impaired in Basic Mobility [x] Family Engagement Primary Emergency Contact: Bridgette Oconnell Last updated: 12/24, primary team [x] Get lines out [place]: no Abraham: none Rectal tube: None Enteral access: NGT (placed 12/26) Drains: AMY Drain (placed postop) CENTRAL LINES: Central Line LDAs Active Central Line Access Devices Name Placement date Placement time Site Days PICC Line - Double Lumen 12/22/24 05 basilic vein (medial side of arm), left 12/22/24 0521 -- 6 Central Line Daily Indication(s) and Daily Review of Necessity 12/28/2024: If multiple lines, pleaseuse order shown above as reference when selecting line to be removed Invasive hemodynamic monitoring and Medication requiring central venous administration Central Line De-escalation Plan: TPN PHYSICAL EXAM Physical Exam Constitutional: General: He is not in acute distress. Appearance: Normal appearance. HENT: Head: Normocephalic and atraumatic. Eyes: Pupils: Pupils are equal, round, and reactive to light. Cardiovascular: Rate and Rhythm: Tachycardia present. Rhythm irregular. Comments: Afib with RVR Pulmonary: Effort: Pulmonary effort is normal. Breath sounds: Normal breath sounds. Abdominal: General: Abdomen is flat. There is distension. Palpations: Abdomen is soft. Tenderness: There is no abdominal tenderness. Comments: Midline dressing without strikethrough RUQ ileostomy pink at level of skin RLQ AMY SS RLQ tenderness to palpation Musculoskeletal: General: Normal range of motion. Skin: General: Skin is warm and dry. Capillary Refill: Capillary refill takes less than 2 seconds. Neurological: Mental Status: He is alert and oriented to person, place, and time. Psychiatric: Mood and Affect: Mood normal. Behavior: Behavior normal. Heber Oconnell has a high probability of clinically significant imminent life- threatening deteriorationwhich could result in multi-organ failure. I have personally spent 35 minutes exclusive of procedures providing critical care services, including obtaining history, reviewing clinical history, active mediations, outreach consultant recommendations, interpreting vital signs, laboratory and microbiology results, and radiographic studies, developing and discussing management plan with other providers, as well as frequent evaluations to assess response to treatment. Kary Bella [facility] Department of Surgery Division of Critical Care, Trauma, and Burn Phone number: [phone] [facility] Link Cosigned by Marily Hill MD, MPH at 12/29/2024 10:41 AM EDT Associated attestation - Marily Hill MD, MPH - 12/29/2024 10:41 AM EDT Images from the original note were not included. I have seen and examined this patient with the medical student on 12/28/2024. I personally obtained ngo and critical portions of the history and physical exam. I reviewed the medical student's documentation and discussed the patient with them. I agree with the medical decision making as documented below. I personally read and reviewed any images obtained in the last 24 hours. In brief, this is a 69 yo M with h/o HTN, HPL, CAD, HFrEF (EF 40-45%), obesity (BMI 33.6), AF s/p DCCV on tikosyn and eliquis, KIM, COPD, and UC on prednisone 10 mg daily who presented with perforated diverticulitis, s/p washout and drain placement 12/15, c/b c/f uncontrolled perforation/leak, s/p open TAC/end ileostomy, SBR x 2, and UHR 12/24. Postop course c/b AF RVR leading to ICU re- admission 12/27. Summary of plans for the day: -- Worsening AF RVR prompting ICU re-admission yesterday, likely 2/2 hypovolemia (-3L negative) andmassive gastric distension when NGT off suction - re-bolus amio and increase rate, continue hep gtt, send Tn and TTE as well as repeat electrolytes Neuro: -- Multimodal management of acute pain -- Delirium precautions for metabolic encephalopathy Pulm: -- On CPAP - wean O2 as able in s/o AHRF and COPD, aggressive pulmonary toilet, home breztri and ipratropium -- Nocturnal CPAP for h/o KIM CV: -- Worsening AF RVR prompting ICU re-admission yesterday, likely 2/2 hypovolemia (-3.5 L negative) and massive gastric distension when NGT off suction - re- bolus amio and increase rate, continue hep gtt, send Tn and TTE as well as repeat electrolytes; holding home eliquis, dofetilide, BB -- Holding home sacubitril-valsartan for h/o HTN and CAD -- Holding home lasix and spirinolactone for h/o HFrEF GI: -- Perforated diverticulitis, s/p washout and drain placement 12/15, c/b c/f uncontrolled perforation/leak, s/p open TAC/end ileostomy, SBR x 2, and UHR 12/24 - c/b ileus with NGT OP 3.8L/24 hours, AROBF in ostomy -- Home prednisone for h/o UC, holding budesonide -- TPN for nutritional support in s/o severe protein calorie malnutrition (prealbumin 8) and postoperative ileus : -- Urinating spontaneously, UOP adequate, Cr normalized -- Hypophosphatemia (P 2.0) repletion H: -- Systemic AC as above -- Hgb 7.4 (7.3) - CTM acute blood loss anemia E: -- SSI for stress hyperglycemia ID: -- AF, WBC 13.9 (14.1) on prednisone, zosyn (-12/28) for empiric enteric coverage Conrad Oconnell has a high probability of clinically significant imminent life- threatening deterioration which could result in multi-organ failure. I have personally spent 35 minutes (CPT code(s) 57178) exclusive of procedures and teaching providing critical care services, including obtaining history, reviewing clinical history, active mediations, outreach consultant recommendations, interpreting vital signs, laboratory and microbiology results, and radiographic studies, developing and discussing management plan with other providers, as well as frequent evaluations to assess response to treatment. Marily Hill MD MPH invoice control clerk Division of Trauma, Critical Care, Burn * Delaon Lal, [facility] - 12/28/2024 7:09 AM EDT Department of Pharmacy TPN Consult Note Patient: Conrad Oconnell Room/Bed: [facility]/ Recommendation: Chemistries, intake/output, glycemic control, and medications reviewed. Electrolytes replacement outside TPN ordered: Per ordered electrolyte protocol Current maintenance IV fluids: None Increasase Kphos to 40 mmol and stopped KCL. Pharmacy will continue to follow. TPN Formula: Current Rate: continuous TPN at 95 mL/hr. (volume 2280 mL) Rate for new bag this evening at 2200: continuous TPN at 95 mL/hr. (volume 2280 mL) TPN Goal Volume: 2280 mL Lipid: SMOFlipid given daily See current IHIS order for electrolyte components and administration details. Please refer to most recent dietitian consult note for nutritional assessment and formula including macronutrient recommendations. . Assessment: Lab Values: Albumin Date Value Ref Range Status 12/24/2024 2.6 (L) 3.5 - 5.0 g/dL Final Prealbumin Date Value Ref Range Status 12/27/2024 8 (L) 17 - 34 mg/dL Final BUN Date Value Ref Range Status 12/27/2024 21 7 - 25 mg/dL Final Creatinine Date Value Ref Range Status 12/27/2024 0.96 0.70 - 1.30 mg/dL Final Glucose Date Value Ref Range Status 12/27/2024 114 Nonfastin-179 mg/dL; Fastin-99 mg/dL Final Glucose (POC Device) Date Value Ref Range Status 12/28/2024 131 Nonfasting Glucose: 70-179 mg/dL Final 12/27/2024 121 Nonfasting Glucose: 70-179 mg/dL Final Hemoglobin A1C HPLC Date Value Ref Range Status 12/07/2024 6.1 (H) 4.7 - 5.6 % Final Sodium Date Value Ref Range Status 12/27/2024 143 135 - 145 mmol/L Final 12/27/2024 141 135 - 145 mmol/L Final Chloride Date Value Ref Range Status 12/27/2024 104 98 - 108 mmol/L Final 12/27/2024 103 98 - 108 mmol/L Final Potassium Date Value Ref Range Status 12/27/2024 3.9 3.5 - 5.0 mmol/L Final 12/27/2024 4.2 3.5 - 5.0 mmol/L Final CO2 Date Value Ref Range Status 12/27/2024 31 21 - 31 mmol/L Final 12/27/2024 31 21 - 31 mmol/L Final Phosphorous Date Value Ref Range Status 12/27/2024 2.0 (L) 2.2 - 4.6 mg/dL Final 12/27/2024 3.6 2.2 - 4.6 mg/dL Final Calcium Date Value Ref Range Status 12/26/2024 7.7 (L) 8.6 - 10.5 mg/dL Final 12/25/2024 7.6 (L) 8.6 - 10.5 mg/dL Final ICA Date Value Ref Range Status 12/27/2024 4.79 4.60 - 5.30 mg/dL Final 12/27/2024 4.36 (L) 4.60 - 5.30 mg/dL Final Magnesium Date Value Ref Range Status 12/27/2024 2.2 1.6 - 2.6 mg/dL Final 12/27/2024 2.5 1.6 - 2.6 mg/dL Final Triglycerides Date Value Ref Range Status 12/27/2024 487 (H) <150 mg/dL Final Comment: [<150 mg/dL: Desirable] [150-199 mg/dL: Borderline] [200-499 mg/dL: High] [>500 mg/dL: Very High] 12/25/2024 120 <150 mg/dL Final Comment: [<150 mg/dL: Desirable] [150-199 mg/dL: Borderline] [200-499 mg/dL: High] [>500 mg/dL: Very High] Bilirubin Total Date Value Ref Range Status 12/24/2024 0.6 <1.5 mg/dL Final 12/07/2024 1.0 <1.5 mg/dL Final Fluid Management (24 hrs): I/O last 3 completed shifts: In: 3149.9 [I.V.:753.5; NG/GT:50; TPN:2030.2; IV Piggyback:316.2] Out: 6650 [Urine:2850; Other:3800] Pharmacy will continue to follow. Name: Delano Lal RPH Phone: [phone] Date/Time: 12/28/2024 7:09 AM * Bianka Bunch, ANTHROPOLOGY AND ARCHEOLOGY INSTRUCTOR-OFFSET LABEL REWINDER - 12/28/2024 6:32 AM EDT Colorectal Surgery Daily Progress Note Attending: Barbara Call MD Length of Stay: 6 Surgery: s/p open total abdominal colectomy with EI, SBR x2, repair of serosal tear, umbilical hernia repair with AMY placement on 12/24 Subjective/Interval events: Back in RVR overnight with HR in the 130-140s. Given 25mg of metoprololpo but no change in heart rate. Remains HDS. Feels ok this morning but having more pain. C/o insomnia overnight. NG remains in place. Output 2.5L. NPO with TPN. No gas or stool in ostomy appliance. AROBF. O:BP 116/64 Pulse 135 Temp 97.7 F (36.5 C) (Oral) Resp 20 Ht 1.753 m (5' 9.02) Wt 103.4 kg (227 lb 15.3 oz) SpO2 95% BMI 33.65 kg/m Smoking Status Former 12/27 699 - 12/28 0559 In: 3149.9 [I.V.:753.5] Out: 5250 [Urine:2700] PE: General: NAD, lying in bed Pulm: Respirations easy and non labored Abd:soft, appropriately tender, mildly distended. Stoma pink and protruding above skin level with serosanguineous drainage in ostomy appliance, AMY with serosanguineous drainage, midline abdominal dressing D/I. Labs: WBC/Hgb/Hct/Plts: 13.91/7.4/24.9/480 (12/27 2344) Bun/Creat/Cl/CO2/Glucose: 21/0.96/104/31/131 (12/27 2344-12/28 614) Na/K+/Phos/Mg/Ca: 143/3.9/2.0/2.2/-- (12/27 2344) A/P: Conrad Oconnell is a 69 y.o. male with a PMH of long-standing persistent Afib (on metop 50 BID), HFrEF 2/2 rate uncontrolled Afib (LVEF reportedly 40% at OSH echo), COPD, Ulcerative Colitis, HTN, and KIM. He was admitted to an OSH on 12/13/24 with perforated sigmoid diverticulitis s/p underwent exp lap with drainage of abscess, washout and drain placement on 12/15 c/b Afib with RVR requiring an ICU admission. On 12/17, he developed worsening abdominal pain with distention and CT showed a new hypodense rim enhancing collection c/f new abscess & feculent output from AMY drain. He was transferred to [facility] for further management in the setting of worsening intra-abdominal abscesses and is now s/p open total abdominal colectomy with EI, SBR x2, repair of serosal tear, unbilical hernia repair with AMY placement on 12/24. Today's Plan [facility] for vac placement Transfer back to ICU for Afib with RVR - management per SICU team Monitor NG output, fluid replacements as needed Ulcerative colitis: not on biologics, continue home prednisone, holding home budesonide Bowel perforation: 2/2 sigmoid diverticulitis vs Ulcerative colitis S/p surgery (see above) Path pending [facility] NG for decompression, resuscitation if needed for high output DIET NPO with meds Parenteral Nutrition Custom +/- Lipids (Central TPN) ATB: zosyn (12/23-12/28) Wound care: BID WTD dressing change, wound vac placement today WOCN consult for new ostomy AMY drain to bulb suction Protein calorie malnutrition: Lining Layer consulted, appreciate recommendations DIET NPO with meds Parenteral Nutrition Custom +/- Lipids (Central TPN) Continue TPN until ROBF Thiamine for risk of refeeding Long-standing persistent Atrial fibrillation (POA): s/p DCCV on 11/18, on eliquis and tikosyn at home, [id number] = 3. EP consulted, appreciate recommendations - signed off Back in RVR overnight 12/28, received 25 mg of po metorprolol, transferred back to ICU Currently on amiodarone infusion at 0.5mg/min Additional amiodarone bolus with gtt increase to 1 mg/min - continue infusion until taking adequatepo Troponin pending Echo pending Will transition to oral 200 mg daily when feasible Discontinue home Tikosyn resume home metoprolol at 25mg BID at discharge Continue heparin gtt for anticoagulation, will resume home Eliquis closer to discharge. Can undergo 14day MCT and EP follow up after discharge (orders placed) Acute pain: multimodal pain regimen: scheduled tylenol, gabapentin Prn Oxycodone, prn dilaudid for breakthrough Shock: possibly septic 2/2 intra-abdominal abscess r/t colonic perforation with diverticulitis vs cardiogenic given hx of heart failure - resolved Weaned off pressors, HDS, lactate normalized. Most recent TTE with improvement in EF Fluid resuscitation as needed. Acute respiratory failure - resolved. COPD: continue home trelegy ellipta with prn albuterol KIM: nocturnal Cpap MJ: resolved, baseline sCr 0.9, peaked at 1.48, now trending down. Urine output adequate. Monitor. Diabetes, type 2: Hgb A1c 6.1 (12/07), holding Dapagliflozin, will resume closer to discharge. SSI as needed, accuchecks Q6h Acute Blood Loss Anemia vs Precipitous Drop in Hemoglobin Likely Secondary to Fluid Resuscitation: baseline hgb 12.4, minimal EBL, likely related to ongoing resuscitation and fluid shifting. Current hgb stable. Low concern for active bleeding. Daily CBC. Complexity. Hypophosphatemia - Continue to monitor and replete. Obesity, class I Body mass index is 33.65 kg/m . - Follow with PCP for dietary and lifestyle modifications. Wound Documentation Wound Surgical 12/24/24112 Anterior;Midline Abdomen (Active) Date First Assessed/Time First Assessed: 12/24/24112 Primary Wound Type: Surgical Incision Type: midline Incision Closure/Dressing: Gauze;ABD Wound Description: Fascia closed skin open and packed with 1 kerlex roll damp Wound Location Orientat... Any conditions listed below are present on admission unless otherwise specified. .None Other Co-morbidities HFrEF: TTE (12/24/2024) with improvement in EF (40-45%) Holding home furosemide & Aldactone Monitor Fall Risk: Assessed for patient fall risk and discussed safety measures during rounding. Diet: DIET NPO with meds Parenteral Nutrition Custom +/- Lipids (Central TPN) DVT prophylaxis: SQH/Lovenox Abraham: None Code status: Full Central lines: Yes or No CENTRAL LINES: Central Line LDAs Active Central Line Access Devices Name Placement date Placement time Site Days PICC Line - Double Lumen 12/22/24520 basilic vein (medial side of arm), left 12/22/24520 -- 6 Central Line Indications: TPN If patient has multiple lines, please choose the answers of the next two questions to correlate with the lines listed above in descending order Can line/s be removed today? Select all that apply No line in place at this time Dressing/s Clean/Dry/Intact?: Select all that apply No line currently in place Patient seen with colorectal team, plan of care discussed, and they are in agreement. DANIAL Carballo Please be aware there has been a pager change. Please page #[phone] for [place] patients and #[phone] for and BAS. * Ramya Herrmann RN - 12/27/2024 10:32 AM EDT Care Management Progress Note Treatment Updates: Underwent open total abdominal colectomy with end ileostomy 12/24/24. Remains on TPN. He is on nasal cannula during the day and home cpap at night. Discharge updates: PT/OT/Ostomy recs pending. Will continue to follow and start dispo planning when appropriate. Prior to admission, lived w/his and was independent at home. Pamela Jaimes RN Clinical Corporate Compliance Officer Please note that I am a float care process manager and may not cover the same service every day. Please call the main Care Management office at [phone] for up-to-date coverage. * Cristina Mendoza V [facility] - 12/27/2024 9:47 AM EDT Department of Pharmacy TPN Consult Note Patient: Conrad Oconnell Room/Bed: [facility]/ Recommendation: Chemistries, intake/output, glycemic control, and medications reviewed. Electrolytes replacement outside TPN ordered: Calcium gluconate IV 2g given Current maintenance IV fluids: None Advance to final goal rate and formula per RD recs. Increased calcium gluconate to 2g in TPN. Triglycerides 487 today, recheck ordered for Friday 12/29 with AM labs. Pharmacy will continue to follow. TPN Formula: Current Rate: continuous TPN at 80 mL/hr. (volume 1920 mL) Rate for new bag this evening at 2200: continuous TPN at 95 mL/hr. (volume 2280 mL) TPN Goal Volume: 2280 mL Lipid: SMOFlipid given daily See current IHIS order for electrolyte components and administration details. Please refer to most recent dietitian consult note for nutritional assessment and formula including macronutrient recommendations. . Assessment: Lab Values: Albumin Date Value Ref Range Status 12/24/2024 2.6 (L) 3.5 - 5.0 g/dL Final Prealbumin Date Value Ref Range Status 12/27/2024 8 (L) 17 - 34 mg/dL Final BUN Date Value Ref Range Status 12/27/2024 20 7 - 25 mg/dL Final Creatinine Date Value Ref Range Status 12/27/2024 1.05 0.70 - 1.30 mg/dL Final Glucose Date Value Ref Range Status 12/27/2024 121 Nonfastin-179 mg/dL; Fastin-99 mg/dL Final Glucose (POC Device) Date Value Ref Range Status 12/27/2024 115 Nonfasting Glucose: 70-179 mg/dL Final 12/26/2024 119 Nonfasting Glucose: 70-179 mg/dL Final Hemoglobin A1C HPLC Date Value Ref Range Status 12/07/2024 6.1 (H) 4.7 - 5.6 % Final Sodium Date Value Ref Range Status 12/27/2024 141 135 - 145 mmol/L Final 12/26/2024 135 135 - 145 mmol/L Final Chloride Date Value Ref Range Status 12/27/2024 103 98 - 108 mmol/L Final 12/26/2024 100 98 - 108 mmol/L Final Potassium Date Value Ref Range Status 12/27/2024 4.2 3.5 - 5.0 mmol/L Final 12/26/2024 3.8 3.5 - 5.0 mmol/L Final CO2 Date Value Ref Range Status 12/27/2024 31 21 - 31 mmol/L Final 12/26/2024 25 21 - 31 mmol/L Final Phosphorous Date Value Ref Range Status 12/27/2024 3.6 2.2 - 4.6 mg/dL Final 12/26/2024 3.0 2.2 - 4.6 mg/dL Final Calcium Date Value Ref Range Status 12/26/2024 7.7 (L) 8.6 - 10.5 mg/dL Final 12/25/2024 7.6 (L) 8.6 - 10.5 mg/dL Final ICA Date Value Ref Range Status 12/27/2024 4.36 (L) 4.60 - 5.30 mg/dL Final 12/24/2024 4.76 4.60 - 5.30 mg/dL Final Magnesium Date Value Ref Range Status 12/27/2024 2.5 1.6 - 2.6 mg/dL Final 12/26/2024 2.1 1.6 - 2.6 mg/dL Final Triglycerides Date Value Ref Range Status 12/27/2024 487 (H) <150 mg/dL Final Comment: [<150 mg/dL: Desirable] [150-199 mg/dL: Borderline] [200-499 mg/dL: High] [>500 mg/dL: Very High] 12/25/2024 120 <150 mg/dL Final Comment: [<150 mg/dL: Desirable] [150-199 mg/dL: Borderline] [200-499 mg/dL: High] [>500 mg/dL: Very High] Bilirubin Total Date Value Ref Range Status 12/24/2024 0.6 <1.5 mg/dL Final 12/07/2024 1.0 <1.5 mg/dL Final Fluid Management (24 hrs): I/O last 3 completed shifts: In: 3298.7 [P.O.:50; I.V.:1751.5; NG/GT:10; TPN:1233.2; IV Piggyback:253.9] Out: 5315 [Urine:2000; Other:3315] Pharmacy will continue to follow. Name: Cristina Mendoza RPH Phone: [phone] Date/Time: 12/27/2024 9:47 AM * Bianka Bunch, ANTHROPOLOGY AND ARCHEOLOGY INSTRUCTOR-OFFSET LABEL REWINDER - 12/27/2024 9:25 AM EDT Colorectal Surgery Daily Progress Note Attending: Barbara Call MD Length of Stay: 5 Surgery: s/p open total abdominal colectomy with EI, SBR x2, repair of serosal tear, umbilical hernia repair with AMY placement on 12/24 Subjective/Interval events: HDS, off pressors. Remains in sinus rhythm on amiodarone infusion. Afebrile. Feeling better this morning after NG was placed, remains bloated. Feeling more alert. NPO withTPN. NG output 2.7L in 24h. No gas in ostomy appliance, AROBF. Pain well controlled on current regimen. O:BP 119/59 Pulse 86 Temp 98.1 F (36.7 C) (Oral) Resp 20 Ht 1.753 m (5' 9.02) Wt 103.1 kg (227 lb 4.7 oz) SpO2 97% BMI 33.55 kg/m Smoking Status Former 12/26 07 - 12/27 0659 In: 3298.7 [P.O.:50; I.V.:1751.5] Out: 5315 [Urine:2000] PE: General: NAD, lying in bed Pulm: Respirations easy and non labored Abd:soft, appropriately tender, mildly distended. Stoma pink and protruding above skin level with serosanguineous drainage in ostomy appliance, AMY with serosanguineous drainage, midline abdominal dressing D/I. Labs: WBC/Hgb/Hct/Plts: 14.13/7.3/23.5/393 (12/274) Bun/Creat/Cl/CO2/Glucose: 20/1.05/103/31/115 (12/27 141-12/28 619) Na/K+/Phos/Mg/Ca: 141/4.2/3.6/2.5/-- (12/27 0024-12/27 141) A/P: Conrad Oconnell is a 69 y.o. male with a PMH of long-standing persistent Afib (on metop 50 BID), HFrEF 2/2 rate uncontrolled Afib (LVEF reportedly 40% at OSH echo), COPD, Ulcerative Colitis, HTN, and KIM. He was admitted to an OSH on 12/13/24 with perforated sigmoid diverticulitis s/p underwent exp lap with drainage of abscess, washout and drain placement on 12/15 c/b Afib with RVR requiring an ICU admission. On 12/17, he developed worsening abdominal pain with distention and CT showed a new hypodense rim enhancing collection c/f new abscess & feculent output from AMY drain. He was transferred to [facility] for further management in the setting of worsening intra-abdominal abscesses and is now s/p open total abdominal colectomy with EI, SBR x2, repair of serosal tear, unbilical hernia repair with AMY placement on 12/24. Today's Plan [facility] for vac placement Transfer to med-surg Cardiology consult Ulcerative colitis: not on biologics, continue home prednisone, holding home budesonide Bowel perforation: 2/2 sigmoid diverticulitis vs Ulcerative colitis S/p surgery (see above) Path pending Intra-op cultures ARO NG for decompression, resuscitation if needed for high output DIET NPO with meds Parenteral Nutrition Custom +/- Lipids (Central TPN) Parenteral Nutrition Custom +/- Lipids (Central TPN) ATB: zosyn (12/23-12/28) Wound care: BID WTD dressing change, possible wound vac placement today WOCN consult for new ostomy AMY drain to bulb suction Protein calorie malnutrition: Lining Layer consulted, appreciate recommendations DIET NPO with meds Parenteral Nutrition Custom +/- Lipids (Central TPN) Parenteral Nutrition Custom +/- Lipids (Central TPN) Continue TPN until ROBF Thiamine for risk of refeeding Long-standing persistent Atrial fibrillation (POA): s/p DCCV on 11/18, on eliquis and tikosyn at home, [id number] = 3. EP consulted, appreciate recommendations Currently on amiodarone infusion - continue infusion until taking adequate po Will transition to oral 200 mg daily when feasible Discontinue home Tikosyn Holding home metoprolol given recent shock, will resume at 25mg BID at discharge Continue heparin gtt for anticoagulation, will resume home Eliquis closer to discharge. 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 Most recent TTE with improvement in EF Fluid resuscitation as needed. Acute respiratory failure - resolved. COPD: continue home trelegy ellipta with prn albuterol KIM: nocturnal Cpap MJ: resolved, baseline sCr 0.9, peaked at 1.48, now trending down. Urine output adequate. Monitor. Diabetes, type 2: Hgb A1c 6.1 (12/07), holding Dapagliflozin, will resume closer to discharge. SSI as needed, accuchecks Q6h Acute Blood Loss Anemia vs Precipitous Drop in Hemoglobin Likely Secondary to Fluid Resuscitation: baseline hgb 12.4, minimal EBL, likely related to ongoing resuscitation and fluid shifting. Current hgb stable. Low concern for active bleeding. Daily CBC. Complexity. Hypocalcemia - Continue to monitor and replete. Obesity, class I Body mass index is 33.55 kg/m . - Follow with PCP for dietary and lifestyle modifications. Wound Documentation Wound Surgical 12/24/24112 Anterior;Midline Abdomen (Active) Date First Assessed/Time First Assessed: 12/24/24112 Primary Wound Type: Surgical Incision Type: midline Incision Closure/Dressing: Gauze;ABD Wound Description: Fascia closed skin open and packed with 1 kerlex roll damp Wound Location Orientat... Any conditions listed below are present on admission unless otherwise specified. .None Other Co-morbidities HFrEF: TTE (12/24/2024) with improvement in EF (40-45%) Holding home furosemide & Aldactone Monitor Fall Risk: Assessed for patient fall risk and discussed safety measures during rounding. Diet: DIET NPO with meds Parenteral Nutrition Custom +/- Lipids (Central TPN) DVT prophylaxis: SQH/Lovenox Abraham: Code status: Full Central lines: Yes or No CENTRAL LINES: Central Line LDAs Active Central Line Access Devices Name Placement date Placement time Site Days PICC Line - Double Lumen 12/22/24520 basilic vein (medial side of arm), left 12/22/24520 -- 5 Central Line Indications: TPN If patient has multiple lines, please choose the answers of the next two questions to correlate with the lines listed above in descending order Can line/s be removed today? Select all that apply No line in place at this time Dressing/s Clean/Dry/Intact?: Select all that apply No line currently in place Patient seen with colorectal team, plan of care discussed, and they are in agreement. DANIAL Carballo Please be aware there has been a pager change. Please page #[phone] for [facility] patients and #[phone] for and BASH. * Ngoc Lozada OT - 12/27/2024 9:20 AM EDT Acute Occupational Therapy Evaluation Prior Gross Functional Mobility: independent Current AM-PAC score(s): CURRENT AM-PAC Activity Raw Score: 16 Based on the above AM-PAC score(s) and OT clinical judgment, discharge destination recommendation is: Nursing Home Facility Barriers to discharge home: Patient needs assistance with functional mobility, Patient needs assistance with ADLs Mobility equipment available at home: straight cane ADL equipment available at home: Equipment recommendations for discharge: to be determined Equipment issued: Current therapy frequency recommendation(s) in acute: 5 times a week Precautions and Weightbearing Status: OT Existing Precautions/Restrictions: fall, abdominal Patient Safety Communication Prior to Visit: Nursing Subjective: Pt agreeable to session, reports sitting EOB yesterday. Pain: General Pain Documentation (Adult, OB, Peds) Presence of Pain: reports pain/discomfort Pain Location: abdomen DVPRS (Defense and Veterans Pain Rating Scale) DVPRS: Rest: 2- mild pain DVPRS: Activity: 7- severe pain Home Setting Residence: House Lives With: spouse First floor setup: bedroom, walk-in shower Number of stairs to enter home: 4 Stair Railings at Home: entry - with rail Mobility Equipment Available: straight cane Previous Level of Function Gross Functional Mobility: independent Assistive Device: none used Dominant Hand: Right Bed Mobility: independent Transfers: independent Stairs: independent Ambulation: independent with all needs Prior Level of Function Details: Pt reports independent up until recent illness Objective/Observation: Vitals/Vitals Responses to Treatment: VSS O2 Device: nasal cannula Flow (L/min): 2 Vision Screen Currently wearing corrective lenses: Yes Speech Speech: no gross deficits noted ADLs: Eating Assistance: Modified independent Grooming Assistance: Minimal Bathing Assistance: Maximal UE Dressing Assistance: Minimal LE Dressing Assistance: Maximal Toilet Assistance: Maximal (Min A for placement of urinal when seated in chair) Toileting Location: urinal Toileting Deficit: Increased time to complete, Balance, Generalized weakness Toilet Skilled Rationale (Verbal/Tactile/Visual/Demonstration): Facilitate positioning, Technique of activity, Setup Toileting Intervention/Details: placement of urinal in chair Assistance levels as outlined above are based on clinical judgement of anticipated performance unless details of performance noted. Extremity Assessments: RUE Assessment RUE Assessment: Within Functional Limits Right UE Assessment Details: 3+/5 LUE Assessment LUE Assessment: Within Functional Limits Left UE Assessment Details: 3+/5 Balance: Sitting Balance Static Sitting-Level of Assistance: Contact guard Dynamic Sitting-Level of Assistance: Minimum assistance Skilled Rationale: Positioning, Sequencing, Hand placement, Verbal cues, Tactile cues Sitting Balance Skilled Intervention/Details: cues for anterior lean Standing Balance Static Standing-Level of Assistance: Minimum assistance, 2-person assist Dynamic Standing-Level of Assistance: Moderate assistance, 2-person assist Standing-Balance Support: Hand-held assist Skilled Rationale: Positioning, Hand placement, Sequencing, Verbal cues, Tactile cues Neuro: Sensation Overall Sensation: Intact Proprioception Proprioception: intact Gross Coordination Gross Coordination: bilat UE intact Fine Motor Coordination Additional Documentation: (WFL for ADL task performance) Mobility Assessment: Supine to Sit Mobility Treasure Level: Supine->Sit: moderate assist (50% patient effort) Physical Assist: Supine->Sit: 2 person assist Bed Features/Set-up: Supine->Sit: Head of bed elevated Skilled Rationale: Sequencing, Positioning, Hand placement, Tactile cues, Verbal cues Skilled Intervention/Details: Supine->Sit: cues for log roll Transfer Assessment: Sit to Stand Transfer Treasure Level: Sit->Stand: moderate assist (50% patient effort) Physical Assist: Sit->Stand: 2 person assist Assistive Device: Sit->Stand: hand held assist Skilled Rationale: Positioning, Sequencing, Verbal cues, Hand placement, Tactile cues Skilled Intervention/Details: Sit->Stand: cues for full extension to upright Stand to Sit Transfer Treasure Level: Stand->Sit: moderate assist (50% patient effort) Physical Assist: Stand->Sit: 2 person assist Assistive Device: Stand->Sit: armed chair Skilled Rationale: Positioning, Sequencing, Hand placement, Verbal cues Skilled Intervention/Details: Stand->Sit: cues for controlled descent Bed-Chair Transfer Treasure Level: Bed<->Chair: moderate assist (50% patient effort) Physical Assist: Bed<->Chair: 2 person assist Assistive Device: Bed<->Chair: armed chair, hand held assist Skilled Rationale: Positioning, Sequencing, Hand placement, Verbal cues, Arm in arm Outcome Score(s): CURRENT AM-PAC Daily Activity Inpatient Short Form Putting on/Taking Off Lower Body Clothin - A Lot of Assistance Bathin - A Lot of Assistance Toiletin - A Lot of Assistance Putting on/Taking Off Upper Body Clothin - A Little Assistance Groomin - A Little Assistance Eatin - No Assistance CURRENT AM-PAC Activity Raw Score: 16 CURRENT AM-PAC Activity Functional Limitation/Modifier: 53.32% Currently Impaired in Daily Activity- CK Assessment & Plan: Patient was admitted for perforated diverticulitis s/p ex lap, washout, AMY drain placement on 12/15,briefly admitted to SICU for a few days afterwards for close hemodynamic monitoring. Repeat CTAP 12/21 demonstrated decreased 3.1 from 4cm abscess but a new 8.2cm abscess adjacent to AMY tract. In afib w/ RVR, normotensive earlier today. Now s/p exploratory laparotomy, TAC/EI, SBR x2, serosal injury repair, AMY placement 12/24 and seen for therapy evaluation related to assessment of self care tasks andfunctional mobility post op. Exam findings include impairments in: aerobic capacity, balance, endurance, motor function, muscle performance, pain, pain with movement, strength, transfers. These impairments contribute to occupational performance limitations including bathing, dressing, toileting, grooming, ADL transfers, functional mobility. Patient will benefit from skilled occupational therapy to address these impairments, occupational performance limitations, and participation restrictions. Patient's rehab potential is: good. Planned Therapy Interventions (OT Eval): ADL retraining, balance training, functional activity tolerance, strengthening, transfer training Patient Instruction/Education this session: Learners: Patient Education provided: Activity outside of therapy, Balance training, Bed mobility, Functional transfers, Plan of care, Positioning Teaching method: Verbal Education/Instruction Learner response: States/Identifies/Teaches back Plan for next session: standing tolerance, LB dressing tasks and training Acute OT Goals Plan of Care by Ngoc Lozada OT at 12/27/2024 9:20 AM Version 1 of 1 Problem: OT - ADLs Goal: Lower Body Dressing - Patient will complete lower body dressing tasks with standby assistanceusing adaptive equipment/compensatory strategies as needed for improved ability to complete self-care activities. Outcome: Ongoing Goal: Grooming - Patient will complete grooming in standing with contact guard assistance for improved ability to safely complete ADLs. Outcome: Ongoing Goal: Toileting - Patient will complete toileting task with minimal assistance and adaptive equipment as needed for improved ability to safely complete self- care activities. Outcome: Ongoing Problem: OT - Transfers Goal: Transfers Supine -> Sit - Patient will perform supine to/from sit with flat bed & no rail and minimal assistance to improve participation in ADLs. Outcome: Ongoing Goal: Transfers Toilet/ Bedside Commode - Patient will transfer to/from toilet/bedside commode withminimal assistance for improved ability to safely complete ADLs. Outcome: Ongoing Problem: OT - Endurance Goal: Endurance Functional Task Standing - Patient will engage in standing functional task for 6-8 minutes with contact guard assistance to improve activity tolerance necessary for safe ADL completion at recommended discharge destination. Outcome: Ongoing OT treatment consisted of the following to work and progress towards the above goal(s): OT Evaluation and Treatment Time OT Evaluation (High) Time Entry: Evaluating Therapist: Ngoc Lozada OT Additional Details: OT Co-Eval/Treatment Information Co-evaluation/co-treatment performed?: Yes, simultaneous billable skilled care was necessary due tomedical complexity and functional deficits Other discipline: PT Rationale for need to co-eval/treat: postural control Co-treatment goal focus: balance, self-care OT Evaluation Complexity Occupational Profile and Client History: High - extensive history Assessment of Occupational Performance: High (5 or more performance deficits) Clinical Decision/Performance Deficits: High (comprehensive assessments w/multiple treatment options) Time In: 857 Time Out: 919 Total Visit Time: 22 minutes Total Treatment Time (skilled, billable minutes): 22 minutes Patient location at end of session: chair, RN aware Alarms on at end of session: none Needs in reach. Upon discontinuation of Acute Care Occupational Therapy Services or patient discharge from the hospital this note represents the current Occupational Therapy Discharge Summary. * Di Leon PT - 12/27/2024 9:20 AM EDT Acute Physical Therapy Evaluation Prior Gross Functional Mobility: independent Current AM-PAC score(s): CURRENT AM-PAC Mobility Raw Score: 17 Based on the above AM-PAC score(s) and PT clinical judgment, patient is a good candidate for discharge to Nursing Home Facility (pt may progress to home) Barriers to discharge home: Patient needs assistance with functional mobility Mobility equipment available at home: straight cane ADL equipment available at home: Equipment needed for discharge: none Current therapy frequency recommendation in acute: PT Therapy Frequency: 5 times a week Activity Recommendations for outside of rehab session: OOB to chair with 1 person assist Precautions and Weightbearing Status: Existing Precautions/Restrictions: fall Patient Safety Communication Prior to Visit: Nursing Subjective: Pt agreeable and eager for OOB activity. Pain: General Pain Documentation (Adult, OB, Peds) Presence of Pain: reports pain/discomfort Pain Location: generalized DVPRS (Defense and Veterans Pain Rating Scale) DVPRS: Rest: 2- mild pain DVPRS: Activity: 7- severe pain Home Setting Residence: House Lives With: spouse First floor setup: bedroom, walk-in shower Number of stairs to enter home: 4 Stair Railings at Home: entry - with rail Mobility Equipment Available: straight cane Previous Level of Function Gross Functional Mobility: independent Assistive Device: none used Dominant Hand: Right Bed Mobility: independent Transfers: independent Stairs: independent Ambulation: independent with all needs Prior Level of Function Details: Pt reports independent up until recent illness Objective/Observation: Vitals/Vitals Responses to Treatment: stable O2 Device: nasal cannula Flow (L/min): 2 Cognition Overall Cognitive Status: Within Functional Limits Arousal/Alertness: Appropriate responses to stimuli Orientation Level: Oriented X4 Following Commands: Follows one step commands without difficulty Safety Judgment: Good awareness of safety precautions Vision Screen Currently wearing corrective lenses: Yes Speech Speech: no gross deficits noted Extremity Assessments: bilat LE grossly 4+5, limited by pain Mobility Assessment: Rolling/Turning Mobility Treasure Level: Rolling/Turning: minimum assist (75% patient effort) Bed Features/Set-up: Rolling/Turning: Head of bed elevated, Use of bed rail Skilled Rationale: Positioning, Sequencing Skilled Intervention/Details: Rolling/Turning: log roll Supine to Sit Mobility Treasure Level: Supine->Sit: minimum assist (75% patient effort) Bed Features/Set-up: Supine->Sit: Head of bed elevated Skilled Rationale: Positioning, Sequencing, Hand placement Skilled Intervention/Details: Supine->Sit: log roll Balance: Sitting Balance Static Sitting-Level of Assistance: Contact guard Dynamic Sitting-Level of Assistance: Minimum assistance Skilled Rationale: Positioning, Hand placement, Verbal cues Sitting Balance Skilled Intervention/Details: cueing for scooting to EOB, progressing to SBA at EOB Standing Balance Static Standing-Level of Assistance: Minimum assistance Dynamic Standing-Level of Assistance: Minimum assistance Standing-Balance Support: Hand-held assist Skilled Rationale: Positioning, Hand placement, Verbal cues Transfer Assessment: Sit to Stand Transfer Treasure Level: Sit->Stand: minimum assist (75% patient effort) Assistive Device: Sit->Stand: hand held assist Skilled Rationale: Positioning, Hand placement, Verbal cues Stand to Sit Transfer Treasure Level: Stand->Sit: contact guard assist Assistive Device: Stand->Sit: armed chair Skilled Rationale: Positioning, Hand placement, Verbal cues Gait/Functional Mobility: Gait Assessment Treasure Level: Gait: minimum assist (75% patient effort) Assistive Device: Gait: hand held assist Ambulation Distance (Feet): 3 Gait Deviations Identified: decreased zachery, decreased step length, flexed posture, shuffling Gait Skilled Rationale: verbal, increase step length, upright posture Stairs: Outcome Score(s): [facility]RENT [facility] Basic Mobility Inpatient Short Form Turning over in bed: 3 - A Little Assistance Moving from lying on back to sittin - A Little Assistance Moving to and from bed to chair: 3 - A Little Assistance Sitting/standing from chair: 3 - A Little Assistance Walk in hospital room: 3 - A Little Assistance Climbing 3-5 steps with a railin - A Lot of Assistance [facility]RENT [facility] Mobility Raw Score: 17 [facility]RENT [facility] Mobility Functional Limitation: 50.57% Impaired in Basic Mobility Interventions: Assessment & Plan: Patient was admitted for ICD-10-CM 1. Atrial fibrillation, unspecified type I48.91 2. 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 Exam findings include impairments in: Strength, Balance, Pain, Transfers, Gait/Locomotion, Posture,Cognition/Arousal/Attention, Aerobic capacity/endurance. These impairments contribute to functionallimitations including Ambulation/locomotion pain, Decreased ambulation distance/endurance, Decreased functional mobility. Current clinical presentation is Unstable - unstable and unpredictable characteristics - safety risk (High). Patient history factors impacting Plan Of Care include Past Medical History: Diagnosis Date Congestive heart failure COPD (chronic obstructive pulmonary disease) Essential hypertension, benign Longstanding persistent atrial fibrillation KIM (obstructive sleep apnea) Ulcerative colitis . Patient will benefit from skilled physical therapy to address these impairments, functional limitations, and participation restrictions and has good rehab potential to achieve therapy goals. Planned Therapy Interventions: balance training, bed mobility training, endurance, functional activity tolerance, gait training, neuromuscular re- education, postural re-education, strengthening, transfer training Patient Instruction/Education this session: Learners: Patient Education provided: Functional transfers Teaching method: Verbal Education/Instruction Learner response: States/Identifies/Teaches back Plan for next session: progress ambulation distance Acute PT Goals Plan of Care by Di Leon PT at 12/27/2024 9:20 AM Version 1 of 1 Problem: PT - General Goals Goal: Supine <-> Sit Transfers - Patient will perform supine to/from sit transfers with modified independence and with use of hospital bed features in order to improve functional mobility and safety. Outcome: Ongoing Goal: Sit <-> Stand Transfers - Patient will perform sit to/from stand transfers with modified independence and least restrictive device in order to improve functional mobility and safety. Outcome: Ongoing Goal: Ambulation - Patient will ambulate 150 feet with modified independence and least restrictive device to improve ability to safely navigate home and community. Outcome: Ongoing Goal: Stairs - Patient will ascend/descend 3 stairs with modified independence, least restrictive device, and single railing(s) to improve ability to safely navigate home and community. Outcome: Ongoing PT treatment consisted of the following to progress towards the above goal(s): PT Evaluation and Treatment Time PT Evaluation (High) Time Entry: Evaluating Therapist: Di Leon PT Additional Details: PT Co-Eval/Treatment Information Co-evaluation/co-treatment performed?: Yes, simultaneous billable skilled care was necessary due tomedical complexity and functional deficits Other discipline: OT Rationale for need to co-eval/treat: postural control Co-treatment goal focus: balance, transfer, endurance Evaluation Complexity Components History: High (3 personal factors and/or comorbidities) Body Systems Review: High (Addressing a total of 4 or more elements) Clinical Presentation: Unstable - unstable and unpredictable characteristics - safety risk (High) Clinical Decision Making Complexity: High Time In: 857 Time Out: 919 Total Visit Time: 22 minutes Total Treatment Time (skilled, billable minutes): 22 minutes Patient location at end of session: chair, RN aware Alarms on at end of session: none Needs in reach. Upon discontinuation of Acute Care Physical Therapy Services or patient discharge from the hospitalthis note represents the current Physical Therapy Discharge Summary. * Kary Bella - 12/27/2024 7:14 AM EDTSdevonte: Medical Student SICU note SICU Daily Progress Note CURRENT ADMISSION/HOSPITALIZATION SUMMARY: SICU Attending Today: Marily Hill MD, MPH SICU Team: CARDOSO: 1st call [phone] [facility] Code status: Full Code Hospital days: LOS: 5 days [facility] [place]: Conrad Oconnell is a 69 y.o. with a history of HTN/HLD, CAD c/b HFrEF (EF 35%), persistent afib/aflutter s/p DCCV (12/08/24) on tikosyn and eliquis, KIM, COPD, UC (on budesonide and pred 10mg daily) whopresents with perforated diverticulitis s/p ex lap, washout, AMY drain placement on 12/15, briefly admitted to SICU for a few days afterwards for close hemodynamic monitoring. Repeat CTAP 12/21 demonstrated decreased 3.1 from 4cm abscess but a new 8.2cm abscess adjacent to AMY tract. In afib w/ RVR, normotensive earlier today. Now s/p exploratory laparotomy, TAC/EI, SBR x2, serosal injury repair, AMY placement 12/24 She/he was admitted to the [facility] on 12/24/24 from OR d/t pressor requirements SICU ADMISSION: Conrad Oconnell was admitted to the SICU on 12/24/25 due to pressor requirements. His admission was complicated by post-operative ileus. 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 Cardiogenic Septic likely 2/2 intraabdominal abscesses related to colonic perforation with diverticulitis v. UC, now resolving Weaned off levo, hemodynamically stable Continue to monitor Gentle resuscitation if needed given low EF AFIB (chronic s/p DCCV 11/18, on eliquis and tikosyn) [id number] Score: 3 Most recent ECG: Atrial fibrillation EP consulted Received amio 150mg in OR, addl amio 150mg ordered postop Outpatient follow up for AF ablation Awaiting formal recs but likely to continue amio gtt for now Hold home entresto, tikosyn, SGLT Hold home metoprolol in the setting of requiring pressors Continue hep gtt HFrEF Most recent TTE (12/24/2024)- improved EF compared to previous scan (40-45%) Hold home furosemide, aldactone Limit IVF if possible RESPIRATORY: Acute hypoxia requiring 2 L NC Most recent ABG: pH/PCO2/PO2/HCO3: 7.36/35/85/20 (12/24 06) Per nursing, pt desats when off of NC Consider CXR tomorrow AM if NC requirement persists COPD (POA) Continue home trelegy ellipta Continue home PRN albuterol KIM (POA) On nocturnal CPAP GI: Risk for protein calorie malnutrition Diet:DIET NPO with meds Parenteral Nutrition Clinimix Prealbumin: Pending Nutrition plan: TPN consult No tube feeds for now given lack of bowel function Post-operative Ileus Holding TF NGT for gastric decompression Abdominal XR showed NGT crossing midline (post-pyloric) Repositioned NGT (12/27) Last Bowel Movement: 12/23/24 Bowel regimen: Pending ROBF Ulcerative Colitis Continue home prednisone Hold home budesonide RENAL/: MJ, improved: Baseline creatinine: 0.9, current Cr 1.05 UOP at 0.8 cc/kg/hr; continue to monitor LABS Recent Labs 12/25/24 0041 12/26/24 0008 12/27/24 0024 12/27/24 0142 SODIUM 136 135 -- 141 POTASSIUM 3.7 3.8 -- 4.2 CHLORIDE 103 100 -- 103 CO2 24 25 -- 31 BUN 18 21 -- 20 CREATSERUM 1.43* 1.48* -- 1.05 CALCIUM 7.6* 7.7* -- -- MAGNESIUM 2.2 2.1 2.5 -- PHOSPHORUS 4.4 3.0 3.6 -- ICA -- -- 4.36* -- ENDO: Risk for Stress Hyperglycemia: SSI Pre-diabetes - Hgba1c 6.1 (12/07/24) Hold home dapagliflozin LABS Recent Labs 12/26/24 1758 12/27/24 0142 12/27/24 0620 12/27/24 1044 GLUCOSE 119 121 115 112 HEME: Acute blood loss anemia superimposed on anemia of chronic disease Baseline Hgb: 12.4 (12/09) Currently 7.3; no concern for active bleeding Will monitor for now Transfuse for HgB<7 LABS Recent Labs 12/25/246 12/26/24 0008 12/27/24 0024 12/27/24 0142 HGB -- 8.8* 7.3* -- HCT -- 29.1* 23.5* -- PLATELET -- 412* 393* -- INR 1.2* -- -- 1.2* ID: Septic Shock, resolved Secondary to intraabdominal abscesses related to colonic perforation WBC downtrending 14.13 Continue zosyn, now with source control, stop date of 12/28 LABS Recent Labs 12/25/24 0041 12/26/24 0008 12/27/24 0024 WBC 20.88* 20.39* 14.13* Temp (24hrs), Av.9 F (36.1 C), Min:96.4 F (35.8 C), Max:98.1 F (36.7 C) Antibiotic Time Out Completed [x] Yes [] No [] N/a Cultures: None Antibiotics: Zosyn (12/22-12/28) CHRONIC MEDICAL PROBLEMS Complexity. Hypocalcemia - Continue to monitor and replete. Obesity, class I Body mass index is 33.55 kg/m . - Follow with PCP for dietary and lifestyle modifications. Wound Documentation Wound Surgical 12/24/24 0113 Anterior;Midline Abdomen (Active) Date First Assessed/Time First Assessed: 12/24/24 011 Primary Wound Type: Surgical Incision Type: midline Incision Closure/Dressing: Gauze;ABD Wound Description: Fascia closed skin open and packed with 1 kerlex roll damp Wound Location Orientat... Any conditions listed below are present on admission unless otherwise specified. COPD Without Exacerbation Anemia of Chronic Disease ICU CENTRAL LINES & CHECKLIST ICU Checklist: Stress Ulcer Prophylaxis: n/a DVT Prophylaxis: Heparin gtt for A-Fib Type/Screen Current: No, order pended 12/27 Fall Risk: Assessed for patient fall risk and discussed safety measures during rounding. Labs to be discontinued 12/27/2024 : None Advanced Care Planning: Full code A-G Bundle: [x] Assess pain Presence of Pain: denies pain/discomfort Presence of Pain Score (Auto-calculated): 0 [] Both SAT & SBT B = SAT/SBT Eligibility, Safety Screen & Outcomes (Document Daily in ICU) Is/Was patient receiving continuous sedative/opioid IV medications today?: No - Only receiving medsfor analgesia (Not for sedation) [x] Choice of analgesia/ sedation See neuro [x] Delirium Overall CAM-ICU: Negative [x] Early mobility PT/OT consulted?: Yes CURRENT AM-PAC Mobility Raw Score: 10 CURRENT AM-PAC Mobility Functional Limitation: 76.75% Impaired in Basic Mobility [x] Family Engagement Primary Emergency Contact: Bridgette Oconnell Last updated: 12/24, primary team [x] Get lines out [place]: no Abraham: none Rectal tube: None Enteral access: NGT (placed 12/26) Drains: AMY Drain (placed postop) CENTRAL LINES: Central Line LDAs Active Central Line Access Devices Name Placement date Placement time Site Days PICC Line - Double Lumen 12/22/24 05 basilic vein (medial side of arm), left 12/22/24 0521 -- 5 Central Line Daily Indication(s) and Daily Review of Necessity 12/27/2024: If multiple lines, please use order shown above as reference when selecting line to be removed Invasive hemodynamic monitoring and Medication requiring central venous administration Central Line De-escalation Plan: TPN PHYSICAL EXAM Physical Exam Constitutional: Appearance: Normal appearance. HENT: Head: Normocephalic and atraumatic. Eyes: Pupils: Pupils are equal, round, and reactive to light. Cardiovascular: Rate and Rhythm: Normal rate and regular rhythm. Comments: Intermittent Afib Pulmonary: Effort: Pulmonary effort is normal. Breath sounds: Normal breath sounds. Abdominal: General: Abdomen is flat. There is no distension. Palpations: Abdomen is soft. Comments: Midline dressing without strikethrough RUQ ileostomy pink at level of skin RLQ AMY SS Musculoskeletal: General: Normal range of motion. Skin: General: Skin is warm and dry. Capillary Refill: Capillary refill takes less than 2 seconds. Neurological: Mental Status: He is alert and oriented to person, place, and time. Psychiatric: Mood and Affect: Mood normal. Behavior: Behavior normal. Heber Oconnell has a high probability of clinically significant imminent life- threatening deteriorationwhich could result in multi-organ failure. I have personally spent 35 minutes exclusive of procedures providing critical care services, including obtaining history, reviewing clinical history, active mediations, outreach consultant recommendations, interpreting vital signs, laboratory and microbiology results, and radiographic studies, developing and discussing management plan with other providers, as well as frequent evaluations to assess response to treatment. Kary Bella [facility] Department of Surgery Division of Critical Care, Trauma, and Burn Phone number: [phone] [facility] and [facility] Qgenda Link Cosigned by Marily Hill MD, MPH at 12/28/2024 8:39 AM EDT Associated attestation - Marily Hill MD, MPH - 12/28/2024 8:39 AM EDT Images from the original note were not included. I have seen and examined this patient with the medical student on 12/27/2024. I personally obtained ngo and critical portions of the history and physical exam. I reviewed the medical student's documentation and discussed the patient with them. I agree with the medical decision making as documented below. I personally read and reviewed any images obtained in the last 24 hours. In brief, this is a 69 yo M with h/o HTN, HPL, CAD, HFrEF (EF 40-45%), obesity (BMI 33.6), AF s/p DCCV on tikosyn and eliquis, KIM, COPD, and UC on prednisone 10 mg daily who presented with perforated diverticulitis, s/p washout and drain placement 12/15, c/b c/f uncontrolled perforation/leak, s/p open TAC/end ileostomy, SBR x 2, and UHR 12/24. 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 -- Delirium precautions for metabolic encephalopathy Pulm: -- On 2L NC - wean O2 as able in s/o AHRF and COPD, aggressive pulmonary toilet, home breztri and ipratropium -- Nocturnal CPAP for h/o KIM CV: -- Amio and hep gtt for AF; holding home eliquis, dofetilide, BB; EP consulted -- Holding home sacubitril-valsartan for h/o HTN and CAD -- Holding home lasix and spirinolactone for h/o HFrEF GI: -- Perforated diverticulitis, s/p washout and drain placement 12/15, c/b c/f uncontrolled perforation/leak, s/p open TAC/end ileostomy, SBR x 2, and UHR /6 - c/b ileus, AROBF in ostomy, NGT OP 3.3L, AXR with adequately re-positioned NGT -- Home prednisone for h/o UC, holding budesonide -- TPN for nutritional support in s/o severe protein calorie malnutrition (prealbumin 8) and postoperative ileus : -- Urinating spontaneously, UOP adequate, Cr normalized -- Hypocalcemia (iCa 4.3) repletion H: -- VTE chemoppx -- Hgb 7.3 (8.8, 10.4) - CTM acute blood loss anemia E: -- SSI for stress hyperglycemia ID: -- AF, WBC 14.1 (20.3) on prednisone, zosyn (-12/28) for empiric enteric coverage Conrad Oconnell has a high probability of clinically significant imminent life- threatening deterioration which could result in multi-organ failure. I have personally spent 35 minutes (CPT code(s) 08273) exclusive of procedures and teaching providing critical care services, including obtaining history, reviewing clinical history, active mediations, outreach consultant recommendations, interpreting vital signs, laboratory and microbiology results, and radiographic studies, developing and discussing management plan with other providers, as well as frequent evaluations to assess response to treatment. Marily Hill MD MPH invoice control clerk Division of Trauma, Critical Care, Burn * Amita Richards RCP - 12/27/2024 4:59 AM EDT Patient rested comfortably on Home CPAP on Homes settings, all night. Signed: Amita Richards RCP 12/27/2024 5:00 AM * Tori Steen MD - 12/26/2024 12:09 PM EDT SICU Daily Progress Note CURRENT ADMISSION/HOSPITALIZATION SUMMARY: SICU Attending Today: Aaron Su MD SICU Team: CARDOSO: 1st call [phone] SICU and Enio DICKEY QGenda Link Code status: Full Code Hospital days: LOS: 4 days [facility] [place]: Conrad Oconnell is a 69 y.o. with a history of HTN/HLD, CAD c/b HFrEF (EF 35%), persistent afib/aflutter s/p DCCV (12/08/24) on tikosyn and eliquis, KIM, COPD, UC (on budesonide and pred 10mg daily) whopresents with perforated diverticulitis s/p ex lap, washout, AMY drain placement on 12/15, briefly admitted to SICU for a few days afterwards for close hemodynamic monitoring. Repeat CTAP 12/21 demonstrated decreased 3.1 from 4cm abscess but a new 8.2cm abscess adjacent to AMY tract. In afib w/ RVR, normotensive earlier today. Now s/p exploratory laparotomy, TAC/EI, SBR x2, serosal injury repair, AMY placement 12/24 She/he was admitted to the [facility] on 12/24/24 from OR d/t pressor requirements SICU ADMISSION: Conrad Oconnell was admitted to the SICU on 12/24/25 due to pressor requirements LAST 24 HOURS Nausea and belching reported this morning, NG inserted with an initial 2.5L output Two 250cc LR bolus for mild hypotension SUMMARY OF PLAN FOR 12/26/2024 Afib- HR currently WNL, EP consulted; will continue amio gtt for now and hold home meds NGT to LCS- monitor output AROBF Continue zosyn ACTIVE CRITICAL CARE PROBLEMS SURGICAL: S/p exploratory laparotomy, washout, AMY drain placement on 12/15 S/p exploratory laparotomy, TAC/EI, SBR x2, serosal injury repair, AMY placement 12/24 1 Day Post-Op AMY to bulb suction, empty q8hr, 5ml/since OR Continue zosyn 4d EOT 12/28 NEURO: Acute post-operative pain Scheduled Tylenol 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 Cardiogenic Septic likely 2/2 intraabdominal abscesses related to colonic perforation with diverticulitis v. UC, now resolving Weaned off levo, hemodynamically stable Continue to monitor Gentle resuscitation if needed given low EF Small episode of hypotension, responsive to fluids. Continue to monitor AFIB (chronic s/p DCCV 11/18, on eliquis and tikosyn) [id number] Score: 3 Most recent ECG: Atrial fibrillation EP consulted Received amio 150mg in OR, addl amio 150mg ordered postop Outpatient follow up for AF ablation Awaiting formal recs but likely to continue amio gtt for now Hold home entresto, tikosyn, SGLT Hold home metoprolol in the setting of requiring pressors Continue hep gtt HFrEF Most recent TTE (12/24/2024)- improved EF compared to previous scan (40-45%) Hold home furosemide, aldactone Limit IVF if possible RESPIRATORY: No acute concerns Most recent ABG: pH/PCO2/PO2/HCO3: 7.36/35/85/20 (12/24 613) COPD (POA) Continue home trelegy ellipta Continue home PRN albuterol KIM (POA) On nocturnal CPAP GI: Risk for protein calorie malnutrition Diet:DIET NPO with meds Parenteral Nutrition Clinimix Prealbumin: Pending Nutrition plan: TPN consult No tube feeds for now given lack of bowel function Last Bowel Movement: 12/23/24 Bowel regimen: Pending ROBF Ulcerative Colitis Continue home prednisone Hold home budesonide RENAL/: MJ: Baseline creatinine: 0.9, current Cr 11.48 Marginal UOP at 50 cc/hr; continue to monitor LABS Recent Labs 12/24/24 0229 12/24/24 0405 12/24/24 0405 12/25/24 0041 12/26/24 0008 SODIUM 139 138 < > 136 135 POTASSIUM 4.1 4.2 < > 3.7 3.8 CHLORIDE -- 106 < > 103 100 CO2 -- 22 < > 24 25 BUN -- 13 < > 18 21 CREATSERUM -- 1.05 < > 1.43* 1.48* CALCIUM -- -- -- 7.6* 7.7* MAGNESIUM -- 2.8* < > 2.2 2.1 PHOSPHORUS -- 5.3* < > 4.4 3.0 ICA 4.48* 4.76 -- -- -- < > = values in this interval not displayed. ENDO: Risk for Stress Hyperglycemia: SSI Pre-diabetes - Hgba1c 6.1 (12/07/24) Hold home dapagliflozin LABS Recent Labs 12/25/24 2320 12/26/24 0008 12/26/24 0607 12/26/24 1138 GLUCOSE 99 130 149 140 HEME: Acute blood loss anemia superimposed on anemia of chronic disease Baseline Hgb: 12.4 (12/09) Currently 8.8; no concern for active bleeding Will monitor for now LABS Recent Labs 12/25/24 0041 12/25/246 12/26/24 0008 HGB 10.4* -- 8.8* HCT 34.1* -- 29.1* PLATELET 476* -- 412* INR 1.4* 1.2* -- ID: Septic Shock, resolving Secondary to intraabdominal abscesses related to colonic perforation WBC downtrending 20.39 Continue zosyn, now with source control, stop date of 12/28 LABS Recent Labs 12/24/24 0405 12/25/24 0041 12/26/24 0008 WBC 27.10* 20.88* 20.39* Temp (24hrs), Av.2 F (36.8 C), Min:97.4 F (36.3 C), Max:99 F (37.2 C) Antibiotic Time Out Completed [x] Yes [] No [] N/a Cultures: None Antibiotics: Zosyn (12/22-12/28) CHRONIC MEDICAL PROBLEMS Complexity. Obesity, class I Body mass index is 33.71 kg/m . - Follow with PCP for dietary and lifestyle modifications. Wound Documentation Wound Surgical 12/24/24 011 Anterior;Midline Abdomen (Active) Date First Assessed/Time First Assessed: 12/24/24 011 Primary Wound Type: Surgical Incision Type: midline Incision Closure/Dressing: Gauze;ABD Wound Description: Fascia closed skin open and packed with 1 kerlex roll damp Wound Location Orientat... Any conditions listed below are present on admission unless otherwise specified. COPD Without Exacerbation Anemia of Chronic Disease ICU CENTRAL LINES & CHECKLIST ICU Checklist: Stress Ulcer Prophylaxis: DVT Prophylaxis: Heparin gtt for A-Fib Type/Screen Current: Yes Fall Risk: Assessed for patient fall risk and discussed safety measures during rounding. Labs to be discontinued 12/26/2024 : None Advanced Care Planning: Full code A-G Bundle: [x] Assess pain Presence of Pain: reports pain/discomfort Presence of Pain Score (Auto-calculated): 0 [] Both SAT & SBT B = SAT/SBT Eligibility, Safety Screen & Outcomes (Document Daily in ICU) Is/Was patient receiving continuous sedative/opioid IV medications today?: No - Only receiving medsfor analgesia (Not for sedation) [x] Choice of analgesia/ sedation See neuro [x] Delirium Overall CAM-ICU: Negative [x] Early mobility PT/OT consulted?: Yes CURRENT AM-PAC Mobility Raw Score: 8 CURRENT AM-PAC Mobility Functional Limitation: 86.62% Impaired in Basic Mobility [x] Family Engagement Primary Emergency Contact: Bridgette Oconnell Last updated: 12/24, primary team [x] Get lines out [place]: inserted 12/24, (indication:hemodynamic monitoring) Abraham: inserted 12/22, (indication:postop from colorectal surgery) Rectal tube: None Enteral access: None CENTRAL LINES: Central Line LDAs Active Central Line Access Devices Name Placement date Placement time Site Days PICC Line - Double Lumen 12/22/24 0521 basilic vein (medial side of arm), left 12/22/24 0521 -- 4 Central Line Daily Indication(s) and Daily Review of Necessity 12/26/2024: If multiple lines, please use order shown above as reference when selecting line to be removed Invasive hemodynamic monitoring and Medication requiring central venous administration Central Line De-escalation Plan: TPN PHYSICAL EXAM Physical Exam Constitutional: Appearance: Normal appearance. HENT: Head: Normocephalic and atraumatic. Eyes: Pupils: Pupils are equal, round, and reactive to light. Cardiovascular: Rate and Rhythm: Rhythm irregular. Comments: Intermittent Afib Pulmonary: Effort: Pulmonary effort is normal. Breath sounds: Normal breath sounds. Abdominal: General: Abdomen is flat. There is distension. Palpations: Abdomen is soft. Comments: Midline dressing without strikethrough RUQ ileostomy pink at level of skin RLQ AMY SS Musculoskeletal: General: Normal range of motion. Skin: General: Skin is warm and dry. Capillary Refill: Capillary refill takes less than 2 seconds. Neurological: Mental Status: He is alert and oriented to person, place, and time. Psychiatric: Mood and Affect: Mood normal. Behavior: Behavior normal. Heber Oconnell has a high probability of clinically significant imminent life- threatening deteriorationwhich could result in multi-organ failure. I have personally spent 35 minutes exclusive of procedures providing critical care services, including obtaining history, reviewing clinical history, active mediations, outreach consultant recommendations, interpreting vital signs, laboratory and microbiology results, and radiographic studies, developing and discussing management plan with other providers, as well as frequent evaluations to assess response to treatment. Tori Steen MD [facility] Department of Surgery Division of Critical Care, Trauma, and Burn Phone number: [phone] [facility] and Enio [facility] Qgenda Link Cosigned by Aaron Su MD at 12/26/2024 3:58 PM EDT Associated attestation - Aaron Su MD - 12/26/2024 3:58 PM EDT Surgical Critical Care Attending Attestation I have personally seen and examined Conrad Oconnell on 12/26/2024. I agree with the resident physician's documentation and have discussed my assessment and plan with the resident physician: Nausea belching overnight NGT Assessment/Plan Neuro GCS 15 Multimodal pain control, dPCA CV A fib, RVR-hx of afib-amio drip HR now 90-100s, much improved throughout the day Discuss w EP re: resuming his home meds (particularly his dofetilide), will continue amio drip while ileus per EP Septic shock resolved, came off pressor overnight EF 40-45% on repeat echo Pulm Extubated post op NC, wean as able Hx COPD- home inhalers Hx KIM-home CPAP HS GI Hx UC, perforated diverticulitis s/p Ex lap TAC/EI / TPN started at OSH, will resume here Holding tube feeds Ileostomy looks ok-no real output, no gas Now w belching and nausea, CRS wants an NGT for presumed ileus HX UC-continue prednisone 10 Renal Cr 1.48, MJ Abraham DC today, trend uop LR@20 for now, also getting his TPN No indication for HD Endo ISS Heme Hgb 8.8 Plt 412 Heparin drip ID Perforated diverticulitis s/p ex lap, TAC Zosyn /- Wbc 20, downtrending Disp ICU, a fib, rvr, improving, no longer hypotensive, will discuss dowgrade Conrad Oconnell has a high probability of clinically significant imminent life- threatening deterioration which could result in multi-organ failure. I have personally spent 35 minutes (CPT code(s) 44440) exclusive of procedures and teaching providing critical care services, including obtaining history, reviewing clinical history, active mediations, outreach consultant recommendations, interpreting vital signs, laboratory and microbiology results, and radiographic studies, developing and discussing management plan with other providers, as well as frequent evaluations to assess response to treatment. Aaron Su MD Division of Trauma, Critical Care, Burn 12/26/2024 * Jordana Magdaleno MD - 12/26/2024 10:48 AM EDT CRS 69M hx afib (eliquis), HF (EF 35%), COPD, UC, htn. OSH perf sigmoid divertic s/p lap washout/drainage 12/15 -> worse, afib RVR 12/24 open TAC EI + SBRx2 S: pain controlled. Nauseated, no emesis but feels like he might need to. No gas in bag. No pressors, on heparin gtt O: Temp: [97.4 F (36.3 C)-99 F (37.2 C)] 98 F (36.7 C) Pulse (Heart Rate): [101-111] 104 Resp Rate: [12-23] 15 BP: (89-143)/(50-65) 111/55 Arterial Line (1) BP: (100)/(57) 100/57 O2 Sat (%): [89 %-99 %] 99 % Weight: [103.6 kg (228 lb 6.3 oz)] 103.6 kg (228 lb 6.3 oz) I/O last 3 completed shifts: In: 3513.3 [P.O.:50; I.V.:2178.7; TPN:1020.4; IV Piggyback:264.2] Out: 1342 [Urine:1332; Other:10] WBC/Hgb/Hct/Plts: 20.39/8.8/29.1/412 (12/26 0008) Bun/Creat/Cl/CO2/Glucose: 21/1.48/100/25/149 (12/26 0008-12/26 606) PE: General: NAD, lying in bed HEENT: CPAP on Pulm: Respirations easy and non labored Abd: soft, distended, stoma pink, bowel sweat only in bag. Midlline laparotomy incision base pink/healthy A: Conrad Oconnell is a 69 y.o. male with history of NICM, HFrEF 35%, COPD no home oxygen, KIM on CPAP, HTN, A fib s/p DCCV 12/08 on eliquis, and ulcerative colitis. Pt presented to OSH on 12/13 with abdominal pain where imaging was c/f acute diverticulitis with adjacent abscess. Pt underwent ex lap, abscess drainage, washout, and drain placement on 12/15. Interval CT on 12/21 obtained for continued abdpain was c/f new abscess and decreased size of prior abscess from 4 to 3.1cm. [facility]. He underwent open TAC, SBR x 2, small bowel serosal injury repair x 1, primary repair of umbilical hernia, EI formation on 12/24 and was admitted to SICU post operatively for hemodynamic monitoring/pressor requirements. P: Today's plan -NGT, AROBF -TPN, heparin gtt -WTD BID to midline incision -nonurgent wound vac consult Colon perforation Ulcerative colitis (POA): current management balsalazide. Previously: budesonide. Last prednisone: 11/22. Intra abdominal abscess: likely 2/2 colonic perforation, perforation etiology unclear- diverticulitis vs UC. Clinical exam reassuring, will proceed to OR within 12 hours, pending Cardiology input. Last colonoscopy in chart from 2022 with tubular adenomas noted from a localized area of erythematous mucosa and 3- 15mm sessile/semi-pedunculated sigmoid polyps x4 with a 7-10mm cecal polyp. Pt reports repeat cscope 07/2024 he was told noted severe colitis for which he completed a prednisone course. Complexity. Obesity, class I Body mass index is 33.71 kg/m . - Follow with PCP for dietary and lifestyle modifications. Wound Documentation Wound Surgical 12/24/24 0113 Anterior;Midline Abdomen (Active) Date First Assessed/Time First Assessed: 12/24/24 011 Primary Wound Type: Surgical Incision Type: midline Incision Closure/Dressing: Gauze;ABD Wound Description: Fascia closed skin open and packed with 1 kerlex roll damp Wound Location Orientat... Any conditions listed below are present on admission unless otherwise specified. . CENTRAL LINES: Central Line LDAs Active Central Line Access Devices Name Placement date Placement time Site Days PICC Line - Double Lumen 12/22/24520 basilic vein (medial side of arm), left 12/22/24520 -- 4 Central Line Indications: No line currently in place If patient has multiple lines, please choose the answers of the next two questions to correlate with the lines listed above in descending order Can line/s be removed today? Select all that apply No line in place at this time Dressing/s Clean/Dry/Intact?: Select all that apply No line currently in place Patient seen with colorectal team, plan of care discussed, and they are in agreement. Jordana Magdaleno MD For patients located in or [facility] please page [phone] * Aaron Su MD - 12/26/2024 10:38 AM EDT Surgical Critical Care Attending Attestation I have personally seen and examined Conrad Oconnell on 12/26/2024. I agree with the resident physician's documentation and have discussed my assessment and plan with the resident physician: Nausea belching overnight NGT Assessment/Plan Neuro GCS 15 Multimodal pain control, dPCA CV A fib, RVR-hx of afib-amio drip HR now 90-100s, much improved throughout the day Discuss w EP re: resuming his home meds (particularly his dofetilide), will continue amio drip while ileus per EP Septic shock resolved, came off pressor overnight EF 40-45% on repeat echo Pulm Extubated post op NC, wean as able Hx COPD- home inhalers Hx KIM-home CPAP HS GI Hx UC, perforated diverticulitis s/p Ex lap TAC/EI / TPN started at OSH, will resume here Holding tube feeds Ileostomy looks ok-no real output, no gas Now w belching and nausea, CRS wants an NGT for presumed ileus HX UC-continue prednisone 10 Renal Cr 1.48, MJ RAGHU Abraham today, trend uop LR@20 for now, also getting his TPN No indication for HD Endo ISS Heme Hgb 8.8 Plt 412 Heparin drip ID Perforated diverticulitis s/p ex lap, TAC Zosyn /- Wbc 20, downtrending Disp ICU, a fib, rvr, improving, no longer hypotensive, will discuss dowgrade Conrad Oconnell has a high probability of clinically significant imminent life- threatening deterioration which could result in multi-organ failure. I have personally spent 35 minutes (CPT code(s) 18651) exclusive of procedures and teaching providing critical care services, including obtaining history, reviewing clinical history, active mediations, outreach consultant recommendations, interpreting vital signs, laboratory and microbiology results, and radiographic studies, developing and discussing management plan with other providers, as well as frequent evaluations to assess response to treatment. Aaron Su MD Division of Trauma, Critical Care, Burn 12/26/2024 * Cristina Mendoza V, [facility] - 12/26/2024 9:33 AM EDT Department of Pharmacy TPN Consult Note Patient: Conrad Oconnell Room/Bed: [facility] Recommendation: Chemistries, intake/output, glycemic control, and medications reviewed. Electrolytes replacement outside TPN ordered: Potassium chloride 40meq already given Current maintenance IV fluids: LR at 60 ml/hr. Adjusted to LR at 20 mL/hr when the next TPN bag starts this evening. Advance TPN to Day [address] per RD recs (see below). Ordered daily iCa and discontinued dailycalcium lab order. Pharmacy will continue to follow. TPN Formula: Current Rate: continuous TPN at 40 mL/hr. (volume 960 mL) Rate for new bag this evening at 2200: continuous TPN at 80 mL/hr. (volume 1920 mL) TPN Goal Volume: 2280 mL Lipid: SMOFlipid given daily Base formula: Day 2 Day 3 Goal Dextrose 70% 100 g 200 g 275 g Amino Acid (Travasol 10%) 55 g 100 g 130 g Fish Oil Fat Emulsion (SMOFLIPID) 20% 25 g 55 g 65 g Daily Total Volume 960 mL 1920 mL 95 mL Infusion Rate 40 mL/hr 80 mL/hr 2280 mL/hr See current IHIS order for electrolyte components and administration details. Please refer to most recent dietitian consult note for nutritional assessment and formula including macronutrient recommendations. . Assessment: Lab Values: Albumin Date Value Ref Range Status 12/24/2024 2.6 (L) 3.5 - 5.0 g/dL Final Prealbumin Date Value Ref Range Status 12/25/2024 8 (L) 17 - 34 mg/dL Final BUN Date Value Ref Range Status 12/26/2024 21 7 - 25 mg/dL Final Creatinine Date Value Ref Range Status 12/26/2024 1.48 (H) 0.70 - 1.30 mg/dL Final Glucose Date Value Ref Range Status 12/26/2024 130 Nonfastin-179 mg/dL; Fastin-99 mg/dL Final Glucose (POC Device) Date Value Ref Range Status 12/26/2024 149 Nonfasting Glucose: 70-179 mg/dL Final 12/25/2024 99 Nonfasting Glucose: 70-179 mg/dL Final Hemoglobin A1C HPLC Date Value Ref Range Status 12/07/2024 6.1 (H) 4.7 - 5.6 % Final Sodium Date Value Ref Range Status 12/26/2024 135 135 - 145 mmol/L Final 12/25/2024 136 135 - 145 mmol/L Final Chloride Date Value Ref Range Status 12/26/2024 100 98 - 108 mmol/L Final 12/25/2024 103 98 - 108 mmol/L Final Potassium Date Value Ref Range Status 12/26/2024 3.8 3.5 - 5.0 mmol/L Final 12/25/2024 3.7 3.5 - 5.0 mmol/L Final CO2 Date Value Ref Range Status 12/26/2024 25 21 - 31 mmol/L Final 12/25/2024 24 21 - 31 mmol/L Final Phosphorous Date Value Ref Range Status 12/26/2024 3.0 2.2 - 4.6 mg/dL Final 12/25/2024 4.4 2.2 - 4.6 mg/dL Final Calcium Date Value Ref Range Status 12/26/2024 7.7 (L) 8.6 - 10.5 mg/dL Final 12/25/2024 7.6 (L) 8.6 - 10.5 mg/dL Final Ionized Calcium, Whole Blood Date Value Ref Range Status 12/24/2024 4.48 (L) 4.60 - 5.30 mg/dL Final ICA Date Value Ref Range Status 12/24/2024 4.76 4.60 - 5.30 mg/dL Final Magnesium Date Value Ref Range Status 12/26/2024 2.1 1.6 - 2.6 mg/dL Final 12/25/2024 2.2 1.6 - 2.6 mg/dL Final Triglycerides Date Value Ref Range Status 12/25/2024 120 <150 mg/dL Final Comment: [<150 mg/dL: Desirable] [150-199 mg/dL: Borderline] [200-499 mg/dL: High] [>500 mg/dL: Very High] 12/07/2024 169 (H) <150 mg/dL Final Comment: [<150 mg/dL: Desirable] [150-199 mg/dL: Borderline] [200-499 mg/dL: High] [>500 mg/dL: Very High] Bilirubin Total Date Value Ref Range Status 12/24/2024 0.6 <1.5 mg/dL Final 12/07/2024 1.0 <1.5 mg/dL Final Fluid Management (24 hrs): I/O last 3 completed shifts: In: 3513.3 [P.O.:50; I.V.:2178.7; TPN:1020.4; IV Piggyback:264.2] Out: 1342 [Urine:1332; Other:10] Pharmacy will continue to follow. Name: Cristina Mendoza RPH Phone: [phone] Date/Time: 12/26/2024 9:33 AM * Rogelio Hoover MD - 12/25/2024 4:13 PM EDT CRS 12/24: ex lap, tac, EI for UC S: Pain controlled. Requiring prn anti emetics x1 this AM. Awaiting bowel function per ileostomy- no flatus or stool. O: Temp: [97.4 F (36.3 C)-98.2 F (36.8 C)] 97.4 F (36.3 C) Pulse (Heart Rate): [96-107] 103 Resp Rate: [10-23] 15 BP: (89-143)/(50-66) 143/65 Arterial Line (1) BP: (99-136)/(34-71) 100/57 O2 Sat (%): [95 %-100 %] 97 % I/O last 3 completed shifts: In: 4253.2 [P.O.:100; I.V.:2968.3; TPN:849.2; IV Piggyback:335.7] Out: 1217 [Urine:1097; Other:120] WBC/Hgb/Hct/Plts: 20.88/10.4/34.1/476 (12/25 004) Bun/Creat/Cl/CO2/Glucose: 18/1.43/103/24/138 (12/25 0041-12/25 1222) PE: General: NAD, lying in bed Pulm: Respirations easy and non labored Abd: soft and appropriately tender, non distended, stoma above skin level, no flatus or stool in appliance A: Conrad Oconnell is a 69 y.o. male with history of NICM, HFrEF 35%, COPD no home oxygen, KIM on CPAP, HTN, A fib s/p DCCV 12/08 on eliquis, and ulcerative colitis. Pt presented to OSH on 12/13 with abdominal pain where imaging was c/f acute diverticulitis with adjacent abscess. Pt underwent ex lap, abscess drainage, washout, and drain placement on 12/15. Interval CT on 12/21 obtained for continued abdpain was c/f new abscess and decreased size of prior abscess from 4 to 3.1cm. Pt was transferred toO for further care. He underwent open TAC, SBR x 2, small bowel serosal injury repair x 1, primary repair of umbilical hernia, EI formation on 12/24 and was admitted to SICU post operatively for hemodynamic monitoring/pressor requirements. P: Today's plan Wean pressors as able AROBF NPO Okay with TPN and heparin gtt Follow up EP recs Nonurgent wound vac consult Colon perforation Ulcerative colitis (POA): current management balsalazide. Previously: budesonide. Last prednisone: 11/22. Intra abdominal abscess: likely 2/2 colonic perforation, perforation etiology unclear- diverticulitis vs UC. Clinical exam reassuring, will proceed to OR within 12 hours, pending Cardiology input. Last colonoscopy in chart from 2022 with tubular adenomas noted from a localized area of erythematous mucosa and 3- 15mm sessile/semi-pedunculated sigmoid polyps x4 with a 7-10mm cecal polyp. Pt reports repeat cscope 07/2024 he was told noted severe colitis for which he completed a prednisone course. Complexity. Obesity, class I Body mass index is 32.47 kg/m . - Follow with PCP for dietary and lifestyle modifications. Wound Documentation Wound Surgical 12/24/24 0113 Anterior;Midline Abdomen (Active) Date First Assessed/Time First Assessed: 12/24/24112 Primary Wound Type: Surgical Incision Type: midline Incision Closure/Dressing: Gauze;ABD Wound Description: Fascia closed skin open and packed with 1 kerlex roll damp Wound Location Orientat... Any conditions listed below are present on admission unless otherwise specified. . CENTRAL LINES: Central Line LDAs Active Central Line Access Devices Name Placement date Placement time Site Days PICC Line - Double Lumen 12/22/24520 basilic vein (medial side of arm), left 12/22/24520 -- 3 Central Line Indications: No line currently in place If patient has multiple lines, please choose the answers of the next two questions to correlate with the lines listed above in descending order Can line/s be removed today? Select all that apply No line in place at this time Dressing/s Clean/Dry/Intact?: Select all that apply No line currently in place Patient seen with colorectal team, plan of care discussed, and they are in agreement. Rogelio Hoover MD For patients located in or [facility] please page [phone] Cosigned by Barbara Call MD at 12/27/2024 2:36 PM EDT * Tori Steen MD - 12/25/2024 1:33 PM EDT SICU Daily Progress Note CURRENT ADMISSION/HOSPITALIZATION SUMMARY: SICU Attending Today: Aaron Su MD SICU Team: CARDOSO: 1st call [phone] SICU and Enio [facility]TRAN[facility] QGenda Link Code status: Full Code Hospital days: LOS: 3 days [facility]PITAL [facility]RSE [place]: Conrad Oconnell is a 69 y.o. with a history of HTN/HLD, CAD c/b HFrEF (EF 35%), persistent afib/aflutter s/p DCCV (12/08/24) on tikosyn and eliquis, KIM, COPD, UC (on budesonide and pred 10mg daily) whopresents with perforated diverticulitis s/p ex lap, washout, AMY drain placement on 12/15, briefly admitted to SICU for a few days afterwards for close hemodynamic monitoring. Repeat CTAP 12/21 demonstrated decreased 3.1 from 4cm abscess but a new 8.2cm abscess adjacent to AMY tract. In afib w/ RVR, normotensive earlier today. Now s/p exploratory laparotomy, TAC/EI, SBR x2, serosal injury repair, AMY placement 12/24 She/he was admitted to the [facility] on 12/24/24 from OR d/t pressor requirements SICU ADMISSION: Conrad Oconnell was admitted to the SICU on 12/24/25 due to pressor requirements LAST 24 HOURS Restarted hep gtt Weaned off levo, currently hemodynamically stable Started TPN SUMMARY OF PLAN FOR 12/25/2024 Discontinue A-line Afib- HR currently WNL, EP consulted; will continue amio gtt for now and hold home meds AROBF Continue zosyn ACTIVE CRITICAL CARE PROBLEMS SURGICAL: S/p exploratory laparotomy, washout, AMY drain placement on 12/15 S/p exploratory laparotomy, TAC/EI, SBR x2, serosal injury repair, AMY placement 12/24 1 Day Post-Op AMY to bulb suction, empty q8hr, 5ml/since OR Continue zosyn 4d EOT 12/28 NEURO: Acute post-operative pain Scheduled Tylenol 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 Cardiogenic Septic likely 2/2 intraabdominal abscesses related to colonic perforation with diverticulitis v. UC, now resolving Weaned off levo, hemodynamically stable Continue to monitor Gentle resuscitation if needed given low EF AFIB (chronic s/p DCCV 11/18, on eliquis and tikosyn) [id number] Score: 3 Most recent ECG: Atrial fibrillation EP consulted Received amio 150mg in OR, addl amio 150mg ordered postop Outpatient follow up for AF ablation Awaiting formal recs but likely to continue amio gtt for now Hold home entresto, tikosyn, SGLT Hold home metoprolol in the setting of requiring pressors Continue hep gtt HFrEF Most recent TTE (12/24/2024)- improved EF compared to previous scan (40-45%) Hold home furosemide, aldactone Limit IVF if possible RESPIRATORY: No acute concerns Most recent ABG: pH/PCO2/PO2/HCO3: 7.36/35/85/20 (12/24 613) COPD (POA) Continue home trelegy ellipta Continue home PRN albuterol KIM (POA) On nocturnal CPAP GI: Risk for protein calorie malnutrition Diet:DIET NPO with meds Parenteral Nutrition Clinimix Prealbumin: Pending Nutrition plan: TPN consult Last Bowel Movement: 12/23/24 Bowel regimen: Pending ROBF Ulcerative Colitis Continue home prednisone Hold home budesonide RENAL/: At risk for MJ: Baseline creatinine: 0.9 Continue MIVF at 100 ml/hr Marginal UOP, 500 ml LR bolus LABS Recent Labs 12/23/24 0315 12/24/24 0105 12/24/24 0229 12/24/24 0405 12/25/24 0041 SODIUM 138 < > 139 138 136 POTASSIUM 3.6 < > 4.1 4.2 3.7 CHLORIDE 103 -- -- 106 103 CO2 24 -- -- 22 24 BUN 15 -- -- 13 18 CREATSERUM 0.88 -- -- 1.05 1.43* CALCIUM 7.8* -- -- -- 7.6* MAGNESIUM 2.0 -- -- 2.8* 2.2 PHOSPHORUS 2.7 -- -- 5.3* 4.4 ICA -- < > 4.48* 4.76 -- < > = values in this interval not displayed. ENDO: Risk for Stress Hyperglycemia: SSI Pre-diabetes - Hgba1c 6.1 (12/07/24) Hold home dapagliflozin LABS Recent Labs 12/25/24 0037 12/25/24 0041 12/25/24 0602 12/25/24 1222 GLUCOSE 159 150 154 138 HEME: Acute blood loss anemia superimposed on anemia of chronic disease Baseline Hgb: 12.4 (12/09) LABS Recent Labs 12/24/24 0405 12/25/24 0041 HGB 12.6* 10.4* HCT 42.5 34.1* PLATELET 663* 476* INR 1.2* 1.4* ID: Septic Shock: Secondary to intraabdominal abscesses related to colonic perforation Worsening leukocytosis, requiring low dose pressors Continue zosyn, now with source control, stop date of 12/28 LABS Recent Labs 12/23/24 0315 12/24/24 0405 12/25/24 0041 WBC 11.94* 27.10* 20.88* Temp (24hrs), Av.8 F (36.6 C), Min:97.1 F (36.2 C), Max:98.2 F (36.8 C) Antibiotic Time Out Completed [x] Yes [] No [] N/a Cultures: None Antibiotics: Zosyn (12/22-12/28) CHRONIC MEDICAL PROBLEMS Complexity. Obesity, class I Body mass index is 32.47 kg/m . - Follow with PCP for dietary and lifestyle modifications. Wound Documentation Wound Surgical 12/24/24112 Anterior;Midline Abdomen (Active) Date First Assessed/Time First Assessed: 12/24/24112 Primary Wound Type: Surgical Incision Type: midline Incision Closure/Dressing: Gauze;ABD Wound Description: Fascia closed skin open and packed with 1 kerlex roll damp Wound Location Orientat... Any conditions listed below are present on admission unless otherwise specified. COPD Without Exacerbation Anemia of Chronic Disease ICU CENTRAL LINES & CHECKLIST ICU Checklist: Stress Ulcer Prophylaxis: DVT Prophylaxis: Heparin gtt for A-Fib Type/Screen Current: Yes Fall Risk: Assessed for patient fall risk and discussed safety measures during rounding. Labs to be discontinued 12/25/2024 : None Advanced Care Planning: Full code A-G Bundle: [x] Assess pain Presence of Pain: not present: non-verbal indicator of pain/discomfort Presence of Pain Score (Auto-calculated): 0 [] Both SAT & SBT B = SAT/SBT Eligibility, Safety Screen & Outcomes (Document Daily in ICU) Is/Was patient receiving continuous sedative/opioid IV medications today?: No - Only receiving medsfor analgesia (Not for sedation) [x] Choice of analgesia/ sedation See neuro [x] Delirium Overall CAM-ICU: Negative [x] Early mobility PT/OT consulted?: Yes CURRENT AM-PAC Mobility Raw Score: 8 CURRENT AM-PAC Mobility Functional Limitation: 86.62% Impaired in Basic Mobility [x] Family Engagement Primary Emergency Contact: Bridgette Oconnell Last updated: 12/24, primary team [x] Get lines out [place]: inserted 12/24, (indication:hemodynamic monitoring) Abraham: inserted 12/22, (indication:postop from colorectal surgery) Rectal tube: None Enteral access: None CENTRAL LINES: Central Line LDAs Active Central Line Access Devices Name Placement date Placement time Site Days PICC Line - Double Lumen 12/22/24 05 basilic vein (medial side of arm), left 12/22/24 0521 -- 3 Central Line Daily Indication(s) and Daily Review of Necessity 12/25/2024: If multiple lines, please use order shown above as reference when selecting line to be removed Invasive hemodynamic monitoring and Medication requiring central venous administration Central Line De-escalation Plan: TPN PHYSICAL EXAM Physical Exam Constitutional: Appearance: Normal appearance. HENT: Head: Normocephalic and atraumatic. Eyes: Pupils: Pupils are equal, round, and reactive to light. Cardiovascular: Rate and Rhythm: Rhythm irregular. Comments: Afib w/RVR Pulmonary: Effort: Pulmonary effort is normal. Breath sounds: Normal breath sounds. Abdominal: General: Abdomen is flat. There is distension. Palpations: Abdomen is soft. Comments: Midline dressing without strikethrough RUQ ileostomy pink at level of skin RLQ AMY SS Musculoskeletal: General: Normal range of motion. Skin: General: Skin is warm and dry. Capillary Refill: Capillary refill takes less than 2 seconds. Neurological: Mental Status: He is alert and oriented to person, place, and time. Psychiatric: Mood and Affect: Mood normal. Behavior: Behavior normal. Heber Oconnell has a high probability of clinically significant imminent life- threatening deteriorationwhich could result in multi-organ failure. I have personally spent 35 minutes exclusive of procedures providing critical care services, including obtaining history, reviewing clinical history, active mediations, outreach consultant recommendations, interpreting vital signs, laboratory and microbiology results, and radiographic studies, developing and discussing management plan with other providers, as well as frequent evaluations to assess response to treatment. Tori Steen MD [facility] Department of Surgery Division of Critical Care, Trauma, and Burn Phone number: [phone] [facility] and [facility] Qgenda Link Cosigned by Aaron Su MD at 12/25/2024 4:26 PM EDT Associated attestation - Aaron Su MD - 12/25/2024 4:26 PM EDT Surgical Critical Care Attending Attestation I have personally seen and examined Conrad Oconnell on 12/25/2024. I agree with the resident physician's documentation and have discussed my assessment and plan with the resident physician: CARMEN HR improved, still a fib Came off pressor last night Assessment/Plan Neuro GCS 15 Multimodal pain control, add dPCA CV A fib, RVR-hx of afib-amio drip HR now 90-100s, much improved throughout the day Discuss w EP re: resuming his home meds Septic shock resolved, came off pressor overnight EF 40-45% on repeat echo Pulm Extubated post op NC, wean as able Hx COPD- home inhalers Hx KIM-home CPAP HS GI Hx UC, perforated diverticulitis s/p Ex lap TAC/EI 12/24 TPN started at OSH, will resume here Holding tube feeds Ileostomy looks ok-no real output, no gas HX UC-continue prednisone 10 Renal Cr 1.43, MJ Abraham, keep, trend uop LR@60 for now No indication for HD Endo ISS Heme Hgb 10.4 Plt 476 Heparin drip back on ID Perforated diverticulitis s/p ex lap, TAC Zosyn 12/24- Wbc 20, downtrending Disp ICU Conrad Oconnell has a high probability of clinically significant imminent life- threatening deterioration which could result in multi-organ failure. I have personally spent 35 minutes (CPT code(s) 59946) exclusive of procedures and teaching providing critical care services, including obtaining history, reviewing clinical history, active mediations, outreach consultant recommendations, interpreting vital signs, laboratory and microbiology results, and radiographic studies, developing and discussing management plan with other providers, as well as frequent evaluations to assess response to treatment. Aaron Su MD Division of Trauma, Critical Care, Burn 12/25/2024 * Aaron Su MD - 12/25/2024 10:01 AM EDT Surgical Critical Care Attending Attestation I have personally seen and examined Conrad Oconnell on 12/25/2024. I agree with the resident physician's documentation and have discussed my assessment and plan with the resident physician: CARMEN HR improved, still a fib Came off pressor last night Assessment/Plan Neuro GCS 15 Multimodal pain control, add dPCA CV A fib, RVR-hx of afib-amio drip HR now 90-100s, much improved throughout the day Discuss w ДМИТРИЙ re: resuming his home meds Septic shock resolved, came off pressor overnight EF 40-45% on repeat echo Pulm Extubated post op NC, wean as able Hx COPD- home inhalers Hx KIM-home CPAP HS GI Hx UC, perforated diverticulitis s/p Ex lap TAC/EI / TPN started at OSH, will resume here Holding tube feeds Ileostomy looks ok-no real output, no gas HX UC-continue prednisone 10 Renal Cr 1.43, MJ Abraham, keep, trend uop LR@60 for now No indication for HD Endo ISS Heme Hgb 10.4 Plt 476 Heparin drip back on ID Perforated diverticulitis s/p ex lap, TAC Zosyn 12/24- Wbc 20, downtrending Disp ICU Conrad Oconnell has a high probability of clinically significant imminent life- threatening deterioration which could result in multi-organ failure. I have personally spent 35 minutes (CPT code(s) 64753) exclusive of procedures and teaching providing critical care services, including obtaining history, reviewing clinical history, active mediations, outreach consultant recommendations, interpreting vital signs, laboratory and microbiology results, and radiographic studies, developing and discussing management plan with other providers, as well as frequent evaluations to assess response to treatment. Aaron Su MD Division of Trauma, Critical Care, Burn 12/25/2024 * Ewa Garcia [facility] - 12/25/2024 8:09 AM EDT Department of Pharmacy TPN Consult Note Patient: Conrad Oconnell Room/Bed: [facility]/A Recommendation: Chemistries, intake/output, glycemic control, and medications reviewed. Electrolytes replacement outside TPN ordered: Per ordered electrolyte protocol Current maintenance IV fluids: LR @ 60 mL/hr. Will maintain same rate when the next TPN bag starts this evening (TPN rate will remain 40 mL/hr). Clinimix E started last night; will switch to custom TPN with tonight's bag with macronutrients per Day 2 recommendations (Dextrose 100 g, AA 55 g, SMOFlipid 25 g). Added zinc 10 mg and selenium [address] recommendations. Noted MJ (Scr 1.4 mg/dL from 1 mg/dL yesterday). Pharmacy will continue to follow. TPN Formula: Current Rate: continuous TPN at 40 mL/hr. (volume 1000 mL) Rate for new bag this evening at 2200: continuous TPN at 40 mL/hr. (volume 960 mL) TPN Goal Volume: 2280 mL Lipid: SMOFlipid given daily See current IHIS order for electrolyte components and administration details. Please refer to most recent dietitian consult note for nutritional assessment and formula including macronutrient recommendations. . Assessment: Lab Values: Albumin Date Value Ref Range Status 12/24/2024 2.6 (L) 3.5 - 5.0 g/dL Final Prealbumin Date Value Ref Range Status 12/25/2024 8 (L) 17 - 34 mg/dL Final BUN Date Value Ref Range Status 12/25/2024 18 7 - 25 mg/dL Final Creatinine Date Value Ref Range Status 12/25/2024 1.43 (H) 0.70 - 1.30 mg/dL Final Glucose Date Value Ref Range Status 12/25/2024 150 Nonfastin-179 mg/dL; Fastin-99 mg/dL Final Glucose (POC Device) Date Value Ref Range Status 12/25/2024 154 Nonfasting Glucose: 70-179 mg/dL Final 12/25/2024 159 Nonfasting Glucose: 70-179 mg/dL Final Hemoglobin A1C HPLC Date Value Ref Range Status 12/07/2024 6.1 (H) 4.7 - 5.6 % Final Sodium Date Value Ref Range Status 12/25/2024 136 135 - 145 mmol/L Final 12/24/2024 138 135 - 145 mmol/L Final Chloride Date Value Ref Range Status 12/25/2024 103 98 - 108 mmol/L Final 12/24/2024 106 98 - 108 mmol/L Final Potassium Date Value Ref Range Status 12/25/2024 3.7 3.5 - 5.0 mmol/L Final 12/24/2024 4.2 3.5 - 5.0 mmol/L Final CO2 Date Value Ref Range Status 12/25/2024 24 21 - 31 mmol/L Final 12/24/2024 22 21 - 31 mmol/L Final Phosphorous Date Value Ref Range Status 12/25/2024 4.4 2.2 - 4.6 mg/dL Final 12/24/2024 5.3 (H) 2.2 - 4.6 mg/dL Final Calcium Date Value Ref Range Status 12/25/2024 7.6 (L) 8.6 - 10.5 mg/dL Final 12/23/2024 7.8 (L) 8.6 - 10.5 mg/dL Final Ionized Calcium, Whole Blood Date Value Ref Range Status 12/24/2024 4.48 (L) 4.60 - 5.30 mg/dL Final ICA Date Value Ref Range Status 12/24/2024 4.76 4.60 - 5.30 mg/dL Final Magnesium Date Value Ref Range Status 12/25/2024 2.2 1.6 - 2.6 mg/dL Final 12/24/2024 2.8 (H) 1.6 - 2.6 mg/dL Final Triglycerides Date Value Ref Range Status 12/25/2024 120 <150 mg/dL Final Comment: [<150 mg/dL: Desirable] [150-199 mg/dL: Borderline] [200-499 mg/dL: High] [>500 mg/dL: Very High] 12/07/2024 169 (H) <150 mg/dL Final Comment: [<150 mg/dL: Desirable] [150-199 mg/dL: Borderline] [200-499 mg/dL: High] [>500 mg/dL: Very High] Bilirubin Total Date Value Ref Range Status 12/24/2024 0.6 <1.5 mg/dL Final 12/07/2024 1.0 <1.5 mg/dL Final Fluid Management (24 hrs): I/O last 3 completed shifts: In: 4319.9 [P.O.:50; I.V.:3425.6; TPN:468.5; IV Piggyback:375.9] Out: 1390 [Urine:1265; Other:120] Pharmacy will continue to follow. Name: Ewa Garcia [facility] Phone: [phone] Date/Time: 12/25/2024 8:09 AM * Kary Espinozaealba - 12/24/2024 12:10 PM EDT SICU Daily Progress Note CURRENT ADMISSION/HOSPITALIZATION SUMMARY: SICU Attending Today: Dr. Su SICU Team: CARDOSO: 1st call [phone] [facility] Code status: Full Code Hospital days: LOS: 2 days HOSPITAL COURSE [place]: Conrad Oconnell is a 69 y.o. with a history of HTN/HLD, CAD c/b HFrEF (EF 35%), persistent afib/aflutter s/p DCCV (12/08/24) on tikosyn and eliquis, KIM, COPD, UC (on budesonide and pred 10mg daily) whopresents with perforated diverticulitis s/p ex lap, washout, AMY drain placement on 12/15, briefly admitted to SICU for a few days afterwards for close hemodynamic monitoring. Repeat CTAP 12/21 demonstrated decreased 3.1 from 4cm abscess but a new 8.2cm abscess adjacent to AMY tract. In afib w/ RVR, normotensive earlier today. Now s/p exploratory laparotomy, TAC/EI, SBR x2, serosal injury repair, AMY placement 12/24 He was admitted to the [facility] on 12/24/24 from OR d/t pressor requirements. Hospital course has been complicated by Septic shock requiring pressors. SICU ADMISSION: Conrad Oconnell was admitted to the SICU on 12/24/25 due to pressor requirements LAST 24 HOURS - OR for LAVINIA with end ileostomy, SBRx2, [address] - Admitted to SICU - Poor pain control - receive 2 x 150 amiodarone bolus - started Levophed - Zosyn (end 12/28) SUMMARY OF PLAN FOR 12/24/2024 Add gabapentin Follow up with EP team for new pressor requirement Restarted heparin Restarted TPN 500 mL bolus EKG Echo Midline dressing WTD change BID Discontinue IV Protonix Abraham to stay ACTIVE CRITICAL CARE PROBLEMS SURGICAL: S/p exploratory laparotomy, washout, AMY drain placement on 12/15 S/p exploratory laparotomy, TAC/EI, SBR x2, serosal injury repair, AMY placement 12/24 1 Day Post-Op AMY to bulb suction, empty q8hr Continue zosyn 4d EOT 12/28 NEURO: Acute post-operative pain Multimodal pain control 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 Cardiogenic Septic likely 2/2 intraabdominal abscesses related to colonic perforation with diverticulitis v. UC Continue zosyn 4d EOT 12/28 Levophed 500 mL LR bolus Unstable AFIB w/RVR (chronic s/p DCCV 11/18, on eliquis and tikosyn) [id number] Score: 3 Systemic anticoagulation: restarted Heparin gtt 12/24 Most recent TTE (12/07/24): LVEF 35%, normal LV size, normal RV size with mildly reduced RV function Most recent ECG: Atrial fibrillation Cardiology consulted Received amio 150mg in OR, addl amio 150mg ordered postop Start amiodarone 200mg BID Continue metoprolol XL 50mg daily Outpatient follow up for AF ablation Hold home entresto Hold home tikosyn Hold home aldactone Hold home SGLT Hold home lasix 40mg BID Consult EP: recommended treated reversible causes RESPIRATORY: Acute on Chronic Respiratory Failure: (specify hypoxic, hypercapnic, or combination)-hx of respiratory failure w/worsening respiratory symptoms Most recent CXR: Pending Most recent ABG: pH/PCO2/PO2/HCO3: 7.36/35/85/20 (12/24 0614) COPD (POA) Continue home trelegy ellipta Continue home PRN albuterol KIM (POA) On nocturnal CPAP GI: Risk for protein calorie malnutrition Diet:DIET NPO with meds Parenteral Nutrition Clinimix Prealbumin: Pending Nutrition plan: Pending Last Bowel Movement: 12/23/24 Bowel regimen: Pending ROBF Ulcerative Colitis Continue home prednisone Hold home budesonide RENAL/: At risk for MJ: Baseline creatinine: 0.[address] LABS Recent Labs 12/22/24 2352 12/23/24 0315 12/24/24 0105 12/24/24 0229 12/24/24 0405 SODIUM 139 138 < > 139 138 POTASSIUM 3.6 3.6 < > 4.1 4.2 CHLORIDE 103 103 -- -- 106 CO2 23 24 -- -- 22 BUN 16 15 -- -- 13 CREATSERUM 0.99 0.88 -- -- 1.05 CALCIUM 8.2* 7.8* -- -- -- MAGNESIUM 2.0 2.0 -- -- 2.8* PHOSPHORUS 2.5 2.7 -- -- 5.3* ICA -- -- < > 4.48* 4.76 < > = values in this interval not displayed. ENDO: Risk for Stress Hyperglycemia: SSI Pre-diabetes - Hgba1c 6.1 (12/07/24) Hold home dapagliflozin LABS Recent Labs 12/24/2422812/24/24 04012/24/24 0405 12/24/24 1105 GLUCOSE 137 155 156 172 HEME: Acute blood loss anemia superimposed on anemia of chronic disease Baseline Hgb: 12.4 (12/09) Transfuse for hgb<7 LABS Recent Labs 12/22/24235112/23/2431412/24/24 0105 12/24/249 12/24/24 0405 HGB 11.4* 10.8* -- -- 12.6* HCT 38.0* 36.7* < > 39* 42.5 PLATELET 421* 398* -- -- 663* INR 1.4* -- -- -- 1.2* < > = values in this interval not displayed. ID: LABS Recent Labs 12/22/24235112/23/2431412/24/24 0405 WBC 13.08* 11.94* 27.10* Temp (24hrs), Av.9 F (36.6 C), Min:97.1 F (36.2 C), Max:98.6 F (37 C) Leukocytosis Likely 2/2 Intra-abdominal abscesses s/p OR 12/15 and 12/24 Zosyn (end date 12/28) Trend WBCs Antibiotic Time Out Completed [x] Yes [] No [] N/a Cultures: None Antibiotics: Zosyn (12/22-12/28) CHRONIC MEDICAL PROBLEMS Complexity. Obesity, class I Body mass index is 32.47 kg/m . - Follow with PCP for dietary and lifestyle modifications. Wound Documentation Wound Surgical 12/24/24 0113 Anterior;Midline Abdomen (Active) Date First Assessed/Time First Assessed: 12/24/243 Primary Wound Type: Surgical Incision Type: midline Incision Closure/Dressing: Gauze;ABD Wound Description: Fascia closed skin open and packed with 1 kerlex roll damp Wound Location Orientat... Any conditions listed below are present on admission unless otherwise specified. COPD Without Exacerbation Anemia of Chronic Disease ICU CENTRAL LINES & CHECKLIST ICU Checklist: Stress Ulcer Prophylaxis: IV protonix DVT Prophylaxis: Heparin gtt Type/Screen Current: Yes Fall Risk: Assessed for patient fall risk and discussed safety measures during rounding. Labs to be discontinued 12/24/2024 : None Advanced Care Planning: Full code A-G Bundle: [x] Assess pain Presence of Pain: reports pain/discomfort Presence of Pain Score (Auto-calculated): 0 [x] Both SAT & SBT [x] Choice of analgesia/ sedation See neuro [x] Delirium Overall CAM-ICU: Negative [x] Early mobility PT/OT consulted?: Yes CURRENT AM-PAC Mobility Raw Score: 9 CURRENT AM-PAC Mobility Functional Limitation: 81.38% Impaired in Basic Mobility [x] Family Engagement Primary Emergency Contact: Bridgette Oconnell Last updated: 12/24, primary team [x] Get lines out [place]: inserted 12/24, (indication:hemodynamic monitoring) Abraham: inserted 12/22, (indication:postop from colorectal surgery) Rectal tube: None Enteral access: None CENTRAL LINES: Central Line LDAs Active Central Line Access Devices Name Placement date Placement time Site Days PICC Line - Double Lumen 12/22/24520 basilic vein (medial side of arm), left 12/22/24 05 -- 2 Central Line Daily Indication(s) and Daily Review of Necessity 12/24/2024: If multiple lines, please use order shown above as reference when selecting line to be removed Invasive hemodynamic monitoring and Insufficient peripheral venous access for planned therapy Central Line De-escalation Plan: Pending PHYSICAL EXAM Physical Exam Constitutional: Comments: Uncomfortable appearing HENT: Head: Normocephalic and atraumatic. Eyes: Pupils: Pupils are equal, round, and reactive to light. Cardiovascular: Rate and Rhythm: Tachycardia present. Rhythm irregular. Comments: Afib Pulmonary: Effort: Pulmonary effort is normal. Breath sounds: Normal breath sounds. Abdominal: General: Abdomen is flat. There is no distension. Palpations: Abdomen is soft. Tenderness: There is abdominal tenderness. Comments: Midline dressing without strikethrough RUQ ileostomy pink at level of skin RLQ AMY SS Musculoskeletal: General: Normal range of motion. Skin: General: Skin is warm and dry. Capillary Refill: Capillary refill takes less than 2 seconds. Coloration: Skin is not pale. Neurological: Mental Status: He is alert and oriented to person, place, and time. Psychiatric: Mood and Affect: Mood normal. Behavior: Behavior normal. Kary Bella [facility] Department of Surgery Division of Critical Care, Trauma, and Burn Phone number: [phone] [facility] and [facility] Qgenda Link Cosigned by Aaron Su MD at 12/24/2024 12:48 PM EDT * Claudine Merchant, Pharm Student - 12/24/2024 10:53 AM EDT Department of Pharmacy Admission Medication Reconciliation Note Patient: Conrad [facility] I have reviewed the patient's home medication list with the following sources Patient's family member/caregiver (). I have also reviewed this list with the pharmacist. A call to the pharmacy was not needed because the information compiled from listed sources corroborates the patient/caregiver interview. I am recommending the following changes to the home medication list. These recommendationsare considered preliminary until attestation of this note by a pharmacist. Added to Home Medications: Vitamin C 1000 mg tab: 1 po qday Fish oil: 1 po qday : 1 po qday Deleted from Home Medications: Prednisone 10 mg tab: take 1 tablet by mouth daily Other Comments: The patient's allergies have been reviewed with Patient's family member/caregiver. Albuterol 0.083% inhalation solution: Patient caregiver stated the PRN albuterol solution was not needed before this admission (12/22/24). Ipratropium 0.03% nasal solution: Patient caregiver stated patient was using it to help with his cough and that the patient was asking for this medication during this admission (12/22/24) to help with his cough. Prednisone 10 mg tabs: Patient caregiver stated that patient was put on prednisone by GI doctor andthen the pts metal tile lather upped the dose before tapering patient off. So patient no longer uses. and Fish Oil: Patient caregiver stated patients PCP recommended he take these OTCs. Please feel free to contact me with any further questions. Name: Kei Dominguez Student Preceptor: Daniela Alberts Phone #: Date/Time: 12/24/2024 10:55 AM Time Spent: 30 minutes Cosigned by Daniela Alberts RP at 12/24/2024 3:27 PM EDT Associated attestation - Daniela Alberts RPH - 12/24/2024 3:27 PM EDT Department of Pharmacy Admission Medication Reconciliation Note Patient: Conrad Oconnell Room[facility]Bed: [facility] I have reviewed the home medication list with the Student. The home medication list status is: complete. A call to the pharmacy was not needed because the information compiled from listed sources corroborates the patient/caregiver interview. All changes to the home medication list have been updatedin IS. Updated [employer]PRENTICE Med List: Prior to Admission Medications Prescriptions Albuterol (2.5 MG/3ML) 0.083% inhalation solution Sig: NEEDED 1 VIAL PER NEBULIZER 3 TIMES A DAY NEEDED Ascorbic Acid (Vitamin C) 1000 MG tablet Sig: Take 1 tablet by mouth daily. Dofetilide 250 MCG capsule Sig: Take 1 capsule by mouth every 12 hours. If 3 doses are missed, contact the prescribing rn float as soon as possible. Eliquis 5 MG tablet Sig: Take 1 tablet by mouth 2 times daily. Ipratropium 0.03 % Solution Si sprays by Nasal route 2 times daily. Metoprolol succinate 50 MG tablet XL Sig: Take 1 tablet by mouth every 12 hours. [place]-3 Fatty Acids (FISH OIL PO) Sig: Take 1 capsule by mouth daily. Potassium chloride 20 MEQ Tab CR tablet Sig: Take 2 tablets by mouth daily. Vit-Fe Fumarate-FA (CVS PO) Sig: Take 1 tablet by mouth daily. Spironolactone 25 MG tablet Sig: Take 1 tablet by mouth daily. Trelegy Ellipta 100-62.5-25 MCG/ACT Aerosol Powder, breath activated inhaler Sig: Inhale 1 puff daily. balsalazide 750 MG capsule Sig: Take 3 capsules by mouth 3 (three) times a day. budesonide [address] Particles capsule EC Sig: Take 3 capsules by mouth daily. dapagliflozin 10 MG tablet Sig: Take 1 tablet by mouth daily. furOSEmide 40 MG tablet Sig: Take 1 tablet by mouth 2 times daily (take before meals). sacubitril-valsartan 24-26 MG tablet Sig: Take 1 tablet by mouth every 12 hours. Facility-Administered Medications: None Please feel free to contact me with any further questions. Name: Daniela Alberts [facility] Phone #: [phone] Date/Time: 12/24/2024 3:27 PM * Marisabel Cheema APRN-[facility] - 12/24/2024 10:23 AM EDT SICU Daily Progress Note CURRENT ADMISSION/HOSPITALIZATION SUMMARY: SICU Attending Today: Aaron Su MD SICU Team: CARDOSO: 1st call [phone] SICU and [facility] QGenda Link Code status: Full Code Hospital days: LOS: 2 days [facility] [place]: Conrad Oconnell is a 69 y.o. with a history of HTN/HLD, CAD c/b HFrEF (EF 35%), persistent afib/aflutter s/p DCCV (12/08/24) on tikosyn and eliquis, KIM, COPD, UC (on budesonide and pred 10mg daily) whopresents with perforated diverticulitis s/p ex lap, washout, AMY drain placement on 12/15, briefly admitted to SICU for a few days afterwards for close hemodynamic monitoring. Repeat CTAP 12/21 demonstrated decreased 3.1 from 4cm abscess but a new 8.2cm abscess adjacent to AMY tract. In afib w/ RVR, normotensive earlier today. 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 If we need further recs can consider consulting cardiology Repeat Echo, last known EF 35%, in November 2024 TPN consult, colorectal in agreement Hypovolemia, plan for 500 ml LR bolus, gently resuscitating given know HFrEF ACTIVE CRITICAL CARE PROBLEMS SURGICAL: S/p exploratory laparotomy, washout, AMY drain placement on 12/15 S/p exploratory laparotomy, TAC/EI, SBR x2, serosal injury repair, AMY placement 12/24 1 Day Post-Op AMY to bulb suction, empty q8hr, 5ml/since OR Continue zosyn 4d EOT 12/28 NEURO: Acute post-operative pain Scheduled Tylenol Gabapentin 200 mg TID Dc PRN hydromorphone Add 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 Cardiogenic Septic likely 2/2 intraabdominal abscesses related to colonic perforation with diverticulitis v. UC MAP goal >65 Continue norepinephrine, currently at 0.03 mcg/kr/hr Lactate normal Appears hypovolemic, 500 ml LR bolus given. Cautiously resuscitate given EF of 35% Continue MIVF AFIB (chronic s/p DCCV 11/18, on eliquis and tikosyn) [id number] Score: 3 Most recent ECG: Atrial fibrillation EP consulted Received amio 150mg in OR, addl amio 150mg ordered postop Outpatient follow up for AF ablation Hold home entresto, tikosyn, SGLT Continue Amiodarone gtt Reach out to EP for further recs. Can consider a Cardiology consult if further recommendations needed Hold home metoprolol in the setting of requiring pressors Restart Heparin gtt at 10AM HFrEF Most recent TTE (12/07/24): LVEF 35%, normal LV size, normal RV size with mildly reduced RV function Hold home furosemide, aldactone Repeat Echo RESPIRATORY: No acute concerns Most recent ABG: pH/PCO2/PO2/HCO3: 7.36/35/85/20 (12/24 613) COPD (POA) Continue home trelegy ellipta Continue home PRN albuterol KIM (POA) On nocturnal CPAP GI: Risk for protein calorie malnutrition Diet:DIET NPO with meds Parenteral Nutrition Clinimix Prealbumin: Pending Nutrition plan: TPN consult Last Bowel Movement: 12/23/24 Bowel regimen: Pending ROBF Ulcerative Colitis Continue home prednisone Hold home budesonide RENAL/: At risk for MJ: Baseline creatinine: 0.9 Continue MIVF at 100 ml/hr Marginal UOP, 500 ml LR bolus LABS Recent Labs 12/22/24 23512/23/2431412/24/2410412/24/24 0229 12/24/24 0405 SODIUM 139 138 < > 139 138 POTASSIUM 3.6 3.6 < > 4.1 4.2 CHLORIDE 103 103 -- -- 106 CO2 23 24 -- -- 22 BUN 16 15 -- -- 13 CREATSERUM 0.99 0.88 -- -- 1.05 CALCIUM 8.2* 7.8* -- -- -- MAGNESIUM 2.0 2.0 -- -- 2.8* PHOSPHORUS 2.5 2.7 -- -- 5.3* ICA -- -- < > 4.48* 4.76 < > = values in this interval not displayed. ENDO: Risk for Stress Hyperglycemia: SSI Pre-diabetes - Hgba1c 6.1 (12/07/24) Hold home dapagliflozin LABS Recent Labs 12/24/2422812/24/24 0403 12/24/24 0405 12/24/24 1105 GLUCOSE 137 155 156 172 HEME: Acute blood loss anemia superimposed on anemia of chronic disease Baseline Hgb: 12.4 (12/09) LABS Recent Labs 12/22/24 2352 12/23/24 0315 12/24/24 01012/24/24 0229 12/24/24 0405 HGB 11.4* 10.8* -- -- 12.6* HCT 38.0* 36.7* < > 39* 42.5 PLATELET 421* 398* -- -- 663* INR 1.4* -- -- -- 1.2* < > = values in this interval not displayed. ID: Septic Shock: Secondary to intraabdominal abscesses related to colonic perforation Worsening leukocytosis, requiring low dose pressors Continue zosyn, now with source control, stop date of 12/28 LABS Recent Labs 12/22/242 12/23/24 0315 12/24/24 0405 WBC 13.08* 11.94* 27.10* Temp (24hrs), Av.9 F (36.6 C), Min:97.1 F (36.2 C), Max:98.6 F (37 C) Antibiotic Time Out Completed [x] Yes [] No [] N/a Cultures: None Antibiotics: Zosyn (12/22-12/28) CHRONIC MEDICAL PROBLEMS Complexity. Obesity, class I Body mass index is 32.59 kg/m . - Follow with PCP for dietary and lifestyle modifications. Wound Documentation Wound Surgical 12/24/24 011 Anterior;Midline Abdomen (Active) Date First Assessed/Time First Assessed: 12/24/24112 Primary Wound Type: Surgical Incision Type: midline Incision Closure/Dressing: Gauze;ABD Wound Description: Fascia closed skin open and packed with 1 kerlex roll damp Wound Location Orientat... Any conditions listed below are present on admission unless otherwise specified. COPD Without Exacerbation Anemia of Chronic Disease ICU CENTRAL LINES & CHECKLIST ICU Checklist: Stress Ulcer Prophylaxis: DVT Prophylaxis: Heparin gtt for A-Fib Type/Screen Current: Yes Fall Risk: Assessed for patient fall risk and discussed safety measures during rounding. Labs to be discontinued 12/24/2024 : None Advanced Care Planning: Full code A-G Bundle: [x] Assess pain Presence of Pain: reports pain/discomfort Presence of Pain Score (Auto-calculated): 0 [] Both SAT & SBT [x] Choice of analgesia/ sedation See neuro [x] Delirium Overall CAM-ICU: Negative [x] Early mobility PT/OT consulted?: Yes CURRENT AM-PAC Mobility Raw Score: 9 CURRENT AM-PAC Mobility Functional Limitation: 81.38% Impaired in Basic Mobility [x] Family Engagement Primary Emergency Contact: Bridgette Oconnell Last updated: 12/24, primary team [x] Get lines out [place]: inserted 12/24, (indication:hemodynamic monitoring) Abraham: inserted 12/22, (indication:postop from colorectal surgery) Rectal tube: None Enteral access: None CENTRAL LINES: Central Line LDAs Active Central Line Access Devices Name Placement date Placement time Site Days PICC Line - Double Lumen 12/22/24520 basilic vein (medial side of arm), left 12/22/24 0521 -- 2 Central Line Daily Indication(s) and Daily Review of Necessity 12/24/2024: If multiple lines, please use order shown above as reference when selecting line to be removed Invasive hemodynamic monitoring and Medication requiring central venous administration Central Line De-escalation Plan: TPN PHYSICAL EXAM Physical Exam Constitutional: Appearance: Normal appearance. HENT: Head: Normocephalic and atraumatic. Eyes: Pupils: Pupils are equal, round, and reactive to light. Cardiovascular: Rate and Rhythm: Rhythm irregular. Comments: Afib w/RVR Pulmonary: Effort: Pulmonary effort is normal. Breath sounds: Normal breath sounds. Abdominal: General: Abdomen is flat. There is distension. Palpations: Abdomen is soft. Comments: Midline dressing without strikethrough RUQ ileostomy pink at level of skin RLQ AMY SS Musculoskeletal: General: Normal range of motion. Skin: General: Skin is warm and dry. Capillary Refill: Capillary refill takes less than 2 seconds. Neurological: Mental Status: He is alert and oriented to person, place, and time. Psychiatric: Mood and Affect: Mood normal. Behavior: Behavior normal. Heber Oconnell has a high probability of clinically significant imminent life- threatening deteriorationwhich could result in multi-organ failure. I have personally spent 35 minutes exclusive of procedures providing critical care services, including obtaining history, reviewing clinical history, active mediations, outreach consultant recommendations, interpreting vital signs, laboratory and microbiology results, and radiographic studies, developing and discussing management plan with other providers, as well as frequent evaluations to assess response to treatment. Marisabel Cheema, ENDY-[facility] Department of Surgery Division of Critical Care, Trauma, and Burn Phone number: [phone] [facility] Link Cosigned by Aaron Su MD at 12/24/2024 12:31 PM EDT Associated attestation - Aaron Su MD - 12/24/2024 12:31 PM EDT Surgical Critical Care Attending Attestation I have personally seen and examined Conrad Oconnell on 12/24/2024. I agree with the resident physician's documentation and have discussed my assessment and plan with the resident physician: New admit overnight Hx UC with perforated diverticulitis s/p Ex lap TAC EI, post op intubated to sicu in septic shock Assessment/Plan Neuro GCS 15 Multimodal pain control, add dPCA CV A fib, RVR-hx of afib-amio drip, got 2 boluses without conversion. He had this pre-op and EP saw him in pre-op, HR at that time were 110s At home he takes metop-50 BID, dofetilide, entresto-on hold with hypotension Pre-op EF 35 Re-engage cards/EP for assistance At this time I do not think he needs emergent cardioversion but this will be a consideration if hisshock worsens. He is on a very low dose of levo and weaning Hypotensive on pressor Septic shock, likely some component of his underlying cardiac disease-weaning levo Echo, EKG ordered Pulm Extubated post op NC, wean as able Hx COPD- home inhalers GI Hx UC, perforated diverticulitis s/p Ex lap TAC/EI 12/24 TPN started at OSH, will resume here Holding tube feeds Ostomy HX UC-continue prednisone 10 Renal Cr 1.05 Abraham, keep, trend uop LR@100 No indication for HD Endo ISS Heme Hgb 12.6 Plt 663 Resume heparin drip this AM (afib) ID Perforated diverticulitis s/p ex lap, TAC Zosyn 12/24- Wbc 27.1 Disp ICU Conrad Oconnell has a high probability of clinically significant imminent life- threatening deterioration which could result in multi-organ failure. I have personally spent 35 minutes (CPT code(s) 87243) exclusive of procedures and teaching providing critical care services, including obtaining history, reviewing clinical history, active mediations, outreach consultant recommendations, interpreting vital signs, laboratory and microbiology results, and radiographic studies, developing and discussing management plan with other providers, as well as frequent evaluations to assess response to treatment. Aaron Su MD Division of Trauma, Critical Care, Burn 12/24/2024 * Daniela Alberts, [facility] - 12/24/2024 9:57 AM EDT Department of Pharmacy TPN Consult Note Patient: Conrad Oconnell Room/Bed: [facility]/ Recommendation: Chemistries, intake/output, glycemic control, and medications reviewed. Initiating Clinimix E 4.25/10% this evening. Please refer to dietitian consult note for detailed nutritional assessment and formula including macronutrient recommendations. Labs ordered per TPN initial order set. Pharmacy will continue to follow. Current maintenance IV fluids: LR @ 100 mL/hr. Adjusted to LR at 60 mL/hr when TPN bag starts this evening. TPN Formula: Rate for new bag this evening at 2200: continuous TPN at 40 mL/hr. (volume 1000 mL) Lipid: SMOFlipid given daily See current IHIS order for electrolyte components and administration details. . Assessment: Lab Values: Albumin Date Value Ref Range Status 12/24/2024 2.6 (L) 3.5 - 5.0 g/dL Final BUN Date Value Ref Range Status 12/24/2024 13 7 - 25 mg/dL Final Creatinine Date Value Ref Range Status 12/24/2024 1.05 0.70 - 1.30 mg/dL Final Glucose, Whole Blood Date Value Ref Range Status 12/24/2024 137 Nonfasting Glucose: 70-179 mg/dL Final Glucose Date Value Ref Range Status 12/24/2024 156 Nonfastin-179 mg/dL; Fastin-99 mg/dL Final Glucose (POC Device) Date Value Ref Range Status 12/24/2024 155 Nonfasting Glucose: 70-179 mg/dL Final Hemoglobin A1C HPLC Date Value Ref Range Status 12/07/2024 6.1 (H) 4.7 - 5.6 % Final Sodium, Whole Blood Date Value Ref Range Status 12/24/2024 139 135 - 145 mmol/L Final Sodium Date Value Ref Range Status 12/24/2024 138 135 - 145 mmol/L Final Chloride Date Value Ref Range Status 12/24/2024 106 98 - 108 mmol/L Final 12/23/2024 103 98 - 108 mmol/L Final Potassium, Whole Blood Date Value Ref Range Status 12/24/2024 4.1 3.5 - 5.0 mmol/L Final Potassium Date Value Ref Range Status 12/24/2024 4.2 3.5 - 5.0 mmol/L Final CO2 Date Value Ref Range Status 12/24/2024 22 21 - 31 mmol/L Final 12/23/2024 24 21 - 31 mmol/L Final Phosphorous Date Value Ref Range Status 12/24/2024 5.3 (H) 2.2 - 4.6 mg/dL Final 12/23/2024 2.7 2.2 - 4.6 mg/dL Final Calcium Date Value Ref Range Status 12/23/2024 7.8 (L) 8.6 - 10.5 mg/dL Final 12/22/2024 8.2 (L) 8.6 - 10.5 mg/dL Final Ionized Calcium, Whole Blood Date Value Ref Range Status 12/24/2024 4.48 (L) 4.60 - 5.30 mg/dL Final ICA Date Value Ref Range Status 12/24/2024 4.76 4.60 - 5.30 mg/dL Final Magnesium Date Value Ref Range Status 12/24/2024 2.8 (H) 1.6 - 2.6 mg/dL Final 12/23/2024 2.0 1.6 - 2.6 mg/dL Final Triglycerides Date Value Ref Range Status 12/07/2024 169 (H) <150 mg/dL Final Comment: [<150 mg/dL: Desirable] [150-199 mg/dL: Borderline] [200-499 mg/dL: High] [>500 mg/dL: Very High] Bilirubin Total Date Value Ref Range Status 12/24/2024 0.6 <1.5 mg/dL Final 12/07/2024 1.0 <1.5 mg/dL Final Fluid Management (24 hrs): I/O last 3 completed shifts: In: 3431.5 [P.O.:100; I.V.:2595; IV Piggyback:736.5] Out: 605 [Urine:500; Other:105] Pharmacy will continue to follow. Name: Daniela Alberts [facility] Phone: [phone] Date/Time: 12/24/2024 9:57 AM * Aaron Su MD - 12/24/2024 9:41 AM EDT Surgical Critical Care Attending Attestation I have personally seen and examined Conrad Oconnell on 12/24/2024. I agree with the resident physician's documentation and have discussed my assessment and plan with the resident physician: New admit overnight Hx UC with perforated diverticulitis s/p Ex lap TAC EI, post op intubated to sicu in septic shock Assessment/Plan Neuro GCS 15 Multimodal pain control, add dPCA CV A fib, RVR-hx of afib-amio drip, got 2 boluses without conversion. He had this pre-op and EP saw him in pre-op, HR at that time were 110s At home he takes metop-50 BID, dofetilide, entresto-on hold with hypotension Pre-op EF 35 Re-engage cards/EP for assistance At this time I do not think he needs emergent cardioversion but this will be a consideration if hisshock worsens. He is on a very low dose of levo and weaning Hypotensive on pressor Septic shock, likely some component of his underlying cardiac disease-weaning levo Echo, EKG ordered Pulm Extubated post op NC, wean as able Hx COPD- home inhalers GI Hx UC, perforated diverticulitis s/p Ex lap TAC/EI 12/24 TPN started at OSH, will resume here Holding tube feeds Ostomy HX UC-continue prednisone 10 Renal Cr 1.05 Abraham, keep, trend uop LR@100 No indication for HD Endo ISS Heme Hgb 12.6 Plt 663 Resume heparin drip this AM (afib) ID Perforated diverticulitis s/p ex lap, TAC Zosyn /- Wbc 27.1 Disp ICU Conrad Oconnell has a high probability of clinically significant imminent life- threatening deterioration which could result in multi-organ failure. I have personally spent 35 minutes (CPT code(s) 91637) exclusive of procedures and teaching providing critical care services, including obtaining history, reviewing clinical history, active mediations, outreach consultant recommendations, interpreting vital signs, laboratory and microbiology results, and radiographic studies, developing and discussing management plan with other providers, as well as frequent evaluations to assess response to treatment. Aaron Su MD Division of Trauma, Critical Care, Burn 12/24/2024 * Mahnaz Viramontes Rory, ANTHROPOLOGY AND ARCHEOLOGY INSTRUCTOR-OFFSET LABEL REWINDER - 12/24/2024 9:13 AM EDT S: Pain controlled. Requiring prn anti emetics x1 this AM. Awaiting bowel function per ileostomy- no flatus or stool. O: Temp: [97.1 F (36.2 C)-98.6 F (37 C)] 97.7 F (36.5 C) Pulse (Heart Rate): [87-135] 130 Resp Rate: [18-33] 23 BP: (92-113)/(50-73) 100/73 Arterial Line (1) BP: (84-107)/(57-79) 107/79 O2 Sat (%): [92 %-99 %] 98 % Weight: [100.1 kg (220 lb 10.9 oz)-102 kg (224 lb 14.4 oz)] 100.1 kg (220 lb 10.9 oz) I/O last 3 completed shifts: In: 3431.5 [P.O.:100; I.V.:2595; IV Piggyback:736.5] Out: 605 [Urine:500; Other:105] WBC/Hgb/Hct/Plts: 27.10/12.6/42.5/663 (12/24 404) Bun/Creat/Cl/CO2/Glucose: 13/1.05/106/22/156 (12/24 404) PE: General: NAD, lying in bed Pulm: Respirations easy and non labored Abd: soft and appropriately tender, non distended, stoma above skin level, no flatus or stool in appliance A: Conrad Oconnell is a 69 y.o. male with history of NICM, HFrEF 35%, COPD no home oxygen, KIM on CPAP, HTN, A fib s/p DCCV 12/08 on eliquis, and ulcerative colitis. Pt presented to OSH on 12/13 with abdominal pain where imaging was c/f acute diverticulitis with adjacent abscess. Pt underwent ex lap, abscess drainage, washout, and drain placement on 12/15. Interval CT on 12/21 obtained for continued abdpain was c/f new abscess and decreased size of prior abscess from 4 to 3.1cm. Pt was transferred toO for further care. He underwent open TAC, SBR x 2, small bowel serosal injury repair x 1, primary repair of umbilical hernia, EI formation on 12/24 and was admitted to SICU post operatively for hemodynamic monitoring/pressor requirements. P: Today's plan Wean pressors as able AROBF NPO Okay with TPN and heparin gtt Follow up EP recs Colon perforation Ulcerative colitis (POA): current management balsalazide. Previously: budesonide. Last prednisone: 11/22. Intra abdominal abscess: likely 2/2 colonic perforation, perforation etiology unclear- diverticulitis vs UC. Clinical exam reassuring, will proceed to OR within 12 hours, pending Cardiology input. Last colonoscopy in chart from 2022 with tubular adenomas noted from a localized area of erythematous mucosa and 3- 15mm sessile/semi-pedunculated sigmoid polyps x4 with a 7-10mm cecal polyp. Pt reports repeat cscope 07/2024 he was told noted severe colitis for which he completed a prednisone course. Complexity. Obesity, class I Body mass index is 32.59 kg/m . - Follow with PCP for dietary and lifestyle modifications. Wound Documentation Wound Surgical 12/24/24 0113 Anterior;Midline Abdomen (Active) Date First Assessed/Time First Assessed: 12/24/24112 Primary Wound Type: Surgical Incision Type: midline Incision Closure/Dressing: Gauze;ABD Wound Description: Fascia closed skin open and packed with 1 kerlex roll damp Wound Location Orientat... Any conditions listed below are present on admission unless otherwise specified. . CENTRAL LINES: Central Line LDAs Active Central Line Access Devices Name Placement date Placement time Site Days PICC Line - Double Lumen 12/22/24520 basilic vein (medial side of arm), left 12/22/24520 -- 2 Central Line Indications: No line currently in place If patient has multiple lines, please choose the answers of the next two questions to correlate with the lines listed above in descending order Can line/s be removed today? Select all that apply No line in place at this time Dressing/s Clean/Dry/Intact?: Select all that apply No line currently in place Patient seen with colorectal team, plan of care discussed, and they are in agreement. DANIAL Farah For patients located in or [facility] please page [phone] * AVELINA Nance - 12/23/2024 1:05 PM EDT Discharge Planning Assessment Is the patient able to participate in the assessment?: Yes Care Management Plan SW met with patient at bedside. He reported he lives at home with his . He is well supported byhis family and community; he is independent and anticipates no needs at discharge. His will beproviding transportation home at discharge. Initial Discharge Planning Expected Discharge Disposition: Home Transportation Available for Discharge: Family or Friend Anticipated DME: none Anticipated Services at Discharge: Outpatient follow up Patient Assessment Completed: Initial Legal Next of Kin Does the patient have a Guardian?: No Spouse: Yes Name and Contact information: Bridgette Anish, Adult Child(palomo), List All Adult Children: Yes Name and Contact information: Garima Colon, (4 additional adult children) Parent(s) - List All Living Parents: No Reviewed and Updated in Demographics? : Yes Advanced Care Planning Has the patient completed Advance Directives?: Not Completed Referral to Social Work for Advance Care Planning? : Patient Declines Medication Management Does the patient have prescription insurance coverage? : Yes Is the patient on Anticoagulation? : Yes Provider or Clinic that manages Anticoagulation?: PCP [facility]/pharmacy #[id number] [place] [address] - [address] [address] [facility] [address] Living Environment and Support System Is the patient from a facility or residential?: No Living Environment: House Patient Caregiving Responsibilities: Self, Pet(s) Patient-identified caregiver/support network: Family, Friends Who does the patient identify as a teachable caregiver(s)?: Spouse or Partner Services Does the patient use a home health or hospice agency?: No Current with dialysis?: No Does the patient use any community programs or services?: No Does patient use DME? : cpap, nebulizer, blood pressure monitor Does the patient use oxygen?: No Does patient use medical supplies? : none Anticipated Changes Related to Illness/Injury? : No Initial ADLs Prior to Arrival What is the patient's reported baseline physical functioning prior to this acute illness?: independent What is the patient's reported baseline cognitive functioning prior to this acute illness?: independent Is the patient's baseline functioning changed by this acute illness? : No Concerns with patient being able to care for themselves at home? 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 MAPS >65. Afebrile, on RA with (home) nocturnal CPAP. Pain controlled. NPO currently, denies NV. BM x 4. O: Temp: [97.5 F (36.4 C)-98 F (36.7 C)] 98 F (36.7 C) Pulse (Heart Rate): [77-135] 135 Resp Rate: [16-33] 26 BP: (97-121)/(53-79) 99/64 O2 Sat (%): [95 %-100 %] 97 % Weight: [102 kg (224 lb 14.4 oz)] 102 kg (224 lb 14.4 oz) 06/699 - 12/23 0659 In: 0 Out: 300 [Urine:300] PE: General: NAD, lying in bed Pulm: Respirations easy and non labored Abd: soft and appropriately tender, no rebound or guarding, mild distention, AMY to bulb suction with feculent output Labs: WBC/Hgb/Hct/Plts: 11.94/10.8/36.7/398 (12/23 314) Bun/Creat/Cl/CO2/Glucose: 15/0.88/103/24/74 (12/23 314-12/23 1159) Na/K+/Phos/Mg/Ca: 138/3.6/2.7/2.0/7.8 (12/23 314) A/P: Conrad Oconnell is a 69 y.o. male with history of NICM, HFrEF 35%, COPD no home oxygen, KIM on CPAP, HTN, A fib s/p DCCV 12/08 on eliquis, and ulcerative colitis. Pt presented to OSH on 12/13 with abdominal pain where imaging was c/f acute diverticulitis with adjacent abscess. Pt underwent ex lap, abscess drainage, washout, and drain placement on 12/15. Interval CT on 12/21 obtained for continued abd pain was c/f new abscess and decreased size of prior abscess from 4 to 3.1cm. Pt was transferred to [facility] for further care. Today's Plan Check ESR, CRP Operative planning Follow up Cardiology recs Continue heparin gtt, hold ~ 6 hours prior to OR Ulcerative colitis (POA): current management balsalazide. Previously: budesonide. Last prednisone: 11/22. Intra abdominal abscess: likely 2/2 colonic perforation, perforation etiology unclear- diverticulitis vs UC. Clinical exam reassuring, will proceed to OR within 12 hours, pending Cardiology input. Last colonoscopy in chart from 2022 with tubular adenomas noted from a localized area of erythematous mucosa and 3- 15mm sessile/semi-pedunculated sigmoid polyps x4 with a 7-10mm cecal polyp. Pt reports repeat cscope 07/2024 he was told noted severe colitis for which he completed a prednisone course. 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 Entresto 24-26 BID, Aldactone 25, SGLT-2i. Lasix 40 BID. Pt started on tikosyn during prior admission. This was not resumed at OSH and thus is held pending EP recs since would require repeat drug load Last eliquis 6/3 PM, Continue heparin gtt with hold 6 hours prior to OR COPD (POA): not on home oxygen KIM (POA): on CPAP Oxygen Therapy O2 Sat (%): 97 % O2 Device: room air Oxygen Concentration (%): 28 Continue home medication regimen - TI for trelegy ellipta, prn albuterol Supplemental oxygen as needed to keep oxygen saturation > 92%, wean oxygen as able HOB elevated 30 degrees, OOB as much as possible Aggressive pulmonary toilet, frequent IS, positive pressure treatments and coughing and deep breathing nocturnal CPAP on home settings AOCD, ENOC Baseline Hgb unknown/not in CE, admission Hgb 10.8 No concerns for bleeding currently Monitor CBC daily and transfuse for Hgb < 7 or if symptomatic. Maintain current T&S. Cont heparin gtt Pre diabetes: A1C 6.1 (2024). Holding home dapagliflozin in the acute phase: will resume when appropriate. Acute pain Continue multimodal pain regimen. Oxycodone prn At moderate to high risk for DVT Daily Lovenox/SQH. Ambulate daily, SCD's. Health Education Plan of care discussed with patient. Answered questions, agrees with plan of care Complexity. Hypocalcemia - Continue to monitor and replete. Obesity, class I Body mass index is 33.21 kg/m . - Follow with PCP for dietary and lifestyle modifications. Wound Documentation Any conditions listed below are present on admission unless otherwise specified. . CENTRAL LINES: Central Line LDAs Active Central Line Access Devices Name Placement date Placement time Site Days PICC Line - Double Lumen 12/22/24520 basilic vein (medial side of arm), left 12/22/24520 -- 1 Central Line Indications: No line currently in place If patient has multiple lines, please choose the answers of the next two questions to correlate with the lines listed above in descending order Can line/s be removed today? Select all that apply No line in place at this time Dressing/s Clean/Dry/Intact?: Select all that apply No line currently in place Routine Hospital Care Fall Risk: Assessed for patient fall risk and discussed safety measures during rounding. DVT prophylaxis: SQH/Lovenox Abraham: none Lines: PIV Level of care: PCU Discharge Disposition: TBD. Once medically ready Estimated Discharge date: TBD, current barrier planned surgery this admission Patient seen with colorectal team, plan of care discussed, and they are in agreement. DNAIAL Farah For patients located in or [facility] please page [phone] * Stanislaw Bernal [facility] - 12/23/2024 2:26 AM EDT Department of Pharmacy Outside Facility Transfer Note Patient: Conrad Oconnell Room/Bed: 0830/A Patient has transferred from an outside hospital [facility] the following [facility], antiepileptic, and anticoagulant medications were received by the patient prior to arrival at [facility]: Antimicrobials: Zosyn 3.375 g Q8H with last dose on 12/22/24 @ 1528 Other: Dofetilide - did not receive during admission at outside hospital per [facility] pharmacist Amiodarone 400mg BID until 12/20 Please feel free to contact me with any further questions. Name: Stanislaw Bernal RPH Phone #: [phone] Date/Time: 12/23/2024 2:26 AM [facility] Discharge instructions* Discharge Instr - Activity* Bianka Persaud - 01/03/2025 11:59 AM EDT Activity No Driving for two weeks. No Driving while on pain medications. No lifting over 10 pounds for 6 weeks. No pushing, pulling or straining of abdominal muscles for 6 weeks. Activity as tolerated. Walking is encouraged however no strenuous exercise. You may shower. Do not take a tub bath, go swimming, or use a hot tub until instructed to do so. * Discharge Instr - Diet* DANIAL Farah - 01/04/2025 3:37 PM EDT For the next 6 weeks follow the below diet: Low Fiber Diet A diet low in fiber can help keep your stomach and bowels from being irritated. This diet provides foods that are non-irritating and easily digested. If carefully planned, this diet can provide you with most nutrients you need to be healthy. However, over a long period of time, you may find it hardto eat enough fruits and vegetables. Your diet may also be too low in calcium. Talk to your doctor or dietitian about taking a multivitamin or liquid nutritional supplement. Bread Choose breads without seeds or nuts. Foods allowed: Breads, rolls, pancakes, waffles, and crackers made with enriched, refined white flour Soda crackers Anna Toasts Foods to avoid: Bread containing bran or coarse whole grain Rolls, pancakes, waffles, and crackers made with whole grains Cereals, Pasta, Grains, and Potatoes Choose grain foods with less than 2 grams of dietary fiber per serving. Foods allowed: Refined cooked cereal, such as Cream of Rice, Cream of Wheat, grits, strained oatmeal, Malt-O-Meal Dry cereal, such as cornflakes, puffed rice, Rice Krispies, Honey Smacks, Special K White flour White potatoes, without skin, prepared any way, except fried Mashed sweet potatoes, without skin White rice White pasta Foods to avoid: Whole grain or bran cereal, such as shredded wheat, All Bran, Fiber One, Nutri- Grain, and granola Popcorn Fried potatoes or other substitutes not listed as allowed Brown and wild rice Potato skins Whole wheat pasta products Desserts / Sweets Foods allowed: Home food and sponge cakes Plain cakes with simple frosting Plain cookies Ice cream, sherbet Fruit Whips Gelatin desserts Puddings Custard Sugar Syrup Honey Jelly Molasses Hard candy Foods to avoid: Rich pastries Desserts, which contain nuts, coconut, or fruits that are unapproved All fruit not listed as allowed Jams, preserves, and marmalade Candy with nuts, raisins, or fruits are not allowed Vegetables Foods allowed: Well cooked vegetables Vegetables without skin or seeds Pureed vegetables Vegetable juices Foods to avoid: All raw vegetables, including lettuce Cooked spinach or greens Fruits and Juices Foods allowed: Cooked fruits without skin or seeds Applesauce Pears, peaches Peeled apricots Alice Keiko cherries Ripe banana Ripe avocado Fruit juice without pulp Pureed fruits Foods to avoid: Dried fruit Fruit skin and seeds Pineapple juice Meat and Other Protein Foods Foods allowed: Tender beef, cole, veal, pork Poultry, fish Eggs prepared any way except fried Smooth nut butters (peanut, almond, sunflower seed, etc.) Foods to avoid: Pickled, spiced, smoked meat Shellfish Fried meats, fish, or eggs Tough meats or meats with gristle Sausage Nuts and seeds Beans, peas and lentils Cheese and Milk Products If you are lactose intolerant, avoid milk and foods made with milk. Foods allowed: Cottage cheese Cream cheese Any cheese that has no dried fruits and nuts Yogurt with active cultures Ice cream Note: Include all of these in milk allowance Foods to avoid: Cheese with dried fruits and nuts Yogurt or ice cream with berries, nuts or dried fruits Fats When possible, choose healthier oils like olive or canola oil. Foods allowed: Avocado Butter Cream Margarine Mild salad dressing Vegetable oils Foods to avoid: None Soups Foods allowed: Broth and strained soups made with allowed ingredients Foods to avoid: All other soups Beverages Most people need 8 to 10 cups of fluid each day. If you are lactose intolerant, avoid milk and foods made with milk. Foods allowed: Cow, soy, rice, and almond milk and milk products Choose low fat or fat free milks Coffee Decaffeinated coffee Tea [place] Carbonated beverages Fruit juice (except prune juice) Foods to avoid: All other beverages Miscellaneous Foods allowed: Salt used in moderation Mild spices Gravy Cream sauces Foods to avoid: Rich, highly spiced, or seasoned foods and sauces Fried foods Mitesh Kaplan 2001 - January 13, 2020, [facility]. This handout is for informational purposes only. Talk with your doctor or healthcare team if you have any questions about your care. For more health information, call the [employer] Information at [phone] or email: [email or web address]. * Discharge Instr - Notify* DANIAL Farah - 01/03/2025 11:59 AM EDT For Concerns During Weekend or Evening Hours: -If you have questions or concerns call and ask the friction welding machine operator to have the general surgery chief resident paged. Reminder: [employer] messaging goes unmonitored during evenings and weekends. Any concerns or questions during this time, please call using instructions above. Clinic Office Main Number: [phone] NOTIFY PHYSICIAN: SYMPTOMS WOUND INFECTION - Increase in pain in or around wound - Change in the amount of drainage - Change in the color of drainage - Change in the odor of drainage - Warmth in the tissues around the wound - Red streaks on the skin near the wound - Fever (temperature greater than 101 degrees F) - Incision separates or opens up UNRELIEVED PAIN + - Increased or unrelieved pain NAUSEA/VOMITING + - Nausea and vomiting that continues for more than 24 hours - Not able to keep medicine down - Not able to keep fluids down SYMPTOMS OF DVT + DVT = Deep Vein Thrombus, or Blood Clot -Any Tender, Swollen, or Reddened Areas from Your Groin to Your Heels -Numbness or Tingling In Groin or Calf -The Skin on Your Leg Looks Pale or Blue or It Feels Cold To Touch -Numbness or Tingling In Groin or Calf -Any Shortness of Breath -Chest Pain -Fever or Chills SYMPTOMS OF GI BLEED + Call your doctor or nurse if you have signs of slow blood loss such as: -Black tarry bowel movements -Cold hands and feet -Weakness -Dizzyness Call 911 if you suddenly have signs of blood loss such as: -Vomiting blood -Fast heart rate -Feeling faint or blacking out -Passing bright red blood from your rectum * Discharge Instr - Wound Care* DANIAL Farah - 01/04/2025 3:37 PM EDT Wound Vacuum Dressing Your wound vacuum dressing is to be changed by a home care nurse 3 times a week as instructed. Set vacuum at 125 mmHg continuous negative pressure. Use stomahesive paste in creases if needed to seal the vacuum dressing. If wound vacuum fails to maintain suction for 2 hours, remove old dressing and switch to normal saline wet to dry dressings every 12 hours until vacuum dressing can be restarted. When you return to the clinic to have your wound checked, the clinic nurses will not replace the vacuum dressing. You will need to make arrangements with your homecare agency to have the nurse reapply the dressing after your appointment. Ostomy Care Perform ileostomy care as instructed by enterostomal therapist: Ileostomy: Change pouch 1-2x week and as needed. Remove pouch with water moistened wash cloth (do not use bath wipes) or adhesive remover. Cleanse around stoma with water moistened wash cloth and gently pat dry. Apply a Convatec soft convex #[id number]. Pre-warm pouch in hands. Cut pouch to fit stoma. Use heat of the hand for 1 minute over pouch to ensure seal. Please check pouch often and empty of flatus or stool when 1/3-1/2 full. Empty and measure output. Change pouch when leaking- DO NOT REINFORCE WITH TAPE. Ostomy appliance belt fit: Once the hooks are fastened, the belt should be adjusted so that there'sapprox. enough room to fit two fingers between the belt and the skin. It can be removed while patient is resting or sleeping but is okay to be worn at all times. Ostomy Care Measure your urine and stool each day and add up in a 24 hour period Scenario 1 Urine more than 1200 cc and Stool Less than 1200 cc Keep up the good work. Everything is looking good. Scenario 2 Urine LESS than 1200 cc and Stool less than 1200 cc Your stool output is good but your urine output is low. You are at risk for dehydration. What to do: Drink an extra 1000 cc or four 8-ounce cups of fluid over the next 24 hours. Best to drink sugar free sports drinks like Gatorade or Powerade to replace electrolytes in your body. Keep up your usual eating and drinking and take your medicines as ordered. Scenario 3 Urine more than 1200 cc and Stool MORE than 1200 cc Your urine output is okay but your stool output is high. You are at risk for dehydration. What to do: Start or adjust your Imodium (loperamide). If you are already taking Imodium, increase your dose by2 tablets (4 mg) in 24 hours. If you are already taking 12 tablets (24 mg) in 24 hours, call the office today. Do not take more than 12 tablets in 24 hours. If you have not been taking Imodium, start taking 1 tablet 3 times a day, for a total of 6 mg a day. Scenario 4 Urine LESS than 1200 cc and Stool MORE than 1200 cc Your urine output is too low and your stool output is too high. You are at HIGH risk for dehydration. What to do: Drink an extra 1000 cc or four 8-ounce cups of fluid over the next 24 hours. Best to drink sugar free sports drinks like Gatorade or Powerade to replace electrolytes in your body. Start or adjust your Imodium (loperamide). If you are already taking Imodium, increase your dose by2 tablets (4 mg) in 24 hours. If you are already taking 12 tablets (24 mg) in 24 hours, call the office today. Do not take more than 12 tablets in 24 hours. If you have not been taking Imodium, start taking 1 tablet 3 times a day, for a total of 6 mg a day. Use the chart below to keep track of your output of urine and stool. Stool output less than 1200 cc over 24 hours Urine output more than 1200 cc in 24 hours Date Amount Total Date Amount Total Drain/Tube Care with Flushing- ABSCESS DRAIN Change the dressing around your abcess drain tube each day or as needed to keep it dry. Wash your hands well with soap and water before and after doing your tube care. Flush the drain with 10 ml of sterile normal saline 2 to 3 times each day or more often if the drainage becomes very thick or hard to drain. Empty, measure and record the amount of drainage 1 or 2 times each day or more often if needed. You have more than one drain so be sure to zehra the drainage amounts from each drain, such as drainA or drain B. Call your doctor if you have more pain or you have a morning temperature greater than 101degrees F. documented in this encounter[facility] Procedure note* Isak Thompson DO - 12/30/2024 4:16 PM EDTAssociated Order(s): GENERAL PROCEDURE INTERVENTIONAL RADIOLOGY BRIEF PROCEDURE NOTE PROCEDURE PERFORMED BY: Oc Smith MD (Attending), Isak Thompson DO (Resident) ATTENDING: Dr. Smith PROCEDURE DATE: 12/30/2024 4:16 PM PRE PROCEDURE DIAGNOSIS: History of intra-abdominal collection seen on CT presenting for drainage. POST PROCEDURE DIAGNOSIS: History of intra-abdominal collection seen on CT presenting for drainage. PROCEDURE: CT guided intra-abdominal collection drainage. CONSENT: Informed consent was obtained prior to the procedure after discussion of the risks, benefits, and alternatives and expected outcomes were discussed with the patient; consent placed in chart.The possibilities of reaction to medication, pulmonary aspiration, bleeding, infection, the need for additional procedures, failure to diagnosis a condition, and creating a complication requiring transfusion or operation were discussed with the patient. The patient concurred with the proposed plan,giving informed consent. UNIVERSAL PROTOCOL: Preprocedure verification is complete- patient verified and consents confirmed. ANESTHESIA: Moderate Sedation ESTIMATED BLOOD LOSS: <2mL FINDINGS: Hypodense collection in the anterior abdomen as seen on the recent CT. The collection wasaccessed with CT guidance with return of serosanguinous fluid. Completion imaging confirms appropriate position with the pigtail of the drain in the collection. CONDITION: Stable. Patient tolerated procedure well. COMPLICATIONS: None. SPECIMEN: Approximately 3mL serosanguinous fluid sent for culture IMPRESSION/PLAN: CT guided intra-abdominal collection drainage, with placement of an 8 Salvadorean M- drain to gravity. Cosigned by Oc Smith MD at 12/30/2024 6:46 PM EDT [facility] Consult note* Angelina Pagan MD - 12/30/2024 9:13 AM EDT Images from the original note were not included. Interventional Radiology Biopsy Consult Note [facility] [phone] - Interventional Radiology Scheduling [phone] [facility] program checker [phone] - [facility] program checker [phone] Admission Date: 12/22/2024 Referring Provider // Service: Barbara Call MD // COLORECTAL SURGERY Reason for Consult: Intraabdominal abscess aspiration and drain placement. HPI: Conrad Oconnell is a 69 yo M with h/o HTN, HPL, CAD, HFrEF, AF, KIM, COPD, and UC who presented with perforated diverticulitis, s/p washout and drain placement 5/28, c/b c/f uncontrolled perforation/leak, s/p open TAC/end ileostomy, SBR x 2, and UHR 12/24. Postop course c/b AF RVR leading to ICU re- admission 12/27. IR consulted for intraabdominal abscess aspiration and drain placement. History: Past Medical History: Diagnosis Date Congestive heart failure COPD (chronic obstructive pulmonary disease) Essential hypertension, benign Longstanding persistent atrial fibrillation KIM (obstructive sleep apnea) Ulcerative colitis Past Surgical History: Procedure Laterality Date COLECTOMY TOTAL W/ ILEOSTOMY OR ILEOPROCTOSTOMY OPEN N/A 12/23/2024 Laterality: N/A; Surgeon: Barbara Call MD; Location: [facility] MAIN OR SINUS SURGERY 2020- polypectomy No Known Allergies Barriers to Consent: None Sedation Anticipated: Moderate sedation Vitals Blood pressure 126/57, pulse 79, temperature 97.7 F (36.5 C), temperature source Oral, resp. rate 17, height 1.753 m (5' 9.02), weight 103.4 kg (227 lb 15.3 oz), SpO2 100%. Pertinent Labs/Data: Lab Results Component Value Date/Time HGB 7.5 (L) 12/29/2024 11:56 PM PLATELET 544 (H) 12/29/2024 11:56 PM INR 1.2 (H) 12/29/2024 11:56 PM SODIUM 140 12/29/2024 11:56 PM POTASSIUM 3.7 12/29/2024 11:56 PM POTASSIUM 4.1 12/24/2024 02:29 AM GFR 89 12/29/2024 11:56 PM Pertinent Imaging: CT ABDOMEN/PELVIS WITH CONTRAST Narrative: EXAM: CT ABDOMEN/PELVIS WITH CONTRAST, 12/29/2024 15:03 PM COMPARISON: CT abdomen pelvis dated December 13, 2024. CLINICAL INDICATIONS: assess for intra abominal abscess. IV contrast TECHNIQUE: CT scanning was performed of the abdomen and pelvis following the administration of intravenous contrast. PROTOCOL: Standard. CONTRAST: iohexol (OMNIPAQUE) 350 MG/ML injection 1-171 mL; Route of Administration: Intravenous; Dose: 110 mL. FINDINGS: Lung Bases: Small bilateral pleural effusions and compressive basilar atelectasis. Liver: Normal. Gallbladder: Normal. Bile Ducts: Normal in caliber. Spleen: Normal. Pancreas: Normal. Adrenals: Normal. Right Kidney: Normal size and enhancement without hydronephrosis. Left Kidney: Normal size and enhancement without hydronephrosis. Gastrointestinal: Normal stomach. Enteric tube terminates within the distal gastric body. 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 No evidence of anastomotic dehiscence or leak. Surgical drain extends through the left mid abdomen terminating in the right lower quadrant. Multiple dilated inflamed small bowel loops scattered throughout the abdomen. Moderate edema and inflammation scattered throughout the abdomen with multiple peripheral enhancing fluid collections. Notable collections described below: * Dominant collection in the anterior right mid abdomen measuring 7 x 4 x 2.8 cm (series 2, image 58 and series 4, image 30). * Partially organized peripheral enhancing mesenteric fluid collections measuring up to 3.2 x 4.8 x 3.6 cm (series 6, image 135). Peritoneum/retroperitoneum: Mild ascites. Fluid collections described above. Minimal pneumoperitoneum. Lymph nodes: No abdominopelvic adenopathy. Vasculature: Nonaneurysmal abdominal aorta with moderate calcified atherosclerosis. Patent portal, splenic, and superior mesenteric veins. Bladder: Moderate distention with internal air likely related to recent catheterization. Pelvic Organs: Normal. Body Wall: Ventral abdominal wall surgical changes. Bones: No suspicious osseous lesions. Impression: IMPRESSION: Moderate abdominal inflammation with multiple peripheral enhancing fluid collections concerning for abscesses. Surgical drain does not traverse or terminate within the fluid collections. No apparent anastomotic dehiscence or perforation. Reactive small bowel inflammation and ileus. CARDIOGRAM LIMITED/FOLLOWUP Normal left ventricular size. Global LV dysfunction. EF 35%. Normal right ventricular size and function. No significant valvular disease identified. Impression/Plan: Conrad Oconnell is a 69 yo M with h/o HTN, HPL, CAD, HFrEF, AF, KIM, COPD, and UC who presented with perforated diverticulitis, s/p washout and drain placement 12/15, c/b c/f uncontrolled perforation/leak, s/p open TAC/end ileostomy, SBR x 2, and UHR 12/24. Postop course c/b AF RVR leading to ICU re-admission 12/27. IR consulted for intraabdominal abscess aspiration and drain placement. Small intraabdominal fluid collection is noted on recent CT A/P. Although feasibility of drainage is uncertain, we are willing to proceed with an attempt. Plan is to proceed with an attempt CT-guidedaspiration and drain placement for intraabdominal abscess. Procedure to be scheduled pending availability of the imaging suite. Please make patient NPO at midnight prior to the procedure Hgb 7.0 or greater, INR < 1.5-1.8 and platelets > 50k Please hold Heparin 4-6hrs pre-procedure. Okay to resume 6-8hrs post-procedure Blood pressure goal: 160s/90 or lower Note: procedure subject to cancellation or re-scheduling should threshold coagulation labs not be met or patient found to be hemodynamically unstable at the time of the procedure. Consult discussed with Dr. Anselmo Galeana from the requesting team on 12/30/2024. Consult reviewed with IR Attending Dr. Luis Renae who agrees with the above plan. For scheduling questions, please call [phone] / [phone]. Thank you for allowing Interventional Radiology to participate in this patient's care. Angelina Pagan MD; 12/30/2024, 9:13 AM Please IHIS message or page [phone] with questions. Important Notes Procedures are performed with either moderate sedation or anesthesia services. Both require the patient to be NPO (which includes tube feeds). Patients will need to lie flat comfortably for the duration of the procedure. Please be aware that patients requiring anesthesia services will require additional coordination which may increase the time from consult to procedure. Cosigned by Oc Smith MD at 12/30/2024 6:46 PM EDT * Virginia White RD - 12/24/2024 3:41 PM EDT Consults Parenteral Nutrition Consult Recommendation : PN is approved to start tonight. Pl see complete assessment and recommendation formacro/micro nutrient regimen below. PN Indication: ileus Line Access: Yes;PICC Recommendations and Plan of Care: Recommend to initiate ClinimixE using Clinimix E 4.25/10 @ 40mL/hr + 250mL Clinolipid (990kcal, 41gprotein, 96g CHO) PN Calculator Base formula: Day 2 Day 3 Goal Dextrose 70% 100 g 200 g 275 g Amino Acid (Travasol 10%) 55 g 100 g 130 g Fish Oil Fat Emulsion (SMOFLIPID) 20% 25 g 55 g 65 g Daily Total Volume 960 mL 1920 mL 95 mL Infusion Rate 40 mL/hr 80 mL/hr 2280 mL/hr Energy: 2105 Kcal/day 27 Kcal/kg/day - 77 kg Protein: 130 Gms/day 1.7 Gms/kg/day - 77 kg IVF + PN @ 100 ml/h Pl add 10 mg Zinc and 80 mcg Se to custom TPN daily. Will add 100 mg Thiamine x 7 days. Monitor for refeeding Add Zn, Se, Cu and Vitamin D levels with am labs Will monitor return of bowel function and assist with transition as indicated 69 y.o. with a history of HTN/HLD, CAD c/b HFrEF (EF 35%), persistent afib/aflutter s/p DCCV (12/08/24) on tikosyn and eliquis, KIM, COPD, UC (on budesonide and pred 10mg daily) who presents with perforated diverticulitis s/p ex lap, washout, AMY drain placement on 12/15, briefly admitted to SICU for a few days afterwards for close hemodynamic monitoring. Repeat CTAP 12/21 demonstrated decreased 3.1 from 4cm abscess but a new 8.2cm abscess adjacent to AMY tract. In afib w/ RVR, normotensive earlier today. Now s/p exploratory laparotomy, TAC/EI, SBR x2, serosal injury repair, AMY placement 12/24 Past Medical History: Past Medical History: Diagnosis Date Congestive heart failure COPD (chronic obstructive pulmonary disease) Essential hypertension, benign Longstanding persistent atrial fibrillation KIM (obstructive sleep apnea) Ulcerative colitis Past Surgical History: Past Surgical History: Procedure Laterality Date COLECTOMY TOTAL W/ ILEOSTOMY OR ILEOPROCTOSTOMY OPEN N/A 12/23/2024 Laterality: N/A; Surgeon: Barbara Call MD; Location: [facility] MAIN OR SINUS SURGERY 2020- polypectomy Nutrition History:Pt was seen, receiving breathing treatment. at bedside. Stated pt weighed 244# prior to increasing lasix, after the loss of water weight pt was ~227-228#. Pt has not had more than bites of food since 12/13. Pt was started on PN, received one day @ OSH. Discussed with ICU team on rounds and is starting PN tonight. Diet Order: NPO Height: 5' 9 Weight: 100 kg IBW : 73 kg % IBW: 137 BMI 32.5 kg/m Weight for BMI of 25 77 kg Weight History: Wt Readings from Last 3 Encounters: 12/24/24 99.8 kg (220 lb) 12/09/24 103.1 kg (227 lb 6.4 oz) 12/02/24 110.7 kg (244 lb 1.6 oz) Estimated Nutritional Needs based on weight of 77 kg Estimated Energy Needs: 3705-9800 kcal/day (25-30 kcal/kg) Estimated protein Needs: 115-155 g/day (1.5 -2 g/kg) GI: Last Bowel Movement: 12/23/24 Skin: Luis Score: 17 Edema 2-3+ Scheduled Meds: Acetaminophen 650 mg Oral Q8H [Held by provider] budesonide 9 mg Oral Daily eamogyumbw-rwfhyosglehsog-nbmnnsqjmw 1 puff Inhalation BID fish oil fat emulsion 250 mL Intravenous Q24H Gabapentin 200 mg Oral TID Insulin regular Subcutaneous Q6H Ipratropium 2 spray Nasal BID Naloxone 0.1 mg Intravenous See admin instructions Or Naloxone 0.4 mg Intravenous See admin instructions piperacillin-tazobactam 4.5 g Intravenous Q8HNS predniSONE 10 mg Oral Daily Continuous Infusion : amiodarone 0.5 mg/min (12/24/24 1130) heparin 15 Units/kg/hr (12/24/24 1130) HYDROmorphone Lactated ringers 100 mL/hr at 12/24/24 1130 Lactated ringers norepinephrine 0.01 mcg/kg/min (12/24/24 1130) Parenteral Nutrition Clinimix Labs: Bun/Creat/Cl/CO2/Glucose: 13/1.05/106/22/172 (12/24 0405-12/24 1105) Na/K+/Phos/Mg/Ca: 138/4.2/5.3/2.8/-- (12/24 404) WBC/Hgb/Hct/Plts: 27.10/12.6/42.5/663 (12/24 404) Lab Results Component Value Date GLUCOSE 172 12/24/2024 GLUCOSE 156 12/24/2024 GLUCOSE 155 12/24/2024 GLUCOSE 137 12/24/2024 GLUCOSE 101 12/24/2024 GLUCOSE 102 12/23/2024 Lab Results Component Value Date ALT 15 12/24/2024 AST 25 12/24/2024 ALKPHOS 49 12/24/2024 BILITOTAL 0.6 12/24/2024 BILIDIRECT 0.3 (H) 12/24/2024 Lab Results Component Value Date TRIG 169 (H) 12/07/2024 Lab Results Component Value Date CRP 160.67 (H) 12/23/2024 Lab Results Component Value Date HGBA1C 6.1 (H) 12/07/2024 Nutrition Focused Physical Exam: Nutrition Focused Physical Exam Completed?: deferred Reason For Deferral: Pt is in pain Malnutrition Statement: Does the patient meet criteria for malnutrition: Unable to assess. Pt is at high risk d/t inadequate intake since 12/13 and wt loss 3% wt loss since 12/13 *Based on [employer] and [employer] Indicators to Diagnose Malnutrition (AAIM) criteria (2012) Verbal order from: Dr. Nimesh Alonzo Pager: [phone] Lpc: Virginia White MS, RD [facility] [phone] * Rosita Fields MD - 12/24/2024 4:35 AM EDTAssociated Order(s): IP CONSULT TO SICU SICU CONSULT NOTE Patient Name: Conrad Oconnell Date of Evaluation: 12/24/2024 Attending: Dr. Lind Patient admitted to the Surgical Intensive Care Unit (SICU) for continued care and evaluation by the SICU service. Please refer to same day Progress Note for plan of care. Rosita Fields MD General Surgery PGY2 Pager [phone] Cosigned by Michael Lind MD at 12/24/2024 4:56 AM EDT * Fausto Carvajal MD - 12/23/2024 8:41 AM EDTAssociated Order(s): IP CONSULT TO CARDIOLOGY - EP Cardiac Electrophysiology Consultation Conrad Oconnell [id number] Reason for consult: atrial fibrillation with RVR IMPRESSION & RECOMMENDATIONS: # Longstanding Persistent Atrial Fibrillation s/p DCCV: C2V 3. He is admitted for subtotal colectomy in the setting of colonic perforation secondary to UC. Unfortunately, his atrial fibrillation has recurred. Rates have been relatively well controlled in the 100s-110s. In the pre-operative period, would recommend no additional interventions to restore rhythm. He should be started on amiodarone 200mg BID now, both for additional intraoperative rate control, and to bridge to outpatient ablation. Given the relatively quick recurrence of his atrial fibrillation, the patient would prefer to pursueablation. - Start amiodarone 200mg BID - Continue metoprolol XL 50mg daily - Resume anticoagulation when safe from a surgical perspective - Outpatient follow up for AF ablation -- Fausto Carvajal MD, MS Fellow, Cardiovascular Medicine Staffed with Dr. Apple DATA: ECG: all ECGs from this admission that are in EKG [place] are personally reviewed and interpreted. Historical ECGs reviewed as needed. Telemetry: reviewed Rads: reviewed Cardiac Studies: All echocardiograms, CMRs from this admission reviewed. Historical echos, CMR, caths reviewed on anas needed basis. HPI: 69 y.o.male hx of long standing persistent atrial fibrillation s/p DCCV and tikosyn, chronic LBBB, HFrEF, HTN, KIM, and UC admitted on 12/22/2024 as a transfer from OSH for operative management of colonic perforation with intra- abdominal abscesses. The patient states that he has been largely asymptomatic regarding his atrial fibrillation. He denies any chest pain, palpitations, lightheadedness, syncope, or presyncope. He is largely sedentary at baseline, but denies any significant change in his functional capacity. He states that he can walk 2-3 blocks before becoming winded. The patient statesthat within days of his previous discharge on 12/09, during which he underwent DCCV for his atrial fibrillation, he had recurrence of a fib. He is interested in pursuing more durable rhythm control. He states that he has been adherent to his tikosyn and anticoagulation as an outpatient; however, histikosyn was held at the OSH and he's been on and off of his eliquis due to surgeries. ROS: Negative except as noted in HPI. HISTORY: PAST MEDICAL HISTORY: He has a past medical history of Congestive heart failure, COPD (chronic obstructive pulmonary disease), Essential hypertension, benign, Longstanding persistent atrial fibrillation, KIM (obstructive sleep apnea), and Ulcerative colitis. He has no past medical history of CAD (coronary artery disease), Diabetes mellitus, Hyperthyroidism, Hypothyroidism, Liver disease, GA (myocardial infarction), Renal disease, Stroke, or TIA (transient ischemic attack). SOCIAL HISTORY: He reports that he quit smoking about 19 years ago. His smoking use included cigarettes. He has never used smokeless tobacco. He reports that he does not currently use alcohol. No history on file fordrug use. FAMILY HISTORY: His family history includes Breast Cancer in his mother; Cancer- Other in his maternal grandfather,maternal grandmother, paternal grandfather, and paternal grandmother; Colorectal Cancer in his father; Lung Cancer in his mother. He He indicated that his mother is . He indicated that his father is . He indicated that the status of his maternal grandmother is unknown. He indicated that the status of his maternal grandfather is unknown. He indicated that the status of his paternalgrandmother is unknown. He indicated that the status of his paternal grandfather is unknown. PAST SURGICAL HISTORY: His has a past surgical history that includes sinus surgery. ALLERGIES: No Known Allergies HOME MEDICATIONS: Medications Prior to Admission Medication Sig Dispense Refill Last Dose/Taking Albuterol (2.5 MG/3ML) 0.083% inhalation solution NEEDED 1 VIAL PER NEBULIZER 3 TIMES A DAY NEEDED balsalazide 750 MG capsule Take 3 capsules by mouth 3 (three) times a day. budesonide [address] Particles capsule EC Take 3 capsules by mouth daily. dapagliflozin 10 MG tablet Take 1 tablet by mouth daily. 30 tablet 3 Dofetilide 250 MCG capsule Take 1 capsule by mouth every 12 hours. If 3 doses are missed, contact the prescribing rn float as soon as possible. 60 capsule 5 Eliquis 5 MG tablet Take 1 tablet by mouth 2 times daily. furOSEmide 40 MG tablet Take 1 tablet by mouth 2 times daily (take before meals). 60 tablet 3 Ipratropium 0.03 % Solution 2 sprays by Nasal route 2 times daily. Metoprolol succinate 50 MG tablet XL Take 1 tablet by mouth every 12 hours. 60 tablet 3 Potassium chloride 20 MEQ Tab CR tablet Take 2 tablets by mouth daily. 30 tablet 3 predniSONE 10 MG tablet Take 1 tablet by mouth daily. sacubitril-valsartan 24-26 MG tablet Take 1 tablet by mouth every 12 hours. 60 tablet 3 Spironolactone 25 MG tablet Take 1 tablet by mouth daily. 30 tablet 3 Trelegy Ellipta 100-62.5-25 MCG/ACT Aerosol Powder, breath activated inhaler Inhale 1 puff daily. CURRENT MEDICATIONS: budesonide 9 mg Oral Daily [Held by provider] rcxsrhahuh-yypnxdnunlnvvk-mncbawsawi 1 puff Inhalation BID Ipratropium 2 spray Nasal BID Metoprolol 50 mg Oral Q6H piperacillin-tazobactam 4.5 g Intravenous Q8HNS potassium phosphate 15 mmol Intravenous Once predniSONE 10 mg Oral Daily sulfaSALAzine 750 mg Oral Q8H heparin 12 Units/kg/hr (12/23/24 0743) Lactated ringers 50 mL/hr (12/23/24 0052) OBJECTIVE: Temp: [97.5 F (36.4 C)-97.8 F (36.6 C)] 97.8 F (36.6 C) Pulse (Heart Rate): [77-135] 124 Resp Rate: [16-26] 26 BP: (97-121)/(53-79) 112/57 O2 Sat (%): [96 %-100 %] 97 % Weight: [102 kg (224 lb 14.4 oz)] 102 kg (224 lb 14.4 oz) Physical Exam General appearance - NAD Chest - normal rise and fall Heart - irregularly irregular rhythm with tachycardia Abdomen - distended, mild diffuse tenderness. Extremities - no edema Skin - no generalized rash. Psych - mood appropriate Lab Results Component Value Date SODIUM 138 12/23/2024 POTASSIUM 3.6 12/23/2024 GLUCOSE 89 12/23/2024 CHLORIDE 103 12/23/2024 CO2 24 12/23/2024 BUN 15 12/23/2024 CREATSERUM 0.88 12/23/2024 TSH 1.587 12/07/2024 Lab Results Component Value Date WBC 11.94 (H) 12/23/2024 HGB 10.8 (L) 12/23/2024 HCT 36.7 (L) 12/23/2024 PLATELET 398 (H) 12/23/2024 MCV 81.4 12/23/2024 No results found for: TROP, BNP Lab Results Component Value Date PT 17.3 (H) 12/22/2024 PTT 31.4 12/23/2024 INR 1.4 (H) 12/22/2024 Cosigned by Etienne Apple MD at 12/23/2024 5:56 PM EDT Associated attestation - Etienne Apple MD - 12/23/2024 5:56 PM EDT EP Staff: Patient EP plan progressing well. I discussed plan with patient and/or family/staff and answered questions. Physical Exam: Constitutional: Alert and oriented x 3 Eyes: Extraocular motions are normal. Musculoskeletal: No edema. Neurological: Nonfocal Skin: Skin is warm and dry. Psychiatric: Affect normal. I have independently seen and examined the patient and agree with the history, physicial, assessment and plan of the [employer] as addended by me. Etienne Apple MD12/23/2024 [facility] Nurse Note* Amita Westbrook RN - 12/24/2024 3:53 AM EDT Report called to SICU auditor in charge. Extubated, VSS, on monitor transported by anesthesia and surgery team. ICU check list complete. documented in this [facility] History and physical note* Italo Rasmussen MD - 12/22/2024 11:18 PM EDT CRS H&P HPI: Conrad Oconnell is a 69 y.o. male with a PMH of long-standing persistent Afib (on metop 50 BID), HFrEF 2/2 rate uncontrolled Afib (LVEF reportedly 40% at OSH echo), COPD, Ulcerative Colitis, HTN, and KIM. He was admitted on 12/13/24 at the OSH with a perforated sigmoid diverticulitis and underwent ex-laparoscopy with drainage of abscess and washout on 12/15 with drain placement. Per pt he spent 4 days in the ICU at which point he started to have increased abd pain and gaseous distention. A repeat CT was ordered on 12/21 which showed a slight decrease in abscess size (3.1 cm from 4 cm) and a new hypodense rim enhancing collection in the mid abd that was 8.2 cm c/f a new abscess.. AMY drain output was feculent at this time. Pt has been in a.fib with RVR throughout his hospital stay which was attempted to be controlled with amiodarone, lanoxin, and metop. He is transferred to [facility] for further management in the setting of worsening intra- abdominal abscesses. The patient's past medical, surgical, family, and social history were reviewed and are listed below: Past Medical History: Diagnosis Date Congestive heart failure COPD (chronic obstructive pulmonary disease) Essential hypertension, benign Longstanding persistent atrial fibrillation KIM (obstructive sleep apnea) Ulcerative colitis Past Surgical History: Procedure Laterality Date SINUS SURGERY 2020- polypectomy (Not in an outpatient encounter) No Known Allergies Social History Socioeconomic History Marital status: Spouse name: Not on file Number of children: Not on file Years of education: Not on file Highest education level: Not on file Occupational History Not on file Tobacco Use Smoking status: Former Current packs/day: 0.00 Types: Cigarettes Quit date: 2005 Years since quittin.4 Smokeless tobacco: Never Vaping Use Vaping status: Never Used Substance and Sexual Activity Alcohol use: Not Currently Drug use: Not on file Sexual activity: Not on file Other Topics Concern Not on file Social History Narrative Not on file Social Drivers of Health Financial Resource Strain: Not on file Food Insecurity: No Food Insecurity (12/07/2024) NCSS - Food Insecurity Worried About Running Out of Food in the Last Year: No Ran Out of Food in the Last Year: No Transportation Needs: No Transportation Needs (12/07/2024) NCSS - Transportation Lack of Transportation: No Physical Activity: Not on file Stress: Not on file Social Connections: Not on file Personal Safety: Not At Risk (12/07/2024) NCSS - Interpersonal Safety Feels Physically and Emotionally Safe: Yes Physically Hurt by Someone: No Humiliated or Emotionally Abused by Someone: No Housing Stability: Not At Risk (12/07/2024) NCSS - Housing/Utilities Has Housing: Yes Worried About Losing Housing: No Unable to Get Utilities: No Family History Problem Relation Age of Onset Breast Cancer Mother Lung Cancer Mother Colorectal Cancer Father Cancer- Other Maternal Grandmother Cancer- Other Maternal Grandfather Cancer- Other Paternal Grandmother Cancer- Other Paternal Grandfather Review of Systems: Constitutional: No fevers, chills, or night sweats. Eyes: No changes in vision. ENT: No changes in hearing. No rhinorrhea or otorrhea. Cardiac: No chest pain, chest pressure, palpitations, or dyspnea Pulmonary: No cough or shortness of breath. Gastrointestinal: No abdominal pain. No diarrhea or constipation. No nausea/vomiting. Genitourinary: No urinary hesitancy, urgency, or frequency. Skin: No rashes or sores. Musculoskeletal: No muscle weakness. Neurologic: No weakness, numbness, or paresthesias. Psychiatric: No changes in mood. Hematologic: No easy bruising or bleeding. Endocrine: No heat or cold intolerance. No hot flashes, flushing or sweating episodes. Physical Exam: Vitals: 12/22/24 2257 BP: 121/79 Pulse: 77 Resp: 16 Temp: 97.7 degrees F (36.5 degrees C) TempSrc: Oral SpO2: 100% There is no height or weight on file to calculate BMI. General: No acute distress. Alert and oriented x 3. HEENT: Sclerae anicteric. Mucous membranes moist. Cardiac: Regular rate and rhythm. Pulmonary: No increased work of breathing. Abdomen: Soft, mildly distended, tender to palpation. Gu: Deferred. Extremities: No edema. Warm and well perfused. Skin: Warm, dry, and intact. No jaundice. Neurologic: No focal deficits. Psych: Appropriate, normal affect. Drains: 1 AMY with dark brown output Labs: Lab Results Component Value Date BILITOTAL 1.0 12/07/2024 BILIDIRECT 0.3 (H) 12/07/2024 ALBUMIN 3.5 12/07/2024 ALT 31 12/07/2024 AST 32 12/07/2024 ALKPHOS 46 12/07/2024 Imaging: No orders to display Assessment & Plan: Conrad Oconnell is a 69 y.o. male with a PMH of long-standing persistent Afib (on metop 50 BID), HFrEF 2/2 rate uncontrolled Afib (LVEF reportedly 40% at OSH echo), COPD, Ulcerative Colitis, HTN, and KIM. He was admitted on 12/13/24 at the OSH with a perforated sigmoid diverticulitis and underwent ex-laparoscopy with drainage of abscess and washout on 12/15. [address] was ordered on 12/21 showed a new hypodense rim enhancing collection in the mid abd that was 8.2 cm c/f a new abscess. - Start IV zosyn - Cards consult for A.fiib w/ RVR and pre-op eval - NPO with meds - Chem/CBC now - 5mg metop IV for a.fib RVR Italo Rasmussen MD Cosigned by Barbara Call MD at 01/05/2025 9:28 PM EDT [facility] Discharge summary Author Zechariah Plasencia [facility] Note Date/Time December 22, 2024 5:53p m [facility] Medical Records Department [address] [place] [address] Discharge Summary 12/22/24 1747 MR#: [id number] Acct: [id number] Name: CONRAD OCONNELL Rep #:[id number] : 1955 69 From: Zechariah Plasencia DO PCP: Dr. Zechariah Siddiqui MD Status:ADM IN [facility] Providers Date of Admission: 12/13/24 Primary Care Physician: Dr. Zechariah Siddiqui MD Consultations 12/13/24 21:01 Consult: General Surgery Routine Consulting Provider: Delano Harris Reason for Consult: Diverticulitis with abscess EMERGENT Consult: Yes MD Notified: Yes Date Notified: 12/13/24 Time Notified: 20:31 Method of Notification: ED Physician Initiated 12/14/24 06:36 Consult: Cardiology Routine Consulting Provider: [facility] Reason for Consult: afib RVR EMERGENT Consult: No Notified: Yes Date Notified: 12/14/24 Time Notified: 06:36 Method of Notification: Verbal 12/15/24 11:23 Consult: Manager Occupational / Pulmonary Medicine Routine Consulting Provider: [facility] Reason for Consult: diverticulitis w/ abscess, afib w/ rvr w/ borderline BP EMERGENT Consult: No Notified: Yes Date Notified: 12/15/24 Time Notified: 11:23 Method of Notification: Verbal Reason For Visit: DIVERTICULITIS WITH ABSCESS AFIB RVR Diagnosis Discharge Diagnosis (1) Diverticulitis: Status: Acute Code(s): K57.92 - Diverticulitis of intestine, part unspecified, without perforation or abscess without bleeding Plan: Sigmoid diverticulitis with abscess General Surgery following. CT abdomen pelvis on admit showed acute sigmoid diverticulitis with an adjacent 4 cm abscess formation. S/p exploratory laparoscopy with drainage of abscess, washout and drain placement with surgery on 12/15. Patient tolerated procedure well. Slowly improving and is passing flatus. Repeat CT showed that the previous abscess slightly decrease and drain tip slightly lateral to abscess. Now new hypodense collection w rim enhance in the mid abdomen measuring up to 8.2cm Continue IV pip/tazo. Continue symptom control with IV pain and nausea medications as needed. NPO. TPN and PICC ordered. Reviewed CXR post PICC placement, Left sided PICC above the RA. OK to use PICC line. DW Dr. Rivera, pt needs surgery. He discussed with the patient, and given the complexity and potential for colostomy reversal, pt would prefer to go to tertiary facility. Patient requesting [facility] given his history and [facility] established at [facility]. I recommended Dr. Rivera initiate the transfer to more easilydiscuss the findings with the surgical service. He agreed and would initiate thecalls. (2) Atrial fibrillation with RVR: Status: Acute Code(s): I48.91 - Unspecified atrial fibrillation Plan: Cardiology following. Follows with cardiology EP in [place]; completed Tikosynloading followed by cardioversion there last week. Unfortunately was only in sinus rhythm for 2 days before going back into A-fib. Was in A-fib with RVR on arrival here. Echo 12/14 showed moderately dilated LV, EF 35 to 40%, no other abnormalities andstable from previous. Cardiology DC digoxin, change metoprolol tartrate to succinate 50 BID, continue amiodarone 400 BID. Now off amiodarone gtt. Stop apixaban and restart heparin gtt given new findings of (3) Superficial venous thrombosis of arm: Status: Acute Code(s): I82.619 - Acute embolism and thrombosis of superficial veins of unspecified upper extremity Plan: in RUE. Preliminary US confirms this (formal read pending) Supportive mgmt. Plan Chronic conditions: * History of HFrEF, hypertension? Follows with cardiology in [place]. Last echo in 2022 showed EF 40%. Repeat echo on 12/14 as noted above with no change from previous. Lasix had been held for several days with borderline low blood pressures but patient weight was increasing and she appeared more volume overloaded with slightly worsening oxygen requirements. Started on IV Lasix 40 mg twice daily on 12/18 with good urine output; will continue this through 12/19 and plan to resume home p.o. Lasix 40 mg daily on 12/20. Per cardiology recommendations, will start Entresto at low-dose on 12/19. Continue to monitor closely. * Class I obesity with KIM? BMI 33 on admit. Encouraged weight loss. Continue CPAP at night and with naps. DVT prophylaxis: Not indicated, as already anticoagulated. Greater than 60 minutes of which greater than 50 the time was discussing with the patient at bedside about CAT scan findings, need for n.p.o. status, SVT, need for TPN and PICC line. Also, remainder of the time was discussing with specialists (cardiology and surgery). Medications at Discharge Home Medications ascorbic acid (vitamin C) 500 mg tablet 2 gm PO DAILY general health 05/05/15 fluticasone fur. 100 mcg-umeclid 62.5 mcg-vilant 25 mcg inhalat.powder 1 ea inhalation DAILY breathing 09/27/20 apixaban 5 mg tablet (Eliquis) 5 mg PO BID blood thinner 03/20/23 albuterol sulfate 2.5 mg/3 mL (0.083 %) solution for nebulization 2.5 mg inhalation TID PRN PRN bronchospasm 12/13/24 balsalazide 750 mg capsule 2,250 mg PO TID ULCERATIVE COLITIS 12/13/24 dofetilide 250 mcg capsule 250 mcg PO Q12H heart 12/13/24 ipratropium bromide 21 mcg (0.03 %) nasal spray 1 - 2 spray intranasal Q6H PRN PRN allergy symptoms 12/13/24 metoprolol succinate 50 mg tablet,extended release 24 hr 50 mg PO Q12H blood pressure 12/13/24 potassium chloride 20 mEq tablet,extended release(part/cryst) (Klor-Con M) 40 meq PO DAILY potassium 12/13/24 sacubitril 24 mg-valsartan 26 mg tablet (Entresto) 1 tab PO Q12.TCU heart 12/13/24 spironolactone 25 mg tablet 25 mg PO DAILY diuretic 12/13/24 dapagliflozin propanediol 10 mg tablet (Farxiga) 10 mg PO DAILY Heart failure 12/18/24 furosemide 40 mg tablet 40 mg PO BID diuretic 12/18/24 Hospital Course Operations - (Exploratory laparoscopy with drainage of abscess and washout) Procedures 2-D Echocardiogram and PICC line placement Summary of Care Provided Minutes Spent on Discharge: 60 Hospital Course: This is a 69-year-old male presents with abdominal pain. Was found to have diverticulitis with an abscess. Patient admitted to the intensive care unit started on IV pip-tazo. Patient underwent an exploratory laparoscopy with drainage of the abscess and washout 2 days later on 15 December. While he was here did develop atrial fibrillation with RVR and was seen by cardiology. Heart rateremained difficult to control then cardiology was further managing that. Did have some success with rhythm control on the third but then he reverted back to atrial fibrillation. Patient had a subsequent CAT scan that showed improvement of the abscess but missed placement of the drain as it was no longer in the abscess and the fluid being drained from the AMY appeared brown and feculent in appearance. Patient also noted to have a larger abscess. Patient had a conversation with surgery and elected to be transferred because of concern for eventual reversal of what ever surgery he could potentially have such as having a colostomy. Patient was excepted at [facility] where he has been well-established with his the cardiology team they are aware he is had verydifficult to control atrial elation previously on Tikosyn. They were able to get him up the same day so patient will be discharged to their in stable condition. Additionally why he was here he had an infiltration of his right antecubital IV and subsequent imaging showed an SVT. Discussed with he and his that is conservative management for that. And patient was started on TPN and had a PICCline placed because of him not having much eaten currently being NPO. Weight / BMI Weight Weight: 104.893 kg Body Mass Index (BMI) 33.1 ABG / Lab / Microbiology Data 12/22/24 05:39 12/22/24 05:39 Laboratory: Laboratory Results - last 24 hr 12/22/24 05:39: WBC 16.2 H, RBC 4.83, Hgb 11.9 L, Hct 39.2 L, MCV 81.2, MCH 24.6L, MCHC 30.4 L, RDW Std Deviation 59.3 H, RDW Coeff of Sea 20.3 H, Plt Count 449, MPV 10.7, Immature Gran % (Auto) 1.400 H, Neut % (Auto) 87.1 H, Lymph % (Auto) 7.5 L, [place] % (Auto) 3.5, Eos % (Auto) 0.2, Baso % (Auto) 0.3, Absolute Neuts (auto) 14.1 H, Absolute Lymphs (auto) 1.21, Nucleated RBC % 0, Anisocytosis 1+, Sodium 136, Potassium 3.8, Chloride 100, Carbon Dioxide 22.6, Anion Gap 14, BUN 15, Creatinine 1.11, Estim Creat Clear Calc 74.04, Est GFR (MDRD) Non-Af 71, BUN/Creatinine Ratio 13.5, Glucose 115 H, Calcium 8.2 Radiography Diagnostic Testing: Radiology Impression Abdomen/Pelvis CT 12/21/24 15:01 IMPRESSION: 1. Interval placement of a surgical drain, with slight decrease in size of the abscess near the drain tip, which now measures up to 3.1 cm (previously 4.0 cm on 12/13/2024). Of note, the drain tip is located slightly lateral to the residual collection. Additionally, the drain courses in close proximity and potentially through a loop of small bowel, though indentation on the bowel wall could appear similar. Correlate with drain output and consider short interval repeat CT or fluoroscopy. 2. There is a new hypodense collection with rim enhancement in the mid abdomen measuring up to 8.2 cm in size, concerning for a new developing abscess. The drain tube traverses 2 cm anterior to this collection. 3. Mild dilation of the small bowel and prominent distention of the large bowel, without abrupt transition point. Findings are favored to be the result of ileus. 4. Indeterminate lesion at the upper pole of the left kidney measuring 1.1 cm. Recommend dedicated renal CT or MRI when clinically appropriate. 5. Bibasilar consolidation may be the result of atelectasis or infection. [place] Alert: New fluid collection, concern for tube coursing through small bowel The critical information above was relayed directly by me by telephone to Basil Ramírez on 12/21/2024 at 11:44 pm with readback verification. Reading Location: [id number] Chest X-Ray 12/22/24 14:15 IMPRESSION: Successful placement of left PICC line. Concern for subsegmental atelectasis and/or infiltrate in the bilateral lower lobes. Reading Location: [place] [address] D/C Instructions DC O2, CPAP, BIPAP Needs Home O2 Discharge instructions: No Meaningful Use Info Meaningful Use Meaningful Use Diagnoses (Choose all that apply): None applicable Ischemic Stroke Statin Dosing Therapy Reference: STATIN DOSE THERAPY REFERENCE: * Patients > 75 years receive moderate or high dose statin therapy. * Patients 75 years or YOUNGER should receive HIGH intensity statin dose unless contraindicated. You will be required to document reason for non-treatment if statin daily dose does not meet guidelines. HIGH DOSE STATIN THERAPY DAILY Atorvastatin > than or = to 40 mg Rosuvastatin > than or = to 20 mg Amlodipine + Atorvastatin > than or = to 2.5/40 mg Ezetimibe + Simvastatin 10/80 mg Simvastatin 80mg Discharge Plan Admission Admit Date/Time: 12/13/24 20:27 Primary Reason for Your Visit: Diverticulitis Attending Provider: Zechariah Plasencia Primary Care Provider: Zechariah Siddiqui Consulting Providers: Delano Harris; Zhang Hester; Leyda Moore; Harrison [place]; Joss Cooper; Kareem Tellez; Pancho Costa; Eric Buenrostro; Jaziel Lundberg; Basil Hunter; Cecile June; Bharathi Gray; Ike Dawkins; Etienne Hernandez NP; Mariangel Rider; Ciro Benson; Aaron Hardin; Almas Casanova; Ramana Ford; Montana Leone; Greg Lennon; Gibran Huizar; Hugh Doss; Ani Smith; Jak Corrigan; Alfie Loyola;Danny Prescott; Jagruti Bunch; Renee Hernandez; Danyell Yang; Clemente Chao; Charles Carrington; Jesus Sheffield; Tyrell Vasquez; Kelly Mix; Fabiola Markham; Scooby Beasley; Varinder Medel; Leno Scherer; Eric Gutierrez Discharge Orders/Prescriptions Prescriptions: No Action Eliquis 5 mg tablet 5 mg PO BID Patient Comments: TAKE 1 TABLET BY MOUTH TWICE A DAY FOR 90 DAYS ascorbic acid (vitamin C) 500 MG tablet 2 gm PO DAILY [id number]-rzgqrikan-mpukttfo 100-62.5-25 mcg blister with device 1 ea INHALATION DAILY albuterol sulfate 2.5 mg /3 mL (0.083 %) solution for nebulization 2.5 mg inhalation TID PRN PRN (Reason: bronchospasm) dofetilide 250 mcg capsule 250 mcg PO Q12H metoprolol succinate 50 mg tablet extended release 24 hr 50 mg PO Q12H potassium chloride [Klor-Con M20] 20 mEq tablet,ER particles/crystals 40 meq PO DAILY Entresto 24-26 mg tablet 1 tab PO Q12.TCU spironolactone 25 mg tablet 25 mg PO DAILY ipratropium bromide 21 mcg (0.03 %) spray,non-aerosol 1 - 2 spray INTRANASAL Q6H PRN PRN (Reason: allergy symptoms) balsalazide 750 mg capsule 2,250 mg PO TID dapagliflozin propanediol [Farxiga] 10 mg tablet 10 mg PO DAILY furosemide 40 mg tablet 40 mg PO BID Referrals / Follow Up: Zechariah Siddiqui MD [Primary Care Provider] - Disposition Disposition (needs filled in before D/C Order can be placed): Acute Care Hospital Charges/Coding Visit Charges Inpatient E&M: 76311 Disch Hosp >30min 12/22/24 1005 <Electronically signed by Zechariah Plasencia DO> Cosigner Signature (if applicable): CC: Dr. Zechariah Plasencia DO; Dr. Zechariah Siddiqui MD~ Signed [facility] Work Phone: [phone]) 729-413306-04-2025 [facility]06-04-2025 Progress note Author [facility]chariah [facility] Note Date/Time December 22, 2024 3:43p m [facility] Medical Records Department [address] [place] [address] Progress Note - Hospitalist 12/22/24 0854 MR#: [id number] Acct: [id number] Name: CONRAD OCONNELL Rep #:[id number] : 1955 69 From: Zechariah Plasencia DO PCP: Dr. Zechariah Siddiqui MD Status:ADM IN Location: [place] [address] Reason for Visit Reason for Visit: Diagnoses Essential (primary) hypertension (12/13/24) Left bundle-branch block, unspecified (12/13/24) Paroxysmal atrial fibrillation (12/13/24) Unspecified atrial fibrillation (12/13/24) Unspecified atrial flutter (12/13/24) Heart disease, unspecified (12/13/24) Diverticulitis of large intestine with perforation and abscess without bleeding (12/13/24) Diverticulitis of intestine, part unspecified, without perforation or abscess without bleeding (12/13/24) Unspecified abdominal pain (12/13/24) Abnormal electrocardiogram [ECG] [EKG] (12/13/24) 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 Abdomen feeling worse, especially when he has a gas bubble. Concerned about swelling and redness in right antecubital fossa. Objective Data Objective Data Vital Signs: Vital Signs Temp Pulse Resp BP Pulse Ox O2 Del Method O2 Flow Rate 36.5 C L 145 H 16 110/69 95 Room Air 2 12/22/24 03:22 12/22/24 03:27 12/22/24 03:22 12/22/24 03:22 12/22/24 03:22 12/22/24 03:22 12/21/24 06:45 FiO2 98 12/15/24 12:25 Oxygen Flow Rate (L/min) 2 Oxygen Delivery Method Room Air Weight: 104.893 kg Body Mass Index (BMI) 33.1 Intake & Output: Intake and Output for Last 24 Hours 12/20/24 12/21/24 12/22/24 23:59 23:59 23:59 Intake Total 1059.58 / 1059.58 385.00 / 385.00 50 / 50 Output Total 2325 / 2325 900 / 900 Balance -1265.42 / -1265.42 -515.00 / -515.00 50 / 50 Lab / Micro Data 12/22/24 05:39 12/22/24 05:39 Labs: Laboratory Results - last 24 hr 12/22/24 05:39: WBC 16.2 H, RBC 4.83, Hgb 11.9 L, Hct 39.2 L, MCV 81.2, MCH 24.6 L, MCHC 30.4 L, RDW Std Deviation 59.3 H, RDW Coeff of Sea 20.3 H, Plt Count 449, MPV 10.7, Immature Gran % (Auto) 1.400 H, Neut % (Auto) 87.1 H, Lymph % (Auto) 7.5 L, [place] % (Auto) 3.5, Eos % (Auto) 0.2, Baso % (Auto) 0.3, Absolute Neuts (auto) 14.1 H, Absolute Lymphs (auto) 1.21, Nucleated RBC % 0, Anisocytosis 1+, Sodium 136, Potassium 3.8, Chloride 100, Carbon Dioxide 22.6, Anion Gap 14, BUN 15, Creatinine 1.11, Estim Creat Clear Calc 74.04, Est GFR (MDRD) Non-Af 71, BUN/Creatinine Ratio 13.5, Glucose 115 H, Calcium 8.2 Radiography Diagnostic Testing: Radiology Impression Abdomen X-Ray 12/21/24 09:36 IMPRESSION: Findings consistent with small-bowel obstruction. Reading Location: [facility] Abdomen/Pelvis CT 12/21/24 15:01 IMPRESSION: 1. Interval placement of a surgical drain, with slight decrease in size of the abscess near the drain tip, which now measures up to 3.1 cm (previously 4.0 cm on 12/13/2024). Of note, the drain tip is located slightly lateral to the residual collection. Additionally, the drain courses in close proximity and potentially through a loop of small bowel, though indentation on the bowel wall could appear similar. Correlate with drain output and consider short interval repeat CT or fluoroscopy. 2. There is a new hypodense collection with rim enhancement in the mid abdomen measuring up to 8.2 cm in size, concerning for a new developing abscess. The drain tube traverses 2 cm anterior to this collection. 3. Mild dilation of the small bowel and prominent distention of the large bowel, without abrupt transition point. Findings are favored to be the result of ileus. 4. Indeterminate lesion at the upper pole of the left kidney measuring 1.1 cm. Recommend dedicated renal CT or MRI when clinically appropriate. 5. Bibasilar consolidation may be the result of atelectasis or infection. [place] Alert: New fluid collection, concern for tube coursing through small bowel The critical information above was relayed directly by me by telephone to Basil Ramírez on 12/21/2024 at 11:44 pm with readback verification. Reading Location: [id number] Rhythm Strip Rhythm Strip: A-fib Rate: 110 Physical Exam Const alert and no apparent distress HEENT head/scalp atraumatic and moist oral mucous membranes Resp normal respiratory effort, no retractions, no use of accessory muscles and clear to auscultation bilaterally Cardio regular rate, regular rhythm, S1 normal heart sound and S2 normal heart sound GI GI Narrative: distended. TTP Auscultation: hypoactive bowel sounds Extremity Extremity Narrative: redness and palpable cord in right antecubital fossa. Neuro Sensorium / Orientation: awake and alert Psych affect normal Assessment & Plan Assessment/Plan (1) Diverticulitis: PLAN: Sigmoid diverticulitis with abscess General Surgery following. CT abdomen pelvis on admit showed acute sigmoid diverticulitis with an adjacent 4 cm abscess formation. S/p exploratory laparoscopy with drainage of abscess, washout and drain placement with surgery on 12/15. Patient tolerated procedure well. Slowly improving and is passing flatus. Repeat CT showed that the previous abscess slightly decrease and drain tip slightly lateral to abscess. Now new hypodense collection w rim enhance in the mid abdomen measuring up to 8.2cm Continue IV pip/tazo. Continue symptom control with IV pain and nausea medications as needed. NPO. TPN and PICC ordered. Reviewed CXR post PICC placement, Left sided PICC above the RA. OK to use PICC line. DW Dr. Rivera, pt needs surgery. He discussed with the patient, and given the complexity and potential for colostomy reversal, pt would prefer to go to tertiary facility. Patient requesting [facility] given his history and previously established at [facility]. I recommended Dr. Rivera initiate the transfer to more easily discuss the findings with the surgical service. He agreed and would initiate the calls. (2) Atrial fibrillation with RVR: PLAN: Cardiology following. Follows with cardiology EP in [place]; completed Tikosyn loading followed by cardioversion there last week. Unfortunately was only in sinus rhythm for 2 days before going back into A-fib. Was in A-fib with RVR on arrival here. Echo 12/14 showed moderately dilated LV, EF 35 to 40%, no other abnormalities and stable from previous. Cardiology DC digoxin, change metoprolol tartrate to succinate 50 BID, continue amiodarone 400 BID. Now off amiodarone gtt. Stop apixaban and restart heparin gtt given new findings of (3) Superficial venous thrombosis of arm: PLAN: in RUE. Preliminary US confirms this (formal read pending) Supportive mgmt. PLAN: Plan Chronic conditions: * History of HFrEF, hypertension? Follows with cardiology in [place]. Last echo in 2022 showed EF 40%. Repeat echo on 12/14 as noted above with no change from previous. Lasix had been held for several days with borderline low blood pressures but patient weight was increasing and she appeared more volume overloaded with slightly worsening oxygen requirements. Started on IV Lasix 40 mg twice daily on 12/18 with good urine output; will continue this through 12/19 and plan to resume home p.o. Lasix 40 mg daily on 12/20. Per cardiology recommendations, will start Entresto at low-dose on 12/19. Continue to monitor closely. * Class I obesity with KIM? BMI 33 on admit. Encouraged weight loss. Continue CPAP at night and with naps. DVT prophylaxis: Not indicated, as already anticoagulated. Greater than 60 minutes of which greater than 50 the time was discussing with the patient at bedside about CAT scan findings, need for n.p.o. status, SVT, need for TPN and PICC line. Also, remainder of the time was discussing with specialists (cardiology and surgery). Charges/Coding Visit Charges Inpatient E&M: 67573 Subs Hosp L3 12/22/24 1540 <Electronically signed by Zechariah Plasencia DO> Cosigner Signature (if applicable): CC: ~ Signed [facility] Work Phone: 1(526) 245-716006-04-2025 Progress note Author Adeline Rivera [facility] Note Date/Time December 22, 2024 3:39p m [facility] Medical Records Department [address] [place] [address] Progress Note - Surgery 12/22/24 1449 MR#: [id number] Acct: [id number] Name: CONRAD OCONNELL Rep #:[id number] : 1955 69 From: Adeline Rivera MD PCP: Dr. Zechariah Siddiqui MD Status:ADM IN Location: [place] [address] Subjective Subjective Events of the past [address] scan obtained late yesterday afternoon because of increasing white count and abdominal distention and this showed further progression of intra-abdominal abscess. He now has 2 abscesses each measuring about 4-4 and half centimeters each. Apparently yesterday the output was somewhat purulent and then overnight nursing noted that this became more feculent in its appearance. Patient denies any significant clinical change fromhis standpoint. He still complaining of pain but this is not been any worse than previous few days Objective Data Objective Data Vital Signs: Vital Signs Temp Pulse Resp BP Pulse Ox O2 Del Method O2 Flow Rate 97.7 F L 132 H 18 121/100 H 95 Room Air 2 12/22/24 10:24 12/22/24 12:46 12/22/24 10:24 12/22/24 12:43 12/22/24 10:24 12/22/24 10:39 12/21/24 06:45 FiO2 98 12/15/24 12:25 Oxygen Flow Rate (L/min) 2 Oxygen Delivery Method Room Air Weight: 231 lb 4 oz Body Mass Index (BMI) 33.1 Intake & Output: Intake and Output for Last 24 Hours 12/20/24 12/21/24 12/22/24 23:59 23:59 23:59 Intake Total 1059.58 / 1059.58 385.00 / 385.00 200 / 200 Output Total 2325 / 2325 900 / 900 Balance -1265.42 / -1265.42 -515.00 / -515.00 200 / 200 Lab / Micro Data 12/22/24 05:39 12/22/24 05:39 Labs: Laboratory Results - last 24 hr 12/22/24 05:39: WBC 16.2 H, RBC 4.83, Hgb 11.9 L, Hct 39.2 L, MCV 81.2, MCH 24.6L, MCHC 30.4 L, RDW Std Deviation 59.3 H, RDW Coeff of Sea 20.3 H, Plt Count 449, MPV 10.7, Immature Gran % (Auto) 1.400 H, Neut % (Auto) 87.1 H, Lymph % (Auto) 7.5 L, [place] % (Auto) 3.5, Eos % (Auto) 0.2, Baso % (Auto) 0.3, Absolute Neuts (auto) 14.1 H, Absolute Lymphs (auto) 1.21, Nucleated RBC % 0, Anisocytosis 1+, Sodium 136, Potassium 3.8, Chloride 100, Carbon Dioxide 22.6, Anion Gap 14, BUN 15, Creatinine 1.11, Estim Creat Clear Calc 74.04, Est GFR (MDRD) Non-Af 71, BUN/Creatinine Ratio 13.5, Glucose 115 H, Calcium 8.2 Radiography Diagnostic Testing: Radiology Impression Abdomen/Pelvis CT 12/21/24 15:01 IMPRESSION: 1. Interval placement of a surgical drain, with slight decrease in size of the abscess near the drain tip, which now measures up to 3.1 cm (previously 4.0 cm on 12/13/2024). Of note, the drain tip is located slightly lateral to the residual collection. Additionally, the drain courses in close proximity and potentially through a loop of small bowel, though indentation on the bowel wall could appear similar. Correlate with drain output and consider short interval repeat CT or fluoroscopy. 2. There is a new hypodense collection with rim enhancement in the mid abdomen measuring up to 8.2 cm in size, concerning for a new developing abscess. The drain tube traverses 2 cm anterior to this collection. 3. Mild dilation of the small bowel and prominent distention of the large bowel, without abrupt transition point. Findings are favored to be the result of ileus. 4. Indeterminate lesion at the upper pole of the left kidney measuring 1.1 cm. Recommend dedicated renal CT or MRI when clinically appropriate. 5. Bibasilar consolidation may be the result of atelectasis or infection. [place] Alert: New fluid collection, concern for tube coursing through small bowel The critical information above was relayed directly by me by telephone to Basil Ramírez on 12/21/2024 at 11:44 pm with readback verification. Reading Location: [id number] Chest X-Ray 12/22/24 14:15 IMPRESSION: Successful placement of left PICC line. Concern for subsegmental atelectasis and/or infiltrate in the bilateral lower lobes. Reading Location: [facility] Rhythm Strip Rhythm Strip: A-fib Rate: 112 Physical Exam Narrative He is alert and oriented x 3. He has no acute distress. Abdomen is soft and distended. No erythema. Incisions appear clean dry and intact. He does have an umbilical hernia that is unremarkable. AMY drain with feculent output. Assessment & Plan Assessment/Plan (1) Colonic diverticular abscess: PLAN: Plan The patient is a 69-year-old male with a history of Crohn's disease who presented with sigmoid diverticulitis with colonic abscess. This was not amenable to percutaneous drainage. Patient underwent a laparoscopic washout procedure with Dr. Harris. Over the weekend patient was doing fairly well and was regaining bowel function. However, patient has been having a slowly increasing white count and abdomen seemed more distended yesterday. A CT scan was obtained. This showed progression of his abscesses despite recent drainage procedure. AMY drain output now becoming feculent. Patient received Eliquis yesterday. Due to the feculent output we felt that surgery would be most definitive by way of Venkat procedure. We discussed that his surgery may be quite complex given the amount of inflammation and his history of Crohn's disease as well as recent steroid use. We did discuss option of transfer to a tertiary center/colorectal surgeon. Patient has well-established with [facility] and the patient, his and myself all felt that mutually this may be in his best interest. I discussed this with hospitalist. I reached out to [facility] transfer line and began the transfer process. I am currently awaiting a callback from one of their surgeons. In the meantime we are recommending starting TPN throughPICC line for nutrition. 12/22/24 5944 <Electronically signed by Adeline Rivera MD> Cosigner Signature (if applicable): CC: ~ Signed ADDENDUM by Dr. Adeline Rivera MD on 12/22/24 at 1539 Addendum Spoke with colorectal surgeon Dr Guillermo at [facility]. We discussed patient's case and he is agreeable to accept patient in transfer. Transfer line while call PCUto begin the transfer process. 12/22/24 1539<Electronically signed by Adeline Rivera MD> Cosigner Signature (if applicable): cc: ~* Signed [facility] Work Phone: 1(407) 266-725906-04-2025 Radiology Diagnostic study [facility]06-04-2025 Progress note Author Basil Hunter [facility] Note Date/Time December 22, 2024 9:24a m [facility] Medical Records Department [address] [facility] [place] [address] Progress Note - Cardiology 12/22/24914 MR#: [id number] Acct: [id number] Name: CONRAD OCONNELL Rep #:[id number] : 1955 69 From: Basil Hunter MD PCP: Dr. Zechariah Siddiqui MD Status:ADM IN Location: [place] [id number]- [id number] Subjective Subjective Patient transiently reverted into sinus rhythm yesterday. Early this a.m. he developed diarrhea and rereverted back into atrial fibrillation. Currently his atrial fibs on telemetry with a heart rate heart rate of 112. Heart rates have been running as high as 130?140. The patient reports this is common for him he has been going in and out of atrial fibrillation for 2 years. The heart rate is uncommon for him. However he is currently infected and there is still a lot of inflammation in his abdominal cavity. I did discuss this with the surgical team this morning. And we will switch him from Eliquis back to heparin in anticipation of some potential procedure need to be done. The patient has evidence of small bowel obstruction on x-ray. Objective Data Vital Signs: Vital Signs Temp Pulse Resp BP Pulse Ox O2 Del Method O2 Flow Rate 97.7 F L 145 H 16 110/69 95 Room Air 2 12/22/24 03:22 12/22/24 03:27 12/22/24 03:22 12/22/24 03:22 12/22/24 03:22 12/22/24 03:22 12/21/24 06:45 FiO2 98 12/15/24 12:25 Oxygen Flow Rate (L/min) 2 Oxygen Delivery Method Room Air Weight: 231 lb 4 oz Body Mass Index (BMI) 33.1 Intake & Output: Intake and Output for Last 24 Hours 12/20/24 12/21/24 12/22/24 23:59 23:59 23:59 Intake Total 1059.58 / 1059.58 385.00 / 385.00 50 / 50 Output Total 2325 / 2325 900 / 900 Balance -1265.42 / -1265.42 -515.00 / -515.00 50 / 50 Lab / Micro Data 12/22/24 05:39 12/22/24 05:39 Labs: Laboratory Results - last 24 hr 12/22/24 05:39: WBC 16.2 H, RBC 4.83, Hgb 11.9 L, Hct 39.2 L, MCV 81.2, MCH 24.6L, MCHC 30.4 L, RDW Std Deviation 59.3 H, RDW Coeff of Sea 20.3 H, Plt Count 449, MPV 10.7, Immature Gran % (Auto) 1.400 H, Neut % (Auto) 87.1 H, Lymph % (Auto) 7.5 L, [place] % (Auto) 3.5, Eos % (Auto) 0.2, Baso % (Auto) 0.3, Absolute Neuts (auto) 14.1 H, Absolute Lymphs (auto) 1.21, Nucleated RBC % 0, Anisocytosis 1+, Sodium 136, Potassium 3.8, Chloride 100, Carbon Dioxide 22.6, Anion Gap 14, BUN 15, Creatinine 1.11, Estim Creat Clear Calc 74.04, Est GFR (MDRD) Non-Af 71, BUN/Creatinine Ratio 13.5, Glucose 115 H, Calcium 8.2 Rhythm Strip Rhythm Strip: A-fib Rate: 112 Cardiology Labs/Tests 12/22/24 05:39: WBC 16.2 H, RBC 4.83, Hgb 11.9 L, Hct 39.2 L, MCV 81.2, MCH 24.6L, MCHC 30.4 L, Plt Count 449, MPV 10.7, Immature Gran % (Auto) 1.400 H, Neut % (Auto) 87.1 H, Lymph % (Auto) 7.5 L, [place] % (Auto) 3.5, Eos % (Auto) 0.2, Baso %(Auto) 0.3, Absolute Neuts (auto) 14.1 H, Nucleated RBC % 0, Sodium 136, Potassium 3.8, Chloride 100, Carbon Dioxide 22.6, Anion Gap 14, BUN 15, Creatinine 1.11, Est GFR (MDRD) Non-Af 71, BUN/Creatinine Ratio 13.5, Glucose 115 H, Calcium 8.2 Rhythm: EKG: ECHO: Stress Test: Cardiac Cath: PCI: CT Surgery: Holter monitor: EPS: PPM: CXR: Chest CT Scan: Radiography Diagnostic Testing: Radiology Impression Abdomen X-Ray 12/21/24 09:36 IMPRESSION: Findings consistent with small-bowel obstruction. Reading Location: [facility]--1 Abdomen/Pelvis CT 12/21/24 15:01 IMPRESSION: 1. Interval placement of a surgical drain, with slight decrease in size of the abscess near the drain tip, which now measures up to 3.1 cm (previously 4.0 cm on 12/13/2024). Of note, the drain tip is located slightly lateral to the residual collection. Additionally, the drain courses in close proximity and potentially through a loop of small bowel, though indentation on the bowel wall could appear similar. Correlate with drain output and consider short interval repeat CT or fluoroscopy. 2. There is a new hypodense collection with rim enhancement in the mid abdomen measuring up to 8.2 cm in size, concerning for a new developing abscess. The drain tube traverses 2 cm anterior to this collection. 3. Mild dilation of the small bowel and prominent distention of the large bowel, without abrupt transition point. Findings are favored to be the result of ileus. 4. Indeterminate lesion at the upper pole of the left kidney measuring 1.1 cm. Recommend dedicated renal CT or MRI when clinically appropriate. 5. Bibasilar consolidation may be the result of atelectasis or infection. [place] Alert: New fluid collection, concern for tube coursing through small bowel The critical information above was relayed directly by me by telephone to Basil Ramírez on 12/21/2024 at 11:44 pm with readback verification. Reading Location: [id number] Physical Exam Const alert and oriented x3 HEENT normocephalic Eyes EOMs intact bilaterally Resp normal respiratory effort Auscultation: diminished lung sounds bilateral lower Cardio Cardio Narrative: Distant heart tones Rate: tachycardic Rhythm: abnormal rhythm irregularly irregular Heart Sounds: S1 normal and S2 normal; Negative for click, gallop or murmur Extremity General Extremity: edema Neuro Neuro Narrative: Alert and oriented x 3 Psych mental status grossly normal Assessment & Plan Assessment/Plan (1) LV dysfunction: PLAN: Patient's EF known to be in the 35 to 40% range. Currently his primary issue is his tachycardia up in the 130-140 range. His blood pressure is borderline and therefore we will hold his Entresto temporarily so that we can increase his metoprolol for better rate control. He will continue on the amiodarone. (2) Chronic anticoagulation: PLAN: Patient has been on Eliquis long-term. However despite restarting it he has now developed an ileus so we will discontinue the oral Eliquis and put him back on IV heparin in case further intervention is needed from a surgical perspective. (3) Atrial fibrillation with RVR: PLAN: Patient transiently went into sinus rhythm yesterday. He is now back in atrial fibrillation with a rapid ventricular response. I would recommend that given his rapid ventricular response it is more important for his LV function that we control the rate then it is for him to be on Entresto. By stopping the Entresto we should have blood pressure enough to be able to increase his metoprolol. PLAN: Plan 1. Hold Entresto. 2. Increase metoprolol to metoprolol tartrate 50 mg every 6 hours with hold parameters for blood pressure and heart rate. 3. Will hold Eliquis and replace with heparin IV. 4. Once hemodynamics stabilized would recommend decreasing metoprolol back to metoprolol succinate 50 mg twice daily and reinstituting of the Entresto. 5. Continue amiodarone 400 mg p.o. twice daily. At discharge the dose will need to be decreased to 200 mg twice daily. 6. The patient is planned to follow-up with his canary breeder at [facility] following discharge for further definitive therapy of his atrial fibrillation. 7. Dr. June will be taken over the inpatient service tomorrow. Charges/Coding Visit Charges Inpatient E&M: 59479 Subs Hosp L3 12/22/24923 <Electronically signed by Basil Hunter MD> Cosigner Signature (if applicable): CC: ~ Signed [facility] Work Phone: 1(504) 608-390406-04-2025 Progress note Author Marie Grove [facility] Note Date/Time December 22, 2024 3:06a [facility] Medical Records Department [address] [place] [address] Progress Note - Hospitalist 12/22/24304 MR#: [id number] Acct: [id number] Name: CONRAD OCONNELL Rep #:[id number] : 1955 69 From: Marie Grove MD PCP: Dr. Zechariah Siddiqui MD Status:ADM IN Location: [place] [address] Hospitalist Note Patient with recurrent PAF RVR, from Cardiology last note had been effective to administer additional dose amiodarone, will trial. 12/22/24305 <Electronically signed by Marie Grove MD> Cosigner Signature (if applicable): CC: ~ Signed [facility] Work Phone: 1([phone]) 354-195906-04-2025 Progress note Author Marie Grove [facility] Note Date/Time December 22, 2024 12:25 am [facility] Medical Records Department [address] [place] [address] Progress Note - Hospitalist 12/22/2422 MR#: [id number] Acct: [id number] Name: CONRAD OCONNELL Rep #:[id number] : 1955 69 From: Marie Grove MD PCP: Dr. Zechariah Siddiqui MD Status:ADM IN Location: [place] [address] Hospitalist Note RN updated that Dr. Ramírez is reviewing imaging that they had ordered with concerns for new abscess. Surgery aware and working directly with firer glost kiln onplan of care. 12/22/2424 <Electronically signed by Marie Grove MD> Cosigner Signature (if applicable): CC: ~ Signed [facility] Work Phone: 1(221) 732-162206-03-2025 Radiology Diagnostic study [facility]06-03-[address] [facility] Note Date/Time December 21, 2024 4:37p m [facility] Medical Records Department [address] [place] [address] Progress Note - Surgery 12/21/24 0845 MR#: [id number] Acct: [id number] Name: CONRAD OCONNELL Rep #:[id number] : 1955 69 From: Bianka ROTH PA-C PCP: Dr. Zechariah Siddiqui MD Status:ADM IN Location: [place] [address] Subjective Subjective Patient evaluated resting comfortably in bed. He has been passing flatus. His last bowel movement he believes was on Friday. He states he does not have much of an appetite. He notes the food is too sweet. He denies abdominal pain. AMY drain continues to put out thick purulent material. Objective Data Objective Data Vital Signs: Vital Signs Temp Pulse Resp BP Pulse Ox O2 Del Method O2 Flow Rate 97.4 F L 135 H 20 H 121/105 H 95 CPAP 2 12/21/24 05:01 12/21/24 06:47 12/21/24 05:01 12/21/24 06:47 12/21/24 06:45 12/21/24 06:45 12/21/24 06:45 FiO2 98 12/15/24 12:25 Oxygen Flow Rate (L/min) 2 Oxygen Delivery Method CPAP Weight: 239 lb 10.279 oz Body Mass Index (BMI) 34.4 Intake & Output: Intake and Output for Last 24 Hours 12/19/24 12/20/24 12/21/24 23:59 23:59 23:59 Intake Total 2729.83 / 2746.53 1059.58 / 1059.58 170 / 170 Output Total 1087 / 1587 2325 / 2325 400 / 400 Balance 1642.83 / 1159.53 -1265.42 / -1265.42 -230 / -230 Lab / Micro Data 12/21/24 05:30 12/21/24 05:30 Labs: Laboratory Results - last 24 hr 12/20/24 10:35: APTT 34.4 12/20/24 17:30: APTT 30.7 12/21/24 05:30: WBC 13.8 H, RBC 5.07, Hgb 12.4 L, Hct 40.5, MCV 79.9 L, MCH 24.5L, MCHC 30.6 L, RDW Std Deviation 57.9 H, RDW Coeff of Sea 20.7 H, Plt Count 399, MPV 10.4, Immature Gran % (Auto) 1.500 H, Neut % (Auto) 85.8 H, Lymph % (Auto) 8.2 L, [place] % (Auto) 4.0, Eos % (Auto) 0.4, Baso % (Auto) 0.1, Absolute Neuts (auto) 11.9 H, Absolute Lymphs (auto) 1.13, Nucleated RBC % 0, Differential Comment SCANNED, Anisocytosis 2+, Sodium 138, Potassium 3.6, Chloride 102, Carbon Dioxide 22.1, Anion Gap 14, BUN 12, Creatinine 1.03, Estim Creat Clear Calc 81.21, Est GFR (MDRD) Non-Af 78, BUN/Creatinine Ratio 11.5, Glucose 108 H, Calcium 8.1 Rhythm Strip Rhythm Strip: A-fib Rate: 110 Physical Exam GI GI Narrative: Abdomen- distended, nontender. AMY drain intact with minimal amount of purulent fluid noted within the bulb. Incisions c/d/i. No erythema or infection noted. Assessment & Plan Assessment/Plan (1) Colonic diverticular abscess: PLAN: I am following this patient in conjunction with Dr. Ramírez in Dr. Rivera's absence. He has independently evaluated this patient. Labs reviewed. WBC decreasing. Continue IV antibiotics Obtain KUB Recommend ambulating in the hallways at least 3 times if not contraindicated from cardiology. Possible repeat CT scan of the ab/pel prior to discharge We will continue to monitor this patient Charges/Coding Visit Charges Inpatient E&M: 77068 Subs Hosp L1 (no charge; post-op) 12/21/24 0900 <Electronically signed by Bianka ROTH PA-C> Cosigner Signature (if applicable): CC: ~ Signed ADDENDUM by Dr. Basil Ramírez MD on 12/21/24 at 1637 Addendum Patient seen and evaluated on 2 separate occasions alongside Mrs. Monge. Appreciate her documentation above. In brief, patient's clinical exam is concerning for postoperative ileus given significant distention and tympany withpercussion. Reflex KUB shows predominantly gastric distention and air-fluid levels throughout distended proximal small bowel. While patient is reporting passage of flatus has been a number of days since he has had a bowel movement. Further, his white blood cell count did increase yesterday before decreasing today. With him now being postoperative day 6 I believe we must look for potential alternative source for patient's ongoing ileus to include possible undrained/residual peritoneal abscess cavity. Thus I am requesting repeat CT imaging of the abdomen pelvis with p.o. and IV contrast. Patient and his were notified of this request and explanation given using radiographs to describe current course. As an aside, as noted by nursing first patient appearsto have reverted to normal sinus rhythm this afternoon. Awaiting EKG to confirm. 12/21/24 1637<Electronically signed by Basil Ramírez MD> Cosigner Signature (if applicable): cc: ~* Signed [facility] Work Phone: 1(371) [phone] Progress note Author Zechariah Plasencia [facility] Note Date/Time December 21, 2024 1:14p m [facility] Medical Records Department [address] [facility] [place] [address] Progress Note - Hospitalist 12/21/24 0809 MR#: [id number] Acct: [id number] Name: CONRAD OCONNELL Rep #:[id number] : 1955 69 From: Zechariah Plasencia DO PCP: Dr. Zechariah Siddiqui MD Status:ADM IN Location: [place] [address] Reason for Visit Reason for Visit: Diagnoses Essential (primary) hypertension (12/13/24) Left bundle-branch block, unspecified (12/13/24) Paroxysmal atrial fibrillation (12/13/24) Unspecified atrial fibrillation (12/13/24) Unspecified atrial flutter (12/13/24) Heart disease, unspecified (12/13/24) Diverticulitis of large intestine with perforation and abscess without bleeding (12/13/24) Diverticulitis of intestine, part unspecified, without perforation or abscess without bleeding (12/13/24) Unspecified abdominal pain (12/13/24) Abnormal electrocardiogram [ECG] [EKG] (12/13/24) patient flow coordinator (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 Has been tolerating some liquids, but had not had any yet today. Objective Data Objective Data Vital Signs: Vital Signs Temp Pulse Resp BP Pulse Ox O2 Del Method O2 Flow Rate 36.3 C L 135 H 20 H 121/105 H 95 CPAP 2 12/21/24 05:01 12/21/24 06:47 12/21/24 05:01 12/21/24 06:47 12/21/24 06:45 12/21/24 06:45 12/21/24 06:45 FiO2 98 12/15/24 12:25 Oxygen Flow Rate (L/min) 2 Oxygen Delivery Method CPAP Weight: 108.7 kg Body Mass Index (BMI) 34.4 Intake & Output: Intake and Output for Last 24 Hours 12/19/24 12/20/24 12/21/24 23:59 23:59 23:59 Intake Total 2729.83 / 2746.53 1059.58 / 1059.58 170 / 170 Output Total 1087 / 1587 2325 / 2325 400 / 400 Balance 1642.83 / 1159.53 -1265.42 / -1265.42 -230 / -230 Lab / Micro Data 12/21/24 05:30 12/21/24 05:30 Labs: Laboratory Results - last 24 hr 12/20/24 10:35: APTT 34.4 12/20/24 17:30: APTT 30.7 12/21/24 05:30: WBC 13.8 H, RBC 5.07, Hgb 12.4 L, Hct 40.5, MCV 79.9 L, MCH 24.5 L, MCHC 30.6 L, RDW Std Deviation 57.9 H, RDW Coeff of Sea 20.7 H, Plt Count 399, MPV 10.4, Immature Gran % (Auto) 1.500 H, Neut % (Auto) 85.8 H, Lymph % (Auto) 8.2 L, [place] % (Auto) 4.0, Eos % (Auto) 0.4, Baso % (Auto) 0.1, Absolute Neuts (auto) 11.9 H, Absolute Lymphs (auto) 1.13, Nucleated RBC % 0, Differential Comment SCANNED, Anisocytosis 2+, Sodium 138, Potassium 3.6, Chloride 102, Carbon Dioxide 22.1, Anion Gap 14, BUN 12, Creatinine 1.03, Estim Creat Clear Calc 81.21, Est GFR (MDRD) Non-Af 78, BUN/Creatinine Ratio 11.5, Glucose 108 H, Calcium 8.1 Rhythm Strip Rhythm Strip: A-fib Rate: 130 Physical Exam Const alert and no apparent distress HEENT head/scalp atraumatic and moist oral mucous membranes Neck no lymphadenopathy Resp normal respiratory effort, no retractions, no use of accessory muscles and clear to auscultation bilaterally Cardio regular rate, regular rhythm, S1 normal heart sound and S2 normal heart sound GI non-tender GI Narrative: distended. Auscultation: hypoactive bowel sounds Assessment & Plan Assessment/Plan (1) Diverticulitis: PLAN: Sigmoid diverticulitis with abscess General Surgery following. CT abdomen pelvis on admit showed acute sigmoid diverticulitis with an adjacent 4 cm abscess formation. S/p exploratory laparoscopy with drainage of abscess, washout and drain placement with surgery on 12/15. Patient tolerated procedure well. Slowly improving and is passing flatus. Initiated on full liquid diet Continue IV pip/tazo. Continue symptom control with IV pain and nausea medications as needed. on Full liquid diet. AXR showing SBO, however, patient endorses flatus. Continue FLD, unless needs changed by GS. (2) Atrial fibrillation with RVR: PLAN: Cardiology following. Follows with cardiology EP in [place]; completed Tikosyn loading followed by cardioversion there last week. Unfortunately was only in sinus rhythm for 2 days before going back into A-fib. Was in A-fib with RVR on arrival here. Echo 12/14 showed moderately dilated LV, EF 35 to 40%, no other abnormalities and stable from previous. Cardiology DC digoxin, change metoprolol tartrate to succinate 50 BID, continue amiodarone 400 BID. Now off amiodarone gtt. on Apixaban PLAN: Plan Chronic conditions: * History of HFrEF, hypertension? Follows with cardiology in [place]. Last echo in 2022 showed EF 40%. Repeat echo on 12/14 as noted above with no change from previous. Lasix had been held for several days with borderline low blood pressures but patient weight was increasing and she appeared more volume overloaded with slightly worsening oxygen requirements. Started on IV Lasix 40 mg twice daily on 12/18 with good urine output; will continue this through 12/19 and plan to resume home p.o. Lasix 40 mg daily on 12/20. Per cardiology recommendations, will start Entresto at low-dose on 12/19. Continue to monitor closely. * Class I obesity with KIM? BMI 33 on admit. Encouraged weight loss. Continue CPAP at night and with naps. DVT prophylaxis: Not indicated, as already anticoagulated. Charges/Coding Visit Charges Inpatient E&M: 21314 Subs Hosp L2 12/21/24 1314 <Electronically signed by Zechariah Plasencia DO> Cosigner Signature (if applicable): CC: ~ Signed [facility] Work Phone: 1(862) 352-269306-03-2025 Radiology Diagnostic study [facility]06-03-2025 Progress note Author Basil Hunter [facility] Note Date/Time December 21, 2024 8:33a m [facility] Medical Records Department [address] [place] [address] Progress Note - Cardiology 12/21/24 0821 MR#: [id number] Acct: [id number] Name: CONRAD OCONNELL Rep #:[id number] : 1955 69 From: Basil Hunter MD PCP: Dr. Zechariah Siddiqui MD Status:ADM IN Location: [place] [address]- 1 Subjective Subjective I was called early this morning the patient's heart rate began in the 140 range. We gave him an additional 200 mg of amiodarone and his heart rate has now come down in the 105?110 range still remaining in atrial fibrillation. The patient was sleeping with his CPAP machine in place. Upon awakening he denies any shortness of breath or palpitations. I did have a discussion with his yesterday concerning his evaluation and treatment options discussed at [facility]. They are to follow-up there with his EP physician Dr. Valencia after he is discharged from [facility]. Objective Data Vital Signs: Vital Signs Temp Pulse Resp BP Pulse Ox O2 Del Method O2 Flow Rate 97.4 F L 135 H 20 H 121/105 H 95 CPAP 2 12/21/24 05:01 12/21/24 06:47 12/21/24 05:01 12/21/24 06:47 12/21/24 06:45 12/21/24 06:45 12/21/24 06:45 FiO2 98 12/15/24 12:25 Oxygen Flow Rate (L/min) 2 Oxygen Delivery Method CPAP Weight: 239 lb 10.279 oz Body Mass Index (BMI) 34.4 Intake & Output: Intake and Output for Last 24 Hours 12/19/24 12/20/24 12/21/24 23:59 23:59 23:59 Intake Total 2729.83 / 2746.53 1059.58 / 1059.58 170 / 170 Output Total 1087 / 1587 2325 / 2325 400 / 400 Balance 1642.83 / 1159.53 -1265.42 / -1265.42 -230 / -230 Lab / Micro Data Attestation: I reviewed the patient's lab results. 12/21/24 05:30 12/21/24 05:30 Labs: Laboratory Results - last 24 hr 12/20/24 10:35: APTT 34.4 12/20/24 17:30: APTT 30.7 12/21/24 05:30: WBC 13.8 H, RBC 5.07, Hgb 12.4 L, Hct 40.5, MCV 79.9 L, MCH 24.5L, MCHC 30.6 L, RDW Std Deviation 57.9 H, RDW Coeff of Sea 20.7 H, Plt Count 399, MPV 10.4, Immature Gran % (Auto) 1.500 H, Neut % (Auto) 85.8 H, Lymph % (Auto) 8.2 L, [place] % (Auto) 4.0, Eos % (Auto) 0.4, Baso % (Auto) 0.1, Absolute Neuts (auto) 11.9 H, Absolute Lymphs (auto) 1.13, Nucleated RBC % 0, Differential Comment SCANNED, Anisocytosis 2+, Sodium 138, Potassium 3.6, Chloride 102, Carbon Dioxide 22.1, Anion Gap 14, BUN 12, Creatinine 1.03, Estim Creat Clear Calc 81.21, Est GFR (MDRD) Non-Af 78, BUN/Creatinine Ratio 11.5, Glucose 108 H, Calcium 8.1 Rhythm Strip Rhythm Strip: A-fib Rate: 110 Cardiology Labs/Tests 12/20/24 10:35: APTT 34.4 12/20/24 17:30: APTT 30.7 12/21/24 05:30: WBC 13.8 H, RBC 5.07, Hgb 12.4 L, Hct 40.5, MCV 79.9 L, MCH 24.5L, MCHC 30.6 L, Plt Count 399, MPV 10.4, Immature Gran % (Auto) 1.500 H, Neut % (Auto) 85.8 H, Lymph % (Auto) 8.2 L, [place] % (Auto) 4.0, Eos % (Auto) 0.4, Baso %(Auto) 0.1, Absolute Neuts (auto) 11.9 H, Nucleated RBC % 0, Sodium 138, Potassium 3.6, Chloride 102, Carbon Dioxide 22.1, Anion Gap 14, BUN 12, Creatinine 1.03, Est GFR (MDRD) Non-Af 78, BUN/Creatinine Ratio 11.5, Glucose 108 H, Calcium 8.1 Rhythm: EKG: ECHO: Stress Test: Cardiac Cath: PCI: CT Surgery: Holter monitor: EPS: PPM: CXR: Chest CT Scan: Physical Exam Const alert and oriented x3 HEENT normocephalic Eyes EOMs intact bilaterally Neck no JVD Resp normal respiratory effort and clear to auscultation bilaterally Cardio Rate: tachycardic Rhythm: abnormal rhythm irregularly irregular Heart Sounds: S1 normal and S2 normal; Negative for click, gallop or murmur Extremity no pedal edema Neuro Neuro Narrative: Alert and oriented x 3 Psych mental status grossly normal Assessment & Plan Assessment/Plan (1) Atrial fibrillation with RVR: PLAN: Patient remains in atrial fibrillation. He had an episode last evening where his heart rate was up in the 140 range. We gave an additional dose of Lanoxin and amiodarone which brought his heart rate down in the 105-110 bpm range. The patient continues to have elevated white blood cell count suggestinghe still has yet to clear his infection from his diverticular abscess. This will drive his heart rate. At this point in time we will continue amiodarone at 400 mg twice daily. The patient was reinstituted on Eliquis 5 mg twice daily which he appears to be tolerating without incident. Given his blood pressures improved I would recommend we discontinue the Lanoxin due to the potential interaction with amiodarone. He needs beta- kleber therapy to treat his LV dysfunction. In his home environment he is on metoprolol succinate 50 mg p.o. twice daily we will reinstitute this dose today. I did discuss this plan with the patient's yesterday. She informed me thatDr. Valencia, his EP physician at [facility], was planning on radiofrequency ablation for his atrial fibrillation at some point in time in the future. (2) LV dysfunction: PLAN: Will reinstitute metoprolol tartrate 50 mg twice daily today. Continue his Entresto. The patient was not on spironolactone in his home environment he however he was on furosemide 40 mg twice daily. 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 The patient is being evaluated through the [facility] heart center. (3) Colonic diverticular abscess: PLAN: The patient continues on IV antibiotic therapy. Long-term treatment and management per the surgical team and primary service. PLAN: Plan 1. Recommend discontinue the Lanoxin. 2. Will change metoprolol to tartrate to metoprolol succinate 50 mg twice dailyto get back on his home dose. 3. Continue with amiodarone 400 mg twice daily until day of discharge. At thattime we will decrease amiodarone to 200 mg twice daily. 4. Patient will follow-up with his EP service at [facility] after discharge. Charges/Coding Visit Charges Inpatient E&M: 00085 Subs Hosp L2 12/21/24 0833 <Electronically signed by Basil Hunter MD> Cosigner Signature (if applicable): CC: ~ Signed [facility] Work Phone: 1(174) 315-223006-03-2025 Progress note Author [facility] Note Date/Time December 21, 2024 2:36a [facility] Medical Records Department [address] [place] [address] Progress Note - Hospitalist 12/21/24 023 MR#: [id number] Acct: [id number] Name: CONRAD OCONNELL Rep #:[id number] : 1955 69 From: Marie Grove MD PCP: Dr. Zechariah Siddiqui MD Status:ADM IN Location: [place] [address] Hospitalist Note Patient with persistent RVR recurrence. BP low normal range. Will give an additional digoxin IV x 1 now. 12/21/24235 <Electronically signed by Marie Grove MD> Cosigner Signature (if applicable): CC: ~ Signed [facility] Work Phone: 1(468) 160-724006-02-2025 Progress note Author [facility] Note Date/Time December 20, 2024 4:22p [facility] Medical Records Department [address] [place] [address] Progress Note - Surgery 12/20/24 1026 MR#: [id number] Acct: [id number] Name: CONRAD OCONNELL Rep #:[id number] : 1955 69 From: Adeline Rivera MD PCP: Dr. Zechariah Siddiqui MD Status:ADM IN Location: [place] [address] Subjective Subjective Patient seen and evaluated on rounds this morning. He denies any new issues or complaints. He states that he is still passing flatus and has tolerated a full liquid diet. He states that he has been up and ambulating. He remains with A-fib with elevated heart rate Objective Data Objective Data Vital Signs: Vital Signs Temp Pulse Resp BP Pulse Ox O2 Del Method O2 Flow Rate 98 F 145 H 22 H 104/71 96 Room Air 2 12/19/24 23:00 12/20/24 10:00 12/20/24 10:00 12/20/24 10:00 12/20/24 10:00 12/20/24 10:00 12/19/24 19:20 FiO2 98 12/15/24 12:25 Oxygen Flow Rate (L/min) 2 Oxygen Delivery Method Room Air Weight: 231 lb 11.293 oz Body Mass Index (BMI) 33.2 Intake & Output: Intake and Output for Last 24 Hours 12/18/24 12/19/24 12/20/24 23:59 23:59 23:59 Intake Total 3367.05 / 3383.75 2729.83 / 2746.53 390.24 / 390.24 Output Total 4710 / 4740 1087 / 1587 700 / 700 Balance -1342.95 / -1356.25 1642.83 / 1159.53 -309.76 / -309.76 Lab / Micro Data 12/20/24 04:05 12/20/24 04:05 Labs: Laboratory Results - last 24 hr 12/19/24 10:35: APTT 54.7 H 12/19/24 17:20: APTT 49.8 H 12/20/24 00:12: APTT 61.6 H 12/20/24 04:05: WBC 15.1 H, RBC 4.78, Hgb 11.6 L, Hct 38.9 L, MCV 81.4, MCH 24.3L, MCHC 29.8 L, RDW Std Deviation 59.7 H, RDW Coeff of Sea 20.7 H, Plt Count 338, MPV 10.6, Differential Comment , APTT 52.9 H, Sodium 136, Potassium 3.3, Chloride 100, Carbon Dioxide 21.5, Anion Gap 14, BUN 12, Creatinine 1.02, Estim Creat Clear Calc 79.98, Est GFR (MDRD) Non-Af 79, BUN/Creatinine Ratio 11.5, Glucose 96, Calcium 8.1 Rhythm Strip Rhythm Strip: A-fib Rate: 130 Physical Exam Narrative He is alert and oriented x 3. He is in no acute distress. Abdomen is soft and still somewhat distended. Mild appropriate tenderness to palpation. AMY drain with mostly serous output although after stripping the drain there was some purulent tinged output in the tubing Assessment & Plan Assessment/Plan (1) Colonic diverticular abscess: PLAN: Plan The patient is a 69-year-old male who presented with diverticulitis with abscess. This abscess was not amenable to percutaneous drainage and so a laparoscopic drainage procedure was performed several days ago. Patient seems to be improving clinically from a surgical standpoint. He has continued to passflatus indicating the early return of bowel function. He has tolerated clear liquid diet thus far. Our plan is to advance his diet slowly. Will keep diet at a full liquid diet per patient request. Will continue AMY drain. Appreciate medical management. Will continue to follow. 12/20/24 1623 <Electronically signed by Adeline Rivera MD> Cosigner Signature (if applicable): CC: ~ Signed [facility] Work Phone: 1(488) 806-775006-02-2025 Progress note Author Zechariah Plasencia [facility] Note Date/Time December 20, 2024 2:03p [facility] Medical Records Department [address] [place] [address] Progress Note - Hospitalist 12/20/24 0851 MR#: [id number] Acct: [id number] Name: CONRAD OCONNELL Rep #:[id number] : 1955 69 From: Zechariah Plasencia DO PCP: Dr. Zechariah Siddiqui MD Status:ADM IN Location: [place] [address] Reason for Visit Reason for Visit: Diagnoses Essential (primary) hypertension (12/13/24) Left bundle-branch block, unspecified (12/13/24) Paroxysmal atrial fibrillation (12/13/24) Unspecified atrial fibrillation (12/13/24) Unspecified atrial flutter (12/13/24) Heart disease, unspecified (12/13/24) Diverticulitis of large intestine with perforation and abscess without bleeding (12/13/24) Diverticulitis of intestine, part unspecified, without perforation or abscess without bleeding (12/13/24) Unspecified abdominal pain (12/13/24) Abnormal electrocardiogram [ECG] [EKG] (12/13/24) group home (current) use of anticoagulants (12/13/24) Subjective Subjective On clear liquids. HR has remained consistently in the 140s. Patient states that it normally is in the 140s when he checks in the AM at home. Denies chest pain, palpitations. Objective Data Objective Data Vital Signs: Vital Signs Temp Pulse Resp BP Pulse Ox O2 Del Method O2 Flow Rate 36.6 C 136 H 18 98/61 95 Room Air 2 12/19/24 23:00 12/20/24 05:26 12/20/24 03:00 12/20/24 03:00 12/20/24 08:32 12/20/24 08:32 12/19/24 19:20 FiO2 98 12/15/24 12:25 Oxygen Flow Rate (L/min) 2 Oxygen Delivery Method Room Air Weight: 105.1 kg Body Mass Index (BMI) 33.2 Intake & Output: Intake and Output for Last 24 Hours 12/18/24 12/19/24 12/20/24 23:59 23:59 23:59 Intake Total 3367.05 / 3383.75 2729.83 / 2746.53 319.64 / 319.64 Output Total 4710 / 4740 1087 / 1587 700 / 700 Balance -1342.95 / -1356.25 1642.83 / 1159.53 -380.36 / -380.36 Lab / Micro Data 12/20/24 04:05 12/20/24 04:05 Labs: Laboratory Results - last 24 hr 12/19/24 09:47: APTT Cancelled 12/19/24 10:35: APTT 54.7 H 12/19/24 17:20: APTT 49.8 H 12/20/24 00:12: APTT 61.6 H 12/20/24 04:05: WBC 15.1 H, RBC 4.78, Hgb 11.6 L, Hct 38.9 L, MCV 81.4, MCH 24.3 L, MCHC 29.8 L, RDW Std Deviation 59.7 H, RDW Coeff of Sea 20.7 H, Plt Count 338, MPV 10.6, Differential Comment , APTT 52.9 H, Sodium 136, Potassium 3.3, Chloride 100, Carbon Dioxide 21.5, Anion Gap 14, BUN 12, Creatinine 1.02, Estim Creat Clear Calc 79.98, Est GFR (MDRD) Non-Af 79, BUN/Creatinine Ratio 11.5, Glucose 96, Calcium 8.1 Rhythm Strip Rhythm Strip: A-fib Rate: 130 Physical Exam Const alert and no apparent distress HEENT head/scalp atraumatic and moist oral mucous membranes Resp normal respiratory effort, no retractions, no use of accessory muscles and clear to auscultation bilaterally Cardio Cardio Narrative: irregularly irregular. GI non-tender Auscultation: hypoactive bowel sounds Extremity normal to inspection and full ROM Neuro Sensorium / Orientation: awake and alert Psych affect normal Assessment & Plan Assessment/Plan (1) Diverticulitis: PLAN: Sigmoid diverticulitis with abscess General Surgery following. CT abdomen pelvis on admit showed acute sigmoid diverticulitis with an adjacent 4 cm abscess formation. S/p exploratory laparoscopy with drainage of abscess, washout and drain placement with surgery on 12/15. Patient tolerated procedure well. Slowly improving and is passing flatus. Initiated on clear liquid diet on 12/18. Continue IV pip/tazo. Continue symptom control with IV pain and nausea medications as needed. on Full liquid diet. (2) Atrial fibrillation with RVR: PLAN: Cardiology following. Follows with cardiology EP in [place]; completed Tikosyn loading followed by cardioversion there last week. Unfortunately was only in sinus rhythm for 2 days before going back into A-fib. Was in A-fib with RVR on arrival here. Echo 12/14 showed moderately dilated LV, EF 35 to 40%, no other abnormalities and stable from previous. DW Dr. Hunter, continue amiodarone gtt, add PO amiodarone, resume metoprolol and start at 25 PO q6h (metoprolol 50 BID had not been given since 12/16) on heparin gtt (per Dr. Rivera, ok to initiate PO anticoagulation any time). Will change to apixaban for later today. PLAN: Plan Chronic conditions: * History of HFrEF, hypertension? Follows with cardiology in [place]. Last echo in 2022 showed EF 40%. Repeat echo on 12/14 as noted above with no change from previous. Lasix had been held for several days with borderline low blood pressures but patient weight was increasing and she appeared more volume overloaded with slightly worsening oxygen requirements. Started on IV Lasix 40 mg twice daily on 12/18 with good urine output; will continue this through 12/19 and plan to resume home p.o. Lasix 40 mg daily on 12/20. Per cardiology recommendations, will start Entresto at low-dose on 12/19. Continue to monitor closely. * Class I obesity with KIM? BMI 33 on admit. Encouraged weight loss. Continue CPAP at night and with naps. DVT prophylaxis: Not indicated, as already anticoagulated. Greater than 60 minutes including discussing with the patient about the afib, disposition contingent on HR remaining stable and discussing with specialist as above. Charges/Coding Visit Charges Inpatient E&M: 12971 Subs Hosp L3 12/20/24 1403 <Electronically signed by Zechariah Plasencia DO> Cosigner Signature (if applicable): CC: ~ Signed [facility] Work Phone: 1(116) 373-844406-02-2025 Progress note Author Basil Hunter [facility] Note Date/Time December 20, 2024 8:44a m [facility] Medical Records Department [address] [place] [address] Progress Note - Cardiology 12/20/24 0836 MR#: [id number] Acct: [id number] Name: CONRAD OCONNELL Rep #:[id number] : 1955 69 From: Basil Hunter MD PCP: Dr. Zechariah Siddiqui MD Status:ADM IN Location: [place] [address] Subjective Subjective Patient resting comfortably in bed. Reports he has been passing gas for 3 days but has not had a bowel movement. He has not taking oral by his report. Patient's heart rate remains in the 120?140 range on IV amiodarone at 0.5 and dig 0.125 daily IV. He is also receiving IV Lopressor every 8 hours 5 mg. I did discuss treatment options with the hospitalist team. Objective Data Vital Signs: Vital Signs Temp Pulse Resp BP Pulse Ox O2 Del Method O2 Flow Rate 98 F 136 H 18 98/61 97 CPAP 2 12/19/24 23:00 12/20/24 05:26 12/20/24 03:00 12/20/24 03:00 12/20/24 03:00 12/20/24 04:00 12/19/24 19:20 FiO2 98 12/15/24 12:25 Oxygen Flow Rate (L/min) 2 Oxygen Delivery Method CPAP Weight: 231 lb 11.293 oz Body Mass Index (BMI) 33.2 Intake & Output: Intake and Output for Last 24 Hours 12/18/24 12/19/24 12/20/24 23:59 23:59 23:59 Intake Total 3367.05 / 3383.75 2729.83 / 2746.53 230.42 / 230.42 Output Total 4710 / 4740 1087 / 1587 700 / 700 Balance -1342.95 / -1356.25 1642.83 / 1159.53 -469.58 / -469.58 Lab / Micro Data 12/20/24 04:05 12/20/24 04:05 Labs: Laboratory Results - last 24 hr 12/19/24 09:47: APTT Cancelled 12/19/24 10:35: APTT 54.7 H 12/19/24 17:20: APTT 49.8 H 12/20/24 00:12: APTT 61.6 H 12/20/24 04:05: WBC 15.1 H, RBC 4.78, Hgb 11.6 L, Hct 38.9 L, MCV 81.4, MCH 24.3L, MCHC 29.8 L, RDW Std Deviation 59.7 H, RDW Coeff of Sea 20.7 H, Plt Count 338, MPV 10.6, Differential Comment , APTT 52.9 H, Sodium 136, Potassium 3.3, Chloride 100, Carbon Dioxide 21.5, Anion Gap 14, BUN 12, Creatinine 1.02, Estim Creat Clear Calc 79.98, Est GFR (MDRD) Non-Af 79, BUN/Creatinine Ratio 11.5, Glucose 96, Calcium 8.1 Rhythm Strip Rhythm Strip: A-fib Rate: 130 Cardiology Labs/Tests 12/19/24 09:47: APTT Cancelled 12/19/24 10:35: APTT 54.7 H 12/19/24 17:20: APTT 49.8 H 12/20/24 00:12: APTT 61.6 H 12/20/24 04:05: WBC 15.1 H, RBC 4.78, Hgb 11.6 L, Hct 38.9 L, MCV 81.4, MCH 24.3L, MCHC 29.8 L, Plt Count 338, MPV 10.6, APTT 52.9 H, Sodium 136, Potassium 3.3,Chloride 100, Carbon Dioxide 21.5, Anion Gap 14, BUN 12, Creatinine 1.02, Est GFR (MDRD) Non-Af 79, BUN/Creatinine Ratio 11.5, Glucose 96, Calcium 8.1 Rhythm: EKG: ECHO: Stress Test: Cardiac Cath: PCI: CT Surgery: Holter monitor: EPS: PPM: CXR: Chest CT Scan: Physical Exam Const alert and oriented x3 HEENT normocephalic Eyes EOMs intact bilaterally Neck no JVD Resp normal respiratory effort Auscultation: diminished lung sounds bilateral lower Cardio Cardio Narrative: Distant heart tones Rate: tachycardic Rhythm: abnormal rhythm irregularly irregular Heart Sounds: S1 normal and S2 normal; Negative for click, gallop or murmur GI GI Narrative: Mildly distended with faint bowel sounds. Extremity no pedal edema Neuro Neuro Narrative: Alert and oriented x 3 Psych Memory / Cognition: cognition grossly intact Assessment & Plan Assessment/Plan (1) Atrial fibrillation with RVR: PLAN: Patient's heart rate remains elevated. He reports to me he was recently cardioverted in the last 2 weeks after being on Tikosyn for 2 days at [facility]. He had been on Eliquis until his admission and was converted over to full dose IV heparin. The patient was not able to take p.o. medical therapy he was placed on IV amiodarone and the Tikosyn was discontinued. Patient's heart rate remains in the 120?140 range he reports that intermittently in his home environment it gets up to 150 and he notices it at that point in time and catches it on a [employer] mobile device. The patient also carries a history of mild LV dysfunction EF 35 to 40% he is on Entresto. At this point in time the patient is not on oral anticoagulant therapy due to his recent abscess and diverticulitis surgical intervention. Hemodynamically he is stable he is expected to have a heart rate in the 0100- 0120 range given his overall situation. I would recommend we defer elective direct-current cardioversion until he has recovered from his abdominal surgery, his white count has returned to normal, and he is back on oral anticoagulation therapy. (2) Chronic anticoagulation: PLAN: Patient is on IV heparin at this point in time. He should be converted back to his Eliquis 5 mg twice daily when he is able to take oral medical therapy and it is cleared by the surgical team. (3) LV dysfunction: PLAN: Patient is he is known to be in the 35 to 40% range by echo. He will be reevaluated by his rn float in [place]. He should be continued on the Entresto as blood pressure will tolerate. Should also be continued on beta-kleber therapy and should be placed back on oral metoprolol once he is able to take oral meds. PLAN: Plan 1. We will continue to monitor with you. 2. Once able to take oral medications we will need to start to transition him back to oral metoprolol, oral amiodarone or switch him back to his Tikosyn dose,and reinstitute Eliquis when cleared by the surgical team. Charges/Coding Visit Charges Inpatient E&M: 71105 Subs Hosp L3 12/20/24 0844 <Electronically signed by Basil Hunter MD> Cosigner Signature (if applicable): CC: ~ Signed [facility] Work Phone: 1(550) 710-187206-01-2025 Progress note Author Adeline Rivera [facility] Note Date/Time December 19, 2024 2:12p m [facility] Medical Records Department [address] [place] [address] Progress Note - Surgery 12/19/24 1409 MR#: [id number] Acct: [id number] Name: CONRAD OCONNELL Rep #:[id number] : 1955 69 From: Adeline Rivera MD PCP: Dr. Zechariah Siddiqui MD Status:ADM IN Location: ICU ICU03-1 Subjective Subjective Patient seen and evaluated on rounds earlier today. Patient states that he has been tolerating a clear liquid diet thus far. He does admit that he has been pretty cautious in terms of eating/drinking. He denies any nausea or vomiting. He does admit to passing flatus to a fairly sizable extent. He denies any othersymptoms or problems. Objective Data Objective Data Vital Signs: Vital Signs Temp Pulse Resp BP Pulse Ox O2 Del Method O2 Flow Rate 97.8 F 147 H 21 H 98/82 H 90 Room Air 2.5 12/19/24 09:00 12/19/24 10:00 12/19/24 10:00 12/19/24 10:00 12/19/24 10:40 12/19/24 10:00 12/19/24 10:40 FiO2 98 12/15/24 12:25 Oxygen Flow Rate (L/min) 2.5 Oxygen Delivery Method Room Air Weight: 227 lb 12.8 oz Body Mass Index (BMI) 32.5 Intake & Output: Intake and Output for Last 24 Hours 12/17/24 12/18/24 12/19/24 23:59 23:59 23:59 Intake Total 2761.62 / 2761.62 3367.05 / 3383.75 1544.47 / 1544.47 Output Total 1720 / 1720 4710 / 4740 387 / 387 Balance 1041.62 / 1041.62 -1342.95 / -1356.25 1157.47 / 1157.47 Lab / Micro Data 12/19/24 03:10 12/19/24 03:10 Labs: Laboratory Results - last 24 hr 12/18/24 19:35: APTT 32.2 12/19/24 03:10: WBC 14.6 H, RBC 4.55 L, Hgb 11.2 L, Hct 36.6 L, MCV 80.4, MCH 24.6 L, MCHC 30.6 L, RDW Std Deviation 58.8 H, RDW Coeff of Sea 20.3 H, Plt Count 290, MPV 10.2, APTT 62.5 H, Sodium 135, Potassium 3.2 L, Chloride 100, Carbon Dioxide 23.9, Anion Gap 11, BUN 9, Creatinine 0.91, Estim Creat Clear Calc 90.28, Est GFR (MDRD) Non-Af 90, BUN/Creatinine Ratio 10.3, Glucose 135 H, Calcium 7.9 12/19/24 09:47: APTT Cancelled 12/19/24 10:35: APTT 54.7 H Physical Exam Narrative He is alert and oriented x 3. He is in no acute distress. Abdomen is soft, nontender and nondistended. Incision dressings clean dry and intact. Assessment & Plan Assessment/Plan (1) Colonic diverticular abscess: PLAN: Plan The patient is a 69-year-old male who presented with diverticulitis with abscess. This abscess was not amenable to percutaneous drainage and so a laparoscopic drainage procedure was performed several days ago. Patient seems to be improving clinically from a surgical standpoint. He has continued to passflatus indicating the early return of bowel function. He has tolerated clear liquid diet thus far. Our plan is to advance his diet slowly. Will advance to full liquid diet. Will continue AMY drain. Appreciate medical management. Will continue to follow. 12/19/24 1412 <Electronically signed by Adeline Rivera MD> Cosigner Signature (if applicable): CC: ~ Signed [facility] Work Phone: [phone] 507-793306-01-2025 Consult note Author Jaziel Lundberg [facility] Note Date/Time December 19, 2024 1:35p m [facility] Medical Records Department [address] [place] [address] Consultation - Cardiology 12/14/24 1022 MR#: [id number] Acct: [id number] Name: CONRAD OCONNELL Rep #:[id number] : 1955 69 From: Jaziel Lundberg MD PCP: Dr. Zechariah Siddiqui MD Status:ADM IN Location: ICU ICU03-1 <Statement entered by Jaziel Lundberg MD - 12/17/24 15:34> Pt seen & evaluated w/DARA. I personally interviewed & exam the pt. I was involved in all aspects of pt's orders, interpretation of results & treatment Assessment & Plan Assessment/Plan (1) Colonic diverticular abscess: (2) PAF (paroxysmal atrial fibrillation): (3) Chronic anticoagulation: (4) Atrial fibrillation with RVR: PLAN: Cardiac care plan recommendation 69-year-old patient admitted with a left lower quadrant abdominal pain. Patient has acute sigmoid diverticulitis with abscess formation with the plan ofdrainage surgically From cardiac standpoint patient currently on heparin. In addition to dofetilide/Tikosyn for atrial fibrillation. Low-dose diuretic Lasix 20 mg. Apixaban has been on hold. Cardiac care plan will be [facility] and [facility] by the rn float. We also ordered limited echocardiogram to assess and evaluate for LV function. Patient and family would like to follow-up with the cardiology team following surgical drainage of the abscess and once he is stable Will continue to monitor and follow-up clinically. Jaziel Lundberg MD,FACC,[facility] HPI Consult Data Date of Consult: 12/19/24 HPI Narrative Reason for Consultation: Abdominal pain with diverticulitis/A-fib with RVR. HPI Narrative: CONRAD OCONNELL, is a 69 M who presents [facility] Medical History (Updated 12/18/24 @ 15:[address] Jaziel Lundberg MD) PAF (paroxysmal atrial fibrillation) Emphysema/COPD Obstructive sleep apnea Depression Essential (primary) hypertension Obesity Benign neoplasm of maxillary sinus Left bundle branch block (LBBB) Home Medications ?Medication ?Instructions ?Recorded ?Last Taken ?Type ascorbic acid (vitamin C) 500 mg 2 gm PO DAILY general health 05/05/15 05/04/15 08:00 History tablet fluticasone fur. 100 mcg-umeclid 1 ea inhalation DAILY breathing 09/27/20 Unknown History 62.5 mcg-vilant 25 mcg inhalat.powder apixaban 5 mg tablet (Eliquis) 5 mg PO BID blood thinn er 03/20/23 Unknown History albuterol sulfate 2.5 mg/3 mL 2.5 mg inhalation TID [place] N PRN 12/13/24 Unknown History (0.083 %) solution for nebulization bronchospasm balsalazide 750 mg capsule 2,250 mg PO TID ULCERATIVE COLITIS 12/13/24 Unknown History dofetilide 250 mcg capsule 250 mcg PO Q12H heart 12/1312/13/24 09:00 History ipratropium bromide 21 mcg (0.03 1 - 2 spray intranasa l Q6H PRN PRN 12/13/24 Unknown History %) nasal spray allergy symptoms metoprolol succinate 50 mg 50 mg PO Q12H blood pressur e 12/13/24 Unknown History tablet,extended release 24 hr potassium chloride 20 mEq 40 meq PO DAILY potassium Unknown History tablet,extended release(part/cryst) (Klor-Con M) sacubitril 24 mg-valsartan 26 mg 1 tab PO Q12.TCU hear t 12/13/24 Unknown History tablet (Entresto) spironolactone 25 mg tablet 25 mg PO DAILY diuretic Unknown History dapagliflozin propanediol 10 mg 10 mg PO DAILY Heart f ailure 12/18/24 Unknown History tablet (Farxiga) furosemide 40 mg tablet 40 mg PO BID diuretic Unknown History Allergy/AdvReac Type Severity Reaction Status Date / Time shellfish derived Allergy Nausea/Vom/ Verified 12/13/24 17:40 Diarrhea Family History Father Hypertension Colon cancer Mother Breast cancer Surgical History (Updated 12/15/24 @ 12:[address] Gianfranco Oropeza MD) H/O sinus surgery Social History Smoking Status: Former smoker quit date: 07/21/06 pack-years: 30 alcohol intake: current alcohol intake frequency: holidays/special occasions only Physical Exam Cardio Cardio Narrative: Patient seen and evaluated at bedside family were at bedside as well as the nursing staff The underlying cardiac rhythm is sinus rhythm. And been stable hemodynamically Cardiac exam S1-S2 is regular Chest exam clear auscultation bilateral Abdomen distended with the diffuse generalized tenderness Examination of lower extremity no lower extremity edema. Risk Stratification Risk Stratification Applicable: No Objective Data Vital Signs: Vital Signs Temp Pulse Resp BP Pulse Ox O2 Del Method O2 Flow Rate 98.9 F 88 95 H 148/72 H 95 Nasal Cannula 3 12/14/24 08:00 12/14/24 10:00 12/14/24 10:00 12/14/24 10:00 12/14/24 10:00 12/14/24 10:00 12/14/24 10:00 Oxygen Flow Rate (L/min) 3 Oxygen Delivery Method Nasal Cannula Weight: 229 lb 11.547 oz Body Mass Index (BMI) 32.8 Intake & Output: Intake and Output for Last 24 Hours 12/12/24 12/13/24 12/14/24 23:59 23:59 23:59 Intake Total 811.25 / 826.25 1824.83 / 1824.83 Output Total 200 / 200 Balance 811.25 / 826.25 1624.83 / 1624.83 Lab / Micro Data 12/19/24 03:10 12/19/24 03:10 Labs: Laboratory Results - last 24 hr 12/13/24 17:47: WBC 11.3 H, RBC 6.10, Hgb 15.1, Hct 50.0, MCV 82.0, MCH 24.8 L, MCHC 30.2 L, RDW Std Deviation 61.8 H, RDW Coeff of Sea 21.9 H, Plt Count 444, MPV 10.4, Immature Gran % (Auto) 0.500, Neut % (Auto) 74.8 H, Lymph % (Auto) 16.7 L, [place] % (Auto) 6.6, Eos % (Auto) 1.0, Baso % (Auto) 0.4, Absolute Neuts (auto) 8.5 H, Absolute Lymphs (auto) 1.89, Nucleated RBC % 0, Platelet Estimate SLT INC, Anisocytosis 2+, Sodium 140, Potassium 4.8, Chloride 101, Carbon Dioxide 24.4, Anion Gap 15, BUN 36 H, Creatinine 1.41 H, Est GFR (MDRD) Non-Af 53 L, BUN/Creatinine Ratio 25.2 H, Glucose 133 H, Calcium 10.4, Total Bilirubin 0.66, AST 30, ALT 29, Alkaline Phosphatase 61, Total Protein 7.5, Albumin 3.8, Globulin 3.7, Albumin/Globulin Ratio 1.0, Lipase 25 12/13/24 18:30: Lactic Acid 2.0 12/13/24 20:00: PT 14.6, INR 1.1, APTT 30.7 12/13/24 22:41: Lactic Acid 1.5 12/14/24 03:24: WBC 16.6 H, RBC 5.48, Hgb 13.6, Hct 44.0, MCV 80.3, MCH 24.8 L, MCHC 30.9 L, RDW Std Deviation 60.3 H, RDW Coeff of Sea 21.5 H, Plt Count 380, MPV 10.1, Immature Gran % (Auto) 0.500, Neut % (Auto) 88.2 H, Lymph % (Auto) 7.4L, [place] % (Auto) 3.7, Eos % (Auto) 0.0, Baso % (Auto) 0.2, Absolute Neuts (auto)14.7 H, Absolute Lymphs (auto) 1.23, Nucleated RBC % 0, Differential Comment SCANNED, Platelet Estimate ADEQUATE, Anisocytosis 2+, Target Cells RARE, Ovalocytes 1+, PT 15.8 H, INR 1.2, APTT 65.7 H, Sodium 141, Potassium 5.3 H, Chloride 104, Carbon Dioxide 23.8, Anion Gap 13, BUN 32 H, Creatinine 1.47 H, Estim Creat Clear Calc 55.39, Est GFR (MDRD) Non-Af 51 L, BUN/Creatinine Ratio 21.7 H, Glucose 167 H, Calcium 9.3, Total Bilirubin 1.05, AST 26, ALT 25, Alkaline Phosphatase 45, Total Protein 6.3, Albumin 3.2 L, Globulin 3.2, Albumin/Globulin Ratio 1.0 Cardiology Labs/Tests 12/13/24 17:47: WBC 11.3 H, RBC 6.10, Hgb 15.1, Hct 50.0, MCV 82.0, MCH 24.8 L, MCHC 30.2 L, Plt Count 444, MPV 10.4, Immature Gran % (Auto) 0.500, Neut % (Auto) 74.8 H, Lymph % (Auto) 16.7 L, [place] % (Auto) 6.6, Eos % (Auto) 1.0, Baso % (Auto) 0.4, Absolute Neuts (auto) 8.5 H, Nucleated RBC % 0, Sodium 140, Potassium 4.8, Chloride 101, Carbon Dioxide 24.4, Anion Gap 15, BUN 36 H, Creatinine 1.41 H, Est GFR (MDRD) Non-Af 53 L, BUN/Creatinine Ratio 25.2 H, Glucose 133 H, Calcium 10.4, Total Bilirubin 0.66 12/13/24 18:30: Lactic Acid 2.0 12/13/24 20:00: PT 14.6, INR 1.1, APTT 30.7 12/13/24 22:41: Lactic Acid 1.5 12/14/24 03:24: WBC 16.6 H, RBC 5.48, Hgb 13.6, Hct 44.0, MCV 80.3, MCH 24.8 L, MCHC 30.9 L, Plt Count 380, MPV 10.1, Immature Gran % (Auto) 0.500, Neut % (Auto) 88.2 H, Lymph % (Auto) 7.4 L, [place] % (Auto) 3.7, Eos % (Auto) 0.0, Baso %(Auto) 0.2, Absolute Neuts (auto) 14.7 H, Nucleated RBC % 0, PT 15.8 H, INR 1.2,APTT 65.7 H, Sodium 141, Potassium 5.3 H, Chloride 104, Carbon Dioxide 23.8, Anion Gap 13, BUN 32 H, Creatinine 1.47 H, Est GFR (MDRD) Non-Af 51 L, BUN/Creatinine Ratio 21.7 H, Glucose 167 H, Calcium 9.3, Total Bilirubin 1.05 Rhythm: EKG: ECHO: Stress Test: Cardiac Cath: PCI: CT Surgery: Holter monitor: EPS: PPM: CXR: Chest CT Scan: Radiography Diagnostic Testing: Radiology Impression Abdomen/Pelvis CTA 12/13/24 17:51 IMPRESSION: No evidence of abdominal aortic aneurysm or dissection. Acute sigmoid diverticulitis with an adjacent 4 cm abscess formation. Colonoscopy is recommended upon resolution to exclude malignancy. Prominent loop of proximal small bowel within the left abdomen with subtle wall thickening and adjacent stranding, this may represent reactive inflammation secondary to acute sigmoid diverticulitis versussuperimposed enteritis. Partial obstruction can not be completely excluded. Small fluid and fat containing umbilical hernia, similar in appearance to the prior study. Red Alert: Acute sigmoid diverticulitis with abscess formation. The critical information above was relayed directly by me by telephone to Oswaldo Frances on 12/13/2024 at 7:29 pm with readback verification. Reading [facility] 12/19/241334 <Electronically signed by Jaziel Lundberg MD> Cosigner Signature (if applicable): CC: Dr. Zechariah Siddiqui MD~ Signed [facility] Work Phone: [phone] Progress note Author Jaziel Lundberg [facility] Note Date/Time December 19, 2024 1:33p m [facility] Medical Records Department [address] [place] [address] Progress Note - Cardiology 12/19/24 1323 MR#: [id number] Acct: [id number] Name: CONRAD OCONNELL Rep #:[id number] : 1955 69 From: Jaziel Lundberg MD PCP: Dr. Zechariah Siddiqui MD Status:ADM IN Location: ICU ICU03-1 Subjective Subjective Seen and evaluated at bedside Discussed with the nursing staff his abdominal pain and distention is improving gradually. 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 Rate ofaround 140s. Objective Data Vital Signs: Vital Signs Temp Pulse Resp BP Pulse Ox O2 Del Method O2 Flow Rate 97.8 F 147 H 21 H 98/82 H 90 Room Air 2.5 12/19/24 09:00 12/19/24 10:00 12/19/24 10:00 12/19/24 10:00 12/19/24 10:40 12/19/24 10:00 12/19/24 10:40 FiO2 98 12/15/24 12:25 Oxygen Flow Rate (L/min) 2.5 Oxygen Delivery Method Room Air Weight: 227 lb 12.8 oz Body Mass Index (BMI) 32.5 Intake & Output: Intake and Output for Last 24 Hours 12/17/24 12/18/24 12/19/24 23:59 23:59 23:59 Intake Total 2761.62 / 2761.62 3367.05 / 3383.75 1544.47 / 1544.47 Output Total 1720 / 1720 4710 / 4740 387 / 387 Balance 1041.62 / 1041.62 -1342.95 / -1356.25 1157.47 / 1157.47 Lab / Micro Data 12/19/24 03:10 12/19/24 03:10 Labs: Laboratory Results - last 24 hr 12/18/24 12:56: APTT 34.7 12/18/24 19:35: APTT 32.2 12/19/24 03:10: WBC 14.6 H, RBC 4.55 L, Hgb 11.2 L, Hct 36.6 L, MCV 80.4, MCH 24.6 L, MCHC 30.6 L, RDW Std Deviation 58.8 H, RDW Coeff of Sea 20.3 H, Plt Count 290, MPV 10.2, APTT 62.5 H, Sodium 135, Potassium 3.2 L, Chloride 100, Carbon Dioxide 23.9, Anion Gap 11, BUN 9, Creatinine 0.91, Estim Creat Clear Calc 90.28, Est GFR (MDRD) Non-Af 90, BUN/Creatinine Ratio 10.3, Glucose 135 H, Calcium 7.9 12/19/24 09:47: APTT Cancelled 12/19/24 10:35: APTT 54.7 H Cardiology Labs/Tests 12/18/24 12:56: APTT 34.7 12/18/24 19:35: APTT 32.2 12/19/24 03:10: WBC 14.6 H, RBC 4.55 L, Hgb 11.2 L, Hct 36.6 L, MCV 80.4, MCH 24.6 L, MCHC 30.6 L, Plt Count 290, MPV 10.2, APTT 62.5 H, Sodium 135, Potassium3.2 L, Chloride 100, Carbon Dioxide 23.9, Anion Gap 11, BUN 9, Creatinine 0.91, Est GFR (MDRD) Non-Af 90, BUN/Creatinine Ratio 10.3, Glucose 135 H, Calcium 7.9 12/19/24 09:47: APTT Cancelled 12/19/24 10:35: APTT 54.7 H Rhythm: EKG: ECHO: Stress Test: Cardiac Cath: PCI: CT Surgery: Holter monitor: EPS: PPM: CXR: Chest CT Scan: Physical Exam Cardio Cardio Narrative: Cardiac rhythm revealed atrial flutter with rapid ventricular rate Cardiac exam S1-S2 is regular Chest exam diminished air entry bilateral Observation abdomen abdomen is still distended With mild tenderness Examination lower extremity no lower extremity edema noted. Assessment & Plan Assessment/Plan (1) Atrial flutter with rapid ventricular response: (2) Colonic diverticular abscess: (3) Diverticulitis: (4) Left bundle branch block (LBBB): PLAN: 69-year-old patient seen and evaluated today at bedside in ICU Patient had sigmoid diverticulitis with abscess Seen and followed by surgery Status post exploratory laparoscopy with drainage of the abscess and washout. From cardiac standpoint patient has paroxysmal atrial flutter/A-fib with RVR. And it was difficult to control the ventricular rate on multiple medication Patient does have a history of moderate LV dysfunction. He received IV digoxin,amiodarone as well as IV Lopressor. Prior to that he did not respond well to the IV Cardizem. Not a good choice due to the negative inotropic effect. Patient also has chronic left bundle branch block. EF in the range of 35-40% and has been seen and followed by the canary breeder here in [place] where he had synchronized cardioversion. And has been on Tikosyn. Tikosyn discontinued due to reduced LV function moderate. Patient currently on IV beta-kleber, IV digoxin and IV amiodarone in addition to heparin. Cardiac care plan; Will consider TAYLOR guided synchronized cardioversion Patient to be transferred back to the canary breeder to discuss further plan Also will need evaluation and workup for myocardial ischemia possible Lexiscan sestamibi which can be set up following discharge as an outpatient. In regards to the atrial fibrillation Will continue the current medication. 12/19/24 1333 <Electronically signed by Jaziel Lundberg MD> Cosigner Signature (if applicable): CC: ~ Signed [facility] Work Phone: [phone] Progress note Author Eric Gutierrez [facility] Note Date/Time December 19, 2024 10:24 am [facility] Medical Records Department [address] [place] [address] Progress Note - Hospitalist 12/19/24 0843 MR#: [id number] Acct: [id number] Name: CONRAD OCONNELL Rep #:[id number] : 1955 69 From: Eric spencer DO PCP: Dr. Zechariah Siddiqui MD Status:ADM IN Location: ICU ICU03-1 Reason for Visit Reason for Visit: Diagnoses Essential (primary) hypertension (12/13/24) Left bundle-branch block, unspecified (12/13/24) Paroxysmal atrial fibrillation (12/13/24) Unspecified atrial fibrillation (12/13/24) Unspecified atrial flutter (12/13/24) Diverticulitis of large intestine with perforation and abscess without bleeding (12/13/24) Diverticulitis of intestine, part unspecified, without perforation or abscess without bleeding (12/13/24) Unspecified abdominal pain (12/13/24) Abnormal electrocardiogram [ECG] [EKG] (12/13/24) Subjective Subjective Saw patient at bedside this morning. Patient was about to work with therapy when I saw him. Stated he a bit better today than yesterday after eating some fluid off with the IV Lasix. Has been tolerating the clear liquid diet well. No other new concerns today. Objective Data Objective Data Vital Signs: Vital Signs Temp Pulse Resp BP Pulse Ox O2 Del Method O2 Flow Rate 97.8 F 133 H 26 H 131/91 H 97 Nasal Cannula 2 12/19/24 03:00 12/19/24 08:00 12/19/24 08:00 12/19/24 08:00 12/19/24 08:00 12/19/24 08:00 12/19/24 08:00 FiO2 98 12/15/24 12:25 Oxygen Flow Rate (L/min) 2 Oxygen Delivery Method Nasal Cannula Weight: 103.328 kg Body Mass Index (BMI) 32.5 Intake & Output: Intake and Output for Last 24 Hours 12/17/24 12/18/24 12/19/24 23:59 23:59 23:59 Intake Total 2761.62 / 2761.62 3367.05 / 3383.75 245.83 / 245.83 Output Total 1720 / 1720 4710 / 4740 387 / 387 Balance 1041.62 / 1041.62 -1342.95 / -1356.25 -141.17 / -141.17 Lab / Micro Data 12/19/24 03:10 12/19/24 03:10 Labs: Laboratory Results - last 24 hr 12/18/24 12:56: APTT 34.7 12/18/24 19:35: APTT 32.2 12/19/24 03:10: WBC 14.6 H, RBC 4.55 L, Hgb 11.2 L, Hct 36.6 L, MCV 80.4, MCH 24.6 L, MCHC 30.6 L, RDW Std Deviation 58.8 H, RDW Coeff of Sea 20.3 H, Plt Count 290, MPV 10.2, APTT 62.5 H, Sodium 135, Potassium 3.2 L, Chloride 100, Carbon Dioxide 23.9, Anion Gap 11, BUN 9, Creatinine 0.91, Estim Creat Clear Calc 90.28, Est GFR (MDRD) Non-Af 90, BUN/Creatinine Ratio 10.3, Glucose 135 H, Calcium 7.9 Physical Exam Const alert, oriented x3 and no apparent distress Constitutional Narrative: Pleasant elderly male, class I obesity, mildly fatigued appearing but otherwise sitting back comfortably in bed, conversing normally, in no acute distress. Stable. General Appearance: cooperative and comfortable HEENT normocephalic, head/scalp atraumatic, hearing grossly normal bilaterally, nasal mucous membranes and turbinates normal and moist oral mucous membranes Eyes PERRL, EOMs intact bilaterally and conjunctivae normal Neck full ROM Chest inspection of chest normal Resp normal respiratory effort and no use of accessory muscles Resp Narrative: Breathing comfortably on 2 L nasal cannula at rest. Mildly decreased breath sounds at bilateral lung bases, otherwise good air movement throughout with no wheezing or crackles noted. Stable. Cardio no murmurs and peripheral pulses 2+ throughout Cardio Narrative: A-fib with RVR. GI GI Narrative: Drain in place with serosanguineous fluid noted. Mild abdominal distention but abdomen otherwise soft and only mildly tender to palpation. Improving. Back/Spine normal ROM Extremity normal to inspection, full ROM and no pedal edema Skin no rashes or lesions noted Psych mental status grossly normal Assessment & Plan Assessment/Plan (1) Diverticulitis: (2) Colonic diverticular abscess: (3) Atrial fibrillation with RVR: PLAN: Plan Patient is a 69-year-old male who presented to [facility] ED on 12/13/2024 with worsening abdominal pain. 1. Sigmoid diverticulitis with abscess ? General Surgery following. CT abdomen pelvis on admit showed acute sigmoid diverticulitis with an adjacent 4 cm abscess formation. S/p exploratory laparoscopy with drainage of abscess, washout and drain placement with surgery on 12/15. Patient tolerated procedure well. Slowly improving and is passing flatus. Initiated on clear liquid diet on 12/18. Continue IV Zosyn. Continue symptom control with IV pain and nausea medications as needed. 2. Paroxysmal A-fib/flutter with RVR ? Cardiology following. Follows with cardiology EP in [place]; completed Tikosyn loading followed by cardioversion there last week. Unfortunately was only in sinus rhythm for 2 days before going back into A-fib. Was in A-fib with RVR on arrival here. Echo 12/14 showed moderately dilated LV, EF 35 to 40%, no other abnormalities and stable from previous. Patient's heart rate has been difficult to control while here. Completed 4 doses of IV digoxin on 12/17. Currently treating with IV amiodarone, IV Lopressor every 8 hours and IV digoxin daily. Remains in A-fib/flutter but rate is somewhat improved from previous days. Continue heparin drip for anticoagulation. Continue cardiac monitoring. Appreciate cardiology recommendations. 3. History of HFrEF, hypertension ? Follows with cardiology in [place]. Last echo in 2023 showed EF 40%. Repeat echo on 12/14 as noted above with no change from previous. Lasix had been held for several days with borderline low blood pressures but patient weight was increasing and she appeared more volume overloaded with slightly worsening oxygen requirements. Started on IV Lasix 40 mg twice daily on 12/18 with good urine output; will continue this through 12/19 and plan to resume home p.o. Lasix 40 mg daily on 12/20. Per cardiology recommendations, will start Entresto at low-dose on 12/19. Continue to monitor closely. 4. Mild acute hypoxia in setting of COPD ? 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 Not on home oxygen, requiring up to 3 L nasal cannula to maintain appropriate oxygen saturations here. Breathing comfortably and lung sounds clear. Suspect primarily secondary to poor respiratory excursion in setting of abdominal pain from abscess as above. Continue incentive spirometry. Continue home inhalers. Wean supplemental oxygen as able. 5. Class I obesity with KIM ? BMI 33 on admit. Encouraged weight loss. Continue CPAP at night and with naps. DVT prophylaxis: Not indicated, on heparin drip CODE STATUS: Full code, verified Expected disposition: Home, TBD Total clinical time spent by myself addressing the patient's medical issues, reviewing all the data, and collaborating with patient's care team: 35 minutes. Charges/Coding Visit Charges Inpatient E&M: 48070 Subs Hosp L2 12/19/24 1024 <Electronically signed by Eric Gutierrez DO> Cosigner Signature (if applicable): CC: ~ Signed [facility] Work Phone: 1(237) 775-270005-31-2025 Progress note Author Jaziel Lundberg [facility] Note Date/Time December 18, 2024 3:18p m [facility] Medical Records Department [address] [place] [address] Progress Note - Cardiology 12/18/24 1511 MR#: [id number] Acct: [id number] Name: CONRAD OCONNELL Rep #:[id number] : 1955 69 From: Jaziel Lundberg MD PCP: Dr. Zechariah Siddiqui MD Status:ADM IN Location: ICU ICU03-1 Subjective Subjective Patient seen and evaluated at bedside at bedside Lying in bed, abdomen still distended Less discomfort and less abdominal pain. Objective Data Vital Signs: Vital Signs Temp Pulse Resp BP Pulse Ox O2 Del Method O2 Flow Rate 98.0 F 128 H 22 H 113/81 H 98 Nasal Cannula 2 12/18/24 11:00 12/18/24 14:00 12/18/24 13:00 12/18/24 14:00 12/18/24 14:00 12/18/24 14:00 12/18/24 14:00 FiO2 98 12/15/24 12:25 Oxygen Flow Rate (L/min) 2 Oxygen Delivery Method Nasal Cannula Weight: 231 lb 1.6 oz Body Mass Index (BMI) 33.1 Intake & Output: Intake and Output for Last 24 Hours 12/16/24 12/17/24 12/18/24 23:59 23:59 23:59 Intake Total 2625.41 / 2635.41 2761.62 / 2761.62 1731.45 / 1731.45 Output Total 1653 / 1653 1720 / 1720 1130 / 1130 Balance 972.41 / 982.41 1041.62 / 1041.62 601.45 / 601.45 Lab / Micro Data 12/18/24 05:30 12/18/24 05:30 Labs: Laboratory Results - last 24 hr 12/17/24 18:30: APTT 60.5 H 12/18/24 05:30: WBC 13.5 H, RBC 4.82, Hgb 11.8 L, Hct 39.7 L, MCV 82.4, MCH 24.5L, MCHC 29.7 L, RDW Std Deviation 61.9 H, RDW Coeff of Sea 21.0 H, Plt Count 284, MPV 10.7, APTT 40.2 H, Sodium 141, Potassium 3.9, Chloride 111 H, Carbon Dioxide 21.0, Anion Gap 9, BUN 11, Creatinine 0.81, Estim Creat Clear Calc 101.43, Est GFR (MDRD) Non-Af 94, BUN/Creatinine Ratio 13.7, Glucose 124 H, Calcium 7.6 12/18/24 12:56: APTT 34.7 Cardiology Labs/Tests 12/17/24 18:30: APTT 60.5 H 12/18/24 05:30: WBC 13.5 H, RBC 4.82, Hgb 11.8 L, Hct 39.7 L, MCV 82.4, MCH 24.5L, MCHC 29.7 L, Plt Count 284, MPV 10.7, APTT 40.2 H, Sodium 141, Potassium 3.9,Chloride 111 H, Carbon Dioxide 21.0, Anion Gap 9, BUN 11, Creatinine 0.81, Est GFR (MDRD) Non-Af 94, BUN/Creatinine Ratio 13.7, Glucose 124 H, Calcium 7.6 12/18/24 12:56: APTT 34.7 Rhythm: EKG: ECHO: Stress Test: Cardiac Cath: PCI: CT Surgery: Holter monitor: EPS: PPM: CXR: Chest CT Scan: Physical Exam Cardio Cardio Narrative: Cardiac examination; review of cardiac telemetry showed atrial flutter with rapid ventricular rate On cardiac exam S1-S2 is irregular Chest exam mildly diminished air entry bilateral Examination of the abdomen distended with mild generalized tenderness on palpation. Examination lower extremity no lower extremity edema. Assessment & Plan Assessment/Plan (1) PAF (paroxysmal atrial fibrillation): (2) Essential (primary) hypertension: (3) Diverticulitis: (4) Atrial flutter with rapid ventricular response: PLAN: 69-year-old patient with history of diverticulitis With abscess underwent exploratory laparoscopic drainage and washout by the surgical team. Patient has atrial flutter with variable ventricular rate and has been seen by the EP And was on Tikosyn on which I discontinued due to reduced LV function Ejection fraction in the range of 35-40% Patient has a chronic left bundle branch block Paroxysmal atrial fibrillation He has been on rate control using Cardizem beta-kleber and digoxin still he hada very fast ventricular rate of around 120?130. Cardiac care plan; I discontinued the Cardizem I started on amiodarone IV as per protocol Will continue on the Lopressor IV as well as the digoxin. Patient has a distended abdomen with diverticulitis and abscess. Will not be a good candidate for a TAYLOR at this point we will continue for rate control In addition I discussed guideline directed medical therapy for the reduced EF hehad a moderate LV dysfunction ejection fraction the range of 35-40% To start on Entresto he has been on Entresto before in addition to Aldactone andFarxiga. Once he is stable and completed treatment for the diverticular abscess patient to follow-up with the EP for continuation of cardiac care. I explained this in detail to the patient and the family his daughter is a ICU nurse. 12/18/24 1518 <Electronically signed by Jaziel Lundberg MD> Cosigner Signature (if applicable): CC: ~ Signed [facility] Work Phone: [phone]) 362-227205-31-2025 Progress note Author Eric Gutierrez [facility] Note Date/Time December 18, 2024 10:44 am [facility] Medical Records Department [address] [facility] [place] [address] Progress Note - Hospitalist 12/18/24 0944 MR#: [id number] Acct: [id number] Name: CONRAD OCONNELL Rep #:[id number] : 1955 69 From: Eric spencer DO PCP: Dr. Zechariah Siddiqui MD Status:ADM IN Location: ICU ICU03-1 Reason for Visit Reason for Visit: Diagnoses Essential (primary) hypertension (12/13/24) Left bundle-branch block, unspecified (12/13/24) Paroxysmal atrial fibrillation (12/13/24) Unspecified atrial fibrillation (12/13/24) Diverticulitis of large intestine with perforation and abscess without bleeding (12/13/24) Diverticulitis of intestine, part unspecified, without perforation or abscess without bleeding (12/13/24) Unspecified abdominal pain (12/13/24) Abnormal electrocardiogram [ECG] [EKG] (12/13/24) Subjective Subjective Saw patient at bedside this morning. Patient sitting back comfortably in bed, conversing normally, in no acute distress. Was seen by general surgery this morning and started on a clear liquid diet. States he feels slightly improved from a bowel standpoint compared to yesterday. Continues to deny any palpitations. No other new concerns this morning. Objective Data Objective Data Vital Signs: Vital Signs Temp Pulse Resp BP Pulse Ox O2 Del Method O2 Flow Rate 98.4 F 121 H 23 H 89/59 L 91 CPAP 3 12/18/24 08:00 12/18/24 09:00 12/18/24 09:00 12/18/24 09:00 12/18/24 09:00 12/18/24 09:00 12/18/24 09:00 FiO2 98 12/15/24 12:25 Oxygen Flow Rate (L/min) 3 Oxygen Delivery Method CPAP Weight: 104.825 kg Body Mass Index (BMI) 33.1 Intake & Output: Intake and Output for Last 24 Hours 12/16/24 12/17/24 12/18/24 23:59 23:59 23:59 Intake Total 2625.41 / 2635.41 2761.62 / 2761.62 1253.15 / 1253.15 Output Total 1653 / 1653 1720 / 1720 800 / 800 Balance 972.41 / 982.41 1041.62 / 1041.62 453.15 / 453.15 Lab / Micro Data 12/18/24 05:30 12/18/24 05:30 Labs: Laboratory Results - last 24 hr 12/17/24 04:59: WBC 13.0 H, RBC 4.71, Hgb 11.6 L, Hct 38.7 L, MCV 82.2, MCH 24.6 L, MCHC 30.0 L, RDW Std Deviation 61.2 H, RDW Coeff of Sea 20.9 H, Plt Count 288, MPV 10.3 12/17/24 12:15: APTT 60.5 H 12/17/24 18:30: APTT 60.5 H 12/18/24 05:30: WBC 13.5 H, RBC 4.82, Hgb 11.8 L, Hct 39.7 L, MCV 82.4, MCH 24.5 L, MCHC 29.7 L, RDW Std Deviation 61.9 H, RDW Coeff of Sea 21.0 H, Plt Count 284, MPV 10.7, APTT 40.2 H, Sodium 141, Potassium 3.9, Chloride 111 H, Carbon Dioxide 21.0, Anion Gap 9, BUN 11, Creatinine 0.81, Estim Creat Clear Calc 101.43, Est GFR (MDRD) Non-Af 94, BUN/Creatinine Ratio 13.7, Glucose 124 H, Calcium 7.6 Physical Exam Const alert, oriented x3 and no apparent distress Constitutional Narrative: Pleasant elderly male, class I obesity, mildly fatigued appearing but otherwise sitting back comfortably in bed, conversing normally, in no acute distress. Stable. General Appearance: cooperative and comfortable HEENT normocephalic, head/scalp atraumatic, hearing grossly normal bilaterally, nasal mucous membranes and turbinates normal and moist oral mucous membranes Eyes PERRL, EOMs intact bilaterally and conjunctivae normal Neck full ROM Chest inspection of chest normal Resp normal respiratory effort and no use of accessory muscles Resp Narrative: Breathing comfortably on 3 L nasal cannula at rest. Mildly decreased breath sounds at bilateral lung bases, otherwise good air movement throughout with no wheezing or crackles noted. Stable. Cardio no murmurs and peripheral pulses 2+ throughout Cardio Narrative: A-fib with RVR. GI GI Narrative: Drain in place with serosanguineous fluid noted. Mild abdominal distention but abdomen otherwise soft and only mildly tender to palpation. Improving. Back/Spine normal ROM Extremity normal to inspection, full ROM and no pedal edema Skin no rashes or lesions noted Psych mental status grossly normal Assessment & Plan Assessment/Plan (1) Diverticulitis: (2) Colonic diverticular abscess: (3) Atrial fibrillation with RVR: PLAN: Plan Patient is a 69-year-old male who presented to [facility] ED on 12/13/2024 with worsening abdominal pain. 1. Sigmoid diverticulitis with abscess ? General Surgery following. CT abdomen pelvis on admit showed acute sigmoid diverticulitis with an adjacent 4 cm abscess formation. S/p exploratory laparoscopy with drainage of abscess, washout and drain placement with surgery on 12/15. Patient tolerated procedure well. Slowly improving and is passing flatus. Initiated on clear liquid diet on 12/18. Continue IV Zosyn. Continue symptom control with IV pain and nausea medications as needed. 2. Paroxysmal A-fib/flutter with RVR ? Cardiology following. Follows with cardiology EP in [place]; completed Tikosyn loading followed by cardioversion there last week. Unfortunately was only in sinus rhythm for 2 days before going back into A-fib. Was in A-fib with RVR on arrival here. Echo 12/14 showed moderately dilated LV, EF 35 to 40%, no other abnormalities and stable from previous. Patient's heart rate has been difficult to control while here. Was on amiodarone for time but this was discontinued on 12/16 as it was ineffective. Completed 4 doses of IV digoxin on 12/17. Patient currently on Cardizem drip, IV Lopressor every 8 hours and IV digoxin daily. Remains in A-fib/flutter but rate is somewhat improved from previous days. Continue heparin drip for anticoagulation. Continue cardiac monitoring. Appreciate cardiology recommendations. 3. History of HFrEF, hypertension ? Follows with cardiology in [place]. Last echo in 2022 showed EF 40%. Repeat echo on 12/14 as noted above with no change from previous. Treating as above. Holding home Entresto and spironolactone. 4. Mild acute hypoxia in setting of COPD ? Manager Occupational following. Not on home oxygen, requiring up to 3 L nasal cannula to maintain appropriate oxygen saturations here. Breathing comfortably and lung sounds clear. Suspect primarily secondary to poor respiratory excursion in setting of abdominal pain from abscess as above. Continue incentive spirometry. Continue home inhalers. Wean supplemental oxygen as able. 5. Class I obesity with KIM ? BMI 33 on admit. Encouraged weight loss. Continue CPAP at night and with naps. DVT prophylaxis: Not indicated, on heparin drip CODE STATUS: Full code, verified Expected disposition: Home, TBD Total clinical time spent by myself addressing the patient's medical issues, reviewing all the data, and collaborating with patient's care team: 35 minutes. Charges/Coding Visit Charges Inpatient E&M: 60628 Subs Hosp L2 12/18/24 1044 <Electronically signed by Eric Gutierrez DO> Cosigner Signature (if applicable): CC: ~ Signed [facility] Work Phone: [phone]) [phone] Progress note Author Adeline Rivera [facility] Note Date/Time December 18, 2024 5:51a m [facility] Medical Records Department [address] [place] [address] Progress Note - Surgery 12/18/24 0549 MR#: [id number] Acct: [id number] Name: CONRAD OCONNELL Rep #:[id number] : 1955 69 From: Adeline Rivera MD PCP: Dr. Zechariah Siddiqui MD Status:ADM IN Location: ICU ICU03-1 Subjective Subjective Patient seen and evaluated on rounds this morning. He states that he is doing well. He states that he had a bowel movement along with a significant amount offlatus. He states his belly seems much softer than yesterday. Otherwise he is doing well clinically Objective Data Objective Data Vital Signs: Vital Signs Temp Pulse Resp BP Pulse Ox O2 Del Method O2 Flow Rate 98.6 F 120 H 24 H 129/117 H 93 Bi-pap 3 12/17/24 17:00 12/18/24 03:00 12/18/24 03:00 12/18/24 01:00 12/18/24 03:00 12/18/24 01:00 12/18/24 01:00 FiO2 98 12/15/24 12:25 Oxygen Flow Rate (L/min) 3 Oxygen Delivery Method Bi-pap Weight: 231 lb 1.6 oz Body Mass Index (BMI) 33.1 Intake & Output: Intake and Output for Last 24 Hours 12/16/24 12/17/24 12/18/24 23:59 23:59 23:59 Intake Total 2625.41 / 2635.41 2761.62 / 2761.62 152.75 / 152.75 Output Total 1653 / 1653 1720 / 1720 Balance 972.41 / 982.41 1041.62 / 1041.62 152.75 / 152.75 Lab / Micro Data 12/18/24 05:30 12/17/24 04:59 Labs: Laboratory Results - last 24 hr 12/17/24 04:59: WBC 13.0 H, RBC 4.71, Hgb 11.6 L, Hct 38.7 L, MCV 82.2, MCH 24.6L, MCHC 30.0 L, RDW Std Deviation 61.2 H, RDW Coeff of Sea 20.9 H, Plt Count 288, MPV 10.3 12/17/24 12:15: APTT 60.5 H 12/17/24 18:30: APTT 60.5 H 12/18/24 05:30: WBC 13.5 H, RBC 4.82, Hgb 11.8 L, Hct 39.7 L, MCV 82.4, MCH 24.5L, MCHC 29.7 L, RDW Std Deviation 61.9 H, RDW Coeff of Sea 21.0 H, Plt Count 284, MPV 10.7 Physical Exam Narrative He is alert and oriented x 3. He is in no acute distress. Abdomen is soft and still somewhat distended. Minimal discomfort with palpation. AMY drain with serosanguineous output. Incisions appear to be clean dry and intact. Assessment & Plan Assessment/Plan (1) Colonic diverticular abscess: PLAN: Plan The patient is a 69-year-old male who presented with diverticulitis with abscess. This abscess was not amenable to percutaneous drainage and so a laparoscopic drainage procedure was performed several days ago. Patient seems to be improving clinically from a surgical standpoint. He has passed gas and had a bowel movement indicating the early return of bowel function. He is stillsomewhat distended. We will begin a trial of clear liquid diet. Our plan is toadvance his diet slowly. Will continue AMY drain. Appreciate medical management. Will continue to follow. 12/18/24 0551 <Electronically signed by Adeline Rivera MD> Cosigner Signature (if applicable): CC: ~ Signed [facility] Work Phone: [phone]) 436-492705-30-2025 Progress note Author Eric Gutierrez [facility] Note Date/Time December 17, 2024 12:48 pm [facility] Medical Records Department [address] [place] [address] Progress Note - Hospitalist 12/17/24 1151 MR#: [id number] Acct: [id number] Name: ANISHCONARD Rep #:[id number] : 1955 69 From: Eric spencer DO PCP: Dr. Zechariah Siddiqui MD Status:ADM IN Location: ICU ICU03-1 Reason for Visit Reason for Visit: Diagnoses Essential (primary) hypertension (12/13/24) Left bundle-branch block, unspecified (12/13/24) Paroxysmal atrial fibrillation (12/13/24) Unspecified atrial fibrillation (12/13/24) Diverticulitis of large intestine with perforation and abscess without bleeding (12/13/24) Diverticulitis of intestine, part unspecified, without perforation or abscess without bleeding (12/13/24) Unspecified abdominal pain (12/13/24) Abnormal electrocardiogram [ECG] [EKG] (12/13/24) Subjective Subjective Saw patient at bedside this morning, daughter present. Patient was sitting up comfortably in bedside chair, conversing normally, in no acute distress. Noted that he has been passing gas and his abdomen feels slightly less distended today than yesterday. Patient continues to be in A-fib with RVR though his heart rate was in the 100s to 120s more consistently when I saw him. He continues to deny any palpitations. No other new concerns today. Objective Data Objective Data Vital Signs: Vital Signs Temp Pulse Resp BP Pulse Ox O2 Del Method O2 Flow Rate 96.8 F L 102 H 22 H 96/66 97 Nasal Cannula 2 12/17/24 08:42 12/17/24 10:26 12/17/24 10:26 12/17/24 10:26 12/17/24 10:26 12/17/24 08:00 12/17/24 10:26 FiO2 98 12/15/24 12:25 Oxygen Flow Rate (L/min) 2 Oxygen Delivery Method Nasal Cannula Weight: 106.4 kg Body Mass Index (BMI) 33.6 Intake & Output: Intake and Output for Last 24 Hours 12/15/24 12/16/24 12/17/24 23:59 23:59 23:59 Intake Total 1631.77 / 1631.77 2625.41 / 2635.41 1418.52 / 1418.52 Output Total 1740 / 2190 1653 / 1653 800 / 800 Balance -108.23 / -558.23 972.41 / 982.41 618.52 / 618.52 Lab / Micro Data 12/17/24 04:59 12/17/24 04:59 Labs: Laboratory Results - last 24 hr 12/16/24 13:30: APTT 171.6 H* 12/16/24 22:32: APTT 34.5 12/17/24 04:59: WBC 13.0 H, RBC 4.71, Hgb 11.6 L, Hct 38.7 L, MCV 82.2, MCH 24.6 L, MCHC 30.0 L, RDW Std Deviation 61.2 H, RDW Coeff of Sea 20.9 H, Plt Count 288, MPV 10.3, APTT 44.9 H, Sodium 140, Potassium 3.9, Chloride 109 H, Carbon Dioxide 22.2, Anion Gap 9, BUN 16, Creatinine 0.95, Estim Creat Clear Calc 86.26, Est GFR (MDRD) Non-Af 86, BUN/Creatinine Ratio 16.8, Glucose 125 H, Calcium 8.5 Physical Exam Const alert, oriented x3 and no apparent distress Constitutional Narrative: Pleasant elderly male, class I obesity, mildly fatigued appearing but otherwise sitting back comfortably in bed, conversing normally, in no acute distress. Stable. General Appearance: cooperative and comfortable HEENT normocephalic, head/scalp atraumatic, hearing grossly normal bilaterally, nasal mucous membranes and turbinates normal and moist oral mucous membranes Eyes PERRL, EOMs intact bilaterally and conjunctivae normal Neck full ROM Chest inspection of chest normal Resp normal respiratory effort and no use of accessory muscles Resp Narrative: Breathing comfortably on 2 L nasal cannula at rest. Mildly decreased breath sounds at bilateral lung bases, otherwise good air movement throughout with no wheezing or crackles noted. Stable. Cardio no murmurs and peripheral pulses 2+ throughout Cardio Narrative: A-fib with RVR. GI GI Narrative: Drain in place with serosanguineous fluid noted. Mild to moderate abdominal distention but abdomen otherwise soft and only mildly tender to palpation. Improving. Back/Spine normal ROM Extremity normal to inspection, full ROM and no pedal edema Skin no rashes or lesions noted Psych mental status grossly normal Assessment & Plan Assessment/Plan (1) Diverticulitis: (2) Colonic diverticular abscess: (3) Atrial fibrillation with RVR: PLAN: Plan Patient is a 69-year-old male who presented to [facility] ED on 12/13/2024 with worsening abdominal pain. 1. Sigmoid diverticulitis with abscess ? General Surgery following. CT abdomen pelvis on admit showed acute sigmoid diverticulitis with an adjacent 4 cm abscess formation. S/p exploratory laparoscopy with drainage of abscess, washout and drain placement with surgery on 12/15. Patient tolerated procedure well. Slowly improving and is passing flatus. Will remain n.p.o. but patient is okay for p.o. medications at this time. Will continue IV Zosyn. Continue symptom control with IV pain and nausea medications as needed. 2. Paroxysmal A-fib/flutter with RVR ? Cardiology following. Follows with cardiology EP in [place]; completed Tikosyn loading followed by cardioversion there last week. Unfortunately was only in sinus rhythm for 2 days before going back into A-fib. Was in A-fib with RVR on arrival here. Echo 12/14 showed moderately dilated LV, EF 35 to 40%, no other abnormalities and stable from previous. Patient's heart rate has been difficult to control while here. Was on amiodarone for time but this was discontinued on 12/16 as it was ineffective. Patient currently on Cardizem drip and IV Lopressor every 8 hours, and he completed 4 doses of IV digoxin on 12/17. Remains in A-fib/flutter but rate is improved from previous days. Continue heparin drip for anticoagulation. Continue cardiac monitoring. Appreciate cardiology recommendations. 3. History of HFrEF, hypertension ? Follows with cardiology in [place]. Last echo in 2022 showed EF 40%. Repeat echo on 12/14 as noted above with no change from previous. Treating as above. Holding home Entresto and spironolactone. 4. Mild acute hypoxia in setting of COPD ? Manager Occupational following. Not on home oxygen, requiring up to 3 L nasal cannula to maintain appropriate oxygen saturations here. Breathing comfortably and lung sounds clear. Suspect primarily secondary to poor respiratory excursion in setting of abdominal pain from abscess as above. Continue incentive spirometry. Continue home inhalers. Wean supplemental oxygen as able. 5. Class I obesity with KIM ? BMI 33 on admit. Encouraged weight loss. Continue CPAP at night and with naps. DVT prophylaxis: Not indicated, on heparin drip CODE STATUS: Full code, verified Expected disposition: Home, TBD Total clinical time spent by myself addressing the patient's medical issues, reviewing all the data, and collaborating with patient's care team: 35 minutes. Charges/Coding Visit Charges Inpatient E&M: 86692 Subs Hosp L2 12/17/24 1248 <Electronically signed by Eric Gutierrez DO> Cosigner Signature (if applicable): CC: ~ Signed [facility] Work Phone: [phone]) [phone] Progress note Author Delano Harris [facility] Note Date/Time December 17, 2024 7:36a m [facility] Medical Records Department [address] [place] [address] Progress Note - Surgery 12/17/24 0731 MR#: [id number] Acct: [id number] Name: ANISHCONRAD Mario Rep #:[id number] : 1955 69 From: Delano knox MD PCP: Dr. Zechariah Siddiqui MD Status:ADM IN Location: ICU ICU03-1 Subjective Subjective Patient is currently in A-fib with RVR. He reports he has passed flatus. He denies nausea or vomiting. Objective Data Objective Data Vital Signs: Vital Signs Temp Pulse Resp BP Pulse Ox O2 Del Method O2 Flow Rate 98.0 F 131 H 21 H 102/81 H 94 Nasal Cannula 2 12/17/24 03:00 12/17/24 07:00 12/17/24 07:00 12/17/24 07:00 12/17/24 07:00 12/17/24 07:00 12/17/24 07:00 FiO2 98 12/15/24 12:25 Oxygen Flow Rate (L/min) 2 Oxygen Delivery Method Nasal Cannula Weight: 234 lb 9.149 oz Body Mass Index (BMI) 33.6 Intake & Output: Intake and Output for Last 24 Hours 12/15/24 12/16/24 12/17/24 23:59 23:59 23:59 Intake Total 1631.77 / 1631.77 2625.41 / 2635.41 1207 / 1207 Output Total 1740 / 2190 1653 / 1653 800 / 800 Balance -108.23 / -558.23 972.41 / 982.41 407 / 407 Lab / Micro Data 12/17/24 04:59 12/17/24 04:59 Labs: Laboratory Results - last 24 hr 12/16/24 03:40: Magnesium 2.1 12/16/24 13:30: APTT 171.6 H* 12/16/24 22:32: APTT 34.5 12/17/24 04:59: WBC 13.0 H, RBC 4.71, Hgb 11.6 L, Hct 38.7 L, MCV 82.2, MCH 24.6L, MCHC 30.0 L, RDW Std Deviation 61.2 H, RDW Coeff of Sea 20.9 H, Plt Count 288, MPV 10.3, APTT 44.9 H, Sodium 140, Potassium 3.9, Chloride 109 H, Carbon Dioxide 22.2, Anion Gap 9, BUN 16, Creatinine 0.95, Estim Creat Clear Calc 86.26, Est GFR (MDRD) Non-Af 86, BUN/Creatinine Ratio 16.8, Glucose 125 H, Calcium 8.5 Radiography Diagnostic Testing: Radiology Impression KUB X-Ray 12/16/24 10:00 IMPRESSION: Nonobstructive bowel gas pattern. Reading Location: [facility] Physical Exam Const oriented x3 and no apparent distress Resp normal respiratory effort GI soft to palpation Inspection: abdominal distention Assessment & Plan Assessment/Plan (1) Colonic diverticular abscess: PLAN: Patient is postoperative day 2 from laparoscopic drainage of abscess. Patient began to pass flatus. He went back into A-fib RVR yesterday. He does not report an appetite. His abdomen is softer than it was yesterday but still distended. I would like to wait until he becomes less distended before startinga diet. He is okay for p.o. meds. Continue antibiotics. Delano Harris MD Pager: [facility] [address] [place] [address], [address] [place] [address] Office: 12/17/24 0736 <Electronically signed by Delano Harris MD> Cosigner Signature (if applicable): CC: ~ Signed [facility] Work Phone: [phone] Progress note Author Jaziel Lundberg [facility] Note Date/Time December 16, 2024 3:59p m [facility] Medical Records Department [address] [place] [address] Progress Note - Cardiology 12/16/24 1541 MR#: [id number] Acct: [id number] Name: CONRAD OCONNELL Rep #:[id number] : 1955 69 From: Jaziel Lundberg MD PCP: Dr. Zechariah Siddiqui MD Status:ADM IN Location: ICU ICU03-1 Subjective Subjective Patient seen and evaluated at bedside and daughter were at bedside. He has diverticular abscess underwent laparoscopic drainage by the CTS Symptoms with abdominal pain with mild distention Objective Data Vital Signs: Vital Signs Temp Pulse Resp BP Pulse Ox O2 Del Method O2 Flow Rate 97.5 F L 149 H 24 H 91/76 92 Nasal Cannula 2 12/16/24 12:54 12/16/24 14:15 12/16/24 14:15 12/16/24 14:15 12/16/24 14:15 12/16/24 14:15 12/16/24 14:15 FiO2 98 12/15/24 12:25 Oxygen Flow Rate (L/min) 2 Oxygen Delivery Method Nasal Cannula Weight: 229 lb 14.4 oz Body Mass Index (BMI) 33.0 Intake & Output: Intake and Output for Last 24 Hours 12/14/24 12/15/24 12/16/24 23:59 23:59 23:59 Intake Total 2125.83 / 2125.83 1631.77 / 1631.77 2412.89 / 2412.89 Output Total 1175 / 1575 1740 / 2190 1144 / 1144 Balance 950.83 / 550.83 -108.23 / -558.23 1268.89 / 1268.89 Lab / Micro Data 12/16/24 03:40 12/16/24 03:40 Labs: Laboratory Results - last 24 hr 12/15/24 21:30: APTT 28.9 12/16/24 03:40: WBC 14.8 H, RBC 4.75, Hgb 11.8 L, Hct 39.7 L, MCV 83.6, MCH 24.8L, MCHC 29.7 L, RDW Std Deviation 63.8 H, RDW Coeff of Sea 21.3 H, Plt Count 311, MPV 10.3, APTT 98.3 H*, Sodium 146 H, Potassium 4.2, Chloride 111 H, CarbonDioxide 23.1, Anion Gap 12, BUN 24 H, Creatinine 1.19, Estim Creat Clear Calc 68.70, Est GFR (MDRD) Non-Af 65, BUN/Creatinine Ratio 20.5 H, Glucose 152 H, Calcium 8.8, Magnesium 2.1 12/16/24 13:30: APTT 171.6 H* Cardiology Labs/Tests 12/15/24 21:30: APTT 28.9 12/16/24 03:40: WBC 14.8 H, RBC 4.75, Hgb 11.8 L, Hct 39.7 L, MCV 83.6, MCH 24.8L, MCHC 29.7 L, Plt Count 311, MPV 10.3, APTT 98.3 H*, Sodium 146 H, Potassium 4.2, Chloride 111 H, Carbon Dioxide 23.1, Anion Gap 12, BUN 24 H, Creatinine 1.19, Est GFR (MDRD) Non-Af 65, BUN/Creatinine Ratio 20.5 H, Glucose 152 H, Calcium 8.8, Magnesium 2.1 12/16/24 13:30: APTT 171.6 H* Rhythm: EKG: ECHO: Stress Test: Cardiac Cath: PCI: CT Surgery: Holter monitor: EPS: PPM: CXR: Chest CT Scan: Radiography Diagnostic Testing: Radiology Impression KUB X-Ray 12/16/24 10:00 IMPRESSION: Nonobstructive bowel gas pattern. Reading Location: [facility] Physical Exam Cardio Cardio Narrative: Cardiac rhythm is A-fib with RVR Cardiac exam S1-S2 is irregular Chest exam is clear to auscultation bilateral Abdomen distended. Examination lower extremity no lower extremity edema. Assessment & Plan Assessment/Plan (1) Diverticulitis: (2) Left bundle branch block (LBBB): (3) Atrial fibrillation with RVR: PLAN: Cardiac care plan recommendations 69-year-old patient with colonic diverticular abscess Underwent, exploratory laparoscopic drainage of abscess and washout. 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 as per surgical team From cardiac standpoint we will continue the Cardizem, beta-kleber and added digoxin as IV. I reviewed the record from the EP/at [facility] Which showed EF in the range of 35%. Patient currently on heparin Will continue to monitor and follow-up clinically. 12/16/24 9777 <Electronically signed by Jaziel Lundberg MD> Cosigner Signature (if applicable): CC: ~ Signed [facility] Work Phone: [phone] Progress note Author Eric Gutierrez [facility] Note Date/Time December 16, 2024 12:14 pm [facility] Medical Records Department [address] [place] [address] Progress Note - Hospitalist 12/16/24 1035 MR#: [id number] Acct: [id number] Name: CONRAD OCONNELL Rep #:[id number] : 1955 69 From: Eric spencer DO PCP: Dr. Zechariah Siddiqui MD Status:ADM IN Location: ICU ICU03-1 Reason for Visit Reason for Visit: Diagnoses Essential (primary) hypertension (12/13/24) Paroxysmal atrial fibrillation (12/13/24) Unspecified atrial fibrillation (12/13/24) Diverticulitis of large intestine with perforation and abscess without bleeding (12/13/24) Diverticulitis of intestine, part unspecified, without perforation or abscess without bleeding (12/13/24) Unspecified abdominal pain (12/13/24) Abnormal electrocardiogram [ECG] [EKG] (12/13/24) Subjective Subjective Saw patient at bedside this morning. Dr. Ramírez also at bedside. Patient was sitting back comfortably in bed, conversing normally in no acute distress. Did report some abdominal distention but only mild abdominal pain currently. Denied any nausea. Heart rate continues to be in the 130s to 140s but he denies any palpitations. No other acute concerns at this time. Objective Data Objective Data Vital Signs: Vital Signs Temp Pulse Resp BP Pulse Ox O2 Del Method O2 Flow Rate 97.7 F L 142 H 23 H 103/70 98 Nasal Cannula 2 12/16/24 03:22 12/16/24 09:59 12/16/24 09:59 12/16/24 09:59 12/16/24 09:59 12/16/24 09:59 12/16/24 09:59 FiO2 98 12/15/24 12:25 Oxygen Flow Rate (L/min) 2 Oxygen Delivery Method Nasal Cannula Weight: 104.281 kg Body Mass Index (BMI) 33.0 Intake & Output: Intake and Output for Last 24 Hours 12/14/24 12/15/24 12/16/24 23:59 23:59 23:59 Intake Total 2125.83 / 2125.83 1631.77 / 1631.77 1059.5 / 1059.5 Output Total 1175 / 1575 1740 / 2190 790 / 790 Balance 950.83 / 550.83 -108.23 / -558.23 269.5 / 269.5 Lab / Micro Data 12/16/24 03:40 12/16/24 03:40 Labs: Laboratory Results - last 24 hr 12/15/24 21:30: APTT 28.9 12/16/24 03:40: WBC 14.8 H, RBC 4.75, Hgb 11.8 L, Hct 39.7 L, MCV 83.6, MCH 24.8 L, MCHC 29.7 L, RDW Std Deviation 63.8 H, RDW Coeff of Sea 21.3 H, Plt Count 311, MPV 10.3, APTT 98.3 H*, Sodium 146 H, Potassium 4.2, Chloride 111 H, Carbon Dioxide 23.1, Anion Gap 12, BUN 24 H, Creatinine 1.19, Estim Creat Clear Calc 68.70, Est GFR (MDRD) Non-Af 65, BUN/Creatinine Ratio 20.5 H, Glucose 152 H, Calcium 8.8, Magnesium 2.1 Radiography Diagnostic Testing: Radiology Impression KUB X-Ray 12/16/24 10:00 IMPRESSION: Nonobstructive bowel gas pattern. Reading Location: [facility] Physical Exam Const alert, oriented x3 and no apparent distress Constitutional Narrative: Pleasant elderly male, class I obesity, mildly fatigued appearing but otherwise sitting back comfortably in bed, conversing normally, in no acute distress. Stable. General Appearance: cooperative and comfortable HEENT normocephalic, head/scalp atraumatic, hearing grossly normal bilaterally, nasal mucous membranes and turbinates normal and moist oral mucous membranes Eyes PERRL, EOMs intact bilaterally and conjunctivae normal Neck full ROM Chest inspection of chest normal Resp normal respiratory effort and no use of accessory muscles Resp Narrative: Breathing comfortably on 2 L nasal cannula at rest. Mildly decreased breath sounds at bilateral lung bases, otherwise good air movement throughout with no wheezing or crackles noted. Cardio no murmurs and peripheral pulses 2+ throughout Cardio Narrative: A-fib with RVR. GI GI Narrative: Drain in place with serosanguineous fluid noted. Moderate abdominal distention but abdomen otherwise soft and only mildly tender to palpation. Back/Spine normal ROM Extremity normal to inspection, full ROM and no pedal edema Skin no rashes or lesions noted Psych mental status grossly normal Assessment & Plan Assessment/Plan (1) Diverticulitis: (2) Colonic diverticular abscess: (3) Atrial fibrillation with RVR: PLAN: Plan Patient is a 69-year-old male who presented to [facility] ED on 12/13/2024 with worsening abdominal pain. 1. Sigmoid diverticulitis with abscess ? General Surgery following. CT abdomen pelvis on admit showed acute sigmoid diverticulitis with an adjacent 4 cm abscess formation. S/p exploratory laparoscopy with drainage of abscess, washout and drain placement with surgery on 12/15. Patient tolerated procedure well. Per surgery, will remain n.p.o. for now and noted that patient will have poor bowel absorption at this point so will hold p.o. medications for now as well. Continue IV Zosyn. Continue symptom control with IV pain and nausea medications as needed. 2. Paroxysmal A-fib with RVR ? Cardiology following. Follows with cardiology EP in [place]; completed Tikosyn loading followed by cardioversion there last week. Unfortunately was only in sinus rhythm for 2 days before going back into A-fib. Was in A-fib with RVR on arrival here. Placed on Cardizem drip and converted back to normal sinus rhythm by morning of 12/14. Echo 12/14 showed moderately dilated LV, EF 35 to 40%, no other abnormalities and stable from previous. Unfortunately went back into A-fib with RVR on morning of 12/15. Per cardiology, given amiodarone bolus and started on amiodarone drip. Tikosyn, Cardizem and metoprolol discontinued. Patient unfortunately has remained in A- fib with RVR despite the amiodarone, so we will discontinue amiodarone today and restart Cardizem drip with Cardizem bolus. Continue heparin drip for anticoagulation. Continue cardiac monitoring. 3. History of HFrEF, hypertension ? Follows with cardiology in [place]. Last echo in 2022 showed EF 40%. Repeat echo on 12/14 as noted above with no change from previous. Treating with cardizem drip as above. Holding home Entresto and spironolactone. 4. Mild acute hypoxia in setting of COPD ? Manager Occupational following. Not on home oxygen, requiring up to 3 L nasal cannula to maintain appropriate oxygen saturations here. Breathing comfortably and lung sounds clear. Suspect primarily secondary to poor respiratory excursion in setting of abdominal pain from abscess as above. Continue incentive spirometry. Continue home inhalers. Wean supplemental oxygen as able. 5. Class I obesity with KIM ? BMI 33 on admit. Encouraged weight loss. Continue CPAP at night and with naps. DVT prophylaxis: Not indicated, on heparin drip CODE STATUS: Full code, verified Expected disposition: Home, TBD Total clinical time spent by myself addressing the patient's medical issues, reviewing all the data, and collaborating with patient's care team: 35 minutes. Charges/Coding Visit Charges Inpatient E&M: 72554 Subs Hosp L2 12/16/24 1214 <Electronically signed by Eric Gutierrez DO> Cosigner Signature (if applicable): CC: ~ Signed [facility] Work Phone: [phone]) 680-437905-29-2025 Progress note Author Basil Ramírez [facility] Note Date/Time December 16, 2024 11:19 am [facility] Medical Records Department [address] [place] [address] Progress Note - Surgery 12/16/24 1114 MR#: [id number] Acct: [id number] Name: CONRAD OCONNELL Rep #:[id number] : 1955 69 From: Basil Montejo PCP: Dr. Zechariah Siddiqui MD Status:ADM IN Location: ICU ICU03-1 Subjective Subjective Patient seen and evaluated during AM rounds. He is found resting in bed. A CPAP is initially in place but patient is able to remove his mask and his sats maintain in the mid 90s while conversing. Nursing reported increased abdominal distention which patient seems to agree with, however, he also remarks that his pain is much better today. He denies an appetite. Objective Data Objective Data Vital Signs: Vital Signs Temp Pulse Resp BP Pulse Ox O2 Del Method O2 Flow Rate 97.7 F L 142 H 23 H 103/70 98 Nasal Cannula 2 12/16/24 03:22 12/16/24 09:59 12/16/24 09:59 12/16/24 09:59 12/16/24 09:59 12/16/24 09:59 12/16/24 09:59 FiO2 98 12/15/24 12:25 Oxygen Flow Rate (L/min) 2 Oxygen Delivery Method Nasal Cannula Weight: 229 lb 14.4 oz Body Mass Index (BMI) 33.0 Intake & Output: Intake and Output for Last 24 Hours 12/14/24 12/15/24 12/16/24 23:59 23:59 23:59 Intake Total 2125.83 / 2125.83 1631.77 / 1631.77 2162.5 / 2162.5 Output Total 1175 / 1575 1740 / 2190 790 / 790 Balance 950.83 / 550.83 -108.23 / -558.23 1372.5 / 1372.5 Lab / Micro Data 12/16/24 03:40 12/16/24 03:40 Labs: Laboratory Results - last 24 hr 12/15/24 21:30: APTT 28.9 12/16/24 03:40: WBC 14.8 H, RBC 4.75, Hgb 11.8 L, Hct 39.7 L, MCV 83.6, MCH 24.8L, MCHC 29.7 L, RDW Std Deviation 63.8 H, RDW Coeff of Sea 21.3 H, Plt Count 311, MPV 10.3, APTT 98.3 H*, Sodium 146 H, Potassium 4.2, Chloride 111 H, CarbonDioxide 23.1, Anion Gap 12, BUN 24 H, Creatinine 1.19, Estim Creat Clear Calc 68.70, Est GFR (MDRD) Non-Af 65, BUN/Creatinine Ratio 20.5 H, Glucose 152 H, Calcium 8.8, Magnesium 2.1 Radiography Diagnostic Testing: Radiology Impression KUB X-Ray 12/16/24 10:00 IMPRESSION: Nonobstructive bowel gas pattern. Reading Location: [facility] Physical Exam Const oriented x3 Constitutional Narrative: Mild distress from abdominal distention Resp Resp Narrative: Mildly tachypneic Cardio Cardio Narrative: A-fib with RVR noted on telemetry GI GI Narrative: At least moderate abdominal distention with tympany on percussion of the epigastrium. Patient confirms mild tenderness about his port site incisions which remain covered with operative dressings. Nursing reports approximately 50mL of seropurulent drainage from right lower quadrant abdominal drain. Assessment & Plan Assessment/Plan (1) Colonic diverticular abscess: PLAN: Patient is postoperative day 1 from diagnostic laparoscopy with peritonealdrainage secondary to not being amenable to percutaneous drainage by IR. Reportedly reverted to normal sinus rhythm during the case but once again this A-fib with RVR this morning. Actively receiving amiodarone bolus to try to cardiovert. From an abdominal standpoint patient appears to be manifesting a postoperative ileus which is unsurprising given both his intraoperative findingsreported by Dr. Harris as well as the peritoneal contamination. Abdominal distention and tympany characterize patient's abdominal exam and while KUB was read as nonobstructive bowel gas pattern there is a significant gastric bubble shown on the plain film. Therefore I have asked for institution of aspiration precautions and will have a low threshold to place nasogastric tube if patient expresses severe nausea or vomiting. Also recommending transition/holding of any oral medications as enteral absorption will be variable if not questionable. Continue n.p.o. status, IV antibiotics, and mobilize as allowed by cardiopulmonary status. Basil Ramírez MD General Surgery Endocrine Surgery Pager: [facility] [address] [place] [address], [facility], [address] [place] [address] Office: [phone] Charges/Coding Visit Charges Inpatient E&M: 66061 Subs Hosp L2 12/16/24 1119 <Electronically signed by Basil Ramírez MD> Cosigner Signature (if applicable): CC: ~ Signed [facility] Work Phone: [phone]) [phone] Progress note Author Montana Leone [facility] Note Date/Time December 16, 2024 10:00 am [facility] Medical Records Department [address] [place] [address] Progress Note - Manager Occupational 12/16/24 0656 MR#: [id number] Acct: [id number] Name: ANISHCONRAD Rep #:[id number] : 1955 69 From: Montana Leone DO PCP: Dr. Zechariah Siddiqui MD Status:ADM IN Location: ICU ICU03-1 Assessment & Plan Assessment/Plan (1) Atrial fibrillation with RVR: (2) Colonic diverticular abscess: PLAN: Plan RECOMMENDATIONS: 1. Continue antimicrobial therapy as ordered. 2. Continue routine postoperative care per general surgery recommendations. 3. Rate/rhythm control strategy per cardiology recommendations. 4. Supplemental oxygen, if needed, to maintain saturations at or above 90%. 5. Continue PAP therapy with naps and nightly. 6. We will follow peripherally and be available if any issues arise. IMPRESSIONS: 1. Abdominal pain in the setting of diverticular abscess The patient is postoperative day #1 following exploratory laparoscopy with drainage of abscess. The patient did well postoperatively and was able to be extubated. He is doing remarkably well from a respiratory perspective. Continue supplemental oxygen, if needed, along with PAP therapy with sleep, due to his history of sleep apnea. 2. Paroxysmal atrial fibrillation with RVR Continue rate/rhythm control strategy per cardiology recommendations. 3. History of COPD/obstructive sleep apnea Continue supplemental oxygen, if needed, to maintain saturations at or above 90%. Recommend continuing PAP therapy with naps and nightly. 4. History of heart failure with reduced ejection fraction/obesity/hypertension Complicates care, management, recovery and prognosis. Continue to hold home antihypertensives. This note was generated with [employer] software. It may contain incorrectwords, spelling, and punctuation that were not noted in checking the note beforesigning. Subjective Subjective The patient was seen and examined at the bedside this morning. Events from the last 24 hours have been reviewed. The patient is currently afebrile, hemodynamically stable and maintaining appropriate oxygen saturations on 2 L/minvia nasal cannula. The patient was tolerant of his home PAP therapy overnight. He did quite well yesterday with surgery and was able to be extubated postprocedure. No overnight events were noted. The patient's, however, he is again in atrial fibrillation with RVR. White blood cell count is elevated at 15,000. Hemoglobin and platelet count are stable. Creatinine is within normal limits. Potassium is within normal limits at 4.2. Objective Data Objective Data The patient's most recent lab work, culture data and imaging studies have all been personally reviewed. Surface echocardiogram demonstrated a moderately dilated LV with an ejection fraction of 35 to 40%. Vital Signs: Vital Signs Temp Pulse Resp BP Pulse Ox O2 Del Method O2 Flow Rate 97.7 F L 124 H 16 104/66 94 CPAP 2 12/16/24 03:22 12/16/24 06:08 12/16/24 03:22 12/16/24 06:08 12/16/24 06:50 12/16/24 06:50 12/16/24 06:50 FiO2 98 12/15/24 12:25 Oxygen Flow Rate (L/min) 2 Oxygen Delivery Method CPAP Weight: 229 lb 14.4 oz Body Mass Index (BMI) 33.0 Intake & Output: Intake and Output for Last 24 Hours 12/14/24 12/15/24 12/16/24 23:59 23:59 23:59 Intake Total 2125.83 / 2125.83 1631.77 / 1631.77 1009.5 / 1009.5 Output Total 1175 / 1575 1740 / 2190 790 / 790 Balance 950.83 / 550.83 -108.23 / -558.23 219.5 / 219.5 Lab / Micro Data Attestation: I reviewed the patient's lab results. 12/16/24 03:40 12/16/24 03:40 Labs: Laboratory Results - last 24 hr 12/15/24 21:30: APTT 28.9 12/16/24 03:40: WBC 14.8 H, RBC 4.75, Hgb 11.8 L, Hct 39.7 L, MCV 83.6, MCH 24.8L, MCHC 29.7 L, RDW Std Deviation 63.8 H, RDW Coeff of Sea 21.3 H, Plt Count 311, MPV 10.3, APTT 98.3 H*, Sodium 146 H, Potassium 4.2, Chloride 111 H, CarbonDioxide 23.1, Anion Gap 12, BUN 24 H, Creatinine 1.19, Estim Creat Clear Calc 68.70, Est GFR (MDRD) Non-Af 65, BUN/Creatinine Ratio 20.5 H, Glucose 152 H, Calcium 8.8 Physical Exam Const alert, oriented x3 and no apparent distress General Appearance: cooperative HEENT normocephalic, head/scalp atraumatic and moist oral mucous membranes Eyes PERRL, EOMs intact bilaterally and conjunctivae normal Neck supple General: trachea midline Chest inspection of chest normal Resp normal respiratory effort Auscultation: Negative for rales, rhonchi or wheezes Cardio S1 normal heart sound and S2 normal heart sound Rate: tachycardic Rhythm: abnormal rhythm GI soft to palpation and non-tender Extremity no clubbing, cyanosis or edema Skin no rashes or lesions noted Neuro CN's II-XII intact bilaterally, moves all extremities and no focal motor deficits Psych cooperative and affect normal Charges/Coding Visit Charges Inpatient E&M: 60753 Subs Hosp L2 12/16/24 1000 <Electronically signed by Montana Leone DO> Cosigner Signature (if applicable): CC: ~ Signed [facility] Work Phone: [phone] Radiology Diagnostic study [facility]05-28-2025 Progress note Author Jaziel Lundberg [facility] Note Date/Time December 15, 2024 5:27p m [facility] Medical Records Department [address] [place] [address] Progress Note - Cardiology 12/15/24 1718 MR#: [id number] Acct: [id number] Name: CONRAD OCONNELL Rep #:[id number] : 1955 69 From: Jaziel Lundberg MD PCP: Dr. Zechariah Siddiqui MD Status:ADM IN Location: ICU ICU03-1 Subjective Subjective Cardiac care plan recommendations; patient with diverticular abscess Status post exploratory laparoscopy with drainage of abscess and washout Cardiac follow-up patient has atrial fibrillation with RVR Converted to normal sinus rhythm He has known history of paroxysmal A-fib and has been seen and followed by canary breeder at [facility] Where patient was on treatment with Decasone. I discussed in detail with the patient and family the finding of echocardiogram With EF in the range of 35-40% moderate left ventricular systolic dysfunction Patient has paradoxical septal motion secondary to chronic left bundle branch block As well I stopped the Tikosyn and will continue on anticoagulation with heparin as well surgical recommendation to start at night 8 hours post laparoscopy to minimize risk of bleeding. From cardiac standpoint we will review the records from [facility] Will review all his medication we will continue on amiodarone as well as Eliquisonce he is stable and cleared by the vascular surgeon to resume the anticoagulation Also will set up to follow-up with EP for further plan of management of the A- fib. Objective Data Vital Signs: Vital Signs Temp Pulse Resp BP Pulse Ox O2 Del Method O2 Flow Rate 96.6 F L 79 18 119/65 98 Nasal Cannula 3 12/15/24 14:27 12/15/24 14:12/15/24 14:12/15/24 14:12/15/24 14:12/15/24 14:12/15/24 14:27 FiO2 98 12/15/24 12:25 Oxygen Flow Rate (L/min) 3 Oxygen Delivery Method Nasal Cannula Weight: 228 lb 12.8 oz Body Mass Index (BMI) 32.8 Intake & Output: Intake and Output for Last 24 Hours 12/13/24 12/14/24 12/15/24 23:59 23:59 23:59 Intake Total 811.25 / 826.25 2125.83 / 2125.83 1581.77 / 1581.77 Output Total 1175 / 1575 780 / 780 Balance 811.25 / 826.25 950.83 / 550.83 801.77 / 801.77 Lab / Micro Data 12/15/24 02:30 12/15/24 02:30 Labs: Laboratory Results - last 24 hr 12/15/24 02:30: WBC 19.4 H, RBC 5.25, Hgb 13.1, Hct 43.6, MCV 83.0, MCH 25.0 L, MCHC 30.0 L, RDW Std Deviation 63.8 H, RDW Coeff of Sea 21.6 H, Plt Count 350, MPV 10.2, APTT 113.6 H*, Sodium 142, Potassium 5.1, Chloride 105, Carbon [id number], Anion Gap 10, BUN 27 H, Creatinine 1.27 H, Estim Creat Clear Calc 64.50, Est GFR (MDRD) Non-Af 60, BUN/Creatinine Ratio 21.1 H, Glucose 158 H, Calcium 9.3 Cardiology Labs/Tests 12/15/24 02:30: WBC 19.4 H, RBC 5.25, Hgb 13.1, Hct 43.6, MCV 83.0, MCH 25.0 L, MCHC 30.0 L, Plt Count 350, MPV 10.2, APTT 113.6 H*, Sodium 142, Potassium 5.1, Chloride 105, Carbon Dioxide 26.4, Anion Gap 10, BUN 27 H, Creatinine 1.27 H, Est GFR (MDRD) Non-Af 60, BUN/Creatinine Ratio 21.1 H, Glucose 158 H, Calcium 9.3 Rhythm: EKG: ECHO: Stress Test: Cardiac Cath: PCI: CT Surgery: Holter monitor: EPS: PPM: CXR: Chest CT Scan: Radiography Diagnostic Testing: Radiology Impression Echocardiogram 12/14/24 07:22 Interpretation Summary The estimated ejection fraction is 35-40 %. Moderate LV systolic dysfunction Paradoxical septal motion/secondary to left bundle branch block Limited study No significant valvular abnormality Overall similar EF in comparison to previous echocardiogram Definity used/contrast echo Ordering Physician: Jaziel Lundberg Performed By: Michael Wagner, [facility] Physical Exam Cardio Cardio Narrative: Seen and evaluated at bedside along with the nursing staff Family were at bedside He had the drainage from the exploratory laparoscopic, drainage of the diverticular abscess Reviewed the opera singer, current lab result Cardiac exam S1-S2 is regular Chest exam is clear to auscultation bilaterally Abdomen mildly distended with diffuse tenderness Examination lower extremity no lower extremity edema. Assessment & Plan Assessment/Plan (1) Atrial fibrillation with RVR: (2) Abdominal pain: (3) Diverticulitis: (4) PAF (paroxysmal atrial fibrillation): (5) Essential (primary) hypertension: (6) Abnormal electrocardiogram: PLAN: Cardiac care plan and recommendations; 69-year-old patient with history of atrial fibrillation and RVR. Patient has diverticular abscess/colonic Underwent exploratory laparoscopic drainage of the diverticular abscess by the surgical team. Has atrial fibrillation, patient is on antibiotic with piperacillin He was on treatment with Tikosyn/dofetilide which he discontinued As his echocardiogram is abnormal with ejection fraction in the range of 35-40%. Would recommend sotalol for the paroxysmal A-fib In addition would recommend follow-up with EP to discuss further plan In regard to his anticoagulation long-term once he is stable and cleared by the surgical team to resume Eliquis 5 mg twice daily. Patient to follow-up with the cardiac team as an outpatient Also I requested the records from [facility] also requested the records from [facility] regarding the EP plan and follow-up. Jaziel Lundberg MD,[facility] 12/15/24 7955 <Electronically signed by Jaziel Lundberg MD> Cosigner Signature (if applicable): CC: ~ Signed [facility] Work Phone: 1(641) 658-400005-28-2025 Consult note Author Delfina Weber [facility] Note Date/Time December 15, 2024 2:26p m [facility] Medical Records Department [address] [place] [address] Anesthesia Postop Eval I 12/15/241425 MR#: [id number] Acct: [id number] Name: CONRAD OCONNELL Rep #:[id number] : 1955 69 From: Delfina Weber PCP: Dr. Zechariah Siddiqui MD Status:ADM IN Y Race: C Location: ICU ICU03 -1 Anesthesia: Postop Eval I Current Vital Signs Temperature: 36.7 F Pulse Rate: 82 Blood Pressure: 114/74 Respiratory Rate: 18 Pulse Ox: 100 Oxygen Delivery Method: Nasal Cannula Oxygen Flow Rate (L/min): 2 Assessment Airway patent: Yes Spontaneous unlabored respirations: Yes Mental status: Awake and Calm nausea: No Vomiting: No Anesthesia Complication: No Fluid Hydration Crystalloid volume administer (ml): 800 Total IV fluid infused: 800 Progress Note Anesthesia document: Postop Eval 1 completed: Yes 12/15/241425 <Electronically signed by Delfina Weber > Date _ Delfina Melgar Signature: Date CC: ~ Signed [facility] Work Phone: 1(625) 986-238105-28-2025 Progress note Author Eric Gutierrez [facility] Note Date/Time December 15, 2024 12:39 pm [facility] Medical Records Department [address] [place] [address] Progress Note - Hospitalist 12/15/245 MR#: [id number] Acct: [id number] Name: CONRAD OCONNELL Rep #:[id number] : 1955 69 From: Eric spencer DO PCP: Dr. Zechariah Siddiqui MD Status:ADM IN Location: ICU ICU03-1 Reason for Visit Reason for Visit: Diagnoses Essential (primary) hypertension (12/13/24) Unspecified atrial fibrillation (12/13/24) Diverticulitis of large intestine with perforation and abscess without bleeding (12/13/24) Diverticulitis of intestine, part unspecified, without perforation or abscess without bleeding (12/13/24) Unspecified abdominal pain (12/13/24) Subjective Subjective Saw patient at bedside this morning, present. Patient was sitting back comfortably in bed, conversing normally and in no acute distress. He had some minimal lower abdominal pain this morning. Stated his belching and nausea were improved today from yesterday. However, he had gone back into A-fib with RVR and his heart rate was in the 130s to 140s when I saw him. He denied any palpitations or lightheadedness/dizziness. No other acute concerns at this time. Objective Data Objective Data Vital Signs: Vital Signs Temp Pulse Resp BP Pulse Ox O2 Del Method O2 Flow Rate 97 F L 148 H 20 H 86/73 L 96 CPAP 3 12/15/24 11:00 12/15/24 11:00 12/15/24 11:00 12/15/24 11:00 12/15/24 11:00 12/15/24 11:00 12/15/24 11:00 FiO2 3 12/15/24 01:48 Oxygen Flow Rate (L/min) 3 Oxygen Delivery Method CPAP Weight: 103.782 kg Body Mass Index (BMI) 32.8 Intake & Output: Intake and Output for Last 24 Hours 12/13/24 12/14/24 12/15/24 23:59 23:59 23:59 Intake Total 811.25 / 826.25 2125.83 / 2125.83 490.75 / 490.75 Output Total 1175 / 1575 600 / 600 Balance 811.25 / 826.25 950.83 / 550.83 -109.25 / -109.25 Lab / Micro Data 12/15/24 02:30 12/15/24 02:30 Labs: Laboratory Results - last 24 hr 12/15/24 02:30: WBC 19.4 H, RBC 5.25, Hgb 13.1, Hct 43.6, MCV 83.0, MCH 25.0 L, MCHC 30.0 L, RDW Std Deviation 63.8 H, RDW Coeff of Sea 21.6 H, Plt Count 350, MPV 10.2, APTT 113.6 H*, Sodium 142, Potassium 5.1, Chloride 105, Carbon Gyxlpyw65.4, Anion Gap 10, BUN 27 H, Creatinine 1.27 H, Estim Creat Clear Calc 64.50, Est GFR (MDRD) Non-Af 60, BUN/Creatinine Ratio 21.1 H, Glucose 158 H, Calcium 9.3 Radiography Diagnostic Testing: Radiology Impression Echocardiogram 12/14/24 07:22 Interpretation Summary The estimated ejection fraction is 35-40 %. Moderate LV systolic dysfunction Paradoxical septal motion/secondary to left bundle branch block Limited study No significant valvular abnormality Overall similar EF in comparison to previous echocardiogram Definity used/contrast echo Ordering Physician: Jaziel Lundberg Performed By: Michael Wagner [facility] Physical Exam Const alert, oriented x3 and no apparent distress Constitutional Narrative: Pleasant elderly male, class I obesity, mildly fatigued appearing but otherwise sitting back comfortably in bed, conversing normally, in no acute distress. General Appearance: cooperative and comfortable HEENT normocephalic, head/scalp atraumatic, hearing grossly normal bilaterally, nasal mucous membranes and turbinates normal and moist oral mucous membranes Eyes PERRL, EOMs intact bilaterally and conjunctivae normal Neck full ROM Chest inspection of chest normal Resp normal respiratory effort, normal air movement, no use of accessory muscles and clear to auscultation bilaterally Cardio no murmurs and peripheral pulses 2+ throughout Cardio Narrative: A-fib with RVR. GI GI Narrative: Mild LLQ tenderness to palpation. Abdomen otherwise soft and nondistended. No guarding or rebound tenderness. Back/Spine normal ROM Extremity normal to inspection, full ROM and no pedal edema Skin no rashes or lesions noted Psych mental status grossly normal Assessment & Plan Assessment/Plan (1) Diverticulitis: (2) Colonic diverticular abscess: (3) Atrial fibrillation with RVR: PLAN: Plan Patient is a 69-year-old male who presented to [facility] ED on 12/13/2024 with worsening abdominal pain. 1. Sigmoid diverticulitis with abscess ? General Surgery following. CT abdomen pelvis on admit showed acute sigmoid diverticulitis with an adjacent 4 cm abscess formation. Per surgery, planning for IR drain placement for the abscess this afternoon. Continue n.p.o. status and IV Zosyn for now. Continue symptom control with IV pain and nausea medications as needed. 2. Paroxysmal A-fib with RVR ? Cardiology following. Follows with cardiology EP in [place]; completed Tikosyn loading followed by cardioversion there last week. Unfortunately was only in sinus rhythm for 2 days before going back into A-fib. Was in A-fib withRVR on arrival here. Placed on Cardizem drip and converted back to normal sinusrhythm by morning of 12/14. Echo 12/14 showed moderately dilated LV, EF 35 to 40%, no other abnormalities and stable from previous. Unfortunately went back into A-fib with RVR on morning of 12/15. Per cardiology, given amiodarone bolus and started on amiodarone drip. Tikosyn, Cardizem and metoprolol discontinued. Continue heparin drip for anticoagulation. Continue cardiac monitoring. 3. History of HFrEF, hypertension ? Follows with cardiology in [place]. Last echo in 2022 showed EF 40%. Repeatecho on 12/14 as noted above with no change from previous. Treated with amiodarone drip as above. Holding home Entresto and spironolactone. 4. Mild acute hypoxia in setting of COPD ? Manager Occupational following. Not on home oxygen, requiring up to 3 L nasal cannula to maintain appropriate oxygen saturations here. Breathing comfortably and lungsounds clear. Suspect primarily secondary to poor respiratory excursion in setting of abdominal pain from abscess as above. Continue incentive spirometry. Continue home inhalers. Wean supplemental oxygen as able. 5. Class I obesity with KMI ? BMI 33 on admit. Encouraged weight loss. Continue CPAP at night and with naps. DVT prophylaxis: Not indicated, on heparin drip CODE STATUS: Full code, verified Expected disposition: Home, TBD Total clinical time spent by myself addressing the patient's medical issues, reviewing all the data, and collaborating with patient's care team: 35 minutes. Charges/Coding Visit Charges Inpatient E&M: 06170 Subs Hosp L2 12/15/24 1239 <Electronically signed by Eric Gutierrez DO> Cosigner Signature (if applicable): CC: ~ Signed [facility] Work Phone: 1([phone]) 141-441205-28-2025 Consult note Author Gianfranco Oropeza [facility] Note Date/Time December 15, 2024 12:37 pm [facility] Medical Records Department [address] [place] [id number] Pre-Anesthesia Evaluation 12/15/24 1222 MR#: [id number] Acct: [id number] Name: CONRAD OCONNELL Rep #:[id number] : 1955 69 From: Gianfranco Oropeza MD PCP: Dr. Zechariah Siddiqui MD Status:ADM IN Y Race: C Location: ICU ICU03 -[address] Gianfranco Oropeza MD on 12/15/24 at 1237 Addendum Patient on amiodarone drip at 1 mg/min. Will most likely continue throughout disease surgery. 12/15/24 1237 <Electronically signed by Gianfranco marley MD> Date _ Gianfranco Oropeza MD cc: ~* Signed ASA Classification* ASA Classification ASA Classification: 4 Assessment & Plan Anesthesia* Anesthesia Assessment Anesthesia Assessment: Discussed sedation and/or anesthesia options, risks, benefits, and alternatives with patient/parents/legal guardian/POA. Questions invited. The patient/parents/legal guardian/POA seems to understand and agrees to proceedwith anesthesia plan. Reviewed the physical assessment, medical history, allergy history and patient home medications list prior to surgery/procedure/anesthetic and documented any changes. Performed airway and anesthesia risk assessments. Anesthesia Type Anesthesia Type: General History Source History Obtained from:: Patient and Chart Anesthesia Focused Assessment* Temperature: 98.0 F Pulse Rate: 135 Blood Pressure: 107/79 Respiratory Rate: 20 Pulse Ox: 99 Oxygen Flow Rate (L/min): 3 Fraction of Inspired Oxygen (FIO2): 98 Airway Assessment Mouth opens: >3 cm Mallampati Score: IV Teeth Condition: Partial (Upper partials out.) Neck Range of motion (ROM): Limited ROM (Slight decrease in extension) Focused Labs Anesthesia Preop lab: CBC WBC 19.4 K/mm3 (4.4-11.0) H 12/15/24 02: 5 RBC 5.25 M/mm3 (4.6-6.2) 12/15/24 02:30 12/15/24 Hgb 13.1 g/dL (13.0-16.5) 12/15/24 02:30 12/15/24 Hct 43.6 % (40-54) 12/15/24 02:30 12/15/24 Plt Count 350 K/mm3 (150-450) 12/15/24 02:30 12/15/24 CHEMISTRY Potassium 5.1 mmol/L (3.3-5.1) 12/15/24 02:30 12/15/24 Sodium 142 mmol/L (133-145) 12/15/24 02:30 12/15/24 Magnesium 1.7 mg/dL (1.5-2.2) 11/30/24 13:42 11/30/24 BUN 27 mg/dL (4-19) H 12/15/24 02:30 12/15/24 Creatinine 1.27 mg/dL (0.70-1.20) H 12/15/24 02:30 Glucose 158 mg/dL (70-99) H 12/15/24 02:30 12/15/24 TSH 1.110 uIU/mL (0.300-4.200) 11/30/24 13:42 11/18 10/12 COAG PT 15.8 SECONDS (11.7-14.9) H 12/14/24 03:24 11/19 02/11 Pre-Assessment Diagnosis/Proposed Procedure Planned Operative Procedure(s): Laparoscopic washout of diverticular abscess. Possible bowel resection. Possible colostomy. Anesthesia History Anesthesia History - manager portable: Anesthesia History - manager portable Hx Hospitalization No 11/06/20 13:59 Any Problems With Anesthesia No 11/06/20 13:59 Cholinesterase deficiency No 11/06/20 13:59 You/Your Family Experience No 11/06/20 13:59 fever (hyperthermia) with Relationship Recent Exposure to Contagious No 11/10/20 09:26 Disease Does patient have nerve No 11/06/20 13:59 stimulator Patient instructed to have device shut off --Does patient have Pacemaker or ICD? When Was Last Pacemaker Check QUESTION #4 FULL TEXT: You/Your Family Experience fever (hyperthermia) with Anesthesia Last Oral Intake Last Oral intake: Last Oral Intake NPO since Meds taken in AM with sips of water? Meds patient instructed to take am of surgery Any additional information?: Yes NPO since: 00:00 Meds taken in AM with sips of water?: Yes PONV PONV - manager portable: PONV - manager portable Female HX of Motion Sickness HX of N/V After Surgery Non-Smoker Duration of Surgery greater than 60 minutes Number of Risk Factors PONV Score Height & Weight Height & Weight: Anesthesia: Height & Weight Height 5 ft 10 in 12/14/24 09:40 Weight: 103.782 kg 12/15/24 05:00 Body Mass Index (BMI) 32.8 12/15/24 05:00 Respiratory Assessment Respiratory Assessment - manager portable: Respiratory Tract Infection Hx - manager portable Hx Respiratory Tract Infection No 11/06/20 13:59 STOP Sleep Apnea STOP Sleep Apnea - manager portable: STOP Sleep Apnea - manager portable Hx Hypertension Yes 12/13/24 21:07 Hx Sleep Apnea Yes 12/13/24 21:07 CPAP Yes 12/13/24 21:07 BIPAP No 12/13/24 21:07 Do you snore loudly (louder than talking or can be heard Do you often feel tired/ fatigued/ sleepy during daytime? Has anyone observed you stop breathing during sleep? STOP Results Positive 12/13/24 21:07 QUESTION #5 FULL TEXT : Do you snore loudly (louder than talking or can be heard through closed doors)? 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 Specify any problems Hx of Preganancy in last 3 N/A 12/13/24 21:07 Months Nurse Filling Out Transfusion [email or web address] 12/13/24 21:07 & Questions: Date: 12/13/24 12/13/24 21:07 Time: 21:12 12/13/24 21:07 Patient unable to answer at this time (ie. confused, unrespo /Reproduction History /Reproductive History - manager portable: /Reproductive Hx- manager portable Hx Now Gestational Age (in weeks): EDC: Hx Hx Para Hx Section SAB Active Medications Active Medications: Current Medications Generic Name Dose Route Start Last Admin Trade Name Freq PRN Reason Stop Dose Admin Albuterol/Ipratropium 3 ml 12/14/24 09:56 Ipratropium/Albuterol Sulfate 3 Ml Ampul.Neb INHALATION Q6H.RT PRN sob Budesonide 0.5 mg 12/14/24 06:00 12/14/24 06:53 Budesonide Respules 0.5 Mg/2 Ml Ampul.Neb. INHALATION 0.5 mg Q12H.RT ALDO Administration Gabapentin 600 mg 12/14/24 08:00 12/15/24 08:55 Gabapentin 600 Mg Tablet PO 600 mg BIDCM ALDO Administration Heparin Sodium (Porcine) 0 unit 12/13/24 21:20 Heparin Injection (Vial) 5,000 Unit/Ml Vial IV UD PRN dose adjustment Protocol Hydrochlorothiazide 25 mg 12/14/24 10:00 12/15/24 09:01 Hydrochlorothiazide 25 Mg Tablet PO 25 mg DAILY ALDO Administration Protocol Hydromorphone HCl 0.5 mg 12/14/24 07:47 12/15/24 09:41 Hydromorphone 1 Mg/Ml Syringe IV 0.5 mg Q3H PRN PRN Administration Pain Score 6-10 Heparin Sodium/Dextrose 25,000 units in 250 mls @ 15 mls/hr 12/13/24 19:50 12/15/24 05:53 CONT INF Not Given .[id number] ALDO Protocol As Directed Piperacillin Sod/Tazobactam 50 mls @ 12.5 mls/hr 12/14/24 06:00 12/15/24 09:52 Sod 3.375 gm/ Sodium Chloride IV Infused Q8 ALDO Infusion Sodium Chloride 250 mls @ 15 mls/hr 12/13/24 21:08 IV .[id number] PRN Saline Flush Sodium Chloride 250 mls @ 15 mls/hr 12/13/24 21:08 IV .[id number] PRN Additional IVPB Infusion Pantoprazole Sodium 40 mg/ 100 mls @ 330 mls/hr 12/14/24 10:00 12/15/24 09:20 Sodium Chloride IV Infused Q24 ALDO Infusion Amiodarone HCl 360 mg/ 200 mls @ 33.333 mls/hr 12/15/24 09:30 12/15/24 10:21 Dextrose CONT INF 12/15/24 15:29 1 mg/min .Q6H ALDO 33.3 mls/hr Administration 1 MG/MIN Amiodarone HCl 360 mg/ 200 mls @ 16.667 mls/hr 12/15/24 15:30 Dextrose CONT INF 12/16/24 09:29 .Q12H ALDO 0.5 MG/MIN Lactated Ringer's 1,000 mls @ 500 mls/hr 12/15/24 10:45 12/15/24 10:43 IV 12/15/24 12:44 500 mls/hr .Q2H ALDO Administration Metoprolol Tartrate 50 mg 12/13/24 22:00 12/15/24 09:01 Metoprolol Tartrate 50 Mg Tablet PO 50 mg BID ALDO Administration Protocol Metoprolol Tartrate 5 mg 12/14/24 09:55 12/15/24 09:13 Metoprolol Tartrate 5 Mg/5 Ml Vial IV 5 mg Q6H PRN Administration tachycardia Protocol Ondansetron HCl 4 mg 12/14/24 09:57 Ondansetron 4 Mg/2 Ml Vial IV Q6H PRN PRN NAUSEA/VOMITING Potassium Chloride 40 meq 12/14/24 08:00 12/15/24 08:52 Potassium Chloride Oral Tablet 20 Meq PO 40 meq DAILYCM ALDO Administration Prochlorperazine Edisylate 5 mg 12/14/24 09:56 12/14/24 11:00 Prochlorperazine 10 Mg/2 Ml Vial IV 5 mg Q6H PRN PRN Administration BREAKTHROUGH NAUSEA Sodium Chloride 10 - 40 ml 12/13/24 21:08 12/15/24 09:45 0.9% Saline Lock 10 Ml Syringe IV 20 ml UD PRN Administration SALINE FLUSH Spironolactone 25 mg 12/14/24 10:00 12/15/24 09:00 Spironolactone 25 Mg Tablet PO 25 mg DAILY ALDO Administration Protocol [facility] Medical History PAF (paroxysmal atrial fibrillation) Emphysema/COPD Obstructive sleep apnea Depression Essential (primary) hypertension Obesity Benign neoplasm of maxillary sinus Left bundle branch block (LBBB) Home Medications ?Medication ?Instructions ?Recorded ?Last Taken ?Type ascorbic acid (vitamin C) 500 mg 2 gm PO DAILY general health 05/05/15 05/04/15 08:00 History tablet fluticasone fur. 100 mcg-umeclid 1 ea inhalation DAILY breathing 09/27/20 Unknown History 62.5 mcg-vilant 25 mcg inhalat.powder apixaban 5 mg tablet (Eliquis) 5 mg PO BID blood thinn er 03/20/23 Unknown History albuterol sulfate 2.5 mg/3 mL 2.5 mg inhalation TID [place] N PRN 12/13/24 Unknown History (0.083 %) solution for nebulization bronchospasm balsalazide 750 mg capsule 2,250 mg PO TID ULCERATIVE COLITIS 12/13/24 Unknown History dofetilide 250 mcg capsule 250 mcg PO Q12H heart 12/1312/13/24 09:00 History ipratropium bromide 21 mcg (0.03 1 - 2 spray intranasa l Q6H PRN PRN 12/13/24 Unknown History %) nasal spray allergy symptoms metoprolol succinate 50 mg 50 mg PO Q12H blood pressur e 12/13/24 Unknown History tablet,extended release 24 hr potassium chloride 20 mEq 40 meq PO DAILY potassium Unknown History tablet,extended release(part/cryst) (Klor-Con M) sacubitril 24 mg-valsartan 26 mg 1 tab PO Q12.TCU hear t 12/13/24 Unknown History tablet (Entresto) spironolactone 25 mg tablet 25 mg PO DAILY diuretic Unknown History Allergy/AdvReac Type Severity Reaction Status Date / Time shellfish derived Allergy Nausea/Vom/ Verified 12/13/24 17:40 Diarrhea Family History Father Hypertension Colon cancer Mother Breast cancer Surgical History (Updated 12/15/24 @ 12:[address] Gianfranco Oropeza MD) H/O sinus surgery Social History Smoking Status: Former smoker quit date: 07/21/06 pack-years: 30 alcohol intake: current alcohol intake frequency: holidays/special occasions only Review of Systems (Anesthesia) ROS Narrative System reviewed and no additional complaints, except as documented. 12/15/24 1234 <Electronically signed by Gianfranco marley MD> Date _ Gianfranco Oropeza MD Cosigner Signature: Date CC: ~ Signed [facility] Work Phone: 1([phone]) 560-368905-28-2025 Consult note Author Montana Leone [facility] Note Date/Time December 15, 2024 12:03 pm [facility] Medical Records Department [facility] [place] [address] Consultation - Manager Occupational 12/15/24 1154 MR#: [id number] Acct: [id number] Name: CONRAD OCONNELL Rep #:[id number] : 1955 69 From: Montana Leone DO PCP: Dr. Zechariah Siddiqui MD Status:ADM IN Location: ICU ICU03-1 Assessment & Plan Assessment/Plan (1) Atrial fibrillation with RVR: (2) Colonic diverticular abscess: PLAN: Plan RECOMMENDATIONS: 1. Continue antimicrobial therapy as ordered. 2. Tentative plans for surgical intervention at some point today. 3. Rate/rhythm control strategy per cardiology recommendations. 4. Supplemental oxygen, if needed, to maintain saturations at or above 90%. 5. Continue PAP therapy with naps and nightly. IMPRESSIONS: 1. Abdominal pain in the setting of diverticular abscess Tentative plans for surgical intervention. Maintain n.p.o. status for now. Continue empiric antibiotics. 2. Paroxysmal atrial fibrillation with RVR Continue rate/rhythm control strategy per cardiology recommendations. 3. History of COPD/obstructive sleep apnea Continue supplemental oxygen, if needed, to maintain saturations at or above 90%. Recommend continuing PAP therapy with naps and nightly. We will be available to assist with weaning from invasive mechanical ventilatory support, following surgery. 4. History of heart failure with reduced ejection fraction/obesity/hypertension Complicates care, management, recovery and prognosis. Continue to hold home antihypertensives. This note was generated with Zuki dictation software. It may contain incorrectwords, spelling, and punctuation that were not noted in checking the note beforesigning. HPI Consult Data Date of Consult: 12/15/24 HPI Narrative Reason for Consultation: Critical care management HPI Narrative: The patient is a 69-year-old male, with a history as outlined below, who presented to the emergency department on December 13 with progressive abdominal discomfort, primarily in the left upper lower quadrant. The patient has a knownhistory of COPD and obstructive sleep apnea, followed by Dr. Mahmood on an outpatient basis. The patient reported that he does not utilize supplemental oxygen on a regular basis. In addition to the aforementioned, the patient has amedical history significant for paroxysmal atrial fibrillation with RVR, heart failure with reduced ejection fraction and hypertension. On presentation to the emergency department, the patient was documented to be afebrile hemodynamically stable. He was, nevertheless, notably tachycardic. Laboratory evaluation revealed a white blood cell count of 11,000. Hemoglobin and platelet count were stable. Chemistry profile was notable for a creatinine of 1.4 with a lactate of 2.0. CT abdomen/pelvis demonstrated acute sigmoid diverticulitis with adjacent 4 cm abscess formation. The patient in the emergency department was noted to be in atrial fibrillation with RVR. In light of the aforementioned findings, cardiology was consulted along with general surgery. The patient has been placed on antimicrobial therapy. At the present time, the patient remains in atrial fibrillation with RVR. However, his hemodynamic status is stable. There are tentative plans for surgical intervention at some point today. [facility] Medical History PAF (paroxysmal atrial fibrillation) Emphysema/COPD Obstructive sleep apnea Depression Essential (primary) hypertension Obesity Benign neoplasm of maxillary sinus Left bundle branch block (LBBB) Home Medications ?Medication ?Instructions ?Recorded ?Last Taken ?Type ascorbic acid (vitamin C) 500 mg 2 gm PO DAILY general health 05/05/15 05/04/15 08:00 History tablet fluticasone fur. 100 mcg-umeclid 1 ea inhalation DAILY breathing 09/27/20 Unknown History 62.5 mcg-vilant 25 mcg inhalat.powder apixaban 5 mg tablet (Eliquis) 5 mg PO BID blood thinn er 03/20/23 Unknown History albuterol sulfate 2.5 mg/3 mL 2.5 mg inhalation TID [place] N PRN 12/13/24 Unknown History (0.083 %) solution for nebulization bronchospasm balsalazide 750 mg capsule 2,250 mg PO TID ULCERATIVE COLITIS 12/13/24 Unknown History dofetilide 250 mcg capsule 250 mcg PO Q12H heart 12/1312/13/24 09:00 History ipratropium bromide 21 mcg (0.03 1 - 2 spray intranasa l Q6H PRN PRN 12/13/24 Unknown History %) nasal spray allergy symptoms metoprolol succinate 50 mg 50 mg PO Q12H blood pressur e 12/13/24 Unknown History tablet,extended release 24 hr potassium chloride 20 mEq 40 meq PO DAILY potassium Unknown History tablet,extended release(part/cryst) (Klor-Con M) sacubitril 24 mg-valsartan 26 mg 1 tab PO Q12.TCU hear t 12/13/24 Unknown History tablet (Entresto) spironolactone 25 mg tablet 25 mg PO DAILY diuretic Unknown History Allergy/AdvReac Type Severity Reaction Status Date / Time shellfish derived Allergy Nausea/Vom/ Verified 12/13/24 17:40 Diarrhea Family History Father Hypertension Colon cancer Mother Breast cancer Social History Smoking Status: Former smoker quit date: 07/21/06 pack-years: 30 alcohol intake: current alcohol intake frequency: holidays/special occasions only ROS ROS Narrative 10 systems were reviewed with pertinent positives as noted in the HPI above. Physical Exam Const alert, oriented x3 and no apparent distress General Appearance: cooperative HEENT normocephalic, head/scalp atraumatic and moist oral mucous membranes Eyes PERRL, EOMs intact bilaterally and conjunctivae normal Neck supple General: trachea midline Chest inspection of chest normal Resp normal respiratory effort Auscultation: Negative for rales, rhonchi or wheezes Cardio S1 normal heart sound and S2 normal heart sound Rate: tachycardic Rhythm: abnormal rhythm GI soft to palpation GI Narrative: There is mild tenderness noted in the left upper lower quadrant. Extremity no clubbing, cyanosis or edema Skin no rashes or lesions noted Neuro CN's II-XII intact bilaterally, moves all extremities and no focal motor deficits Psych cooperative and affect normal Lab / Micro Data 12/15/24 02:30 12/15/24 02:30 Labs: Laboratory Results - last 24 hr 12/15/24 02:30: WBC 19.4 H, RBC 5.25, Hgb 13.1, Hct 43.6, MCV 83.0, MCH 25.0 L, MCHC 30.0 L, RDW Std Deviation 63.8 H, RDW Coeff of Sea 21.6 H, Plt Count 350, MPV 10.2, APTT 113.6 H*, Sodium 142, Potassium 5.1, Chloride 105, Carbon Oawkejs06.4, Anion Gap 10, BUN 27 H, Creatinine 1.27 H, Estim Creat Clear Calc 64.50, Est GFR (MDRD) Non-Af 60, BUN/Creatinine Ratio 21.1 H, Glucose 158 H, Calcium 9.3 Imaging Radiology Impression Echocardiogram 12/14/24 07:22 Interpretation Summary The estimated ejection fraction is 35-40 %. Moderate LV systolic dysfunction Paradoxical septal motion/secondary to left bundle branch block Limited study No significant valvular abnormality Overall similar EF in comparison to previous echocardiogram Definity used/contrast echo Ordering Physician: Jaziel Lundberg Performed By: Michael Wagner RCS Charges/Coding Visit Charges Inpatient E&M: 65309 Init Hosp L3 12/15/24 1203 <Electronically signed by Montana Leone DO> Cosigner Signature (if applicable): CC: Dr. Zechariah Siddiqui MD~ Signed [facility] Work Phone: 1(397) 228-892805-28-2025 Procedure [facility] 12-15-2024 Progress note Author Delano [facility] Note Date/Time December 15, 2024 9:42a m [facility] Medical Records Department [address] [place] [address] Progress Note 12/15/24 0940 MR#: [id number] Acct: [id number] Name: CONRAD OCONNELL Rep #:[id number] : 1955 69 From: Dleano knox MD PCP: Dr. Zechariah Siddiqui MD Status:ADM IN Location: ICU ICU03-1 Progress Note The patient was unable to have IR drain placed today due to bowel. I discussed performing a laparoscopic drainage of this abscess with washout. I also discussed performing a sigmoid colectomy with likely colostomy. I would like totake the patient and try to wash the abscess out and see if this will heal to try to avoid colostomy. If the abscess contains stool I may have to do a sigmoid resection today. Unfortunately the patient went into A-fib RVR with a heart rate of 170 so I am unable to take him to the OR immediately. He is starting back on his Cardizem drip and receiving a dose of metoprolol. Once hisheart rate is reasonable I will take him for laparoscopic washout with possible bowel resection. I discussed having to perform a colostomy as well. I discussed the risks of the surgery such as bleeding, infection, injury other organs. I also discussed the possibility of having to place a colostomy. The patient is also only saturating 85% on room air and I informed the patient that he would likely return to the ICU intubated after surgery. The patient understands and is in agreement. The patient and his are both in agreementwith surgery. Continue to hold the heparin for surgery Delano Harris MD Pager: [facility] [address] [place] [address] [address] [place] [phone] Office: 12/15/24 0978 <Electronically signed by Delano Harris MD> Delano Harris MD Cosigner Signature (if applicable): CC: ~ Signed [facility] Work Phone: 1(871) 916-783605-28-2025 Progress note Author [facility] Note Date/Time December 15, 2024 7:21a m [facility] Medical Records Department [address] [place] [address] Progress Note - Surgery 12/15/24 0720 MR#: [id number] Acct: [id number] Name: ANISHCONRAD J Rep #:[id number] : 1955 69 From: Delano knox MD PCP: Dr. Zechariah Siddiqui MD Status:ADM IN Location: ICU ICU03-1 Subjective Subjective Patient reports pain is about the same as it was yesterday Objective Data Objective Data Vital Signs: Vital Signs Temp Pulse Resp BP Pulse Ox O2 Del Method O2 Flow Rate 96.8 F L 98 19 H 122/73 H 97 CPAP 3 12/15/24 05:00 12/15/24 05:00 12/15/24 05:00 12/15/24 05:00 12/15/24 05:00 12/15/24 05:00 12/15/24 05:00 FiO2 3 12/15/24 01:48 Oxygen Flow Rate (L/min) 3 Oxygen Delivery Method CPAP Weight: 228 lb 12.8 oz Body Mass Index (BMI) 32.8 Intake & Output: Intake and Output for Last 24 Hours 12/13/24 12/14/24 12/15/24 23:59 23:59 23:59 Intake Total 811.25 / 826.25 2125.83 / 2125.83 233.5 / 233.5 Output Total 1175 / 1575 600 / 600 Balance 811.25 / 826.25 950.83 / 550.83 -366.5 / -366.5 Lab / Micro Data 12/15/24 02:30 12/15/24 02:30 Labs: Laboratory Results - last 24 hr 12/14/24 10:02: APTT 64.8 H 12/15/24 02:30: WBC 19.4 H, RBC 5.25, Hgb 13.1, Hct 43.6, MCV 83.0, MCH 25.0 L, MCHC 30.0 L, RDW Std Deviation 63.8 H, RDW Coeff of Sea 21.6 H, Plt Count 350, MPV 10.2, APTT 113.6 H*, Sodium 142, Potassium 5.1, Chloride 105, Carbon Ugewihk53.4, Anion Gap 10, BUN 27 H, Creatinine 1.27 H, Estim Creat Clear Calc 64.50, Est GFR (MDRD) Non-Af 60, BUN/Creatinine Ratio 21.1 H, Glucose 158 H, Calcium 9.3 Radiography Diagnostic Testing: Radiology Impression Echocardiogram 12/14/24 07:22 Interpretation Summary The estimated ejection fraction is 35-40 %. Moderate LV systolic dysfunction Paradoxical septal motion/secondary to left bundle branch block Limited study No significant valvular abnormality Overall similar EF in comparison to previous echocardiogram Definity used/contrast echo Ordering Physician: Jaziel Lundberg Performed By: Michael Wagner RCS Physical Exam Const oriented x3 and no apparent distress Resp normal respiratory effort Cardio regular rhythm Rate: tachycardic GI soft to palpation Palpation: tender LLQ Assessment & Plan Assessment/Plan (1) Colonic diverticular abscess: PLAN: Patient reports the pain is about the same as yesterday. Heparin was stopped at 2 AM for drainage this morning. Patient is having an IR drain into his diverticular abscess. Continue antibiotics and n.p.o. Delano Harris MD Pager: [facility] [address] [place] [address], [address] [place] [address] Office: 12/15/24 0785 <Electronically signed by Delano Harris MD> Cosigner Signature (if applicable): CC: ~ Signed [facility] Work Phone: [phone]) 243-669205-27-2025 Progress note Author Eric Gutierrez [facility] Note Date/Time December 14, 2024 1:27p m [facility] Medical Records Department [address] [place] [address] Progress Note - Hospitalist 12/14/24 1133 MR#: [id number] Acct: [id number] Name: CONRAD OCONNELL Rep #:[id number] : 1955 69 From: Eric spencer DO PCP: Dr. Zechariah Siddiqui MD Status:ADM IN Location: ICU ICU03-1 Reason for Visit Reason for Visit: Diagnoses Essential (primary) hypertension (12/13/24) Unspecified atrial fibrillation (12/13/24) Diverticulitis of large intestine with perforation and abscess without bleeding (12/13/24) Diverticulitis of intestine, part unspecified, without perforation or abscess without bleeding (12/13/24) Unspecified abdominal pain (12/13/24) Subjective Subjective Saw patient at bedside this morning, present. Patient was sitting back in bed fairly comfortably and conversing normally. He did have nausea noted duringour encounter with intermittent belching. Noted that his left lower quadrant pain has been well-controlled with pain medication. Stated that Zofran has beenhelpful for his nausea. Denied any palpitations currently. No other new concerns today. Objective Data Objective Data Vital Signs: Vital Signs Temp Pulse Resp BP Pulse Ox O2 Del Method O2 Flow Rate 98.9 F 88 95 H 148/72 H 95 Nasal Cannula 3 12/14/24 08:00 12/14/24 10:00 12/14/24 10:00 12/14/24 10:00 12/14/24 10:00 12/14/24 10:00 12/14/24 10:00 Oxygen Flow Rate (L/min) 3 Oxygen Delivery Method Nasal Cannula Weight: 104.2 kg Body Mass Index (BMI) 32.8 Intake & Output: Intake and Output for Last 24 Hours 12/12/24 12/13/24 12/14/24 23:59 23:59 23:59 Intake Total 811.25 / 826.25 2028.08 / 8.08 Output Total 200 / 200 Balance 811.25 / 826.25 1828.08 / 1828.08 Lab / Micro Data 12/14/24 03:24 12/14/24 03:24 Labs: Laboratory Results - last 24 hr 12/13/24 17:47: WBC 11.3 H, RBC 6.10, Hgb 15.1, Hct 50.0, MCV 82.0, MCH 24.8 L, MCHC 30.2 L, RDW Std Deviation 61.8 H, RDW Coeff of Sea 21.9 H, Plt Count 444, MPV 10.4, Immature Gran % (Auto) 0.500, Neut % (Auto) 74.8 H, Lymph % (Auto) 16.7 L, [place] % (Auto) 6.6, Eos % (Auto) 1.0, Baso % (Auto) 0.4, Absolute Neuts (auto) 8.5 H, Absolute Lymphs (auto) 1.89, Nucleated RBC % 0, Platelet Estimate SLT INC, Anisocytosis 2+, Sodium 140, Potassium 4.8, Chloride 101, Carbon Dioxide 24.4, Anion Gap 15, BUN 36 H, Creatinine 1.41 H, Est GFR (MDRD) Non-Af 53 L, BUN/Creatinine Ratio 25.2 H, Glucose 133 H, Calcium 10.4, Total Bilirubin 0.66, AST 30, ALT 29, Alkaline Phosphatase 61, Total Protein 7.5, Albumin 3.8, Globulin 3.7, Albumin/Globulin Ratio 1.0, Lipase 25 12/13/24 18:30: Lactic Acid 2.0 12/13/24 20:00: PT 14.6, INR 1.1, APTT 30.7 12/13/24 22:41: Lactic Acid 1.5 12/14/24 03:24: WBC 16.6 H, RBC 5.48, Hgb 13.6, Hct 44.0, MCV 80.3, MCH 24.8 L, MCHC 30.9 L, RDW Std Deviation 60.3 H, RDW Coeff of Sea 21.5 H, Plt Count 380, MPV 10.1, Immature Gran % (Auto) 0.500, Neut % (Auto) 88.2 H, Lymph % (Auto) 7.4L, [place] % (Auto) 3.7, Eos % (Auto) 0.0, Baso % (Auto) 0.2, Absolute Neuts (auto)14.7 H, Absolute Lymphs (auto) 1.23, Nucleated RBC % 0, Differential Comment SCANNED, Platelet Estimate ADEQUATE, Anisocytosis 2+, Target Cells RARE, Ovalocytes 1+, PT 15.8 H, INR 1.2, APTT 65.7 H, Sodium 141, Potassium 5.3 H, Chloride 104, Carbon Dioxide 23.8, Anion Gap 13, BUN 32 H, Creatinine 1.47 H, Estim Creat Clear Calc 55.39, Est GFR (MDRD) Non-Af 51 L, BUN/Creatinine Ratio 21.7 H, Glucose 167 H, Calcium 9.3, Total Bilirubin 1.05, AST 26, ALT 25, Alkaline Phosphatase 45, Total Protein 6.3, Albumin 3.2 L, Globulin 3.2, Albumin/Globulin Ratio 1.0 12/14/24 10:02: APTT 64.8 H Radiography Diagnostic Testing: Radiology Impression Abdomen/Pelvis CTA 12/13/24 17:51 IMPRESSION: No evidence of abdominal aortic aneurysm or dissection. Acute sigmoid diverticulitis with an adjacent 4 cm abscess formation. Colonoscopy is recommended upon resolution to exclude malignancy. Prominent loop of proximal small bowel within the left abdomen with subtle wall thickening and adjacent stranding, this may represent reactive inflammation secondary to acute sigmoid diverticulitis versussuperimposed enteritis. Partial obstruction can not be completely excluded. Small fluid and fat containing umbilical hernia, similar in appearance to the prior study. Red Alert: Acute sigmoid diverticulitis with abscess formation. The critical information above was relayed directly by me by telephone to Oswaldo Frances on 12/13/2024 at 7:29 pm with readback verification. Reading Location[facility] Physical Exam Const alert, oriented x3 and no apparent distress Constitutional Narrative: Pleasant elderly male, class I obesity, sitting back in bed fairly comfortably, intermittently nauseous during our encounter but otherwise conversing normally. General Appearance: cooperative and comfortable HEENT normocephalic, head/scalp atraumatic, hearing grossly normal bilaterally, nasal mucous membranes and turbinates normal and moist oral mucous membranes Eyes PERRL, EOMs intact bilaterally and conjunctivae normal Neck full ROM Chest inspection of chest normal Resp normal respiratory effort, normal air movement, no use of accessory muscles and clear to auscultation bilaterally Cardio regular rate, regular rhythm, no murmurs and peripheral pulses 2+ throughout GI GI Narrative: Mild to moderate LLQ tenderness to palpation. Abdomen otherwise soft and nondistended. No guarding or rebound tenderness. Back/Spine normal ROM Extremity normal to inspection, full ROM and no pedal edema Skin no rashes or lesions noted Psych mental status grossly normal Assessment & Plan Assessment/Plan (1) Diverticulitis: (2) Colonic diverticular abscess: (3) Atrial fibrillation with RVR: PLAN: Plan Patient is a 69-year-old male who presented to [facility] ED on 12/13/2024 with worsening abdominal pain. 1. Sigmoid diverticulitis with abscess ? General Surgery following. CT abdomen pelvis on admit showed acute sigmoid diverticulitis with an adjacent 4 cm abscess formation. Per surgery, planning for IR drain placement for the abscess tomorrow. Continue n.p.o. status and IV Zosyn for now. Continue symptom control with IV pain and nausea medications as needed. 2. Paroxysmal A-fib with RVR ? Cardiology following. Follows with cardiology EP in [place]; completed Tikosyn loading followed by cardioversion there last week. Unfortunately was only in sinus rhythm for 2 days before going back into A-fib. Was in A-fib withRVR on arrival here. Placed on Cardizem drip and converted back to normal sinusrhythm by morning of 12/14, Cardizem drip discontinued. Continue home Tikosyn. IV Lopressor added as needed for now. Continue heparin drip for anticoagulation. Per cardiology, limited echo ordered to assess and evaluate LVfunction. 3. History of HFrEF, hypertension ? Follows with cardiology in [place]. Last echo in 2022 showed EF 40%. Repeatlimited echo ordered here as above. Continue home Tikosyn and Toprol as noted above. Other home BP medications on hold for now, will restart as able. 4. Mild acute hypoxia in setting of COPD ? Not on home oxygen, requiring up to 3 L nasal cannula to maintain appropriate oxygen saturations here. Breathing comfortably and lung sounds clear. Suspect primarily secondary to poor respiratory excursion in setting of abdominal pain from abscess as above. Continue incentive spirometry. Continue home inhalers. Wean supplemental oxygen as able. 5. Class I obesity with KIM ? BMI 33 on admit. Encouraged weight loss. Continue CPAP at night and with naps. DVT prophylaxis: Not indicated, on heparin drip CODE STATUS: Full code, verified Expected disposition: Home, TBD Total clinical time spent by myself addressing the patient's medical issues, reviewing all the data, and collaborating with patient's care team: 35 minutes. Charges/Coding Visit Charges Inpatient E&M: 30843 Subs Hosp L2 12/14/24 1327 <Electronically signed by Eric Gutierrez DO> Cosigner Signature (if applicable): CC: ~ Signed [facility] Work Phone: [phone]) [phone] Consult note Author Delano Harris [facility] Note Date/Time December 14, 2024 11:44 am [facility] Medical Records Department [address] [place] [address] Consultation - Surgical 12/14/24 1143 MR#: [id number] Acct: [id number] Name: CONRAD OCONNELL Rep #:[id number] : 1955 69 From: Delano knox MD PCP: Dr. Zechariah Siddiqui MD Status:ADM IN Location: ICU ICU03-1 Assessment & Plan Assessment/Plan (1) Colonic diverticular abscess: PLAN: The patient has diverticulitis with an abscess that is 4 cm. He is on Eliquis and took this yesterday at 6 AM. He is currently on a heparin drip for anticoagulation due to the A-fib with RVR and he is also on a Cardizem drip. Heis currently being rate controlled. I will order a IR drain of the abscess as soon as he can be off of his anticoagulation. Continue antibiotics and n.p.o. Delano Harris MD Pager: [facility] [address] [place] [address] Out[address] [place], [address] [place] [address] Office: HPI Consult Data Date of Consult: 12/14/24 HPI Narrative HPI Narrative: CONRAD OCONNELL, is a 69 M who presents with abdominal pain. Patient is abdominalpain is in left lower quadrant. He denies fevers or chills. He is also in A-fib with RVR. [facility] Medical History PAF (paroxysmal atrial fibrillation) Emphysema/COPD Obstructive sleep apnea Depression Essential (primary) hypertension Obesity Benign neoplasm of maxillary sinus Left bundle branch block (LBBB) Home Medications ?Medication ?Instructions ?Recorded ?Last Taken ?Type ascorbic acid (vitamin C) 500 mg 2 gm PO DAILY general health 05/05/15 05/04/15 08:00 History tablet fluticasone fur. 100 mcg-umeclid 1 ea inhalation DAILY breathing 09/27/20 Unknown History 62.5 mcg-vilant 25 mcg inhalat.powder apixaban 5 mg tablet (Eliquis) 5 mg PO BID blood thinn er 03/20/23 Unknown History albuterol sulfate 2.5 mg/3 mL 2.5 mg inhalation TID [place] N PRN 12/13/24 Unknown History (0.083 %) solution for nebulization bronchospasm balsalazide 750 mg capsule 2,250 mg PO TID ULCERATIVE COLITIS 12/13/24 Unknown History dofetilide 250 mcg capsule 250 mcg PO Q12H heart 12/1312/13/24 09:00 History ipratropium bromide 21 mcg (0.03 1 - 2 spray intranasa l Q6H PRN PRN 12/13/24 Unknown History %) nasal spray allergy symptoms metoprolol succinate 50 mg 50 mg PO Q12H blood pressur e 12/13/24 Unknown History tablet,extended release 24 hr potassium chloride 20 mEq 40 meq PO DAILY potassium Unknown History tablet,extended release(part/cryst) (Klor-Con M) sacubitril 24 mg-valsartan 26 mg 1 tab PO Q12.TCU hear t 12/13/24 Unknown History tablet (Entresto) spironolactone 25 mg tablet 25 mg PO DAILY diuretic Unknown History Allergy/AdvReac Type Severity Reaction Status Date / Time shellfish derived Allergy Nausea/Vom/ Verified 12/13/24 17:40 Diarrhea Family History Father Hypertension Colon cancer Mother Breast cancer Social History Smoking Status: Former smoker quit date: 07/21/06 pack-years: 30 alcohol intake: current alcohol intake frequency: holidays/special occasions only Physical Exam Const alert and oriented x3 HEENT normocephalic Eyes PERRL Lymph Lymphatic: no lymphadenopathy noted Resp normal respiratory effort Cardio Rate: tachycardic GI soft to palpation Palpation: tender LLQ; Negative for guarding Extremity normal to inspection Neuro CN's II-XII intact bilaterally Lab / Micro Data 12/14/24 03:24 12/14/24 03:24 Labs: Laboratory Results - last 24 hr 12/13/24 17:47: WBC 11.3 H, RBC 6.10, Hgb 15.1, Hct 50.0, MCV 82.0, MCH 24.8 L, MCHC 30.2 L, RDW Std Deviation 61.8 H, RDW Coeff of Sea 21.9 H, Plt Count 444, MPV 10.4, Immature Gran % (Auto) 0.500, Neut % (Auto) 74.8 H, Lymph % (Auto) 16.7 L, [place] % (Auto) 6.6, Eos % (Auto) 1.0, Baso % (Auto) 0.4, Absolute Neuts (auto) 8.5 H, Absolute Lymphs (auto) 1.89, Nucleated RBC % 0, Platelet Estimate SLT INC, Anisocytosis 2+, Sodium 140, Potassium 4.8, Chloride 101, Carbon Dioxide 24.4, Anion Gap 15, BUN 36 H, Creatinine 1.41 H, Est GFR (MDRD) Non-Af 53 L, BUN/Creatinine Ratio 25.2 H, Glucose 133 H, Calcium 10.4, Total Bilirubin 0.66, AST 30, ALT 29, Alkaline Phosphatase 61, Total Protein 7.5, Albumin 3.8, Globulin 3.7, Albumin/Globulin Ratio 1.0, Lipase 25 12/13/24 18:30: Lactic Acid 2.0 12/13/24 20:00: PT 14.6, INR 1.1, APTT 30.7 12/13/24 22:41: Lactic Acid 1.5 12/14/24 03:24: WBC 16.6 H, RBC 5.48, Hgb 13.6, Hct 44.0, MCV 80.3, MCH 24.8 L, MCHC 30.9 L, RDW Std Deviation 60.3 H, RDW Coeff of Sea 21.5 H, Plt Count 380, MPV 10.1, Immature Gran % (Auto) 0.500, Neut % (Auto) 88.2 H, Lymph % (Auto) 7.4L, [place] % (Auto) 3.7, Eos % (Auto) 0.0, Baso % (Auto) 0.2, Absolute Neuts (auto)14.7 H, Absolute Lymphs (auto) 1.23, Nucleated RBC % 0, Differential Comment SCANNED, Platelet Estimate ADEQUATE, Anisocytosis 2+, Target Cells RARE, Ovalocytes 1+, PT 15.8 H, INR 1.2, APTT 65.7 H, Sodium 141, Potassium 5.3 H, Chloride 104, Carbon Dioxide 23.8, Anion Gap 13, BUN 32 H, Creatinine 1.47 H, Estim Creat Clear Calc 55.39, Est GFR (MDRD) Non-Af 51 L, BUN/Creatinine Ratio 21.7 H, Glucose 167 H, Calcium 9.3, Total Bilirubin 1.05, AST 26, ALT 25, Alkaline Phosphatase 45, Total Protein 6.3, Albumin 3.2 L, Globulin 3.2, Albumin/Globulin Ratio 1.0 12/14/24 10:02: APTT 64.8 H Imaging Radiology Impression Abdomen/Pelvis CTA 12/13/24 17:51 IMPRESSION: No evidence of abdominal aortic aneurysm or dissection. Acute sigmoid diverticulitis with an adjacent 4 cm abscess formation. Colonoscopy is recommended upon resolution to exclude malignancy. Prominent loop of proximal small bowel within the left abdomen with subtle wall thickening and adjacent stranding, this may represent reactive inflammation secondary to acute sigmoid diverticulitis versussuperimposed enteritis. Partial obstruction can not be completely excluded. Small fluid and fat containing umbilical hernia, similar in appearance to the prior study. Red Alert: Acute sigmoid diverticulitis with abscess formation. The critical information above was relayed directly by me by telephone to Oswaldo Frances on 12/13/2024 at 7:29 pm with readback verification. Reading Location: [facility] 12/14/24 1145 <Electronically signed by Delano Harris MD> Cosigner Signature (if applicable): CC: Dr. Zechariah Siddiqui MD~ Signed [facility] Work Phone: [phone]) 124-581005-27-2025 History of Present illness Narrative* Home Lea RN - 12/14/2024 11:40 AM EDT Rec'd VM from pt stating he is back in afib starting Friday night. Attempted to reach pt, unable tounderstand via phone with poor connection. [employer] message sent. * Home Lea RN - 12/14/2024 11:40 AM EDT Attempted to speak w through patients phone and her phone, unable to understand d/t poor connection. Explained that communication would not be possible over the phone so we will close care marta referral, however my information was sent via [employer] should they need anything. verbalized understanding. [facility] Discharge summary Author Oswaldo Frances [facility] Note Date/Time December 13, 2024 11:19 pm [facility] Medical Records Department [address] [place] [address] Emergency Department Summary 12/13/24 MR#: [id number] Acct: [id number] Name: CONRAD OCONNELL Rep #:[id number] : 1955 69 From: Oswaldo Hudson PCP: Dr. Zechariah Siddiqui MD Status:ADM IN Location: ICU ICU03-1 HPI HPI - GI History of Present Illness Chief Complaint: Abd Pain Informant: patient and EMS Narrative Narrative: Presents worsening generalized abdominal pain for the past 3 hours. Nausea without vomiting. Had a bowel movement during this time that was normal. Denies fevers. Status post fentanyl by EMS pain still an 8. He denies any abdominal surgeries. Has known abdominal hernia followed by his PCP. He has not been referred to surgery. Has history of atrial fibrillation followed by electrophysiology in [place]. He is on Eliquis twice a day with compliance. He states this past week had cardioversion which lasted for 2 days. He does notfeel the palpitations or racing heart. Denies lightheaded symptoms. He is on metoprolol. Denies chest pains or shortness of breath. Denies any back pain. Prior similar symptoms: No PFSH PFSH Medical History PAF (paroxysmal atrial fibrillation) Emphysema/COPD Obstructive sleep apnea Depression Essential (primary) hypertension Obesity Benign neoplasm of maxillary sinus Left bundle branch block (LBBB) Home Medications ?Medication ?Instructions ?Recorded ?Last Taken ?Type ascorbic acid (vitamin C) 500 mg 2 gm PO DAILY general health 05/05/15 05/04/15 08:00 History tablet fluticasone fur. 100 mcg-umeclid 1 ea inhalation DAILY breathing 09/27/20 Unknown History 62.5 mcg-vilant 25 mcg inhalat.powder apixaban 5 mg tablet (Eliquis) 5 mg PO BID blood thinn er 03/20/23 Unknown History albuterol sulfate 2.5 mg/3 mL 2.5 mg inhalation TID [place] N PRN 12/13/24 Unknown History (0.083 %) solution for nebulization bronchospasm balsalazide 750 mg capsule 2,250 mg PO TID ULCERATIVE COLITIS 12/13/24 Unknown History dofetilide 250 mcg capsule 250 mcg PO Q12H heart 12/1312/13/24 09:00 History ipratropium bromide 21 mcg (0.03 1 - 2 spray intranasa l Q6H PRN PRN 12/13/24 Unknown History %) nasal spray allergy symptoms metoprolol succinate 50 mg 50 mg PO Q12H blood pressur e 12/13/24 Unknown History tablet,extended release 24 hr potassium chloride 20 mEq 40 meq PO DAILY potassium Unknown History tablet,extended release(part/cryst) (Klor-Con M) sacubitril 24 mg-valsartan 26 mg 1 tab PO Q12.TCU hear t 12/13/24 Unknown History tablet (Entresto) spironolactone 25 mg tablet 25 mg PO DAILY diuretic Unknown History Allergy/AdvReac Type Severity Reaction Status Date / Time shellfish derived Allergy Nausea/Vom/ Verified 12/13/24 17:40 Diarrhea Family History Father Hypertension Colon cancer Mother Breast cancer Social History Smoking Status: Former smoker quit date: 07/21/06 pack-years: 30 alcohol intake: current alcohol intake frequency: holidays/special occasions only ROS ROS ED Constitutional Constitutional ED: Denies chills, fever(s) or sweats ENT ENT ED: Denies sore throat Cardiovascular Cardiovascular: Denies chest pain, leg edema, palpitations or racing heartbeat Respiratory/Chest Respiratory/Chest: Denies cough, dyspnea or dyspnea on exertion Gastrointestinal Gastrointestinal: Reports abdominal pain and nausea; Denies diarrhea or vomiting Genitourinary Genitourinary ED: Denies dysuria, hematuria or urinary frequency Musculoskeletal Musculoskeletal: Denies back pain, extremity pain or neck pain Integumentary Denies rash or wounds Neurologic Neurologic: Denies headache(s), paresthesias or weakness EXAM Physical Exam Const Vital Signs: 12/13/24 17:40 12/13/24 17:46 12/13/24 18:21 Temperature 98.3 F 98.3 F Temperature Source Oral Oral Pulse Rate 137 H 145 H 136 H Respiratory Rate 18 16 Blood Pressure 117/103 H 126/111 H Blood Pressure Mean 107 116 Pulse Ox 97 Oxygen Delivery Method Room Air Oxygen Flow Rate (L/min) 12/13/24 18:35 12/13/24 18:41 12/13/24 18:42 Temperature Temperature Source Pulse Rate 149 H 120 H Respiratory Rate 27 H Blood Pressure 114/89 H 114/89 H Blood Pressure Mean 97 97 Pulse Ox 88 95 Oxygen Delivery Method Room Air Nasal Cannula Oxygen Flow Rate (L/min) 2 12/13/24 18:43 12/13/24 18:59 12/13/24 19:29 Temperature 98.3 F 98.3 F Temperature Source Oral Oral Pulse Rate 117 H 134 H 142 H Respiratory Rate 27 H 17 22 H Blood Pressure 114/89 H 106/82 H 108/77 Blood Pressure Mean 97 90 87 Pulse Ox 95 98 97 Oxygen Delivery Method Nasal Cannula Room Air Oxygen Flow Rate (L/min) 2 2 12/13/24 20:00 12/13/24 20:06 Temperature 98.3 F Temperature Source Oral Pulse Rate 128 H 147 H Respiratory Rate 25 H 19 H Blood Pressure 109/86 H 109/86 H Blood Pressure Mean 93 93 Pulse Ox 97 Oxygen Delivery Method Room Air Oxygen Flow Rate (L/min) Positive well nourished and well developed Constitutional Narrative: Uncomfortable nontoxic. General Appearance ED: well developed HEENT Reports moist mucous membranes normocephalic and atraumatic Eyes General Eye ED: Yes normal appearance of both eyes Neck full ROM Chest Wall Chest: Negative for tenderness Resp normal respiratory effort and normal air movement Effort and Inspection: symmetric chest movement; Negative for respiratory distress Cardio no murmurs Rate: tachycardic Rhythm: abnormal rhythm Peripheral Pulses: pulses 2+ throughout GI normal to inspection, nondistended, normoactive bowel sounds GI Narrative: Generalized abdominal tenderness however seem to be more tender on the left side. There is a reducible umbilical hernia. Palpation: Negative for guarding or rebound tenderness present Extremity normal to inspection General Extremety ED: Negative for edema or tenderness General Extremity: Negative for edema Neuro oriented x3 and no sensory deficits noted Sensorium / Orientation: awake and alert Skin no rashes or lesions noted and no wounds MDM MDM MDM Narrative Medical decision making narrative: Interventions / MDM: Differential diagnosis: Complicated diverticulitis with abscess, A-fib with RVR,abdominal pain Diagnosis considered but do not suspect: Abdominal vascular occlusion however CTnegative. Incarcerated hernia however CT negative. My EKG interpretation: A-fib RVR rate of 138, no ST changes. Imaging independently reviewed and interpreted by myself: CT angiogram abdomen pelvis: Acute complicated diverticulitis left lower quadrant with a 4 cm abscessand discussed with radiology. Fat-containing hernia. Reports some small bowel enteritis. No occlusion or dissection of the arteries. This was in discussion with radiology. External documents reviewed: CT abdomen pelvis July 2024 outpatient reported diverticulitis. Per patient and family ordered by GI Dr. Sevilla secondary to inability to complete colonoscopy. They suspected ulcerative colitis and not infectious. No pain at that time. He is treated with steroids. Since then intermittently been on steroids last till yesterday for pulmonary issue. Test considered but not ordered:N/A ED course: Patient Lisbet RVR is asymptomatic with his no lightheaded symptoms. Compliant with his Eliquis. But sudden severe generalized abdominal pain. IV established IV Dilaudid Zofran ordered with fluids. IV Lopressor up to 3 doses also ordered for his RVR. He sent directly to CT for angiogram to rule out any thrombus. 1824: After 3 doses Lopressor per nursing heart rate still 130s. Blood [id number] systolic. Will dose with IV Cardizem bolus plan for drip if needed. Pain is improving per nursing. 1854: Pain is improving currently seems more in left lower quadrant. After Cardizem bolus heart rate 110s to 130s. Systolic pressure 106. I will order a Cardizem drip. Labs white count 11.3 normal lipase normal liver enzymes. Creatinine 1.41. Fluids were given. Lactic acid pending. CT results are pending. 1929: Lactic acid returned at 2.0. CT and discussed with radiologist concerns for complicated diverticulitis 4 cm abscess no perforations. Fat-containing abdominal hernia. No occlusion or dissection of the vessels. Zosyn will be ordered. 1947: I spoke with on-call surgeon Dr. Harris, discussed patient's history and findings. Discussed his A-fib with RVR on blood thinners. He reports admission to medicine plan on a drain tube when he is more stable and can be offanticoagulants. At this time with his RVR, agrees to start heparin drip and hold Eliquis at this time for planning. He will see him in the morning as a consult. Will discuss with hospitalist for admission. 1999: I spoke with hospitalist Dr. Hester updated. Patient be admitted to ICU. 2034: Awaiting transfer up to ICU. Nursing reporting patient want something to relax. I will order him 1 mg of IV Ativan. Re-evaluation: stable Disposition discussed with patient/family/significant other: Patient and family Case discussed with consulting clinician: General Surgery, hospitalist This note was generated with Zuki dictation software. It may contain incorrectwords, spelling, and punctuation that were not noted in checking the note beforesigning. Lab Data Attestation: I reviewed the patient's lab results. Labs: Laboratory Results - last 24 hr 12/13/24 12/13/24 12/13/24 17:47 18:30 20:00 WBC 11.3 H RBC 6.10 Hgb 15.1 Hct 50.0 MCV 82.0 MCH 24.8 L MCHC 30.2 L RDW Std Deviation 61.8 H RDW Coeff of Sea 21.9 H Plt Count 444 MPV 10.4 Immature Gran % (Auto) 0.500 Neut % (Auto) 74.8 H Lymph % (Auto) 16.7 L [place] % (Auto) 6.6 Eos % (Auto) 1.0 Baso % (Auto) 0.4 Absolute Neuts (auto) 8.5 H Absolute Lymphs (auto) 1.89 Nucleated RBC % 0 Platelet Estimate SLT INC Anisocytosis 2+ PT 14.6 INR 1.1 APTT 30.7 Sodium 140 Potassium 4.8 Chloride 101 Carbon Dioxide 24.4 Anion Gap 15 BUN 36 H Creatinine 1.41 H Est GFR (MDRD) Non-Af 53 L BUN/Creatinine Ratio 25.2 H Glucose 133 H Lactic Acid 2.0 Calcium 10.4 Total Bilirubin 0.66 AST 30 ALT 29 Alkaline Phosphatase 61 Total Protein 7.5 Albumin 3.8 Globulin 3.7 Albumin/Globulin Ratio 1.0 Lipase 25 Radiography Diagnostic Testing: Clinical Impression(s) from Imaging Studies Abdomen/Pelvis CTA 12/13/24 17:51 IMPRESSION: No evidence of abdominal aortic aneurysm or dissection. Acute sigmoid diverticulitis with an adjacent 4 cm abscess formation. Colonoscopy is recommended upon resolution to exclude malignancy. Prominent loop of proximal small bowel within the left abdomen with subtle wall thickening and adjacent stranding, this may represent reactive inflammation secondary to acute sigmoid diverticulitis versussuperimposed enteritis. Partial obstruction can not be completely excluded. Small fluid and fat containing umbilical hernia, similar in appearance to the prior study. Red Alert: Acute sigmoid diverticulitis with abscess formation. The critical information above was relayed directly by me by telephone to Oswaldo Frances on 12/13/2024 at 7:29 pm with readback verification. Reading Location: [facility] Critical Care Time Critical Care Time: Yes Critical care time (excluding procedures): 30-74 minutes, Discussing w/Patient &/or Family/Career Technology Teacher, Discussing w/Consultants, Arranging Admission or Transfer, Performing Direct Patient Care at Bedside and - Discharge Plan Dx/Rx/DC Orders Clinical Impression: Diverticulitis, Colonic diverticular abscess, Abdominal pain, Atrial fibrillation with RVR, Chronic anticoagulation Disposition Disposition: [facility] Discharge Date/Time: 12/13/24 20:55 What to do if you have Problems For any increased pain, shortness of breath, bleeding, nausea or vomiting, chestpain, or any unexpected problems, contact your Primary Care Provider. Call [facility] ([phone]) or report to the closest Emergency Room. Call 911 if necessary. 12/13/24 1148 <Electronically signed by Oswaldo Hudson> Cosigner Signature (if applicable): CC: Dr. Zechariah Siddiqui MD ~ Signed [facility] Work Phone: 1(772) 862-168105-26-2025 Evaluation note* Diagnosis Onset Date Resolution Status Admit Date Abdominal pain acute December 13, 2024 8:27pm Abnormal electrocardiogram acute December 13, 2024 8:27pm Atrial fibrillation with RVR acute December 13, 2024 8:27pm Atrial flutter with rapid ventricular response acute December 13, 2 025 8:27pm Chronic anticoagulation acute M 2024 8:27pm Colonic diverticular abscess acute December 13, 2024 8:27pm Diverticulitis acute December 13, 2024 8:27pm LV dysfunction acute December 13, 2024 8:27pm PAF (paroxysmal atrial fibrillation) acute December 13, 2024 8 :27pm Superficial venous thrombosi s of arm acute December 13, 2024 8 :27pm Essential (primary) hypertension chr onic December 13, 2024 8:27pm Left bundle branch block (LBBB) 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, 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 8:27pm [facility] Work Phone: 1(224) 268-280805-26-2025 Evaluation note* Diagnosis Onset Date Resolution Status Admit Date Abdominal pain acute December 13, 2024 8:27pm Atrial fibrillation with RVR acute December 13, 2024 8:27pm Atrial flutter with rapid ventricular response acute December 13, 2 025 8:27pm Colonic diverticular abscess acute December 13, 2024 8:27pm Diverticulitis acute December 13, 2024 8:27pm Superficial venous thrombosi s of arm acute December 13, 2024 8 :27pm Abnormal electrocardiogram inactive December 13, 2024 8:27pm Chronic anticoagulation inactive ay 2024 8:27pm Essential (primary) hypertension lyla ctive December 13, 2024 8:27pm Left bundle branch block (LBBB) inac tive December 13, 2024 8:27pm LV dysfunction inactive December 13, 2024 8:27pm PAF (paroxysmal atrial fibrillation) inactive December 13, 2024 8 :27pm [facility] Work Phone: 1(578) 257-664405-26-2025 Evaluation note* Diagnosis Onset Date Resolution Status Admit Date Abdominal pain acute December 13, 2024 8:27pm Atrial fibrillation with RVR acute December 13, 2024 8:27pm Atrial flutter with rapid ventricular response acute December 13, 2 025 8:27pm Colonic diverticular abscess acute December 13, 2024 8:27pm Diverticulitis acute December 13, 2024 8:27pm Superficial venous thrombosi s of arm acute December 13, 2024 8 :27pm Abnormal electrocardiogram inactive December 13, 2024 8:27pm Chronic anticoagulation inactive M ay 2024 8:27pm Essential (primary) hypertension lyla ctive December 13, 2024 8:27pm Left bundle branch block (LBBB) inac tive December 13, 2024 8:27pm LV dysfunction inactive December 13, 2024 8:27pm PAF (paroxysmal atrial fibrillation) inactive December 13, 2024 8 :27pm Atrial fibrillation with RVR acute March 03, 2025 10:09am Bilateral carotid bruits acute March 03, 2025 10:09am HFrEF (heart failure with re duced ejection fraction) acute March 03, 2025 10:09am [facility] Work Phone: 1(242) 428-224105-26-2025 History and physical note Author Zhang Hester [facility] Note Date/Time December 13, 2024 8:26p m [facility] Medical Records Department [address] [place] [address] History & Physical Exam 12/13/242016 MR#: [id number] Acct: [id number] Name: CONRAD OCONNELL Rep #:[id number] : 1955 69 From: Zhang Hester MD PCP: Dr. Zechariah Siddiqui MD Status:ADM IN Location: ICU ICU03-1 HPI - General General Date of Admission: 12/13/24 Date of Service: 12/13/24 Chief Complaint: abdominal pain HPI Narrative CONRAD OCONNELL, is a 69 M who presents to the emergency room with chief complaintof left lower quadrant abdominal pain. Patient states it was the worst pain he has experienced. Patient has a recent past medical history of new onset atrial fibrillation and was in sinus rhythm for 2 days after this but is now in atrial fibrillation with rapid ventricular response. Patient admits to having nausea but no vomiting and has had a normal bowel movement earlier today his last oral intake was a hamburger earlier in the day. He states the onset of abdominal pain began around 1:00 this afternoon and has gotten worse since and he came to the emergency room for further evaluation. CT scan reveals a diverticulitis with a [address] Ford was consulted by ER physician and plans to do a drain procedure. Patient will be admitted to the intensive care unit for diverticulitis with abscess and atrial fibrillation with RVR. Currently pain iscontrolled after receiving Dilaudid in the emergency room and is on Cardizem drip and heparin drip. [facility] Medical History PAF (paroxysmal atrial fibrillation) Emphysema/COPD Obstructive sleep apnea Depression Essential (primary) hypertension Obesity Benign neoplasm of maxillary sinus Left bundle branch block (LBBB) Home Medications ?Medication ?Instructions ?Recorded ?Last Taken ?Type ascorbic acid (vitamin C) 500 mg 2 gm PO DAILY 5 05/04/15 08:00 History tablet tijfhxzb-[id number]-xnojo acid 0.4 1 ea PO DAILY 05/05/15 08:00 History mg-lycopene 300 mcg-lutein 250 mcg tablet cholecalciferol (vitamin D3) 50 2,000 unit PO DAILY Unknown History mcg (2,000 unit) capsule gabapentin 600 mg tablet 600 mg PO BIDCM 09/15/20 06:00 History sulfasalazine 500 mg tablet 1,000 mg PO BID IBS Unknown History fluticasone fur. 100 mcg-umeclid 1 ea inhalation DAILY 09/27/20 Unknown History 62.5 mcg-vilant 25 mcg inhalat.powder apixaban 5 mg tablet (Eliquis) mg PO 03/20/23 Unknown History hydrochlorothiazide 12.5 mg tablet mg PO 03/20/23 Unkn own History metoprolol tartrate 100 mg tablet mg PO 03/20/23 Unkno wn History Allergy/AdvReac Type Severity Reaction Status Date / Time shellfish derived Allergy Nausea/Vom/ Verified 12/13/24 17:40 Diarrhea Family History Father Hypertension Colon cancer Mother Breast cancer Social History Smoking Status: Former smoker quit date: 07/21/06 pack-years: 30 alcohol intake: current alcohol intake frequency: holidays/special occasions only ROS Constitutional Constitutional: Denies chills or fever(s) Eyes Eyes: Denies blurry vision ENT HEENT: Denies abnormal hearing Cardiovascular Cardiovascular: Denies chest pain Respiratory/Chest Respiratory/Chest: Reports shortness of breath with exertion Gastrointestinal Gastrointestinal: Reports abdominal pain and nausea; Denies constipation, diarrhea or vomiting Genitourinary Genitourinary: Denies dysuria Musculoskeletal Musculoskeletal: Denies back pain Integumentary Integumentary: Denies jaundice Neurologic Neurologic: Denies abnormal gait Psychiatric Psychiatric: Denies anxiety Vital Signs Vital Signs Vital Signs: 12/13/24 17:40 12/13/24 17:46 12/13/24 18:21 Temperature 98.3 F 98.3 F Temperature Source Oral Oral Pulse Rate 137 H 145 H 136 H Respiratory Rate 18 16 Blood Pressure 117/103 H 126/111 H Blood Pressure Mean 107 116 Pulse Ox 97 Oxygen Delivery Method Room Air Oxygen Flow Rate (L/min) 12/13/24 18:35 12/13/24 18:41 12/13/24 18:42 Temperature Temperature Source Pulse Rate 149 H 120 H Respiratory Rate 27 H Blood Pressure 114/89 H 114/89 H Blood Pressure Mean 97 97 Pulse Ox 88 95 Oxygen Delivery Method Room Air Nasal Cannula Oxygen Flow Rate (L/min) 2 12/13/24 18:43 12/13/24 18:59 12/13/24 19:29 Temperature 98.3 F 98.3 F Temperature Source Oral Oral Pulse Rate 117 H 134 H 142 H Respiratory Rate 27 H 17 22 H Blood Pressure 114/89 H 106/82 H 108/77 Blood Pressure Mean 97 90 87 Pulse Ox 95 98 97 Oxygen Delivery Method Nasal Cannula Room Air Oxygen Flow Rate (L/min) 2 2 12/13/24 20:00 12/13/24 20:06 Temperature 98.3 F Temperature Source Oral Pulse Rate 128 H 147 H Respiratory Rate 25 H 19 H Blood Pressure 109/86 H 109/86 H Blood Pressure Mean 93 93 Pulse Ox 97 Oxygen Delivery Method Room Air Oxygen Flow Rate (L/min) Physical Exam Const oriented x3 General Appearance: cooperative and well developed HEENT normocephalic and head/scalp atraumatic Eyes PERRL Neck no lymphadenopathy Lymph Lymphatic: no lymphadenopathy noted Resp normal respiratory effort, normal air movement and clear to auscultation bilaterally Cardio S1 normal heart sound and S2 normal heart sound Rate: tachycardic Rhythm: abnormal rhythm irregularly irregular GI Inspection: abdominal distention Palpation: tender LLQ Extremity normal capillary refill Skin General Skin Exam: turgor normal Neuro CN's II-XII intact bilaterally, no focal motor deficits and no sensory deficits noted Psych cooperative and affect normal Results Lab / Micro Data 12/13/24 17:47 12/13/24 17:47 Labs: Laboratory Results - last 24 hr 12/13/24 17:47: WBC 11.3 H, RBC 6.10, Hgb 15.1, Hct 50.0, MCV 82.0, MCH 24.8 L, MCHC 30.2 L, RDW Std Deviation 61.8 H, RDW Coeff of Sea 21.9 H, Plt Count 444, MPV 10.4, Immature Gran % (Auto) 0.500, Neut % (Auto) 74.8 H, Lymph % (Auto) 16.7 L, [place] % (Auto) 6.6, Eos % (Auto) 1.0, Baso % (Auto) 0.4, Absolute Neuts (auto) 8.5 H, Absolute Lymphs (auto) 1.89, Nucleated RBC % 0, Platelet Estimate SLT INC, Anisocytosis 2+, Sodium 140, Potassium 4.8, Chloride 101, Carbon Dioxide 24.4, Anion Gap 15, BUN 36 H, Creatinine 1.41 H, Est GFR (MDRD) Non-Af 53 L, BUN/Creatinine Ratio 25.2 H, Glucose 133 H, Calcium 10.4, Total Bilirubin 0.66, AST 30, ALT 29, Alkaline Phosphatase 61, Total Protein 7.5, Albumin 3.8, Globulin 3.7, Albumin/Globulin Ratio 1.0, Lipase 25 12/13/24 18:30: Lactic Acid 2.0 Imaging Radiology Impression Abdomen/Pelvis CTA 12/13/24 17:51 IMPRESSION: No evidence of abdominal aortic aneurysm or dissection. Acute sigmoid diverticulitis with an adjacent 4 cm abscess formation. Colonoscopy is recommended upon resolution to exclude malignancy. Prominent loop of proximal small bowel within the left abdomen with subtle wall thickening and adjacent stranding, this may represent reactive inflammation secondary to acute sigmoid diverticulitis versussuperimposed enteritis. Partial obstruction can not be completely excluded. Small fluid and fat containing umbilical hernia, similar in appearance to the prior study. Red Alert: Acute sigmoid diverticulitis with abscess formation. The critical information above was relayed directly by me by telephone to Oswaldo Frances on 12/13/2024 at 7:29 pm with readback verification. Reading Location: [facility] Assessment & Plan Assessment/Plan (1) Atrial fibrillation with RVR: (2) Abdominal pain: (3) Colonic diverticular abscess: (4) Diverticulitis: (5) Essential (primary) hypertension: PLAN: Plan 1 diverticulitis with abscess?admit patient to the intensive care unit-consult Dr. Harris for surgical management, continue IV Zosyn and Dilaudid 1 mg IV every 2 hours as needed pain, IV normal saline at a rate of 125 cc/h, repeat CBC, CMP and coag panel in the a.m. will maintain patient is n.p.o. except for oral medications for time being. Will add as needed Zofran for nausea 2. Atrial fibrillation with rapid ventricular response?patient has been on Tikosyn and was cardioverted last weekend at the [facility] in [place] but has only maintained sinus rhythm for 2 days. Currently will targetrate control less than 120 bpm using Cardizem drip and consult cardiology for further cardiology management 3. Hypertension?we will continue home medications 4. History of sleep apnea patient will be on oxygen and may add CPAP if necessary 5. DVT prophylaxis?patient is heparinized Charges/Coding Visit Charges Inpatient E&M: 86230 Init Hosp L2 12/13/242025 <Electronically signed by Zhang Hester MD> Cosigner Signature (if applicable): CC: Dr. Zechariah Siddiqui MD; Dr. Zhang Hester MD~ Signed [facility] Work Phone: 1(587) 172-232105-26-2025 History and physical note [facility] Medical Records Department [address] [place] [address] History & Physical Exam 12/13/242016 MR#: [id number] Acct: [id number] Name: CONRAD OCONNELL Rep #:[id number] : 1955 69 From: Zhang Hester MD PCP: Dr. Zechariah Siddiqui MD Status:ADM IN Location: ICU ICU03-1 HPI - General General Date of Admission: 12/13/24 Date of Service: 12/13/24 Chief Complaint: abdominal pain HPI Narrative CONRAD OCONNELL, is a 69 M who presents to the emergency room with chief complaintof left lower quadrant abdominal pain. Patient states it was the worst pain he has experienced. Patient has a recent past medical history of new onset atrial fibrillation and was in sinus rhythm for 2 days after this but is now in atrial fibrillation with rapid ventricular response. Patient admits to having nausea butno vomiting and has had a normal bowel movement earlier today his last oral intake was a hamburger earlier in the day. He states the onset of abdominal pain began around 1:00 this afternoon and has gotten worse since and he came to the emergency room for further evaluation. CT scan reveals a diverti culitis with a [address] Ford was consulted by ER physician and plans to do a drain procedure. Patient will be admitted to the intensive care unit for diverticulitis with abscess and atrial fibrillation with RVR. Currently pain iscontrolled after receiving Dilaudid in the emergency room and is on Cardizem drip and heparin drip. [facility] Medical History PAF (paroxysmal atrial fibrillation) Emphysema/COPD Obstructive sleep apnea Depression Essential (primary) hypertension Obesity Benign neoplasm of maxillary sinus Left bundle branch block (LBBB) Home Medications ?Medication ?Instructions ?Recorded ?Last Taken ?Type ascorbic acid (vitamin C) 500 mg 2 gm PO DAILY 5 05/04/15 08:00 History tablet opgezitz-ioy-lyycd acid 0.4 1 ea PO DAILY 05/05/15 08:00 History mg-lycopene 300 mcg-lutein 250 mcg tablet cholecalciferol (vitamin D3) 50 2,000 unit PO DAILY Unknown History mcg (2,000 unit) capsule gabapentin 600 mg tablet 600 mg PO BIDCM 09/15/20 06:00 History sulfasalazine 500 mg tablet 1,000 mg PO BID IBS Unknown History fluticasone fur. 100 mcg-umeclid 1 ea inhalation DAILY 09/27/20 Unknown History 62.5 mcg-vilant 25 mcg inhalat.powder apixaban 5 mg tablet (Eliquis) mg PO 03/20/23 Unknown History hydrochlorothiazide 12.5 mg tablet mg PO 03/20/23 Unkn own History metoprolol tartrate 100 mg tablet mg PO 03/20/23 Unkno wn History Allergy/AdvReac Type Severity Reaction Status Date / Time shellfish derived Allergy Nausea/Vom/ Verified 12/13/24 17:40 Diarrhea Family History Father Hypertension Colon cancer Mother Breast cancer Social History Smoking Status: Former smoker quit date: 07/21/06 pack-years: 30 alcohol intake: current alcohol intake frequency: holidays/special occasions only ROS Constitutional Constitutional: Denies chills or fever(s) Eyes Eyes: Denies blurry vision ENT HEENT: Denies abnormal hearing Cardiovascular Cardiovascular: Denies chest pain Respiratory/Chest Respiratory/Chest: Reports shortness of breath with exertion Gastrointestinal Gastrointestinal: Reports abdominal pain and nausea; Denies constipation, diarrhea or vomiting Genitourinary Genitourinary: Denies dysuria Musculoskeletal Musculoskeletal: Denies back pain Integumentary Integumentary: Denies jaundice Neurologic Neurologic: Denies abnormal gait Psychiatric Psychiatric: Denies anxiety Vital Signs Vital Signs Vital Signs: 12/13/24 17:40 12/13/24 17:46 12/13/24 18:21 Temperature 98.3 F 98.3 F Temperature Source Oral Oral Pulse Rate 137 H 145 H 136 H Respiratory Rate 18 16 Blood Pressure 117/103 H 126/111 H Blood Pressure Mean 107 116 Pulse Ox 97 Oxygen Delivery Method Room Air Oxygen Flow Rate (L/min) 12/13/24 18:35 12/13/24 18:41 12/13/24 18:42 Temperature Temperature Source Pulse Rate 149 H 120 H Respiratory Rate 27 H Blood Pressure 114/89 H 114/89 H Blood Pressure Mean 97 97 Pulse Ox 88 95 Oxygen Delivery Method Room Air Nasal Cannula Oxygen Flow Rate (L/min) 2 12/13/24 18:43 12/13/24 18:59 12/13/24 19:29 Temperature 98.3 F 98.3 F Temperature Source Oral Oral Pulse Rate 117 H 134 H 142 H Respiratory Rate 27 H 17 22 H Blood Pressure 114/89 H 106/82 H 108/77 Blood Pressure Mean 97 90 87 Pulse Ox 95 98 97 Oxygen Delivery Method Nasal Cannula Room Air Oxygen Flow Rate (L/min) 2 2 12/13/24 20:00 12/13/24 20:06 Temperature 98.3 F Temperature Source Oral Pulse Rate 128 H 147 H Respiratory Rate 25 H 19 H Blood Pressure 109/86 H 109/86 H Blood Pressure Mean 93 93 Pulse Ox 97 Oxygen Delivery Method Room Air Oxygen Flow Rate (L/min) Physical Exam Const oriented x3 General Appearance: cooperative and well developed HEENT normocephalic and head/scalp atraumatic Eyes PERRL Neck no lymphadenopathy Lymph Lymphatic: no lymphadenopathy noted Resp normal respiratory effort, normal air movement and clear to auscultation bilaterally Cardio S1 normal heart sound and S2 normal heart sound Rate: tachycardic Rhythm: abnormal rhythm irregularly irregular GI Inspection: abdominal distention Palpation: tender LLQ Extremity normal capillary refill Skin General Skin Exam: turgor normal Neuro CN's II-XII intact bilaterally, no focal motor deficits and no sensory deficits noted Psych cooperative and affect normal Results Lab / Micro Data 12/13/24 17:47 12/13/24 17:47 Labs: Laboratory Results - last 24 hr 12/13/24 17:47: WBC 11.3 H, RBC 6.10, Hgb 15.1, Hct 50.0, MCV 82.0, MCH 24.8 L, MCHC 30.2 L, RDW Std Deviation 61.8 H, RDW Coeff of Sea 21.9 H, Plt Count 444, MPV 10.4, Immature Gran % (Auto) 0.500, Neut % (Auto) 74.8 H, Lymph % (Auto) 16.7 L, [place] % (Auto) 6.6, Eos % (Auto) 1.0, Baso % (Auto) 0.4,Absolute Neuts (auto) 8.5 H, Absolute Lymphs (auto) 1.89, Nucleated RBC % 0, Platelet Estimate SLT INC, Anisocytosis 2+, Sodium 140, Potassium 4.8, Chloride 101, Carbon Dioxide 24.4, Anion Gap 15, BUN 36 H, Creatinine 1.41 H, Est GFR (MDRD) Non-Af 53 L, BUN/Creatinine Ratio 25.2 H, Glucose 133 H, Calcium 10.4, Total Bilirubin 0.66, AST 30, ALT 29, Alkaline Phosphatase 61, Total Protein 7.5, Albumin 3.8, Globulin 3.7, Albumin/Globulin Ratio 1.0, Lipase 25 12/13/24 18:30: Lactic Acid 2.0 Imaging Radiology Impression Abdomen/Pelvis CTA 12/13/24 17:51 IMPRESSION: No evidence of abdominal aortic aneurysm or dissection. Acute sigmoid diverticulitis with an adjacent 4 cm abscess formation. Colonoscopy is recommended upon resolution to exclude malignancy. Prominent loop of proximal small bowel within the left abdomen with subtle wall thickening and adjacent stranding, this may represent reactive inflammation secondary to acute sigmoid diverticulitis versussuperimposed enteritis. Partial obstruction can not be completely excluded. Small fluid and fat containing umbilical hernia, similar in appearance to the prior study. Red Alert: Acute sigmoid diverticulitis with abscess formation. The critical information above was relayed directly by me by telephone to Oswaldo Frances on 12/13/2024 at 7:29 pm with readback verification. Reading Location: [facility] Assessment & Plan Assessment/Plan (1) Atrial fibrillation with RVR: (2) Abdominal pain: (3) Colonic diverticular abscess: (4) Diverticulitis: (5) Essential (primary) hypertension: PLAN: Plan 1 diverticulitis with abscess?admit patient to the intensive care unit-consult Dr. Harris for surgical management, continue IV Zosyn and Dilaudid 1 mg IV every 2 hours as needed pain, IV normal saline at a rate of 125 cc/h, repeat CBC, CMP and coag panel in the a.m. will maintain patient is n.p.o. except for oral medications for time being. Will add as needed Zofran for nausea 2. Atrial fibrillation with rapid ventricular response?patient has been on Tikosyn and was cardioverted last weekend at the [facility] in [place] but has only maintained sinus rhythm for 2days. Currently will targetrate control less than 120 bpm using Cardizem drip and consult cardiology for further cardiology management 3. Hypertension?we will continue home medications 4. History of sleep apnea patient will be on oxygen and may add CPAP if necessary 5. DVT prophylaxis?patient is heparinized Charges/Coding Visit Charges Inpatient E&M: 60337 Init Hosp L2 12/13/242025 Cosigner Signature (if applicable): CC: Dr. Zechariah Siddiqui MD; Dr. Zhang Hester MD~ Signed [facility]05-26-2025 [facility]05-26-2025 Radiology Diagnostic study note [facility] Imaging Services [address] [place] [address] CTA Abd/Pelvis W/WO Contrast MR#: [id number] Acct: [id number] Name: CONRAD OCONNELL Rep #: [id number] : 1955 M 69 From: Lolita Wang DO PCP: Dr. Zechariah Siddiqui MD Status: REG ER Study:CTA Abd/Pelvis W/WO Contrast Date of Ex am: 12/13/24 Exam# [id number] Ordering Dr: Oswaldo Frances DO PROCEDURE: CTA ABD/PELVIS W/WO CONTRAST 12/13/2024 REASON FOR EXAM: ABD PAIN TECHNIQUE: CTA imaging of the abdomen and pelvis with intravenous contrast. Multiplanar andmultisequence images were obtained. 3D post processing was performed CONTRAST: Isovue 370 VOLUME: 100 cc mL Not Provided Gauge IV One or more dose reduction techniques were used (e.g., Automated exposure control, adjustment of the mA and/or kV according to patient size, use of iterative reconstruction technique). RADIATION DOSE SUMMARY: CTDlvol: 72 mGy DLP: 1242 mGycm COMPARISON: CT of the abdomen and pelvis dated 08/20/2024 FINDINGS: Aorta: Mild mixed calcified and soft plaque identified. No abdominal aortic aneurysm. Iliac Arteries: Scattered atherosclerotic plaque. No aneurysm or significant stenosis. Celiac: Normal. SMA: Mild mixed calcified and soft plaque identified. ABHAY : Normal. Right Renal: Mild mixed calcified and soft plaque identified. Left Renal: Mild mixed calcified and soft plaque identified. Other Findings: The liver, gallbladder, spleen, pancreas, bilateral adrenal glands and bilateral kidneys are grossly unremarkable. Urinary bladder and prostate gland are grossly unremarkable. Evaluation of the bowel loops are limited due to lack of oral contrast. Stomachis unremarkable. There is focal wall thickening of the proximal small bowel within the left mid abdomen with subtle adjacent stranding. Sigmoid diverticulosis with focal wall thickening and adjacent stranding, consistent with acute sigmoid diverticulitis. There is a adjacent air-fluid collection measuring approximately 3.9 x 4 cm in size, concerning for an abscess. This is best appreciated on series 2, image number 124. There is a small fat and fluid containing umbilical hernia. There are multilevel degenerative changes at the spine. CT/CTA Abd/Pelvis W/WO Contrast IMPRESSION: No evidence of abdominal aortic aneurysm or dissection. Acute sigmoid diverticulitis with an adjacent 4 cm abscess formation. Colonoscopy is recommended upon resolution to exclude malignancy. Prominent loop of proximal small bowel within the left abdomen with subtle wall thickening and adjacent stranding, this may represent reactive inflammation secondary to acute sigmoid diverticulitis versussuperimposed enteritis. Partial obstruction can not be completely excluded. Small fluid and fat containing umbilical hernia, similar in appearance to the prior study. Red Alert: Acute sigmoid diverticulitis with abscess formation. The critical information above was relayed directly by me by telephone to Oswaldo Frances on 12/13/2024 at 7:29 pm with readback verification. Reading Location: [facility] CC: Dr. Zechariah Siddiqui MD; Dr. Oswaldo Frances, DO ~ Physician Anesthesiologist: Signed [facility]01-13-2023 NoteHNO ID: [id number] Author: Melyssa Magdaleno MD Service: ? Author Type: Physician Type: Progress Notes Filed: 08/03/2022 3:36 PM Note Text: Conrad Oconnell 1955 REFERRING PHYSICIAN: Melyssa Magdaleno MD CHIEF COMPLAINT: Follow Up (colonoscopy) HPI: The patient is a 67 year old male is s/p colonoscopy on 07/26/2022. He was noted to have an area of erythema of sigmoid colon. Pathology reveals - FINAL DIAGNOSIS A. Colon, cecal polyp, biopsy: -Tubular adenoma. B. Colon, sigmoid polyps (x4), biopsy: -Tubular adenoma. -Fragments of inflammatory type polyp. C. Colon, sigmoid, biopsy: -Colonic mucosa with no diagnostic abnormality. D. Colon, sigmoid mass, biopsy: -Fragments of colonic mucosa with granulation tissue and hyperplastic change, see comment. 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 He denies abdominal pain, he denies diarrhea. PAST MEDICAL HISTORY Diagnosis Date Anal or rectal pain Cellulitis and abscess of leg, except foot Emphysema/COPD (HCC) Hypertension IBD (inflammatory bowel disease) Sleep apnea PAST SURGICAL HISTORY Procedure Laterality Date COLONOSCOPY FLX DX W/COLLJ SPEC WHEN PFRMD 05/05/2015 Colonoscopy COLONOSCOPY FLX DX W/COLLJ SPEC WHEN PFRMD 06/08/2021 repeat in 1 year COLONOSCOPY SCREENING 07/26/2022 SINUS SURGERY HX 10/2020 SKIN BIOPSY HX Current Outpatient Medications Medication Sig TRELEGY ELLIPTA 100-62.5-25 mcg inhalation powder Inhale 1 Puff as instructed once daily. bisoprolol-hydroCHLOROthiazide (ZIAC) 10-6.25 mg per tablet Take 1 tablet by mouth once daily. Cholecalciferol, Vitamin D3, 50 mcg (2,000 unit) cap Take 50 capsules by mouth once daily. gabapentin (NEURONTIN) 600 mg tablet Take 600 mg by mouth once daily. PNV/iron/folic acid ( [id number] ORAL) Take 1 tablet by mouth once daily. CPAP daily at bedtime. sulfaSALAzine (AZULFIDINE) 500 mg tablet Take 1 tablet by mouth four times daily. Ascorbic Acid 100 mg tablet Take 2,000 mg by mouth once daily. MEDICATION, NON-DATABASE Take 1 tablet by mouth once daily. Pt states takes a BP med daily-unsure name FOLIC ACID/MULTIVIT-MIN/LUTEIN (CENTRUM SILVER ORAL) Take by mouth. aspirin 81 mg chewable tablet Take 81 mg by mouth once daily. ALLERGIES: Patient has no known allergies. REVIEW OF SYSTEMS: Denies fevers PHYSICAL EXAMINATION: General: The patient is 67 year old male, well nourished, well hydrated in no acute distress. The patient is oriented to time, place, and person. VITALS: Blood pressure 122/72, pulse 91, temperature 36.6 ?C (97.9 ?F), height 172.7 cm (5' 8), weight 113.4 kg (250 lb), SpO2 98 %. Body mass index is 38.01 kg/m?. Head: Normal cephalic, atraumatic Eyes: pupils are equally round, sclera are clear/anicteric Neck is supple with no tracheal deviation Respiratory: Normal respiratory excursion and pattern. Abdominal exam: benign Extremities: no clubbing, cyanosis or edema. Neuro: non focal Psych: normal mood Assessment IMPRESSION: segmental colitis in sigmoid colon only PLAN: I have discussed the above with the patient. Patient to follow up with Dr. Emery for his colitis. The patient acknowledges the above I have answered all questions to the patient?s satisfaction and the patient has no further questions. I have confirmed and edited as necessary, the PFSH and ROS obtained by others. . Diagnoses: (K52.9) Idiopathic colitis (primary encounter diagnosis) Return to Clinic: The patient will require follow up surveillance colonoscopy in 5 years. updated and recall letter generated. Medical Decision Making: Problems: Low: Stable chronic illness Medical Decision Making Level: 2 - Straightforward Melyssa Magdaleno, [facility]01-13-2023 History of Present illness Narrative* Melyssa Magdaleno MD - 08/02/2022 8:09 PM EST Conrad Oconnell 1955 REFERRING PHYSICIAN: Melyssa Magdaleno MD CHIEF COMPLAINT: Follow Up (colonoscopy) HPI: The patient is a 67 year old male is s/p colonoscopy on 07/26/2022. He was noted to have an area of erythema of sigmoid colon. Pathology reveals - FINAL DIAGNOSIS A. Colon, cecal polyp, biopsy: -Tubular adenoma. B. Colon, sigmoid polyps (x4), biopsy: -Tubular adenoma. -Fragments of inflammatory type polyp. C. Colon, sigmoid, biopsy: -Colonic mucosa with no diagnostic abnormality. D. Colon, sigmoid mass, biopsy: -Fragments of colonic mucosa with granulation tissue and hyperplastic change, see comment. 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 He denies abdominal pain, he denies diarrhea. PAST MEDICAL HISTORY Diagnosis Date Anal or rectal pain Cellulitis and abscess of leg, except foot Emphysema/COPD (HCC) Hypertension IBD (inflammatory bowel disease) Sleep apnea PAST SURGICAL HISTORY Procedure Laterality Date COLONOSCOPY FLX DX W/COLLJ SPEC WHEN PFRMD 05/05/2015 Colonoscopy COLONOSCOPY FLX DX W/COLLJ SPEC WHEN PFRMD 06/08/2021 repeat in 1 year COLONOSCOPY SCREENING 07/26/2022 SINUS SURGERY HX 10/2020 SKIN BIOPSY HX Current Outpatient Medications Medication Sig TRELEGY ELLIPTA 100-62.5-25 mcg inhalation powder Inhale 1 Puff as instructed once daily. bisoprolol-hydroCHLOROthiazide (ZIAC) 10-6.25 mg per tablet Take 1 tablet by mouth once daily. Cholecalciferol, Vitamin D3, 50 mcg (2,000 unit) cap Take 50 capsules by mouth once daily. gabapentin (NEURONTIN) 600 mg tablet Take 600 mg by mouth once daily. PNV/iron/folic acid ( [id number] ORAL) Take 1 tablet by mouth once daily. CPAP daily at bedtime. sulfaSALAzine (AZULFIDINE) 500 mg tablet Take 1 tablet by mouth four times daily. Ascorbic Acid 100 mg tablet Take 2,000 mg by mouth once daily. MEDICATION, NON-DATABASE Take 1 tablet by mouth once daily. Pt states takes a BP med daily-unsure name FOLIC ACID/MULTIVIT-MIN/LUTEIN (CENTRUM SILVER ORAL) Take by mouth. aspirin 81 mg chewable tablet Take 81 mg by mouth once daily. ALLERGIES: Patient has no known allergies. REVIEW OF SYSTEMS: Denies fevers PHYSICAL EXAMINATION: General: The patient is 67 year old male, well nourished, well hydrated in no acute distress. The patient is oriented to time, place, and person. VITALS: Blood pressure 122/72, pulse 91, temperature 36.6 C (97.9 F), height 172.7 cm (5' 8), weight 113.4 kg (250 lb), SpO2 98 %. Body mass index is 38.01 kg/m . Head: Normal cephalic, atraumatic Eyes: pupils are equally round, sclera are clear/anicteric Neck is supple with no tracheal deviation Respiratory: Normal respiratory excursion and pattern. Abdominal exam: benign Extremities: no clubbing, cyanosis or edema. Neuro: non focal Psych: normal mood Assessment IMPRESSION: segmental colitis in sigmoid colon only PLAN: I have discussed the above with the patient. Patient to follow up with Dr. Emery for his colitis. The patient acknowledges the above I have answered all questions to the patient s satisfaction and the patient has no further questions. I have confirmed and edited as necessary, the PFSH and ROS obtained by others. . Diagnoses: (K52.9) Idiopathic colitis (primary encounter diagnosis) Return to Clinic: The patient will require follow up surveillance colonoscopy in 5 years. HM updated and recall letter generated. Medical Decision Making: Problems: Low: Stable chronic illness Medical Decision Making Level: 2 - Straightforward Melyssa Magdaleno [facility] Note* Opal Pandey, SEKOU - 07/26/2022 10:28 AM EST No air passed in restroom either, return to [place] 2, sitting on edge of bed, given water to sip due to complaint of dry mouth. Denies pain at this time. * Opal Pandey RN - 07/26/2022 10:24 AM EST Ambulated without difficulty, no air was passed. Will try sitting on toilet for a few minutes. Still no pain or cramping reported. * Opal Pandey RN - 07/26/2022 10:20 AM EST Abdomen remains distended and firm to light palpation, patient denies pain but has not passed any air rectally yet. Patient alert and awake, will ambulate in hallway and stop and sit on toilet to seeif movement or change of positions aids in air removal. * Opal Pandey RN - 07/26/2022 10:03 AM EST Arrived in phase II via cart left lateral position eyes open alert to event and self, skin warm anddry, respirations regular and unlabored, abdomen is rounded, firm and distended, warm blanket was applied in procedure room, patient denies pain, reports abdomen feels tight only, encouraged to pass air rectally as able, continues to lay on left side. [facility] History and physical note * Melyssa Magdaleno MD - 07/26/2022 8:45 AM EST UPDATED PROCEDURAL SEDATION HISTORY AND PHYSICAL EXAMINATION SERVICE DATE: 07/26/2022 SERVICE TIME: 7:55 PHYSICAL EXAM MUST BE COMPLETED ON ADMISSION PROCEDURE: colonoscopy, possible biposies Procedure Indications: history of colon polyps, surveillance for ulcerative colitis The History and Physical (completed in the past 30 days) has been reviewed and the patient has beenexamined. The contents accurately reflect the patient's condition with the following additions or revisions since the H&P was completed. ASA Class: ASA Class:: Patient with mild systemic disease Examination indicates no changes. AIRWAY: Airway Visualization of Uvula: Yes Mouth opening greater than 2 fingerbreadths: Yes Neck Full Range of Motion: Yes LUNGS: Lungs clear to auscultation CARDIAC: Regular rhythm,Regular rate Provisional Diagnosis/Treatment Plan: colonoscopy, possible biopsies SEDATION GOAL: Moderate This H&P can be found in the Electronic Medical Record . SIGNATURE: Melyssa Magdaleno MD PATIENT NAME: Conrad Oconnell DATE: July 26, 2022 TIME: 7:58 AM Source Note - Melyssa Magdaleno MD - 07/26/2022 8:45 AM EST Images from the original note were not included. HISTORY AND PHYSICAL Conrad Martin Anish 1955 REFERRING PHYSICIAN: Melyssa Magdaleno MD CHIEF COMPLAINT: Consult (Colonoscopy ) HPI: The patient is a 67 year old male referred for endoscopy. Conrad notes history of ulcerative colitis, diagnosed around 2014. He is presently on sulfasalazine He has a colonoscopy last year, but he had a poor colon cleansing preparation. He was found to have multiple tubular adenomas. The patient denies blood in stools, denies abdominal pain, and denies changes in bowel habits. The patient states that his father had colon cancer, diagnosed around the age of 60. PAST MEDICAL HISTORY Diagnosis Date Anal or rectal pain Cellulitis and abscess of leg, except foot Emphysema/COPD (HCC) Hypertension IBD (inflammatory bowel disease) Sleep apnea PAST SURGICAL HISTORY Procedure Laterality Date COLONOSCOPY FLX DX W/COLLJ SPEC WHEN PFRMD 05/05/2015 Colonoscopy COLONOSCOPY FLX DX W/COLLJ SPEC WHEN PFRMD 06/08/2021 repeat in 1 year SINUS SURGERY HX 10/2020 SKIN BIOPSY HX Current Outpatient Medications Medication Sig TRELEGY ELLIPTA 100-62.5-25 mcg inhalation powder Inhale 1 Puff as instructed once daily. bisoprolol-hydroCHLOROthiazide (ZIAC) 10-6.25 mg per tablet Take 1 tablet by mouth once daily. Cholecalciferol, Vitamin D3, 50 mcg (2,000 unit) cap Take 50 capsules by mouth once daily. gabapentin (NEURONTIN) 600 mg tablet Take 600 mg by mouth once daily. PNV/iron/folic acid ( [id number] ORAL) Take 1 tablet by mouth once daily. CPAP daily at bedtime. sulfaSALAzine (AZULFIDINE) 500 mg tablet Take 1 tablet by mouth four times daily. Ascorbic Acid 100 mg tablet Take 2,000 mg by mouth once daily. MEDICATION, NON-DATABASE Take 1 tablet by mouth once daily. Pt states takes a BP med daily-unsure name FOLIC ACID/MULTIVIT-MIN/LUTEIN (CENTRUM SILVER ORAL) Take by mouth. aspirin 81 mg chewable tablet Take 81 mg by mouth once daily. ALLERGIES: Patient has no known allergies. PERSONAL HISTORY: Social History Tobacco Use Smoking status: Former Packs/day: 1.00 Years: 35.00 Pack years: 35.00 Types: Cigarettes Smokeless tobacco: Never Vaping Use Vaping Use: Never used Substance Use Topics Alcohol use: Yes Comment: occasionally FAMILY HISTORY Problem Relation Age of Onset other (lung cancer) Mother Colon Cancer Father The review of systems data was entered by the nurse and reviewed by nj Nursing Notes: Sandra Mera LPN 05/24/2022 3:18 PM Signed REVIEW OF SYSTEMS: General: The patient denies fatigue, denies weight loss, denies weight gain, denies feeling hot, and denies feelings of cold. Eyes: The patient denies glaucoma, denies eye injury/surgery, wears glasses or contacts. Ear/Nose/Throat: The patient notes allergies, denies hayfever, denies ear infections, and denies bloody noses. Cardiovascular: The patient denies chest pain, denies heart disease, denies high blood pressure,denies cardiac stent, denies prior heart attack, denies irregular heart beat, denies high cholesterol, denies poor circulation, denies heart failure, other cardiac issues, denies claudication, denies cold feet, denies peripheral arterial stent. Respiratory: The patient denies tuberculosis, denies pneumonia, denies frequent cough, denies pulmonary embolism, denies shortness of breath, and denies coughing up blood, notes other lung problems. Gastrointestinal: The patient denies difficulty swallowing, denies acid reflux, denies ulcers, denies vomiting, denies jaundice/hepatitis, denies gallbladder problems, denies black or tarry stools, denies hemorrhoids, denies bleeding from rectum, denies diverticulitis, denies constipation, denies diarrhea, denies loss of stool control, and denies hernias. Kidney/Bladder: The patient denies kidney stones, denies urine infections, and denies bloody urine. Skin: The patient denies a history of skin cancer, denies bleeding/changing moles, and denies a history of skin rash. Neurologic: The patient denies a history of epilepsy/convulsions, denies headaches, denies head/spinal injuries, and denies stroke/TIA. Psychiatric: The patient denies psychiatric medications, denies depression, and denies voices, denies substance abuse. Endocrine: The patient denies thyroid disorders, denies diabetes, and denies hormonal problems. Hematologic: The patient denies a history of bruising, denies bleeding, and denies anemia, denies blood clots. Infections: The patient denies a history of measles and mumps, denies rheumatic fever, and denies sexually transmitted diseases. Musculoskeletal: The patient denies back pain/injury, denies back problems, denies sciatica, deniesknee/foot trouble, denies arthritis, or denies gout. When was patient's last Mammogram screening? N/A Last Colonoscopy: 2020 Sandra Mera LPN PHYSICAL EXAMINATION: General: The patient is 67 year old male, well nourished, well hydrated in no acute distress. The patient is oriented to time, place, and person. VITALS: Blood pressure 138/78, pulse 110, temperature 36.4 C (97.5 F), height 175.3 cm (5' 9), weight 113.9 kg (251 lb), SpO2 94 %. Body mass index is 37.07 kg/m . Head: Normal cephalic, atraumatic Eyes: pupils are equally round, sclera are clear/anicteric, wearing glasses Neck is supple with no tracheal deviation Respiratory: Normal respiratory excursion and pattern. Abdominal exam: benign Extremities: no clubbing, cyanosis or edema. Neuro: non focal Psych: normal mood Assessment IMPRESSION: ulcerative colitis dx'd in 2014, family history of colon cancer - father, history of tubular adenomas PLAN: I have discussed the above with the patient. I have offered colonoscopy possible biopsies I have explained the procedure to the patient. I have counseled the patient as to the risks of the procedure, including but not limited to: infection, bleeding, injury to any intrabdominal organs such as liver/spleen, perforation of the GI tract,inability to complete the procedure, complications of anesthesia, etc. - the patient understands. The patient was offered a surgery/procedure at a [facility] facility. The provider and patient have discussed in detail the risk of exposure to and/or potential harm posed by the COVID-19 viruswith having a surgery/procedure at this time versus the risk of delaying the surgery/procedure. It is not possible to know either the risk of delaying the surgery or procedure or chance of getting aninfection with perfect accuracy, but a joint decision was made between the patient and the providerto proceed at this time with the scheduled surgery/procedure. The patient wishes to proceed. I have answered all questions to the patient s satisfaction and the patient has no further questions. Diagnoses: (Z86.010) History of colonic polyps (K51.00) Ulcerative pancolitis without complication (HCC) (Z80.0) Family history of colon cancer in father * Melyssa Magdaleno MD - 07/26/2022 8:45 AM EST Images from the original note were not included. HISTORY AND PHYSICAL Conrad Oconnell 1955 REFERRING PHYSICIAN: Melyssa Magdaleno MD CHIEF COMPLAINT: Consult (Colonoscopy ) HPI: The patient is a 67 year old male referred for endoscopy. Conrad notes history of ulcerative colitis, diagnosed around 2014. He is presently on sulfasalazine He has a colonoscopy last year, but he had a poor colon cleansing preparation. He was found to have multiple tubular adenomas. The patient denies blood in stools, denies abdominal pain, and denies changes in bowel habits. The patient states that his father had colon cancer, diagnosed around the age of 60. PAST MEDICAL HISTORY Diagnosis Date Anal or rectal pain Cellulitis and abscess of leg, except foot Emphysema/COPD (HCC) Hypertension IBD (inflammatory bowel disease) Sleep apnea PAST SURGICAL HISTORY Procedure Laterality Date COLONOSCOPY FLX DX W/COLLJ SPEC WHEN PFRMD 05/05/2015 Colonoscopy COLONOSCOPY FLX DX W/COLLJ SPEC WHEN PFRMD 06/08/2021 repeat in 1 year SINUS SURGERY HX 10/2020 SKIN BIOPSY HX Current Outpatient Medications Medication Sig TRELEGY ELLIPTA 100-62.5-25 mcg inhalation powder Inhale 1 Puff as instructed once daily. bisoprolol-hydroCHLOROthiazide (ZIAC) 10-6.25 mg per tablet Take 1 tablet by mouth once daily. Cholecalciferol, Vitamin D3, 50 mcg (2,000 unit) cap Take 50 capsules by mouth once daily. gabapentin (NEURONTIN) 600 mg tablet Take 600 mg by mouth once daily. PNV/iron/folic acid ( [id number]-JL ORAL) Take 1 tablet by mouth once daily. CPAP daily at bedtime. sulfaSALAzine (AZULFIDINE) 500 mg tablet Take 1 tablet by mouth four times daily. Ascorbic Acid 100 mg tablet Take 2,000 mg by mouth once daily. MEDICATION, NON-DATABASE Take 1 tablet by mouth once daily. Pt states takes a BP med daily-unsure name FOLIC ACID/MULTIVIT-MIN/LUTEIN (CENTRUM SILVER ORAL) Take by mouth. aspirin 81 mg chewable tablet Take 81 mg by mouth once daily. ALLERGIES: Patient has no known allergies. PERSONAL HISTORY: Social History Tobacco Use Smoking status: Former Packs/day: 1.00 Years: 35.00 Pack years: 35.00 Types: Cigarettes Smokeless tobacco: Never Vaping Use Vaping Use: Never used Substance Use Topics Alcohol use: Yes Comment: occasionally FAMILY HISTORY Problem Relation Age of Onset other (lung cancer) Mother Colon Cancer Father The review of systems data was entered by the nurse and reviewed by nj Nursing Notes: Sandra Mera LPN 05/24/2022 3:18 PM Signed REVIEW OF SYSTEMS: General: The patient denies fatigue, denies weight loss, denies weight gain, denies feeling hot, and denies feelings of cold. Eyes: The patient denies glaucoma, denies eye injury/surgery, wears glasses or contacts. Ear/Nose/Throat: The patient notes allergies, denies hayfever, denies ear infections, and denies bloody noses. Cardiovascular: The patient denies chest pain, denies heart disease, denies high blood pressure,denies cardiac stent, denies prior heart attack, denies irregular heart beat, denies high cholesterol, denies poor circulation, denies heart failure, other cardiac issues, denies claudication, denies cold feet, denies peripheral arterial stent. Respiratory: The patient denies tuberculosis, denies pneumonia, denies frequent cough, denies pulmonary embolism, denies shortness of breath, and denies coughing up blood, notes other lung problems. Gastrointestinal: The patient denies difficulty swallowing, denies acid reflux, denies ulcers, denies vomiting, denies jaundice/hepatitis, denies gallbladder problems, denies black or tarry stools, denies hemorrhoids, denies bleeding from rectum, denies diverticulitis, denies constipation, denies diarrhea, denies loss of stool control, and denies hernias. Kidney/Bladder: The patient denies kidney stones, denies urine infections, and denies bloody urine. Skin: The patient denies a history of skin cancer, denies bleeding/changing moles, and denies a history of skin rash. Neurologic: The patient denies a history of epilepsy/convulsions, denies headaches, denies head/spinal injuries, and denies stroke/TIA. Psychiatric: The patient denies psychiatric medications, denies depression, and denies voices, denies substance abuse. Endocrine: The patient denies thyroid disorders, denies diabetes, and denies hormonal problems. Hematologic: The patient denies a history of bruising, denies bleeding, and denies anemia, denies blood clots. Infections: The patient denies a history of measles and mumps, denies rheumatic fever, and denies sexually transmitted diseases. Musculoskeletal: The patient denies back pain/injury, denies back problems, denies sciatica, deniesknee/foot trouble, denies arthritis, or denies gout. When was patient's last Mammogram screening? N/A Last Colonoscopy: 2020 Sandra Mera LPN PHYSICAL EXAMINATION: General: The patient is 67 year old male, well nourished, well hydrated in no acute distress. The patient is oriented to time, place, and person. VITALS: Blood pressure 138/78, pulse 110, temperature 36.4 C (97.5 F), height 175.3 cm (5' 9), weight 113.9 kg (251 lb), SpO2 94 %. Body mass index is 37.07 kg/m . Head: Normal cephalic, atraumatic Eyes: pupils are equally round, sclera are clear/anicteric, wearing glasses Neck is supple with no tracheal deviation Respiratory: Normal respiratory excursion and pattern. Abdominal exam: benign Extremities: no clubbing, cyanosis or edema. Neuro: non focal Psych: normal mood Assessment IMPRESSION: ulcerative colitis dx'd in 2014, family history of colon cancer - father, history of tubular adenomas PLAN: I have discussed the above with the patient. I have offered colonoscopy possible biopsies I have explained the procedure to the patient. I have counseled the patient as to the risks of the procedure, including but not limited to: infection, bleeding, injury to any intrabdominal organs such as liver/spleen, perforation of the GI tract,inability to complete the procedure, complications of anesthesia, etc. - the patient understands. The patient was offered a surgery/procedure at a [facility] facility. The provider and patient have discussed in detail the risk of exposure to and/or potential harm posed by the COVID-19 viruswith having a surgery/procedure at this time versus the risk of delaying the surgery/procedure. It is not possible to know either the risk of delaying the surgery or procedure or chance of getting aninfection with perfect accuracy, but a joint decision was made between the patient and the providerto proceed at this time with the scheduled surgery/procedure. The patient wishes to proceed. I have answered all questions to the patient s satisfaction and the patient has no further questions. Diagnoses: (Z86.010) History of colonic polyps (K51.00) Ulcerative pancolitis without complication (HCC) (Z80.0) Family history of colon cancer in father documented in [facility]22 NoteHNO ID: [id number] Author: Melyssa Magdaleno MD Service: ? Author Type: Physician Type: Progress Notes Filed: 05/25/2022 7:13 PM Note Text: HISTORY AND PHYSICAL Conrad Oconnell 1955 REFERRING PHYSICIAN: Melyssa Magdaleno MD CHIEF COMPLAINT: Consult (Colonoscopy ) HPI: The patient is a 67 year old male referred for endoscopy. Conrad notes history of ulcerative colitis, diagnosed around 2014. He is presently on sulfasalazine He has a colonoscopy last year, but he had a poor colon cleansing preparation. He was found to have multiple tubular adenomas. The patient denies blood in stools, denies abdominal pain, and denies changes in bowel habits. The patient states that his father had colon cancer, diagnosed around the age of 60. PAST MEDICAL HISTORY Diagnosis Date Anal or rectal pain Cellulitis and abscess of leg, except foot Emphysema/COPD (HCC) Hypertension IBD (inflammatory bowel disease) Sleep apnea PAST SURGICAL HISTORY Procedure Laterality Date COLONOSCOPY FLX DX W/COLLJ SPEC WHEN PFRMD 05/05/2015 Colonoscopy COLONOSCOPY FLX DX W/COLLJ SPEC WHEN PFRMD 06/08/2021 repeat in 1 year SINUS SURGERY HX 10/2020 SKIN BIOPSY HX Current Outpatient Medications Medication Sig TRELEGY ELLIPTA 100-62.5-25 mcg inhalation powder Inhale 1 Puff as instructed once daily. bisoprolol-hydroCHLOROthiazide (ZIAC) 10-6.25 mg per tablet Take 1 tablet by mouth once daily. Cholecalciferol, Vitamin D3, 50 mcg (2,000 unit) cap Take 50 capsules by mouth once daily. gabapentin (NEURONTIN) 600 mg tablet Take 600 mg by mouth once daily. PNV/iron/folic acid ( [id number] ORAL) Take 1 tablet by mouth once daily. CPAP daily at bedtime. sulfaSALAzine (AZULFIDINE) 500 mg tablet Take 1 tablet by mouth four times daily. Ascorbic Acid 100 mg tablet Take 2,000 mg by mouth once daily. MEDICATION, NON-DATABASE Take 1 tablet by mouth once daily. Pt states takes a BP med daily-unsure name FOLIC ACID/MULTIVIT-MIN/LUTEIN (CENTRUM SILVER ORAL) Take by mouth. aspirin 81 mg chewable tablet Take 81 mg by mouth once daily. ALLERGIES: Patient has no known allergies. PERSONAL HISTORY: Social History Tobacco Use Smoking status: Former Packs/day: 1.00 Years: 35.00 Pack years: 35.00 Types: Cigarettes Smokeless tobacco: Never Vaping Use Vaping Use: Never used Substance Use Topics Alcohol use: Yes Comment: occasionally FAMILY HISTORY Problem Relation Age of Onset other (lung cancer) Mother Colon Cancer Father The review of systems data was entered by the nurse and reviewed by me Nursing Notes: Sandra Mera LPN 05/24/2022 3:18 PM Signed REVIEW OF SYSTEMS: General: The patient denies fatigue, denies weight loss, denies weight gain, denies feeling hot, and denies feelings of cold. Eyes: The patient denies glaucoma, denies eye injury/surgery, wears glasses or contacts. Ear/Nose/Throat: The patient notes allergies, denies hayfever, denies ear infections, and denies bloody noses. Cardiovascular: The patient denies chest pain, denies heart disease, denies high blood pressure,denies cardiac stent, denies prior heart attack, denies irregular heart beat, denies high cholesterol, denies poor circulation, denies heart failure, other cardiac issues, denies claudication, denies cold feet, denies peripheral arterial stent. Respiratory: The patient denies tuberculosis, denies pneumonia, denies frequent cough, denies pulmonary embolism, denies shortness of breath, and denies coughing up blood, notes other lung problems. Gastrointestinal: The patient denies difficulty swallowing, denies acid reflux, denies ulcers, denies vomiting, denies jaundice/hepatitis, denies gallbladder problems, denies black or tarry stools, denies hemorrhoids, denies bleeding from rectum, denies diverticulitis, denies constipation, denies diarrhea, denies loss of stool control, and denies hernias. Kidney/Bladder: The patient denies kidney stones, denies urine infections, and denies bloody urine. Skin: The patient denies a history of skin cancer, denies bleeding/changing moles, and denies a history of skin rash. Neurologic: The patient denies a history of epilepsy/convulsions, denies headaches, denies head/spinal injuries, and denies stroke/TIA. Psychiatric: The patient denies psychiatric medications, denies depression, and denies voices, denies substance abuse. Endocrine: The patient denies thyroid disorders, denies diabetes, and denies hormonal problems. Hematologic: The patient denies a history of bruising, denies bleeding, and denies anemia, denies blood clots. Infections: The patient denies a history of measles and mumps, denies rheumatic fever, and denies sexually transmitted diseases. Musculoskeletal: The patient denies back pain/injury, denies back problems, denies sciatica, denies knee/foot trouble, denies arthritis, or denies gout. When was patient's last (more content not included)...[facility] 05-25-2022 History of Present illness Narrative* Melyssa Magdaleno MD - 05/25/2022 7:04 PM EDT HISTORY AND PHYSICAL Conrad Oconnell 1955 REFERRING PHYSICIAN: Melyssa Magdaleno MD CHIEF COMPLAINT: Consult (Colonoscopy ) HPI: The patient is a 67 year old male referred for endoscopy. Conrad notes history of ulcerative colitis, diagnosed around 2014. He is presently on sulfasalazine He has a colonoscopy last year, but he had a poor colon cleansing preparation. He was found to have multiple tubular adenomas. The patient denies blood in stools, denies abdominal pain, and denies changes in bowel habits. The patient states that his father had colon cancer, diagnosed around the age of 60. PAST MEDICAL HISTORY Diagnosis Date Anal or rectal pain Cellulitis and abscess of leg, except foot Emphysema/COPD (HCC) Hypertension IBD (inflammatory bowel disease) Sleep apnea PAST SURGICAL HISTORY Procedure Laterality Date COLONOSCOPY FLX DX W/COLLJ SPEC WHEN PFRMD 05/05/2015 Colonoscopy COLONOSCOPY FLX DX W/COLLJ SPEC WHEN PFRMD 06/08/2021 repeat in 1 year SINUS SURGERY HX 10/2020 SKIN BIOPSY HX Current Outpatient Medications Medication Sig TRELEGY ELLIPTA 100-62.5-25 mcg inhalation powder Inhale 1 Puff as instructed once daily. bisoprolol-hydroCHLOROthiazide (ZIAC) 10-6.25 mg per tablet Take 1 tablet by mouth once daily. Cholecalciferol, Vitamin D3, 50 mcg (2,000 unit) cap Take 50 capsules by mouth once daily. gabapentin (NEURONTIN) 600 mg tablet Take 600 mg by mouth once daily. PNV/iron/folic acid ( [id number]-DCRD-CB ORAL) Take 1 tablet by mouth once daily. CPAP daily at bedtime. sulfaSALAzine (AZULFIDINE) 500 mg tablet Take 1 tablet by mouth four times daily. Ascorbic Acid 100 mg tablet Take 2,000 mg by mouth once daily. MEDICATION, NON-DATABASE Take 1 tablet by mouth once daily. Pt states takes a BP med daily-unsure name FOLIC ACID/MULTIVIT-MIN/LUTEIN (CENTRUM SILVER ORAL) Take by mouth. aspirin 81 mg chewable tablet Take 81 mg by mouth once daily. ALLERGIES: Patient has no known allergies. PERSONAL HISTORY: Social History Tobacco Use Smoking status: Former Packs/day: 1.00 Years: 35.00 Pack years: 35.00 Types: Cigarettes Smokeless tobacco: Never Vaping Use Vaping Use: Never used Substance Use Topics Alcohol use: Yes Comment: occasionally FAMILY HISTORY Problem Relation Age of Onset other (lung cancer) Mother Colon Cancer Father The review of systems data was entered by the nurse and reviewed by me Nursing Notes: Sandra Mera LPN 05/24/2022 3:18 PM Signed REVIEW OF SYSTEMS: General: The patient denies fatigue, denies weight loss, denies weight gain, denies feeling hot, and denies feelings of cold. Eyes: The patient denies glaucoma, denies eye injury/surgery, wears glasses or contacts. Ear/Nose/Throat: The patient notes allergies, denies hayfever, denies ear infections, and denies bloody noses. Cardiovascular: The patient denies chest pain, denies heart disease, denies high blood pressure,denies cardiac stent, denies prior heart attack, denies irregular heart beat, denies high cholesterol, denies poor circulation, denies heart failure, other cardiac issues, denies claudication, denies cold feet, denies peripheral arterial stent. Respiratory: The patient denies tuberculosis, denies pneumonia, denies frequent cough, denies pulmonary embolism, denies shortness of breath, and denies coughing up blood, notes other lung problems. Gastrointestinal: The patient denies difficulty swallowing, denies acid reflux, denies ulcers, denies vomiting, denies jaundice/hepatitis, denies gallbladder problems, denies black or tarry stools, denies hemorrhoids, denies bleeding from rectum, denies diverticulitis, denies constipation, denies diarrhea, denies loss of stool control, and denies hernias. Kidney/Bladder: The patient denies kidney stones, denies urine infections, and denies bloody urine. Skin: The patient denies a history of skin cancer, denies bleeding/changing moles, and denies a history of skin rash. Neurologic: The patient denies a history of epilepsy/convulsions, denies headaches, denies head/spinal injuries, and denies stroke/TIA. Psychiatric: The patient denies psychiatric medications, denies depression, and denies voices, denies substance abuse. Endocrine: The patient denies thyroid disorders, denies diabetes, and denies hormonal problems. Hematologic: The patient denies a history of bruising, denies bleeding, and denies anemia, denies blood clots. Infections: The patient denies a history of measles and mumps, denies rheumatic fever, and denies sexually transmitted diseases. Musculoskeletal: The patient denies back pain/injury, denies back problems, denies sciatica, deniesknee/foot trouble, denies arthritis, or denies gout. When was patient's last Mammogram screening? N/A Last Colonoscopy: 2020 Sandra Mera LPN PHYSICAL EXAMINATION: General: The patient is 67 year old male, well nourished, well hydrated in no acute distress. The patient is oriented to time, place, and person. VITALS: Blood pressure 138/78, pulse 110, temperature 36.4 C (97.5 F), height 175.3 cm (5' 9), weight 113.9 kg (251 lb), SpO2 94 %. Body mass index is 37.07 kg/m . Head: Normal cephalic, atraumatic Eyes: pupils are equally round, sclera are clear/anicteric, wearing glasses Neck is supple with no tracheal deviation Respiratory: Normal respiratory excursion and pattern. Abdominal exam: benign Extremities: no clubbing, cyanosis or edema. Neuro: non focal Psych: normal mood Assessment IMPRESSION: ulcerative colitis dx'd in 2014, family history of colon cancer - father, history of tubular adenomas PLAN: I have discussed the above with the patient. I have offered colonoscopy possible biopsies I have explained the procedure to the patient. I have counseled the patient as to the risks of the procedure, including but not limited to: infection, bleeding, injury to any intrabdominal organs such as liver/spleen, perforation of the GI tract,inability to complete the procedure, complications of anesthesia, etc. - the patient understands. The patient was offered a surgery/procedure at a [facility]. The provider and patient have discussed in detail the risk of exposure to and/or potential harm posed by the COVID-19 viruswith having a surgery/procedure at this time versus the risk of delaying the surgery/procedure. It is not possible to know either the risk of delaying the surgery or procedure or chance of getting aninfection with perfect accuracy, but a joint decision was made between the patient and the providerto proceed at this time with the scheduled surgery/procedure. The patient wishes to proceed. I have answered all questions to the patient s satisfaction and the patient has no further questions. Diagnoses: (Z86.010) History of colonic polyps (K51.00) Ulcerative pancolitis without complication (HCC) (Z80.0) Family history of colon cancer in father I have confirmed and edited as necessary, the PFSH and ROS obtained by others. Return to Clinic: The patient will be scheduled at [facility]. I spent a total of 21 minutes on the date of the service which included preparing to see the patient with review of any pertinent laboratory studies/radiological imaging/medical records from other medical facilities such as [facility], [id number] patient care, obtaining oral medical history from the patient in this encounter, performing a medically appropriate examination, counseling and educating the patient/family/caregiver, and ordering and/or scheduling of medications/tests/procedures, and completing appropriate medical documentation. Melyssa Magdaleno MD documented in this encounter[facility]11-04-2022 Instructions* Patient Instructions* Melyssa Magdaleno MD - 05/24/2022 3:31 PM EDT Images from the original note were not included. Bowel Preparation Instructions for: Golytely, Nulytely, Trilyte or Colyte (polyethylene glycol 3350and electrolytes) IF YOU DO NOT FOLLOW THESE DIRECTIONS, YOUR COLONOSCOPY WILL BE CANCELLED. Ngo Instructions: Your bowel must be empty so that your doctor can clearly view your colon. Follow all of the instructions in this handout EXACTLY as they are written. Do NOT eat any solid food the ENTIRE day before your colonoscopy. Drink only clear liquids. Buy your bowel preparation at least 5 days before your colonoscopy. TRANSPORTATION on the Day of Your Exam A responsible person MUST be present with you at Check In prior to your colonoscopy and REMAIN in the endoscopy area until you are discharged. You are NOT ALLOWED to drive, take a taxi or bus, or leave the Endoscopy Center ALONE. If you do not have a responsible cement mixer driver (family member or friend) with you to take you home, your exam cannot be done with sedation and will be cancelled. Please bring a list of all of your current medications, including any Over-the Counter medications with you. Medications If you take insulin, diabetic medications or blood thinners such as Coumadin (warfarin), Plavix (clopidogrel), Ticlid (ticlopidine hydrochloride), Agrylin (anagrelide), Xarelto (Rivaroxaban), Pradaxa(Dabigatran), Eliquis (Apixaban), and Effient (Prasugrel). You MUST call the doctors who orders those medicines for instructions on altering the dosage before your colonoscopy. All other medications should be taken the day of the exam with a sip of water including ASPIRIN. Five (5) Days Before Your Colonoscopy Do NOT take medicines that stop diarrhea - such as Imodium, Kaopectate, or Pepto Bismol. Do NOT take fiber supplements - such as Metamucil, Citrucel, or Perdiem. Do NOT take products that contain iron - such as multi-vitamins (the label lists what is in the products). Do NOT take Vitamin E. Buy the prescription bowel preparation solution at your local pharmacy or drugstore pharmacy. 06/2019 Bowel Preparation Instructions for: Golytely, Nulytely, Trilyte or Colyte (polyethylene glycol 3350and electrolytes) Three (3) Days Before Your Colonoscopy Do NOT eat high-fiber foods - such as popcorn, beans, seeds (flax, sunflower, quinoa), multigrain bread, nuts, salad/vegetables, or fresh and dried fruit. One (1) Day Before Your Colonoscopy Only drink clear liquids the ENTIRE DAY before your colonoscopy. Do NOT eat any solid foods. Drink at least 8 ounces of clear liquids every hour after waking up. The clear liquids you can drink include: Clear Liquid (NO RED LIQUIDS) DO NOT DRINK Gatorade, Pedialyte or Powerade Clear broth or bouillon Coffee or tea (no milk or non-dairy creamer) Carbonated and non-carbonated soft drinks Jaguar-Aid or other fruit flavored drinks Strained fruit juices (no pulp) Jell-O, popsicles, hard candy Water Alcohol Milk or non-dairy creamers Noodles or vegetables in soup Juice with pulp Liquid you cannot see through Do not use tobacco/vaping products The bowel preparation solution will be consumed in two parts. Mix the solution the evening before your colonoscopy and refrigerate before drinking. You may add the flavor pack that came with the bowel preparation. Do NOT add ice, sugar or any other flavorings to the solution. Part 1 At 6:00 PM - Evening before your colonoscopy Drink an 8-oz glass of bowel preparation every 10 minutes for a total of 8 glasses. You may continue to drink clear liquids until midnight. Part 2 On the day of your colonoscopy you may drink clear liquids up to (three) 3 hours before your procedure. 4 1/2 hours before your colonoscopy Drink an 8-oz glass of bowel preparation every 10 minutes for a total of 8 glasses. Fifteen (15) minutes later, drink an 8-oz glass of clear liquids every 15 minutes for a total of 2 glasses. You may continue to drink clear liquids up to (three) 3 hours before your exam. 2 06/2019 [facility]* Sandra Mera LPN - 05/24/2022 3:17 PM EDT REVIEW OF SYSTEMS: General: The patient denies fatigue, denies weight loss, denies weight gain, denies feeling hot, and denies feelings of cold. Eyes: The patient denies glaucoma, denies eye injury/surgery, wears glasses or contacts. Ear/Nose/Throat: The patient notes allergies, denies hayfever, denies ear infections, and denies bloody noses. Cardiovascular: The patient denies chest pain, denies heart disease, denies high blood pressure,denies cardiac stent, denies prior heart attack, denies irregular heart beat, denies high cholesterol, denies poor circulation, denies heart failure, other cardiac issues, denies claudication, denies cold feet, denies peripheral arterial stent. Respiratory: The patient denies tuberculosis, denies pneumonia, denies frequent cough, denies pulmonary embolism, denies shortness of breath, and denies coughing up blood, notes other lung problems. Gastrointestinal: The patient denies difficulty swallowing, denies acid reflux, denies ulcers, denies vomiting, denies jaundice/hepatitis, denies gallbladder problems, denies black or tarry stools, denies hemorrhoids, denies bleeding from rectum, denies diverticulitis, denies constipation, denies diarrhea, denies loss of stool control, and denies hernias. Kidney/Bladder: The patient denies kidney stones, denies urine infections, and denies bloody urine. Skin: The patient denies a history of skin cancer, denies bleeding/changing moles, and denies a history of skin rash. Neurologic: The patient denies a history of epilepsy/convulsions, denies headaches, denies head/spinal injuries, and denies stroke/TIA. Psychiatric: The patient denies psychiatric medications, denies depression, and denies voices, denies substance abuse. Endocrine: The patient denies thyroid disorders, denies diabetes, and denies hormonal problems. Hematologic: The patient denies a history of bruising, denies bleeding, and denies anemia, denies blood clots. Infections: The patient denies a history of measles and mumps, denies rheumatic fever, and denies sexually transmitted diseases. Musculoskeletal: The patient denies back pain/injury, denies back problems, denies sciatica, deniesknee/foot trouble, denies arthritis, or denies gout. When was patient's last Mammogram screening? N/A Last Colonoscopy: 2020 Sandra Mera LPN [facility] noteNo assessment information availableWD[facility]lap [facility] Work Phone: evaluation note* Diagnosis History of colonic polyps Personal history of colonic polyps Ulcerative pancolitis without complication (HCC) Family history of colon cancer in father documented [facility] encounter [facility]* Diagnosis Idiopathic colitis- Primary Other and unspecified noninfectious gastroenteritis and colitis documented in [facility] note* Diagnosis Onset Date Resolution Status PAF (paroxysmal atrial fibrillation) acute Essential (primary) hypertension chronic Left bundle branch block (LBBB) [facility] Work Phone: Evaluation note* Diagnosis Screening for colon cancer- Primary Special screening for malignant neoplasms, colon History of colonic polyps Personal history of colonic polyps documented in this encounter [facility]* Diagnosis Onset Date Resolution Status Admit Date Abdominal pain acute December 13, 2024 8:27pm Atrial fibrillation with RVR acute December 13, 2024 8:27pm Chronic anticoagulation acute M ay 2024 8:27pm Colonic diverticular abscess acute December 13, 2024 8:27pm Diverticulitis acute December 13, 2024 8:27pm Essential (primary) hypertension chr onic December 13, 2024 8:27pm [facility] Work Phone: Evaluation note* Diagnosis High risk medication use- Primary Encounter for long-term (current) use of other medications Atrial fibrillation, unspecified type High risk medication use Encounter for long-term (current) use of other medications Acute on chronic systolic heart failure Paroxysmal A-fib Atrial fibrillation Longstanding persistent atrial fibrillation Essential hypertension Unspecified essential hypertension HFrEF (heart failure with reduced ejection fraction) COPD (chronic obstructive pulmonary disease) Chronic airway obstruction, not elsewhere classified Ulcerative colitis Ulcerative colitis, unspecified Therapeutic drug monitoring Encounter for therapeutic drug monitoring Colon perforation- Primary Perforation of intestine Colon perforation Perforation of intestine Atrial fibrillation, unspecified type Infection Unspecified infectious and parasitic diseases Diverticulitis Diverticulitis of colon (without mention of hemorrhage) Paroxysmal A-fib Atrial fibrillation Diverticulitis Diverticulitis of colon (without mention of hemorrhage) Infection Unspecified infectious and parasitic diseases [facility] Author Zhang Hester [facility] Note Date/Time December 13, 2024 8:26p [facility] Medical Records Department [address] [place] [address] History & Physical Exam 12/13/242016 MR#: [id number] Acct: [id number] Name: CONRAD OCONNELL Rep #:[id number] : 1955 69 From: Zhang Hester MD PCP: Dr. Zechariah Siddiqui MD Status:ADM IN Location: ICU ICU03-1 HPI - General General Date of Admission: 12/13/24 Date of Service: 12/13/24 Chief Complaint: abdominal pain HPI Narrative CONRAD OCONNELL, is a 69 M who presents to the emergency room with chief complaintof left lower quadrant abdominal pain. Patient states it was the worst pain he has experienced. Patient has a recent past medical history of new onset atrial fibrillation and was in sinus rhythm for 2 days after this but is now in atrial fibrillation with rapid ventricular response. Patient admits to having nausea but no vomiting and has had a normal bowel movement earlier today his last oral intake was a hamburger earlier in the day. He states the onset of abdominal pain began around 1:00 this afternoon and has gotten worse since and he came to the emergency room for further evaluation. CT scan reveals a diverticulitis with a [address] Ford was consulted by ER physician and plans to do a drain procedure. Patient will be admitted to the intensive care unit for diverticulitis with abscess and atrial fibrillation with RVR. Currently pain iscontrolled after receiving Dilaudid in the emergency room and is on Cardizem drip and heparin drip. [facility] Medical History PAF (paroxysmal atrial fibrillation) Emphysema/COPD Obstructive sleep apnea Depression Essential (primary) hypertension Obesity Benign neoplasm of maxillary sinus Left bundle branch block (LBBB) Home Medications ?Medication ?Instructions ?Recorded ?Last Taken ?Type ascorbic acid (vitamin C) 500 mg 2 gm PO DAILY 5 05/04/15 08:00 History tablet xdneablc-xnk-zfusp acid 0.4 1 ea PO DAILY 05/05/15 08:00 History mg-lycopene 300 mcg-lutein 250 mcg tablet cholecalciferol (vitamin D3) 50 2,000 unit PO DAILY Unknown History mcg (2,000 unit) capsule gabapentin 600 mg tablet 600 mg PO BIDCM 09/15/20 06:00 History sulfasalazine 500 mg tablet 1,000 mg PO BID IBS Unknown History fluticasone fur. 100 mcg-umeclid 1 ea inhalation DAILY 09/27/20 Unknown History 62.5 mcg-vilant 25 mcg inhalat.powder apixaban 5 mg tablet (Eliquis) mg PO 03/20/23 Unknown History hydrochlorothiazide 12.5 mg tablet mg PO 03/20/23 Unkn own History metoprolol tartrate 100 mg tablet mg PO 03/20/23 Unkno wn History Allergy/AdvReac Type Severity Reaction Status Date / Time shellfish derived Allergy Nausea/Vom/ Verified 12/13/24 17:40 Diarrhea Family History Father Hypertension Colon cancer Mother Breast cancer Social History Smoking Status: Former smoker quit date: 07/21/06 pack-years: 30 alcohol intake: current alcohol intake frequency: holidays/special occasions only ROS Constitutional Constitutional: Denies chills or fever(s) Eyes Eyes: Denies blurry vision ENT HEENT: Denies abnormal hearing Cardiovascular Cardiovascular: Denies chest pain Respiratory/Chest Respiratory/Chest: Reports shortness of breath with exertion Gastrointestinal Gastrointestinal: Reports abdominal pain and nausea; Denies constipation, diarrhea or vomiting Genitourinary Genitourinary: Denies dysuria Musculoskeletal Musculoskeletal: Denies back pain Integumentary Integumentary: Denies jaundice Neurologic Neurologic: Denies abnormal gait Psychiatric Psychiatric: Denies anxiety Vital Signs Vital Signs Vital Signs: 12/13/24 17:40 12/13/24 17:46 12/13/24 18:21 Temperature 98.3 F 98.3 F Temperature Source Oral Oral Pulse Rate 137 H 145 H 136 H Respiratory Rate 18 16 Blood Pressure 117/103 H 126/111 H Blood Pressure Mean 107 116 Pulse Ox 97 Oxygen Delivery Method Room Air Oxygen Flow Rate (L/min) 12/13/24 18:35 12/13/24 18:41 12/13/24 18:42 Temperature Temperature Source Pulse Rate 149 H 120 H Respiratory Rate 27 H Blood Pressure 114/89 H 114/89 H Blood Pressure Mean 97 97 Pulse Ox 88 95 Oxygen Delivery Method Room Air Nasal Cannula Oxygen Flow Rate (L/min) 2 12/13/24 18:43 12/13/24 18:59 12/13/24 19:29 Temperature 98.3 F 98.3 F Temperature Source Oral Oral Pulse Rate 117 H 134 H 142 H Respiratory Rate 27 H 17 22 H Blood Pressure 114/89 H 106/82 H 108/77 Blood Pressure Mean 97 90 87 Pulse Ox 95 98 97 Oxygen Delivery Method Nasal Cannula Room Air Oxygen Flow Rate (L/min) 2 2 12/13/24 20:00 12/13/24 20:06 Temperature 98.3 F Temperature Source Oral Pulse Rate 128 H 147 H Respiratory Rate 25 H 19 H Blood Pressure 109/86 H 109/86 H Blood Pressure Mean 93 93 Pulse Ox 97 Oxygen Delivery Method Room Air Oxygen Flow Rate (L/min) Physical Exam Const oriented x3 General Appearance: cooperative and well developed HEENT normocephalic and head/scalp atraumatic Eyes PERRL Neck no lymphadenopathy Lymph Lymphatic: no lymphadenopathy noted Resp normal respiratory effort, normal air movement and clear to auscultation bilaterally Cardio S1 normal heart sound and S2 normal heart sound Rate: tachycardic Rhythm: abnormal rhythm irregularly irregular GI Inspection: abdominal distention Palpation: tender LLQ Extremity normal capillary refill Skin General Skin Exam: turgor normal Neuro CN's II-XII intact bilaterally, no focal motor deficits and no sensory deficits noted Psych cooperative and affect normal Results Lab / Micro Data 12/13/24 17:47 12/13/24 17:47 Labs: Laboratory Results - last 24 hr 12/13/24 17:47: WBC 11.3 H, RBC 6.10, Hgb 15.1, Hct 50.0, MCV 82.0, MCH 24.8 L, MCHC 30.2 L, RDW Std Deviation 61.8 H, RDW Coeff of Sea 21.9 H, Plt Count 444, MPV 10.4, Immature Gran % (Auto) 0.500, Neut % (Auto) 74.8 H, Lymph % (Auto) 16.7 L, [place] % (Auto) 6.6, Eos % (Auto) 1.0, Baso % (Auto) 0.4, Absolute Neuts (auto) 8.5 H, Absolute Lymphs (auto) 1.89, Nucleated RBC % 0, Platelet Estimate SLT INC, Anisocytosis 2+, Sodium 140, Potassium 4.8, Chloride 101, Carbon Dioxide 24.4, Anion Gap 15, BUN 36 H, Creatinine 1.41 H, Est GFR (MDRD) Non-Af 53 L, BUN/Creatinine Ratio 25.2 H, Glucose 133 H, Calcium 10.4, Total Bilirubin 0.66, AST 30, ALT 29, Alkaline Phosphatase 61, Total Protein 7.5, Albumin 3.8, Globulin 3.7, Albumin/Globulin Ratio 1.0, Lipase 25 12/13/24 18:30: Lactic Acid 2.0 Imaging Radiology Impression Abdomen/Pelvis CTA 12/13/24 17:51 IMPRESSION: No evidence of abdominal aortic aneurysm or dissection. Acute sigmoid diverticulitis with an adjacent 4 cm abscess formation. Colonoscopy is recommended upon resolution to exclude malignancy. Prominent loop of proximal small bowel within the left abdomen with subtle wall thickening and adjacent stranding, this may represent reactive inflammation secondary to acute sigmoid diverticulitis versussuperimposed enteritis. Partial obstruction can not be completely excluded. Small fluid and fat containing umbilical hernia, similar in appearance to the prior study. Red Alert: Acute sigmoid diverticulitis with abscess formation. The critical information above was relayed directly by me by telephone to Oswaldo Frances on 12/13/2024 at 7:29 pm with readback verification. Reading [facility] Assessment & Plan Assessment/Plan (1) Atrial fibrillation with RVR: (2) Abdominal pain: (3) Colonic diverticular abscess: (4) Diverticulitis: (5) Essential (primary) hypertension: PLAN: Plan 1 diverticulitis with abscess?admit patient to the intensive care unit-consult Dr. Harris for surgical management, continue IV Zosyn and Dilaudid 1 mg IV every 2 hours as needed pain, IV normal saline at a rate of 125 cc/h, repeat CBC, CMP and coag panel in the a.m. will maintain patient is n.p.o. except for oral medications for time being. Will add as needed Zofran for nausea 2. Atrial fibrillation with rapid ventricular response?patient has been on Tikosyn and was cardioverted last weekend at the [facility] in [place] but has only maintained sinus rhythm for 2 days. Currently will targetrate control less than 120 bpm using Cardizem drip and consult cardiology for further cardiology management 3. Hypertension?we will continue home medications 4. History of sleep apnea patient will be on oxygen and may add CPAP if necessary 5. DVT prophylaxis?patient is heparinized Charges/Coding Visit Charges Inpatient E&M: 98780 Init Hosp L2 12/13/242025 <Electronically signed by Zhang Hester MD> Cosigner Signature (if applicable): CC: Dr. Zechariah Siddiqui MD; Dr. Zhang Hester MD~ Signed [facility] Work Phone: Reason for referral (narrative)* Outpatient Procedure (Routine) - Pending Review Specialty Diagnoses / Procedures Referred By Lorena patel Referred To Contact [facility] Diagnoses History of colonic polyps Procedures COLONOSCOPY SCREENING COLONOSCOPY FLX DX W/COLLJ SPEC WHEN Melyssa Gautam MD [address] [place] [address] [facility] [address] [place] [address] Referral ID Status Reason Start Date Expiration Date Visits Requested Visits Authorized [id number] Pending Review Auto-Generat ed Referral 05/24/2022 05/24/2023 1 1 [facility] for referral (narrative)* Outpatient Procedure (Routine) - Closed Specialty Diagnoses / Procedures Referred By Lorena patel Referred To Contact [facility] [place] Diagnoses History of colonic polyps Procedures COLONOSCOPY SCREENING COLONOSCOPY FLX DX W/COLLJ SPEC WHEN Melyssa Gautam MD [address] [place] [address] [facility] [address] [place] [address] Referral ID Status Reason Start Date Expiration Date V isits Requested Visits Authorized [id number] Closed Auto-Generate d Referral 07/26/2022 08/25/2022 1 1 [facility] for referral (narrative)No reason for referral information availableWDunlap [facility] Hospital Work Phone: Reason for visit Narrative* Outpatient Procedure (Routine) - Closed Specialty Diagnoses / Procedures Referred By Lorena patel Referred To Contact [facility] [place] Diagnoses History of colonic polyps Procedures COLONOSCOPY SCREENING COLONOSCOPY FLX DX W/COLLJ SPEC WHEN Melyssa Gautam MD [address] [place] [address] [facility] [address] [place] [address] Referral ID Status Reason Start Date Expiration Date V isits Requested Visits Authorized [id number] Closed Auto-Generate d Referral 07/26/2022 08/25/2022 1 1 [facility] for visit Narrative* Auth/Cert Specialty Diagnoses / Procedures Referred By Lorena patel Referred To Contact Diagnoses Diverticulitis Barbara Call MD [address] [place], [place] [address] [place] [address] Phone: tel: fax: [facility] [address] [place] [address] Referral ID Status Reason Start Date Expiration Date Visits Re quested Visits Authorized [id number] 1 1 [facility] Chief Complaint and Reason for Visit Chief Complaint HX NICOTINE DEPENDEN CE Chief Complaint Cough Chief Complaint Cough NEW ONSET A-FIB Reason for Visit PAF (paroxysmal atri al fibrillation) Essential (primary) hypertension Left bundle branch block (LBBB) Chief Complaint Cough NEW ONSET A-FIB Left bundle-branch block, unspecified Reason for Visit PAF (paroxysmal atri al fibrillation) Essential (primary) hypertension Left bundle branch block (LBBB) Chief Complaint Cough NEW ONSET A-FIB Left bundle-branch block, unspecified EORDER Reason for Visit PAF (paroxysmal atri al fibrillation) Essential (primary) hypertension Left bundle branch block (LBBB) Chief Complaint Admit Date Other ulcerative colitis without complic ations August 20, 2024 7:58am Chief Complaint Admit Date Other ulcerative colitis without complic ations August 20, 2024 7:58am DIVERTICULITIS WITH ABSCESS AFIB RVR December 13, 2024 8:17pm DIVERTICULITIS WITH ABSCESS AFIB RVR December 13, 2024 8:27pm Reason for Visit Admit Date Abdominal pain December 13, 2024 8:27p m Atrial fibrillation with RVR December 13, 2 025 8:27pm Chronic anticoagulation December 13, 2024 8 :27pm Colonic diverticular abscess December 13, 2 025 8:27pm Diverticulitis December 13, 2024 8:27p m Essential (primary) hypertension November 8:27pm Chief Complaint Admit Date DIVERTICULITIS WITH ABSCESS AFIB RVR December 13, 2024 8:17pm DIVERTICULITIS WITH ABSCESS AFIB RVR December 13, 2024 8:27pm DIVERTICULITIS WITH ABSCESS AFIB RVR December 14, 2024 11:33am DIVERTICULITIS WITH ABSCESS AFIB RVR December 14, 2024 11:43am DIVERTICULITIS WITH ABSCESS AFIB RVR December 15, 2024 7:20am DIVERTICULITIS WITH ABSCESS AFIB RVR December 15, 2024 11:15am DIVERTICULITIS WITH ABSCESS AFIB RVR December 15, 2024 11:54am DIVERTICULITIS WITH ABSCESS AFIB RVR December 15, 2024 5:18pm DIVERTICULITIS WITH ABSCESS AFIB RVR December 16, 2024 6:56am DIVERTICULITIS WITH ABSCESS AFIB RVR December 16, 2024 10:35am DIVERTICULITIS WITH ABSCESS AFIB RVR December 16, 2024 11:14am DIVERTICULITIS WITH ABSCESS AFIB RVR December 16, 2024 3:41pm DIVERTICULITIS WITH ABSCESS AFIB RVR December 17, 2024 7:31am DIVERTICULITIS WITH ABSCESS AFIB RVR December 17, 2024 11:51am DIVERTICULITIS WITH ABSCESS AFIB RVR December 18, 2024 5:49am DIVERTICULITIS WITH ABSCESS AFIB RVR December 18, 2024 9:44am DIVERTICULITIS WITH ABSCESS AFIB RVR December 18, 2024 3:11pm DIVERTICULITIS WITH ABSCESS AFIB RVR Iker e 2024 8:43am DIVERTICULITIS WITH ABSCESS AFIB RVR Iker e 2024 1:23pm DIVERTICULITIS WITH ABSCESS AFIB RVR Iker e 2024 2:09pm DIVERTICULITIS WITH ABSCESS AFIB RVR Iker e 2024 8:36am DIVERTICULITIS WITH ABSCESS AFIB RVR Iker e 2024 8:51am DIVERTICULITIS WITH ABSCESS AFIB RVR Iker e 2024 10:26am DIVERTICULITIS WITH ABSCESS AFIB RVR Iker e 2024 2:36am DIVERTICULITIS WITH ABSCESS AFIB RVR Iker e 2024 8:21am DIVERTICULITIS WITH ABSCESS AFIB RVR Iker e 2024 8:45am DIVERTICULITIS WITH ABSCESS AFIB RVR Iker e 2024 12:23am DIVERTICULITIS WITH ABSCESS AFIB RVR Iker e 2024 9:15am DIVERTICULITIS WITH ABSCESS AFIB RVR Iker e 2024 2:49pm Reason for Visit Admit Date Abdominal pain December 13, 2024 8:27p m Abnormal electrocardiogram December 13 8:27pm Atrial fibrillation with RVR December 13, 2 025 8:27pm Atrial flutter with rapid ventricular re sponse December 13, 2024 8:27pm Chronic anticoagulation December 13, 2024 8 :27pm Colonic diverticular abscess December 13, 2 025 8:27pm Diverticulitis December 13, 2024 8:27p m LV dysfunction December 13, 2024 8:27p m PAF (paroxysmal atrial fibrillation) December 13, 2024 8:27pm Superficial venous thrombosis of arm December 13, 2024 8:27pm Essential (primary) hypertension November 8:27pm Left bundle branch block (LBBB) November 8:27pm Chief Complaint Admit Date DIVERTICULITIS WITH ABSCESS AFIB RVR December 13, 2024 8:17pm DIVERTICULITIS WITH ABSCESS AFIB RVR December 13, 2024 8:27pm DIVERTICULITIS WITH ABSCESS AFIB RVR December 14, 2024 11:33am DIVERTICULITIS WITH ABSCESS AFIB RVR December 14, 2024 11:43am DIVERTICULITIS WITH ABSCESS AFIB RVR December 15, 2024 7:20am DIVERTICULITIS WITH ABSCESS AFIB RVR December 15, 2024 11:15am DIVERTICULITIS WITH ABSCESS AFIB RVR December 15, 2024 11:54am DIVERTICULITIS WITH ABSCESS AFIB RVR December 15, 2024 5:18pm DIVERTICULITIS WITH ABSCESS AFIB RVR December 16, 2024 6:56am DIVERTICULITIS WITH ABSCESS AFIB RVR December 16, 2024 10:35am DIVERTICULITIS WITH ABSCESS AFIB RVR December 16, 2024 11:14am DIVERTICULITIS WITH ABSCESS AFIB RVR December 16, 2024 3:41pm DIVERTICULITIS WITH ABSCESS AFIB RVR December 17, 2024 7:31am DIVERTICULITIS WITH ABSCESS AFIB RVR December 17, 2024 11:51am DIVERTICULITIS WITH ABSCESS AFIB RVR December 18, 2024 5:49am DIVERTICULITIS WITH ABSCESS AFIB RVR December 18, 2024 9:44am DIVERTICULITIS WITH ABSCESS AFIB RVR December 18, 2024 3:11pm DIVERTICULITIS WITH ABSCESS AFIB RVR Dec 8:43am DIVERTICULITIS WITH ABSCESS AFIB RVR Iker e 2024 1:23pm DIVERTICULITIS WITH ABSCESS AFIB RVR Iker e 2024 2:09pm DIVERTICULITIS WITH ABSCESS AFIB RVR Iker e 2024 8:36am DIVERTICULITIS WITH ABSCESS AFIB RVR Iker e 2024 8:51am DIVERTICULITIS WITH ABSCESS AFIB RVR Iker e 2024 10:26am DIVERTICULITIS WITH ABSCESS AFIB RVR Iker e 2024 2:36am DIVERTICULITIS WITH ABSCESS AFIB RVR Iker e 2024 8:21am DIVERTICULITIS WITH ABSCESS AFIB RVR Iker e 2024 8:45am DIVERTICULITIS WITH ABSCESS AFIB RVR Iker e 2024 12:23am DIVERTICULITIS WITH ABSCESS AFIB RVR Iker e 2024 9:15am DIVERTICULITIS WITH ABSCESS AFIB RVR Iker e 2024 2:49pm RT ANTECUBITAL PAIN December 22, 2024 2:55p m S/P [facility] 6/4 AFIB March 03, 2025 10 :09am Reason for Visit Admit Date Abdominal pain December 13, 2024 8:27p m Atrial fibrillation with RVR December 13, 2 025 8:27pm Atrial flutter with rapid ventricular re sponse December 13, 2024 8:27pm Colonic diverticular abscess December 13, 2 025 8:27pm Diverticulitis December 13, 2024 8:27p m Superficial venous thrombosis of arm December 13, 2024 8:27pm Abnormal electrocardiogram December 13 8:27pm Chronic anticoagulation December 13, 2024 8 :27pm Essential (primary) hypertension November 8:27pm Left bundle branch block (LBBB) November 8:27pm LV dysfunction December 13, 2024 8:27p m PAF (paroxysmal atrial fibrillation) December 13, 2024 8:27pm Chief Complaint Admit Date DIVERTICULITIS WITH ABSCESS AFIB RVR December 13, 2024 8:27pm DIVERTICULITIS WITH ABSCESS AFIB RVR Iker e 2024 2:36am DIVERTICULITIS WITH ABSCESS AFIB RVR Iker e 2024 8:21am DIVERTICULITIS WITH ABSCESS AFIB RVR Iker e 2024 8:45am DIVERTICULITIS WITH ABSCESS AFIB RVR Iker e 2024 12:23am DIVERTICULITIS WITH ABSCESS AFIB RVR Iker 2024 9:15am DIVERTICULITIS WITH ABSCESS AFIB RVR Iker e 2024 2:49pm RT ANTECUBITAL PAIN December 22, 2024 2:55p m S/P [facility] /4 AFIB March 03, 2025 10 :09am BRUITS March 28, 2025 9:58am AFIB April 06, 2025 10:32am Reason for Visit Admit Date Abdominal pain December 13, 2024 8:27p m Atrial fibrillation with RVR December 13, 2 025 8:27pm Atrial flutter with rapid ventricular re sponse December 13, 2024 8:27pm Colonic diverticular abscess December 13, 025 8:27pm Diverticulitis December 13, 2024 8:27p m Superficial venous thrombosis of arm December 13, 2024 8:27pm Abnormal electrocardiogram December 13 8:27pm Chronic anticoagulation December 13, 2024 8 :27pm Essential (primary) hypertension November 8:27pm Left bundle branch block (LBBB) November 8:27pm LV dysfunction December 13, 2024 8:27p m PAF (paroxysmal atrial fibrillation) December 13, 2024 8:27pm Atrial fibrillation with RVR February 10:09am Bilateral carotid bruits March 03 10:09am HFrEF (heart failure with reduced ejecti on fraction) March 03, 2025 10:09am Chief Complaint Admit Date S/P [facility] 6/4 AFIB March 03, 2025 10 :09am BRUITS March 28, 2025 9:58am AFIB April 06, 2025 10:32am Carotid Artery Stenosis May 06 1:45pm Reason for Visit Admit Date Atrial fibrillation with RVR February 10:09am Bilateral carotid bruits March 03 10:09am HFrEF (heart failure with reduced ejecti on fraction) March 03, 2025 10:09am Bilateral carotid artery stenosis Octobe r 2024 1:45pm Family History Relationship Condition Age at Onset Recorded Date/T cathy father Hypertension Unknown Malignant neoplasm of colon Unknown mother Malignant neoplasm of breast Unknown Advance Directives Advance Directive Response Recorded Date/ Time Advance Directives No May 05, 2015 7:43am Living Will No November 06, 2020 1:59pm Power of Nightman No November 06 1:59pm Advance Directive Response Recorded Date/ Time Advance Directives No May 05, 2015 7:43am Advance Directive Response Recorded Date/ Time Do you have a Healthcare Power of Nightman? Yes December 13, 2024 5:49pm Name of Medical Power of Nightman Samantha December 13, 2024 5:49pm Advance Directives No May 05, 2015 7:43am Advance Directive Response Recorded Date/ Time Do you have a Healthcare Pow er of Nightman? Yes December 13, 2024 9:07pm Name of Medical Power of Nightman grzegorz Storm December 13, 2024 9:07pm Advance Directives No May 05, 2015 7:43am Date Activated Date Inactivated Comments 12/22/2024 11:27 PM Date Activated Date Inactivated Comments 12/08/2024 7:57 PM 12/22/2024 11:27 PM Date Activated Date Inactivated Comments 12/22/2024 11:27 PM Date Activated Date Inactivated Comments 12/08/2024 7:57 PM 12/22/2024 11:27 PM Summary Purpose Medications Administered Section Inactive Administered Medications - up to 3 most recent administrations Medication Order MAR Action Action Date Dose Rate Site diphenhydrAMINE 12.5-50 mg injection (BENADRYL) 12.5-50 mg, INTRAVENOUS, DIRECTED, Starting on Fri07/26/22 at 0900, Until Fri07/26/22 at 1259, DOSING DIRECTED BY PHYSICIAN FOR PROCEDURAL SEDATION ONLY, Intraprocedure Given 07/26/2022 8:56 AM EST 50 mg fentaNYL 50 mcg/mL 25-100 mcg injection (SUBLIMAZE) 25-100 mcg, INTRAVENOUS, DIRECTED, Starting on Fri07/26/22 at 0900, Until Fri07/26/22 at 1259, DOSING DIRECTED BY PHYSICIAN FOR PROCEDURAL SEDATION ONLY, Intraprocedure Given 07/26/2022 9:35 AM EST 25 mcg Given 07/26/2022 9:23 AM EST 25 mcg Given 07/26/2022 9:18 AM EST 25 mcg lactated ringers iv infusion 75 mL/hr, INTRAVENOUS, CONTINUOUS, Starting on Fri07/26/22 at 0800, Until Fri07/26/22 at 1004, Preprocedure New Bag/Syringe/Bottle 07/26/2022 8:02 AM EST 75 mL/hr 75 mL/hr Hand, Right midazolam 1-5 mg injection (VERSED) 1-5 mg, INTRAVENOUS, DIRECTED, Starting on Fri07/26/22 at 0900, Until Fri07/26/22 at 1259, DOSING DIRECTED BY PHYSICIAN FOR PROCEDURAL SEDATION ONLY, Intraprocedure Given 07/26/2022 9:05 AM EST 2 mg Given 07/26/2022 8:59 AM EST 2 mg Given 07/26/2022 8:58 AM EST 2 mg Additional Source Comments Goals (unrecognized section and content) Goals may be documented in a n alternate sectionGoals may be documented in an alternate sectionGoals may be documented in an alternate sectionGoals may be documented in an alternate sectionGoals may be documented in an alternate sectionGoals may be documented in an alternate sectionGoals may be documented in an alternate sectionGoals may be documented in an alternate sectionGoals may be documented in an alternate sectionGoals may be documented in an alternate sectionGoals may be documented in an alternate section Source Comments (unrecognize d section and content) In the event this informatio n is protected by the Federal Confidentiality of Alcohol and Drug Abuse Patient Records regulations: The Federal rules restrict any use of the information to criminally investigate or prosecute any alcohol or drug abuse patient.[facility] the event this information is protected by the Federal Confidentiality of Alcohol and Drug Abuse Patient Records regulations: The Federal rules restrict any use of the information to criminally investigate or prosecute any alcohol or drug abuse patient.[facility] the event this information is protected by the Federal Confidentiality of Alcohol and Drug Abuse Patient Records regulations: The Federal rules restrict any use of the information to criminally investigate or prosecute any alcohol or drug abuse patient.[facility] Reason for Visit (unrecogniz ed section and content) Reason Comments Consult Colonoscopy Reason Comments Follow Up colonoscopy Care Teams (unrecognized sec tion and content) [place] Relationship Specialty Start Date End Date Adeline Zambrano MD PCP - General Family Medicine 09/04/15 [place] Relationship Specialty Start Date End Date Adeline Zambrano MD PCP - General Family Medicine 09/04/15 Team Status: Active Member Role Status Dates Dr. Adeline Zambrano MD Family Provider Active Dr. Zechariah Siddiqui MD Primary Care Provider Active Team Status: Inactive Member Role Status Dates Dr. Zechariah Siddiqui MD Primary Care Provider Active Dr. Tee Mahmood MD Attending Provider, [facility] Active Team Status: Inactive Member Role Status Dates Dr. Zechariah Siddiqui MD Primary Care Provider, Attending Erlinda serrano Active Team Status: Inactive Member Role Status Dates Dr. Zechariah Siddiqui MD Primary Care Provider, Referring P maggie Active IRA Maza Attending Provider Active Team Status: Inactive Member Role Status Dates Dr. Zechariah Siddiqui MD Primary Care Provider Active Mariangel ROTH PA Attending Provider Active Team Status: Active Member Role Status Dates Dr. Zechariah Siddiqui MD Primary Care Provider Active Dr. Eric Buenrostro MD Attending Provider Active Team Status: Inactive Member Role Status Dates Dr. Zechariah Siddiqui MD Primary Care Provider Active Mariangel Rider PA, PA Attending Provider, Referr ing Provider Active Team Status: Active Member Role Status Dates Dr. Zechariah Siddiqui MD Primary Care Provider Active Dr. Eric Buenrostro MD Attending Provider, Referring Pro vider Active [place] Relationship Specialty Start Date End Date Adeline Zambrano MD PCP - General Family Medicine 09/04/15 Team Status: Active Member Role Status Dates Dr. Zechariah Siddiqui MD Primary Care Provider Active Team Status: Inactive Member Role Status Dates Dr. Zechariah Siddiqui MD Primary Care Provider Active Start: August 12, 2024 End: August 12, 2024 Dr. Samuel Carreno MD Attending Provider Active Start: August 12, 2024 End: August 12, 2024 Team Status: Inactive Member Role Status Dates Dr. Zechariah Siddiqui MD Primary Care Provider Active Start: August 20, 2024 End: August 20, 2024 Dr. Samuel Carreno MD Attending Provider Active Start: August 20, 2024 End: August 20, 2024 Dr. Samuel Carreno MD Referring Provider Active Start: August 20, 2024 End: August 20, 2024 Team Status: Inactive Member Role Status Dates Dr. Zechariah Siddiqui MD Primary Care Provider Active Start: October 29, 2024 End: October 29, 2024 Dr. Zechariah Siddiqui MD Attending Provider Active St art: October 29, 2024 End: October 29, 2024 Dr. Zechariah Siddiqui MD Referring Provider Active St art: October 29, 2024 End: October 29, 2024 Team Status: Inactive Member Role Status Dates Dr. Zechariah Siddiqui MD Primary Care Provider Active Start: November 04, 2024 End: November 04, 2024 Dr. Zechariah Siddiqui MD Attending Provider Active St art: November 04, 2024 End: November 04, 2024 Dr. Zechariah Siddiqui MD Referring Provider Active St art: November 04, 2024 End: November 04, 2024 Team Status: Inactive Member Role Status Dates Dr. Zechariah Siddiqui MD Primary Care Provider Active Start: November 11, 2024 End: November 11, 2024 Dr. Tee Mahmood MD Attending Provider Active Start: November 11, 2024 End: November 11, 2024 Dr. Tee Mahmood MD Referring Provider Active Start: November 11, 2024 End: November 11, 2024 Team Status: Inactive Member Role Status Dates Dr. Zechariah Siddiqui MD Primary Care Provider Active Start: November 30, 2024 End: November 30, 2024 Dr. Zechariah Siddiqui MD Attending Provider Active St art: November 30, 2024 End: November 30, 2024 Dr. Zechariah Siddiqui MD Referring Provider Active St art: November 30, 2024 End: November 30, 2024 Team Status: Active Member Role Status Dates Dr. Zechariah Siddiqui MD Primary Care Provider Active Start: December 13, 2024 Dr. Oswaldo Frances DO Emergency Provider Active Start : December 13, 2024 Dr. Zhang Hester MD Admit Provider Active Star t: December 13, 2024 Dr. Zhang Hester MD Attending Provider Active Start: December 13, 2024 Dr. Zhang Hester MD Other Provider Active Star t: December 13, 2024 Team Status: Active Member Role Status Dates Dr. Zechariah Siddiqui MD Primary Care Provider Active Start: December 13, 2024 Dr. Oswaldo Frances DO Emergency Provider Active Start : December 13, 2024 Dr. Zhang Hester MD Admit Provider Active Star t: December 13, 2024 Dr. Zhang Hester MD Attending Provider Active Start: December 13, 2024 Team Status: Inactive Member Role Status Dates Dr. Zechariah Siddiqui MD Primary Care Provider Active Start: December 13, 2024 End: December 22, 2024 Dr. Oswaldo Frances DO Emergency Provider Active Start : December 13, 2024 End: December 22, 2024 Dr. Zhang Hester MD Admit Provider Active Star t: December 13, 2024 End: December 22, 2024 Dr. Zhang Hester MD Other Provider Active Star t: December 13, 2024 End: December 22, 2024 Dr. Delano Harris MD Other Provider Active Start: December 13, 2024 End: December 22, 2024 Dr. Leyda Moore MD Other Provider Active Start: December 13, 2024 End: December 22, 2024 Dr. Harrison Morris MD Other Provider Active St art: December 13, 2024 End: December 22, 2024 Dr. Joss Cooper MD Other Provider Active Star t: December 13, 2024 End: December 22, 2024 Dr. Kareem Tellez MD Other Provider Active Sta rt: December 13, 2024 End: December 22, 2024 Dr. Pancho Costa MD Other Provider Active Star t: December 13, 2024 End: December 22, 2024 Dr. Eric Buenrostro MD Other Provider Active Start : December 13, 2024 End: December 22, 2024 Dr. Jaziel Lundberg MD Other Provider Active Star t: December 13, 2024 End: December 22, 2024 Dr. Basil Hunter MD Other Provider Active St art: December 13, 2024 End: December 22, 2024 Dr. Cecile June MD Other Provider Active Start: December 13, 2024 End: December 22, 2024 Dr. Bharathi Gray MD Other Provider Active S tart: December 13, 2024 End: December 22, 2024 Dr. Ike Dawkins MD Other Provider Active Start: December 13, 2024 End: December 22, 2024 Etienne Hernandez RECORDS MANAGEMENT MANAGER, RECORDS MANAGEMENT MANAGER-C Other Provider Active Start : December 13, 2024 End: December 22, 2024 Mariangel Rider PA, PA Other Provider Active Start: December 13, 2024 End: December 22, 2024 IRA Mullen Other Provider Active Start: December 13, 2024 End: December 22, 2024 Dr. Aaron Hardin MD Other Provider Active Start: December 13, 2024 End: December 22, 2024 Dr. Almas Casanova MD Other Provider Active Start: December 13, 2024 End: December 22, 2024 Dr. Ramana Ford MD Other Provider Active Star t: December 13, 2024 End: December 22, 2024 Dr. Montana Leone DO Other Provider Active Start : December 13, 2024 End: December 22, 2024 Dr. Greg Lennon MD Other Provider Active Sta rt: December 13, 2024 End: December 22, 2024 Dr. Gibran Huizar MD Other Provider Active St art: December 13, 2024 End: December 22, 2024 Dr. Hugh Doss MD Other Provider Active S tart: December 13, 2024 End: December 22, 2024 Dr. Ani Smith MD Other Provider Active Start: December 13, 2024 End: December 22, 2024 Dr. Jak Corrigan MD Other Provider Active Start : December 13, 2024 End: December 22, 2024 Dr. Alfie Loyola MD Other Provider Active Start: December 13, 2024 End: December 22, 2024 Dr. Danny Prescott MD Other Provider Active Start : December 13, 2024 End: December 22, 2024 Dr. Jagruti Bunch MD Other Provider Active Star t: December 13, 2024 End: December 22, 2024 Dr. Renee Hernandez MD Other Provider Active Sta rt: December 13, 2024 End: December 22, 2024 Dr. Danyell Yang MD Other Provider Active Sta rt: December 13, 2024 End: December 22, 2024 Dr. Clemente Chao MD Other Provider Active Star t: December 13, 2024 End: December 22, 2024 Dr. Charles Carrington MD Other Provider Active St art: December 13, 2024 End: December 22, 2024 Dr. Jesus Sheffield MD Other Provider Active Star t: December 13, 2024 End: December 22, 2024 Dr. Tyrell Vasquez DO Other Provider Active St art: December 13, 2024 End: December 22, 2024 Dr. Kelly Mix MD Other Provider Active Start: December 13, 2024 End: December 22, 2024 Dr. Fabiola Markham MD Other Provider Active St art: December 13, 2024 End: December 22, 2024 Dr. Scooby Beasley DO Other Provider Active Start: December 13, 2024 End: December 22, 2024 Dr. Varinder Medel MD Other Provider Active Star t: December 13, 2024 End: December 22, 2024 Dr. Leno Scherer MD Other Provider Active Sta rt: December 13, 2024 End: December 22, 2024 Dr. Eric Gutierrez DO Other Provider Active Start: December 13, 2024 End: December 22, 2024 Dr. Zechariah Plasencia DO Attending Provider Active Start: December 13, 2024 End: December 22, 2024 Team Status: Active Member Role Status Dates Dr. Zechariah Siddiqui MD Primary Care Provider Active Start: December 14, 2024 Dr. Jaziel Lundberg MD Attending Provider Active Start: December 14, 2024 Team Status: Active Member Role Status Dates Dr. Zechariah Siddiqui MD Primary Care Provider Active Start: December 14, 2024 Dr. Oswaldo Frances DO Emergency Provider Active Start : December 14, 2024 Dr. Zhang Hester MD Admit Provider Active Star t: December 14, 2024 Dr. Zhang Hester MD Other Provider Active Star t: December 14, 2024 Dr. Delano Harris MD Other Provider Active Start: December 14, 2024 Dr. Eric Gutierrez DO Attending Provider Active Start: December 14, 2024 Dr. Eric Gutierrez DO Other Provider Active Start: December 14, 2024 Dr. Leyda Moore MD Other Provider Active Start: December 14, 2024 Dr. Harrison Morris MD Other Provider Active St art: December 14, 2024 Dr. Joss Cooper MD Other Provider Active Star t: December 14, 2024 Dr. Kareem Tellez MD Other Provider Active Sta rt: December 14, 2024 Dr. Pancho Costa MD Other Provider Active Star t: December 14, 2024 Dr. Eric Buenrostro MD Other Provider Active Start : December 14, 2024 Dr. Jaziel Lundberg MD Other Provider Active Star t: December 14, 2024 Dr. Basil Hunter MD Other Provider Active St art: December 14, 2024 Dr. Cecile June MD Other Provider Active Start: December 14, 2024 Dr. Bharathi Gray MD Other Provider Active S tart: December 14, 2024 Dr. Ike Dawkins MD Other Provider Active Start: December 14, 2024 Etienne Hernandez RECORDS MANAGEMENT MANAGER, RECORDS MANAGEMENT MANAGER-C Other Provider Active Start : December 14, 2024 Mariangel Rider PA, PA Other Provider Active Start: December 14, 2024 IRA Mullen Other Provider Active Start: December 14, 2024 Team Status: Active Member Role Status Dates Dr. Zechariah Siddiqui MD Primary Care Provider Active Start: December 14, 2024 Dr. Oswaldo Frances DO Emergency Provider Active Start : December 14, 2024 Dr. Zhang Hester MD Admit Provider Active Star t: December 14, 2024 Dr. Zhang Hester MD Other Provider Active Star t: December 14, 2024 Dr. Delano Harris MD Attending Provider Active Start: December 14, 2024 Dr. Delano Harris MD Other Provider Active Start: December 14, 2024 Dr. Eric Gutierrez , Other Provider Active Start: December 14, 2024 Dr. Leyda Moore MD Other Provider Active Start: December 14, 2024 Dr. Harrison Morris MD Other Provider Active St art: December 14, 2024 Dr. Joss Cooper MD Other Provider Active Star t: December 14, 2024 Dr. Kareem Tellez MD Other Provider Active Sta rt: December 14, 2024 Dr. Pancho Costa MD Other Provider Active Star t: December 14, 2024 Dr. Eric Buenrostro MD Other Provider Active Start : December 14, 2024 Dr. Jaziel Lundberg MD Other Provider Active Star t: December 14, 2024 Dr. Basil Hunter MD Other Provider Active St art: December 14, 2024 Dr. Cecile June MD Other Provider Active Start: December 14, 2024 Dr. Bharathi Gray MD Other Provider Active S tart: December 14, 2024 Dr. Ike Dawkins MD Other Provider Active Start: December 14, 2024 Etienne Hernandez RECORDS MANAGEMENT MANAGER, RECORDS MANAGEMENT MANAGER-C Other Provider Active Start : December 14, 2024 IRA Maza Other Provider Active Start: December 14, 2024 IRA Mullen Other Provider Active Start: December 14, 2024 Team Status: Active Member Role Status Dates Dr. Zechariah Siddiqui MD Primary Care Provider Active Start: December 15, 2024 Dr. Oswaldo Frances DO Emergency Provider Active Start : December 15, 2024 Dr. Zhang Hester MD Admit Provider Active Star t: December 15, 2024 Dr. Zhang Hester MD Other Provider Active Star t: December 15, 2024 Dr. Delano Harris MD Attending Provider Active Start: December 15, 2024 Dr. Delano Harris MD Other Provider Active Start: December 15, 2024 Dr. Eric Gutierrez DO Other Provider Active Start: December 15, 2024 Dr. Leyda Moore MD Other Provider Active Start: December 15, 2024 Dr. Harrison Morris MD Other Provider Active St art: December 15, 2024 Dr. Joss Cooper MD Other Provider Active Star t: December 15, 2024 Dr. Kareem Tellez MD Other Provider Active Sta rt: December 15, 2024 Dr. Pancho Costa MD Other Provider Active Star t: December 15, 2024 Dr. Eric Buenrostro MD Other Provider Active Start : December 15, 2024 Dr. Jaziel Lundberg MD Other Provider Active Star t: December 15, 2024 Dr. Basil Hunter MD Other Provider Active St art: December 15, 2024 Dr. Cecile June MD Other Provider Active Start: December 15, 2024 Dr. Bharathi Gray MD Other Provider Active S tart: December 15, 2024 Dr. Ike Dawkins MD Other Provider Active Start: December 15, 2024 Etienne Hernandez RECORDS MANAGEMENT MANAGER, RECORDS MANAGEMENT MANAGER-C Other Provider Active Start : December 15, 2024 Mariangel Rider PA, PA Other Provider Active Start: December 15, 2024 IRA Mullen Other Provider Active Start: December 15, 2024 Team Status: Active Member Role Status Dates Dr. Zechariah Siddiqui MD Primary Care Provider Active Start: December 15, 2024 Dr. Oswaldo Frances DO Emergency Provider Active Start : December 15, 2024 Dr. Zhang Hester MD Admit Provider Active Star t: December 15, 2024 Dr. Zhang Hester MD Other Provider Active Star t: December 15, 2024 Dr. Delano Harris MD Other Provider Active Start: December 15, 2024 Dr. Eric Gutierrez DO Attending Provider Active Start: December 15, 2024 Dr. Eric Gutierrez , Other Provider Active Start: December 15, 2024 Dr. Leyda Moore MD Other Provider Active Start: December 15, 2024 Dr. Harrison Morris MD Other Provider Active St art: December 15, 2024 Dr. Joss Cooper MD Other Provider Active Star t: December 15, 2024 Dr. Kareem Tellez MD Other Provider Active Sta rt: December 15, 2024 Dr. Pancho Costa MD Other Provider Active Star t: December 15, 2024 Dr. Eric Buenrostro MD Other Provider Active Start : December 15, 2024 Dr. Jaziel Lundberg MD Other Provider Active Star t: December 15, 2024 Dr. Basil Hunter MD Other Provider Active St art: December 15, 2024 Dr. Cecile June MD Other Provider Active Start: December 15, 2024 Dr. Bharathi Gray MD Other Provider Active S tart: December 15, 2024 Dr. Ike Dawkins MD Other Provider Active Start: December 15, 2024 Etienne Hernandez RECORDS MANAGEMENT MANAGER, RECORDS MANAGEMENT MANAGER-C Other Provider Active Start : December 15, 2024 Mariangel ROTH, PA Other Provider Active Start: December 15, 2024 IRA Mullen Other Provider Active Start: December 15, 2024 Team Status: Active Member Role Status Dates Dr. Zechariah Siddiqui MD Primary Care Provider Active Start: December 15, 2024 Dr. Oswaldo Frances DO Emergency Provider Active Start : December 15, 2024 Dr. Zhang Hester MD Admit Provider Active Star t: December 15, 2024 Dr. Zhang Hester MD Other Provider Active Star t: December 15, 2024 Dr. Delano Harris MD Other Provider Active Start: December 15, 2024 Dr. Eric Gutierrez DO Other Provider Active Start: December 15, 2024 Dr. Leyda Moore MD Other Provider Active Start: December 15, 2024 Dr. Harrison Morris MD Other Provider Active St art: December 15, 2024 Dr. Joss Cooper MD Other Provider Active Star t: December 15, 2024 Dr. Kareem Tellez MD Other Provider Active Sta rt: December 15, 2024 Dr. Pancho Costa MD Other Provider Active Star t: December 15, 2024 Dr. Eric Buenrostro MD Other Provider Active Start : December 15, 2024 Dr. Jaziel Lundberg MD Other Provider Active Star t: December 15, 2024 Dr. Basil Hunter MD Other Provider Active St art: December 15, 2024 Dr. Cecile June MD Other Provider Active Start: December 15, 2024 Dr. Bharathi Gray MD Other Provider Active S tart: December 15, 2024 Dr. Ike Dawkins MD Other Provider Active Start: December 15, 2024 Etienne Hernandez RECORDS MANAGEMENT MANAGER, RECORDS MANAGEMENT MANAGER-C Other Provider Active Start : December 15, 2024 Mariangel Rider PA, PA Other Provider Active Start: December 15, 2024 IRA Mullen Other Provider Active Start: December 15, 2024 Dr. Montana Leone , Attending Provider Active S tart: December 15, 2024 Team Status: Active Member Role Status Dates Dr. Zechariah Siddiqui MD Primary Care Provider Active Start: December 15, 2024 Dr. Oswaldo Frances DO Emergency Provider Active Start : December 15, 2024 Dr. Zhang Hester MD Admit Provider Active Star t: December 15, 2024 Dr. Zhang Hester MD Other Provider Active Star t: December 15, 2024 Dr. Delano Harris MD Other Provider Active Start: December 15, 2024 Dr. Eric Gutierrez DO Other Provider Active Start: December 15, 2024 Dr. Leyda Moore MD Other Provider Active Start: December 15, 2024 Dr. Harrison Morris MD Other Provider Active St art: December 15, 2024 Dr. Joss Cooper MD Other Provider Active Star t: December 15, 2024 Dr. Kareem Tellez MD Other Provider Active Sta rt: December 15, 2024 Dr. Pancho Costa MD Other Provider Active Star t: December 15, 2024 Dr. Eric Buenrostro MD Other Provider Active Start : December 15, 2024 Dr. Jaziel Lundberg MD Attending Provider Active Start: December 15, 2024 Dr. Jaziel Lundberg MD Other Provider Active Star t: December 15, 2024 Dr. Basil Hunter MD Other Provider Active St art: December 15, 2024 Dr. Cecile June MD Other Provider Active Start: December 15, 2024 Dr. Bharathi Gray MD Other Provider Active S tart: December 15, 2024 Dr. Ike Dawkins MD Other Provider Active Start: December 15, 2024 Etienne Hernandez RECORDS MANAGEMENT MANAGER, RECORDS MANAGEMENT MANAGER-C Other Provider Active Start : December 15, 2024 Mariangel Rider PA, PA Other Provider Active Start: December 15, 2024 IRA Mullen Other Provider Active Start: December 15, 2024 Dr. Aaron Hardin MD Other Provider Active Start: December 15, 2024 Dr. Almas Casanova MD Other Provider Active Start: December 15, 2024 Dr. Ramana Ford MD Other Provider Active Star t: December 15, 2024 Dr. Montana Leone DO Other Provider Active Start : December 15, 2024 Dr. Greg Lennon MD Other Provider Active Sta rt: December 15, 2024 Dr. Gibran Huizar MD Other Provider Active St art: December 15, 2024 Dr. Hugh Doss MD Other Provider Active S tart: December 15, 2024 Dr. Ani Smith MD Other Provider Active Start: December 15, 2024 Dr. Jak Corrigan MD Other Provider Active Start : December 15, 2024 Dr. Alfie Loyola MD Other Provider Active Start: December 15, 2024 Dr. Danny Prescott MD Other Provider Active Start : December 15, 2024 Dr. Jagruti Bunch MD Other Provider Active Star t: December 15, 2024 Dr. Renee Hernandez MD Other Provider Active Sta rt: December 15, 2024 Dr. Danyell Yang MD Other Provider Active Sta rt: December 15, 2024 Dr. Clemente Chao MD Other Provider Active Star t: December 15, 2024 Dr. Charles Carrington MD Other Provider Active St art: December 15, 2024 Dr. Jesus Sheffield MD Other Provider Active Star t: December 15, 2024 Dr. Tyrell Vasquez , DO Other Provider Active St art: December 15, 2024 Dr. Kelly Mix MD Other Provider Active Start: December 15, 2024 Dr. Fabiola Markham MD Other Provider Active St art: December 15, 2024 Dr. Scooby Beasley , DO Other Provider Active Start: December 15, 2024 Dr. Varinder Medel MD Other Provider Active Star t: December 15, 2024 Dr. Leno Scherer MD Other Provider Active Sta rt: December 15, 2024 Team Status: Active Member Role Status Dates Dr. Zechariah Siddiqui MD Primary Care Provider Active Start: December 16, 2024 Dr. Oswaldo Frances , Emergency Provider Active Start : December 16, 2024 Dr. Zhang Hester MD Admit Provider Active Star t: December 16, 2024 Dr. Zhang Hester MD Other Provider Active Star t: December 16, 2024 Dr. Delano Harris MD Other Provider Active Start: December 16, 2024 Dr. Eric Gutierrez DO Other Provider Active Start: December 16, 2024 Dr. Leyda Moore MD Other Provider Active Start: December 16, 2024 Dr. Harrison Morris MD Other Provider Active St art: December 16, 2024 Dr. Joss Cooper MD Other Provider Active Star t: December 16, 2024 Dr. Kareem Tellez MD Other Provider Active Sta rt: December 16, 2024 Dr. Pancho Costa MD Other Provider Active Star t: December 16, 2024 Dr. Eric Buenrostro MD Other Provider Active Start : December 16, 2024 Dr. Jaziel Lundberg MD Other Provider Active Star t: December 16, 2024 Dr. Basil Hunter MD Other Provider Active St art: December 16, 2024 Dr. Cecile June MD Other Provider Active Start: December 16, 2024 Dr. Bharathi Gray MD Other Provider Active S tart: December 16, 2024 Dr. Ike Dawkins MD Other Provider Active Start: December 16, 2024 Etienne Hernandez RECORDS MANAGEMENT MANAGER, RECORDS MANAGEMENT MANAGER-C Other Provider Active Start : December 16, 2024 Mariangel ROTH, PA Other Provider Active Start: December 16, 2024 IRA Mullen Other Provider Active Start: December 16, 2024 Dr. Aaron Hardin MD Other Provider Active Start: December 16, 2024 Dr. Almas Casanova MD Other Provider Active Start: December 16, 2024 Dr. Ramana Ford MD Other Provider Active Star t: December 16, 2024 Dr. Montana Leone , Attending Provider Active S tart: December 16, 2024 Dr. Montana Leone , DO Other Provider Active Start : December 16, 2024 Dr. Greg Lennon MD Other Provider Active Sta rt: December 16, 2024 Dr. Gibran Huizar MD Other Provider Active St art: December 16, 2024 Dr. Hugh Doss MD Other Provider Active S tart: December 16, 2024 Dr. Ani Smith MD Other Provider Active Start: December 16, 2024 Dr. Jak Corrigan MD Other Provider Active Start : December 16, 2024 Dr. Alfie Loyola MD Other Provider Active Start: December 16, 2024 Dr. Danny Prescott MD Other Provider Active Start : December 16, 2024 Dr. Jagruti Bunch MD Other Provider Active Star t: December 16, 2024 Dr. Renee Hernandez MD Other Provider Active Sta rt: December 16, 2024 Dr. Danyell Yang MD Other Provider Active Sta rt: December 16, 2024 Dr. Clemente Chao MD Other Provider Active Star t: December 16, 2024 Dr. Charles Carrington MD Other Provider Active St art: December 16, 2024 Dr. Jesus Sheffield MD Other Provider Active Star t: December 16, 2024 Dr. Tyrell Vasquez , Other Provider Active St art: December 16, 2024 Dr. Kelly Mix MD Other Provider Active Start: December 16, 2024 Dr. Fabiola Markham MD Other Provider Active St art: December 16, 2024 Dr. Scooby Beasley , Other Provider Active Start: December 16, 2024 Dr. Varinder Medel MD Other Provider Active Star t: December 16, 2024 Dr. Leno Scherer MD Other Provider Active Sta rt: December 16, 2024 Team Status: Active Member Role Status Dates Dr. Zechariah Siddiqui MD Primary Care Provider Active Start: December 16, 2024 Dr. Oswaldo Frances DO Emergency Provider Active Start : December 16, 2024 Dr. Zhang Hester MD Admit Provider Active Star t: December 16, 2024 Dr. Zhang Hester MD Other Provider Active Star t: December 16, 2024 Dr. Delano Harris MD Other Provider Active Start: December 16, 2024 Dr. Eric Gutierrez DO Attending Provider Active Start: December 16, 2024 Dr. Eric Gutierrez DO Other Provider Active Start: December 16, 2024 Dr. Leyda Moore MD Other Provider Active Start: December 16, 2024 Dr. Harrison Morris MD Other Provider Active St art: December 16, 2024 Dr. Joss Cooper MD Other Provider Active Star t: December 16, 2024 Dr. Kareem Tellez MD Other Provider Active Sta rt: December 16, 2024 Dr. Pancho Costa MD Other Provider Active Star t: December 16, 2024 Dr. Eric Buenrostro MD Other Provider Active Start : December 16, 2024 Dr. Jaziel Lundberg MD Other Provider Active Star t: December 16, 2024 Dr. Basil Hunter MD Other Provider Active St art: December 16, 2024 Dr. Cecile June MD Other Provider Active Start: December 16, 2024 Dr. Bharathi Gray MD Other Provider Active S tart: December 16, 2024 Dr. Ike Dawkins MD Other Provider Active Start: December 16, 2024 Etienne Hernandez RECORDS MANAGEMENT MANAGER, RECORDS MANAGEMENT MANAGER-C Other Provider Active Start : December 16, 2024 Mariangel Rider PA, PA Other Provider Active Start: December 16, 2024 IRA Mullen Other Provider Active Start: December 16, 2024 Dr. Aaron Hardin MD Other Provider Active Start: December 16, 2024 Dr. Almas Casanova MD Other Provider Active Start: December 16, 2024 Dr. Ramana Ford MD Other Provider Active Star t: December 16, 2024 Dr. Montana Leone , DO Other Provider Active Start : December 16, 2024 Dr. Greg Lennon MD Other Provider Active Sta rt: December 16, 2024 Dr. Gibran Huizar MD Other Provider Active St art: December 16, 2024 Dr. Hugh Doss MD Other Provider Active S tart: December 16, 2024 Dr. Ani Smith MD Other Provider Active Start: December 16, 2024 Dr. Jak Corrigan MD Other Provider Active Start : December 16, 2024 Dr. Alfie Loyola MD Other Provider Active Start: December 16, 2024 Dr. Danny Prescott MD Other Provider Active Start : December 16, 2024 Dr. Jagruti Bunch MD Other Provider Active Star t: December 16, 2024 Dr. Renee Hernandez MD Other Provider Active Sta rt: December 16, 2024 Dr. Danyell Yang MD Other Provider Active Sta rt: December 16, 2024 Dr. Clemente Chao MD Other Provider Active Star t: December 16, 2024 Dr. Charles Carrington MD Other Provider Active St art: December 16, 2024 Dr. Jesus Sheffield MD Other Provider Active Star t: December 16, 2024 Dr. Tyrell Vasquez , Other Provider Active St art: December 16, 2024 Dr. Kelly Mix MD Other Provider Active Start: December 16, 2024 Dr. Fabiola Markham MD Other Provider Active St art: December 16, 2024 Dr. Scooby Beasley , Other Provider Active Start: December 16, 2024 Dr. Varinder Medel MD Other Provider Active Star t: December 16, 2024 Dr. Leno Scherer MD Other Provider Active Sta rt: December 16, 2024 Team Status: Active Member Role Status Dates Dr. Zechariah Siddiqui MD Primary Care Provider Active Start: December 16, 2024 Dr. Oswaldo Frances , Emergency Provider Active Start : December 16, 2024 Dr. Zhang Hester MD Admit Provider Active Star t: December 16, 2024 Dr. Zhang Hester MD Other Provider Active Star t: December 16, 2024 Dr. Delano Harris MD Other Provider Active Start: December 16, 2024 Dr. Eric Gutierrez DO Other Provider Active Start: December 16, 2024 Dr. Leyda Moore MD Other Provider Active Start: December 16, 2024 Dr. Harrison Morris MD Other Provider Active St art: December 16, 2024 Dr. Joss Cooper MD Other Provider Active Star t: December 16, 2024 Dr. Kareem Tellez MD Other Provider Active Sta rt: December 16, 2024 Dr. Pancho Costa MD Other Provider Active Star t: December 16, 2024 Dr. Eric Buenrostro MD Other Provider Active Start : December 16, 2024 Dr. Jaziel Lundberg MD Other Provider Active Star t: December 16, 2024 Dr. Basil Hunter MD Other Provider Active St art: December 16, 2024 Dr. Cecile June MD Other Provider Active Start: December 16, 2024 Dr. Bharathi Gray MD Other Provider Active S tart: December 16, 2024 Dr. Ike Dawkins MD Other Provider Active Start: December 16, 2024 Etienne Hernandez RECORDS MANAGEMENT MANAGER, RECORDS MANAGEMENT MANAGER-C Other Provider Active Start : December 16, 2024 Mariangel Rider PA, PA Other Provider Active Start: December 16, 2024 IRA Mullen Other Provider Active Start: December 16, 2024 Dr. Aaron Hardin MD Other Provider Active Start: December 16, 2024 Dr. Almas Casanova MD Other Provider Active Start: December 16, 2024 Dr. Ramana Ford MD Other Provider Active Star t: December 16, 2024 Dr. Montana Leone DO Other Provider Active Start : December 16, 2024 Dr. Greg Lennon MD Other Provider Active Sta rt: December 16, 2024 Dr. Gibran Huizar MD Other Provider Active St art: December 16, 2024 Dr. Hugh Doss MD Other Provider Active S tart: December 16, 2024 Dr. Ain Smith MD Other Provider Active Start: December 16, 2024 Dr. Jak Corrigan MD Other Provider Active Start : December 16, 2024 Dr. Alfie Loyola MD Other Provider Active Start: December 16, 2024 Dr. Danny Prescott MD Other Provider Active Start : December 16, 2024 Dr. Jagruti Bunch MD Other Provider Active Star t: December 16, 2024 Dr. Renee Hernandez MD Other Provider Active Sta rt: December 16, 2024 Dr. Danyell Yang MD Other Provider Active Sta rt: December 16, 2024 Dr. Clemente Chao MD Other Provider Active Star t: December 16, 2024 Dr. Charles Carrington MD Other Provider Active St art: December 16, 2024 Dr. Jesus Sheffield MD Other Provider Active Star t: December 16, 2024 Dr. Tyrell Vasquez , Other Provider Active St art: December 16, 2024 Dr. Kelly Mix MD Other Provider Active Start: December 16, 2024 Dr. Fabiola Markham MD Other Provider Active St art: December 16, 2024 Dr. Scooby Beasley , Other Provider Active Start: December 16, 2024 Dr. Varinder Medel MD Other Provider Active Star t: December 16, 2024 Dr. Leno Scherer MD Other Provider Active Sta rt: December 16, 2024 Dr. Basil Ramírez MD Attending Provider Active Start: December 16, 2024 Team Status: Active Member Role Status Dates Dr. Zechariah Siddiqui MD Primary Care Provider Active Start: December 16, 2024 Dr. Oswaldo Frances , Emergency Provider Active Start : December 16, 2024 Dr. Zhang Hester MD Admit Provider Active Star t: December 16, 2024 Dr. Zhang Hester MD Other Provider Active Star t: December 16, 2024 Dr. Delano Harris MD Other Provider Active Start: December 16, 2024 Dr. Eric Gutierrez , Other Provider Active Start: December 16, 2024 Dr. Leyda Moore MD Other Provider Active Start: December 16, 2024 Dr. Harrison Morris MD Other Provider Active St art: December 16, 2024 Dr. Joss Cooper MD Other Provider Active Star t: December 16, 2024 Dr. Kareem Tellez MD Other Provider Active Sta rt: December 16, 2024 Dr. Pancho Costa MD Other Provider Active Star t: December 16, 2024 Dr. Eric Buenrostro MD Other Provider Active Start : December 16, 2024 Dr. Jaziel Lundberg MD Attending Provider Active Start: December 16, 2024 Dr. Jaziel Lundberg MD Other Provider Active Star t: December 16, 2024 Dr. Basil Hunter MD Other Provider Active St art: December 16, 2024 Dr. Cecile June MD Other Provider Active Start: December 16, 2024 Dr. Bharathi Gray MD Other Provider Active S tart: December 16, 2024 Dr. Ike Dawkins MD Other Provider Active Start: December 16, 2024 Etienne Hernandez RECORDS MANAGEMENT MANAGER, RECORDS MANAGEMENT MANAGER-C Other Provider Active Start : December 16, 2024 Mariangel ROTH, PA Other Provider Active Start: December 16, 2024 IRA Mullen Other Provider Active Start: December 16, 2024 Dr. Aaron Hardin MD Other Provider Active Start: December 16, 2024 Dr. Almas Casanova MD Other Provider Active Start: December 16, 2024 Dr. Ramana Ford MD Other Provider Active Star t: December 16, 2024 Dr. Montana Leone DO Other Provider Active Start : December 16, 2024 Dr. Greg Lennon MD Other Provider Active Sta rt: December 16, 2024 Dr. Gibran Huizar MD Other Provider Active St art: December 16, 2024 Dr. Hugh Doss MD Other Provider Active S tart: December 16, 2024 Dr. Ani Smith MD Other Provider Active Start: December 16, 2024 Dr. Jak Corrigan MD Other Provider Active Start : December 16, 2024 Dr. Alfie Loyola MD Other Provider Active Start: December 16, 2024 Dr. Danny Prescott MD Other Provider Active Start : December 16, 2024 Dr. Jagruti Bunch MD Other Provider Active Star t: December 16, 2024 Dr. Renee Hernandez MD Other Provider Active Sta rt: December 16, 2024 Dr. Danyell Yang MD Other Provider Active Sta rt: December 16, 2024 Dr. Clemente Chao MD Other Provider Active Star t: December 16, 2024 Dr. Charles Carrnigton MD Other Provider Active St art: December 16, 2024 Dr. Jesus Sheffield MD Other Provider Active Star t: December 16, 2024 Dr. Tyrell Vasquez , DO Other Provider Active St art: December 16, 2024 Dr. Kelly Mix MD Other Provider Active Start: December 16, 2024 Dr. Fabiola Markham MD Other Provider Active St art: December 16, 2024 Dr. Scooby Beasley , Other Provider Active Start: December 16, 2024 Dr. Varinder Medel MD Other Provider Active Star t: December 16, 2024 Dr. Leno Scherer MD Other Provider Active Sta rt: December 16, 2024 Team Status: Active Member Role Status Dates Dr. Zechariah Siddiqui MD Primary Care Provider Active Start: December 17, 2024 Dr. Oswaldo Frances , Emergency Provider Active Start : December 17, 2024 Dr. Zhang Hester MD Admit Provider Active Star t: December 17, 2024 Dr. Zahng Hester MD Other Provider Active Star t: December 17, 2024 Dr. Delano Harris MD Attending Provider Active Start: December 17, 2024 Dr. Delano Harris MD Other Provider Active Start: December 17, 2024 Dr. Eric Gutierrez DO Other Provider Active Start: December 17, 2024 Dr. Leyda Moore MD Other Provider Active Start: December 17, 2024 Dr. Harrison Morris MD Other Provider Active St art: December 17, 2024 Dr. Joss Cooper MD Other Provider Active Star t: December 17, 2024 Dr. Kareem Tellez MD Other Provider Active Sta rt: December 17, 2024 Dr. Pancho Costa MD Other Provider Active Star t: December 17, 2024 Dr. Eric Buenrostro MD Other Provider Active Start : December 17, 2024 Dr. Jaziel Lundberg MD Other Provider Active Star t: December 17, 2024 Dr. Basil Hunter MD Other Provider Active St art: December 17, 2024 Dr. Cecile June MD Other Provider Active Start: December 17, 2024 Dr. Bharathi Gray MD Other Provider Active S tart: December 17, 2024 Dr. Ike Dawkins MD Other Provider Active Start: December 17, 2024 Etienne Patrick Mary RECORDS MANAGEMENT MANAGER, RECORDS MANAGEMENT MANAGER-C Other Provider Active Start : December 17, 2024 Mariangel Rider PA, PA Other Provider Active Start: December 17, 2024 IRA Mullen Other Provider Active Start: December 17, 2024 Dr. Aaron Hardin MD Other Provider Active Start: December 17, 2024 Dr. Almas Casanova MD Other Provider Active Start: December 17, 2024 Dr. Ramana Ford MD Other Provider Active Star t: December 17, 2024 Dr. Montana Leone , Other Provider Active Start : December 17, 2024 Dr. Greg Lennon MD Other Provider Active Sta rt: December 17, 2024 Dr. Gibran Huizar MD Other Provider Active St art: December 17, 2024 Dr. Hugh Doss MD Other Provider Active S tart: December 17, 2024 Dr. Ani Smith MD Other Provider Active Start: December 17, 2024 Dr. Jak Corrigan MD Other Provider Active Start : December 17, 2024 Dr. Alfie Loyola MD Other Provider Active Start: December 17, 2024 Dr. Danny Prescott MD Other Provider Active Start : December 17, 2024 Dr. Jagruti Bunch MD Other Provider Active Star t: December 17, 2024 Dr. Renee Hernandez MD Other Provider Active Sta rt: December 17, 2024 Dr. aDnyell Yang MD Other Provider Active Sta rt: December 17, 2024 Dr. Clemente Chao MD Other Provider Active Star t: December 17, 2024 Dr. Charles Carrington MD Other Provider Active St art: December 17, 2024 Dr. Jesus Sheffield MD Other Provider Active Star t: December 17, 2024 Dr. Tyrell Vasquez , Other Provider Active St art: December 17, 2024 Dr. Kelly Mix MD Other Provider Active Start: December 17, 2024 Dr. Fabiola Markham MD Other Provider Active St art: December 17, 2024 Dr. Scooby Beasley DO Other Provider Active Start: December 17, 2024 Dr. Varinder Medel MD Other Provider Active Star t: December 17, 2024 Dr. Leno Scherer MD Other Provider Active Sta rt: December 17, 2024 Team Status: Active Member Role Status Dates Dr. Zechariah Siddiqui MD Primary Care Provider Active Start: December 17, 2024 Dr. Oswaldo Frances DO Emergency Provider Active Start : December 17, 2024 Dr. Zhang Hester MD Admit Provider Active Star t: December 17, 2024 Dr. Zhang Hester MD Other Provider Active Star t: December 17, 2024 Dr. Delano Harris MD Other Provider Active Start: December 17, 2024 Dr. Eric Gutierrez DO Attending Provider Active Start: December 17, 2024 Dr. Eric Gutierrez DO Other Provider Active Start: December 17, 2024 Dr. Leyda Moore MD Other Provider Active Start: December 17, 2024 Dr. Harrison Morris MD Other Provider Active St art: December 17, 2024 Dr. Joss Cooper MD Other Provider Active Star t: December 17, 2024 Dr. Kareem Tellez MD Other Provider Active Sta rt: December 17, 2024 Dr. Pancho Costa MD Other Provider Active Star t: December 17, 2024 Dr. Eric Buenrostro MD Other Provider Active Start : December 17, 2024 Dr. Jaziel Lundberg MD Other Provider Active Star t: December 17, 2024 Dr. Basil Hunter MD Other Provider Active St art: December 17, 2024 Dr. Cecile June MD Other Provider Active Start: December 17, 2024 Dr. Bharathi Gray MD Other Provider Active S tart: December 17, 2024 Dr. Ike Dawkins MD Other Provider Active Start: December 17, 2024 Etienne Hernandez RECORDS MANAGEMENT MANAGER, RECORDS MANAGEMENT MANAGER-C Other Provider Active Start : December 17, 2024 Mariangel Rider PA, PA Other Provider Active Start: December 17, 2024 IRA Mullen Other Provider Active Start: December 17, 2024 Dr. Aaron Hardin MD Other Provider Active Start: December 17, 2024 Dr. Almas Casanova MD Other Provider Active Start: December 17, 2024 Dr. Ramana Ford MD Other Provider Active Star t: December 17, 2024 Dr. Montana Leone , Other Provider Active Start : December 17, 2024 Dr. Greg Lennon MD Other Provider Active Sta rt: December 17, 2024 Dr. Gibran Huizar MD Other Provider Active St art: December 17, 2024 Dr. Hugh Doss MD Other Provider Active S tart: December 17, 2024 Dr. Ani Smith MD Other Provider Active Start: December 17, 2024 Dr. Jak Corrigan MD Other Provider Active Start : December 17, 2024 Dr. Alfie Loyola MD Other Provider Active Start: December 17, 2024 Dr. Danny Prescott MD Other Provider Active Start : December 17, 2024 Dr. Jagruti Bunch MD Other Provider Active Star t: December 17, 2024 Dr. Renee Hernandez MD Other Provider Active Sta rt: December 17, 2024 Dr. Danyell Yang MD Other Provider Active Sta rt: December 17, 2024 Dr. Clemente Chao MD Other Provider Active Star t: December 17, 2024 Dr. Charles Carrington MD Other Provider Active St art: December 17, 2024 Dr. Jesus Sheffield MD Other Provider Active Star t: December 17, 2024 Dr. Tyrell Vasquez , Other Provider Active St art: December 17, 2024 Dr. Kelly Mix MD Other Provider Active Start: December 17, 2024 Dr. Fabiola Markham MD Other Provider Active St art: December 17, 2024 Dr. Scooby Beasley DO Other Provider Active Start: December 17, 2024 Dr. Varinder Medel MD Other Provider Active Star t: December 17, 2024 Dr. Leno Scherer MD Other Provider Active Sta rt: December 17, 2024 Team Status: Active Member Role Status Dates Dr. Zechariah Siddiqui MD Primary Care Provider Active Start: December 18, 2024 Dr. Oswaldo Farnces , Emergency Provider Active Start : December 18, 2024 Dr. Zhang Hester MD Admit Provider Active Star t: December 18, 2024 Dr. Zhang Hester MD Other Provider Active Star t: December 18, 2024 Dr. Delano Harris MD Other Provider Active Start: December 18, 2024 Dr. Eric Gutierrez DO Other Provider Active Start: December 18, 2024 Dr. Leyda Moore MD Other Provider Active Start: December 18, 2024 Dr. Harrison Morris MD Other Provider Active St art: December 18, 2024 Dr. Joss Cooper MD Other Provider Active Star t: December 18, 2024 Dr. Kareem Tellez MD Other Provider Active Sta rt: December 18, 2024 Dr. Pancho Costa MD Other Provider Active Star t: December 18, 2024 Dr. Eric Buenrostro MD Other Provider Active Start : December 18, 2024 Dr. Jaziel Lundberg MD Other Provider Active Star t: December 18, 2024 Dr. Basil Hunter MD Other Provider Active St art: December 18, 2024 Dr. Cecile June MD Other Provider Active Start: December 18, 2024 Dr. Bharathi Gray MD Other Provider Active S tart: December 18, 2024 Dr. Ike Dawkins MD Other Provider Active Start: December 18, 2024 Etienne Hernandez RECORDS MANAGEMENT MANAGER, RECORDS MANAGEMENT MANAGER-C Other Provider Active Start : December 18, 2024 Mariangel Rider PA, PA Other Provider Active Start: December 18, 2024 IRA Mullen Other Provider Active Start: December 18, 2024 Dr. Aaron Hardin MD Other Provider Active Start: December 18, 2024 Dr. Almas Casanova MD Other Provider Active Start: December 18, 2024 Dr. Ramana Ford MD Other Provider Active Star t: December 18, 2024 Dr. Montana Leone DO Other Provider Active Start : December 18, 2024 Dr. Greg Lennon MD Other Provider Active Sta rt: December 18, 2024 Dr. Gibran Huizar MD Other Provider Active St art: December 18, 2024 Dr. Hugh Doss MD Other Provider Active S tart: December 18, 2024 Dr. Ani Smith MD Other Provider Active Start: December 18, 2024 Dr. Jak Corrigan MD Other Provider Active Start : December 18, 2024 Dr. Alfie Loyola MD Other Provider Active Start: December 18, 2024 Dr. Danny Prescott MD Other Provider Active Start : December 18, 2024 Dr. Jagruti Bunch MD Other Provider Active Star t: December 18, 2024 Dr. Renee Hernandez MD Other Provider Active Sta rt: December 18, 2024 Dr. Danyell Yang MD Other Provider Active Sta rt: December 18, 2024 Dr. Clemente Chao MD Other Provider Active Star t: December 18, 2024 Dr. Charles Carrington MD Other Provider Active St art: December 18, 2024 Dr. Jesus Sheffield MD Other Provider Active Star t: December 18, 2024 Dr. Tyrell Vasquez DO Other Provider Active St art: December 18, 2024 Dr. Kelly Mix MD Other Provider Active Start: December 18, 2024 Dr. Fabiola Markham MD Other Provider Active St art: December 18, 2024 Dr. Scooby Beasley DO Other Provider Active Start: December 18, 2024 Dr. Varinder Medel MD Other Provider Active Star t: December 18, 2024 Dr. Leno Scherer MD Other Provider Active Sta rt: December 18, 2024 Dr. Adeline Rivera MD Attending Provider Active Start: December 18, 2024 Team Status: Active Member Role Status Dates Dr. Zechariah Siddiqui MD Primary Care Provider Active Start: December 18, 2024 Dr. Oswaldo Frances , Emergency Provider Active Start : December 18, 2024 Dr. Zhang Hester MD Admit Provider Active Star t: December 18, 2024 Dr. Zhang Hester MD Other Provider Active Star t: December 18, 2024 Dr. Delano Harris MD Other Provider Active Start: December 18, 2024 Dr. Eric Gutierrez DO Attending Provider Active Start: December 18, 2024 Dr. Eric Gutierrez DO Other Provider Active Start: December 18, 2024 Dr. Leyda Moore MD Other Provider Active Start: December 18, 2024 Dr. Harrison Morris MD Other Provider Active St art: December 18, 2024 Dr. Joss Cooper MD Other Provider Active Star t: December 18, 2024 Dr. Kareem Tellez MD Other Provider Active Sta rt: December 18, 2024 Dr. Pancho Costa MD Other Provider Active Star t: December 18, 2024 Dr. Eric Buenrostro MD Other Provider Active Start : December 18, 2024 Dr. Jaziel Lundberg MD Other Provider Active Star t: December 18, 2024 Dr. Basil Hunter MD Other Provider Active St art: December 18, 2024 Dr. Cecile June MD Other Provider Active Start: December 18, 2024 Dr. Bharathi Gray MD Other Provider Active S tart: December 18, 2024 Dr. Ike Dawkins MD Other Provider Active Start: December 18, 2024 Etienne Hernandez RECORDS MANAGEMENT MANAGER, RECORDS MANAGEMENT MANAGER-C Other Provider Active Start : December 18, 2024 Mraiangel ROTH, PA Other Provider Active Start: December 18, 2024 IRA Mullen Other Provider Active Start: December 18, 2024 Dr. Aaron Hardin MD Other Provider Active Start: December 18, 2024 Dr. Almas Casanova MD Other Provider Active Start: December 18, 2024 Dr. Ramana Ford MD Other Provider Active Star t: December 18, 2024 Dr. Montana Leone DO Other Provider Active Start : December 18, 2024 Dr. Greg Lennon MD Other Provider Active Sta rt: December 18, 2024 Dr. Gibran Huizar MD Other Provider Active St art: December 18, 2024 Dr. Hugh Doss MD Other Provider Active S tart: December 18, 2024 Dr. Ani Smith MD Other Provider Active Start: December 18, 2024 Dr. Jak Corrigan MD Other Provider Active Start : December 18, 2024 Dr. Alfie Loyola MD Other Provider Active Start: December 18, 2024 Dr. Danny Prescott MD Other Provider Active Start : December 18, 2024 Dr. Jagruti Bunch MD Other Provider Active Star t: December 18, 2024 Dr. Renee Hernandez MD Other Provider Active Sta rt: December 18, 2024 Dr. Danyell Yang MD Other Provider Active Sta rt: December 18, 2024 Dr. Clemente Chao MD Other Provider Active Star t: December 18, 2024 Dr. Charles Carrington MD Other Provider Active St art: December 18, 2024 Dr. Jesus Sheffield MD Other Provider Active Star t: December 18, 2024 Dr. Tyrell Vasquez , DO Other Provider Active St art: December 18, 2024 Dr. Kelly Mix MD Other Provider Active Start: December 18, 2024 Dr. Fabiola Markham MD Other Provider Active St art: December 18, 2024 Dr. Scooby Beasley , Other Provider Active Start: December 18, 2024 Dr. Varinder Medel MD Other Provider Active Star t: December 18, 2024 Dr. Leno Scherer MD Other Provider Active Sta rt: December 18, 2024 Team Status: Active Member Role Status Dates Dr. Zechariah Siddiqui MD Primary Care Provider Active Start: December 18, 2024 Dr. Oswaldo Frances , Emergency Provider Active Start : December 18, 2024 Dr. Zhang Hester MD Admit Provider Active Star t: December 18, 2024 Dr. Zhang Hester MD Other Provider Active Star t: December 18, 2024 Dr. Delano Harris MD Other Provider Active Start: December 18, 2024 Dr. Eric Gutierrez , Other Provider Active Start: December 18, 2024 Dr. Leyda Moore MD Other Provider Active Start: December 18, 2024 Dr. Harrison Morris MD Other Provider Active St art: December 18, 2024 Dr. Joss Cooper MD Other Provider Active Star t: December 18, 2024 Dr. Kareem Tellez MD Other Provider Active Sta rt: December 18, 2024 Dr. Pancho Costa MD Other Provider Active Star t: December 18, 2024 Dr. Eric Buenrostro MD Other Provider Active Start : December 18, 2024 Dr. Jaziel Lundberg MD Attending Provider Active Start: December 18, 2024 Dr. Jaziel Lundberg MD Other Provider Active Star t: December 18, 2024 Dr. Basil Hunter MD Other Provider Active St art: December 18, 2024 Dr. Cecile June MD Other Provider Active Start: December 18, 2024 Dr. Bharathi Gray MD Other Provider Active S tart: December 18, 2024 Dr. Ike Dawkins MD Other Provider Active Start: December 18, 2024 Etienne Hernandez RECORDS MANAGEMENT MANAGER, RECORDS MANAGEMENT MANAGER-C Other Provider Active Start : December 18, 2024 Mariangel Rider PA, PA Other Provider Active Start: December 18, 2024 IRA Mullen Other Provider Active Start: December 18, 2024 Dr. Aaron Hardin MD Other Provider Active Start: December 18, 2024 Dr. Almas Casanova MD Other Provider Active Start: December 18, 2024 Dr. Ramana Ford MD Other Provider Active Star t: December 18, 2024 Dr. Montana Leone DO Other Provider Active Start : December 18, 2024 Dr. Greg Lennon MD Other Provider Active Sta rt: December 18, 2024 Dr. Gibran Huizar MD Other Provider Active St art: December 18, 2024 Dr. Hugh Doss MD Other Provider Active S tart: December 18, 2024 Dr. Ani Smith MD Other Provider Active Start: December 18, 2024 Dr. Jak Corrigan MD Other Provider Active Start : December 18, 2024 Dr. Alfie Loyola MD Other Provider Active Start: December 18, 2024 Dr. Danny Prescott MD Other Provider Active Start : December 18, 2024 Dr. Jagruti Bunch MD Other Provider Active Star t: December 18, 2024 Dr. Renee Hernandez MD Other Provider Active Sta rt: December 18, 2024 Dr. Danyell Yang MD Other Provider Active Sta rt: December 18, 2024 Dr. Clemente Chao MD Other Provider Active Star t: December 18, 2024 Dr. Charles Carrington MD Other Provider Active St art: December 18, 2024 Dr. Jesus Sheffiled MD Other Provider Active Star t: December 18, 2024 Dr. Tyrell Vasquez DO Other Provider Active St art: December 18, 2024 Dr. Kelly Mix MD Other Provider Active Start: December 18, 2024 Dr. Fabiola Markham MD Other Provider Active St art: December 18, 2024 Dr. Scooby Beasley DO Other Provider Active Start: December 18, 2024 Dr. Varinder Medel MD Other Provider Active Star t: December 18, 2024 Dr. Leno Scherer MD Other Provider Active Sta rt: December 18, 2024 Team Status: Active Member Role Status Dates Dr. Zechariah Siddiqui MD Primary Care Provider Active Start: December 19, 2024 Dr. Oswaldo Frances DO Emergency Provider Active Start : December 19, 2024 Dr. Zhang Hester MD Admit Provider Active Star t: December 19, 2024 Dr. Zhang Hester MD Other Provider Active Star t: December 19, 2024 Dr. Delano Harris MD Other Provider Active Start: December 19, 2024 Dr. Eric Gutierrez DO Attending Provider Active Start: December 19, 2024 Dr. Eric Gutierrez DO Other Provider Active Start: December 19, 2024 Dr. Leyda Moore MD Other Provider Active Start: December 19, 2024 Dr. Harrison Morris MD Other Provider Active St art: December 19, 2024 Dr. Joss Cooper MD Other Provider Active Star t: December 19, 2024 Dr. Kareem Tellez MD Other Provider Active Sta rt: December 19, 2024 Dr. Pancho Costa MD Other Provider Active Star t: December 19, 2024 Dr. Eric Buenrostro MD Other Provider Active Start : December 19, 2024 Dr. Jaziel Lundberg MD Other Provider Active Star t: December 19, 2024 Dr. Basil Hunter MD Other Provider Active St art: December 19, 2024 Dr. Cecile June MD Other Provider Active Start: December 19, 2024 Dr. Bharathi Gray MD Other Provider Active S tart: December 19, 2024 Dr. Ike Dawkins MD Other Provider Active Start: December 19, 2024 Etienne Hernandez RECORDS MANAGEMENT MANAGER, RECORDS MANAGEMENT MANAGER-C Other Provider Active Start : December 19, 2024 Mariangel Rider PA, PA Other Provider Active Start: December 19, 2024 IRA Mullen Other Provider Active Start: December 19, 2024 Dr. Aaron Hardin MD Other Provider Active Start: December 19, 2024 Dr. Almas Casanova MD Other Provider Active Start: December 19, 2024 Dr. Ramana Ford MD Other Provider Active Star t: December 19, 2024 Dr. Montana Leone DO Other Provider Active Start : December 19, 2024 Dr. Greg Lennon MD Other Provider Active Sta rt: December 19, 2024 Dr. Gibran Huizar MD Other Provider Active St art: December 19, 2024 Dr. Hugh Doss MD Other Provider Active S tart: December 19, 2024 Dr. Ani Smith MD Other Provider Active Start: December 19, 2024 Dr. Jak Corrigan MD Other Provider Active Start : December 19, 2024 Dr. Alfie Loyola MD Other Provider Active Start: December 19, 2024 Dr. Danny Prescott MD Other Provider Active Start : December 19, 2024 Dr. Jagruti Bunch MD Other Provider Active Star t: December 19, 2024 Dr. Renee Hernandez MD Other Provider Active Sta rt: December 19, 2024 Dr. Danyell Yang MD Other Provider Active Sta rt: December 19, 2024 Dr. Clemente Chao MD Other Provider Active Star t: December 19, 2024 Dr. Charles Carrington MD Other Provider Active St art: December 19, 2024 Dr. Jesus Sheffield MD Other Provider Active Star t: December 19, 2024 Dr. Tyrell Vasquez DO Other Provider Active St art: December 19, 2024 Dr. Kelly Mix MD Other Provider Active Start: December 19, 2024 Dr. Fabiola Markham MD Other Provider Active St art: December 19, 2024 Dr. Scooby Beasley DO Other Provider Active Start: December 19, 2024 Dr. Varinder Medel MD Other Provider Active Star t: December 19, 2024 Dr. Leno Scherer MD Other Provider Active Sta rt: December 19, 2024 Team Status: Active Member Role Status Dates Dr. Zechariah Siddiqui MD Primary Care Provider Active Start: December 19, 2024 Dr. Oswaldo Frances , Emergency Provider Active Start : December 19, 2024 Dr. Zhang Hester MD Admit Provider Active Star t: December 19, 2024 Dr. Zhang Hester MD Other Provider Active Star t: December 19, 2024 Dr. Delano Harris MD Other Provider Active Start: December 19, 2024 Dr. Eric Gutierrez DO Other Provider Active Start: December 19, 2024 Dr. Leyda Moore MD Other Provider Active Start: December 19, 2024 Dr. Harrison Morris MD Other Provider Active St art: December 19, 2024 Dr. Joss Cooper MD Other Provider Active Star t: December 19, 2024 Dr. Kareem Tellez MD Other Provider Active Sta rt: December 19, 2024 Dr. Pancho Costa MD Other Provider Active Star t: December 19, 2024 Dr. Eric Buenrostro MD Other Provider Active Start : December 19, 2024 Dr. Jaziel Lundberg MD Attending Provider Active Start: December 19, 2024 Dr. Jaziel Lundberg MD Other Provider Active Star t: December 19, 2024 Dr. Basil Hunter MD Other Provider Active St art: December 19, 2024 Dr. Cecile June MD Other Provider Active Start: December 19, 2024 Dr. Bharathi Gray MD Other Provider Active S tart: December 19, 2024 Dr. Ike Dawkins MD Other Provider Active Start: December 19, 2024 Etienne Hernandez RECORDS MANAGEMENT MANAGER, RECORDS MANAGEMENT MANAGER-C Other Provider Active Start : December 19, 2024 Mariangel Rider PA, PA Other Provider Active Start: December 19, 2024 IRA Mullen Other Provider Active Start: December 19, 2024 Dr. Aaron Hardin MD Other Provider Active Start: December 19, 2024 Dr. Almas Casanova MD Other Provider Active Start: December 19, 2024 Dr. Ramana Ford MD Other Provider Active Star t: December 19, 2024 Dr. Montana Leone DO Other Provider Active Start : December 19, 2024 Dr. Greg Lennon MD Other Provider Active Sta rt: December 19, 2024 Dr. Gibran Huizar MD Other Provider Active St art: December 19, 2024 Dr. Hugh Doss MD Other Provider Active S tart: December 19, 2024 Dr. Ani Smith MD Other Provider Active Start: December 19, 2024 Dr. Jak Corrigan MD Other Provider Active Start : December 19, 2024 Dr. Alfie Loyola MD Other Provider Active Start: December 19, 2024 Dr. Danny Prescott MD Other Provider Active Start : December 19, 2024 Dr. Jagruti Bunch MD Other Provider Active Star t: December 19, 2024 Dr. Renee Hernandez MD Other Provider Active Sta rt: December 19, 2024 Dr. Danyell Yang MD Other Provider Active Sta rt: December 19, 2024 Dr. Clemente Chao MD Other Provider Active Star t: December 19, 2024 Dr. Charles Carrington MD Other Provider Active St art: December 19, 2024 Dr. Jesus Sheffield MD Other Provider Active Star t: December 19, 2024 Dr. Tyrell Vasquez DO Other Provider Active St art: December 19, 2024 Dr. Kelly Mix MD Other Provider Active Start: December 19, 2024 Dr. Fabiola Markham MD Other Provider Active St art: December 19, 2024 Dr. Scooby Beasley DO Other Provider Active Start: December 19, 2024 Dr. Varinder Medel MD Other Provider Active Star t: December 19, 2024 Dr. Leno Scherer MD Other Provider Active Sta rt: December 19, 2024 Team Status: Active Member Role Status Dates Dr. Zechariah Siddiqui MD Primary Care Provider Active Start: December 19, 2024 Dr. Oswaldo Frances DO Emergency Provider Active Start : December 19, 2024 Dr. Zhang Hester MD Admit Provider Active Star t: December 19, 2024 Dr. Zhang Hester MD Other Provider Active Star t: December 19, 2024 Dr. Delano Harris MD Other Provider Active Start: December 19, 2024 Dr. Eric Gutierrez DO Other Provider Active Start: December 19, 2024 Dr. Leyda Moore MD Other Provider Active Start: December 19, 2024 Dr. Harrison Morris MD Other Provider Active St art: December 19, 2024 Dr. Joss Cooper MD Other Provider Active Star t: December 19, 2024 Dr. Kareem Tellez MD Other Provider Active Sta rt: December 19, 2024 Dr. Pancho Costa MD Other Provider Active Star t: December 19, 2024 Dr. Eric Buenrostro MD Other Provider Active Start : December 19, 2024 Dr. Jaziel Lundberg MD Other Provider Active Star t: December 19, 2024 Dr. Basil Hunter MD Other Provider Active St art: December 19, 2024 Dr. Cecile June MD Other Provider Active Start: December 19, 2024 Dr. Bharathi Gray MD Other Provider Active S tart: December 19, 2024 Dr. Ike Dawkins MD Other Provider Active Start: December 19, 2024 Etienne Hernandez RECORDS MANAGEMENT MANAGER, RECORDS MANAGEMENT MANAGER-C Other Provider Active Start : December 19, 2024 Mariangel ROTH, PA Other Provider Active Start: December 19, 2024 IRA Mullen Other Provider Active Start: December 19, 2024 Dr. Aaron Hardin MD Other Provider Active Start: December 19, 2024 Dr. Almas Casanova MD Other Provider Active Start: December 19, 2024 Dr. Ramana Ford MD Other Provider Active Star t: December 19, 2024 Dr. Montana Leone DO Other Provider Active Start : December 19, 2024 Dr. Greg Lennon MD Other Provider Active Sta rt: December 19, 2024 Dr. Gibran Huizar MD Other Provider Active St art: December 19, 2024 Dr. Hugh Doss MD Other Provider Active S tart: December 19, 2024 Dr. Ani Smith MD Other Provider Active Start: December 19, 2024 Dr. Jak Corrigan MD Other Provider Active Start : December 19, 2024 Dr. Alfie Loyola MD Other Provider Active Start: December 19, 2024 Dr. Danny Prescott MD Other Provider Active Start : December 19, 2024 Dr. Jagruti Bunch MD Other Provider Active Star t: December 19, 2024 Dr. Renee Hernandez MD Other Provider Active Sta rt: December 19, 2024 Dr. Danyell Yang MD Other Provider Active Sta rt: December 19, 2024 Dr. Clemente Chao MD Other Provider Active Star t: December 19, 2024 Dr. Charles Carrington MD Other Provider Active St art: December 19, 2024 Dr. Jesus Sheffield MD Other Provider Active Star t: December 19, 2024 Dr. Tyrell Vasquez DO Other Provider Active St art: December 19, 2024 Dr. Kelly Mix MD Other Provider Active Start: December 19, 2024 Dr. Fabiola Markham MD Other Provider Active St art: December 19, 2024 Dr. Scooby Beasley DO Other Provider Active Start: December 19, 2024 Dr. Varinder Medel MD Other Provider Active Star t: December 19, 2024 Dr. Leno Scherer MD Other Provider Active Sta rt: December 19, 2024 Dr. Adeline Rivera MD Attending Provider Active Start: December 19, 2024 Team Status: Active Member Role Status Dates Dr. Zechariah Siddiqui MD Primary Care Provider Active Start: December 20, 2024 Dr. Oswaldo Frances DO Emergency Provider Active Start : December 20, 2024 Dr. Zhang Hester MD Admit Provider Active Star t: December 20, 2024 Dr. Zhang Hester MD Other Provider Active Star t: December 20, 2024 Dr. Delano Harris MD Other Provider Active Start: December 20, 2024 Dr. Leyda Moore MD Other Provider Active Start: December 20, 2024 Dr. Harrison Morris MD Other Provider Active St art: December 20, 2024 Dr. Joss Cooper MD Other Provider Active Star t: December 20, 2024 Dr. Kareem Tellez MD Other Provider Active Sta rt: December 20, 2024 Dr. Pancho Costa MD Other Provider Active Star t: December 20, 2024 Dr. Eric Buenrostro MD Other Provider Active Start : December 20, 2024 Dr. Jaziel Lundberg MD Other Provider Active Star t: December 20, 2024 Dr. Basil Hunter MD Attending Provider Active Start: December 20, 2024 Dr. Basil Hunter MD Other Provider Active St art: December 20, 2024 Dr. Cecile June MD Other Provider Active Start: December 20, 2024 Dr. Bharathi Gray MD Other Provider Active S tart: December 20, 2024 Dr. Ike Dawkins MD Other Provider Active Start: December 20, 2024 Etienne Hernandez RECORDS MANAGEMENT MANAGER, RECORDS MANAGEMENT MANAGER-C Other Provider Active Start : December 20, 2024 Mariangel Rider PA, PA Other Provider Active Start: December 20, 2024 IRA Mullen Other Provider Active Start: December 20, 2024 Dr. Aaron Hardin MD Other Provider Active Start: December 20, 2024 Dr. Almas Casanova MD Other Provider Active Start: December 20, 2024 Dr. Ramana Ford MD Other Provider Active Star t: December 20, 2024 Dr. Montana Leone DO Other Provider Active Start : December 20, 2024 Dr. Greg Lennon MD Other Provider Active Sta rt: December 20, 2024 Dr. Gibran Huizar MD Other Provider Active St art: December 20, 2024 Dr. Hugh Doss MD Other Provider Active S tart: December 20, 2024 Dr. Ani Smith MD Other Provider Active Start: December 20, 2024 Dr. Jak Corrigan MD Other Provider Active Start : December 20, 2024 Dr. Alfie Loyola MD Other Provider Active Start: December 20, 2024 Dr. Danny Prescott MD Other Provider Active Start : December 20, 2024 Dr. Jagruti Bunch MD Other Provider Active Star t: December 20, 2024 Dr. Renee Hernandez MD Other Provider Active Sta rt: December 20, 2024 Dr. Danyell Yang MD Other Provider Active Sta rt: December 20, 2024 Dr. Clemente Chao MD Other Provider Active Star t: December 20, 2024 Dr. Charles Carrington MD Other Provider Active St art: December 20, 2024 Dr. Jesus Sheffield MD Other Provider Active Star t: December 20, 2024 Dr. Tyrell Vasquez DO Other Provider Active St art: December 20, 2024 Dr. Kelly Mix MD Other Provider Active Start: December 20, 2024 Dr. Fabiola Markham MD Other Provider Active St art: December 20, 2024 Dr. Scooby Beasley Other Provider Active Start: December 20, 2024 Dr. Varinder Medel MD Other Provider Active Star t: December 20, 2024 Dr. Leno Scherer MD Other Provider Active Sta rt: December 20, 2024 Dr. Zechariah Plasencia , Other Provider Active Star t: December 20, 2024 Dr. Eric Gutierrez , Other Provider Active Start: December 20, 2024 Team Status: Active Member Role Status Dates Dr. Zechariah Siddiqui MD Primary Care Provider Active Start: December 20, 2024 Dr. Oswaldo Frances DO Emergency Provider Active Start : December 20, 2024 Dr. Zhang Hester MD Admit Provider Active Star t: December 20, 2024 Dr. Zhang Hester MD Other Provider Active Star t: December 20, 2024 Dr. Delano Harris MD Other Provider Active Start: December 20, 2024 Dr. Leyda Moore MD Other Provider Active Start: December 20, 2024 Dr. Harrison Morris MD Other Provider Active St art: December 20, 2024 Dr. Joss Cooper MD Other Provider Active Star t: December 20, 2024 Dr. Kareem Tellez MD Other Provider Active Sta rt: December 20, 2024 Dr. Pancho Costa MD Other Provider Active Star t: December 20, 2024 Dr. Eric Buenrostro MD Other Provider Active Start : December 20, 2024 Dr. Jaziel Lundberg MD Other Provider Active Star t: December 20, 2024 Dr. Basil Hunter MD Other Provider Active St art: December 20, 2024 Dr. Cecile June MD Other Provider Active Start: December 20, 2024 Dr. Bharathi Gray MD Other Provider Active S tart: December 20, 2024 Dr. Ike Dawkins MD Other Provider Active Start: December 20, 2024 Etienne Hernandez RECORDS MANAGEMENT MANAGER, RECORDS MANAGEMENT MANAGER-C Other Provider Active Start : December 20, 2024 Mariangel Rider PA, PA Other Provider Active Start: December 20, 2024 IRA Mullen Other Provider Active Start: December 20, 2024 Dr. Aaron Hardin MD Other Provider Active Start: December 20, 2024 Dr. Almas Casanova MD Other Provider Active Start: December 20, 2024 Dr. Ramana Ford MD Other Provider Active Star t: December 20, 2024 Dr. Montana Leone , Other Provider Active Start : December 20, 2024 Dr. Greg Lennon MD Other Provider Active Sta rt: December 20, 2024 Dr. Gibran Huizar MD Other Provider Active St art: December 20, 2024 Dr. Hugh Doss MD Other Provider Active S tart: December 20, 2024 Dr. Ani Smith MD Other Provider Active Start: December 20, 2024 Dr. Jak Corrigan MD Other Provider Active Start : December 20, 2024 Dr. Alfie Loyola MD Other Provider Active Start: December 20, 2024 Dr. Danny Prescott MD Other Provider Active Start : December 20, 2024 Dr. Jagruti Bunch MD Other Provider Active Star t: December 20, 2024 Dr. Renee Hernandez MD Other Provider Active Sta rt: December 20, 2024 Dr. Danyell Yang MD Other Provider Active Sta rt: December 20, 2024 Dr. Clemente Chao MD Other Provider Active Star t: December 20, 2024 Dr. Charles Carrington MD Other Provider Active St art: December 20, 2024 Dr. Jesus Sheffield MD Other Provider Active Star t: December 20, 2024 Dr. Tyrell Vasquez , Other Provider Active St art: December 20, 2024 Dr. Kelly Mix MD Other Provider Active Start: December 20, 2024 Dr. Fabiola Markham MD Other Provider Active St art: December 20, 2024 Dr. Scooby Beasley DO Other Provider Active Start: December 20, 2024 Dr. Varinder Medel MD Other Provider Active Star t: December 20, 2024 Dr. Leno Scherer MD Other Provider Active Sta rt: December 20, 2024 Dr. Zechariah Plasencia DO Attending Provider Active Start: December 20, 2024 Dr. Zechariah Plasencia DO Other Provider Active Star t: December 20, 2024 Dr. Eric Gutierrez DO Other Provider Active Start: December 20, 2024 Team Status: Active Member Role Status Dates Dr. Zechariah Siddiqui MD Primary Care Provider Active Start: December 20, 2024 Dr. Oswaldo Frances DO Emergency Provider Active Start : December 20, 2024 Dr. Zhang Hester MD Admit Provider Active Star t: December 20, 2024 Dr. Zhang Hester MD Other Provider Active Star t: December 20, 2024 Dr. Delano Harris MD Other Provider Active Start: December 20, 2024 Dr. Leyda Mooer MD Other Provider Active Start: December 20, 2024 Dr. Harrison Morris MD Other Provider Active St art: December 20, 2024 Dr. Joss Cooper MD Other Provider Active Star t: December 20, 2024 Dr. Kareem Tellez MD Other Provider Active Sta rt: December 20, 2024 Dr. Pancho Costa MD Other Provider Active Star t: December 20, 2024 Dr. Eric Bunerostro MD Other Provider Active Start : December 20, 2024 Dr. Jaziel Lundberg MD Other Provider Active Star t: December 20, 2024 Dr. Basil Hunter MD Other Provider Active St art: December 20, 2024 Dr. Cecile June MD Other Provider Active Start: December 20, 2024 Dr. Bharathi Gray MD Other Provider Active S tart: December 20, 2024 Dr. Ike Dawkins MD Other Provider Active Start: December 20, 2024 Etienne Hernandez RECORDS MANAGEMENT MANAGER, RECORDS MANAGEMENT MANAGER-C Other Provider Active Start : December 20, 2024 Mariangel Rider PA, PA Other Provider Active Start: December 20, 2024 IRA Mullen Other Provider Active Start: December 20, 2024 Dr. Aaron Hardin MD Other Provider Active Start: December 20, 2024 Dr. Almas Casanova MD Other Provider Active Start: December 20, 2024 Dr. Ramana Ford MD Other Provider Active Star t: December 20, 2024 Dr. Montana Leone DO Other Provider Active Start : December 20, 2024 Dr. Greg Lennon MD Other Provider Active Sta rt: December 20, 2024 Dr. Gibran Huizar MD Other Provider Active St art: December 20, 2024 Dr. Hugh Doss MD Other Provider Active S tart: December 20, 2024 Dr. Ani Smith MD Other Provider Active Start: December 20, 2024 Dr. Jak Corrigan MD Other Provider Active Start : December 20, 2024 Dr. Alfie Loyola MD Other Provider Active Start: December 20, 2024 Dr. Danny Prescott MD Other Provider Active Start : December 20, 2024 Dr. Jagruti Bunch MD Other Provider Active Star t: December 20, 2024 Dr. Renee Hernandez MD Other Provider Active Sta rt: December 20, 2024 Dr. aDnyell Yang MD Other Provider Active Sta rt: December 20, 2024 Dr. Clemente Chao MD Other Provider Active Star t: December 20, 2024 Dr. Charles Carrington MD Other Provider Active St art: December 20, 2024 Dr. Jesus Sheffield MD Other Provider Active Star t: December 20, 2024 Dr. Tyrell Vasquez DO Other Provider Active St art: December 20, 2024 Dr. Kelly Mix MD Other Provider Active Start: December 20, 2024 Dr. Fabiola Markham MD Other Provider Active St art: December 20, 2024 Dr. Scooby Beasley DO Other Provider Active Start: December 20, 2024 Dr. Varinder Medel MD Other Provider Active Star t: December 20, 2024 Dr. Leno Scherer MD Other Provider Active Sta rt: December 20, 2024 Dr. Zechariah Plasencia , Other Provider Active Star t: December 20, 2024 Dr. Eric Gutierrez , Other Provider Active Start: December 20, 2024 Dr. Adeline Rivera MD Attending Provider Active Start: December 20, 2024 Team Status: Active Member Role Status Dates Dr. Zechariah Siddiqui MD Primary Care Provider Active Start: December 21, 2024 Dr. Oswaldo Frances DO Emergency Provider Active Start : December 21, 2024 Dr. Zhang Hester MD Admit Provider Active Star t: December 21, 2024 Dr. Zhang Hester MD Other Provider Active Star t: December 21, 2024 Dr. Delano Harris MD Other Provider Active Start: December 21, 2024 Dr. Leyda Moore MD Other Provider Active Start: December 21, 2024 Dr. Harrison Morris MD Other Provider Active St art: December 21, 2024 Dr. Joss Cooper MD Other Provider Active Star t: December 21, 2024 Dr. Kareem Tellez MD Other Provider Active Sta rt: December 21, 2024 Dr. Pancho Costa MD Other Provider Active Star t: December 21, 2024 Dr. Eric Buenrostro MD Other Provider Active Start : December 21, 2024 Dr. Jaziel Lundberg MD Other Provider Active Star t: December 21, 2024 Dr. Basil Hunter MD Other Provider Active St art: December 21, 2024 Dr. Cecile June MD Other Provider Active Start: December 21, 2024 Dr. Bharathi Gray MD Other Provider Active S tart: December 21, 2024 Dr. Ike Dawkins MD Other Provider Active Start: December 21, 2024 Etienne Hernandez RECORDS MANAGEMENT MANAGER, RECORDS MANAGEMENT MANAGER-C Other Provider Active Start : December 21, 2024 Mariangel Rider PA, PA Other Provider Active Start: December 21, 2024 IRA Mullen Other Provider Active Start: December 21, 2024 Dr. Aaron Hardin MD Other Provider Active Start: December 21, 2024 Dr. Almas Casanova MD Other Provider Active Start: December 21, 2024 Dr. Ramana Ford MD Other Provider Active Star t: December 21, 2024 Dr. Montana Leone DO Other Provider Active Start : December 21, 2024 Dr. Greg Lennon MD Other Provider Active Sta rt: December 21, 2024 Dr. Gibran Huizar MD Other Provider Active St art: December 21, 2024 Dr. Hugh Doss MD Other Provider Active S tart: December 21, 2024 Dr. Ani Smith MD Other Provider Active Start: December 21, 2024 Dr. Jak Corrigan MD Other Provider Active Start : December 21, 2024 Dr. Alfie Loyola MD Other Provider Active Start: December 21, 2024 Dr. Danny Prescott MD Other Provider Active Start : December 21, 2024 Dr. Jagruti Bunch MD Other Provider Active Star t: December 21, 2024 Dr. Renee Hernandez MD Other Provider Active Sta rt: December 21, 2024 Dr. Danyell Yang MD Other Provider Active Sta rt: December 21, 2024 Dr. Clemente Chao MD Other Provider Active Star t: December 21, 2024 Dr. Charles Carrington MD Other Provider Active St art: December 21, 2024 Dr. Jesus Sheffield MD Other Provider Active Star t: December 21, 2024 Dr. Tyrell Vasquez , Other Provider Active St art: December 21, 2024 Dr. Kelly Mix MD Other Provider Active Start: December 21, 2024 Dr. Fabiola Markham MD Other Provider Active St art: December 21, 2024 Dr. Scooby Beasley , Other Provider Active Start: December 21, 2024 Dr. Varinder Medel MD Other Provider Active Star t: December 21, 2024 Dr. Leon Scherer MD Other Provider Active Sta rt: December 21, 2024 Dr. Zechariah Plasencia , Other Provider Active Star t: December 21, 2024 Dr. Eric Gutierrez DO Other Provider Active Start: December 21, 2024 Dr. Marie Grove MD Attending Provider Active Start: December 21, 2024 Team Status: Active Member Role Status Dates Dr. Zechariah Siddiqui MD Primary Care Provider Active Start: December 21, 2024 Dr. Oswaldo Frances DO Emergency Provider Active Start : December 21, 2024 Dr. Zhang Hester MD Admit Provider Active Star t: December 21, 2024 Dr. Zhang Hester MD Other Provider Active Star t: December 21, 2024 Dr. Delano Harris MD Other Provider Active Start: December 21, 2024 Dr. Leyda Moore MD Other Provider Active Start: December 21, 2024 Dr. Harrison Morris MD Other Provider Active St art: December 21, 2024 Dr. Joss Cooper MD Other Provider Active Star t: December 21, 2024 Dr. Kareem Tellez MD Other Provider Active Sta rt: December 21, 2024 Dr. Pancho Costa MD Other Provider Active Star t: December 21, 2024 Dr. Eric Buenrostro MD Other Provider Active Start : December 21, 2024 Dr. Jaziel Lundberg MD Other Provider Active Star t: December 21, 2024 Dr. Basil Hunter MD Attending Provider Active Start: December 21, 2024 Dr. Basil Hunter MD Other Provider Active St art: December 21, 2024 Dr. Cecile June MD Other Provider Active Start: December 21, 2024 Dr. Bharathi Gray MD Other Provider Active S tart: December 21, 2024 Dr. Ike Dawkins MD Other Provider Active Start: December 21, 2024 Etienne Hernandez RECORDS MANAGEMENT MANAGER, RECORDS MANAGEMENT MANAGER-C Other Provider Active Start : December 21, 2024 Mariangel Rider PA, PA Other Provider Active Start: December 21, 2024 IRA Mullen Other Provider Active Start: December 21, 2024 Dr. Aaron Hardin MD Other Provider Active Start: December 21, 2024 Dr. Almas Casanova MD Other Provider Active Start: December 21, 2024 Dr. Ramana Ford MD Other Provider Active Star t: December 21, 2024 Dr. Montana Leone DO Other Provider Active Start : December 21, 2024 Dr. Greg Lennon MD Other Provider Active Sta rt: December 21, 2024 Dr. Gibran Huizar MD Other Provider Active St art: December 21, 2024 Dr. Hugh Doss MD Other Provider Active S tart: December 21, 2024 Dr. Ani Smith MD Other Provider Active Start: December 21, 2024 Dr. Jak Corrigan MD Other Provider Active Start : December 21, 2024 Dr. Alfie Loyola MD Other Provider Active Start: December 21, 2024 Dr. Danny Prescott MD Other Provider Active Start : December 21, 2024 Dr. Jagruti Bunch MD Other Provider Active Star t: December 21, 2024 Dr. Renee Hernandez MD Other Provider Active Sta rt: December 21, 2024 Dr. Danyell Yang MD Other Provider Active Sta rt: December 21, 2024 Dr. Clemente Chao MD Other Provider Active Star t: December 21, 2024 Dr. Charles Carrington MD Other Provider Active St art: December 21, 2024 Dr. Jesus Sheffield MD Other Provider Active Star t: December 21, 2024 Dr. Tyrell Vasquez DO Other Provider Active St art: December 21, 2024 Dr. Kelly Mix MD Other Provider Active Start: December 21, 2024 Dr. Fabiola Markham MD Other Provider Active St art: December 21, 2024 Dr. Scooby Beasley DO Other Provider Active Start: December 21, 2024 Dr. Varinder Medel MD Other Provider Active Star t: December 21, 2024 Dr. Leno Scherer MD Other Provider Active Sta rt: December 21, 2024 Dr. Zechariah Plasencia , DO Other Provider Active Star t: December 21, 2024 Dr. Eric Gutierrez , Other Provider Active Start: December 21, 2024 Team Status: Active Member Role Status Dates Dr. Zechariah Siddiqui MD Primary Care Provider Active Start: December 21, 2024 Dr. Oswaldo Frances , Emergency Provider Active Start : December 21, 2024 Dr. Zhang Hester MD Admit Provider Active Star t: December 21, 2024 Dr. Zhang Hester MD Other Provider Active Star t: December 21, 2024 Dr. Delano Harris MD Other Provider Active Start: December 21, 2024 Dr. Leyda Moore MD Other Provider Active Start: December 21, 2024 Dr. Harrison Morris MD Other Provider Active St art: December 21, 2024 Dr. Joss Cooper MD Other Provider Active Star t: December 21, 2024 Dr. Kareem Tellez MD Other Provider Active Sta rt: December 21, 2024 Dr. Pancho Costa MD Other Provider Active Star t: December 21, 2024 Dr. Eric Buenrostro MD Other Provider Active Start : December 21, 2024 Dr. Jaziel Lundberg MD Other Provider Active Star t: December 21, 2024 Dr. Basil Hunter MD Other Provider Active St art: December 21, 2024 Dr. Cecile Jnue MD Other Provider Active Start: December 21, 2024 Dr. Bharathi Gray MD Other Provider Active S tart: December 21, 2024 Dr. Ike Dawkins MD Other Provider Active Start: December 21, 2024 Etienne Hernandez RECORDS MANAGEMENT MANAGER, RECORDS MANAGEMENT MANAGER-C Other Provider Active Start : December 21, 2024 Mariangel ROTH, PA Other Provider Active Start: December 21, 2024 IRA Mullen Other Provider Active Start: December 21, 2024 Dr. Aaron Hardin MD Other Provider Active Start: December 21, 2024 Dr. Almas Casanova MD Other Provider Active Start: December 21, 2024 Dr. Ramana Ford MD Other Provider Active Star t: December 21, 2024 Dr. Montana Leone DO Other Provider Active Start : December 21, 2024 Dr. Greg Lennon MD Other Provider Active Sta rt: December 21, 2024 Dr. Gibran Huizar MD Other Provider Active St art: December 21, 2024 Dr. Hugh Doss MD Other Provider Active S tart: December 21, 2024 Dr. Ani Smith MD Other Provider Active Start: December 21, 2024 Dr. Jak Corrigan MD Other Provider Active Start : December 21, 2024 Dr. Alfie Loyola MD Other Provider Active Start: December 21, 2024 Dr. Danny Prescott MD Other Provider Active Start : December 21, 2024 Dr. Jagruti Bunch MD Other Provider Active Star t: December 21, 2024 Dr. Renee Hernandez MD Other Provider Active Sta rt: December 21, 2024 Dr. Danyell Yang MD Other Provider Active Sta rt: December 21, 2024 Dr. Clemente Chao MD Other Provider Active Star t: December 21, 2024 Dr. Charles Carrington MD Other Provider Active St art: December 21, 2024 Dr. Jesus Sheffield MD Other Provider Active Star t: December 21, 2024 Dr. Tyrell Vasquez , Other Provider Active St art: December 21, 2024 Dr. Kelly Mix MD Other Provider Active Start: December 21, 2024 Dr. Fabiola Markham MD Other Provider Active St art: December 21, 2024 Dr. Scooby Beasley , Other Provider Active Start: December 21, 2024 Dr. Varinder Medel MD Other Provider Active Star t: December 21, 2024 Dr. Leno Scherer MD Other Provider Active Sta rt: December 21, 2024 Dr. Zechariah Plasencia , Other Provider Active Star t: December 21, 2024 Dr. Eric Gutierrez , Other Provider Active Start: December 21, 2024 Bianka ROTH PA-C Attending Provider Active Start: December 21, 2024 Team Status: Active Member Role Status Dates Dr. Zechariah Siddiqui MD Primary Care Provider Active Start: December 22, 2024 Dr. Oswaldo Frances , Emergency Provider Active Start : December 22, 2024 Dr. Zhang Hester MD Admit Provider Active Star t: December 22, 2024 Dr. Zhang Hester MD Other Provider Active Star t: December 22, 2024 Dr. Delano Harris MD Other Provider Active Start: December 22, 2024 Dr. Leyda Moore MD Other Provider Active Start: December 22, 2024 Dr. Harrison Morris MD Other Provider Active St art: December 22, 2024 Dr. Joss Cooper MD Other Provider Active Star t: December 22, 2024 Dr. Kareem Tellez MD Other Provider Active Sta rt: December 22, 2024 Dr. Pancho Costa MD Other Provider Active Star t: December 22, 2024 Dr. Eric Buenrostro MD Other Provider Active Start : December 22, 2024 Dr. Jaziel Lundberg MD Other Provider Active Star t: December 22, 2024 Dr. Basil Hunter MD Other Provider Active St art: December 22, 2024 Dr. Cecile June MD Other Provider Active Start: December 22, 2024 Dr. Bharathi Gray MD Other Provider Active S tart: December 22, 2024 Dr. Ike Dawkins MD Other Provider Active Start: December 22, 2024 Etienne Hernandez RECORDS MANAGEMENT MANAGER, RECORDS MANAGEMENT MANAGER-C Other Provider Active Start : December 22, 2024 Mariangel ROTH, PA Other Provider Active Start: December 22, 2024 IRA Mullen Other Provider Active Start: December 22, 2024 Dr. Aaron Hardin MD Other Provider Active Start: December 22, 2024 Dr. Almas Casanova MD Other Provider Active Start: December 22, 2024 Dr. Ramana Ford MD Other Provider Active Star t: December 22, 2024 Dr. Montana Leone DO Other Provider Active Start : December 22, 2024 Dr. Greg Lennon MD Other Provider Active Sta rt: December 22, 2024 Dr. Gibran Huizar MD Other Provider Active St art: December 22, 2024 Dr. Hugh Doss MD Other Provider Active S tart: December 22, 2024 Dr. Ani Smith MD Other Provider Active Start: December 22, 2024 Dr. Jak Corrigan MD Other Provider Active Start : December 22, 2024 Dr. Alfie Loyola MD Other Provider Active Start: December 22, 2024 Dr. Danny Prescott MD Other Provider Active Start : December 22, 2024 Dr. Jagruti Bunch MD Other Provider Active Star t: December 22, 2024 Dr. Renee Hernandez MD Other Provider Active Sta rt: December 22, 2024 Dr. Danyell Yang MD Other Provider Active Sta rt: December 22, 2024 Dr. Clemente Chao MD Other Provider Active Star t: December 22, 2024 Dr. Charles Carrington MD Other Provider Active St art: December 22, 2024 Dr. Jesus Sheffield MD Other Provider Active Star t: December 22, 2024 Dr. Tyrell Vasquez , Other Provider Active St art: December 22, 2024 Dr. Kelly Mix MD Other Provider Active Start: December 22, 2024 Dr. Fabiola Markham MD Other Provider Active St art: December 22, 2024 Dr. Scooby Beasley , Other Provider Active Start: December 22, 2024 Dr. Varinder Medel MD Other Provider Active Star t: December 22, 2024 Dr. Leno Scherer MD Other Provider Active Sta rt: December 22, 2024 Dr. Eric Gutierrez DO Other Provider Active Start: December 22, 2024 Dr. Zechariah Plasencia , Other Provider Active Star t: December 22, 2024 Dr. Marie Grove MD Attending Provider Active Start: December 22, 2024 Team Status: Active Member Role Status Dates Dr. Zechariah Siddiqui MD Primary Care Provider Active Start: December 22, 2024 Dr. Oswaldo Frances DO Emergency Provider Active Start : December 22, 2024 Dr. Zhang Hester MD Admit Provider Active Star t: December 22, 2024 Dr. Zhang Hester MD Other Provider Active Star t: December 22, 2024 Dr. Delano Harris MD Other Provider Active Start: December 22, 2024 Dr. Leyda Moore MD Other Provider Active Start: December 22, 2024 Dr. Harrison Morris MD Other Provider Active St art: December 22, 2024 Dr. Joss Cooper MD Other Provider Active Star t: December 22, 2024 Dr. Kareem Tellez MD Other Provider Active Sta rt: December 22, 2024 Dr. Pancho Costa MD Other Provider Active Star t: December 22, 2024 Dr. Eric Buenrostro MD Other Provider Active Start : December 22, 2024 Dr. Jaziel Lundberg MD Other Provider Active Star t: December 22, 2024 Dr. Basil Hunter MD Attending Provider Active Start: December 22, 2024 Dr. Basil Hunter MD Other Provider Active St art: December 22, 2024 Dr. Cecile June MD Other Provider Active Start: December 22, 2024 Dr. Bharathi Gray MD Other Provider Active S tart: December 22, 2024 Dr. Ike Dawkins MD Other Provider Active Start: December 22, 2024 Etienne Hernandez RECORDS MANAGEMENT MANAGER, RECORDS MANAGEMENT MANAGER-C Other Provider Active Start : December 22, 2024 Mariangel Rider PA, PA Other Provider Active Start: December 22, 2024 IRA Mullen Other Provider Active Start: December 22, 2024 Dr. Aaron Hardin MD Other Provider Active Start: December 22, 2024 Dr. Almas Casanova MD Other Provider Active Start: December 22, 2024 Dr. Ramana Ford MD Other Provider Active Star t: December 22, 2024 Dr. Montana Leone DO Other Provider Active Start : December 22, 2024 Dr. Greg Lennon MD Other Provider Active Sta rt: December 22, 2024 Dr. Gibran Huizar MD Other Provider Active St art: December 22, 2024 Dr. Hugh Doss MD Other Provider Active S tart: December 22, 2024 Dr. Ani Smith MD Other Provider Active Start: December 22, 2024 Dr. Jak Corrigan MD Other Provider Active Start : December 22, 2024 Dr. Alfie Loyola MD Other Provider Active Start: December 22, 2024 Dr. Danny Prescott MD Other Provider Active Start : December 22, 2024 Dr. Jagruti Bunch MD Other Provider Active Star t: December 22, 2024 Dr. Renee Hernandez MD Other Provider Active Sta rt: December 22, 2024 Dr. Danyell Yang MD Other Provider Active Sta rt: December 22, 2024 Dr. Clemente Chao MD Other Provider Active Star t: December 22, 2024 Dr. Charles Carrington MD Other Provider Active St art: December 22, 2024 Dr. Jesus Sheffield MD Other Provider Active Star t: December 22, 2024 Dr. Tyrell Vasquez , Other Provider Active St art: December 22, 2024 Dr. Kelly Mix MD Other Provider Active Start: December 22, 2024 Dr. Fabiola Markham MD Other Provider Active St art: December 22, 2024 Dr. Scooby Beasley , Other Provider Active Start: December 22, 2024 Dr. Varinder Medel MD Other Provider Active Star t: December 22, 2024 Dr. Leno Scherer MD Other Provider Active Sta rt: December 22, 2024 Dr. Eric Gutierrez DO Other Provider Active Start: December 22, 2024 Dr. Zecahriah Plasencia DO Other Provider Active Star t: December 22, 2024 Team Status: Active Member Role Status Dates Dr. Zechariah Siddiqui MD Primary Care Provider Active Start: December 22, 2024 Dr. Oswaldo Frances DO Emergency Provider Active Start : December 22, 2024 Dr. Zhang Hester MD Admit Provider Active Star t: December 22, 2024 Dr. Zhang Hester MD Other Provider Active Star t: December 22, 2024 Dr. Delano Harris MD Other Provider Active Start: December 22, 2024 Dr. Leyda Moore MD Other Provider Active Start: December 22, 2024 Dr. Harrison Morris MD Other Provider Active St art: December 22, 2024 Dr. Joss Cooper MD Other Provider Active Star t: December 22, 2024 Dr. Kareem Tellez MD Other Provider Active Sta rt: December 22, 2024 Dr. Pancho Costa MD Other Provider Active Star t: December 22, 2024 Dr. Eric Buenrostro MD Other Provider Active Start : December 22, 2024 Dr. Jaziel Lundberg MD Other Provider Active Star t: December 22, 2024 Dr. Basil Hunter MD Other Provider Active St art: December 22, 2024 Dr. Cecile June MD Other Provider Active Start: December 22, 2024 Dr. Bharathi Gray MD Other Provider Active S tart: December 22, 2024 Dr. Ike Dawkins MD Other Provider Active Start: December 22, 2024 Etienne Hernandez RECORDS MANAGEMENT MANAGER, RECORDS MANAGEMENT MANAGER-C Other Provider Active Start : December 22, 2024 Mariangel ROTH, PA Other Provider Active Start: December 22, 2024 IRA Mullen Other Provider Active Start: December 22, 2024 Dr. Aaron Hardin MD Other Provider Active Start: December 22, 2024 Dr. Almas Casanova MD Other Provider Active Start: December 22, 2024 Dr. Ramana Ford MD Other Provider Active Star t: December 22, 2024 Dr. Montana Leone DO Other Provider Active Start : December 22, 2024 Dr. Greg Lennon MD Other Provider Active Sta rt: December 22, 2024 Dr. Gibran Huizar MD Other Provider Active St art: December 22, 2024 Dr. Hugh Doss MD Other Provider Active S tart: December 22, 2024 Dr. Ani Smith MD Other Provider Active Start: December 22, 2024 Dr. Jak Corrigan MD Other Provider Active Start : December 22, 2024 Dr. Alfie Loyola MD Other Provider Active Start: December 22, 2024 Dr. Danny Prescott MD Other Provider Active Start : December 22, 2024 Dr. Jagruti Bunch MD Other Provider Active Star t: December 22, 2024 Dr. Renee Hernandez MD Other Provider Active Sta rt: December 22, 2024 Dr. Danyell Yang MD Other Provider Active Sta rt: December 22, 2024 Dr. Clemente Chao MD Other Provider Active Star t: December 22, 2024 Dr. Charles Carrington MD Other Provider Active St art: December 22, 2024 Dr. Jesus Sheffield MD Other Provider Active Star t: December 22, 2024 Dr. Tyrell Vasquez DO Other Provider Active St art: December 22, 2024 Dr. Kelly Mix MD Other Provider Active Start: December 22, 2024 Dr. Fabiola Markham MD Other Provider Active St art: December 22, 2024 Dr. Scooby Beasley DO Other Provider Active Start: December 22, 2024 Dr. Varinder Medel MD Other Provider Active Star t: December 22, 2024 Dr. Leno Scherer MD Other Provider Active Sta rt: December 22, 2024 Dr. Eric Gutierrez DO Other Provider Active Start: December 22, 2024 Dr. Zechariah Plasencia DO Other Provider Active Star t: December 22, 2024 Dr. Adeline Rivera MD Attending Provider Active Start: December 22, 2024 [place] Specialty Start Date End Date Self, Self PCP - General Other 12/23/24 Team Status: Active Member Role/Relationship Status Dates Dr. Zechariah Siddiqui MD Primary Care Provider Active Team Status: Inactive Member Role/Relationship Status Dates Dr. Zechariah Siddiqui MD Primary Care Provider Active Start: November 04, 2024 End: November 04, 2024 Dr. Zechariah Siddiqui MD Attending Provider Active St art: November 04, 2024 End: November 04, 2024 Dr. Zechariah Siddiqui MD Referring Provider Active St art: November 04, 2024 End: November 04, 2024 Team Status: Inactive Member Role/Relationship Status Dates Dr. Zechariah Siddiqui MD Primary Care Provider Active Start: November 11, 2024 End: November 11, 2024 Dr. Tee Mahmood MD Attending Provider Active Start: November 11, 2024 End: November 11, 2024 Dr. Tee Mahmood MD Referring Provider Active Start: November 11, 2024 End: November 11, 2024 Team Status: Inactive Member Role/Relationship Status Dates Dr. Zechariah Siddiqui MD Primary Care Provider Active Start: November 30, 2024 End: November 30, 2024 Dr. Zechariah Siddiqui MD Attending Provider Active St art: November 30, 2024 End: November 30, 2024 Dr. Zechariah Siddiqui MD Referring Provider Active St art: November 30, 2024 End: November 30, 2024 Team Status: Active Member Role/Relationship Status Dates Dr. Zechariah Siddiqui MD Primary Care Provider Active Start: December 13, 2024 Dr. Oswaldo Frances DO Emergency Provider Active Start : December 13, 2024 Dr. Zhang Hester MD Admit Provider Active Star t: December 13, 2024 Dr. Zhang Hester MD Attending Provider Active Start: December 13, 2024 Dr. Zhang Hester MD Other Provider Active Star t: December 13, 2024 Team Status: Inactive Member Role/Relationship Status Dates Dr. Zechariah Siddiqui MD Primary Care Provider Active Start: December 13, 2024 End: December 22, 2024 Dr. Oswaldo Frances DO Emergency Provider Active Start : December 13, 2024 End: December 22, 2024 Dr. Zhang Hester MD Admit Provider Active Star t: December 13, 2024 End: December 22, 2024 Dr. Zhang Hester MD Other Provider Active Star t: December 13, 2024 End: December 22, 2024 Dr. Delano Harris MD Other Provider Active Start: December 13, 2024 End: December 22, 2024 Dr. Leyda Moore MD Other Provider Active Start: December 13, 2024 End: December 22, 2024 Dr. Harrison Morris MD Other Provider Active St art: December 13, 2024 End: December 22, 2024 Dr. Joss Cooper MD Other Provider Active Star t: December 13, 2024 End: December 22, 2024 Dr. Kareem Tellez MD Other Provider Active Sta rt: December 13, 2024 End: December 22, 2024 Dr. Pancho Costa MD Other Provider Active Star t: December 13, 2024 End: December 22, 2024 Dr. Eric Buenrostro MD Other Provider Active Start : December 13, 2024 End: December 22, 2024 Dr. Jaziel Lundberg MD Other Provider Active Star t: December 13, 2024 End: December 22, 2024 Dr. Basil Hunter MD Other Provider Active St art: December 13, 2024 End: December 22, 2024 Dr. Cecile June MD Other Provider Active Start: December 13, 2024 End: December 22, 2024 Dr. Bharathi Gray MD Other Provider Active S tart: December 13, 2024 End: December 22, 2024 Dr. Ike Dawkins MD Other Provider Active Start: December 13, 2024 End: December 22, 2024 Etienne Hernandez RECORDS MANAGEMENT MANAGER, RECORDS MANAGEMENT MANAGER-C Other Provider Active Start : December 13, 2024 End: December 22, 2024 Mariangel Rider PA, PA Other Provider Active Start: December 13, 2024 End: December 22, 2024 IRA Mullen Other Provider Active Start: December 13, 2024 End: December 22, 2024 Dr. Aaron Hardin MD Other Provider Active Start: December 13, 2024 End: December 22, 2024 Dr. Almas Casanova MD Other Provider Active Start: December 13, 2024 End: December 22, 2024 Dr. Ramana Ford MD Other Provider Active Star t: December 13, 2024 End: December 22, 2024 Dr. Montana Leone DO Other Provider Active Start : December 13, 2024 End: December 22, 2024 Dr. Greg Lennon MD Other Provider Active Sta rt: December 13, 2024 End: December 22, 2024 Dr. Gibran Huizar MD Other Provider Active St art: December 13, 2024 End: December 22, 2024 Dr. Hugh Doss MD Other Provider Active S tart: December 13, 2024 End: December 22, 2024 Dr. Ani Smith MD Other Provider Active Start: December 13, 2024 End: December 22, 2024 Dr. Jak Corrigan MD Other Provider Active Start : December 13, 2024 End: December 22, 2024 Dr. Alfie Loyola MD Other Provider Active Start: December 13, 2024 End: December 22, 2024 Dr. Danny Prescott MD Other Provider Active Start : December 13, 2024 End: December 22, 2024 Dr. Jagruti Bunch MD Other Provider Active Star t: December 13, 2024 End: December 22, 2024 Dr. Renee Hernandez MD Other Provider Active Sta rt: December 13, 2024 End: December 22, 2024 Dr. Danyell Yang MD Other Provider Active Sta rt: December 13, 2024 End: December 22, 2024 Dr. Clemente Chao MD Other Provider Active Star t: December 13, 2024 End: December 22, 2024 Dr. Charles Carrington MD Other Provider Active St art: December 13, 2024 End: December 22, 2024 Dr. Jesus Sheffield MD Other Provider Active Star t: December 13, 2024 End: December 22, 2024 Dr. Tyrell Vasquez DO Other Provider Active St art: December 13, 2024 End: December 22, 2024 Dr. Kelly Mix MD Other Provider Active Start: December 13, 2024 End: December 22, 2024 Dr. Fabiola Markham MD Other Provider Active St art: December 13, 2024 End: December 22, 2024 Dr. Scooby Beasley DO Other Provider Active Start: December 13, 2024 End: December 22, 2024 Dr. Varinder Medel MD Other Provider Active Star t: December 13, 2024 End: December 22, 2024 Dr. Leno Scherer MD Other Provider Active Sta rt: December 13, 2024 End: December 22, 2024 Dr. Eric Gutierrez DO Other Provider Active Start: December 13, 2024 End: December 22, 2024 Dr. Zechariah Plasencia DO Attending Provider Active Start: December 13, 2024 End: December 22, 2024 Team Status: Active Member Role/Relationship Status Dates Dr. Zechariah Siddiqui MD Primary Care Provider Active Start: December 14, 2024 Dr. Jaziel Lundberg MD Attending Provider Active Start: December 14, 2024 Team Status: Active Member Role/Relationship Status Dates Dr. Zechariah Siddiqui MD Primary Care Provider Active Start: December 14, 2024 Dr. Oswaldo Frances DO Emergency Provider Active Start : December 14, 2024 Dr. Zhang Hester MD Admit Provider Active Star t: December 14, 2024 Dr. Zhang Hester MD Other Provider Active Star t: December 14, 2024 Dr. Delano Harris MD Other Provider Active Start: December 14, 2024 Dr. Eric Gutierrez DO Attending Provider Active Start: December 14, 2024 Dr. Eric Gutierrez DO Other Provider Active Start: December 14, 2024 Dr. Leyda Moore MD Other Provider Active Start: December 14, 2024 Dr. Harrison Morris MD Other Provider Active St art: December 14, 2024 Dr. Joss Cooper MD Other Provider Active Star t: December 14, 2024 Dr. Kareem Tellez MD Other Provider Active Sta rt: December 14, 2024 Dr. Pancho Costa MD Other Provider Active Star t: December 14, 2024 Dr. Eric Buenrostro MD Other Provider Active Start : December 14, 2024 Dr. Jaziel Lundberg MD Other Provider Active Star t: December 14, 2024 Dr. Basil Hunter MD Other Provider Active St art: December 14, 2024 Dr. Cecile June MD Other Provider Active Start: December 14, 2024 Dr. Bharathi Gray MD Other Provider Active S tart: December 14, 2024 Dr. Ike Dawkins MD Other Provider Active Start: December 14, 2024 Etienne Nguyen Mary RECORDS MANAGEMENT MANAGER, RECORDS MANAGEMENT MANAGER-C Other Provider Active Start : December 14, 2024 Mariangel Rider PA, PA Other Provider Active Start: December 14, 2024 IRA Mullen Other Provider Active Start: December 14, 2024 Team Status: Active Member Role/Relationship Status Dates Dr. Zechariah Siddiqui MD Primary Care Provider Active Start: December 14, 2024 Dr. Oswaldo Frances DO Emergency Provider Active Start : December 14, 2024 Dr. Zhang Hester MD Admit Provider Active Star t: December 14, 2024 Dr. Zhang Hester MD Other Provider Active Star t: December 14, 2024 Dr. Delano Harris MD Attending Provider Active Start: December 14, 2024 Dr. Delano Harris MD Other Provider Active Start: December 14, 2024 Dr. Eric Gutierrez DO Other Provider Active Start: December 14, 2024 Dr. Leyda Moore MD Other Provider Active Start: December 14, 2024 Dr. Harrison Morris MD Other Provider Active St art: December 14, 2024 Dr. Joss Cooper MD Other Provider Active Star t: December 14, 2024 Dr. Kareem Tellez MD Other Provider Active Sta rt: December 14, 2024 Dr. Pancho Costa MD Other Provider Active Star t: December 14, 2024 Dr. Eric Buenrostro MD Other Provider Active Start : December 14, 2024 Dr. Jaziel Lundberg MD Other Provider Active Star t: December 14, 2024 Dr. Basil Hunter MD Other Provider Active St art: December 14, 2024 Dr. Cecile June MD Other Provider Active Start: December 14, 2024 Dr. Bharathi Gray MD Other Provider Active S tart: December 14, 2024 Dr. Ike Dawkins MD Other Provider Active Start: December 14, 2024 Etienne Hernandez RECORDS MANAGEMENT MANAGER, RECORDS MANAGEMENT MANAGER-C Other Provider Active Start : December 14, 2024 Mariangel Rider PA, PA Other Provider Active Start: December 14, 2024 IRA Mullen Other Provider Active Start: December 14, 2024 Dr. Zechariah Plasencia DO Referring Provider Active Start: December 14, 2024 Team Status: Active Member Role/Relationship Status Dates Dr. Zechariah Siddiqui MD Primary Care Provider Active Start: December 15, 2024 Dr. Oswaldo Frances DO Emergency Provider Active Start : December 15, 2024 Dr. Zhang Hester MD Admit Provider Active Star t: December 15, 2024 Dr. Zhang Hester MD Other Provider Active Star t: December 15, 2024 Dr. Delano Harris MD Attending Provider Active Start: December 15, 2024 Dr. Delano Harris MD Other Provider Active Start: December 15, 2024 Dr. Eric Gutierrez DO Other Provider Active Start: December 15, 2024 Dr. Leyda Moore MD Other Provider Active Start: December 15, 2024 Dr. Harrison Morris MD Other Provider Active St art: December 15, 2024 Dr. Joss Cooper MD Other Provider Active Star t: December 15, 2024 Dr. Kareem Tellez MD Other Provider Active Sta rt: December 15, 2024 Dr. Pancho Costa MD Other Provider Active Star t: December 15, 2024 Dr. Eric Buenrostro MD Other Provider Active Start : December 15, 2024 Dr. Jaziel Lundberg MD Other Provider Active Star t: December 15, 2024 Dr. Basil Hunter MD Other Provider Active St art: December 15, 2024 Dr. Cecile June MD Other Provider Active Start: December 15, 2024 Dr. Bharathi Gray MD Other Provider Active S tart: December 15, 2024 Dr. Ike Dawkins MD Other Provider Active Start: December 15, 2024 Etienne Hernandez RECORDS MANAGEMENT MANAGER, RECORDS MANAGEMENT MANAGER-C Other Provider Active Start : December 15, 2024 Mariangel Rider PA, PA Other Provider Active Start: December 15, 2024 IRA Mullen Other Provider Active Start: December 15, 2024 Team Status: Active Member Role/Relationship Status Dates Dr. Zechariah Siddiqui MD Primary Care Provider Active Start: December 15, 2024 Dr. Oswaldo Frances DO Emergency Provider Active Start : December 15, 2024 Dr. Zhang Hester MD Admit Provider Active Star t: December 15, 2024 Dr. Zhang Hester MD Other Provider Active Star t: December 15, 2024 Dr. Delano Harris MD Other Provider Active Start: December 15, 2024 Dr. Eric Gutierrez DO Attending Provider Active Start: December 15, 2024 Dr. Eric Gutierrez DO Other Provider Active Start: December 15, 2024 Dr. Leyda Moore MD Other Provider Active Start: December 15, 2024 Dr. Harrison Morris MD Other Provider Active St art: December 15, 2024 Dr. Joss Cooper MD Other Provider Active Star t: December 15, 2024 Dr. Kareem Tellez MD Other Provider Active Sta rt: December 15, 2024 Dr. Pancho Costa MD Other Provider Active Star t: December 15, 2024 Dr. Eric Buenrostro MD Other Provider Active Start : December 15, 2024 Dr. Jaziel Lundberg MD Other Provider Active Star t: December 15, 2024 Dr. Basil Hunter MD Other Provider Active St art: December 15, 2024 Dr. Cecile June MD Other Provider Active Start: December 15, 2024 Dr. Bharathi Gray MD Other Provider Active S tart: December 15, 2024 Dr. Ike Dawkins MD Other Provider Active Start: December 15, 2024 Etienne Hernandez RECORDS MANAGEMENT MANAGER, RECORDS MANAGEMENT MANAGER-C Other Provider Active Start : December 15, 2024 Mariangel Rider PA, PA Other Provider Active Start: December 15, 2024 IRA Mullen Other Provider Active Start: December 15, 2024 Team Status: Active Member Role/Relationship Status Dates Dr. Zechariah Siddiqui MD Primary Care Provider Active Start: December 15, 2024 Dr. Oswaldo Frances DO Emergency Provider Active Start : December 15, 2024 Dr. Zhang Hester MD Admit Provider Active Star t: December 15, 2024 Dr. Zhang Hester MD Other Provider Active Star t: December 15, 2024 Dr. Delano Harris MD Referring Provider Active Start: December 15, 2024 Dr. Delano Harris MD Other Provider Active Start: December 15, 2024 Dr. Eric Gutierrez DO Other Provider Active Start: December 15, 2024 Dr. Leyda Moore MD Other Provider Active Start: December 15, 2024 Dr. Harrison Morris MD Other Provider Active St art: December 15, 2024 Dr. Joss Cooper MD Other Provider Active Star t: December 15, 2024 Dr. Kareem Tellez MD Other Provider Active Sta rt: December 15, 2024 Dr. Pancho Costa MD Other Provider Active Star t: December 15, 2024 Dr. Eric Buenrostro MD Other Provider Active Start : December 15, 2024 Dr. Jaziel Lundberg MD Other Provider Active Star t: December 15, 2024 Dr. Basil Hunter MD Other Provider Active St art: December 15, 2024 Dr. Cecile June MD Other Provider Active Start: December 15, 2024 Dr. Bharathi Gray MD Other Provider Active S tart: December 15, 2024 Dr. Ike Dawkins MD Other Provider Active Start: December 15, 2024 Etienne Hernandez RECORDS MANAGEMENT MANAGER, RECORDS MANAGEMENT MANAGER-C Other Provider Active Start : December 15, 2024 Mariangel ROTH, PA Other Provider Active Start: December 15, 2024 IRA Mullen Other Provider Active Start: December 15, 2024 Dr. Montana Leone , Attending Provider Active S tart: December 15, 2024 Team Status: Active Member Role/Relationship Status Dates Dr. Zechariah Siddiqui MD Primary Care Provider Active Start: December 15, 2024 Dr. Oswaldo Frances , Emergency Provider Active Start : December 15, 2024 Dr. Zhang Hester MD Admit Provider Active Star t: December 15, 2024 Dr. Zhang Hester MD Other Provider Active Star t: December 15, 2024 Dr. Delano Harris MD Other Provider Active Start: December 15, 2024 Dr. Eric Gutierrez DO Other Provider Active Start: December 15, 2024 Dr. Leyda Moore MD Other Provider Active Start: December 15, 2024 Dr. Harrison Morris MD Other Provider Active St art: December 15, 2024 Dr. Joss Cooper MD Other Provider Active Star t: December 15, 2024 Dr. Kareem Tellez MD Other Provider Active Sta rt: December 15, 2024 Dr. Pancho Costa MD Other Provider Active Star t: December 15, 2024 Dr. Eric Buenrostro MD Other Provider Active Start : December 15, 2024 Dr. Jaziel Lundberg MD Attending Provider Active Start: December 15, 2024 Dr. Jaziel Lundberg MD Other Provider Active Star t: December 15, 2024 Dr. Basil Hunter MD Other Provider Active St art: December 15, 2024 Dr. Cecile June MD Other Provider Active Start: December 15, 2024 Dr. Bharathi Gray MD Other Provider Active S tart: December 15, 2024 Dr. Ike Dawkins MD Other Provider Active Start: December 15, 2024 Etienne Hernandez RECORDS MANAGEMENT MANAGER, RECORDS MANAGEMENT MANAGER-C Other Provider Active Start : December 15, 2024 Mariangel Rider PA, PA Other Provider Active Start: December 15, 2024 IRA Mullen Other Provider Active Start: December 15, 2024 Dr. Aaron Hardin MD Other Provider Active Start: December 15, 2024 Dr. Almas Casanova MD Other Provider Active Start: December 15, 2024 Dr. Ramana Ford MD Other Provider Active Star t: December 15, 2024 Dr. Montana Leone DO Other Provider Active Start : December 15, 2024 Dr. Greg Lennon MD Other Provider Active Sta rt: December 15, 2024 Dr. Gibran Huizar MD Other Provider Active St art: December 15, 2024 Dr. Hugh Doss MD Other Provider Active S tart: December 15, 2024 Dr. Ani Smith MD Other Provider Active Start: December 15, 2024 Dr. Jak Corrigan MD Other Provider Active Start : December 15, 2024 Dr. Alfie Loyola MD Other Provider Active Start: December 15, 2024 Dr. Danny Prescott MD Other Provider Active Start : December 15, 2024 Dr. Jagruti Bunch MD Other Provider Active Star t: December 15, 2024 Dr. Renee Hernandez MD Other Provider Active Sta rt: December 15, 2024 Dr. Danyell Yang MD Other Provider Active Sta rt: December 15, 2024 Dr. Clemente Chao MD Other Provider Active Star t: December 15, 2024 Dr. Charles Carrington MD Other Provider Active St art: December 15, 2024 Dr. Jesus Sheffield MD Other Provider Active Star t: December 15, 2024 Dr. Tyrell Vasquez , Other Provider Active St art: December 15, 2024 Dr. Kelly Mix MD Other Provider Active Start: December 15, 2024 Dr. Fabiola Markham MD Other Provider Active St art: December 15, 2024 Dr. Scooby Beasley , Other Provider Active Start: December 15, 2024 Dr. Varinder Medel MD Other Provider Active Star t: December 15, 2024 Dr. Leno Scherer MD Other Provider Active Sta rt: December 15, 2024 Team Status: Active Member Role/Relationship Status Dates Dr. Zechariah Siddiqui MD Primary Care Provider Active Start: December 16, 2024 Dr. Oswaldo Frances , Emergency Provider Active Start : December 16, 2024 Dr. Zhang Hester MD Admit Provider Active Star t: December 16, 2024 Dr. Zhang Hester MD Other Provider Active Star t: December 16, 2024 Dr. Delano Harris MD Referring Provider Active Start: December 16, 2024 Dr. Delano Harris MD Other Provider Active Start: December 16, 2024 Dr. Eric Gutierrez , Other Provider Active Start: December 16, 2024 Dr. Leyda Moore MD Other Provider Active Start: December 16, 2024 Dr. Harrison Morris MD Other Provider Active St art: December 16, 2024 Dr. Joss Cooper MD Other Provider Active Star t: December 16, 2024 Dr. Kareem Tellez MD Other Provider Active Sta rt: December 16, 2024 Dr. Pancho Costa MD Other Provider Active Star t: December 16, 2024 Dr. Eric Buenrostro MD Other Provider Active Start : December 16, 2024 Dr. Jaziel Lundberg MD Other Provider Active Star t: December 16, 2024 Dr. Basil Hunter MD Other Provider Active St art: December 16, 2024 Dr. Cecile June MD Other Provider Active Start: December 16, 2024 Dr. Bharathi Gray MD Other Provider Active S tart: December 16, 2024 Dr. Ike Dawkins MD Other Provider Active Start: December 16, 2024 Etienne Hernandez RECORDS MANAGEMENT MANAGER, RECORDS MANAGEMENT MANAGER-C Other Provider Active Start : December 16, 2024 Mariangel Rider PA, PA Other Provider Active Start: December 16, 2024 IRA Mullen Other Provider Active Start: December 16, 2024 Dr. Aaron Hardin MD Other Provider Active Start: December 16, 2024 Dr. Almas Casanova MD Other Provider Active Start: December 16, 2024 Dr. Ramana Ford MD Other Provider Active Star t: December 16, 2024 Dr. Montana Leone , Attending Provider Active S tart: December 16, 2024 Dr. Montana Leone , Other Provider Active Start : December 16, 2024 Dr. Greg Lennon MD Other Provider Active Sta rt: December 16, 2024 Dr. Gibran Huizar MD Other Provider Active St art: December 16, 2024 Dr. Hugh Doss MD Other Provider Active S tart: December 16, 2024 Dr. Ani Smith MD Other Provider Active Start: December 16, 2024 Dr. Jak Corrigan MD Other Provider Active Start : December 16, 2024 Dr. Alfie Loyola MD Other Provider Active Start: December 16, 2024 Dr. Danny Prescott MD Other Provider Active Start : December 16, 2024 Dr. Jagruti Bunch MD Other Provider Active Star t: December 16, 2024 Dr. Renee Hernandez MD Other Provider Active Sta rt: December 16, 2024 Dr. Danyell Yang MD Other Provider Active Sta rt: December 16, 2024 Dr. Clemente Chao MD Other Provider Active Star t: December 16, 2024 Dr. Charles Carrington MD Other Provider Active St art: December 16, 2024 Dr. Jesus Sheffield MD Other Provider Active Star t: December 16, 2024 Dr. Tyrell Vasquez , DO Other Provider Active St art: December 16, 2024 Dr. Kelly Mix MD Other Provider Active Start: December 16, 2024 Dr. Fabiola Markham MD Other Provider Active St art: December 16, 2024 Dr. Scooby Beasley , Other Provider Active Start: December 16, 2024 Dr. Varinder Medel MD Other Provider Active Star t: December 16, 2024 Dr. Leno Scherer MD Other Provider Active Sta rt: December 16, 2024 Team Status: Active Member Role/Relationship Status Dates Dr. Zechariah Siddiqui MD Primary Care Provider Active Start: December 16, 2024 Dr. Oswaldo Frances DO Emergency Provider Active Start : December 16, 2024 Dr. Zhang Hester MD Admit Provider Active Star t: December 16, 2024 Dr. Zhang Hester MD Other Provider Active Star t: December 16, 2024 Dr. Delano Harris MD Other Provider Active Start: December 16, 2024 Dr. Eric Gutierrez DO Attending Provider Active Start: December 16, 2024 Dr. Eric Gutierrez DO Other Provider Active Start: December 16, 2024 Dr. Leyda Moore MD Other Provider Active Start: December 16, 2024 Dr. Harrison Morris MD Other Provider Active St art: December 16, 2024 Dr. Joss Cooper MD Other Provider Active Star t: December 16, 2024 Dr. Kareem Tellez MD Other Provider Active Sta rt: December 16, 2024 Dr. Pancho Costa MD Other Provider Active Star t: December 16, 2024 Dr. Eric Buenrostro MD Other Provider Active Start : December 16, 2024 Dr. Jaziel Lundberg MD Other Provider Active Star t: December 16, 2024 Dr. Basil Hunter MD Other Provider Active St art: December 16, 2024 Dr. Cecile June MD Other Provider Active Start: December 16, 2024 Dr. Bharathi Gray MD Other Provider Active S tart: December 16, 2024 Dr. Ike Dawkins MD Other Provider Active Start: December 16, 2024 Etienne Hernandez RECORDS MANAGEMENT MANAGER, RECORDS MANAGEMENT MANAGER-C Other Provider Active Start : December 16, 2024 Mariangel Rider PA, PA Other Provider Active Start: December 16, 2024 IRA Mullen Other Provider Active Start: December 16, 2024 Dr. Aaron Hardin MD Other Provider Active Start: December 16, 2024 Dr. Almas Casanova MD Other Provider Active Start: December 16, 2024 Dr. Ramana Ford MD Other Provider Active Star t: December 16, 2024 Dr. Montana Leone , Other Provider Active Start : December 16, 2024 Dr. Greg Lennon MD Other Provider Active Sta rt: December 16, 2024 Dr. Gibran Huizar MD Other Provider Active St art: December 16, 2024 Dr. Hugh Doss MD Other Provider Active S tart: December 16, 2024 Dr. Ani Smith MD Other Provider Active Start: December 16, 2024 Dr. Jak Corrigan MD Other Provider Active Start : December 16, 2024 Dr. Alfie Loyola MD Other Provider Active Start: December 16, 2024 Dr. Danny Prescott MD Other Provider Active Start : December 16, 2024 Dr. Jagruti Bunch MD Other Provider Active Star t: December 16, 2024 Dr. Renee Hernandez MD Other Provider Active Sta rt: December 16, 2024 Dr. Danyell Yang MD Other Provider Active Sta rt: December 16, 2024 Dr. Clemente Chao MD Other Provider Active Star t: December 16, 2024 Dr. Charles Carrington MD Other Provider Active St art: December 16, 2024 Dr. Jesus Sheffield MD Other Provider Active Star t: December 16, 2024 Dr. Tyrell Vasquez , DO Other Provider Active St art: December 16, 2024 Dr. Kelly Mix MD Other Provider Active Start: December 16, 2024 Dr. Fabiola Markham MD Other Provider Active St art: December 16, 2024 Dr. Scooby Beasley , DO Other Provider Active Start: December 16, 2024 Dr. Varinder Medel MD Other Provider Active Star t: December 16, 2024 Dr. Leno Scherer MD Other Provider Active Sta rt: December 16, 2024 Team Status: Active Member Role/Relationship Status Dates Dr. Zechariah Siddiqui MD Primary Care Provider Active Start: December 16, 2024 Dr. Oswaldo Frances , DO Emergency Provider Active Start : December 16, 2024 Dr. Zhang Hester MD Admit Provider Active Star t: December 16, 2024 Dr. Zhang Hester MD Other Provider Active Star t: December 16, 2024 Dr. Delano Harris MD Other Provider Active Start: December 16, 2024 Dr. Eric Gutierrez , Other Provider Active Start: December 16, 2024 Dr. Leyda Moore MD Other Provider Active Start: December 16, 2024 Dr. Harrison Morris MD Other Provider Active St art: December 16, 2024 Dr. Joss Cooper MD Other Provider Active Star t: December 16, 2024 Dr. Kareem Tellez MD Other Provider Active Sta rt: December 16, 2024 Dr. Pancho Costa MD Other Provider Active Star t: December 16, 2024 Dr. Eric Buenrostro MD Other Provider Active Start : December 16, 2024 Dr. Jaziel Lundberg MD Other Provider Active Star t: December 16, 2024 Dr. Basil Hunter MD Other Provider Active St art: December 16, 2024 Dr. Cecile June MD Other Provider Active Start: December 16, 2024 Dr. Bharathi Gray MD Other Provider Active S tart: December 16, 2024 Dr. Ike Dawkins MD Other Provider Active Start: December 16, 2024 Etienne Hernandez RECORDS MANAGEMENT MANAGER, RECORDS MANAGEMENT MANAGER-C Other Provider Active Start : December 16, 2024 Mariangel Rider PA, PA Other Provider Active Start: December 16, 2024 IRA Mullen Other Provider Active Start: December 16, 2024 Dr. Aaron Hardin MD Other Provider Active Start: December 16, 2024 Dr. Almas Casanova MD Other Provider Active Start: December 16, 2024 Dr. Ramana Ford MD Other Provider Active Star t: December 16, 2024 Dr. Montana Leone , DO Other Provider Active Start : December 16, 2024 Dr. Greg Lennon MD Other Provider Active Sta rt: December 16, 2024 Dr. Gibran Huizar MD Other Provider Active St art: December 16, 2024 Dr. Hugh Doss MD Other Provider Active S tart: December 16, 2024 Dr. Ani Smith MD Other Provider Active Start: December 16, 2024 Dr. Jak Corrigan MD Other Provider Active Start : December 16, 2024 Dr. Alfie Loyola MD Other Provider Active Start: December 16, 2024 Dr. Danny Prescott MD Other Provider Active Start : December 16, 2024 Dr. Jagruti Bunch MD Other Provider Active Star t: December 16, 2024 Dr. Renee Hernandez MD Other Provider Active Sta rt: December 16, 2024 Dr. Danyell Yang MD Other Provider Active Sta rt: December 16, 2024 Dr. Clemente Chao MD Other Provider Active Star t: December 16, 2024 Dr. Charles Carrington MD Other Provider Active St art: December 16, 2024 Dr. Jesus Sheffield MD Other Provider Active Star t: December 16, 2024 Dr. Tyrell Vasquez , Other Provider Active St art: December 16, 2024 Dr. Kelly Mix MD Other Provider Active Start: December 16, 2024 Dr. Fabiola Markham MD Other Provider Active St art: December 16, 2024 Dr. Scooby Beasley , Other Provider Active Start: December 16, 2024 Dr. Varinder Medel MD Other Provider Active Star t: December 16, 2024 Dr. Leno Scherer MD Other Provider Active Sta rt: December 16, 2024 Dr. Basil Ramírez MD Attending Provider Active Start: December 16, 2024 Team Status: Active Member Role/Relationship Status Dates Dr. Zechariah Siddiqui MD Primary Care Provider Active Start: December 16, 2024 Dr. Oswaldo Frances , Emergency Provider Active Start : December 16, 2024 Dr. Zhang Hester MD Admit Provider Active Star t: December 16, 2024 Dr. Zhang Hester MD Other Provider Active Star t: December 16, 2024 Dr. Delano Harris MD Other Provider Active Start: December 16, 2024 Dr. Eric Gutierrez DO Other Provider Active Start: December 16, 2024 Dr. Leyda Moore MD Other Provider Active Start: December 16, 2024 Dr. Harrison Morris MD Other Provider Active St art: December 16, 2024 Dr. Joss Cooper MD Other Provider Active Star t: December 16, 2024 Dr. Kareem Tellez MD Other Provider Active Sta rt: December 16, 2024 Dr. Pancho Costa MD Other Provider Active Star t: December 16, 2024 Dr. Eric Buenrostro MD Other Provider Active Start : December 16, 2024 Dr. Jaziel Lundberg MD Attending Provider Active Start: December 16, 2024 Dr. Jaziel Lundberg MD Other Provider Active Star t: December 16, 2024 Dr. Basil Hunter MD Other Provider Active St art: December 16, 2024 Dr. Cecile June MD Other Provider Active Start: December 16, 2024 Dr. Bharathi Gray MD Other Provider Active S tart: December 16, 2024 Dr. Ike Dawkins MD Other Provider Active Start: December 16, 2024 Etienne Hernandez RECORDS MANAGEMENT MANAGER, RECORDS MANAGEMENT MANAGER-C Other Provider Active Start : December 16, 2024 Mariangel Rider PA, PA Other Provider Active Start: December 16, 2024 IRA Mullen Other Provider Active Start: December 16, 2024 Dr. Aaron Hardin MD Other Provider Active Start: December 16, 2024 Dr. Almas Casanova MD Other Provider Active Start: December 16, 2024 Dr. Ramana Ford MD Other Provider Active Star t: December 16, 2024 Dr. Montana Leone DO Other Provider Active Start : December 16, 2024 Dr. Greg Lennon MD Other Provider Active Sta rt: December 16, 2024 Dr. Gibran Huizar MD Other Provider Active St art: December 16, 2024 Dr. Hugh Doss MD Other Provider Active S tart: December 16, 2024 Dr. Ani Smith MD Other Provider Active Start: December 16, 2024 Dr. Jak Corrigan MD Other Provider Active Start : December 16, 2024 Dr. Alfie Loyola MD Other Provider Active Start: December 16, 2024 Dr. Danny Prescott MD Other Provider Active Start : December 16, 2024 Dr. Jagruti Bunch MD Other Provider Active Star t: December 16, 2024 Dr. Renee Hernandez MD Other Provider Active Sta rt: December 16, 2024 Dr. Danyell Yang MD Other Provider Active Sta rt: December 16, 2024 Dr. Clemente Chao MD Other Provider Active Star t: December 16, 2024 Dr. Charles Carrington MD Other Provider Active St art: December 16, 2024 Dr. Jesus Sheffield MD Other Provider Active Star t: December 16, 2024 Dr. Tyrell Vasquez , Other Provider Active St art: December 16, 2024 Dr. Kelly Mix MD Other Provider Active Start: December 16, 2024 Dr. Fabiola Markham MD Other Provider Active St art: December 16, 2024 Dr. Scooby Beasley DO Other Provider Active Start: December 16, 2024 Dr. Varinder Medel MD Other Provider Active Star t: December 16, 2024 Dr. Leno Scherer MD Other Provider Active Sta rt: December 16, 2024 Team Status: Active Member Role/Relationship Status Dates Dr. Zechariah Siddiqui MD Primary Care Provider Active Start: December 17, 2024 Dr. Oswaldo Frances , Emergency Provider Active Start : December 17, 2024 Dr. Zhang Hester MD Admit Provider Active Star t: December 17, 2024 Dr. Zhang Hester MD Other Provider Active Star t: December 17, 2024 Dr. Delano Harris MD Attending Provider Active Start: December 17, 2024 Dr. Delano Harris MD Other Provider Active Start: December 17, 2024 Dr. Eric Gutierrez DO Other Provider Active Start: December 17, 2024 Dr. Leyda Moore MD Other Provider Active Start: December 17, 2024 Dr. Harrison Morris MD Other Provider Active St art: December 17, 2024 Dr. Joss Cooper MD Other Provider Active Star t: December 17, 2024 Dr. Kareem Tellez MD Other Provider Active Sta rt: December 17, 2024 Dr. Pancho Costa MD Other Provider Active Star t: December 17, 2024 Dr. Eric Buenrostro MD Other Provider Active Start : December 17, 2024 Dr. Jaziel Lundberg MD Other Provider Active Star t: December 17, 2024 Dr. Basil Hunter MD Other Provider Active St art: December 17, 2024 Dr. Cecile June MD Other Provider Active Start: December 17, 2024 Dr. Bharathi Gray MD Other Provider Active S tart: December 17, 2024 Dr. Ike Dawkins MD Other Provider Active Start: December 17, 2024 Etienne Hernandez RECORDS MANAGEMENT MANAGER, RECORDS MANAGEMENT MANAGER-C Other Provider Active Start : December 17, 2024 Mariangel Rider PA, PA Other Provider Active Start: December 17, 2024 IRA Mullen Other Provider Active Start: December 17, 2024 Dr. Aaron Hardin MD Other Provider Active Start: December 17, 2024 Dr. Almas Casanova MD Other Provider Active Start: December 17, 2024 Dr. Ramana Ford MD Other Provider Active Star t: December 17, 2024 Dr. Montana Leone DO Other Provider Active Start : December 17, 2024 Dr. Greg Lennon MD Other Provider Active Sta rt: December 17, 2024 Dr. Gibran Huizar MD Other Provider Active St art: December 17, 2024 Dr. Hugh Doss MD Other Provider Active S tart: December 17, 2024 Dr. Ani Smith MD Other Provider Active Start: December 17, 2024 Dr. Jak Corrigan MD Other Provider Active Start : December 17, 2024 Dr. Alfie Loyola MD Other Provider Active Start: December 17, 2024 Dr. Danny Prescott MD Other Provider Active Start : December 17, 2024 Dr. Jagruti Bunch MD Other Provider Active Star t: December 17, 2024 Dr. Renee Hernandez MD Other Provider Active Sta rt: December 17, 2024 Dr. Danyell Yang MD Other Provider Active Sta rt: December 17, 2024 Dr. Clemente Chao MD Other Provider Active Star t: December 17, 2024 Dr. Charles Carrington MD Other Provider Active St art: December 17, 2024 Dr. Jesus Sheffield MD Other Provider Active Star t: December 17, 2024 Dr. Tyrell Vasquez , DO Other Provider Active St art: December 17, 2024 Dr. Kelly Mix MD Other Provider Active Start: December 17, 2024 Dr. Fabiola Markham MD Other Provider Active St art: December 17, 2024 Dr. Scooby Beasley , DO Other Provider Active Start: December 17, 2024 Dr. Varinder Medel MD Other Provider Active Star t: December 17, 2024 Dr. Leno Scherer MD Other Provider Active Sta rt: December 17, 2024 Team Status: Active Member Role/Relationship Status Dates Dr. Zechariah Siddiqui MD Primary Care Provider Active Start: December 17, 2024 Dr. Owsaldo Frances , Emergency Provider Active Start : December 17, 2024 Dr. Zhang Hester MD Admit Provider Active Star t: December 17, 2024 Dr. Zhang Hester MD Other Provider Active Star t: December 17, 2024 Dr. Delano Harris MD Other Provider Active Start: December 17, 2024 Dr. Eric Gutierrez , DO Attending Provider Active Start: December 17, 2024 Dr. Eric Gutierrez , DO Other Provider Active Start: December 17, 2024 Dr. Leyda Moore MD Other Provider Active Start: December 17, 2024 Dr. Harrison Morris MD Other Provider Active St art: December 17, 2024 Dr. Joss Cooper MD Other Provider Active Star t: December 17, 2024 Dr. Kareem Tellez MD Other Provider Active Sta rt: December 17, 2024 Dr. Pancho Costa MD Other Provider Active Star t: December 17, 2024 Dr. Eric Buenrostro MD Other Provider Active Start : December 17, 2024 Dr. Jaziel Lundberg MD Other Provider Active Star t: December 17, 2024 Dr. Basil Hunter MD Other Provider Active St art: December 17, 2024 Dr. Cecile June MD Other Provider Active Start: December 17, 2024 Dr. Bharathi Gray MD Other Provider Active S tart: December 17, 2024 Dr. Ike Dawkins MD Other Provider Active Start: December 17, 2024 Etienne Hernandez RECORDS MANAGEMENT MANAGER, RECORDS MANAGEMENT MANAGER-C Other Provider Active Start : December 17, 2024 Mariangel ROTH, PA Other Provider Active Start: December 17, 2024 IRA Mullen Other Provider Active Start: December 17, 2024 Dr. Aaron Hardin MD Other Provider Active Start: December 17, 2024 Dr. Almas Casanova MD Other Provider Active Start: December 17, 2024 Dr. Ramana Ford MD Other Provider Active Star t: December 17, 2024 Dr. Montana Leone DO Other Provider Active Start : December 17, 2024 Dr. Greg Lennon MD Other Provider Active Sta rt: December 17, 2024 Dr. Gibran Huizar MD Other Provider Active St art: December 17, 2024 Dr. Hugh Doss MD Other Provider Active S tart: December 17, 2024 Dr. Ani Smith MD Other Provider Active Start: December 17, 2024 Dr. Jak Corrigan MD Other Provider Active Start : December 17, 2024 Dr. Alfie Loyola MD Other Provider Active Start: December 17, 2024 Dr. Danny Prescott MD Other Provider Active Start : December 17, 2024 Dr. Jagruti Bunch MD Other Provider Active Star t: December 17, 2024 Dr. Renee Hernandez MD Other Provider Active Sta rt: December 17, 2024 Dr. Danyell Yang MD Other Provider Active Sta rt: December 17, 2024 Dr. Clemente Chao MD Other Provider Active Star t: December 17, 2024 Dr. Charles Carrington MD Other Provider Active St art: December 17, 2024 Dr. Jesus Sheffield MD Other Provider Active Star t: December 17, 2024 Dr. Tyrell Vasquez , DO Other Provider Active St art: December 17, 2024 Dr. Kelly Mix MD Other Provider Active Start: December 17, 2024 Dr. Fbaiola Markham MD Other Provider Active St art: December 17, 2024 Dr. Scooby Beasley , Other Provider Active Start: December 17, 2024 Dr. Varinder Medel MD Other Provider Active Star t: December 17, 2024 Dr. Leno Scherer MD Other Provider Active Sta rt: December 17, 2024 Team Status: Active Member Role/Relationship Status Dates Dr. Zechariah Siddiqui MD Primary Care Provider Active Start: December 18, 2024 Dr. Oswaldo Frances , Emergency Provider Active Start : December 18, 2024 Dr. Zhang Hester MD Admit Provider Active Star t: December 18, 2024 Dr. Zhang Hester MD Other Provider Active Star t: December 18, 2024 Dr. Delano Harris MD Other Provider Active Start: December 18, 2024 Dr. Eric Gutierrez , Other Provider Active Start: December 18, 2024 Dr. Leyda Moore MD Other Provider Active Start: December 18, 2024 Dr. Harrison Morris MD Other Provider Active St art: December 18, 2024 Dr. Joss Cooper MD Other Provider Active Star t: December 18, 2024 Dr. Kareem Tellez MD Other Provider Active Sta rt: December 18, 2024 Dr. Pancho Costa MD Other Provider Active Star t: December 18, 2024 Dr. Eric Buenrostro MD Other Provider Active Start : December 18, 2024 Dr. Jaziel Lundberg MD Other Provider Active Star t: December 18, 2024 Dr. Basil Hunter MD Other Provider Active St art: December 18, 2024 Dr. Cecile June MD Other Provider Active Start: December 18, 2024 Dr. Bharathi Gray MD Other Provider Active S tart: December 18, 2024 Dr. Ike Dawkins MD Other Provider Active Start: December 18, 2024 Etienne Hernandez RECORDS MANAGEMENT MANAGER, RECORDS MANAGEMENT MANAGER-C Other Provider Active Start : December 18, 2024 Mariangel Rider PA, PA Other Provider Active Start: December 18, 2024 IRA Mullen Other Provider Active Start: December 18, 2024 Dr. Aaron Hardin MD Other Provider Active Start: December 18, 2024 Dr. Almas Casanova MD Other Provider Active Start: December 18, 2024 Dr. Ramana Ford MD Other Provider Active Star t: December 18, 2024 Dr. Montana Leone , Other Provider Active Start : December 18, 2024 Dr. Greg Lennon MD Other Provider Active Sta rt: December 18, 2024 Dr. Gibran Huizar MD Other Provider Active St art: December 18, 2024 Dr. Hugh Doss MD Other Provider Active S tart: December 18, 2024 Dr. Ani Smith MD Other Provider Active Start: December 18, 2024 Dr. Jak Corrigan MD Other Provider Active Start : December 18, 2024 Dr. Alfie Loyola MD Other Provider Active Start: December 18, 2024 Dr. Danny Prescott MD Other Provider Active Start : December 18, 2024 Dr. Jagruti Bunch MD Other Provider Active Star t: December 18, 2024 Dr. Renee Hernandez MD Other Provider Active Sta rt: December 18, 2024 Dr. Danyell Yang MD Other Provider Active Sta rt: December 18, 2024 Dr. Clemente Chao MD Other Provider Active Star t: December 18, 2024 Dr. Charles Carrington MD Other Provider Active St art: December 18, 2024 Dr. Jesus Sheffield MD Other Provider Active Star t: December 18, 2024 Dr. Tyrell Vasquez , Other Provider Active St art: December 18, 2024 Dr. Kelly Mix MD Other Provider Active Start: December 18, 2024 Dr. Fabiola Markham MD Other Provider Active St art: December 18, 2024 Dr. Scooby Beasley , Other Provider Active Start: December 18, 2024 Dr. Varinder Medel MD Other Provider Active Star t: December 18, 2024 Dr. Leno Scherer MD Other Provider Active Sta rt: December 18, 2024 Dr. Adeline Rivera MD Attending Provider Active Start: December 18, 2024 Team Status: Active Member Role/Relationship Status Dates Dr. Zechariah Siddiqui MD Primary Care Provider Active Start: December 18, 2024 Dr. Oswaldo Frances DO Emergency Provider Active Start : December 18, 2024 Dr. Zhang Hester MD Admit Provider Active Star t: December 18, 2024 Dr. Zhang Hester MD Other Provider Active Star t: December 18, 2024 Dr. Delano Harris MD Other Provider Active Start: December 18, 2024 Dr. Eric Gutierrez DO Attending Provider Active Start: December 18, 2024 Dr. Eric Gutierrez DO Other Provider Active Start: December 18, 2024 Dr. Leyda Moore MD Other Provider Active Start: December 18, 2024 Dr. Harrison Morris MD Other Provider Active St art: December 18, 2024 Dr. Joss Cooper MD Other Provider Active Star t: December 18, 2024 Dr. Kareem Tellez MD Other Provider Active Sta rt: December 18, 2024 Dr. Pancho Costa MD Other Provider Active Star t: December 18, 2024 Dr. Eric Buenrostro MD Other Provider Active Start : December 18, 2024 Dr. Jaziel Lundberg MD Other Provider Active Star t: December 18, 2024 Dr. Basil Hunter MD Other Provider Active St art: December 18, 2024 Dr. Cecile June MD Other Provider Active Start: December 18, 2024 Dr. Bharathi Gray MD Other Provider Active S tart: December 18, 2024 Dr. Ike Dawkins MD Other Provider Active Start: December 18, 2024 Etienne Hernandez RECORDS MANAGEMENT MANAGER, RECORDS MANAGEMENT MANAGER-C Other Provider Active Start : December 18, 2024 Mariangel Rider PA, PA Other Provider Active Start: December 18, 2024 IRA Mullen Other Provider Active Start: December 18, 2024 Dr. Aaron Hardin MD Other Provider Active Start: December 18, 2024 Dr. Almas Casanova MD Other Provider Active Start: December 18, 2024 Dr. Ramana Ford MD Other Provider Active Star t: December 18, 2024 Dr. Montana Leone , Other Provider Active Start : December 18, 2024 Dr. Greg Lennon MD Other Provider Active Sta rt: December 18, 2024 Dr. Gibran Huizar MD Other Provider Active St art: December 18, 2024 Dr. Hugh Doss MD Other Provider Active S tart: December 18, 2024 Dr. Ani Smith MD Other Provider Active Start: December 18, 2024 Dr. Jak Corrigan MD Other Provider Active Start : December 18, 2024 Dr. Alfie Loyola MD Other Provider Active Start: December 18, 2024 Dr. Danny Prescott MD Other Provider Active Start : December 18, 2024 Dr. Jagruti Bunch MD Other Provider Active Star t: December 18, 2024 Dr. Renee Hernandez MD Other Provider Active Sta rt: December 18, 2024 Dr. Danyell Yang MD Other Provider Active Sta rt: December 18, 2024 Dr. Clemente Chao MD Other Provider Active Star t: December 18, 2024 Dr. Charles Carrington MD Other Provider Active St art: December 18, 2024 Dr. Jesus Sheffield MD Other Provider Active Star t: December 18, 2024 Dr. Tyrell Vasquez , Other Provider Active St art: December 18, 2024 Dr. Kelly Mix MD Other Provider Active Start: December 18, 2024 Dr. Fabiola Markham MD Other Provider Active St art: December 18, 2024 Dr. Scooby Beasley , Other Provider Active Start: December 18, 2024 Dr. Varinder Medel MD Other Provider Active Star t: December 18, 2024 Dr. Leno Scherer MD Other Provider Active Sta rt: December 18, 2024 Team Status: Active Member Role/Relationship Status Dates Dr. Zechariah Siddiqui MD Primary Care Provider Active Start: December 18, 2024 Dr. Oswaldo Frances , Emergency Provider Active Start : December 18, 2024 Dr. Zhang Hester MD Admit Provider Active Star t: December 18, 2024 Dr. Zhang Hester MD Other Provider Active Star t: December 18, 2024 Dr. Delano Harris MD Other Provider Active Start: December 18, 2024 Dr. Eric Gutierrez DO Other Provider Active Start: December 18, 2024 Dr. Leyda Moore MD Other Provider Active Start: December 18, 2024 Dr. Harrison Morris MD Other Provider Active St art: December 18, 2024 Dr. Joss Cooper MD Other Provider Active Star t: December 18, 2024 Dr. Kareem Tellez MD Other Provider Active Sta rt: December 18, 2024 Dr. Pancho Costa MD Other Provider Active Star t: December 18, 2024 Dr. Eric Buenrostro MD Other Provider Active Start : December 18, 2024 Dr. Jaziel Lundberg MD Attending Provider Active Start: December 18, 2024 Dr. Jaziel Lundberg MD Other Provider Active Star t: December 18, 2024 Dr. Basil Hunter MD Other Provider Active St art: December 18, 2024 Dr. Cecile June MD Other Provider Active Start: December 18, 2024 Dr. Bharathi Gray MD Other Provider Active S tart: December 18, 2024 Dr. Ike Dawkins MD Other Provider Active Start: December 18, 2024 Etienne Hernandez RECORDS MANAGEMENT MANAGER, RECORDS MANAGEMENT MANAGER-C Other Provider Active Start : December 18, 2024 Mariangel Rider PA, PA Other Provider Active Start: December 18, 2024 IRA Mullen Other Provider Active Start: December 18, 2024 Dr. Aaron Hardin MD Other Provider Active Start: December 18, 2024 Dr. Almas Casanova MD Other Provider Active Start: December 18, 2024 Dr. Ramana Ford MD Other Provider Active Star t: December 18, 2024 Dr. Montana Leone DO Other Provider Active Start : December 18, 2024 Dr. Greg Lennon MD Other Provider Active Sta rt: December 18, 2024 Dr. Gibran Huizar MD Other Provider Active St art: December 18, 2024 Dr. Hugh Doss MD Other Provider Active S tart: December 18, 2024 Dr. Ani Smith MD Other Provider Active Start: December 18, 2024 Dr. Jak Corrigan MD Other Provider Active Start : December 18, 2024 Dr. Alfie Loyola MD Other Provider Active Start: December 18, 2024 Dr. Danny Prescott MD Other Provider Active Start : December 18, 2024 Dr. Jagruti Bunch MD Other Provider Active Star t: December 18, 2024 Dr. Renee Hernandez MD Other Provider Active Sta rt: December 18, 2024 Dr. Danyell Yang MD Other Provider Active Sta rt: December 18, 2024 Dr. Clemente Chao MD Other Provider Active Star t: December 18, 2024 Dr. Charles Carrington MD Other Provider Active St art: December 18, 2024 Dr. Jesus Sheffield MD Other Provider Active Star t: December 18, 2024 Dr. Tyrell Vasquez DO Other Provider Active St art: December 18, 2024 Dr. Kelly Mix MD Other Provider Active Start: December 18, 2024 Dr. Fabiola Markham MD Other Provider Active St art: December 18, 2024 Dr. Scooby Beasley DO Other Provider Active Start: December 18, 2024 Dr. Varinder Medel MD Other Provider Active Star t: December 18, 2024 Dr. Leno Scherer MD Other Provider Active Sta rt: December 18, 2024 Team Status: Active Member Role/Relationship Status Dates Dr. Zechariah Siddiqui MD Primary Care Provider Active Start: December 19, 2024 Dr. Oswaldo Frances , Emergency Provider Active Start : December 19, 2024 Dr. Zhang Hester MD Admit Provider Active Star t: December 19, 2024 Dr. Zhang Hester MD Other Provider Active Star t: December 19, 2024 Dr. Delano Harris MD Other Provider Active Start: December 19, 2024 Dr. Eric Gutierrez DO Attending Provider Active Start: December 19, 2024 Dr. Eric Gutierrez DO Other Provider Active Start: December 19, 2024 Dr. Leyda Moore MD Other Provider Active Start: December 19, 2024 Dr. Harrison Morris MD Other Provider Active St art: December 19, 2024 Dr. Joss Cooper MD Other Provider Active Star t: December 19, 2024 Dr. Kareem Tellez MD Other Provider Active Sta rt: December 19, 2024 Dr. Pancho Costa MD Other Provider Active Star t: December 19, 2024 Dr. Eric Buenrostro MD Other Provider Active Start : December 19, 2024 Dr. Jaziel Lundberg MD Other Provider Active Star t: December 19, 2024 Dr. Basil Hunter MD Other Provider Active St art: December 19, 2024 Dr. Cecile June MD Other Provider Active Start: December 19, 2024 Dr. Bharathi Gray MD Other Provider Active S tart: December 19, 2024 Dr. Ike Dawkins MD Other Provider Active Start: December 19, 2024 Etienne Hernandez RECORDS MANAGEMENT MANAGER, RECORDS MANAGEMENT MANAGER-C Other Provider Active Start : December 19, 2024 Mariangel Rider PA, PA Other Provider Active Start: December 19, 2024 IRA Mullen Other Provider Active Start: December 19, 2024 Dr. Aaron Hardin MD Other Provider Active Start: December 19, 2024 Dr. Almas Casanova MD Other Provider Active Start: December 19, 2024 Dr. Ramana Ford MD Other Provider Active Star t: December 19, 2024 Dr. Montana Leone DO Other Provider Active Start : December 19, 2024 Dr. Greg Lennon MD Other Provider Active Sta rt: December 19, 2024 Dr. Gibran Huizar MD Other Provider Active St art: December 19, 2024 Dr. Hugh Doss MD Other Provider Active S tart: December 19, 2024 Dr. Ani Smith MD Other Provider Active Start: December 19, 2024 Dr. Jak Corrigan MD Other Provider Active Start : December 19, 2024 Dr. Alfie Loyola MD Other Provider Active Start: December 19, 2024 Dr. Danny Prescott MD Other Provider Active Start : December 19, 2024 Dr. Jagruti Bunch MD Other Provider Active Star t: December 19, 2024 Dr. Renee Hernandez MD Other Provider Active Sta rt: December 19, 2024 Dr. Danyell Yang MD Other Provider Active Sta rt: December 19, 2024 Dr. Clemente Chao MD Other Provider Active Star t: December 19, 2024 Dr. Charles Carrington MD Other Provider Active St art: December 19, 2024 Dr. Jesus Sheffield MD Other Provider Active Star t: December 19, 2024 Dr. Tyrell Vasquez DO Other Provider Active St art: December 19, 2024 Dr. Kelly Mix MD Other Provider Active Start: December 19, 2024 Dr. Fabiola Markham MD Other Provider Active St art: December 19, 2024 Dr. Scooby Beasley DO Other Provider Active Start: December 19, 2024 Dr. Varinder Medel MD Other Provider Active Star t: December 19, 2024 Dr. Leno Scherer MD Other Provider Active Sta rt: December 19, 2024 Team Status: Active Member Role/Relationship Status Dates Dr. Zechariah Siddiqui MD Primary Care Provider Active Start: December 19, 2024 Dr. Oswaldo Frances DO Emergency Provider Active Start : December 19, 2024 Dr. Zhang Hester MD Admit Provider Active Star t: December 19, 2024 Dr. Zhang Hester MD Other Provider Active Star t: December 19, 2024 Dr. Delano Harris MD Other Provider Active Start: December 19, 2024 Dr. Eric Gutierrez DO Other Provider Active Start: December 19, 2024 Dr. Leyda Moore MD Other Provider Active Start: December 19, 2024 Dr. Harrison Morris MD Other Provider Active St art: December 19, 2024 Dr. Joss Cooper MD Other Provider Active Star t: December 19, 2024 Dr. Kareem Tellez MD Other Provider Active Sta rt: December 19, 2024 Dr. Pancho Costa MD Other Provider Active Star t: December 19, 2024 Dr. Eric Buenrostro MD Other Provider Active Start : December 19, 2024 Dr. Jaziel Lundberg MD Attending Provider Active Start: December 19, 2024 Dr. Jaziel Lundberg MD Other Provider Active Star t: December 19, 2024 Dr. Basil Hunter MD Other Provider Active St art: December 19, 2024 Dr. Cecile June MD Other Provider Active Start: December 19, 2024 Dr. Bharathi Gray MD Other Provider Active S tart: December 19, 2024 Dr. Ike Dawkins MD Other Provider Active Start: December 19, 2024 Etienne Patrick Mary RECORDS MANAGEMENT MANAGER, RECORDS MANAGEMENT MANAGER-C Other Provider Active Start : December 19, 2024 Mariangel Rider PA, PA Other Provider Active Start: December 19, 2024 IRA Mullen Other Provider Active Start: December 19, 2024 Dr. Aaron Hardin MD Other Provider Active Start: December 19, 2024 Dr. Almas Casanova MD Other Provider Active Start: December 19, 2024 Dr. Ramana Ford MD Other Provider Active Star t: December 19, 2024 Dr. Montana Leone DO Other Provider Active Start : December 19, 2024 Dr. Greg Lennon MD Other Provider Active Sta rt: December 19, 2024 Dr. Gibran Huizar MD Other Provider Active St art: December 19, 2024 Dr. Hugh Doss MD Other Provider Active S tart: December 19, 2024 Dr. Ani Smith MD Other Provider Active Start: December 19, 2024 Dr. Jak Corrigan MD Other Provider Active Start : December 19, 2024 Dr. Alfie Loyola MD Other Provider Active Start: December 19, 2024 Dr. Danny Prescott MD Other Provider Active Start : December 19, 2024 Dr. Jagruti Bunch MD Other Provider Active Star t: December 19, 2024 Dr. Renee Hernandez MD Other Provider Active Sta rt: December 19, 2024 Dr. Danyell Yang MD Other Provider Active Sta rt: December 19, 2024 Dr. Clemente Chao MD Other Provider Active Star t: December 19, 2024 Dr. Charles Carrington MD Other Provider Active St art: December 19, 2024 Dr. Jesus Sheffield MD Other Provider Active Star t: December 19, 2024 Dr. Tyrell Vasquez DO Other Provider Active St art: December 19, 2024 Dr. Kelly Mix MD Other Provider Active Start: December 19, 2024 Dr. Fabiola Markham MD Other Provider Active St art: December 19, 2024 Dr. Scooby Beasley DO Other Provider Active Start: December 19, 2024 Dr. Varinder Medel MD Other Provider Active Star t: December 19, 2024 Dr. Leno Scherer MD Other Provider Active Sta rt: December 19, 2024 Team Status: Active Member Role/Relationship Status Dates Dr. Zechariah Siddiqui MD Primary Care Provider Active Start: December 19, 2024 Dr. Oswaldo Frances DO Emergency Provider Active Start : December 19, 2024 Dr. Zhang Hester MD Admit Provider Active Star t: December 19, 2024 Dr. Zhang Hester MD Other Provider Active Star t: December 19, 2024 Dr. Delano Harris MD Other Provider Active Start: December 19, 2024 Dr. Eric Gutierrez DO Other Provider Active Start: December 19, 2024 Dr. Leyda Moore MD Other Provider Active Start: December 19, 2024 Dr. Harrison Morris MD Other Provider Active St art: December 19, 2024 Dr. Joss Cooper MD Other Provider Active Star t: December 19, 2024 Dr. Kareem Tellez MD Other Provider Active Sta rt: December 19, 2024 Dr. Pancho Cotsa MD Other Provider Active Star t: December 19, 2024 Dr. Eric Buenrostro MD Other Provider Active Start : December 19, 2024 Dr. Jaziel Lundberg MD Other Provider Active Star t: December 19, 2024 Dr. Basil Hunter MD Other Provider Active St art: December 19, 2024 Dr. Cecile June MD Other Provider Active Start: December 19, 2024 Dr. Bharathi Gray MD Other Provider Active S tart: December 19, 2024 Dr. Ike Dawkins MD Other Provider Active Start: December 19, 2024 Etienne Hernandez RECORDS MANAGEMENT MANAGER, RECORDS MANAGEMENT MANAGER-C Other Provider Active Start : December 19, 2024 Mariangel Rider PA, PA Other Provider Active Start: December 19, 2024 IRA Mullen Other Provider Active Start: December 19, 2024 Dr. Aaron Hardin MD Other Provider Active Start: December 19, 2024 Dr. Almas Casanova MD Other Provider Active Start: December 19, 2024 Dr. Ramana Ford MD Other Provider Active Star t: December 19, 2024 Dr. Montana Leone , Other Provider Active Start : December 19, 2024 Dr. Greg Lennon MD Other Provider Active Sta rt: December 19, 2024 Dr. Gibran Huizar MD Other Provider Active St art: December 19, 2024 Dr. Hugh Doss MD Other Provider Active S tart: December 19, 2024 Dr. Ani Smith MD Other Provider Active Start: December 19, 2024 Dr. Jak Corrigan MD Other Provider Active Start : December 19, 2024 Dr. Alfie Loyola MD Other Provider Active Start: December 19, 2024 Dr. Danny Prescott MD Other Provider Active Start : December 19, 2024 Dr. Jagruti Bunch MD Other Provider Active Star t: December 19, 2024 Dr. Renee Hernandez MD Other Provider Active Sta rt: December 19, 2024 Dr. Danyell Yang MD Other Provider Active Sta rt: December 19, 2024 Dr. Clemente Chao MD Other Provider Active Star t: December 19, 2024 Dr. Charles Carrington MD Other Provider Active St art: December 19, 2024 Dr. Jesus Sheffield MD Other Provider Active Star t: December 19, 2024 Dr. Tyrell Vasquez DO Other Provider Active St art: December 19, 2024 Dr. Kelly Mix MD Other Provider Active Start: December 19, 2024 Dr. Fabiola Markham MD Other Provider Active St art: December 19, 2024 Dr. Scooby Beasley DO Other Provider Active Start: December 19, 2024 Dr. Varinder Medel MD Other Provider Active Star t: December 19, 2024 Dr. Leno Scherer MD Other Provider Active Sta rt: December 19, 2024 Dr. Adeline Rivera MD Attending Provider Active Start: December 19, 2024 Team Status: Active Member Role/Relationship Status Dates Dr. Zechariah Siddiqui MD Primary Care Provider Active Start: December 20, 2024 Dr. Oswaldo Frances DO Emergency Provider Active Start : December 20, 2024 Dr. Zhang Hester MD Admit Provider Active Star t: December 20, 2024 Dr. Zhang Hester MD Other Provider Active Star t: December 20, 2024 Dr. Delano Harris MD Other Provider Active Start: December 20, 2024 Dr. Leyda Moore MD Other Provider Active Start: December 20, 2024 Dr. Harrison Morris MD Other Provider Active St art: December 20, 2024 Dr. Joss Cooper MD Other Provider Active Star t: December 20, 2024 Dr. Kareem Tellez MD Other Provider Active Sta rt: December 20, 2024 Dr. Pancho Costa MD Other Provider Active Star t: December 20, 2024 Dr. Eric Buenrostro MD Other Provider Active Start : December 20, 2024 Dr. Jaziel Lundberg MD Other Provider Active Star t: December 20, 2024 Dr. Basil Hunter MD Attending Provider Active Start: December 20, 2024 Dr. Basil Hunter MD Other Provider Active St art: December 20, 2024 Dr. Cecile June MD Other Provider Active Start: December 20, 2024 Dr. Bharathi Gray MD Other Provider Active S tart: December 20, 2024 Dr. Ike Dawkins MD Other Provider Active Start: December 20, 2024 Etienne Hernandez RECORDS MANAGEMENT MANAGER, RECORDS MANAGEMENT MANAGER-C Other Provider Active Start : December 20, 2024 Mariangel Rider PA, PA Other Provider Active Start: December 20, 2024 IRA Mullen Other Provider Active Start: December 20, 2024 Dr. Aaron Hardin MD Other Provider Active Start: December 20, 2024 Dr. Almas Casanova MD Other Provider Active Start: December 20, 2024 Dr. Ramana Ford MD Other Provider Active Star t: December 20, 2024 Dr. Montana Leone DO Other Provider Active Start : December 20, 2024 Dr. Greg Lennon MD Other Provider Active Sta rt: December 20, 2024 Dr. Gibran Huizar MD Other Provider Active St art: December 20, 2024 Dr. Hugh Doss MD Other Provider Active S tart: December 20, 2024 Dr. Ani Smith MD Other Provider Active Start: December 20, 2024 Dr. Jak Corrigan MD Other Provider Active Start : December 20, 2024 Dr. Alfie Loyola MD Other Provider Active Start: December 20, 2024 Dr. Danny Prescott MD Other Provider Active Start : December 20, 2024 Dr. Jagruti Bunch MD Other Provider Active Star t: December 20, 2024 Dr. Renee Hernandez MD Other Provider Active Sta rt: December 20, 2024 Dr. Danyell Yang MD Other Provider Active Sta rt: December 20, 2024 Dr. Clemente Chao MD Other Provider Active Star t: December 20, 2024 Dr. Charles Carrington MD Other Provider Active St art: December 20, 2024 Dr. Jesus Sheffield MD Other Provider Active Star t: December 20, 2024 Dr. Tyrell Vasquez DO Other Provider Active St art: December 20, 2024 Dr. Kelly Mix MD Other Provider Active Start: December 20, 2024 Dr. Fabiola Markham MD Other Provider Active St art: December 20, 2024 Dr. Scooby Beasley DO Other Provider Active Start: December 20, 2024 Dr. Varinder Medel MD Other Provider Active Star t: December 20, 2024 Dr. Leno Scherer MD Other Provider Active Sta rt: December 20, 2024 Dr. Zechariah Plasencia DO Other Provider Active Star t: December 20, 2024 Dr. Eric Gutierrez DO Other Provider Active Start: December 20, 2024 Team Status: Active Member Role/Relationship Status Dates Dr. Zechariah Siddiqui MD Primary Care Provider Active Start: December 20, 2024 Dr. Oswaldo Frances DO Emergency Provider Active Start : December 20, 2024 Dr. Zhang Hester MD Admit Provider Active Star t: December 20, 2024 Dr. Zhang Hester MD Other Provider Active Star t: December 20, 2024 Dr. Delano Harris MD Other Provider Active Start: December 20, 2024 Dr. Leyda Moore MD Other Provider Active Start: December 20, 2024 Dr. Harrison Morris MD Other Provider Active St art: December 20, 2024 Dr. Joss Cooper MD Other Provider Active Star t: December 20, 2024 Dr. Kareem Tellez MD Other Provider Active Sta rt: December 20, 2024 Dr. Pancho Costa MD Other Provider Active Star t: December 20, 2024 Dr. Eric Buenrostro MD Other Provider Active Start : December 20, 2024 Dr. Jaziel Lundberg MD Other Provider Active Star t: December 20, 2024 Dr. Basil Hunter MD Other Provider Active St art: December 20, 2024 Dr. Cecile June MD Other Provider Active Start: December 20, 2024 Dr. Bharathi Gray MD Other Provider Active S tart: December 20, 2024 Dr. Ike Dawkins MD Other Provider Active Start: December 20, 2024 Etienne Hernandez RECORDS MANAGEMENT MANAGER, RECORDS MANAGEMENT MANAGER-C Other Provider Active Start : December 20, 2024 Mariangel Rider PA, PA Other Provider Active Start: December 20, 2024 IRA Mullen Other Provider Active Start: December 20, 2024 Dr. Aaron Hardin MD Other Provider Active Start: December 20, 2024 Dr. Almas Casanova MD Other Provider Active Start: December 20, 2024 Dr. Ramana Ford MD Other Provider Active Star t: December 20, 2024 Dr. Montana Leone DO Other Provider Active Start : December 20, 2024 Dr. Greg Lennon MD Other Provider Active Sta rt: December 20, 2024 Dr. Gibran Huizar MD Other Provider Active St art: December 20, 2024 Dr. Hugh Doss MD Other Provider Active S tart: December 20, 2024 Dr. Ani Smith MD Other Provider Active Start: December 20, 2024 Dr. Jak Corrigan MD Other Provider Active Start : December 20, 2024 Dr. Alfie Loyola MD Other Provider Active Start: December 20, 2024 Dr. Danny Prescott MD Other Provider Active Start : December 20, 2024 Dr. Jagruti Bunch MD Other Provider Active Star t: December 20, 2024 Dr. Renee Hernandez MD Other Provider Active Sta rt: December 20, 2024 Dr. Danyell Yang MD Other Provider Active Sta rt: December 20, 2024 Dr. Clemente Chao MD Other Provider Active Star t: December 20, 2024 Dr. Charles Carrington MD Other Provider Active St art: December 20, 2024 Dr. Jesus Sheffield MD Other Provider Active Star t: December 20, 2024 Dr. Tyrell Vasquez , Other Provider Active St art: December 20, 2024 Dr. Kelly Mix MD Other Provider Active Start: December 20, 2024 Dr. Fabiola Markham MD Other Provider Active St art: December 20, 2024 Dr. Scooby Beasley DO Other Provider Active Start: December 20, 2024 Dr. Varinder Medel MD Other Provider Active Star t: December 20, 2024 Dr. Leno Scherer MD Other Provider Active Sta rt: December 20, 2024 Dr. Zechariah Plasencia DO Attending Provider Active Start: December 20, 2024 Dr. Zechariah Plasencia DO Other Provider Active Star t: December 20, 2024 Dr. Eric Gutierrez DO Other Provider Active Start: December 20, 2024 Team Status: Active Member Role/Relationship Status Dates Dr. Zechariah Siddiqui MD Primary Care Provider Active Start: December 20, 2024 Dr. Oswaldo Frances DO Emergency Provider Active Start : December 20, 2024 Dr. Zhang Hester MD Admit Provider Active Star t: December 20, 2024 Dr. Zhang Hester MD Other Provider Active Star t: December 20, 2024 Dr. Delano Harris MD Other Provider Active Start: December 20, 2024 Dr. Leyda Moore MD Other Provider Active Start: December 20, 2024 Dr. Harrison Morris MD Other Provider Active St art: December 20, 2024 Dr. Joss Cooper MD Other Provider Active Star t: December 20, 2024 Dr. Kareem Tellez MD Other Provider Active Sta rt: December 20, 2024 Dr. Pancho Costa MD Other Provider Active Star t: December 20, 2024 Dr. Eric Buenrostro MD Other Provider Active Start : December 20, 2024 Dr. Jaziel Lundberg MD Other Provider Active Star t: December 20, 2024 Dr. Basil Hunter MD Other Provider Active St art: December 20, 2024 Dr. Cecile June MD Other Provider Active Start: December 20, 2024 Dr. Bharathi Gray MD Other Provider Active S tart: December 20, 2024 Dr. Ike Dawkins MD Other Provider Active Start: December 20, 2024 Etienne Hernandez RECORDS MANAGEMENT MANAGER, RECORDS MANAGEMENT MANAGER-C Other Provider Active Start : December 20, 2024 Mariangel ROTH, PA Other Provider Active Start: December 20, 2024 IRA Mullen Other Provider Active Start: December 20, 2024 Dr. Aaron Hardin MD Other Provider Active Start: December 20, 2024 Dr. Almas Casanova MD Other Provider Active Start: December 20, 2024 Dr. Ramana Ford MD Other Provider Active Star t: December 20, 2024 Dr. Montana Leone , Other Provider Active Start : December 20, 2024 Dr. Greg Lennon MD Other Provider Active Sta rt: December 20, 2024 Dr. Gibran Huizar MD Other Provider Active St art: December 20, 2024 Dr. Hugh Doss MD Other Provider Active S tart: December 20, 2024 Dr. Ani Smith MD Other Provider Active Start: December 20, 2024 Dr. Jak Corrigan MD Other Provider Active Start : December 20, 2024 Dr. Alfie Loyola MD Other Provider Active Start: December 20, 2024 Dr. Danny Prescott MD Other Provider Active Start : December 20, 2024 Dr. Jagruti Bunch MD Other Provider Active Star t: December 20, 2024 Dr. Renee Hernandez MD Other Provider Active Sta rt: December 20, 2024 Dr. Danyell Yang MD Other Provider Active Sta rt: December 20, 2024 Dr. Clemente Chao MD Other Provider Active Star t: December 20, 2024 Dr. Charles Carrington MD Other Provider Active St art: December 20, 2024 Dr. Jesus Sheffield MD Other Provider Active Star t: December 20, 2024 Dr. Tyrell Vasquez DO Other Provider Active St art: December 20, 2024 Dr. Kelly Mix MD Other Provider Active Start: December 20, 2024 Dr. Fabiola Markham MD Other Provider Active St art: December 20, 2024 Dr. Scooby Beasley , Other Provider Active Start: December 20, 2024 Dr. Varinder Medel MD Other Provider Active Star t: December 20, 2024 Dr. Leno Scherer MD Other Provider Active Sta rt: December 20, 2024 Dr. Zechariah Plasencia , Other Provider Active Star t: December 20, 2024 Dr. Eric Gutierrez DO Other Provider Active Start: December 20, 2024 Dr. Adeline Rivera MD Attending Provider Active Start: December 20, 2024 Team Status: Active Member Role/Relationship Status Dates Dr. Zechariah Siddiqui MD Primary Care Provider Active Start: December 21, 2024 Dr. Oswaldo Frances DO Emergency Provider Active Start : December 21, 2024 Dr. Zhang Hester MD Admit Provider Active Star t: December 21, 2024 Dr. Zhang Hester MD Other Provider Active Star t: December 21, 2024 Dr. Delano Harris MD Other Provider Active Start: December 21, 2024 Dr. Leyda Moore MD Other Provider Active Start: December 21, 2024 Dr. Harrison Morris MD Other Provider Active St art: December 21, 2024 Dr. Joss Cooper MD Other Provider Active Star t: December 21, 2024 Dr. Kareem Tellez MD Other Provider Active Sta rt: December 21, 2024 Dr. Pancho Costa MD Other Provider Active Star t: December 21, 2024 Dr. Eric Buenrostro MD Other Provider Active Start : December 21, 2024 Dr. Jaziel Lundberg MD Other Provider Active Star t: December 21, 2024 Dr. Basil Hunter MD Other Provider Active St art: December 21, 2024 Dr. Cecile June MD Other Provider Active Start: December 21, 2024 Dr. Bharathi Gray MD Other Provider Active S tart: December 21, 2024 Dr. Ike Dawkins MD Other Provider Active Start: December 21, 2024 Etienne Hernandez RECORDS MANAGEMENT MANAGER, RECORDS MANAGEMENT MANAGER-C Other Provider Active Start : December 21, 2024 Mariangel Rider PA, PA Other Provider Active Start: December 21, 2024 IRA Mullen Other Provider Active Start: December 21, 2024 Dr. Aaron Hardin MD Other Provider Active Start: December 21, 2024 Dr. Almas Casanova MD Other Provider Active Start: December 21, 2024 Dr. Ramana Ford MD Other Provider Active Star t: December 21, 2024 Dr. Montana Leone DO Other Provider Active Start : December 21, 2024 Dr. Greg Lennon MD Other Provider Active Sta rt: December 21, 2024 Dr. Gibran Huizar MD Other Provider Active St art: December 21, 2024 Dr. Hugh Doss MD Other Provider Active S tart: December 21, 2024 Dr. Ani Smith MD Other Provider Active Start: December 21, 2024 Dr. Jak Corrigan MD Other Provider Active Start : December 21, 2024 Dr. Alfie Loyola MD Other Provider Active Start: December 21, 2024 Dr. Danny Prescott MD Other Provider Active Start : December 21, 2024 Dr. Jagruti Bunch MD Other Provider Active Star t: December 21, 2024 Dr. Renee Hernandez MD Other Provider Active Sta rt: December 21, 2024 Dr. Danyell Yang MD Other Provider Active Sta rt: December 21, 2024 Dr. Clemente Chao MD Other Provider Active Star t: December 21, 2024 Dr. Charles Carrington MD Other Provider Active St art: December 21, 2024 Dr. Jesus Sheffield MD Other Provider Active Star t: December 21, 2024 Dr. Tyrell Vasquez DO Other Provider Active St art: December 21, 2024 Dr. Kelly Mix MD Other Provider Active Start: December 21, 2024 Dr. Fabiola Markham MD Other Provider Active St art: December 21, 2024 Dr. Scooby Beasley DO Other Provider Active Start: December 21, 2024 Dr. Varinder Medel MD Other Provider Active Star t: December 21, 2024 Dr. Leno Scherer MD Other Provider Active Sta rt: December 21, 2024 Dr. Zechariah Plasencia DO Attending Provider Active Start: December 21, 2024 Dr. Zechariah Plasencia DO Other Provider Active Star t: December 21, 2024 Dr. Eric Gutierrez DO Other Provider Active Start: December 21, 2024 Team Status: Active Member Role/Relationship Status Dates Dr. Zechariah Siddiqui MD Primary Care Provider Active Start: December 21, 2024 Dr. Oswaldo Frances DO Emergency Provider Active Start : December 21, 2024 Dr. Zhang Hester MD Admit Provider Active Star t: December 21, 2024 Dr. Zhang Hester MD Other Provider Active Star t: December 21, 2024 Dr. Delano Harris MD Other Provider Active Start: December 21, 2024 Dr. Leyda Moore MD Other Provider Active Start: December 21, 2024 Dr. Harrison Morris MD Other Provider Active St art: December 21, 2024 Dr. Joss Cooper MD Other Provider Active Star t: December 21, 2024 Dr. Kareem Tellez MD Other Provider Active Sta rt: December 21, 2024 Dr. Pancho Costa MD Other Provider Active Star t: December 21, 2024 Dr. Eric Buenrostro MD Other Provider Active Start : December 21, 2024 Dr. Jaziel Lundberg MD Other Provider Active Star t: December 21, 2024 Dr. Basil Hunter MD Attending Provider Active Start: December 21, 2024 Dr. Basil Hunter MD Other Provider Active St art: December 21, 2024 Dr. Cecile June MD Other Provider Active Start: December 21, 2024 Dr. Bharathi Gray MD Other Provider Active S tart: December 21, 2024 Dr. Ike Dawkins MD Other Provider Active Start: December 21, 2024 Etienne Hernandez RECORDS MANAGEMENT MANAGER, RECORDS MANAGEMENT MANAGER-C Other Provider Active Start : December 21, 2024 Mariangel ROTH, PA Other Provider Active Start: December 21, 2024 IRA Mullen Other Provider Active Start: December 21, 2024 Dr. Aaron Hardin MD Other Provider Active Start: December 21, 2024 Dr. Almas Casanova MD Other Provider Active Start: December 21, 2024 Dr. Ramana Ford MD Other Provider Active Star t: December 21, 2024 Dr. Montana Leone DO Other Provider Active Start : December 21, 2024 Dr. Greg Lennon MD Other Provider Active Sta rt: December 21, 2024 Dr. Gibran Huizar MD Other Provider Active St art: December 21, 2024 Dr. Hugh Doss MD Other Provider Active S tart: December 21, 2024 Dr. Ani Smith MD Other Provider Active Start: December 21, 2024 Dr. Jak Corrigan MD Other Provider Active Start : December 21, 2024 Dr. Alfie Loyola MD Other Provider Active Start: December 21, 2024 Dr. Danny Prescott MD Other Provider Active Start : December 21, 2024 Dr. Jagruti Bunch MD Other Provider Active Star t: December 21, 2024 Dr. Renee Hernandez MD Other Provider Active Sta rt: December 21, 2024 Dr. Danyell Yang MD Other Provider Active Sta rt: December 21, 2024 Dr. Clemente Chao MD Other Provider Active Star t: December 21, 2024 Dr. Charles Carrington MD Other Provider Active St art: December 21, 2024 Dr. Jesus Sheffield MD Other Provider Active Star t: December 21, 2024 Dr. Tyrell Vasquez , DO Other Provider Active St art: December 21, 2024 Dr. Kelly Mix MD Other Provider Active Start: December 21, 2024 Dr. Fabiola Markham MD Other Provider Active St art: December 21, 2024 Dr. Scooby Beasley , Other Provider Active Start: December 21, 2024 Dr. Varinder Medel MD Other Provider Active Star t: December 21, 2024 Dr. Leno Scherer MD Other Provider Active Sta rt: December 21, 2024 Dr. Zechariah Plasencia DO Other Provider Active Star t: December 21, 2024 Dr. Eric Gutierrez DO Other Provider Active Start: December 21, 2024 Team Status: Active Member Role/Relationship Status Dates Dr. Zechariah Siddiqui MD Primary Care Provider Active Start: December 21, 2024 Dr. Oswaldo Frances , Emergency Provider Active Start : December 21, 2024 Dr. Zhang Hester MD Admit Provider Active Star t: December 21, 2024 Dr. Zhang Hester MD Other Provider Active Star t: December 21, 2024 Dr. Delano Harris MD Other Provider Active Start: December 21, 2024 Dr. Leyda Moore MD Other Provider Active Start: December 21, 2024 Dr. Harrison Morris MD Other Provider Active St art: December 21, 2024 Dr. Joss Cooper MD Other Provider Active Star t: December 21, 2024 Dr. Kareem Tellez MD Other Provider Active Sta rt: December 21, 2024 Dr. Pancho Costa MD Other Provider Active Star t: December 21, 2024 Dr. Eric Buenrostro MD Other Provider Active Start : December 21, 2024 Dr. Jaziel Lundberg MD Other Provider Active Star t: December 21, 2024 Dr. Basil Hunter MD Other Provider Active St art: December 21, 2024 Dr. Cecile June MD Other Provider Active Start: December 21, 2024 Dr. Bharathi Gray MD Other Provider Active S tart: December 21, 2024 Dr. Ike Dawkins MD Other Provider Active Start: December 21, 2024 Etienne Hernandez RECORDS MANAGEMENT MANAGER, RECORDS MANAGEMENT MANAGER-C Other Provider Active Start : December 21, 2024 Mariangel Rider PA, PA Other Provider Active Start: December 21, 2024 IRA Mullen Other Provider Active Start: December 21, 2024 Dr. Aaron Hardin MD Other Provider Active Start: December 21, 2024 Dr. Almas Casanova MD Other Provider Active Start: December 21, 2024 Dr. Ramana Ford MD Other Provider Active Star t: December 21, 2024 Dr. Montana Leone DO Other Provider Active Start : December 21, 2024 Dr. Greg Lennon MD Other Provider Active Sta rt: December 21, 2024 Dr. Gibran Huizar MD Other Provider Active St art: December 21, 2024 Dr. Hugh Doss MD Other Provider Active S tart: December 21, 2024 Dr. Ani Smith MD Other Provider Active Start: December 21, 2024 Dr. Jak Corrigan MD Other Provider Active Start : December 21, 2024 Dr. Alfie Loyola MD Other Provider Active Start: December 21, 2024 Dr. Danny Prescott MD Other Provider Active Start : December 21, 2024 Dr. Jagruti Bunch MD Other Provider Active Star t: December 21, 2024 Dr. Renee Hernandez MD Other Provider Active Sta rt: December 21, 2024 Dr. Danyell Yang MD Other Provider Active Sta rt: December 21, 2024 Dr. Clemente Chao MD Other Provider Active Star t: December 21, 2024 Dr. Charles Carrington MD Other Provider Active St art: December 21, 2024 Dr. Jesus Sheffield MD Other Provider Active Star t: December 21, 2024 Dr. Tyrell Vasquez DO Other Provider Active St art: December 21, 2024 Dr. Kelly Mix MD Other Provider Active Start: December 21, 2024 Dr. Fabiola Markham MD Other Provider Active St art: December 21, 2024 Dr. Scooby Beasley , Other Provider Active Start: December 21, 2024 Dr. Varinder Medel MD Other Provider Active Star t: December 21, 2024 Dr. Leno Scherer MD Other Provider Active Sta rt: December 21, 2024 Dr. Zechariah Plasencia , Other Provider Active Star t: December 21, 2024 Dr. Eric Gutierrez DO Other Provider Active Start: December 21, 2024 Bianka Monge PA, PA-C Attending Provider Active Start: December 21, 2024 Team Status: Active Member Role/Relationship Status Dates Dr. Zechariah Siddiqui MD Primary Care Provider Active Start: December 22, 2024 Dr. Oswaldo Frances DO Emergency Provider Active Start : December 22, 2024 Dr. Zhang Hester MD Admit Provider Active Star t: December 22, 2024 Dr. Zhang Hester MD Other Provider Active Star t: December 22, 2024 Dr. Delano Harris MD Other Provider Active Start: December 22, 2024 Dr. Leyda Moore MD Other Provider Active Start: December 22, 2024 Dr. Harrison Morris MD Other Provider Active St art: December 22, 2024 Dr. Joss Cooper MD Other Provider Active Star t: December 22, 2024 Dr. Kareem Tellez MD Other Provider Active Sta rt: December 22, 2024 Dr. Pancho Costa MD Other Provider Active Star t: December 22, 2024 Dr. Eric Buenrostro MD Other Provider Active Start : December 22, 2024 Dr. Jaziel Lundberg MD Other Provider Active Star t: December 22, 2024 Dr. Basil Hunter MD Other Provider Active St art: December 22, 2024 Dr. Cecile June MD Other Provider Active Start: December 22, 2024 Dr. Bharathi Gray MD Other Provider Active S tart: December 22, 2024 Dr. Ike Dawkins MD Other Provider Active Start: December 22, 2024 Etienne Hernandez RECORDS MANAGEMENT MANAGER, RECORDS MANAGEMENT MANAGER-C Other Provider Active Start : December 22, 2024 Mariangel Rider PA, PA Other Provider Active Start: December 22, 2024 IRA Mullen Other Provider Active Start: December 22, 2024 Dr. Aaron Hardin MD Other Provider Active Start: December 22, 2024 Dr. Almas Casanova MD Other Provider Active Start: December 22, 2024 Dr. Ramana Ford MD Other Provider Active Star t: December 22, 2024 Dr. Montana Leone , Other Provider Active Start : December 22, 2024 Dr. Greg Lennon MD Other Provider Active Sta rt: December 22, 2024 Dr. Gibran Huizar MD Other Provider Active St art: December 22, 2024 Dr. Hugh Doss MD Other Provider Active S tart: December 22, 2024 Dr. Ani Smith MD Other Provider Active Start: December 22, 2024 Dr. Jak Corrigan MD Other Provider Active Start : December 22, 2024 Dr. Alfie Loyola MD Other Provider Active Start: December 22, 2024 Dr. Danny Prescott MD Other Provider Active Start : December 22, 2024 Dr. Jagruti Bunch MD Other Provider Active Star t: December 22, 2024 Dr. Renee Hernandez MD Other Provider Active Sta rt: December 22, 2024 Dr. Danyell Yang MD Other Provider Active Sta rt: December 22, 2024 Dr. Clemente Chao MD Other Provider Active Star t: December 22, 2024 Dr. hCarles Carrington MD Other Provider Active St art: December 22, 2024 Dr. Jesus Sheffield MD Other Provider Active Star t: December 22, 2024 Dr. Tyrell Vasquez , Other Provider Active St art: December 22, 2024 Dr. Kelly Mix MD Other Provider Active Start: December 22, 2024 Dr. Fabiola Markham MD Other Provider Active St art: December 22, 2024 Dr. Scooby Beasley DO Other Provider Active Start: December 22, 2024 Dr. Varinder Medel MD Other Provider Active Star t: December 22, 2024 Dr. Leno Scherer MD Other Provider Active Sta rt: December 22, 2024 Dr. Eric Gutierrez , Other Provider Active Start: December 22, 2024 Dr. Zechariah Plasencia DO Attending Provider Active Start: December 22, 2024 Dr. Zechariah Plasencia , Other Provider Active Star t: December 22, 2024 Team Status: Active Member Role/Relationship Status Dates Dr. Zechariah Siddiqui MD Primary Care Provider Active Start: December 22, 2024 Dr. Oswaldo Frances DO Emergency Provider Active Start : December 22, 2024 Dr. Zhang Hester MD Admit Provider Active Star t: December 22, 2024 Dr. Zhang Hester MD Other Provider Active Star t: December 22, 2024 Dr. Delano Harris MD Other Provider Active Start: December 22, 2024 Dr. Leyda Moore MD Other Provider Active Start: December 22, 2024 Dr. Harrison Mroris MD Other Provider Active St art: December 22, 2024 Dr. Joss Cooper MD Other Provider Active Star t: December 22, 2024 Dr. Kareem Tellez MD Other Provider Active Sta rt: December 22, 2024 Dr. Pancho Costa MD Other Provider Active Star t: December 22, 2024 Dr. Eric Buenrostro MD Other Provider Active Start : December 22, 2024 Dr. Jaziel Lundberg MD Other Provider Active Star t: December 22, 2024 Dr. Basil Hunter MD Attending Provider Active Start: December 22, 2024 Dr. Basil Hunter MD Other Provider Active St art: December 22, 2024 Dr. Cecile June MD Other Provider Active Start: December 22, 2024 Dr. Bharathi Gray MD Other Provider Active S tart: December 22, 2024 Dr. Ike Dawkins MD Other Provider Active Start: December 22, 2024 Etienne Hernandez RECORDS MANAGEMENT MANAGER, RECORDS MANAGEMENT MANAGER-C Other Provider Active Start : December 22, 2024 Mariangel Rider PA, PA Other Provider Active Start: December 22, 2024 IRA Mullen Other Provider Active Start: December 22, 2024 Dr. Aaron Hardin MD Other Provider Active Start: December 22, 2024 Dr. Almas Casanova MD Other Provider Active Start: December 22, 2024 Dr. Ramana Ford MD Other Provider Active Star t: December 22, 2024 Dr. Montana Leone DO Other Provider Active Start : December 22, 2024 Dr. Greg Lennon MD Other Provider Active Sta rt: December 22, 2024 Dr. Gibran Huizar MD Other Provider Active St art: December 22, 2024 Dr. Hugh Doss MD Other Provider Active S tart: December 22, 2024 Dr. Ani Smith MD Other Provider Active Start: December 22, 2024 Dr. Jak Corrigan MD Other Provider Active Start : December 22, 2024 Dr. Alfie Loyola MD Other Provider Active Start: December 22, 2024 Dr. Danny Prescott MD Other Provider Active Start : December 22, 2024 Dr. Jagruti Bunch MD Other Provider Active Star t: December 22, 2024 Dr. Renee Hernandez MD Other Provider Active Sta rt: December 22, 2024 Dr. Danyell Yang MD Other Provider Active Sta rt: December 22, 2024 Dr. Clemente Chao MD Other Provider Active Star t: December 22, 2024 Dr. Charles Carrington MD Other Provider Active St art: December 22, 2024 Dr. Jesus Sheffield MD Other Provider Active Star t: December 22, 2024 Dr. Tyrell Vasquez DO Other Provider Active St art: December 22, 2024 Dr. Kelly Mix MD Other Provider Active Start: December 22, 2024 Dr. Fabiola Markham MD Other Provider Active St art: December 22, 2024 Dr. Scooby Beasley DO Other Provider Active Start: December 22, 2024 Dr. Varinder Medel MD Other Provider Active Star t: December 22, 2024 Dr. Leno Scherer MD Other Provider Active Sta rt: December 22, 2024 Dr. rEic Gutierrez DO Other Provider Active Start: December 22, 2024 Dr. Zechariah Plasencia DO Other Provider Active Star t: December 22, 2024 Team Status: Active Member Role/Relationship Status Dates Dr. Zechariah Siddiqui MD Primary Care Provider Active Start: December 22, 2024 Dr. Oswaldo Frances , Emergency Provider Active Start : December 22, 2024 Dr. Zhang Hester MD Admit Provider Active Star t: December 22, 2024 Dr. Zhang Hester MD Other Provider Active Star t: December 22, 2024 Dr. Delano Harris MD Other Provider Active Start: December 22, 2024 Dr. Leyda Moore MD Other Provider Active Start: December 22, 2024 Dr. Harrison Morris MD Other Provider Active St art: December 22, 2024 Dr. Joss Cooper MD Other Provider Active Star t: December 22, 2024 Dr. Kareem Tellez MD Other Provider Active Sta rt: December 22, 2024 Dr. Pancho Costa MD Other Provider Active Star t: December 22, 2024 Dr. Eric Buenrostro MD Other Provider Active Start : December 22, 2024 Dr. Jaziel Lundberg MD Other Provider Active Star t: December 22, 2024 Dr. Basil Hunter MD Other Provider Active St art: December 22, 2024 Dr. Cecile June MD Other Provider Active Start: December 22, 2024 Dr. Bharathi Gray MD Other Provider Active S tart: December 22, 2024 Dr. Ike Dawkins MD Other Provider Active Start: December 22, 2024 Etienne Hernandez RECORDS MANAGEMENT MANAGER, RECORDS MANAGEMENT MANAGER-C Other Provider Active Start : December 22, 2024 Mariangel Rider PA, PA Other Provider Active Start: December 22, 2024 IRA Mullen Other Provider Active Start: December 22, 2024 Dr. Aaron Hardin MD Other Provider Active Start: December 22, 2024 Dr. Almas Casanova MD Other Provider Active Start: December 22, 2024 Dr. Ramana Ford MD Other Provider Active Star t: December 22, 2024 Dr. Montana Leone DO Other Provider Active Start : December 22, 2024 Dr. Greg Lennon MD Other Provider Active Sta rt: December 22, 2024 Dr. Gibran Huizar MD Other Provider Active St art: December 22, 2024 Dr. Hugh Doss MD Other Provider Active S tart: December 22, 2024 Dr. Ani Smith MD Other Provider Active Start: December 22, 2024 Dr. Jak Corrigan MD Other Provider Active Start : December 22, 2024 Dr. Alfie Loyola MD Other Provider Active Start: December 22, 2024 Dr. Danny Prescott MD Other Provider Active Start : December 22, 2024 Dr. Jagruti Bunch MD Other Provider Active Star t: December 22, 2024 Dr. Renee Hernandez MD Other Provider Active Sta rt: December 22, 2024 Dr. Danyell Yang MD Other Provider Active Sta rt: December 22, 2024 Dr. Clemente Chao MD Other Provider Active Star t: December 22, 2024 Dr. Charles Carrington MD Other Provider Active St art: December 22, 2024 Dr. Jesus Shefifeld MD Other Provider Active Star t: December 22, 2024 Dr. Tyrell Vasquez DO Other Provider Active St art: December 22, 2024 Dr. Kelly Mix MD Other Provider Active Start: December 22, 2024 Dr. Fabiola Markham MD Other Provider Active St art: December 22, 2024 Dr. Scooby Beasley DO Other Provider Active Start: December 22, 2024 Dr. Varinder Medel MD Other Provider Active Star t: December 22, 2024 Dr. Leno Scherer MD Other Provider Active Sta rt: December 22, 2024 Dr. Eric Gutierrez DO Other Provider Active Start: December 22, 2024 Dr. Zechariah Plasencia DO Other Provider Active Star t: December 22, 2024 Dr. Adeline Rivera MD Attending Provider Active Start: December 22, 2024 Team Status: Active Member Role/Relationship Status Dates Dr. Dedrick Alexander MD Attending Provider Active Start: December 22, 2024 Dr. Zechariah Plasencia DO Referring Provider Active Start: December 22, 2024 Team Status: Inactive Member Role/Relationship Status Dates Dr. Zechariah Siddiqui MD Primary Care Provider Active Start: March 03, 2025 End: March 03, 2025 Dr. Zechariah Siddiqui MD Referring Provider Active St art: March 03, 2025 End: March 03, 2025 Dr. Basil Hunter MD Attending Provider Active Start: March 03, 2025 End: March 03, 2025 Team Status: Active Member Role/Relationship Status Dates Dr. Zechariah Siddiqui MD Primary care physician Active Team Status: Inactive Member Role/Relationship Status Dates Dr. Zechariah Siddiqui MD Primary care physician Active Start: December 13, 2024 End: December 22, 2024 Dr. Oswaldo Frances DO Emergency Department Physician Active Start: December 13, 2024 End: December 22, 2024 Dr. Zhang Hester MD Admitting physician Active Start: December 13, 2024 End: December 22, 2024 Dr. Zhang Hester MD Nurse Practitioner Active Start: December 13, 2024 End: December 22, 2024 Dr. Delano Harris MD Nurse Practitioner Active Start: December 13, 2024 End: December 22, 2024 Dr. Leyda Moore MD Nurse Practitioner Active St art: December 13, 2024 End: December 22, 2024 Dr. Harrison Morris MD Nurse Practitioner Active Start: December 13, 2024 End: December 22, 2024 Dr. Joss Cooper MD Nurse Practitioner Active Start: December 13, 2024 End: December 22, 2024 Dr. Kareem Tellez MD Nurse Practitioner Active Start: December 13, 2024 End: December 22, 2024 Dr. Pancho Costa MD Nurse Practitioner Active Start: December 13, 2024 End: December 22, 2024 Dr. Eric Buenrostro MD Nurse Practitioner Active S tart: December 13, 2024 End: December 22, 2024 Dr. Jaziel Lundberg MD Nurse Practitioner Active Start: December 13, 2024 End: December 22, 2024 Dr. Basil Hunter MD Nurse Practitioner Active Start: December 13, 2024 End: December 22, 2024 Dr. Cecile June MD Nurse Practitioner Activ e Start: December 13, 2024 End: December 22, 2024 Dr. Bharathi Gray MD Nurse Practitioner Active Start: December 13, 2024 End: December 22, 2024 Dr. Ike Dawkins MD Nurse Practitioner Active Start: December 13, 2024 End: December 22, 2024 Etienne Hernandez RECORDS MANAGEMENT MANAGER, RECORDS MANAGEMENT MANAGER-C Nurse Practitioner Active S tart: December 13, 2024 End: December 22, 2024 Mariangel Rider PA, PA Nurse Practitioner Active Start: December 13, 2024 End: December 22, 2024 IRA Mullen Nurse Practitioner Active St art: December 13, 2024 End: December 22, 2024 Dr. Aaron Hardin MD Nurse Practitioner Active Start: December 13, 2024 End: December 22, 2024 Dr. Almas Casanova MD Nurse Practitioner Active Sta rt: December 13, 2024 End: December 22, 2024 Dr. Ramana Ford MD Nurse Practitioner Active Start: December 13, 2024 End: December 22, 2024 Dr. Montana Leone , Nurse Practitioner Active S tart: December 13, 2024 End: December 22, 2024 Dr. Greg Lennon MD Nurse Practitioner Active Start: December 13, 2024 End: December 22, 2024 Dr. Gibran Huizar MD Nurse Practitioner Active Start: December 13, 2024 End: December 22, 2024 Dr. Hugh Doss MD Nurse Practitioner Active Start: December 13, 2024 End: December 22, 2024 Dr. Ani Smith MD Nurse Practitioner Active Start: December 13 End: December 22, 2024 Dr. Jak Corrigan MD Nurse Practitioner Active S tart: December 13, 2024 End: December 22, 2024 Dr. Alfie Loyola MD Nurse Practitioner Active St art: December 13, 2024 End: December 22, 2024 Dr. Danny Prescott MD Nurse Practitioner Active S tart: December 13, 2024 End: December 22, 2024 Dr. Jagruti Bunch MD Nurse Practitioner Active Start: December 13, 2024 End: December 22, 2024 Dr. Renee Hernandez MD Nurse Practitioner Active Start: December 13, 2024 End: December 22, 2024 Dr. Danyell Yang MD Nurse Practitioner Active Start: December 13, 2024 End: December 22, 2024 Dr. Clemente Chao MD Nurse Practitioner Active Start: December 13, 2024 End: December 22, 2024 Dr. Charles Carrington MD Nurse Practitioner Active Start: December 13, 2024 End: December 22, 2024 Dr. Jesus Sheffield MD Nurse Practitioner Active Start: December 13, 2024 End: December 22, 2024 Dr. Tyrell Vasquez DO Nurse Practitioner Active Start: December 13, 2024 End: December 22, 2024 Dr. Kelly Mix MD Nurse Practitioner Active St art: December 13, 2024 End: December 22, 2024 Dr. Fabiola Markham MD Nurse Practitioner Active Start: December 13, 2024 End: December 22, 2024 Dr. Scooby Beasley DO Nurse Practitioner Active Start: December 13, 2024 End: December 22, 2024 Dr. Varinder Medel MD Nurse Practitioner Active Start: December 13, 2024 End: December 22, 2024 Dr. Leno Scherer MD Nurse Practitioner Active Start: December 13, 2024 End: December 22, 2024 Dr. Eric Gutierrez , Nurse Practitioner Active Start: December 13, 2024 End: December 22, 2024 Dr. Zechariah Plasencia DO Attending physician Active Start: December 13, 2024 End: December 22, 2024 Team Status: Active Member Role/Relationship Status Dates Dr. Zechariah Siddiqui MD Primary care physician Active Start: December 21, 2024 Dr. Oswaldo Frances DO Emergency Department Physician Active Start: December 21, 2024 Dr. Zhang Hester MD Admitting physician Active Start: December 21, 2024 Dr. Zhang Hester MD Nurse Practitioner Active Start: December 21, 2024 Dr. Delano Harris MD Nurse Practitioner Active Start: December 21, 2024 Dr. Leyda Moore MD Nurse Practitioner Active St art: December 21, 2024 Dr. Harrison Morris MD Nurse Practitioner Active Start: December 21, 2024 Dr. Joss Cooper MD Nurse Practitioner Active Start: December 21, 2024 Dr. Kareem Tellez MD Nurse Practitioner Active Start: December 21, 2024 Dr. Pancho Costa MD Nurse Practitioner Active Start: December 21, 2024 Dr. Eric Buenrostro MD Nurse Practitioner Active S tart: December 21, 2024 Dr. Jaziel Lundbreg MD Nurse Practitioner Active Start: December 21, 2024 Dr. Basil Hunter MD Nurse Practitioner Active Start: December 21, 2024 Dr. Cecile June MD Nurse Practitioner Activ e Start: December 21, 2024 Dr. Bharathi Gray MD Nurse Practitioner Active Start: December 21, 2024 Dr. Ike Dawkins MD Nurse Practitioner Active Start: December 21, 2024 Etienne Hernandez RECORDS MANAGEMENT MANAGER, RECORDS MANAGEMENT MANAGER-C Nurse Practitioner Active S tart: December 21, 2024 Mariangel Rider PA, PA Nurse Practitioner Active Start: December 21, 2024 IRA Mullen Nurse Practitioner Active St art: December 21, 2024 Dr. Aaron Hardin MD Nurse Practitioner Active Start: December 21, 2024 Dr. Almas Casanova MD Nurse Practitioner Active Sta rt: December 21, 2024 Dr. Ramana Ford MD Nurse Practitioner Active Start: December 21, 2024 Dr. Montana Leone , DO Nurse Practitioner Active S tart: December 21, 2024 Dr. Greg Lennon MD Nurse Practitioner Active Start: December 21, 2024 Dr. Gibrna Huizar MD Nurse Practitioner Active Start: December 21, 2024 Dr. Hugh Doss MD Nurse Practitioner Active Start: December 21, 2024 Dr. Ani Smith MD Nurse Practitioner Active Start: December 21 Dr. Jak Corrigan MD Nurse Practitioner Active S tart: December 21, 2024 Dr. Alfie Loyola MD Nurse Practitioner Active St art: December 21, 2024 Dr. Danny Prescott MD Nurse Practitioner Active S tart: December 21, 2024 Dr. Jagruti Bunch MD Nurse Practitioner Active Start: December 21, 2024 Dr. Renee Hernandez MD Nurse Practitioner Active Start: December 21, 2024 Dr. Danyell Yang MD Nurse Practitioner Active Start: December 21, 2024 Dr. Clemente Chao MD Nurse Practitioner Active Start: December 21, 2024 Dr. Charles Carrington MD Nurse Practitioner Active Start: December 21, 2024 Dr. Jesus Sheffield MD Nurse Practitioner Active Start: December 21, 2024 Dr. Tyrell Vasquez , Nurse Practitioner Active Start: December 21, 2024 Dr. Kelly Mix MD Nurse Practitioner Active St art: December 21, 2024 Dr. Fabiola Markham MD Nurse Practitioner Active Start: December 21, 2024 Dr. Scooby Beasley , Nurse Practitioner Active Start: December 21, 2024 Dr. Varinder Medel MD Nurse Practitioner Active Start: December 21, 2024 Dr. Leno Scherer MD Nurse Practitioner Active Start: December 21, 2024 Dr. Zechariah Plasencia DO Attending physician Active Start: December 21, 2024 Dr. Zechariah Plasencia DO Nurse Practitioner Active Start: December 21, 2024 Dr. Eric Gutierrez , Nurse Practitioner Active Start: December 21, 2024 Team Status: Active Member Role/Relationship Status Dates Dr. Zechariah Siddiqui MD Primary care physician Active Start: December 21, 2024 Dr. Oswaldo Frances , DO Emergency Department Physician Active Start: December 21, 2024 Dr. Zhang Hester MD Admitting physician Active Start: December 21, 2024 Dr. Zhang Hester MD Nurse Practitioner Active Start: December 21, 2024 Dr. Delano Harris MD Nurse Practitioner Active Start: December 21, 2024 Dr. Leyda Moore MD Nurse Practitioner Active St art: December 21, 2024 Dr. Harrison Morris MD Nurse Practitioner Active Start: December 21, 2024 Dr. Joss Cooper MD Nurse Practitioner Active Start: December 21, 2024 Dr. Kareem Tellez MD Nurse Practitioner Active Start: December 21, 2024 Dr. Pancho Costa MD Nurse Practitioner Active Start: December 21, 2024 Dr. Eric Buenrostro MD Nurse Practitioner Active S tart: December 21, 2024 Dr. Jaziel Lundberg MD Nurse Practitioner Active Start: December 21, 2024 Dr. Basil Hunter MD Attending physician Active Start: December 21, 2024 Dr. Basil Hunter MD Nurse Practitioner Active Start: December 21, 2024 Dr. Cecile June MD Nurse Practitioner Activ e Start: December 21, 2024 Dr. Bharathi Gray MD Nurse Practitioner Active Start: December 21, 2024 Dr. Ike Dawkins MD Nurse Practitioner Active Start: December 21, 2024 Etienne Hernandez RECORDS MANAGEMENT MANAGER, RECORDS MANAGEMENT MANAGER-C Nurse Practitioner Active S tart: December 21, 2024 Mariangel Rider PA, PA Nurse Practitioner Active Start: December 21, 2024 IRA Mullen Nurse Practitioner Active St art: December 21, 2024 Dr. Aaron Hardin MD Nurse Practitioner Active Start: December 21, 2024 Dr. Almas Casanova MD Nurse Practitioner Active Sta rt: December 21, 2024 Dr. Ramana Ford MD Nurse Practitioner Active Start: December 21, 2024 Dr. Montana Leone , Nurse Practitioner Active S tart: December 21, 2024 Dr. Greg Lennon MD Nurse Practitioner Active Start: December 21, 2024 Dr. Gibran Huizar MD Nurse Practitioner Active Start: December 21, 2024 Dr. Hugh Doss MD Nurse Practitioner Active Start: December 21, 2024 Dr. Ani Smith MD Nurse Practitioner Active Start: December 21 Dr. Jak Corrigan MD Nurse Practitioner Active S tart: December 21, 2024 Dr. Alfie Loyola MD Nurse Practitioner Active St art: December 21, 2024 Dr. Danny Prescott MD Nurse Practitioner Active S tart: December 21, 2024 Dr. Jagruti Bunch MD Nurse Practitioner Active Start: December 21, 2024 Dr. Renee Hernandez MD Nurse Practitioner Active Start: December 21, 2024 Dr. Danyell Yang MD Nurse Practitioner Active Start: December 21, 2024 Dr. Clemente Choa MD Nurse Practitioner Active Start: December 21, 2024 Dr. Charles Carrington MD Nurse Practitioner Active Start: December 21, 2024 Dr. Jesus Sheffield MD Nurse Practitioner Active Start: December 21, 2024 Dr. Tyrell Vasquez , DO Nurse Practitioner Active Start: December 21, 2024 Dr. Kelly Mix MD Nurse Practitioner Active St art: December 21, 2024 Dr. Fabiola Markham MD Nurse Practitioner Active Start: December 21, 2024 Dr. Scooby Beasley , DO Nurse Practitioner Active Start: December 21, 2024 Dr. Varinder Medel MD Nurse Practitioner Active Start: December 21, 2024 Dr. Leno Scherer MD Nurse Practitioner Active Start: December 21, 2024 Dr. Zechariah Plasencia , Nurse Practitioner Active Start: December 21, 2024 Dr. Eric Gutierrez , DO Nurse Practitioner Active Start: December 21, 2024 Team Status: Active Member Role/Relationship Status Dates Dr. Zechariah Siddiqui MD Primary care physician Active Start: December 21, 2024 Dr. Oswaldo Frances DO Emergency Department Physician Active Start: December 21, 2024 Dr. Zhang Hester MD Admitting physician Active Start: December 21, 2024 Dr. Zhang Hester MD Nurse Practitioner Active Start: December 21, 2024 Dr. Delano Harris MD Nurse Practitioner Active Start: December 21, 2024 Dr. Leyda Moore MD Nurse Practitioner Active St art: December 21, 2024 Dr. Harrison Morris MD Nurse Practitioner Active Start: December 21, 2024 Dr. Joss Cooper MD Nurse Practitioner Active Start: December 21, 2024 Dr. Kareem Tellez MD Nurse Practitioner Active Start: December 21, 2024 Dr. Pancho Costa MD Nurse Practitioner Active Start: December 21, 2024 Dr. Eric Buenrostro MD Nurse Practitioner Active S tart: December 21, 2024 Dr. Jaziel Lundberg MD Nurse Practitioner Active Start: December 21, 2024 Dr. Basil Hunter MD Nurse Practitioner Active Start: December 21, 2024 Dr. Cecile June MD Nurse Practitioner Activ e Start: December 21, 2024 Dr. Bharathi Gray MD Nurse Practitioner Active Start: December 21, 2024 Dr. Ike Dawkins MD Nurse Practitioner Active Start: December 21, 2024 Etienne Hernandez RECORDS MANAGEMENT MANAGER, RECORDS MANAGEMENT MANAGER-C Nurse Practitioner Active S tart: December 21, 2024 Mariangel Rider PA, PA Nurse Practitioner Active Start: December 21, 2024 IRA Mullen Nurse Practitioner Active St art: December 21, 2024 Dr. Aaron Hardin MD Nurse Practitioner Active Start: December 21, 2024 Dr. Almas Casanova MD Nurse Practitioner Active Sta rt: December 21, 2024 Dr. Ramana Ford MD Nurse Practitioner Active Start: December 21, 2024 Dr. Montana Leone DO Nurse Practitioner Active S tart: December 21, 2024 Dr. rGeg Lennon MD Nurse Practitioner Active Start: December 21, 2024 Dr. Gibran Huizar MD Nurse Practitioner Active Start: December 21, 2024 Dr. Hugh Doss MD Nurse Practitioner Active Start: December 21, 2024 Dr. Ani Smith MD Nurse Practitioner Active Start: December 21 Dr. Jak Corrigan MD Nurse Practitioner Active S tart: December 21, 2024 Dr. Alfie Looyla MD Nurse Practitioner Active St art: December 21, 2024 Dr. Danny Prescott MD Nurse Practitioner Active S tart: December 21, 2024 Dr. Jagruti Bunch MD Nurse Practitioner Active Start: December 21, 2024 Dr. Renee Hernandez MD Nurse Practitioner Active Start: December 21, 2024 Dr. Danyell Yang MD Nurse Practitioner Active Start: December 21, 2024 Dr. Clemente Chao MD Nurse Practitioner Active Start: December 21, 2024 Dr. Charles Carrington MD Nurse Practitioner Active Start: December 21, 2024 Dr. Jesus Sheffield MD Nurse Practitioner Active Start: December 21, 2024 Dr. Tyrell Vasquez , Nurse Practitioner Active Start: December 21, 2024 Dr. Kelly Mix MD Nurse Practitioner Active St art: December 21, 2024 Dr. Fabiola Markham MD Nurse Practitioner Active Start: December 21, 2024 Dr. Scooby Beasley , Nurse Practitioner Active Start: December 21, 2024 Dr. Varinder Medel MD Nurse Practitioner Active Start: December 21, 2024 Dr. Leno Scherer MD Nurse Practitioner Active Start: December 21, 2024 Dr. Zechariah Plasencia , Nurse Practitioner Active Start: December 21, 2024 Dr. Eric Gutierrez , Nurse Practitioner Active Start: December 21, 2024 Bianka ROTH PA-C Attending physician Active Start: December 21, 2024 Team Status: Active Member Role/Relationship Status Dates Dr. Zechariah Siddiqui MD Primary care physician Active Start: December 22, 2024 Dr. Oswaldo Frances DO Emergency Department Physician Active Start: December 22, 2024 Dr. Zhang Hester MD Admitting physician Active Start: December 22, 2024 Dr. Zhang Hester MD Nurse Practitioner Active Start: December 22, 2024 Dr. Delano Harris MD Nurse Practitioner Active Start: December 22, 2024 Dr. Leyda Moore MD Nurse Practitioner Active St art: December 22, 2024 Dr. Harrison Morris MD Nurse Practitioner Active Start: December 22, 2024 Dr. Joss Cooper MD Nurse Practitioner Active Start: December 22, 2024 Dr. Kareem Tellez MD Nurse Practitioner Active Start: December 22, 2024 Dr. Pancho Costa MD Nurse Practitioner Active Start: December 22, 2024 Dr. Eric Buenrostro MD Nurse Practitioner Active S tart: December 22, 2024 Dr. Jaziel Lundberg MD Nurse Practitioner Active Start: December 22, 2024 Dr. Basil Hunter MD Nurse Practitioner Active Start: December 22, 2024 Dr. Cecile June MD Nurse Practitioner Activ e Start: December 22, 2024 Dr. Bharathi Gray MD Nurse Practitioner Active Start: December 22, 2024 Dr. Ike Dawkins MD Nurse Practitioner Active Start: December 22, 2024 Etienne Hernandez RECORDS MANAGEMENT MANAGER, RECORDS MANAGEMENT MANAGER-C Nurse Practitioner Active S tart: December 22, 2024 Mariangel Rider PA, PA Nurse Practitioner Active Start: December 22, 2024 IRA Mullen Nurse Practitioner Active St art: December 22, 2024 Dr. Aaron Hardin MD Nurse Practitioner Active Start: December 22, 2024 Dr. Almas Casanova MD Nurse Practitioner Active Sta rt: December 22, 2024 Dr. Ramana Ford MD Nurse Practitioner Active Start: December 22, 2024 Dr. Montana Leone , Nurse Practitioner Active S tart: December 22, 2024 Dr. Greg Lennon MD Nurse Practitioner Active Start: December 22, 2024 Dr. Gibran Huizar MD Nurse Practitioner Active Start: December 22, 2024 Dr. Hugh Doss MD Nurse Practitioner Active Start: December 22, 2024 Dr. Ani Smith MD Nurse Practitioner Active Start: December 22 Dr. Jak Corrigan MD Nurse Practitioner Active S tart: December 22, 2024 Dr. Alfie Loyola MD Nurse Practitioner Active St art: December 22, 2024 Dr. Danny Prescott MD Nurse Practitioner Active S tart: December 22, 2024 Dr. Jagruti Bunch MD Nurse Practitioner Active Start: December 22, 2024 Dr. Renee Hernandez MD Nurse Practitioner Active Start: December 22, 2024 Dr. Danyell Yang MD Nurse Practitioner Active Start: December 22, 2024 Dr. Clemente Chao MD Nurse Practitioner Active Start: December 22, 2024 Dr. Charles Carrington MD Nurse Practitioner Active Start: December 22, 2024 Dr. Jesus Sheffield MD Nurse Practitioner Active Start: December 22, 2024 Dr. Tyrell Vasquez , Nurse Practitioner Active Start: December 22, 2024 Dr. Kelly Mix MD Nurse Practitioner Active St art: December 22, 2024 Dr. Fabiola Markham MD Nurse Practitioner Active Start: December 22, 2024 Dr. Scooby Beasley , Nurse Practitioner Active Start: December 22, 2024 Dr. Varinder Medel MD Nurse Practitioner Active Start: December 22, 2024 Dr. Leno Scherer MD Nurse Practitioner Active Start: December 22, 2024 Dr. Eric Gutierrez DO Nurse Practitioner Active Start: December 22, 2024 Dr. Zechariah Plasencia DO Attending physician Active Start: December 22, 2024 Dr. Zechariah Plasencia DO Nurse Practitioner Active Start: December 22, 2024 Team Status: Active Member Role/Relationship Status Dates Dr. Zechariah Siddiqui MD Primary care physician Active Start: December 22, 2024 Dr. Oswaldo Frances DO Emergency Department Physician Active Start: December 22, 2024 Dr. Zhang Hester MD Admitting physician Active Start: December 22, 2024 Dr. hZang Hester MD Nurse Practitioner Active Start: December 22, 2024 Dr. Delano Harris MD Nurse Practitioner Active Start: December 22, 2024 Dr. Leyda Moore MD Nurse Practitioner Active St art: December 22, 2024 Dr. Harrison Morris MD Nurse Practitioner Active Start: December 22, 2024 Dr. Joss Cooper MD Nurse Practitioner Active Start: December 22, 2024 Dr. Kareem Tellez MD Nurse Practitioner Active Start: December 22, 2024 Dr. Pancho Costa MD Nurse Practitioner Active Start: December 22, 2024 Dr. Eric Buenrostro MD Nurse Practitioner Active S tart: December 22, 2024 Dr. Jaziel Lundberg MD Nurse Practitioner Active Start: December 22, 2024 Dr. Basil Hunter MD Attending physician Active Start: December 22, 2024 Dr. Basil Hunter MD Nurse Practitioner Active Start: December 22, 2024 Dr. Cecile June MD Nurse Practitioner Activ e Start: December 22, 2024 Dr. Bharathi Gray MD Nurse Practitioner Active Start: December 22, 2024 Dr. Ike Dawkins MD Nurse Practitioner Active Start: December 22, 2024 Etienne Hernandez RECORDS MANAGEMENT MANAGER, RECORDS MANAGEMENT MANAGER-C Nurse Practitioner Active S tart: December 22, 2024 Mariangel Rider PA, PA Nurse Practitioner Active Start: December 22, 2024 IRA Mullen Nurse Practitioner Active St art: December 22, 2024 Dr. Aaron Hardin MD Nurse Practitioner Active Start: December 22, 2024 Dr. Almas Casanova MD Nurse Practitioner Active Sta rt: December 22, 2024 Dr. Ramana Ford MD Nurse Practitioner Active Start: December 22, 2024 Dr. Montana Leone , Nurse Practitioner Active S tart: December 22, 2024 Dr. Greg Lennon MD Nurse Practitioner Active Start: December 22, 2024 Dr. Gibran Huizar MD Nurse Practitioner Active Start: December 22, 2024 Dr. Hugh Doss MD Nurse Practitioner Active Start: December 22, 2024 Dr. Ani Smith MD Nurse Practitioner Active Start: December 22 Dr. Jak Corrigan MD Nurse Practitioner Active S tart: December 22, 2024 Dr. Alfie Loyola MD Nurse Practitioner Active St art: December 22, 2024 Dr. Danny Prescott MD Nurse Practitioner Active S tart: December 22, 2024 Dr. Jagruti Bunch MD Nurse Practitioner Active Start: December 22, 2024 Dr. Renee Hernandez MD Nurse Practitioner Active Start: December 22, 2024 Dr. Danyell Yang MD Nurse Practitioner Active Start: December 22, 2024 Dr. Clemente Chao MD Nurse Practitioner Active Start: December 22, 2024 Dr. Charles Carrington MD Nurse Practitioner Active Start: December 22, 2024 Dr. Jesus Sheffield MD Nurse Practitioner Active Start: December 22, 2024 Dr. Tyrell Vasquez , Nurse Practitioner Active Start: December 22, 2024 Dr. Kelly Mix MD Nurse Practitioner Active St art: December 22, 2024 Dr. Fabiola Markham MD Nurse Practitioner Active Start: December 22, 2024 Dr. Scooby Beasley DO Nurse Practitioner Active Start: December 22, 2024 Dr. Varinder Medel MD Nurse Practitioner Active Start: December 22, 2024 Dr. Leno Scherer MD Nurse Practitioner Active Start: December 22, 2024 Dr. Eric Gutierrez , Nurse Practitioner Active Start: December 22, 2024 Dr. Zechariah Plasencia , Nurse Practitioner Active Start: December 22, 2024 Team Status: Active Member Role/Relationship Status Dates Dr. Zechariah Siddiqui MD Primary care physician Active Start: December 22, 2024 Dr. Oswaldo Frances DO Emergency Department Physician Active Start: December 22, 2024 Dr. Zhang Hester MD Admitting physician Active Start: December 22, 2024 Dr. Zhang Hester MD Nurse Practitioner Active Start: December 22, 2024 Dr. Delano Harris MD Nurse Practitioner Active Start: December 22, 2024 Dr. Leyda Moore MD Nurse Practitioner Active St art: December 22, 2024 Dr. Harrison Morris MD Nurse Practitioner Active Start: December 22, 2024 Dr. Joss Cooper MD Nurse Practitioner Active Start: December 22, 2024 Dr. Kareem Tellez MD Nurse Practitioner Active Start: December 22, 2024 Dr. Pancho Costa MD Nurse Practitioner Active Start: December 22, 2024 Dr. Eric Buenrostro MD Nurse Practitioner Active S tart: December 22, 2024 Dr. Jaziel Lundberg MD Nurse Practitioner Active Start: December 22, 2024 Dr. Basil Hunter MD Nurse Practitioner Active Start: December 22, 2024 Dr. Cecile June MD Nurse Practitioner Activ e Start: December 22, 2024 Dr. Bharathi Gray MD Nurse Practitioner Active Start: December 22, 2024 Dr. Ike Dawkins MD Nurse Practitioner Active Start: December 22, 2024 Etienne Hernandez RECORDS MANAGEMENT MANAGER, RECORDS MANAGEMENT MANAGER-C Nurse Practitioner Active S tart: December 22, 2024 Mariangel Rider PA, PA Nurse Practitioner Active Start: December 22, 2024 IRA Mullen Nurse Practitioner Active St art: December 22, 2024 Dr. Aaron Hardin MD Nurse Practitioner Active Start: December 22, 2024 Dr. Almas Casanova MD Nurse Practitioner Active Sta rt: December 22, 2024 Dr. Ramana Ford MD Nurse Practitioner Active Start: December 22, 2024 Dr. Montana Leone DO Nurse Practitioner Active S tart: December 22, 2024 Dr. Greg Lennon MD Nurse Practitioner Active Start: December 22, 2024 Dr. Gibran Huizar MD Nurse Practitioner Active Start: December 22, 2024 Dr. Hugh Doss MD Nurse Practitioner Active Start: December 22, 2024 Dr. Ani Smith MD Nurse Practitioner Active Start: December 22 Dr. Jak Corrigan MD Nurse Practitioner Active S tart: December 22, 2024 Dr. Alfie Loyola MD Nurse Practitioner Active St art: December 22, 2024 Dr. Danny Prescott MD Nurse Practitioner Active S tart: December 22, 2024 Dr. Jagruti Bunch MD Nurse Practitioner Active Start: December 22, 2024 Dr. Renee Hernandez MD Nurse Practitioner Active Start: December 22, 2024 Dr. Danyell Yang MD Nurse Practitioner Active Start: December 22, 2024 Dr. Clemente Chao MD Nurse Practitioner Active Start: December 22, 2024 Dr. Charles Carrington MD Nurse Practitioner Active Start: December 22, 2024 Dr. Jesus Sheffield MD Nurse Practitioner Active Start: December 22, 2024 Dr. Tyrell Vasquez , DO Nurse Practitioner Active Start: December 22, 2024 Dr. Kelly Mix MD Nurse Practitioner Active St art: December 22, 2024 Dr. Fabiola Markham MD Nurse Practitioner Active Start: December 22, 2024 Dr. Scooby Beasley DO Nurse Practitioner Active Start: December 22, 2024 Dr. Varinder Medel MD Nurse Practitioner Active Start: December 22, 2024 Dr. Leno Scherer MD Nurse Practitioner Active Start: December 22, 2024 Dr. Eric Gutierrez DO Nurse Practitioner Active Start: December 22, 2024 Dr. Zechariah Plasencia DO Nurse Practitioner Active Start: December 22, 2024 Dr. Adeline Rivera MD Attending physician Active Start: December 22, 2024 Team Status: Active Member Role/Relationship Status Dates Dr. Dedrick Alexander MD Attending physician Active Start: December 22, 2024 Dr. Zechariah Plasencia DO Referring Provider Active Start: December 22, 2024 Team Status: Inactive Member Role/Relationship Status Dates Dr. Zechariah Siddiqui MD Primary care physician Active Start: March 03, 2025 End: March 03, 2025 Dr. Zechariah Siddiqui MD Referring Provider Active St art: March 03, 2025 End: March 03, 2025 Dr. Basil Hunter MD Attending physician Active Start: March 03, 2025 End: March 03, 2025 Team Status: Inactive Member Role/Relationship Status Dates Dr. Zechariah Siddiqui MD Primary care physician Active Start: March 28, 2025 End: March 28, 2025 Dr. Basil Hunter MD Attending physician Active Start: March 28, 2025 End: March 28, 2025 Dr. Basil Hunter MD Referring Provider Active Start: March 28, 2025 End: March 28, 2025 Team Status: Active Member Role/Relationship Status Dates Dr. Zechariah Siddiqui MD Primary care physician Active Start: March 28, 2025 Dr. Zechariah Kline MD Attending physician Active Start: March 28, 2025 Dr. Basil Hunter MD Referring Provider Active Start: March 28, 2025 Team Status: Inactive Member Role/Relationship Status Dates Dr. Zechariah Siddiqui MD Primary care physician Active Start: April 06, 2025 End: April 06, 2025 Dr. Basil Hunter MD Attending physician Active Start: April 06, 2025 End: April 06, 2025 Dr. Basil Hunter MD Referring Provider Active Start: April 06, 2025 End: April 06, 2025 Team Status: Active Member Role/Relationship Status Dates Dr. Zechariah Siddiqui MD Primary care physician Active Start: April 06, 2025 Dr. Eric Buenrostro MD Attending physician Active Start: April 06, 2025 Team Status: Inactive Member Role/Relationship Status Dates Dr. Zechariah Siddiqui MD Primary care physician Active Start: March 03, 2025 End: March 03, 2025 Dr. Zechariah Siddiqui MD Referring Provider Active St art: March 03, 2025 End: March 03, 2025 Dr. Basil Hunter MD Attending physician Active Start: March 03, 2025 End: March 03, 2025 Team Status: Inactive Member Role/Relationship Status Dates Dr. Zechariah Siddiqui MD Primary care physician Active Start: March 28, 2025 End: March 28, 2025 Dr. Basil Hunter MD Attending physician Active Start: March 28, 2025 End: March 28, 2025 Dr. Basil Hunter MD Referring Provider Active Start: March 28, 2025 End: March 28, 2025 Team Status: Active Member Role/Relationship Status Dates Dr. Zechariah Siddiqui MD Primary care physician Active Start: March 28, 2025 Dr. Zechariah Kline MD Attending physician Active Start: March 28, 2025 Dr. Basil Hunter MD Referring Provider Active Start: March 28, 2025 Team Status: Inactive Member Role/Relationship Status Dates Dr. Zechariah Siddiqui MD Primary care physician Active Start: April 06, 2025 End: April 06, 2025 Dr. Basil Hunter MD Attending physician Active Start: April 06, 2025 End: April 06, 2025 Dr. Basil Hunter MD Referring Provider Active Start: April 06, 2025 End: April 06, 2025 Team Status: Active Member Role/Relationship Status Dates Dr. Zechariah Siddiqui MD Primary care physician Active Start: April 06, 2025 Dr. Eric Buenrostro MD Attending physician Active Start: April 06, 2025 Team Status: Inactive Member Role/Relationship Status Dates Dr. Zechariah Siddiqui MD Primary care physician Active Start: May 06, 2025 End: May 06, 2025 IRA Joyner Attending physician Active Sta rt: May 06, 2025 End: May 06, 2025 Dr. Basil Hunter MD Referring Provider Active Start: May 06, 2025 End: May 06, 2025 (unrecognized sect ion and content) No Status Records FoundNo Status Records FoundNo Status Records Found INFORMATION SOURCE (unrecogn ized section and content) DATE CREATED AUTHOR 08/03/2022 [facility] DATE CREATED AUTHOR AUTHOR'S ORGANIZ ATION 02/10/2025 [facility] DATE CREATED AUTHOR AUTHOR'S ORGANIZ ATION 05/10/2025 [facility] Scheduled Active and Recently Administ ered Medications (unrecognized section and content) Medication Order 01/05/2025 01/06/2025 01/07/2025 Acetaminophen (TYLENOL) tablet 650 mg 650 mg, Oral, EVERY 8 HOURS, First dose on Fri12/24/24 at 1400, Until Discontinued, Maximum dose of acetaminophen is 4000 mg from all sources in 24 hours. 0529 (Given - Provider: Lesa Barboza RN)1333 (Given - Provider: Meghan Beltran Mba, RN)210 (Given - Provider: Lesa Barboza RN) 0538 (Given - Provider: Zhang Zelaya, RN)1352 (Given - Provider: Meghan Beltran Mba, RN)212 (Given - Provider: Rhiannon Doshi, RN) 0606 (Given - Provider: Rhiannon Doshi, RN)1256 (Given - Provider: Bianka Ann, SEKOU)214 (Given - Provider: Rhiannon Doshi, RN) AMIOdarone (PACERONE) tablet 200 mg 200 mg, Oral, DAILY, First dose on Fri12/31/24 at 0945, Until Discontinued 0814 (Given - Provider: Meghan Beltran Mba, SEKOU) 0837 (Given - Provider: Meghan Beltran Mba, RN) 0816 (Given - Provider: Bianka Ann RN) apixaban (ELIQUIS) tablet 5 mg 5 mg, Oral, EVERY 12 HOURS, First dose on Fri01/03/25 at 0900, Until Discontinued, Due to the rapid onset of action of apixaban, no overlap is needed with other anticoagulants (e.g. enoxaparin, heparin)., Indications: Atrial Fibrillation 0813 (Given - Provider: Meghan Beltran Mba, SEKOU)2104 (Given - Provider: Lesa Barboza RN) 0837 (Given - Provider: Meghan Beltran Mba, SEKOU)2128 (Given - Provider: Rhiannon Doshi, SEKOU) 0816 (Given - Provider: Bianka Ann, SEKOU)2141 (Given - Provider: Rhiannon Doshi RN) budesonide-glycopyrrolate -formoterol (BREZTRI) 160-9-4.8 MCG/ACT inhaler 1 puff 1 puff, Inhalation, 2 TIMES DAILY, First dose (after last modification) on Fri01/04/25 at 1115, Until Discontinued 0821 (Given - Provider: Carmelo Kevin RCP)2100 (Given - Provider: Margarita Bear RCP) 0857 (Given - Provider: Mey Moya RCP)2259 (Not Given - Provider: Darling Sharp RCP - Reason: RT not available) 0624 (Given - Provider: Zabrina Quevedo RCP)2208 (Not Given - Provider: Prince Aries RCP - Reason: Not in room) Ciprofloxacin (CIPRO) tablet 500 mg (COMPLETED) 500 mg, Oral, EVERY 12 HOURS LATE AM & PM, 8 doses, First dose on Fri01/04/25 at 1000, Last dose on Fri01/07/25 at 2200, Administer on an empty stomach. Avoid antacid, iron, dairy or sucralfate administration for 1 hour before and 2 hours after dose. If on continuous tube feeding, hold tube feeding for 1 hour before and 2 hours after medication administration. 1130 (Given - Provider: Meghan Beltran Mba, RN)2105 (Given - Provider: Lesa Barboza RN) 1018 (Given - Provider: Meghan Beltran Mba, RN)212 (Given - Provider: Rhiannon Doshi RN) 0816 (Given - Provider: Bianka Ann RN)214 (Given - Provider: Rhiannon Doshi, SEKOU) Gabapentin (NEURONTIN) capsule 200 mg 200 mg, Oral, 3 TIMES DAILY, First dose on Fri12/24/24 at 1000, Until Discontinued 0814 (Given - Provider: Meghan Beltran Mba, RN)1334 (Given - Provider: Meghan Beltran Mba, RN)2105 (Given - Provider: Lesa Barboza RN) 0837 (Given - Provider: Meghan Beltran Mba, RN)1353 (Given - Provider: Meghan Beltran Mba, RN)212 (Given - Provider: Rhiannon Doshi RN) 0816 (Given - Provider: Bianka Ann RN)1255 (Given - Provider: Bianka Ann RN)214 (Given - Provider: Rhiannon Doshi, SEKOU) Insulin regular (HUMULIN R;NOVOLIN R) injection(Linked Group 1) Subcutaneous, EVERY 6 HOURS, First dose on Fri12/24/24 at 0600, Until Discontinued, Correction factor parameters most appropriate for NPO or tube feeding patients: Blood glucose under 60 = call H.O.; 151 - 200 = 2 units; 201 - 250 = 4 units; 251 - 300 = 6 units; 301 - 350 = 8 units; 351 - 400 = 10 units; Over 400 = call H.O. An initial vial will be sent from the pharmacy without prompting. Replacement vials require a MAR request when needed. Call pharmacy to coordinate expedited delivery if an emergent dose is needed for hyperglycemia treatment. 0040 (Not Given - Provider: Lesa Barboza RN - Reason: Order Parameters not met)0557 (Not Given - Provider: Lesa Barboza RN - Reason: Order Parameters not met)1156 (Not Given - Provider: Meghan Beltran Mba, RN - Reason: Order Parameters not met)1816 (Not Given - Provider: Meghan Beltran Mba, RN - Reason: Order Parameters not met)2359 (Not Given - Provider: Zhang Zelaya RN - Reason: Order Parameters not met) 0547 (Not Given - Provider: Zhang Zelaya RN - Reason: Order Parameters not met)1209 (Not Given - Provider: Meghan Beltran Mba, RN - Reason: Order Parameters not met)1805 (Not Given - Provider: Meghan Beltran Mba, RN - Reason: Order Parameters not met) 0002 (Not Given - Provider: Rhiannon Doshi RN - Reason: Order Parameters not met)0606 (Not Given - Provider: Rhiannon Doshi RN - Reason: Order Parameters not met)1300 (Not Given - Provider: Bianka Ann RN - Reason: Other)1813 (Not Given - Provider: Bianka Ann RN - Reason: Other) iohexol (OMNIPAQUE) 350 MG/ML injection 1-171 mL (COMPLETED) 1-171 mL, Intravenous, ONCE, 1 dose, On Fri01/07/25 at 1145, Extravasation Risk, CT Procedure 1150 (Given - Radiology - Provider: Diane Shelton) Ipratropium (ATROVENT) 0.03 % nasal spray 2 spray 2 spray, Nasal, 2 TIMES DAILY, First dose on Mary 12/23/24 at 0900, Until Discontinued 0814 (Given - Provider: Meghan Beltran Mba, RN)1635 (Given - Provider: Meghan Beltran Mba, RN) 0842 (Given - Provider: Meghan Beltran Mba, RN)1612 (Given - Provider: Meghan Beltran Mba, RN) 1052 (Not Given - Provider: Bianka Ann RN - Reason: Other)1705 (Not Given - Provider: Bianka Ann RN - Reason: Other) Lactated ringers IV solution 500 mL (COMPLETED) 500 mL, Intravenous, ONCE, 1 dose, On Fri01/05/25 at 1930, Fluid Bolus 1901 ($$New Bag$$ - Provider: Meghan Beltran Mba, RN)191 (Rate/Dose Verify - Provider: Meghan Beltran Mba, RN)1911 (Rate/Dose Change - Provider: Meghan Beltran Mba, RN)1912 (Rate/Dose Verify - Provider: Meghan Beltran Mba, RN)2036 (Stopped - Provider: Lesa Barboza RN) lidocaine 4 % patch 1 patch 1 patch, Transdermal, Administer over 12 Hours, EVERY 24 HOURS, First dose on Fri01/02/25 at 1030, Until Discontinued, Apply to abdomen. 0040 (Patch Removed - Provider: Lesa Barboza RN)1134 (Not Given - Provider: Meghan Beltran Mba, RN - Reason: Patient/family refused) 1019 (Not Given - Provider: Meghan Beltran Mba, RN - Reason: Order Parameters not met) 1007 (Not Given - Provider: Bianka Ann RN - Reason: Patient/family refused) metoprolol (LOPRESSOR) injection 5 mg (COMPLETED) 5 mg, Intravenous, ONCE, 1 dose, On Fri01/05/25 at 1415 1333 (Given - Provider: Meghan Beltran Mba, SEKOU) Metoprolol (LOPRESSOR) tablet 25 mg (CANCELED) 25 mg, Oral, EVERY 12 HOURS, First dose on Fri12/31/24 at 0915, Until Discontinued 08 (Given - Provider: Meghan Beltran Mba, SEKOU) Metoprolol (LOPRESSOR) tablet 50 mg 50 mg, Oral, EVERY 12 HOURS, First dose (after last modification) on Fri01/05/25 at 2100, Until Discontinued 2104 (Given - Provider: Lesa Barboza RN) 0836 (Given - Provider: Meghan Beltran Mba, SEKOU)2128 (Given - Provider: Rhiannon Doshi, SEKOU) 0816 (Given - Provider: Bianka Ann RN)2141 (Given - Provider: Rhiannon Doshi, SEKOU) metroNIDAZOLE (FLAGYL) tablet 500 mg (COMPLETED) 500 mg, Oral, EVERY 8 HOURS, 12 doses, First dose on Fri01/04/25 at 0745, Last dose on Fri01/07/25 at 2200 0529 (Given - Provider: Lesa Barboza RN)1334 (Given - Provider: Meghan Beltran Mba, SEKOU)210 (Given - Provider: Lesa Barboza RN) 0538 (Given - Provider: Zhang Zelaya RN)1352 (Given - Provider: Meghan Beltran Mba, SEKOU)2128 (Given - Provider: Rhiannon Brownsberger, RN) 0606 (Given - Provider: Rhiannon Doshi, RN)1256 (Given - Provider: Bianka Ann, RN)2143 (Given - Provider: Rhiannon Doshi, SKEOU) Naloxone (NARCAN) injection 0.1 mg(Linked Group 2) 0.1 mg, Intravenous, SEE ADMIN INSTRUCTIONS, Starting on Fri12/24/24 at 0831, Until 01/08/25 at 0054, If RR </= 7 per min and difficult to arouse give naloxone 0.1 mg q 2 mins until RR > 8/min and/or drowsiness abates. Contact provider. If no response is noted after 2 doses, consider other causes of respiratory depression. Naloxone (NARCAN) injection 0.4 mg(Linked Group 2) 0.4 mg, Intravenous, SEE ADMIN INSTRUCTIONS, Starting on Fri12/24/24 at 0831, Until 01/08/25 at 0054, If patient APNEIC and difficult to arouse: Give naloxone 0.4 mg q2 minutes until RR> 8/min and call a 'code blue'. If no response is noted after 2 doses, consider other causes of respiratory depression. Pantoprazole (PROTONIX) tablet DR 40 mg 40 mg, Oral, DAILY, First dose on Fri12/31/24 at 0945, Until Discontinued, Swallow whole; do not crush or chew., Indications: Inpt Stress Ulcer Prophylaxis 0814 (Given - Provider: Meghan Beltran Mba, SEKOU) 0837 (Given - Provider: Meghan Beltran Mba, SEKOU) 0816 (Given - Provider: Bianka Ann, SEKOU) Continuous Medication Order 01/05/2025 01/06/2025 01/07/2025 Lactated ringers IV solution (CANCELED) Intravenous, at 50 mL/hr, CONTINUOUS, Starting on Mary 01/06/25 at 1215, Until Fri01/07/25 at 1604 1244 ($$New Bag$$ - Provider: Meghan Beltran Mba, RN)1647 (Rate/Dose Verify - Provider: Meghan Beltran Mba, SEKOU)1726 (Rate/Dose Verify - Provider: Meghan Beltran Mba, SEKOU)1944 (Rate/Dose Verify - Provider: Rhiannon Doshi, SEKOU)2132 (Stopped - Provider: Rhiannon Doshi RN)2132 ($$New Bag$$ - Provider: Rhiannon Doshi, RN) 0143 (Rate/Dose Verify - Provider: Rhiannon Doshi RN)0326 (Paused - Provider: Rhiannon Doshi, RN)0331 (Restarted - Provider: Rhiannon Doshi, RN)0341 (Rate/Dose Verify - Provider: Rhiannon Doshi, RN)0650 (Rate/Dose Verify - Provider: Rhiannon Doshi RN)1100 (Rate/Dose Verify - Provider: Bianka Ann RN)1135 (Paused - Provider: Bianka Ann RN)1239 (Restarted - Provider: Bianka Ann RN)1542 (Stopped - Provider: Bianka Ann RN)1729 (Not Given - Provider: Bianka Ann RN - Reason: Other) Parenteral Nutrition Custom +/- Lipids (Central TPN) () Taper down for: Not Ordered 0229 (Rate/Dose Verify - Provider: Lesa Barboza RN)0631 (Rate/Dose Verify - Provider: Lesa Barboza RN)1123 (Rate/Dose Verify - Provider: Meghan Beltran Mba, RN)1548 (Rate/Dose Verify - Provider: Meghan Beltran Mba, SEKOU)1912 (Rate/Dose Verify - Provider: Meghan Beltran Mba, SEKOU)1913 (Rate/Dose Verify - Provider: Meghan Beltran Mba, RN)2300 (Stopped - Provider: Zhang Zelaya RN) PRN Medication Order 01/05/2025 01/06/2025 01/07/2025 Albuterol (PROVENTIL) (2.5 MG/3ML) 0.083% inhalation solution 2.5 mg 2.5 mg, Nebulization, EVERY 6 HOURS NEEDED, Starting on Fri12/22/24 at 2344, Until 01/08/25 at 0054, Shortness of Breath, Cough, Breathing Treatment Cyclobenzaprine (FLEXERIL) tablet 5 mg 5 mg, Oral, 3 TIMES DAILY NEEDED, Starting on Fri01/04/25 at 0743, Until 01/08/25 at 0054, Muscle spasms, Mild Pain, Moderate Pain Dextrose 10% IV solution Intravenous, at 50 mL/hr, ADMINISTER DIRECTED, Starting on Fri12/24/24 at 0954, Until 01/08/25 at 0054, Other, For unplanned/abrupt TPN discontinuation ONLY, For unplanned/abrupt TPN discontinuation ONLY, initiate dextrose 10% (D10W) at 50 mL/hr for 2 hrs. Notify primary team per order. Dextrose 50% injection 7.5-25 g(Linked Group 1) 7.5-25 g, Intravenous, ADMINISTER DIRECTED, Starting on Fri12/24/24 at 0355, Until 01/08/25 at 0054, Blood glucose <80 mg/dL, For patients who are not alert, are NPO, or are on IV insulin infusion administer as directed per Hypoglycemia in Non- Adults Clinical Practice Guideline. For Blood Glucose: 60-79 mg/dL administer 7.5 gm (15ml); 45-59 mg/dL administer 12.5 gm (25ml); less than 45mg/dL administer 25gm (50ml). ++ If additional dextrose 50% needed, contact pharmacy or obtain from [employer] cart ++ 0066 (Given - Provider: Bianka Ann, SEKOU) glucose (GLUTOSE) 40 % oral gel 1-2 Tube(Linked Group 1) 1-2 Tube, Oral, ADMINISTER DIRECTED, Starting on Fri12/24/24 at 0355, Until 01/08/25 at 0054, Blood glucose <80 mg/dL, For patients who are alert, able to tolerate PO intake and with intact cognitive status administer as directed per Hypoglycemia in Non- Adults Clinical Practice Guideline. For Blood Glucose: 60-79 mg/dL administer 1 tube; 45-59 mg/dl administer 1.5 tubes; less than 45 mg/dL administer 2 tubes. Each tube of 37.5g delivers 15g of carbohydrate. metoprolol (LOPRESSOR) injection 5 mg 5 mg, Intravenous, EVERY 6 HOURS NEEDED, Starting on Fri12/29/24 at 1035, Until 01/08/25 at 0054, Other, sustain HR above 120 for >5min 1434 (Given - Provider: Meghan Beltran Mba, RN)2114 (Given - Provider: Lesa Barboza RN) 2354 (Given - Provider: Rhiannon Doshi RN) Ondansetron (ZOFRAN) tablet 4 mg(Linked Group 3) 4 mg, Oral, EVERY 6 HOURS NEEDED, Starting on Fri12/22/24 at 2326, Until 01/08/25 at 0054, Nausea / Vomiting Ondansetron 4mg/2ml (ZOFRAN) injection 4 mg(Linked Group 3) 4 mg, Intravenous, EVERY 6 HOURS NEEDED, Starting on Fri12/22/24 at 2326, Until 01/08/25 at 0054, Nausea / Vomiting oxyCODONE (ROXICODONE) tablet 5 mg(Linked Group 4) 5 mg, Oral, EVERY 4 HOURS NEEDED, Starting on Fri12/27/24 at 1217, Until 01/08/25 at 0054, Moderate Pain, Severe Pain, Use as initial dose. Higher dose may be administered if lower dose was previously documented as ineffective and did not result in adverse effects (RR<10, decrease in level of consciousness). 0845 (Given - Provider: Meghan Beltran Mba, RN - Comment: Pre-medicated for wound vac) 0900 (Given - Provider: Bianka Ann RN - Comment: pre-med for wound vac change) Prochlorperazine (COMPAZINE) injection 10 mg(Linked Group 5) 10 mg, Intravenous, EVERY 4 HOURS NEEDED, Starting on Fri12/24/24 at 0831, Until 01/08/25 at 0054, Nausea / Vomiting, 2nd line, Maximum 40mg/day. For IV route: Give undiluted by slow IV push at a rate of 5 mg/min. Prochlorperazine (COMPAZINE) tablet 10 mg(Linked Group 5) 10 mg, Oral, EVERY 4 HOURS NEEDED, Starting on Fri12/24/24 at 0831, Until 01/08/25 at 0054, Nausea / Vomiting, 2nd line, Max dose 40 mg/day. Sodium chloride (PF) 0.9 % injection 1-100 mL (COMPLETED) 1-100 mL, Intravenous, ONCE NEEDED, 1 dose, Starting on Fri01/07/25 at 1131, Until Fri01/07/25 at 1152, Flush, CT Procedure 1152 (Given - Provider: Diane Shelton) Sodium chloride 0.9% IV solution 250 mL Intravenous, at 20 mL/hr, NEEDED, Starting on Fri12/22/24 at 2325, Until 01/08/25 at 0054, Carrier Fluid - See Admin. Inst, 250mL 0.9NS to be used as carrier fluid for intermittent small volume or piggyback medication administration as needed. Infusion rate of the carrier fluid should be set at 20 mL/hr unless the rate as the intermittent medication is less than 20 mL/hr. For intermittent medications with a rate less than 20 mL/hr set the carrier fluid at that rate of the intermittent or piggy back medication. Sodium chloride 0.9% IV solution 250 mL Intravenous, at 20 mL/hr, NEEDED, Starting on Fri12/24/24 at 0355, Until 01/08/25 at 0054, Carrier Fluid - See Admin. Inst, 250mL 0.9NS to be used as carrier fluid for intermittent small volume or piggyback medication administration as needed. Infusion rate of the carrier fluid should be set at 20 mL/hr unless the rate as the intermittent medication is less than 20 mL/hr. For intermittent medications with a rate less than 20 mL/hr set the carrier fluid at that rate of the intermittent or piggy back medication. Linked Groups Order Group 1: Insulin regular (HUMULIN R;NOVOLIN R) injectionJump to med Subcutaneous, EVERY 6 HOURS, First dose on Fri12/24/24 at 0600, Until Discontinued, Correction factor parameters most appropriate for NPO or tube feeding patients: Blood glucose under 60 = call H.O.; 151 - 200 = 2 units; 201 - 250 = 4 units; 251 - 300 = 6 units; 301 - 350 = 8 units; 351 - 400 = 10 units; Over 400 = call H.O. An initial vial will be sent from the pharmacy without prompting. Replacement vials require a MAR request when needed. Call pharmacy to coordinate expedited delivery if an emergent dose is needed for hyperglycemia treatment. And BLOOD GLUCOSE (POC DEVICE) (CANCELED) Routine, EVERY 6 HOURS, First occurrence on Fri12/24/24 at 0600, If any Blood Glucose (POC) is greater than 300mg/dl, then repeat Blood Glucose (POC) in 2 hours. If the initial blood glucose was greater than 300mg/dl and if second blood glucose is greater than 200mg/dl, then notify Second Rigger. And BLOOD GLUCOSE (POC DEVICE) UDPRN (CANCELED) Routine, PRN, Starting on Fri12/24/24 at 0355, Until Specified, For all Blood Glucose LESS THAN 80 mg/dL, treat per Hypoglycemia in Non- Adults Clinical Practice Guideline (CPG) and recheck glucose 15 min after treatment. Repeat per CPG until glucose GREATER THAN 80 mg/dL. Once glucose IS GREATER THAN 80 mg/dL, recheck Blood Glucose every 1 hour x2, then resume as previously ordered. For Blood Glucose LESS THAN 80 mg/dL on admission OR LESS than 45 mg/dL at any time, obtain POC Blood Glucose every 4 hours for 6 occurrences AFTER treating per CPG. Obtain blood glucose for symptoms of hypoglycemia: sweating, shaking, fatigue, rapid pulse, slow thinking & dizziness. Notify physician w/results. Obtain blood glucose for symptoms of hyperglycemia: excessive thirst, blurred vision, excessive urination & tiredness. Notify physician w/results. If patient NPO, obtain POC Blood Glucose prior to administration of any insulin products. And COMMUNICATION ORDER FOR NURSING CARE: For Blood Glucose LESS THAN 80 mg/dl (CANCELED) Routine, CONTINUOUS, Starting on Fri12/24/24 at 0356, Until Specified, For Blood Glucose LESS THAN 80 mg/dl, follow Hypoglycemia in Non- Adults Clinical Practice Guideline (CPG) And Dextrose 50% injection 7.5-25 gJump to med 7.5-25 g, Intravenous, ADMINISTER DIRECTED, Starting on Fri12/24/24 at 0355, Until 01/08/25 at 0054, Blood glucose <80 mg/dL, For patients who are not alert, are NPO, or are on IV insulin infusion administer as directed per Hypoglycemia in Non- Adults Clinical Practice Guideline. For Blood Glucose: 60-79 mg/dL administer 7.5 gm (15ml); 45-59 mg/dL administer 12.5 gm (25ml); less than 45mg/dL administer 25gm (50ml). ++ If additional dextrose 50% needed, contact pharmacy or obtain from [facility] cart ++ And glucose (GLUTOSE) 40 % oral gel 1-2 TubeJump to med 1-2 Tube, Oral, ADMINISTER DIRECTED, Starting on Fri12/24/24 at 0355, Until 01/08/25 at 0054, Blood glucose <80 mg/dL, For patients who are alert, able to tolerate PO intake and with intact cognitive status administer as directed per Hypoglycemia in Non- Adults Clinical Practice Guideline. For Blood Glucose: 60-79 mg/dL administer 1 tube; 45-59 mg/dl administer 1.5 tubes; less than 45 mg/dL administer 2 tubes. Each tube of 37.5g delivers 15g of carbohydrate. And NOTIFY PHYSICIAN, Blood Glucose LESS THAN 80 mg/dl (CANCELED) Routine, CONTINUOUS, Starting on Fri12/24/24 at 0356, Until Specified, Who to Notify: Second Rigger, For all Blood Glucose LESS THAN 80 mg/dl, notify Second Rigger after treatment per Hypoglycemia in Non- Adults Clinical Practice Guideline Group 2: Naloxone (NARCAN) injection 0.1 mgJump to med 0.1 mg, Intravenous, SEE ADMIN INSTRUCTIONS, Starting on Fri12/24/24 at 0831, Until 01/08/25 at 0054, If RR </= 7 per min and difficult to arouse give naloxone 0.1 mg q 2 mins until RR > 8/min and/or drowsiness abates. Contact provider. If no response is noted after 2 doses, consider other causes of respiratory depression. Or Naloxone (NARCAN) injection 0.4 mgJump to med 0.4 mg, Intravenous, SEE ADMIN INSTRUCTIONS, Starting on Fri12/24/24 at 0831, Until 01/08/25 at 0054, If patient APNEIC and difficult to arouse: Give naloxone 0.4 mg q2 minutes until RR> 8/min and call a 'code blue'. If no response is noted after 2 doses, consider other causes of respiratory depression. Group 3: Ondansetron 4mg/2ml (ZOFRAN) injection 4 mgJump to med 4 mg, Intravenous, EVERY 6 HOURS NEEDED, Starting on Fri12/22/24 at 2326, Until 01/08/25 at 0054, Nausea / Vomiting Or Ondansetron (ZOFRAN) tablet 4 mgJump to med 4 mg, Oral, EVERY 6 HOURS NEEDED, Starting on Fri12/22/24 at 2326, Until 01/08/25 at 0054, Nausea / Vomiting Group 4: oxyCODONE (ROXICODONE) tablet 5 mgJump to med 5 mg, Oral, EVERY 4 HOURS NEEDED, Starting on Fri25 at 1217, Until 01/08/25 at 0054, Moderate Pain, Severe Pain, Use as initial dose. Higher dose may be administered if lower dose was previously documented as ineffective and did not result in adverse effects (RR<10, decrease in level of consciousness). Or oxyCODONE HCl (ROXICODONE) tablet 10 mg (CANCELED) 10 mg, Oral, EVERY 4 HOURS NEEDED, Starting on 12/27/24 at 1217, Until 01/02/25 at 0531, Moderate Pain, Severe Pain, Higher dose may be administered if lower dose was previously documented as ineffective and did not result in adverse effects (RR<10, decrease in level of consciousness). Decrease back to lower dose if patient has adverse effects, or no PRN used in previous 12 hours. Group 5: Prochlorperazine (COMPAZINE) injection 10 mgJump to med 10 mg, Intravenous, EVERY 4 HOURS NEEDED, Starting on Fri12/24/24 at 0831, Until 01/08/25 at 0054, Nausea / Vomiting, 2nd line, Maximum 40mg/day. For IV route: Give undiluted by slow IV push at a rate of 5 mg/min. Or Prochlorperazine (COMPAZINE) tablet 10 mgJump to med 10 mg, Oral, EVERY 4 HOURS NEEDED, Starting on Fri12/24/24 at 0831, Until 01/08/25 at 0054, Nausea / Vomiting, 2nd line, Max dose 40 mg/day. FOR RECORDS PERTAINING TO PATIENTS WHO ARE OR HAVE BEEN ENROLLED IN A CHEMICAL DEPENDENCY/SUBSTANCEABUSE PROGRAM, SOME INFORMATION MAY BE OMITTED. This clinical summary was aggregated from multiple sources. Caution should be exercised in using it in the provision of clinical care. This summary normalizes information from multiple sources, and as a consequence, information in this document may materially change the coding, format and clinical context of patient data. In addition, data may be omitted in some cases. CLINICAL DECISIONS SHOULD BE BASED ON THE PRIMARY CLINICAL RECORDS. [employer] [email or web address]. provides no warranty or guarantee of the accuracy or completeness of information in this document.
[2025-06-03 19:10] LABS: AST(SGOT) 30 U/L (<=37); Alanine Aminotransfer ALT/SGPT 25 U/L (<=46); Albumin, Serum 4.4 g/dL (3.4-4.8); Alkaline Phosphatase 51 U/L (40-129); Anion Gap 12 (5-15); BUN 31 mg/dL (4-19); BUN/Creat Ratio 16.5 RATIO (10-20); Calcium,Total 9.3 mg/dL (7.6-11.0); Carbon Dioxide 24.1 mmol/L (21.0-32.0); Chloride 105 mmol/L (98-108); Ferritin 36 ng/mL (37-417); Globulin 3.5 g/dL (2.2-4.2); Glucose 93 mg/dL (70-99); Potassium 4.1 mmol/L (3.3-5.1); Vitamin B12 450 pg/mL (180-914)
[2025-06-03 19:26] LABS: Iron 40 ug/dL (65-175); Iron Binding Capacity,Total 370 ug/dL (250-450); Iron Binding Capacity,Unsat 330 ug/dL (228-428)
[2025-06-03 19:38] LABS: FOLATES,SERUM (FOLIC ACID) 28.10 ng/mL (4.60-34.80)
== END | disposition home or self-care (01) ==
PROVIDERS: PCP Family Medicine; Referring Provider Family Medicine; Visit Provider Family Medicine
DX: K50.90 Crohn's disease, unspecified, without complications (principal); I48.91 Unspecified atrial fibrillation
CPT/HCPCS: 36415; 80053; 82607; 82728; 82746; 83540; 83550; 84443; 85025; 85652